=== PATIENT | female | born 1940 | race Caucasian/White ===

== ENCOUNTER → 2020-05-09 09:33 | Outpatient (CLI) | payer MEDICARE, OTHER, SELFPAY ==
--- NOTE | 2020-05-09 09:39 | US_ITS ---
STUDY: ABDOMINAL ULTRASOUND - RIGHT UPPER QUADRANT REASON FOR VISIT: Female, 79 years old ELEVATED LIVER ENZYMES TECHNIQUE: Ultrasound evaluation of the right upper quadrant was performed with real-time and static hdz-scale imaging. TECHNICAL QUALITY: Adequate. COMPARISON: Comparison is made with prior study dated 06/03/2014. FINDINGS: Liver: The liver measures 17.6 cm. There is increased echogenicity consistent with fatty infiltration. The bile ducts are within normal limits. There is hepatic color flow. The direction of portal flow is hepatopetal. There is no demonstrated mass lesion. Gallbladder: The patient is status post cholecystectomy. Common Bile Duct (C.B.D.): The common bile duct measures 6.7 mm. Pancreas: Normal size of the head, body and tail of the pancreas. There is increased echogenicity of the pancreas. There is no demonstrated pancreatic mass or cyst. Right Kidney: Normal size of the right kidney. The right kidney measures 10.9 cm x 4.4 cm x 2.9 cm. Normal renal cortex. The right cortex measures 1.0 cm. There is no demonstrated renal mass or cyst. There is no right hydronephrosis. US/Liver IMPRESSION: Diffuse fatty infiltration of the liver. Status post cholecystectomy. Electronically Signed: Brennen Blunt, at 15:23 EST , Service support ,
== END ==
PROVIDERS: PCP Family Medicine; Referring Provider Physician Assistant; Visit Provider Physician Assistant
DX: R74.01 Elevation of levels of liver transaminase levels (principal); E11.65 Type 2 diabetes mellitus with hyperglycemia
CPT/HCPCS: 76705

== ENCOUNTER → 2024-05-20 | Outpatient (CLI) | payer MEDICARE, SELFPAY ==
--- NOTE | 2024-05-20 10:30 | RAD_ITS ---
STUDY: X-RAY - LEFT KNEE REASON FOR EXAM: Female, 83 years old. PAIN IN LEFT KNEE TECHNIQUE: 3 view(s) of the knee. COMPARISON: None. FINDINGS: Normal visualized distal femur. Normal visualized proximal tibia and fibula. Normal proximal tibiofibular articulation. There is mild degenerative arthrosis of the medial femorotibial compartment. There is mild degenerative arthrosis of the lateral femorotibial compartment. Normal patellofemoral articulation. 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 The soft tissue structures are unremarkable. RAD/Knee 3 Views IMPRESSION: CPPD with mild arthrosis. Electronically Signed: Chalo Herring MD at 17:25 EST ,
== END | disposition home or self-care (01) ==
PROVIDERS: PCP Family Medicine; Referring Provider Family Medicine; Visit Provider Family Medicine
DX: M25.562 Pain in left knee (principal)
CPT/HCPCS: 73562

== ENCOUNTER 2024-08-31 19:26 | Inpatient (IN) | payer MEDICARE, SELFPAY ==
[2024-08-31] VITALS (9 sets, daily range): BP systolic 138–270; BP diastolic 50–151; PULSE 59–80; RESP 15–23; TEMP 36.6; O2SAT 97–99; BMI 39.4
--- NOTE | 2024-08-31 20:30 | EX.ED.DYSGE1 ---
HPI History of Present Illness Chief Complaint: Dizziness [facility] Medical History (Updated 08/31/24 @ 20:30 by Annika Melton) GERD (gastroesophageal reflux disease) Hypertension Diabetes Home Medications ?Medication ?Instructions ?Recorded ?Last Taken ?Type insulin glargine 100 unit/mL (3 8 unit subcut QHS 08/31/24 Unknown History mL) subcutaneous pen (Lantus Solostar U-100 Insulin) metoprolol succinate 50 mg 100 mg PO DAILY 08/31/24 Unknown History tablet,extended release 24 hr Allergy/AdvReac Type Severity Reaction Status Date / Time No Known Allergies Allergy Verified 08/31/24 19:32 Social History Smoking Status: Never smoker EXAM Physical Exam Const Vital Signs: 08/31/24 19:27 08/31/24 20:55 08/31/24 21:27 Temperature 97.8 F Temperature Source Oral Pulse Rate 66 65 Respiratory Rate 16 Blood Pressure 224/66 H 202/70 H Blood Pressure Mean 118 114 Pulse Ox 98 97 Oxygen Delivery Method Room Air Room Air 08/31/24 22:11 08/31/24 22:20 08/31/24 22:31 Temperature Temperature Source Pulse Rate 59 L 68 80 Respiratory Rate 18 18 15 Blood Pressure 270/51 H 266/71 H 168/151 H Blood Pressure Mean 124 136 156 Pulse Ox 97 99 97 Oxygen Delivery Method Room Air 08/31/24 22:33 Temperature Temperature Source Pulse Rate Respiratory Rate Blood Pressure 187/78 H Blood Pressure Mean 114 Pulse Ox Oxygen Delivery Method MDM MDM MDM Narrative Medical decision making narrative: HISTORY OF PRESENT ILLNESS: Chief complaint: Dizziness 83-year-old female history of diabetes and hypertension presents with dizziness. Also lightheaded/dizzy and diffusely weak. Notes this began earlier today. No falls or trauma. No chest pain. No shortness of breath. No palpitations. No focal weakness, slurred speech, facial drooping, incoordination. She felt she has not passed out. REVIEW OF SYSTEMS: Pertinent positives: Dizziness Pertinent negatives: Chest pain, shortness of breath, palpitation PHYSICAL EXAM: Nursing triage notes reviewed, Vital signs reviewed Constitutional: please see mdm HENT: MMM Eyes: Pupils equal round and reactive to light, Extraocular muscles intact Neck: No stridor, no JVD, full neck ROM Lungs: Clear to auscultation, No wheezing or rales. No increased work of breathing, no conversational dyspnea, no accessory muscle use, no nasal flaring. No respiratory distress noted Heart: Regular rate and rhythm, No murmurs, No rubs and No gallops, 2+ distal pulses (radial, femoral, posterior tibial) in all extremities Abdomen: Soft, there is no tenderness, rigidity, rebound or guarding, no obvious peritoneal signs, no palpable pulsatile abdominal masses, no auscultated abdominal bruit : No CVAT Extremities: No edema Neuro: Alert and oriented x3, neuro exam at baseline, cranial nerves II through XII are intact. No pain with extraocular muscle movement. There is negative test of skew. 5 of 5 strength in upper and lower extremities in flexion extension. Intact sensation to light touch in upper and lower extremity dermatomes. No truncal or extremity ataxia. No dysdiadochokinesia. 2+ reflexes in upper and lower extremities. No meningeal signs. Negative Babinski. NIH of 0. Skin: No rash or lesions noted MEDICAL DECISION MAKING: Chief Complaint: please see HPI External records reviewed: Reviewed prior imaging studies Factors affecting care: Hypertension, type 2 diabetes Social determinants of health: none History obtained from others: none Consults: none [facility] Narrative: Patient was initially hypertensive blood pressure 224/66 otherwise afebrile and nontoxic-appearing. Initial exam without focal neurologic deficits. No focal cardiopulmonary abnormalities I considered the following differential diagnosis: Endorgan damage of elevated blood pressure, ICH, ACS, arrhythmia, anemia, kidney dysfunction, CVA Patient's blood pressure continued to elevate with systolics as high as 266 so she was given 20 mg IV hydralazine given heart rate was initially in the 60s. After IV hydralazine patient blood pressure improved to 168 systolic. Patient noted she felt weak or different. Daughter noted some transient slurred speech which resolved upon my assessment. Repeat neurologic exam remained intact NIH was 0. ALL IMAGES (IF OBTAINED) HAVE BEEN PERSONALLY REVIEWED AND INTERPRETED BY MYSELF. EKG with normal sinus rhythm rate 64, normal axis, normal intervals, no STEMI CBC without leukocytosis, severe anemia, no thrombocytopenia. BMP without evidence of significant electrolyte abnormalities, no anion gap, no acute kidney injury. LFTs show no evidence of hepatobiliary pathology. High-sensitivity troponin is negative, no evidence of myocardial ischemia BNP within normal limit suggestive no heart failure CT scan without contrast showed no acute intracranial normality. The synthesis of the patient's history, physical exam, labs images suggest poorly controlled hypertension likely resulting in the patient's presentation. Decided to admit the patient given concern for poorly controlled blood pressure at home, symptomatic hypertension, hypertensive urgency as well as transient slurred speech and concern for TIA versus CVA. Discussed with hospitalist The patient and/or family, caregivers express understanding. The patient and/or family, caregivers agrees with the plan. Shared decision making: I will have a discussion with the patient and or visitors regarding risk/benefits of further testing or admission. They will be made aware of of the risk/benefits inherent in this decision they will be given the opportunity to voice understanding. Total critical care time today provided was at least 35 minutes. This excludes separately billable procedures. Critical care time (if documented) is secondary to the patient having high probability of clinically significant/life threatening deterioration in the patient's condition which required my urgent intervention. Impression: 1. Dizziness 2. Poorly controlled hypertension 3. Hypertensive Urgency Dispo: Admit This note was generated with [employer] dictation software. It may contain incorrect words, spelling, and punctuation that were not noted in review of the chart prior to signing. Lab Data Labs: Laboratory Results - last 24 hr 08/31/24 21:00 WBC 11.0 RBC 4.27 Hgb 13.1 Hct 38.5 MCV 90.2 MCH 30.7 MCHC 34.0 RDW Std Deviation 47.4 H RDW Coeff of Óscar 14.3 Plt Count 296 MPV 10.7 Immature Gran % (Auto) 0.500 Neut % (Auto) 61.5 Lymph % (Auto) 24.9 [place] % (Auto) 9.1 Eos % (Auto) 3.2 Baso % (Auto) 0.8 Absolute Neuts (auto) 6.8 Absolute Lymphs (auto) 2.74 Nucleated RBC % 0 Sodium 136 Potassium 4.2 Chloride 103 Carbon Dioxide 20.7 L Anion Gap 12 BUN 19 Creatinine 0.99 Estim Creat Clear Calc 39.57 L Est GFR (MDRD) Non-Af 57 L BUN/Creatinine Ratio 18.8 Glucose 155 H Calcium 9.1 Total Bilirubin 0.26 AST 21 ALT 26 Alkaline Phosphatase 123 H Troponin T High Sens 12 NT pro BNP II 245 Total Protein 6.6 Albumin 3.8 Globulin 2.7 Albumin/Globulin Ratio 1.4 Radiography Diagnostic Testing: Clinical Impression(s) from Imaging Studies Brain CT 08/31/24 20:46 IMPRESSION: No acute intracranial abnormality. Chronic microvascular ischemia and involutional changes. Reading Location: [facility] Discharge Plan Triage Chief Complaint: Dizziness ED Provider: Murphy Ramírez Dx/Rx/DC Orders Prescriptions: No Action metoprolol succinate 50 mg tablet extended release 24 hr 100 mg PO DAILY insulin glargine [Lantus Solostar U-100 Insulin] 100 unit/mL (3 mL) insulin pen 8 unit subcut [facility] Primary Care Provider: Kurt Vasquez Referrals: Kurt Vasquez MD [Primary Care Provider] - Print Language: Azeri
--- NOTE | 2024-08-31 20:46 | CT_ITS ---
PROCEDURE: BRAIN/HEAD WITHOUT CONTRAST 08/31/2024 REASON FOR EXAM: DIZZINESS, ELEVATED BP TECHNIQUE: Head CT without intravenous contrast. Coronal and Sagittal reconstruction series were provided. One or more dose reduction techniques were used (e.g., Automated exposure control, adjustment of the mA and/or kV according to patient size, use of iterative reconstruction technique. COMPARISON: None FINDINGS: No acute intracranial hemorrhage, mass, mass effect, midline shift or pathologic extra-axial fluid collection. Mild parenchymal atrophy with commensurate increase in CSF containing spaces. Patchy white matter hypodensities, patient demographics favor chronic microvascular ischemic changes. Paranasal sinuses and mastoid air cells are clear. The calvarium is grossly intact. CT/Brain/Head without Contrast IMPRESSION: No acute intracranial abnormality. Chronic microvascular ischemia and involutional changes. Reading [facility]
--- NOTE | 2024-08-31 20:46 | EKG12_ITS ---
Test Reason : DYSRHYTHMIA Blood Pressure : */* mmHG Vent. Rate : 64 BPM Atrial Rate : 64 BPM P-R Int : 186 ms QRS Dur : 76 ms QT Int : 406 ms P-R-T Axes : -3 37 59 degrees QTcB Int : 418 ms Normal sinus rhythm Normal ECG Confirmed by LINDA PENN, HERNANDO ([id number]), desk editor LAURY PERSAUD ([id number]) on 09/02/2024 8:34:45 AM Referred By: Confirmed By: HERNANDO MCKEON MD
[2024-08-31 21:10] LABS: Absolute Lymphocyte Count 2.74 X10^3/uL (0.83-4.51); Absolute Neutrophil Count 6.8 X10^3/uL (2.0-7.7); Basophil# 0.09 X10^3/uL; Basophil% 0.8 % (0-1); Eosinophil# 0.35 X10^3/uL; Eosinophils% 3.2 % (0-5); Hematocrit 38.5 % (37-47); Hemoglobin 13.1 g/dL (12.0-15.0); Lymphocyte # 2.74 X10^3/ul (0.83-4.51); Lymphocyte % 24.9 % (19-41); Mean Corpuscular Hgb 30.7 pg (27.0-32.0); Mean Corpuscular Volume 90.2 fL (81-99); Mean Platelet Vol. 10.7 fl (6.2-12.0); Monocyte% 9.1 % (0-10); NRBC Flagged by Analyzer 0 % (0-5); Neutrophil # 6.77 X10^3/uL (2.7-7.7); Neutrophil % 61.5 % (47-70); Platelet Count 296 K/mm3 (150-450); RBC Distribution Width CV 14.3 % (11.6-14.6); RBC Distribution Width SD 47.4 fl (35.1-43.9); Red Blood Count 4.27 M/mm3 (4.2-5.4)
[2024-08-31 21:49] LABS: ALB/GLOB Ratio 1.4 RATIO (0.9-2.4); AST(SGOT) 21 U/L (<=31); Alanine Aminotransfer ALT/SGPT 26 U/L (<=34); Albumin, Serum 3.8 g/dL (3.4-4.8); Alkaline Phosphatase 123 U/L (35-104); Anion Gap 12 (5-15); BUN 19 mg/dL (4-19); BUN/Creat Ratio 18.8 RATIO (10-20); Calcium,Total 9.1 mg/dL (7.6-11.0); Carbon Dioxide 20.7 mmol/L (21.0-32.0); Chloride 103 mmol/L (98-108); Creatinine, Serum 0.99 mg/dL (0.70-1.20); EST Glomerular Filtration Rate 57 (>60); Estimated Creatinine Clearance 39.57 ml/min (50-250); Globulin 2.7 g/dL (2.2-4.2); Glucose 155 mg/dL (70-99); Potassium 4.2 mmol/L (3.3-5.1); Pro- Brain NATRIURETIC PEPTIDE 245 pg/mL (<=1800); Protein, Total 6.6 g/dL (5.9-8.4); Sodium Level 136 mmol/L (133-145); Total Bilirubin 0.26 mg/dL (0.00-1.30)
[2024-08-31 22:10] LABS: Troponin T High Sensitivity 12 ng/L (<=14)
[2024-08-31] MEDS: hydrALAZINE 20 MG/ML Vial IV (22:14)
[2024-08-31 22:54] LABS: Bedside Glucose 141 mg/dL (74-106)
[2024-08-31 22:55] LABS: Mucous, Urine 0 SEEN /hpf (<or=2+); Red Blood Cells-Urine 0 SEEN /hpf (0-5)
[2024-08-31 22:59] LABS: Color, Urine Yellow (Yellow); Glucose, Dipstick Normal (Normal); Ketone-Dipstick Negative (Negative); Leukocyte Esterase-Dipstick Negative /ul (Negative); Nitrite-Dipstick Negative (Negative); Occult Blood-Urine Negative /ul (Negative); Protein-Dipstick Negative (Negative); Urine Bilirubin Dipstick Negative (Negative); Urine Clarity Clear (Clear); Urine Urobilinogen Normal (Normal)
[2024-08-31 23:05] LABS: Bacteria 2+ /hpf (None Seen); Squamous Epithelial Cells - UA 5-10 SEEN /hpf (5-10); White Blood Cells 0-5 SEEN /hpf (0-5)
--- NOTE | 2024-08-31 23:05 | PCM.HP.STD ---
[facility] - General General Date of Service: 08/31/24 Chief Complaint: Dizziness and Highly Elevated Blood Pressure. HPI Narrative BLAYNE MOODY, is a 83 F with a past medical history of essential hypertension; poorly-controlled on metoprolol, obesity; BMI of 39.5 this admission, DM-2; of unknown control on insulin glargine 8U at bedtime, GERD; currently not on treatment and OA who presents to [facility] ER complaining of dizziness and highly elevated blood pressure. Ms. Moody reports her acute symptoms began a few hours prior to admission with a gradual-onset of progressively worsening dizziness and lightheadedness. She also admits to diffuse generalized weakness with patient recording her blood pressure up to 270/51 mmHg so she decided to come in for further evaluation and treatment. She states that her blood pressure has been poorly controlled for weeks with recent increase in her dose of metoprolol without subsequent improvement. She denies associated headache, focal neurologic deficits, truncal ataxia, slurred speech, chest pain, palpitations, rash, other recent illness, near-syncope, syncope or fall. In the ER she was diagnosed with Hypertensive Emergency and she was subsequently treated with 1 dose of 20 mg of IV hydralazine with subsequent slurred speech and lethargy after her blood pressure dropped from 168 mmHg systolic to 138/50 mmHg suspicious for possible 'watershed infarct' due to rapid decrease in blood pressure. She was then admitted to the PCU under observation status for ongoing care for a stay that is expected to be less than 2 midnights. [facility] Medical History GERD (gastroesophageal reflux disease) Hypertension Diabetes Home Medications ?Medication ?Instructions ?Recorded ?Last Taken ?Type insulin glargine 100 unit/mL (3 8 unit subcut QHS 08/31/24 Unknown History mL) subcutaneous pen (Lantus Solostar U-100 Insulin) metoprolol succinate 50 mg 100 mg PO DAILY 08/31/24 Unknown History tablet,extended release 24 hr Allergy/AdvReac Type Severity Reaction Status Date / Time No Known Allergies Allergy Verified 08/31/24 19:32 Social History Smoking Status: Never smoker ROS ROS Narrative Review of Systems: Constitutional: Patient admits to lightheadedness, dizziness and diffuse generalized weakness but she denies fever or chills. Eyes: Patient denies changes in vision or discharge from eyes. ENT: Patient denies runny nose, sore throat or ear pain. Resp: Patient denies shortness of breath or cough. CV: Patient denies chest pain, palpitations, heart racing or lower extremity edema. GI: Patient denies abdominal pain, nausea, vomiting, diarrhea or constipation. : Patient denies dysuria, hematuria or urinary frequency. MSK: Patient admits to generalized weakness but she denies arthralgias or myalgias. Skin: Patient denies rash, abscess, wounds or jaundice. Psych: Patient denies symptoms of uncontrolled depression or anxiety. Neuro: Patient admits to dizziness, lightheadedness and generalized weakness with subsequent slurred speech after rapid decrease in blood pressure as per HPI. She denies headache or paresthesias. Allergies: Patient denies lip swelling, tongue swelling or urticaria. Hematology: Patient denies easy bleeding or easy bruisability. Endocrinology: Patient denies polyuria, polydipsia, polyphagia or heat/cold intolerance. 14 point ROS otherwise negative except for positives noted above in HPI. Vital Signs Vital Signs Vital Signs: 08/31/24 19:27 08/31/24 20:55 08/31/24 21:27 Temperature 97.8 F Temperature Source Oral Pulse Rate 66 65 Respiratory Rate 16 Blood Pressure 224/66 H 202/70 H Blood Pressure Mean 118 114 Pulse Ox 98 97 Oxygen Delivery Method Room Air Room Air 08/31/24 22:11 08/31/24 22:20 08/31/24 22:31 Temperature Temperature Source Pulse Rate 59 L 68 80 Respiratory Rate 18 18 15 Blood Pressure 270/51 H 266/71 H 168/151 H Blood Pressure Mean 124 136 156 Pulse Ox 97 99 97 Oxygen Delivery Method Room Air 08/31/24 22:33 08/31/24 22:50 08/31/24 23:04 Temperature 97.8 F Temperature Source Pulse Rate 80 79 Respiratory Rate 15 23 H Blood Pressure 187/78 H 187/78 H 138/50 H Blood Pressure Mean 114 114 79 Pulse Ox 97 Oxygen Delivery Method Weight Weight: 176 lb 2.389 oz Body Mass Index (BMI) 39.4 Results Medical Records Data Attestation: I reviewed the patient's medical records Lab / Micro Data Attestation: I reviewed the patient's lab results. 08/31/24 21:00 08/31/24 21:00 Labs: Laboratory Results - last 24 hr 08/31/24 21:00: WBC 11.0, RBC 4.27, Hgb 13.1, Hct 38.5, MCV 90.2, MCH 30.7, MCHC 34.0, RDW Std Deviation 47.4 H, RDW Coeff of Óscar 14.3, Plt Count 296, MPV 10.7, Immature Gran % (Auto) 0.500, Neut % (Auto) 61.5, Lymph % (Auto) 24.9, [place] % (Auto) 9.1, Eos % (Auto) 3.2, Baso % (Auto) 0.8, Absolute Neuts (auto) 6.8, Absolute Lymphs (auto) 2.74, Nucleated RBC % 0, Sodium 136, Potassium 4.2, Chloride 103, Carbon Dioxide 20.7 L, Anion Gap 12, BUN 19, Creatinine 0.99, Estim Creat Clear Calc 39.57 L, Est GFR (MDRD) Non-Af 57 L, BUN/Creatinine Ratio 18.8, Glucose 155 H, Calcium 9.1, Total Bilirubin 0.26, AST 21, ALT 26, Alkaline Phosphatase 123 H, Troponin T High Sens 12, NT pro BNP II 245, Total Protein 6.6, Albumin 3.8, Globulin 2.7, Albumin/Globulin Ratio 1.4 08/31/24 22:36: POC Glucose 141 H 08/31/24 22:51: Urine Color Yellow, Urine Clarity Clear, Urine pH 6.0, Ur Specific [place] 1.010, Urine Protein Negative, Urine Glucose (UA) Normal, Urine Ketones Negative, Urine Occult Blood Negative, Urine Nitrite Negative, Urine Bilirubin Negative, Urine Urobilinogen Normal, Ur Leukocyte Esterase Negative, Urine RBC 0 SEEN, Urine WBC 0-5 SEEN, Ur Squamous Epith Cells 5-10 SEEN, Urine Bacteria 2+, Urine Mucus 0 SEEN Imaging Radiology Impression Brain CT 08/31/24 20:46 IMPRESSION: No acute intracranial abnormality. Chronic microvascular ischemia and involutional changes. [facility] Assessment & Plan Assessment/Plan (1) Hypertensive emergency: (2) Dizziness: (3) Generalized weakness: (4) Slurred speech: (5) TIA on medication: (6) Poorly-controlled hypertension: (7) Obesity (BMI 30-39.9): (8) Diabetes mellitus, type 2: QUALIFIERS: Diabetes mellitus complication detail: with other neurological complication Diabetes mellitus complication status: with neurologic complications Diabetes mellitus terminal superintendent insulin use: with terminal superintendent use Qualified Code(s): E11.49 - Type 2 diabetes mellitus with other diabetic neurological complication; Z79.4 - terminal superintendent (current) use of insulin PLAN: Plan 1. Hypertensive Emergency; evidenced by elevated blood pressure of 270/51 mmHg noted shortly after admission with associated dizziness and diffuse generalized weakness - Admit to PCU under observation status. Serialize troponin. Check echocardiogram to evaluate LVEF. Check TSH, UDS, B12, Folate and Lipid Profile. Give meclizine as needed dizziness. Give acetaminophen as needed for pain or fever. 2. Possible TIA vs 'watershed infarct' with slurred speech after rapid drop in blood pressure complicating #1 - Check MRI of the brain to evaluate for possible CVA. Check carotid Doppler to evaluate for stenosis. Start treatment with baby aspirin and statin. Finally, we will consult [facility] to see this patient for further recommendations with help appreciated in advance. 3. Essential Hypertension; poorly-controlled on metoprolol as outpatient compounding #1 & #2 - Noted with patient potentially having secondary hypertension which will need to be worked up if her blood pressure remains difficult to control. 4. Obesity; BMI of 39.5 this admission adding to the burden of disease outlined from #1 - #3 - Weight loss will be recommended. We will screen for suspected IRVING. Check TSH. This complicates her case and may hamper recovery. 5. DM-2; of unknown control on insulin glargine 8U at bedtime - Cut insulin glargine to 5 units SQ at bedtime. Give ADA diet plus lowest-intensity SSI. Check hemoglobin A1c to objectively evaluate quality of diabetic control. 6. GERD; currently not on treatment - Start PPI if symptoms develop. 7. OA - Give acetaminophen prn. 8. DVT prophylaxis - Heparin 5,000U sq BID plus SCD's. Total time: Approximately (but not less than) 70 minutes. Charges/Coding Visit Charges OBSV E&M: 50007 Observ/hosp same date L2
--- NOTE | 2024-08-31 23:41 | ECHOCS_ITS ---
Reason For Study Reason For Study: HTN Procedure This was a 2D Doppler, Color Flow transthoracic echocardiogram. The study was technically difficult. Contrast injection was performed. Exam performed portable in patient room. Left Ventricle Normal LV size. Left ventricular systolic function is normal. The left ventricular ejection fraction is 70 %. Stage 1 diastolic dysfunction. No regional wall motion abnormalities noted. Right Ventricle Normal RV size. Normal systolic function. Atria Normal left atrium. Normal right atrium. Mitral Valve Normal mitral valve. Tricuspid Valve Normal tricuspid valve. Aortic Valve Trisinus/trileaflet aortic valve. Mild (1+) aortic valve insufficiency. Pulmonic Valve Normal pulmonic valve. Great Vessels Normal aortic root. The pulmonary artery is normal size. Inferior vena cava collapse with respiration. Pericardium/Pleural No pericardial effusion. Medication Diluted definity 1ml given slow IV push to enhance endocardial definition. MMode/2D Measurements & Calculations LVIDd: 4.5 cm IVSd: 0.83 cm LAV(MOD- bp): 31.5 ml LVIDs: 2.7 cm LVPWd: 0.87 cm RVDd: 3.4 cm FS: 41.0 % LAV(MOD- bp) Indexed: 18.9 ml/m2 LAV(MOD- sp2): 33.9 ml LAV(MOD- sp4): 29.4 ml SV(MOD-sp4): 49.4 ml SV(sp4- el): 52.2 ml LVAd ap4: 26.5 cm2 LVLd ap4: 7.4 cm SI(MOD-sp4): 29.6 ml/m2 EDV(MOD-sp4): 76.7 ml EDV(sp4-el): 80.1 ml LVAs ap4: 13.2 cm2 LVLs ap4: 5.3 cm ESV(MOD-sp4): 27.3 ml ESV(sp4-el): 27.9 ml EF(MOD-sp4): 64.5 % EF(sp4-el): 65.2 % LA dimension(2D): 3.8 cm LA A4 area: 12.9 cm2 RA A4 area: 12.6 cm2 Time Measurements MV dec time: 0.32 sec Doppler Measurements & Calculations MV E max edison: 65.7 cm/sec Lat Peak E' Edison: 8.5 cm/sec Med Peak E' Edison: 7.9 cm/sec MV A max edison: 110.1 cm/sec E/E' lat: 7.7 E/E' med: 8.4 MV E/A: 0.60 MV V2 max: 116.5 cm/sec MV P1/2t max edison: 83.5 cm/sec Ao V2 max: 133.4 cm/sec MV max P.4 mmHg MV P1/2t: 95.5 msec Ao max P.1 mmHg MV V2 mean: 57.3 cm/sec MV dec slope: 256.1 cm/sec2 MV mean P.6 mmHg MV V2 VTI: 29.4 cm MVA(P1/2t): 2.3 cm2 AI max edison: 403.8 cm/sec LV V1 max: 110.3 cm/sec AI max P.2 mmHg LV V1 max P.9 mmHg AI dec slope: 233.7 cm/sec2 LV V1 mean P.9 mmHg AI P1/2t: 506.0 msec LV V1 mean: 81.6 cm/sec LV V1 VTI: 27.2 cm ECHO/Echo Complete W/ Contrast Interpretation Summary Normal LV size. Left ventricular systolic function is normal. The left ventricular ejection fraction is 70 %. Stage 1 diastolic dysfunction. Mild (1+) aortic valve insufficiency. Contrast injection was performed. Ordering Physician: Severiano Ibarra Performed By: Jer Valenzuela RCS
--- NOTE | 2024-08-31 23:41 | MRI_ITS ---
PROCEDURE: BRAIN WITHOUT CONTRAST (MRIBR), 09/01/2024 REASON FOR EXAM: HYPERTENSIVE EMERGENCY WITH DIZZINESS COMPARISON: CT 08/31/2024 TECHNIQUE: Multisequence multiplanar MRI brain was performed without intravenous contrast. Contrast: None. FINDINGS: Cerebrum: Punctate focus of restricted diffusion likely an acute infarct in the high RIGHT frontal cortex with associated T2/FLAIR signal abnormality. No appreciable intracranial hemorrhage or mass. Mild presumed chronic microvascular ischemic white matter changes. Moderate diffuse cerebral volume loss. Cerebellum: Unremarkable. Brainstem: Unremarkable. Ventricles/extra-axial spaces: Age-appropriate appearance. Major flow voids: Grossly unremarkable within limits of nondedicated technique. Paranasal sinuses: Unremarkable. Scalp/calvarium: Hyperostosis frontalis. Orbits: Bilateral cataract surgery. Other: None. MRI/Brain without Contrast IMPRESSION: 1. Punctate high RIGHT frontal acute infarct. No mass-effect or appreciable he morrhagic conversion. 2. Additional description as above. Reading Location: [id number]
--- NOTE | 2024-08-31 23:41 | CDU_ITS ---
Reason For Study Reason For Study: Stenosis Rt. Velocities/BP Lt. Velocities/BP Prox CCA 84.7/7.9 cm/sec. Prox CCA 111.4/12.7 cm/sec. Mid CCA 63.4/13.0 cm/sec. Mid CCA 90.7/18.2 cm/sec. Dist CCA 48.6/11.8 cm/sec. Dist CCA 64.3/13.8 cm/sec. Prox ICA 529.1/160.7 cm/sec. Prox ICA 110.4/13.8 cm/sec. Mid ICA 177.7/12.9 cm/sec. Mid ICA 79.0/23.7 cm/sec. Dist ICA 82.7/27.3 cm/sec. Dist ICA 59.3/13.8 cm/sec. Rt. ICA/CCA = 8.3. Lt. ICA/CCA = 1.2. Prox ECA 188.2/4.1 cm/sec. Prox ECA 241.3/0.0 cm/sec. Rt. Vert. 61.2/11.6 cm/sec. Lt. Vert. 70.0/9.7 cm/sec. Right Extracranial There is heterogeneous, smooth atherosclerotic plaque noted in the right common carotid artery. There is heterogeneous, irregular atherosclerotic plaque noted in the right internal carotid artery. There is heterogeneous, irregular atherosclerotic plaque noted in the right external carotid artery. Antegrade flow is noted in the right vertebral artery. Left Extracranial There is heterogeneous, smooth atherosclerotic plaque noted in the left common carotid artery. There is heterogeneous, irregular atherosclerotic plaque noted in the left internal carotid artery. There is heterogeneous, irregular atherosclerotic plaque noted in the left external carotid artery. Antegrade flow is noted in the left vertebral artery. Procedure Carotid Duplex 35298. This is a Carotid Duplex examination using B-mode, color flow and specral Doppler. Exam performed portable in patient room. Preliminary report given to MARITZA Alvarez Charge Nurse. VL/Carotid Duplex Ultrasound Interpretation Summary Severe (>70%) stenosis right extracranial internal carotid. Mild (<50%) stenosis left extracranial internal carotid. Patent and antegrade vertebrals bilaterally. Ordering Physician: Severiano Ibarra Performed By: Na Isaac RVT
[2024-08-31 23:49] LABS: Troponin T High Sens 2 HR 13 ng/L (<=14)
[2024-09-01] VITALS (10 sets, daily range): BP systolic 145–222; BP diastolic 43–87; PULSE 64–115; RESP 16–20; TEMP 36.1–36.9; O2SAT 95–99; BMI 38.9
[2024-09-01 00:21] LABS: Hemoglobin A1c 7.8 % (<=5.6)
[2024-09-01] MEDS: Aspirin 81 MG TAB.CHEW PO ×2 (00:54→08:58)
[2024-09-01] MEDS: Atorvastatin Calcium 40 MG Tablet PO ×2 (00:54→23:02)
[2024-09-01 01:11] LABS: Alcohol, Blood (Medical)-Serum < 10.1 mg/dL (<=10.0)
[2024-09-01 01:39] LABS: Troponin T High Sens 4 HR 13 ng/L (<=14)
[2024-09-01 01:53] LABS: Amphetamine Urine NEGATIVE (<1000 ng/mL); Barbiturate Urine NEGATIVE (< 200 ng/mL); Benzodiazepine Urine NEGATIVE (< 200 ng/mL); Buprenorphine Urine NEGATIVE (< 200 ng/mL); Cocaine Urine NEGATIVE (< 300 ng/mL); Fentanyl, Urine NEGATIVE; Methadone Urine NEGATIVE (< 300 ng/mL); Opiates Urine NEGATIVE (< 300 ng/mL); Oxycodone, Urine NEGATIVE (< 100 ng/mL); PCP Urine NEGATIVE (< 25 ng/mL); THC Urine NEGATIVE (< 50 ng/mL)
[2024-09-01 07:00] LABS: Bedside Glucose 144 mg/dL (74-106)
[2024-09-01 07:19] LABS: Vitamin B12 421 pg/mL (180-914)
[2024-09-01 07:47] LABS: Cholesterol 205 mg/dL (<=200); High Density Lipoprotein 47 mg/dL; Low Density Lipoprotein Calc. 123 mg/dL; Triglycerides 177 mg/dL; Very Low Density Lipoprotein 35 mg/dL (5-40); cholesterol:hdl ratio screen 4.38
--- NOTE | 2024-09-01 08:14 | PCM.PN.HOSP ---
Reason for Visit Reason for Visit: Dizziness and Highly Elevated Blood Pressure Subjective Subjective Mrs. Underwood is an 83-year-old white female who presents emergency department at [facility] on 08/31/2024 with a chief complaint of dizziness and elevated blood pressure. Symptoms were acute and started a few hours prior to presentation and were gradual onset. She also admitted to generalized diffuse weakness. Blood pressure at home was 270/51 so she decided come to emergency department for further evaluation. She stated on presentation her blood pressure has been poorly controlled for weeks with recent increased doses of her metoprolol but she is not on any other medications besides her metoprolol. She had no focal deficits on presentation. Vital signs emergency department on presentation showed a temperature 97.8, heart rate was 68, respiratory rate was 16, blood pressure was 224/66 and pulse ox was 98% room air. Her CBC was unremarkable. Her chemistry panel was overtly unremarkable. Blood glucose was 155 and patient is a known diabetic. Hemoglobin A1c was 7.8. Liver functions were normal. Troponins were normal x 3. BNP was normal. Total cholesterol 205 with an LDL of 123 and HDL 47. B12, TSH, and folate were all within normal limits. CT of the brain on admission was unremarkable for any acute findings but did show chronic microvascular changes. With her blood pressure being markedly elevated and symptoms concerning to admitted with hypertensive emergency from stroke workup was pursued is after blood pressure cuff emergency department she developed some neurological changes. MRI of the brain was done after admission and showed a punctate high right frontal lobe infarct with no mass effect or appreciated hemorrhagic transformation. CTA was not obtained on admission and a carotid duplex was ordered. Carotid duplex showed severe (greater than 70%) stenosis in the right extracranial internal carotid artery and mild less than 50% stenosis in the left extracranial internal carotid artery with patent and antegrade flow in the vertebrals bilaterally. With the stroke finding on the right side and the carotid abnormalities on the right side vascular surgery was consulted and a CTA of the head neck was performed. Current recommendations include dual antiplatelet therapy with aspirin and Plavix and high intensity dose statin along with outpatient follow-up for possible intervention. This showed atherosclerotic calcification anterior and posterior intracranial circulation most prominent at the right ICA bifurcation with resultant luminal narrowing. Echocardiogram showed an EF of 70% with stage I diastolic dysfunction and mild aortic valve insufficiency. Patient states she feels so much better than she came in and she is at least 50% better if not more improved since presentation. No complaints at this time. We discussed CODE STATUS she desires not to be resuscitated in the event of arrest cardiac or pulmonary. Objective Data Objective Data Vital Signs: Vital Signs Temp Pulse Resp BP Pulse Ox O2 Del Method FiO2 98 F 66 16 159/43 H 98 Room Air 21 09/01/24 04:00 09/01/24 04:00 09/01/24 04:00 09/01/24 04:00 09/01/24 04:00 09/01/24 04:00 09/01/24 01:11 Oxygen Delivery Method Room Air Weight: 78.7 kg Body Mass Index (BMI) 38.9 Lab / Micro Data 08/31/24 21:00 08/31/24 21:00 Labs: Laboratory Results - last 24 hr 08/31/24 21:00: WBC 11.0, RBC 4.27, Hgb 13.1, Hct 38.5, MCV 90.2, MCH 30.7, MCHC 34.0, RDW Std Deviation 47.4 H, RDW Coeff of Óscar 14.3, Plt Count 296, MPV 10.7, Immature Gran % (Auto) 0.500, Neut % (Auto) 61.5, Lymph % (Auto) 24.9, [place] % (Auto) 9.1, Eos % (Auto) 3.2, Baso % (Auto) 0.8, Absolute Neuts (auto) 6.8, Absolute Lymphs (auto) 2.74, Nucleated RBC % 0, Sodium 136, Potassium 4.2, Chloride 103, Carbon Dioxide 20.7 L, Anion Gap 12, BUN 19, Creatinine 0.99, Estim Creat Clear Calc 39.57 L, Est GFR (MDRD) Non-Af 57 L, BUN/Creatinine Ratio 18.8, Glucose 155 H, Hemoglobin A1c 7.8, Calcium 9.1, Total Bilirubin 0.26, AST 21, ALT 26, Alkaline Phosphatase 123 H, Troponin T High Sens 12, NT pro BNP II 245, Total Protein 6.6, Albumin 3.8, Globulin 2.7, Albumin/Globulin Ratio 1.4 08/31/24 22:36: POC Glucose 141 H 08/31/24 22:51: Urine Color Yellow, Urine Clarity Clear, Urine pH 6.0, Ur Specific [place] 1.010, Urine Protein Negative, Urine Glucose (UA) Normal, Urine Ketones Negative, Urine Occult Blood Negative, Urine Nitrite Negative, Urine Bilirubin Negative, Urine Urobilinogen Normal, Ur Leukocyte Esterase Negative, Urine RBC 0 SEEN, Urine WBC 0-5 SEEN, Ur Squamous Epith Cells 5-10 SEEN, Urine Bacteria 2+, Urine Mucus 0 SEEN, Urine Opiates Screen NEGATIVE, U Buprenorphine Qual NEGATIVE, Ur Oxycodone Screen NEGATIVE, Urine Methadone Screen NEGATIVE, Urine Fentanyl Screen NEGATIVE, Ur Barbiturates Screen NEGATIVE, Ur Phencyclidine Scrn NEGATIVE, Ur Amphetamines Screen NEGATIVE, U Benzodiazepines Scrn NEGATIVE, Urine Cocaine Screen NEGATIVE, U Cannabinoids Screen NEGATIVE 08/31/24 23:14: Ethyl Alcohol < 10.1 08/31/24 23:19: Troponin T Hi Sens 2 Hr 13, TSH 2.070 09/01/24 00:53: Troponin T Hi Sens 4Hr 13, Triglycerides Cancelled 09/01/24 00:53: Triglycerides Cancelled, Cholesterol Cancelled 09/01/24 00:53: Cholesterol Cancelled, LDL Cholesterol, Calc Cancelled 09/01/24 00:53: LDL Cholesterol, Calc Cancelled, VLDL Cholesterol Cancelled 09/01/24 00:53: VLDL Cholesterol Cancelled, HDL Cholesterol Cancelled 09/01/24 00:53: HDL Cholesterol Cancelled, Cholesterol/HDL Ratio Cancelled 09/01/24 00:53: Cholesterol/HDL Ratio Cancelled, Vitamin B12 Cancelled, Serum Folate 10.10 09/01/24 05:45: Triglycerides 177, Cholesterol 205 H, LDL Cholesterol, Calc 123, VLDL Cholesterol 35, HDL Cholesterol 47, Cholesterol/HDL Ratio 4.38, Vitamin B12 421 09/01/24 06:26: POC Glucose 144 H Radiography Diagnostic Testing: Radiology Impression Brain CT 08/31/24 20:46 IMPRESSION: No acute intracranial abnormality. Chronic microvascular ischemia and involutional changes. Reading Location: [facility] Physical Exam Const alert, oriented x3, no apparent distress and well nourished; Negative for average body habitus Constitutional Narrative: Very pleasant, obese, white female, sitting up in a chair at the bedside, family is at the bedside, patient appears comfortable, nontoxic HEENT head/scalp atraumatic and moist oral mucous membranes HEENT Narrative: Mallampati 3, no thrush Head and Scalp: normocephalic Eyes conjunctivae normal Eyes Narrative: No scleral icterus Neck supple Neck Narrative: Trachea midline Resp normal respiratory effort, no retractions, no use of accessory muscles and clear to auscultation bilaterally Auscultation: Negative for rales, rhonchi or wheezes Cardio regular rate, regular rhythm, S1 normal heart sound, S2 normal heart sound, no murmurs, no rub, no gallops and no clicks GI normal to inspection, nondistended, normoactive bowel sounds, soft to palpation and non-tender Extremity Extremity Narrative: Trace bilateral lower extremity edema, no cyanosis or clubbing, 2+ pedal and radial pulses Skin no jaundice, no petechiae and no mottling Neuro oriented x3, No no focal motor deficits and no sensory deficits noted Neuro Narrative: Mild left lower extremity weakness noted with a little bit of drift, upper extremities within normal limits, mild limb ataxia on the left Coordination / Balance: [id number] test normal; Negative for [id number] test normal Speech: speech normal Psych affect normal Psych Narrative: Very pleasant, interacts appropriately Assessment & Plan Assessment/Plan (1) CVA (cerebral vascular accident): PLAN: Plan Acute right frontal lobe stroke secondary to hypertensive emergency -Still allow for some permissive hypertension with goal blood pressure between 180 and 200. -Will start Coreg 12.5 mg daily as this should better regulate blood pressure than metoprolol -Add amlodipine 5 mg daily and continue to reassess -Continue aspirin 81 mg daily -Start Plavix 75 mg daily -Continue atorvastatin 40 mg daily -Hemoglobin A1c was 7.8 so we will increase basal insulin to 10 units and may need to consider oral agents with metformin at discharge -Total cholesterol is 205 with an LDL of 123 and HDL of 47 -PT/OT following -Consult vascular surgery due to significant right-sided carotid stenosis -Neurology is following and agrees with current plan Hypertensive emergency -Start Coreg 12.5 mg daily -Start amlodipine 5 mg daily -Blood pressure currently should be between 180 and 200 -PRNs available Hyperlipidemia -LDL is above goal of 70 -Current LDL is 123 -Statin initiated per stroke protocol Bilateral carotid artery stenosis right greater than left -Given right sided stroke and critical stenosis on the right vascular surgery consulted -Dual antiplatelet therapy -Statin -Outpatient referral for probable intervention in the future DM-2 -Hemoglobin A1c is 7.8 -Increase basal insulin to 10 units -Will likely start metformin 500 mg p.o. twice daily at discharge Obesity -BMI is 38.9 -Recommend weight loss Complicates treatment, prognosis, outcomes DVT prophylaxis -Continue subcu heparin twice daily CODE STATUS -After discussion with patient she would like to be DNR CCA with no intubation-order placed Charges/Coding Visit Charges Inpatient E&M: 38993 [facility] [[email or web address]] Hosp L3
[2024-09-01] MEDS: Heparin Injection (Vial) 5,000 UNIT/ML VIAL 5000 UNIT SC ×2 (08:58→23:02)
--- NOTE | 2024-09-01 13:53 | CASEMGMT ---
SW completed a PHQ9 with patient as she had a Stroke. Patient scored a 0 which indicates minimal depression. Patient denied any need for counseling resources. Mary CUETO
--- NOTE | 2024-09-01 14:00 | CT_ITS ---
PROCEDURE: CTA HEAD AND NECK W/ CONTRAST 09/01/2024 REASON FOR EXAM: CVA, R CAROTID STENOSIS TECHNIQUE: CTA imaging of the head and neck from the aortic arch to the skull vertex with intravenous contrast. Coronal and Sagittal reconstruction series were provided. 3D, 3D post processing, 3D reconstructions, Maximum intensity projection (MIPs) Volume rendering and Shaded surface rendering was provided. CONTRAST: Omnipaque 350 VOLUME: 100 mL Not Provided Gauge IV One or more dose reduction techniques were used (e.g., Automated exposure control, adjustment of the mA and/or kV according to patient size, use of iterative reconstruction technique). # of known CTs in the past 12 months: 0 # of known Cardiac Nuclear Medicine Studies in the past 12 months: 0 COMPARISON: None FINDINGS: Aortic Arch: Three-vessel arch branch anatomy. Atherosclerotic calcification of the aortic arch without hemodynamically significant stenosis. Brachiocephalic and Subclavians: Atherosclerotic calcification of the proximal brachiocephalic arteries, without hemodynamically significant stenosis. RIGHT Carotid: Right CCA: No significant atherosclerotic calcification Right ICA: [id number] atherosclerotic calcified and noncalcified plaque at the bifurcation and proximal cervical ICA (series 2 image 187) Maximum stenosis (NASCET): 65 % Right ECA: Unremarkable. LEFT Carotid: Left CCA: No significant atherosclerotic calcification. Left ICA: Mild calcified and noncalcified plaque at the bifurcation and proximal ICA without hemodynamically significant stenosis. Maximum stenosis (NASCET): 15 % Left ECA: Unremarkable. Vertebrals: Codominant. Arise from the subclavians. Both vertebrals form the basilar. RIGHT Vertebral: Unremarkable. LEFT Vertebral: Unremarkable. Anatomy: [place] anatomy is normal. Aneurysm or avm: No intracranial aneurysms or large vascular malformations are identified. Anterior cerebral arteries: Unremarkable: Middle cerebral arteries: Atherosclerotic calcification of the bilateral distal ICAs and carotid siphons, without hemodynamically significant stenosis. Mild focal stenosis at the proximal right M1 (series 2, image 327). Mild diffuse caliber left M1. No evidence of acute occlusion. No aneurysm. Basilar artery: Unremarkable. Posterior cerebral arteries: Unremarkable. Other major branches of the posterior circulation: Unremarkable. Major venous structures: Other findings: Neck: 3.5 cm inferior right thyroid lobe soft tissue mass (series 2, image 57). Lungs: Lung apices are clear. Bones: Multilevel degenerative changes of the cervicothoracic spine. CT/CTA Head AND Neck W/ Contrast IMPRESSION: Atherosclerotic calcification anterior and posterior intracranial circulation a s described above, most prominent at the right ICA bifurcation with resultant luminal narrowing. No evidence of acute occlusion, dissection or aneurysm Reading Location: [facility]
--- NOTE | 2024-09-01 14:27 | CON.PCM.SX_ITS ---
Assessment & Plan Assessment/Plan (1) CVA (cerebral vascular accident): (2) Stenosis of right carotid artery: PLAN: Plan R hemispheric infarct on MRI. Reviewed CTA images, R ICA 75% stenosis by NASCET which correlates to carotid duplex findings. Surgical intervention is recommended; given her stroke would plan to coordinate on an outpatient basis in the next 2-4 weeks. Will need to ensure that her hypertension is better controlled prior to surgical intervention. This was discussed with patient and her family at bedside and all questions/concerns were addressed. Recommend DAPT with ASA 81mg daily and Plavix 75mg daily. Recommend high- intensity statin. Plan for outpatient follow-up in the office next week. HPI Consult Data Date of Consult: 09/02/24 HPI Narrative HPI Narrative: BLAYNE MOODY, is a 83 F who presented to the [facility] ER after an episode of darkening of her vision (both eyes), presyncope, and feeling off; in the ER she was found to have hypertensive emergency with systolic BP as high as 266 mmHg. After receiving a dose of IV hydralazine patient's daughter observed an episode of slurred speech, patient reports this lasted less than an hour. She was admitted for stroke workup and BP management. She had Brain MRI which revealed acute punctate R frontal lobe infarct. She had carotid duplex which revealed R ICA stenosis >70% with max PSV in the proximal ICA 529/160 cm/s. Head and Neck CTA was then ordered. I saw patient resting in bed with multiple family members at bedside. She and they agreed that she is back to her baseline; no persistent slurred speech, no facial droop, moving all extremities, no vision changes, no sensory deficits. She denies any prior history of CVA or TIA. She also denies any history of CAD/CHF/prior PCI, COPD/asthma, CKD, prior vascular surgical interventions. [facility] Medical History GERD (gastroesophageal reflux disease) Hypertension Diabetes Home Medications ?Medication ?Instructions ?Recorded ?Last Taken ?Type insulin glargine 100 unit/mL (3 8 unit subcut QHS 01/17 Unknown History mL) subcutaneous pen (Lantus Solostar U-100 Insulin) metoprolol succinate 50 mg 100 mg PO DAILY 08/31/24 Un known History tablet,extended release 24 hr Allergy/AdvReac Type Severity Reaction Status Date / Time No Known Allergies Allergy Verified 08/31/24 19:32 Social History Smoking Status: Never smoker Physical Exam Const alert, oriented x3 and no apparent distress General Appearance: cooperative and comfortable HEENT normocephalic, head/scalp atraumatic and external nose normal Eyes EOMs intact bilaterally General Eye: normal appearance of both eyes Neck General: normal visual inspection and trachea midline Resp normal respiratory effort, no retractions and no use of accessory muscles Effort and Inspection: able to speak in complete sentences; Negative for labored, grunting or stridor Cardio regular rate and regular rhythm Extremity normal to inspection and no clubbing, cyanosis or edema Skin no rashes or lesions noted Trauma: no lacerations or abrasions Neuro oriented x3, CN's II-XII intact bilaterally, moves all extremities, no focal motor deficits and no sensory deficits noted Speech: speech normal Psych mental status grossly normal Appearance: grossly normal Attitude: calm and engaged Activity / Motor Behavior: appropriate eye contact Speech: normal speech Mood & Affect: euthymic mood Judgement: judgement good Lab / Micro Data 08/31/24 21:00 08/31/24 21:00 Labs: Laboratory Results - last 24 hr 08/31/24 21:00: WBC 11.0, RBC 4.27, Hgb 13.1, Hct 38.5, MCV 90.2, MCH 30.7, MCHC 34.0, RDW Std Deviation 47.4 H, RDW Coeff of Óscar 14.3, Plt Count 296, MPV 10.7, Immature Gran % (Auto) 0.500, Neut % (Auto) 61.5, Lymph % (Auto) 24.9, [place] % (Auto) 9.1, Eos % (Auto) 3.2, Baso % (Auto) 0.8, Absolute Neuts (auto) 6.8, Absolute Lymphs (auto) 2.74, Nucleated RBC % 0, Sodium 136, Potassium 4.2, Chloride 103, Carbon Dioxide 20.7 L, Anion Gap 12, BUN 19, Creatinine 0.99, E stim Creat Clear Calc 39.57 L, Est GFR (MDRD) Non-Af 57 L, BUN/Creatinine Ratio 18.8, Glucose 155 H, Hemoglobin A1c 7.8, Calcium 9.1, Total Bilirubin 0.26, AST 21, ALT 26, Alkaline Phosphatase 123 H, Troponin T High Sens 12, NT pro BNP II 245, Total Protein 6.6, Albumin 3.8, Globulin 2.7, Albumin/Globulin Ratio 1.4 08/31/24 22:36: POC Glucose 141 H 08/31/24 22:51: Urine Color Yellow, Urine Clarity Clear, Urine pH 6.0, Ur Specific [place] 1.010, Urine Protein Negative, Urine Glucose (UA) Normal, Urine Ketones Negative, Urine Occult Blood Negative, Urine Nitrite Negative, Urine Bilirubin Negative, Urine Urobilinogen Normal, Ur Leukocyte Esterase Negative, Urine RBC 0 SEEN, Urine WBC 0-5 SEEN, Ur Squamous Epith Cells 5-10 SEEN, Urine Bacteria 2+, Urine Mucus 0 SEEN, Urine Opiates Screen NEGATIVE, U Buprenorphine Qual NEGATIVE, Ur Oxycodone Screen NEGATIVE, Urine Methadone Screen NEGATIVE, Urine Fentanyl Screen NEGATIVE, Ur Barbiturates Screen NEGATIVE, Ur Phencyclidine Scrn NEGATIVE, Ur Amphetamines Screen NEGATIVE, U Benzodiazepines Scrn NEGATIVE, Urine Cocaine Screen NEGATIVE, U Cannabinoids Screen NEGATIVE 08/31/24 23:14: Ethyl Alcohol < 10.1 08/31/24 23:19: Troponin T Hi Sens 2 Hr 13, TSH 2.070 09/01/24 00:53: Troponin T Hi Sens 4Hr 13, Triglycerides Cancelled 09/01/24 00:53: Triglycerides Cancelled, Cholesterol Cancelled 09/01/24 00:53: Cholesterol Cancelled, LDL Cholesterol, Calc Cancelled 09/01/24 00:53: LDL Cholesterol, Calc Cancelled, VLDL Cholesterol Cancelled 09/01/24 00:53: VLDL Cholesterol Cancelled, HDL Cholesterol Cancelled 09/01/24 00:53: HDL Cholesterol Cancelled, Cholesterol/HDL Ratio Cancelled 09/01/24 00:53: Cholesterol/HDL Ratio Cancelled, Vitamin B12 Cancelled, Serum Folate 10.10 09/01/24 05:45: Triglycerides 177, Cholesterol 205 H, LDL Cholesterol, Calc 123, VLDL Cholesterol 35, HDL Cholesterol 47, Cholesterol/HDL Ratio 4.38, Vitamin B12 421 09/01/24 06:26: POC Glucose 144 H Imaging Radiology Impression Brain CT 08/31/24 20:46 IMPRESSION: No acute intracranial abnormality. Chronic microvascular ischemia and involutional changes. Reading [facility] 08/31/24 23:41 IMPRESSION: 1. Punctate high RIGHT frontal acute infarct. No mass-effect or appreciable hemorrhagic conversion. 2. Additional description as above. Reading Location: [id number] Carotid Duplex 08/31/24 23:41 Interpretation Summary Severe (>70%) stenosis right extracranial internal carotid. Mild (<50%) stenosis left extracranial internal carotid. Patent and antegrade vertebrals bilaterally. Ordering Physician: Severiano Ibarra Performed By: Na Isaac, RVT Charges/Coding Visit Charges Inpatient E&M: 00390 Init Hosp L2
--- NOTE | 2024-09-01 14:32 | CON.PCM.NE_ITS ---
Assessment and Plan: Neuro Assessment/Plan BLAYNE MOODY is a 83 F with a past medical history of HTN and DM2, being evaluated by Teleneurology for for stroke. 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 Agree with vascular surgery evaluation for CEA or HIRAL. Diagnosis: stroke related LG - Anti-platelet medication: Aspirin 81 mg daily - SBP goal 140-200 - Occupational/ Physical therapy consults - NPO until swallow evaluation. IVF until able to take po - DVT prophylaxis with SCDs and heparin SQ - Vascular risk factor modification. The following are the recommended guidelines: LDL Goal < 70 - cont lipitor 40mg Smoking Cessation Diabetes Management skilled nursing blood pressure control should achieve <130/80 mmHg. BP management should aim to achieve halfway contorl in a reasonable amount of time, taking into consideration the individual patient's requirements and characteristics. Weight Management: Goal for BMI is 18.5 -24.9 kg/m2 Alcohol: No more than 2 drinks/day for men or 1 drink/day for non- women - Promote lifestyle modification: weight control, physical activity, moderation of alcohol intake, moderate sodium intake. Followup with PCP in 1-2 weeks, and in Neurology clinic in 6-12 weeks I personally attended this patient and spent a total time of 45minutes evaluating this patient including clinical assessment, review of chart, medical history imaging, and determining appropriate treatment and workup. HPI Consult Data Date of Consult: 09/01/24 HPI Narrative HPI Narrative: BLAYNE MOODY, is a 83 F with a past medical history of essential hypertension; poorly-controlled on metoprolol, obesity; BMI of 39.5 this admission, DM-2; of unknown control on insulin glargine 8U at bedtime, GERD; currently not on treatment and OA who presents to [facility] ER complaining of dizziness and highly elevated blood pressure. Ms. Moody reports her acute symptoms began a few hours prior to admission with a gradual-onset of progressively worsening dizziness and lightheadedness. She also admits to diffuse generalized weakness with patient recording her blood pressure up to 270/51 mmHg so she decided to come in for further evaluation and treatment. She states that her blood pressure has been poorly controlled for weeks with recent increase in her dose of metoprolol without subsequent improvement. She denies associated headache, focal neurologic deficits, truncal ataxia, slurred speech, chest pain, palpitations, rash, other recent illness, near-syncope, syncope or fall. In the ER she was diagnosed with Hypertensive Emergency and she was subsequently treated with 1 dose of 20 mg of IV hydralazine with subsequent slurred speech and lethargy after her blood pressure dropped from 168 mmHg systolic to 138/50 mmHg suspicious for possible 'watershed infarct' due to rapid decrease in blood pressure. She was then admitted to the PCU under observation status for ongoing care for a stay that is expected to be less than 2 midnights. Pt was getting supper when symptoms started - patient felt dizzy (lightheadedness) and felt the lights closing in on her. Had no symptoms on the L side at the time. She was not acting like herself and was crying. Pt's daughter states there was no clear facial droop and slurred speech. Pt now feels back to normal. BP at home were in the 200s. BP was noted as high at a procedure. Nonsmoker, never had stroke before. Currently no dizziness or lightheadedness. [facility] Medical History GERD (gastroesophageal reflux disease) Hypertension Diabetes Home Medications ?Medication ?Instructions ?Recorded ?Last Taken ?Type insulin glargine 100 unit/mL (3 8 unit subcut QHS 01/17 Unknown History mL) subcutaneous pen (Lantus Solostar U-100 Insulin) metoprolol succinate 50 mg 100 mg PO DAILY 08/31/24 Un known History tablet,extended release 24 hr Allergy/AdvReac Type Severity Reaction Status Date / Time No Known Allergies Allergy Verified 08/31/24 19:32 Social History Smoking Status: Never smoker Vital Signs Vital Signs Vital Signs: 08/31/24 19:27 08/31/24 20:55 08/31/24 21:27 Temperature 97.8 F Temperature Source Oral Pulse Rate 66 65 Respiratory Rate 16 Respiratory Effort Respiratory Depth Respiratory Pattern Blood Pressure 224/66 H 202/70 H Blood Pressure Mean 118 114 Blood Pressure Source Blood Pressure Position Blood Pressure Location Pulse Ox 98 97 Oxygen Delivery Method Room Air Room Air Fraction of Inspired Oxygen (FIO2) 08/31/24 22:11 08/31/24 22:20 08/31/24 22:31 Temperature Temperature Source Pulse Rate 59 L 68 80 Respiratory Rate 18 18 15 Respiratory Effort Respiratory Depth Respiratory Pattern Blood Pressure 270/51 H 266/71 H 168/151 H Blood Pressure Mean 124 136 156 Blood Pressure Source Blood Pressure Position Blood Pressure Location Pulse Ox 97 99 97 Oxygen Delivery Method Room Air Fraction of Inspired Oxygen (FIO2) 08/31/24 22:33 08/31/24 22:50 08/31/24 23:04 Temperature 97.8 F Temperature Source Pulse Rate 80 79 Respiratory Rate 15 23 H Respiratory Effort Respiratory Depth Respiratory Pattern Blood Pressure 187/78 H 187/78 H 138/50 H Blood Pressure Mean 114 114 79 Blood Pressure Source Blood Pressure Position Blood Pressure Location Pulse Ox 97 Oxygen Delivery Method Fraction of Inspired Oxygen (FIO2) 09/01/24 00:00 09/01/24 00:17 09/01/24 01:03 Temperature 97 F L 97 F L Temperature Source Temporal Temporal Pulse Rate 79 78 75 Respiratory Rate 16 16 Respiratory Effort Respiratory Depth Respiratory Pattern Blood Pressure 194/50 H 176/45 H 167/43 H Blood Pressure Mean 98 88 84 Blood Pressure Source Monitor Monitor Monitor Blood Pressure Position Semi-Fowlers Semi-Fowlers Semi-Fowlers Blood Pressure Location Left Arm Left Arm Right Arm Pulse Ox 99 99 99 Oxygen Delivery Method Room Air Room Air Room Air Fraction of Inspired Oxygen (FIO2) 09/01/24 01:11 09/01/24 01:30 09/01/24 04:00 Temperature 98 F Temperature Source Oral Pulse Rate 75 66 Respiratory Rate 16 Respiratory Effort Normal Non-Labored Respiratory Depth Normal Respiratory Pattern Normal Blood Pressure 159/43 H Blood Pressure Mean 81 Blood Pressure Source Monitor Blood Pressure Position Semi-Fowlers Blood Pressure Location Right Arm Pulse Ox 96 98 Oxygen Delivery Method Room Air Room Air Fraction of Inspired Oxygen (FIO2) 21 09/01/24 08:00 09/01/24 08:00 09/01/24 08:00 Temperature 98.0 F 97.9 F Temperature Source Oral Temporal Pulse Rate 64 115 H Respiratory Rate 16 18 Respiratory Effort Normal Non-Labored Respiratory Depth Respiratory Pattern Blood Pressure 210/56 H 145/87 H Blood Pressure Mean 107 106 Blood Pressure Source Monitor Monitor Blood Pressure Position Semi-Fowlers Semi-Fowlers Blood Pressure Location Right Arm Right Arm Pulse Ox 97 96 Oxygen Delivery Method Room Air Room Air Room Air Fraction of Inspired Oxygen (FIO2) 09/01/24 12:00 09/01/24 14:00 Temperature 98.0 F Temperature Source Oral Pulse Rate 72 Respiratory Rate 16 Respiratory Effort Normal Non-Labored Respiratory Depth Respiratory Pattern Blood Pressure 202/58 H Blood Pressure Mean 106 Blood Pressure Source Monitor Blood Pressure Position Sitting Blood Pressure Location Left Arm Pulse Ox 98 Oxygen Delivery Method Room Air Fraction of Inspired Oxygen (FIO2) Weight Weight: 78.7 kg Body Mass Index (BMI) 38.9 EEG Results Procedure Details EEG Procedure Details: BLAYNE MOODY is a 83 year old F with a past medical history of , who presents for evaluation of Electroencephalogram on DATE at TIME NIHSS NIHSS Nursing Documentation NIHSS Nursing Documentation: NIHSS: Ischemic Stroke/TIA Start: 09/01/24 00:06 Text: For PCU Patients: NIH and Neuro Check every 4 Status: Active hours, PRN and with change in RN caregiver. Freq: [id number] Protocol: Activity Type Activity Date Activity User E-sign Co-sign Detail Recorded Client Recorded Date Recorded By Document 09/01/24 12:00 ML [id number] 09/01/24 12:25 ML 09/01/24 12:00 NIH Stroke Scale [NIHSS] A score of 0 is normal or asymptomatic . Total possible score is 42. Inpatient: RN or Physician to activate a stroke alert for onset of new stroke symptoms or with NIHSS increase >/= 3 points. Following change in neurological status, NIHSS will be performed per physician order or more frequently PRN. -1a. Level of Consciousness Alert; keenly responsive -1b. LOC Questions Answers BOTH questions correctly. -1c. LOC Commands Performs both tasks correctly . -2. Best Gaze Normal -3. Visual No visual loss -4. Facial Palsy Normal symmetrical movements -5a. Left Arm No drift; arm holds 90 (or 45 ) degrees for full 10 seconds -5b. Right Arm No drift; arm holds 90 (or 45 ) degrees for full 10 seconds -6a. Left Leg No drift; leg holds 30-degree position for full 5 seconds -6b. Right Leg No drift; leg holds 30-degree position for full 5 seconds -7. Limb Ataxia Absent -8. Sensory Normal; no sensory loss -9. Best Language No aphasia; normal -10. Dysarthria Normal -11. Extinction and Inattention No abnormality -Total 0 Query Text:A score of 0 is normal or asymptomatic. Total possible score is 42 . ED: Notify Physician for NIHSS increase by > / = 3 points. Inpatient: RN or Physician to activate a stroke alert for NIHSS increase of > / = 3 points. Coma Scale [Assess] -Eye Opening Spontaneous -Motor Obeys Commands -Verbal Oriented [Total] -Coma Scale Total 15 NIHSS 1a. Level of Consciousness: Alert; keenly responsive 1b. LOC Questions: Answers BOTH questions correctly. 1c. LOC Commands: Performs both tasks correctly. 2. Best Gaze: Normal 3. Visual: No visual loss 4. Facial Palsy: Normal symmetrical movements 5a. Left Arm: No drift; arm holds 90 (or 45) degrees for full 10 seconds 5b. Right Arm: No drift; arm holds 90 (or 45) degrees for full 10 seconds 6a. Left Leg: Drift; leg falls by the end of 5-seconds, but does not hit bed 6b. Right Leg: No drift; leg holds 30-degree position for full 5 seconds 7. Limb Ataxia: Present in 1 limb 8. Sensory: Normal; no sensory loss 9. Best Language: No aphasia; normal 10. Dysarthria: Normal 11. Extinction and Inattention: No abnormality Total: 2 Physical Exam Narrative -? General: Laying comfortably in bed; in no acute distress. -? HENT: Normal oropharynx and mucosa. Normal external appearance of ears and nose. Exophthalmos. -? Neck: Supple, no pain or tenderness -? CV:? No peripheral edema. -? Pulmonary:? Normal respiratory effort. -? Ext: No cyanosis, edema, or deformity -? Skin: No rash. Normal palpation of skin.? -? Musculoskeletal: full range of motion; no joint tenderness. Normal digits and nails by inspection. No clubbing. -? NEURO: -? Mental Status: The patient was alert and oriented to time, place, and person. Normal recent/remote memory, concentration, and general fund of knowledge. -? Language: speech is clear? Naming, repetition, fluency, and comprehension intact. -? Cranial Nerves: EOMI, visual ozuna full, no facial asymmetry, facial sensation intact, hearing intact, tongue midline, no evidence of atrophy or fibrillations. -? Motor: normal bulk, tone, and strength throughout. No pronator drift or satelliting. Upper and lower extremities equal bilaterally. -?Detailed strength exam as performed by the nurse/MYNOR and witnessed by the physician: l R L SA 5 5 EE EF WE WF Cloth Measurer 5 5 HF KE KF DF PF -? Tone: is normal and bulk is normal -? Sensation- Intact to light touch bilaterally -? Coordination: FTN w ataxia on the LUE, -? Gait- deferred Lab / Micro Data 08/31/24 21:00 08/31/24 21:00 Labs: Laboratory Results - last 24 hr 08/31/24 21:00: WBC 11.0, RBC 4.27, Hgb 13.1, Hct 38.5, MCV 90.2, MCH 30.7, MCHC 34.0, RDW Std Deviation 47.4 H, RDW Coeff of Óscar 14.3, Plt Count 296, MPV 10.7, Immature Gran % (Auto) 0.500, Neut % (Auto) 61.5, Lymph % (Auto) 24.9, [place] % (Auto) 9.1, Eos % (Auto) 3.2, Baso % (Auto) 0.8, Absolute Neuts (auto) 6.8, Absolute Lymphs (auto) 2.74, Nucleated RBC % 0, Sodium 136, Potassium 4.2, Chloride 103, Carbon Dioxide 20.7 L, Anion Gap 12, BUN 19, Creatinine 0.99, E stim Creat Clear Calc 39.57 L, Est GFR (MDRD) Non-Af 57 L, BUN/Creatinine Ratio 18.8, Glucose 155 H, Hemoglobin A1c 7.8, Calcium 9.1, Total Bilirubin 0.26, AST 21, ALT 26, Alkaline Phosphatase 123 H, Troponin T High Sens 12, NT pro BNP II 245, Total Protein 6.6, Albumin 3.8, Globulin 2.7, Albumin/Globulin Ratio 1.4 08/31/24 22:36: POC Glucose 141 H 08/31/24 22:51: Urine Color Yellow, Urine Clarity Clear, Urine pH 6.0, Ur Specific [place] 1.010, Urine Protein Negative, Urine Glucose (UA) Normal, Urine Ketones Negative, Urine Occult Blood Negative, Urine Nitrite Negative, Urine Bilirubin Negative, Urine Urobilinogen Normal, Ur Leukocyte Esterase Negative, Urine RBC 0 SEEN, Urine WBC 0-5 SEEN, Ur Squamous Epith Cells 5-10 SEEN, Urine Bacteria 2+, Urine Mucus 0 SEEN, Urine Opiates Screen NEGATIVE, U Buprenorphine Qual NEGATIVE, Ur Oxycodone Screen NEGATIVE, Urine Methadone Screen NEGATIVE, Urine Fentanyl Screen NEGATIVE, Ur Barbiturates Screen NEGATIVE, Ur Phencyclidine Scrn NEGATIVE, Ur Amphetamines Screen NEGATIVE, U Benzodiazepines Scrn NEGATIVE, Urine Cocaine Screen NEGATIVE, U Cannabinoids Screen NEGATIVE 08/31/24 23:14: Ethyl Alcohol < 10.1 08/31/24 23:19: Troponin T Hi Sens 2 Hr 13, TSH 2.070 09/01/24 00:53: Troponin T Hi Sens 4Hr 13, Triglycerides Cancelled 09/01/24 00:53: Triglycerides Cancelled, Cholesterol Cancelled 09/01/24 00:53: Cholesterol Cancelled, LDL Cholesterol, Calc Cancelled 09/01/24 00:53: LDL Cholesterol, Calc Cancelled, VLDL Cholesterol Cancelled 09/01/24 00:53: VLDL Cholesterol Cancelled, HDL Cholesterol Cancelled 09/01/24 00:53: HDL Cholesterol Cancelled, Cholesterol/HDL Ratio Cancelled 09/01/24 00:53: Cholesterol/HDL Ratio Cancelled, Vitamin B12 Cancelled, Serum Folate 10.10 09/01/24 05:45: Triglycerides 177, Cholesterol 205 H, LDL Cholesterol, Calc 123, VLDL Cholesterol 35, HDL Cholesterol 47, Cholesterol/HDL Ratio 4.38, Vitamin B12 421 09/01/24 06:26: POC Glucose 144 H Imaging Radiology Impression Brain CT 08/31/24 20:46 IMPRESSION: No acute intracranial abnormality. Chronic microvascular ischemia and involutional changes. Reading Location: [facility] Brain MRI 08/31/24 23:41 IMPRESSION: 1. Punctate high RIGHT frontal acute infarct. No mass-effect or appreciable hemorrhagic conversion. 2. Additional description as above. Reading Location: [id number] Carotid Duplex 08/31/24 23:41 Interpretation Summary Severe (>70%) stenosis right extracranial internal carotid. Mild (<50%) stenosis left extracranial internal carotid. Patent and antegrade vertebrals bilaterally. Ordering Physician: Severiano Ibarra Performed By: Na Isaac, KATIE Active Medications Active Medications Active Medications: Current Medications Generic Name Dose Route Start Last Admin Trade Name Freq PRN Reason Stop Dose Admin Acetaminophen 650 mg 09/01/24 00:06 Acetaminophen 325 Mg Tablet PO Q6H PRN PRN Pain 1-10 or Fever Aspirin 81 mg 09/01/24 08:00 09/01/24 08:58 Aspirin 81 Mg Tab.Chew PO 81 mg BREAKFAST PATIENCE Administration Atorvastatin Calcium 40 mg 08/31/24 23:45 09/01/24 00:54 Atorvastatin Calcium 40 Mg Tablet PO 40 mg QHS PATIENCE Administration Heparin Sodium (Porcine) 5,000 unit 09/01/24 10:00 09/01/24 08:58 Heparin Injection (Vial) 5,000 Unit/Ml Vial SC 5,000 unit BID PATIENCE Administration Sodium Chloride 100 mls @ 15 mls/hr 09/01/24 01:45 IV .Q6H40M PRN Saline Flush Sodium Chloride 100 mls @ 15 mls/hr 09/01/24 01:45 IV .Q6H40M PRN Additional IVPB Infusion Insulin Glargine 5 unit 09/01/24 22:00 Insulin Glargine-Yfgn 100 Unit/Ml Pen SC QHS PATIENCE Meclizine HCl 12.5 mg 09/01/24 00:06 Meclizine 12.5 Mg Tablet PO TID PRN PRN DIZZINESS Ondansetron HCl 4 mg 09/01/24 00:06 Ondansetron 4 Mg/2 Ml Vial IV Q4H PRN PRN NAUSEA/VOMITING Sodium Chloride 10 - 40 ml 09/01/24 01:45 0.9% Saline Lock 10 Ml Syringe IV UD PRN SALINE FLUSH
--- NOTE | 2024-09-01 15:51 | CASEMGMT ---
Met with patient to complete JAY form. JAY form explained to patient who voiced understanding and signed form. Original form placed in pt?s chart and copy provided to patient. Fifi Lopes, Discharge Planning Asst
[2024-09-01] MEDS: amLODIPine 5 MG Tablet PO (20:24)
[2024-09-01] MEDS: Insulin Glargine-YFGN 100 UNIT/ML Pen SC (23:05)
[2024-09-01 23:37] LABS: Bedside Glucose 222 mg/dL (74-106)
[2024-09-02] VITALS (14 sets, daily range): BP systolic 83–212; BP diastolic 40–81; PULSE 72–88; RESP 15–18; TEMP 36.5–36.8; O2SAT 95–99; BMI 38.9
[2024-09-02] MEDS: hydrALAZINE 20 MG/ML Vial 5 MG IV (00:21)
[2024-09-02] MEDS: amLODIPine 10 MG Tablet PO (08:54)
[2024-09-02] MEDS: Carvedilol 12.5 MG Tablet PO ×2 (08:54→17:59)
[2024-09-02] MEDS: Aspirin 81 MG TAB.CHEW PO (08:55)
[2024-09-02] MEDS: Isosorbide Mononitrate 60 MG Tablet PO (08:55)
[2024-09-02] MEDS: Heparin Injection (Vial) 5,000 UNIT/ML VIAL 5000 UNIT SC ×2 (08:55→21:28)
--- NOTE | 2024-09-02 10:50 | CASEMGMT ---
RN CM Face to Face with patient for initial transition planning/care coordination assessment. RN CM introduced self and role at [facility]. Patient lying in bed, alert and oriented, family at bedside. Patient willing to participate in assessment and is able to answer all questions appropriately. Care providers, pharmacy, and demographics verified. Strata: 2 PCP: Pedro Specialists: Bushra Becerra, ortho Preferred Pharmacy: [facility] Insurance: [facility] Prescription Benefit: yes Living Will/HPOA: yes, LNOK: , daughters Living Arrangements: Patient lives with in a single story home with rampt to enter the home. Patient states she is independent at home. Transportation: self, daughter DME/HHC: Patient had raised toilet, cane, walker at home. No previous HHC or SNF Patient wishes to discharge home, denies need for home health at this time. Patient states she has no further needs or concerns at this time. CM to follow for discharge planning needs that may arise. Disposition Plan: Patient to discharge home with family support and follow-up plans in place. Sharon TAMEZ, RN, CM
[2024-09-02] MEDS: Ondansetron 4 MG/2 ML Vial IV (12:58)
--- NOTE | 2024-09-02 14:42 | STROKE.PNOTE ---
Objective Data Objective Data Vital Signs: Vital Signs Temp Pulse Resp BP Pulse Ox O2 Del Method FiO2 97.9 F 77 17 148/78 H 97 Room Air 21 09/02/24 12:35 09/02/24 13:26 09/02/24 12:35 09/02/24 13:40 09/02/24 12:35 09/02/24 13:05 09/01/24 01:11 Oxygen Delivery Method Room Air Weight: 78.7 kg Body Mass Index (BMI) 38.9 Intake & Output: Intake and Output for Last 24 Hours 08/31/24 09/01/24 09/02/24 23:59 23:59 23:59 Intake Total 360 / 360 Balance 360 / 360 Lab / Micro Data 08/31/24 21:00 08/31/24 21:00 Labs: Laboratory Results - last 24 hr 09/01/24 23:04: POC Glucose 222 H Radiography Diagnostic Testing: Radiology Impression Echocardiogram 08/31/24 23:41 Interpretation Summary Normal LV size. Left ventricular systolic function is normal. The left ventricular ejection fraction is 70 %. Stage 1 diastolic dysfunction. Mild (1+) aortic valve insufficiency. Contrast injection was performed. Ordering Physician: Severiano Ibarra Performed By: Jer Valenzuela RCS Head/Neck CTA 09/01/24 14:00 IMPRESSION: Atherosclerotic calcification anterior and posterior intracranial circulation as described above, most prominent at the right ICA bifurcation with resultant luminal narrowing. No evidence of acute occlusion, dissection or aneurysm Reading Location: [facility] Physical Exam Narrative -? NEURO: -? Mental Status: The patient was alert and oriented to time, place, and person. Normal recent/remote memory, concentration, and general fund of knowledge. -? Language: speech is clear? Naming, repetition, fluency, and comprehension intact. -? Cranial Nerves: EOMI, visual ozuna full, no facial asymmetry, facial sensation intact, hearing intact, tongue midline, no evidence of atrophy or fibrillations. -? Motor: normal bulk, tone, and strength throughout. No pronator drift or satelliting. Upper and lower extremities equal bilaterally. -? Tone: is normal and bulk is normal -? Sensation- Intact to light touch bilaterally -? Coordination: FTN and HTS intact ithout atxia today, -? Gait- deferred Subject: Neurology Subjective Patient with a syncopal episode today - began feeling badly and lightheaded. BP was in 110s-80s at the time. Has recovered with BP in 140s and currently feels improved. EEG Results Procedure Details EEG Procedure Details: BLAYNE MOODY is a 83 year old F with a past medical history of , who presents for evaluation of Electroencephalogram on DATE at TIME Assessment and Plan: Stroke Assessment/Plan BLAYNE MOODY is a 83 F with a past medical history of HTN and DM2, being evaluated by Teleneurology for for stroke. 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 Agree with vascular surgery evaluation for CEA or HIRAL. Diagnosis: stroke related LG - Anti-platelet medication: load with total of 600mg Plavix since DAPT ok with vascular surgery, cont with SAS, cont ASA 81mg + Plavix 75mg until intervention, then defer to vascular surgery. - SBP goal 140-180 for 3 days, then decrease to 120-160 SBP - Occupational/ Physical therapy consults - NPO until swallow evaluation. IVF until able to take po - DVT prophylaxis with SCDs and heparin SQ - Vascular risk factor modification. The following are the recommended guidelines: LDL Goal < 70 - cont lipitor 40mg Smoking Cessation Diabetes Management trade sales assistant blood pressure control should achieve <130/80 mmHg. BP management should aim to achieve senior care contorl in a reasonable amount of time, taking into consideration the individual patient's requirements and characteristics. Weight Management: Goal for BMI is 18.5 -24.9 kg/m2 Alcohol: No more than 2 drinks/day for men or 1 drink/day for non- women - Promote lifestyle modification: weight control, physical activity, moderation of alcohol intake, moderate sodium intake. Followup with PCP in 1-2 weeks, and in Neurology clinic in 6-12 weeks I personally attended this patient and spent a total time of 45minutes evaluating this patient including clinical assessment, review of chart, medical history imaging, and determining appropriate treatment and workup.
--- NOTE | 2024-09-02 17:18 | PCM.PN.HOSP ---
Reason for Visit Reason for Visit: Dizziness/hypertension Subjective Subjective Patient was doing well and anxious to go home. She unfortunately experienced a bout of hypotension in the afternoon. Her blood pressure was markedly elevated so he had uptitrated her medications some. It does not that this was vasovagal and probably more medication related. She was given 1 L of IV fluids and bolus helped. Objective Data Objective Data Vital Signs: Vital Signs Temp Pulse Resp BP Pulse Ox O2 Del Method FiO2 97.9 F 72 16 152/46 H 98 Room Air 21 09/02/24 16:00 09/02/24 16:00 09/02/24 16:00 09/02/24 16:00 09/02/24 16:00 09/02/24 16:00 09/01/24 01:11 Oxygen Delivery Method Room Air Weight: 78.7 kg Body Mass Index (BMI) 38.9 Intake & Output: Intake and Output for Last 24 Hours 08/31/24 09/01/24 09/02/24 23:59 23:59 23:59 Intake Total 360 / 360 240 / 240 Balance 360 / 360 240 / 240 Lab / Micro Data 08/31/24 21:00 08/31/24 21:00 Labs: Laboratory Results - last 24 hr 09/01/24 23:04: POC Glucose 222 H Radiography Diagnostic Testing: Radiology Impression Echocardiogram 08/31/24 23:41 Interpretation Summary Normal LV size. Left ventricular systolic function is normal. The left ventricular ejection fraction is 70 %. Stage 1 diastolic dysfunction. Mild (1+) aortic valve insufficiency. Contrast injection was performed. Ordering Physician: Severiano Ibarra Performed By: Jer Valenzuela RCS Physical Exam Const alert, oriented x3, no apparent distress and well nourished; Negative for average body habitus Constitutional Narrative: Very pleasant, obese, white female, sitting up in bed, family is at the bedside, patient appears comfortable, nontoxic HEENT head/scalp atraumatic and moist oral mucous membranes HEENT Narrative: Mallampati 2, no thrush Eyes Eyes Narrative: No scleral icterus Neck Neck Narrative: Trachea midline Resp normal respiratory effort, no retractions, no use of accessory muscles and clear to auscultation bilaterally Auscultation: Negative for rales, rhonchi or wheezes Cardio regular rate, regular rhythm, S1 normal heart sound, S2 normal heart sound, no murmurs, no rub, no gallops and no clicks GI normal to inspection, nondistended, normoactive bowel sounds, soft to palpation and non-tender Extremity no clubbing, cyanosis or edema Extremity Narrative: 2+ pedal and radial pulses Neuro oriented x3, moves all extremities and no focal motor deficits Neuro Narrative: Neurological changes have resolved Speech: speech normal Psych affect normal Psych Narrative: Very pleasant, interacts appropriately Assessment & Plan Assessment/Plan (1) CVA (cerebral vascular accident): PLAN: Plan Acute right frontal lobe stroke secondary to hypertensive emergency -Still allow for some permissive hypertension with goal blood pressure between 180 and 200. -Continue Coreg 12.5 twice daily -Continue amlodipine but increase to 10 mg -Continue aspirin 81 mg daily -Patient already started Plavix but will load 600 mg per discussion with neurology -Continue atorvastatin 40 mg daily -Hemoglobin A1c was 7.8 -Total cholesterol is 205 with an LDL of 123 and HDL of 47 -PT/OT following -Vascular surgery plans to perform outpatient endarterectomy versus stenting with discharge on aspirin Plavix and statin -Neurology is following and agrees with current plan -Current blood pressure goals are for 140-180 for the next 48 hours then a goal of 120-160 until vascular can revascularize her right-sided carotid artery Hypertensive emergency -Continue Coreg 12.5 mg daily -Increase amlodipine to 5 mg daily -Blood pressure currently should be between 140-180 -PRNs available for systolic blood pressure greater 180 Hyperlipidemia -LDL is above goal of 70 -Current LDL is 123 -Statin initiated per stroke protocol Bilateral carotid artery stenosis right greater than left -Given right sided stroke and critical stenosis on the right vascular surgery consulted -Dual antiplatelet therapy -Statin -Outpatient referral for probable intervention in the future DM-2 -Hemoglobin A1c is 7.8 -Increase basal insulin to 10 units -Start metformin 500 mg twice daily at discharge Obesity -BMI is 38.9 -Recommend weight loss -Complicates treatment, prognosis, outcomes DVT prophylaxis -Continue subcu heparin twice daily CODE STATUS -DNR CCA with no intubation Disposition: -Initial plan was to discharge home today however patient experienced a transient hypotensive issue we will monitor through tomorrow. She was fluid responsive. Charges/Coding Visit Charges Inpatient E&M: 47088 Subs Hosp L2
[2024-09-02] MEDS: Clopidogrel Bisulfate 300 MG Tablet 600 MG PO (17:58)
[2024-09-02] MEDS: Insulin Glargine-YFGN 100 UNIT/ML Pen SC (21:26)
[2024-09-02] MEDS: Atorvastatin Calcium 40 MG Tablet PO (21:27)
[2024-09-02 22:14] LABS: Bedside Glucose 262 mg/dL (74-106)
[2024-09-03] VITALS (7 sets, daily range): BP systolic 158–174; BP diastolic 52–76; PULSE 70–81; RESP 15–18; TEMP 36.4–36.6; O2SAT 97–99; BMI 38.9
[2024-09-03] MEDS: Carvedilol 12.5 MG Tablet PO (08:32)
[2024-09-03] MEDS: Clopidogrel Bisulfate 75 MG Tablet PO (08:32)
[2024-09-03] MEDS: amLODIPine 10 MG Tablet PO (08:32)
[2024-09-03] MEDS: Aspirin 81 MG TAB.CHEW PO (08:32)
[2024-09-03] MEDS: Heparin Injection (Vial) 5,000 UNIT/ML VIAL 5000 UNIT SC (08:33)
[2024-09-03 09:05] LABS: Bedside Glucose 176 mg/dL (74-106)
[2024-09-03 09:27] LABS: Absolute Lymphocyte Count 2.17 X10^3/uL (0.83-4.51); Absolute Neutrophil Count 6.1 X10^3/uL (2.0-7.7); Basophil# 0.05 X10^3/uL; Basophil% 0.5 % (0-1); Eosinophil# 0.18 X10^3/uL; Eosinophils% 1.9 % (0-5); Hematocrit 34.7 % (37-47); Hemoglobin 11.5 g/dL (12.0-15.0); Lymphocyte # 2.17 X10^3/ul (0.83-4.51); Lymphocyte % 22.9 % (19-41); Mean Corp Hgb Conc 33.1 g/dL (32-36); Mean Corpuscular Hgb 30.4 pg (27.0-32.0); Mean Corpuscular Volume 91.8 fL (81-99); Mean Platelet Vol. 10.9 fl (6.2-12.0); Monocyte# 0.93 X10^3/uL; Monocyte% 9.8 % (0-10); NRBC Flagged by Analyzer 0 % (0-5); Neutrophil # 6.12 X10^3/uL (2.7-7.7); Neutrophil % 64.5 % (47-70); Platelet Count 281 K/mm3 (150-450); RBC Distribution Width CV 14.4 % (11.6-14.6); RBC Distribution Width SD 48.5 fl (35.1-43.9); Red Blood Count 3.78 M/mm3 (4.2-5.4); White Blood Count 9.5 K/mm3 (4.4-11.0)
[2024-09-03 10:00] LABS: ALB/GLOB Ratio 1.3 RATIO (0.9-2.4); AST(SGOT) 16 U/L (<=31); Alanine Aminotransfer ALT/SGPT 21 U/L (<=34); Albumin, Serum 3.6 g/dL (3.4-4.8); Alkaline Phosphatase 115 U/L (35-104); Anion Gap 11 (5-15); BUN 16 mg/dL (4-19); BUN/Creat Ratio 16.4 RATIO (10-20); Calcium,Total 9.2 mg/dL (7.6-11.0); Carbon Dioxide 20.8 mmol/L (21.0-32.0); Chloride 106 mmol/L (98-108); Creatinine, Serum 0.97 mg/dL (0.70-1.20); EST Glomerular Filtration Rate 58 (>60); Estimated Creatinine Clearance 40.44 ml/min (50-250); Globulin 2.7 g/dL (2.2-4.2); Glucose 176 mg/dL (70-99); Potassium 4.3 mmol/L (3.3-5.1); Protein, Total 6.3 g/dL (5.9-8.4); Sodium Level 138 mmol/L (133-145); Total Bilirubin 0.47 mg/dL (0.00-1.30)
[2024-09-03] MEDS: Isosorbide DN 10 MG Tablet 5 MG PO (10:37)
--- NOTE | 2024-09-03 12:10 | DS.PCM_ITS ---
Providers Date of Admission: 09/01/24 Date of Discharge: 09/03/24 Primary Care Physician: Dr. Kurt Vasquez MD Consultations 09/01/24 00:06 Consult: Tele-Neurology Routine Consulting Provider: [facility] Reason for Consult: Acute Ischemic Stroke/TIA EMERGENT Consult: No Notified: Yes Date Notified: 08/31/24 Time Notified: 00:38 Method of Notification: Answering Service Method of Consult:: Telemedicine Nursing Unit Staff Notify [facility] of Tele-Neurology Consult: Yes 09/01/24 10:56 Consult: Vascular Surgery Routine Consulting Provider: Ugo Rogel Reason for Consult: Critical HIRAL EMERGENT Consult: No Notified: Yes Date Notified: 09/01/24 Time Notified: 10:56 Method of Notification: Verbal Reason For Visit: HYPERTENSIVE EMERGENCY & TIA VS WATERSHED CVA Diagnosis Discharge Diagnosis (1) CVA (cerebral vascular accident): Status: Acute Code(s): I63.9 - Cerebral infarction, unspecified Medications at Discharge Home Medications amlodipine 10 mg tablet 10 mg PO DAILY #30 tabs 09/03/24 aspirin 81 mg chewable tablet 81 mg PO BREAKFAST #0 tabs 09/03/24 atorvastatin 40 mg tablet 40 mg PO QHS #30 tabs 09/03/24 carvedilol 12.5 mg tablet 12.5 mg PO BIDCM #60 tabs 09/03/24 clopidogrel 75 mg tablet 75 mg PO DAILY #30 tabs 09/03/24 insulin glargine 100 unit/mL (3 mL) subcutaneous pen (Lantus Solostar U-100 Insulin) 10 unit (0.1 mL) subcut QHS #15 mL 09/03/24 isosorbide dinitrate 10 mg tablet 5 mg (1/2 x 10 mg) PO TID #90 tabs 09/03/24 metformin 500 mg tablet 500 mg PO BID #60 tabs 09/03/24 Hospital Course Operations None Procedures EKG and - (CT brain/MRI brain/carotid duplex/CTA head and neck) Summary of Care Provided Minutes Spent on Discharge: 41 Hospital Course: Mrs. Underwood is an 83-year-old white female who presents emergency department at [facility] on 08/31/2024 with a chief complaint of dizziness and elevated blood pressure. Symptoms were acute and started a few hours prior to presentation and were gradual onset. She also admitted to generalized diffuse weakness. Blood pressure at home was 270/51 so she decided come to emergency department for further evaluation. She stated on presentation her blood pressure has been poorly controlled for weeks with recent increased doses of her metoprolol but she is not on any other medications besides her metoprolol. She had no focal deficits on presentation. Vital signs emergency department on presentation showed a temperature 97.8, heart rate was 68, respiratory rate was 16, blood pressure was 224/66 and pulse ox was 98% room air. Her CBC was unremarkable. Her chemistry panel was overtly unremarkable. Blood glucose was 155 and patient is a known diabetic. Hemoglobin A1c was 7.8. Liver functions were normal. Troponins were normal x 3. BNP was normal. Total cholesterol 205 with an LDL of 123 and HDL 47. B12, TSH, and folate were all within normal limits. CT of the brain on admission was unremarkable for any acute findings but did show chronic microvascular changes. With her blood pressure being markedly elevated and symptoms concerning to admitted with hypertensive emergency from stroke workup was pursued is after blood pressure cuff emergency department she developed some neurological changes. MRI of the brain was done after admission and showed a punctate high right frontal lobe infarct with no mass effect or appreciated hemorrhagic transformation. CTA was not obtained on admission and a carotid duplex was ordered. Carotid duplex showed severe (greater than 70%) stenosis in the right extracranial internal carotid artery and mild less than 50% stenosis in the left extracranial internal carotid artery with patent and antegrade flow in the vertebrals bilaterally. With the stroke finding on the right side and the carotid abnormalities on the right side vascular surgery was consulted and a CTA of the head neck was performed. Current recommendations include dual antiplatelet therapy with aspirin and Plavix and high intensity dose statin along with outpatient follow-up for possible intervention. This showed atherosclerotic calcification anterior and posterior intracranial circulation most prominent at the right ICA bifurcation with resultant luminal narrowing. Echocardiogram showed an EF of 70% with stage I diastolic dysfunction and mild aortic valve insufficiency. Vascular surgery saw the placement and has upcoming appointment for intervention as an outpatient. She was also seen by neurology who recommended Plavix loading her with 600 mg and continuing aspirin and Plavix at 75 mg daily at the time of discharge as well as statin and blood pressure control. Blood pressure control for the first 24 hours was between 180 and 200. After that point in time we dropped her blood pressure goal from 140-180 and that is where she was at the time of discharge. To obtain that control, we added Coreg 12.5 mg p.o. twice daily, amlodipine 10 mg p.o. daily and Isordil 5 mg 3 times daily. We initially tried Imdur however it dropped her blood pressure and cause a hypotensive episode which made her feel quite poorly and held discharge. Plan after 72 to 96 hours from the time of event is blood pressure of 120-160. This is to be the goal until her carotid is intervened upon. Her hemoglobin A1c was 7.8 so I did increase her basal insulin from 8-10 and added metformin 500 mg p.o. twice daily to get her closer to 7. Statin 40 mg was also added. Prescriptions for her medications were sent to local pharmacy at the time of discharge. We have asked that she follow-up with neurology in the next 3 to 6 months. She is to follow- up with Dr. Rogel as instructed by his office as they will call and her primary care physician within the next week. She will most likely need up titration on her blood pressure medication to attain goal. Patient was able to be discharged home in stable condition on 09/03/2024. Discharge diagnoses: Acute right frontal lobe stroke Hypertensive emergency Carotid artery stenosis right greater than left Hyperlipidemia DM-2 uncontrolled Obesity Hypertension Physical Exam Const alert, oriented x3, no apparent distress, no limitations and well nourished; Negative for average body habitus or healthy appearing Constitutional Narrative: Very pleasant, obese, white female, sitting up in bed, multiple family members are at the bedside, patient appears comfortable, nontoxic General Appearance: cooperative, comfortable, well kempt and well developed Exam Limitations: no limitations Nutritional Appearance: obese HEENT normocephalic, head/scalp atraumatic and moist oral mucous membranes; Negative for hearing grossly normal bilaterally HEENT Narrative: Mallampati 3, no thrush, mild hearing loss Eyes conjunctivae normal Eyes Narrative: No scleral icterus Neck supple Neck Narrative: Trachea midline Resp normal respiratory effort, no retractions, no use of accessory muscles and clear to auscultation bilaterally Auscultation: Negative for rales, rhonchi or wheezes Cardio regular rate, regular rhythm, S1 normal heart sound, S2 normal heart sound, no murmurs, no rub, no gallops and no clicks GI normal to inspection, nondistended, normoactive bowel sounds, soft to palpation and non-tender Extremity no clubbing, cyanosis or edema Extremity Narrative: 2+ pedal and radial pulses Skin no jaundice, no petechiae and no mottling Neuro oriented x3, CN's II-XII intact bilaterally, moves all extremities, no focal motor deficits and no sensory deficits noted Neuro Narrative: Patient is no sensory deficits, no motor deficits Speech: speech normal Psych affect normal Psych Narrative: Very pleasant, interacts appropriately Weight / BMI Weight Weight: 80.1 kg Body Mass Index (BMI) 38.9 ABG / Lab / Microbiology Data 09/03/24 09:15 09/03/24 09:15 Laboratory: Laboratory Results - last 24 hr 09/02/24 21:25: POC Glucose 262 H 09/03/24 08:24: POC Glucose 176 H 09/03/24 09:15: WBC 9.5, RBC 3.78 L, Hgb 11.5 L, Hct 34.7 L, MCV 91.8, MCH 30.4, MCHC 33.1, RDW Std Deviation 48.5 H, RDW Coeff of Óscar 14.4, Plt Count 281, MPV 10.9, Immature Gran % (Auto) 0.400, Neut % (Auto) 64.5, Lymph % (Auto) 22.9, Labette % (Auto) 9.8, Eos % (Auto) 1.9, Baso % (Auto) 0.5, Absolute Neuts (auto) 6.1, Absolute Lymphs (auto) 2.17, Nucleated RBC % 0, Sodium 138, Potassium 4.3, Chloride 106, Carbon Dioxide 20.8 L, Anion Gap 11, BUN 16, Creatinine 0.97, E stim Creat Clear Calc 40.44 L, Est GFR (MDRD) Non-Af 58 L, BUN/Creatinine Ratio 16.4, Glucose 176 H, Calcium 9.2, Total Bilirubin 0.47, AST 16, ALT 21, Alkaline Phosphatase 115 H, Total Protein 6.3, Albumin 3.6, Globulin 2.7, Albumin/Globulin Ratio 1.3 D/C Instructions Discharge Diet: Low fat / Low cholesterol and 1800 Calorie Control Diet Discharge Activity: Return to Normal Activity DC O2, CPAP, BIPAP Needs Home O2 Discharge instructions: No Meaningful Use Info Meaningful Use Meaningful Use Diagnoses (Choose all that apply): Ischemic CVA CVA Therapy Assessed for PT,OT and/or ST?: Yes Ischemic Stroke Antithrombotic order at d/c?: Yes Dx of Atrial fib/flutter?: No Anticoagulant at discharge?: No Reason anticoagulant not ordered: Treatment not Indicated Statin Dosing Therapy Reference: STATIN DOSE THERAPY REFERENCE: * Patients > 75 years receive moderate or high dose statin therapy. * Patients 75 years or YOUNGER should receive HIGH intensity statin dose unless contraindicated. You will be required to document reason for non-treatment if statin daily dose does not meet guidelines. HIGH DOSE STATIN THERAPY DAILY Atorvastatin > than or = to 40 mg Rosuvastatin > than or = to 20 mg Amlodipine + Atorvastatin > than or = to 2.5/40 mg Ezetimibe + Simvastatin 10/80 mg Simvastatin 80mg Statins at discharge?: Yes Primary Dx Acute Ischemic CVA?: Yes IV thrombolytic ordered during stay?: No Reason IV thrombolytic not ordered: Treatment not Indicated Discharge Plan Admission Admit Date/Time: 09/01/24 15:48 Primary Reason for Your Visit: Dizziness/hypertension Attending Provider: Dariana Wise Primary Care Provider: Kurt Vasquez Consulting Providers: Jason Walker; Roberto Quiñones; Estela Guzman; Sonali yN; Monik Barker; Ronald Christianson; Candis Noel; Luis Crooks; Twin Hanna; Ralph Monet; Sherry Priest; Scott Fernandez; Jovita Gibson; Giovanni Norris; Magno Sheppard; Erik Pagan; Neil Loredo; Lux Driver; Shannen Wise; Armen Ascencio; Severiano Ibarra; Ugo Rogel Instructions Additional Instructions / Restrictions: 1. Blood pressure currently is between 140 and 180. In the next 24 hours goal blood pressure will be 1 20-1 60 until your carotid endarterectomy is performed. Please follow-up with your primary care physician in the next week so we can reevaluate your blood pressure closely and titrate medications as needed Discharge Orders/Prescriptions Prescriptions: New amlodipine 10 mg Tablet 10 mg PO DAILY Qty: 30 1RF atorvastatin 40 mg Tablet 40 mg PO QHS Qty: 30 1RF aspirin 81 mg Tablet,Chewable 81 mg PO BREAKFAST Qty: 0 0RF carvedilol 12.5 mg Tablet 12.5 mg PO BIDCM Qty: 60 1RF clopidogrel 75 mg Tablet 75 mg PO DAILY Qty: 30 1RF isosorbide dinitrate 10 mg Tablet 5 mg PO TID Qty: 90 1RF metformin 500 mg tablet 500 mg PO BID Qty: 60 1RF Changed insulin glargine [Lantus Solostar U-100 Insulin] 100 unit/mL (3 mL) insulin pen 10 unit subcut QHS Qty: 15 0RF Discontinued metoprolol succinate 50 mg tablet extended release 24 hr 100 mg PO DAILY Referrals / Follow Up: Divya Hinojosa MD [Med Staff - Fundraising Consultant] - Within 1 Week Ugo Rogel MD [Med Staff - Active Staff] - Within 1 Week Kurt Vasquez MD [Primary Care Provider] - Choco Quinones MD [Non-Staff -Ordering Privileges] - See Referral Note (3 to 6 months) Disposition Disposition (needs filled in before D/C Order can be placed): Home, Self Care Charges/Coding Visit Charges Inpatient E&M: 82414 Disch Hosp >30min
--- NOTE | 2024-09-03 14:45 | CASEMGMT ---
Patient has order for discharge. RN CM in to discuss needs at discharge. Patient denies needs or help at discharge. Patient had no further questions or concerns.
--- NOTE | 2024-09-03 15:18 | CHAPLAIN ---
Type of Pastoral Visit _x__ Initial Visit ___ Follow-up Visit ___ On-call Visit ___ General Patient Visit ___ Spiritual Assessment ___ Family Conference ___ Bereavement ___ Rapid Response ___ Code Blue ___ Other (describe below) Pastoral Care Referral From _x__ Patient ___ Family ___ Nurse ___ Physician ___ Promotions Assistant ___ Rectifying Attendant ___ Other (describe below) Sacrament/Intervention _x__ Active listening ___ Anointing ___ Voodoo ___ Bereavement ___ Communion ___ Na exploration ___ ___ Life review _x__ Prayer ___ Reconciliation ___ Sacrament of Sick _x__ Supportive presence ___ Wedding ___ Other (describe below) Pastoral Comments patient gives some explanation of her situation and the need to return later this month for a surgery; pt speaks of her daughter and granddaughter who are LPNs and know what she needs and keeps an eye on me; pt shows some humor in the conversation; pt says that she is mostly concerned for her who has his own needs and doesn't do well without me at home; pt has a rosary and is using it to pray through her experience here; pt welcomes another prayer from this sausage stuffer; after prayer, family members arrive in the room and are greeted by this sausage stuffer; can follow up with patient when she returns for surgery
== END 2024-09-03 15:44 | disposition home or self-care (01) | DRG 304 ==
LOC: ED 23:17 → PCU 23:43
PROVIDERS: Admitting Provider Internal Medicine; Emergency Provider Emergency Medicine; PCP Family Medicine; Visit Provider Internal Medicine
DX: I16.1 Hypertensive emergency (principal); I63.9 Cerebral infarction, unspecified; I50.30 Unspecified diastolic (congestive) heart failure; Z66 Do not resuscitate; I11.0 Hypertensive heart disease with heart failure; E11.65 Type 2 diabetes mellitus with hyperglycemia; I35.1 Nonrheumatic aortic (valve) insufficiency; E66.9 Obesity, unspecified; E11.49 Type 2 diabetes mellitus with other diabetic neurological complication; I65.23 Occlusion and stenosis of bilateral carotid arteries; E78.5 Hyperlipidemia, unspecified; Z79.4 Long term (current) use of insulin; I67.2 Cerebral atherosclerosis; K21.9 Gastro-esophageal reflux disease without esophagitis; M19.90 Unspecified osteoarthritis, unspecified site; I95.9 Hypotension, unspecified; Z79.01 Long term (current) use of anticoagulants; R42 Dizziness and giddiness; Z68.39 Body mass index [BMI] 39.0-39.9, adult; R47.81 Slurred speech; Z79.02 Long term (current) use of antithrombotics/antiplatelets; R53.81 Other malaise; Z79.899 Other long term (current) drug therapy; Z79.84 Long term (current) use of oral hypoglycemic drugs; T46.4X5A Adverse effect of angiotensin-converting-enzyme inhibitors, initial encounter
CPT/HCPCS: 36415; 70450; 70496; 70498; 70551; 80053; 80061; 80307; 81001; 82077; 82607; 82746; 82962; 83036; 83880; 84443; 84484; 85025; 93005; 93306; 93880; 94762; 97162; 97802; 99285; Q9957; Q9967; A4216; C8929; J2405

== ENCOUNTER 2024-10-05 09:30 | Inpatient (IN) | payer MEDICARE, SELFPAY ==
--- NOTE | 2024-09-23 14:15 | PAT.ANESEVAL ---
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 When Was Last Pacemaker Check QUESTION #4 FULL TEXT: You/Your Family Experience fever (hyperthermia) with Anesthesia Last Oral Intake Last Oral intake: Last Oral Intake NPO since Meds taken in AM with sips of water? 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 excavation operator Female Yes 09/23/24 11:46 HX of Motion Sickness No 09/23/24 11:46 HX of N/V After Surgery No 09/23/24 11:46 Non-Smoker Yes 09/23/24 11:46 Duration of Surgery greater No 09/23/24 11:46 than 60 minutes Number of Risk Factors 2 09/23/24 11:46 PONV Score Moderate Risk 09/23/24 11:46 Height & Weight Height & Weight: Anesthesia: Height & Weight Height 4 ft 8 in 09/01/24 14:52 Respiratory Assessment Respiratory Assessment - hydro excavation operator: Respiratory Tract Infection Hx - hydro excavation operator Hx Respiratory Tract Infection No 09/23/24 11:46 STOP Sleep Apnea STOP Sleep Apnea - hydro excavation operator: STOP Sleep Apnea - hydro excavation operator Hx Hypertension Yes 09/23/24 11:46 Hx Sleep Apnea No 09/23/24 11:46 CPAP BIPAP Do you snore loudly (louder No 09/23/24 11:46 than talking or can be heard Do you often feel tired/ No 09/23/24 11:46 fatigued/ sleepy during daytime? Has anyone observed you stop No 09/23/24 11:46 breathing during sleep? STOP Results Negative 09/23/24 11:46 QUESTION #5 FULL TEXT : Do you snore loudly (louder than talking or can be heard through closed doors)? 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 Specify any problems Hx of Preganancy in last 3 No 09/23/24 11:46 Months Nurse Filling Out Transfusion VLEHMAN 09/23/24 11:46 & Questions: Date: 09/23/24 09/23/24 11:46 Time: 11:53 09/23/24 11:46 Patient unable to answer at this time (ie. confused, unrespo /Reproduction History /Reproductive History - hydro excavation operator: /Reproductive Hx- hydro excavation operator Hx Now No 09/23/24 11:46 Gestational Age (in weeks): EDC: Hx Hx Para Hx Section SAB No 09/23/24 11:46 [facility] Medical History (Updated 09/23/24 @ 11:53 by Tamiko Levin) Wears glasses Wears dentures Bruising Insulin dependent diabetes mellitus High cholesterol Stroke/cerebrovascular accident History of echocardiogram History of edema CVA (cerebral vascular accident) Diabetes mellitus, type 2 Obesity (BMI 30-39.9) GERD (gastroesophageal reflux disease) Hypertension Diabetes Home Medications ?Medication ?Instructions ?Recorded ?Last Taken ?Type aspirin 81 mg chewable tablet 81 mg PO BREAKFAST SUPPLEMENT #0 09/03/24 Unknown Rx tabs atorvastatin 40 mg tablet 40 mg PO QHS CHOLESTEROL #30 tabs 09/03/24 Unknown Rx carvedilol 12.5 mg tablet 12.5 mg PO BIDCM BP #60 tabs 09/03/24 Unknown Rx clopidogrel 75 mg tablet 75 mg PO DAILY BLOOD THINNER #30 09/03/24 Unknown Rx tabs insulin glargine 100 unit/mL (3 10 unit (0.1 mL) subcut QHS 09/03/24 Unknown Rx mL) subcutaneous pen (Lantus DIABETES #15 mL Solostar U-100 Insulin) isosorbide dinitrate 10 mg tablet 5 mg (1/2 x 10 mg) PO TID HEART 09/03/24 Unknown Rx #90 tabs metformin 500 mg tablet 500 mg PO BID DIABETES #60 tabs 09/03/24 Unknown Rx amlodipine 10 mg tablet 2.5 mg PO DAILY HYPERTENSION 09/17/24 Unknown History losartan 50 mg-hydrochlorothiazide 1 tab PO QDAY BP 09/17/24 Unknown History 12.5 mg tablet Allergy/AdvReac Type Severity Reaction Status Date / Time No Known Allergies Allergy Verified 09/23/24 11:42 Surgical History (Updated 09/23/24 @ 11:46 by Tamiko Levin) History of cholecystectomy Social History Smoking Status: Never smoker Audit: Pertinent Findings Pertinent Findings EKG Perinent findings: 08/31/2024. Normal sinus rhythm. Echo (EF%) pertinent findings: September 01, 2024. Ejection fraction 70%. No aortic stenosis is noted. 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 Anesthesia 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 Anesthesia recommendation: OPTIMIZED for anesthesia
[2024-10-01 12:12] LABS: Hematocrit 36.3 % (37-47); Hemoglobin 12.1 g/dL (12.0-15.0); Mean Corp Hgb Conc 33.3 g/dL (32-36); Mean Corpuscular Hgb 30.3 pg (27.0-32.0); Mean Corpuscular Volume 90.8 fL (81-99); Mean Platelet Vol. 10.6 fl (6.2-12.0); Platelet Count 321 K/mm3 (150-450); RBC Distribution Width CV 13.3 % (11.6-14.6); RBC Distribution Width SD 44.4 fl (35.1-43.9); White Blood Count 8.9 K/mm3 (4.4-11.0)
[2024-10-01 12:58] LABS: Anion Gap 14 (5-15); BUN 18 mg/dL (4-19); BUN/Creat Ratio 14.6 RATIO (10-20); Calcium,Total 9.2 mg/dL (7.6-11.0); Carbon Dioxide 21.7 mmol/L (21.0-32.0); Chloride 98 mmol/L (98-108); Creatinine, Serum 1.22 mg/dL (0.70-1.20); EST Glomerular Filtration Rate 44 (>60); Glucose 231 mg/dL (70-99); Hemoglobin A1c 7.7 % (<=5.6); Potassium 4.6 mmol/L (3.3-5.1); Sodium Level 134 mmol/L (133-145)
[2024-10-05] VITALS (34 sets, daily range): BP systolic 118–165; BP diastolic 37–74; PULSE 58–104; RESP 12–22; TEMP 36.1–36.8; O2SAT 94–100; BMI 38.4; BMI 390057.4
[2024-10-05] MEDS: Lactated Ringers 1,000 ML 15 ML IV (05:50)
--- NOTE | 2024-10-05 06:39 | PRE.ANES_ITS ---
ASA Classification* ASA Classification ASA Classification: 3 Assessment & Plan Anesthesia* Anesthesia Assessment Anesthesia Assessment: Discussed sedation and/or anesthesia options, risks, benefits, and alternatives with patient/parents/legal guardian/POA. Questions invited. The patient/parents/legal guardian/POA seems to understand and agrees to proceed with anesthesia plan. Reviewed the physical assessment, medical history, allergy history and patient home medications list prior to surgery/procedure/anesthetic and documented any changes. Performed airway and anesthesia risk assessments. Anesthesia Type Anesthesia Type: General History Source History Obtained from:: Patient and Chart Anesthesia Focused Assessment* Temperature: 97.6 F Pulse Rate: 98 Blood Pressure: 154/52 Respiratory Rate: 18 Pulse Ox: 99 Oxygen Delivery Method: Room Air Airway Assessment Mouth opens: >3 cm Mallampati Score: III Teeth Condition: Dentures and Full Focused Labs Anesthesia Preop lab: CBC WBC 8.9 K/mm3 (4.4-11.0) 10/01/24 11:10/01/24 RBC 4.00 M/mm3 (4.2-5.4) L 10/01/24 11:10/01/24 Hgb 12.1 g/dL (12.0-15.0) 10/01/24 11:10/01/24 Hct 36.3 % (37-47) L 10/01/24 11:10/01/24 Plt Count 321 K/mm3 (150-450) 10/01/24 11:10/01/24 CHEMISTRY Potassium 4.6 mmol/L (3.3-5.1) 10/01/24 11:10/01/24 Sodium 134 mmol/L (133-145) 10/01/24 11:10/01/24 BUN 18 mg/dL (4-19) 10/01/24 11:10/01/24 Creatinine 1.22 mg/dL (0.70-1.20) H 10/01/24: Glucose 231 mg/dL (70-99) H 10/01/24 11:10/01/24 POC Glucose 176 mg/dL (74-106) H 09/03/24 08:24 09/03/24 TSH 2.070 uIU/mL (0.300-4.200) 08/31/24 23:19 0401/17 COAG Pre-Assessment Diagnosis/Proposed Procedure Planned Operative Procedure(s): RIGHT CAROTID STENT Anesthesia History Anesthesia History - hoisting laborer: Anesthesia History - hoisting laborer Hx Hospitalization Yes: AT [facility] [place] 09/23/24 11:46 Any Problems With Anesthesia No 09/23/24 11:46 Cholinesterase deficiency No 09/23/24 11:46 You/Your Family Experience No 09/23/24 11:46 fever (hyperthermia) with Relationship Recent Exposure to Contagious No 10/05/24 05:50 Disease Does patient have nerve No 09/23/24 11:46 stimulator Patient instructed to have device shut off --Does patient have Pacemaker No 10/05/24 05:50 or ICD? When Was Last Pacemaker Check QUESTION #4 FULL TEXT: You/Your Family Experience fever (hyperthermia) with Anesthesia Last Oral Intake Last Oral intake: Last Oral Intake NPO since 04:45 10/05/24 05:50 Meds taken in AM with sips of Yes 10/05/24 05:50 water? Meds patient instructed to take am of surgery PONV PONV - hoisting laborer: PONV - hoisting laborer Female Yes 09/23/24 11:46 HX of Motion Sickness No 09/23/24 11:46 HX of N/V After Surgery No 09/23/24 11:46 Non-Smoker Yes 09/23/24 11:46 Duration of Surgery greater No 09/23/24 11:46 than 60 minutes Number of Risk Factors 2 09/23/24 11:46 PONV Score Moderate Risk 09/23/24 11:46 Height & Weight Height & Weight: Anesthesia: Height & Weight Height 4 ft 8 in 10/05/24 05:50 Weight: 77.8 kg 10/05/24 05:50 Body Mass Index (BMI) 38.4 10/05/24 05:50 Respiratory Assessment Respiratory Assessment - hoisting laborer: Respiratory Tract Infection Hx - hoisting laborer Hx Respiratory Tract Infection No 09/23/24 11:46 STOP Sleep Apnea STOP Sleep Apnea - hoisting laborer: STOP Sleep Apnea - hoisting laborer Hx Hypertension Yes 09/23/24 11:46 Hx Sleep Apnea No 09/23/24 11:46 CPAP BIPAP Do you snore loudly (louder No 09/23/24 11:46 than talking or can be heard Do you often feel tired/ No 09/23/24 11:46 fatigued/ sleepy during daytime? Has anyone observed you stop No 09/23/24 11:46 breathing during sleep? STOP Results Negative 09/23/24 11:46 QUESTION #5 FULL TEXT : Do you snore loudly (louder than talking or can be heard through closed doors)? 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 Specify any problems Hx of Preganancy in last 3 No 09/23/24 11:46 Months Nurse Filling Out Transfusion [place] 09/23/24 11:46 & Questions: Date: 09/23/24 09/23/24 11:46 Time: 11:53 09/23/24 11:46 Patient unable to answer at this time (ie. confused, unrespo /Reproduction History /Reproductive History - hoisting laborer: /Reproductive Hx- hoisting laborer Hx Now No 09/23/24 11:46 Gestational Age (in weeks): EDC: Hx Hx Para Hx Section SAB No 09/23/24 11:46 Active Medications Active Medications: Current Medications Generic Name Dose Route Start Last Admin Trade Name Freq PRN Reason Stop Dose Admin Cefazolin Sodium 2 gm/ Sodium 110 mls @ 150 mls/hr 10/05/24 07:00 Chloride IV 10/05/24 07:43 INTRAOP ONE Lactated Ringer's 1,000 mls @ 15 mls/hr 10/05/24 05:45 10/05/24 05:50 IV 15 mls/hr .Q48H PATIENCE Administration PFSH Medical History Wears glasses Wears dentures Bruising Insulin dependent diabetes mellitus High cholesterol Stroke/cerebrovascular accident History of echocardiogram History of edema CVA (cerebral vascular accident) Diabetes mellitus, type 2 Obesity (BMI 30-39.9) GERD (gastroesophageal reflux disease) Hypertension Diabetes Home Medications ?Medication ?Instructions ?Recorded ?Last Taken ?Type aspirin 81 mg chewable tablet 81 mg PO BREAKFAST SUPPL EMENT #0 09/03/24 10/04/24 Rx tabs atorvastatin 40 mg tablet 40 mg PO QHS CHOLESTEROL #30 tabs 09/03/24 10/04/24 22:00 Rx carvedilol 12.5 mg tablet 12.5 mg PO BIDCM BP #60 tabs 09/03/24 09/27/24 Rx clopidogrel 75 mg tablet 75 mg PO DAILY BLOOD THINNER #30 09/03/24 10/04/24 09:00 Rx tabs insulin glargine 100 unit/mL (3 10 unit (0.1 mL) subcu t QHS 09/03/24 10/04/24 22:00 Rx mL) subcutaneous pen (Lantus DIABETES #15 mL Solostar U-100 Insulin) isosorbide dinitrate 10 mg tablet 5 mg (1/2 x 10 mg) P O TID HEART 09/03/24 10/05/24 04:45 Rx #90 tabs metformin 500 mg tablet 500 mg PO BID DIABETES #60 t abs 09/03/24 10/04/24 22:00 Rx amlodipine 10 mg tablet 2.5 mg PO DAILY HYPERTENSION 09/17/24 10/05/24 04:45 History losartan 50 mg-hydrochlorothiazide 1 tab PO QDAY BP 10/04/24 09:00 History 12.5 mg tablet Allergy/AdvReac Type Severity Reaction Status Date / Time No Known Allergies Allergy Verified 10/05/24 06:16 Surgical History History of cholecystectomy Social History Smoking Status: Never smoker Prior Cardiac Testing/Procedures Prior Cardiac Testing/Procedures: Echocardiogram (EF 70% diastolic grade one dysfunction) Addt'l Information Additional Findings: EKG reviewed, NSR. Review of Systems (Anesthesia) ROS Narrative System reviewed and no additional complaints, except as documented. Physical Exam Const alert and oriented x3 HEENT Teeth and Gingiva: dentures Resp normal respiratory effort Cardio regular rate Neuro oriented x3 and moves all extremities
[2024-10-05] MEDS: Insulin Lispro 100 UNIT/ML INSULN.PEN SC ×3 (06:51→21:13)
--- NOTE | 2024-10-05 07:25 | PCM.HP.BLA ---
History and Physical Allergies No Known Allergies Allergy (Verified 08/31/24 19:32) Medications ?Medication ?Instructions ?Recorded ?Confirmed ?Type aspirin 81 mg chewable tablet 81 mg PO BREAKFAST #0 tabs 09/03/24 09/17/24 Rx atorvastatin 40 mg tablet 40 mg PO QHS #30 tabs 09/03/24 09/17/24 Rx carvedilol 12.5 mg tablet 12.5 mg PO BIDCM #60 tabs 09/03/24 09/17/24 Rx clopidogrel 75 mg tablet 75 mg PO DAILY #30 tabs 09/03/24 09/17/24 Rx insulin glargine 100 unit/mL (3 10 unit (0.1 mL) subcut QHS #15 mL 09/03/24 09/17/24 Rx mL) subcutaneous pen (Lantus Solostar U-100 Insulin) isosorbide dinitrate 10 mg tablet 5 mg (1/2 x 10 mg) PO TID #90 tabs 09/03/24 Rx metformin 500 mg tablet 500 mg PO BID #60 tabs 09/03/24 09/17/24 Rx amlodipine 10 mg tablet 2.5 mg PO DAILY 09/17/24 History losartan 50 mg-hydrochlorothiazide 1 tab PO QDAY 09/17/24 09/17/24 History 12.5 mg tablet Is last menstrual period known: No Post menopausal: Yes Patient : No Have you fallen in the past year?: Yes [facility] Medical History CVA (cerebral vascular accident) Diabetes mellitus, type 2 Obesity (BMI 30-39.9) GERD (gastroesophageal reflux disease) Hypertension Diabetes Social History Smoking Status: Never smoker HPI HPI HPI: BLAYNE MOODY, is a 83 F who presents to the office today for hospital follow-up from CVA. On 08/31/24, she presented to the [facility] ER with binocular vision darkening and presyncope; she was found to be very hypertensive with systolics into the 260s. She underwent workup for stroke including Brain MRI which was positive for R frontal punctate infarct, Head/Neck CTA which showed significant R ICA stenosis 75% by NASCET, and carotid duplex confirming >70% R ICA stenosis. We were consulted in the hospital and plan was for outpatient carotid intervention with goal of improved blood pressure control prior to surgery. Prior to hospitalization, she had been only on metoprolol at home; at discharge she was on amlodipine, carvedilol, and isosorbide mononitrate with pressures 140-180. She reports that her blood pressure has been 170s-180s at home. She was just to her PCP today who made some further BP medication adjustments with addition of losartan-HCTZ. Otherwise, she has not had any recurrent stroke symptoms. She reports no other significant medical changes in the interval since her hospitalization. ROS General General: Yes fatigue and weakness; No weight change, appetite, colon cancer or breast cancer HEENT HEENT: No difficulty swallowing, eye injury, eye surgery, swollen glands or hoarseness Endo Endocrine: Yes diabetes mellitus; No thyroid disease, thyroid cancer, Hair loss, heat intolerance or cold intolerance Skin Skin: No rash or changing moles Musc Musculoskeletal: No back problems, arthritis, rheumatoid arthritis, gout or joint pain Cardio Cardiovascular: Yes high blood pressure and shortness of breath with exertion; No murmur, pacemaker, heart disease, atrial fibrillation, heart attack, heart stent, palpitations or chest pain Psych Psychiatric: No depression, anxiety or hearing voices Resp Respiratory: No shortness of breath, No sleep apnea, No cough, No COPD, No asthma, No emphysema and No wheezing Gastro Gastrointestinal: No abdominal pain, No nausea or vomiting, Yes diarrhea, No constipation, No blood in stool, No acid reflux, No hemorrhoids, No ulcers, No gallbladder problem and No black,tarry stools Donald Hematologic: Yes blood thinners, No blood disorders, No bleeding, No anemia and No blood clots Additional Details: plavixs Neuro Neurologic: No system reviewed and no additional complaints, except as documented, No as per HPI, No abnormal gait, Yes abnormal hearing, No abnormal movements, No abnormal speech, No behavioral changes, No burning sensations, No confusion, No convulsions, Yes disequilibrium, No dizziness, No localized weakness, No frequent falls, No headache(s), Yes lack of coordination, No loss of vision, No memory loss, No numbness, No other visual disturbances, No radicular pain, No restless legs, No sensory deficit, No syncope, No tingling, No tremor(s), Yes weakness and Yes other (tightness around face about 1 year ) Exam Const General: cooperative, comfortable and no acute distress Orientation: alert, awake and oriented x3 HENMT Head: normal to inspection, normocephalic and atraumatic Ears: hearing grossly normal bilaterally and external ears normal Nose: external nose normal Eyes General: appearance normal, both eyes and all related structures EOM: EOM intact bilaterally Neck Neck: normal visual inspection and trachea midline Resp Effort & Inspection: normal respiratory effort, able to speak in complete sentences, no grunting, not labored, no respiratory distress and no retractions Auscultation: clear to auscultation bilaterally Cardio Rate: regular rate Rhythm: regular rhythm Pulses: radial pulses present Skin General: no rashes or lesions noted Wounds: no wounds Neuro General: moves all extremities and no focal motor deficits Speech: speech normal Psych Appearance: grossly normal Mental Status: mental status grossly normal Affect: normal affect Speech and Movement: speech and movement normal Attitude: cooperative Judgment: judgment good Coding Level of Care Code Off vis,est,level 3 Diagnoses Stenosis of right carotid artery I65.21 Assessment and Plan Assessment and Plan (1) Stenosis of right carotid artery: Status: Acute Plan -right TCAR
[2024-10-05 07:29] LABS: Bedside Glucose 239 mg/dL (74-106)
--- NOTE | 2024-10-05 09:43 | OP.PCM_ITS ---
Operative Report (Standard) Operative Information Date of Procedure: 10/05/24 Pre-Operative Diagnosis: right carotid stenosis Post-Operative Diagnosis: same Surgery/Procedure Performed: right carotid stent, trans carotid bus or truck garage mechanic: Yes Supervisor Gear Repair: Ingrid Rodríguez Tasks completed by certified nursing assistant instructor: Opening, Closing, Opening & closing, Hemostasis: Electrocautery and Retracting Type of Anesthesia: General RN Documented Start/Stop Times: Operation Date: 10/05/24 07:15 Case Time Into Pre-Op 10/05/24 05:32 Out of Pre-Op 10/05/24 07:21 Into Recovery 10/05/24 10:05 Out of Recovery 10/05/24 11:46 Procedure Start Time: 08:30 Procedure Stop Time: 09:45 Select all DRAINS/GRAFTS/IMPLANTS that apply: Implanted device Implanted device details: 9-7 x 40 En Route stent Estimated Blood Loss: 19 Specimen collected: No Description of surgery: HPI: Patient is an 83-year-old female with symptomatic right internal carotid artery stenosis who presents now for carotid artery stenting via transcarotid access. Description of procedure: Upon obtaining informed consent and verification correct patient procedure site the patient was taken to the Head Rigger where she was placed under general anesthesia. She was then positioned prepped and draped in usual sterile fashion a time was performed. Oblique incision was made over the anterior border the sternocleidomastoid at the clavicle and Bovie used to dissect down through subcutaneous tissue to the level of the platysma. The platysma was divided and self-retaining retractors put in position then further dissection carried down to the sternocleidomastoid. The cleft between the sternal clavicular heads was then identified and dissected with Bovie and self- retaining retractor moved deeper into the wound. Once the carotid sheath was visualized sharp dissection was used to dissect free the anterior border the jugular vein was then retracted laterally exposing the common carotid artery. Sharp dissection was then used to dissect free the proximally and a right angle used to place a vessel loop. A 5-0 Prolene pursestring was then placed at the intended access site and the patient was heparinized and allowed to circulate for 3 minutes with subsequent heparin dosing based on ACT results. Next under ultrasound guidance the right common femoral vein was accessed with a micro puncture needle wire which was then exchanged for micropuncture sheath. Through the micropuncture sheath a J wire was advanced and the micropuncture sheath exchanged for the 8 Italian venous return sheath. Next the common carotid artery was accessed in antegrade fashion with a micropuncture needle wire exchanged for micropuncture sheath. Through the micropuncture sheath hand-injection subtraction angiography of the carotid was performed revealing satisfactory position with no extravasation or dissection. This also confirmed the location of the carotid bifurcation which was then marked to guide wire and catheter advancement. Through the micropuncture sheath a J-wire was advanced the micropuncture sheath exchanged for the silk Road flow reversal sheath which was advanced without resistance. The flow reversal tubing was then attached first to the arterial sheath and then to the venous sheath with adequate flow reversal confirmed. The proximal common carotid artery was then occluded with Vesseloops and multiple oblique view subtraction angiography was performed confirming lesion position as well as adequate sheath tip position. Through the arterial sheath a silk Road angioplasty balloon 4.5 x 35 was advanced centered on the lesion and inflated at nominal for 20 seconds then deflated withdrawn. Next an en route tapered 9 to 7 x 40 stent was advanced centered on the lesion and deployed. 2 minutes of flow reversal was then performed after which completion angiography was performed revealing satisfactory stent position with no extravasation or dissection, no residual stenosis, and no plaque prolapse. The vessel loop was then released and additional minute of flow reversal performed after which the flow reversal tubing was detached and blood return via the venous sheath. The femoral vein sheath then withdrawn and manual pressure held for 10 minutes until hemostasis was obtained. The carotid sheath also was withdrawn and the pursestring suture secured with satisfactory stasis noted. Heparin was then reversed with protamine and the incision inspected for hemostasis. Keena topical hemostatic was applied and a 19 Italian channel CHITO placed via separate stab incision. The incision was then closed with 3-0 Vicryl, 4-0 Monocryl and Dermabond for the skin. At the conclusion of the case the patient was awake from anesthesia moving all extremities to command and creatinine was intact. Patient was then taken to the recovery room with anticipated admission to the intensive care unit for hemodynamic and neurologic monitoring. Surgical Findings: see above Complications Complications: No
--- NOTE | 2024-10-05 10:10 | PCM.POST.ANE ---
Anesthesia: Postop Eval I Current Vital Signs Temperature: 97.4 F Pulse Rate: 80 Blood Pressure: 155/50 Respiratory Rate: 16 Pulse Ox: 97 Oxygen Delivery Method: Nasal Cannula Oxygen Flow Rate (L/min): 2 Assessment Airway patent: Yes Spontaneous unlabored respirations: Yes Mental status: Awake and Calm nausea: No Vomiting: No Anesthesia Complication: No Fluid Hydration Crystalloid volume administer (ml): 1,500 Total IV fluid infused: 1,500 Progress Note Anesthesia document: Postop Eval 1 completed: Yes
[2024-10-05] MEDS: hydrALAZINE 20 MG/ML Vial 10 MG IV (11:25)
[2024-10-05 13:04] LABS: ACT Activated Clotting Time 314 sec (74-137)
[2024-10-05 13:04] LABS: ACT Activated Clotting Time 141 sec (74-137)
[2024-10-05] MEDS: Enoxaparin 40 MG/0.4 ML Syringe SC (13:09)
[2024-10-05] MEDS: Isosorbide DN 10 MG Tablet 5 MG PO ×2 (13:10→21:08)
[2024-10-05] MEDS: Clopidogrel Bisulfate 75 MG Tablet PO (13:10)
[2024-10-05] MEDS: hydroCHLOROthiazide 12.5mg 12.5 MG PO (13:10)
[2024-10-05] MEDS: Losartan Potassium 50 MG Tablet PO (13:10)
[2024-10-05] MEDS: Acetaminophen 500 MG Tablet 1000 MG PO ×2 (13:10→21:08)
[2024-10-05] MEDS: BENZOCAINE/MENTHOL 1 LOZENGE MUCOUS MEM (13:19)
--- NOTE | 2024-10-05 14:03 | POSTOPAN2_ITS ---
Anesthesia Postop Eval I Sum Postop Eval Completion status Anesthesia document: Postop Eval 1 completed: Yes Anesthesia Postop Eval I Summary Anesthesia Postop Eval I Summary: Anesthesia Postop Eval I: Assessment Summary Airway patent Yes 10/05/24 10:30 [email or web address] Spontaneous unlabored Yes 10/05/24 10:30 DIRECTOR [email or web address] respirations Mental status Awake,Calm 10/05/24 10:30 [email or web address] nausea No 10/05/24 10:30 DIRECTOR [email or web address] Vomiting No 10/05/24 10:30 [email or web address] Anesthesia Postop Eval I: Fluid Summary Crystalloid volume administer 1,500 10/05/24 10:30 [email or web address] (ml) Colloids volume administered ( ml) Blood Product volume administered (ml) Total IV fluid infused 1,500 10/05/24 10:30 DIRECTOR [email or web address] Anesthesia Postop Eval I: Summary Notes Anesthesia Complication No 10/05/24 10:30 DIRECTOR [email or web address] Anesthesia Complication Comment: Post-operative progress note Anesthesia: Postop Eval II Evaluation Mental status: Awake and Calm Pain Level: 3 nausea: No Vomiting: No Progress Note Post-operative progress note: Patient transferred to the ICU on 10 mcg/min nitroglycerin. meeting SBP goals Complications Anesthesia Complication: No
--- NOTE | 2024-10-05 14:03 | PCM.POSTANE2 ---
Anesthesia Postop Eval I Sum Postop Eval Completion status Anesthesia document: Postop Eval 1 completed: Yes Anesthesia Postop Eval I Summary Anesthesia Postop Eval I Summary: Anesthesia Postop Eval I: Assessment Summary Airway patent Yes 10/05/24 10:30 [email or web address] Spontaneous unlabored Yes 10/05/24 10:30 THERMAL [email or web address] respirations Mental status Awake,Calm 10/05/24 10:30 THERMAL [email or web address] nausea No 10/05/24 10:30 THERMAL [email or web address] Vomiting No 10/05/24 10:30 THERMAL [email or web address] Anesthesia Postop Eval I: Fluid Summary Crystalloid volume administer 1,500 10/05/24 10:30 THERMAL [email or web address] (ml) Colloids volume administered ( ml) Blood Product volume administered (ml) Total IV fluid infused 1,500 10/05/24 10:30 THERMAL [email or web address] Anesthesia Postop Eval I: Summary Notes Anesthesia Complication No 10/05/24 10:30 THERMAL [email or web address] Anesthesia Complication Comment: Post-operative progress note Anesthesia: Postop Eval II Evaluation Mental status: Awake and Calm Pain Level: 3 nausea: No Vomiting: No Progress Note Post-operative progress note: Patient transferred to the ICU on 10 mcg/min nitroglycerin. meeting SBP goals Complications Anesthesia Complication: No
[2024-10-05] MEDS: Labetalol (Prefilled) 20 MG/4 ML Vial 10 MG IV (15:24)
[2024-10-05] MEDS: Cefazolin 1 GM/50 ML BAG IV ×2 (17:05→23:36)
[2024-10-05 17:29] LABS: Bedside Glucose 408 mg/dL (74-106)
[2024-10-05] MEDS: Nitroglycerin Infusion 250 ML 6 MG CONT INF (19:00)
[2024-10-05] MEDS: Mag Hydrox/Al Hydrox/Simeth 30 ML UDC PO (19:55)
--- NOTE | 2024-10-05 20:29 | NURSING ---
this RN double verified with Mana Mansfield RN, nitroglycerin gtt running at 10 mcg/min to start our shift at 1900. Medication not scanned into JUL and was not showing as running.
[2024-10-05] MEDS: Atorvastatin Calcium 40 MG Tablet PO (21:08)
[2024-10-05] MEDS: Insulin Glargine-YFGN 100 UNIT/ML Pen 10 UNIT SC (21:14)
[2024-10-06] VITALS (16 sets, daily range): BP systolic 132–159; BP diastolic 40–69; PULSE 55–78; RESP 12–22; TEMP 36.4–36.8; O2SAT 93–99; BMI 392898.8
[2024-10-06 00:57] LABS: Bedside Glucose 373 mg/dL (74-106)
[2024-10-06] MEDS: Labetalol (Prefilled) 20 MG/4 ML Vial 10 MG IV ×2 (03:08→05:14)
[2024-10-06] MEDS: 0.9% Saline Lock 10 ML Syringe IV ×2 (03:08→05:14)
[2024-10-06] MEDS: Mag Hydrox/Al Hydrox/Simeth 30 ML UDC PO (03:10)
[2024-10-06 03:15] LABS: Absolute Lymphocyte Count 1.41 X10^3/uL (0.83-4.51); Absolute Neutrophil Count 11.4 X10^3/uL (2.0-7.7); Basophil# 0.03 X10^3/uL; Basophil% 0.2 % (0-1); Eosinophil# 0.01 X10^3/uL; Eosinophils% 0.1 % (0-5); Hematocrit 30.5 % (37-47); Hemoglobin 10.6 g/dL (12.0-15.0); Lymphocyte # 1.41 X10^3/ul (0.83-4.51); Mean Corp Hgb Conc 34.8 g/dL (32-36); Mean Corpuscular Hgb 30.7 pg (27.0-32.0); Mean Corpuscular Volume 88.4 fL (81-99); Mean Platelet Vol. 10.9 fl (6.2-12.0); Monocyte% 8.5 % (0-10); NRBC Flagged by Analyzer 0 % (0-5); Neutrophil # 11.42 X10^3/uL (2.7-7.7); Neutrophil % 80.6 % (47-70); Platelet Count 301 K/mm3 (150-450); RBC Distribution Width CV 13.4 % (11.6-14.6); RBC Distribution Width SD 43.5 fl (35.1-43.9); Red Blood Count 3.45 M/mm3 (4.2-5.4); White Blood Count 14.2 K/mm3 (4.4-11.0)
[2024-10-06] MEDS: Isosorbide DN 10 MG Tablet 5 MG PO ×2 (05:14→14:38)
[2024-10-06] MEDS: Aspirin 81 MG TAB.CHEW PO (08:59)
[2024-10-06] MEDS: metFORMIN HCl 500 MG Tablet PO (08:59)
[2024-10-06] MEDS: Losartan Potassium 50 MG Tablet PO (08:59)
[2024-10-06] MEDS: hydroCHLOROthiazide 12.5mg 12.5 MG PO (08:59)
[2024-10-06] MEDS: Clopidogrel Bisulfate 75 MG Tablet PO (09:00)
[2024-10-06] MEDS: amLODIPine 5 MG Tablet PO (09:00)
[2024-10-06] MEDS: Insulin Lispro 100 UNIT/ML INSULN.PEN SC ×2 (09:07→11:48)
[2024-10-06 09:27] LABS: Bedside Glucose 301 mg/dL (74-106)
[2024-10-06 12:07] LABS: Bedside Glucose 208 mg/dL (74-106)
--- NOTE | 2024-10-06 12:28 | CASEMGMT ---
ORESTES MARK Assessment Face to Face with patient for initial transition planning/care coordination assessment. ORESTES MARK introduced self and role at [facility], pt voices understanding. Pt is A&Ox4 and is resting comfortably in bed and is calm. Care providers, pharmacy, and demographics verified. Admitting dx: Carotid stent LACE Strata: 2 PCP: Divya Hinojosa Specialists: Orthopaedics through [facility] Preferred Pharmacy: [facility] Insurance: [facility] Prescription Benefit: Yes LNOK: Maria A Holt (Daughter), Aden Shook (H) Living Arrangements: Pt lives with her in a single story home with a ramp to enter ADLs/IADLs: Pt states that she is entirely independent and denies current concerns. Pt states that she helps care for her at home. Pt states that she has a Daughter and a GD who are both LPNs. Pt states that she also has support through her son and DIL if needed. Transportation: Self, son, daughter. Denies concerns DME: Functioning BGM with sufficient supplies. Raised Toilet seat. Cane. FWW. Grab bars. BP Machine. HHC/SNF: Denies history or needs Pt?s goal: Home Plan: Home with pt's family support, anticipate no additional needs. Pt plans to follow up with vascular as an OP. Pt denies the need for any form of HH or OP therapy. Pt states that she has plenty of family support at home and feels safe returning there once medically ready and denies further questions, concerns, or needs at this time. Gunner Anderson RN, CM
--- NOTE | 2024-10-06 12:57 | PCM.DC.SUM ---
Providers Date of Admission: 10/05/24 Primary Care Physician: Dr. 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 Instructions: Resume on 10/08/24. losartan 50 mg-hydrochlorothiazide 12.5 mg tablet 1 tab PO QDAY BP 09/17/24 acetaminophen 500 mg tablet 1,000 mg (2 x 500 mg) PO Q8 7 days #0 tabs 10/06/24 amlodipine 5 mg tablet 5 mg PO DAILY 30 days #30 tabs 10/06/24 Hospital Course Summary of Care Provided Hospital Course: Chelsea Shook is an 83 y/o female who underwent R TCAR 10/05/24, the procedure was without complication and she tolerated it well. Postoperatively, she was routinely admitted to the ICU for ongoing hemodynamic and neurologic monitoring. She was hypertensive requiring a nitro drip initially postoperatively, this was able to be weaned overnight and BPs were maintained with a few PRN doses of labetalol. This morning 10/06, increase to amlodipine 5mg daily in addition to her usual dose of losartan-HCTZ and her BPs have been satisfactory <160 systolic since. I removed the CHITO drain parachute mender of 10/06 without issue, subsequently she had persistent oozing from this site for which I ultimately applied surgicel and placed a pressure dressing to manage. The incision site is satisfactory in appearance without hematoma. The R groin access site is without hematoma or bleeding/drainage. She has remained neurologically intact throughout admission. She has been urinating to her baseline level of urinary retention. She has ambulated to her baseline without dizziness/lightheadedness. She has been tolerating a normal diet. She reports no pain at the incision site, has not requiring anything more than PRN tylenol to manage. She has a lot of family in place to support her at home and is appropriate for discharge home today with planned outpatient follow-up on 10/22/24 as scheduled. Physical Exam Const oriented x3 and no apparent distress HEENT normocephalic, head/scalp atraumatic, hearing grossly normal bilaterally, external ears normal and external nose normal Eyes EOMs intact bilaterally General Eye: normal appearance of both eyes Neck Neck Narrative: R neck incision site with skin glue intact, no hematoma/ecchymosis/redness/drainage. CHITO drain with serosanguineous output prior to removal. Resp normal respiratory effort Cardio regular rate and regular rhythm Extremity normal to inspection Skin no rashes or lesions noted Psych mental status grossly normal, cooperative, affect normal and speech normal Appearance: grossly normal Attitude: calm and engaged Activity / Motor Behavior: appropriate eye contact Speech: normal speech Mood & Affect: euthymic mood Judgement: judgement good Weight / BMI Weight Weight: 175 lb 4.28 oz Body Mass Index (BMI) 182063.8 ABG / Lab / Microbiology Data 10/06/24 03:05 10/01/24 11:52 Laboratory: Laboratory Results - last 24 hr 10/05/24 17:03: POC Glucose 408 H 10/05/24 21:12: POC Glucose 373 H 10/06/24 03:05: WBC 14.2 H, RBC 3.45 L, Hgb 10.6 L, Hct 30.5 L, MCV 88.4, MCH 30.7, MCHC 34.8, RDW Std Deviation 43.5, RDW Coeff of Óscar 13.4, Plt Count 301, MPV 10.9, Immature Gran % (Auto) 0.600, Neut % (Auto) 80.6 H, Lymph % (Auto) 10.0 L, [place] % (Auto) 8.5, Eos % (Auto) 0.1, Baso % (Auto) 0.2, Absolute Neuts (auto) 11.4 H, Absolute Lymphs (auto) 1.41, Nucleated RBC % 0 10/06/24 09:07: POC Glucose 301 H 10/06/24 11:48: POC Glucose 208 H D/C Instructions Discharge Diet: Carb Control Diet May shower in (days): 2 Weight Bearing Status: Weight bearing as tolerated Lifting Restricted to (Lbs): 20 Lifting Restrictions: Do not lift greater than 20 pounds for 3 weeks Call your doctor if your incision/area has: Continuous Slow Oozing, Sudden Increased Bleeding, Increased Pain/ Swelling and Foul Smelling Discharge Call your doctor if you observe: Fever of 101 or Higher and Uncontrolled pain Remove Dressing in: 2 days DC O2, CPAP, BIPAP Needs Home O2 Discharge instructions: No Additional Instructions: INCISION CARE: You have a small bandage on your neck over the site from which the surgical drain was removed and over the R groin puncture site. You may remove both bandages Friday after your first shower. As long as there is no residual drainage, you may leave these sites open to air. If you do notice some continued drainage, you may re-cover with a Band-Aid. Your neck incision site is covered with skin glue which will continue to protect it. The skin glue will peel/flake off on its own over the next few weeks. Please do not pick at it. You may shower Friday. It is okay for soap and water to rinse over the incision site, pat to dry. Do not submerge the incision site in water such as to take a bath or go swimming etc. for 3 weeks. MEDICATION INSTRUCTIONS Continue to take Aspirin 81mg daily and Plavix 75mg daily. Your blood pressures were elevated after surgery. Due to this, I increased you to Amlodipine 5mg daily which I have continued at discharge. This worked nicely to bring your blood pressure into the acceptable <160 systolic range which is where we prefer for you to be following surgery. Please continue to take your usual dose of losartan-HCTZ and isosorbide dinitrate daily. I have discontinued the carvedilol because you were not taking this at home and we did not have to give this to you here in the hospital either. Please continue to check your blood pressure every morning and every evening or any time you feel dizzy/lightheaded or have other symptoms. If your systolic blood pressure (top number) is >160, especially if you have a headache or any other symptoms, please contact either our office or your PCP as further medication adjustments may be necessary While in the hospital, you were not having any significant pain from surgery. Your pain was well controlled with Tylenol as needed. Due to this, I have not prescribed any additional pain medications. If you have increased pain once home, please call the office. Call the office at [phone] with any questions about your medications ACTIVITY INSTRUCTIONS Do not lift greater than 20 pounds for 3 weeks. Otherwise, please continue with activity as tolerated. Do not drive until you can turn your head well enough to safely check your blind spots. FOLLOW-UP INSTRUCTIONS You are scheduled for follow-up in the office on 10/22/2024. If you need to change this appointment or have any other questions/concerns, please call the office at [phone]. Please Follow Up With: Sonali Haro PA When: 10/22/2024 Meaningful Use Info Meaningful Use Meaningful Use Diagnoses (Choose all that apply): None applicable Ischemic Stroke Statin Dosing Therapy Reference: STATIN DOSE THERAPY REFERENCE: * Patients > 75 years receive moderate or high dose statin therapy. * Patients 75 years or YOUNGER should receive HIGH intensity statin dose unless contraindicated. You will be required to document reason for non-treatment if statin daily dose does not meet guidelines. HIGH DOSE STATIN THERAPY DAILY Atorvastatin > than or = to 40 mg Rosuvastatin > than or = to 20 mg Amlodipine + Atorvastatin > than or = to 2.5/40 mg Ezetimibe + Simvastatin 10/80 mg Simvastatin 80mg Discharge Plan Admission Admit Date/Time: 10/05/24 09:30 Attending Provider: Ugo Rogel Primary Care Provider: Divya Hinojosa Instructions Additional Instructions / Restrictions: INCISION CARE: You have a small bandage on your neck over the site from which the surgical drain was removed and over the R groin puncture site. You may remove both bandages Friday after your first shower. As long as there is no residual drainage, you may leave these sites open to air. If you do notice some continued drainage, you may re-cover with a Band-Aid. Your neck incision site is covered with skin glue which will continue to protect it. The skin glue will peel/flake off on its own over the next few weeks. Please do not pick at it. You may shower Friday. It is okay for soap and water to rinse over the incision site, pat to dry. Do not submerge the incision site in water such as to take a bath or go swimming etc. for 3 weeks. MEDICATION INSTRUCTIONS Continue to take Aspirin 81mg daily and Plavix 75mg daily. Your blood pressures were elevated after surgery. Due to this, I increased you to Amlodipine 5mg daily which I have continued at discharge. This worked nicely to bring your blood pressure into the acceptable <160 systolic range which is where we prefer for you to be following surgery. Please continue to take your usual dose of losartan-HCTZ and isosorbide dinitrate daily. I have discontinued the carvedilol because you were not taking this at home and we did not have to give this to you here in the hospital either. Please continue to check your blood pressure every morning and every evening or any time you feel dizzy/lightheaded or have other symptoms. If your systolic blood pressure (top number) is >160, especially if you have a headache or any other symptoms, please contact either our office or your PCP as further medication adjustments may be necessary While in the hospital, you were not having any significant pain from surgery. Your pain was well controlled with Tylenol as needed. Due to this, I have not prescribed any additional pain medications. If you have increased pain once home, please call the office. Call the office at [phone] with any questions about your medications ACTIVITY INSTRUCTIONS Do not lift greater than 20 pounds for 3 weeks. Otherwise, please continue with activity as tolerated. Do not drive until you can turn your head well enough to safely check your blind spots. FOLLOW-UP INSTRUCTIONS You are scheduled for follow-up in the office on 10/22/2024. If you need to change this appointment or have any other questions/concerns, please call the office at [phone]. Discharge Orders/Prescriptions Prescriptions: New amlodipine 5 mg Tablet 5 mg PO DAILY 30 Days Qty: 30 0RF acetaminophen 500 mg Tablet 1,000 mg PO Q8 7 Days Qty: 0 0RF Continued losartan-hydrochlorothiazide 50-12.5 mg tablet 1 tab PO QDAY atorvastatin 40 mg Tablet 40 mg PO QHS Qty: 30 1RF aspirin 81 mg Tablet,Chewable 81 mg PO BREAKFAST Qty: 0 0RF clopidogrel 75 mg Tablet 75 mg PO DAILY Qty: 30 1RF isosorbide dinitrate 10 mg Tablet 5 mg PO TID Qty: 90 1RF insulin glargine [Lantus Solostar U-100 Insulin] 100 unit/mL (3 mL) insulin pen 10 unit subcut QHS Qty: 15 0RF Held metformin 500 mg tablet 500 mg PO BID Qty: 60 1RF Hold Instructions: Resume on 10/08/24. Discontinued amlodipine 10 mg tablet 2.5 mg PO DAILY carvedilol 12.5 mg Tablet 12.5 mg PO BIDCM Qty: 60 1RF Patient Comments: stopped taking lately because it has been making her heart race Referrals / Follow Up: Divya Hinojosa MD [Primary Care Provider] - Disposition Disposition (needs filled in before D/C Order can be placed): Home, Self Care Charges/Coding Procedures Integumentary [id number]: [id number] Global Visit
== END 2024-10-06 16:10 | disposition home or self-care (01) | DRG 36 ==
LOC: ICU 11:35
PROVIDERS: Anesthesiology; Admitting Provider Surgery Trauma Surgery; PCP Internal Medicine; Referring Provider Surgery Trauma Surgery; Visit Provider Surgery Trauma Surgery
PROC: 037H3DZ Dilation of Right Common Carotid Artery with Intraluminal Device, Percutaneous Approach (ICD-10-PCS; CPT 37236; principal; 2024-10-05 06:45)
DX: I65.21 Occlusion and stenosis of right carotid artery (principal); E87.8 Other disorders of electrolyte and fluid balance, not elsewhere classified; E11.65 Type 2 diabetes mellitus with hyperglycemia; I10 Essential (primary) hypertension; E66.9 Obesity, unspecified; Z79.4 Long term (current) use of insulin; K21.9 Gastro-esophageal reflux disease without esophagitis; H53.30 Unspecified disorder of binocular vision; Z79.84 Long term (current) use of oral hypoglycemic drugs; Z79.82 Long term (current) use of aspirin; Z79.02 Long term (current) use of antithrombotics/antiplatelets; Z79.899 Other long term (current) drug therapy; Z68.30 Body mass index [BMI] 30.0-30.9, adult; R27.9 Unspecified lack of coordination; R53.1 Weakness; Z86.73 Personal history of transient ischemic attack (TIA), and cerebral infarction without residual deficits
CPT/HCPCS: 36415; 37215; 76937; 80048; 82962; 83036; 85025; 85027; 85347; 94668; 99252; A4648; C1725; C1769; C1876; C1884; C1894; Q9967; A4216; G0463; J2405

== ENCOUNTER 2024-10-22 17:18 | Inpatient (IN) | payer MEDICARE, SELFPAY ==
[2024-10-22 17:19] VITALS: BP 134/54; PULSE 89; RESP 18; TEMP 35.8; O2SAT 97
[2024-10-22 17:23] VITALS: BMI 38.1
--- NOTE | 2024-10-22 17:46 | EKG12_ITS ---
Test Reason : ABN LABS Blood Pressure : */* mmHG Vent. Rate : 85 BPM Atrial Rate : 85 BPM P-R Int : 180 ms QRS Dur : 80 ms QT Int : 358 ms P-R-T Axes : 3 43 48 degrees QTcB Int : 426 ms Normal sinus rhythm Normal ECG Confirmed by Osman Wright ([id number]), clinical editor LAURY PERSAUD ([id number]) on 10/25/2024 10:50:00 AM Referred By: Confirmed By: Osman Wright
--- NOTE | 2024-10-22 17:47 | EX.ED.DYSGE1 ---
HPI History of Present Illness Chief Complaint: Abn Labs Detail of Chief Complaint: Low-sodium Informant: patient and family Narrative Narrative: Patient presents the emergency department complaint low sodium. Patient apparently had a visit postop with Dr. Rogel after having carotid endarterectomy. She was complaining of feeling fatigued and had a difficult time swallowing so she had CT of head and neck which was unremarkable apparently but lab work noted she was hyponatremic with a sodium of 119. Patient is on new medications as she had a stroke about a month ago. She is on losartan with hydrochlorothiazide. She is on aspirin and Plavix. She is on atorvastatin as well. She denies recent illness. She has had decreased urine output. Patient is eating less but still drinking fluids [facility] Medical History (Updated 10/22/24 @ 19:[address] Jony Lambert, ) Wears glasses Wears dentures Bruising Insulin dependent diabetes mellitus High cholesterol Stroke/cerebrovascular accident History of echocardiogram History of edema CVA (cerebral vascular accident) Diabetes mellitus, type 2 Obesity (BMI 30-39.9) GERD (gastroesophageal reflux disease) Hypertension Diabetes Home Medications ?Medication ?Instructions ?Recorded ?Last Taken ?Type aspirin 81 mg chewable tablet 81 mg PO BREAKFAST SUPPLEMENT #0 09/03/24 10/22/24 Rx tabs atorvastatin 40 mg tablet 40 mg PO QHS CHOLESTEROL #30 tabs 09/03/24 10/21/24 Rx clopidogrel 75 mg tablet 75 mg PO DAILY BLOOD THINNER #30 09/03/24 10/22/24 Rx tabs insulin glargine 100 unit/mL (3 10 unit (0.1 mL) subcut QHS 09/03/24 10/21/24 Rx mL) subcutaneous pen (Lantus DIABETES #15 mL Solostar U-100 Insulin) metformin 500 mg tablet 500 mg PO BID DIABETES #60 tabs 09/03/24 10/21/24 Rx Held on 10/06/24. Instructions: Resume on 10/08/24. losartan 50 mg-hydrochlorothiazide 1 tab PO QDAY BP 09/17/24 10/21/24 History 12.5 mg tablet amlodipine 5 mg tablet 5 mg PO BID 10/22/24 10/22/24 History omeprazole 40 mg capsule,delayed 40 mg PO QDAY 10/22/24 10/22/24 History release Allergy/AdvReac Type Severity Reaction Status Date / Time No Known Allergies Allergy Verified 10/22/24 17:32 Surgical History History of cholecystectomy Social History Smoking Status: Never smoker ROS ROS ED ROS Narrative Fatigue Review of Systems ROS Unobtainable: other Constitutional Constitutional ED: Reports lethargy; Denies chills, fever(s), sweats or weight loss Eyes Eyes: Denies blurry vision, change in vision or diplopia ENT ENT ED: Denies rhinorrhea or sore throat Cardiovascular Cardiovascular: Denies chest pain, orthopnea or racing heartbeat Respiratory/Chest Respiratory/Chest: Denies cough, dyspnea, dyspnea on exertion, orthopnea or sputum Gastrointestinal Gastrointestinal: Denies abdominal pain, diarrhea, nausea or vomiting Genitourinary Genitourinary ED: Denies dysuria, hematuria or urinary frequency Musculoskeletal Musculoskeletal: Denies arthralgias, back pain, myalgias or neck pain Integumentary Denies abscess, Abrasions or rash Neurologic Neurologic: Denies headache(s) or weakness Psychiatric Psychiatric: Denies anxiety, depression or suicidal thoughts Endocrine Endocrinology: Denies polydipsia, polyphagia or polyuria Hematologic/Lymphatic Hematologic/Lymphatic: Denies easy bleeding, easy bruising or lymphadenopathy Allergic/Immunologic Allergic/Immunologic ED: Denies mouth swelling, tongue swelling or urticaria EXAM Physical Exam Const Vital Signs: 10/22/24 17:19 10/22/24 17:30 Temperature 96.5 F L Temperature Source Temporal Pulse Rate 89 Respiratory Rate 18 Respiratory Effort Normal Respiratory Pattern Normal Blood Pressure 134/54 H Blood Pressure Mean 80 Pulse Ox 97 Oxygen Delivery Method Room Air Positive well nourished and well developed General Appearance ED: well developed and NAD HEENT Reports TM's clear and moist mucous membranes normocephalic and atraumatic; Negative for trauma or tenderness Tympanic Membrane ED: Yes TM's clear Eyes PERRL and EOMs intact bilaterally General Eye ED: Negative for pale conjunctiva or scleral icterus Neck no lymphadenopathy, supple and no JVD General: Negative for tenderness Chest Wall inspection of chest normal and palpation of chest normal Chest: Negative for tenderness Resp normal respiratory effort and clear to auscultation bilaterally Effort and Inspection: Negative for respiratory distress or pain with movement Auscultation: Negative for rhonchi, wheezes or diminished lung sounds Cardio regular rate, regular rhythm, S1 normal heart sound, S2 normal heart sound and no murmurs Peripheral Pulses: pulses 2+ throughout GI normal to inspection, nondistended, normoactive bowel sounds, soft to palpation, non-tender, non-distended and no masses Back/Spine no CVA tenderness and no thoracic nor lumbar tenderness Extremity Extremity Narrative: +2 edema both lower extremity General Extremety ED: Yes edema General Extremity: edema Neuro oriented x3, CN's II-XII intact bilaterally, no sensory deficits noted and gait normal Sensorium / Orientation: awake, alert, oriented to person, oriented to place and oriented to time Motor Exam: strength 5/5 throughout and strength abnormal Psych mental status grossly normal Skin no rashes or lesions noted and no wounds MDM MDM MDM Narrative Medical decision making narrative: Patient presents to the emergency department with complaint of hyponatremia with recent surgery. Patient started few new medications since her stroke a month ago. Patient also started a diuretic medication. IV line established. EKG obtained on arrival shows sinus rhythm with rate of 85 bpm with no acute ST segment changes. CBC with differential obtained showed a white count 14.7 with hemoglobin 11.3 and platelet count of 399. Chemistry showed sodium 119 with potassium 4.3 and chloride of 82. BUN 15 creat 1.26. Case will be discussed with hospitalist to evaluate patient for admission for acute hyponatremia Lab Data Attestation: I reviewed the patient's lab results. Labs: Laboratory Results - last 24 hr 10/22/24 18:00 WBC 14.7 H RBC 3.73 L Hgb 11.3 L Hct 32.5 L MCV 87.1 MCH 30.3 MCHC 34.8 RDW Std Deviation 40.0 RDW Coeff of Óscar 12.6 Plt Count 399 MPV 10.0 Immature Gran % (Auto) 0.600 Neut % (Auto) 77.8 H Lymph % (Auto) 10.8 L [place] % (Auto) 10.3 H Eos % (Auto) 0.1 Baso % (Auto) 0.4 Absolute Neuts (auto) 11.4 H Absolute Lymphs (auto) 1.59 Nucleated RBC % 0 Sodium 119 L* Potassium 4.3 Chloride 82 L Carbon Dioxide 20.7 L Anion Gap 16 H BUN 15 Creatinine 1.26 H Estim Creat Clear Calc 30.51 L Est GFR (MDRD) Non-Af 42 L BUN/Creatinine Ratio 11.5 Glucose 160 H Calcium 9.2 EKG Initial EKG: Attestation: I personally reviewed and interpreted this EKG as follows: Comments: Sinus rhythm with ventricular rate of 85 bpm with no acute ST segment changes Discharge Plan Dx/Rx/DC Orders Clinical Impression: Acute hyponatremia, Weakness, Hypertension, History of stroke Disposition Disposition: Acute Care Hospital [facility]
[2024-10-22] MEDS: 0.9% Normal Saline (1000mL) 1,000 ML 150 ML IV (18:12)
[2024-10-22 18:20] LABS: Absolute Lymphocyte Count 1.59 X10^3/uL (0.83-4.51); Absolute Neutrophil Count 11.4 X10^3/uL (2.0-7.7); Basophil# 0.06 X10^3/uL; Basophil% 0.4 % (0-1); Eosinophil# 0.01 X10^3/uL; Eosinophils% 0.1 % (0-5); Hematocrit 32.5 % (37-47); Hemoglobin 11.3 g/dL (12.0-15.0); Lymphocyte # 1.59 X10^3/ul (0.83-4.51); Lymphocyte % 10.8 % (19-41); Mean Corp Hgb Conc 34.8 g/dL (32-36); Mean Corpuscular Hgb 30.3 pg (27.0-32.0); Mean Corpuscular Volume 87.1 fL (81-99); Monocyte# 1.51 X10^3/uL; Monocyte% 10.3 % (0-10); NRBC Flagged by Analyzer 0 % (0-5); Neutrophil # 11.41 X10^3/uL (2.7-7.7); Neutrophil % 77.8 % (47-70); POSITIVE DIFFERENTIAL YES; Platelet Count 399 K/mm3 (150-450); RBC Distribution Width CV 12.6 % (11.6-14.6); Red Blood Count 3.73 M/mm3 (4.2-5.4); White Blood Count 14.7 K/mm3 (4.4-11.0)
[2024-10-22 18:28] LABS: Differential Indicated SCAN CRITERIA MET
[2024-10-22 19:02] LABS: Anion Gap 16 (5-15); BUN 15 mg/dL (4-19); BUN/Creat Ratio 11.5 RATIO (10-20); Calcium,Total 9.2 mg/dL (7.6-11.0); Carbon Dioxide 20.7 mmol/L (21.0-32.0); Chloride 82 mmol/L (98-108); Creatinine, Serum 1.26 mg/dL (0.70-1.20); EST Glomerular Filtration Rate 42 (>60); Estimated Creatinine Clearance 30.51 ml/min (50-250); Glucose 160 mg/dL (70-99); Potassium 4.3 mmol/L (3.3-5.1); Sodium Level 119 mmol/L (133-145)
[2024-10-22 19:14] VITALS: BP 153/52; PULSE 78; O2SAT 96
[2024-10-22 19:15] VITALS: BP 153/52; PULSE 80; RESP 16; TEMP 35.8; O2SAT 97
[2024-10-22 19:15] LABS: Bacteria 0 SEEN /hpf (None Seen); Mucous, Urine 0 SEEN /hpf (<or=2+); Squamous Epithelial Cells - UA 0 SEEN /hpf (5-10)
[2024-10-22 19:21] LABS: Color, Urine Straw (Yellow); Glucose, Dipstick Normal (Normal); Ketone-Dipstick Negative (Negative); Leukocyte Esterase-Dipstick Negative /ul (Negative); Nitrite-Dipstick Negative (Negative); Occult Blood-Urine Negative /ul (Negative); Protein-Dipstick 15 mg/dl (Negative); Specific Gravity, Urine 1.005 (1.002-1.030); Urine Bilirubin Dipstick Negative (Negative); Urine Clarity Clear (Clear); Urine Urobilinogen Normal (Normal)
[2024-10-22 20:06] LABS: Red Blood Cells-Urine 0-5 SEEN /hpf (0-5); White Blood Cells 0-5 SEEN /hpf (0-5)
[2024-10-22 20:11] VITALS: BMI 37.8
--- NOTE | 2024-10-22 20:11 | PCM.HP.STD ---
HPI - General General Date of Admission: 10/22/24 HPI Narrative BLAYNE MOODY, is a 83 F who presents to the hospital from the vascular surgeons office for abnormal labs. Sodium today was 119 here in the ER which is what it was earlier this afternoon. She denies any vomiting or diarrhea but has had some nausea as well as fatigue and weakness. Family has noticed maybe slight confusion but nothing significant. No seizure-like activity. Within the last 2 weeks she started a combination losartan-hydrochlorothiazide for her blood pressure. In the ER she was having difficulty voiding so she had about 400 cc on bladder scan so Lin was placed. She also has a little bit of a leukocytosis though she is afebrile, and there is no obvious signs of infection urine is clean. Her visit at the vascular surgeons office today with for postop evaluation of her right carotid stent as she had a stroke back in August. [facility] Medical History Wears glasses Wears dentures Bruising Insulin dependent diabetes mellitus High cholesterol Stroke/cerebrovascular accident History of echocardiogram History of edema CVA (cerebral vascular accident) Diabetes mellitus, type 2 Obesity (BMI 30-39.9) GERD (gastroesophageal reflux disease) Hypertension Diabetes Home Medications ?Medication ?Instructions ?Recorded ?Last Taken ?Type aspirin 81 mg chewable tablet 81 mg PO BREAKFAST SUPPLEMENT #0 09/03/24 10/22/24 Rx tabs atorvastatin 40 mg tablet 40 mg PO QHS CHOLESTEROL #30 tabs 09/03/24 10/21/24 Rx clopidogrel 75 mg tablet 75 mg PO DAILY BLOOD THINNER #30 09/03/24 10/22/24 Rx tabs insulin glargine 100 unit/mL (3 10 unit (0.1 mL) subcut QHS 09/03/24 10/21/24 Rx mL) subcutaneous pen (Lantus DIABETES #15 mL Solostar U-100 Insulin) metformin 500 mg tablet 500 mg PO BID DIABETES #60 tabs 09/03/24 10/21/24 Rx Held on 10/06/24. Instructions: Resume on 10/08/24. losartan 50 mg-hydrochlorothiazide 1 tab PO QDAY BP 09/17/24 10/21/24 History 12.5 mg tablet amlodipine 5 mg tablet 5 mg PO BID 10/22/24 10/22/24 History omeprazole 40 mg capsule,delayed 40 mg PO QDAY 10/22/24 10/22/24 History release Allergy/AdvReac Type Severity Reaction Status Date / Time No Known Allergies Allergy Verified 10/22/24 17:32 Family History (Updated 10/22/24 @ 20:[address] Axel Lockwood MD) Other Diabetes Surgical History History of cholecystectomy Social History Smoking Status: Never smoker ROS Constitutional Constitutional: Reports fatigue and weakness; Denies chills, fever(s) or malaise Eyes Eyes: Denies blurry vision ENT HEENT: Denies headache(s) or nasal discharge Cardiovascular Cardiovascular: Denies chest pain, dyspnea on exertion or syncope Respiratory/Chest Respiratory/Chest: Denies cough, shortness of breath at rest or shortness of breath with exertion Gastrointestinal Gastrointestinal: Denies constipation, diarrhea, nausea or vomiting Genitourinary Genitourinary: Denies dysuria Neurologic Neurologic: Denies focal weakness, numbness or tremor(s) Psychiatric Psychiatric: Denies anxiety or depression Vital Signs Vital Signs Vital Signs: 10/22/24 17:19 10/22/24 17:30 10/22/24 19:14 Temperature 96.5 F L Temperature Source Temporal Pulse Rate 89 78 Respiratory Rate 18 Respiratory Effort Normal Respiratory Pattern Normal Blood Pressure 134/54 H 153/52 H Blood Pressure Mean 80 85 Pulse Ox 97 96 Oxygen Delivery Method Room Air Room Air 10/22/24 19:15 Temperature 96.5 F L Temperature Source Pulse Rate 80 Respiratory Rate 16 Respiratory Effort Respiratory Pattern Blood Pressure 153/52 H Blood Pressure Mean 85 Pulse Ox 97 Oxygen Delivery Method Weight Weight: 169 lb 15.622 oz Body Mass Index (BMI) 38.1 Physical Exam Narrative General: Alert, Oriented x3, Cooperative, No apparent distress HEENT: Atraumatic, PERRLA, EOMI, Normocephalic Oral: Moist Mucosa Neck: Supple, No JVD Lungs: Diminished, Normal air movement, No rhonchi, No wheeze, No rales Cardiovascular: Regular rate, Regular Rhythm, Normal S1, Normal S2, No murmurs Abdomen: Soft, Non Tender, Non-Distended, No Hepato-splenomegaly Extremities: Trace edema, Capillary Refill Less than 3 Seconds Skin: No rashes, No breakdown Musculoskeletal: No Tenderness to Palpation of Joints or Extremities Neurological: No focal neurological deficits, moves all extremities Psych/Mental Status: Normal Affect, Appropriate Results Lab / Micro Data 10/22/24 18:00 10/22/24 18:00 Labs: Laboratory Results - last 24 hr 10/22/24 18:00: WBC 14.7 H, RBC 3.73 L, Hgb 11.3 L, Hct 32.5 L, MCV 87.1, MCH 30.3, MCHC 34.8, RDW Std Deviation 40.0, RDW Coeff of Óscar 12.6, Plt Count 399, MPV 10.0, Immature Gran % (Auto) 0.600, Neut % (Auto) 77.8 H, Lymph % (Auto) 10.8 L, [place] % (Auto) 10.3 H, Eos % (Auto) 0.1, Baso % (Auto) 0.4, Absolute Neuts (auto) 11.4 H, Absolute Lymphs (auto) 1.59, Nucleated RBC % 0, Sodium 119 L*, Potassium 4.3, Chloride 82 L, Carbon Dioxide 20.7 L, Anion Gap 16 H, BUN 15, Creatinine 1.26 H, Estim Creat Clear Calc 30.51 L, Est GFR (MDRD) Non-Af 42 L, BUN/Creatinine Ratio 11.5, Glucose 160 H, Calcium 9.2 10/22/24 18:33: Urine Color Straw, Urine Clarity Clear, Urine pH 6.0, Ur Specific [place] 1.005, Urine Protein 15 H, Urine Glucose (UA) Normal, Urine Ketones Negative, Urine Occult Blood Negative, Urine Nitrite Negative, Urine Bilirubin Negative, Urine Urobilinogen Normal, Ur Leukocyte Esterase Negative, Urine RBC 0-5 SEEN, Urine WBC 0-5 SEEN, Ur Squamous Epith Cells 0 SEEN, Urine Bacteria 0 SEEN, Urine Mucus 0 SEEN Assessment & Plan Assessment/Plan (1) Acute hyponatremia: PLAN: Plan 1. Acute hyponatremia secondary to hydrochlorothiazide ? Will hold her losartan-hydrochlorothiazide ? Continue with IV fluids ? Will recheck sodium levels in the morning if no significant improvement will need to have urine electrolytes as well as urine and serum osmolalities to better assess the etiology of her hyponatremia 2. Essential HTN/HLD/status post carotid stent with history of CVA ? Continue with her Norvasc as well as her Lipitor, aspirin, Plavix ? Will monitor make adjustments as necessary ? May need to restart losartan only depending on what her blood pressure does 3. DM2 ? Continue with her Lantus ? Hold metformin ? Accu-Cheks ACHS ? Sliding scale insulin ? Will monitor make adjustments as necessary 4. GERD ? Stable ? Continue with PPI DVT: Lovenox 75 minutes was spent on direct patient care, including documentation as well as chart review and collaboration with colleagues Charges/Coding Visit Charges Inpatient E&M: 23310 Init Hosp L3
[2024-10-22 20:25] VITALS: BP 145/65; PULSE 81; RESP 18; TEMP 36.7; O2SAT 96
[2024-10-22] MEDS: 0.9% Normal Saline (1000mL) 1,000 ML 100 ML IV (20:44)
[2024-10-22] MEDS: 0.9% Saline Lock 10 ML Syringe IV (20:44)
[2024-10-22 21:57] LABS: Differential Comment SCANNED; Platelet Estimate ADEQUATE (ADEQ)
[2024-10-22 22:15] VITALS: BP 164/41; PULSE 82; RESP 17; TEMP 36.6; O2SAT 97
[2024-10-22] MEDS: Insulin Glargine-YFGN 100 UNIT/ML Pen 10 UNIT SC (22:19)
[2024-10-22] MEDS: Atorvastatin Calcium 40 MG Tablet PO (22:19)
[2024-10-22] MEDS: amLODIPine 5 MG Tablet PO (22:19)
[2024-10-22] MEDS: Insulin Lispro 100 UNIT/ML INSULN.PEN SC (22:23)
[2024-10-22 22:47] LABS: Bedside Glucose 199 mg/dL (74-106)
[2024-10-23 02:15] VITALS: BP 143/46; PULSE 83; RESP 16; TEMP 36.8; O2SAT 96
[2024-10-23 06:03] LABS: Absolute Lymphocyte Count 1.51 X10^3/uL (0.83-4.51); Basophil# 0.06 X10^3/uL; Basophil% 0.5 % (0-1); Eosinophil# 0.06 X10^3/uL; Eosinophils% 0.5 % (0-5); Hematocrit 31.5 % (37-47); Hemoglobin 10.9 g/dL (12.0-15.0); Lymphocyte # 1.51 X10^3/ul (0.83-4.51); Lymphocyte % 13.7 % (19-41); Mean Corp Hgb Conc 34.6 g/dL (32-36); Mean Corpuscular Hgb 30.1 pg (27.0-32.0); Monocyte# 1.32 X10^3/uL; NRBC Flagged by Analyzer 0 % (0-5); Neutrophil # 7.96 X10^3/uL (2.7-7.7); Neutrophil % 72.5 % (47-70); Platelet Count 376 K/mm3 (150-450); RBC Distribution Width CV 12.5 % (11.6-14.6); Red Blood Count 3.62 M/mm3 (4.2-5.4)
[2024-10-23 06:30] VITALS: BP 149/62; PULSE 84; RESP 16; TEMP 36.7; O2SAT 97
[2024-10-23] MEDS: 0.9% Normal Saline (1000mL) 1,000 ML 100 ML IV (06:32)
[2024-10-23] MEDS: Insulin Lispro 100 UNIT/ML INSULN.PEN SC ×4 (06:37→21:27)
[2024-10-23 06:58] LABS: Bedside Glucose 170 mg/dL (74-106)
[2024-10-23 08:00] LABS: Anion Gap 13 (5-15); BUN 11 mg/dL (4-19); BUN/Creat Ratio 11.3 RATIO (10-20); Carbon Dioxide 21.8 mmol/L (21.0-32.0); Chloride 94 mmol/L (98-108); Creatinine, Serum 0.96 mg/dL (0.70-1.20); EST Glomerular Filtration Rate 58 (>60); Estimated Creatinine Clearance 39.85 ml/min (50-250); Glucose 168 mg/dL (70-99); Sodium Level 128 mmol/L (133-145)
[2024-10-23] MEDS: Pantoprazole Sodium 40 MG Tablet PO (10:07)
[2024-10-23] MEDS: Enoxaparin 40 MG/0.4 ML Syringe SC (10:07)
[2024-10-23] MEDS: Clopidogrel Bisulfate 75 MG Tablet PO (10:07)
[2024-10-23] MEDS: Aspirin 81 MG TAB.CHEW PO (10:07)
[2024-10-23] MEDS: amLODIPine 5 MG Tablet PO ×2 (10:07→21:28)
--- NOTE | 2024-10-23 10:11 | PCM.PN.HOSP ---
Reason for Visit Reason for Visit: Diagnoses Hypo-osmolality and hyponatremia (10/22/24) Subjective Subjective Saw patient at bedside this morning. Patient was sitting back comfortably in bed, conversing normally, in no acute distress. Noted that she still does not feel at her baseline but does feel improved today compared to yesterday. Does not feel nearly as confused. Feels less dehydrated as well. Denies any pain or discomfort today. No other new concerns morning. Objective Data Objective Data Vital Signs: Vital Signs Temp Pulse Resp BP Pulse Ox O2 Del Method 98.0 F 84 16 149/62 H 97 Room Air 10/23/24 06:30 10/23/24 06:30 10/23/24 06:30 10/23/24 06:30 10/23/24 06:30 10/23/24 06:30 Oxygen Delivery Method Room Air Weight: 76.43 kg Body Mass Index (BMI) 37.8 Intake & Output: Intake and Output for Last 24 Hours 10/21/24 10/22/24 10/23/24 23:59 23:59 23:59 Intake Total 582.5 / 582.5 1080 / 1080 Output Total 450 / 450 1100 / 1100 Balance 132.5 / 132.5 -20 / -20 Lab / Micro Data 10/23/24 05:51 10/23/24 05:51 Labs: Laboratory Results - last 24 hr 10/22/24 18:00: WBC 14.7 H, RBC 3.73 L, Hgb 11.3 L, Hct 32.5 L, MCV 87.1, MCH 30.3, MCHC 34.8, RDW Std Deviation 40.0, RDW Coeff of Óscar 12.6, Plt Count 399, MPV 10.0, Immature Gran % (Auto) 0.600, Neut % (Auto) 77.8 H, Lymph % (Auto) 10.8 L, [place] % (Auto) 10.3 H, Eos % (Auto) 0.1, Baso % (Auto) 0.4, Absolute Neuts (auto) 11.4 H, Absolute Lymphs (auto) 1.59, Nucleated RBC % 0, Differential Comment SCANNED, Platelet Estimate ADEQUATE, Sodium 119 L*, Potassium 4.3, Chloride 82 L, Carbon Dioxide 20.7 L, Anion Gap 16 H, BUN 15, Creatinine 1.26 H, Estim Creat Clear Calc 30.51 L, Est GFR (MDRD) Non-Af 42 L, BUN/Creatinine Ratio 11.5, Glucose 160 H, Calcium 9.2 10/22/24 18:33: Urine Color Straw, Urine Clarity Clear, Urine pH 6.0, Ur Specific [place] 1.005, Urine Protein 15 H, Urine Glucose (UA) Normal, Urine Ketones Negative, Urine Occult Blood Negative, Urine Nitrite Negative, Urine Bilirubin Negative, Urine Urobilinogen Normal, Ur Leukocyte Esterase Negative, Urine RBC 0-5 SEEN, Urine WBC 0-5 SEEN, Ur Squamous Epith Cells 0 SEEN, Urine Bacteria 0 SEEN, Urine Mucus 0 SEEN 10/22/24 22:13: POC Glucose 199 H 10/23/24 05:51: WBC 11.0, RBC 3.62 L, Hgb 10.9 L, Hct 31.5 L, MCV 87.0, MCH 30.1, MCHC 34.6, RDW Std Deviation 40.0, RDW Coeff of Óscar 12.5, Plt Count 376, MPV 10.0, Immature Gran % (Auto) 0.800, Neut % (Auto) 72.5 H, Lymph % (Auto) 13.7 L, [place] % (Auto) 12.0 H, Eos % (Auto) 0.5, Baso % (Auto) 0.5, Absolute Neuts (auto) 8.0 H, Absolute Lymphs (auto) 1.51, Nucleated RBC % 0, Sodium 128 L, Potassium 4.0, Chloride 94 L, Carbon Dioxide 21.8, Anion Gap 13, BUN 11, Creatinine 0.96, Estim Creat Clear Calc 39.85 L, Est GFR (MDRD) Non-Af 58 L, BUN/Creatinine Ratio 11.3, Glucose 168 H, Calcium 9.0 10/23/24 06:35: POC Glucose 170 H Physical Exam Const alert, oriented x3 and no apparent distress Constitutional Narrative: Elderly female, class II obesity, mild to moderately fatigued appearing but is A&Ox3 today and sitting back comfortably in bed, conversing normally, in no acute distress. General Appearance: cooperative and comfortable HEENT normocephalic, head/scalp atraumatic, hearing grossly normal bilaterally, nasal mucous membranes and turbinates normal and moist oral mucous membranes Eyes PERRL, EOMs intact bilaterally and conjunctivae normal Neck full ROM Chest inspection of chest normal Resp normal respiratory effort, normal air movement, no use of accessory muscles and clear to auscultation bilaterally Cardio regular rate, regular rhythm, no murmurs and peripheral pulses 2+ throughout GI normal to inspection, nondistended, normoactive bowel sounds, soft to palpation, non-tender and non-distended Back/Spine normal ROM Extremity normal to inspection, full ROM and no pedal edema Skin no rashes or lesions noted Psych mental status grossly normal Assessment & Plan Assessment/Plan (1) Acute hyponatremia: PLAN: Plan Patient is an 83-year-old female who presented to [facility] ED on 10/22/2024 with abnormal labs, weakness and mild confusion. 1. Acute hyponatremia, improving ? Sodium 119, chloride 82 on admit. Sodium level was 134 on 10/01 and baseline is around 135. Presume secondary to hydrochlorothiazide that was initiated recently. Only mild confusion with nausea on admission, no need for hypertonic saline. Treated with IV normal saline 100 cc/hr, repeat sodium 128 on morning of 10/23. Normal saline discontinued. Okay for regular diet with no salt or fluid restriction. Will recheck sodium level at noon today and again tomorrow morning. Hydrochlorothiazide discontinued. 2. Hypertension, hyperlipidemia, history of CVA s/p carotid stenting ? Follows with vascular surgery. Had TCAR procedure with Dr. Rogel recently on 10/05. Tolerated procedure well, no postoperative complications. Notably had losartan-hydrochlorothiazide added to her blood pressure regimen about 2 weeks ago by her PCP for systolic BPs running in the 170s to 180s at home. Hydrochlorothiazide discontinued as above. Continue home aspirin, Plavix, statin, amlodipine and losartan. IV hydralazine as needed ordered as well. Chronic medical conditions: ? Class II obesity: BMI 37 on admit. Complicates hospital course, care and prognosis. ? Type 2 diabetes mellitus: Treating with home Lantus 10 units at night and Humalog sliding scale insulin with meals while inpatient, adjust as needed. ? GERD: Continue home PPI. DVT prophylaxis: Lovenox CODE STATUS: DNR CCA, DNI Expected disposition: Home, 1 to 2 days Total clinical time spent by myself addressing the patient's medical issues, reviewing all the data, and collaborating with patient's care team: 35 minutes. Charges/Coding Visit Charges Inpatient E&M: 55970 Subs Hosp L2
[2024-10-23] MEDS: Ensure Plus High Protein 120 ML LIQUID PO (10:16)
--- NOTE | 2024-10-23 10:45 | CASEMGMT ---
ORESTES MARK Chart Review: Pt had a R TCAR procedure on 10/05/24 and was admitted to ICU for routine monitoring. Pt tolerated procedure well, was DC'd home with family support in place on 10/06/24. Pt was sent to hospital from follow up appointment with vascular surgeon due to abnormal labs. Sodium level is 119. ORESTES MARK into pt room. Pt sitting up in bed in no distress. Pt states she was able to picker/puller new prescriptions as ordered and has been taking them as prescribed. Pt denies any DC needs, does not want any HHC at this time. Pt plans to DC home with family support.
[2024-10-23 12:15] LABS: Bedside Glucose 242 mg/dL (74-106)
[2024-10-23 12:30] VITALS: BP 160/50; PULSE 85; RESP 16; TEMP 36.3; O2SAT 95
[2024-10-23 13:07] LABS: Anion Gap 12 (5-15); BUN 9 mg/dL (4-19); BUN/Creat Ratio 10.2 RATIO (10-20); Calcium,Total 8.9 mg/dL (7.6-11.0); Chloride 95 mmol/L (98-108); Creatinine, Serum 0.92 mg/dL (0.70-1.20); EST Glomerular Filtration Rate 61 (>60); Estimated Creatinine Clearance 41.59 ml/min (50-250); Glucose 240 mg/dL (70-99); Potassium 4.4 mmol/L (3.3-5.1); Sodium Level 129 mmol/L (133-145)
[2024-10-23] MEDS: Losartan Potassium 50 MG Tablet PO (14:22)
[2024-10-23 17:05] LABS: Bedside Glucose 206 mg/dL (74-106)
[2024-10-23 18:30] VITALS: BP 149/55; PULSE 89; RESP 17; TEMP 36.6; O2SAT 97
[2024-10-23 20:36] VITALS: BP 150/62; PULSE 96; RESP 16; TEMP 36.8; O2SAT 100
[2024-10-23] MEDS: Insulin Glargine-YFGN 100 UNIT/ML Pen 10 UNIT SC (21:28)
[2024-10-23] MEDS: Atorvastatin Calcium 40 MG Tablet PO (21:28)
[2024-10-23 22:50] LABS: Bedside Glucose 195 mg/dL (74-106)
[2024-10-24 03:29] VITALS: BP 138/56; PULSE 84; RESP 18; TEMP 36.8; O2SAT 98
[2024-10-24] MEDS: Insulin Lispro 100 UNIT/ML INSULN.PEN SC ×3 (06:04→17:10)
[2024-10-24 06:43] LABS: Bedside Glucose 156 mg/dL (74-106)
[2024-10-24 07:43] LABS: Anion Gap 13 (5-15); BUN 8 mg/dL (4-19); BUN/Creat Ratio 8.4 RATIO (10-20); Calcium,Total 9.2 mg/dL (7.6-11.0); Carbon Dioxide 20.9 mmol/L (21.0-32.0); Chloride 98 mmol/L (98-108); EST Glomerular Filtration Rate 63 (>60); Estimated Creatinine Clearance 42.51 ml/min (50-250); Glucose 148 mg/dL (70-99); Sodium Level 132 mmol/L (133-145)
[2024-10-24 09:30] VITALS: BP 168/48; PULSE 84; RESP 17; TEMP 36.4; O2SAT 97
[2024-10-24] MEDS: Clopidogrel Bisulfate 75 MG Tablet PO (10:06)
[2024-10-24] MEDS: Enoxaparin 40 MG/0.4 ML Syringe SC (10:06)
[2024-10-24] MEDS: Pantoprazole Sodium 40 MG Tablet PO (10:06)
[2024-10-24] MEDS: amLODIPine 5 MG Tablet PO (10:06)
[2024-10-24] MEDS: Aspirin 81 MG TAB.CHEW PO (10:06)
[2024-10-24] MEDS: Losartan Potassium 50 MG Tablet PO (10:06)
[2024-10-24 12:57] LABS: Bedside Glucose 252 mg/dL (74-106)
--- NOTE | 2024-10-24 14:35 | PCM.DC.SUM ---
Providers Date of Admission: 10/22/24 Date of Discharge: 10/24/24 Primary Care Physician: Dr. Divya Hinojosa MD Reason For Visit: ACUTE HYPONATREMIA Diagnosis Discharge Diagnosis (1) Acute hyponatremia: Status: Acute Code(s): E87.1 - Hypo-osmolality and hyponatremia Medications at Discharge Home Medications aspirin 81 mg chewable tablet 81 mg PO BREAKFAST SUPPLEMENT #0 tabs 09/03/24 atorvastatin 40 mg tablet 40 mg PO QHS CHOLESTEROL #30 tabs 09/03/24 clopidogrel 75 mg tablet 75 mg PO DAILY BLOOD THINNER #30 tabs 09/03/24 insulin glargine 100 unit/mL (3 mL) subcutaneous pen (Lantus Solostar U-100 Insulin) 10 unit (0.1 mL) subcut QHS DIABETES #15 mL 09/03/24 metformin 500 mg tablet 500 mg PO BID DIABETES #60 tabs 09/03/24 amlodipine 5 mg tablet 5 mg PO BID 10/22/24 omeprazole 40 mg capsule,delayed release 40 mg PO QDAY 10/22/24 losartan 50 mg tablet 50 mg PO DAILY 30 days #30 tabs 10/24/24 Hospital Course Operations None Procedures - (CTA head/neck) Summary of Care Provided Minutes Spent on Discharge: 35 Hospital Course: Patient is an 83-year-old female who presented to [facility] ED on 10/22/2024 with abnormal labs, weakness and mild confusion. Hospital course as noted below. Patient discharged home in stable condition on 10/24. 1. Acute hyponatremia, improving ? Sodium 119, chloride 82 on admit. Sodium level was 134 on 10/01 and baseline is around 135. Presume secondary to hydrochlorothiazide that was initiated recently. Only mild confusion with nausea on admission, no need for hypertonic saline. Treated with IV normal saline 100 cc/hr, repeat sodium 128 on morning of 10/23. Normal saline discontinued. Repeat sodium 129 on afternoon of 10/23 and most recent sodium 132 on morning of discharge. Patient mentation improved and feeling much improved overall from admission. Hydrochlorothiazide discontinued and placed on allergy list. Suspect sodium will continue to improve, no need for repeat labs at this point. 2. Hypertension, hyperlipidemia, history of CVA s/p carotid stenting ? Follows with vascular surgery. Had TCAR procedure with Dr. Rogel recently on 10/05. Tolerated procedure well, no postoperative complications. Notably had losartan-hydrochlorothiazide added to her blood pressure regimen about 2 weeks ago by her PCP for systolic BPs running in the 170s to 180s at home. Hydrochlorothiazide discontinued as above. Continue home aspirin, Plavix, statin, amlodipine and losartan on discharge. Chronic medical conditions: ? Class II obesity: BMI 37 on admit. Complicated hospital course, care and prognosis. ? Type 2 diabetes mellitus: Treated with home Lantus 10 units at night and Humalog sliding scale insulin with meals while inpatient. Continue home Lantus and resume metformin on discharge. ? GERD: Continue home PPI. Total clinical time spent by myself addressing the patient's medical issues, reviewing all the data, and collaborating with patient's care team: 35 minutes. Physical Exam Const alert, oriented x3 and no apparent distress Constitutional Narrative: Elderly female, class II obesity, mildly fatigued appearing but improved from admission, otherwise sitting back comfortably in bed, conversing normally, in no acute distress. General Appearance: cooperative and comfortable HEENT normocephalic, head/scalp atraumatic, hearing grossly normal bilaterally, nasal mucous membranes and turbinates normal and moist oral mucous membranes Eyes PERRL, EOMs intact bilaterally and conjunctivae normal Neck full ROM Chest inspection of chest normal Resp normal respiratory effort, normal air movement, no use of accessory muscles and clear to auscultation bilaterally Cardio regular rate, regular rhythm, no murmurs and peripheral pulses 2+ throughout GI normal to inspection, nondistended, normoactive bowel sounds, soft to palpation, non-tender and non-distended Back/Spine normal ROM Extremity normal to inspection, full ROM and no pedal edema Skin no rashes or lesions noted Psych mental status grossly normal Weight / BMI Weight Weight: 76.43 kg Body Mass Index (BMI) 37.8 ABG / Lab / Microbiology Data 10/23/24 05:51 10/24/24 05:46 Laboratory: Laboratory Results - last 24 hr 10/23/24 16:43: POC Glucose 206 H 10/23/24 21:26: POC Glucose 195 H 10/24/24 05:46: Sodium 132 L, Potassium 4.0, Chloride 98, Carbon Dioxide 20.9 L, Anion Gap 13, BUN 8, Creatinine 0.90, Estim Creat Clear Calc 42.51 L, Est GFR (MDRD) Non-Af 63, BUN/Creatinine Ratio 8.4 L, Glucose 148 H, Calcium 9.2 10/24/24 06:03: POC Glucose 156 H 10/24/24 12:36: POC Glucose 252 H D/C Instructions DC O2, CPAP, BIPAP Needs Home O2 Discharge instructions: No Meaningful Use Info Meaningful Use Meaningful Use Diagnoses (Choose all that apply): None applicable Ischemic Stroke Statin Dosing Therapy Reference: STATIN DOSE THERAPY REFERENCE: * Patients > 75 years receive moderate or high dose statin therapy. * Patients 75 years or YOUNGER should receive HIGH intensity statin dose unless contraindicated. You will be required to document reason for non-treatment if statin daily dose does not meet guidelines. HIGH DOSE STATIN THERAPY DAILY Atorvastatin > than or = to 40 mg Rosuvastatin > than or = to 20 mg Amlodipine + Atorvastatin > than or = to 2.5/40 mg Ezetimibe + Simvastatin 10/80 mg Simvastatin 80mg Discharge Plan Admission Admit Date/Time: 10/22/24 19:28 Primary Reason for Your Visit: abnormal labs and fatigue Attending Provider: Familia Manriquez Primary Care Provider: Divya Hinojosa Consulting Providers: Axel Lockwood Instructions Additional Instructions / Restrictions: Stop taking the losartan-hydrochlorothiazide that had recently been prescribed as the hydrochlorothiazide was very likely the cause of the low sodium level. Please start taking the losartan 50 mg daily as noted below. Follow-up with your primary care doctor as needed. Discharge Orders/Prescriptions Prescriptions: New losartan 50 mg Tablet 50 mg PO DAILY 30 Days Qty: 30 2RF Continued amlodipine 5 mg tablet 5 mg PO BID omeprazole 40 mg capsule,delayed release(DR/EC) 40 mg PO QDAY atorvastatin 40 mg Tablet 40 mg PO QHS Qty: 30 1RF aspirin 81 mg Tablet,Chewable 81 mg PO BREAKFAST Qty: 0 0RF clopidogrel 75 mg Tablet 75 mg PO DAILY Qty: 30 1RF metformin 500 mg tablet 500 mg PO BID Qty: 60 1RF insulin glargine [Lantus Solostar U-100 Insulin] 100 unit/mL (3 mL) insulin pen 10 unit subcut QHS Qty: 15 0RF Discontinued losartan-hydrochlorothiazide 50-12.5 mg tablet 1 tab PO QDAY Referrals / Follow Up: Divya Hinojosa MD [Primary Care Provider] - Disposition Disposition (needs filled in before D/C Order can be placed): Home, Self Care Charges/Coding Visit Charges Inpatient E&M: 80038 Disch Hosp >30min
[2024-10-24 17:32] LABS: Bedside Glucose 263 mg/dL (74-106)
== END 2024-10-24 18:19 | disposition home or self-care (01) | DRG 641 ==
LOC: ED 18:44 → PCU 19:40
PROVIDERS: Admitting Provider Family Medicine; Emergency Provider Emergency Medicine; PCP Internal Medicine; Visit Provider Hospitalist
DX: E87.1 Hypo-osmolality and hyponatremia (principal); E11.9 Type 2 diabetes mellitus without complications; Z66 Do not resuscitate; I10 Essential (primary) hypertension; I65.21 Occlusion and stenosis of right carotid artery; I77.9 Disorder of arteries and arterioles, unspecified; Z68.37 Body mass index [BMI] 37.0-37.9, adult; Z79.4 Long term (current) use of insulin; K21.9 Gastro-esophageal reflux disease without esophagitis; E78.2 Mixed hyperlipidemia; Z79.84 Long term (current) use of oral hypoglycemic drugs; Z79.82 Long term (current) use of aspirin; E66.812 Obesity, class 2; Z86.73 Personal history of transient ischemic attack (TIA), and cerebral infarction without residual deficits; Z79.02 Long term (current) use of antithrombotics/antiplatelets; Z79.899 Other long term (current) drug therapy
CPT/HCPCS: 36415; 51702; 70496; 70498; 80048; 81001; 82962; 85025; 93005; 97110; 97116; 97162; 97802; 99285; Q9967; A4216

== ENCOUNTER → 2024-10-22 | Outpatient (CLI) | payer MEDICARE, SELFPAY ==
--- NOTE | 2024-10-22 15:10 | CT_ITS ---
PROCEDURE: CTA HEAD AND NECK W/ CONTRAST 10/22/2024 REASON FOR EXAM: S/P R TCAR, IMPAIRED GAG REFLEX/INABILITY TO SWALL TECHNIQUE: CTA imaging of the head and neck from the aortic arch to the skull vertex with out contrast and with intravenous contrast. Multiplanar and multisequence images were obtained. CONTRAST: Isovue 370 VOLUME: 100 mL. One or more dose reduction techniques were used (e.g., Automated exposure control, adjustment of the mA and/or kV according to patient size, use of iterative reconstruction technique). RADIATION DOSE SUMMARY: CTDlvol: 44.99+ 12.46+ 20.41 mGy DLP: 1569.28 mGycm COMPARISON: None. FINDINGS: Aortic Arch: Atherosclerosis without significant stenosis. Brachiocephalic and Subclavians: Patent. RIGHT Carotid: Right CCA: Patent stent. Right ICA: Patent stent. Right ECA: LEFT Carotid: Left CCA: Atherosclerosis without hemodynamically significant stenosis. Left ICA: Atherosclerosis without hemodynamically significant stenosis. Left ECA: Vertebrals: Patent. RIGHT Vertebral: Patent. LEFT Vertebral: Patent. Anatomy: [place] anatomy is normal. Aneurysm or avm: None. Anterior cerebral arteries: Unremarkable: Middle cerebral arteries: Unremarkable. Basilar artery: Unremarkable. Posterior cerebral arteries: Unremarkable. Other major branches of the posterior circulation: Unremarkable. Other findings: Neck: Right thyroid 3.5 x 2.7 cm nodule extending into the upper mediastinum. Lungs: Bones: Degenerative changes of the spine. CT/CTA Head AND Neck W/ Contrast IMPRESSION: No acute arterial abnormalities of the head or neck. Patent right CCA/ICA stent. Large right thyroid nodule. Further characterization with ultrasound is recomm ended. Reading Location: [place] [id number]
== END | disposition home or self-care (01) ==
LOC: CT 14:55
PROVIDERS: PCP Internal Medicine; Referring Provider Physician Assistant; Visit Provider Physician Assistant
DX: I65.21 Occlusion and stenosis of right carotid artery (principal); I77.9 Disorder of arteries and arterioles, unspecified
CPT/HCPCS: 70496; 70498; Q9967

== ENCOUNTER 2024-10-29 23:24 | Emergency (ER) | payer MEDICARE, SELFPAY ==
[2024-10-29 23:24] VITALS: BP 203/55; PULSE 101; RESP 18; TEMP 36.1; O2SAT 98; BMI 38.2
--- NOTE | 2024-10-30 00:13 | EDS_ITS ---
HPI History of Present Illness Chief Complaint: Wound Check Informant: patient and family Narrative Narrative: 83-year-old female states she accidentally injured her right lower leg about 8 hours ago, was the corner of a car door as it was closing, grazed her leg, she did not have a major injury, was pretty minor but it has been bleeding and they have had difficulty getting it to stop. She was just recently admitted to the hospital for stroke and discharged on aspirin and clopidogrel. She denies any systemic symptoms of anemia or fevers. [facility] Medical History Wears glasses Wears dentures Bruising Insulin dependent diabetes mellitus High cholesterol Stroke/cerebrovascular accident History of echocardiogram History of edema CVA (cerebral vascular accident) Diabetes mellitus, type 2 Obesity (BMI 30-39.9) GERD (gastroesophageal reflux disease) Hypertension Diabetes Home Medications ?Medication ?Instructions ?Recorded ?Last Taken ?Type aspirin 81 mg chewable tablet 81 mg PO BREAKFAST SUPPL EMENT #0 09/03/24 10/22/24 Rx tabs atorvastatin 40 mg tablet 40 mg PO QHS CHOLESTEROL #30 tabs 09/03/24 10/21/24 Rx clopidogrel 75 mg tablet 75 mg PO DAILY BLOOD THINNER #30 09/03/24 10/22/24 Rx tabs insulin glargine 100 unit/mL (3 10 unit (0.1 mL) subcu t QHS 09/03/24 10/21/24 Rx mL) subcutaneous pen (Lantus DIABETES #15 mL Solostar U-100 Insulin) metformin 500 mg tablet 500 mg PO BID DIABETES #60 t abs 09/03/24 10/21/24 Rx amlodipine 5 mg tablet 5 mg PO BID 10/22/24 5 History omeprazole 40 mg capsule,delayed 40 mg PO QDAY 5 10/22/24 History release losartan 50 mg tablet 50 mg PO DAILY 30 days #30 t abs 10/24/24 Unknown Rx Allergy/AdvReac Type Severity Reaction Status Date / Time hydrochlorothiazide AdvReac Severe hyponatremi Verified 10/29/24 23:24 a Family History (Updated 10/22/24 @ 20:[address] Axel Lockwood MD) Other Diabetes Surgical History History of cholecystectomy Social History Smoking Status: Never smoker ROS ROS ED Constitutional Constitutional ED: Denies chills, fatigue or fever(s) Cardiovascular Cardiovascular: Reports leg edema; Denies lightheadedness or syncope Musculoskeletal Musculoskeletal: Denies extremity pain Integumentary Reports as per HPI, wounds and other Details: Red/purplish skin around wound right lower leg Neurologic Neurologic: Denies headache(s) EXAM Physical Exam Const Vital Signs: 10/29/24 23:24 Temperature 97 F L Temperature Source Temporal Pulse Rate 101 H Respiratory Rate 18 Blood Pressure 203/55 H Blood Pressure Mean 104 Pulse Ox 98 Positive well nourished and well developed General Appearance ED: well developed HEENT normocephalic and atraumatic Resp normal respiratory effort Extremity full ROM Extremity Narrative: There is a superficial skin tear on the right mid thorpe, and the entire lower leg surrounding this is ecchymotic and nontender. It is nonblanching ecchymosis/purpura from the tibial tuberosity almost down to the ankle. There is no sign of infection. There is minimal oozing active bleeding, no other discharge. No tissue loss. All compartments are soft and nondistended. Full range of motion of the ankle and the knee without difficulty or limitation. Intact 2+/4 dorsalis pedis pulse. Neuro oriented x3 and CN's II-XII intact bilaterally Psych mental status grossly normal Skin Skin Narrative: skin tear right mid-thorpe; no lacerations MDM MDM MDM Narrative Medical decision making narrative: Patient and family worried about this being infected. She does not have any pain and there is no tenderness or signs of infection. All of this redness is blood/hematoma/ecchymosis. I do not think she needs to have blood counts obtained to check for blood loss, she does not have any symptoms of that, and although she does have a lot of ecchymosis it does not look like she has lost grams of hemoglobin on exam. Nurses cleansed and dressed with Surgif[place]am, bacitracin, and a dressing with a little bit of pressure. Neurovascular intact distally afterwards, she has the rest of the Surgif[place]am to use as an outpatient, and we discussed reasons to return. Discharge Plan Triage Chief Complaint: Wound Check ED Provider: Clay Resendez Dx/Rx/DC Orders Clinical Impression: Noninfected skin tear of right leg, Hematoma of right lower leg Instructions: ED Hematoma, ED Skin Tear (Skin Avulsion) Prescriptions: No Action amlodipine 5 mg tablet 5 mg PO BID omeprazole 40 mg capsule,delayed release(DR/EC) 40 mg PO QDAY atorvastatin 40 mg Tablet 40 mg PO QHS Qty: 30 1RF aspirin 81 mg Tablet,Chewable 81 mg PO BREAKFAST Qty: 0 0RF clopidogrel 75 mg Tablet 75 mg PO DAILY Qty: 30 1RF metformin 500 mg tablet 500 mg PO BID Qty: 60 1RF insulin glargine [Lantus Solostar U-100 Insulin] 100 unit/mL (3 mL) insulin pen 10 unit subcut QHS Qty: 15 0RF losartan 50 mg Tablet 50 mg PO DAILY 30 Days Qty: 30 2RF Primary Care Provider: Divya Hinojosa Referrals: Divya Hinojosa MD [Primary Care Provider] - As Needed Print Language: Frisian Disposition Disposition: Home, Self Care
[2024-10-30 00:19] VITALS: BP 203/55; PULSE 101; RESP 18; TEMP 36.1; O2SAT 98
--- OUTSIDE RECORDS SUMMARY | 2024-10-30 00:24 | XMS RPT_ITS | CCD ---
Author Organization [facility] [place] [facility] Care Team Providers Care Continuing Education Instructor Name Role Phone Kurt Lieberman MD Primary Care Provider Dr. Kurt Lieberman MD Primary Care Provider Dr. Kurt Lieberman MD Attending Provider [phone] Dr. Kurt Lieberman MD Referring Provider Dr. Murphy Ramírez DO Emergency Provider [phone] Ibarra DO, Dr. العلي Admit Provider Unavail able Ibarra DO, Dr. العلي Attending Provider Unav ailable Ibarra DO, Dr. العلي Other Provider Unavail able Jason Walker MD Other Provider Unavailable Dr. Roberto Quiñones MD Other Provider Estela Guzman MD Other Provider Unavailable Dr. Sonali Ny DO Other Provider Dr. Monik Barker MD Other Provider Dr. Ronald Christianson MD Other Provider [phone] Dr. Candis Noel MD Other Provider Dr. Luis Crooks MD Other Provider Dr. Twin Hnana MD Other Provider Chiki PENN, Dr. Rosas Other Provider Sherry Priest MD Other Provider Dr. Scott Fernandez MD Other Provider Arthur PENN, Dr. Hsusein Other Provider [phone] Myrna PENN, Dr. Davila Other Provider Silver PENN, Dr. Magno Peterson Other Provider Ej PENN, Dr. Valencia Other Provider Gertrude PENN, Dr. Trejo Other Provider Neisha PENN, Dr. Wasserman Other Provider Frandy PENN, Dr. Pride Other Provider Unavailable Silva PENN, Armen Other Provider Unavailable Pebbles PENN, Dr. Arizmendi Attending Provider Devyn PENN, Dr. Ortiz Attending Provider Frandy HOLLAND, Dr. Westbrook Attending Provider Pebbles PENN, Dr. Arizmendi Other Provider [phone] Frandy HOLLAND, Dr. Westbrook Other Provider Micaela PENN, Angela Primary Care Provider Dr. Kurt Lieberman MD Primary Care Provider Dr. Severiano Ibarra DO Referring Provider Unav ailable Sonali Bowie Attending Provider [phone] Micaela PENN, Dr. Stokes Primary Care Provider Dr. Angela High MD Referring Provider Dr. Ugo Rogel MD Admit Provider [phone] 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 Kurt Lieberman MD Referring Provider Sonali Bowie Referring Provider [phone] Jony Lambert DO Emergency Provider [phone] Fabián PENN, Dr. Axel Pinon Admit Provider Fabián PENN, Dr. Axel Pinon Attending Provider Fabián PENN, Dr. Axel Pinon Other Provider Dr. Familia Manriquez DO Attending Provider Fabián PENN, Dr. Axel Pinon Attending Provider Declan HOLLAND, Dr. Barbosa Other Provider Eric Haroison Attending Unavailable Severiano Ibarra Referring Unavailable Lieberman, Kurt Primary Care Unavailable Pebbles, Ugo Attending Unavailable Ibarra, Severiano Referring Unavailable Lieberman, Kurt Primary Care Unavailable Familia Manriquez Attending Unavailable Axel Lockwood Consulting Unavailable Axel Lockwood Admitting Unavailable Ganta, Angela Primary Care Unavailable Familia Manriquez Consulting Unavailable Haro, Sonali Referring Unavailable Ganta, Angela Primary Care Unavailable Haro, Sonali Attending Unavailable Angel Shepard Attending Unavailable Lieberman, Kurt Primary Care Unavailable Pebbles, Ugo Consulting Unavailable Pebbles, Ugo Attending Unavailable Chalmers, Ugo Referring Unavailable Pebbles, Ugo Admitting Unavailable Ganta, Angela Primary Care Unavailable Pebbles, Ugo Referring Unavailable Pebbles, Ugo Admitting Unavailable Haro, Sonali Attending Unavailable Ganta, Angela Primary Care Unavailable Chalmers, Ugo Consulting Unavailable Haro, Sonali Attending Unavailable Lieberman, Kurt Referring Unavailable Ganta, Angela Primary Care Unavailable Haro, Sonali Referring Unavailable Haro, Sonali Attending Unavailable Ganta, Angela Primary Care Unavailable Familia Manriquez Attending Unavailable Axel Lockwood Admitting Unavailable Axel Lockwood Consulting Unavailable Ganta, Angela Primary Care Unavailable Axel Lockwood Attending Unavailable Haro, Sonali Attending Unavailable Ganta, Angela Referring Unavailable Ganta, Angela Primary Care Unavailable Lieberman, Kurt Attending Unavailable Lieberman, Kurt Referring Unavailable Lieberman, Kurt Primary Care Unavailable Severiano Ibarra Admitting Unavailable Dariana Wise Attending Unavailable Jason Walker Consulting Unavailable Adeli, Amir Consulting Unavailable Hinduja, Estela Consulting Unavailable Anant, Sonali Consulting Unavailable Zha, Monik Consulting Unavailable Sammy, Ronald Consulting Unavailable Bert, Candis Consulting Unavailable Bittar, Luis Consulting Unavailable Twin Hanna Consulting Unavailable Chiki, Ralph Consulting Unavailable Beemile Sherry Consulting Unavailable Gusler, Scott Consulting Unavailable Arthur, Jovita Consulting Unavailable Ridha, Mohamed Consulting Unavailable Zaghlouleh, Mhd Nicholas Consulting UnavailErik Farias Consulting Unavailable Loredo, Rami Consulting Unavailable Neisha, Lux Consulting Unavailable Frandy, Shannen Consulting Unavailable Hannawi, Yousef Consulting Unavailable Severiano Ibarra Consulting Unavailable Ugo Rogel Consulting Unavailable Ugo Rogel Attending Unavailable Ugo Rogel Referring Unavailable Pebbles Ugo Admitting Unavailable Angela High Primary Care Unavailable Severiano Ibarra Admitting Unavailable Jason Walker Consulting Unavailable Severiano Ibarra [facility] Adeli, Amir Consulting Unavailable Hinduja, Estela Consulting Unavailable Anant, Sonali Consulting Unavailable Zha, Monik Consulting Unavailable Sammy, Ronald Consulting Unavailable Bert, Candis Consulting Unavailable Bitsylvia, Luis Consulting Unavailable Twin Hanna Consulting Unavailable Ana Monetrge Consulting Unavailable BeLaovnne baptistearet Consulting Unavailable Gusler, Scott Consulting Unavailable Arthur, Jovita Consulting Unavailable Ridha, Mohamed Consulting Unavailable Zaghlouleh, Mhd Nicholas Consulting UnavailErik Farias Consulting Unavailable Loredo, Rami Consulting Unavailable Neisha, Lux Consulting Unavailable Frandy, Shannen Consulting Unavailable Hannawi, Yousef Consulting Unavailable Severiano Ibarra Consulting Unavailable Dariana Wise Attending Unavailable Jason Walker Consulting Unavailable Severiano Ibarra Admitting [facility] Unavailable Adeli, Amir Consulting Unavailable Hinduja, Estela Consulting Unavailable Anant, Sonali Consulting Unavailable Zha, Monik Consulting Unavailable Sammy, Ronald Consulting Unavailable Bert, Candis Consulting Unavailable Bittar, Luis Consulting Unavailable Twin Hanna Consulting Unavailable Chiki, Ralph Consulting Unavailable Beemile, Sherry Consulting Unavailable Gusler, Scott Consulting Unavailable Arthur, Jovita Consulting Unavailable Ridha, Mohamed Consulting Unavailable Zaghlouleh, Mhd Nicholsa Consulting UnavailErik Farias Consulting Unavailable Loredo, Rami Consulting Unavailable Neisha, Lux Consulting Unavailable Frandy, Shannen Consulting Unavailable Hannawi, Yousef Consulting Unavailable Severiano Ibarra Consulting Unavailable Ugo Rogel Consulting Unavailable Dariana Wise Consulting Unavailable Allergies Allergy Classification Reported Allergen(s) Allergy Type Date of Onset Reaction(s) Facility (2 sources) hydroCHLOROthiazide Drug Allergy 5 hyponatremia [facility] (1 source) hydroCHLOROthiazide Drug Allergy 5 [facility] Repository Medications Current Medications Medication Drug Class(es) Dates Sig (Normalized) Sig (Original) amLODIPine 5 mg oral tablet (20 sources) Dihydropyridine Calcium Channel Belia Start: 10-11-2024 take 1 tablet by mouth twice daily Amlodipine 5 mg tablet Active 5 mg PO TWICE A DAY October 22, 2024 1:05pm Start: 10-06-2024 End: 10-22-2024 take 1 tablet by mouth once daily Amlodipine 5 mg Tablet Discontinued 5 mg PO DAILY October 06, 2024 12:00am October 22, 2024 1:06pm Start: 09-17-2024 End: 10-06-2024 take 2.5 mg by mouth once daily Amlodipine 10 mg table t Discontinued 2.5 mg PO DAILY September 17, 2024 11:02am October 06, 2024 1:14pm Start: 09-10-2024 End: 10-11-2024 take 1 tablet by mouth once daily amLODIPine (NORVASC) 2.5 mg tablet Take 1 tablet by mouth once daily. 30 tablet 5 09/10/2024 10/11/2024 Discontinued Start: 09-03-2024 End: 09-17-2024 take 1 tablet by mouth once daily Amlodipine 10 mg Tablet Discontinued 10 mg PO DAILY September 03, 2024 12:00am September 17, 2024 11:03am aspirin 81 mg chewable tablet (12 sources) Platelet Aggregation Inhibitor, Nonsteroidal Anti-inflammatory Drug Start: 09-03-2024 take 1 tablet by mouth at breakfast Aspirin 81 mg Tablet,Chewable Active 81 mg PO WITH BREAKFAST September 03, 2024 12:00am atorvastatin 40 mg oral tablet (12 sources) HMG-CoA Reductase Inhibitor Start: 09-03-2024 End: 09-30-2024 take 1 tablet by mouth at bedtime Atorvastatin 40 mg Tablet Active 40 mg PO AT BEDTIME September 03, 2024 12:00am clopidogrel 75 mg oral tablet (12 sources) P2Y12 Platelet Inhibitor Start: 09-03-2024 End: 09-30-2024 take 1 tablet by mouth once daily Clopidogrel 75 mg Tablet Active 75 mg PO DAILY September 03, 2024 12:00am docosahexaenoic acid/epa (FISH OIL ORAL) (2 sources) take 1 tablet by mouth once daily docosahexaenoic acid/epa (FISH OIL ORAL) Take 1 tablet by mouth once daily. Active 3 ml insulin glargine 100 unt/ml pen injector (19 sources) Insulin Analog Start: 09-03-2024 Insulin Glargine (Lantus Solostar U-100 Insulin) 100 unit/mL (3 mL) insulin pen Active 10 U SC AT BEDTIME September 03, 2024 1:52pm Start: 08-31-2024 End: 09-03-2024 inject 8 [IU] by subcutaneous injection at bedtime Insulin Glargine (Insulin Glargine 100 Unit/Ml (3 Ml) Subcutaneous Pen) 100 unit/mL (3 mL) insulin pen Discontinued 8 U SC AT BEDTIME August 31, 2024 12:00am September 03, 2024 1:52pm Start: 05-14-2024 inject 10 [IU] by barnhart bcutaneous injection once daily at bedtime LANTUS SOLOSTAR U-100 INSULIN 100 unit/mL (3 mL) Inject 10 Units subcutaneously daily at bedtime. 05/14/2024 Active losartan potassium 50 mg oral tablet (2 sources) Angiotensin 2 Receptor Belia Start: 10-24-2024 take 1 tablet by mouth once daily Losartan 50 mg Tablet Active 50 mg PO DAILY October 24, 2024 12:00am metFORMIN hydrochloride 500 mg oral tablet (12 sources) Biguanide Start: 09-03-2024 End: 09-30-2024 take 1 tablet by mouth twice daily Metformin 500 mg tablet Active 500 mg PO TWICE A DAY September 03, 2024 12:00am omeprazole 40 mg delayed release oral capsule (11 sources) Proton Pump Inhibitor Start: 10-22-2024 take 1 capsule by mouth once daily omeprazole (PRILOSEC) 40 mg capsule Indications: Gastroesophageal reflux disease without esophagitis Take 1 capsule by mouth once daily. 90 capsule 1 10/22/2024 Active Start: 11-07-2023 End: 10-21-2024 take 1 capsule by mouth once daily Omeprazole 40 mg capsule,delayed release(DR/EC) Active 40 mg PO daily October 22, 2024 12:00am Completed/Discontinued Medications Medication Drug Class(es) Dates Sig (Normalized) Sig (Original) acetaminophen 500 mg oral tablet (5 sources) Start: 10-06-2024 End: 10-22-2024 take 2 tablets by mouth every eight hours Acetaminophen 500 mg Tablet Discontinued 1000 mg PO EVERY 8 HOURS 0 7 October 06, 2024 12:00am October 22, 2024 5:32pm carvedilol 12.5 mg oral tablet (11 sources) alpha-Adrenergic Belia, beta-Adrenergic Belia Start: 09-03-2024 End: 10-11-2024 take 1 tablet by mouth twice daily at mealtime Carvedilol 12.5 mg Tablet Discontinued 12.5 mg PO TWICE DAILY WITH MEALS 60 September 03, 2024 12:00am October 06, 2024 1:15pm glimepiride 2 mg oral tablet (4 sources) Sulfonylurea Start: 10-02-2023 End: 09-10-2024 take 1 tablet by mouth twice daily glimepiride (AMARYL) 2 mg tablet take 1 (one) tablet by mouth two times per day 10/02/2023 09/10/2024 Discontinued (Course of therapy completed) glipiZIDE er 5 mg 24 hr extended release oral tablet (1 source) Sulfonylurea Start: 09-10-2024 End: 09-10-2024 take 1 tablet by mouth once daily glipiZIDE (GLUCOTROL XL) 5 mg 24 hr tablet Take 1 tablet by mouth once daily. 30 tablet 2 09/10/2024 09/10/2024 Discontinued hydroCHLOROthiazide 12.5 mg / losartan potassium 50 mg oral tablet (11 sources) Thiazide Diuretic, Angiotensin 2 Receptor Belia Start: 09-10-2024 End: 10-24-2024 Losartan-Hydrochl orothiazide 50-12.5 mg tablet Discontinued 1 {tbl} PO daily September 17, 2024 12:00am October 24, 2024 2:36pm isosorbide dinitrate 10 mg oral tablet (11 sources) Nitrate Vasodilator Start: 09-30-2024 End: 10-11-2024 take 0.5 tablet by mouth three times daily isosorbide dinitrate (ISORDIL) 10 mg tablet Take 0.5 tablets by mouth three times a day. 135 tablet 3 09/30/2024 10/11/2024 Discontinued Start: 09-03-2024 End: 10-22-2024 Isosorbide Dinitrate 10 mg T ablet Discontinued 5 mg PO THREE TIMES A DAY 90 September 03, 2024 12:00am October 22, 2024 1:06pm 24 hr metoprolol succinate 50 mg extended release oral tablet (11 sources) beta-Adrenergic Belia Start: 08-31-2024 End: 09-03-2024 Metoprolol Succinate 50 mg tablet extended release 24 hr Discontinued 100 mg PO DAILY August 31, 2024 12:00am September 03, 2024 1:57pm Start: 10-01-2023 End: 09-10-2024 take 1 tablet by mouth every hour metoprolol succinate ER (TOPROL XL) 25 mg 24 hr tablet Take 1 tablet by mouth every afternoon. 10/01/2023 09/10/2024 Discontinued (Discontinued by another Health Care Provider) nystatin [id number] unt/ml oral suspension (2 sources) Polyene Antifungal Start: 08-18-2023 End: 11-21-2023 take 5 mL by mouth every four hours nystatin (MYCOSTATIN) 100,000 unit/mL suspension Take 5mL by mouth every 4 hours until symptoms improve. 0 08/18/2023 11/21/2023 Discontinued (Course of therapy completed) pioglitazone 15 mg oral tablet (4 sources) Peroxisome Proliferator Receptor alpha Agonist, Peroxisome Proliferator Receptor gamma Agonist, Thiazolidinedione Start: 09-11-2023 End: 09-10-2024 take 1 tablet by mouth once pioglitazone (ACTOS) 15 mg tablet Take 1 tablet by mouth every afternoon. 09/11/2023 09/10/2024 Discontinued (Course of therapy completed) Problems Active Problems Problem Classification Problem Date Documented Da te Episodic/Chronic Acute cerebrovascular disease (19 sources) Cerebrovascular accident; Translations: [Cerebral infarction, unspecified] Onset: 5 09-01-2024 Chronic Comment on above: 08/2024 Conditions associated with dizziness or vertigo (16 sources) Dizziness; Translations: [Dizziness and giddiness] Onset: 5 08-31-2024 Episodic Diabetes mellitus with complications (1 source) Type 2 diabetes mellitus with other diabetic neurological complication; Translations: [Type 2 diabetes mellitus with other diabetic neurological complication] Onset: Chronic Diabetes mellitus without complication (20 sources) Type 2 diabetes mellitus; Translations: [Type 2 diabetes mellitus without complications] Onset: 5 08-31-2024 Chronic Diseases of mouth; excluding dental (2 sources) Lesion of lip; Translations: [Diseases of lips] 11-21-2023 Episodic Esophageal disorders (1 source) Gastroesophageal reflux disease without esophagitis; Translations: [Gastro-esophageal reflux disease without esophagitis] 10-22-2024 Chronic Essential hypertension (20 sources) Poor hypertension control; Translations: [Essential (primary) hypertension] Onset: 5 08-31-2024 Chronic Fluid and electrolyte disorders (8 sources) Acute hyponatremia; Translations: [Hypo-osmolality and hyponatremia] Onset: 5 10-22-2024 Episodic Hypertension with complications and secondary hypertension (15 sources) Hypertensive emergency; Translations: [Hypertensive emergency] Onset: 5 08-31-2024 Chronic Malaise and fatigue (20 sources) Asthenia; Translations: [Weakness] Onset: 5 08-31-2024 Episodic Occlusion or stenosis of precerebral arteries (20 sources) Right carotid artery stenosis; Translations: [Occlusion and stenosis of right carotid artery] Onset: 5 09-01-2024 Chronic Comment on above: s/p R TCAR 09/2024 Other aftercare (1 source) Post-discharge follow-up; Translations: [Encounter for follow-up examination after completed treatment for conditions other than malignant neoplasm] 09-10-2024 Episodic Other aftercare (1 source) Encounter for follow-up examination after completed treatment for conditions other than malignant neoplasm; Translations: [Hospital discharge follow-up] Onset: Episodic Other aftercare (1 source) 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) use of insulin; Translations: [alf (current) use of insulin] Onset: Episodic Other circulatory disease (8 sources) Disorder of carotid artery; Translations: [Disorder of arteries and arterioles, unspecified] 10-22-2024 Chronic Other circulatory disease (2 sources) Disorder of arteries and arterioles, unspecified; Translations: [Disorder of arteries and arterioles, unspecified] Onset: Chronic Other circulatory disease (3 sources) History of cerebrovascular accident; Translations: [Personal history of transient ischemic attack (TIA), and cerebral infarction without residual deficits] 10-22-2024 Episodic Other gastrointestinal disorders (7 sources) Dysphagia; Translations: [Dysphagia, unspecified] 10-22-2024 Episodic Other gastrointestinal disorders (2 sources) Dysphagia, unspecified; Translations: [Dysphagia, unspecified] Onset: Episodic Other nervous system disorders (1 source) Difficulty walking; Translations: [Difficulty in walking, not elsewhere classified] 10-11-2024 Chronic Other nervous system disorders (14 sources) Slurred speech; Translations: [Slurred speech] 08-31-2024 Episodic Other nervous system disorders (1 source) Tremor; Translations: [Tremor, unspecified] 10-11-2024 Episodic Other nervous system disorders (1 source) Slurred speech; Translations: [Slurred speech] Onset: Episodic Other non-epithelial cancer of skin (1 source) Squamous cell carcinoma of skin of face; Translations: [Squamous cell carcinoma of skin of unspecified parts of face] 11-21-2023 Episodic Other non-traumatic joint disorders (1 source) Pain in right knee; Translations: [Pain in joint, lower leg] 06-01-2024 Episodic Other nutritional; endocrine; and metabolic disorders (14 sources) Body mass index 30+ - obesity; Translations: [Obesity, unspecified] 08-31-2024 Chronic Other nutritional; endocrine; and metabolic disorders (7 sources) Severe obesity; Translations: [Class 2 severe obesity with serious comorbidity and body mass index (BMI) of 35.0 to 35.9 in adult, unspecified obesity type (HCC)] Onset: 5 09-10-2024 Chronic Other nutritional; endocrine; and metabolic disorders (1 source) Obesity, unspecified; Translations: [Obesity, unspecified] Onset: Chronic Other upper respiratory disease (4 sources) Pharyngeal gag reflex finding; Translations: [Other diseases of pharynx] 10-22-2024 Episodic Other upper respiratory disease (2 sources) Other diseases of pharynx; Translations: [Other diseases of pharynx] Onset: 5 Episodic Screening and history of mental health and substance abuse codes (4 sources) Patient encounter status; Translations: [Encounter for screening for depression] Onset: 5 10-11-2024 Episodic Transient cerebral ischemia (9 sources) Transient cerebral ischemia; Translations: [Transient cerebral ischemic attack, unspecified] Onset: 5 08-31-2024 Chronic Unclassified (6 sources) 3 to 6 months Past or Other Problems Problem Classification Problem Date Documented Da te Episodic/Chronic Other non-traumatic joint disorders (1 source) Pain in left knee; Translations: [Pain in left knee] Onset: 06-17-2024 Episodic Results Test Name Value Interpretation Reference Range Facility Basic Metabolic Profile (BMP )on 10-25-2024 BUN Normal 4-19 [facility] Comment on above: Result Comment: Canc elled via OM: Order cancelled - Patient discharged Performed By: #### L 501.080 #### [facility] [address] [place], [address] BUN/CRE Normal 10-20 [facility] Comment on above: Result Comment: Canc elled via OM: Order cancelled - Patient discharged Performed By: #### L 501.080 #### [facility] [address] [place], [address] Calcium Normal 7.6-11.0 [facility] Comment on above: Result Comment: Canc elled via OM: Order cancelled - Patient discharged Performed By: #### L 501.080 #### [facility] [address] [place], [address] CL Normal 98-108 [facility] Comment on above: Result Comment: Canc elled via OM: Order cancelled - Patient discharged Performed By: #### L 501.080 #### [facility] [address] [place], [address] CO2 Normal 21.0-32.0 [facility] Comment on above: Result Comment: Canc elled via OM: Order cancelled - Patient discharged Performed By: #### L 501.080 #### [facility] [address] [place], [address] CREAT,SERUM Normal 0.70-1.20 [facility] Comment on above: Result Comment: Canc elled via OM: Order cancelled - Patient discharged Performed By: #### L 501.080 #### [facility] [address] [place], [address] eGFR Normal >60 [facility] Comment on above: Result Comment: Canc elled via OM: Order cancelled - Patient discharged Performed By: #### L 501.080 #### [facility] [address] [place], [address] GAP Normal 5-15 [facility] Comment on above: Result Comment: Canc elled via OM: Order cancelled - Patient discharged Performed By: #### L 501.080 #### [facility] [address] [place], [address] GLU Normal 70-99 [facility] Comment on above: Result Comment: Canc elled via OM: Order cancelled - Patient discharged Performed By: #### L 501.080 #### [facility] [address] [place], [address] Potassium Normal 3.3-5.1 [facility] Comment on above: Result Comment: Canc elled via OM: Order cancelled - Patient discharged Performed By: #### L 501.080 #### [facility] [address] [place], [address] Basic Metabolic Profile (BMP) Normal 133-145 [facility] Comment on above: Result Comment: Canc elled via OM: Order cancelled - Patient discharged Performed By: #### L 501.080 #### [facility] [address] [place], [address] Anion gap in Serum or Plasma Ordered By: Familia Manriquez on 10-24-2024 Anion gap [Moles/Vol] 13 mmol/L 5- [facility] BUN/creatinine ratioOrdered By: Familia Manriquez on 10-24-2024 Urea nitrogen/Creatinine [Mass ratio] 8.4 mg/mg Low - [facility] Basic Metabolic Profile (BMP )on 10-24-2024 BUN/CRE 8.4 RATIO Low 03-14 [facility] Comment on above: Performed By: #### L 501.080 #### [facility] [address] [place], [address] Calcium [Mass/Vol] 9.2 mg/dL Normal 7.6-11.0 [facility] Comment on above: Performed By: #### L [id number] #### [facility] [address] [place], [address] Chloride [Moles/Vol] 98 mmol/L Normal 98-108 [facility] Comment on above: Performed By: #### L [id number] #### [facility] [address] [place], [address] CO2 [Moles/Vol] 20.9 mmol/L Low 21.0-32.0 [facility] Comment on above: Performed By: #### L [id number] #### [facility] [address] [place], [address] Creatinine [Mass/Vol] 0.90 mg/dL Normal 0.70-1.20 [facility] Comment on above: Performed By: #### L [id number] #### [facility] [address] [place], [address] ECRCL 42.51 ml/min Low 50-250 [facility] Comment on above: Performed By: #### L 501.080 #### [facility] [address] [place], [address] GAP 13 Normal -15 [facility] Comment on above: Performed By: #### L 501.080 #### [facility] [address] [place], [address] GFR/1.73 sq M.predicted among non-blacks MDRD (S/P/Bld) [Vol rate/Area] 63 mL/min/{1.73_m2} Normal >60 [facility] Comment on above: Result Comment: mL/m in/1.73m2 CKD-EPI Creatinine Equation (2020) Performed By: #### L 501.080 #### [facility] [address] [place], [address] Glucose [Mass/Vol] 148 mg/dL High 70-99 [facility] Comment on above: Performed By: #### L 501.080 #### [facility] [address] [place], [address] Potassium [Moles/Vol] 4.0 mmol/L Normal 3.3-5.1 [facility] Comment on above: Performed By: #### L 501.080 #### [facility] [address] [place], [address] Sodium [Moles/Vol] 132 mmol/L Low 133-145 [facility] Comment on above: Performed By: #### L 501.080 #### [facility] [address] [place], [address] Urea nitrogen [Mass/Vol] 8 mg/dL Normal 4-19 [facility] Comment on above: Performed By: #### L 501.080 #### [facility] [address] [place], [address] Bedside Glucoseon 10-24-2024 FINGERSTICK GLU 263 mg/dL High 74-106 [facility] Comment on above: Result Comment: RAKESH LONGO OF PATIENT CARE PER NURSING PROTOCOL Performed By: #### L 400.0001 #### [facility] [address] [place], [address] FINGERSTICK GLU 252 mg/dL High 74-106 [facility] Comment on above: Result Comment: RAKESH GEMENT OF PATIENT CARE PER NURSING PROTOCOL Performed By: #### L 400.0001 #### [facility] [address] [place], [address] FINGERSTICK GLU 156 mg/dL High 74-106 [facility] Comment on above: Result Comment: RAKESH GEMENT OF PATIENT CARE PER NURSING PROTOCOL Performed By: #### L 500.4100, L503.0106 #### [facility] [address] [place], [address] Carbon dioxide, total [Moles /volume] in Central venous bloodOrdered By: Familia Manriquez on 10-24-2024 CO2 [Moles/Vol] 20.9 mmol/L Low 21.0-32.0 [facility] Chloride assayOrdered By: Aries Manriquez on 10-24-2024 Chloride [Moles/Vol] 98 mmol/L 98-108 [facility] Discharge Instructionon 060 Discharge Instruction [facility] Medical Records Department [address] [place] [address] Instructions for Home/Discharge Instructions 10/24/24 1435 MR#: [id number] Acct: [id number] Name: CHELSEA MOODY Rep #: [id number] : 1940 83 From: Familia Manriquez DO PCP: Dr. Angela High MD Status:ADM IN Discharge Instructions Diet Discharge Diet: No restrictions DC O2, CPAP, BIPAP needs Home O2 Discharge instructions: No Dressing / Incision Discharge Activity: No Restrictions Follow Up Care Test Results: Test results from this visit will be discussed in further detail at your follow-up appointment, if applicable. Discharge Plan Admission Admit Date/Time: 10/22/24 19:28 Primary Reason for Your Visit: abnormal labs and fatigue Attending Provider: Familia Manriquez Primary Care Provider: Angela High Consulting Providers: Axel Lockwood Instructions Additional Instructions / Restrictions: Stop taking the losartan-hydrochloroth iazide that had recently been prescribed as the hydrochlorothiazide was very likely the cause of the low sodium level. Please start taking the losartan 50 mg daily as noted below. Follow-up with your primary care doctor as needed. Discharge Orders/Prescriptions Prescriptions: New losartan 50 mg Tablet 50 mg PO DAILY 30 Days Qty: 30 2RF Continued amlodipine 5 mg tablet 5 mg PO BID omeprazole 40 mg capsule,delayed release(DR/EC) 40 mg PO QDAY atorvastatin 40 mg Tablet 40 mg PO QHS Qty: 30 1RF aspirin 81 mg Tablet,Chewable 81 mg PO BREAKFAST Qty: 0 0RF clopidogrel 75 mg Tablet 75 mg PO DAILY Qty: 30 1RF metformin 500 mg tablet 500 mg PO BID Qty: 60 1RF insulin glargine [Lantus Solostar U-100 Insulin] 100 unit/mL (3 mL) insulin pen 10 unit subcut QHS Qty: 15 0RF Discontinued losartan-hydrochloroth iazide 50-12.5 mg tablet 1 tab PO QDAY Referrals / Follow Up: Angela High MD [Primary Care Provider] - Disposition Disposition (needs filled in before D/C Order can be placed): Home, Self Care 10/24/24 1437 Familia Manriquez DO CC: Dr. Angela High MD; Dr. Axel Lockwood MD Signed Normal [facility] Glomerular filtration rate ( GFR) estimation/1.73 sq m using serum, plasma, or whole bOrdered By: Familia Manriquez on 10-24-2024 GFR/1.73 sq M.predicted among non-blacks MDRD (S/P/Bld) [Vol rate/Area] 63 mL/min/{1.73_m2} >60 [facility] Comment on above: mL/min/1.73m2 CKD-EP I Creatinine Equation (2020) [facility] de[facility]dered By: Familia Manriquez on 10-24-2024 Glucose [Mass/Vol] 263 mg/dL High 74-106 [facility] Comment on above: MANAGEMENT OF PATIEN T CARE PER NURSING PROTOCOL Potassium measurement (mass/ volume)Ordered By: Familia Manriquez on 10-24-2024 Potassium (Unsp spec) [Mass/Vol] 4.0 mmol/L 3.3-5.1 [facility] Serum creatinine measurement (mass/volume)Ordered By: Familia Manriquez on 10-24-2024 Creatinine [Mass/Vol] 0.90 mg/dL 0.70-1.20 [facility] Serum glucose measurement (m ass/volume)Ordered By: Familia Manriquez on 10-24-2024 Glucose [Mass/Vol] 148 mg/dL High 70-99 [facility] Serum or plasma calcium alfred urement (mass/volume)Ordered By: Familia Manriquez on 10-24-2024 Calcium [Mass/Vol] 9.2 mg/dL 7.6-11.0 [facility] Serum or plasma urea nitroge n measurement (mass/volume)Ordered By: Familia Manriquez on 10-24-2024 Urea nitrogen [Mass/Vol] 8 mg/dL 4-19 [facility] Sodium levelOrdered By: Zac Manriquez on 10-24-2024 Sodium [Moles/Vol] 132 mmol/L Low 133-145 [facility] Absolute lymphocyte countOrd ered By: Axel Lockwood on 10-23-2024 Lymphocytes Auto (Unsp spec) [#/Vol] 1.51 10*3/uL 0.83-4.51 [facility] Absolute neutrophil countOrd ered By: Axel Lockwood on 10-23-2024 Neutrophils (Bld) [#/Vol] 8.0 10*3/uL High 2.0-7.7 [facility] Automated lymphocyte count a s percentage of total leukocytesOrdered By: Axel Lockwood on 10-23-2024 Lymphocytes/100 WBC Auto (Unsp spec) 13.7 % Low 19-41 [facility] Basic Metabolic Profile (BMP )on 10-23-2024 BUN/CRE 10.2 RATIO Normal 10-20 [facility] Comment on above: Performed By: #### L 500.2500 #### [facility] [address] [place], [place], [address] Calcium [Mass/Vol] 8.9 mg/dL Normal 7.6-11.0 [facility] Comment on above: Performed By: #### L 500.2500 #### [facility] [address] [place], [address] Chloride [Moles/Vol] 95 mmol/L Low 98-108 [facility] Comment on above: Performed By: #### L 500.2500 #### [facility] [address] [place], [address] CO2 [Moles/Vol] 22.0 mmol/L Normal 21.0-32.0 [facility] Comment on above: Performed By: #### L 500.2500 #### [facility] [address] [place], [address] Creatinine [Mass/Vol] 0.92 mg/dL Normal 0.70-1.20 [facility] Comment on above: Performed By: #### L 500.2500 #### [facility] [address] [place], [address] ECRCL 41.59 ml/min Low 50-250 [facility] Comment on above: Performed By: #### L 500.2500 #### [facility] [address] [place], [address] GAP 12 Normal 5-15 [facility] Comment on above: Performed By: #### L 500.2500 #### [facility] [address] [place], [address] GFR/1.73 sq M.predicted among non-blacks MDRD (S/P/Bld) [Vol rate/Area] 61 mL/min/{1.73_m2} Normal >60 [facility] Comment on above: Result Comment: mL/m in/1.73m2 CKD-EPI Creatinine Equation (2020) Performed By: #### L 500.2500 #### [facility] [address] [place], [address] Glucose [Mass/Vol] 240 mg/dL High 70-99 [facility] Comment on above: Performed By: #### L 500.2500 #### [facility] [address] [place], [address] Potassium [Moles/Vol] 4.4 mmol/L Normal 3.3-5.1 [facility] Comment on above: Performed By: #### L 500.2500 #### [facility] [address] [place], [address] Sodium [Moles/Vol] 129 mmol/L Low 133-145 [facility] Comment on above: Performed By: #### L 500.2500 #### [facility] [address] [place], [address] Urea nitrogen [Mass/Vol] 9 mg/dL Normal 4-19 [facility] Comment on above: Performed By: #### L 500.2500 #### [facility] [address] [place], [address] BUN/CRE 11.3 RATIO Normal 10-20 [facility] Comment on above: Performed By: #### L 501.080 #### [facility] [address] [place], [address] Calcium [Mass/Vol] 9.0 mg/dL Normal 7.6-11.0 [facility] Comment on above: Performed By: #### L 501.080 #### [facility] [address] [place], [address] Chloride [Moles/Vol] 94 mmol/L Low 98-108 [facility] Comment on above: Performed By: #### L 501.080 #### [facility] [address] [place], [address] CO2 [Moles/Vol] 21.8 mmol/L Normal 21.0-32.0 [facility] Comment on above: Performed By: #### L 501.080 #### [facility] [address] [place], [address] Creatinine [Mass/Vol] 0.96 mg/dL Normal 0.70-1.20 [facility] Comment on above: Performed By: #### L 501.080 #### [facility] [address] [place], [address] ECRCL 39.85 ml/min Low 50-250 [facility] Comment on above: Performed By: #### L 501.080 #### [facility] [address] [place], [address] GAP 13 Normal 5-15 [facility] Comment on above: Performed By: #### L 501.080 #### [facility] [address] [place], [address] GFR/1.73 sq M.predicted among non-blacks MDRD (S/P/Bld) [Vol rate/Area] 58 mL/min/{1.73_m2} Low >60 [facility] Comment on above: Result Comment: mL/m in/1.73m2 CKD-EPI Creatinine Equation (2020) Performed By: #### L 501.080 #### [facility] [address] [place], [address] Glucose [Mass/Vol] 168 mg/dL High 70-99 [facility] Comment on above: Performed By: #### L 501.080 #### [facility] [address] [place], [address] Potassium [Moles/Vol] 4.0 mmol/L Normal 3.3-5.1 [facility] Comment on above: Performed By: #### L 501.080 #### [facility] [address] [place], [address] Sodium [Moles/Vol] 128 mmol/L Low 133-145 [facility] Comment on above: Performed By: #### L 501.080 #### [facility] [address] [place], [address] Urea nitrogen [Mass/Vol] 11 mg/dL Normal 4-19 [facility] Comment on above: Performed By: #### L 501.080 #### [facility] [address] [place], [address] Basophil percentageOrdered B y: Axel Lockwood on 10-23-2024 Basophils/100 WBC (Bld) 0.5 % 0-1 [facility] Bedside Glucoseon 10-23-2024 FINGERSTICK GLU 195 mg/dL High 74-106 [facility] Comment on above: Result Comment: RAKESH GEMENT OF PATIENT CARE PER NURSING PROTOCOL Performed By: #### L 501.080 #### [facility] [address] [place], [address] FINGERSTICK GLU 206 mg/dL High 74-106 [facility] Comment on above: Result Comment: RAKESH GEMENT OF PATIENT CARE PER NURSING PROTOCOL Performed By: #### L 501.080 #### [facility] [address] [place], [address] FINGERSTICK GLU 242 mg/dL High 74-106 [facility] Comment on above: Result Comment: RAKESH GEMENT OF PATIENT CARE PER NURSING PROTOCOL Performed By: #### L 501.080 #### [facility] [address] [place], [address] FINGERSTICK GLU 170 mg/dL High 74-106 [facility] Comment on above: Result Comment: RAKESH GEMENT OF PATIENT CARE PER NURSING PROTOCOL Performed By: #### L 501.080 #### [facility] [address] [place], [address] CBC W/Diff, Automatedon 05-3 Absolute Lymph 1.51 X10 3/uL Normal 0.83-4.51 [facility] Comment on above: Performed By: #### L 501.080 #### [facility] [address] [place], [address] Absolute Neut 8.0 X10 3/uL High 2.0-7.7 [facility] Comment on above: Performed By: #### L 501.080 #### [facility] [address] [place], [address] Basophils/100 WBC (Bld) 0.5 % Normal 0-1 [facility] Comment on above: Performed By: #### L 501.080 #### [facility] [address] [place], [address] Eosinophils/100 WBC (Bld) 0.5 % Normal 0-5 [facility] Comment on above: Performed By: #### L 501.080 #### [facility] [address] [place], [address] Erythrocyte distribution width (RBC) [Ratio] 12.5 % Normal 11.6-14.6 [facility] Comment on above: Performed By: #### L 501.080 #### [facility] [address] [place], [address] Hematocrit (Bld) [Volume fraction] 31.5 % Low 37-47 [facility] Comment on above: Performed By: #### L 501.080 #### [facility] [address] [place], [address] Hemoglobin (Bld) [Mass/Vol] 10.9 g/dL Low 12.0-15.0 [facility] Comment on above: Performed By: #### L 501.080 #### [facility] [address] [place], [address] IG% 0.800 Normal 0.0-0.9 [facility] Comment on above: Result Comment: IG% - Immature Granulocytes (promyelocytes, myelocytes and metamyelocytes) > 1% indicates that a LEFT SHIFT is Present. Performed By: #### L 501.080 #### [facility] [address] [place], [address] Lymphocytes/100 WBC (Bld) 13.7 % Low 19-41 [facility] Comment on above: Performed By: #### L 501.080 #### [facility] [address] [place], [address] MCH (RBC) [Entitic mass] 30.1 pg Normal 27.0-32.0 [facility] Comment on above: Performed By: #### L 501.080 #### [facility] [address] [place], [address] MCHC (RBC) [Mass/Vol] 34.6 g/dL Normal 32-36 [facility] Comment on above: Performed By: #### L 501.080 #### [facility] [address] [place], [address] MCV (RBC) [Entitic vol] 87.0 fL Normal 81-99 [facility] Comment on above: Performed By: #### L 501.080 #### [facility] [address] [place], [address] Monocytes/100 WBC (Bld) 12.0 % High 0-10 [facility] Comment on above: Performed By: #### L 501.080 #### [facility] [address] [place], [address] Neutrophils/100 WBC (Bld) 72.5 % High 47-70 [facility] Comment on above: Performed By: #### L 501.080 #### [facility] [address] [place], [address] Nucleated RBC (Bld) [#/Vol] 0 10*3/uL Normal 0-5 [facility] Comment on above: Performed By: #### L 501.080 #### [facility] [address] [place], [address] Platelet mean volume (Bld) [Entitic vol] 10.0 fL Normal 6.2-12.0 [facility] Comment on above: Performed By: #### L 501.080 #### [facility] [address] [place], [address] Platelets (Bld) [#/Vol] 376 10*3/uL Normal 150-450 [facility] Comment on above: Performed By: #### L 501.080 #### [facility] [address] [place], [address] RBC (Bld) [#/Vol] 3.62 10*6/uL Low 4.2-5.4 [facility] Comment on above: Performed By: #### L 501.080 #### [facility] [address] [place], [address] RDW SD 40.0 fl Normal 35.1-43.9 [facility] Comment on above: Performed By: #### L 501.080 #### [facility] [address] [place], [address] WBC (Bld) [#/Vol] 11.0 10*3/uL Normal 4.4-11.0 [facility] Comment on above: Performed By: #### L 501.080 #### [facility] [address] [place], [address] Eosinophil percentageOrdered By: Axel Lockwood on 10-23-2024 Eosinophils/100 WBC (Bld) 0.5 % 0-5 [facility] Erythrocyte distribution wid th ratioOrdered By: Axel Lockwood on 10-23-2024 Erythrocyte distribution width (RBC) [Ratio] 12.5 % 11.6-14.6 [facility] Erythrocyte distribution wid th standard deviationOrdered By: Axel Lockwood on 10-23-2024 Erythrocyte distribution width (RBC) [Ratio] 40.0 fl 35.1-43.9 [facility] Hematocrit Auto (Bld) [Volum e fraction]Ordered By: Axel Lockwood on 10-23-2024 Hematocrit (Bld) [Volume fraction] 31.5 % Low 37-47 [facility] Hemoglobin measurementOrdere d By: Axel Lockwood on 10-23-2024 Hemoglobin (Bld) [Mass/Vol] 10.9 g/dL Low 12.0-15.0 [facility] Immature granulocytes/100 WB C Auto (Bld)Ordered By: Axel Lockwood on 10-23-2024 Immature granulocytes/100 WBC (Bld) 0.800 % 0.0-0.9 [facility] Comment on above: IG% - Immature Granu locytes (promyelocytes, myelocytes and metamyelocytes) > 1% indicates that a LEFT SHIFT is Present. MCV (mean corpuscular volume ) determinationOrdered By: Axel Lockwood on 10-23-2024 MCV (RBC) [Entitic vol] 87.0 fL 81-99 [facility] Mean corpuscular hemoglobin (MCH) determinationOrdered By: Axel Lockwood on 10-23-2024 MCH (RBC) [Entitic mass] 30.1 pg 27.0-32.0 [facility] Mean corpuscular hemoglobin concentration (MCHC) determinationOrdered By: Axel Lockwood on 10-23-2024 MCHC (RBC) [Mass/Vol] 34.6 g/dL 32-36 [facility] Mean platelet volume determi nationOrdered By: Axel Lockwood on 10-23-2024 Platelet mean volume (Bld) [Entitic vol] 10.0 fL 6.2-12.0 [facility] Monocyte percentageOrdered B y: Axel Lockwood on 10-23-2024 Monocytes/100 WBC (Bld) 12.0 % High 0-10 [facility] Neutrophil percentageOrdered By: Axel Lockwood on 10-23-2024 Neutrophils/100 WBC (Bld) 72.5 % High 47-70 [facility] Nucleated red blood cell per centageOrdered By: Axel Lockwood on 10-23-2024 Nucleated RBC/100 WBC (Bld) [Ratio] 0 % 0-5 [facility] Platelet countOrdered By: Aurea yakov Fabián on 10-23-2024 Platelets (Bld) [#/Vol] 376 10*3/uL 150-450 [facility] RBC Auto (Bld) [#/Vol]Ordere d By: Axel Lockwood on 10-23-2024 RBC (Bld) [#/Vol] 3.62 10*6/uL Low 4.2-5.4 [facility] White blood cell (WBC) count Ordered By: Axel Lockwood on 10-23-2024 WBC (Bld) [#/Vol] 11.0 10*3/uL 4.4-11.0 [facility] 12 Lead EKGon 10-22-2024 12 Lead EKG [facility] [address] [place] [address] 12 Lead EKG 10/22/24 1753 MR#: [id number] Acct: [id number] Name: CHELSEA MOODY Rep #: [id number] : 1940 83 From: Osman Wright MD Attending Dr: Dr. Familia Manriquez, Status : DIS IN Ordering Dr: Jony Lambert DO Date: 10/22/24 Location: [facility] Sex: F C Admitted: 10/22/24 Test Reason : ABN LABS Blood Pressure : */* mmHG Vent. Rate : 85 BPM Atrial Rate : 85 BPM P-R Int : 180 ms QRS Dur : 80 ms QT Int : 358 ms P-R-T Axes : 3 43 48 degrees QTcB Int : 426 ms Normal sinus rhythm Normal ECG Confirmed by Osman Wright ([id number]), assistant editor LAURY PERSAUD ([id number]) on 10/25/2024 10:50:00 AM Referred By: Confirmed By: Osman Wright 10/25/24 1050 Date Omsan Wright MD CC: Dr. Familia Manriquez DO; Dr. Angela High MD; Dr. Jony Lambert DO Signed Normal [facility] Absolute lymphocyte countOrd ered By: Jony Lambert on 10-22-2024 Lymphocytes Auto (Unsp spec) [#/Vol] 1.59 10*3/uL 0.83-4.51 [facility] Absolute lymphocyte countOrd ered By: Sonali Haro on 10-22-2024 Lymphocytes Auto (Unsp spec) [#/Vol] 1.48 10*3/uL 0.83-4.51 [facility] Absolute neutrophil countOrd ered By: Jony Lambert on 10-22-2024 Neutrophils (Bld) [#/Vol] 11.4 10*3/uL High 2.0-7.7 [facility] Absolute neutrophil countOrd ered By: Sonali Haro on 10-22-2024 Neutrophils (Bld) [#/Vol] 10.9 10*3/uL High 2.0-7.7 [facility] Anion gap in Serum or Plasma Ordered By: Jony Lambert on 10-22-2024 Anion gap [Moles/Vol] 16 mmol/L High 10-07 [facility] Anion gap in Serum or Plasma Ordered By: Sonali Haro on 10-22-2024 Anion gap [Moles/Vol] 15 mmol/L 10-07 [facility] Automated lymphocyte count a s percentage of total leukocytesOrdered By: Jony Lambert on 10-22-2024 Lymphocytes/100 WBC Auto (Unsp spec) 10.8 % Low [facility] Automated lymphocyte count a s percentage of total leukocytesOrdered By: Sonali Haro on 10-22-2024 Lymphocytes/100 WBC Auto (Unsp spec) 10.7 % Low [facility] BUN/creatinine ratioOrdered By: Jony Lambert on 10-22-2024 Urea nitrogen/Creatinine [Mass ratio] 11.5 mg/mg 03-14 [facility] BUN/creatinine ratioOrdered By: Sonali Haro on 10-22-2024 Urea nitrogen/Creatinine [Mass ratio] 11.8 mg/mg 03-14 [facility] Basic Metabolic Profile (BMP )on 10-22-2024 BUN/CRE 11.5 RATIO Normal 10-20 [facility] Comment on above: Performed By: #### L 100.0100, L500.2500 #### [facility] [address] [place], [address] ECRCL 30.51 ml/min Low 50-250 [facility] Comment on above: Performed By: #### L 100.0100, L500.2500 #### [facility] [address] [place], [address] GAP 16 High 5-15 [facility] Comment on above: Performed By: #### L 100.0100, L500.2500 #### [facility] [address] [place], [address] Potassium [Moles/Vol] 4.3 mmol/L Normal 3.3-5.1 [facility] Comment on above: Performed By: #### L 100.0100, L500.2500 #### [facility] [address] [place], [address] Basophil percentageOrdered B y: Jony Lambert on 10-22-2024 Basophils/100 WBC (Bld) 0.4 % 0-1 [facility] Bedside Glucoseon 10-22-2024 FINGERSTICK GLU 199 mg/dL High 74-106 [facility] Comment on above: Result Comment: RAKESH DELMERENT OF PATIENT CARE PER NURSING PROTOCOL Performed By: #### L 501.080 #### [facility] [address] [place], [address] Bilirubin Test strip Ql (U)O rdered By: Jony Lambert on 10-22-2024 Bilirubin Ql (U) Negative Negative [facility] Blood manual differential co mment interpretation (narrative result)Ordered By: Jony Lambert on 10-22-2024 Manual differential comment Uziel (Bld) [Interp] SCANNED [facility] CBC W/Diff, Automatedon 09-25 PLT EST ADEQUATE Normal ADEQ [facility] Comment on above: Performed By: #### L 100.0100, L500.2500 #### [facility] [address] [place], [address] SMEAR COMMENT SCANNED Normal [facility] Comment on above: Performed By: #### L 100.0100, L500.2500 #### [facility] [address] [place], [address] CTA Head AND Neck W/ Contras ton 10-22-2024 CTA Head AND Neck W/ Contrast [facility] [address] [place] [address] CTA Head AND Neck W/ Contrast MR#: [id number] Acct: [id number] Name: CHELSEA MOODY Rep #: [id number] : 1940 F 83 From: Scott Lee MD PCP: Dr. Angela High MD Status: REG CLI Study: CTA Head AND Neck W/ Contrast Date of Exam: Exam# [id number] Ordering Dr: Sonali Haro PROCEDURE: CTA HEAD AND NECK W/ CONTRAST 10/22/2024 REASON FOR EXAM: S/P R TCAR, IMPAIRED GAG REFLEX/INABILITY TO SWALL TECHNIQUE: CTA imaging of the head and neck from the aortic arch to the skull vertex with out contrast and with intravenous contrast. Multiplanar and multisequence images were obtained. CONTRAST: Isovue 370 VOLUME: 100 mL. One or more dose reduction techniques were used (e.g., Automated exposure control, adjustment of the mA and/or kV according to patient size, use of iterative reconstruction technique). RADIATION DOSE SUMMARY: CTDlvol: 44.99+ 12.46+ 20.41 mGy DLP: 1569.28 mGycm COMPARISON: None. FINDINGS: Aortic Arch: Atherosclerosis without significant stenosis. Brachiocephalic and Subclavians: Patent. RIGHT Carotid: Right CCA: Patent stent. Right ICA: Patent stent. Right ECA: LEFT Carotid: Left CCA: Atherosclerosis without hemodynamically significant stenosis. Left ICA: Atherosclerosis without hemodynamically significant stenosis. Left ECA: Vertebrals: Patent. RIGHT Vertebral: Patent. LEFT Vertebral: Patent. Anatomy: [place] anatomy is normal. Aneurysm or avm: None. Anterior cerebral arteries: Unremarkable: Middle cerebral arteries: Unremarkable. Basilar artery: Unremarkable. Posterior cerebral arteries: Unremarkable. Other major branches of the posterior circulation: Unremarkable. Other findings: Neck: Right thyroid 3.5 x 2.7 cm nodule extending into the upper mediastinum. Lungs: Bones: Degenerative changes of the spine. CT/CTA Head AND Neck W/ Contrast IMPRESSION: No acute arterial abnormalities of the head or neck. Patent right CCA/ICA stent. Large right thyroid nodule. Further characterization with ultrasound is recommended. Reading Location: [id number] CC: DAVI Green; Dr. Angela High MD Recycle Worker: Signed Normal [facility] Carbon dioxide, total [Moles /volume] in Central venous bloodOrdered By: Jony Lambert on 10-22-2024 CO2 [Moles/Vol] 20.7 mmol/L Low 21.0-32.0 [facility] Comment on above: Performed By: #### L 100.0100, L500.2500 #### [facility] [address] [place], [address] Carbon dioxide, total [Moles /volume] in Central venous bloodOrdered By: Sonali Haro on 10-22-2024 CO2 [Moles/Vol] 18.7 mmol/L Low 21.0-32.0 [facility] Chloride assayOrdered By: Anne Lambert on 10-22-2024 Chloride [Moles/Vol] 82 mmol/L Low 98-108 [facility] Comment on above: Performed By: #### L 100.0100, L500.2500 #### [facility] [address] [place], [address] Chloride assayOrdered By: Aries Haro on 10-22-2024 Chloride [Moles/Vol] 85 mmol/L Low 98-108 [facility] Emergency Department Summary on 10-22-2024 Emergency Department Summary [facility] Medical Records Department [address] [place] [address] Emergency Department Summary 10/22/24 MR#: [id number] Acct: [id number] Name: CHELSEA MOODY Rep #: [id number] : 1940 83 From: Jony Lambert DO PCP: Dr. Angela High MD Status:ADM IN Location: [place] [address] HPI History of Present Illness Chief Complaint: Abn Labs Detail of Chief Complaint: Low-sodium Informant: patient and family Narrative Narrative: Patient presents the emergency department complaint low sodium. Patient apparently had a visit postop with Dr. Rogel after having carotid endarterectomy. She was complaining of feeling fatigued and had a difficult time swallowing so she had CT of head and neck which was unremarkable apparently but lab work noted she was hyponatremic with a sodium of 119. Patient is on new medications as she had a stroke about a month ago. She is on losartan with hydrochlorothiazide. She is on aspirin and Plavix. She is on atorvastatin as well. She denies recent illness. She has had decreased urine output. Patient is eating less but still drinking fluids [facility] Medical History (Updated 10/22/24 @ 19:[address] Jony Lambert DO) Wears glasses Wears dentures Bruising Insulin dependent diabetes mellitus High cholesterol Stroke/cerebrovascular accident History of echocardiogram History of edema CVA (cerebral vascular accident) Diabetes mellitus, type 2 Obesity (BMI 30-39.9) GERD (gastroesophageal reflux disease) Hypertension Diabetes Home Medications ???Medication ???Instructions ???Recorded ???Last Taken ???Type aspirin 81 mg chewable tablet 81 mg PO BREAKFAST SUPPLEMENT #0 0 09/03/24 10/22/24 Rx tabs atorvastatin 40 mg tablet 40 mg PO QHS CHOLESTEROL #30 tabs 09/03/24 10/21/24 Rx clopidogrel 75 mg tablet 75 mg PO DAILY BLOOD THINNER #30 0 09/03/24 10/22/24 Rx tabs insulin glargine 100 unit/mL (3 10 unit (0.1 mL) subcut QHS 10/21/24 Rx mL) subcutaneous pen (Lantus DIABETES #15 mL Solostar U-100 Insulin) metformin 500 mg tablet 500 mg PO BID DIABETES #60 tabs 10/21/24 Rx Held on 10/06/24. Instructions: Resume on 10/08/24. losartan 50 mg-hydrochlorothiazide 1 tab PO QDAY BP 09/17/24 History 12.5 mg tablet amlodipine 5 mg tablet 5 mg PO BID 10/22/24 10/22/24 Hist ory omeprazole 40 mg capsule,delayed 40 mg PO QDAY 10/22/24 10/22/24 Hi story release Allergy/AdvReac Type Severity Reaction Status Date / Time No Known Allergies Allergy Verified 10/22/24 17:32 Surgical History History of cholecystectomy Social History Smoking Status: Never smoker ROS ROS ED ROS Narrative Fatigue Review of Systems ROS Unobtainable: other Constitutional Constitutional ED: Reports lethargy; Denies chills, fever(s), sweats or weight loss Eyes Eyes: Denies blurry vision, change in vision or diplopia ENT ENT ED: Denies rhinorrhea or sore throat Cardiovascular Cardiovascular: Denies chest pain, orthopnea or racing heartbeat Respiratory/Chest Respiratory/Chest: Denies cough, dyspnea, dyspnea on exertion, orthopnea or sputum Gastrointestinal Gastrointestinal: Denies abdominal pain, diarrhea, nausea or vomiting Genitourinary Genitourinary ED: Denies dysuria, hematuria or urinary frequency Musculoskeletal Musculoskeletal: Denies arthralgias, back pain, myalgias or neck pain Integumentary Denies abscess, Abrasions or rash Neurologic Neurologic: Denies headache(s) or weakness Psychiatric Psychiatric: Denies anxiety, depression or suicidal thoughts Endocrine Endocrinology: Denies polydipsia, polyphagia or polyuria Hematologic/Lymphatic Hematologic/Lymphatic: Denies easy bleeding, easy bruising or lymphadenopathy Allergic/Immunologic Allergic/Immunologic ED: Denies mouth swelling, tongue swelling or urticaria EXAM Physical Exam Const Vital Signs: 10/22/24 17:19 10/22/24 17:30 Temperature 96.5 F L Temperature Source Temporal Pulse Rate 89 Respiratory Rate 18 Respiratory Effort Normal Respiratory Pattern Normal Blood Pressure 134/54 H Blood Pressure Mean 80 Pulse Ox 97 Oxygen Delivery Method Room Air Positive well nourished and well developed General Appearance ED: well developed and NAD HEENT Reports TM's clear and moist mucous membranes normocephalic and atraumatic; Negative for trauma or tenderness Tympanic Membrane ED: Yes TM's clear Eyes PERRL and EOMs intact bilaterally General Eye ED: Negative for pale conjunctiva or scleral icterus Neck no lymphadenopathy, supple and no JVD General: Negative for tenderness Chest Wall inspection of chest normal and palpation of chest normal Ch (more content not included)... Normal [facility] Eosinophil percentageOrdered By: Jony Lambert on 10-22-2024 Eosinophils/100 WBC (Bld) 0.1 % 0-5 [facility] Eosinophil percentageOrdered By: Sonali Haro on 10-22-2024 Eosinophils/100 WBC (Bld) 0.2 % 0-5 [facility] Erythrocyte distribution wid th ratioOrdered By: Jony Lambert on 10-22-2024 Erythrocyte distribution width (RBC) [Ratio] 12.6 % 11.6-14.6 [facility] Erythrocyte distribution wid th standard deviationOrdered By: Jony Lambert on 10-22-2024 Erythrocyte distribution width (RBC) [Ratio] 40.0 fl 35.1-43.9 [facility] Glomerular filtration rate ( GFR) estimation/1.73 sq m using serum, plasma, or whole bOrdered By: Jony Lambert on 10-22-2024 GFR/1.73 sq M.predicted among non-blacks MDRD (S/P/Bld) [Vol rate/Area] 42 mL/min/{1.73_m2} Low >60 [facility] Comment on above: mL/min/1.73m2 CKD-EP I Creatinine Equation (2020) Result Comment: mL/m in/1.73m2 CKD-EPI Creatinine Equation (2020) Performed By: #### L 100.0100, L500.2500 #### [facility] [address] [place] [address], [address] Glomerular filtration rate ( GFR) estimation/1.73 sq m using serum, plasma, or whole bOrdered By: Sonali Haro on 10-22-2024 GFR/1.73 sq M.predicted among non-blacks MDRD (S/P/Bld) [Vol rate/Area] 45 mL/min/{1.73_m2} Low >60 [facility] Comment on above: mL/min/1.73m2 CKD-EP I Creatinine Equation (2020) H AND P Exam - [facility] 10-22-2024 H&P Exam - Hospitalist [facility] Medical Records Department [address] [place] [address] H P Exam - Hospitalist 10/22/242010 MR#: [id number] Acct: [id number] Name: CHELSEA MOODY Rep #: [id number] : 1940 83 From: Axel Lockwood MD PCP: Dr. Angela High MD Status:ADM IN [facility] - [facility] General Date of Admission: 10/22/24 HPI Narrative CHELSEA MOODY, is a 83 F who presents to the hospital from the vascular surgeons office for abnormal labs. Sodium today was 119 here in the ER which is what it was earlier this afternoon. She denies any vomiting or diarrhea but has had some nausea as well as fatigue and weakness. Family has noticed maybe slight confusion but nothing significant. No seizure-like activity. Within the last 2 weeks she started a combination losartan-hydrochloroth iazide for her blood pressure. In the ER she was having difficulty voiding so she had about 400 cc on bladder scan so Lin was placed. She also has a little bit of a leukocytosis though she is afebrile, and there is no obvious signs of infection urine is clean. Her visit at the vascular surgeons office today with for postop evaluation of her right carotid stent as she had a stroke back in August. [facility] Medical History Wears glasses Wears dentures Bruising Insulin dependent diabetes mellitus High cholesterol Stroke/cerebrovascular accident History of echocardiogram History of edema CVA (cerebral vascular accident) Diabetes mellitus, type 2 Obesity (BMI 30-39.9) GERD (gastroesophageal reflux disease) Hypertension Diabetes Home Medications ???Medication ???Instructions ???Recorded ???Last Taken ???Type aspirin 81 mg chewable tablet 81 mg PO BREAKFAST SUPPLEMENT #0 0 09/03/24 10/22/24 Rx tabs atorvastatin 40 mg tablet 40 mg PO QHS CHOLESTEROL #30 tabs 09/03/24 10/21/24 Rx clopidogrel 75 mg tablet 75 mg PO DAILY BLOOD THINNER #30 0 09/03/24 10/22/24 Rx tabs insulin glargine 100 unit/mL (3 10 unit (0.1 mL) subcut QHS 10/21/24 Rx mL) subcutaneous pen (Lantus DIABETES #15 mL Solostar U-100 Insulin) metformin 500 mg tablet 500 mg PO BID DIABETES #60 tabs 10/21/24 Rx Held on 10/06/24. Instructions: Resume on 10/08/24. losartan 50 mg-hydrochlorothiazide 1 tab PO QDAY BP 09/17/24 History 12.5 mg tablet amlodipine 5 mg tablet 5 mg PO BID 10/22/24 10/22/24 Hist ory omeprazole 40 mg capsule,delayed 40 mg PO QDAY 10/22/24 10/22/24 Hi story release Allergy/AdvReac Type Severity Reaction Status Date / Time No Known Allergies Allergy Verified 10/22/24 17:32 Family History (Updated 10/22/24 @ 20:[address] Axel Lockwood MD) Other Diabetes Surgical History History of cholecystectomy Social History Smoking Status: Never smoker ROS Constitutional Constitutional: Reports fatigue and weakness; Denies chills, fever(s) or malaise Eyes Eyes: Denies blurry vision ENT HEENT: Denies headache(s) or nasal discharge Cardiovascular Cardiovascular: Denies chest pain, dyspnea on exertion or syncope Respiratory/Chest Respiratory/Chest: Denies cough, shortness of breath at rest or shortness of breath with exertion Gastrointestinal Gastrointestinal: Denies constipation, diarrhea, nausea or vomiting Genitourinary Genitourinary: Denies dysuria Neurologic Neurologic: Denies focal weakness, numbness or tremor(s) Psychiatric Psychiatric: Denies anxiety or depression Vital Signs Vital Signs Vital Signs: 10/22/24 17:19 10/22/24 17:30 10/22/24 19:14 Temperature 96.5 F L Temperature Source Temporal Pulse Rate 89 78 Respiratory Rate 18 Respiratory Effort Normal Respiratory Pattern Normal Blood Pressure 134/54 H 153/52 H Blood Pressure Mean 80 85 Pulse Ox 97 96 Oxygen Delivery Method Room Air Room Air 10/22/24 19:15 Temperature 96.5 F L Temperature Source Pulse Rate 80 Respiratory Rate 16 Respiratory Effort Respiratory Pattern Blood Pressure 153/52 H Blood Pressure Mean 85 Pulse Ox 97 Oxygen Delivery Method Weight Weight: 169 lb 15.622 oz Body Mass Index (BMI) 38.1 Physical Exam Narrative General: Alert, Oriented x3, Cooperative, No apparent distress HEENT: Atraumatic, PERRLA, EOMI, Normocephalic Oral: Moist Mucosa Neck: Supple, No JVD Lungs: Diminished, Normal air movement, No rhonchi, No wheeze, No rales Cardiovascular: Regular rate, Regular Rhythm, Normal S1, Normal S2, No murmurs Abdomen: Soft, Non Tender, Non-Distended, No Hepato-splenomegaly Extremities: Trace edema, Capillary Refill Less than 3 Seconds Skin: No rashes, No breakd (more content not included)... Normal [facility] Hematocrit Auto (Bld) [Volum e fraction]Ordered By: Jony Lambert on 10-22-2024 Hematocrit (Bld) [Volume fraction] 32.5 % Low [address] [place] [address] Hematocrit Auto (Bld) [Volum e fraction]Ordered By: Sonali Haro on 10-22-2024 Hematocrit (Bld) [Volume fraction] 33.8 % Low [address] [place] [address] Hemoglobin measurementOrdere d By: Jony Lambert on 10-22-2024 Hemoglobin (Bld) [Mass/Vol] 11.3 g/dL Low 12.0-15.0 [facility] Hemoglobin measurementOrdere d By: Sonali Haro on 10-22-2024 Hemoglobin (Bld) [Mass/Vol] 11.7 g/dL Low 12.0-15.0 [facility] Immature granulocytes/100 WB C Auto (Bld)Ordered By: Jony Lambert on 10-22-2024 Immature granulocytes/100 WBC (Bld) 0.600 % 0.0-0.9 [facility] Comment on above: IG% - Immature Granu locytes (promyelocytes, myelocytes and metamyelocytes) > 1% indicates that a LEFT SHIFT is Present. Ketones Test strip Ql (U)Ord ered By: Jony Lambert on 10-22-2024 Ketones Ql (U) Negative Negative [facility] MCV (mean corpuscular volume ) determinationOrdered By: Jony Lambert on 10-22-2024 MCV (RBC) [Entitic vol] 87.1 fL 81-99 [facility] MCV (mean corpuscular volume ) determinationOrdered By: Sonali Haro on 10-22-2024 MCV (RBC) [Entitic vol] 86.9 fL 81-99 [facility] Mean corpuscular hemoglobin (MCH) determinationOrdered By: Jony Lambert on 10-22-2024 MCH (RBC) [Entitic mass] 30.3 pg 27.0-32.0 [facility] Mean corpuscular hemoglobin (MCH) determinationOrdered By: Sonali Haro on 10-22-2024 MCH (RBC) [Entitic mass] 30.1 pg 27.0-32.0 [facility] Mean corpuscular hemoglobin concentration (MCHC) determinationOrdered By: Jony Lambert on 10-22-2024 MCHC (RBC) [Mass/Vol] 34.8 g/dL -36 [facility] Mean corpuscular hemoglobin concentration (MCHC) determinationOrdered By: Sonali Haro on 10-22-2024 MCHC (RBC) [Mass/Vol] 34.6 g/dL 32-36 [facility] Mean platelet volume determi nationOrdered By: Jony Lambert on 10-22-2024 Platelet mean volume (Bld) [Entitic vol] 10.0 fL 6.2-12.0 [facility] Mean platelet volume determi nationOrdered By: Sonali Haro on 10-22-2024 Platelet mean volume (Bld) [Entitic vol] 9.8 fL 6.2-12.0 [facility] Microscopic analysis of urin e for red blood cells (RBC)Ordered By: Jony Lambert on 10-22-2024 Microscopic analysis of urine for red blood cells (RBC) 0-5 SEEN /hpf 0-5 [facility] Monocyte percentageOrdered B y: Jony Lambert on 10-22-2024 Monocytes/100 WBC (Bld) 10.3 % High 0-10 [facility] Monocyte percentageOrdered B y: Sonali Haro on 10-22-2024 Monocytes/100 WBC (Bld) 9.3 % 0-10 [facility] Mucus LM Ql (Urine sed)Order ed By: Jony Lambert on 10-22-2024 Mucus Ql (Urine sed) 0 SEEN /hpf [facility] Neutrophil percentageOrdered By: Jony Lambert on 10-22-2024 Neutrophils/100 WBC (Bld) 77.8 % High 47-70 [facility] Neutrophil percentageOrdered By: Sonali Haro on 10-22-2024 Neutrophils/100 WBC (Bld) 78.8 % High 47-70 [facility] Nitrite Test strip Ql (U)Ord ered By: Jony Lambert on 10-22-2024 Nitrite Ql (U) Negative Negative [facility] Nucleated red blood cell per centageOrdered By: Jony Lambert on 10-22-2024 Nucleated RBC/100 WBC (Bld) [Ratio] 0 % 0-5 [facility] Platelet countOrdered By: Anne Lambert on 10-22-2024 Platelets (Bld) [#/Vol] 399 10*3/uL 150-450 [facility] Platelet countOrdered By: Aries Haro on 10-22-2024 Platelets (Bld) [#/Vol] 397 10*3/uL 150-450 [facility] Platelet estimateOrdered By: Jony Lambert on 10-22-2024 Platelets LM Ql (Bld) ADEQUATE ADEQ [facility] Potassium measurement (mass/ volume)Ordered By: Jony Lambert on 10-22-2024 Potassium (Unsp spec) [Mass/Vol] 4.3 mmol/L 3.3-5.1 [facility] Protein Test strip Ql (U)Ord ered By: Jony Lambert on 10-22-2024 Protein Ql (U) 15 mg/dl High Negative [facility] RBC Auto (Bld) [#/Vol]Ordere d By: Jony Lambert on 10-22-2024 RBC (Bld) [#/Vol] 3.73 10*6/uL Low 4.2-5.4 [facility] RBC Auto (Bld) [#/Vol]Ordere d By: Sonali Haro on 10-22-2024 RBC (Bld) [#/Vol] 3.89 10*6/uL Low 4.2-5.4 [facility] Serum creatinine measurement (mass/volume)Ordered By: Jony Lambert on 10-22-2024 Creatinine [Mass/Vol] 1.26 mg/dL High 0.70-1.20 [facility] Comment on above: Performed By: #### L 100.0100, L500.2500 #### [facility] [address] [facility] [place], [address] Serum creatinine measurement (mass/volume)Ordered By: Sonali Haro on 10-22-2024 Creatinine [Mass/Vol] 1.19 mg/dL 0.70-1.20 [facility] Serum glucose measurement (m ass/volume)Ordered By: Jony Lambert on 10-22-2024 Glucose [Mass/Vol] 160 mg/dL High 70- [facility] Comment on above: Performed By: #### L 100.0100, L500.2500 #### [facility] [address] [place], [address] Serum glucose measurement (m ass/volume)Ordered By: Sonali Haro on 10-22-2024 Glucose [Mass/Vol] 165 mg/dL High 70-99 [facility] Serum or plasma calcium alfred urement (mass/volume)Ordered By: Jony Lambert on 10-22-2024 Calcium [Mass/Vol] 9.2 mg/dL Normal 7.6-11.0 [facility] Comment on above: Performed By: #### L 100.0100, L500.2500 #### [facility] [address] [facility]. [place], [place], [id number] Serum or plasma calcium alfred urement (mass/volume)Ordered By: Sonali Haro on 10-22-2024 Calcium [Mass/Vol] 9.4 mg/dL 7.6-11.0 [facility] Serum or plasma urea nitroge n measurement (mass/volume)Ordered By: Jony Lambert on 10-22-2024 Urea nitrogen [Mass/Vol] 15 mg/dL Normal 4-19 [facility] Comment on above: Performed By: #### L 100.0100, L500.2500 #### [facility] [address] [place], [address] Serum or plasma urea nitroge n measurement (mass/volume)Ordered By: Sonali Haro on 10-22-2024 Urea nitrogen [Mass/Vol] 14 mg/dL 09-11 [facility] Sodium levelOrdered By: Moon Lambert on 10-22-2024 Sodium [Moles/Vol] 119 mmol/L Invalid Interpretation Code 133-145 [facility] Comment on above: Critical Result(s) C alled at: by: Results read back by same. Critical Result(s) C alled to: MARTHA CARLISLE ([facility] [place] [place]) by Quin Results read back by same. Result Comment: Crit ical Result(s) Called at: by:??Results read back by same. Performed By: #### L 100.0100, L500.2500 #### [facility] [address] [place], [address] Squamous epithelial cells de tection in urine sediment by light microscopyOrdered By: Jony Lambert on 10-22-2024 Epithelial cells.squamous LM Ql (Urine sed) 0 SEEN /hpf 5-10 [facility] Surgery Visit Reporton 10-22 Surgery Visit Report [facility] [address] [place], [place] [address] OFFICE VISIT Date of Service: 10/22/24 MR#: [id number] Acct: [id number] Name: CHELSEA MOODY Ravinder Rep #: [id number] : 1940 Provider: DAVI Green Age/Sex: 83/F Location: [facility] Status: Signed Intake Vital Signs 09/01/24 14:52 10/05/24 05:50 10/05/24 12:00 10/22/24 13:04 Height 4 ft 8 in 4 ft 8 in 0.56 in Weight: 167 lb BP 144/64 H Blood Pressure Location Lt brachial Position Sitting Respiration 16 Pulse 86 Pulse Source Monitor Temp 97.8 F Temp Source Temporal Pulse Oximetry (%) 97 Oxygen Delivery Method room air Intake Visit Reasons: Post TCAR 2-4 WK FU Is patient in pain?: Yes Allergies No Known Allergies Allergy (Verified 10/22/24 13:05) Medications ???Medication ???Instructions ???Recorded ???Confirmed ???Type aspirin 81 mg chewable tablet 81 mg PO BREAKFAST SUPPLEMENT #0 0 09/03/24 10/05/24 Rx tabs atorvastatin 40 mg tablet 40 mg PO QHS CHOLESTEROL #30 tabs 09/03/24 10/05/24 Rx clopidogrel 75 mg tablet 75 mg PO DAILY BLOOD THINNER #30 0 09/03/24 10/05/24 Rx tabs insulin glargine 100 unit/mL (3 10 unit (0.1 mL) subcut QHS 10/05/24 Rx mL) subcutaneous pen (Lantus DIABETES #15 mL Solostar U-100 Insulin) metformin 500 mg tablet 500 mg PO BID DIABETES #60 tabs 10/05/24 Rx Held on 10/06/24. Instructions: Resume on 10/08/24. losartan 50 mg-hydrochlorothiazide 1 tab PO QDAY BP 09/17/24 History 12.5 mg tablet acetaminophen 500 mg tablet 1,000 mg (2 x 500 mg) PO Q8 7 days 10/06/24 Rx #0 tabs amlodipine 5 mg tablet 5 mg PO BID 10/22/24 History omeprazole 40 mg capsule,delayed 40 mg PO QDAY 10/22/24 10/22/24 Hi story release Is last menstrual period known: No Post menopausal: Yes Patient : No Have you fallen in the past year?: Yes Subjective Details: Chelsea Moody is an 83 y/o female who presents to the office today for initial postoperative follow- up s/p R TCAR on 10/05/24. During her inpatient recovery, she progressed as expected with no apparent postoperative complications; at the time of discharge she had no unilateral weakness or sensory deficits, no vision changes/loss, no facial droop, no dysarthria, no hoarseness, no tongue deviation, no unilateral headaches. She was tolerating a normal diet at the time. Her daughter reports her first week after discharge was as expected, she was weaker than usual but seemed consistent with her recent surgery. Then for the last week, she has developed significant difficulty with swallowing to the point that she is really only tolerating liquids, they are having to crush her pills, and she cannot even tolerate having her dentures in because this makes her gag. She has also been generally weak, feels exhausted after just walking around the house, feels like she will just fall over. She denies any sensation of dizziness/lightheadedn ess. They are not describing ataxia. She has not noticed any particular unilateral weakness. She denies any vision changes, facial droop, difficulty speaking. She reports some intermittent, short-lasting headaches at various locations; not just right-sided. She continues to have hypertension, pressures running 150s-180s at home. She denies any new cough, SOB, chest pain, palpitations. Objective Details: A Ox3, no apparent distress RRR Nonlabored respirations, able to speak in complete sentences Examined the oral cavity, edentulous, no significant oropharyngeal erythema, edema, tongue midline without deviation R neck incision site is well-healing, moderate skin glue still intact. No focal edema, erythema, excess warmth R radial arterial line site is well-healed, pulses palpable and equal in strength bilaterally Trace edema of the bilateral lower extremities Coding Level of Care Code Global Post Op Diagnoses Stenosis of right carotid artery I65.21 Carotid artery disease I77.9 Difficulty swallowing R13.10 Weakness R53.1 [facility] Medical History (Updated 10/22/24 @ 14:04 by DAVI Green) Wears glasses Wears dentures Bruising Insulin dependent diabetes mellitus High cholesterol Stroke/cerebrovascular accident History of echocardiogram History of edema CVA (cerebral vascular accident) Diabetes mellitus, type 2 Obesity (BMI 30-39.9) GERD (gastroesophageal reflux disease) Hypertension Diabetes Surgical History History of cholecystectomy Social History Smoking Status: Never smoker Assessment and Plan (No Qualifiers) Assessment and Plan (1) Stenosis of right carotid artery: Status: Acute Comment: (more content not included)... Normal [facility] Urinalysis, Completeon 10-22 RBC 0-5 SEEN Normal 0-5 [facility] Comment on above: Order Comment: CLEAN CATCH Performed By: #### L 400.0001 #### [facility] [address] [place], [address] WBC 0-5 SEEN Normal 0-5 [facility] Comment on above: Order Comment: CLEAN CATCH Performed By: #### L 400.0001 #### [facility] [address] [place], [address] BACTERIA 0 SEEN Normal None Seen [facility] Comment on above: Order Comment: CLEAN CATCH Performed By: #### L 400.0001 #### [facility] [address] [place], [address] EPI,SQUAMOUS 0 SEEN Normal 5-10 [facility] Comment on above: Order Comment: CLEAN CATCH Performed By: #### L 400.0001 #### [facility] [address] [place], [address] Mucus Ql (Urine sed) 0 SEEN Normal [facility] Comment on above: Order Comment: CLEAN CATCH Performed By: #### L 400.0001 #### [facility] [address] [place], [address] Urine clarityOrdered By: Emily Lambert on 10-22-2024 Clarity (U) Clear Clear [facility] Urine color determinationOrd ered By: Jony Lambert on 10-22-2024 Color (U) Straw Yellow [facility] Urine glucose detectionOrder ed By: Jony Lambert on 10-22-2024 Glucose Ql (U) Normal mg/dl Normal [facility] Urine leukocyte esterase det ection by dipstickOrdered By: Jony Lambert on 10-22-2024 Leukocyte esterase Test strip Ql (U) Negative Negative [facility] Urine pHOrdered By: Jony Hagan gur on 10-22-2024 pH (U) 6.0 [pH] 5.0 - 8.0 [facility] Urine sediment bacteria coun t by microscopy (number/high power field)Ordered By: Jony Lambert on 10-22-2024 Bacteria LM.HPF (Urine sed) [#/Area] 0 /[HPF] None Seen [facility] Urine specific gravity measu rementOrdered By: Jony Lambert on 10-22-2024 Specific gravity (U) [Rel density] 1.005 1.002-1.030 [facility] Urine urobilinogen measureme ntOrdered By: Jony Lambert on 10-22-2024 Urobilinogen Ql (U) Normal mg/dl Normal [facility] White blood cell (WBC) count Ordered By: Jony Lambert on 10-22-2024 WBC (Bld) [#/Vol] 14.7 10*3/uL High 4.4-11.0 [facility] White blood cell (WBC) count Ordered By: Sonali Haro on 10-22-2024 WBC (Bld) [#/Vol] 13.9 10*3/uL High 4.4-11.0 [facility] White blood cell countOrdere d By: Jony Lambert on 10-22-2024 White blood cell count 0-5 SEEN /hpf 0-5 [facility] CNOVon 10-11-2024 CNOV Office Visit (INTMWS ) CHELSEA MOODY ([id number]) 1940 F IPA Date Time Provider Department 10/11/24 2:20 PM ANGELA HIGH INTMWS During your visit today, we recorded the following information about you: Pulse Respiration Blood pressure Weight 83/minute 16/minute 156/70 76.4 kg Angela High MD 10/11/2024 3:20 PM Signed We discussed your recent stroke and recovery: - You are experiencing shakiness, weakness in your legs, and difficulty standing for long periods. These symptoms may improve with time and increased physical activity. - You declined physical therapy but plan to work on strengthening your legs at home by going up and down steps. Please continue to move as much as you can to build strength, even when it feels difficult. - Your appetite has decreased, and you feel nauseated after taking your medications. To support your recovery, try to include more protein in your diet, such as eggs, lean meats, or protein shakes, as this will help with healing and strength. We discussed your blood pressure: - Your blood pressure has been fluctuating. We are adjusting your medications to help stabilize it while minimizing side effects. - I have increased your Norvasc (amlodipine) to 5 mg twice daily. - I have stopped your isosorbide dinitrate (Imdur) to see if this improves your symptoms of dizziness and shakiness. - Please continue taking losartan-hydrochloroth iazide as it has been helping with leg swelling. We discussed your diabetes: - Your blood sugar levels are being monitored and are currently not concerning. Continue taking Lantus (10 units daily) and metformin as prescribed. - Keep tracking your blood sugar levels and let us know if they become consistently high or low. We discussed your throat discomfort: - Your throat remains swollen and tender, likely due to the intubation during your recent procedure. This should improve with time. Continue using the Cypro throat spray as needed for relief. We discussed your surgical site: - Your carotid stent site is healing but still has some drainage. Keep the area covered and monitor for signs of infection, such as increased redness, swelling, or warmth. Let us know if you notice any concerning changes. Next steps: - Monitor your symptoms, including blood pressure, blood sugar, and overall strength. Let us know if you experience worsening dizziness, shakiness, or difficulty standing. - Focus on gentle exercises to rebuild strength and include more protein in your diet to support healing. - Follow up with us if your symptoms do not improve or if you have any concerns about your medications or recovery. Angela High MD 10/11/2024 6:42 PM Signed Reason for Visit Follow up PEDRO Tran is a 83-year-old female, with a history of CVA, presenting with post-stroke symptoms and concerns following a recent carotid stent placement. Chelsea recently underwent a carotid stent placement and is experiencing persistent drainage from the surgical site. She reports feeling yucky and notes a significant decline in her overall well-being since her CVA, stating, I don't feel like me. Prior to the CVA, she felt great and was able to perform daily activities without difficulty. Currently, she experiences generalized weakness, particularly in her legs, which limits her ability to stand for extended periods. She also reports new-onset tremors, similar to those experienced by other family members, and a decreased appetite accompanied by nausea after taking her medications. Chelsea is on multiple medications, including amlodipine, isosorbide, losartan-hydrochloroth iazide, metformin, and Lantus. She reports fluctuations in her blood pressure, with readings as low as 134/59 on 10/07. She also notes that her blood glucose levels have been higher than usual, despite being on metformin and Lantus. She was previously on glimepiride, which she reports was more effective in controlling her blood glucose levels. Chelsea denies any issues with urination and reports that her leg swelling has improved since starting losartan-hydrochloroth iazide. She also mentions difficulty swallowing due to a swollen throat, which she attributes to a recent intubation. Social History Tobacco Use Smoking status: Never Smokeless tobacco: Never Vaping Use Vaping status: Never Used Substance Use Topics Alcohol use: Yes Drug use: Never Past medical history, appointments, medications, allergies reviewed. Pertinent Lab/Diagnostic Studies are reviewed and discussed today Current Outpatient Medications: omeprazole (PRILOSEC) 40 mg capsule docosahexaenoic acid/epa (FISH OIL ORAL) atorvastatin (LIPITOR) 40 mg tablet clopidogrel (PLAVIX) 75 mg tablet metFORMIN (GLUCOPHAGE) 500 mg tablet aspirin 81 mg chewable tablet LANTUS SOLOSTAR U-100 INSULIN 100 unit/mL (3 mL) O (more content not included)... Normal [facility] Absolute lymphocyte countOrd ered By: Ugo Rogel on 10-06-2024 Lymphocytes Auto (Unsp spec) [#/Vol] 1.41 10*3/uL 0.83-4.51 [facility] Absolute neutrophil countOrd ered By: Ugo Rogel on 10-06-2024 Neutrophils (Bld) [#/Vol] 11.4 10*3/uL High 2.0-7.7 [facility] Automated lymphocyte count a s percentage of total leukocytesOrdered By: Ugo Rogel on 10-06-2024 Lymphocytes/100 WBC Auto (Unsp spec) 10.0 % Low 19-41 [facility] Basophil percentageOrdered B y: Ugo Rogel on 10-06-2024 Basophils/100 WBC (Bld) 0.2 % 0-1 [facility] Bedside Glucoseon 10-06-2024 FINGERSTICK GLU 208 mg/dL High 74-106 [facility] Comment on above: Result Comment: RAKESH GEMENT OF PATIENT CARE PER NURSING PROTOCOL Performed By: #### L 501.080 #### [facility] [address] [place], [address] FINGERSTICK GLU 301 mg/dL High 74-106 [facility] Comment on above: Result Comment: RAKESH GEMENT OF PATIENT CARE PER NURSING PROTOCOL Performed By: #### L 501.080 #### [facility] [address] [place], [address] FINGERSTICK GLU 373 mg/dL High 74-106 [facility] Comment on above: Result Comment: RAKESH GEMENT OF PATIENT CARE PER NURSING PROTOCOL Performed By: #### L 501.080 #### [facility] [address] [place], [address] CBC W/Diff, Automatedon 09-23 Absolute Lymph 1.41 X10 3/uL Normal 0.83-4.51 [facility] Comment on above: Performed By: #### L [id number] #### [facility] [address] [place], [address] Absolute Neut 11.4 X10 3/uL High 2.0-7.7 [facility] Comment on above: Performed By: #### L [id number] #### [facility] [address] [place], [address] Basophils/100 WBC (Bld) 0.2 % Normal 0-1 [facility] Comment on above: Performed By: #### L 501.080 #### [facility] [address] [place], [address] Eosinophils/100 WBC (Bld) 0.1 % Normal 0-5 [facility] Comment on above: Performed By: #### L 501.080 #### [facility] [address] [place], [address] Erythrocyte distribution width (RBC) [Ratio] 13.4 % Normal 11.6-14.6 [facility] Comment on above: Performed By: #### L 501.080 #### [facility] [address] [place], [address] Hematocrit (Bld) [Volume fraction] 30.5 % Low 37-47 [facility] Comment on above: Performed By: #### L 501.080 #### [facility] [address] [place], [address] Hemoglobin (Bld) [Mass/Vol] 10.6 g/dL Low 12.0-15.0 [facility] Comment on above: Performed By: #### L 501.080 #### [facility] [address] [place], [address] IG% 0.600 Normal 0.0-0.9 [facility] Comment on above: Result Comment: IG% - Immature Granulocytes (promyelocytes, myelocytes and metamyelocytes) > 1% indicates that a LEFT SHIFT is Present. Performed By: #### L 501.080 #### [facility] [address] [place], [address] Lymphocytes/100 WBC (Bld) 10.0 % Low 19-41 [facility] Comment on above: Performed By: #### L 501.080 #### [facility] [address] [place], [address] MCH (RBC) [Entitic mass] 30.7 pg Normal 27.0-32.0 [facility] Comment on above: Performed By: #### L 501.080 #### [facility] [address] [place], [address] MCHC (RBC) [Mass/Vol] 34.8 g/dL Normal 32-36 [facility] Comment on above: Performed By: #### L 501.080 #### [facility] [address] [place], [address] MCV (RBC) [Entitic vol] 88.4 fL Normal 81-99 [facility] Comment on above: Performed By: #### L [id number] #### [facility] [address] [place], [address] Monocytes/100 WBC (Bld) 8.5 % Normal 0-10 [facility] Comment on above: Performed By: #### L 501.080 #### [facility] [address] [place], [address] Neutrophils/100 WBC (Bld) 80.6 % High 47-70 [facility] Comment on above: Performed By: #### L 501.080 #### [facility] [address] [place], [address] Nucleated RBC (Bld) [#/Vol] 0 10*3/uL Normal 0-5 [facility] Comment on above: Performed By: #### L 501.080 #### [facility] [address] [place], [address] Platelet mean volume (Bld) [Entitic vol] 10.9 fL Normal 6.2-12.0 [facility] Comment on above: Performed By: #### L 501.080 #### [facility] [address] [place], [address] Platelets (Bld) [#/Vol] 301 10*3/uL Normal 150-450 [facility] Comment on above: Performed By: #### L 501.080 #### [facility] [address] [place], [address] RBC (Bld) [#/Vol] 3.45 10*6/uL Low 4.2-5.4 [facility] Comment on above: Performed By: #### L 501.080 #### [facility] [address] [place], [address] RDW SD 43.5 fl Normal 35.1-43.9 [facility] Comment on above: Performed By: #### L 501.080 #### [facility] [address] [place], [address] WBC (Bld) [#/Vol] 14.2 10*3/uL High 4.4-11.0 [facility] Comment on above: Performed By: #### L 501.080 #### [facility] [address] [place], [address] Eosinophil percentageOrdered By: Ugo Rogel on 10-06-2024 Eosinophils/100 WBC (Bld) 0.1 % 0-5 [facility] Erythrocyte distribution wid th ratioOrdered By: Ugo Rogel on 10-06-2024 Erythrocyte distribution width (RBC) [Ratio] 13.4 % 11.6-14.6 [facility] Erythrocyte distribution wid th standard deviationOrdered By: Ugo Rogel on 10-06-2024 Erythrocyte distribution width (RBC) [Ratio] 43.5 fl 35.1-43.9 [facility] deOrdered By: Ugo Rogel on 10-06-2024 Glucose [Mass/Vol] 208 mg/dL High 74-106 [facility] Comment on above: MANAGEMENT OF PATIEN T CARE PER NURSING PROTOCOL Hematocrit Auto (Bld) [Volum e fraction]Ordered By: Ugo Rogel on 10-06-2024 Hematocrit (Bld) [Volume fraction] 30.5 % Low 37-47 [facility] Hemoglobin measurementOrdere d By: Ugo Rogel on 10-06-2024 Hemoglobin (Bld) [Mass/Vol] 10.6 g/dL Low 12.0-15.0 [facility] Immature granulocytes/100 WB C Auto (Bld)Ordered By: Ugo Rogel on 10-06-2024 Immature granulocytes/100 WBC (Bld) 0.600 % 0.0-0.9 [facility] Comment on above: IG% - Immature Granu locytes (promyelocytes, myelocytes and metamyelocytes) > 1% indicates that a LEFT SHIFT is Present. MCV (mean corpuscular volume ) determinationOrdered By: Ugo Rogel on 10-06-2024 MCV (RBC) [Entitic vol] 88.4 fL 81-99 [facility] Mean corpuscular hemoglobin (MCH) determinationOrdered By: Ugo Rogel on 10-06-2024 MCH (RBC) [Entitic mass] 30.7 pg 27.0-32.0 [facility] Mean corpuscular hemoglobin concentration (MCHC) determinationOrdered By: Ugo Rogel on 10-06-2024 MCHC (RBC) [Mass/Vol] 34.8 g/dL 32-36 [facility] Mean platelet volume determi nationOrdered By: Ugo Rogel on 10-06-2024 Platelet mean volume (Bld) [Entitic vol] 10.9 fL 6.2-12.0 [facility] Monocyte percentageOrdered B y: Ugo Rogel on 10-06-2024 Monocytes/100 WBC (Bld) 8.5 % 0-10 [facility] Neutrophil percentageOrdered By: Ugo Rogel on 10-06-2024 Neutrophils/100 WBC (Bld) 80.6 % High 47-70 [facility] Nucleated red blood cell per centageOrdered By: Ugo Rogel on 10-06-2024 Nucleated RBC/100 WBC (Bld) [Ratio] 0 % 0-5 [facility] Platelet countOrdered By: Barry Rogel on 10-06-2024 Platelets (Bld) [#/Vol] 301 10*3/uL 150-450 [facility] RBC Auto (Bld) [#/Vol]Ordere d By: Ugo Rogel on 10-06-2024 RBC (Bld) [#/Vol] 3.45 10*6/uL Low 4.2-5.4 [facility] White blood cell (WBC) count Ordered By: Ugo Rogel on 10-06-2024 WBC (Bld) [#/Vol] 14.2 10*3/uL High 4.4-11.0 [facility] ACT Activated Clotting Timeo n 10-05-2024 ACTk CLOT TIME 314 sec High 74-137 [facility] Comment on above: Performed By: #### L 501.080 #### [facility] [address] [place], [address] ACTk CLOT TIME 141 sec High 74-137 [facility] Comment on above: Performed By: #### L 501.080 #### [facility] [address] [place], [address] Bedside Glucoseon 10-05-2024 FINGERSTICK GLU 408 mg/dL High 74-106 [facility] Comment on above: Result Comment: RAKESH GEMENT OF PATIENT CARE PER NURSING PROTOCOL Performed By: #### L 501.080 #### [facility] [address] [place], [address] FINGERSTICK GLU 239 mg/dL High 74-106 [facility] Comment on above: Result Comment: RAKESH GEMENT OF PATIENT CARE PER NURSING PROTOCOL Performed By: #### L 100.0100, L500.2500 #### [facility] [address] [place], [address] MR/POSTOP.ANEon 10-05-2024 MR/POSTOP.[facility] Medical Records Department [address] [place] [address] Anesthesia Postop Eval I 10/05/24 1010 MR#: [id number] Acct: [id number] Name: CHELSEA MOODY Rep #: [id number] : 1940 83 From: Araceli Morejon PCP: Dr. Angela High MD Status:ADM IN Y Race: C Location: ICU ICU05-1 Anesthesia: Postop Eval I Current Vital Signs Temperature: 97.4 F Pulse Rate: 80 Blood Pressure: 155/50 Respiratory Rate: 16 Pulse Ox: 97 Oxygen Delivery Method: Nasal Cannula Oxygen Flow Rate (L/min): 2 Assessment Airway patent: Yes Spontaneous unlabored respirations: Yes Mental status: Awake and Calm nausea: No Vomiting: No Anesthesia Complication: No Fluid Hydration Crystalloid volume administer (ml): 1,500 Total IV fluid infused: 1,500 Progress Note Anesthesia document: Postop Eval 1 completed: Yes 10/05/24 1030 Date Araceli Morejon Cosigner Signature: Date CC: Signed Normal [facility] MR/[id number] 10-05-2024 [facility] Medical Records Department [address] [place] [address] Anesthesia Postop Eval II 10/05/24 1403 MR#: [id number] Acct: [id number] Name: CHELSEA MOODY Rep #: [id number] : 1940 83 From: Abhilash Serrano MD PCP: Dr. Angela High MD Status:ADM IN Y Race: C [facility] Postop Eval I Sum Postop Eval Completion status Anesthesia document: Postop Eval 1 completed: Yes Anesthesia Postop Eval I Summary Anesthesia Postop Eval I Summary: Anesthesia Postop Eval I: Assessment Summary Airway patent Yes 10/05/24 10:30 [email or web address] Spontaneous unlabored Yes 10/05/24 10:30 [email or web address] [email or web address] respirations Mental status Awake,Calm 10/05/24 10:30 [email or web address] [email or web address] nausea No 10/05/24 10:30 [email or web address] [email or web address].[email or web address] Vomiting No 10/05/24 10:30 [email or web address] [email or web address].[email or web address] Anesthesia Postop Eval I: Fluid Summary Crystalloid volume administer 1,500 10/05/24 10:30 NETTING [email or web address].[email or web address] (ml) Colloids volume administered ( ml) Blood Product volume administered (ml) Total IV fluid infused 1,500 10/05/24 10:30 [email or web address] [email or web address].[email or web address] Anesthesia Postop Eval I: Summary Notes Anesthesia Complication No 10/05/24 10:30 [email or web address] Anesthesia Complication Comment: Post-operative progress note Anesthesia: Postop Eval II Evaluation Mental status: Awake and Calm Pain Level: 3 nausea: No Vomiting: No Progress Note Post-operative progress note: Patient transferred to the ICU on 10 mcg/min nitroglycerin. meeting SBP goals Complications Anesthesia Complication: No 10/05/24 1404 Date Abhilash Mossignbarry Signature: Date CC: Signed Normal [facility] Operative Reporton 5 Operative Report [facility] Medical Records Department [address] [place] [id number] Operative Report 10/05/24 0943 MR#: [id number] Acct: [id number] Name: CHELSEA MOODY Rep #: [id number] : 1940 83 From: Ugo Rogel MD PCP: Dr. Angela High MD Status:ADM IN Location: ICU [place] [address] Operative Report (Standard) Operative Information Date of Procedure: 10/05/24 Pre-Operative Diagnosis: right carotid stenosis Post-Operative Diagnosis: same Surgery/Procedure Performed: right carotid stent, trans carotid insect control aide: Yes Sales Hunter: Ingrid Rodríguez Tasks completed by first assistant: Opening, Closing, Opening closing, Hemostasis: Electrocautery and Retracting Type of Anesthesia: General RN Documented Start/Stop Times: Operation Date: 10/05/24 07:15 Case Time Into Pre-Op 10/05/24 05:32 Out of Pre-Op 10/05/24 07:21 Into Recovery 10/05/24 10:05 Out of Recovery 10/05/24 11:46 Procedure Start Time: 08:30 Procedure Stop Time: 09:45 Select all DRAINS/GRAFTS/IMPLANTS that apply: Implanted device Implanted device details: 9-7 x 40 En Route stent Estimated Blood Loss: 19 Specimen collected: No Description of surgery: HPI: Patient is an 83-year-old female with symptomatic right internal carotid artery stenosis who presents now for carotid artery stenting via transcarotid access. Description of procedure: Upon obtaining informed consent and verification correct patient procedure site the patient was taken to the Shipping Clerk where she was placed under general anesthesia. She was then positioned prepped and draped in usual sterile fashion a time was performed. Oblique incision was made over the anterior border the sternocleidomastoid at the clavicle and Bovie used to dissect down through subcutaneous tissue to the level of the platysma. The platysma was divided and self- retaining retractors put in position then further dissection carried down to the sternocleidomastoid. The cleft between the sternal clavicular heads was then identified and dissected with Bovie and self-retaining retractor moved deeper into the wound. Once the carotid sheath was visualized sharp dissection was used to dissect free the anterior border the jugular vein was then retracted laterally exposing the common carotid artery. Sharp dissection was then used to dissect free the proximally and a right angle used to place a vessel loop. A 5-0 Prolene pursestring was then placed at the intended access site and the patient was heparinized and allowed to circulate for 3 minutes with subsequent heparin dosing based on ACT results. Next under ultrasound guidance the right common femoral vein was accessed with a micropuncture needle wire which was then exchanged for micropuncture sheath. Through the micropuncture sheath a J wire was advanced and the micropuncture sheath exchanged for the 8 Guyanese venous return sheath. Next the common carotid artery was accessed in antegrade fashion with a micropuncture needle wire exchanged for micropuncture sheath. Through the micropuncture sheath hand-injection subtraction angiography of the carotid was performed revealing satisfactory position with no extravasation or dissection. This also confirmed the location of the carotid bifurcation which was then marked to guide wire and catheter advancement. Through the micropuncture sheath a J-wire was advanced the micropuncture sheath exchanged for the silk Road flow reversal sheath which was advanced without resistance. The flow reversal tubing was then attached first to the arterial sheath and then to the venous sheath with adequate flow reversal confirmed. The proximal common carotid artery was then occluded with Vesseloops and multiple oblique view subtraction angiography was performed confirming lesion position as well as adequate sheath tip position. Through the arterial sheath a silk Road angioplasty balloon 4.5 x 35 was advanced centered on the lesion and inflated at nominal for 20 seconds then deflated withdrawn. Next an en route tapered 9 to 7 x 40 stent was advanced centered on the lesion and deployed. 2 minutes of flow reversal was then performed after which completion angiography was performed revealing satisfactory stent position with no extravasation or dissection, no residual stenosis, and no plaque prolapse. The vessel loop was then released and additional minute of flow reversal performed after which the flow reversal tubing was detached and blood return via the venous sheath. The femoral vein sheath then withdrawn and manual pressure held for 10 minutes until hemostasis was obtained. The carotid sheath also was withdrawn and the pursestring suture secured with satisfactory stasis noted. Heparin was then reversed with protamine and the incision inspected for hemostasis. Keena topical hemostatic was applied and a 19 Guyanese channel CHITO placed via separate stab incis (more content not included)... Normal [facility] Anion gap in Serum or Plasma Ordered By: Ugo Rogel on 10-01-2024 Anion gap [Moles/Vol] 14 mmol/L - [facility] BUN/creatinine ratioOrdered By: Ugo Rogel on 10-01-2024 Urea nitrogen/Creatinine [Mass ratio] 14.6 mg/mg - [facility] Basic Metabolic Profile (BMP )on 10-01-2024 BUN/CRE 14.6 RATIO Normal - [facility] Comment on above: Performed By: #### L 100.0100, L500.2500 #### [facility] [address] [place], [address] Calcium [Mass/Vol] 9.2 mg/dL Normal 7.6-11.0 [facility] Comment on above: Performed By: #### L 100.0100, L500.2500 #### [facility] [address] [place], [address] Chloride [Moles/Vol] 98 mmol/L Normal 98-108 [facility] Comment on above: Performed By: #### L 100.0100, L500.2500 #### [facility] [address] [place], [address] CO2 [Moles/Vol] 21.7 mmol/L Normal 21.0-32.0 [facility] Comment on above: Performed By: #### L 100.0100, L500.2500 #### [facility] [address] [place], [address] Creatinine [Mass/Vol] 1.22 mg/dL High 0.70-1.20 [facility] Comment on above: Performed By: #### L 100.0100, L500.2500 #### [facility] [address] [place], [address] GAP 14 Normal 5-15 [facility] Comment on above: Performed By: #### L 100.0100, L500.2500 #### [facility] [address] [place], [address] GFR/1.73 sq M.predicted among non-blacks MDRD (S/P/Bld) [Vol rate/Area] 44 mL/min/{1.73_m2} Low >60 [facility] Comment on above: Result Comment: mL/m in/1.73m2 CKD-EPI Creatinine Equation (2020) Performed By: #### L 100.0100, L500.2500 #### [facility] [address] [place], [address] Glucose [Mass/Vol] 231 mg/dL High 70-99 [facility] Comment on above: Performed By: #### L 100.0100, L500.2500 #### [facility] [address] [place], [address] Potassium [Moles/Vol] 4.6 mmol/L Normal 3.3-5.1 [facility] Comment on above: Performed By: #### L 100.0100, L500.2500 #### [facility] [address] [place], [address] Sodium [Moles/Vol] 134 mmol/L Normal 133-145 [facility] Comment on above: Performed By: #### L 100.0100, L500.2500 #### [facility] [address] [place], [address] Urea nitrogen [Mass/Vol] 18 mg/dL Normal 4-19 [facility] Comment on above: Performed By: #### L 100.0100, L500.2500 #### [facility] [address] [place], [address] CBC-Complete Blood Cnt No Di ffon 10-01-2024 Erythrocyte distribution width (RBC) [Ratio] 13.3 % Normal 11.6-14.6 [facility] Comment on above: Performed By: #### L 100.0100, L500.2500 #### [facility] [address] [place], [address] Hematocrit (Bld) [Volume fraction] 36.3 % Low 37-47 [facility] Comment on above: Performed By: #### L 100.0100, L500.2500 #### [facility] [address] [place], [address] Hemoglobin (Bld) [Mass/Vol] 12.1 g/dL Normal 12.0-15.0 [facility] Comment on above: Performed By: #### L 100.0100, L500.2500 #### [facility] [address] [place], [address] MCH (RBC) [Entitic mass] 30.3 pg Normal 27.0-32.0 [facility] Comment on above: Performed By: #### L 100.0100, L500.2500 #### [facility] [address] [place], [address] MCHC (RBC) [Mass/Vol] 33.3 g/dL Normal 32-36 [facility] Comment on above: Performed By: #### L 100.0100, L500.2500 #### [facility] [address] [place], [address] MCV (RBC) [Entitic vol] 90.8 fL Normal 81-99 [facility] Comment on above: Performed By: #### L 100.0100, L500.2500 #### [facility] [address] [place], [address] Platelet mean volume (Bld) [Entitic vol] 10.6 fL Normal 6.2-12.0 [facility] Comment on above: Performed By: #### L 100.0100, L500.2500 #### [facility] [address] [place], [address] Platelets (Bld) [#/Vol] 321 10*3/uL Normal 150-450 [facility] Comment on above: Performed By: #### L 100.0100, L500.2500 #### [facility] [address] [place], [address] RBC (Bld) [#/Vol] 4.00 10*6/uL Low 4.2-5.4 [facility] Comment on above: Performed By: #### L 100.0100, L500.2500 #### [facility] [address] [place], [address] RDW SD 44.4 fl High 35.1-43.9 [facility] Comment on above: Performed By: #### L 100.0100, L500.2500 #### [facility] [address] [place], [address] WBC (Bld) [#/Vol] 8.9 10*3/uL Normal 4.4-11.0 [facility] Comment on above: Performed By: #### L 100.0100, L500.2500 #### [facility] [address] [place], [place], [address] Carbon dioxide, total [Moles /volume] in Central venous bloodOrdered By: Ugo Rogel on 10-01-2024 CO2 [Moles/Vol] 21.7 mmol/L 21.0-32.0 [facility] Chloride assayOrdered By: Barry Rogel on 10-01-2024 Chloride [Moles/Vol] 98 mmol/L 98-108 [facility] Glomerular filtration rate ( GFR) estimation/1.73 sq m using serum, plasma, or whole bOrdered By: Ugo Rogel on 10-01-2024 GFR/1.73 sq M.predicted among non-blacks MDRD (S/P/Bld) [Vol rate/Area] 44 mL/min/{1.73_m2} Low >60 [facility] Comment on above: mL/min/1.73m2 CKD-EP I Creatinine Equation (2020) Hemoglobin A1con 10-01-2024 HbA1c (Bld) [Mass fraction] 7.7 % High <=5.6 [facility] Comment on above: Result Comment: Norm al < 5.7 % Prediabetic 5.7 - 6.4 % Diabetic >or= 6.5 % Please note range changes. Performed By: #### L 100.0100, L500.2500 #### [facility] [address] [place], [address] Hemoglobin A1c percentageOrd ered By: Jared Arguello on 10-01-2024 HbA1c (Bld) [Mass fraction] 7.7 % High <5.7 [facility] Comment on above: Normal < 5.7 % Predi abetic 5.7 - 6.4 % Diabetic >or= 6.5 % Please note range changes. Potassium measurement (mass/ volume)Ordered By: Ugo Rogel on 10-01-2024 Potassium (Unsp spec) [Mass/Vol] 4.6 mmol/L 3.3-5.1 [facility] Serum creatinine measurement (mass/volume)Ordered By: Ugo Rogel on 10-01-2024 Creatinine [Mass/Vol] 1.22 mg/dL High 0.70-1.20 [facility] Serum glucose measurement (m ass/volume)Ordered By: Ugo Rogel on 10-01-2024 Glucose [Mass/Vol] 231 mg/dL High 70-99 [facility] Serum or plasma calcium alfred urement (mass/volume)Ordered By: Ugo Rogel on 10-01-2024 Calcium [Mass/Vol] 9.2 mg/dL 7.6-11.0 [facility] Serum or plasma urea nitroge n measurement (mass/volume)Ordered By: Ugo Rogel on 10-01-2024 Urea nitrogen [Mass/Vol] 18 mg/dL 4-19 [facility] Sodium levelOrdered By: Ugotracee Rogel on 10-01-2024 Sodium [Moles/Vol] 134 mmol/L 133-145 [facility] MR/PAT.GENEVIEVEon 09-23-2024 MR/PAT.GENEVIEVE [facility] Medical Records Department [address] [place] [address] PAT - Anesthesia 09/23/24 1415 MR#: [id number] Acct: [id number] Name: CHELSEA MOODY Rep #: [id number] : 1940 83 From: Jared Arguello MD PCP: Dr. Angela High MD Status:PRE IN Y Race: C Location: [facility] Pre-Assessment Diagnosis/Proposed Procedure Planned Operative Procedure(s): RIGHT CAROTID STENT Anesthesia History Anesthesia History - hand glass cutter: Anesthesia History - hand glass cutter Hx Hospitalization Yes: AT [facility]- STROKE 09/23/24 11:46 Any Problems With Anesthesia No 09/23/24 11:46 Cholinesterase deficiency No 09/23/24 11:46 You/Your Family Experience No 09/23/24 11:46 fever (hyperthermia) with Relationship Recent Exposure to Contagious Disease Does patient have nerve No 09/23/24 11:46 stimulator Patient instructed to have device shut off --Does patient have Pacemaker or ICD? When Was Last Pacemaker Check QUESTION #4 FULL TEXT: You/Your Family Experience fever (hyperthermia) with Anesthesia Last Oral Intake Last Oral intake: Last Oral Intake NPO since Meds taken in AM with sips of water? Meds patient instructed to take am of surgery PONV PONV - hand glass cutter: PONV - hand glass cutter Female Yes 09/23/24 11:46 HX of Motion Sickness No 09/23/24 11:46 HX of N/V After Surgery No 09/23/24 11:46 Non-Smoker Yes 09/23/24 11:46 Duration of Surgery greater No 09/23/24 11:46 than 60 minutes Number of Risk Factors 2 09/23/24 11:46 PONV Score Moderate Risk 09/23/24 11:46 Height Weight Height Weight: Anesthesia: Height Weight Height 4 ft 8 in 09/01/24 14:52 Respiratory Assessment Respiratory Assessment - hand glass cutter: Respiratory Tract Infection Hx - hand glass cutter Hx Respiratory Tract Infection No 09/23/24 11:46 STOP Sleep Apnea STOP Sleep Apnea - hand glass cutter: STOP Sleep Apnea - hand glass cutter Hx Hypertension Yes 09/23/24 11:46 Hx Sleep Apnea No 09/23/24 11:46 CPAP BIPAP Do you snore loudly (louder No 09/23/24 11:46 than talking or can be heard Do you often feel tired/ No 09/23/24 11:46 fatigued/ sleepy during daytime? Has anyone observed you stop No 09/23/24 11:46 breathing during sleep? STOP Results Negative 09/23/24 11:46 QUESTION #5 FULL TEXT : Do you snore loudly (louder than talking or can be heard through closed doors)? 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 Specify any problems Hx of Preganancy in last 3 No 09/23/24 11:46 Months Nurse Filling Out Transfusion [facility] 09/23/24 11:46 Questions: Date: 09/23/24 09/23/24 11:46 Time: 11:53 09/23/24 11:46 Patient unable to answer at this time (ie. confused, unrespo /Reproduction History /Reproductive History - hand glass cutter: /Reproductive Hx- hand glass cutter Hx Now No 09/23/24 11:46 Gestational Age (in weeks): EDC: Hx Hx Para Hx Section SAB No 09/23/24 11:46 [facility] Medical History (Updated 09/23/24 @ 11:53 by Tamiko Levin) Wears glasses Wears dentures Bruising Insulin dependent diabetes mellitus High cholesterol Stroke/cerebrovascular accident History of echocardiogram History of edema CVA (cerebral vascular accident) Diabetes mellitus, type 2 Obesity (BMI 30-39.9) GERD (gastroesophageal reflux disease) Hypertension Diabetes Home Medications ???Medication ???Instructions ???Recorded ???Last Taken ???Type aspirin 81 mg chewable tablet 81 mg PO BREAKFAST SUPPLEMENT #0 0 09/03/24 Unknown Rx tabs atorvastatin 40 mg tablet 40 mg PO QHS CHOLESTEROL #30 tabs 09/03/24 Unknown Rx carvedilol 12.5 mg tablet 12.5 mg PO BIDCM BP #60 tabs 09/03 Unknown Rx clopidogrel 75 mg tablet 75 mg PO DAILY BLOOD THINNER #30 0 09/03/24 Unknown Rx tabs insulin glargine 100 unit/mL (3 10 unit (0.1 mL) subcut QHS Unknown Rx mL) subcutaneous pen (Lantus DIABETES #15 mL Solostar U-100 I (more content not included)... Normal [facility] MR/BMS.Paulina 09-17-2024 [facility] [address] [facility] [facility] [address] [place] [address] OFFICE VISIT Date of Service: 09/17/24 MR#: [id number] Acct: [id number] Name: JAALEXANDROCHELSEA A Rep #: [id number] : 1940 Provider: DAVI Green Age/Sex: 83/F Location: [facility] Status: Signed Intake Vital Signs 09/01/24 14:52 09/17/24 11:18 Height 4 ft 8 in Weight: 173 lb 8 oz BP 140/70 H Blood Pressure Location Lt brachial Position Sitting Respiration 17 Pulse 76 Pulse Source Monitor Temp 97.8 F Temp Source Temporal Pulse Oximetry (%) 97 Oxygen Delivery Method room air Intake Visit Reasons: [facility] hospital F/U Chief Complaint: F/U Complaint Coordinator Required: No Is patient in pain?: No Allergies No Known Allergies Allergy (Verified 08/31/24 19:32) Medications ???Medication ???Instructions ???Recorded ???Confirmed ???Type aspirin 81 mg chewable tablet 81 mg PO BREAKFAST #0 tabs 5 09/17/24 Rx atorvastatin 40 mg tablet 40 mg PO QHS #30 tabs 09/03/24 Rx carvedilol 12.5 mg tablet 12.5 mg PO BIDCM #60 tabs 09/03/24 09/17/24 Rx clopidogrel 75 mg tablet 75 mg PO DAILY #30 tabs 09/03/24 0 09/17/24 Rx insulin glargine 100 unit/mL (3 10 unit (0.1 mL) subcut QHS #15 mL 09/03/24 09/17/24 Rx mL) subcutaneous pen (Lantus Solostar U-100 Insulin) isosorbide dinitrate 10 mg tablet 5 mg (1/2 x 10 mg) PO TID #90 tab s 09/03/24 Rx metformin 500 mg tablet 500 mg PO BID #60 tabs 09/03/24 Rx amlodipine 10 mg tablet 2.5 mg PO DAILY 09/17/24 History losartan 50 mg-hydrochlorothiazide 1 tab PO QDAY 09/17/24 09/17/24 History 12.5 mg tablet Is last menstrual period known: No Post menopausal: Yes Patient : No Have you fallen in the past year?: Yes [facility] Medical History CVA (cerebral vascular accident) Diabetes mellitus, type 2 Obesity (BMI 30-39.9) GERD (gastroesophageal reflux disease) Hypertension Diabetes Social History Smoking Status: Never smoker HPI HPI HPI: CHELSEA MOODY, is a 83 F who presents to the office today for hospital follow-up from CVA. On 08/31/24, she presented to the [facility] ER with binocular vision darkening and presyncope; she was found to be very hypertensive with systolics into the 260s. She underwent workup for stroke including Brain MRI which was positive for R frontal punctate infarct, Head/Neck CTA which showed significant R ICA stenosis 75% by NASCET, and carotid duplex confirming >70% R ICA stenosis. We were consulted in the hospital and plan was for outpatient carotid intervention with goal of improved blood pressure control prior to surgery. Prior to hospitalization, she had been only on metoprolol at home; at discharge she was on amlodipine, carvedilol, and isosorbide mononitrate with pressures 140-180. She reports that her blood pressure has been 170s-180s at home. She was just to her PCP today who made some further BP medication adjustments with addition of losartan-HCTZ. Otherwise, she has not had any recurrent stroke symptoms. She reports no other significant medical changes in the interval since her hospitalization. ROS General General: Yes fatigue and weakness; No weight change, appetite, colon cancer or breast cancer HEENT HEENT: No difficulty swallowing, eye injury, eye surgery, swollen glands or hoarseness Endo Endocrine: Yes diabetes mellitus; No thyroid disease, thyroid cancer, Hair loss, heat intolerance or cold intolerance Skin Skin: No rash or changing moles Musc Musculoskeletal: No back problems, arthritis, rheumatoid arthritis, gout or joint pain Cardio Cardiovascular: Yes high blood pressure and shortness of breath with exertion; No murmur, pacemaker, heart disease, atrial fibrillation, heart attack, heart stent, palpitations or chest pain Psych Psychiatric: No depression, anxiety or hearing voices Resp Respiratory: No shortness of breath, No sleep apnea, No cough, No COPD, No asthma, No emphysema and No wheezing Gastro Gastrointestinal: No abdominal pain, No nausea or vomiting, Yes diarrhea, No constipation, No blood in stool, No acid reflux, No hemorrhoids, No ulcers, No gallbladder problem and No black,tarry stools Donald Hematologic: Yes blood thinners, No blood disorders, No bleeding, No anemia and No blood clots Additional Details: plavixs Neuro Neurologic: No system reviewed and no additional complaints, except as documented, No as per HPI, No abnormal gait, Yes abnormal hearing, No abnormal movements, No abnormal speech, No behavioral changes, No burning sensations, No confusion, No convulsions, Yes disequilibrium, No dizziness, No localized weakness, No frequent falls, No headache(s), Yes (more content not included)... Normal [facility] 09-13-2024 CNPN Telephone (INTMWS) CHELSEA MOODY ([id number]) 1940 F Date Time Provider Department 09/13/24 ANGELA HIGH INTMWS During your visit today, we recorded the following information about you: Pippa Nichols RN 09/13/2024 9:26 AM Signed Daughter (Barry) calls to report that prescriptions for amlodipine and losartan-HCTZ were not received at [facility]. Called and spoke to Randa. Both prescriptions are ready for steel pickler. Hope mentioned that patient has two accounts in her name. Call placed to daughter to notify. Message left for Barry. 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 Pippa Nichols RN Allergies As of Date: 09/13/2024 (No Known Allergies) Date Reviewed: 09/10/2024 Reviewed by: Leona Perry MA - Fully Assessed Reason for Visit: Medication Problem [65] Prescriptions as of 09/13/2024 - aspirin 81 mg chewable tablet Take 81 mg by mouth once daily. - isosorbide dinitrate (ISORDIL) 10 mg tablet Take 5 mg by mouth three times a day. - metFORMIN (GLUCOPHAGE) 500 mg tablet Take 500 mg by mouth two times a day with meals. - atorvastatin (LIPITOR) 40 mg tablet Take 40 mg by mouth once daily. - clopidogrel (PLAVIX) 75 mg tablet Take 1 tablet by mouth once daily. - carvedilol (COREG) 12.5 mg tablet Take 12.5 mg by mouth two times a day with meals. - LANTUS SOLOSTAR U-100 INSULIN 100 unit/mL (3 mL) Inject 10 Units subcutaneously daily at bedtime. - ONETOUCH DELICA PLUS LANCET 30 gauge two times a day. TEST BLOOD SUGAR - losartan-hydroCHLOROth iazide (HYZAAR) 50-12.5 mg per tablet Take 1 tablet by mouth once daily. - amLODIPine (NORVASC) 2.5 mg tablet Take 1 tablet by mouth once daily. - ONETOUCH VERIO TEST STRIPS test strip two times a day. TEST BLOOD SUGAR Problem List As Of Date 09/13/2024 Noted Resolved Class 2 severe obesity with serious comorbidity*09/10/2024 Type 2 diabetes mellitus without complication, *09/10/2024 Hypertension [I10] 09/10/2024 Encounter Status:Closed by SIVAKUMAR BARRIOS on 09/13/24 [facility] CNOVmarcel 09-10-2024 CNOV Office Visit (INTMWS ) CHELSEA MOODY ([id number]) 1940 F Date Time Provider Department 09/10/24 11:20 AM ANGELA HIGH INTBetsyWS During your visit today, we recorded the following information about you: Pulse Respiration Blood pressure Weight 98/minute 18/minute 138/69 78.7 kg Leona Perry MA 09/10/2024 12:54 PM Signed [facility] visit: Date of Admission: 09/01/24 Date of Discharge: 09/03/24 Discharge Diagnosis (1) CVA (cerebral vascular accident): Status: Acute Discharge diagnoses: Acute right frontal lobe stroke Hypertensive emergency Carotid artery stenosis right greater than left Hyperlipidemia DM-2 uncontrolled Obesity Hypertension Hospital Course: Mrs. Underwood is an 83-year-old white female who presents emergency department at [facility] on 08/31/2024 with a chief complaint of dizziness and elevated blood pressure. Symptoms were acute and started a few hours prior to presentation and were gradual onset. She also admitted to generalized diffuse weakness. Blood pressure at home was 270/51 so she decided come to emergency department for further evaluation. She stated on presentation her blood pressure has been poorly controlled for weeks with recent increased doses of hermetoprolol but she is not on any other medications besides her metoprolol. She had no focal deficits on presentation. Vital signs emergency department on presentation showed a temperature 97.8, heart rate was 68, respiratory rate was 16, blood pressure was 224/66 and pulse ox was 98% room air. Her CBC was unremarkable. Her chemistry panel was overtly unremarkable. Blood glucose was 155 and patient is a known diabetic. Hemoglobin A1c was 7.8. Liver functions were normal. Troponins were normal x 3. BNP was normal. Total cholesterol 205with an LDL of 123 and HDL 47. B12, TSH, and folate were all within normal limits. CT of the brain on admission was unremarkable for any acute findings but did show chronic microvascular changes. With her blood pressure being markedly elevated and symptoms concerning to admitted with hypertensive emergency from stroke workup was pursued is after blood pressure cuff emergency department she developed some neurological changes. MRI of the brain was done after admission and showed a punctate high right frontal lobe infarct with no mass effect or appreciated hemorrhagic transformation. CTA was not obtained on admission and a carotid duplex was ordered. Carotid duplex showed severe (greater than 70%) stenosis in the right extracranial internal carotid artery and mild less than 50% stenosis in the left extracranial internal carotid arterywith patent and antegrade flow in the vertebrals bilaterally. With the stroke finding on the right side and the carotid abnormalities on the right side vascular surgery was consulted and a CTA of the head neck was performed. Current recommendations include dual antiplatelet therapy with aspirin and Plavix and high intensity dose statin along with outpatient follow-up for possible intervention. This showed atherosclerotic calcification anterior and posterior intracranial circulation most prominent at the right ICA bifurcation with resultant luminal narrowing. Echocardiogram showed an EF of 70% with stageI diastolic dysfunction and mild aortic valve insufficiency. Vascular surgery saw the placement and has upcoming appointment for intervention as an outpatient. She was also seen by neurology who recommended Plavix loading her with 600 mg and continuing aspirin and Plavix at 75 mg daily at the time of discharge as well as statin and blood pressure control. Blood pressure control for the first 24 hours was between 180 and 200. After that point in time we dropped her blood pressure goal from 140-180 and that is where she was at the time of discharge. To obtain that control, we added Coreg 12.5 mg p.o. twice daily, amlodipine 10 mg p.o. daily and Isordil 5 mg 3 times daily. We initiallytried Imdur however it dropped her blood pressure and cause a hypotensive episode which made her feel quite poorly and held discharge. Plan after 72 to 96 hours from the time of event is blood pressure of 120-160. This is to be thegoal until her carotid is intervened upon. Her hemoglobin A1c was 7.8 so I did increase her basal insulin from 8-10 and added metformin 500 mg p.o. twice dailyto get her closer to 7. Statin 40 mg was also added. Prescriptions for her medications were sent to local pharmacy at the time of discharge. We have askedthat she follow-up with neurology in the next 3 to 6 months. She is to follow-up with Dr. Rogel as instructed by his office as they will call and her primarycare physician within the next week. She will most likely need up titration on her blood pressure medication to attain goal. Patient was able to be dischargedhome in stable condition (more content not included)... Normal [facility] Absolute lymphocyte countOrd ered By: Dariana Wise on 09-03-2024 Lymphocytes Auto (Unsp spec) [#/Vol] 2.17 10*3/uL 0.83-4.51 [facility] Absolute neutrophil countOrd ered By: Dariana Wise on 09-03-2024 Neutrophils (Bld) [#/Vol] 6.1 10*3/uL 2.0-7.7 [facility] Anion gap in Serum or Plasma Ordered By: Dariana Wise on 09-03-2024 Anion gap [Moles/Vol] 11 mmol/L 5-15 [facility] Automated lymphocyte count a s percentage of total leukocytesOrdered By: Dariana Wise on 09-03-2024 Lymphocytes/100 WBC Auto (Unsp spec) 22.9 % 19-41 [facility] BUN/creatinine ratioOrdered By: Dariana Wise on 09-03-2024 Urea nitrogen/Creatinine [Mass ratio] 16.4 mg/mg 10-20 [facility] Basophil percentageOrdered B y: Dariana Wise on 09-03-2024 Basophils/100 WBC (Bld) 0.5 % 0-1 [facility] Bedside Glucoseon 09-03-2024 FINGERSTICK GLU 176 mg/dL High 74-106 [facility] Comment on above: Result Comment: RAKESH LONGO OF PATIENT CARE PER NURSING PROTOCOL Performed By: #### L 501.080 #### [facility] [address] [place], [address] Bilirubin, totalOrdered By: Dariana Wise on 09-03-2024 Bilirubin [Mass/Vol] 0.47 mg/dL Normal 0.00-1.30 [facility] Comment on above: Performed By: #### L 501.080 #### [facility] [address] [place], [address] CBC W/Diff, Automatedon 08-24 Absolute Lymph 2.17 X10 3/uL Normal 0.83-4.51 [facility] Comment on above: Performed By: #### L 501.080 #### [facility] [address] [place], [address] Absolute Neut 6.1 X10 3/uL Normal 2.0-7.7 [facility] Comment on above: Performed By: #### L 501.080 #### [facility] [address] [place], [address] Basophils/100 WBC (Bld) 0.5 % Normal 0-1 [facility] Comment on above: Performed By: #### L 501.080 #### [facility] [address] [place], [address] Eosinophils/100 WBC (Bld) 1.9 % Normal 0-5 [facility] Comment on above: Performed By: #### L 501.080 #### [facility] [address] [place], [address] Erythrocyte distribution width (RBC) [Ratio] 14.4 % Normal 11.6-14.6 [facility] Comment on above: Performed By: #### L 501.080 #### [facility] [address] [place], [address] Hematocrit (Bld) [Volume fraction] 34.7 % Low 37-47 [facility] Comment on above: Performed By: #### L 501.080 #### [facility] [address] [place], [address] Hemoglobin (Bld) [Mass/Vol] 11.5 g/dL Low 12.0-15.0 [facility] Comment on above: Performed By: #### L 501.080 #### [facility] [address] [place], [address] IG% 0.400 Normal 0.0-0.9 [facility] Comment on above: Result Comment: IG% - Immature Granulocytes (promyelocytes, myelocytes and metamyelocytes) > 1% indicates that a LEFT SHIFT is Present. Performed By: #### L 501.080 #### [facility] [address] [place], [address] Lymphocytes/100 WBC (Bld) 22.9 % Normal 19-41 [facility] Comment on above: Performed By: #### L 501.080 #### [facility] [address] [place], [address] MCH (RBC) [Entitic mass] 30.4 pg Normal 27.0-32.0 [facility] Comment on above: Performed By: #### L 501.080 #### [facility] [address] [place], [address] MCHC (RBC) [Mass/Vol] 33.1 g/dL Normal 32-36 [facility] Comment on above: Performed By: #### L 501.080 #### [facility] [address] [place], [address] MCV (RBC) [Entitic vol] 91.8 fL Normal 81-99 [facility] Comment on above: Performed By: #### L 501.080 #### [facility] [address] [place], [address] Monocytes/100 WBC (Bld) 9.8 % Normal 0-10 [facility] Comment on above: Performed By: #### L 501.080 #### [facility] [address] [place], [address] Neutrophils/100 WBC (Bld) 64.5 % Normal 47-70 [facility] Comment on above: Performed By: #### L 501.080 #### [facility] [address] [place], [address] Nucleated RBC (Bld) [#/Vol] 0 10*3/uL Normal 0-5 [facility] Comment on above: Performed By: #### L 501.080 #### [facility] [address] [place], [address] Platelet mean volume (Bld) [Entitic vol] 10.9 fL Normal 6.2-12.0 [facility] Comment on above: Performed By: #### L 501.080 #### [facility] [address] [place], [address] Platelets (Bld) [#/Vol] 281 10*3/uL Normal 150-450 [facility] Comment on above: Performed By: #### L 501.080 #### [facility] [address] [place], [address] RBC (Bld) [#/Vol] 3.78 10*6/uL Low 4.2-5.4 [facility] Comment on above: Performed By: #### L 501.080 #### [facility] [address] [place], [address] RDW SD 48.5 fl High 35.1-43.9 [facility] Comment on above: Performed By: #### L 501.080 #### [facility] [address] [place], [address] WBC (Bld) [#/Vol] 9.5 10*3/uL Normal 4.4-11.0 [facility] Comment on above: Performed By: #### L 501.080 #### [facility] [address] [place], [address] Carbon dioxide, total [Moles /volume] in Central venous bloodOrdered By: Dariana Wise on 09-03-2024 CO2 [Moles/Vol] 20.8 mmol/L Low 21.0-32.0 [facility] Comment on above: Performed By: #### L 501.080 #### [facility] [address] [place], [address] Chloride assayOrdered By: Giovany Wise on 09-03-2024 Chloride [Moles/Vol] 106 mmol/L Normal 98-108 [facility] Comment on above: Performed By: #### L 501.080 #### [facility] [address] [place], [address] Comprehensive Metabolic Prof ilon 09-03-2024 ALK PHOS 115 U/L High 35-104 [facility] Comment on above: Performed By: #### L 501.080 #### [facility] [address] [place], [address] BUN/CRE 16.4 RATIO Normal 10-20 [facility] Comment on above: Performed By: #### L 501.080 #### [facility] [address] [place], [address] ECRCL 40.44 ml/min Low 50-250 [facility] Comment on above: Performed By: #### L 501.080 #### [facility] [address] [place], [place], [address] GAP 11 Normal 5-15 [facility] Comment on above: Performed By: #### L 501.080 #### [facility] [address] [place], [place], [id number] T PROT 6.3 g/dL Normal 5.9-8.4 [facility] Comment on above: Performed By: #### L 501.080 #### [facility] [address] [place], [place], [address] Comprehensive Metabolic Prof ilOrdered By: Dariana Wise on 09-03-2024 AST [Catalytic activity/Vol] 16 U/L Normal <=31 [facility] Comment on above: Performed By: #### L 501.080 #### [facility] [address] [place], [place], [address] Eosinophil percentageOrdered By: Dariana Wise on 09-03-2024 Eosinophils/100 WBC (Bld) 1.9 % 0-5 [facility] Erythrocyte distribution wid th (RBC) [Ratio]Ordered By: Dariana Wise on 09-03-2024 Erythrocyte distribution width (RBC) [Entitic vol] 48.5 fL High 35.1-43.9 [facility] Erythrocyte distribution wid th ratioOrdered By: Dariana Wise on 09-03-2024 Erythrocyte distribution width (RBC) [Ratio] 14.4 % 11.6-14.6 [facility] Erythrocyte distribution wid th standard deviationOrdered By: Dariana Wise on 09-03-2024 Erythrocyte distribution width (RBC) [Ratio] 48.5 fl High 35.1-43.9 [facility] Estimation of creatinine samuel aranceOrdered By: Dariana Wise on 09-03-2024 Estimated Creatinine Clearance Calc 40.44 ml/min Low 50-250 [facility] GFR/1.73 sq M.predicted albaro g non-blacks MDRD (S/P/Bld) [Vol rate/Area]Ordered By: Dariana Wise on 09-03-2024 Estimated GFR (MDRD) Non-Af Amer 58 Low >60 [facility] Comment on above: mL/min/1.73m2 CKD-EP I Creatinine Equation (2020) Glomerular filtration rate ( GFR) estimation/1.73 sq m using serum, plasma, or whole bOrdered By: Dariana Wise on 09-03-2024 GFR/1.73 sq M.predicted among non-blacks MDRD (S/P/Bld) [Vol rate/Area] 58 mL/min/{1.73_m2} Low >60 [facility] Comment on above: mL/min/1.73m2 CKD-EP I Creatinine Equation (2020) Result Comment: mL/m in/1.73m2 CKD-EPI Creatinine Equation (2020) Performed By: #### L 501.080 #### [facility] [address] [place], [place], [id number] [facility] deOrdered By: Dariana Wise on 09-03-2024 Bedside Glucose (Misc Panel) 176 mg/dL High 74-106 [facility] Comment on above: MANAGEMENT OF PATIEN T CARE PER NURSING PROTOCOL Glucose [Mass/Vol] 176 mg/dL High 70-99 [facility] Comment on above: MANAGEMENT OF PATIEN T CARE PER NURSING PROTOCOL Performed By: #### L 501.080 #### [facility] [address] [place], [place], [address] Hematocrit Auto (Bld) [Volum e fraction]Ordered By: Dariana Wise on 09-03-2024 Hematocrit (Bld) [Volume fraction] 34.7 % Low 37-47 [facility] Hemoglobin measurementOrdere d By: Dariana Wise on 09-03-2024 Hemoglobin (Bld) [Mass/Vol] 11.5 g/dL Low 12.0-15.0 [facility] Immature granulocytes/100 WB C Auto (Bld)Ordered By: Dariana Wise on 09-03-2024 Immature granulocytes/100 WBC (Bld) 0.400 % 0.0-0.9 [facility] Comment on above: IG% - Immature Granu locytes (promyelocytes, myelocytes and metamyelocytes) > 1% indicates that a LEFT SHIFT is Present. Lymphocytes Auto (Unsp spec) [#/Vol]Ordered By: Dariana Wise on 09-03-2024 Lymphocytes (Bld) [#/Vol] 2.17 10*3/uL 0.83-4.51 [facility] Lymphocytes/100 WBC Auto (Un sp spec)Ordered By: Dariana Wise on 09-03-2024 Lymphocytes/100 WBC (Bld) 22.9 % 19-41 [facility] MCV (mean corpuscular volume ) determinationOrdered By: Dariana Wise on 09-03-2024 MCV (RBC) [Entitic vol] 91.8 fL 81-99 [facility] Mean corpuscular hemoglobin (MCH) determinationOrdered By: Dariana Wise on 09-03-2024 MCH (RBC) [Entitic mass] 30.4 pg 27.0-32.0 [facility] Mean corpuscular hemoglobin concentration (MCHC) determinationOrdered By: Dariana Wise on 09-03-2024 MCHC (RBC) [Mass/Vol] 33.1 g/dL 32-36 [facility] Mean platelet volume determi nationOrdered By: Dariana Wise on 09-03-2024 Platelet mean volume (Bld) [Entitic vol] 10.9 fL 6.2-12.0 [facility] Monocyte percentageOrdered B y: Dariana Wise on 09-03-2024 Monocytes/100 WBC (Bld) 9.8 % 0-10 [facility] Neutrophil percentageOrdered By: Dariana Wise on 09-03-2024 Neutrophils/100 WBC (Bld) 64.5 % 47-70 [facility] Nucleated red blood cell per centageOrdered By: Dariana Wise on 09-03-2024 Nucleated RBC/100 WBC (Bld) [Ratio] 0 % 0-5 [facility] Platelet countOrdered By: Giovany Wise on 09-03-2024 Platelets (Bld) [#/Vol] 281 10*3/uL 150-450 [facility] Potassium measurement (mass/ volume)Ordered By: Dariana Wise on 09-03-2024 Potassium (Unsp spec) [Mass/Vol] 4.3 mmol/L 3.3-5.1 [facility] Potassium [Moles/Vol] 4.3 mmol/L Normal 3.3-5.1 [facility] Comment on above: Performed By: #### L 501.080 #### [facility] [address] [place], [address] RBC Auto (Bld) [#/Vol]Ordere d By: Dariana Wise on 09-03-2024 RBC (Bld) [#/Vol] 3.78 10*6/uL Low 4.2-5.4 [facility] Serum creatinine measurement (mass/volume)Ordered By: Dariana Wise on 09-03-2024 Creatinine [Mass/Vol] 0.97 mg/dL Normal 0.70-1.20 [facility] Comment on above: Performed By: #### L 501.080 #### [facility] [address] [place], [address] Serum globulin measurementOr dered By: Dariana Wise on 09-03-2024 Globulin (S) [Mass/Vol] 2.7 g/dL Normal 2.2-4.2 [facility] Comment on above: Performed By: #### L 501.080 #### [facility] [address] [place], [address] Serum glucose measurement (m ass/volume)Ordered By: Dariana Wise on 09-03-2024 Glucose [Mass/Vol] 176 mg/dL High 70-99 [facility] Serum or plasma alanine jackson otransferase (ALT) measurementOrdered By: Dariana Wise on 09-03-2024 ALT [Catalytic activity/Vol] 21 U/L Normal <=34 [facility] Comment on above: Performed By: #### L 501.080 #### [facility] [address] [facility] [place] [place], [address] Serum or plasma albumin alfred urement (mass/volume)Ordered By: Dariana Wise on 09-03-2024 Albumin [Mass/Vol] 3.6 g/dL Normal 3.4-4.8 [facility] Comment on above: Performed By: #### L 501.080 #### [facility] [address] [place], [address] Serum or plasma albumin/glob ulin mass ratioOrdered By: Dariana Wise on 09-03-2024 Albumin/Globulin [Mass ratio] 1.3 {ratio} Normal 0.9-2.4 [facility] Comment on above: Performed By: #### L 501.080 #### [facility] [address] [place], [address] Serum or plasma alkaline windy sphatase measurementOrdered By: Dariana Wise on 09-03-2024 ALP [Catalytic activity/Vol] 115 U/L High 35-104 [facility] Serum or plasma calcium alfred urement (mass/volume)Ordered By: Dariana Wise on 09-03-2024 Calcium [Mass/Vol] 9.2 mg/dL Normal 7.6-11.0 [facility] Comment on above: Performed By: #### L 501.080 #### [facility] [address] [place], [address] Serum or plasma urea nitroge n measurement (mass/volume)Ordered By: Dariana Wise on 09-03-2024 Urea nitrogen [Mass/Vol] 16 mg/dL Normal 4-19 [facility] Comment on above: Performed By: #### L 501.080 #### [facility] [address] [place], [address] Sodium levelOrdered By: Milady Wise on 09-03-2024 Sodium [Moles/Vol] 138 mmol/L Normal 133-145 [facility] Comment on above: Performed By: #### L 501.080 #### [facility] [address] [place], [address] Total proteinOrdered By: Luh Wise on 09-03-2024 Protein [Mass/Vol] 6.3 g/dL 5.9-8.4 [facility] White blood cell (WBC) count Ordered By: Dariana Wise on 09-03-2024 WBC (Bld) [#/Vol] 9.5 10*3/uL 4.4-11.0 [facility] Bedside Glucoseon 09-02-2024 FINGERSTICK GLU 262 mg/dL High 74-106 [facility] Comment on above: Result Comment: RAKESH LONGO OF PATIENT CARE PER NURSING PROTOCOL Performed By: #### L 100.0100, L500.2500 #### [facility] [address] [facility] [facility] [address] [place], [place], [address] Electrocardiogram reportOrde red By: Agnel Shepard on 09-02-2024 EKG study [facility] [address] [place] [address] 12 Lead EKG 08/31/242102 MR#: [id number] Acct: [id number] Name: CHELSEA MOODY Rep #:[id number] : 1940 83 From: Angel Sehpard MD Attending Dr: Dr. Dariana Wise DO S tatus: ADM IN Ordering Dr: Murphy Ramírez DO Date: 0 08/31/24 Location: [facility] Sex: F C Admitted: 09/01/24 Test Reason : DYSRHYTHMIA Blood Pressure : */* mmHG Vent. Rate : 64 BPM Atrial Rate : 64 BPM P-R Int : 186 ms QRS Dur : 76 ms QT Int : 406 ms P-R-T Axes : -3 37 59 degrees QTcB Int : 418 ms Normal sinus rhythm Normal ECG Confirmed by ANGEL SHEPARD MD ([id number]), assistant editor LAURY PERSAUD ([id number]) on 58:34:45 AM Referred By: Confirmed By: ANGEL SHEPARD MD 09/02/24 0834 Date _ Angel Shepard MD CC: Dr. uKrt Lieberman MD; Dr. Dariana Wise DO; Dr. Murphy Ramírez DO ~ Signed [facility] Work Phone: Alcohol, Blood (Medical)-Ser umon 09-01-2024 SERUM ETOH < 10.1 Normal <=10.0 [facility] Comment on above: Order Comment: *ADD- ON* Result Comment: This test is for medical purposes only. The legal definition of intoxication varies according to local law. Performed By: #### L 100.0100, L500.2500 #### [facility] [address] [place], [address] Bedside Glucoseon 09-01-2024 FINGERSTICK GLU 222 mg/dL High 74-106 [facility] Comment on above: Result Comment: RAKESH GEMENT OF PATIENT CARE PER NURSING PROTOCOL Performed By: #### L 501.080 #### [facility] [address] [place], [address] FINGERSTICK GLU 144 mg/dL High 74-106 [facility] Comment on above: Result Comment: RAKESH GEMENT OF PATIENT CARE PER NURSING PROTOCOL Performed By: #### L 501.080 #### [facility] [address] [place], [address] CTA Head AND Neck W/ Contras ton 09-01-2024 CTA Head AND Neck W/ Contrast [facility] [address] [place] [address] CTA Head AND Neck W/ Contrast MR#: [id number] Acct: [id number] Name: CHELSEA MOODY Rep #: [id number] : 1940 F 83 From: Carlos estevez MD PCP: Dr. Kurt Lieberman MD Status: ADM IN Study: CTA Head AND Neck W/ Contrast Date of Exam: Exam# [id number] Ordering Dr: Sonali Haro PROCEDURE: CTA HEAD AND NECK W/ CONTRAST 09/01/2024 REASON FOR EXAM: CVA, R CAROTID STENOSIS TECHNIQUE: CTA imaging of the head and neck from the aortic arch to the skull vertex with intravenous contrast. Coronal and Sagittal reconstruction series were provided. 3D, 3D post processing, 3D reconstructions, Maximum intensity projection (MIPs) Volume rendering and Shaded surface rendering was provided. CONTRAST: Omnipaque 350 VOLUME: 100 mL Not Provided Gauge IV One or more dose reduction techniques were used (e.g., Automated exposure control, adjustment of the mA and/or kV according to patient size, use of iterative reconstruction technique). # of known CTs in the past 12 months: 0 # of known Cardiac Nuclear Medicine Studies in the past 12 months: 0 COMPARISON: None FINDINGS: Aortic Arch: Three-vessel arch branch anatomy. Atherosclerotic calcification of the aortic arch without hemodynamically significant stenosis. Brachiocephalic and Subclavians: Atherosclerotic calcification of the proximal brachiocephalic arteries, without hemodynamically significant stenosis. RIGHT Carotid: Right CCA: No significant atherosclerotic calcification Right ICA: [id number] atherosclerotic calcified and noncalcified plaque at the bifurcation and proximal cervical ICA (series 2 image 187) Maximum stenosis (NASCET): 65 % Right ECA: Unremarkable. LEFT Carotid: Left CCA: No significant atherosclerotic calcification. Left ICA: Mild calcified and noncalcified plaque at the bifurcation and proximal ICA without hemodynamically significant stenosis. Maximum stenosis (NASCET): 15 % Left ECA: Unremarkable. Vertebrals: Codominant. Arise from the subclavians. Both vertebrals form the basilar. RIGHT Vertebral: Unremarkable. LEFT Vertebral: Unremarkable. Anatomy: [place] of [place] anatomy is normal. Aneurysm or avm: No intracranial aneurysms or large vascular malformations are identified. Anterior cerebral arteries: Unremarkable: Middle cerebral arteries: Atherosclerotic calcification of the bilateral distal ICAs and carotid siphons, without hemodynamically significant stenosis. Mild focal stenosis at the proximal right M1 (series 2, image 327). Mild diffuse caliber left M1. No evidence of acute occlusion. No aneurysm. Basilar artery: Unremarkable. Posterior cerebral arteries: Unremarkable. Other major branches of the posterior circulation: Unremarkable. Major venous structures: Other findings: Neck: 3.5 cm inferior right thyroid lobe soft tissue mass (series 2, image 57). Lungs: Lung apices are clear. Bones: Multilevel degenerative changes of the cervicothoracic spine. CT/CTA Head AND Neck W/ Contrast IMPRESSION: Atherosclerotic calcification anterior and posterior intracranial circulation as described above, most prominent at the right ICA bifurcation with resultant luminal narrowing. No evidence of acute occlusion, dissection or aneurysm Reading Location: [facility] CC: DAVI Green; Dr. Kurt Lieberman MD Recycle Worker: Signed Normal [facility] Calculated very low density lipoprotein (VLDL) cholesterol measurementOrdered By: Severiano Gordillo on 09-01-2024 Calculated very low density lipoprotein (VLDL) cholesterol measurement 35 mg/dL 5-40 [facility] VLDL Cholesterol 35 mg/dL 5-40 [facility] Consultation - Surgicalon Consultation - Surgical [facility] Medical Records Department [address] [place] [address] Consultation - Surgical 09/01/24 1427 MR#: [id number] Acct: [id number] Name: CHELSEA MOODY Rep #: [id number] : 1940 83 From: Sonali TOMLINSON PCP: Dr. Kurt Lieberman MD Status:ADM IN Location: U [place] [address] Assessment Plan Assessment/Plan (1) CVA (cerebral vascular accident): (2) Stenosis of right carotid artery: PLAN: Plan R hemispheric infarct on MRI. Reviewed CTA images, R ICA 75% stenosis by NASCET which correlates to carotid duplex findings. Surgical intervention is recommended; given her stroke would plan to coordinate on an outpatient basis in the next 2-4 weeks. Will need to ensure that her hypertension is better controlled prior to surgical intervention. This was discussed with patient and her family at bedside and all questions/concerns were addressed. Recommend DAPT with ASA 81mg daily and Plavix 75mg daily. Recommend high-intensity statin. Plan for outpatient follow-up in the office next week. HPI Consult Data Date of Consult: 09/02/24 HPI Narrative HPI Narrative: CHELSEA MOODY, is a 83 F who presented to the [facility] ER after an episode of darkening of her vision (both eyes), presyncope, and feeling off; in the ER she was found to have hypertensive emergency with systolic BP as high as 266 mmHg. After receiving a dose of IV hydralazine patient's daughter observed an episode of slurred speech, patient reports this lasted less than an hour. She was admitted for stroke workup and BP management. She had Brain MRI which revealed acute punctate R frontal lobe infarct. She had carotid duplex which revealed R ICA stenosis >70% with max PSV in the proximal ICA 529/160 cm/s. Head and Neck CTA was then ordered. I saw patient resting in bed with multiple family members at bedside. She and they agreed that she is back to her baseline; no persistent slurred speech, no facial droop, moving all extremities, no vision changes, no sensory deficits. She denies any prior history of CVA or TIA. She also denies any history of CAD/CHF/prior PCI, COPD/asthma, CKD, prior vascular surgical interventions. [facility] Medical History GERD (gastroesophageal reflux disease) Hypertension Diabetes Home Medications ???Medication ???Instructions ???Recorded ???Last Taken ???Type insulin glargine 100 unit/mL (3 8 unit subcut QHS 08/31/24 Unknown History mL) subcutaneous pen (Lantus Solostar U-100 Insulin) metoprolol succinate 50 mg 100 mg PO DAILY 08/31/24 Unknown H istory tablet,extended release 24 hr Allergy/AdvReac Type Severity Reaction Status Date / Time No Known Allergies Allergy Verified 08/31/24 19:32 Social History Smoking Status: Never smoker Physical Exam Const alert, oriented x3 and no apparent distress General Appearance: cooperative and comfortable HEENT normocephalic, head/scalp atraumatic and external nose normal Eyes EOMs intact bilaterally General Eye: normal appearance of both eyes Neck General: normal visual inspection and trachea midline Resp normal respiratory effort, no retractions and no use of accessory muscles Effort and Inspection: able to speak in complete sentences; Negative for labored, grunting or stridor Cardio regular rate and regular rhythm Extremity normal to inspection and no clubbing, cyanosis or edema Skin no rashes or lesions noted Trauma: no lacerations or abrasions Neuro oriented x3, CN's II-XII intact bilaterally, moves all extremities, no focal motor deficits and no sensory deficits noted Speech: speech normal Psych mental status grossly normal Appearance: grossly normal Attitude: calm and engaged Activity / Motor Behavior: appropriate eye contact Speech: normal speech Mood Affect: euthymic mood Judgement: judgement good Lab / Micro Data 08/31/24 21:00 08/31/24 21:00 Labs: Laboratory Results - last 24 hr 08/31/24 21:00: WBC 11.0, RBC 4.27, Hgb 13.1, Hct 38.5, MCV 90.2, MCH 30.7, MCHC 34.0, RDW Std Deviation 47.4 H, RDW Coeff of Óscar 14.3, Plt Count 296, MPV 10.7, Immature Gran % (Auto) 0.500, Neut % (Auto) 61.5, Lymph % (Auto) 24.9, [place] % (Auto) 9.1, Eos % (Auto) 3.2, Baso % (Auto) 0.8, Absolute Neuts (auto) 6.8, Absolute Lymphs (auto) 2.74, Nucleated RBC % 0, Sodium 136, Potassium 4.2, Chloride 103, Carbon Dioxide 20.7 L, Anion Gap 12, BUN 19, Creatinine 0.99, Estim Creat Clear Calc 39.57 L, Est GFR (MDRD) Non-Af 57 L, BUN/Creatinine Ratio 18.8, Glucose 155 H, Hemoglobin A1c 7.8, Calcium 9.1, Total Bilirubin 0.26, AST 21, ALT 26, Alkaline Phosphatase 123 H, Troponin T High Sens 12, NT pro BNP II 245, Total Protein 6.6, Albumin 3.8, Globulin 2.7, Albumin/Globulin Ratio 1.4 08/31/24 22:36: (more content not included)... Normal [facility] Duplex ultrasound of carotid artery reportOrdered By: Ugo Rogel on 09-01-2024 Study report [facility] [address] [place] [address] Carotid Duplex Ultrasound 09/01/24 0808 MR#: [id number] Acct: [id number] Name: CHELSEA MOODY Rep #:[id number] : 1940 83 From: Ugo Rousseau Attending Dr: Dr. Dariana Wise, DO S tatus: ADM JAMES Ordering Dr: Severiano Ibarra DO Date: 08/31/24 Location: U Sex: F C Admitted: 08/31/24 Reason For Study Reason For Study: Stenosis Rt. Velocities/BP Lt. Velocities/BP Prox CCA 84.7/7.9 cm/sec. Prox CCA 111.4/12.7 cm/sec. Mid CCA 63.4/13.0 cm/sec. Mid CCA 90.7/18.2 cm/sec. Dist CCA 48.6/11.8 cm/sec. Dist CCA 64.3/13.8 cm/sec. Prox ICA 529.1/160.7 cm/sec. Prox ICA 110.4/13.8 cm/sec. Mid ICA 177.7/12.9 cm/sec. Mid ICA 79.0/23.7 cm/sec. Dist ICA 82.7/27.3 cm/sec. Dist ICA 59.3/13.8 cm/sec. Rt. ICA/CCA = 8.3. Lt. ICA/CCA = 1.2. Prox ECA 188.2/4.1 cm/sec. Prox ECA 241.3/0.0 cm/sec. Rt. Vert. 61.2/11.6 cm/sec. Lt. Vert. 70.0/9.7 cm/sec. Right Extracranial There is heterogeneous, smooth atherosclerotic plaque noted in the right common carotid artery. There is heterogeneous, irregular atherosclerotic plaque noted in the right internal carotid artery. There is heterogeneous, irregular atherosclerotic plaque noted in the right external carotid artery. Antegrade flow is noted in the right vertebral artery. Left Extracranial There is heterogeneous, smooth atherosclerotic plaque noted in the left common carotid artery. There is heterogeneous, irregular atherosclerotic plaque noted in the left internal carotid artery. There is heterogeneous, irregular atherosclerotic plaque noted in the left external carotid artery. Antegrade flowis noted in the left vertebral artery. Procedure Carotid Duplex 04498. This is a Carotid Duplex examination using B-mode, color flow and specral Doppler. Exam performed portable in patient room. Preliminary report given to MARITZA Alvarez Charge Nurse. VL/Carotid Duplex Ultrasound Interpretation Summary Severe (>70%) stenosis right extracranial internal carotid. Mild (<50%) stenosis left extracranial internal carotid. Patent and antegrade vertebrals bilaterally. Ordering Physician: Severiano Ibarra Performed By: Na Isaac RVT 09/01/24 1336 Date _ Ugo Rogel MD CC: Dr. Severiano Ibarra DO; Dr. Kurt Lieberman MD; Dr. Dariana Wise DO ~ Date Dictated: 09/01/24 0808 Date Transcribed: 09/01/24 133 Recycle Worker: Signed [facility] Work Phone: Echocardiogram study reportO rdered By: Angel Shepard on 09-01-2024 Study report [facility] [address] [place] [address] Echo Complete W/ Contrast 09/01/24 1349 MR#: [id number] Acct: [id number] Name: CHELSEA MOODY Rep #:[id number] : 1940 83 From: Angel Rousseau Attending Dr: Dr. Dariana Wise DO S tatus: ADM IN Ordering Dr: Severiano Ibarra DO Date: 08/31/24 Location: [facility] Sex: F C Admitted: 09/01/24 Reason For Study Reason For Study: HTN Procedure This was a 2D Doppler, Color Flow transthoracic echocardiogram. The study was technically difficult. Contrast injection was performed. Exam performed portable in patient room. Left Ventricle Normal LV size. Left ventricular systolic function is normal. The left ventricular ejection fraction is 70 %. Stage 1 diastolic dysfunction. No regional wall motion abnormalities noted. Right Ventricle Normal RV size. Normal systolic function. Atria Normal left atrium. Normal right atrium. Mitral Valve Normal mitral valve. Tricuspid Valve Normal tricuspid valve. Aortic Valve Trisinus/trileaflet aortic valve. Mild (1+) aortic valve insufficiency. Pulmonic Valve Normal pulmonic valve. Great Vessels Normal aortic root. The pulmonary artery is normal size. Inferior vena cava collapse with respiration. Pericardium/Pleural No pericardial effusion. Medication Diluted definity 1ml given slow IV push to enhance endocardial definition. MMode/2D Measurements & Calculations LVIDd: 4.5 cm IVSd: 0.83 cm LAV(MOD-bp): 31.5 ml LVIDs: 2.7 cm LVPWd: 0.87 cm RVDd: 3.4 cm FS: 41.0 % LAV(MOD-bp) Indexed: 18.9 ml/m2 LAV(MOD-sp2): 33.9 ml LAV(MOD-sp4): 29.4 ml SV(MOD-sp4): 49.4 ml SV(sp4-el): 52.2 ml LVAd ap4: 26.5 cm2 LVLd ap4: 7.4 cm SI(MOD-sp4): 29.6 ml/m2 EDV(MOD-sp4): 76.7 ml EDV(sp4-el): 80.1 ml LVAs ap4: 13.2 cm2 LVLs ap4: 5.3 cm ESV(MOD-sp4): 27.3 ml ESV(sp4-el): 27.9 ml EF(MOD-sp4): 64.5 % EF(sp4-el): 65.2 % LA dimension(2D): 3.8 cm LA A4 area: 12.9 cm2 RA A4 area: 12.6 cm2 Time Measurements MV dec time: 0.32 sec Doppler Measurements & Calculations MV E max jamari: 65.7 cm/sec Lat Peak E' Jamari: 8.5 cm/sec Med Peak E' Jamari: 7.9 cm/sec MV A max jamari: 110.1 cm/sec E/E' lat: 7.7 E/E' med: 8.4 MV E/A: 0.60 MV V2 max: 116.5 cm/sec MV P1/2t max jamari: 83.5 cm/sec Ao V2 max: 133.4 cm/sec MV max P.4 mmHg MV P1/2t: 95.5 msec Ao max P.1 mmHg MV V2 mean: 57.3 cm/sec MV dec slope: 256.1 cm/sec2 MV mean P.6 mmHg MV V2 VTI: 29.4 cm MVA(P1/2t): 2.3 cm2 AI max jamari: 403.8 cm/sec LV V1 max: 110.3 cm/sec AI max P.2 mmHg LV V1 max P.9 mmHg AI dec slope: 233.7 cm/sec2 LV V1 mean P.9 mmHg AI P1/2t: 506.0 msec LV V1 mean: 81.6 cm/sec LV V1 VTI: 27.2 cm ECHO/Echo Complete W/ Contrast Interpretation Summary Normal LV size. Left ventricular systolic function is normal. The left ventricular ejection fraction is 70 %. Stage 1 diastolic dysfunction. Mild (1+) aortic valve insufficiency. Contrast injection was performed. Ordering Physician: Severiano Ibarra Performed By: Jer Valenzuela RCS 09/01/24 1736 Date _ Angel Shepard MD CC: Dr. Severiano Ibarra DO; Dr. Kurt Lieberman MD; Dr. Dariana Wise DO ~ Date Dictated: 09/01/24 1349 Date Transcribed: 09/01/241733 Recycle Worker: Signed [facility] Work Phone: Folate [Mass/Vol]Ordered By: Severiano Gordillo on 09-01-2024 Serum Folate 10.10 ng/mL 4.60-34.80 [facility] Folate [Mass/volume] in Seru m or PlasmaOrdered By: Severiano Gordillo on 09-01-2024 Folate [Mass/Vol] 10.10 ng/mL 4.60-34.80 [facility] Folates,Serum (Folic Acid)on 09-01-2024 FOLATES,SERUM 10.10 ng/mL Normal 4.60-34.80 [facility] Comment on above: Order Comment: N Performed By: #### L 100.0100, L500.2500 #### [facility] [address] [place] [place], [address] Hemoglobin A1c percentageOrd ered By: Severiano Gordillo on 09-01-2024 HbA1c (Bld) [Mass fraction] 7.8 % Normal <=5.6 [facility] Comment on above: Performed By: #### L 100.0100, L500.2500 #### [facility] [address] [place], [address] L499.0043on 09-01-2024 Trop T High Sen 13 ng/L Normal <=14 [facility] Comment on above: Performed By: #### L 100.0100, L500.2500 #### [facility] [address] [place], [address] Trop T High Sen Normal <=14 [facility] Comment on above: Result Comment: Canc elled via OM: MD Ordered Performed By: #### L 501.080 #### [facility] [address] [place], [address] LDL calc ser/plasOrdered By: Severiano Gordillo on 09-01-2024 Cholesterol in LDL [Mass/Vol] 123 mg/dL [facility] Comment on above: Sytpujgpmv=347-481 m g/dL & Higher Eoan=610 mg/dL or greater LDL Cholesterol, Calculated 123 mg/dL [facility] Comment on above: Dzlhgpmrgu=243-076 m g/dL & Higher Otbn=884 mg/dL or greater Lipid Profileon 09-01-2024 CHOL:HDL 4.38 Normal [facility] Comment on above: Performed By: #### L 500.4100, L503.0106 #### [facility] [address] [place], [address] Cholesterol [Mass/Vol] 205 mg/dL High <=200 [facility] Comment on above: Result Comment: Chol esterol level, Desirable <200 mg/dL Borderline high cholesterol 200-239 mg/dL High cholesterol >=240 mg/dL 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s of the NCEP Adult Treatment Panel for the following risk-cutoff thresholds for the [place] population. Performed By: #### L 500.4100, L503.0106 #### [facility] [address] [place], [address] Cholesterol in HDL [Mass/Vol] 47 mg/dL Normal [facility] Comment on above: Result Comment: Lydia onal Cholesterol Education Program (NCEP) guidelines: <40 mg/dL: Low HDL-cholesterol (major risk factor for CHD) >= 60 mg/dL: High HDL-cholesterol (negative risk factor for CHD) HDL-cholesterol is affected by a number of factors, e.g. smoking, exercise, hormones, sex and age. Performed By: #### L 500.4100, L503.0106 #### [facility] [address] [facility] [address] Cholesterol in LDL [Mass/Vol] 123 mg/dL Normal [facility] Comment on above: Result Comment: Bord kspwul=885-841 mg/dL Higher Ybam=592 mg/dL or greater Performed By: #### L 500.4100, L503.0106 #### [facility] [address] [place], [address] Cholesterol in VLDL [Mass/Vol] 35 mg/dL Normal 5-40 [facility] Comment on above: Performed By: #### L 500.4100, L503.0106 #### [facility] [address] [facility] [address] Triglyceride [Mass/Vol] 177 mg/dL Normal [facility] Comment on above: Result Comment: The drugs N-Acetylcysteine and Metamizole may falsely depress this assay. Normal range: <150 mg/dL Borderline High: 150-199 mg/dL High: 200-499 mg/dL Very High: >500 mg/dL Performed By: #### L 500.4100, L503.0106 #### [facility] [address] [place], [address] TRIG Normal [facility] Comment on above: Result Comment: NEED S REORDERED- PT FORGOT SHE ATE SHE WILL NEED RAN IN MORNING The drugs N-Acetylcysteine and Metamizole may falsely depress this assay. Performed By: #### L 500.4100, L499.0043 #### [facility] [address] [place], [address] CHOL Normal <=200 [facility] Comment on above: Result Comment: NEED S REORDERED- PT FORGOT SHE ATE SHE WILL NEED RAN IN MORNING Performed By: #### L 500.4100, L499.0043 #### [facility] [address] [place], [address] Result Comment: MOVE D TO DIFFERENT REQ Performed By: #### L 501.080 #### [facility] [address] [place], [address] CHOL:HDL Normal [facility] Comment on above: Result Comment: NEED S REORDERED- PT FORGOT SHE ATE SHE WILL NEED RAN IN MORNING Performed By: #### L 500.4100, L499.0043 #### [facility] [address] [place], [address] Result Comment: MOVE D TO DIFFERENT REQ Performed By: #### L 501.080 #### [facility] [address] [place], [address] CLDL Normal [facility] Comment on above: Result Comment: NEED S REORDERED- PT FORGOT SHE ATE SHE WILL NEED RAN IN MORNING Performed By: #### L 500.4100, L499.0043 #### [facility] [address] [place], [address] Result Comment: MOVE D TO DIFFERENT REQ Performed By: #### L 501.080 #### [facility] [address] [place], [address] HDL Normal [facility] Comment on above: Result Comment: NEED S REORDERED- PT FORGOT SHE ATE SHE WILL NEED RAN IN MORNING Performed By: #### L 500.4100, L499.0043 #### [facility] [address] [place], [address] Result Comment: MOVE D TO DIFFERENT REQ Performed By: #### L 501.080 #### [facility] [address] [place], [address] TRIG Normal [facility] Comment on above: Result Comment: MOVE D TO DIFFERENT REQ Performed By: #### L 501.080 #### [facility] [address] [place], [address] VLDL Normal 5-40 [facility] Comment on above: Result Comment: NEED S REORDERED- PT FORGOT SHE ATE SHE WILL NEED RAN IN MORNING Performed By: #### L 500.4100, L499.0043 #### [facility] [address] [place], [address] Result Comment: MOVE D TO DIFFERENT REQ Performed By: #### L 501.080 #### [facility] [address] [place], [address] MR/CON.PCM.NEon 09-01-2024 MR/CON.PCM.NE [facility] Medical Records Department [address] [place] [address] Consultation - Neurology 09/01/24 1432 MR#: [id number] Acct: [id number] Name: CHELSEA MOODY Rep #: [id number] : 1940 83 From: Monik Barker MD PCP: Dr. Kurt Lieberman MD Status:ADM IN Location: [place] [address]-1 Assessment and Plan: Neuro Assessment/Plan CHELSEA MOODY is a 83 F with a past medical history of HTN and DM2, being evaluated by Teleneurology for for stroke. 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 Agree with vascular surgery evaluation for CEA or HIRAL. Diagnosis: stroke related LG - Anti-platelet medication: Aspirin 81 mg daily - SBP goal 140-200 - Occupational/ Physical therapy consults - NPO until swallow evaluation. IVF until able to take po - DVT prophylaxis with SCDs and heparin SQ - Vascular risk factor modification. The following are the recommended guidelines: LDL Goal < 70 - cont lipitor 40mg Smoking Cessation Diabetes Management long term acute care registered nurse blood pressure control should achieve <130/80 mmHg. BP management should aim to achieve long term acute care registered nurse contorl in a reasonable amount of time, taking into consideration the individual patient's requirements and characteristics. Weight Management: Goal for BMI is 18.5 -24.9 kg/m2 Alcohol: No more than 2 drinks/day for men or 1 drink/day for non- women - Promote lifestyle modification: weight control, physical activity, moderation of alcohol intake, moderate sodium intake. Followup with PCP in 1-2 weeks, and in Neurology clinic in 6-12 weeks I personally attended this patient and spent a total time of 45minutes evaluating this patient including clinical assessment, review of chart, medical history imaging, and determining appropriate treatment and workup. HPI Consult Data Date of Consult: 09/01/24 HPI Narrative HPI Narrative: CHELSEA MOODY, is a 83 F with a past medical history of essential hypertension; poorly-controlled on metoprolol, obesity; BMI of 39.5 this admission, DM-2; of unknown control on insulin glargine 8U at bedtime, GERD; currently not on treatment and OA who presents to [facility] ER complaining of dizziness and highly elevated blood pressure. Ms. Moody reports her acute symptoms began a few hours prior to admission with a gradual-onset of progressively worsening dizziness and lightheadedness. She also admits to diffuse generalized weakness with patient recording her blood pressure up to 270/51 mmHg so she decided to come in for further evaluation and treatment. She states that her blood pressure has been poorly controlled for weeks with recent increase in her dose of metoprolol without subsequent improvement. She denies associated headache, focal neurologic deficits, truncal ataxia, slurred speech, chest pain, palpitations, rash, other recent illness, near-syncope, syncope or fall. In the ER she was diagnosed with Hypertensive Emergency and she was subsequently treated with 1 dose of 20 mg of IV hydralazine with subsequent slurred speech and lethargy after her blood pressure dropped from 168 mmHg systolic to 138/50 mmHg suspicious for possible 'watershed infarct' due to rapid decrease in blood pressure. She was then admitted to the PCU under observation status for ongoing care for a stay that is expected to be less than 2 midnights. Pt was getting supper when symptoms started - patient felt dizzy (lightheadedness) and felt the lights closing in on her. Had no symptoms on the L side at the time. She was not acting like herself and was crying. Pt's daughter states there was no clear facial droop and slurred speech. Pt now feels back to normal. BP at home were in the 200s. BP was noted as high at a procedure. Nonsmoker, never had stroke before. Currently no dizziness or lightheadedness. [facility] Medical History GERD (gastroesophageal reflux disease) Hypertension Diabetes Home Medications ???Medication ???Instructions ???Recorded ???Last Taken ???Type insulin glargine 100 unit/mL (3 8 unit subcut QHS 08/31/24 Unknown History mL) subcutaneous pen (Lantus Solostar U-100 Insulin) metoprolol succinate 50 mg 100 mg PO DAILY 08/31/24 Unknown H istory tablet,extended release 24 hr Allergy/AdvReac Type Severity Reaction Status Date / Time No Known Allergies Allergy Verified 08/31/24 19:32 Social History Smoking Status: Never smoker Vital Signs Vital Signs Vital Signs: 08/31/24 19:27 08/31/24 20:55 08/31/24 21:27 Temperature 97.8 F Temperature Source Oral Pulse Rate 66 65 Respiratory Rate 16 Respiratory Effort Respiratory Depth Respiratory Pattern Blood Pressure 224/66 H 202/70 H Blood Pressure Mean 118 114 (more content not included)... Normal [facility] Magnetic resonance imaging r eportOrdered By: Ravindra Hernandez on 09-01-2024 Study report [facility] Imaging Services [address], [place] [address] Brain without Contrast MR#: [id number] Acct: [id number] Name: CHELSEA MOODY Rep #: [id number] : 1940 F 83 From: Mirtha Hernandez MD PCP: Dr. Kurt Lieberman MD Status: A DM JAMES Study:Brain without Contrast Date of Exam: 08/31/24 Exam# [id number] Ordering Dr: Severiano Zheng DO ADDENDUM by Dr. Ravindra Hernandez MD on 09/01/24 at 1054 [place] Alert: Impression #1 The critical information above was relayed directly by me by telephone to janeth Alvarez RN on 09/01/2024 at 8:51 am MST with readback verification. END OF ADDENDUM Reading Location: [facility] 09/01/24 1055 Date cc: Dr. Severiano Ibarra DO; Dr. Kurt Lieberman MD ~* Signed PROCEDURE: BRAIN WITHOUT CONTRAST (MRIBR), 09/01/2024 REASON FOR EXAM: HYPERTENSIVE EMERGENCY WITH DIZZINESS COMPARISON: CT 08/31/2024 TECHNIQUE: Multisequence multiplanar MRI brain was performed without intravenous contrast. Contrast: None. FINDINGS: Cerebrum: Punctate focus of restricted diffusion likely an acute infarct in the high RIGHT frontal cortex with associated T2/FLAIR signal abnormality. No appreciable intracranial hemorrhage or mass. Mild presumed chronic microvascular ischemic white matter changes. Moderate diffuse cerebral volume loss. Cerebellum: Unremarkable. Brainstem: Unremarkable. Ventricles/extra-axial spaces: Age-appropriate appearance. Major flow voids: Grossly unremarkable within limits of nondedicated technique. Paranasal sinuses: Unremarkable. Scalp/calvarium: Hyperostosis frontalis. Orbits: Bilateral cataract surgery. Other: None. MRI/Brain without Contrast IMPRESSION: 1. Punctate high RIGHT frontal acute infarct. No mass-effect or appreciable hemorrhagic conversion. 2. Additional description as above. Reading Location: [facility] CC: Dr. Severiano Ibarra DO; Dr. Kurt Lieberman MD ~ Recycle Worker: Signed [facility] Screening total cholesterol/ high density lipoprotein (HDL) cholesterol ratioOrdered By: Severiano Gordillo on 09-01-2024 Cholesterol.total/Analy sterol in HDL [Mass ratio] 4.38 {ratio} [facility] Serum or plasma cholesterol in HDL measurement (mass/volume)Ordered By: Severiano Gordillo on 09-01-2024 Cholesterol in HDL [Mass/Vol] 47 mg/dL >40 [facility] Comment on above: National Cholesterol Education Program (NCEP) guidelines:<40 mg/dL: Low HDL-cholesterol (major risk factor for CHD)>= 60 mg/dL: High HDL-cholesterol (negative risk factor for CHD)HDL-cholesterol is affected by a number of factors, e.g. smoking, exercise, hormones, sex and age. Serum or plasma cholesterol measurement (mass/volume)Ordered By: Severiano Gordillo on 09-01-2024 Cholesterol [Mass/Vol] 205 mg/dL High <201 [facility] Comment on above: Cholesterol level, D esirable <200 mg/dLBorderline high cholesterol 200-239 mg/dLHigh cholesterol >=240 mg/dL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s of the NCEP Adult Treatment Panel for the following risk-cutoff thresholds for the [place] population. Thyroid Stim Hormone (TSH)on 09-01-2024 TSH 2.070 uIU/mL Normal 0.300-4.200 [facility] Comment on above: Order Comment: *ADD- ON* Performed By: #### L 100.0100, L500.2500 #### [facility] Laboratory [facility] [place], [address] Triglycerides measurementOrd ered By: Severiano Gordillo on 09-01-2024 Triglyceride [Mass/Vol] 177 mg/dL <199 [facility] Comment on above: The drugs N-Acetylcy steine and Metamizole may falsely depress this assay. Normal range: <150 mg/dLBorderline High: 150-199 mg/dLHigh: 200-499 mg/dLVery High: >500 mg/dL Troponin T.cardiac High sens itivity method [Mass/Vol]Ordered By: Severiano Gordillo on 09-01-2024 Troponin T High Sensitivity 4 Hour 13 ng/L <14 [facility] Troponin T.cardiac [Mass/vol ume] in Serum or Plasma by High sensitivity methodOrdered By: Severiano Gordillo on 09-01-2024 Troponin T.cardiac High sensitivity method [Mass/Vol] 13 ng/L <14 [facility] Urine Drug Screen (VISTA)on 09-01-2024 AMPHETAMINES Negative Normal <1000 ng/mL [facility] Comment on above: Order Comment: UNK Performed By: #### L 100.0100, L500.2500 #### [facility] Laboratory [address] [place], [address] BARBITIURATES Negative Normal < 200 ng/mL [facility] Comment on above: Order Comment: UNK Performed By: #### L 100.0100, L500.2500 #### [facility] Laboratory [address] [place], [address] BENZODIAZIPINE Negative Normal < 200 ng/mL [facility] Comment on above: Order Comment: UNK Performed By: #### L 100.0100, L500.2500 #### [facility] [address] [place], [address] BUP Ur Drug Scr Negative Normal < 200 ng/mL [facility] Comment on above: Order Comment: UNK Performed By: #### L 100.0100, L500.2500 #### [facility] Laboratory [address] [place], [address] COCAINE Negative Normal < 300 ng/mL [facility] Comment on above: Order Comment: UNK Performed By: #### L 100.0100, L500.2500 #### [facility] Laboratory [address] [place], [address] Fentanyl Negative Normal [facility] Comment on above: Order Comment: UNK Performed By: #### L 100.0100, L500.2500 #### [facility] Laboratory [address] [place], [address] METHADONE Negative Normal < 300 ng/mL [facility] Comment on above: Order Comment: UNK Performed By: #### L 100.0100, L500.2500 #### [facility] Laboratory [address] [place], [address] OPIATES Negative Normal < 300 ng/mL [facility] Comment on above: Order Comment: UNK Performed By: #### L 100.0100, L500.2500 #### [facility] [address] [place], [address] OXYCODONE Negative Normal < 100 ng/mL [facility] Comment on above: Order Comment: UNK Performed By: #### L 100.0100, L500.2500 #### [facility] Laboratory [address] [place], [address] PCP Negative Normal < 25 ng/mL [facility] Comment on above: Order Comment: UNK Performed By: #### L 100.0100, L500.2500 #### [facility] [address] [place], [address] THC Negative Normal < 50 ng/mL [facility] Comment on above: Order Comment: UNK Performed By: #### L 100.0100, L500.2500 #### [facility] [address] [place], [address] Vitamin B12on 09-01-2024 Cobalamin (Vitamin B12) [Mass/Vol] 421 pg/mL Normal 180-914 [facility] Comment on above: Performed By: #### L 500.4100, L503.0106 #### [facility] Laboratory [address] [place], [address] Vitamin B12 ser/plasOrdered By: Severiano Gordillo on 09-01-2024 Cobalamin (Vitamin B12) [Mass/Vol] 421 pg/mL 180-914 [facility] 12 Lead EKGon 08-31-2024 12 Lead EKG [facility] [address] [place] [address] 12 Lead EKG 08/31/24 2103 MR#: [id number] Acct: [id number] Name: CHELSEA MOODY Rep #: [id number] : 1940 83 From: Angel Shepard MD Attending Dr: Dr. Dariana Wise, DO Status: ADM I N Ordering Dr: Murphy Ramírez DO Date: 08/31/24 Location: [facility] Sex: F C Admitted: 09/01/24 Test Reason : DYSRHYTHMIA Blood Pressure : */* mmHG Vent. Rate : 64 BPM Atrial Rate : 64 BPM P-R Int : 186 ms QRS Dur : 76 ms QT Int : 406 ms P-R-T Axes : -3 37 59 degrees QTcB Int : 418 ms Normal sinus rhythm Normal ECG Confirmed by DEVYN PENN, ANGEL ([id number]), assistant editor LAURY PERSAUD ([id number]) on 09/02/2024 8:34:45 AM Referred By: Confirmed By: ANGEL SHEPARD MD 09/02/24 0834 Date Angel Shepard MD CC: Dr. Kurt Lieberman MD; Dr. Dariana Wise DO; Dr. Murphy Ramírez DO Signed Normal [facility] Absolute neutrophil countOrd ered By: Murphy Ramírez on 08-31-2024 Neutrophils (Bld) [#/Vol] 6.8 10*3/uL 2.0-7.7 [facility] Amphetamine detection with 1 000 ng/mL as cutoffOrdered By: Severiano Gordillo on 08-31-2024 Amphetamines Screen method >1000 ng/mL Ql (U) Negative < 200 ng/mL [facility] Amphetamines Screen method > 1000 ng/mL Ql (U)Ordered By: Severiano Gordillo on 08-31-2024 Amphetamines Ql (U) Negative <1000 ng/mL [facility] Urine Barbiturates Screen Negative < 200 ng/mL [facility] Anion gap in Serum or Plasma Ordered By: Murphy Ramírez on 08-31-2024 Anion gap [Moles/Vol] 12 mmol/L 5-15 [facility] Automated blood erythrocyte countOrdered By: Murphy Ramírez on 08-31-2024 RBC (Bld) [#/Vol] 4.27 10*6/uL Normal 4.2-5.4 [facility] Comment on above: Performed By: #### L 100.0100, L500.2500 #### [facility] [address] [place], [place], [address] Automated blood hematocrit ( percentage)Ordered By: Murphy Ramírez on 08-31-2024 Hematocrit (Bld) [Volume fraction] 38.5 % Normal 37-47 [facility] Comment on above: Performed By: #### L 100.0100, L500.2500 #### [facility] Laboratory [address] [place], [address] Automated lymphocyte count a s percentage of total leukocytesOrdered By: Murphy Ramírez on 08-31-2024 Lymphocytes/100 WBC (Bld) 24.9 % Normal 19-41 [facility] Comment on above: Performed By: #### L 100.0100, L500.2500 #### [facility] [address] [place], [place], [address] BUN/creatinine ratioOrdered By: Murphy Ramírez on 08-31-2024 Urea nitrogen/Creatinine [Mass ratio] 18.8 mg/mg 10-20 [facility] Basophil percentageOrdered B y: Murphy Ramírez on 08-31-2024 Basophils/100 WBC (Bld) 0.8 % Normal 0-1 [facility] Comment on above: Performed By: #### L 100.0100, L500.2500 #### [facility] Laboratory [address] [place], [place], [id number] Bedside Glucoseon 08-31-2024 FINGERSTICK GLU 141 mg/dL High 74-106 [facility] Comment on above: Result Comment: RAKESH LONGO OF PATIENT CARE PER NURSING PROTOCOL Performed By: #### L 100.0100, L500.2500 #### [facility] [address] [place], [address] Bilirubin Test strip Ql (U)O rdered By: Murphy Ramírez on 08-31-2024 Bilirubin Ql (U) Negative Negative [facility] Bilirubin, totalOrdered By: Murphy Ramírez on 08-31-2024 Bilirubin [Mass/Vol] 0.26 mg/dL Normal 0.00-1.30 [facility] Comment on above: Performed By: #### L 100.0100, L500.2500 #### [facility] Laboratory [address] [place], [address] Brain without Contraston Brain without Contrast [facility] [address] [place] [address] Brain without Contrast MR#: [id number] Acct: [id number] Name: CHELSEA MOODY Rep #: [id number] : 1940 F 83 From: Ravindra Hernandez MD PCP: Dr. Kurt Lieberman MD Status: ADM JAMES Study: Brain without Contrast Date of Exam: 08/31/24 Exam# [id number] Ordering Dr: Severiano Ibarra DO ADDENDUM by Dr. Ravindra Hernandez MD on 09/01/24 at 1054 [place] Alert: Impression #1 The critical information above was relayed directly by me by telephone to janeth Alvarez RN on 09/01/2024 at 8:51 am MST with readback verification. END OF ADDENDUM Reading Location: [facility] 09/01/24 1055 Date cc: Dr. Severiano Ibarra DO; Dr. Kurt Lieberman MD * Signed PROCEDURE: BRAIN WITHOUT CONTRAST (MRIBR), 09/01/2024 REASON FOR EXAM: HYPERTENSIVE EMERGENCY WITH DIZZINESS COMPARISON: CT 08/31/2024 TECHNIQUE: Multisequence multiplanar MRI brain was performed without intravenous contrast. Contrast: None. FINDINGS: Cerebrum: Punctate focus of restricted diffusion likely an acute infarct in the high RIGHT frontal cortex with associated T2/FLAIR signal abnormality. No appreciable intracranial hemorrhage or mass. Mild presumed chronic microvascular ischemic white matter changes. Moderate diffuse cerebral volume loss. Cerebellum: Unremarkable. Brainstem: Unremarkable. Ventricles/extra-axial spaces: Age-appropriate appearance. Major flow voids: Grossly unremarkable within limits of nondedicated technique. Paranasal sinuses: Unremarkable. Scalp/calvarium: Hyperostosis frontalis. Orbits: Bilateral cataract surgery. Other: None. MRI/Brain without Contrast IMPRESSION: 1. Punctate high RIGHT frontal acute infarct. No mass-effect or appreciable hemorrhagic conversion. 2. Additional description as above. Reading Location: [id number] CC: Dr. Severiano Ibarra DO; Dr. Kurt Lieberman MD Recycle Worker: Signed Normal [facility] Brain/Head without Contrasto n 08-31-2024 Brain/Head without Contrast [facility] [address] [place] [address] Brain/Head without Contrast MR#: [id number] Acct: [id number] Name: CHELSEA MOODY Rep #: [id number] : 1940 F 83 From: Carlos estevez MD PCP: Dr. Kurt Lieberman MD Status: REG ER Study: Brain/Head without Contrast Date of Exam: 01/17 Exam# [id number] Ordering Dr: Murphy Ramírez DO PROCEDURE: BRAIN/HEAD WITHOUT CONTRAST 08/31/2024 REASON FOR EXAM: DIZZINESS, ELEVATED BP TECHNIQUE: Head CT without intravenous contrast. Coronal and Sagittal reconstruction series were provided. One or more dose reduction techniques were used (e.g., Automated exposure control, adjustment of the mA and/or kV according to patient size, use of iterative reconstruction technique. COMPARISON: None FINDINGS: No acute intracranial hemorrhage, mass, mass effect, midline shift or pathologic extra-axial fluid collection. Mild parenchymal atrophy with commensurate increase in CSF containing spaces. Patchy white matter hypodensities, patient demographics favor chronic microvascular ischemic changes. Paranasal sinuses and mastoid air cells are clear. The calvarium is grossly intact. CT/Brain/Head without Contrast IMPRESSION: No acute intracranial abnormality. Chronic microvascular ischemia and involutional changes. Reading Location: [facility] CC: Dr. Kurt Lieberman MD; Dr. Murphy Desiree, DO Recycle Worker: Signed Normal [facility] CBC W/Diff, Automatedon Absolute Lymph 2.74 X10 3/uL Normal 0.83-4.51 [facility] Comment on above: Performed By: #### L 100.0100, L500.2500 #### [facility] Laboratory [address] [place], [address] Absolute Neut 6.8 X10 3/uL Normal 2.0-7.7 [facility] Comment on above: Performed By: #### L 100.0100, L500.2500 #### [facility] [address] [place], [address] IG% 0.500 Normal 0.0-0.9 [facility] Comment on above: Result Comment: IG% - Immature Granulocytes (promyelocytes, myelocytes and metamyelocytes) > 1% indicates that a LEFT SHIFT is Present. Performed By: #### L 100.0100, L500.2500 #### [facility] [address] [place], [address] Nucleated RBC (Bld) [#/Vol] 0 10*3/uL Normal 0-5 [facility] Comment on above: Performed By: #### L 100.0100, L500.2500 #### [facility] [address] [place], [address] RDW SD 47.4 fl High 35.1-43.9 [facility] Comment on above: Performed By: #### L 100.0100, L500.2500 #### [facility] [address] [place], [address] Carbon dioxide, total [Moles /volume] in Central venous bloodOrdered By: Murphy Ramírez on 08-31-2024 CO2 [Moles/Vol] 20.7 mmol/L Low 21.0-32.0 [facility] Comment on above: Performed By: #### L 100.0100, L500.2500 #### [facility] Laboratory [address] [place], [address] Carotid Duplex Ultrasoundon 08-31-2024 Carotid Duplex Ultrasound [facility] [address] [place] [address] Carotid Duplex Ultrasound 09/01/24 0808 MR#: [id number] Acct: [id number] Name: CHELSEA MOODY Rep #: [id number] : 1940 83 From: Ugo Rogel MD Attending Dr: Dr. Dariana Wise DO Status: ADM I NO Ordering Dr: Severiano Ibarra DO Date: 08/31/24 Location: [facility] Sex: F C Admitted: 08/31/24 Reason For Study Reason For Study: Stenosis Rt. Velocities/BP Lt. Velocities/BP Prox CCA 84.7/7.9 cm/sec. Prox CCA 111.4/12.7 cm/sec. Mid CCA 63.4/13.0 cm/sec. Mid CCA 90.7/18.2 cm/sec. Dist CCA 48.6/11.8 cm/sec. Dist CCA 64.3/13.8 cm/sec. Prox ICA 529.1/160.7 cm/sec. Prox ICA 110.4/13.8 cm/sec. Mid ICA 177.7/12.9 cm/sec. Mid ICA 79.0/23.7 cm/sec. Dist ICA 82.7/27.3 cm/sec. Dist ICA 59.3/13.8 cm/sec. Rt. ICA/CCA = 8.3. Lt. ICA/CCA = 1.2. Prox ECA 188.2/4.1 cm/sec. Prox ECA 241.3/0.0 cm/sec. Rt. Vert. 61.2/11.6 cm/sec. Lt. Vert. 70.0/9.7 cm/sec. Right Extracranial There is heterogeneous, smooth atherosclerotic plaque noted in the right common carotid artery. There is heterogeneous, irregular atherosclerotic plaque noted in the right internal carotid artery. There is heterogeneous, irregular atherosclerotic plaque noted in the right external carotid artery. Antegrade flow is noted in the right vertebral artery. Left Extracranial There is heterogeneous, smooth atherosclerotic plaque noted in the left common carotid artery. There is heterogeneous, irregular atherosclerotic plaque noted in the left internal carotid artery. There is heterogeneous, irregular atherosclerotic plaque noted in the left external carotid artery. Antegrade flow is noted in the left vertebral artery. Procedure Carotid Duplex 82263. This is a Carotid Duplex examination using B-mode, color flow and specral Doppler. Exam performed portable in patient room. Preliminary report given to MARITZA Alvarez Charge Nurse. VL/Carotid Duplex Ultrasound Interpretation Summary Severe (>70%) stenosis right extracranial internal carotid. Mild (<50%) stenosis left extracranial internal carotid. Patent and antegrade vertebrals bilaterally. Ordering Physician: Severiano Ibarra Performed By: Na Isaac, KATIE 09/01/24 1336 Date Ugo Rogel MD CC: Dr. Severiano Ibarra DO; Dr. Kurt Lieberman MD; Dr. Dariana Wise DO Date Dictated: 09/01/24 0808 Date Transcribed: 09/01/24 1336 Recycle Worker: Signed Normal [facility] Chloride assayOrdered By: Elsa Ramírez on 08-31-2024 Chloride [Moles/Vol] 103 mmol/L Normal 98-108 [facility] Comment on above: Performed By: #### L 100.0100, L500.2500 #### [facility] [address] [place], [address] Comprehensive Metabolic Prof ilon 08-31-2024 ALK PHOS 123 U/L High 35-104 [facility] Comment on above: Performed By: #### L 100.0100, L500.2500 #### [facility] [address] [place], [address] BUN/CRE 18.8 RATIO Normal 10-20 [facility] Comment on above: Performed By: #### L 100.0100, L500.2500 #### [facility] [address] [place], [address] ECRCL 39.57 ml/min Low 50-250 [facility] Comment on above: Performed By: #### L 100.0100, L500.2500 #### [facility] [address] [place], [address] GAP 12 Normal 5-15 [facility] Comment on above: Performed By: #### L 100.0100, L500.2500 #### [facility] [address] [place], [address] GFR/1.73 sq M.predicted among non-blacks MDRD (S/P/Bld) [Vol rate/Area] 57 mL/min/{1.73_m2} Low >60 [facility] Comment on above: Result Comment: mL/m in/1.73m2 CKD-EPI Creatinine Equation (2020) Performed By: #### L 100.0100, L500.2500 #### [facility] [address] [place], [address] T PROT 6.6 g/dL Normal 5.9-8.4 [facility] Comment on above: Performed By: #### L 100.0100, L500.2500 #### [facility] [address] [place], [address] Comprehensive Metabolic Prof ilOrdered By: Murphy Ramírez on 08-31-2024 AST [Catalytic activity/Vol] 21 U/L Normal <=31 [facility] Comment on above: Performed By: #### L 100.0100, L500.2500 #### [facility] [address] [place], [address] Echo Complete W/ Contraston 08-31-2024 Echo Complete W/ Contrast [facility] [address] [place] [address] Echo Complete W/ Contrast 09/01/24 1349 MR#: [id number] Acct: [id number] Name: CHELSEA MOODY Rep #: [id number] : 1940 83 From: Angel Shepard MD Attending Dr: Dr. Dariana Wise, DO Status: ADM I N Ordering Dr: Severiano Ibarra DO Date: 08/31/24 Location: [facility] Sex: F C Admitted: 09/01/24 Reason For Study Reason For Study: HTN Procedure This was a 2D Doppler, Color Flow transthoracic echocardiogram. The study was technically difficult. Contrast injection was performed. Exam performed portable in patient room. Left Ventricle Normal LV size. Left ventricular systolic function is normal. The left ventricular ejection fraction is 70 %. Stage 1 diastolic dysfunction. No regional wall motion abnormalities noted. Right Ventricle Normal RV size. Normal systolic function. Atria Normal left atrium. Normal right atrium. Mitral Valve Normal mitral valve. Tricuspid Valve Normal tricuspid valve. Aortic Valve Trisinus/trileaflet aortic valve. Mild (1+) aortic valve insufficiency. Pulmonic Valve Normal pulmonic valve. Great Vessels Normal aortic root. The pulmonary artery is normal size. Inferior vena cava collapse with respiration. Pericardium/Pleural No pericardial effusion. Medication Diluted definity 1ml given slow IV push to enhance endocardial definition. MMode/2D Measurements Calculations LVIDd: 4.5 cm IVSd: 0.83 cm LAV(MOD-bp): 31.5 ml LVIDs: 2.7 cm LVPWd: 0.87 cm RVDd: 3.4 cm FS: 41.0 % LAV(MOD-bp) Indexed: 18.9 ml/m2 LAV(MOD-sp2): 33.9 ml LAV(MOD-sp4): 29.4 ml SV(MOD-sp4): 49.4 ml SV(sp4-el): 52.2 ml LVAd ap4: 26.5 cm2 LVLd ap4: 7.4 cm SI(MOD-sp4): 29.6 ml/m2 EDV(MOD-sp4): 76.7 ml EDV(sp4-el): 80.1 ml LVAs ap4: 13.2 cm2 LVLs ap4: 5.3 cm ESV(MOD-sp4): 27.3 ml ESV(sp4-el): 27.9 ml EF(MOD-sp4): 64.5 % EF(sp4-el): 65.2 % LA dimension(2D): 3.8 cm LA A4 area: 12.9 cm2 RA A4 area: 12.6 cm2 Time Measurements MV dec time: 0.32 sec Doppler Measurements Calculations MV E max jamari: 65.7 cm/sec Lat Peak E' Jamari: 8.5 cm/sec Med Peak E' Jamari: 7.9 cm/sec MV A max jamari: 110.1 cm/sec E/E' lat: 7.7 E/E' med: 8.4 MV E/A: 0.60 MV V2 max: 116.5 cm/sec MV P1/2t max jamari: 83.5 cm/sec Ao V2 max: 133.4 cm/sec MV max P.4 mmHg MV P1/2t: 95.5 msec Ao max P.1 mmHg MV V2 mean: 57.3 cm/sec MV dec slope: 256.1 cm/sec2 MV mean P.6 mmHg MV V2 VTI: 29.4 cm MVA(P1/2t): 2.3 cm2 AI max jamari: 403.8 cm/sec LV V1 max: 110.3 cm/sec AI max P.2 mmHg LV V1 max P.9 mmHg AI dec slope: 233.7 cm/sec2 LV V1 mean P.9 mmHg AI P1/2t: 506.0 msec LV V1 mean: 81.6 cm/sec LV V1 VTI: 27.2 cm ECHO/Echo Complete W/ Contrast Interpretation Summary Normal LV size. Left ventricular systolic function is normal. The left ventricular ejection fraction is 70 %. Stage 1 diastolic dysfunction. Mild (1+) aortic valve insufficiency. Contrast injection was performed. Ordering Physician: Severiano Ibarra Performed By: Jer Valenzuela RCS 09/01/24 1734 Date Angel Shepard MD CC: Dr. Severiano Ibarra DO; Dr. Kurt Lieberman MD; Dr. 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 Kurt Lieberman MD Status:REG ER Location: ED HPI History of Present Illness Chief Complaint: Dizziness [facility] Medical History (Updated 08/31/24 @ 20:30 by Annika Melton) GERD (gastroesophageal reflux disease) Hypertension Diabetes Home Medications ???Medication ???Instructions ???Recorded ???Last Taken ???Type insulin glargine 100 unit/mL (3 8 unit subcut QHS 08/31/24 Unknown History mL) subcutaneous pen (Lantus Solostar U-100 Insulin) metoprolol succinate 50 mg 100 mg PO DAILY 08/31/24 Unknown H istory tablet,extended release 24 hr Allergy/AdvReac Type Severity Reaction Status Date / Time No Known Allergies Allergy Verified 08/31/24 19:32 Social History Smoking Status: Never smoker EXAM Physical Exam Const Vital Signs: 08/31/24 19:27 08/31/24 20:55 08/31/24 21:27 Temperature 97.8 F Temperature Source Oral Pulse Rate 66 65 Respiratory Rate 16 Blood Pressure 224/66 H 202/70 H Blood Pressure Mean 118 114 Pulse Ox 98 97 Oxygen Delivery Method Room Air Room Air 08/31/24 22:11 08/31/24 22:20 08/31/24 22:31 Temperature Temperature Source Pulse Rate 59 L 68 80 Respiratory Rate 18 18 15 Blood Pressure 270/51 H 266/71 H 168/151 H Blood Pressure Mean 124 136 156 Pulse Ox 97 99 97 Oxygen Delivery Method Room Air 08/31/24 22:33 Temperature Temperature Source Pulse Rate Respiratory Rate Blood Pressure 187/78 H Blood Pressure Mean 114 Pulse Ox Oxygen Delivery Method [facility] Narrative Medical decision making narrative: HISTORY OF PRESENT ILLNESS: Chief complaint: Dizziness 83-year-old female history of diabetes and hypertension presents with dizziness. Also lightheaded/dizzy and diffusely weak. Notes this began earlier today. No falls or trauma. No ches t pain. No shortness of breath. No palpitations. No focal weakness, slurred speech, facial drooping, incoordination. She felt she has not passed out. REVIEW OF SYSTEMS: Pertinent positives: Dizziness Pertinent negatives: Chest pain, shortness of breath, palpitation PHYSICAL EXAM: Nursing triage notes reviewed, Vital signs reviewed Constitutional: please see [facility] HENT: MMM Eyes: Pupils equal round and reactive to light, Extraocular muscles intact Neck: No stridor, no JVD, full neck ROM Lungs: Clear to auscultation, No wheezing or rales. No increased work of breathing, no conversational dyspnea, no accessory muscle use, no nasal flaring. No respiratory distress noted Heart: Regular rate and rhythm, No murmurs, No rubs and No gallops, 2+ distal pulses (radial, femoral, posterior tibial) in all extremities Abdomen: Soft, there is no tenderness, rigidity, rebound or guarding, no obvious peritoneal signs, no palpable pulsatile abdominal masses, no auscultated abdominal bruit : No CVAT Extremities: No edema Neuro: Alert and oriented x3, neuro exam at baseline, cranial nerves II through XII are intact. No pain with extraocular muscle movement. There is negative test of skew. 5 of 5 strength in upper and lower extremities in flexion extension. Intact sensation to light touch in upper and lower extremity dermatomes. No truncal or extremity ataxia. No dysdiadochokinesia. 2+ reflexes in upper and lower extremities. No meningeal signs. Negative Babinski. NIH of 0. Skin: No rash or lesions noted MEDICAL DECISION MAKING: Chief Complaint: please see [facility] External records reviewed: Reviewed prior imaging studies Factors affecting care: Hypertension, type 2 diabetes Social determinants of health: none History obtained from others: none Consults: none [facility] Narrative: Patient was initially hypertensive blood pressure 224/66 otherwise afebrile and nontoxic-appearing. Initial exam without focal neurologic deficits. No focal cardiopulmonary abnormalities I considered the following differential diagnosis: Endorgan damage of elevated blood pressure, ICH, ACS, arrhythmia, anemia, kidney dysfunction, CVA Patient's blood pressure continued to elevate with systolics as high as 266 so she was given 20 mg IV hydralazine given heart rate was initially in the 60s. After IV hydralazine patient blood pressure improved to 168 systolic. Patient noted she felt weak or different. Daughter noted some transient slurred speech which resolved upon my assessment. Repeat neurologic exam remained intact NIH was 0. ALL IMAGES (IF OBTAINED) HAVE BEEN PERSONALLY REVIEWED AND INTERPRETED BY MYSELF. EKG with normal s (more content not included)... Normal [facility] Eosinophil percentageOrdered By: Murphy Ramírez on 08-31-2024 Eosinophils/100 WBC (Bld) 3.2 % Normal 0-5 [facility] Comment on above: Performed By: #### L 100.0100, L500.2500 #### [facility] [address] [place], [address] Epithelial cells.squamous LM Ql (Urine sed)Ordered By: Murphy Ramírez on 08-31-2024 Epithelial cells.squamous LM.HPF (Urine sed) [#/Area] 5 /[HPF] 5-10 [facility] Erythrocyte distribution wid th (RBC) [Ratio]Ordered By: Murphy Ramírez on 08-31-2024 Erythrocyte distribution width (RBC) [Entitic vol] 47.4 fL High 35.1-43.9 [facility] Erythrocyte distribution wid th ratioOrdered By: Murphy Ramírez on 08-31-2024 Erythrocyte distribution width (RBC) [Ratio] 14.3 % Normal 11.6-14.6 [facility] Comment on above: Performed By: #### L 100.0100, L500.2500 #### [facility] [address] [place], [address] Estimation of creatinine samuel aranceOrdered By: Murphy Ramírez on 08-31-2024 Estimated Creatinine Clearance Calc 39.57 ml/min Low 50-250 [facility] Ethanol [Mass/Vol]Ordered By : Severiano Gordillo on 08-31-2024 Ethyl Alcohol Level < 10.1 mg/dL <10.1 [facility] Comment on above: This test is for med ical purposes only. The legal definition of intoxication varies according to local law. GFR/1.73 sq M.predicted albaro g non-blacks MDRD (S/P/Bld) [Vol rate/Area]Ordered By: Murphy Ramírez on 08-31-2024 Estimated GFR (MDRD) Non-Af Amer 57 Low >60 [facility] Comment on above: mL/min/1.73m2 CKD-EP I Creatinine Equation (2020) Glucose Ql (U)Ordered By: Elsa Ramírez on 08-31-2024 Urine Glucose (UA) Normal mg/dl Normal [facility] deOrdered By: Murphy Ramírez on 08-31-2024 Bedside Glucose (Misc Panel) 141 mg/dL High 74-106 [facility] Comment on above: MANAGEMENT OF PATIEN T CARE PER NURSING PROTOCOL H AND P Exam - Hospitaliston 08-31-2024 H&P Exam - Hospitalist [facility] Medical Records Department [address] [place] [address] H P Exam - Hospitalist 08/31/24 2305 MR#: [id number] Acct: [id number] Name: CHELSEA MOODY Rep #: [id number] : 1940 83 From: Severiano Ibarra DO PCP: Dr. Kurt Lieberman MD Status:ADM JAMES Location: [address] - General General Date of Service: 08/31/24 Chief Complaint: Dizziness and Highly Elevated Blood Pressure. HPI Narrative CHELSEA MOODY, is a 83 F with a past medical history of essential hypertension; poorly-controlled on metoprolol, obesity; BMI of 39.5 this admission, DM-2; of unknown control on insulin glargine 8U at bedtime, GERD; currently not on treatment and OA who presents to [facility] ER complaining of dizziness and highly elevated blood pressure. Ms. Moody reports her acute symptoms began a few hours prior to admission with a gradual-onset of progressively worsening dizziness and lightheadedness. She also admits to diffuse generalized weakness with patient recording her blood pressure up to 270/51 mmHg so she decided to come in for further evaluation and treatment. She states that her blood pressure has been poorly controlled for weeks with recent increase in her dose of metoprolol without subsequent improvement. She denies associated headache, focal neurologic deficits, truncal ataxia, slurred speech, chest pain, palpitations, rash, other recent illness, near-syncope, syncope or fall. In the ER she was diagnosed with Hypertensive Emergency and she was subsequently treated with 1 dose of 20 mg of IV hydralazine with subsequent slurred speech and lethargy after her blood pressure dropped from 168 mmHg systolic to 138/50 mmHg suspicious for possible 'watershed infarct' due to rapid decrease in blood pressure. She was then admitted to the PCU under observation status for ongoing care for a stay that is expected to be less than 2 midnights. [facility] Medical History GERD (gastroesophageal reflux disease) Hypertension Diabetes Home Medications ???Medication ???Instructions ???Recorded ???Last Taken ???Type insulin glargine 100 unit/mL (3 8 unit subcut QHS 08/31/24 Unknown History mL) subcutaneous pen (Lantus Solostar U-100 Insulin) metoprolol succinate 50 mg 100 mg PO DAILY 08/31/24 Unknown H istory tablet,extended release 24 hr Allergy/AdvReac Type Severity Reaction Status Date / Time No Known Allergies Allergy Verified 08/31/24 19:32 Social History Smoking Status: Never smoker ROS ROS Narrative Review of Systems: Constitutional: Patient admits to lightheadedness, dizziness and diffuse generalized weakness but she denies fever or chills. Eyes: Patient denies changes in vision or discharge from eyes. ENT: Patient denies runny nose, sore throat or ear pain. Resp: Patient denies shortness of breath or cough. CV: Patient denies chest pain, palpitations, heart racing or lower extremity edema. GI: Patient denies abdominal pain, nausea, vomiting, diarrhea or constipation. : Patient denies dysuria, hematuria or urinary frequency. MSK: Patient admits to generalized weakness but she denies arthralgias or myalgias. Skin: Patient denies rash, abscess, wounds or jaundice. Psych: Patient denies symptoms of uncontrolled depression or anxiety. Neuro: Patient admits to dizziness, lightheadedness and generalized weakness with subsequent slurred speech after rapid decrease in blood pressure as per HPI. She denies headache or paresthesias. Allergies: Patient denies lip swelling, tongue swelling or urticaria. Hematology: Patient denies easy bleeding or easy bruisability. Endocrinology: Patient denies polyuria, polydipsia, polyphagia or heat/cold intolerance. 14 point ROS otherwise negative except for positives noted above in HPI. Vital Signs Vital Signs Vital Signs: 08/31/24 19:27 08/31/24 20:55 08/31/24 21:27 Temperature 97.8 F Temperature Source Oral Pulse Rate 66 65 Respiratory Rate 16 Blood Pressure 224/66 H 202/70 H Blood Pressure Mean 118 114 Pulse Ox 98 97 Oxygen Delivery Method Room Air Room Air 08/31/24 22:11 08/31/24 22:20 08/31/24 22:31 Temperature Temperature Source Pulse Rate 59 L 68 80 Respiratory Rate 18 18 15 Blood Pressure 270/51 H 266/71 H 168/151 H Blood Pressure Mean 124 136 156 Pulse Ox 97 99 97 Oxygen Delivery Method Room Air 08/31/24 22:33 08/31/24 22:50 08/31/24 23:04 Temperature 97.8 F Temperature Source Pulse Rate 80 79 Respiratory Rate 15 23 H Blood Pressure 187/78 H 187/78 H 138/50 H Blood Pressure Mean 114 114 79 Pulse Ox 97 Oxygen Delivery Method Weight Weight: 176 lb 2.389 o (more content not included)... Normal [facility] HEMOGLOBIN A1con 08-31-2024 HEMOGLOBIN A1c 7.5 % of total Hgb High <5.7 [facility] Comment on above: Result Comment: For someone without known diabetes, a hemoglobin A1c value of 6.5% or greater indicates that they may have diabetes and this should be confirmed with a follow-up test. For someone with known diabetes, a value <7% indicates that their diabetes is well controlled and a value greater than or equal to 7% indicates suboptimal control. A1c targets should be individualized based on duration of diabetes, age, comorbid conditions, and other considerations. Currently, no consensus exists regarding use of hemoglobin A1c for diagnosis of diabetes for children. Performed By: #### 4 [id number] #### [facility] [address], [address] [place] [address] Broach Trouble Shooter: Channing Quiroga MD Hemoglobin measurementOrdere d By: Murphy Ramírez on 08-31-2024 Hemoglobin (Bld) [Mass/Vol] 13.1 g/dL Normal 12.0-15.0 [facility] Comment on above: Performed By: #### L 100.0100, L500.2500 #### [facility] [address] [place], [address] Immature granulocytes/100 WB C Auto (Bld)Ordered By: Murphy Ramírez on 08-31-2024 Immature granulocytes/100 WBC (Bld) 0.500 % 0.0-0.9 [facility] Comment on above: IG% - Immature Granu locytes (promyelocytes, myelocytes and metamyelocytes) > 1% indicates that a LEFT SHIFT is Present. Ketones Test strip Ql (U)Ord ered By: Murphy Ramírez on 08-31-2024 Ketones Ql (U) Negative Negative [facility] L499.0042on 08-31-2024 Trop T High Sen 13 ng/L Normal <=14 [facility] Comment on above: Result Comment: Tracie davis via OM: Ordered Performed By: #### L 100.0100, L500.2500 #### [facility] [address] [place], [address] L501.4021on 08-31-2024 Trop T High Sen 12 ng/L Normal <=14 [facility] Comment on above: Performed By: #### L 100.0100, L500.2500 #### [facility] [address] [place], [address] Lymphocytes Auto (Unsp spec) [#/Vol]Ordered By: Murphy Ramírez on 08-31-2024 Lymphocytes (Bld) [#/Vol] 2.74 10*3/uL 0.83-4.51 [facility] MCV (mean corpuscular volume ) determinationOrdered By: Murphy Ramírez on 08-31-2024 MCV (RBC) [Entitic vol] 90.2 fL Normal 81-99 [facility] Comment on above: Performed By: #### L 100.0100, L500.2500 #### [facility] [address] [place], [place], [id number] Mean corpuscular hemoglobin (MCH) determinationOrdered By: Murphy Ramírez on 08-31-2024 MCH (RBC) [Entitic mass] 30.7 pg Normal 27.0-32.0 [facility] Comment on above: Performed By: #### L 100.0100, L500.2500 #### [facility] [address] [place], [place], [id number] Mean corpuscular hemoglobin concentration (MCHC) determinationOrdered By: Murphy Ramírez on 08-31-2024 MCHC (RBC) [Mass/Vol] 34.0 g/dL Normal 32-36 [facility] Comment on above: Performed By: #### L 100.0100, L500.2500 #### [facility] [address] [place], [place], [id number] Mean platelet volume determi nationOrdered By: Murphy Ramírez on 08-31-2024 Platelet mean volume (Bld) [Entitic vol] 10.7 fL Normal 6.2-12.0 [facility] Comment on above: Performed By: #### L 100.0100, L500.2500 #### [facility] [address] [place], [place], [id number] Methadone, urineOrdered By: Severiano Gordillo on 08-31-2024 Urine Methadone Screen Negative < 300 ng/mL [facility] Microscopic analysis of urin e for red blood cells (RBC)Ordered By: Murphy Ramírez on 08-31-2024 Microscopic analysis of urine for red blood cells (RBC) 0 SEEN /hpf 0-5 [facility] Urine RBC 0 SEEN /hpf 0-5 [facility] Monocyte percentageOrdered B y: Murphy Ramírez on 08-31-2024 Monocytes/100 WBC (Bld) 9.1 % Normal 0-10 [facility] Comment on above: Performed By: #### L 100.0100, L500.2500 #### [facility] [address] [place], [address] Mucus LM Ql (Urine sed)Order ed By: Murphy Ramírez on 08-31-2024 Mucus Ql (Urine sed) 0 SEEN /hpf [facility] Natriuretic peptide.B prohor josue N-Terminal [Mass/volume] in Serum or PlasmaOrdered By: Murphy Ramírez on 08-31-2024 Natriuretic peptide B (Bld) [Mass/Vol] 245 pg/mL Normal <=1800 [facility] Comment on above: Heart Failure Unlike ly: < 300 pg/mLHeart Failure Likely< 50 Years: > 450 pg/mL50-75 Years: > 900 pg/mL>75 Years: > 1800 pg/mL Result Comment: Hear t Failure Unlikely: < 300 pg/mL Heart Failure Likely < 50 Years: > 450 pg/mL 50-75 Years: > 900 pg/mL >75 Years: > 1800 pg/mL Performed By: #### L 100.0100, L500.2500 #### [facility] [address] [facility] [place], [address] Natriuretic peptide.B prohormone N-Terminal [Mass/Vol] 245 pg/mL <1800 [facility] Comment on above: Heart Failure Unlike ly: < 300 pg/mLHeart Failure Likely< 50 Years: > 450 pg/mL50-75 Years: > 900 pg/mL>75 Years: > 1800 pg/mL Neutrophil percentageOrdered By: Murphy Ramírez on 08-31-2024 Neutrophils/100 WBC (Bld) 61.5 % Normal 47-70 [facility] Comment on above: Performed By: #### L 100.0100, L500.2500 #### [facility] [address] [facility] [place], [address] Nitrite Test strip Ql (U)Ord ered By: Murphy Ramírez on 08-31-2024 Nitrite Ql (U) Negative Negative [facility] No Panel InformationOrdered By: Severiano Gordillo on 08-31-2024 Urine Buprenorphine Qualitative Negative < 200 ng/mL [facility] Urine Oxycodone Screen Negative < 100 ng/mL [facility] Nucleated red blood cell per centageOrdered By: Murphy Ramírez on 08-31-2024 Nucleated RBC/100 WBC (Bld) [Ratio] 0 % 0-5 [facility] Platelet countOrdered By: Elsa Ramírez on 08-31-2024 Platelets (Bld) [#/Vol] 296 10*3/uL Normal 150-450 [facility] Comment on above: Performed By: #### L 100.0100, L500.2500 #### [facility] [address] [place], [address] Potassium measurement (mass/ volume)Ordered By: Murphy Ramírez on 08-31-2024 Potassium [Moles/Vol] 4.2 mmol/L Normal 3.3-5.1 [facility] Comment on above: Performed By: #### L 100.0100, L500.2500 #### [facility] [address] [place], [address] Protein Test strip Ql (U)Ord ered By: Murphy Ramírez on 08-31-2024 Protein Ql (U) Negative Negative [facility] Quantitative urine opiates m easurementOrdered By: Severiano Gordillo on 08-31-2024 Opiates Ql (U) Negative < 300 ng/mL [facility] Screening urine fentanyl sandy surementOrdered By: Severiano Gordillo on 08-31-2024 fentaNYL Screen Ql (U) Negative [facility] Serum creatinine measurement (mass/volume)Ordered By: Murphy Ramírez on 08-31-2024 Creatinine [Mass/Vol] 0.99 mg/dL Normal 0.70-1.20 [facility] Comment on above: Performed By: #### L 100.0100, L500.2500 #### [facility] [address] [place], [address] Serum globulin measurementOr dered By: Murphy Ramírez on 08-31-2024 Globulin (S) [Mass/Vol] 2.7 g/dL Normal 2.2-4.2 [facility] Comment on above: Performed By: #### L 100.0100, L500.2500 #### [facility] [address] [place], [address] Serum glucose measurement (m ass/volume)Ordered By: Murphy Ramírez on 08-31-2024 Glucose [Mass/Vol] 155 mg/dL High 70-99 [facility] Comment on above: Performed By: #### L 100.0100, L500.2500 #### [facility] [address] [place], [address] Serum or plasma alanine jackson otransferase (ALT) measurementOrdered By: Murphy Ramírez on 08-31-2024 ALT [Catalytic activity/Vol] 26 U/L Normal <=34 [facility] Comment on above: Performed By: #### L 100.0100, L500.2500 #### [facility] [address] [place], [address] Serum or plasma albumin alfred urement (mass/volume)Ordered By: Murphy Ramírez on 08-31-2024 Albumin [Mass/Vol] 3.8 g/dL Normal 3.4-4.8 [facility] Comment on above: Performed By: #### L 100.0100, L500.2500 #### [facility] [address] [place], [address] Serum or plasma albumin/glob ulin mass ratioOrdered By: Murphy Ramírez on 08-31-2024 Albumin/Globulin [Mass ratio] 1.4 {ratio} Normal 0.9-2.4 [facility] Comment on above: Performed By: #### L 100.0100, L500.2500 #### [facility] [address] [place], [place], [id number] Serum or plasma alkaline windy sphatase measurementOrdered By: Murphy Ramírez on 08-31-2024 ALP [Catalytic activity/Vol] 123 U/L High 35-104 [facility] Serum or plasma calcium alfred urement (mass/volume)Ordered By: Murphy Ramírez on 08-31-2024 Calcium [Mass/Vol] 9.1 mg/dL Normal 7.6-11.0 [facility] Comment on above: Performed By: #### L 100.0100, L500.2500 #### [facility] [address] [place], [address] Serum or plasma ethanol alfred urement (mass/volume)Ordered By: Severiano Gordillo on 08-31-2024 Ethanol [Mass/Vol] mg/dL <10.1 [facility] Comment on above: This test is for med ical purposes only. The legal definition of intoxication varies according to local law. Serum or plasma urea nitroge n measurement (mass/volume)Ordered By: Murphy Ramírez on 08-31-2024 Urea nitrogen [Mass/Vol] 19 mg/dL Normal 4-19 [facility] Comment on above: Performed By: #### L 100.0100, L500.2500 #### [facility] [address] [place], [place], [id number] Sodium levelOrdered By: Bekah Ramírez on 08-31-2024 Sodium [Moles/Vol] 136 mmol/L Normal 133-145 [facility] Comment on above: Performed By: #### L 100.0100, L500.2500 #### [facility] [address] [place], [address] Squamous epithelial cells de tection in urine sediment by light microscopyOrdered By: Murphy Ramírez on 08-31-2024 Epithelial cells.squamous LM Ql (Urine sed) 5-10 SEEN /hpf 5-10 [facility] TSH DL <= 0.005 mIU/L QnOrde red By: Severiano Gordillo on 08-31-2024 Thyroid Stimulating Hormone (TSH) 2.070 uIU/mL 0.300-4.200 [facility] TSH Qn 2.070 uIU/mL 0.300-4.200 [facility] Total proteinOrdered By: My Ramírez on 08-31-2024 Protein [Mass/Vol] 6.6 g/dL 5.9-8.4 [facility] Troponin T.cardiac High sens itivity method [Mass/Vol]Ordered By: Murphy Ramírez on 08-31-2024 Troponin T High Sensitivity 2 Hour 13 ng/L <14 [facility] Troponin T High Sensitivity 12 ng/L <14 [facility] Troponin T.cardiac [Mass/vol ume] in Serum or Plasma by High sensitivity methodOrdered By: Murphy Ramírez on 08-31-2024 Troponin T.cardiac High sensitivity method [Mass/Vol] 13 ng/L <14 [facility] Troponin T.cardiac High sensitivity method [Mass/Vol] 12 ng/L <14 [facility] Urinalysis, Completeon 08-31 BACTERIA 2+ /hpf Normal None Seen [facility] Comment on above: Order Comment: CLEAN CATCH Performed By: #### L 100.0100, L500.2500 #### [facility] [address] [place], [address] EPI,SQUAMOUS 5-10 SEEN Normal 5-10 [facility] Comment on above: Order Comment: CLEAN CATCH Performed By: #### L 100.0100, L500.2500 #### [facility] [address] [place], [address] WBC 0-5 SEEN Normal 0-5 [facility] Comment on above: Order Comment: CLEAN CATCH Performed By: #### L 100.0100, L500.2500 #### [facility] [address] [place], [address] Mucus Ql (Urine sed) 0 SEEN Normal [facility] Comment on above: Order Comment: CLEAN CATCH Performed By: #### L 100.0100, L500.2500 #### [facility] [address] [place], [address] RBC 0 SEEN Normal 0-5 [facility] Comment on above: Order Comment: CLEAN CATCH Performed By: #### L 100.0100, L500.2500 #### [facility] [address] [place], [address] Urine benzodiazepine levelOr dered By: Severiano Gordillo on 08-31-2024 Benzodiazepines Ql (U) Negative < 200 ng/mL [facility] Urine blood detectionOrdered By: Murphy Ramírez on 08-31-2024 Urine Occult Blood Negative Negative [facility] Urine clarityOrdered By: My Ramírez on 08-31-2024 Clarity (U) Clear Clear [facility] [facility] cocaine levelOrdered B y: Severiano Gordillo on 08-31-2024 Cocaine Ql (U) Negative < 300 ng/mL [facility] Urine color determinationOrd ered By: Murphy Ramírez on 08-31-2024 Color (U) Yellow Yellow [facility] Urine fylio-0-lchuyzoacebfho abinol (THC) measurementOrdered By: Severiano Gordlilo on 08-31-2024 Cannabinoids Screen Ql (U) Negative < 50 ng/mL [facility] Urine glucose detectionOrder ed By: Murphy Ramírez on 08-31-2024 Glucose Ql (U) Normal mg/dl Normal [facility] Urine leukocyte esterase det ection by dipstickOrdered By: Murphy Ramírez on 08-31-2024 Leukocyte esterase Test strip Ql (U) Negative Negative [facility] Urine pHOrdered By: Murphy sol on 08-31-2024 pH (U) 6.0 [pH] 5.0 - 8.0 [facility] Urine phencyclidine (PCP) de tectionOrdered By: Severiano Gordillo on 08-31-2024 Phencyclidine Ql (U) Negative < 25 ng/mL [facility] Urine sediment bacteria coun t by microscopy (number/high power field)Ordered By: Murphy Ramírez on 08-31-2024 Bacteria LM.HPF (Urine sed) [#/Area] 2 /[HPF] None Seen [facility] Urine specific gravity measu rementOrdered By: Murphy Ramírez on 08-31-2024 Specific gravity (U) [Rel density] 1.010 1.002-1.030 [facility] Urine urobilinogen measureme ntOrdered By: Murphy Ramírez on 08-31-2024 Urobilinogen Ql (U) Normal mg/dl Normal [facility] Urobilinogen Ql (U)Ordered B y: Murphy Ramírez on 08-31-2024 Urine Urobilinogen Normal mg/dl Normal [facility] White blood cell (WBC) count Ordered By: Murphy Ramírez on 08-31-2024 WBC (Bld) [#/Vol] 11.0 10*3/uL Normal 4.4-11.0 [facility] Comment on above: Performed By: #### L 100.0100, L500.2500 #### [facility] [address] [place], [place], [id number] White blood cell countOrdere d By: Murphy Ramírez on 08-31-2024 Urine WBC 0-5 SEEN /hpf 0-5 [facility] White blood cell count 0-5 SEEN /hpf 0-5 [facility] fentaNYL Screen Ql (U)Ordere d By: Severiano Gordillo on 08-31-2024 Urine Fentanyl Screen Negative [facility] Knee 3 Viewson 05-20-2024 Knee 3 Views [facility] [address] [place], [place] [address] Knee 3 Views MR#: [id number] Acct: [id number] Name: CHELSEA MOODY Rep #: [id number] : 1940 F 83 From: Gil Herring MD PCP: Dr. Kurt Lieberman MD Status: REG CLI Study: Knee 3 Views Date of Exam: 05/20/24 Exam# [id number] Ordering Dr: Kurt Lieberman MD [id number] STUDY: X-RAY - LEFT KNEE REASON FOR EXAM: Female, 83 years old. PAIN IN LEFT KNEE TECHNIQUE: 3 view(s) of the knee. COMPARISON: None. FINDINGS: Normal visualized distal femur. Normal visualized proximal tibia and fibula. Normal proximal tibiofibular articulation. There is mild degenerative arthrosis of the medial femorotibial compartment. There is mild degenerative arthrosis of the lateral femorotibial compartment. Normal patellofemoral articulation. 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 The soft tissue structures are unremarkable. RAD/Knee 3 Views IMPRESSION: CPPD with mild arthrosis. Electronically Signed: Gil Herring MD at 17:25 EST , CC: Dr. Kurt Lieberman MD Recycle Worker: Signed Normal [facility] ALBUMIN, RANDOM URINE W/CREA [place] 12-19-2023 ALBUMIN, URINE <0.2 Normal See Note: [facility] Comment on above: Result Comment: Refe renaltagracia Range: Reference Range Not established Performed By: #### 6 399, 7600, 31134, 6517, 496 #### [facility] [address] [address] [employer]ach Trouble Shooter: Channing Quiroga MD ALBUMIN/CREATININE RATIO, RANDOM URINE NOTE Normal <30 [facility] Comment on above: Result Comment: NOTE : The urine albumin value is less than 0.2 mg/dL therefore we are unable to calculate excretion and/or creatinine ratio. The ADA defines abnormalities in albumin excretion as follows: Albuminuria Category Result (mg/g creatinine) Normal to Mildly increased <30 Moderately increased 30-299 Severely increased > OR = 300 The ADA recommends that at least two of three specimens collected within a 3-6 month period be abnormal before considering a patient to be within a diagnostic category. Performed By: #### 6 399, 7600, 63191, 6517, 496 #### [facility] [address], [address] [place] [address] [employer]ach Trouble Shooter: Channing Quiroga MD Creatinine (U) [Mass/Vol] 26 mg/dL Normal 20-275 [facility] Comment on above: Performed By: #### 6 399, 7600, 35542, 6517, 496 #### [facility] [place] [address] [employer] Trouble Shooter: Channing Quiroga MD CBC (INCLUDES DIFF/PLT)on Basophils (Bld) [#/Vol] 0.067 10*3/uL Normal 0-200 [facility] Comment on above: Performed By: #### 6 399, 7600, 19689, 6517, 496 #### [facility] [place] [address] [employer] Trouble Shooter: Channing Quiroga MD Basophils/100 WBC (Bld) 0.9 % Normal [facility] Comment on above: Performed By: #### 6 399, 7600, 03135, 6517, 496 #### [facility] [place] [address] [employer] Trouble Shooter: Channing Quiroga MD Eosinophils (Bld) [#/Vol] 0.311 10*3/uL Normal 15-500 [facility] Comment on above: Performed By: #### 6 399, 7600, 64635, 6517, 496 #### [facility] [place] [address] [employer] Trouble Shooter: Channing Quiroga MD Eosinophils/100 WBC (Bld) 4.2 % Normal [facility] Comment on above: Performed By: #### 6 399, 7600, 55800, 6517, 496 #### [facility] [place] [address] [employer] Trouble Shooter: Channing Quiroga MD Erythrocyte distribution width (RBC) [Ratio] 13.9 % Normal 11.0-15.0 [facility] Comment on above: Performed By: #### 6 399, 7600, 76115, 6517, 496 #### [facility] [place] [address] [employer] Trouble Shooter: Channing Quiroga MD Hematocrit (Bld) [Volume fraction] 42.5 % Normal 35.0-45.0 [facility] Comment on above: Performed By: #### 6 399, 7600, 44603, 6517, 496 #### [facility] [place] [address] [employer] Trouble Shooter: Channing Quiroga MD Hemoglobin (Bld) [Mass/Vol] 13.3 g/dL Normal 11.7-15.5 [facility] Comment on above: Performed By: #### 6 399, 7600, 11758, 6517, 496 #### [facility] [place] [address] [employer] Trouble Shooter: Channing Quiroga MD Lymphocytes (Bld) [#/Vol] 2.827 10*3/uL Normal 850-3900 [facility] Comment on above: Performed By: #### 6 399, 7600, 52044, 6517, 496 #### [facility] [place] [address] [employer] Trouble Shooter: Channing Quiroga MD Lymphocytes/100 WBC (Bld) 38.2 % Normal [facility] Comment on above: Performed By: #### 6 399, 7600, 93534, 6517, 496 #### [facility] [place] [address] [employer] Trouble Shooter: Channing Quiroga MD MCH (RBC) [Entitic mass] 29.8 pg Normal 27.0-33.0 [facility] Comment on above: Performed By: #### 6 399, 7600, 89702, 6517, 496 #### [facility] [place] [address] [employer] Trouble Shooter: Channing Quiroga MD MCHC (RBC) [Mass/Vol] 31.3 g/dL Low 32.0-36.[address] [facility] Comment on above: Performed By: #### 6 399, 7600, 54230, 6517, 496 #### [facility] [place] [address] [employer] Trouble Shooter: Channing Quiroga MD MCV (RBC) [Entitic vol] 95.3 fL Normal 80.0-100.0 [facility] Comment on above: Performed By: #### 6 399, 7600, 97708, 6517, 496 #### [facility] [place] [address] [employer] Trouble Shooter: Channing Quiroga MD Monocytes (Bld) [#/Vol] 0.792 10*3/uL Normal 200-950 [facility] Comment on above: Performed By: #### 6 399, 7600, 68377, 6517, 496 #### [facility] [place] [address] [employer] Trouble Shooter: Channing Quiroga MD Monocytes/100 WBC (Bld) 10.7 % Normal [facility] Comment on above: Performed By: #### 6 399, 7600, 49954, 6517, 496 #### [facility] [place] [address] [employer] Trouble Shooter: Channing Quiroga MD Neutrophils (Bld) [#/Vol] 3.404 10*3/uL Normal 4487-3024 [facility] Comment on above: Performed By: #### 6 399, 7600, 94704, 6517, 496 #### [facility] [place] [address] [employer] Trouble Shooter: Channing Quiroga MD Neutrophils/100 WBC (Bld) 46 % Normal [facility] Comment on above: Performed By: #### 6 399, 7600, 49258, 6517, 496 #### [facility] [place] [address] [employer] Trouble Shooter: Channing Quiroga MD Platelet mean volume (Bld) [Entitic vol] 11.4 fL Normal 7.5-12.5 [facility] Comment on above: Performed By: #### 6 399, 7600, 42781, 6517, 496 #### [facility] [place] [address] [employer] Trouble Shooter: Channing Quiroga MD Platelets (Bld) [#/Vol] 309 10*3/uL Normal 140-400 [facility] Comment on above: Performed By: #### 6 399, 7600, 30197, 6517, 496 #### [facility] of [address], [address] [place] [address] [employer]ach Trouble Shooter: Channing Quiroga MD RBC (Bld) [#/Vol] 4.46 10*6/uL Normal 3.80-5.10 [facility] Comment on above: Performed By: #### 6 399, 7600, 05965, 6517, 496 #### [facility] [place] [address] [employer]ach Trouble Shooter: Channing Quiroga MD WBC (Bld) [#/Vol] 7.4 10*3/uL Normal 3.8-10.8 [facility] Comment on above: Performed By: #### 6 399, 7600, 20472, 6517, 496 #### [facility] [place] [address] [employer] Trouble Shooter: Channing Quiroga MD [facility] 12-19-2023 Albumin [Mass/Vol] 4.2 g/dL Normal 3.6-5.1 [facility] Comment on above: Performed By: #### 6 399, 7600, 32139, 6517, 496 #### [facility] [place] [address] [employer] Trouble Shooter: Channing Quiroga MD Albumin/Globulin [Mass ratio] 1.6 {ratio} Normal 1.0-2.5 [facility] Comment on above: Performed By: #### 6 399, 7600, 36809, 6517, 496 #### [facility] [place] [address] [employer] Trouble Shooter: Channing Quiroga MD ALP [Catalytic activity/Vol] 79 U/L Normal 37-153 [facility] Comment on above: Performed By: #### 6 399, 7600, 59617, 6517, 496 #### [facility] of [address], [address] [place] [address] Broach Trouble Shooter: Channing Quiroga MD ALT [Catalytic activity/Vol] 27 U/L Normal 6-29 [facility] Comment on above: Performed By: #### 6 399, 7600, 60151, 6517, 496 #### [facility] of [address], [address] [place] [address] Broach Trouble Shooter: Channing Quiroga MD AST [Catalytic activity/Vol] 18 U/L Normal 10-35 [facility] Comment on above: Performed By: #### 6 399, 7600, 61949, 6517, 496 #### [facility] of [address], [address] [place] [address] Broach Trouble Shooter: Channing Quiroga MD Bilirubin [Mass/Vol] 0.4 mg/dL Normal 0.2-1.2 [facility] Comment on above: Performed By: #### 6 399, 7600, 32125, 6517, 496 #### [facility] of [address], [address] [place] [address] Broach Trouble Shooter: Channing Quiroga MD Calcium [Mass/Vol] 9.6 mg/dL Normal 8.6-10.4 [facility] Comment on above: Performed By: #### 6 399, 7600, 38759, 6517, 496 #### [facility] of [address], [address] [place] [address] Broach Trouble Shooter: Channing Quiroga MD Chloride [Moles/Vol] 104 mmol/L Normal 98-110 [facility] Comment on above: Performed By: #### 6 399, 7600, 79013, 6517, 496 #### [facility] of [address], [address] [place] [address] Broach Trouble Shooter: Channing Quiroga MD CO2 [Moles/Vol] 27 mmol/L Normal 20-32 [facility] Comment on above: Performed By: #### 6 399, 7600, 93469, 6517, 496 #### [facility] [address], [address] [place] [address] Broach Trouble Shooter: Channing Quiroga MD Creatinine [Mass/Vol] 1.11 mg/dL High 0.60-0.[address] [facility] Comment on above: Performed By: #### 6 399, 7600, 88340, 6517, 496 #### [facility] [address], [address] [place] [address] Broach Trouble Shooter: Channing Quiroga MD GFR/1.73 sq M.predicted among non-blacks MDRD (S/P/Bld) [Vol rate/Area] 49 mL/min/{1.73_m2} Low > OR = 60 [facility] Comment on above: Performed By: #### 6 399, 7600, 84277, 6517, 496 #### [facility] [address], [address] [place] [address] Broach Trouble Shooter: Channing Quiroga MD Globulin (S) [Mass/Vol] 2.7 g/dL Normal 1.9-3.7 [facility] Comment on above: Performed By: #### 6 399, 7600, 79714, 6517, 496 #### [facility] [place] [address] Broach Trouble Shooter: Channing Quiroga MD Glucose [Mass/Vol] 137 mg/dL High 65-99 [facility] Comment on above: Result Comment: Fasting reference interval For someone without known diabetes, a glucose value >125 mg/dL indicates that they may have diabetes and this should be confirmed with a follow-up test. Performed By: #### 6 399, 7600, 13095, 6517, 496 #### [facility] [address], [address] [place] [address] Broach Trouble Shooter: Channing Quiroga MD Potassium [Moles/Vol] 4.9 mmol/L Normal 3.5-5.[address] [facility] [address] [facility] [address] [facility] Comment on above: Performed By: #### 6 399, 7600, 29117, 6517, 496 #### [facility] [place] [address] Broach Trouble Shooter: Channing Quiroga MD Protein [Mass/Vol] 6.9 g/dL Normal 6.1-8.1 [facility] Comment on above: Performed By: #### 6 399, 7600, 13981, 6517, 496 #### [facility] [place] [address] Broach Trouble Shooter: Channing Quiroga MD Sodium [Moles/Vol] 138 mmol/L Normal 135-146 [facility] Comment on above: Performed By: #### 6 399, 7600, 84521, 6517, 496 #### [facility] [place] [address] Broach Trouble Shooter: Channing Quiroga MD Urea nitrogen [Mass/Vol] 23 mg/dL Normal 7-25 [facility] Comment on above: Performed By: #### 6 399, 7600, 38074, 6517, 496 #### [facility] [place] [address] Broach Trouble Shooter: Channing Quiroga MD Urea nitrogen/Creatinine [Mass ratio] 21 mg/mg Normal 6-22 [facility] Comment on above: Performed By: #### 6 399, 7600, 53607, 6517, 496 #### [facility] [place] [address] Broach Trouble Shooter: Channing Quiroga MD HEMOGLOBIN A1con 12-19-2023 HEMOGLOBIN A1c 7.7 % of total Hgb High <5.7 [facility] Comment on above: Result Comment: For someone without known diabetes, a hemoglobin A1c value of 6.5% or greater indicates that they may have diabetes and this should be confirmed with a follow-up test. For someone with known diabetes, a value <7% indicates that their diabetes is well controlled and a value greater than or equal to 7% indicates suboptimal control. A1c targets should be individualized based on duration of diabetes, age, comorbid conditions, and other considerations. Currently, no consensus exists regarding use of hemoglobin A1c for diagnosis of diabetes for children. This test was performed on the [employer] frances[employer] c503 platform. Effective 05/12/23, a change in test platforms from the [employer] to the [employer] c503 may have shifted HbA1c results compared to historical results. Based on laboratory validation testing conducted at [facility], the Lucia platform relative to the Pope platform had an average increase in HbA1c value of < or = 0.3%. This difference is within accepted variability established by the National Glycohemoglobin Standardization Program. Note that not all individuals will have had a shift in their results and direct comparisons between historical and current results for testing conducted on different platforms is not recommended. Performed By: #### 6 399, 7600, 06568, 6517, 496 #### [facility] [place] [address] Broach Trouble Shooter: Channing Quiroga MD LIPID PANEL, [facility] 11-24 Cholesterol [Mass/Vol] 247 mg/dL High <200 [facility] Comment on above: Performed By: #### 6 399, 7600, 99773, 6517, 496 #### [facility] [place] [address] Broach Trouble Shooter: Channing Quiroga MD Cholesterol in HDL [Mass/Vol] 56 mg/dL Normal > OR = 50 [facility] Comment on above: Performed By: #### 6 399, 7600, 03368, 6517, 496 #### [facility] [place] [address] Broach Trouble Shooter: Channing Quiroga MD Cholesterol in LDL [Mass/Vol] 159 mg/dL High [facility] Comment on above: Result Comment: Refe rence range: <100 Desirable range <100 mg/dL for primary prevention; <70 mg/dL for patients with CHD or diabetic patients with > or = 2 CHD risk factors. LDL-C is now calculated using the Misael calculation, which is a validated novel method providing better accuracy than the Friedewald equation in the estimation of LDL-C. Trent SHER et al. ELIZ. 2013;310(19): 4095-2109 (http://education.[employer]/faq/DWS876) Performed By: #### 6 399, 7600, 73978, 6517, 496 #### [facility] [address], [address] [place] [address] Broach Trouble Shooter: Channing Quiroga MD Cholesterol.total/Analy sterol in HDL [Mass ratio] 4.4 {ratio} Normal <5.0 [facility] Comment on above: Performed By: #### 6 399, 7600, 24233, 6517, 496 #### [facility] [address], [address] [place] [address] Broach Trouble Shooter: Channing Quiroga MD NON HDL CHOLESTEROL 191 mg/dL (calc) High <130 [facility] Comment on above: Result Comment: For patients with diabetes plus 1 major ASCVD risk factor, treating to a non-HDL-C goal of <100 mg/dL (LDL-C of <70 mg/dL) is considered a therapeutic option. Performed By: #### 6 399, 7600, 94655, 6517, 496 #### [facility] [place] [address] [employer]ach Trouble Shooter: Channing Quiroga MD Triglyceride [Mass/Vol] 170 mg/dL High <150 [facility] Comment on above: Performed By: #### 6 399, 7600, 67463, 6517, 496 #### [facility] [address], [address] [place] [address] Broach Trouble Shooter: Channing Quiroga MD [facility] CHELSEA MOODY ([id number]) 1940 F Date Time Provider Department 11/21/23 10:00 AM JOY GUDINO During your visit today, we recorded the following information about you: Kaylin Dunham LPN 11/21/2023 9:51 AM Signed Patient presented for suture removal of lesion of upper right side of lip. Patient has no complaints. The wound is cleansed, sutures removed, and dermabond placed. Assessed wound no redness, swelling, tenderness, foul odor present. Advised patient to not touch glue for at least 10 minutes, allow dermabond to stay in place and do not pick off. Patient verbalized understanding. Patient tolerated well. Pathology reviewed and advised by Joy Gudino NP. Kaylin Dunham LPN November 21, 2023 9:50 AM Joy Gudino APRN.ASSOCIATE PROFESSOR OF ENGINEERING 11/21/2023 10:02 AM Signed FOLLOW UP VISIT NAME: Chelsea Moody [facility] NO.: [id number] DATE OF SERVICE: 11/21/2023 : 1940 REFERRING PHYSICIAN: Kurt Lieberman MD Chelsea is a patient I am following for Dr. Acosta after he removed a skin lesion on 11/14/2023 on the face above her upper lip on the right side. Pathology returned as FINAL DIAGNOSIS A. Skin, right upper lip, excision: - Invasive well-differentiated squamous cell carcinoma, see comment. Diagnosis Comment A. The lesion appears narrowly excised within the plans of sections available for examination. VITALS: There were no vitals taken for this visit. On examination, the sutures were removed by nursing and Dermabond was placed. The skin is healing nicely, the incision is approximated, there is no redness, swelling or drainage. Assessment IMPRESSION: Squamous cell carcinoma of face PLAN: If the patient notes any problems or signs of infection or reoccurrence of the lesion, the patient should contact me immediately. Diagnoses: (C44.320) Squamous cell carcinoma of face (primary encounter diagnosis) (K13.0) Lip lesion Return to Clinic: The patient is instructed to follow-up with Dr. Acosta in 6 months or sooner if needed. __ Joy Gudino APRN.ASSOCIATE PROFESSOR OF ENGINEERING Allergies As of Date: 11/21/2023 (Not on File) Date Reviewed: 11/14/2023 Reviewed by: Gil Acosta MD - Fully Assessed Primary Visit Diagnosis:Squamous cell carcinoma of face [C44.320] Other Visit Diagnosis:Lip lesion [K13.0] Prescriptions as of 11/21/2023 - ONETOUCH VERIO TEST STRIPS test strip two times a day. TEST BLOOD SUGAR - glimepiride (AMARYL) 2 mg tablet take 1 (one) tablet by mouth two times per day - metoprolol succinate ER (TOPROL XL) 25 mg 24 hr tablet Take 1 tablet by mouth every afternoon. - omeprazole (PRILOSEC) 40 mg capsule Take 1 capsule by mouth every afternoon. - pioglitazone (ACTOS) 15 mg tablet Take 1 tablet by mouth every afternoon. Problem List As Of Date: 11/21/2023 (None) Visit Notes: >> Kaylin Dunham LPN FriNov 21, 2023 9:46 AM Status: Signed Patient presented for suture removal of lesion of upper right side of lip. Patient has no complaints. The wound is cleansed, sutures removed, and dermabond placed. Assessed wound no redness, swelling, tenderness, foul odor present. Advised patient to not touch glue for at least 10 minutes, allow dermabond to stay in place and do not pick off. Patient verbalized understanding. Patient tolerated well. Pathology reviewed and advised by Joy Gudino NP. Kaylin Dunham LPN November 21, 2023 9:50 AM Medications Discontinued During This Encounter Prescriptions - nystatin (MYCOSTATIN) 100,000 unit/mL suspension (Discontinued) Reported on 11/14/2023 Encounter Status:Closed by JOY GUDINO on 11/21/[address] [facility] SURGICAL PATHOLOGYOrdered By : Rylee Alvarez on 11-19-2023 Case Report Surgical Pathology Report Case: [id number] Authorizing Provider: Gil Acosta MD Collected: 11/14/2023 04:05 PM Ordering Location: General Surgery Received: 11/14/2023 04:28 PM Pathologist: Rylee Alvarez MD Specimen: Skin Lesion/Soft Tissue Ulcer (Specify site in comment), rt upper lip [facility] Work Phone: Clinical History f0qtlCMfDHCpv0hyFPZw bG ScTgAmVgOgEsNtSbu5STBj pgZ0Pgm6HBAoFJvxxN7uIC WzDBrbB3nqdrWvyPFrDUKl LMs3cT7vuBuudT8hCqSrAc XgUDOhSRPdm88tj1Leqysi yPXmmPBlAKNyxRbtC7MfW6 m4LLTdwYPgXTzdhHjwHCUk fQ== [facility] Work Phone: Diagnosis Comment d4rnaSXtWSJalITjJXHx NV pityHkGEIqtNJqM8Ehcznj WFntNK5tPS0khNmyzHThwN PgWQNlFiJko5prm748tBFy u8dbXPJWnqlsdOp7rXmgV8 9la3T7OoxsX72tvMKgUGZ7 GYThNBVmsENlGTOtJQC8ZU JgiMSfP0jhLIDfIE4okgfz TUoxMKrfKFMaoGS3XAIzpQ VlE7XfVGJeSShsVLPoelh2 WbKqIv9bsVEnnVydGCnfRC JgWFFiUHxnWFJwXlPqBL4s IJhrUWzxj3ptjiTaoMMvGG LtIS8mmrBct2g4RLH0D6mz OXUhu5p7dEbsJPIqBAMlyJ MzjzPpFrKvSFM4xP9qgtZe unXvuWQrmTXsDu5sZGA8QM 3ktjN6uO4xLqNbqJRphF== [employer] Work Phone: FINAL DIAGNOSIS n6ayjNIbDNQfwFTjWTMu NV tlttSxJQCaeZDiU8Ueleix HAnxMF4kIH9bkCsofJVvaD HsQNZlMhYhx5ukr045lRSo d6gsPIUEdkslsOi9vNvkA2 3pp2M2SbfcC20gmOXiWQG4 LOOoEYWpdJApIVAoPQT6HH EhqCAvO2ttLWBtNM0rqaoc EVauTCguHHFrjZX4XJWsjP MeI9WpSDJjDQpgXNQauwj9 TaDwRq6fwKEqtWzaCLdkMH EyZEPpBFdgLLQuFtMoSZ6b L7rqiskojeccvVLeoOIqHJ CawTthIVPusNZvr1jzgjvb oAEzWB5fIT86RWMmeiBkr1 UbmM5scPMlCTOpxvOoAXVw PZSifYTyjJ15dpSfTJzsOV UhaxJqyt7rTBair3NwCBRc bF5mgsQjJUPyht7= [facility] Work Phone: Gross Description q8tklZXdFMScbLElDBRe NV tuhzZnQQMlyNMoN9Vavbyz TIncMH8cXJ7ibLelyTNtiY GeXZWmSfKgn1niv409zPWz d9tdXYSEgclwrYe0iWjeS6 6kq0Q5EyxjM15mwAUrOEF2 WPPdESOqaMTuDOZdTIA5OU TnbEGzL2kbDPVzPK1ebgva VQiaIGbnWGGzyGG9RJHtoP GfM7XeTZPpFNjiDVYhtla0 FfPtEr5qjZWjgXebZIdaRw mjbOfzg6IyuHDzBCumASHj WYIcASnkvcbpYJv1MBSvTE nioEShGF2ulZjcRhphmDqp n7DaaOJfPGeuOFNiMYEhBA kdDRGdQ9KOSIHxFvNdLRDr ZFoyNTs9XZz0WK5VJkXbYW P0XHQ9Ebg3LDVoDDo0RJhq RZ3NEZCqZMOjOqSmHxutQX A8WRT4ZIrkcDKbPGlve6Vu AnZoHGUvYLcsuqF9OJZmjo FdxYbpcP0mTzEeSjLRPaYO g2xgDHrlc6kwjn9Xm2W0EX Loi7T4ZHDZiDJcggNwY1Al G8keqKLfcWTnSJbaTDQqsA 1lbnQpXHBhclxwYXJkXHNi GsXpTFEnJ0pxYlMaTXLlHD luXGZzMjAgTGFiZWxlZDog GiIIsClaoEG4xBPxzeNwhA ZfhGLhxE9kV2GsS0BbWrtk YXJccGFyZCBSZWNlaXZlZD fwAm3vnTFdeK8fzWHdFR91 rDQdhhAlWdE5cRGygZWmAl XkA35nwgQsVkAjOQHgshBW eHDxtO8yecVfyS5ynwHsk3 5zOiAwLjkgeCAwLjggeCAw WyxvT40wcTKkIG19J55gIN kcQUVcu3OqwLvee0rpcFOa oCBsZJBrdb0hzhGgz6XqHE 52w9cuKOtyw1cjdkK7pEHy IGNlbnRyYWwgdWxjZXJhdG unkyRrKZKqiFWdytzdYH39 RLxmKN72PQvnQT89QYHmPb TVbQbuCXoyl9vjbaZgJbC3 jbX1kUQfuJ1hSGLgrINnX8 iyVoEfUKBjY2tsVUhvx2Kh IGJsdWUpXHBhciBDYXNzZX F7CPERt7JzNvAEz3IcvUf1 SQY1Rw6zfOEhIYIhXUS9aZ 3jPOLbmB0pL1Cmg4G5zVYa QTEuXHBhclxwYXJccGFyIE AZWRz2itCmTyDvKCHnWsXy QPI9FovxXM6zaAHtTFMjuh PYxi3fbtBkoFEwpP3vtVpi jlGoTNMna1HvTYSqCGNpP3 qvcdPkHE8yGQIqyR0cHfwy OTUwMCBFdWNsaWQgQXZlbn WhOFTZmYH3XEzshcHiYW1P MRP2LSs8SFEJDFOmIFJ9IN K7BRTbNWGgbVRsFJDhZtYq UDCkU7aqOZDov8rudOpcg1 UrxTFtPO86MBRenHWyLQE4 MY5mwJyjMIM0 [facility] Work Phone: Performing Lab d7oydEYwSQMllXLdVuUv RI SsWKBmo4izLHQmpLAuZbXm MzNcZnRuYmpcdWMxXGRlZm Sig9eui928uRBpo9egDJPf TfI9sEKhOWGwbHApK260WB XaENpky9pzq7YcCUYpyPVf f8T8IKIZyburmWv6eLbrT3 9mp7B7ZiwjJ6xhLQBfVXTr E5VbYC4lSWEmJph4SQG6DM P3ENVuXOJrE8KmVG3oDWMo oJZbNYc2k1wvzHmhASBrPX W6y8rhMLzchfIlIS2lsy6a qIz5f3bflnEmPPXaUCUyxW OWKOUeR9GgiAgcJt1aeGo8 vCyvZjwpWBJ4Czu9IB2exa 19fbg6iWxoPRAiusahYhE5 GYvlUNKfkkwcZCv8QLfnQA GujZU1OPUzdRAcI6GrAArx RQ4infp4YHD7MDipSFOrPa H1SEFueYXkOBFbiYbuPXhz c730HVB3FpNmEP9hE0Qfh6 F3cR9hsPWjSTGyiSAaMwSd BKNdnn3bfYNqXOalg4XdEA F2fwZ5pMTwaFTzAAPlHT10 Zhllp0ZwRvnln3BqV66fmA T5TZokh2liXW8jIjG8htPy HXktg3gmqQ3vPqH5KVxyYN 2pZZ3oXKJqmU8ccxeiKNJv YnJkcmhlYWRccGdicmRyZm 2gwByoRUD7LGdfH2egpB9s IpE0ANxqT8hcpB6dIBj7YG fexOB8VSJliW3pJN7wmqfn i4qcKWeuLDmgHLFncpS1yr FvWSLwgOZvD8AmiD7gWJIm CE2foreha7gyMHE7NJgcNK BfAQC8DgYnUSKda1Mvtai6 EmVtj2DvyVHwRRdrN15lf4 62DBFwdzEhY8tohDWdhddp pKOftwdxTZcpmuL7TOXxED BsYWluXGYxXGZzMjBcbGFu ZzEwMzNcaGljaFxmMVxkYm PfYIEeZHfbP0qyQwPaAhJo KTBBvXWnsm8wjIesVKotbN TdhLFfhIP0jU5hCQTwjnXc zn7lWKMddHCCdQC9DQvhva QjO2sowcbrGSH4JYNaZUT2 O0ncIVEMlaWxRUWdYPBptD XqBAKOERU7VCF5CQEpUICH LTXxZAG8TCR8VOHxMCKghN FyXHBhclxwYXJkXHBsYWlu DRDuMMHfXoZbgMrnkV9iFv OfGgUpHKmyUV3jSTRrH9lm qEDvIDUpQPMxE7deTlBnpG 9jaFxmMVxjZjJcZnMyMFxs eSHukDKKGMHjmrG0x0D6TV xwbGFpblxmMVxmczIwXGxh samlGRQkYIukO5rpEeTnGV WsgHlxNIvxm1OxTQAvIOAs MxLpOBeySKR1l0Q4YNocpB LzjoGDRkAUTA1ouBLeowju EF0BMciwdWSlxhrhKRaewq LhMQgkestaFAWeFZiwT4mh YlJfWYAsrYbkPMlzp1ZeLD YxXGZzMjJccGFyfQ== [facility] Work Phone: [facility] Work Phone: CNOVon 11-14-2023 CNOV Office Visit (GENSWS ) CHELSEA MOODY ([id number]) 1940 F Date Time Provider Department 11/14/23 3:00 PM GIL ACOSTA GENSWS During your visit today, we recorded the following information about you: Blood pressure 150/82 Olive Damian, RN 11/14/2023 3:30 PM Signed REVIEW OF SYSTEMS: General: The patient denies fatigue, NOTES weight loss, NOTES weight gain, denies feeling hot, and denies feelings of cold. Eyes: The patient denies glaucoma, NOTES eye injury/surgery, wears glasses or contacts. Ear/Nose/Throat: The patient denies allergies, denies hayfever, denies ear infections, and denies bloody noses. Cardiovascular: The patient denies chest pain, denies heart disease, NOTES high blood pressure,denies cardiac stent, denies prior heart attack, denies irregular heart beat, NOTES high cholesterol, denies poor circulation, denies heart failure, other cardiac issues, denies claudication, denies cold feet, denies peripheral arterial stent. Respiratory: The patient denies tuberculosis, denies pneumonia, denies frequent cough, denies pulmonary embolism, NOTES shortness of breath, and denies coughing up blood. Gastrointestinal: The patient denies difficulty swallowing, NOTES acid reflux, denies ulcers, denies vomiting, denies jaundice/hepatitis, denies gallbladder problems, denies black or tarry stools, denies hemorrhoids, denies bleeding from rectum, denies diverticulitis, denies constipation, denies diarrhea, denies loss of stool control, and denies hernias. Kidney/Bladder: The patient denies kidney stones, denies urine infections, and denies bloody urine. Skin: The patient denies a history of skin cancer, denies bleeding/changing moles, and denies a history of skin rash. Neurologic: The patient denies a history of epilepsy/convulsions, denies headaches, denies head/spinal injuries, and denies stroke/TIA. Psychiatric: The patient denies psychiatric medications, denies depression, and denies voices, denies substance abuse. Endocrine: The patient denies thyroid disorders, NOTES diabetes, and denies hormonal problems. Hematologic: The patient denies a history of bruising, denies bleeding, and denies anemia, denies blood clots. Infections: The patient denies a history of measles and mumps, denies rheumatic fever, and denies sexually transmitted diseases. Musculoskeletal: The patient denies back pain/injury, denies back problems, denies sciatica, denies knee/foot trouble, denies arthritis, or denies gout. When was patient's last Mammogram screening? Last Colonoscopy: ORESTES Valenzuela Billie, RN 11/14/2023 4:40 PM Signed UNIVERSAL PROTOCOL / SAFETY CHECKLIST Procedure to be Performed: Excision of right upper lip/face skin lesion Sign In: A Moment of CARE was completed. Personnel directly involved with the procedure wore the appropriate PPE (Personal Protective Equipment). No special equipment needed. Patient/Surrogate Stated/Verified: PATIENT VERIFIED(optional for EMERGENT procedures): Patient name, Date of , Relevant allergies, and The intended procedure Time Out Communication: Intended patient and procedure match the source documents. Consent documented and matches the intended procedure. No relevant labs, photos, and/or imaging studies were applicable for review. Correct side/site marked and visible. Medications required for procedure verified. No fire risk assessment and interventions applicable. No implant(s) inserted. Sign Out: SIGN OUT (optional for EMERGENT procedures): All specimen containers correctly labeled. All instruments, equipment, possible retained foreign bodies accounted for. Post-procedure follow-up management communicated and Plan of Care Visit completed when applicable. ORESTES Valenzuela Billie, RN 11/14/2023 4:40 PM Addendum The following instructions are important for you related to your office visit today with the [facility] General Surgeons. Instructions After SKIN EXCISION-SUTURES You can remove the dressing in two days. If the dressing becomes soaked or had significant drainage, the dressing should be changed. If there is minor bleeding from this skin edge, you should hold pressure on the incision until the bleeding stops. If there is continued bleeding, you should contact our office immediately. You do not need to leave a dressing on the wound after two days. If the wound shows signs of redness, inflammation, or purulent drainage, you should contact our office immediately. You should keep the wound dry for the first two days. After that time, you may wash the wound with gentle soap and water. The wound should not be immersed in a pool, bathtub, or even hot tub. We prefer to check the incision and remove the stitches in our office when ready. Please make an appointment to return t (more content not included)... Normal [facility] SURGICAL PATHOLOGYon 024 CASE REPORT Normal [facility] Comment on above: Order Comment: Speci pedro Type: TISSUE SPECIMENOrdering Facility: [facility] Address: [address] [place] [address] Result Comment: Surg [facility] Pathology Report Case: [id number] Authorizing Provider: Gil Acosta MD Collected: 11/14/2023 04:05 PM Ordering Location: General Surgery Received: 11/14/2023 04:28 PM Pathologist: Rylee Alvarez MD Specimen: Skin Lesion/Soft Tissue Ulcer (Specify site in comment), rt upper lip Performed By: #### S ####[facility] LABCLIA [id number] [place] [address] [place] CLINICAL HISTORY lesion of right uppe r lip[right upper lip Normal [facility] Comment on above: Order Comment: Huseyin vasquez Type: TISSUE SPECIMENOrdering Facility: [facility] Address: [address] [place] [address] Performed By: #### S ####[facility] LABCLIA [id number] [place] [address] [place] DIAGNOSIS COMMENT A. The lesion appear s narrowly excised within the plans of sections available for examination. Normal [facility] Comment on above: Order Comment: Speci men Type: TISSUE SPECIMENOrdering Facility: [facility] Address: [address] [place] [address] Performed By: #### S ####[facility] LABCLIA [id number] [address] STATES [place] FINAL DIAGNOSIS Normal [facility] Comment on above: Order Comment: Speci men Type: TISSUE SPECIMENOrdering Facility: [facility] Address: [address] [place] [address] Result Comment: Ravinder. Abigail garcia, right upper lip, excision: - Invasive well-differentiated squamous cell carcinoma, see comment. Performed By: #### S ####[facility] LABCLIA [id number] [address] STATES OF [facility] FINAL PERFORMING LAB Normal [facility] Comment on above: Order Comment: Speci men Type: TISSUE SPECIMENOrdering Facility: [facility] Address: [address] [place] [address] Result Comment: Diag nostic interpretation performed at [facility], [address] [place] [address] CLIA# [id number] Accounting Intern: Gume Aceves M.D. Performed By: #### S ####[facility] LABCLIA [id number] [address] [place] GROSS DESCRIPTION Normal [facility] Comment on above: Order Comment: Speci men Type: TISSUE SPECIMENOrdering Facility: [facility] Address: [address] [place] [address] Result Comment: A. S kin Lesion/Soft Tissue Ulcer (Specify site in comment) Labeled: Right upper lip lesion/ulcer Received: Formalin Number of tissue fragments: 1 Specimen dimensions: 0.9 x 0.8 x 0.7 cm Mucosa: Present; white-franco firm raised ovoid lesion with central ulceration measuring 0.7 x 0.5 x 0.4 cm. This lesion abuts the inked margin. (Margin inked blue) Cassette Code: Totally submitted sectioned in cassette A1. CG November 17, 2023 10:27 AM Gross examination performed at [facility], [facility] [place] [address] CLIA# [id number] Performed By: #### S ####[facility] LABCLIA [id number] [place] [address] [place] .GFRon 06-18-2019 GFR 63 ml/min/1.73sqm Normal [facility] ([place]) Comment on above: Result Comment: GFR Population mean for , Non- Americans Ages 20-29 = 116 mL/min/1.73 sq.m. Ages 30-39 = 107 mL/min/1.73 sq.m. Ages 40-49 = 99 mL/min/1.73 sq.m. Ages 50-59 = 93 mL/min/1.73 sq.m. Ages 60-69 = 85 mL/min/1.73 sq.m. Ages 70+ = 75 mL/min/1.73 sq.m. Chronic Kidney Disease: Less than 60 mL/min/1.73 square meters End Stage Renal Disease: Less than 15 mL/min/1.73 square meters Performed By: #### A 1C, LIPID, CMP, GFR #### [place] [address] GFR Non- 52 ml/min/1.73sqm Normal [facility] ([place]) Comment on above: Result Comment: GFR Population mean for , Non- Americans Ages 20-29 = 116 mL/min/1.73 sq.m. Ages 30-39 = 107 mL/min/1.73 sq.m. Ages 40-49 = 99 mL/min/1.73 sq.m. Ages 50-59 = 93 mL/min/1.73 sq.m. Ages 60-69 = 85 mL/min/1.73 sq.m. Ages 70+ = 75 mL/min/1.73 sq.m. Chronic Kidney Disease: Less than 60 mL/min/1.73 square meters End Stage Renal Disease: Less than 15 mL/min/1.73 square meters Performed By: #### A 1C, LIPID, CMP, GFR #### [address] [address] A1Con 06-18-2019 HbA1c (Bld) [Mass fraction] 7.0 % High 4.5-6.2 [facility] ([place]) Comment on above: Performed By: #### A 1C, LIPID, CMP, GFR #### [address] [address] CMPon 06-18-2019 Albumin [Mass/Vol] 3.8 G/dL Normal 3.4-4.8 [facility] ([place]) Comment on above: Performed By: #### A 1C, LIPID, CMP, GFR #### [address] [address] Albumin/Globulin [Mass ratio] 1.3 {ratio} Normal 1.1-2.5 [facility] ([place]) Comment on above: Performed By: #### A 1C, LIPID, CMP, GFR #### [address] [address] ALP [Catalytic activity/Vol] 76 U/L Normal 40-135 [facility] ([place]) Comment on above: Performed By: #### A 1C, LIPID, CMP, GFR #### [address] [address] ALT [Catalytic activity/Vol] 77 U/L High 10-35 [facility] ([place]) Comment on above: Performed By: #### A 1C, LIPID, CMP, GFR #### [address] [address] AST [Catalytic activity/Vol] 31 U/L Normal 10-40 [facility] ([place]) Comment on above: Performed By: #### A 1C, LIPID, CMP, GFR #### [address] [address] Bili Total 0.2 mg/dL Normal 0.2-1.0 [facility] ([place]) Comment on above: Performed By: #### A 1C, LIPID, CMP, GFR #### [address] [address] Calcium [Mass/Vol] 9.4 mg/dL Normal 8.4-10.2 [facility] ([place]) Comment on above: Performed By: #### A 1C, LIPID, CMP, GFR #### [address] [address] Chloride [Moles/Vol] 104 mmol/L Normal 98-107 [facility] ([place]) Comment on above: Performed By: #### A 1C, LIPID, CMP, GFR #### [address] [address] CO2 [Moles/Vol] 28 mmol/L Normal 23-31 [facility] ([place]) Comment on above: Performed By: #### A 1C, LIPID, CMP, GFR #### [address] [address] Creatinine [Mass/Vol] 1.02 mg/dL Normal 0.55-1.02 [facility] ([place]) Comment on above: Performed By: #### A 1C, LIPID, CMP, GFR #### [address] [address] Electrolyte Balance 7.0 mEq/L Normal [facility] ([place]) Comment on above: Performed By: #### A 1C, LIPID, CMP, GFR #### [address] [address] Globulin (S) [Mass/Vol] 3.0 G/dL Normal [facility] ([place]) Comment on above: Performed By: #### A 1C, LIPID, CMP, GFR #### [address] [address] Glucose [Mass/Vol] 113 mg/dL High 83-110 [facility] ([place]) Comment on above: Performed By: #### A 1C, LIPID, CMP, GFR #### [address] [address] Potassium [Moles/Vol] 5.9 mmol/L High 3.5-5.1 [facility] ([place]) Comment on above: Performed By: #### A 1C, LIPID, CMP, GFR #### [address] [address] Protein [Mass/Vol] 6.8 G/dL Normal 6.4-8.2 [facility] ([place]) Comment on above: Performed By: #### A 1C, LIPID, CMP, GFR #### [address] [address] Sodium [Moles/Vol] 139 mmol/L Normal 136-145 [facility] ([place]) Comment on above: Performed By: #### A 1C, LIPID, CMP, GFR #### [address] [address] Urea nitrogen [Mass/Vol] 20 mg/dL High 7-18 [facility] ([place]) Comment on above: Performed By: #### A 1C, LIPID, CMP, GFR #### [address] [address] Urea nitrogen/Creatinine [Mass ratio] 20 ratio Normal 7-27 [facility] ([place]) Comment on above: Performed By: #### A 1C, LIPID, CMP, GFR #### [address] [address] LIPIDon 06-18-2019 Cholesterol [Mass/Vol] 196 mg/dL Normal 0-200 [facility] ([place]) Comment on above: Result Comment: Chol esterol Reference Interval: Less than 200 Desirable 200-239 Borderline high risk 240 and above High risk Performed By: #### A 1C, LIPID, CMP, GFR #### [address] [address] Cholesterol in HDL [Mass/Vol] 42 mg/dL Normal 40-60 [facility] ([place]) Comment on above: Performed By: #### A 1C, LIPID, CMP, GFR #### [address] [address] Cholesterol in LDL [Mass/Vol] 125 mg/dL Normal 0-130 [facility] ([place]) Comment on above: Performed By: #### A 1C, LIPID, CMP, GFR #### [address] [address] Triglyceride [Mass/Vol] 145 mg/dL Normal 0-150 [facility] ([place]) Comment on above: Result Comment: Trig lyceride Reference Interval: Less than 150 Normal 150-199 Borderline high risk 200-499 High risk 500 or higher Very high risk Performed By: #### A 1C, LIPID, CMP, GFR #### [place] [id number] [place] [address] Vital Signs Date Time Vital Sign Value Performing Clinician Facility 10-24-2024 09:30-0400 Body temperature 97.6 [degF] Dr. Kurt Lieberman MD Work Phone: [facility] 10-24-2024 09:30-0400 Diastolic blood pressure 48 mm[Hg] Dr. Kurt Lieberman MD Work Phone: [facility] 10-24-2024 09:30-0400 Heart rate 84 /min Dr. Kurt Lieberman MD Work Phone: [facility] 10-24-2024 09:30-0400 Respiratory rate 17 /min Dr. Kurt Lieberman MD Work Phone: [facility] 10-24-2024 09:30-0400 SaO2% (BldA) [Mass fraction] 97 % Dr. Kurt Lieberman MD Work Phone: [facility] 10-24-2024 09:30-0400 Systolic blood pressure 168 mm[Hg] Dr. Kurt Lieberman MD Work Phone: [facility] 10-23-2024 10:38-0400 Body height 142.[address] Kurt Lieberman MD Work Phone: [facility] 10-23-2024 10:38-0400 Body weight 76.[address] Kurt Lieberman MD Work Phone: [facility] 10-22-2024 20:11-0400 Body mass index (BMI) [Ratio] 37.8 kg/m2 Dr. Kurt Lieberman MD Work Phone: [facility] 10-22-2024 19:15-0400 Body temperature 96.5 [degF] Dr. Kurt Lieberman MD Work Phone: [facility] 10-22-2024 19:15-0400 Diastolic blood pressure 52 mm[Hg] Dr. Kurt Lieberman MD Work Phone: [facility] 10-22-2024 19:15-0400 Heart rate 80 /min Dr. Kurt Lieberman MD Work Phone: [facility] 10-22-2024 19:15-0400 Respiratory rate 16 /min Dr. Kurt Lieberman MD Work Phone: [facility] 10-22-2024 19:15-0400 SaO2% (BldA) [Mass fraction] 97 % Dr. Kurt Lieberman MD Work Phone: [facility] 10-22-2024 19:15-0400 Systolic blood pressure 153 mm[Hg] Dr. Kurt Lieberman MD Work Phone: [facility] 10-22-2024 17:23-0400 Body mass index (BMI) [Ratio] 38.1 kg/m2 Dr. Kurt Lieberman MD Work Phone: [facility] 10-22-2024 17:23-0400 Body weight 77.[address] Kurt Lieberman MD Work Phone: [facility] 10-22-2024 17:19-0400 Body height 142.[address] Kurt Lieberman MD Work Phone: [facility] 10-22-2024 13:04-0400 Body temperature 97.8 [degF] Dr. Kurt Lieberman MD Work Phone: [facility] 10-22-2024 13:04-0400 Body weight 75.[address] Kurt Lieberman MD Work Phone: [facility] 10-22-2024 13:04-0400 Diastolic blood pressure 64 mm[Hg] Dr. Kurt Lieberman MD Work Phone: [facility] 10-22-2024 13:04-0400 Heart rate 86 /min Dr. Kurt Lieberman MD Work Phone: [facility] 10-22-2024 13:04-0400 Respiratory rate 16 /min Dr. Kurt Lieberman MD Work Phone: [facility] 10-22-2024 13:04-0400 SaO2% (BldA) [Mass fraction] 97 % Dr. Kurt Lieberman MD Work Phone: [facility] 10-22-2024 13:04-0400 Systolic blood pressure 144 mm[Hg] Dr. Kurt Lieberman MD Work Phone: [facility] 10-11-2024 14:32-0400 Body weight 76.39 kg Angela High MD Work Phone: [facility] 10-11-2024 14:32-0400 Diastolic blood pressure 70 mm[Hg] Angela High MD Work Phone: [facility] 10-11-2024 14:32-0400 Heart rate 83 /min Angela High MD Work Phone: [facility] 10-11-2024 14:32-0400 Respiratory rate 16 /min Angela High MD Work Phone: [facility] 10-11-2024 14:32-0400 SaO2% (BldA) [Mass fraction] 98 % Angela High MD Work Phone: [facility] 10-11-2024 14:32-0400 Systolic blood pressure 156 mm[Hg] Angela Hihg MD Work Phone: [facility] 10-06-2024 14:37-0400 Body temperature 97.6 [degF] Dr. Kurt Lieberman MD Work Phone: [facility] 10-06-2024 14:37-0400 Heart rate 57 /min Dr. Kurt Lieberman MD Work Phone: [facility] 10-06-2024 14:37-0400 Respiratory rate 18 /min Dr. Kurt Lieberman MD Work Phone: [facility] 10-06-2024 14:37-0400 SaO2% (BldA) [Mass fraction] 95 % Dr. Kurt Lieberman MD Work Phone: [facility] 10-06-2024 14:00-0400 Diastolic blood pressure 49 mm[Hg] Dr. Kurt Lieberman MD Work Phone: [facility] 10-06-2024 14:00-0400 Systolic blood pressure 142 mm[Hg] Dr. Kurt Lieberman MD Work Phone: [facility] 10-06-2024 04:30-0400 Body mass index (BMI) [Ratio] 787629.8 kg/m2 Dr. Kurt Lieberman MD Work Phone: [facility] 10-06-2024 04:30-0400 Body weight 79.[address] Kurt Lieberman MD Work Phone: [facility] 10-05-2024 12:00-0400 Body height 1.[address] Kurt Lieberman MD Work Phone: [facility] 10-05-2024 12:00-0400 Inhaled oxygen flow rate 2 L/min Dr. Kurt Lieberman MD Work Phone: [facility] 09-17-2024 11:18-0400 Body temperature 97.8 [degF] Dr. Kurt Lieberman MD Work Phone: [facility] 09-17-2024 11:18-0400 Body weight 78.[address] Kurt Lieberman MD Work Phone: [facility] 09-17-2024 11:18-0400 Diastolic blood pressure 70 mm[Hg] Dr. Kurt Lieberman MD Work Phone: [facility] 09-17-2024 11:18-0400 Heart rate 76 /min Dr. Kurt Lieberman MD Work Phone: [facility] 09-17-2024 11:18-0400 Respiratory rate 17 /min Dr. Kurt Lieberman MD Work Phone: [facility] 09-17-2024 11:18-0400 SaO2% (BldA) [Mass fraction] 97 % Dr. Kurt Lieberman MD Work Phone: [facility] 09-17-2024 11:18-0400 Systolic blood pressure 140 mm[Hg] Dr. Kurt Lieberman MD Work Phone: [facility] 09-10-2024 12:25-0400 Diastolic blood pressure 69 mm[Hg] Angela High MD Work Phone: [facility] 09-10-2024 12:25-0400 Heart rate 98 /min Angela High MD Work Phone: [facility] 09-10-2024 12:25-0400 Systolic blood pressure 138 mm[Hg] Angela High MD Work Phone: [facility] 09-10-2024 11:28-0400 Body weight 78.65 kg Angela High MD Work Phone: [facility] 09-10-2024 11:28-0400 Respiratory rate 18 /min Angela High MD Work Phone: [facility] 09-03-2024 14:00-0400 Body temperature 97.6 [degF] Dr. Kurt Lieberman MD Work Phone: [facility] 09-03-2024 14:00-0400 Diastolic blood pressure 72 mm[Hg] Dr. Kurt Lieberman MD Work Phone: [facility] 09-03-2024 14:00-0400 Heart rate 70 /min Dr. Kurt Lieberman MD Work Phone: [facility] 09-03-2024 14:00-0400 Respiratory rate 16 /min Dr. Kurt Lieberman MD Work Phone: [facility] 09-03-2024 14:00-0400 SaO2% (BldA) [Mass fraction] 98 % Dr. Kurt Lieberman MD Work Phone: [facility] 09-03-2024 14:00-0400 Systolic blood pressure 158 mm[Hg] Dr. Kurt Lieberman MD Work Phone: [facility] 09-03-2024 08:44-0400 Body mass index (BMI) [Ratio] 38.9 kg/m2 Dr. Kurt Lieberman MD Work Phone: [facility] 09-03-2024 03:34-0400 Body weight 80.[address] Kurt Lieberman MD Work Phone: [facility] 09-01-2024 14:52-0400 Body height 142.[address] Kurt Lieberman MD Work Phone: [facility] 09-01-2024 01:11-0400 Inhaled oxygen concentration 21 % Dr. Kurt Lieberman MD Work Phone: [facility] 08-31-2024 23:04-0400 Diastolic blood pressure 50 mm[Hg] Dr. Kurt Lieberman MD Work Phone: [facility] 08-31-2024 23:04-0400 Heart rate 79 /min Dr. Kurt Lieberman MD Work Phone: [facility] 08-31-2024 23:04-0400 Respiratory rate 23 /min Dr. Kurt Lieberman MD Work Phone: [facility] 08-31-2024 23:04-0400 Systolic blood pressure 138 mm[Hg] Dr. Kurt Lieberman MD Work Phone: [facility] 08-31-2024 22:50-0400 Body temperature 97.8 [degF] Dr. Kurt Lieberman MD Work Phone: [facility] 08-31-2024 22:50-0400 SaO2% (BldA) [Mass fraction] 97 % Dr. Kurt Lieberman MD Work Phone: [facility] 08-31-2024 19:32-0400 Body mass index (BMI) [Ratio] 39.4 kg/m2 Dr. Kurt Lieberman MD Work Phone: [facility] 08-31-2024 19:32-0400 Body weight 79.[address] Kurt Lieberman MD Work Phone: [facility] 08-31-2024 19:27-0400 Body height 142.[address] Kurt Lieberman MD Work Phone: [facility] 11-14-2023 15:30-0400 Diastolic blood pressure 82 mm[Hg] Gil Acosta MD Work Phone: [facility] 11-14-2023 15:30-0400 Systolic blood pressure 150 mm[Hg] Gil Acosta MD Work Phone: [facility] Encounters Encounter Date Encounter Type Care Provider Facility Start: 10-27-2024 ambulatory Sonali Haro Facility:[facility] Start: 10-24-2024 Non-[facility] Work Phone: Start: 10-23-2024 Non-patient / [facility] Work Phone: Start: 10-22-2024 Non-patient / Non-visit Dr. Aurea Lockwood MD -[place] [facility] Work Phone: Start: 10-22-2024 ambulatory Familia Burgess ility:[facility] Start: 10-22-2024 End: 10-24-2024 Evaluation and management of inpatient Dr. Axel Lockwood MD -Progressive Care Unit Work Phone: Start: 10-22-2024 End: 10-22-[address] Kurt Lieberman MD Work Phone: [facility] Work Phone: Start: 10-22-2024 End: 10-22-2024 Patient encounter procedure Sonali TOMLINSON -Cat Scan [facility] Work Phone: Start: 10-22-2024 End: 10-22-2024 Patient encounter procedure Sonali TOMLINSON -[facility] Work Phone: Start: 10-22-2024 End: 10-22-[address] Kurt Lieberman MD Work Phone: [facility] Work Phone: Start: 10-22-2024 End: 10-22-2024 ambulatory [facility] Facility:[facility] Start: 10-20-2024 End: 10-22-2024 ambulatory Angela High MD Work Phone: [facility] [place] Comment on above: Omeprazole Start: 10-14-2024 Encounter for other preprocedural examination [facility] Start: 10-11-2024 End: 10-11-2024 Office outpatient visit 25 minutes Angela High MD Work Phone: [facility] [place] Comment on above: Type 2 diabetes rebecca itus without complication, without long- term current use of insulin ([facility]); Essential (primary) hypertension; Tremor, unspecified; Difficulty in walking, not elsewhere classified; Screening for depression; Encounter for screening examination for other mental health and behavioral disorders; 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 Ugo Rogel MD -Intensive Care Unit Work Phone: Start: 10-05-2024 Non-patient / Non-visit Dr. Ugo keller MD -[facility] Start: 10-05-2024 ambulatory Ugo Rogel Facility:[facility] Start: 09-30-2024 End: 10-04-2024 ambulatory Angela High MD Work Phone: [facility] [place] Comment on above: medication Start: 09-28-2024 End: 10-01-2024 ambulatory Angela High MD Work Phone: [facility] Start: 09-17-2024 End: 09-17-2024 Patient encounter procedure Sonali Haro [place] -[facility] Work Phone: Start: 09-17-2024 End: 09-17-2024 ambulatory Sonali Haro Facility:[facility] Start: 09-13-2024 End: 09-13-2024 Telephone encounter Angela High MD Work Phone: [facility] [place] Comment on above: Medication Problem Start: 09-10-2024 End: 09-10-2024 Office outpatient new 45 minutes Angela High MD Work Phone: [facility] [place] Comment on above: Hospital discharge f ollow-up (Primary Dx); Hypertension, unspecified type; Type 2 diabetes mellitus without complication, without long-term current use of insulin (HCC); Class 2 severe obesity with serious comorbidity and body mass index (BMI) of 35.0 to 35.9 in adult, unspecified obesity type (HCC) Start: 09-10-2024 End: 09-10-2024 ambulatory SELF Facility:[facility] Start: 09-03-2024 Non-patient / Non-visit Dr. Dariana [facility] Work Phone: Start: 09-02-2024 Non-patient / Non-visit Dr. Dariana [facility] Work Phone: Start: 09-01-2024 End: 09-03-2024 ambulatory Sonali Haro Facility:[facility] Start: 09-01-2024 End: 09-03-2024 Evaluation and management of inpatient Dr. Dariana Wise DO [facility] Work Phone: Start: 09-01-2024 ambulatory Angel Shepard Facility:[facility] Start: 09-01-2024 Non-patient / Non-visit Dr. John PENN -[facility] Start: 09-01-2024 ambulatory Ugo Rogel Facility:[facility] Start: 09-01-2024 Non-patient / Non-visit Dr. Ugo keller MD -[facility] Start: 08-31-2024 ambulatory Severiano Meyers ty:[facility] Start: 08-31-2024 Evaluation and management of inpatient Dr. Severiano Ibarra DO [facility] Work Phone: Start: 08-31-2024 Non-patient / Non-visit Dr. Mateus Ibarra [facility] Work Phone: Start: 08-31-[address] Ephraim Lieberman MD Work Phone: [facility] Work Phone: Start: 06-01-2024 End: 06-01-2024 Orders Only Fabio TOMLINSON-Jany Work Phone: Orthopaedics Comment on above: Pain in both knees, unspecified chronicity (Primary Dx) Start: 05-20-2024 End: 05-20-[address] Kurt Lieberman MD -Radiology, [facility] Work Phone: Start: 05-20-2024 End: 05-20-2024 ambulatory Kurt Lieberman Facility:[facility] Start: 11-21-2023 End: 11-21-2023 Nursing evaluation of patient and report Joy Gudino APRN.CNP Work Phone: General Surgery Comment on above: Squamous cell carcin catina of face (Primary Dx); Lip lesion Start: 11-21-2023 End: 11-21-2023 ambulatory KURT LIEBERMAN Facility:[facility] Start: 11-14-2023 End: 11-14-2023 ambulatory GIL ACOSTA Facility:[facility] Start: 11-14-2023 End: 11-14-2023 Patient encounter procedure Gil Acosta MD Work Phone: General Surgery Comment on above: Lip lesion (Primary Dx) Procedures Date Procedure Procedure Detail Performing Clinician Start: 10-24-[address] Kurt Lieberman MD Work Phone: Start: 10-22-2024 Urnls dip stick/tabl et reagent auto microscopy Dr. Kurt Lieberman MD Work Phone: Start: 10-22-2024 End: 10-22-[address] Kurt Lieberman MD Work Phone: Start: 10-22-2024 CT angiography of he ad and neck Dr. Kurt Lieberman MD Work Phone: Start: 10-11-2024 Adult depression scr eening assessment Angela High MD Work Phone: Start: 10-05-2024 Coagulation time, activated Dr. Kurt Lieberman MD Work Phone: Start: 09-03-[address] Kurt Lieberman MD Work Phone: Start: 09-01-2024 CT angiography of he ad and neck Dr. Kurt Lieberman MD Work Phone: Start: 08-31-2024 MRI of brain without contrast Dr. Kurt Lieberman MD Work Phone: Start: 08-31-2024 Methadone measuremen t, urine Dr. Kurt Lieberman MD Work Phone: Start: 08-31-2024 Urnls dip stick/tabl et reagent auto microscopy Dr. Kurt Lieberman MD Work Phone: Start: 08-31-2024 CT of head without contrast Dr. Kurt Lieberman MD Work Phone: Start: 05-20-2024 XR knee, [address] Ana Lieberman MD Work Phone: Start: 11-14-2023 Level iv surg pathol ogy gross&microscopic exam Gil Acosta MD Work Phone: Plan of Treatment Date Care Activity Detail Author Start: 10-11-2025 Anxiety Screening Anxiety Screening [facility] Start: 10-11-2025 Depression Screening Depression Scre ening [facility] Start: 01-24-2025 Influenza vaccination Influenz a Vaccine (Season Ended) [facility] Start: 11-22-2024 End: 11-22-2024 Patient encounter procedure 11/22/2024 10:40 AM EDT Office Visit Internal Medicine [place] [address] Angela High MD [address] [place] [address] 6 week f/u [facility] [place] Comment on above: 6 week f/u Start: 10-24-2024 Patient discharge [facility] Start: 10-24-2024 Removal of urinary catheter [facility] Start: 10-23-2024 [facility] Start: 10-23-2024 Referral to service [facility] Start: 10-22-2024 End: 10-22-2024 [facility] Start: 10-22-2024 Care regimes management [facility] Start: 10-22-2024 Notification of physician [facility] Start: 10-22-2024 Following clinical pathway protocol [facility] Start: 10-22-2024 Ambulation without limitation [facility] Start: 10-22-2024 Assessment of risk o f venous thromboembolism [facility] Start: 10-22-2024 Insertion of cathete r into peripheral vein [facility] Start: 10-22-2024 Measuring intake and output [facility] Start: 10-22-2024 Providing care accor ding to standard [facility] Start: 10-22-2024 Verification routine [facility] Start: 10-22-2024 Admission procedure [facility] Start: 10-22-2024 Hospital admission, emergency, from emergency room, medical nature [facility] Start: 10-22-2024 Patient referral to dietitian [facility] Start: 10-11-2024 End: 10-11-2024 Patient encounter procedure 10/11/2024 2:20 PM EDT Office Visit Internal Medicine [address] [address] Angela High MD [address] [place] [address] 6 week f/u [facility] [place] Comment on above: 6 week f/u Start: 10-06-2024 Patient discharge [facility] Start: 10-06-2024 [facility] Start: 10-06-2024 Inhalation therapy procedure [facility] Start: 10-05-2024 Introduction of urin ayleen catheter [facility] Start: 10-05-2024 Following clinical pathway protocol [facility] Start: 10-05-2024 Ambulation without limitation [facility] Start: 10-05-2024 Assessment of risk o f venous thromboembolism [facility] Start: 10-05-2024 Bedrest [facility] Start: 10-05-2024 Care regimes management [facility] Start: 10-05-2024 Catheterization of vein [facility] Start: 10-05-2024 Continuous pulse oximetry [facility] Start: 10-05-2024 Deep breathing and coughing exercises [facility] Start: 10-05-2024 Incentive spirometry [facility] Start: 10-05-2024 Insertion of cathete r into peripheral vein [facility] Start: 10-05-2024 Measuring intake and output [facility] Start: 10-05-2024 Notification of physician [facility] Start: 10-05-2024 Oxygen therapy [facility] Start: 10-05-2024 Patient referral to dietitian [facility] Start: 10-05-2024 Providing care accor ding to standard [facility] Start: 10-05-2024 Provision of activit y privileges [facility] Start: 10-05-2024 Pulse taking [facility] Start: 10-05-2024 Referral to occupati onal therapist [facility] Start: 10-05-2024 Referral to service [facility] Start: 10-05-2024 Taking patient vital signs [facility] Start: 10-05-2024 Vital signs measurements [facility] Start: 10-05-2024 End: 10-05-2024 [facility] Start: 10-05-2024 End: 10-05-2024 [facility] Start: 10-05-2024 Admission procedure [facility] Start: 10-05-2024 Insertion of carotid artery stent Carotidstent (Right) [facility] Start: 10-05-2024 Patient referral to dietitian [facility] Start: 09-28-2024 End: 12-28-2024 CBC panel - Blood by Automated count COMPLETE BLOOD COUNT Lab Routine Type 2 diabetes mellitus without complication, without long-term current use of insulin (HCC) Expected: 09/28/2024, Expires: 12/28/2024 [facility] Comment on above: Expected: 09/28/2024 , Expires: 12/28/2024 Start: 09-28-2024 End: 12-28-2024 Hemoglobin A1c in Blood HEMOGLOBIN A1C Lab Routine Type 2 diabetes mellitus without complication, without long-term current use of insulin ([facility]) Expected: 09/28/2024, Expires: 12/28/2024 [facility] Comment on above: Expected: 09/28/2024 , Expires: 12/28/2024 Start: 09-28-2024 End: 12-28-2024 Lipid 1996 panel - Serum or Plasma LIPID PANEL, FASTING Lab Routine Type 2 diabetes mellitus without complication, without long-term current use of insulin ([facility]) Expected: 09/28/2024, Expires: 12/28/2024 [facility] Comment on above: Expected: 09/28/2024 , Expires: 12/28/2024 Start: 09-28-2024 End: 12-28-2024 Microalbumin/Creatinine [Mass Ratio] in Urine ALBUMIN/CREATININE RATIO, URINE Lab Routine Type 2 diabetes mellitus without complication, without long-term current use of insulin ([facility]) Expected: 09/28/2024, Expires: 12/28/2024 [facility] Work Phone: Comment on above: Expected: 09/28/2024 , Expires: 12/28/2024 Start: 09-10-2024 End: 12-10-2024 Basic metabolic 2000 panel - Serum or Plasma BASIC METABOLIC PANEL Lab Routine Hypertension, unspecified type Expected: 09/10/2024, Expires: 12/10/2024 [facility] Work Phone: Comment on above: Expected: 09/10/2024 , Expires: 12/10/2024 Start: 09-03-2024 Patient discharge [facility] Start: 09-01-2024 Admission procedure [facility] Start: 09-01-2024 Referral to vascular surgeon [facility] Start: 09-01-2024 Application of intermittent pneumatic compression device [facility] Start: 09-01-2024 Following clinical pathway protocol [facility] Start: 09-01-2024 [facility] Start: 09-01-2024 Aspiration precautions [facility] Start: 09-01-2024 Cardiac monitoring [facility] Start: 09-01-2024 Catheterization of vein [facility] Start: 09-01-2024 Consultation [facility] Start: 09-01-2024 Elevation of head of bed [facility] Start: 09-01-2024 Exercises [facility] Start: 09-01-2024 Notification of physician [facility] Start: 09-01-2024 Oxygen therapy [facility] Start: 09-01-2024 Patient referral to dietitian [facility] Start: 09-01-2024 Referral to occupati onal therapist [facility] Start: 09-01-2024 Referral to service [facility] Start: 09-01-2024 Speech therapy assessment [facility] Start: 09-01-2024 Telemedicine consult ation with patient [facility] Start: 09-01-2024 Tobacco use cessatio n education [facility] Start: 09-01-2024 Vital signs measurements [facility] Start: 08-31-2024 MRI of brain without contrast Brain without Contrast [facility] Start: 08-31-2024 Thyroid stimulating hormone measurement [facility] Start: 08-31-2024 Admission procedure [facility] Start: 08-31-2024 End: 09-01-2024 [facility] Start: 08-31-2024 Hospital admission, emergency, from emergency room, medical nature [facility] Start: 08-31-2024 [facility] Start: 05-26-2024 Advance Directive Discussion Advance Directive Discussion [facility] Start: 01-25-2024 Covid-19 Vaccine () Covid-19 Vaccine () [facility] Start: 01-25-2024 Influenza vaccination [facility] Start: 05-26-2023 Advance Directive Discussion Advance Directive Discussion [facility] Start: 05-26-2023 Behavioral Health Screening Behavioral Health Screening [facility] Start: 01-24-2023 Covid-19 Vaccine ( season) Covid-19 Vaccine ( season) [facility] Start: 12-29-2014 RSV Vaccine (1 - 1-d ose 75+ series) RSV Vaccine (1 - 1-dose 75+ series) [facility] Start: 12-29-2004 Pneumococcal Vaccine : 65+ (1 of 1 - PCV) Pneumococcal Vaccine: 65+ (1 of 1 - PCV) [facility] Start: 12-29-2004 Screening for osteoporosis Bone Density Screening [facility] Start: 1999 RSV Vaccine (1 - 1-d ose 60+ series) RSV Vaccine (1 - 1-dose 60+ series) [facility] Start: 12-29-1989 Pneumococcal Vaccine : 50+ (1 of 1 - PCV) Pneumococcal Vaccine: 50+ (1 of 1 - PCV) [facility] Start: 12-29-1989 Shingrix Vaccine (1 of 2) Julien grix Vaccine (1 of 2) [facility] Start: 12-29-1984 Diabetes Screening Diabetes Screenin g [facility] Start: 12-29-1958 Pneumococcal Vaccine : 50+ (1 of 2 - PCV) Pneumococcal Vaccine: 50+ (1 of 2 - PCV) [facility] Start: 12-29-1958 Urine microalbumin profile DTaP,Tdap,Td Vaccine (1 - Tdap) [facility] Start: 12-29-1957 Anxiety Screening Anxiety Screening [facility] Start: 12-29-1957 Depression Screening Depression Scre ening [facility] Start: 12-29-1957 Hepatitis B surface antibody level LDL Cholesterol [facility] Start: 12-29-1949 Diabetic foot examination Diabetic F oot Exam [facility] Start: 12-29-1949 Glaucoma screening Dilated Retinal E xam [facility] Start: 12-29-1949 Hepatitis B screening Urine Albumin:Creatinine Ratio [facility] Start: 12-29-1944 Hemoglobin A1c measurement HbA1C [facility] Amphetamines [Presen ce] in Urine by Screen method >1000 ng/mL [facility] Basic metabolic 2008 panel with ionized calcium - Serum or Plasma [facility] Benzodiazepine measurement, urine [facility] CBC W Auto Different ial panel - Blood [facility] Cocaine measurement, urine [facility] CTA Head vessels and Neck vessels W contrast IV [facility] Ethanol [Mass/volume ] in Serum or Plasma [facility] fentaNYL [Presence] in Urine by Screen method [facility] Folate [Moles/volume ] in Serum or Plasma [facility] Hemoglobin A1c/Hemoglobin.total in Blood [facility] Methadone measuremen t, urine [facility] Microscopic urinalysis [facility] Organism count, microscopic method [facility] Patient referral [facility] Work Phone: Phencyclidine [Prese nce] in Urine [facility] Troponin T.cardiac [Mass/volume] in Serum or Plasma by High sensitivity method [facility] Urine cannabinoid measurement [facility] Urine microscopy: epithelial cells [facility] Urine microscopy: re d cells [facility] Urine opiate measurement [facility] White blood [facility] count [facility] End: 07-01-2025 XR Knee - bilateral 4 Views XR KNEE GENERAL 4V AP BOTH/PA BOTH/LAT/MERC BILATERAL Radiology Routine Pain in both knees, unspecified chronicity 1 Occurrences starting 06/01/2024 until 07/01/2025 [facility] Work Phone: Comment on above: 1 Occurrences starti ng 06/01/2024 until 07/01/2025 End: 07-01-2025 XR Lower extremity - bilateral AP W standing XR LEG FRONTAL HIP TO ANKLE MECHANICAL AXIS Radiology Routine Pain in both knees, unspecified chronicity 1 Occurrences starting 06/01/2024 until 07/01/2025 [facility] Comment on above: 1 Occurrences starti ng 06/01/2024 until 07/01/2025 Immunizations Immunization Date Immunization Notes Care Provider [facility] 03-08-2016 influenza, injectabl e, quadrivalent, preservative free Dr. Kurt Lieberman MD Work Phone: [facility] Payers Date Payer Category Payer Self-pay 2023 Medicare MMO MEDICARE MMO [employer] HMO [id number] 2023-Present [phone] [address] [place] [address] O [id number] 2023 Medicare (Managed Care) MMO [employer] HMO Member Subscriber Plan / Payer (Effective 2023-Present) Name: Chelsea Moody Relation to Subscriber: Self Name: Chelsea Moody Payer ID: Not on file Type: HMO Address: [place] [id number] 2023 Medicare [id number] 2004 Medicare MEDICARE PART A B [id number] Unknown COMMERCIAL OTHER [id number] Unknown [id number] .[id number] Unknown [id number] .2.462 Unknown [id number] [id number] .2.462 Unknown [id number] .2.462 Unknown [id number] [id number] .2.462 Unknown [id number] 2.16.840.1.601149.3.579 .2.462 Unknown [id number] 2.16.840.1.390533.3.579 .2.462 Unknown [id number] 2.16.840.1.938788.3.579 .2.462 Unknown [id number] 2.16.840.1.864795.3.579 .2.462 Unknown [id number] 2.16.840.1.997933.3.579 .2.462 Unknown [id number] 2.16.840.1.375320.3.579 .2.462 Unknown [id number] 2.16.840.1.962290.3.579 .2.462 Unknown [id number] 2.16.840.1.290956.3.579 .2.462 Unknown [id number] 2.16.840.1.614705.3.579 .2.462 Unknown [id number] 2.16.840.1.580492.3.579 .2.462 Unknown [id number] 2.16.840.1.509619.3.579 .2.462 Unknown [id number] 2.16.840.1.211103.3.579 .2.462 Unknown [id number] 2.16.840.1.302914.3.579 .2.462 Unknown [id number] [id number] .2.462 Unknown [id number] [id number] .2.462 Social History Date Type Detail Facility Start: 11-14-2023 End: 10-22-2024 Tobacco smoking status NHIS Never smoked tobacco [facility] Start: 11-14-2023 Tobacco use and exposure Smokeless tobacco non-user [facility] Start: 11-14-2023 End: 10-11-2024 Alcohol intake Current drinker of alcohol (finding) [facility] Start: 11-14-2023 End: 11-21-2023 History of Social function [facility] Start: 11-14-2023 End: 11-21-2023 Tobacco use panel [facility] National Score (1-100), lower number is lower risk 64 [facility] Start: 1940 Sex Assigned At Not on file [facility] Start: 08-31-2024 End: 09-03-2024 Sex Female (finding) [facility] Start: 1940 Sex Assigned At Female [facility] NEGATED: Highlighted row Not [facility] Medical Equipment Procedure Code Equipment Code Equipment Origin al Text Equipment Identifier Dates two times a day. TEST BLOOD SUGAR [id number] Start: 10-27-2023 Bare-metal carot id artery stent ()[id number] FDA Start: 10-05-2024 Goals Date Patient Goal Desired Activity /State Functional Status Date Assessment Result Facility 10-24-2024 Functional status Ambulates [facility] Work Phone: 10-06-2024 Functional status Bedside Commode [facility] Work Phone: 09-03-2024 Functional status Ambulates;Bathroom Priv ilege [facility] Work Phone: Mental Status Date Assessment Result Facility 10-24-2024 Cognitive function Voice/Name [facility] Work Phone: 10-22-2024 Cognitive function Level Of Cons ciousness Awake;Alert;Appropriate;Follow s Commands [facility] Work Phone: 10-06-2024 Cognitive function Voice/Name [facility] Work Phone: 09-03-2024 Cognitive function Voice/Name [facility] Work Phone: 08-31-2024 Cognitive function Awake;Alert;A ppropriate;Follow s Commands [facility] Work Phone: Clinical Notes 11-14-2023 to 10-24-2024 Note Date & Type Note Facility 10-24-2024 Discharge summary Note Date/Time October 24, 2024 2:41pm [facility] Medical Records Department [address] [place] [address] Discharge Summary 10/24/24 1435 MR#: [id number] Acct: [id number] Name: CHELSEA MOODY Rep #:[id number] : 1940 83 From: Familia anand DO PCP: Dr. Angela High MD Status:ADM I N Location: [place] [address] Providers Date of Admission: 10/22/24 Date of Discharge: 10/24/24 Primary Care Physician: Dr. Angela High MD Reason For Visit: ACUTE HYPONATREMIA Diagnosis Discharge Diagnosis (1) Acute hyponatremia: Status: Acute Code(s): E87.1 - Hypo-osmolality and hyponatremia Medications at Discharge Home Medications aspirin 81 mg chewable tablet 81 mg PO BREAKFAST SUPPLEMENT #0 tabs 09/03/24 atorvastatin 40 mg tablet 40 mg PO QHS CHOLESTEROL #30 tabs 09/03/24 clopidogrel 75 mg tablet 75 mg PO DAILY BLOOD THINNER #30 tabs 09/03/24 insulin glargine 100 unit/mL (3 mL) subcutaneous pen (Lantus Solostar U-100 Insulin) 10 unit (0.1 mL) subcut QHS DIABETES #15 mL 09/03/24 metformin 500 mg tablet 500 mg PO BID DIABETES #60 tabs 09/03/24 amlodipine 5 mg tablet 5 mg PO BID 10/22/24 omeprazole 40 mg capsule,delayed release 40 mg PO QDAY 10/22/24 losartan 50 mg tablet 50 mg PO DAILY 30 days #30 tabs 10/24/24 Hospital Course Operations None Procedures - (CTA head/neck) Summary of Care Provided Minutes Spent on Discharge: 35 Hospital Course: Patient is an 83-year-old female who presented to [facility] ED on 10/22/2024 with abnormal labs, weakness and mild confusion. Hospital course as noted below. Patient discharged home in stable condition on 10/24. 1. Acute hyponatremia, improving ? Sodium 119, chloride 82 on admit. Sodium level was 134 on 10/01 and baseline isaround 135. Presume secondary to hydrochlorothiazide that was initiated recently. Only mild confusion with nausea on admission, no need for hypertonic saline. Treated with IV normal saline 100 cc/hr, repeat sodium 128 on morning of 10/23. Normal saline discontinued. Repeat sodium 129 on afternoon of 10/23 and most recent sodium 132 on morning of discharge. Patient mentation improved and feeling much improved overall from admission. Hydrochlorothiazide discontinued and placed on allergy list. Suspect sodium will continue to improve, no need for repeat labs at this point. 2. Hypertension, hyperlipidemia, history of CVA s/p carotid stenting ? Follows with vascular surgery. Had TCAR procedure with Dr. Rogel recently on10/05. Tolerated procedure well, no postoperative complications. Notably had losartan-hydrochlorothiazide added to her blood pressure regimen about 2 weeks ago by her PCP for systolic BPs running in the 170s to 180s at home. Hydrochlorothiazide discontinued as above. Continue home aspirin, Plavix, statin, amlodipine and losartan on discharge. Chronic medical conditions: ? Class II obesity: BMI 37 on admit. Complicated hospital course, care and prognosis. ? Type 2 diabetes mellitus: Treated with home Lantus 10 units at night and Humalog sliding scale insulin with meals while inpatient. Continue home Lantus and resume metformin on discharge. ? GERD: Continue home PPI. Total clinical time spent by myself addressing the patient's medical issues, reviewing all the data, and collaborating with patient's care team: 35 minutes. Physical Exam Const alert, oriented x3 and no apparent distress Constitutional Narrative: Elderly female, class II obesity, mildly fatigued appearing but improved from admission, otherwise sitting back comfortably in bed, conversing normally, in noacute distress. General Appearance: cooperative and comfortable HEENT normocephalic, head/scalp atraumatic, hearing grossly normal bilaterally, nasal mucous membranes and turbinates normal and moist oral mucous membranes Eyes PERRL, EOMs intact bilaterally and conjunctivae normal Neck full ROM Chest inspection of chest normal Resp normal respiratory effort, normal air movement, no use of accessory muscles and clear to auscultation bilaterally Cardio regular rate, regular rhythm, no murmurs and peripheral pulses 2+ throughout GI normal to inspection, nondistended, normoactive bowel sounds, soft to palpation,non-tender and non-distended Back/Spine normal ROM Extremity normal to inspection, full ROM and no pedal edema Skin no rashes or lesions noted Psych mental status grossly normal Weight / BMI Weight Weight: 76.43 kg Body Mass Index (BMI) 37.8 ABG / Lab / Microbiology Data 10/23/24 05:51 10/24/24 05:46 Laboratory: Laboratory Results - last 24 hr 10/23/24 16:43: POC Glucose 206 H 10/23/24 21:26: POC Glucose 195 H 10/24/24 05:46: Sodium 132 L, Potassium 4.0, Chloride 98, Carbon Dioxide 20.9 L,Anion Gap 13, BUN 8, Creatinine 0.90, Estim Creat Clear Calc 42.51 L, Est GFR (MDRD) Non-Af 63, BUN/Creatinine Ratio 8.4 L, Glucose 148 H, Calcium 9.2 10/24/24 06:03: POC Glucose 156 H 10/24/24 12:36: POC Glucose 252 H D/C Instructions DC O2, CPAP, BIPAP Needs Home O2 Discharge instructions: No Meaningful Use Info Meaningful Use Meaningful Use Diagnoses (Choose all that apply): None applicable Ischemic Stroke Statin Dosing Therapy Reference: STATIN DOSE THERAPY REFERENCE: * Patients > 75 years receive moderate or high dose statin therapy. * Patients 75 years or YOUNGER should receive HIGH intensity statin dose unless contraindicated. You will be required to document reason for non-treatment if statin daily dose does not meet guidelines. HIGH DOSE STATIN THERAPY DAILY Atorvastatin > than or = to 40 mg Rosuvastatin > than or = to 20 mg Amlodipine + Atorvastatin > than or = to 2.5/40 mg Ezetimibe + Simvastatin 10/80 mg Simvastatin 80mg Discharge Plan Admission Admit Date/Time: 10/22/24 19:28 Primary Reason for Your Visit: abnormal labs and fatigue Attending Provider: Familia Manriquez Primary Care Provider: Angela High Consulting Providers: Axel Lockwood Instructions Additional Instructions / Restrictions: Stop taking the losartan-hydrochlorothiazide that had recently been prescribed as the hydrochlorothiazide was very likely the cause of the low sodium level. Please start taking the losartan 50 mg daily as noted below. Follow-up with your primary care doctor as needed. Discharge Orders/Prescriptions Prescriptions: New losartan 50 mg Tablet 50 mg PO DAILY 30 Days Qty: 30 2RF Continued amlodipine 5 mg tablet 5 mg PO BID omeprazole 40 mg capsule,delayed release(DR/EC) 40 mg PO QDAY atorvastatin 40 mg Tablet 40 mg PO QHS Qty: 30 1RF aspirin 81 mg Tablet,Chewable 81 mg PO BREAKFAST Qty: 0 0RF clopidogrel 75 mg Tablet 75 mg PO DAILY Qty: 30 1RF metformin 500 mg tablet 500 mg PO BID Qty: 60 1RF insulin glargine [Lantus Solostar U-100 Insulin] 100 unit/mL (3 mL) insulin pen 10 unit subcut QHS Qty: 15 0RF Discontinued losartan-hydrochlorothiazide 50-12.5 mg tablet 1 tab PO QDAY Referrals / Follow Up: Angela High MD [Primary Care Provider] - Disposition Disposition (needs filled in before D/C Order can be placed): Home, Self Care Charges/Coding Visit Charges Inpatient E&M: 66182 Disch Hosp >30min 10/24/24 1441 <Electronically signed by Familia Manriquez DO> Cosigner Signature (if applicable): CC: Dr. Familia Manriquez DO; Dr. Angela High MD~ Signed [facility] Work Phone: 1(999) 586-302006-01-2025 Discharge summary Author Familia Manriquez [facility] Note Date/Time October 24, 2024 2:37p m [facility] Medical Records Department [address] [place] [address] Instructions for Home/Discharge Instructions 10/24/24 1435 MR#: [id number] Acct: [id number] Name: CHELSEA MOODY Rep #:[id number] : 1940 83 From: Familia anand DO PCP: Dr. Angela High MD Status:ADM I N Discharge Instructions Diet Discharge Diet: No restrictions DC O2, CPAP, BIPAP needs Home O2 Discharge instructions: No Dressing / Incision Discharge Activity: No Restrictions Follow Up Care Test Results: Test results from this visit will be discussed in further detail at your follow- up appointment, if applicable. Discharge Plan Admission Admit Date/Time: 10/22/24 19:28 Primary Reason for Your Visit: abnormal labs and fatigue Attending Provider: Familia Manriquez Primary Care Provider: Angela High Consulting Providers: Axel Lockwood Instructions Additional Instructions / Restrictions: Stop taking the losartan-hydrochlorothiazide that had recently been prescribed as the hydrochlorothiazide was very likely the cause of the low sodium level. Please start taking the losartan 50 mg daily as noted below. Follow-up with your primary care doctor as needed. Discharge Orders/Prescriptions Prescriptions: New losartan 50 mg Tablet 50 mg PO DAILY 30 Days Qty: 30 2RF Continued amlodipine 5 mg tablet 5 mg PO BID omeprazole 40 mg capsule,delayed release(DR/EC) 40 mg PO QDAY atorvastatin 40 mg Tablet 40 mg PO QHS Qty: 30 1RF aspirin 81 mg Tablet,Chewable 81 mg PO BREAKFAST Qty: 0 0RF clopidogrel 75 mg Tablet 75 mg PO DAILY Qty: 30 1RF metformin 500 mg tablet 500 mg PO BID Qty: 60 1RF insulin glargine [Lantus Solostar U-100 Insulin] 100 unit/mL (3 mL) insulin pen 10 unit subcut QHS Qty: 15 0RF Discontinued losartan-hydrochlorothiazide 50-12.5 mg tablet 1 tab PO QDAY Referrals / Follow Up: Angela High MD [Primary Care Provider] - Disposition Disposition (needs filled in before D/C Order can be placed): Home, Self Care 10/24/24 1437<Electronically signed by Familia Manriquez DO>Familia Manriquez DO CC: Dr. Angela High MD; Dr. Axel Lockwood MD ~ Signed [facility] Work Phone: 1(626) 442-701406-01-2025 Discharge summary [facility] Medical Records Department [address] [place] [address] Discharge Summary 10/24/24 143 MR#: [id number] Acct: [id number] Name: CHELSEA MOODY Rep #:[id number] : 1940 83 From: Familia anand DO PCP: Dr. Angela High MD Status:ADM I N Location: [place] [address]- Providers Date of Admission: 10/22/24 Date of Discharge: 10/24/24 Primary Care Physician: Dr. Angela High MD Reason For Visit: ACUTE HYPONATREMIA Diagnosis Discharge Diagnosis (1) Acute hyponatremia: Status: Acute Code(s): E87.1 - Hypo-osmolality and hyponatremia Medications at Discharge Home Medications aspirin 81 mg chewable tablet 81 mg PO BREAKFAST SUPPLEMENT #0 tabs 09/03/24 atorvastatin 40 mg tablet 40 mg PO QHS CHOLESTEROL #30 tabs 09/03/24 clopidogrel 75 mg tablet 75 mg PO DAILY BLOOD THINNER #30 tabs 09/03/24 insulin glargine 100 unit/mL (3 mL) subcutaneous pen (Lantus Solostar U-100 Insulin) 10 unit (0.1 mL) subcut QHS DIABETES #15 mL 09/03/24 metformin 500 mg tablet 500 mg PO BID DIABETES #60 tabs 09/03/24 amlodipine 5 mg tablet 5 mg PO BID 10/22/24 omeprazole 40 mg capsule,delayed release 40 mg PO QDAY 10/22/24 losartan 50 mg tablet 50 mg PO DAILY 30 days #30 tabs 10/24/24 Hospital Course Operations None Procedures - (CTA head/neck) Summary of Care Provided Minutes Spent on Discharge: 35 Hospital Course: Patient is an 83-year-old female who presented to [facility] ED on 10/22/2024 with abnormal labs, weakness and mild confusion. Hospital course as noted below. Patient discharged home in stable condition on 10/24. 1. Acute hyponatremia, improving ? Sodium 119, chloride 82 on admit. Sodium level was 134 on 10/01 and baseline isaround 135. Presume secondary to hydrochlorothiazide that was initiated recently. Only mild confusion with nausea on admission, no need for hypertonic saline. Treated with IV normal saline 100 cc/hr, repeat sodium 128 onmorning of 10/23. Normal saline discontinued. Repeat sodium 129 on afternoon of 10/23 and most recentsodium 132 on morning of discharge. Patient mentation improved and feeling much improved overall from admission. Hydrochlorothiazide discontinued and placed on allergy list. Suspect sodium will continue to improve, no need for repeat labs at this point. 2. Hypertension, hyperlipidemia, history of CVA s/p carotid stenting ? Follows with vascular surgery. Had TCAR procedure with Dr. Rogel recently on10/05. Tolerated procedure well, no postoperative complications. Notably had losartan-hydrochlorothiazide added to her blood pressure regimen about 2 weeks ago by her PCP for systolic BPs running in the 170s to 180s at home. Hydrochlorothiazide discontinued as above. Continue home aspirin, Plavix, statin, amlodipine andlosartan on discharge. Chronic medical conditions: ? Class II obesity: BMI 37 on admit. Complicated hospital course, care and prognosis. ? Type 2 diabetes mellitus: Treated with home Lantus 10 units at night and Humalog sliding scale insulin with meals while inpatient. Continue home Lantus and resume metformin on discharge. ? GERD: Continue home PPI. Total clinical time spent by myself addressing the patient's medical issues, reviewing all the data, and collaborating with patient's care team: 35 minutes. Physical Exam Const alert, oriented x3 and no apparent distress Constitutional Narrative: Elderly female, class II obesity, mildly fatigued appearing but improved from admission, otherwise sitting back comfortably in bed, conversing normally, in noacute distress. General Appearance: cooperative and comfortable HEENT normocephalic, head/scalp atraumatic, hearing grossly normal bilaterally, nasal mucous membranes and turbinates normal and moist oral mucous membranes Eyes PERRL, EOMs intact bilaterally and conjunctivae normal Neck full ROM Chest inspection of chest normal Resp normal respiratory effort, normal air movement, no use of accessory muscles and clear to auscultation bilaterally Cardio regular rate, regular rhythm, no murmurs and peripheral pulses 2+ throughout GI normal to inspection, nondistended, normoactive bowel sounds, soft to palpation,non-tender and non-distended Back/Spine normal ROM Extremity normal to inspection, full ROM and no pedal edema Skin no rashes or lesions noted Psych mental status grossly normal Weight / BMI Weight Weight: 76.43 kg Body Mass Index (BMI) 37.8 ABG / Lab / Microbiology Data 10/23/24 05:51 10/24/24 05:46 Laboratory: Laboratory Results - last 24 hr 10/23/24 16:43: POC Glucose 206 H 10/23/24 21:26: POC Glucose 195 H 10/24/24 05:46: Sodium 132 L, Potassium 4.0, Chloride 98, Carbon Dioxide 20.9 L,Anion Gap 13, BUN 8, Creatinine 0.90, Estim Creat Clear Calc 42.51 L, Est GFR (MDRD) Non-Af 63, BUN/Creatinine Ratio 8.4 L, Glucose 148 H, Calcium 9.2 10/24/24 06:03: POC Glucose 156 H 10/24/24 12:36: POC Glucose 252 H D/C Instructions DC O2, CPAP, BIPAP Needs Home O2 Discharge instructions: No Meaningful Use Info Meaningful Use Meaningful Use Diagnoses (Choose all that apply): None applicable Ischemic Stroke Statin Dosing Therapy Reference: STATIN DOSE THERAPY REFERENCE: * Patients > 75 years receive moderate or high dose statin therapy. * Patients 75 years or YOUNGER should receive HIGH intensity statin dose unless contraindicated. You will be required to document reason for non-treatment if statin daily dose does not meet guidelines. HIGH DOSE STATIN THERAPY DAILY Atorvastatin > than or = to 40 mg Rosuvastatin > than or = to 20 mg Amlodipine + Atorvastatin > than or = to 2.5/40 mg Ezetimibe + Simvastatin 10/80 mg Simvastatin 80mg Discharge Plan Admission Admit Date/Time: 10/22/24 19:28 Primary Reason for Your Visit: abnormal labs and fatigue Attending Provider: Familia Manriquez Primary Care Provider: Angela High Consulting Providers: Axel Lockwood Instructions Additional Instructions / Restrictions: Stop taking the losartan-hydrochlorothiazide that had recently been prescribed as the hydrochlorothiazide was very likely the cause of the low sodium level. Please start taking the losartan 50 mg daily as noted below. Follow-up with your primary care doctor as needed. Discharge Orders/Prescriptions Prescriptions: New losartan 50 mg Tablet 50 mg PO DAILY 30 Days Qty: 30 2RF Continued amlodipine 5 mg tablet 5 mg PO BID omeprazole 40 mg capsule,delayed release(DR/EC) 40 mg PO QDAY atorvastatin 40 mg Tablet 40 mg PO QHS Qty: 30 1RF aspirin 81 mg Tablet,Chewable 81 mg PO BREAKFAST Qty: 0 0RF clopidogrel 75 mg Tablet 75 mg PO DAILY Qty: 30 1RF metformin 500 mg tablet 500 mg PO BID Qty: 60 1RF insulin glargine [Lantus Solostar U-100 Insulin] 100 unit/mL (3 mL) insulin pen 10 unit subcut QHS Qty: 15 0RF Discontinued losartan-hydrochlorothiazide 50-12.5 mg tablet 1 tab PO QDAY Referrals / Follow Up: Angela High MD [Primary Care Provider] - Disposition Disposition (needs filled in before D/C Order can be placed): Home, Self Care Charges/Coding Visit Charges Inpatient E&M: 29847 Disch Hosp >30min 10/24/24 1441 Cosigner Signature (if applicable): CC: Dr. Familia Manriquez DO; Dr. Angela High MD~ Signed [facility]06-01-2025 Discharge summary [facility] Medical Records Department [address] [place] [address] Instructions for Home/Discharge Instructions 10/24/24 1435 MR#: [id number] Acct: [id number] Name: CHELSEA MOODY Rep #:[id number] : 1940 83 From: Familia anand DO PCP: Dr. Angela High MD Status:ADM I N Discharge Instructions Diet Discharge Diet: No restrictions DC O2, CPAP, BIPAP needs Home O2 Discharge instructions: No Dressing / Incision Discharge Activity: No Restrictions Follow Up Care Test Results: Test results from this visit will be discussed in further detail at your follow- up appointment, if applicable. Discharge Plan Admission Admit Date/Time: 10/22/24 19:28 Primary Reason for Your Visit: abnormal labs and fatigue Attending Provider: Familia Manriquez Primary Care Provider: Angela High Consulting Providers: Axel Lockwood Instructions Additional Instructions / Restrictions: Stop taking the losartan-hydrochlorothiazide that had recently been prescribed as the hydrochlorothiazide was very likely the cause of the low sodium level. Please start taking the losartan 50 mg daily as noted below. Follow-up with your primary care doctor as needed. Discharge Orders/Prescriptions Prescriptions: New losartan 50 mg Tablet 50 mg PO DAILY 30 Days Qty: 30 2RF Continued amlodipine 5 mg tablet 5 mg PO BID omeprazole 40 mg capsule,delayed release(DR/EC) 40 mg PO QDAY atorvastatin 40 mg Tablet 40 mg PO QHS Qty: 30 1RF aspirin 81 mg Tablet,Chewable 81 mg PO BREAKFAST Qty: 0 0RF clopidogrel 75 mg Tablet 75 mg PO DAILY Qty: 30 1RF metformin 500 mg tablet 500 mg PO BID Qty: 60 1RF insulin glargine [Lantus Solostar U-100 Insulin] 100 unit/mL (3 mL) insulin pen 10 unit subcut QHS Qty: 15 0RF Discontinued losartan-hydrochlorothiazide 50-12.5 mg tablet 1 tab PO QDAY Referrals / Follow Up: Angela High MD [Primary Care Provider] - Disposition Disposition (needs filled in before D/C Order can be placed): Home, Self Care 10/24/24 1437Alexmumtaz Manriquez DO CC: Dr. Angela High MD; Dr. Axel Lockwood MD ~ [facility]06-01-2025 [facility] Medical Records Department [address] [place] [address] Discharge Summary 10/24/24 1435 MR#: [id number] Acct: [id number] Name: CHELSEA MOODY Ravinder Rep #: [id number] : 1940 83 From: Familia Manriquez DO PCP: Dr. Angela High MD Status:ADM IN Location: [place] [address] Providers Date of Admission: 10/22/24 Date of Discharge: 10/24/24 Primary Care Physician: Dr. Angela High MD Reason For Visit: ACUTE HYPONATREMIA Diagnosis Discharge Diagnosis (1) Acute hyponatremia: Status: Acute Code(s): E87.1 - Hypo-osmolality and hyponatremia Medications at Discharge Home Medications aspirin 81 mg chewable tablet 81 mg PO BREAKFAST SUPPLEMENT #0 tabs 09/03/24 atorvastatin 40 mg tablet 40 mg PO QHS CHOLESTEROL #30 tabs 09/03/24 clopidogrel 75 mg tablet 75 mg PO DAILY BLOOD THINNER #30 tabs 09/03/24 insulin glargine 100 unit/mL (3 mL) subcutaneous pen (Lantus Solostar U-100 Insulin) 10 unit (0.1 mL) subcut QHS DIABETES #15 mL 09/03/24 metformin 500 mg tablet 500 mg PO BID DIABETES #60 tabs 09/03/24 amlodipine 5 mg tablet 5 mg PO BID 10/22/24 omeprazole 40 mg capsule,delayed release 40 mg PO QDAY 10/22/24 losartan 50 mg tablet 50 mg PO DAILY 30 days #30 tabs 10/24/24 Hospital Course Operations None Procedures - (CTA head/neck) Summary of Care Provided Minutes Spent on Discharge: 35 Hospital Course: Patient is an 83-year-old female who presented to [facility] ED on 10/22/2024 with abnormal labs, weakness and mild confusion. Hospital course as noted below. Patient discharged home in stable condition on 10/24. 1. Acute hyponatremia, improving ??? Sodium 119, chloride 82 on admit. Sodium level was 134 on 10/01 and baseline is around 135. Presume secondary to hydrochlorothiazide that was initiated recently. Only mild confusion with nausea on admission, no need for hypertonic saline. Treated with IV normal saline 100 cc/hr, repeat sodium 128 on morning of 10/23. Normal saline discontinued. Repeat sodium 129 on afternoon of 10/23 and most recent sodium 132 on morning of discharge. Patient mentation improved and feeling much improved overall from admission. Hydrochlorothiazide discontinued and placed on allergy list. Suspect sodium will continue to improve, no need for repeat labs at this point. 2. Hypertension, hyperlipidemia, history of CVA s/p carotid stenting ??? Follows with vascular surgery. Had TCAR procedure with Dr. Rogel recently on 10/05. Tolerated procedure well, no postoperative complications. Notably had losartan- hydrochlorothiazide added to her blood pressure regimen about 2 weeks ago by her PCP for systolic BPs running in the 170s to 180s at home. Hydrochlorothiazide discontinued as above. Continue home aspirin, Plavix, statin, amlodipine and losartan on discharge. Chronic medical conditions: ??? Class II obesity: BMI 37 on admit. Complicated hospital course, care and prognosis. ??? Type 2 diabetes mellitus: Treated with home Lantus 10 units at night and Humalog sliding scale insulin with meals while inpatient. Continue home Lantus and resume metformin on discharge. ??? GERD: Continue home PPI. Total clinical time spent by myself addressing the patient's medical issues, reviewing all the data, and collaborating with patient's care team: 35 minutes. Physical Exam Const alert, oriented x3 and no apparent distress Constitutional Narrative: Elderly female, class II obesity, mildly fatigued appearing but improved from admission, otherwise sitting back comfortably in bed, conversing normally, in no acute distress. General Appearance: cooperative and comfortable HEENT normocephalic, head/scalp atraumatic, hearing grossly normal bilaterally, nasal mucous membranes and turbinates normal and moist oral mucous membranes Eyes PERRL, EOMs intact bilaterally and conjunctivae normal Neck full ROM Chest inspection of chest normal Resp normal respiratory effort, normal air movement, no use of accessory muscles and clear to auscultation bilaterally Cardio regular rate, regular rhythm, no murmurs and peripheral pulses 2+ throughout GI normal to inspection, nondistended, normoactive bowel sounds, soft to palpation, non-tender and non- distended Back/Spine normal ROM Extremity normal to inspection, full ROM and no pedal edema Skin no rashes or lesions noted Psych mental status grossly normal Weight / BMI Weight Weight: 76.43 kg Body Mass Index (BMI) 37.8 ABG / Lab / Microbiology Data 10/23/24 05:51 10/24/24 05:46 Laboratory: Laboratory Results - last 24 hr 10/23/24 16:43: POC Glucose 206 H 10/23/24 21:26: POC Glucose 195 H 10/24/24 05:46: Sodium 132 L, Potassium 4.0, Chloride 98, Carbon Dioxide 20.9 L, Anion Gap 13, BUN 8, Creatinine 0.90, Estim Creat Clear Calc 42.51 L, Est GFR (MDRD) Non-Af 63, (more content not included)...[facility]05-31-2025 Progress note Author Faimlia [facility] [place] Note Date/Time October 23, 2024 11:35 am [facility] Medical Records Department [address] [place] [address] Progress Note - Hospitalist 10/23/24 1011 MR#: [id number] Acct: [id number] Name: CHELSEA MOODY Rep #:[id number] : 1940 83 From: Familia anand DO PCP: Dr. Angela High MD Status:ADM I N Location: [place] [address] Reason for Visit Reason for Visit: Diagnoses Hypo-osmolality and hyponatremia (10/22/24) Subjective Subjective Saw patient at bedside this morning. Patient was sitting back comfortably in bed, conversing normally, in no acute distress. Noted that she still does not feel at her baseline but does feel improved today compared to yesterday. Does not feel nearly as confused. Feels less dehydrated as well. Denies any pain ordiscomfort today. No other new concerns morning. Objective Data Objective Data Vital Signs: Vital Signs Temp Pulse Resp BP Pulse Ox O2 Del Method 98.0 F 84 16 149/62 H 97 Room Air 10/23/24 06:30 10/23/24 06:30 10/23/24 06:30 10/23/24 06:30 10/23/24 06:30 10/23/24 06:30 Oxygen Delivery Method Room Air Weight: 76.43 kg Body Mass Index (BMI) 37.8 Intake & Output: Intake and Output for Last 24 Hours 10/21/24 10/22/24 10/23/24 23:59 23:59 23:59 Intake Total 582.5 / 582.5 1080 / 1080 Output Total 450 / 450 1100 / 1100 Balance 132.5 / 132.5 -20 / -20 Lab / Micro Data 10/23/24 05:51 10/23/24 05:51 Labs: Laboratory Results - last 24 hr 10/22/24 18:00: WBC 14.7 H, RBC 3.73 L, Hgb 11.3 L, Hct 32.5 L, MCV 87.1, MCH 30.3, MCHC 34.8, RDW Std Deviation 40.0, RDW Coeff of Óscar 12.6, Plt Count 399, MPV 10.0, Immature Gran % (Auto) 0.600, Neut % (Auto) 77.8 H, Lymph % (Auto) 10.8 L, Pawnee % (Auto) 10.3 H, Eos % (Auto) 0.1, Baso % (Auto) 0.4, Absolute Neuts (auto) 11.4 H, Absolute Lymphs (auto) 1.59, Nucleated RBC % 0, Differential Comment SCANNED, Platelet Estimate ADEQUATE, Sodium 119 L*, Potassium 4.3, Chloride 82 L, Carbon Dioxide 20.7 L, Anion Gap 16 H, BUN 15, Creatinine 1.26 H, Estim Creat Clear Calc 30.51 L, Est GFR (MDRD) Non-Af 42 L, BUN/Creatinine Ratio 11.5, Glucose 160 H, Calcium 9.2 10/22/24 18:33: Urine Color Straw, Urine Clarity Clear, Urine pH 6.0, Ur Specific Husser 1.005, Urine Protein 15 H, Urine Glucose (UA) Normal, Urine Ketones Negative, Urine Occult Blood Negative, Urine Nitrite Negative, Urine Bilirubin Negative, Urine Urobilinogen Normal, Ur Leukocyte Esterase Negative, Urine RBC 0-5 SEEN, Urine WBC 0-5 SEEN, Ur Squamous Epith Cells 0 SEEN, Urine Bacteria 0 SEEN, Urine Mucus 0 SEEN 10/22/24 22:13: POC Glucose 199 H 10/23/24 05:51: WBC 11.0, RBC 3.62 L, Hgb 10.9 L, Hct 31.5 L, MCV 87.0, MCH 30.1, MCHC 34.6, RDW Std Deviation 40.0, RDW Coeff of Óscar 12.5, Plt Count 376, MPV 10.0, Immature Gran % (Auto) 0.800, Neut % (Auto) 72.5 H, Lymph % (Auto) 13.7 L, Pawnee % (Auto) 12.0 H, Eos % (Auto) 0.5, Baso % (Auto) 0.5, Absolute Neuts (auto) 8.0 H, Absolute Lymphs (auto) 1.51, Nucleated RBC % 0, Sodium 128 L, Potassium 4.0, Chloride 94 L, Carbon Dioxide 21.8, Anion Gap 13, BUN 11, Creatinine 0.96, Estim Creat Clear Calc 39.85 L, Est GFR (MDRD) Non-Af 58 L, BUN/Creatinine Ratio 11.3, Glucose 168 H, Calcium 9.0 10/23/24 06:35: POC Glucose 170 H Physical Exam Const alert, oriented x3 and no apparent distress Constitutional Narrative: Elderly female, class II obesity, mild to moderately fatigued appearing but is A&Ox3 today and sitting back comfortably in bed, conversing normally, in no acute distress. General Appearance: cooperative and comfortable HEENT normocephalic, head/scalp atraumatic, hearing grossly normal bilaterally, nasal mucous membranes and turbinates normal and moist oral mucous membranes Eyes PERRL, EOMs intact bilaterally and conjunctivae normal Neck full ROM Chest inspection of chest normal Resp normal respiratory effort, normal air movement, no use of accessory muscles and clear to auscultation bilaterally Cardio regular rate, regular rhythm, no murmurs and peripheral pulses 2+ throughout GI normal to inspection, nondistended, normoactive bowel sounds, soft to palpation,non-tender and non-distended Back/Spine normal ROM Extremity normal to inspection, full ROM and no pedal edema Skin no rashes or lesions noted Psych mental status grossly normal Assessment & Plan Assessment/Plan (1) Acute hyponatremia: PLAN: Plan Patient is an 83-year-old female who presented to [facility] ED on 10/22/2024 with abnormal labs, weakness and mild confusion. 1. Acute hyponatremia, improving ? Sodium 119, chloride 82 on admit. Sodium level was 134 on 10/01 and baseline isaround 135. Presume secondary to hydrochlorothiazide that was initiated recently. Only mild confusion with nausea on admission, no need for hypertonic saline. Treated with IV normal saline 100 cc/hr, repeat sodium 128 on morning of 10/23. Normal saline discontinued. Okay for regular diet with no salt or fluid restriction. Will recheck sodium level at noon today and again tomorrow morning. Hydrochlorothiazide discontinued. 2. Hypertension, hyperlipidemia, history of CVA s/p carotid stenting ? Follows with vascular surgery. Had TCAR procedure with Dr. Rogel recently on10/05. Tolerated procedure well, no postoperative complications. Notably had losartan-hydrochlorothiazide added to her blood pressure regimen about 2 weeks ago by her PCP for systolic BPs running in the 170s to 180s at home. Hydrochlorothiazide discontinued as above. Continue home aspirin, Plavix, statin, amlodipine and losartan. IV hydralazine as needed ordered as well. Chronic medical conditions: ? Class II obesity: BMI 37 on admit. Complicates hospital course, care and prognosis. ? Type 2 diabetes mellitus: Treating with home Lantus 10 units at night and Humalog sliding scale insulin with meals while inpatient, adjust as needed. ? GERD: Continue home PPI. DVT prophylaxis: Lovenox CODE STATUS: DNR CCA, DNI Expected disposition: Home, 1 to 2 days Total clinical time spent by myself addressing the patient's medical issues, reviewing all the data, and collaborating with patient's care team: 35 minutes. Charges/Coding Visit Charges Inpatient E&M: 33956 Subs Hosp L2 10/23/24 1135 <Electronically signed by Familia Manriquez DO> Cosigner Signature (if applicable): CC: ~ Signed [facility] Work Phone: [phone]) [phone] Progress note [facility] Medical Records Department [address] [place] [address] Progress Note - Hospitalist 10/23/24 1011 MR#: [id number] Acct: [id number] Name: CHELSEA MOODY Rep #:[id number] : 1940 83 From: Familia anand DO PCP: Dr. Angela High MD Status:ADM I N Location: [place] [address] Reason for Visit Reason for Visit: Diagnoses Hypo-osmolality and hyponatremia (10/22/24) Subjective Subjective Saw patient at bedside this morning. Patient was sitting back comfortably in bed, conversing normally, in no acute distress. Noted that she still does not feel at her baseline but does feel improved today compared to yesterday. Does not feel nearly as confused. Feels less dehydrated as well. Deniesany pain ordiscomfort today. No other new concerns morning. Objective Data Objective Data Vital Signs: Vital Signs Temp Pulse Resp BP Pulse Ox O2 Del Method 98.0 F 84 16 149/62 H 97 Room Air 10/23/24 06:30 10/23/24 06:30 10/23/24 06:30 10/23/24 06:30 10/23/24 06:30 10/23/24 06:30 Oxygen Delivery Method Room Air Weight: 76.43 kg Body Mass Index (BMI) 37.8 Intake & Output: Intake and Output for Last 24 Hours 10/21/24 10/22/24 10/23/24 23:59 23:59 23:59 Intake Total 582.5 / 582.5 1080 / 1080 Output Total 450 / 450 1100 / 1100 Balance 132.5 / 132.5 -20 / -20 Lab / Micro Data 10/23/24 05:51 10/23/24 05:51 Labs: Laboratory Results - last 24 hr 10/22/24 18:00: WBC 14.7 H, RBC 3.73 L, Hgb 11.3 L, Hct 32.5 L, MCV 87.1, MCH 30.3, MCHC 34.8, RDW Std Deviation 40.0, RDW Coeff of Óscar 12.6, Plt Count 399, MPV 10.0, Immature Gran % (Auto) 0.600, Neut % (Auto) 77.8 H, Lymph % (Auto) 10.8 L, Pawnee % (Auto) 10.3 H, Eos % (Auto) 0.1, Baso % (Auto) 0.4, Absolute Neuts (auto) 11.4 H, Absolute Lymphs (auto) 1.59, Nucleated RBC % 0, Differential CommentSCANNED, Platelet Estimate ADEQUATE, Sodium 119 L*, Potassium 4.3, Chloride 82 L, Carbon Dioxide 20.7 L, Anion Gap 16 H, BUN 15, Creatinine 1.26 H, Estim Creat Clear Calc 30.51 L, Est GFR (MDRD) Non-Af 42 L, BUN/Creatinine Ratio 11.5, Glucose 160 H, Calcium 9.2 10/22/24 18:33: Urine Color Straw, Urine Clarity Clear, Urine pH 6.0, Ur Specific Husser 1.005, Urine Protein 15 H, Urine Glucose (UA) Normal, Urine Ketones Negative, Urine Occult Blood Negative, Urine Nitrite Negative, Urine Bilirubin Negative, Urine Urobilinogen Normal, Ur Leukocyte Esterase Negative, Urine RBC 0-5 SEEN, Urine WBC 0-5 SEEN, Ur Squamous Epith Cells 0 SEEN, Urine Bacteria 0 SEEN, Urine Mucus 0 SEEN 10/22/24 22:13: POC Glucose 199 H 10/23/24 05:51: WBC 11.0, RBC 3.62 L, Hgb 10.9 L, Hct 31.5 L, MCV 87.0, MCH 30.1, MCHC 34.6, RDW Std Deviation 40.0, RDW Coeff of Óscar 12.5, Plt Count 376, MPV 10.0, Immature Gran % (Auto) 0.800, Neut% (Auto) 72.5 H, Lymph % (Auto) 13.7 L, Pawnee % (Auto) 12.0 H, Eos % (Auto) 0.5, Baso % (Auto) 0.5, Absolute Neuts (auto) 8.0 H, Absolute Lymphs (auto) 1.51, Nucleated RBC % 0, Sodium 128 L, Potassium4.0, Chloride 94 L, Carbon Dioxide 21.8, Anion Gap 13, BUN 11, Creatinine 0.96, Estim Creat Clear Calc 39.85 L, Est GFR (MDRD) Non-Af 58 L, BUN/Creatinine Ratio 11.3, Glucose 168 H, Calcium 9.0 10/23/24 06:35: POC Glucose 170 H Physical Exam Const alert, oriented x3 and no apparent distress Constitutional Narrative: Elderly female, class II obesity, mild to moderately fatigued appearing but is A&Ox3 today and sitting back comfortably in bed, conversing normally, in no acute distress. General Appearance: cooperative and comfortable HEENT normocephalic, head/scalp atraumatic, hearing grossly normal bilaterally, nasal mucous membranes and turbinates normal and moist oral mucous membranes Eyes PERRL, EOMs intact bilaterally and conjunctivae normal Neck full ROM Chest inspection of chest normal Resp normal respiratory effort, normal air movement, no use of accessory muscles and clear to auscultation bilaterally Cardio regular rate, regular rhythm, no murmurs and peripheral pulses 2+ throughout GI normal to inspection, nondistended, normoactive bowel sounds, soft to palpation,non-tender and non-distended Back/Spine normal ROM Extremity normal to inspection, full ROM and no pedal edema Skin no rashes or lesions noted Psych mental status grossly normal Assessment & Plan Assessment/Plan (1) Acute hyponatremia: PLAN: Plan Patient is an 83-year-old female who presented to [facility] ED on 10/22/2024 with abnormal labs, weakness and mild confusion. 1. Acute hyponatremia, improving ? Sodium 119, chloride 82 on admit. Sodium level was 134 on 10/01 and baseline isaround 135. Presume secondary to hydrochlorothiazide that was initiated recently. Only mild confusion with nausea on admission, no need for hypertonic saline. Treated with IV normal saline 100 cc/hr, repeat sodium 128 onmorning of 10/23. Normal saline discontinued. Okay for regular diet with no salt or fluid restriction. Will recheck sodium level at noon today and again tomorrow morning. Hydrochlorothiazide discontinued. 2. Hypertension, hyperlipidemia, history of CVA s/p carotid stenting ? Follows with vascular surgery. Had TCAR procedure with Dr. Rogel recently on10/05. Tolerated procedure well, no postoperative complications. Notably had losartan-hydrochlorothiazide added to her blood pressure regimen about 2 weeks ago by her PCP for systolic BPs running in the 170s to 180s at home. Hydrochlorothiazide discontinued as above. Continue home aspirin, Plavix, statin, amlodipine andlosartan. IV hydralazine as needed ordered as well. Chronic medical conditions: ? Class II obesity: BMI 37 on admit. Complicates hospital course, care and prognosis. ? Type 2 diabetes mellitus: Treating with home Lantus 10 units at night and Humalog sliding scale insulin with meals while inpatient, adjust as needed. ? GERD: Continue home PPI. DVT prophylaxis: Lovenox CODE STATUS: DNR CCA, DNI Expected disposition: Home, 1 to 2 days Total clinical time spent by myself addressing the patient's medical issues, reviewing all the data, and collaborating with patient's care team: 35 minutes. Charges/Coding Visit Charges Inpatient E&M: 57005 Subs Hosp L2 10/23/24 1135 Cosigner Signature (if applicable): CC: ~ Signed [facility]05-31-2025 Discharge summary Author Jony Lambert [facility] Note Date/Time October 22, 2024 11:02 pm [facility] Medical Records Department [address] [place] [address] Emergency Department Summary 10/22/24 MR#: [id number] Acct: [id number] Name: CHELSEA MOODY Rep #:[id number] : 1940 83 From: Jony Lambert DO PCP: Dr. Angela High MD Status:ADM I N Location: [place] [address] HPI History of Present Illness Chief Complaint: Abn Labs Detail of Chief Complaint: Low-sodium Informant: patient and family Narrative Narrative: Patient presents the emergency department complaint low sodium. Patient apparently had a visit postop with Dr. Rogel after having carotid endarterectomy. She was complaining of feeling fatigued and had a difficult time swallowing so she had CT of head and neck which was unremarkable apparentlybut lab work noted she was hyponatremic with a sodium of 119. Patient is on newmedications as she had a stroke about a month ago. She is on losartan with hydrochlorothiazide. She is on aspirin and Plavix. She is on atorvastatin as well. She denies recent illness. She has had decreased urine output. Patient is eating less but still drinking fluids [facility] Medical History (Updated 10/22/24 @ 19:[address] Jony Lambert, DO) Wears glasses Wears dentures Bruising Insulin dependent diabetes mellitus High cholesterol Stroke/cerebrovascular accident History of echocardiogram History of edema CVA (cerebral vascular accident) Diabetes mellitus, type 2 Obesity (BMI 30-39.9) GERD (gastroesophageal reflux disease) Hypertension Diabetes Home Medications ?Medication ?Instructions ?Recorded ?Last Taken ?Type aspirin 81 mg chewable tablet 81 mg PO BREAKFAST SUPPL EMENT #0 09/03/24 10/22/24 Rx tabs atorvastatin 40 mg tablet 40 mg PO QHS CHOLESTEROL #30 tabs 09/03/24 10/21/24 Rx clopidogrel 75 mg tablet 75 mg PO DAILY BLOOD THINNER #30 09/03/24 10/22/24 Rx tabs insulin glargine 100 unit/mL (3 10 unit (0.1 mL) subcu t QHS 09/03/24 10/21/24 Rx mL) subcutaneous pen (Lantus DIABETES #15 mL Solostar U-100 Insulin) metformin 500 mg tablet 500 mg PO BID DIABETES #60 t abs 09/03/24 10/21/24 Rx Held on 10/06/24. Instructions: Resume on 10/08/24. losartan 50 mg-hydrochlorothiazide 1 tab PO QDAY BP 10/21/24 History 12.5 mg tablet amlodipine 5 mg tablet 5 mg PO BID 10/22/24 5 History omeprazole 40 mg capsule,delayed 40 mg PO QDAY 5 10/22/24 History release Allergy/AdvReac Type Severity Reaction Status Date / Time No Known Allergies Allergy Verified 10/22/24 17:32 Surgical History History of cholecystectomy Social History Smoking Status: Never smoker ROS ROS ED ROS Narrative Fatigue Review of Systems ROS Unobtainable: other Constitutional Constitutional ED: Reports lethargy; Denies chills, fever(s), sweats or weight loss Eyes Eyes: Denies blurry vision, change in vision or diplopia ENT ENT ED: Denies rhinorrhea or sore throat Cardiovascular Cardiovascular: Denies chest pain, orthopnea or racing heartbeat Respiratory/Chest Respiratory/Chest: Denies cough, dyspnea, dyspnea on exertion, orthopnea or sputum Gastrointestinal Gastrointestinal: Denies abdominal pain, diarrhea, nausea or vomiting Genitourinary Genitourinary ED: Denies dysuria, hematuria or urinary frequency Musculoskeletal Musculoskeletal: Denies arthralgias, back pain, myalgias or neck pain Integumentary Denies abscess, Abrasions or rash Neurologic Neurologic: Denies headache(s) or weakness Psychiatric Psychiatric: Denies anxiety, depression or suicidal thoughts Endocrine Endocrinology: Denies polydipsia, polyphagia or polyuria Hematologic/Lymphatic Hematologic/Lymphatic: Denies easy bleeding, easy bruising or lymphadenopathy Allergic/Immunologic Allergic/Immunologic ED: Denies mouth swelling, tongue swelling or urticaria EXAM Physical Exam Const Vital Signs: 10/22/24 17:19 10/22/24 17:30 Temperature 96.5 F L Temperature Source Temporal Pulse Rate 89 Respiratory Rate 18 Respiratory Effort Normal Respiratory Pattern Normal Blood Pressure 134/54 H Blood Pressure Mean 80 Pulse Ox 97 Oxygen Delivery Method Room Air Positive well nourished and well developed General Appearance ED: well developed and NAD HEENT Reports TM's clear and moist mucous membranes normocephalic and atraumatic; Negative for trauma or tenderness Tympanic Membrane ED: Yes TM's clear Eyes PERRL and EOMs intact bilaterally General Eye ED: Negative for pale conjunctiva or scleral icterus Neck no lymphadenopathy, supple and no JVD General: Negative for tenderness Chest Wall inspection of chest normal and palpation of chest normal Chest: Negative for tenderness Resp normal respiratory effort and clear to auscultation bilaterally Effort and Inspection: Negative for respiratory distress or pain with movement Auscultation: Negative for rhonchi, wheezes or diminished lung sounds Cardio regular rate, regular rhythm, S1 normal heart sound, S2 normal heart sound and no murmurs Peripheral Pulses: pulses 2+ throughout GI normal to inspection, nondistended, normoactive bowel sounds, soft to palpation,non-tender, non-distended and no masses Back/Spine no CVA tenderness and no thoracic nor lumbar tenderness Extremity Extremity Narrative: +2 edema both lower extremity General Extremety ED: Yes edema General Extremity: edema Neuro oriented x3, CN's II-XII intact bilaterally, no sensory deficits noted and gait normal Sensorium / Orientation: awake, alert, oriented to person, oriented to place andoriented to time Motor Exam: strength 5/5 throughout and strength abnormal Psych mental status grossly normal Skin no rashes or lesions noted and no wounds MDM MDM MDM Narrative Medical decision making narrative: Patient presents to the emergency department with complaint of hyponatremia withrecent surgery. Patient started few new medications since her stroke a month ago. Patient also started a diuretic medication. IV line established. EKG obtained on arrival shows sinus rhythm with rate of 85 bpm with no acute ST segment changes. CBC with differential obtained showed a white count 14.7 with hemoglobin 11.3 and platelet count of 399. Chemistry showed sodium 119 with potassium 4.3 and chloride of 82. BUN 15 creat 1.26. Case will be discussed with hospitalist to evaluate patient for admission for acute hyponatremia Lab Data Attestation: I reviewed the patient's lab results. Labs: Laboratory Results - last 24 hr 10/22/24 18:00 WBC 14.7 H RBC 3.73 L Hgb 11.3 L Hct 32.5 L MCV 87.1 MCH 30.3 MCHC 34.8 RDW Std Deviation 40.0 RDW Coeff of Óscar 12.6 Plt Count 399 MPV 10.0 Immature Gran % (Auto) 0.600 Neut % (Auto) 77.8 H Lymph % (Auto) 10.8 L Pawnee % (Auto) 10.3 H Eos % (Auto) 0.1 Baso % (Auto) 0.4 Absolute Neuts (auto) 11.4 H Absolute Lymphs (auto) 1.59 Nucleated RBC % 0 Sodium 119 L* Potassium 4.3 Chloride 82 L Carbon Dioxide 20.7 L Anion Gap 16 H BUN 15 Creatinine 1.26 H Estim Creat Clear Calc 30.51 L Est GFR (MDRD) Non-Af 42 L BUN/Creatinine Ratio 11.5 Glucose 160 H Calcium 9.2 EKG Initial EKG: Attestation: I personally reviewed and interpreted this EKG as follows: Comments: Sinus rhythm with ventricular rate of 85 bpm with no acute ST segment changes Discharge Plan Dx/Rx/DC Orders Clinical Impression: Acute hyponatremia, Weakness, Hypertension, History of stroke Disposition Disposition: Acute Care Hospital [facility] What to do if you have Problems For any increased pain, shortness of breath, bleeding, nausea or vomiting, chestpain, or any unexpected problems, contact your Primary Care Provider. Call [facility] ([phone]) or report to the closest Emergency Room. Call 911 if necessary. 10/22/242301 <Electronically signed by Jony Lambert DO> Cosigner Signature (if applicable): CC: Dr. Angela High MD ~ Signed [facility] Work Phone: [phone] History and physical note Author Axel Lockwood [facility] Note Date/Time October 22, 2024 10:19 pm [facility] Medical Records Department [address] [place] [address] H&P Exam - Hospitalist 10/22/242010 MR#: [id number] Acct: [id number] Name: CHELSEA MOODY Rep #:[id number] : 1940 83 From: Axel trujillo MD PCP: Dr. Angela High MD Status:ADM I N Location: [place] [id number] HPI - General General Date of Admission: 10/22/24 HPI Narrative CHELSEA MOODY, is a 83 F who presents to the hospital from the vascular surgeonsoffice for abnormal labs. Sodium today was 119 here in the ER which is what it was earlier this afternoon. She denies any vomiting or diarrhea but has had some nausea as well as fatigue and weakness. Family has noticed maybe slight confusion but nothing significant. No seizure-like activity. Within the last 2weeks she started a combination losartan-hydrochlorothiazide for her blood pressure. In the ER she was having difficulty voiding so she had about 400 cc on bladder scan so Lin was placed. She also has a little bit of a leukocytosis though she is afebrile, and there is no obvious signs of infection urine is clean. Her visit at the vascular surgeons office today with for postopevaluation of her right carotid stent as she had a stroke back in August. [facility] Medical History Wears glasses Wears dentures Bruising Insulin dependent diabetes mellitus High cholesterol Stroke/cerebrovascular accident History of echocardiogram History of edema CVA (cerebral vascular accident) Diabetes mellitus, type 2 Obesity (BMI 30-39.9) GERD (gastroesophageal reflux disease) Hypertension Diabetes Home Medications ?Medication ?Instructions ?Recorded ?Last Taken ?Type aspirin 81 mg chewable tablet 81 mg PO BREAKFAST SUPPL EMENT #0 09/03/24 10/22/24 Rx tabs atorvastatin 40 mg tablet 40 mg PO QHS CHOLESTEROL #30 tabs 09/03/24 10/21/24 Rx clopidogrel 75 mg tablet 75 mg PO DAILY BLOOD THINNER #30 09/03/24 10/22/24 Rx tabs insulin glargine 100 unit/mL (3 10 unit (0.1 mL) subcu t QHS 09/03/24 10/21/24 Rx mL) subcutaneous pen (Lantus DIABETES #15 mL Solostar U-100 Insulin) metformin 500 mg tablet 500 mg PO BID DIABETES #60 t abs 09/03/24 10/21/24 Rx Held on 10/06/24. Instructions: Resume on 10/08/24. losartan 50 mg-hydrochlorothiazide 1 tab PO QDAY BP 10/21/24 History 12.5 mg tablet amlodipine 5 mg tablet 5 mg PO BID 10/22/24 5 History omeprazole 40 mg capsule,delayed 40 mg PO QDAY 5 10/22/24 History release Allergy/AdvReac Type Severity Reaction Status Date / Time No Known Allergies Allergy Verified 10/22/24 17:32 Family History (Updated 10/22/24 @ 20:[address] Axel Lockwood MD) Other Diabetes Surgical History History of cholecystectomy Social History Smoking Status: Never smoker ROS Constitutional Constitutional: Reports fatigue and weakness; Denies chills, fever(s) or malaise Eyes Eyes: Denies blurry vision ENT HEENT: Denies headache(s) or nasal discharge Cardiovascular Cardiovascular: Denies chest pain, dyspnea on exertion or syncope Respiratory/Chest Respiratory/Chest: Denies cough, shortness of breath at rest or shortness of breath with exertion Gastrointestinal Gastrointestinal: Denies constipation, diarrhea, nausea or vomiting Genitourinary Genitourinary: Denies dysuria Neurologic Neurologic: Denies focal weakness, numbness or tremor(s) Psychiatric Psychiatric: Denies anxiety or depression Vital Signs Vital Signs Vital Signs: 10/22/24 17:19 10/22/24 17:30 10/22/24 19:14 Temperature 96.5 F L Temperature Source Temporal Pulse Rate 89 78 Respiratory Rate 18 Respiratory Effort Normal Respiratory Pattern Normal Blood Pressure 134/54 H 153/52 H Blood Pressure Mean 80 85 Pulse Ox 97 96 Oxygen Delivery Method Room Air Room Air 10/22/24 19:15 Temperature 96.5 F L Temperature Source Pulse Rate 80 Respiratory Rate 16 Respiratory Effort Respiratory Pattern Blood Pressure 153/52 H Blood Pressure Mean 85 Pulse Ox 97 Oxygen Delivery Method Weight Weight: 169 lb 15.622 oz Body Mass Index (BMI) 38.1 Physical Exam Narrative General: Alert, Oriented x3, Cooperative, No apparent distress HEENT: Atraumatic, PERRLA, EOMI, Normocephalic Oral: Moist Mucosa Neck: Supple, No JVD Lungs: Diminished, Normal air movement, No rhonchi, No wheeze, No rales Cardiovascular: Regular rate, Regular Rhythm, Normal S1, Normal S2, No murmurs Abdomen: Soft, Non Tender, Non-Distended, No Hepato-splenomegaly Extremities: Trace edema, Capillary Refill Less than 3 Seconds Skin: No rashes, No breakdown Musculoskeletal: No Tenderness to Palpation of Joints or Extremities Neurological: No focal neurological deficits, moves all extremities Psych/Mental Status: Normal Affect, Appropriate Results Lab / Micro Data 10/22/24 18:00 10/22/24 18:00 Labs: Laboratory Results - last 24 hr 10/22/24 18:00: WBC 14.7 H, RBC 3.73 L, Hgb 11.3 L, Hct 32.5 L, MCV 87.1, MCH 30.3, MCHC 34.8, RDW Std Deviation 40.0, RDW Coeff of Óscar 12.6, Plt Count 399, MPV 10.0, Immature Gran % (Auto) 0.600, Neut % (Auto) 77.8 H, Lymph % (Auto) 10.8 L, [place] % (Auto) 10.3 H, Eos % (Auto) 0.1, Baso % (Auto) 0.4, Absolute Neuts (auto) 11.4 H, Absolute Lymphs (auto) 1.59, Nucleated RBC % 0, Sodium 119 L*, Potassium 4.3, Chloride 82 L, Carbon Dioxide 20.7 L, Anion Gap 16 H, BUN 15,Creatinine 1.26 H, Estim Creat Clear Calc 30.51 L, Est GFR (MDRD) Non-Af 42 L, BUN/Creatinine Ratio 11.5, Glucose 160 H, Calcium 9.2 10/22/24 18:33: Urine Color Straw, Urine Clarity Clear, Urine pH 6.0, Ur Specific Husser 1.005, Urine Protein 15 H, Urine Glucose (UA) Normal, Urine Ketones Negative, Urine Occult Blood Negative, Urine Nitrite Negative, Urine Bilirubin Negative, Urine Urobilinogen Normal, Ur Leukocyte Esterase Negative, Urine RBC 0-5 SEEN, Urine WBC 0-5 SEEN, Ur Squamous Epith Cells 0 SEEN, Urine Bacteria 0 SEEN, Urine Mucus 0 SEEN Assessment & Plan Assessment/Plan (1) Acute hyponatremia: PLAN: Plan 1. Acute hyponatremia secondary to hydrochlorothiazide ? Will hold her losartan-hydrochlorothiazide ? Continue with IV fluids ? Will recheck sodium levels in the morning if no significant improvement will need to have urine electrolytes as well as urine and serum osmolalities to better assess the etiology of her hyponatremia 2. Essential HTN/HLD/status post carotid stent with history of CVA ? Continue with her Norvasc as well as her Lipitor, aspirin, Plavix ? Will monitor make adjustments as necessary ? May need to restart losartan only depending on what her blood pressure does 3. DM2 ? Continue with her Lantus ? Hold metformin ? Accu-Cheks ACHS ? Sliding scale insulin ? Will monitor make adjustments as necessary 4. GERD ? Stable ? Continue with PPI DVT: Lovenox 75 minutes was spent on direct patient care, including documentation as well as chart review and collaboration with colleagues Charges/Coding Visit Charges Inpatient E&M: 13249 Init Hosp L3 05/30/25 9612 <Electronically signed by Axel Lockwood MD> Cosigner Signature (if applicable): CC: Dr. Angela High MD; Dr. Axel Lockwood MD~ Signed [facility] Work Phone: [phone] 347-395205-30-2025 Discharge summary [facility] Medical Records Department [address] [place] [address] Emergency Department Summary 10/22/24 MR#: [id number] Acct: [id number] Name: CHELSEA MOODY Rep #:[id number] : 1940 83 From: Jony Lambert DO PCP: Dr. Angela High MD Status:ADM I N Location: [place] [address] HPI History of Present Illness Chief Complaint: Abn Labs Detail of Chief Complaint: Low-sodium Informant: patient and family Narrative Narrative: Patient presents the emergency department complaint low sodium. Patient apparently had a visit postop with Dr. Rogel after having carotid endarterectomy. She was complaining of feeling fatigued and had a difficult time swallowing so she had CT of head and neck which was unremarkable apparentlybut l ab work noted she was hyponatremic with a sodium of 119. Patient is on newmedications as she had a stroke about a month ago. She is on losartan with hydrochlorothiazide. She is on aspirin and Plavix.She is on atorvastatin as well. She denies recent illness. She has had decreased urine output. Patient is eating less but still drinking fluids [facility] Medical History (Updated 10/22/24 @ 19:[address] Jony Lambert DO) Wears glasses Wears dentures Bruising Insulin dependent diabetes mellitus High cholesterol Stroke/cerebrovascular accident History of echocardiogram History of edema CVA (cerebral vascular accident) Diabetes mellitus, type 2 Obesity (BMI 30-39.9) GERD (gastroesophageal reflux disease) Hypertension Diabetes Home Medications ?Medication ?Instructions ?Recorded ?Last Taken ?Type aspirin 81 mg chewable tablet 81 mg PO BREAKFAST SUPPL EMENT #0 09/03/24 10/22/24 Rx tabs atorvastatin 40 mg tablet 40 mg PO QHS CHOLESTEROL #30 tabs 09/03/24 10/21/24 Rx clopidogrel 75 mg tablet 75 mg PO DAILY BLOOD THINNER #30 04/11/25 05/30/25 Rx tabs insulin glargine 100 unit/mL (3 10 unit (0.1 mL) subcu t QHS 09/03/24 10/21/24 Rx mL) subcutaneous pen (Lantus DIABETES #15 mL Solostar U-100 Insulin) metformin 500 mg tablet 500 mg PO BID DIABETES #60 t abs 09/03/24 10/21/24 Rx Held on 10/06/24. Instructions: Resume on 10/08/24. losartan 50 mg-hydrochlorothiazide 1 tab PO QDAY BP 10/21/24 History 12.5 mg tablet amlodipine 5 mg tablet 5 mg PO BID 10/22/24 5 History omeprazole 40 mg capsule,delayed 40 mg PO QDAY 5 10/22/24 History release Allergy/AdvReac Type Severity Reaction Status Date / Time No Known Allergies Allergy Verified 10/22/24 17:32 Surgical History History of cholecystectomy Social History Smoking Status: Never smoker ROS ROS ED ROS Narrative Fatigue Review of Systems ROS Unobtainable: other Constitutional Constitutional ED: Reports lethargy; Denies chills, fever(s), sweats or weight loss Eyes Eyes: Denies blurry vision, change in vision or diplopia ENT ENT ED: Denies rhinorrhea or sore throat Cardiovascular Cardiovascular: Denies chest pain, orthopnea or racing heartbeat Respiratory/Chest Respiratory/Chest: Denies cough, dyspnea, dyspnea on exertion, orthopnea or sputum Gastrointestinal Gastrointestinal: Denies abdominal pain, diarrhea, nausea or vomiting Genitourinary Genitourinary ED: Denies dysuria, hematuria or urinary frequency Musculoskeletal Musculoskeletal: Denies arthralgias, back pain, myalgias or neck pain Integumentary Denies abscess, Abrasions or rash Neurologic Neurologic: Denies headache(s) or weakness Psychiatric Psychiatric: Denies anxiety, depression or suicidal thoughts Endocrine Endocrinology: Denies polydipsia, polyphagia or polyuria Hematologic/Lymphatic Hematologic/Lymphatic: Denies easy bleeding, easy bruising or lymphadenopathy Allergic/Immunologic Allergic/Immunologic ED: Denies mouth swelling, tongue swelling or urticaria EXAM Physical Exam Const Vital Signs: 10/22/24 17:19 10/22/24 17:30 Temperature 96.5 F L Temperature Source Temporal Pulse Rate 89 Respiratory Rate 18 Respiratory Effort Normal Respiratory Pattern Normal Blood Pressure 134/54 H Blood Pressure Mean 80 Pulse Ox 97 Oxygen Delivery Method Room Air Positive well nourished and well developed General Appearance ED: well developed and NAD HEENT Reports TM's clear and moist mucous membranes normocephalic and atraumatic; Negative for trauma or tenderness Tympanic Membrane ED: Yes TM's clear Eyes PERRL and EOMs intact bilaterally General Eye ED: Negative for pale conjunctiva or scleral icterus Neck no lymphadenopathy, supple and no JVD General: Negative for tenderness Chest Wall inspection of chest normal and palpation of chest normal Chest: Negative for tenderness Resp normal respiratory effort and clear to auscultation bilaterally Effort and Inspection: Negative for respiratory distress or pain with movement Auscultation: Negative for rhonchi, wheezes or diminished lung sounds Cardio regular rate, regular rhythm, S1 normal heart sound, S2 normal heart sound and no murmurs Peripheral Pulses: pulses 2+ throughout GI normal to inspection, nondistended, normoactive bowel sounds, soft to palpation,non-tender, non-distended and no masses Back/Spine no CVA tenderness and no thoracic nor lumbar tenderness Extremity Extremity Narrative: +2 edema both lower extremity General Extremety ED: Yes edema General Extremity: edema Neuro oriented x3, CN's II-XII intact bilaterally, no sensory deficits noted and gait normal Sensorium / Orientation: awake, alert, oriented to person, oriented to place andoriented to time Motor Exam: strength 5/5 throughout and strength abnormal Psych mental status grossly normal Skin no rashes or lesions noted and no wounds MDM MDM MDM Narrative Medical decision making narrative: Patient presents to the emergency department with complaint of hyponatremia withrecent surgery. Patient started few new medications since her stroke a month ago. Patient also started a diuretic medication. IV line established. EKG obtained on arrival shows sinus rhythm with rate of 85 bpm with no acute ST segment changes. CBC with differential obtained showed a white count 14.7 with hemoglobin 11.3 and platelet count of 399. Chemistry showed sodium 119 with potassium 4.3 and chloride of 82. BUN15 creat 1.26. Case will be discussed with hospitalist to evaluate patient for admission for acute hyponatremia Lab Data Attestation: I reviewed the patient's lab results. Labs: Laboratory Results - last 24 hr 10/22/24 18:00 WBC 14.7 H RBC 3.73 L Hgb 11.3 L Hct 32.5 L MCV 87.1 MCH 30.3 MCHC 34.8 RDW Std Deviation 40.0 RDW Coeff of Óscar 12.6 Plt Count 399 MPV 10.0 Immature Gran % (Auto) 0.600 Neut % (Auto) 77.8 H Lymph % (Auto) 10.8 L [place]nee % (Auto) 10.3 H Eos % (Auto) 0.1 Baso % (Auto) 0.4 Absolute Neuts (auto) 11.4 H Absolute Lymphs (auto) 1.59 Nucleated RBC % 0 Sodium 119 L* Potassium 4.3 Chloride 82 L Carbon Dioxide 20.7 L Anion Gap 16 H BUN 15 Creatinine 1.26 H Estim Creat Clear Calc 30.51 L Est GFR (MDRD) Non-Af 42 L BUN/Creatinine Ratio 11.5 Glucose 160 H Calcium 9.2 EKG Initial EKG: Attestation: I personally reviewed and interpreted this EKG as follows: Comments: Sinus rhythm with ventricular rate of 85 bpm with no acute ST segment changes Discharge Plan Dx/Rx/DC Orders Clinical Impression: Acute hyponatremia, Weakness, Hypertension, History of stroke Disposition Disposition: Acute Care Hospital [facility] What to do if you have Problems For any increased pain, shortness of breath, bleeding, nausea or vomiting, chestpain, or any unexpected problems, contact your Primary Care Provider. Call [facility] ([phone]) or report tothe closest Emergency Room. Call 911 if necessary. 10/22/24 230 Cosigner Signature (if applicable): CC: Dr. Angela High MD ~ Signed [facility]05-30-2025 History and physical note [facility] Medical Records Department [address] [place] [address] H&P Exam - Hospitalist 10/22/242010 MR#: [id number] Acct: [id number] Name: CHELSEA MOODY Rep #:[id number] : 1940 83 From: Axel trujillo MD PCP: Dr. Angela High MD Status:ADM I N Location: [place] [id number] HPI - General General Date of Admission: 10/22/24 HPI Narrative CHELSEA MOODY, is a 83 F who presents to the hospital from the vascular surgeonsoffice for abnormallabs. Sodium today was 119 here in the ER which is what it was earlier this afternoon. She denies any vomiting or diarrhea but has had some nausea as well as fatigue and weakness. Family has noticed maybe slight confusion but nothing significant. No seizure-like activity. Within the last 2weeks shestarted a combination losartan-hydrochlorothiazide for her blood pressure. In the ER she was havingdifficulty voiding so she had about 400 cc on bladder scan so Lin was placed. She also has a little bit of a leukocytosis though she is afebrile, and there is no obvious signs of infection urine is clean. Her visit at the vascular surgeons office today with for postopevaluation of her right carotid stent as she had a stroke back in August. [facility] Medical History Wears glasses Wears dentures Bruising Insulin dependent diabetes mellitus High cholesterol Stroke/cerebrovascular accident History of echocardiogram History of edema CVA (cerebral vascular accident) Diabetes mellitus, type 2 Obesity (BMI 30-39.9) GERD (gastroesophageal reflux disease) Hypertension Diabetes Home Medications ?Medication ?Instructions ?Recorded ?Last Taken ?Type aspirin 81 mg chewable tablet 81 mg PO BREAKFAST SUPPL EMENT #0 09/03/24 10/22/24 Rx tabs atorvastatin 40 mg tablet 40 mg PO QHS CHOLESTEROL #30 tabs 09/03/24 10/21/24 Rx clopidogrel 75 mg tablet 75 mg PO DAILY BLOOD THINNER #30 09/03/24 10/22/24 Rx tabs insulin glargine 100 unit/mL (3 10 unit (0.1 mL) subcu t QHS 09/03/24 10/21/24 Rx mL) subcutaneous pen (Lantus DIABETES #15 mL Solostar U-100 Insulin) metformin 500 mg tablet 500 mg PO BID DIABETES #60 t abs 09/03/24 10/21/24 Rx Held on 10/06/24. Instructions: Resume on 10/08/24. losartan 50 mg-hydrochlorothiazide 1 tab PO QDAY BP 10/21/24 History 12.5 mg tablet amlodipine 5 mg tablet 5 mg PO BID 10/22/24 5 History omeprazole 40 mg capsule,delayed 40 mg PO QDAY 5 10/22/24 History release Allergy/AdvReac Type Severity Reaction Status Date / Time No Known Allergies Allergy Verified 10/22/24 17:32 Family History (Updated 10/22/24 @ 20:[address] Axel Lockwood MD) Other Diabetes Surgical History History of cholecystectomy Social History Smoking Status: Never smoker ROS Constitutional Constitutional: Reports fatigue and weakness; Denies chills, fever(s) or malaise Eyes Eyes: Denies blurry vision ENT HEENT: Denies headache(s) or nasal discharge Cardiovascular Cardiovascular: Denies chest pain, dyspnea on exertion or syncope Respiratory/Chest Respiratory/Chest: Denies cough, shortness of breath at rest or shortness of breath with exertion Gastrointestinal Gastrointestinal: Denies constipation, diarrhea, nausea or vomiting Genitourinary Genitourinary: Denies dysuria Neurologic Neurologic: Denies focal weakness, numbness or tremor(s) Psychiatric Psychiatric: Denies anxiety or depression Vital Signs Vital Signs Vital Signs: 10/22/24 17:19 10/22/24 17:30 10/22/24 19:14 Temperature 96.5 F L Temperature Source Temporal Pulse Rate 89 78 Respiratory Rate 18 Respiratory Effort Normal Respiratory Pattern Normal Blood Pressure 134/54 H 153/52 H Blood Pressure Mean 80 85 Pulse Ox 97 96 Oxygen Delivery Method Room Air Room Air 10/22/24 19:15 Temperature 96.5 F L Temperature Source Pulse Rate 80 Respiratory Rate 16 Respiratory Effort Respiratory Pattern Blood Pressure 153/52 H Blood Pressure Mean 85 Pulse Ox 97 Oxygen Delivery Method Weight Weight: 169 lb 15.622 oz Body Mass Index (BMI) 38.1 Physical Exam Narrative General: Alert, Oriented x3, Cooperative, No apparent distress HEENT: Atraumatic, PERRLA, EOMI, Normocephalic Oral: Moist Mucosa Neck: Supple, No JVD Lungs: Diminished, Normal air movement, No rhonchi, No wheeze, No rales Cardiovascular: Regular rate, Regular Rhythm, Normal S1, Normal S2, No murmurs Abdomen: Soft, Non Tender, Non-Distended, No Hepato-splenomegaly Extremities: Trace edema, Capillary Refill Less than 3 Seconds Skin: No rashes, No breakdown Musculoskeletal: No Tenderness to Palpation of Joints or Extremities Neurological: No focal neurological deficits, moves all extremities Psych/Mental Status: Normal Affect, Appropriate Results Lab / Micro Data 10/22/24 18:00 10/22/24 18:00 Labs: Laboratory Results - last 24 hr 10/22/24 18:00: WBC 14.7 H, RBC 3.73 L, Hgb 11.3 L, Hct 32.5 L, MCV 87.1, MCH 30.3, MCHC 34.8, RDW Std Deviation 40.0, RDW Coeff of Óscar 12.6, Plt Count 399, MPV 10.0, Immature Gran % (Auto) 0.600, Neut % (Auto) 77.8 H, Lymph % (Auto) 10.8 L, [place] % (Auto) 10.3 H, Eos % (Auto) 0.1, Baso % (Auto) 0.4, Absolute Neuts (auto) 11.4 H, Absolute Lymphs (auto) 1.59, Nucleated RBC % 0, Sodium 119 L*, Potassium 4.3, Chloride 82 L, Carbon Dioxide 20.7 L, Anion Gap 16 H, BUN 15,Creatinine 1.26 H, Estim Creat Clear Calc 30.51 L, Est GFR (MDRD) Non-Af 42 L, BUN/Creatinine Ratio 11.5, Glucose 160 H, Calcium 9.2 10/22/24 18:33: Urine Color Straw, Urine Clarity Clear, Urine pH 6.0, Ur Specific Husser 1.005, Urine Protein 15 H, Urine Glucose (UA) Normal, Urine Ketones Negative, Urine Occult Blood Negative, Urine Nitrite Negative, Urine Bilirubin Negative, Urine Urobilinogen Normal, Ur Leukocyte Esterase Negative, Urine RBC 0-5 SEEN, Urine WBC 0-5 SEEN, Ur Squamous Epith Cells 0 SEEN, Urine Bacteria 0 SEEN, Urine Mucus 0 SEEN Assessment & Plan Assessment/Plan (1) Acute hyponatremia: PLAN: Plan 1. Acute hyponatremia secondary to hydrochlorothiazide ? Will hold her losartan-hydrochlorothiazide ? Continue with IV fluids ? Will recheck sodium levels in the morning if no significant improvement will need to have urine electrolytes as well as urine and serum osmolalities to better assess the etiology of her hyponatremia 2. Essential HTN/HLD/status post carotid stent with history of CVA ? Continue with her Norvasc as well as her Lipitor, aspirin, Plavix ? Will monitor make adjustments as necessary ? May need to restart losartan only depending on what her blood pressure does 3. DM2 ? Continue with her Lantus ? Hold metformin ? Accu-Cheks ACHS ? Sliding scale insulin ? Will monitor make adjustments as necessary 4. GERD ? Stable ? Continue with PPI DVT: Lovenox 75 minutes was spent on direct patient care, including documentation as well as chart review and collaboration with colleagues Charges/Coding Visit Charges Inpatient E&M: 05602 Init Hosp L3 10/22/243 Cosigner Signature (if applicable): CC: Dr. Angela High MD; Dr. Axel Lockwood MD~ Signed [facility]05-30-2025 Radiology Diagnostic study note [facility] [address], [place] [id number] CTA Head AND Neck W/ Contrast MR#: [id number] Acct: [id number] Name: CHELSEA MOODY Rep #: [id number] : 1940 F 83 From: Moreno Lee MD PCP: Dr. Angela High MD Status: REG C LI Study:CTA Head AND Neck W/ Contrast Date of E xam: 10/22/24 Exam# [id number] Ordering Dr: Eric Haro PROCEDURE: CTA HEAD AND NECK W/ CONTRAST 10/22/2024 REASON FOR EXAM: S/P R TCAR, IMPAIRED GAG REFLEX/INABILITY TO SWALL TECHNIQUE: CTA imaging of the head and neck from the aortic arch to the skull vertex with out contrast and with intravenous contrast. Multiplanar and multisequence images were obtained. CONTRAST: Isovue 370 VOLUME: 100 mL. One or more dose reduction techniques were used (e.g., Automated exposure control, adjustment of the mA and/or kV according to patient size, use of iterative reconstruction technique). RADIATION DOSE SUMMARY: CTDlvol: 44.99+ 12.46+ 20.41 mGy DLP: 1569.28 mGycm COMPARISON: None. FINDINGS: Aortic Arch: Atherosclerosis without significant stenosis. Brachiocephalic and Subclavians: Patent. RIGHT Carotid: Right CCA: Patent stent. Right ICA: Patent stent. Right ECA: LEFT Carotid: Left CCA: Atherosclerosis without hemodynamically significant stenosis. Left ICA: Atherosclerosis without hemodynamically significant stenosis. Left ECA: Vertebrals: Patent. RIGHT Vertebral: Patent. LEFT Vertebral: Patent. Anatomy: [place] anatomy is normal. Aneurysm or avm: None. Anterior cerebral arteries: Unremarkable: Middle cerebral arteries: Unremarkable. Basilar artery: Unremarkable. Posterior cerebral arteries: Unremarkable. Other major branches of the posterior circulation: Unremarkable. Other findings: Neck: Right thyroid 3.5 x 2.7 cm nodule extending into the uppermediastinum. Lungs:Bones: Degenerative changes of the spine. CT/CTA Head AND Neck W/ Contrast IMPRESSION: No acute arterial abnormalities of the head or neck. Patent right CCA/ICA stent. Large right thyroid nodule. Further characterization with ultrasound is recommended. Reading Location: [id number] CC: DAVI Green; Dr. Angela High MD ~ Recycle Worker: Signed [facility]05-30-2025 Telephone encounter Note* Telephone Encounter - Sivakumar Barrios MA - 10/22/2024 9:08 AM EDT The following approved medication requests have been transmitted electronically. Requested Prescriptions Signed Prescriptions Disp Refills omeprazole (PRILOSEC) 40 mg capsule 90 capsule 1 Sig: Take 1 capsule by mouth once daily. Sivakumar Barrios MA [facility]05-30-2025 Miscellaneous Notes* Telephone Encounter - Sivakumar Barrios MA - 10/22/2024 9:08 AM EDT The following approved medication requests have been transmitted electronically. Requested Prescriptions Signed Prescriptions Disp Refills omeprazole (PRILOSEC) 40 mg capsule 90 capsule 1 Sig: Take 1 capsule by mouth once daily. Sivakumar Barrios MA [facility] NoteHNO ID: [id number] Author: ANGELA HIGH MD Service: ? Author Type: Physician Type: Progress Notes Filed: 10/11/2024 18:42 Note Text: Reason for Visit Follow up PEDRO Tran is a 83-year-old female, with a history of CVA, presenting with post-stroke symptoms and concerns following a recent carotid stent placement. Chelsea recently underwent a carotid stent placement and is experiencing persistent drainage from the surgical site. She reports feeling yucky and notes a significant decline in her overall well-being since her CVA, stating, I don't feel like me. Prior to the CVA, she felt great and was able to perform daily activities without difficulty. Currently, she experiences generalized weakness, particularly in her legs, which limits her ability to stand for extended periods. She also reports new-onset tremors, similar to those experienced by other family members, and a decreased appetite accompanied by nausea after taking her medications. Chelsea is on multiple medications, including amlodipine, isosorbide, losartan-hydrochlorothiazide, metformin, and Lantus. She reports fluctuations in her blood pressure, with readings as low as 134/59 on 10/07. She also notes that her blood glucose levels have been higher than usual, despite being on metformin and Lantus. She was previously on glimepiride, which she reports was more effective in controlling her blood glucose levels. Chelsea denies any issues with urination and reports that her leg swelling has improved since starting losartan-hydrochlorothiazide. She also mentions difficulty swallowing due to a swollen throat, which she attributes to a recent intubation. Social History Tobacco Use Smoking status: Never Smokeless tobacco: Never Vaping Use Vaping status: Never Used Substance Use Topics Alcohol use: Yes Drug use: Never Past medical history, appointments, medications, allergies reviewed. Pertinent Lab/Diagnostic Studies are reviewed and discussed today Current Outpatient Medications: omeprazole (PRILOSEC) 40 mg capsule docosahexaenoic acid/epa (FISH OIL ORAL) atorvastatin (LIPITOR) 40 mg tablet clopidogrel (PLAVIX) 75 mg tablet metFORMIN (GLUCOPHAGE) 500 mg tablet aspirin 81 mg chewable tablet LANTUS SOLOSTAR U-100 INSULIN 100 unit/mL (3 mL) ONETOUCH DELICA PLUS LANCET 30 gauge losartan-hydroCHLOROthiazide (HYZAAR) 50-12.5 mg per tablet ONETOUCH VERIO TEST STRIPS test strip amLODIPine (NORVASC) 5 mg tablet Health Maintenance HbA1C Urine Albumin:Creatinine Ratio Dilated Retinal Exam Diabetic Foot Exam LDL Cholesterol DTaP,Tdap,Td Vaccine(1 - Tdap) Pneumococcal Vaccine: 50+(1 of 2 - PCV) Shingrix Vaccine(1 of 2) Bone Density Screening RSV Vaccine(1 - 1-dose 75+ series) Covid-19 Vaccine( season) Advance Directive Discussion@ Review Of Systems Constitutional: (+) generalized discomfort Ears/Nose/Mouth/Throat: (+) throat swelling, (+) gagging Gastrointestinal: (+) decreased appetite, (+) nausea Musculoskeletal: (+) leg weakness Neurological: (+) dizziness, (+) tremor, (+) unsteadiness Skin: (+) wound drainage Physical Exam BP 156/70 Pulse 83 Resp 16 Wt 76.4 kg (168 lb 6.4 oz) SpO2 98% GENERAL: NAD, alert and oriented. SKIN: Unremarkable, no rash or skin lesions. HEAD: Normocephalic. EYES: PERRLA, EOMI, conjunctiva clear. EARS: External ears normal, canals clear, TM's normal. NOSE/SINUSES: Nares normal. Septum midline. OROPHARYNX: Lips, mucosa, and tongue normal, good dentition. No oral lesions noted. NECK: Supple, no lymphadenopathy, normal thyroid, no carotid bruits. LUNGS: Clear to auscultation bilaterally, no wheezes/rhonchi/rales. HEART: Regular rate and rhythm, no murmurs. No ectopy. EXTREMITIES: Normal, no deformities, no skin discoloration, no edema. NEURO: Awake, alert and oriented x3, cranial nerves II-XII grossly intact, normal gait, no involuntary motions. Labs: - BUN: 40 mg/dL (mildly elevated) - GFR: 58 Assessment and Plan 1. Type 2 diabetes mellitus without complication, without long-term current use of insulin (HCC) (E11.9) Blood glucose levels are elevated but not severely. Currently managed with Metformin and Lantus 10 units daily. Continue current regimen of Metformin and Lantus 10 units daily. Monitor blood glucose levels regularly. 2. Essential (primary) hypertension (I10) Blood pressure readings have been fluctuating. Currently on Amlodipine 5 mg daily, Isosorbide dinitrate, and Losartan-HCTZ. - Discontinue Isosorbide dinitrate. - Increase Amlodipine to 5 mg BID. - Continue Losartan-HCTZ. - Monitor blood pressure readings closely. 3. 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 Potentially exacerbated by current medications. Monitor for changes in tremor with medication adjustments. 4. Difficulty in walking, not elsewhere classified (R26.2) Decreased mobility a (more content not included)...[facility] 10-11-2024 History of Present illness Narrative* Angela High MD - 10/11/2024 6:40 PM EDT Reason for Visit Follow up PEDRO Tran is a 83-year-old female, with a history of CVA, presenting with post- stroke symptoms and concerns following a recent carotid stent placement. Chelsea recently underwent a carotid stent placement and is experiencing persistent drainage from the surgical site. She reports feeling yucky and notes a significant decline in her overall well-being since her CVA, stating, I don't feel like me. Prior to the CVA, she felt great and was able to perform daily activities without difficulty. Currently, she experiences generalized weakness, particularly in her legs, which limits her ability to stand for extended periods. She also reports new-onset tremors, similar to those experienced by other family members, and a decreased appetite accompanied by nausea after taking her medications. Chelsea is on multiple medications, including amlodipine, isosorbide, losartan- hydrochlorothiazide, metformin, and Lantus. She reports fluctuations in her blood pressure, with readings as low as 134/59 on 10/07. She also notes that her blood glucose levels have been higher than usual, despite being on metformin and Lantus. She was previously on glimepiride, which she reports was more effective in controlling her blood glucose levels. Chelsea denies any issues with urination and reports that her leg swelling has improved since starting losartan-hydrochlorothiazide. She also mentions difficulty swallowing due to a swollen throat, which she attributes to a recent intubation. Social History Tobacco Use Smoking status: Never Smokeless tobacco: Never Vaping Use Vaping status: Never Used Substance Use Topics Alcohol use: Yes Drug use: Never Past medical history, appointments, medications, allergies reviewed. Pertinent Lab/Diagnostic Studies are reviewed and discussed today Current Outpatient Medications: omeprazole (PRILOSEC) 40 mg capsule docosahexaenoic acid/epa (FISH OIL ORAL) atorvastatin (LIPITOR) 40 mg tablet clopidogrel (PLAVIX) 75 mg tablet metFORMIN (GLUCOPHAGE) 500 mg tablet aspirin 81 mg chewable tablet LANTUS SOLOSTAR U-100 INSULIN 100 unit/mL (3 mL) ONETOUCH DELICA PLUS LANCET 30 gauge losartan-hydroCHLOROthiazide (HYZAAR) 50-12.5 mg per tablet ONETOUCH VERIO TEST STRIPS test strip amLODIPine (NORVASC) 5 mg tablet Health Maintenance HbA1C Urine Albumin:Creatinine Ratio Dilated Retinal Exam Diabetic Foot Exam LDL Cholesterol DTaP,Tdap,Td Vaccine(1 - Tdap) Pneumococcal Vaccine: 50+(1 of 2 - PCV) Shingrix Vaccine(1 of 2) Bone Density Screening RSV Vaccine(1 - 1-dose 75+ series) Covid-19 Vaccine( season) Advance Directive Discussion@ Review Of Systems Constitutional: (+) generalized discomfort Ears/Nose/Mouth/Throat: (+) throat swelling, (+) gagging Gastrointestinal: (+) decreased appetite, (+) nausea Musculoskeletal: (+) leg weakness Neurological: (+) dizziness, (+) tremor, (+) unsteadiness Skin: (+) wound drainage Physical Exam BP 156/70 Pulse 83 Resp 16 Wt 76.4 kg (168 lb 6.4 oz) SpO2 98% GENERAL: NAD, alert and oriented. SKIN: Unremarkable, no rash or skin lesions. HEAD: Normocephalic. EYES: PERRLA, EOMI, conjunctiva clear. EARS: External ears normal, canals clear, TM's normal. NOSE/SINUSES: Nares normal. Septum midline. OROPHARYNX: Lips, mucosa, and tongue normal, good dentition. No oral lesions noted. NECK: Supple, no lymphadenopathy, normal thyroid, no carotid bruits. LUNGS: Clear to auscultation bilaterally, no wheezes/rhonchi/rales. HEART: Regular rate and rhythm, no murmurs. No ectopy. EXTREMITIES: Normal, no deformities, no skin discoloration, no edema. NEURO: Awake, alert and oriented x3, cranial nerves II-XII grossly intact, normal gait, no involuntary motions. Labs: - BUN: 40 mg/dL (mildly elevated) - GFR: 58 Assessment and Plan 1. Type 2 diabetes mellitus without complication, without long-term current use of insulin (HCC) (E11.9) Blood glucose levels are elevated but not severely. Currently managed with Metformin and Lantus 10 units daily. Continue current regimen of Metformin and Lantus 10 units daily. Monitor blood glucose levels regularly. 2. Essential (primary) hypertension (I10) Blood pressure readings have been fluctuating. Currently on Amlodipine 5 mg daily, Isosorbide dinitrate, and Losartan-HCTZ. - Discontinue Isosorbide dinitrate. - Increase Amlodipine to 5 mg BID. - Continue Losartan-HCTZ. - Monitor blood pressure readings closely. 3. 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 Potentially exacerbated by current medications. Monitor for changes in tremor with medication adjustments. 4. Difficulty in walking, not elsewhere classified (R26.2) Decreased mobility and leg strength post-stroke. Patient reports feeling weak and unsteady. Encouraged gradual increase in physical activity as tolerated to improve strength and mobility. 5. Screening for depression (Z13.31) 6. Encounter for screening examination for other mental health and behavioral disorders (Z13.39) 7. Cerebral infarction due to unspecified occlusion or stenosis of unspecified cerebral artery (HCC) (I63.50) Recent carotid stent placement to prevent further strokes. Patient reports feeling different post-stroke, with decreased appetite and energy levels. Monitor for neurological changes and ensure adherence to prescribed medications. Voice recognition software was used to compose this office note. Please excuse any unintended typographical errors. Recording using Yogome software for draft documentation of the visit was discussed with the patient/authorized environmental marketing representative; all questions welcomed and answered. Patient/authorized environmental marketing representative agreed to proceed Angela High MD documented [facility]Day[facility] Instructions* Patient Instructions* Angela High MD - 10/11/2024 3:20 PM EDT We discussed your recent stroke and recovery: - You are experiencing shakiness, weakness in your legs, and difficulty standing for long periods. These symptoms may improve with time and increased physical activity. - You declined physical therapy but plan to work on strengthening your legs at home by going up anddown steps. Please continue to move as much as you can to build strength, even when it feels difficult. - Your appetite has decreased, and you feel nauseated after taking your medications. To support your recovery, try to include more protein in your diet, such as eggs, lean meats, or protein shakes, as this will help with healing and strength. We discussed your blood pressure: - Your blood pressure has been fluctuating. We are adjusting your medications to help stabilize it while minimizing side effects. - I have increased your Norvasc (amlodipine) to 5 mg twice daily. - I have stopped your isosorbide dinitrate (Imdur) to see if this improves your symptoms of dizziness and shakiness. - Please continue taking losartan-hydrochlorothiazide as it has been helping with leg swelling. We discussed your diabetes: - Your blood sugar levels are being monitored and are currently not concerning. Continue taking Lantus (10 units daily) and metformin as prescribed. - Keep tracking your blood sugar levels and let us know if they become consistently high or low. We discussed your throat discomfort: - Your throat remains swollen and tender, likely due to the intubation during your recent procedure. This should improve with time. Continue using the Cypro throat spray as needed for relief. We discussed your surgical site: - Your carotid stent site is healing but still has some drainage. Keep the area covered and monitorfor signs of infection, such as increased redness, swelling, or warmth. Let us know if you notice any concerning changes. Next steps: - Monitor your symptoms, including blood pressure, blood sugar, and overall strength. Let us know if you experience worsening dizziness, shakiness, or difficulty standing. - Focus on gentle exercises to rebuild strength and include more protein in your diet to support healing. - Follow up with us if your symptoms do not improve or if you have any concerns about your medications or recovery. documented in this encounterMichael Ville [id number] Discharge summary [facility] Medical Records Department [address] [place] [address] Discharge Summary 10/06/24 1257 MR#: [id number] Acct: [id number] Name: CHELSEA MOODY Rep #:[id number] : 1940 83 From: Sonali TOMLINSON PCP: Dr. Angela High MD Status:ADM I N Location: ICU ICU- Providers Date of Admission: 10/05/24 Primary Care Physician: Dr. 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 in Shipping Clerk, OR Staff, YOSVANY, Eugene Medications at Discharge Home Medications aspirin 81 mg chewable tablet 81 mg PO BREAKFAST SUPPLEMENT #0 tabs 09/03/24 atorvastatin 40 mg tablet 40 mg PO QHS CHOLESTEROL #30 tabs 09/03/24 clopidogrel 75 mg tablet 75 mg PO DAILY BLOOD THINNER #30 tabs 09/03/24 insulin glargine 100 unit/mL (3 mL) subcutaneous pen (Lantus Solostar U-100 Insulin) 10 unit (0.1 mL) subcut QHS DIABETES #15 mL 09/03/24 isosorbide dinitrate 10 mg tablet 5 mg (1/2 x 10 mg) PO TID HEART #90 tabs 09/03/24 metformin 500 mg tablet 500 mg PO BID DIABETES #60 tabs 09/03/24 Held on 10/06/24. Instructions: Resume on 10/08/24. losartan 50 mg-hydrochlorothiazide 12.5 mg tablet 1 tab PO QDAY BP 09/17/24 acetaminophen 500 mg tablet 1,000 mg (2 x 500 mg) PO Q8 7 days #0 tabs 10/06/24 amlodipine 5 mg tablet 5 mg PO DAILY 30 days #30 tabs 10/06/24 Hospital Course Summary of Care Provided Hospital Course: Chelsea Moody is an 83 y/o female who underwent R TCAR 10/05/24, the procedure was without complication and she tolerated it well. Postoperatively, she was routinely admitted to the ICU for ongoing hemodynamic and neurologic monitoring.She was hypertensive requiring a nitro drip initially postoperati vely, this was able to be weaned overnight and BPs were maintained with a few PRN doses of labetalol. This morning 5/14, increase to amlodipine 5mg daily in addition to her usual dose of losartan-HCTZ and her BPs have been satisfactory <160 systolicsince. I removed the CHITO drain online marketing director of 10/06 without issue, subsequently she had persistent oozing from this site for which I ultimately applied surgiceland placed a pressure dressing to manage. The incision site is satisfactory in appearance without hematoma. The R groin access site is without hematoma or bleeding/drainage. She has remained neurologically intact throughout admission. She has been urinating to her baseline level of urinary retention. She has ambulated to her baseline without dizziness/lightheadedness. She has been tolerating a normal diet. She reports no pain at the incision site, has not requiring anything more than PRN tylenol to manage. She has a lot of family in place to support her at home and is appropriate for discharge home today with planned outpatient follow-up on 10/22/24 as scheduled. Physical Exam Const oriented x3 and no apparent distress HEENT normocephalic, head/scalp atraumatic, hearing grossly normal bilaterally, external ears normal and external nose normal Eyes EOMs intact bilaterally General Eye: normal appearance of both eyes Neck Neck Narrative: R neck incision site with skin glue intact, no hematoma/ecchymosis/redness/drainage. CHITO drain with serosanguineous output priorto removal. Resp normal respiratory effort Cardio regular rate and regular rhythm Extremity normal to inspection Skin no rashes or lesions noted Psych mental status grossly normal, cooperative, affect normal and speech normal Appearance: grossly normal Attitude: calm and engaged Activity / Motor Behavior: appropriate eye contact Speech: normal speech Mood & Affect: euthymic mood Judgement: judgement good Weight / BMI Weight Weight: 175 lb 4.28 oz Body Mass Index (BMI) 119114.8 ABG / Lab / Microbiology Data 10/06/24 03:05 10/01/24 11:52 Laboratory: Laboratory Results - last 24 hr 10/05/24 17:03: POC Glucose 408 H 10/05/24 21:12: POC Glucose 373 H 10/06/24 03:05: WBC 14.2 H, RBC 3.45 L, Hgb 10.6 L, Hct 30.5 L, MCV 88.4, MCH 30.7, MCHC 34.8, RDW Std Deviation 43.5, RDW Coeff of Óscar 13.4, Plt Count 301, MPV 10.9, Immature Gran % (Auto) 0.600, Neut % (Auto) 80.6 H, Lymph % (Auto) 10.0 L, [place] % (Auto) 8.5, Eos % (Auto) 0.1, Baso % (Auto) 0.2, Absolute Neuts (auto) 11.4 H, Absolute Lymphs (auto) 1.41, Nucleated RBC % 0 10/06/24 09:07: POC Glucose 301 H 10/06/24 11:48: POC Glucose 208 H D/C Instructions Discharge Diet: Carb Control Diet May shower in (days): 2 Weight Bearing Status: Weight bearing as tolerated Lifting Restricted to (Lbs): 20 Lifting Restrictions: Do not lift greater than 20 pounds for 3 weeks Call your doctor if your incision/area has: Continuous Slow Oozing, Sudden Increased Bleeding, Increased Pain/ Swelling and Foul Smelling Discharge Call your doctor if you observe: Fever of 101 or Higher and Uncontrolled pain Remove Dressing in: 2 days DC O2, CPAP, BIPAP Needs Home O2 Discharge instructions: No Additional Instructions: INCISION CARE: You have a small bandage on your neck over the site from which the surgical drain was removed and over the R groin puncture site. You may remove both bandages Friday after your first shower. As long as there is no residual drainage, you may leave these sites open to air. If you do notice some contin ueddrainage, you may re-cover with a Band-Aid. Your neck incision site is covered with skin glue which will continue to protectit. The skin glue will peel/flake off on its own over the next few weeks. Please do not pick at it. You may shower Friday. It is okay for soap and water to rinse over the incision site, pat to dry. Do not submerge the incision site in water such as to take a bath or [facility] for [facility] weeks. MEDICATION INSTRUCTIONS Continue to take Aspirin 81mg daily and Plavix 75mg daily. Your blood pressures were elevated after surgery. Due to this, I increased you to Amlodipine 5mg daily which I have continued at discharge. This worked nicely to bring your blood pressure into the acceptable <160 systolic range which is where we prefer for you to be following surgery. Please continue to take your usual dose of losartan-HCTZ and isosorbide dinitrate daily. I have discontinued the carvedilol because you were not taking this at home and we did not have to give this to you here in the hospital either. Please continue to check your blood pressure every morning and every evening or any time you feel dizzy/lightheaded or have other symptoms. If your systolic blood pressure (top number) is >160, especially if you have a headache or any other symptoms, please contact either our office or your PCP as further medication adjustments may be necessary While in the hospital, you were not having any significant pain from surgery. Your pain was well controlled with Tylenol as needed. Due to this, I have not prescribed any additional pain medications.If you have increased pain once home, please call the office. Call the office at [phone] with any questions about your medications ACTIVITY INSTRUCTIONS Do not lift greater than 20 pounds for 3 weeks. Otherwise, please continue withactivity as tolerated. Do not drive until you can turn your head well enough to safely check your blindspots. FOLLOW-UP INSTRUCTIONS You are scheduled for follow-up in the office on 10/22/2024. If you need to change this appointment or have any other questions/concerns, please call the office at [phone]. Please Follow Up With: Sonali Haro PA When: 10/22/2024 Meaningful Use Info Meaningful Use Meaningful Use Diagnoses (Choose all that apply): None applicable Ischemic Stroke Statin Dosing Therapy Reference: STATIN DOSE THERAPY REFERENCE: * Patients > 75 years receive moderate or high dose statin therapy. * Patients 75 years or YOUNGER should receive HIGH intensity statin dose unless contraindicated. You will be required to document reason for non-treatment if statin daily dose does not meet guidelines. HIGH DOSE STATIN THERAPY DAILY Atorvastatin > than or = to 40 mg Rosuvastatin > than or = to 20 mg Amlodipine + Atorvastatin > than or = to 2.5/40 mg Ezetimibe + Simvastatin 10/80 mg Simvastatin 80mg Discharge Plan Admission Admit Date/Time: 10/05/24 09:30 Attending Provider: Ugo Rogel Primary Care Provider: Angela High Instructions Additional Instructions / Restrictions: INCISION CARE: You have a small bandage on your neck over the site from which the surgical drain was removed and over the R groin puncture site. You may remove both bandages Friday after your first shower. As long as there is no residual drainage, you may leave these sites open to air. If you do notice some contin ueddrainage, you may re-cover with a Band-Aid. Your neck incision site is covered with skin glue which will continue to protectit. The skin glue will peel/flake off on its own over the next few weeks. Please do not pick at it. You may shower Friday. It is okay for soap and water to rinse over the incision site, pat to dry. Do not submerge the incision site in water such as to take a bath or [facility] for 3 weeks. MEDICATION INSTRUCTIONS Continue to take Aspirin 81mg daily and Plavix 75mg daily. Your blood pressures were elevated after surgery. Due to this, I increased you to Amlodipine 5mg daily which I have continued at discharge. This worked nicely to bring your blood pressure into the acceptable <160 systolic range which is where we prefer for you to be following surgery. Please continue to take your usual dose of losartan-HCTZ and isosorbide dinitrate daily. I have discontinued the carvedilol because you were not taking this at home and we did not have to give this to you here in the hospital either. Please continue to check your blood pressure every morning and every evening or any time you feel dizzy/lightheaded or have other symptoms. If your systolic blood pressure (top number) is >160, especially if you have a headache or any other symptoms, please contact either our office or your PCP as further medication adjustments may be necessary While in the hospital, you were not having any significant pain from surgery. Your pain was well controlled with Tylenol as needed. Due to this, I have not prescribed any additional pain medications.If you have increased pain once home, please call the office. Call the office at [phone] with any questions about your medications ACTIVITY INSTRUCTIONS Do not lift greater than 20 pounds for 3 weeks. Otherwise, please continue withactivity as tolerated. Do not drive until you can turn your head well enough to safely check your blindspots. FOLLOW-UP INSTRUCTIONS You are scheduled for follow-up in the office on 10/22/2024. If you need to change this appointment or have any other questions/concerns, please call the office at [phone]. Discharge Orders/Prescriptions Prescriptions: New amlodipine 5 mg Tablet 5 mg PO DAILY 30 Days Qty: 30 0RF acetaminophen 500 mg Tablet 1,000 mg PO Q8 7 Days Qty: 0 0RF Continued losartan-hydrochlorothiazide 50-12.5 mg tablet 1 tab PO QDAY atorvastatin 40 mg Tablet 40 mg PO QHS Qty: 30 1RF aspirin 81 mg Tablet,Chewable 81 mg PO BREAKFAST Qty: 0 0RF clopidogrel 75 mg Tablet 75 mg PO DAILY Qty: 30 1RF isosorbide dinitrate 10 mg Tablet 5 mg PO TID Qty: 90 1RF insulin glargine [Lantus Solostar U-100 Insulin] 100 unit/mL (3 mL) insulin pen 10 unit subcut QHS Qty: 15 0RF Held metformin 500 mg tablet 500 mg PO BID Qty: 60 1RF Hold Instructions: Resume on 10/08/24. Discontinued amlodipine 10 mg tablet 2.5 mg PO DAILY carvedilol 12.5 mg Tablet 12.5 mg PO BIDCM Qty: 60 1RF Patient Comments: stopped taking lately because it has been making her heart race Referrals / Follow Up: Angela High MD [Primary Care Provider] - Disposition Disposition (needs filled in before D/C Order can be placed): Home, Self Care Charges/Coding Procedures Integumentary [id number]: 25071 Global Visit 10/06/24 1501 Cosigner Signature (if applicable): 10/06/24 1647 CC: DAVI Green; Dr. Angela High MD; Dr. Ugo Rogel MD~ [facility]05-14-2025 Discharge summary Author Sonali Haro [facility] Note Date/Time October 06, 2024 4:47p [facility] Medical Records Department [address] [place] [address] Discharge Summary 10/06/24 1257 MR#: [id number] Acct: [id number] Name: CHELSEA MOODY Rep #:[id number] : 1940 83 From: Sonali TOMLINSON PCP: Dr. Angela High MD Status:ADM I N Location: ICU ICU05-1 Providers Date of Admission: 10/05/24 Primary Care Physician: Dr. 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 Instructions: Resume on 10/08/24. losartan 50 mg-hydrochlorothiazide 12.5 mg tablet 1 tab PO QDAY BP 09/17/24 acetaminophen 500 mg tablet 1,000 mg (2 x 500 mg) PO Q8 7 days #0 tabs 10/06/24 amlodipine 5 mg tablet 5 mg PO DAILY 30 days #30 tabs 10/06/24 Hospital Course Summary of Care Provided Hospital Course: Chelsea Moody is an 83 y/o female who underwent R TCAR 10/05/24, the procedure was without complication and she tolerated it well. Postoperatively, she was routinely admitted to the ICU for ongoing hemodynamic and neurologic monitoring.She was hypertensive requiring a nitro drip initially postoperatively, this was able to be weaned overnight and BPs were maintained with a few PRN doses of labetalol. This morning 10/06, increase to amlodipine 5mg daily in addition to her usual dose of losartan-HCTZ and her BPs have been satisfactory <160 systolicsince. I removed the CHITO drain online marketing director of 10/06 without issue, subsequently she had persistent oozing from this site for which I ultimately applied surgiceland placed a pressure dressing to manage. The incision site is satisfactory in appearance without hematoma. The R groin access site is without hematoma or bleeding/drainage. She has remained neurologically intact throughout admission. She has been urinating to her baseline level of urinary retention. She has ambulated to her baseline without dizziness/lightheadedness. She has been tolerating a normal diet. She reports no pain at the incision site, has not requiring anything more than PRN tylenol to manage. She has a lot of family in place to support her at home and is appropriate for discharge home today with planned outpatient follow-up on 10/22/24 as scheduled. Physical Exam Const oriented x3 and no apparent distress HEENT normocephalic, head/scalp atraumatic, hearing grossly normal bilaterally, external ears normal and external nose normal Eyes EOMs intact bilaterally General Eye: normal appearance of both eyes Neck Neck Narrative: R neck incision site with skin glue intact, no hematoma/ecchymosis/redness/drainage. CHITO drain with serosanguineous output priorto removal. Resp normal respiratory effort Cardio regular rate and regular rhythm Extremity normal to inspection Skin no rashes or lesions noted Psych mental status grossly normal, cooperative, affect normal and speech normal Appearance: grossly normal Attitude: calm and engaged Activity / Motor Behavior: appropriate eye contact Speech: normal speech Mood & Affect: euthymic mood Judgement: judgement good Weight / BMI Weight Weight: 175 lb 4.28 oz Body Mass Index (BMI) 665889.8 ABG / Lab / Microbiology Data 10/06/24 03:05 10/01/24 11:52 Laboratory: Laboratory Results - last 24 hr 10/05/24 17:03: POC Glucose 408 H 10/05/24 21:12: POC Glucose 373 H 10/06/24 03:05: WBC 14.2 H, RBC 3.45 L, Hgb 10.6 L, Hct 30.5 L, MCV 88.4, MCH 30.7, MCHC 34.8, RDW Std Deviation 43.5, RDW Coeff of Óscar 13.4, Plt Count 301, MPV 10.9, Immature Gran % (Auto) 0.600, Neut % (Auto) 80.6 H, Lymph % (Auto) 10.0 L, [place]awnee % (Auto) 8.5, Eos % (Auto) 0.1, Baso % (Auto) 0.2, Absolute Neuts (auto) 11.4 H, Absolute Lymphs (auto) 1.41, Nucleated RBC % 0 10/06/24 09:07: POC Glucose 301 H 10/06/24 11:48: POC Glucose 208 H D/C Instructions Discharge Diet: Carb Control Diet May shower in (days): 2 Weight Bearing Status: Weight bearing as tolerated Lifting Restricted to (Lbs): 20 Lifting Restrictions: Do not lift greater than 20 pounds for 3 weeks Call your doctor if your incision/area has: Continuous Slow Oozing, Sudden Increased Bleeding, Increased Pain/ Swelling and Foul Smelling Discharge Call your doctor if you observe: Fever of 101 or Higher and Uncontrolled pain Remove Dressing in: 2 days DC O2, CPAP, BIPAP Needs Home O2 Discharge instructions: No Additional Instructions: INCISION CARE: You have a small bandage on your neck over the site from which the surgical drain was removed and over the R groin puncture site. You may remove both bandages Friday after your first shower. As long as there is no residual drainage, you may leave these sites open to air. If you do notice some continueddrainage, you may re-cover with a Band-Aid. Your neck incision site is covered with skin glue which will continue to protectit. The skin glue will peel/flake off on its own over the next few weeks. Please do not pick at it. You may shower Friday. It is okay for soap and water to rinse over the incision site, pat to dry. Do not submerge the incision site in water such as to take a bath or [facility] for 3 weeks. MEDICATION INSTRUCTIONS Continue to take Aspirin 81mg daily and Plavix 75mg daily. Your blood pressures were elevated after surgery. Due to this, I increased you to Amlodipine 5mg daily which I have continued at discharge. This worked nicely to bring your blood pressure into the acceptable <160 systolic range which is where we prefer for you to be following surgery. Please continue to take your usual dose of losartan-HCTZ and isosorbide dinitrate daily. I have discontinued the carvedilol because you were not taking this at home and we did not have to give this to you here in the hospital either. Please continue to check your blood pressure every morning and every evening or any time you feel dizzy/lightheaded or have other symptoms. If your systolic blood pressure (top number) is >160, especially if you have a headache or any other symptoms, please contact either our office or your PCP as further medication adjustments may be necessary While in the hospital, you were not having any significant pain from surgery. Your pain was well controlled with Tylenol as needed. Due to this, I have not prescribed any additional pain medications. If you have increased pain once home, please call the office. Call the office at [phone] with any questions about your medications ACTIVITY INSTRUCTIONS Do not lift greater than 20 pounds for 3 weeks. Otherwise, please continue withactivity as tolerated. Do not drive until you can turn your head well enough to safely check your blindspots. FOLLOW-UP INSTRUCTIONS You are scheduled for follow-up in the office on 10/22/2024. If you need to change this appointment or have any other questions/concerns, please call the office at [phone]. Please Follow Up With: Sonali Haro PA When: 10/22/2024 Meaningful Use Info Meaningful Use Meaningful Use Diagnoses (Choose all that apply): None applicable Ischemic Stroke Statin Dosing Therapy Reference: STATIN DOSE THERAPY REFERENCE: * Patients > 75 years receive moderate or high dose statin therapy. * Patients 75 years or YOUNGER should receive HIGH intensity statin dose unless contraindicated. You will be required to document reason for non-treatment if statin daily dose does not meet guidelines. HIGH DOSE STATIN THERAPY DAILY Atorvastatin > than or = to 40 mg Rosuvastatin > than or = to 20 mg Amlodipine + Atorvastatin > than or = to 2.5/40 mg Ezetimibe + Simvastatin 10/80 mg Simvastatin 80mg Discharge Plan Admission Admit Date/Time: 10/05/24 09:30 Attending Provider: Ugo Rogel Primary Care Provider: Angela High Instructions Additional Instructions / Restrictions: INCISION CARE: You have a small bandage on your neck over the site from which the surgical drain was removed and over the R groin puncture site. You may remove both bandages Friday after your first shower. As long as there is no residual drainage, you may leave these sites open to air. If you do notice some continueddrainage, you may re-cover with a Band-Aid. Your neck incision site is covered with skin glue which will continue to protectit. The skin glue will peel/flake off on its own over the next few weeks. Please do not pick at it. You may shower Friday. It is okay for soap and water to rinse over the incision site, pat to dry. Do not submerge the incision site in water such as to take a bath or go [facility]. for 3 weeks. MEDICATION INSTRUCTIONS Continue to take Aspirin 81mg daily and Plavix 75mg daily. Your blood pressures were elevated after surgery. Due to this, I increased you to Amlodipine 5mg daily which I have continued at discharge. This worked nicely to bring your blood pressure into the acceptable <160 systolic range which is where we prefer for you to be following surgery. Please continue to take your usual dose of losartan-HCTZ and isosorbide dinitrate daily. I have discontinued the carvedilol because you were not taking this at home and we did not have to give this to you here in the hospital either. Please continue to check your blood pressure every morning and every evening or any time you feel dizzy/lightheaded or have other symptoms. If your systolic blood pressure (top number) is >160, especially if you have a headache or any other symptoms, please contact either our office or your PCP as further medication adjustments may be necessary While in the hospital, you were not having any significant pain from surgery. Your pain was well controlled with Tylenol as needed. Due to this, I have not prescribed any additional pain medications. If you have increased pain once home, please call the office. Call the office at [phone] with any questions about your medications ACTIVITY INSTRUCTIONS Do not lift greater than 20 pounds for 3 weeks. Otherwise, please continue withactivity as tolerated. Do not drive until you can turn your head well enough to safely check your blindspots. FOLLOW-UP INSTRUCTIONS You are scheduled for follow-up in the office on 10/22/2024. If you need to change this appointment or have any other questions/concerns, please call the office at [phone]. Discharge Orders/Prescriptions Prescriptions: New amlodipine 5 mg Tablet 5 mg PO DAILY 30 Days Qty: 30 0RF acetaminophen 500 mg Tablet 1,000 mg PO Q8 7 Days Qty: 0 0RF Continued losartan-hydrochlorothiazide 50-12.5 mg tablet 1 tab PO QDAY atorvastatin 40 mg Tablet 40 mg PO QHS Qty: 30 1RF aspirin 81 mg Tablet,Chewable 81 mg PO BREAKFAST Qty: 0 0RF clopidogrel 75 mg Tablet 75 mg PO DAILY Qty: 30 1RF isosorbide dinitrate 10 mg Tablet 5 mg PO TID Qty: 90 1RF insulin glargine [Lantus Solostar U-100 Insulin] 100 unit/mL (3 mL) insulin pen 10 unit subcut QHS Qty: 15 0RF Held metformin 500 mg tablet 500 mg PO BID Qty: 60 1RF Hold Instructions: Resume on 10/08/24. Discontinued amlodipine 10 mg tablet 2.5 mg PO DAILY carvedilol 12.5 mg Tablet 12.5 mg PO BIDCM Qty: 60 1RF Patient Comments: stopped taking lately because it has been making her heart race Referrals / Follow Up: Angela High MD [Primary Care Provider] - Disposition Disposition (needs filled in before D/C Order can be placed): Home, Self Care Charges/Coding Procedures Integumentary 111xxx-113xx: 24141 Global Visit 10/06/24 1501 <Electronically signed by Sonali TOMLINSON> Cosigner Signature (if applicable): 10/06/24 1647 <Electronically signed by Ugo Rogel MD> CC: DAVI Green; Dr. Angela High MD; Dr. Ugo Rogel MD~ Signed [facility] Work Phone: [phone]) 387-664405-14-2025 [facility] Medical Records Department [address] [place] [address] Discharge Summary 10/06/24 1257 MR#: [id number] Acct: [id number] Name: CHELSEA MOODY Rep #: [id number] : 1940 83 From: Sonali TOMLINSON PCP: Dr. Angela High MD Status:ADM IN Location: ICU ICU05-1 Providers Date of Admission: 10/05/24 Primary Care Physician: Dr. 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 Instructions: Resume on 10/08/24. losartan 50 mg-hydrochlorothiazide 12.5 mg tablet 1 tab PO QDAY BP 09/17/24 acetaminophen 500 mg tablet 1,000 mg (2 x 500 mg) PO Q8 7 days #0 tabs 10/06/24 amlodipine 5 mg tablet 5 mg PO DAILY 30 days #30 tabs 10/06/24 Hospital Course Summary of Care Provided Hospital Course: Chelsea Moody is an 83 y/o female who underwent R TCAR 10/05/24, the procedure was without complication and she tolerated it well. Postoperatively, she was routinely admitted to the ICU for ongoing hemodynamic and neurologic monitoring. She was hypertensive requiring a nitro drip initially postoperatively, this was able to be weaned overnight and BPs were maintained with a few PRN doses of labetalol. This morning 10/06, increase to amlodipine 5mg daily in addition to her usual dose of losartan-HCTZ and her BPs have been satisfactory <160 systolic since. I removed the CHITO drain online marketing director of 10/06 without issue, subsequently she had persistent oozing from this site for which I ultimately applied surgicel and placed a pressure dressing to manage. The incision site is satisfactory in appearance without hematoma. The R groin access site is without hematoma or bleeding/drainage. She has remained neurologically intact throughout admission. She has been urinating to her baseline level of urinary retention. She has ambulated to her baseline without dizziness/lightheadedness. She has been tolerating a normal diet. She reports no pain at the incision site, has not requiring anything more than PRN tylenol to manage. She has a lot of family in place to support her at home and is appropriate for discharge home today with planned outpatient follow-up on 10/22/24 as scheduled. Physical Exam Const oriented x3 and no apparent distress HEENT normocephalic, head/scalp atraumatic, hearing grossly normal bilaterally, external ears normal and external nose normal Eyes EOMs intact bilaterally General Eye: normal appearance of both eyes Neck Neck Narrative: R neck incision site with skin glue intact, no hematoma/ecchymosis/redness/drainage. CHITO drain with serosanguineous output prior to removal. Resp normal respiratory effort Cardio regular rate and regular rhythm Extremity normal to inspection Skin no rashes or lesions noted Psych mental status grossly normal, cooperative, affect normal and speech normal Appearance: grossly normal Attitude: calm and engaged Activity / Motor Behavior: appropriate eye contact Speech: normal speech Mood Affect: euthymic mood Judgement: judgement good Weight / BMI Weight Weight: 175 lb 4.28 oz Body Mass Index (BMI) 876108.8 ABG / Lab / Microbiology Data 10/06/24 03:05 10/01/24 11:52 Laboratory: Laboratory Results - last 24 hr 10/05/24 17:03: POC Glucose 408 H 10/05/24 21:12: POC Glucose 373 H 10/06/24 03:05: WBC 14.2 H, RBC 3.45 L, Hgb 10.6 L, Hct 30.5 L, MCV 88.4, MCH 30.7, MCHC 34.8, RDW Std Deviation 43.5, RDW Coeff of Óscar 13.4, Plt Count 301, MPV 10.9, Immature Gran % (Auto) 0.600, N eut % (Auto) 80.6 H, Lymph % (Auto) 10.0 L, [place] % (Auto) 8.5, Eos % (Auto) 0.1, Baso % (Auto) 0.2, Absolute Neuts (auto) 11.4 H, Absolute Lymphs (auto) 1.41, Nucleated RBC % 0 10/06/24 09:07: POC Glucose 301 H 10/06/24 11:48: POC Glucose 208 H D/C Instructions Discharge Diet: Carb Control Diet May shower in (days): 2 Weight Bearing Status: Weight bearing as tolerated Lifting Restricted to (Lbs): 20 Lifting Restrictions: Do not lift greater than 20 pounds for 3 weeks Call your doctor if your incision/area has: Continuous Slow Oozing, Sudden Increased Bleeding, Increased Pain/ Swelling and Foul Smelling Discharge Call your doctor if you observe: Fever of 101 or Higher and Uncontrolled pain Remove Dressing in: 2 days DC O2, CPAP, BIPAP Needs Home (more content not included)...[facility]05-13-2025 Consult note Author Abhilash Serrano [facility] Note Date/Time October 05, 2024 2:04p [facility] Medical Records Department [address] [place] [address] Anesthesia Postop Eval II 10/05/24 1403 MR#: [id number] Acct: [id number] Name: CHELSEA MOODY Rep #:[id number] : 1940 83 From: Abhilash Rousseau PCP: Dr. Angela High MD Status:ADM I N Y Race: C Location: ICU ICU05 - Anesthesia Postop Eval I Sum Postop Eval Completion status Anesthesia document: Postop Eval 1 completed: Yes Anesthesia Postop Eval I Summary Anesthesia Postop Eval I Summary: Anesthesia Postop Eval I: Assessment Summary Airway patent Yes 10/05/24 10:30 [email or web address] Spontaneous unlabored Yes 10/05/24 10:30 [email or web address] respirations Mental status Awake,Calm 10/05/24 10:30 [email or web address] nausea No 10/05/24 10:30 [email or web address] Vomiting No 10/05/24 10:30 [email or web address] Anesthesia Postop Eval I: Fluid Summary Crystalloid volume administer 1,500 10/05/24 10:30 [email or web address] (ml) Colloids volume administered ( ml) Blood Product volume administered (ml) Total IV fluid infused 1,500 10/05/24 10:30 [email or web address] Anesthesia Postop Eval I: Summary Notes Anesthesia Complication No 10/05/24 10:30 [email or web address] Anesthesia Complication Comment: Post-operative progress note Anesthesia: Postop Eval II Evaluation Mental status: Awake and Calm Pain Level: 3 nausea: No Vomiting: No Progress Note Post-operative progress note: Patient transferred to the ICU on 10 mcg/min nitroglycerin. meeting SBP goals Complications Anesthesia Complication: No 10/05/24 1404 <Electronically signed by Abhilash Serrano MD> Date _ Abhilash Serrano MD Cosigner Signature: Date CC: ~ Signed [facility] Work Phone: 1(832) 727-494305-13-2025 Procedure note [facility] Medical Records Department [address] [place] [address] Operative Report 10/05/24 0943 MR#: [id number] Acct: [id number] Name: CHELSEA MOODY Rep #:[id number] : 1940 83 From: Ugo Rogel MD PCP: Dr. Angela High MD Status:ADM I N Location: ICU [place] [address] Operative Report (Standard) Operative Information Date of Procedure: 10/05/24 Pre-Operative Diagnosis: right carotid stenosis Post-Operative Diagnosis: same Surgery/Procedure Performed: right carotid stent, trans carotid insect control aide: Yes Sales Hunter: Ingrid Rodríguez Tasks completed by first assistant: Opening, Closing, Opening & closing, Hemostasis: Electrocautery and Retracting Type of Anesthesia: General RN Documented Start/Stop Times: Operation Date: 10/05/24 07:15 Case Time Into Pre-Op 10/05/24 05:32 Out of Pre-Op 10/05/24 07:21 Into Recovery 10/05/24 10:05 Out of Recovery 10/05/24 11:46 Procedure Start Time: 08:30 Procedure Stop Time: 09:45 Select all DRAINS/GRAFTS/IMPLANTS that apply: Implanted device Implanted device details: 9-7 x 40 En Route stent Estimated Blood Loss: 19 Specimen collected: No Description of surgery: HPI: Patient is an 83-year-old female with symptomatic right internal carotid artery stenosis who presents now for carotid artery stenting via transcarotid access. Description of procedure: Upon obtaining informed consent and verification correct patient procedure site the patient was taken to the Shipping Clerk where she was placed under general anesthesia. She was then positioned prepped and drapedin usual sterile fashion a time was performed. Oblique incision was made over the anterior border the sternocleidomastoid at the clavicle and Bovie used to dissect down through subcutaneous tissue to the level of the platysma. The platysma was divided and self-retaining retractors put in position then further dissection carried down to the sternocleidomastoid. Thecleft between the sternal clavicular heads was then identified and dissected with Bovie and self-retaining retractor moved deeper into the wound. Once the carotid sheath was visualized sharp dissection was used to dissect free the anterior border the jugular vein was then retracted laterally exposing the common carotid artery. Sharp dissection was then used to dissect free the proximally and a right angle used to place a vessel loop. A 5-0 Prolene pursestring was then placed at the intended access site and the patient was heparinized and allowed to circulate for 3 minutes with subsequent heparin dosing based on ACT results. Next under ultrasound guidance the right common femoral vein was accessed with a micropuncture needle wire which was then exchanged for micropuncture sheath. Through the micropuncture sheath a J wire was advanced and the micropuncture sheath exchanged for the 8 Guyanese venous return sheath. Next the common carotidartery was accessed in antegrade fashion with a micropuncture needle wire exchanged for micropuncture sheath. Through the micropuncture sheath hand-inject ion subtraction angiography of the carotid was performed revealing satisfactory position with no extravasation or dissection. This also confirmed the location of the carotid bifurcation which was then marked to guide wire and catheter advancement. Through the micropuncture sheath a J-wire was advanced the micropuncture sheath exchanged for the silk Road flow reversal sheath which was advanced without resistance. The flow reversal tubing was then attached first to the arterial sheath and then tothe venous sheath with adequate flow reversal confirmed. The proximal common carotid artery was then occluded with Vesseloops and multiple oblique view subtraction angiography was performed confirming lesion position as well as adequate sheath tip position. Through thearterial sheath a silk Road angioplasty balloon 4.5 x 35 was advanced centered on the lesion and inflated at nominal for 20 seconds then deflated withdrawn. Next an en route tapered 9 to 7 x 40 stent was advanced centered on the lesion and deployed. 2 minutes of flow reversal was then performed after which completion angiographywas performed revealing satisfactory stent position with no extravasation or dissection, no residual stenosis, and no plaque prolapse. The vessel loop was then released and additional minute of flow reversal performed after which the flow reversal tubing was detached and blood return viathe venous sheath. The femoral vein sheath then withdrawn and manual pressure held for 10 minutes until hemostasis was obtained. The carotid sheath also was withdrawn and the pursestring suture secured with satisfactory stasis noted. Heparin was then reversed with protamine and the incision inspected for hemostasis. Keena topical hemostatic was applied and a 19 Guyanese channel CHITO placed via separate stab incision. The incision was then closed with 3-0 Vicryl, 4-0 Monocryl and Dermabond for the skin. At theconclusion of the case the patient was awake from anesthesia moving all extremities to command and creatinine was intact. Patient was then taken to the recovery room with anticipated admission to theintensive care unit for hemodynamic and neurologic monitoring. Surgical Findings: see above Complications Complications: No 10/05/24 1430 Cosigner Signature (if applicable): CC: Dr. Angela High MD; Dr. Ugo Rogel MD~ Signed [facility]05-13-2025 Consult note [facility] Medical Records Department [address] [place] [address] Anesthesia Postop Eval II 10/05/24 1403 MR#: [id number] Acct: [id number] Name: CHELSEA MOODY Rep #:[id number] : 1940 83 From: Abhilash Rousseau PCP: Dr. Angela High MD Status:ADM I N Y Race: C Location: ICU ICU05 - Anesthesia Postop Eval I Sum Postop Eval Completion status Anesthesia document: Postop Eval 1 completed: Yes Anesthesia Postop Eval I Summary Anesthesia Postop Eval I Summary: Anesthesia Postop Eval I: Assessment Summary Airway patent Yes 10/05/24 10:30 [email or web address] Spontaneous unlabored Yes 10/05/24 10:30 [email or web address] respirations Mental status Awake,Calm 10/05/24 10:30 [email or web address] [email or web address] nausea No 10/05/24 10:30 [email or web address] Vomiting No 10/05/24 10:30 [email or web address] Anesthesia Postop Eval I: Fluid Summary Crystalloid volume administer 1,500 10/05/24 10:30 [email or web address] (ml) Colloids volume administered ( ml) Blood Product volume administered (ml) Total IV fluid infused 1,500 10/05/24 10:30 [email or web address] Anesthesia Postop Eval I: Summary Notes Anesthesia Complication No 10/05/24 10:30 [email or web address] Anesthesia Complication Comment: Post-operative progress note Anesthesia: Postop Eval II Evaluation Mental status: Awake and Calm Pain Level: 3 nausea: No Vomiting: No Progress Note Post-operative progress note: Patient transferred to the ICU on 10 mcg/min nitroglycerin. meeting SBP goals Complications Anesthesia Complication: No 10/05/24 1404 > Date _ Abhilash العراقي Signature: Date CC: ~ Signed [facility]05-13-2025 Consult note Author Araceli Morejon [facility] Note Date/Time October 05, 2024 10:30 am [facility] Medical Records Department [address] [place] [address] Anesthesia Postop Eval I 10/05/24 1010 MR#: [id number] Acct: [id number] Name: CHELSEA MOODY Rep #:[id number] : 1940 83 From: Araceli Morejon PCP: Dr. Angela High MD Status:ADM I N Y Race: C Location: ICU ICU Anesthesia: Postop Eval I Current Vital Signs Temperature: 97.4 F Pulse Rate: 80 Blood Pressure: 155/50 Respiratory Rate: 16 Pulse Ox: 97 Oxygen Delivery Method: Nasal Cannula Oxygen Flow Rate (L/min): 2 Assessment Airway patent: Yes Spontaneous unlabored respirations: Yes Mental status: Awake and Calm nausea: No Vomiting: No Anesthesia Complication: No Fluid Hydration Crystalloid volume administer (ml): 1,500 Total IV fluid infused: 1,500 Progress Note Anesthesia document: Postop Eval 1 completed: Yes 10/05/24 1030 <Electronically signed by Araceli Morejon > Date _ Araceli العراقي Signature: Date CC: ~ Signed [facility] Work Phone: 1(187) 228-742905-13-2025 Consult note [facility] Medical Records Department [address] [place] [address] Anesthesia Postop Eval I 10/05/24 1010 MR#: [id number] Acct: [id number] Name: CHELSEA MOODY Rep #:[id number] : 1940 83 From: Araceli Morejon PCP: Dr. Angela High MD Status:ADM I N Y Race: C Location: ICU ICU - Anesthesia: Postop Eval I Current Vital Signs Temperature: 97.4 F Pulse Rate: 80 Blood Pressure: 155/50 Respiratory Rate: 16 Pulse Ox: 97 Oxygen Delivery Method: Nasal Cannula Oxygen Flow Rate (L/min): 2 Assessment Airway patent: Yes Spontaneous unlabored respirations: Yes Mental status: Awake and Calm nausea: No Vomiting: No Anesthesia Complication: No Fluid Hydration Crystalloid volume administer (ml): 1,500 Total IV fluid infused: 1,500 Progress Note Anesthesia document: Postop Eval 1 completed: Yes 10/05/24 1030 > Date _ Araceli العراقي Signature: Date CC: ~ Signed [facility]05-13-2025 History and physical note Author Ugo Rogel [facility] Note Date/Time October 05, 2024 7:25a m [facility] Medical Records Department [address] [place] [address] History & Physical Exam 10/05/24 0725 MR#: [id number] Acct: [id number] Name: CHELSEA MOODY Rep #:[id number] : 1940 83 From: Ugo Rogel MD PCP: Dr. Angela High MD Status:ADM I N Location: [place] [address] History and Physical Allergies No Known Allergies Allergy (Verified 08/31/24 19:32) Medications ?Medication ?Instructions ?Recorded ?Confirmed ?Type aspirin 81 mg chewable tablet 81 mg PO BREAKFAST #0 tabs 09/03/24 04/2 10/17 Rx atorvastatin 40 mg tablet 40 mg PO QHS #30 tabs 09/03/24 09/17/24 Rx carvedilol 12.5 mg tablet 12.5 mg PO BIDCM #60 tabs 09/03/2409/17 Rx clopidogrel 75 mg tablet 75 mg PO DAILY #30 tabs 09/03/24 5 Rx insulin glargine 100 unit/mL (3 10 unit (0.1 mL) subcut QHS #15 mL 09/0309/17/24 Rx mL) subcutaneous pen (Lantus Solostar U-100 Insulin) isosorbide dinitrate 10 mg tablet 5 mg (1/2 x 10 mg) PO TID #90 tabs 09/03 Rx metformin 500 mg tablet 500 mg PO BID #60 tabs 09/03/24 09/17/24 Rx amlodipine 10 mg tablet 2.5 mg PO DAILY 09/17/24 History losartan 50 mg-hydrochlorothiazide 1 tab PO QDAY 09/17/24 09/17/24 History 12.5 mg tablet Is last menstrual period known: No Post menopausal: Yes Patient : No Have you fallen in the past year?: Yes [facility] Medical History CVA (cerebral vascular accident) Diabetes mellitus, type 2 Obesity (BMI 30-39.9) GERD (gastroesophageal reflux disease) Hypertension Diabetes Social History Smoking Status: Never smoker HPI HPI HPI: CHELSEA MOODY, is a 83 F who presents to the office today for hospital follow- upfrom CVA. On 08/31/24, she presented to the [facility] ER with binocular vision darkeningand presyncope; she was found to be very hypertensive with systolics into the 260s. She underwent workup for stroke including Brain MRI which was positive forR frontal punctate infarct, Head/Neck CTA which showed significant R ICA stenosis 75% by NASCET, and carotid duplex confirming >70% R ICA stenosis. We were consulted in the hospital and plan was for outpatient carotid intervention with goal of improved blood pressure control prior to surgery. Prior to hospitalization, she had been only on metoprolol at home; at discharge she was on amlodipine, carvedilol, and isosorbide mononitrate with pressures 140-180. She reports that her blood pressure has been 170s-180s at home. She was just to her PCP today who made some further BP medication adjustments with addition of losartan-HCTZ. Otherwise, she has not had any recurrent stroke symptoms. She reports no other significant medical changes in the interval since her hospitalization. ROS General General: Yes fatigue and weakness; No weight change, appetite, colon cancer or breast cancer HEENT HEENT: No difficulty swallowing, eye injury, eye surgery, swollen glands or hoarseness Endo Endocrine: Yes diabetes mellitus; No thyroid disease, thyroid cancer, Hair loss, heat intolerance or cold intolerance Skin Skin: No rash or changing moles Musc Musculoskeletal: No back problems, arthritis, rheumatoid arthritis, gout or joint pain Cardio Cardiovascular: Yes high blood pressure and shortness of breath with exertion; No murmur, pacemaker, heart disease, atrial fibrillation, heart attack, heart stent, palpitations or chest pain Psych Psychiatric: No depression, anxiety or hearing voices Resp Respiratory: No shortness of breath, No sleep apnea, No cough, No COPD, No asthma, No emphysema and No wheezing Gastro Gastrointestinal: No abdominal pain, No nausea or vomiting, Yes diarrhea, No constipation, No blood in stool, No acid reflux, No hemorrhoids, No ulcers, No gallbladder problem and No black,tarry stools Donald Hematologic: Yes blood thinners, No blood disorders, No bleeding, No anemia and No blood clots Additional Details: plavixs Neuro Neurologic: No system reviewed and no additional complaints, except as documented, No as per HPI, No abnormal gait, Yes abnormal hearing, No abnormal movements, No abnormal speech, No behavioral changes, No burning sensations, No confusion, No convulsions, Yes disequilibrium, No dizziness, No localized weakness, No frequent falls, No headache(s), Yes lack of coordination, No loss of vision, No memory loss, No numbness, No other visual disturbances, No radicular pain, No restless legs, No sensory deficit, No syncope, No tingling, No tremor(s), Yes weakness and Yes other (tightness around face about 1 year ) Exam Const General: cooperative, comfortable and no acute distress Orientation: alert, awake and oriented x3 HENMT Head: normal to inspection, normocephalic and atraumatic Ears: hearing grossly normal bilaterally and external ears normal Nose: external nose normal Eyes General: appearance normal, both eyes and all related structures EOM: EOM intact bilaterally Neck Neck: normal visual inspection and trachea midline Resp Effort & Inspection: normal respiratory effort, able to speak in complete sentences, no grunting, not labored, no respiratory distress and no retractions Auscultation: clear to auscultation bilaterally Cardio Rate: regular rate Rhythm: regular rhythm Pulses: radial pulses present Skin General: no rashes or lesions noted Wounds: no wounds Neuro General: moves all extremities and no focal motor deficits Speech: speech normal Psych Appearance: grossly normal Mental Status: mental status grossly normal Affect: normal affect Speech and Movement: speech and movement normal Attitude: cooperative Judgment: judgment good Coding Level of Care Code Off vis,est,level 3 Diagnoses Stenosis of right carotid artery I65.21 Assessment and Plan Assessment and Plan (1) Stenosis of right carotid artery: Status: Acute Plan -right TCAR 10/05/24 0725 <Electronically signed by Ugo Rogel MD> Cosigner Signature (if applicable): CC: Dr. Angela High MD; Dr. Ugo Rogel MD~ Signed [facility] Work Phone: 1(748) 341-365405-13-2025 Consult note Author Abhilash Serrano [facility] Note Date/Time October 05, 2024 6:49a m [facility] Medical Records Department [address] [place] [address] Pre-Anesthesia Evaluation 10/05/24 0639 MR#: [id number] Acct: [id number] Name: CHELSEA MOODY Rep #:[id number] : 1940 83 From: Abhilash Rousseau PCP: Dr. Angela High MD Status:ADM I N Y Race: C Location: [facility]- ASA Classification* ASA Classification ASA Classification: 3 Assessment & Plan Anesthesia* Anesthesia Assessment Anesthesia Assessment: Discussed sedation and/or anesthesia options, risks, benefits, and alternatives with patient/parents/legal guardian/POA. Questions invited. The patient/parents/legal guardian/POA seems to understand and agrees to proceedwith anesthesia plan. Reviewed the physical assessment, medical history, allergy history and patient home medications list prior to surgery/procedure/anesthetic and documented any changes. Performed airway and anesthesia risk assessments. Anesthesia Type Anesthesia Type: General History Source History Obtained from:: Patient and Chart Anesthesia Focused Assessment* Temperature: 97.6 F Pulse Rate: 98 Blood Pressure: 154/52 Respiratory Rate: 18 Pulse Ox: 99 Oxygen Delivery Method: Room Air Airway Assessment Mouth opens: >3 cm Mallampati Score: III Teeth Condition: Dentures and Full Focused Labs Anesthesia Preop lab: CBC WBC 8.9 K/mm3 (4.4-11.0) 10/01/24 11:10/01/24 RBC 4.00 M/mm3 (4.2-5.4) L 10/01/24 11:10/01/24 Hgb 12.1 g/dL (12.0-15.0) 10/01/24 11:10/01/24 Hct 36.3 % (37-47) L 10/01/24 11:10/01/24 Plt Count 321 K/mm3 (150-450) 10/01/24 11:10/01/24 CHEMISTRY Potassium 4.6 mmol/L (3.3-5.1) 10/01/24 11:10/01/24 Sodium 134 mmol/L (133-145) 10/01/24 11:10/01/24 BUN 18 mg/dL (4-19) 10/01/24 11:10/01/24 Creatinine 1.22 mg/dL (0.70-1.20) H 10/01/24: Glucose 231 mg/dL (70-99) H 10/01/24 11:10/01/24 POC Glucose 176 mg/dL (74-106) H 09/03/24 08:24 09/03/24 TSH 2.070 uIU/mL (0.300-4.200) 08/31/24 23:19 0401/17 COAG Pre-Assessment Diagnosis/Proposed Procedure Planned Operative Procedure(s): RIGHT CAROTID STENT Anesthesia History Anesthesia History - hand glass cutter: Anesthesia History - hand glass cutter Hx Hospitalization Yes: AT [facility]- STROKE 09/23/24 11:46 Any Problems With Anesthesia No 09/23/24 11:46 Cholinesterase deficiency No 09/23/24 11:46 You/Your Family Experience No 09/23/24 11:46 fever (hyperthermia) with Relationship Recent Exposure to Contagious No 10/05/24 05:50 Disease Does patient have nerve No 09/23/24 11:46 stimulator Patient instructed to have device shut off --Does patient have Pacemaker No 10/05/24 05:50 or ICD? When Was Last Pacemaker Check QUESTION #4 FULL TEXT: You/Your Family Experience fever (hyperthermia) with Anesthesia Last Oral Intake Last Oral intake: Last Oral Intake NPO since 04:45 10/05/24 05:50 Meds taken in AM with sips of Yes 10/05/24 05:50 water? Meds patient instructed to take am of surgery PONV PONV - hand glass cutter: PONV - hand glass cutter Female Yes 09/23/24 11:46 HX of Motion Sickness No 09/23/24 11:46 HX of N/V After Surgery No 09/23/24 11:46 Non-Smoker Yes 09/23/24 11:46 Duration of Surgery greater No 09/23/24 11:46 than 60 minutes Number of Risk Factors 2 09/23/24 11:46 PONV Score Moderate Risk 09/23/24 11:46 Height & Weight Height & Weight: Anesthesia: Height & Weight Height 4 ft 8 in 10/05/24 05:50 Weight: 77.8 kg 10/05/24 05:50 Body Mass Index (BMI) 38.4 10/05/24 05:50 Respiratory Assessment Respiratory Assessment - hand glass cutter: Respiratory Tract Infection Hx - hand glass cutter Hx Respiratory Tract Infection No 09/23/24 11:46 STOP Sleep Apnea STOP Sleep Apnea - hand glass cutter: STOP Sleep Apnea - hand glass cutter Hx Hypertension Yes 09/23/24 11:46 Hx Sleep Apnea No 09/23/24 11:46 CPAP BIPAP Do you snore loudly (louder No 09/23/24 11:46 than talking or can be heard Do you often feel tired/ No 09/23/24 11:46 fatigued/ sleepy during daytime? Has anyone observed you stop No 09/23/24 11:46 breathing during sleep? STOP Results Negative 09/23/24 11:46 QUESTION #5 FULL TEXT : Do you snore loudly (louder than talking or can be heard through closed doors)? 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 Specify any problems Hx of Preganancy in last 3 No 09/23/24 11:46 Months Nurse Filling Out [place]fusion [facility] 09/23/24 11:46 & Questions: Date: 09/23/24 09/23/24 11:46 Time: 11:53 09/23/24 11:46 Patient unable to answer at this time (ie. confused, unrespo /Reproduction History /Reproductive History - hand glass cutter: /Reproductive Hx- hand glass cutter Hx Now No 09/23/24 11:46 Gestational Age (in weeks): EDC: Hx Hx Para Hx Section SAB No 09/23/24 11:46 Active Medications Active Medications: Current Medications Generic Name Dose Route Start Last Admin Trade Name Freq PRN Reason Stop Dose Admin Cefazolin Sodium 2 gm/ Sodium 110 mls @ 150 mls/hr 10/05/24 07:00 Chloride IV 10/05/24 07:43 INTRAOP ONE Lactated Ringer's 1,000 mls @ 15 mls/hr 10/05/24 05:45 10/05/24 05:50 IV 15 mls/hr .Q48H PATIENCE Administration PFSH Medical History Wears glasses Wears dentures Bruising Insulin dependent diabetes mellitus High cholesterol Stroke/cerebrovascular accident History of echocardiogram History of edema CVA (cerebral vascular accident) Diabetes mellitus, type 2 Obesity (BMI 30-39.9) GERD (gastroesophageal reflux disease) Hypertension Diabetes Home Medications ?Medication ?Instructions ?Recorded ?Last Taken ?Type aspirin 81 mg chewable tablet 81 mg PO BREAKFAST SUPPL EMENT #0 09/03/24 10/04/24 Rx tabs atorvastatin 40 mg tablet 40 mg PO QHS CHOLESTEROL #30 tabs 09/03/24 10/04/24 22:00 Rx carvedilol 12.5 mg tablet 12.5 mg PO BIDCM BP #60 tabs 09/03/24 09/27/24 Rx clopidogrel 75 mg tablet 75 mg PO DAILY BLOOD THINNER #30 09/03/24 10/04/24 09:00 Rx tabs insulin glargine 100 unit/mL (3 10 unit (0.1 mL) subcu t QHS 09/03/24 10/04/24 22:00 Rx mL) subcutaneous pen (Lantus DIABETES #15 mL Solostar U-100 Insulin) isosorbide dinitrate 10 mg tablet 5 mg (1/2 x 10 mg) P O TID HEART 09/03/24 10/05/24 04:45 Rx #90 tabs metformin 500 mg tablet 500 mg PO BID DIABETES #60 t abs 09/03/24 10/04/24 22:00 Rx amlodipine 10 mg tablet 2.5 mg PO DAILY HYPERTENSION 09/17/24 10/05/24 04:45 History losartan 50 mg-hydrochlorothiazide 1 tab PO QDAY BP 10/04/24 09:00 History 12.5 mg tablet Allergy/AdvReac Type Severity Reaction Status Date / Time No Known Allergies Allergy Verified 10/05/24 06:16 Surgical History History of cholecystectomy Social History Smoking Status: Never smoker Prior Cardiac Testing/Procedures Prior Cardiac Testing/Procedures: Echocardiogram (EF 70% diastolic grade one dysfunction) Addt'l Information Additional Findings: EKG reviewed, NSR. Review of Systems (Anesthesia) ROS Narrative System reviewed and no additional complaints, except as documented. Physical Exam Const alert and oriented x3 HEENT Teeth and Gingiva: dentures Resp normal respiratory effort Cardio regular rate Neuro oriented x3 and moves all extremities 10/05/24 0649 <Electronically signed by Abhilash Serrano MD> Date _ Abhilash Serrano MD Cosigner Signature: Date CC: ~ Signed [facility] Work Phone: 1(471) 730-549505-13-2025 History and physical note [facility] Medical Records Department [address] [facility] [place] [address] History & Physical Exam 10/05/24 0725 MR#: [id number] Acct: [id number] Name: CHELSEA MOODY Rep #:[id number] : 1940 83 From: Ugo Rogel MD PCP: Dr. Angela High MD Status:ADM I N Location: [place] [address] History and Physical Allergies No Known Allergies Allergy (Verified 08/31/24 19:32) Medications ?Medication ?Instructions ?Recorded ?Confirmed ?Type aspirin 81 mg chewable tablet 81 mg PO BREAKFAST #0 tabs 09/03/242 10/17 Rx atorvastatin 40 mg tablet 40 mg PO QHS #30 tabs 09/03/24 09/17/24 Rx carvedilol 12.5 mg tablet 12.5 mg PO BIDCM #60 tabs 09/03/2409/17 Rx clopidogrel 75 mg tablet 75 mg PO DAILY #30 tabs 09/03/24 5 Rx insulin glargine 100 unit/mL (3 10 unit (0.1 mL) subcut QHS #15 mL 09/0309/17/24 Rx mL) subcutaneous pen (Lantus Solostar U-100 Insulin) isosorbide dinitrate 10 mg tablet 5 mg (1/2 x 10 mg) PO TID #90 tabs 09/03 Rx metformin 500 mg tablet 500 mg PO BID #60 tabs 09/03/24 09/17/24 Rx amlodipine 10 mg tablet 2.5 mg PO DAILY 09/17/24 History losartan 50 mg-hydrochlorothiazide 1 tab PO QDAY 09/17/24 09/17/24 History 12.5 mg tablet Is last menstrual period known: No Post menopausal: Yes Patient : No Have you fallen in the past year?: Yes [facility] Medical History CVA (cerebral vascular accident) Diabetes mellitus, type 2 Obesity (BMI 30-39.9) GERD (gastroesophageal reflux disease) Hypertension Diabetes Social History Smoking Status: Never smoker HPI HPI HPI: CHELSEA MOODY, is a 83 F who presents to the office today for hospital follow- upfrom CVA. On 08/31/24, she presented to the [facility] ER with binocular vision darkeningand presyncope; she was found to be very hypertensive with systolics into the 260s. She underwent workup for stroke including Brain MRI which was positive forR frontal punctate infarct, Head/Neck CTA which showed significant R ICA % by NASCET, and carotid duplex confirming >70% R ICA stenosis. We were consulted in the hospital and plan was for outpatient carotid intervention with goal of improved blood pressure control prior to surgery. Prior to hospitalization, she had been only on metoprolol at home; at discharge she was on amlodipine, carvedilol, and isosorbide mononitrate with pressures 140-180. She reports that her blood pressure has been 170s-180s at home. She was just to her PCP today who made some further BP medication adjustments with addition of losartan-HCTZ. Otherwise, she has not had any recurrent stroke symptoms. She reports no other significant medical changes in the interval since her hospitalization. ROS General General: Yes fatigue and weakness; No weight change, appetite, colon cancer or breast cancer HEENT HEENT: No difficulty swallowing, eye injury, eye surgery, swollen glands or hoarseness Endo Endocrine: Yes diabetes mellitus; No thyroid disease, thyroid cancer, Hair loss, heat intolerance or cold intolerance Skin Skin: No rash or changing moles Musc Musculoskeletal: No back problems, arthritis, rheumatoid arthritis, gout or joint pain Cardio Cardiovascular: Yes high blood pressure and shortness of breath with exertion; No murmur, pacemaker, heart disease, atrial fibrillation, heart attack, heart stent, palpitations or chest pain Psych Psychiatric: No depression, anxiety or hearing voices Resp Respiratory: No shortness of breath, No sleep apnea, No cough, No COPD, No asthma, No emphysema andNo wheezing Gastro Gastrointestinal: No abdominal pain, No nausea or vomiting, Yes diarrhea, No constipation, No bloodin stool, No acid reflux, No hemorrhoids, No ulcers, No gallbladder problem and No black,tarry stools Donald Hematologic: Yes blood thinners, No blood disorders, No bleeding, No anemia and No blood clots Additional Details: plavixs Neuro Neurologic: No system reviewed and no additional complaints, except as documented, No as per HPI, No abnormal gait, Yes abnormal hearing, No abnormal movements, No abnormal speech, No behavioral changes, No burning sensations, No confusion, No convulsions, Yes disequilibrium, No dizziness, No localized weakness, No frequent falls, No headache(s), Yes lack of coordination, No loss of vision, No memory loss, No numbness, No other visual disturbances, No radicular pain, No restless legs, No sensory deficit, No syncope, No tingling, No tremor(s), Yes weakness and Yes other (tightness around face about 1 year ) Exam Const General: cooperative, comfortable and no acute distress Orientation: alert, awake and oriented x3 HENMT Head: normal to inspection, normocephalic and atraumatic Ears: hearing grossly normal bilaterally and external ears normal Nose: external nose normal Eyes General: appearance normal, both eyes and all related structures EOM: EOM intact bilaterally Neck Neck: normal visual inspection and trachea midline Resp Effort & Inspection: normal respiratory effort, able to speak in complete sentences, no grunting, not labored, no respiratory distress and no retractions Auscultation: clear to auscultation bilaterally Cardio Rate: regular rate Rhythm: regular rhythm Pulses: radial pulses present Skin General: no rashes or lesions noted Wounds: no wounds Neuro General: moves all extremities and no focal motor deficits Speech: speech normal Psych Appearance: grossly normal Mental Status: mental status grossly normal Affect: normal affect Speech and Movement: speech and movement normal Attitude: cooperative Judgment: judgment good Coding Level of Care Code Off vis,est,level 3 Diagnoses Stenosis of right carotid artery I65.21 Assessment and Plan Assessment and Plan (1) Stenosis of right carotid artery: Status: Acute Plan -right TCAR 10/05/24724 Cosigner Signature (if applicable): CC: Dr. Angela High MD; Dr. Ugo Rogel MD~ Signed [facility]05-13-2025 [facility] Medical Records Department [address] [place] [address] History Physical Exam 10/05/24724 MR#: [id number] Acct: [id number] Name: CHELSEA MOODY Rep #: [id number] : 1940 83 From: Ugo Rogel MD PCP: Dr. Angela High MD Status:ADM IN Location: [place] [address] History and Physical Allergies No Known Allergies Allergy (Verified 08/31/24 19:32) Medications ???Medication ???Instructions ???Recorded ???Confirmed ???Type aspirin 81 mg chewable tablet 81 mg PO BREAKFAST #0 tabs 09/03/24 09/17/24 Rx atorvastatin 40 mg tablet 40 mg PO QHS #30 tabs 09/03/24 09/17/24 Rx carvedilol 12.5 mg tablet 12.5 mg PO BIDCM #60 tabs 09/03/24 09/17/24 Rx clopidogrel 75 mg tablet 75 mg PO DAILY #30 tabs 09/03/24 09/17/24 Rx insulin glargine 100 unit/mL (3 10 unit (0.1 mL) subcut QHS #15 mL 09/03/24 Rx mL) subcutaneous pen (Lantus Solostar U-100 Insulin) isosorbide dinitrate 10 mg tablet 5 mg (1/2 x 10 mg) PO TID #90 tabs 09/03/24 Rx metformin 500 mg tablet 500 mg PO BID #60 tabs 09/03/24 09/17/24 Rx amlodipine 10 mg tablet 2.5 mg PO DAILY 09/17/24 History losartan 50 mg-hydrochlorothiazide 1 tab PO QDAY 09/17/24 09/17/24 History 12.5 mg tablet Is last menstrual period known: No Post menopausal: Yes Patient : No Have you fallen in the past year?: Yes [facility] Medical History CVA (cerebral vascular accident) Diabetes mellitus, type 2 Obesity (BMI 30-39.9) GERD (gastroesophageal reflux disease) Hypertension Diabetes Social History Smoking Status: Never smoker HPI HPI HPI: CHELSEA MOODY, is a 83 F who presents to the office today for hospital follow-up from CVA. On 08/31/24, she presented to the [facility] ER with binocular vision darkening and presyncope; she was found to be very hypertensive with systolics into the 260s. She underwent workup for stroke including Brain MRI which was positive for R frontal punctate infarct, Head/Neck CTA which showed significant R ICA stenosis 75% by NASCET, and carotid duplex confirming >70% R ICA stenosis. We were consulted in the hospital and plan was for outpatient carotid intervention with goal of improved blood pressure control prior to surgery. Prior to hospitalization, she had been only on metoprolol at home; at discharge she was on amlodipine, carvedilol, and isosorbide mononitrate with pressures 140-180. She reports that her blood pressure has been 170s-180s at home. She was just to her PCP today who made some further BP medication adjustments with addition of losartan-HCTZ. Otherwise, she has not had any recurrent stroke symptoms. She reports no other significant medical changes in the interval since her hospitalization. ROS General General: Yes fatigue and weakness; No weight change, appetite, colon cancer or breast cancer HEENT HEENT: No difficulty swallowing, eye injury, eye surgery, swollen glands or hoarseness Endo Endocrine: Yes diabetes mellitus; No thyroid disease, thyroid cancer, Hair loss, heat intolerance or cold intolerance Skin Skin: No rash or changing moles Musc Musculoskeletal: No back problems, arthritis, rheumatoid arthritis, gout or joint pain Cardio Cardiovascular: Yes high blood pressure and shortness of breath with exertion; No murmur, pacemaker, heart disease, atrial fibrillation, heart attack, heart stent, palpitations or chest pain Psych Psychiatric: No depression, anxiety or hearing voices Resp Respiratory: No shortness of breath, No sleep apnea, No cough, No COPD, No asthma, No emphysema and No wheezing Gastro Gastrointestinal: No abdominal pain, No nausea or vomiting, Yes diarrhea, No constipation, No blood in stool, No acid reflux, No hemorrhoids, No ulcers, No gallbladder problem and No black,tarry stools Donald Hematologic: Yes blood thinners, No blood disorders, No bleeding, No anemia and No blood clots Additional Details: plavixs Neuro Neurologic: No system reviewed and no additional complaints, except as documented, No as per HPI, No abnormal gait, Yes abnormal hearing, No abnormal movements, No abnormal speech, No behavioral changes, No burning sensations, No confusion, No convulsions, Yes disequilibrium, No dizziness, No localized weakness, No frequent falls, No headache(s), Yes lack of coordination, No loss of vision, No memory loss, No numbness, No other visual disturbances, No radicular pain, No restless legs, No sensory deficit, No syncope, No tingling, No tremor(s), Yes weakness and Yes other (tightness around face about 1 year ) Exam Const General: cooperative, comfortable and no acute distress Orientation: alert, awake and oriented x3 HENMT Head: normal to inspection, normocephalic and atraumatic Ears: hearing grossly normal (more content not included)...[facility]05-13-2025 Consult note [facility] Medical Records Department [address] [place] [address] Pre-Anesthesia Evaluation 10/05/24 0639 MR#: [id number] Acct: [id number] Name: CHELSEA MOODY Rep #:[id number] : 1940 83 From: Abhilash Rousseau PCP: Dr. Angela High MD Status:ADM I N Y Race: C Location: [place] [address] ASA Classification* ASA Classification ASA Classification: 3 Assessment & Plan Anesthesia* Anesthesia Assessment Anesthesia Assessment: Discussed sedation and/or anesthesia options, risks, benefits, and alternatives with patient/parents/legal guardian/POA. Questions invited. The patient/parents/legal guardian/POA seems to understand and agrees to proceedwith anesthesia plan. Reviewed the physical assessment, medical history, allergy history and patient home medications list prior to surgery/procedure/anesthetic and documented any changes. Performed airway and anesthesia risk assessments. Anesthesia Type Anesthesia Type: General History Source History Obtained from:: Patient and Chart Anesthesia Focused Assessment* Temperature: 97.6 F Pulse Rate: 98 Blood Pressure: 154/52 Respiratory Rate: 18 Pulse Ox: 99 Oxygen Delivery Method: Room Air Airway Assessment Mouth opens: >3 cm Mallampati Score: III Teeth Condition: Dentures and Full Focused Labs Anesthesia Preop lab: CBC WBC 8.9 K/mm3 (4.4-11.0) 10/01/24 11:52 10/01/24 RBC 4.00 M/mm3 (4.2-5.4) L 10/01/24 11:52 10/01/24 Hgb 12.1 g/dL (12.0-15.0) 10/01/24 11:52 10/01/24 Hct 36.3 % (37-47) L 10/01/24 11:52 10/01/24 Plt Count 321 K/mm3 (150-450) 10/01/24 11:52 10/01/24 CHEMISTRY Potassium 4.6 mmol/L (3.3-5.1) 10/01/24 11:52 10/01/24 Sodium 134 mmol/L (133-145) 10/01/24 11:52 10/01/24 BUN 18 mg/dL (4-19) 10/01/24 11:52 10/01/24 Creatinine 1.22 mg/dL (0.70-1.20) H 10/01/24 11:52 Glucose 231 mg/dL (70-99) H 10/01/24 11:52 10/01/24 POC Glucose 176 mg/dL (74-106) H 09/03/24 08:24 09/03/24 TSH 2.070 uIU/mL (0.300-4.200) 08/31/24 23:19 04/0 01/17 COAG Pre-Assessment Diagnosis/Proposed Procedure Planned Operative Procedure(s): RIGHT CAROTID STENT Anesthesia History Anesthesia History - hand glass cutter: Anesthesia History - hand glass cutter Hx Hospitalization Yes: AT [facility]- STROKE 09/23/24 11:46 Any Problems With Anesthesia No 09/23/24 11:46 Cholinesterase deficiency No 09/23/24 11:46 You/Your Family Experience No 09/23/24 11:46 fever (hyperthermia) with Relationship Recent Exposure to Contagious No 10/05/24 05:50 Disease Does patient have nerve No 09/23/24 11:46 stimulator Patient instructed to have device shut off --Does patient have Pacemaker No 10/05/24 05:50 or ICD? When Was Last Pacemaker Check QUESTION #4 FULL TEXT: You/Your Family Experience fever (hyperthermia) with Anesthesia Last Oral Intake Last Oral intake: Last Oral Intake NPO since 04:45 10/05/24 05:50 Meds taken in AM with sips of Yes 10/05/24 05:50 water? Meds patient instructed to take am of surgery PONV PONV - hand glass cutter: PONV - hand glass cutter Female Yes 09/23/24 11:46 HX of Motion Sickness No 09/23/24 11:46 HX of N/V After Surgery No 09/23/24 11:46 Non-Smoker Yes 09/23/24 11:46 Duration of Surgery greater No 09/23/24 11:46 than 60 minutes Number of Risk Factors 2 09/23/24 11:46 PONV Score Moderate Risk 09/23/24 11:46 Height & Weight Height & Weight: Anesthesia: Height & Weight Height 4 ft 8 in 10/05/24 05:50 Weight: 77.8 kg 10/05/24 05:50 Body Mass Index (BMI) 38.4 10/05/24 05:50 Respiratory Assessment Respiratory Assessment - hand glass cutter: Respiratory Tract Infection Hx - hand glass cutter Hx Respiratory Tract Infection No 09/23/24 11:46 STOP Sleep Apnea STOP Sleep Apnea - hand glass cutter: STOP Sleep Apnea - hand glass cutter Hx Hypertension Yes 09/23/24 11:46 Hx Sleep Apnea No 09/23/24 11:46 CPAP BIPAP Do you snore loudly (louder No 09/23/24 11:46 than talking or can be heard Do you often feel tired/ No 09/23/24 11:46 fatigued/ sleepy during daytime? Has anyone observed you stop No 09/23/24 11:46 breathing during sleep? STOP Results Negative 09/23/24 11:46 QUESTION #5 FULL TEXT : Do you snore loudly (louder than talking or can be heard through closeddoors)? 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 Specify any problems Hx of Preganancy in last 3 No 09/23/24 11:46 Months Nurse Filling Out Transfusion VLEHMAN 09/23/24 11:46 & Questions: Date: 09/23/24 09/23/24 11:46 Time: 11:53 09/23/24 11:46 Patient unable to answer at this time (ie. confused, unrespo /Reproduction History /Reproductive History - hand glass cutter: /Reproductive Hx- hand glass cutter Hx Now No 09/23/24 11:46 Gestational Age (in weeks): EDC: Hx Hx Para Hx Section SAB No 09/23/24 11:46 Active Medications Active Medications: Current Medications Generic Name Dose Route Start Last Admin Trade Name Freq PRN Reason Stop Dose Admin Cefazolin Sodium 2 gm/ Sodium 110 mls @ 150 mls/hr 10/05/24 07:00 Chloride IV 10/05/24 07:43 INTRAOP ONE Lactated Ringer's 1,000 mls @ 15 mls/hr 10/05/24 05:45 10/05/24 05:50 IV 15 mls/hr .Q48H PATIENCE Administration PFSH Medical History Wears glasses Wears dentures Bruising Insulin dependent diabetes mellitus High cholesterol Stroke/cerebrovascular accident History of echocardiogram History of edema CVA (cerebral vascular accident) Diabetes mellitus, type 2 Obesity (BMI 30-39.9) GERD (gastroesophageal reflux disease) Hypertension Diabetes Home Medications ?Medication ?Instructions ?Recorded ?Last Taken ?Type aspirin 81 mg chewable tablet 81 mg PO BREAKFAST SUPPL EMENT #0 09/03/24 10/04/24 Rx tabs atorvastatin 40 mg tablet 40 mg PO QHS CHOLESTEROL #30 tabs 04/11/25 05/12/25 22:00 Rx carvedilol 12.5 mg tablet 12.5 mg PO BIDCM BP #60 tabs 09/03/24 09/27/24 Rx clopidogrel 75 mg tablet 75 mg PO DAILY BLOOD THINNER #30 09/03/24 10/04/24 09:00 Rx tabs insulin glargine 100 unit/mL (3 10 unit (0.1 mL) subcu t QHS 09/03/24 10/04/24 22:00 Rx mL) subcutaneous pen (Lantus DIABETES #15 mL Solostar U-100 Insulin) isosorbide dinitrate 10 mg tablet 5 mg (1/2 x 10 mg) P O TID HEART 09/03/24 10/05/24 04:45 Rx #90 tabs metformin 500 mg tablet 500 mg PO BID DIABETES #60 t abs 09/03/24 10/04/24 22:00 Rx amlodipine 10 mg tablet 2.5 mg PO DAILY HYPERTENSION 09/17/24 10/05/24 04:45 History losartan 50 mg-hydrochlorothiazide 1 tab PO QDAY BP 10/04/24 09:00 History 12.5 mg tablet Allergy/AdvReac Type Severity Reaction Status Date / Time No Known Allergies Allergy Verified 10/05/24 06:16 Surgical History History of cholecystectomy Social History Smoking Status: Never smoker Prior Cardiac Testing/Procedures Prior Cardiac Testing/Procedures: Echocardiogram (EF 70% diastolic grade one dysfunction) Addt'l Information Additional Findings: EKG reviewed, NSR. Review of Systems (Anesthesia) ROS Narrative System reviewed and no additional complaints, except as documented. Physical Exam Const alert and oriented x3 HEENT Teeth and Gingiva: dentures Resp normal respiratory effort Cardio regular rate Neuro oriented x3 and moves all extremities 10/05/24 0649 MD> Date _ Abhilash Serrano MD Cosigner Signature: Date CC: ~ Signed [facility]05-12-2025 Telephone encounter Note* Telephone Encounter - Sivakumar Barrios MA - 10/04/2024 10:50 AM EDT The following approved medication requests have been transmitted electronically. Requested Prescriptions Signed Prescriptions Disp Refills atorvastatin (LIPITOR) 40 mg tablet 90 tablet 3 Sig: Take 1 tablet by mouth once daily. clopidogrel (PLAVIX) 75 mg tablet 90 tablet 3 Sig: Take 1 tablet by mouth once daily. metFORMIN (GLUCOPHAGE) 500 mg tablet 180 tablet 3 Sig: Take 1 tablet by mouth two times a day with meals. isosorbide dinitrate (ISORDIL) 10 mg tablet 135 tablet 3 Sig: Take 0.5 tablets by mouth three times a day. Sivakumar Barrios MA [facility]05-12-2025 Miscellaneous Notes* Telephone Encounter - Sivakumar Barrios MA - 10/04/2024 10:50 AM EDT The following approved medication requests have been transmitted electronically. Requested Prescriptions Signed Prescriptions Disp Refills atorvastatin (LIPITOR) 40 mg tablet 90 tablet 3 Sig: Take 1 tablet by mouth once daily. clopidogrel (PLAVIX) 75 mg tablet 90 tablet 3 Sig: Take 1 tablet by mouth once daily. metFORMIN (GLUCOPHAGE) 500 mg tablet 180 tablet 3 Sig: Take 1 tablet by mouth two times a day with meals. isosorbide dinitrate (ISORDIL) 10 mg tablet 135 tablet 3 Sig: Take 0.5 tablets by mouth three times a day. Sivakumar Barrios MA * Telephone Encounter - Barry Holt LPN - 09/30/2024 11:09 AM EDT Patient Equidatehart message requesting the following refill Refill(s) Requested: Requested Prescriptions Pending Prescriptions Disp Refills atorvastatin (LIPITOR) 40 mg tablet 90 tablet 3 Sig: Take 1 tablet by mouth once daily. clopidogrel (PLAVIX) 75 mg tablet 90 tablet 3 Sig: Take 1 tablet by mouth once daily. metFORMIN (GLUCOPHAGE) 500 mg tablet 180 tablet 3 Sig: Take 1 tablet by mouth two times a day with meals. isosorbide dinitrate (ISORDIL) 10 mg tablet 135 tablet 3 Sig: Take 0.5 tablets by mouth three times a day. ALLERGIES No Known Allergies (home) Last Office Visit Date: 09/10/2024 Last Distance Health Visit: Visit date not found Future Appointment: 10/11/2024 The patients preferred pharmacy has been captured for this encounter? yes Request is for script(s) to be escript to pharmacy. Barry Holt LPN [facility] Tele[facility] encounter Note * Telephone Encounter - Barry Holt LPN - 09/30/2024 11:09 AM EDT Patient MyChart message requesting the following refill Refill(s) Requested: Requested Prescriptions Pending Prescriptions Disp Refills atorvastatin (LIPITOR) 40 mg tablet 90 tablet 3 Sig: Take 1 tablet by mouth once daily. clopidogrel (PLAVIX) 75 mg tablet 90 tablet 3 Sig: Take 1 tablet by mouth once daily. metFORMIN (GLUCOPHAGE) 500 mg tablet 180 tablet 3 Sig: Take 1 tablet by mouth two times a day with meals. isosorbide dinitrate (ISORDIL) 10 mg tablet 135 tablet 3 Sig: Take 0.5 tablets by mouth three times a day. ALLERGIES No Known Allergies (home) Last Office Visit Date: 09/10/2024 Last Distance Health Visit: Visit date not found Future Appointment: 10/11/2024 The patients preferred pharmacy has been captured for this encounter? yes Request is for script(s) to be escript to pharmacy. Barry Holt LPN [facility]05-06-2025 NotePatient Outreach (INTMMN) CHELSEA MOODY ([id number]) 1940 F IPA Date Time Provider Department 09/28/24 ANGELA HIGH INTMMN During your visit today, we recorded the following information about you: Allergies As of Date: 09/28/2024 (No Known Allergies) Date Reviewed: 09/10/2024 Reviewed by: Leona Perry MA - Fully Assessed Visit Diagnosis:Type 2 diabetes mellitus without complication, without long-term current use of insulin (HCC) [E11.9] Order(s):ALBUMIN/CREATININE RATIO, URINE [SQUACR] Order #: [id number] FUTURE HEMOGLOBIN A1C [LEXRN8C] Order #: [id number] FUTURE LIPID PANEL, FASTING [SQLIPB] Order #: [id number] FUTURE COMPLETE BLOOD COUNT [SQCBC] Order #: [id number] FUTURE Prescriptions as of 10/01/2024 - atorvastatin (LIPITOR) 40 mg tablet Take 1 tablet by mouth once daily. - clopidogrel (PLAVIX) 75 mg tablet Take 1 tablet by mouth once daily. - metFORMIN (GLUCOPHAGE) 500 mg tablet Take 1 tablet by mouth two times a day with meals. - isosorbide dinitrate (ISORDIL) 10 mg tablet Take 0.5 tablets by mouth three times a day. - carvedilol (COREG) 12.5 mg tablet Take 1 tablet by mouth two times a day with meals. - aspirin 81 mg chewable tablet Take 81 mg by mouth once daily. - LANTUS SOLOSTAR U-100 INSULIN 100 unit/mL (3 mL) Inject 10 Units subcutaneously daily at bedtime. - ONETOUCH DELICA PLUS LANCET 30 gauge two times a day. TEST BLOOD SUGAR - losartan-hydroCHLOROthiazide (HYZAAR) 50-12.5 mg per tablet Take 1 tablet by mouth once daily. - amLODIPine (NORVASC) 2.5 mg tablet Take 1 tablet by mouth once daily. - ONETOUCH VERIO TEST STRIPS test strip two times a day. TEST BLOOD SUGAR Problem List As Of Date 09/28/2024 Noted Resolved Class 2 severe obesity with serious comorbidity*09/10/2024 Type 2 diabetes mellitus without complication, *09/10/2024 Hypertension [I10] 09/10/2024 Encounter Status:Closed by ERIC PATRICKUSEMichele on 10/01/24[facility] 09-13-2024 Telephone encounter Note* Telephone Encounter - Pippa Nichols RN - 09/13/2024 8:53 AM EDT Daughter (Barry) calls to report that prescriptions for amlodipine and losartan- HCTZ were not received at [facility]. Called and spoke to Randa. Both prescriptions are ready for [facility]. Randa mentioned that patient hastwo accounts in her name. Call placed to daughter to notify. Message left for Barry. 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 Pippa Nichols RN [facility]04-21-2025 Miscellaneous Notes* Telephone Encounter - Pippa Nichols RN - 09/13/2024 8:53 AM EDT Daughter (Barry) calls to report that prescriptions for amlodipine and losartan- HCTZ were not received at [facility]. Called and spoke to Randa. Both prescriptions are ready for [facility]. Randa mentioned that patient hastwo accounts in her name. Call placed to daughter to notify. Message left for Barry. 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 Pippa Nichols RN documented in this encounterDay[facility]04-[facility] Instructions* Patient Instructions* Angela High MD - 09/10/2024 12:21 PM EDT We discussed your recent health concerns and care plan: - Stroke Recovery and Balance Issues: - You are recovering well from your recent stroke, with no significant residual effects. However, you mentioned feeling unsteady and experiencing dizziness, which may be related to your medications. - I have reduced your Norvasc dosage to 2.5 mg daily to help with dizziness. If your blood pressureremains stable, we may consider discontinuing it in the future. - Continue taking your medications as prescribed. Your current regimen includes Coreg, isosorbide, and Norvasc (at the reduced dose). I am also adding lisinopril or losartan combined with hydrochlorothiazide to help manage your blood pressure and reduce swelling in your legs. - If there are significant fluctuations in your blood pressure, I may add spironolactone to stabilize it. - Please monitor your blood pressure at home using an upper-arm cuff, as wrist cuffs can be inaccurate. Let us know if your readings are consistently high or low. - Diabetes Management: - Your most recent A1c was 7.8, which is a good level for your age. Continue your current diabetes management plan, including eating a healthy diet and taking your medications as prescribed. - Avoid excessive sweets. Consider substituting desserts with healthier options like fruits, vegetables, or homemade hummus. - Swelling in Your Legs: - The new medication (lisinopril or losartan with hydrochlorothiazide) should help reduce the swelling in your legs. Take this medication in the morning to avoid nighttime urination. - Physical Activity: - Light exercise, such as walking, is encouraged to help improve your strength and balance. Start with small amounts and gradually increase as tolerated. - You declined physical therapy, which is fine. Continue staying active at home as much as possible. - Upcoming Carotid Surgery: - You are scheduled for carotid surgery in September. This procedure will help address the bifurcation issue in your carotid artery. Please follow up with Dr. Santos as planned. - Dietary 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s: - Continue eating plenty of fruits and vegetables, as you are already doing. Limit salt intake to help manage your blood pressure. - If you enjoy chickpeas, consider making homemade hummus to reduce salt content. - Medication Adherence: - It s important to take your medications consistently, even if not at the exact same time every day. Your current system of organizing medications seems to be working well, so no changes are needed. Follow-Up: - Please monitor your blood pressure and symptoms of dizziness or swelling. Let us know if you notice any significant changes. - We will reassess your medications and symptoms at your next visit. It may take 2-3 visits to optimize your medication regimen and reduce unnecessary medications. - Continue preparing for your carotid surgery in September and follow up with Dr. Santos as scheduled. If you have, any concerns or new symptoms, please contact our office. documented in this encounterDayton [facility]04-18-2025 NoteHNO ID: [id number] Author: ANGELA HIGH MD Service: ? Author Type: Physician Type: Progress Notes Filed: 09/10/2024 12:54 Note Text: [facility] visit: Date of Admission: 09/01/24 Date of Discharge: 09/03/24 Discharge Diagnosis (1) CVA (cerebral vascular accident): Status: Acute Discharge diagnoses: Acute right frontal lobe stroke Hypertensive emergency Carotid artery stenosis right greater than left Hyperlipidemia DM-2 uncontrolled Obesity Hypertension Please see hospital discharge below Hospital Course: Mrs. Underwood is an 83-year-old white female who presents emergency department at [facility] on 08/31/2024 with a chief complaint of dizziness and elevated blood pressure. Symptoms were acute and started a few hours prior to presentation and were gradual onset. She also admitted to generalized diffuse weakness. Blood pressure at home was 270/51 so she decided come to emergency department for further evaluation. She stated on presentation her blood pressure has been poorly controlled for weeks with recent increased doses of hermetoprolol but she is not on any other medications besides her metoprolol. She had no focal deficits on presentation. Vital signs emergency department on presentation showed a temperature 97.8, heart rate was 68, respiratory rate was 16, blood pressure was 224/66 and pulse ox was 98% room air. Her CBC was unremarkable. Her chemistry panel was overtly unremarkable. Blood glucose was 155 and patient is a known diabetic. Hemoglobin A1c was 7.8. Liver functions were normal. Troponins were normal x 3. BNP was normal. Total cholesterol 205with an LDL of 123 and HDL 47. B12, TSH, and folate were all within normal limits. CT of the brain on admission was unremarkable for any acute findings but did show chronic microvascular changes. With her blood pressure being markedly elevated and symptoms concerning to admitted with hypertensive emergency from stroke workup was pursued is after blood pressure cuff emergency department she developed some neurological changes. MRI of the brain was done after admission and showed a punctate high right frontal lobe infarct with no mass effect or appreciated hemorrhagic transformation. CTA was not obtained on admission and a carotid duplex was ordered. Carotid duplex showed severe (greater than 70%) stenosis in the right extracranial internal carotid artery and mild less than 50% stenosis in the left extracranial internal carotid arterywith patent and antegrade flow in the vertebrals bilaterally. With the stroke finding on the right side and the carotid abnormalities on the right side vascular surgery was consulted and a CTA of the head neck was performed. Current recommendations include dual antiplatelet therapy with aspirin and Plavix and high intensity dose statin along with outpatient follow-up for possible intervention. This showed atherosclerotic calcification anterior and posterior intracranial circulation most prominent at the right ICA bifurcation with resultant luminal narrowing. Echocardiogram showed an EF of 70% with stageI diastolic dysfunction and mild aortic valve insufficiency. Vascular surgery saw the placement and has upcoming appointment for intervention as an outpatient. She was also seen by neurology who recommended Plavix loading her with 600 mg and continuing aspirin and Plavix at 75 mg daily at the time of discharge as well as statin and blood pressure control. Blood pressure control for the first 24 hours was between 180 and 200. After that point in time we dropped her blood pressure goal from 140-180 and that is where she was at the time of discharge. To obtain that control, we added Coreg 12.5 mg p.o. twice daily, amlodipine 10 mg p.o. daily and Isordil 5 mg 3 times daily. We initiallytried Imdur however it dropped her blood pressure and cause a hypotensive episode which made her feel quite poorly and held discharge. Plan after 72 to 96 hours from the time of event is blood pressure of 120-160. This is to be thegoal until her carotid is intervened upon. Her hemoglobin A1c was 7.8 so I did increase her basal insulin from 8-10 and added metformin 500 mg p.o. twice dailyto get her closer to 7. Statin 40 mg was also added. Prescriptions for her medications were sent to local pharmacy at the time of discharge. We have askedthat she follow-up with neurology in the next 3 to 6 months. She is to follow-up with Dr. Rogel as instructed by his office as they will call and her primarycare physician within the next week. She will most likely need up titration on her blood pressure medication to attain goal. Patient was able to be dischargedhome in stable condition on 09/03/2024. Home Medications: New amlodipine 10 mg Tablet 10 mg PO DAILY Qty: 30 1RF atorvastatin 40 mg Tablet 40 mg PO QHS Qty: 30 1RF aspirin 81 mg Tablet,Chewable 81 mg PO BREAKFAST Qty: 0 0RF carvedilol 12.5 mg (more content not included)...[facility] [facility] 09-10-2024 History of Present illness Narrative* Angela High MD - 09/10/2024 11:23 AM EDT [facility] visit: Date of Admission: 09/01/24 Date of Discharge: 09/03/24 Discharge Diagnosis (1) CVA (cerebral vascular accident): Status: Acute Discharge diagnoses: Acute right frontal lobe stroke Hypertensive emergency Carotid artery stenosis right greater than left Hyperlipidemia DM-2 uncontrolled Obesity Hypertension Please see hospital discharge below Hospital Course: Mrs. Underwood is an 83-year-old white female who presents emergency department at [facility] on 08/31/2024 with a chief complaint of dizziness and elevated blood pressure. Symptoms were acute and started a few hours prior to presentation and were gradual onset. She also admitted to generalized diffuse weakness. Blood pressure at home was 270/51 so she decided come to emergency departmentfor further evaluation. She stated on presentation her blood pressure has been poorly controlled for weeks with recent increased doses of hermetoprolol but she is not on any other medications besidesher metoprolol. She had no focal deficits on presentation. Vital signs emergency department on presentation showed a temperature 97.8, heart rate was 68, respiratory rate was 16, blood pressure was 224/66 and pulse ox was 98% room air. Her CBC was unremarkable. Her chemistry panel was overtly unremarkable. Blood glucose was 155 and patient is a known diabetic. Hemoglobin A1c was 7.8. Liver functions were normal. Troponins were normal x 3. BNP was normal. Total cholesterol 205with an LDL of 123 and HDL 47. B12, TSH, and folate were all within normal limits. CT of the brain on admission was unremarkable for any acute findings but did show chronic microvascular changes. With her blood pressurebeing markedly elevated and symptoms concerning to admitted with hypertensive emergency from strokeworkup was pursued is after blood pressure cuff emergency department she developed some neurological changes. MRI of the brain was done after admission and showed a punctate high right frontal lobe infarct with no mass effect or appreciated hemorrhagic transformation. CTA was not obtained on admission and a carotid duplex was ordered. Carotid duplex showed severe (greater than 70%) stenosis in the right extracranial internal carotid artery and mild less than 50% stenosis in the left extracranial internal carotid arterywith patent and antegrade flow in the vertebrals bilaterally. With the stroke finding on the right side and the carotid abnormalities on the right side vascular surgery was consulted and a CTA of the head neck was performed. Current recommendations include dual antiplatelet therapy with aspirin and Plavix and high intensity dose statin along with outpatient follow-up for possible intervention. This showed atherosclerotic calcification anterior and posterior intracranial c irculation most prominent at the right ICA bifurcation with resultant luminal narrowing. Echocardiogram showed an EF of 70% with stageI diastolic dysfunction and mild aortic valve insufficiency. Vascular surgery saw the placement and has upcoming appointment for intervention as an outpatient. She was also seen by neurology who recommended Plavix loading her with 600 mg and continuing aspirin and Plavix at 75 mg daily at the time of discharge as well as statin and blood pressure control. Blood pressure control for the first 24 hours was between 180 and 200. After that point in time we dropped her blood pressure goal from 140- 180 and that is where she was at the time of discharge. To obtain that control, we added Coreg 12.5 mg p.o. twice daily, amlodipine 10 mg p.o. daily and Isordil 5 mg 3times daily. We initiallytried Imdur however it dropped her blood pressure and cause a hypotensive episode which made her feel quite poorly and held discharge. Plan after 72 to 96 hours from the timeof event is blood pressure of 120-160. This is to be thegoal until her carotid is intervened upon. Her hemoglobin A1c was 7.8 so I did increase her basal insulin from 8-10 and added metformin 500 mg p.o. twice dailyto get her closer to 7. Statin 40 mg was also added. Prescriptions for her medications were sent to local pharmacy at the time of discharge. We have askedthat she follow-up with neurology in the next 3 to 6 months. She is to follow-up with Dr. Rogel as instructed by his office as they will call and her primarycare physician within the next week. She will most likely need up titration on her blood pressure medication to attain goal. Patient was able to be dischargedhome in stablecondition on 09/03/2024. Home Medications: New amlodipine 10 mg Tablet 10 mg PO DAILY Qty: 30 1RF atorvastatin 40 mg Tablet 40 mg PO QHS Qty: 30 1RF aspirin 81 mg Tablet,Chewable 81 mg PO BREAKFAST Qty: 0 0RF carvedilol 12.5 mg Tablet 12.5 mg PO BIDCM Qty: 60 1RF clopidogrel 75 mg Tablet 75 mg PO DAILY Qty: 30 1RF isosorbide dinitrate 10 mg Tablet 5 mg PO TID Qty: 90 1RF metformin 500 mg tablet 500 mg PO BID Qty: 60 1RF Changed insulin glargine [Lantus Solostar U-100 Insulin] 100 unit/mL (3 mL) insulin pen 10 unit subcut QHS Qty: 15 0RF Discontinued metoprolol succinate 50 mg tablet extended release 24 hr 100 mg PO DAILY Reason for Visit HPI Chelsea is a 83-year-old female, with a history of DM and HTN, presenting for follow-up after a recent hospitalization for a stroke. Chelsea was recently hospitalized for a stroke and is currently on new medications, including Coreg,isosorbide, and Norvasc. She reports feeling woozy and experiencing balance issues since startingthese medications, particularly Norvasc, which she believes may be causing dizziness. She describes her balance as tottering and feels unsteady when taking steps, fearing she might fall or run intosomething. This is a new experience for her, different from previous episodes of hypoglycemia. She expresses frustration with her current physical limitations, stating that this is the first time she has felt her age and is unable to do what she wants. She is particularly frustrated by her inability to help her and maintain her independence. She has been active and independent, enjoying activities like driving her tractor and hauling wood, and finds it difficult to accept her current limitations. Chelsea is also managing DM, with a recent A1c of 7.8. She reports eating a healthy diet, rich in fruits and vegetables, but occasionally indulges in sweets brought by her daughter. She has been experiencing knee pain, for which she has received 3-4 injections, but this has slowed her down. She is not currently on lisinopril or losartan. She monitors her blood pressure at home, with readings sometimes as high as 200 mmHg, but recent readings have been within the normal range. She is scheduled for carotid artery surgery in September. Social History Tobacco Use Smoking status: Never Smokeless tobacco: Never Vaping Use Vaping status: Never Used Substance Use Topics Alcohol use: Yes Drug use: Never Past medical history, appointments, medications, allergies reviewed. Pertinent Lab/Diagnostic Studies are reviewed and discussed today Current Outpatient Medications: aspirin 81 mg chewable tablet isosorbide dinitrate (ISORDIL) 10 mg tablet metFORMIN (GLUCOPHAGE) 500 mg tablet atorvastatin (LIPITOR) 40 mg tablet clopidogrel (PLAVIX) 75 mg tablet carvedilol (COREG) 12.5 mg tablet LANTUS SOLOSTAR U-100 INSULIN 100 unit/mL (3 mL) ONETOUCH DELICA PLUS LANCET 30 gauge ONETOUCH VERIO TEST STRIPS test strip losartan-hydroCHLOROthiazide (HYZAAR) 50-12.5 mg per tablet amLODIPine (NORVASC) 2.5 mg tablet Health Maintenance Depression Screening Anxiety Screening DTaP,Tdap,Td Vaccine(1 - Tdap) Diabetes Screening Shingrix Vaccine(1 of 2) Pneumococcal Vaccine: 50+(1 of 1 - PCV) Bone Density Screening RSV Vaccine(1 - 1-dose 75+ series) Influenza Vaccine(1) Covid-19 Vaccine( - season) Advance Directive Discussion@ Review Of Systems Neurological: (+) dizziness, (+) balance difficulty Physical Exam BP 138/69 Pulse 98 Resp 18 Wt 78.7 kg (173 lb 6.4 oz) GENERAL: NAD, alert and oriented. SKIN: Unremarkable, no rash or skin lesions. HEAD: Normocephalic. EYES: PERRLA, EOMI, conjunctiva clear. NECK: Supple, no lymphadenopathy, normal thyroid, no carotid bruits. LUNGS: Clear to auscultation bilaterally, no wheezes/rhonchi/rales. HEART: Regular rate and rhythm, no murmurs. No ectopy. EXTREMITIES: No deformities, no skin discoloration, edema noted. NEURO: Awake, alert and oriented x3, cranial nerves II-XII grossly intact, normal gait, no involuntary motions. Labs: - Hemoglobin A1c: 7.8 - BUN: Normal - Creatinine: Normal - GFR: 58 - CBC: No anemia Assessment and Plan 1. Hospital discharge follow-up (Z09) Recent hospitalization due to a stroke. No residual neurological deficits observed. Patient reportsfeeling old and experiencing balance issues post-discharge. - Monitor for any recurrent symptoms or complications. - Follow-up appointments to assess progress and adjust treatment as necessary. 2. Hypertension, unspecified type (I10) Currently on multiple antihypertensive medications including Norvasc, Coreg, and isosorbide. Blood pressure readings have been variable, with some readings as high as 200 mmHg. Edema noted in lower extremities. - Reduce Norvasc to 2.5 mg. - Initiate lisinopril or losartan with hydrochlorothiazide to manage blood pressure and edema. - Consider adding spironolactone if blood pressure fluctuations persist. - Gradually decrease Coreg to as low as 3.125 mg if tolerated. - Educated patient on the importance of blood pressure control to prevent cardiovascular events. - Advised on dietary modifications including reduced salt intake. - Monitor blood pressure regularly at home with a calibrated cuff. 3. Type 2 diabetes mellitus without complication, without long-term current use of insulin (HCC) (E11.9) Hemoglobin A1c is 7.8%. Patient maintains a healthy diet with a focus on fruits and vegetables. - Continue current dietary habits. - Monitor blood glucose levels regularly. - Follow-up to reassess glycemic control. Voice recognition software was used to compose this office note. Please excuse any unintended typographical errors. Recording using ambient [employer] software for draft documentation of the visit was discussed with the patient/authorized environmental marketing representative; all questions welcomed and answered. Patient/authorized environmental marketing representative agreed to proceed Angela High MD * Leona Perry MA - 09/10/2024 11:20 AM EDT [facility] visit: Date of Admission: 09/01/24 Date of Discharge: 09/03/24 Discharge Diagnosis (1) CVA (cerebral vascular accident): Status: Acute Discharge diagnoses: Acute right frontal lobe stroke Hypertensive emergency Carotid artery stenosis right greater than left Hyperlipidemia DM-2 uncontrolled Obesity Hypertension Hospital Course: Mrs. Underwood is an 83-year-old white female who presents emergency department at [facility] on 08/31/2024 with a chief complaint of dizziness and elevated blood pressure. Symptoms were acute and started a few hours prior to presentation and were gradual onset. She also admitted to generalized diffuse weakness. Blood pressure at home was 270/51 so she decided come to emergency departmentfor further evaluation. She stated on presentation her blood pressure has been poorly controlled for weeks with recent increased doses of hermetoprolol but she is not on any other medications besidesher metoprolol. She had no focal deficits on presentation. Vital signs emergency department on prese ntation showed a temperature 97.8, heart rate was 68, respiratory rate was 16, blood pressure was 224/66 and pulse ox was 98% room air. Her CBC was unremarkable. Her chemistry panel was overtly unremarkable. Blood glucose was 155 and patient is a known diabetic. Hemoglobin A1c was 7.8. Liver functions were normal. Troponins were normal x 3. BNP was normal. Total cholesterol 205with an LDL of 123 and HDL 47. B12, TSH, and folate were all within normal limits. CT of the brain on admission was unremarkable for any acute findings but did show chronic microvascular changes. With her blood pressurebeing markedly elevated and symptoms concerning to admitted with hypertensive emergency from strokeworkup was pursued is after blood pressure cuff emergency department she developed some neurological changes. MRI of the brain was done after admission and showed a punctate high right frontal lobe infarct with no mass effect or appreciated hemorrhagic transformation. CTA was not obtained on admission and a carotid duplex was ordered. Carotid duplex showed severe (greater than 70%) stenosis in the right extracranial internal carotid artery and mild less than 50% stenosis in the left extracranial internal carotid arterywith patent and antegrade flow in the vertebrals bilaterally. With the stroke finding on the right side and the carotid abnormalities on the right side vascular surgery was consulted and a CTA of the head neck was performed. Current recommendations include dual antiplatelet therapy with aspirin and Plavix and high intensity dose statin along with outpatient follow-up for possible intervention. This showed atherosclerotic calcification anterior and posterior intracranial c irculation most prominent at the right ICA bifurcation with resultant luminal narrowing. Echocardiogram showed an EF of 70% with stageI diastolic dysfunction and mild aortic valve insufficiency. Vascular surgery saw the placement and has upcoming appointment for intervention as an outpatient. She was also seen by neurology who recommended Plavix loading her with 600 mg and continuing aspirin and Plavix at 75 mg daily at the time of discharge as well as statin and blood pressure control. Blood pressure control for the first 24 hours was between 180 and 200. After that point in time we dropped her blood pressure goal from 140- 180 and that is where she was at the time of discharge. To obtain that control, we added Coreg 12.5 mg p.o. twice daily, amlodipine 10 mg p.o. daily and Isordil 5 mg 3times daily. We initiallytried Imdur however it dropped her blood pressure and cause a hypotensive episode which made her feel quite poorly and held discharge. Plan after 72 to 96 hours from the timeof event is blood pressure of 120-160. This is to be thegoal until her carotid is intervened upon. Her hemoglobin A1c was 7.8 so I did increase her basal insulin from 8-10 and added metformin 500 mg p.o. twice dailyto get her closer to 7. Statin 40 mg was also added. Prescriptions for her medications were sent to local pharmacy at the time of discharge. We have askedthat she follow-up with neurology in the next 3 to 6 months. She is to follow-up with Dr. Rogel as instructed by his office as they will call and her primarycare physician within the next week. She will most likely need up titration on her blood pressure medication to attain goal. Patient was able to be dischargedhome in stablecondition on 09/03/2024. Imaging: CT/Brain/Head without Contrast IMPRESSION: No acute intracranial abnormality. Chronic microvascular ischemia and involutional changes MRI/Brain without Contrast IMPRESSION: 1. Punctate high RIGHT frontal acute infarct. No mass-effect or appreciable hemorrhagic conversion. 2. Additional description as above. R #: [id number] CT/CTA Head AND Neck W/ Contrast IMPRESSION: Atherosclerotic calcification anterior and posterior intracranial circulation asdescribed above, most prominent at the right ICA bifurcation with resultant luminal narrowing. No evidence of acute occlusion, dissection or aneurysm VL/Carotid Duplex Ultrasound Interpretation Summary: Severe (>70%) stenosis right extracranial internal carotid. Mild (<50%) stenosis left extracranial internal carotid. Patent and antegrade vertebrals bilaterally. ECHO/Echo Complete W/ Contrast Interpretation Summary: Normal LV size. Left ventricular systolic function is normal. The left ventricular ejection fraction is 70 %. Stage 1 diastolic dysfunction. Mild (1+) aortic valve insufficiency. Contrast injection was performed. Home Medications: New amlodipine 10 mg Tablet 10 mg PO DAILY Qty: 30 1RF atorvastatin 40 mg Tablet 40 mg PO QHS Qty: 30 1RF aspirin 81 mg Tablet,Chewable 81 mg PO BREAKFAST Qty: 0 0RF carvedilol 12.5 mg Tablet 12.5 mg PO BIDCM Qty: 60 1RF clopidogrel 75 mg Tablet 75 mg PO DAILY Qty: 30 1RF isosorbide dinitrate 10 mg Tablet 5 mg PO TID Qty: 90 1RF metformin 500 mg tablet 500 mg PO BID Qty: 60 1RF Changed insulin glargine [Lantus Solostar U-100 Insulin] 100 unit/mL (3 mL) insulin pen 10 unit subcut QHS Qty: 15 0RF Discontinued metoprolol succinate 50 mg tablet extended release 24 hr 100 mg PO DAILY Referrals / Follow Up: Angela High MD [Med Staff - Branch Billing Payroll Clerk] - Within 1 Week Ugo Rogel MD [Med Staff - Active Staff] - Within 1 Week Kurt Lieberman MD [Primary Care Provider] - Choco Quinones MD [Non-Staff -Ordering Privileges] - See Referral Note (3 to 6months) [facility] NoteHNO ID: [id number] Author: LEONA PERRY MA Service: ? Author Type: Broach Trouble Shooter Type: Progress Notes Filed: 09/10/2024 12:54 Note Text: [facility] visit: Date of Admission: 09/01/24 Date of Discharge: 09/03/24 Discharge Diagnosis (1) CVA (cerebral vascular accident): Status: Acute Discharge diagnoses: Acute right frontal lobe stroke Hypertensive emergency Carotid artery stenosis right greater than left Hyperlipidemia DM-2 uncontrolled Obesity Hypertension Hospital Course: Mrs. Underwood is an 83-year-old white female who presents emergency department at [facility] on 08/31/2024 with a chief complaint of dizziness and elevated blood pressure. Symptoms were acute and started a few hours prior to presentation and were gradual onset. She also admitted to generalized diffuse weakness. Blood pressure at home was 270/51 so she decided come to emergency department for further evaluation. She stated on presentation her blood pressure has been poorly controlled for weeks with recent increased doses of hermetoprolol but she is not on any other medications besides her metoprolol. She had no focal deficits on presentation. Vital signs emergency department on presentation showed a temperature 97.8, heart rate was 68, respiratory rate was 16, blood pressure was 224/66 and pulse ox was 98% room air. Her CBC was unremarkable. Her chemistry panel was overtly unremarkable. Blood glucose was 155 and patient is a known diabetic. Hemoglobin A1c was 7.8. Liver functions were normal. Troponins were normal x 3. BNP was normal. Total cholesterol 205with an LDL of 123 and HDL 47. B12, TSH, and folate were all within normal limits. CT of the brain on admission was unremarkable for any acute findings but did show chronic microvascular changes. With her blood pressure being markedly elevated and symptoms concerning to admitted with hypertensive emergency from stroke workup was pursued is after blood pressure cuff emergency department she developed some neurological changes. MRI of the brain was done after admission and showed a punctate high right frontal lobe infarct with no mass effect or appreciated hemorrhagic transformation. CTA was not obtained on admission and a carotid duplex was ordered. Carotid duplex showed severe (greater than 70%) stenosis in the right extracranial internal carotid artery and mild less than 50% stenosis in the left extracranial internal carotid arterywith patent and antegrade flow in the vertebrals bilaterally. With the stroke finding on the right side and the carotid abnormalities on the right side vascular surgery was consulted and a CTA of the head neck was performed. Current recommendations include dual antiplatelet therapy with aspirin and Plavix and high intensity dose statin along with outpatient follow-up for possible intervention. This showed atherosclerotic calcification anterior and posterior intracranial circulation most prominent at the right ICA bifurcation with resultant luminal narrowing. Echocardiogram showed an EF of 70% with stageI diastolic dysfunction and mild aortic valve insufficiency. Vascular surgery saw the placement and has upcoming appointment for intervention as an outpatient. She was also seen by neurology who recommended Plavix loading her with 600 mg and continuing aspirin and Plavix at 75 mg daily at the time of discharge as well as statin and blood pressure control. Blood pressure control for the first 24 hours was between 180 and 200. After that point in time we dropped her blood pressure goal from 140-180 and that is where she was at the time of discharge. To obtain that control, we added Coreg 12.5 mg p.o. twice daily, amlodipine 10 mg p.o. daily and Isordil 5 mg 3 times daily. We initiallytried Imdur however it dropped her blood pressure and cause a hypotensive episode which made her feel quite poorly and held discharge. Plan after 72 to 96 hours from the time of event is blood pressure of 120-160. This is to be thegoal until her carotid is intervened upon. Her hemoglobin A1c was 7.8 so I did increase her basal insulin from 8-10 and added metformin 500 mg p.o. twice dailyto get her closer to 7. Statin 40 mg was also added. Prescriptions for her medications were sent to local pharmacy at the time of discharge. We have askedthat she follow-up with neurology in the next 3 to 6 months. She is to follow-up with Dr. Rogel as instructed by his office as they will call and her primarycare physician within the next week. She will most likely need up titration on her blood pressure medication to attain goal. Patient was able to be dischargedhome in stable condition on 09/03/2024. Imaging: CT/Brain/Head without Contrast IMPRESSION: No acute intracranial abnormality. Chronic microvascular ischemia and involutional changes MRI/Brain without Contrast IMPRESSION: 1. Punctate hi (more content not included)...[facility] 09-03-2024 Discharge summary Author Dariana Wise [facility] Note Date/Time September 03, 2024 2:0 4pm [facility] Medical Records Department [address] [place] [address] Discharge Summary 09/03/24 1210 MR#: [id number] Acct: [id number] Name: CHELSEA MOODY Rep #:[id number] : 1940 83 From: Dariana Wise DO PCP: Dr. Kurt Lieberman, MD Status:A DM IN Location: [facility] [id number] Providers Date of Admission: 09/01/24 Date of Discharge: 09/03/24 Primary Care Physician: Dr. Kurt Lieberman MD Consultations 09/01/24 00:06 Consult: Tele-Neurology Routine Consulting Provider: [facility] Reason for Consult: Acute Ischemic Stroke/TIA EMERGENT Consult: No MD Notified: Yes Date Notified: 08/31/24 Time Notified: 00:38 Method of Notification: Answering Service Method of Consult:: Telemedicine Nursing Unit Staff Notify [facility] of Tele-Neurology Consult: Yes 09/01/24 10:56 Consult: Vascular Surgery Routine Consulting Provider: Ugo Rogel Reason for Consult: Critical HIRAL EMERGENT Consult: No MD Notified: Yes Date Notified: 09/01/24 Time Notified: 10:56 Method of Notification: Verbal Reason For Visit: HYPERTENSIVE EMERGENCY & TIA VS WATERSHED CVA Diagnosis Discharge Diagnosis (1) CVA (cerebral vascular accident): Status: Acute Code(s): I63.9 - Cerebral infarction, unspecified Medications at Discharge Home Medications amlodipine 10 mg tablet 10 mg PO DAILY #30 tabs 09/03/24 aspirin 81 mg chewable tablet 81 mg PO BREAKFAST #0 tabs 09/03/24 atorvastatin 40 mg tablet 40 mg PO QHS #30 tabs 09/03/24 carvedilol 12.5 mg tablet 12.5 mg PO BIDCM #60 tabs 09/03/24 clopidogrel 75 mg tablet 75 mg PO DAILY #30 tabs 09/03/24 insulin glargine 100 unit/mL (3 mL) subcutaneous pen (Lantus Solostar U-100 Insulin) 10 unit (0.1 mL) subcut QHS #15 mL 09/03/24 isosorbide dinitrate 10 mg tablet 5 mg (1/2 x 10 mg) PO TID #90 tabs 09/03/24 metformin 500 mg tablet 500 mg PO BID #60 tabs 09/03/24 Hospital Course Operations None Procedures EKG and - (CT brain/MRI brain/carotid duplex/CTA head and neck) Summary of Care Provided Minutes Spent on Discharge: 41 Hospital Course: Mrs. Underwood is an 83-year-old white female who presents emergency department at [facility] on 08/31/2024 with a chief complaint of dizziness and elevated blood pressure. Symptoms were acute and started a few hours prior to presentation and were gradual onset. She also admitted to generalized diffuse weakness. Blood pressure at home was 270/51 so she decided come to emergency department for further evaluation. She stated on presentation her blood pressure has been poorly controlled for weeks with recent increased doses of hermetoprolol but she is not on any other medications besides her metoprolol. She had no focal deficits on presentation. Vital signs emergency department on presentation showed a temperature 97.8, heart rate was 68, respiratory rate was 16, blood pressure was 224/66 and pulse ox was 98% room air. Her CBC was unremarkable. Her chemistry panel was overtly unremarkable. Blood glucose was 155 and patient is a known diabetic. Hemoglobin A1c was 7.8. Liver functions were normal. Troponins were normal x 3. BNP was normal. Total cholesterol 205with an LDL of 123 and HDL 47. B12, TSH, and folate were all within normal limits. CT of the brain on admission was unremarkable for any acute findings but did show chronic microvascular changes. With her blood pressure being markedly elevated and symptoms concerning to admitted with hypertensive emergency from stroke workup was pursued is after blood pressure cuff emergency department she developed some neurological changes. MRI of the brain was done after admission and showed a punctate high right frontal lobe infarct with no mass effect or appreciated hemorrhagic transformation. CTA was not obtained on admission and a carotid duplex was ordered. Carotid duplex showed severe (greater than 70%) stenosis in the right extracranial internal carotid artery and mild less than 50% stenosis in the left extracranial internal carotid arterywith patent and antegrade flow in the vertebrals bilaterally. With the stroke finding on the right side and the carotid abnormalities on the right side vascular surgery was consulted and a CTA of the head neck was performed. Current recommendations include dual antiplatelet therapy with aspirin and Plavix and high intensity dose statin along with outpatient follow-up for possible intervention. This showed atherosclerotic calcification anterior and posterior intracranial circulation most prominent at the right ICA bifurcation with resultant luminal narrowing. Echocardiogram showed an EF of 70% with stageI diastolic dysfunction and mild aortic valve insufficiency. Vascular surgery saw the placement and has upcoming appointment for intervention as an outpatient. She was also seen by neurology who recommended Plavix loading her with 600 mg and continuing aspirin and Plavix at 75 mg daily at the time of discharge as well as statin and blood pressure control. Blood pressure control for the first 24 hours was between 180 and 200. After that point in time we dropped her blood pressure goal from 140-180 and that is where she was at the time of discharge. To obtain that control, we added Coreg 12.5 mg p.o. twice daily, amlodipine 10 mg p.o. daily and Isordil 5 mg 3 times daily. We initiallytried Milagro however it dropped her blood pressure and cause a hypotensive episode which made her feel quite poorly and held discharge. Plan after 72 to 96 hours from the time of event is blood pressure of 120-160. This is to be thegoal until her carotid is intervened upon. Her hemoglobin A1c was 7.8 so I did increase her basal insulin from 8-10 and added metformin 500 mg p.o. twice dailyto get her closer to 7. Statin 40 mg was also added. Prescriptions for her medications were sent to local pharmacy at the time of discharge. We have askedthat she follow-up with neurology in the next 3 to 6 months. She is to follow-up with Dr. Rogel as instructed by his office as they will call and her primarycare physician within the next week. She will most likely need up titration on her blood pressure medication to attain goal. Patient was able to be dischargedhome in stable condition on 09/03/2024. Discharge diagnoses: Acute right frontal lobe stroke Hypertensive emergency Carotid artery stenosis right greater than left Hyperlipidemia DM-2 uncontrolled Obesity Hypertension Physical Exam Const alert, oriented x3, no apparent distress, no limitations and well nourished; Negative for average body habitus or healthy appearing Constitutional Narrative: Very pleasant, obese, white female, sitting up in bed, multiple family members are at the bedside, patient appears comfortable, nontoxic General Appearance: cooperative, comfortable, well kempt and well developed Exam Limitations: no limitations Nutritional Appearance: obese HEENT normocephalic, head/scalp atraumatic and moist oral mucous membranes; Negative for hearing grossly normal bilaterally HEENT Narrative: Mallampati 3, no thrush, mild hearing loss Eyes conjunctivae normal Eyes Narrative: No scleral icterus Neck supple Neck Narrative: Trachea midline Resp normal respiratory effort, no retractions, no use of accessory muscles and clearto auscultation bilaterally Auscultation: Negative for rales, rhonchi or wheezes Cardio regular rate, regular rhythm, S1 normal heart sound, S2 normal heart sound, no murmurs, no rub, no gallops and no clicks GI normal to inspection, nondistended, normoactive bowel sounds, soft to palpation and non-tender Extremity no clubbing, cyanosis or edema Extremity Narrative: 2+ pedal and radial pulses Skin no jaundice, no petechiae and no mottling Neuro oriented x3, CN's II-XII intact bilaterally, moves all extremities, no focal motor deficits and no sensory deficits noted Neuro Narrative: Patient is no sensory deficits, no motor deficits Speech: speech normal Psych affect normal Psych Narrative: Very pleasant, interacts appropriately Weight / BMI Weight Weight: 80.1 kg Body Mass Index (BMI) 38.9 ABG / Lab / Microbiology Data 09/03/24 09:15 09/03/24 09:15 Laboratory: Laboratory Results - last 24 hr 09/02/24 21:25: POC Glucose 262 H 09/03/24 08:24: POC Glucose 176 H 09/03/24 09:15: WBC 9.5, RBC 3.78 L, Hgb 11.5 L, Hct 34.7 L, MCV 91.8, MCH 30.4,MCHC 33.1, RDW Std Deviation 48.5 H, RDW Coeff of Óscar 14.4, Plt Count 281, MPV 10.9, Immature Gran % (Auto) 0.400, Neut % (Auto) 64.5, Lymph % (Auto) 22.9, [place] % (Auto) 9.8, Eos % (Auto) 1.9, Baso % (Auto) 0.5, Absolute Neuts (auto) 6.1, Absolute Lymphs (auto) 2.17, Nucleated RBC % 0, Sodium 138, Potassium 4.3, Chloride 106, Carbon Dioxide 20.8 L, Anion Gap 11, BUN 16, Creatinine 0.97, Estim Creat Clear Calc 40.44 L, Est GFR (MDRD) Non-Af 58 L, BUN/Creatinine Ratio 16.4, Glucose 176 H, Calcium 9.2, Total Bilirubin 0.47, AST 16, ALT 21, AlkalinePhosphatase 115 H, Total Protein 6.3, Albumin 3.6, Globulin 2.7, Albumin/Globulin Ratio 1.3 D/C Instructions Discharge Diet: Low fat / Low cholesterol and 1800 Calorie Control Diet Discharge Activity: Return to Normal Activity DC O2, CPAP, BIPAP Needs Home O2 Discharge instructions: No Meaningful Use Info Meaningful Use Meaningful Use Diagnoses (Choose all that apply): Ischemic CVA CVA Therapy Assessed for PT,OT and/or ST?: Yes Ischemic Stroke Antithrombotic order at d/c?: Yes Dx of Atrial fib/flutter?: No Anticoagulant at discharge?: No Reason anticoagulant not ordered: Treatment not Indicated Statin Dosing Therapy Reference: STATIN DOSE THERAPY REFERENCE: * Patients > 75 years receive moderate or high dose statin therapy. * Patients 75 years or YOUNGER should receive HIGH intensity statin dose unless contraindicated. You will be required to document reason for non-treatment if statin daily dose does not meet guidelines. HIGH DOSE STATIN THERAPY DAILY Atorvastatin > than or = to 40 mg Rosuvastatin > than or = to 20 mg Amlodipine + Atorvastatin > than or = to 2.5/40 mg Ezetimibe + Simvastatin 10/80 mg Simvastatin 80mg Statins at discharge?: Yes Primary Dx Acute Ischemic CVA?: Yes IV thrombolytic ordered during stay?: No Reason IV thrombolytic not ordered: Treatment not Indicated Discharge Plan Admission Admit Date/Time: 09/01/24 15:48 Primary Reason for Your Visit: Dizziness/hypertension Attending Provider: Dariana Wise Primary Care Provider: Kurt Lieberman Consulting Providers: Jason Walker; Roberto Quiñones; Estela Guzman; Sonali Ny; Monik Barker; Ronald Christianson; Candis Noel; Luis Crooks; Twin Hanna; Ralph Monet; Sherry Priest; Scott Fernandez; Jovita Gibson; Giovanni Norris; Magno Sheppard; Erik Pagan; Neil Loredo; Lux Driver; Shannen Wise; rAmen Ascencio;Severiano Ibarra; Ugo Rogel Instructions Additional Instructions / Restrictions: 1. Blood pressure currently is between 140 and 180. In the next 24 hours goal blood pressure will be 1 20-1 60 until your carotid endarterectomy is performed. Please follow-up with your primary care physician in the next week so we can reevaluate your blood pressure closely and titrate medications as needed Discharge Orders/Prescriptions Prescriptions: New amlodipine 10 mg Tablet 10 mg PO DAILY Qty: 30 1RF atorvastatin 40 mg Tablet 40 mg PO QHS Qty: 30 1RF aspirin 81 mg Tablet,Chewable 81 mg PO BREAKFAST Qty: 0 0RF carvedilol 12.5 mg Tablet 12.5 mg PO BIDCM Qty: 60 1RF clopidogrel 75 mg Tablet 75 mg PO DAILY Qty: 30 1RF isosorbide dinitrate 10 mg Tablet 5 mg PO TID Qty: 90 1RF metformin 500 mg tablet 500 mg PO BID Qty: 60 1RF Changed insulin glargine [Lantus Solostar U-100 Insulin] 100 unit/mL (3 mL) insulin pen 10 unit subcut QHS Qty: 15 0RF Discontinued metoprolol succinate 50 mg tablet extended release 24 hr 100 mg PO DAILY Referrals / Follow Up: Angela High MD [Med Staff - Branch Billing Payroll Clerk] - Within 1 Week Ugo Rogel MD [Med Staff - Active Staff] - Within 1 Week Kurt Lieberman MD [Primary Care Provider] - Choco Quinones MD [Non-Staff -Ordering Privileges] - See Referral Note (3 to 6months) Disposition Disposition (needs filled in before D/C Order can be placed): Home, Self Care Charges/Coding Visit Charges Inpatient E&M: 87768 Disch Hosp >30min 09/03/24 1404 <Electronically signed by Dariana Wise DO> Cosigner Signature (if applicable): CC: Dr. Angela High MD; Dr. Ugo Rogel MD; Dr. Kurt Lieberman MD; Dr. Dariana Wise DO; Dr. Choco Quinones MD~ Signed [facility] Work Phone: [phone] 291-241404-11-2025 Discharge summary [facility] Medical Records Department [address] [place] [address] Discharge Summary 09/03/24 1210 MR#: [id number] Acct: [id number] Name: CHELSEA MOODY Rep #:[id number] : 1940 83 From: Dariana Wise DO PCP: Dr. Kurt Lieberman MD Status:A DM IN [id number] Prov[facility] Date of Admission: 09/01/24 Date of Discharge: 09/03/24 Primary Care Physician: Dr. Kurt Lieberman MD Consultations 09/01/24 00:06 Consult: Tele-Neurology Routine Consulting Provider: [facility] Reason for Consult: Acute Ischemic Stroke/TIA EMERGENT Consult: No Notified: Yes Date Notified: 08/31/24 Time Notified: 00:38 Method of Notification: Answering Service Method of Consult:: Telemedicine Nursing Unit Staff Notify [facility] of Tele-Neurology Consult: Yes 09/01/24 10:56 Consult: Vascular Surgery Routine Consulting Provider: Ugo Rogel Reason for Consult: Critical HIRAL EMERGENT Consult: No Notified: Yes Date Notified: 09/01/24 Time Notified: 10:56 Method of Notification: Verbal Reason For Visit: HYPERTENSIVE EMERGENCY & TIA VS WATERSHED CVA Diagnosis Discharge Diagnosis (1) CVA (cerebral vascular accident): Status: Acute Code(s): I63.9 - Cerebral infarction, unspecified Medications at Discharge Home Medications amlodipine 10 mg tablet 10 mg PO DAILY #30 tabs 09/03/24 aspirin 81 mg chewable tablet 81 mg PO BREAKFAST #0 tabs 09/03/24 atorvastatin 40 mg tablet 40 mg PO QHS #30 tabs 09/03/24 carvedilol 12.5 mg tablet 12.5 mg PO BIDCM #60 tabs 09/03/24 clopidogrel 75 mg tablet 75 mg PO DAILY #30 tabs 09/03/24 insulin glargine 100 unit/mL (3 mL) subcutaneous pen (Lantus Solostar U-100 Insulin) 10 unit (0.1 mL) subcut QHS #15 mL 09/03/24 isosorbide dinitrate 10 mg tablet 5 mg (1/2 x 10 mg) PO TID #90 tabs 09/03/24 metformin 500 mg tablet 500 mg PO BID #60 tabs 09/03/24 Hospital Course Operations None Procedures EKG and - (CT brain/MRI brain/carotid duplex/CTA head and neck) Summary of Care Provided Minutes Spent on Discharge: 41 Hospital Course: Mrs. Underwood is an 83-year-old white female who presents emergency department at [facility] on 08/31/2024 with a chief complaint of dizziness and elevated blood pressure. Symptoms were acute and started a few hours prior to presentation and were gradual onset. She also admitted to generalized diffuse weakness. Blood pressure at home was 270/51 so she decided come to emergency departmentfor further evaluation. She stated on presentation her blood pressure has been poorly controlled for weeks with recent increased doses of hermetoprolol but she is not on any other medications besidesher metoprolol. She had no focal deficits on presentation. Vital signs emergency department on prese ntation showed a temperature 97.8, heart rate was 68, respiratory rate was 16, blood pressure was 224/66 and pulse ox was 98% room air. Her CBC was unremarkable. Her chemistry panel was overtly unremarkable. Blood glucose was 155 and patient is a known diabetic. Hemoglobin A1c was 7.8. Liver functions were normal. Troponins were normal x 3. BNP was normal. Total cholesterol 205with an LDL of 123 and HDL 47. B12, TSH, and folate were all within normal limits. CT of the brain on admission was unremarkable for any acute findings but did show chronic microvascular changes. With her blood pressurebeing markedly elevated and symptoms concerning to admitted with hypertensive emergency from strokeworkup was pursued is after blood pressure cuff emergency department she developed some neurological changes. MRI of the brain was done after admission and showed a punctate high right frontal lobe infarct with no mass effect or appreciated hemorrhagic transformation. CTA was not obtained on admission and a carotid duplex was ordered. Carotid duplex showed severe (greater than 70%) stenosis in the right extracranial internal carotid artery and mild less than 50% stenosis in the left extracranial internal carotid arterywith patent and antegrade flow in the vertebrals bilaterally. With the stroke finding on the right side and the carotid abnormalities on the right side vascular surgery was consulted and a CTA of the head neck was performed. Current recommendations include dual antiplatelet therapy with aspirin and Plavix and high intensity dose statin along with outpatient follow-up for possible intervention. This showed atherosclerotic calcification anterior and posterior intracranial c irculation most prominent at the right ICA bifurcation with resultant luminal narrowing. Echocardiogram showed an EF of 70% with stageI diastolic dysfunction and mild aortic valve insufficiency. Vascular surgery saw the placement and has upcoming appointment for intervention as an outpatient. She was also seen by neurology who recommended Plavix loading her with 600 mg and continuing aspirin and Plavix at 75 mg daily at the time of discharge as well as statin and blood pressure control. Blood pressure control for the first 24 hours was between 180 and 200. After that point in time we dropped her blood pressure goal from 140- 180 and that is where she was at the time of discharge. To obtain that control, we added Coreg 12.5 mg p.o. twice daily, amlodipine 10 mg p.o. daily and Isordil 5 mg 3times daily. We initiallytried Milagro however it dropped her blood pressure and cause a hypotensive episode which made her feel quite poorly and held discharge. Plan after 72 to 96 hours from the timeof event is blood pressure of 120-160. This is to be thegoal until her carotid is intervened upon. Her hemoglobin A1c was 7.8 so I did increase her basal insulin from 8-10 and added metformin 500 mg p.o. twice dailyto get her closer to 7. Statin 40 mg was also added. Prescriptions for her medications were sent to local pharmacy at the time of discharge. We have askedthat she follow-up with neurology in the next 3 to 6 months. She is to follow-up with Dr. Rogel as instructed by his office as they will call and her primarycare physician within the next week. She will most likely need up titration on her blood pressure medication to attain goal. Patient was able to be dischargedhome in stablecondition on 09/03/2024. Discharge diagnoses: Acute right frontal lobe stroke Hypertensive emergency Carotid artery stenosis right greater than left Hyperlipidemia DM-2 uncontrolled Obesity Hypertension Physical Exam Const alert, oriented x3, no apparent distress, no limitations and well nourished; Negative for average body habitus or healthy appearing Constitutional Narrative: Very pleasant, obese, white female, sitting up in bed, multiple family members are at the bedside, patient appears comfortable, nontoxic General Appearance: cooperative, comfortable, well kempt and well developed Exam Limitations: no limitations Nutritional Appearance: obese HEENT normocephalic, head/scalp atraumatic and moist oral mucous membranes; Negative for hearing grossly normal bilaterally HEENT Narrative: Mallampati 3, no thrush, mild hearing loss Eyes conjunctivae normal Eyes Narrative: No scleral icterus Neck supple Neck Narrative: Trachea midline Resp normal respiratory effort, no retractions, no use of accessory muscles and clearto auscultation bilaterally Auscultation: Negative for rales, rhonchi or wheezes Cardio regular rate, regular rhythm, S1 normal heart sound, S2 normal heart sound, no murmurs, no rub, no gallops and no clicks GI normal to inspection, nondistended, normoactive bowel sounds, soft to palpation and non-tender Extremity no clubbing, cyanosis or edema Extremity Narrative: 2+ pedal and radial pulses Skin no jaundice, no petechiae and no mottling Neuro oriented x3, CN's II-XII intact bilaterally, moves all extremities, no focal motor deficits and no sensory deficits noted Neuro Narrative: Patient is no sensory deficits, no motor deficits Speech: speech normal Psych affect normal Psych Narrative: Very pleasant, interacts appropriately Weight / BMI Weight Weight: 80.1 kg Body Mass Index (BMI) 38.9 ABG / Lab / Microbiology Data 09/03/24 09:15 09/03/24 09:15 Laboratory: Laboratory Results - last 24 hr 09/02/24 21:25: POC Glucose 262 H 09/03/24 08:24: POC Glucose 176 H 09/03/24 09:15: WBC 9.5, RBC 3.78 L, Hgb 11.5 L, Hct 34.7 L, MCV 91.8, MCH 30.4,MCHC 33.1, RDW Std Deviation 48.5 H, RDW Coeff of Óscar 14.4, Plt Count 281, MPV 10.9, Immature Gran % (Auto) 0.400, Neut% (Auto) 64.5, Lymph % (Auto) 22.9, [place] % (Auto) 9.8, Eos % (Auto) 1.9, Baso % (Auto) 0.5, Absolute Neuts (auto) 6.1, Absolute Lymphs (auto) 2.17, Nucleated RBC % 0, Sodium 138, Potassium 4.3, Chloride 106, Carbon Dioxide 20.8 L, Anion Gap 11, BUN 16, Creatinine 0.97, Estim Creat Clear Calc 40.44 L, Est GFR (MDRD) Non-Af 58 L, BUN/Creatinine Ratio 16.4, Glucose 176 H, Calcium 9.2, Total Bilirubin 0.47, AST 16, ALT 21, AlkalinePhosphatase 115 H, Total Protein 6.3, Albumin 3.6, Globulin 2.7, Albu min/Globulin Ratio 1.3 D/C Instructions Discharge Diet: Low fat / Low cholesterol and 1800 Calorie Control Diet Discharge Activity: Return to Normal Activity DC O2, CPAP, BIPAP Needs Home O2 Discharge instructions: No Meaningful Use Info Meaningful Use Meaningful Use Diagnoses (Choose all that apply): Ischemic CVA CVA Therapy Assessed for PT,OT and/or ST?: Yes Ischemic Stroke Antithrombotic order at d/c?: Yes Dx of Atrial fib/flutter?: No Anticoagulant at discharge?: No Reason anticoagulant not ordered: Treatment not Indicated Statin Dosing Therapy Reference: STATIN DOSE THERAPY REFERENCE: * Patients > 75 years receive moderate or high dose statin therapy. * Patients 75 years or YOUNGER should receive HIGH intensity statin dose unless contraindicated. You will be required to document reason for non-treatment if statin daily dose does not meet guidelines. HIGH DOSE STATIN THERAPY DAILY Atorvastatin > than or = to 40 mg Rosuvastatin > than or = to 20 mg Amlodipine + Atorvastatin > than or = to 2.5/40 mg Ezetimibe + Simvastatin 10/80 mg Simvastatin 80mg Statins at discharge?: Yes Primary Dx Acute Ischemic CVA?: Yes IV thrombolytic ordered during stay?: No Reason IV thrombolytic not ordered: Treatment not Indicated Discharge Plan Admission Admit Date/Time: 09/01/24 15:48 Primary Reason for Your Visit: Dizziness/hypertension Attending Provider: Dariana Wise Primary Care Provider: Kurt Lieberman Consulting Providers: Jason Walker; Roberto Quiñones; Estela Guzman; Sonali Ny; Monik Barker; Ronald Christianson; Candis Noel; Luis Crooks; Twin Hanna; Ralph Monet; Sherry Priest; Scott Fernandez; Jovita Gibson; Giovanni Norris; Magno Sheppard; Erik Pagan; Neil Loredo; Lux Driver; Shannen Wise; Armen Ascencio;Severiano Ibarra; Ugo Rogel Instructions Additional Instructions / Restrictions: 1. Blood pressure currently is between 140 and 180. In the next 24 hours goal blood pressure will be 1 20-1 60 until your carotid endarterectomy is performed. Please follow-up with your primary care physician in the next week so we can reevaluate your blood pressure closely and titrate medications as needed Discharge Orders/Prescriptions Prescriptions: New amlodipine 10 mg Tablet 10 mg PO DAILY Qty: 30 1RF atorvastatin 40 mg Tablet 40 mg PO QHS Qty: 30 1RF aspirin 81 mg Tablet,Chewable 81 mg PO BREAKFAST Qty: 0 0RF carvedilol 12.5 mg Tablet 12.5 mg PO BIDCM Qty: 60 1RF clopidogrel 75 mg Tablet 75 mg PO DAILY Qty: 30 1RF isosorbide dinitrate 10 mg Tablet 5 mg PO TID Qty: 90 1RF metformin 500 mg tablet 500 mg PO BID Qty: 60 1RF Changed insulin glargine [Lantus Solostar U-100 Insulin] 100 unit/mL (3 mL) insulin pen 10 unit subcut QHS Qty: 15 0RF Discontinued metoprolol succinate 50 mg tablet extended release 24 hr 100 mg PO DAILY Referrals / Follow Up: Angela High MD [Med Staff - Branch Billing Payroll Clerk] - Within 1 Week Ugo Rogel MD [Med Staff - Active Staff] - Within 1 Week Kurt Lieberman MD [Primary Care Provider] - Choco Quinones MD [Non-Staff -Ordering Privileges] - See Referral Note (3 to 6months) Disposition Disposition (needs filled in before D/C Order can be placed): Home, Self Care Charges/Coding Visit Charges Inpatient E&M: 97355 Disch Hosp >30min 09/03/24 1404 Cosigner Signature (if applicable): CC: Dr. Angela High MD; Dr. Ugo Rogel MD; Dr. Kurt Lieberman MD; Dr. Dariana Wise DO; Dr. Choco Quinones MD~ Signed [facility]04-11-2025 [facility] Medical Records Department [address] [place] [id number] Discharge Summary 09/03/24 1210 MR#: [id number] Acct: [id number] Name: CHELSEA MOODY Rep #: [id number] : 1940 83 From: Dariana Wise DO PCP: Dr. Kurt Lieberman MD Status:ADM IN Location: [place] [id number] Providers Date of Admission: 09/01/24 Date of Discharge: 09/03/24 Primary Care Physician: Dr. Kurt Lieberman MD Consultations 09/01/24 00:06 Consult: Tele-Neurology Routine Consulting Provider: [facility] Reason for Consult: Acute Ischemic Stroke/TIA EMERGENT Consult: No MD Notified: Yes Date Notified: 08/31/24 Time Notified: 00:38 Method of Notification: Answering Service Method of Consult:: Telemedicine Nursing Unit Staff Notify [facility] of Tele-Neurology Consult: Yes 09/01/24 10:56 Consult: Vascular Surgery Routine Consulting Provider: Ugo Rogle Reason for Consult: Critical HIRAL EMERGENT Consult: No MD Notified: Yes Date Notified: 09/01/24 Time Notified: 10:56 Method of Notification: Verbal Reason For Visit: HYPERTENSIVE EMERGENCY TIA VS WATERSHED CVA Diagnosis Discharge Diagnosis (1) CVA (cerebral vascular accident): Status: Acute Code(s): I63.9 - Cerebral infarction, unspecified Medications at Discharge Home Medications amlodipine 10 mg tablet 10 mg PO DAILY #30 tabs 09/03/24 aspirin 81 mg chewable tablet 81 mg PO BREAKFAST #0 tabs 09/03/24 atorvastatin 40 mg tablet 40 mg PO QHS #30 tabs 09/03/24 carvedilol 12.5 mg tablet 12.5 mg PO BIDCM #60 tabs 09/03/24 clopidogrel 75 mg tablet 75 mg PO DAILY #30 tabs 09/03/24 insulin glargine 100 unit/mL (3 mL) subcutaneous pen (Lantus Solostar U-100 Insulin) 10 unit (0.1 mL) subcut QHS #15 mL 09/03/24 isosorbide dinitrate 10 mg tablet 5 mg (1/2 x 10 mg) PO TID #90 tabs 09/03/24 metformin 500 mg tablet 500 mg PO BID #60 tabs 09/03/24 Hospital Course Operations None Procedures EKG and - (CT brain/MRI brain/carotid duplex/CTA head and neck) Summary of Care Provided Minutes Spent on Discharge: 41 Hospital Course: Mrs. Underwood is an 83-year-old white female who presents emergency department at [facility] on 08/31/2024 with a chief complaint of dizziness and elevated blood pressure. Symptoms were acute and started a few hours prior to presentation and were gradual onset. She also admitted to generalized diffuse weakness. Blood pressure at home was 270/51 so she decided come to emergency department for further evaluation. She stated on presentation her blood pressure has been poorly controlled for weeks with recent increased doses of her metoprolol but she is not on any other medications besides her metoprolol. She had no focal deficits on presentation. Vital signs emergency department on presentation showed a temperature 97.8, heart rate was 68, respiratory rate was 16, blood pressure was 224/66 and pulse ox was 98% room air. Her CBC was unremarkable. Her chemistry panel was overtly unremarkable. Blood glucose was 155 and patient is a known diabetic. Hemoglobin A1c was 7.8. Liver functions were normal. Troponins were normal x 3. BNP was normal. Total cholesterol 205 with an LDL of 123 and HDL 47. B12, TSH, and folate were all within normal limits. CT of the brain on admission was unremarkable for any acute findings but did show chronic microvascular changes. With her blood pressure being markedly elevated and symptoms concerning to admitted with hypertensive emergency from stroke workup was pursued is after blood pressure cuff emergency department she developed some neurological changes. MRI of the brain was done after admission and showed a punctate high right frontal lobe infarct with no mass effect or appreciated hemorrhagic transformation. CTA was not obtained on admission and a carotid duplex was ordered. Carotid duplex showed severe (greater than 70%) stenosis in the right extracranial internal carotid artery and mild less than 50% stenosis in the left extracranial internal carotid artery with patent and antegrade flow in the vertebrals bilaterally. With the stroke finding on the right side and the carotid abnormalities on the right side vascular surgery was consulted and a CTA of the head neck was performed. Current recommendations include dual antiplatelet therapy with aspirin and Plavix and high intensity dose statin along with outpatient follow-up for possible intervention. This showed atherosclerotic calcification anterior and posterior intracranial circulation most prominent at the right ICA bifurcation with resultant luminal narrowing. Echocardiogram showed an EF of 70% with stage I diastolic dysfunction and mild aortic valve insufficiency. Vascular surgery saw the placement and has upcoming appointment for intervention as an outpatient. She was also seen by neurology who recommended Plavix loading her with 600 mg (more content not included)...[facility]04-10-2025 Progress note Author Monik Barker [facility] Note Date/Time September 02, 2024 9:2 1pm [facility] Medical Records Department [address] [place] [address] Progress Note - Neurology 09/02/24 1442 MR#: [id number] Acct: [id number] Name: CHELSEA MOODY Rep #:[id number] : 1940 83 From: Monik Barker MD PCP: Dr. Kurt Lieberman MD Status:A DM IN Location: [facility] [id number] Objective Data Objective Data Vital Signs: Vital Signs Temp Pulse Resp BP Pulse Ox O2 Del Method FiO2 97.9 F 77 17 148/78 H 97 Room Air 21 09/02/24 12:35 09/02/24 13:26 09/02/24 12:35 09/02/24 13:40 09/02/24 12:35 09/02/24 13:05 09/01/24 01:11 Oxygen Delivery Method Room Air Weight: 78.7 kg Body Mass Index (BMI) 38.9 Intake & Output: Intake and Output for Last 24 Hours 08/31/24 09/01/24 09/02/24 23:59 23:59 23:59 Intake Total 360 / 360 Balance 360 / 360 Lab / Micro Data 08/31/24 21:00 08/31/24 21:00 Labs: Laboratory Results - last 24 hr 09/01/24 23:04: POC Glucose 222 H Radiography Diagnostic Testing: Radiology Impression Echocardiogram 08/31/24 23:41 Interpretation Summary Normal LV size. Left ventricular systolic function is normal. The left ventricular ejection fraction is 70 %. Stage 1 diastolic dysfunction. Mild (1+) aortic valve insufficiency. Contrast injection was performed. Ordering Physician: Severiano Ibarra Performed By: Jer Valenzuela RCS Head/Neck CTA 09/01/24 14:00 IMPRESSION: Atherosclerotic calcification anterior and posterior intracranial circulation asdescribed above, most prominent at the right ICA bifurcation with resultant luminal narrowing. No evidence of acute occlusion, dissection or aneurysm Reading Location: [facility] Physical Exam Narrative -? NEURO: -? Mental Status: The patient was alert and oriented to time, place, andperson. Normal recent/remote memory, concentration, and general fund of knowledge. -? Language: speech is clear? Naming, repetition, fluency, and comprehension intact. -? Cranial Nerves: EOMI, visual ozuna full, no facial asymmetry, facialsensation intact, hearing intact, tongue midline, no evidence of atrophy or fibrillations. -? Motor: normal bulk, tone, and strength throughout. No pronator drift or satelliting. Upper and lower extremities equal bilaterally. -? Tone: is normal and bulk is normal -? Sensation- Intact to light touch bilaterally -? Coordination: FTN and HTS intact ithout atxia today, -? Gait- deferred Subject: Neurology Subjective Patient with a syncopal episode today - began feeling badly and lightheaded. BP was in 110s-80s at the time. Has recovered with BP in 140s and currently feels improved. EEG Results Procedure Details EEG Procedure Details: CHELSEA MOODY is a 83 year old F with a past medical history of , who presents for evaluation of Electroencephalogram on DATE at TIME Assessment and Plan: Stroke Assessment/Plan CHELSEA MOODY is a 83 F with a past medical history of HTN and DM2, being evaluated by Teleneurology for for stroke. 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 Agree with vascular surgery evaluation for CEA or HIRAL. Diagnosis: stroke related LG - Anti-platelet medication: load with total of 600mg Plavix since DAPT ok with vascular surgery, cont with SAS, cont ASA 81mg + Plavix 75mg until intervention,then defer to vascular surgery. - SBP goal 140-180 for 3 days, then decrease to 120-160 SBP - Occupational/ Physical therapy consults - NPO until swallow evaluation. IVF until able to take po - DVT prophylaxis with SCDs and heparin SQ - Vascular risk factor modification. The following are the recommended guidelines: LDL Goal < 70 - cont lipitor 40mg Smoking Cessation Diabetes Management alf blood pressure control should achieve <130/80 mmHg. BP managementshould aim to achieve alf contorl in a reasonable amount of time, taking into consideration the individual patient's requirements and characteristics. Weight Management: Goal for BMI is 18.5 -24.9 kg/m2 Alcohol: No more than 2 drinks/day for men or 1 drink/day for non- women - Promote lifestyle modification: weight control, physical activity, moderation of alcohol intake, moderate sodium intake. Followup with PCP in 1-2 weeks, and in Neurology clinic in 6-12 weeks I personally attended this patient and spent a total time of 45minutes evaluating this patient including clinical assessment, review of chart, medical history imaging, and determining appropriate treatment and workup. 09/02/242120 <Electronically signed by Monik Barker MD> Cosigner Signature (if applicable): CC: ~ Signed [facility] Work Phone: 1(439) 383-394604-10-2025 Progress note [facility] Medical Records Department [address] [place] [address] Progress Note - Neurology 09/02/24 1442 MR#: [id number] Acct: [id number] Name: CHELSEA MOODY Rep #:[id number] : 1940 83 From: Monik Barker MD PCP: Dr. Kurt Lieberman MD Status:A DM IN Location: [place] [address] Objective Data Objective Data Vital Signs: Vital Signs Temp Pulse Resp BP Pulse Ox O2 Del Method FiO2 97.9 F 77 17 148/78 H 97 Room Air 21 09/02/24 12:35 09/02/24 13:26 09/02/24 12:35 09/02/24 13:40 09/02/24 12:35 09/02/24 13:05 09/01/24 01:11 Oxygen Delivery Method Room Air Weight: 78.7 kg Body Mass Index (BMI) 38.9 Intake & Output: Intake and Output for Last 24 Hours 08/31/24 09/01/24 09/02/24 23:59 23:59 23:59 Intake Total 360 / 360 Balance 360 / 360 Lab / Micro Data 08/31/24 21:00 08/31/24 21:00 Labs: Laboratory Results - last 24 hr 09/01/24 23:04: POC Glucose 222 H Radiography Diagnostic Testing: Radiology Impression Echocardiogram 08/31/24 23:41 Interpretation Summary Normal LV size. Left ventricular systolic function is normal. The left ventricular ejection fraction is 70 %. Stage 1 diastolic dysfunction. Mild (1+) aortic valve insufficiency. Contrast injection was performed. Ordering Physician: Severiano Ibarra Performed By: Jer Valenzuela RCS Head/Neck CTA 09/01/24 14:00 IMPRESSION: Atherosclerotic calcification anterior and posterior intracranial circulation asdescribed above, most prominent at the right ICA bifurcation with resultant luminal narrowing. No evidence of acute occlusion, dissection or aneurysm Reading Location: [facility] Physical Exam Narrative -? NEURO: -? Mental Status: The patient was alert and oriented to time, place, andperson. Normal recent/remote memory, concentration, and general fund of knowledge. -? Language: speech is clear? Naming, repetition, fluency, and comprehension intact. -? Cranial Nerves: EOMI, visual ozuna full, no facial asymmetry, facialsensation intact, hearing intact, tongue midline, no evidence of atrophy or fibrillations. -? Motor: normal bulk, tone, and strength throughout. No pronator drift or satelliting. Upper and lower extremities equal bilaterally. -? Tone: is normal and bulk is normal -? Sensation- Intact to light touch bilaterally -? Coordination: FTN and HTS intact ithout atxia today, -? Gait- deferred Subject: Neurology Subjective Patient with a syncopal episode today - began feeling badly and lightheaded. BP was in 110s-80s at the time. Has recovered with BP in 140s and currently feels improved. EEG Results Procedure Details EEG Procedure Details: CHELSEA MOODY is a 83 year old F with a past medical history of , who presents for evaluation of Electroencephalogram on DATE at TIME Assessment and Plan: Stroke Assessment/Plan CHELSEA MOODY is a 83 F with a past medical history of HTN and DM2, being evaluated by Teleneurology for for stroke. 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 Agree with vascular surgery evaluation for CEA or HIRAL. Diagnosis: stroke related LG - Anti-platelet medication: load with total of 600mg Plavix since DAPT ok with vascular surgery, cont with SAS, cont ASA 81mg + Plavix 75mg until intervention,then defer to vascular surgery. - SBP goal 140-180 for 3 days, then decrease to 120-160 SBP - Occupational/ Physical therapy consults - NPO until swallow evaluation. IVF until able to take po - DVT prophylaxis with SCDs and heparin SQ - Vascular risk factor modification. The following are the recommended guidelines: LDL Goal < 70 - cont lipitor 40mg Smoking Cessation Diabetes Management alf blood pressure control should achieve <130/80 mmHg. BP managementshould aim to achievelong term contorl in a reasonable amount of time, taking into consideration the individual patient's requirements and characteristics. Weight Management: Goal for BMI is 18.5 -24.9 kg/m2 Alcohol: No more than 2 drinks/day for men or 1 drink/day for non- women - Promote lifestyle modification: weight control, physical activity, moderation of alcohol intake, moderate sodium intake. Followup with PCP in 1-2 weeks, and in Neurology clinic in 6-12 weeks I personally attended this patient and spent a total time of 45minutes evaluating this patient including clinical assessment, review of chart, medical history imaging, and determining appropriate treatment and workup. 09/02/242120 Cosigner Signature (if applicable): CC: ~ Signed [facility]04-10-2025 Progress note Author Dariana Wise [facility] Note Date/Time September 02, 2024 6:5 1pm [facility] Medical Records Department [address] [place] [address] Progress Note - Hospitalist 09/02/24 1718 MR#: [id number] Acct: [id number] Name: CHELSEA MOODY Rep #:[id number] : 1940 83 From: Dariana Wise DO PCP: Dr. Kurt Lieberman MD Status:A DM IN Location: [place] [address] Reason for Visit Reason for Visit: Dizziness/hypertension Subjective Subjective Patient was doing well and anxious to go home. She unfortunately experienced a bout of hypotension in the afternoon. Her blood pressure was markedly elevated so he had uptitrated her medications some. It does not that this was vasovagal and probably more medication related. She was given 1 L of IV fluids and bolus helped. Objective Data Objective Data Vital Signs: Vital Signs Temp Pulse Resp BP Pulse Ox O2 Del Method FiO2 97.9 F 72 16 152/46 H 98 Room Air 21 09/02/24 16:00 09/02/24 16:00 09/02/24 16:00 09/02/24 16:00 09/02/24 16:00 09/02/24 16:00 09/01/24 01:11 Oxygen Delivery Method Room Air Weight: 78.7 kg Body Mass Index (BMI) 38.9 Intake & Output: Intake and Output for Last 24 Hours 08/31/24 09/01/24 09/02/24 23:59 23:59 23:59 Intake Total 360 / 360 240 / 240 Balance 360 / 360 240 / 240 Lab / Micro Data 08/31/24 21:00 08/31/24 21:00 Labs: Laboratory Results - last 24 hr 09/01/24 23:04: POC Glucose 222 H Radiography Diagnostic Testing: Radiology Impression Echocardiogram 08/31/24 23:41 Interpretation Summary Normal LV size. Left ventricular systolic function is normal. The left ventricular ejection fraction is 70 %. Stage 1 diastolic dysfunction. Mild (1+) aortic valve insufficiency. Contrast injection was performed. Ordering Physician: Severiano Ibarra Performed By: Jer Valenzulea RCS Physical Exam Const alert, oriented x3, no apparent distress and well nourished; Negative for average body habitus Constitutional Narrative: Very pleasant, obese, white female, sitting up in bed, family is at the bedside,patient appears comfortable, nontoxic HEENT head/scalp atraumatic and moist oral mucous membranes HEENT Narrative: Mallampati 2, no thrush Eyes Eyes Narrative: No scleral icterus Neck Neck Narrative: Trachea midline Resp normal respiratory effort, no retractions, no use of accessory muscles and clearto auscultation bilaterally Auscultation: Negative for rales, rhonchi or wheezes Cardio regular rate, regular rhythm, S1 normal heart sound, S2 normal heart sound, no murmurs, no rub, no gallops and no clicks GI normal to inspection, nondistended, normoactive bowel sounds, soft to palpation and non-tender Extremity no clubbing, cyanosis or edema Extremity Narrative: 2+ pedal and radial pulses Neuro oriented x3, moves all extremities and no focal motor deficits Neuro Narrative: Neurological changes have resolved Speech: speech normal Psych affect normal Psych Narrative: Very pleasant, interacts appropriately Assessment & Plan Assessment/Plan (1) CVA (cerebral vascular accident): PLAN: Plan Acute right frontal lobe stroke secondary to hypertensive emergency -Still allow for some permissive hypertension with goal blood pressure between 180 and 200. -Continue Coreg 12.5 twice daily -Continue amlodipine but increase to 10 mg -Continue aspirin 81 mg daily -Patient already started Plavix but will load 600 mg per discussion with neurology -Continue atorvastatin 40 mg daily -Hemoglobin A1c was 7.8 -Total cholesterol is 205 with an LDL of 123 and HDL of 47 -PT/OT following -Vascular surgery plans to perform outpatient endarterectomy versus stenting with discharge on aspirin Plavix and statin -Neurology is following and agrees with current plan -Current blood pressure goals are for 140-180 for the next 48 hours then a goal of 120-160 until vascular can revascularize her right-sided carotid artery Hypertensive emergency -Continue Coreg 12.5 mg daily -Increase amlodipine to 5 mg daily -Blood pressure currently should be between 140-180 -PRNs available for systolic blood pressure greater 180 Hyperlipidemia -LDL is above goal of 70 -Current LDL is 123 -Statin initiated per stroke protocol Bilateral carotid artery stenosis right greater than left -Given right sided stroke and critical stenosis on the right vascular surgery consulted -Dual antiplatelet therapy -Statin -Outpatient referral for probable intervention in the future DM-2 -Hemoglobin A1c is 7.8 -Increase basal insulin to 10 units -Start metformin 500 mg twice daily at discharge Obesity -BMI is 38.9 -Recommend weight loss -Complicates treatment, prognosis, outcomes DVT prophylaxis -Continue subcu heparin twice daily CODE STATUS -DNR CCA with no intubation Disposition: -Initial plan was to discharge home today however patient experienced a transient hypotensive issue we will monitor through tomorrow. She was fluid responsive. Charges/Coding Visit Charges Inpatient E&M: 07082 Subs Hosp L2 09/02/24 1851 <Electronically signed by Dariana Wise DO> Cosigner Signature (if applicable): CC: ~ Signed [facility] Work Phone: 1(468) 966-370704-10-2025 Progress note [facility] Medical Records Department [address] [place] [address] Progress Note - Hospitalist 09/02/24 1718 MR#: [id number] Acct: [id number] Name: CHELSEA MOODY Rep #:[id number] : 1940 83 From: Dariana Wise DO PCP: Dr. Kurt Lieberman MD Status:A DM IN Location: [place] [address] Reason for Visit Reason for Visit: Dizziness/hypertension Subjective Subjective Patient was doing well and anxious to go home. She unfortunately experienced a bout of hypotension in the afternoon. Her blood pressure was markedly elevated so he had uptitrated her medications some. It does not that this was vasovagal and probably more medication related. She was given 1 L of IV fluids and bolus helped. Objective Data Objective Data Vital Signs: Vital Signs Temp Pulse Resp BP Pulse Ox O2 Del Method FiO2 97.9 F 72 16 152/46 H 98 Room Air 21 09/02/24 16:00 09/02/24 16:00 09/02/24 16:00 09/02/24 16:00 09/02/24 16:00 09/02/24 16:00 09/01/24 01:11 Oxygen Delivery Method Room Air Weight: 78.7 kg Body Mass Index (BMI) 38.9 Intake & Output: Intake and Output for Last 24 Hours 08/31/24 09/01/24 09/02/24 23:59 23:59 23:59 Intake Total 360 / 360 240 / 240 Balance 360 / 360 240 / 240 Lab / Micro Data 08/31/24 21:00 08/31/24 21:00 Labs: Laboratory Results - last 24 hr 09/01/24 23:04: POC Glucose 222 H Radiography Diagnostic Testing: Radiology Impression Echocardiogram 08/31/24 23:41 Interpretation Summary Normal LV size. Left ventricular systolic function is normal. The left ventricular ejection fraction is 70 %. Stage 1 diastolic dysfunction. Mild (1+) aortic valve insufficiency. Contrast injection was performed. Ordering Physician: Severiano Ibarra Performed By: Jer Valenzuela RCS Physical Exam Const alert, oriented x3, no apparent distress and well nourished; Negative for average body habitus Constitutional Narrative: Very pleasant, obese, white female, sitting up in bed, family is at the bedside,patient appears comfortable, nontoxic HEENT head/scalp atraumatic and moist oral mucous membranes HEENT Narrative: Mallampati 2, no thrush Eyes Eyes Narrative: No scleral icterus Neck Neck Narrative: Trachea midline Resp normal respiratory effort, no retractions, no use of accessory muscles and clearto auscultation bilaterally Auscultation: Negative for rales, rhonchi or wheezes Cardio regular rate, regular rhythm, S1 normal heart sound, S2 normal heart sound, no murmurs, no rub, no gallops and no clicks GI normal to inspection, nondistended, normoactive bowel sounds, soft to palpation and non-tender Extremity no clubbing, cyanosis or edema Extremity Narrative: 2+ pedal and radial pulses Neuro oriented x3, moves all extremities and no focal motor deficits Neuro Narrative: Neurological changes have resolved Speech: speech normal Psych affect normal Psych Narrative: Very pleasant, interacts appropriately Assessment & Plan Assessment/Plan (1) CVA (cerebral vascular accident): PLAN: Plan Acute right frontal lobe stroke secondary to hypertensive emergency -Still allow for some permissive hypertension with goal blood pressure between 180 and 200. -Continue Coreg 12.5 twice daily -Continue amlodipine but increase to 10 mg -Continue aspirin 81 mg daily -Patient already started Plavix but will load 600 mg per discussion with neurology -Continue atorvastatin 40 mg daily -Hemoglobin A1c was 7.8 -Total cholesterol is 205 with an LDL of 123 and HDL of 47 -PT/OT following -Vascular surgery plans to perform outpatient endarterectomy versus stenting with discharge on aspirin Plavix and statin -Neurology is following and agrees with current plan -Current blood pressure goals are for 140-180 for the next 48 hours then a goal of 120-160 until vascular can revascularize her right-sided carotid artery Hypertensive emergency -Continue Coreg 12.5 mg daily -Increase amlodipine to 5 mg daily -Blood pressure currently should be between 140-180 -PRNs available for systolic blood pressure greater 180 Hyperlipidemia -LDL is above goal of 70 -Current LDL is 123 -Statin initiated per stroke protocol Bilateral carotid artery stenosis right greater than left -Given right sided stroke and critical stenosis on the right vascular surgery consulted -Dual antiplatelet therapy -Statin -Outpatient referral for probable intervention in the future DM-2 -Hemoglobin A1c is 7.8 -Increase basal insulin to 10 units -Start metformin 500 mg twice daily at discharge Obesity -BMI is 38.9 -Recommend weight loss -Complicates treatment, prognosis, outcomes DVT prophylaxis -Continue subcu heparin twice daily CODE STATUS -DNR CCA with no intubation Disposition: -Initial plan was to discharge home today however patient experienced a transient hypotensive issuewe will monitor through tomorrow. She was fluid responsive. Charges/Coding Visit Charges Inpatient E&M: 21671 Subs Hosp L2 09/02/24 1851 Cosigner Signature (if applicable): CC: ~ Signed [facility]04-10-2025 Consult note Author Sonali Haro [facility] Note Date/Time September 02, 2024 4:0 1pm [facility] Medical Records Department [address] [place] [address] Consultation - Surgical 09/01/24 1427 MR#: [id number] Acct: [id number] Name: CHELSEA MOODY Rep #:[id number] : 1940 83 From: Sonali TOMLINSON PCP: Dr. Kurt Lieberman MD Status:A DM IN Location: [place] [address]- 1 Assessment & Plan Assessment/Plan (1) CVA (cerebral vascular accident): (2) Stenosis of right carotid artery: PLAN: Plan R hemispheric infarct on MRI. Reviewed CTA images, R ICA 75% stenosis by NASCET which correlates to carotid duplex findings. Surgical intervention is recommended; given her stroke would plan to coordinate on an outpatient basis inthe next 2-4 weeks. Will need to ensure that her hypertension is better controlled prior to surgical intervention. This was discussed with patient and her family at bedside and all questions/concerns were addressed. Recommend DAPT with ASA 81mg daily and Plavix 75mg daily. Recommend high- intensity statin. Plan for outpatient follow-up in the office next week. HPI Consult Data Date of Consult: 09/02/24 HPI Narrative HPI Narrative: CHELSEA MOODY, is a 83 F who presented to the [facility] ER after an episode of darkening of her vision (both eyes), presyncope, and feeling off; in the ER she was found to have hypertensive emergency with systolic BP as high as 266 mmHg. After receiving a dose of IV hydralazine patient's daughter observed an episode of slurred speech, patient reports this lasted less than an hour. She was admitted for stroke workup and BP management. She had Brain MRI which revealed acute punctate R frontal lobe infarct. She had carotid duplex which revealed R ICA stenosis >70% with max PSV in the proximal ICA 529/160 cm/s. Head and Neck CTA was then ordered. I saw patient resting in bed with multiple family members at bedside. She and they agreed that she is back to her baseline; no persistent slurred speech, no facial droop, moving all extremities, no vision changes, no sensory deficits. She denies any prior history of CVA or TIA. She also denies any history of CAD/CHF/prior PCI, COPD/asthma, CKD, prior vascular surgical interventions. [facility] Medical History GERD (gastroesophageal reflux disease) Hypertension Diabetes Home Medications ?Medication ?Instructions ?Recorded ?Last Taken ?Type insulin glargine 100 unit/mL (3 8 unit subcut QHS 01/17 Unknown History mL) subcutaneous pen (Lantus Solostar U-100 Insulin) metoprolol succinate 50 mg 100 mg PO DAILY 08/31/24 Un known History tablet,extended release 24 hr Allergy/AdvReac Type Severity Reaction Status Date / Time No Known Allergies Allergy Verified 08/31/24 19:32 Social History Smoking Status: Never smoker Physical Exam Const alert, oriented x3 and no apparent distress General Appearance: cooperative and comfortable HEENT normocephalic, head/scalp atraumatic and external nose normal Eyes EOMs intact bilaterally General Eye: normal appearance of both eyes Neck General: normal visual inspection and trachea midline Resp normal respiratory effort, no retractions and no use of accessory muscles Effort and Inspection: able to speak in complete sentences; Negative for labored, grunting or stridor Cardio regular rate and regular rhythm Extremity normal to inspection and no clubbing, cyanosis or edema Skin no rashes or lesions noted Trauma: no lacerations or abrasions Neuro oriented x3, CN's II-XII intact bilaterally, moves all extremities, no focal motor deficits and no sensory deficits noted Speech: speech normal Psych mental status grossly normal Appearance: grossly normal Attitude: calm and engaged Activity / Motor Behavior: appropriate eye contact Speech: normal speech Mood & Affect: euthymic mood Judgement: judgement good Lab / Micro Data 08/31/24 21:00 08/31/24 21:00 Labs: Laboratory Results - last 24 hr 08/31/24 21:00: WBC 11.0, RBC 4.27, Hgb 13.1, Hct 38.5, MCV 90.2, MCH 30.7, MCHC34.0, RDW Std Deviation 47.4 H, RDW Coeff of Óscar 14.3, Plt Count 296, MPV 10.7, Immature Gran % (Auto) 0.500, Neut % (Auto) 61.5, Lymph % (Auto) 24.9, [place] % (Auto) 9.1, Eos % (Auto) 3.2, Baso % (Auto) 0.8, Absolute Neuts (auto) 6.8, Absolute Lymphs (auto) 2.74, Nucleated RBC % 0, Sodium 136, Potassium 4.2, Chloride 103, Carbon Dioxide 20.7 L, Anion Gap 12, BUN 19, Creatinine 0.99, Estim Creat Clear Calc 39.57 L, Est GFR (MDRD) Non-Af 57 L, BUN/Creatinine Ratio 18.8, Glucose 155 H, Hemoglobin A1c 7.8, Calcium 9.1, Total Bilirubin 0.26, AST 21, ALT 26, Alkaline Phosphatase 123 H, Troponin T High Sens 12, NT pro BNP II 245, Total Protein 6.6, Albumin 3.8, Globulin 2.7, Albumin/Globulin Ratio 1.4 08/31/24 22:36: POC Glucose 141 H 08/31/24 22:51: Urine Color Yellow, Urine Clarity Clear, Urine pH 6.0, Ur Specific Husser 1.010, Urine Protein Negative, Urine Glucose (UA) Normal, UrineKetones Negative, Urine Occult Blood Negative, Urine Nitrite Negative, Urine Bilirubin Negative, Urine Urobilinogen Normal, Ur Leukocyte Esterase Negative, Urine RBC 0 SEEN, Urine WBC 0-5 SEEN, Ur Squamous Epith Cells 5-10 SEEN, Urine Bacteria 2+, Urine Mucus 0 SEEN, Urine Opiates Screen NEGATIVE, U Buprenorphine Qual NEGATIVE, Ur Oxycodone Screen NEGATIVE, Urine Methadone Screen NEGATIVE, Urine Fentanyl Screen NEGATIVE, Ur Barbiturates Screen NEGATIVE, Ur Phencyclidine Scrn NEGATIVE, Ur Amphetamines Screen NEGATIVE, U Benzodiazepines Scrn NEGATIVE, Urine Cocaine Screen NEGATIVE, U Cannabinoids Screen NEGATIVE 08/31/24 23:14: Ethyl Alcohol < 10.1 08/31/24 23:19: Troponin T Hi Sens 2 Hr 13, TSH 2.070 09/01/24 00:53: Troponin T Hi Sens 4Hr 13, Triglycerides Cancelled 09/01/24 00:53: Triglycerides Cancelled, Cholesterol Cancelled 09/01/24 00:53: Cholesterol Cancelled, LDL Cholesterol, Calc Cancelled 09/01/24 00:53: LDL Cholesterol, Calc Cancelled, VLDL Cholesterol Cancelled 09/01/24 00:53: VLDL Cholesterol Cancelled, HDL Cholesterol Cancelled 09/01/24 00:53: HDL Cholesterol Cancelled, Cholesterol/HDL Ratio Cancelled 09/01/24 00:53: Cholesterol/HDL Ratio Cancelled, Vitamin B12 Cancelled, Serum Folate 10.10 09/01/24 05:45: Triglycerides 177, Cholesterol 205 H, LDL Cholesterol, Calc 123,VLDL Cholesterol 35, HDL Cholesterol 47, Cholesterol/HDL Ratio 4.38, Vitamin [id number] 09/01/24 06:26: POC Glucose 144 H Imaging Radiology Impression Brain CT 08/31/24 20:46 IMPRESSION: No acute intracranial abnormality. Chronic microvascular ischemia and involutional changes. Reading Location: [facility] Brain MRI 08/31/24 23:41 IMPRESSION: 1. Punctate high RIGHT frontal acute infarct. No mass-effect or appreciable hemorrhagic conversion. 2. Additional description as above. Reading Location: [facility] Carotid Duplex 08/31/24 23:41 Interpretation Summary Severe (>70%) stenosis right extracranial internal carotid. Mild (<50%) stenosis left extracranial internal carotid. Patent and antegrade vertebrals bilaterally. Ordering Physician: Severiano Ibarra Performed By: Na Isaac RVT Charges/Coding Visit Charges Inpatient E&M: 32779 Init Hosp L2 09/02/24 0728 <Electronically signed by Sonali TOMLINSON> Cosigner Signature (if applicable): 09/02/24 1601 <Electronically signed by Ugo Rogel MD> CC: Dr. Kurt Lieberman MD~ Signed [facility] Work Phone: [phone]) 584-443504-10-2025 Consult note [facility] Medical Records Department [address] [place] [address] Consultation - Surgical 09/01/24 1427 MR#: [id number] Acct: [id number] Name: ALYSHAAbigailCHELSEA A Rep #:[id number] : 1940 83 From: Sonali TOMLINSON PCP: Dr. Kurt Lieberman MD Status:A DM IN Location: [place] [id number] Assessment & Plan Assessment/Plan (1) CVA (cerebral vascular accident): (2) Stenosis of right carotid artery: PLAN: Plan R hemispheric infarct on MRI. Reviewed CTA images, R ICA 75% stenosis by NASCET which correlates tocarotid duplex findings. Surgical intervention is recommended; given her stroke would plan to coordinate on an outpatient basis inthe next 2-4 weeks. Will need to ensure that her hypertension is better controlled prior to surgical intervention. This was discussed with patient and her family at bedside and all questions/concerns were addressed. Recommend DAPT with ASA 81mg daily and Plavix 75mg daily. Recommend high- intensity statin. Plan for outpatient follow-up in the office next week. HPI Consult Data Date of Consult: 09/02/24 HPI Narrative HPI Narrative: CHELSEA MOODY, is a 83 F who presented to the [facility] ER after an episode of darkening of her vision (both eyes), presyncope, and feeling off; in the ER she was found to have hypertensive emergency with systolic BP as high as 266 mmHg. After receiving a dose of IV hydralazine patient's daughter observed an episode of slurred speech, patient reports this lasted less than an hour. She was admitted for stroke workup and BP management. She had Brain MRI which revealed acute punctate R frontal lobe infarct. She had carotid duplex which revealed R ICA stenosis >70% with max PSV in the proximal ICA 529/160 cm/s. Head and Neck CTA was then ordered. I saw patient resting in bed with multiple family members at bedside. She and they agreed that she is back to her baseline; no persistent slurred speech, no facial droop, moving all extremities, no vision changes, no sensory deficits. She denies any prior history of CVA or TIA. She also denies any history of CAD/CHF/prior PCI, COPD/asthma, CKD, prior vascular surgical interventions. [facility] Medical History GERD (gastroesophageal reflux disease) Hypertension Diabetes Home Medications ?Medication ?Instructions ?Recorded ?Last Taken ?Type insulin glargine 100 unit/mL (3 8 unit subcut QHS 01/17 Unknown History mL) subcutaneous pen (Lantus Solostar U-100 Insulin) metoprolol succinate 50 mg 100 mg PO DAILY 08/31/24 Un known History tablet,extended release 24 hr Allergy/AdvReac Type Severity Reaction Status Date / Time No Known Allergies Allergy Verified 08/31/24 19:32 Social History Smoking Status: Never smoker Physical Exam Const alert, oriented x3 and no apparent distress General Appearance: cooperative and comfortable HEENT normocephalic, head/scalp atraumatic and external nose normal Eyes EOMs intact bilaterally General Eye: normal appearance of both eyes Neck General: normal visual inspection and trachea midline Resp normal respiratory effort, no retractions and no use of accessory muscles Effort and Inspection: able to speak in complete sentences; Negative for labored, grunting or stridor Cardio regular rate and regular rhythm Extremity normal to inspection and no clubbing, cyanosis or edema Skin no rashes or lesions noted Trauma: no lacerations or abrasions Neuro oriented x3, CN's II-XII intact bilaterally, moves all extremities, no focal motor deficits and no sensory deficits noted Speech: speech normal Psych mental status grossly normal Appearance: grossly normal Attitude: calm and engaged Activity / Motor Behavior: appropriate eye contact Speech: normal speech Mood & Affect: euthymic mood Judgement: judgement good Lab / Micro Data 08/31/24 21:00 08/31/24 21:00 Labs: Laboratory Results - last 24 hr 08/31/24 21:00: WBC 11.0, RBC 4.27, Hgb 13.1, Hct 38.5, MCV 90.2, MCH 30.7, MCHC34.0, RDW Std Deviation 47.4 H, RDW Coeff of Óscar 14.3, Plt Count 296, MPV 10.7, Immature Gran % (Auto) 0.500, Neut % (Auto) 61.5, Lymph % (Auto) 24.9, [place]nee % (Auto) 9.1, Eos % (Auto) 3.2, Baso % (Auto) 0.8, Absolute Neuts (auto) 6.8, Absolute Lymphs (auto) 2.74, Nucleated RBC % 0, Sodium 136, Potassium 4.2, Chloride 103, Carbon Dioxide 20.7 L, Anion Gap 12, BUN 19, Creatinine 0.99, Estim Creat Clear Calc 39.57 L, Est GFR (MDRD) Non-Af 57 L, BUN/Creatinine Ratio 18.8, Glucose 155 H, Hemoglobin A1c 7.8, Calcium 9.1,Total Bilirubin 0.26, AST 21, ALT 26, Alkaline Phosphatase 123 H, Troponin T High Sens 12, NT pro BNP II 245, Total Protein 6.6, Albumin 3.8, Globulin 2.7, Albumin/Globulin Ratio 1.4 08/31/24 22:36: POC Glucose 141 H 08/31/24 22:51: Urine Color Yellow, Urine Clarity Clear, Urine pH 6.0, Ur Specific Husser 1.010, Urine Protein Negative, Urine Glucose (UA) Normal, UrineKetones Negative, Urine Occult Blood Negative, Urine Nitrite Negative, Urine Bilirubin Negative, Urine Urobilinogen Normal, Ur Leukocyte Esterase Negative, Urine RBC 0 SEEN, Urine WBC 0-5 SEEN, Ur Squamous Epith Cells 5-10 SEEN, Urine Bacteria 2+, Urine Mucus 0 SEEN, Urine Opiates Screen NEGATIVE, U Buprenorphine Qual NEGATIVE, Ur Oxycodone Screen NEGATIVE, Urine Methadone Screen NEGATIVE, Urine Fentanyl Screen NEGATIVE, Ur Barbiturates Screen NEGATIVE, Ur Phencyclidine Scrn NEGATIVE, Ur Amphetamines Screen NEGATIVE, U Benzodiazepines ScrnNEGATIVE, Urine Cocaine Screen NEGATIVE, U Cannabinoids Screen NEGATIVE 08/31/24 23:14: Ethyl Alcohol < 10.1 08/31/24 23:19: Troponin T Hi Sens 2 Hr 13, TSH 2.070 09/01/24 00:53: Troponin T Hi Sens 4Hr 13, Triglycerides Cancelled 09/01/24 00:53: Triglycerides Cancelled, Cholesterol Cancelled 09/01/24 00:53: Cholesterol Cancelled, LDL Cholesterol, Calc Cancelled 09/01/24 00:53: LDL Cholesterol, Calc Cancelled, VLDL Cholesterol Cancelled 09/01/24 00:53: VLDL Cholesterol Cancelled, HDL Cholesterol Cancelled 09/01/24 00:53: HDL Cholesterol Cancelled, Cholesterol/HDL Ratio Cancelled 09/01/24 00:53: Cholesterol/HDL Ratio Cancelled, Vitamin B12 Cancelled, Serum Folate 10.10 09/01/24 05:45: Triglycerides 177, Cholesterol 205 H, LDL Cholesterol, Calc 123,VLDL Cholesterol 35, HDL Cholesterol 47, Cholesterol/HDL Ratio 4.38, Vitamin [id number] 09/01/24 06:26: POC Glucose 144 H Imaging Radiology Impression Brain CT 08/31/24 20:46 IMPRESSION: No acute intracranial abnormality. Chronic microvascular ischemia and involutional changes. Reading Location: [facility] Brain MRI 08/31/24 23:41 IMPRESSION: 1. Punctate high RIGHT frontal acute infarct. No mass-effect or appreciable hemorrhagic conversion. 2. Additional description as above. Reading Location: [facility] Carotid Duplex 08/31/24 23:41 Interpretation Summary Severe (>70%) stenosis right extracranial internal carotid. Mild (<50%) stenosis left extracranial internal carotid. Patent and antegrade vertebrals bilaterally. Ordering Physician: Severiano Ibarra Performed By: Na Isaac, T Charges/Coding Visit Charges Inpatient E&M: 47312 Init Hosp L2 09/02/24 0728 Cosigner Signature (if applicable): 09/02/24 1601 CC: Dr. Kurt Lieberman MD~ Signed [facility]04-09-2025 Progress note Author Dariana Wise [facility] Note Date/Time September 01, 2024 7:59 pm [facility] Medical Records Department [address] [place] [address] Progress Note - Hospitalist 09/01/24813 MR#: [id number] Acct: [id number] Name: CHELSEA MOODY Rep #:[id number] : 1940 83 From: Dariana Wise DO PCP: Dr. Kurt Lieberman, MD Status:A DM IN Location: [facility] [id number] Reason for Visit Reason for Visit: Dizziness and Highly Elevated Blood Pressure Subjective Subjective Mrs. Underwood is an 83-year-old white female who presents emergency department at [facility] on 08/31/2024 with a chief complaint of dizziness and elevated blood pressure. Symptoms were acute and started a few hours prior to presentation and were gradual onset. She also admitted to generalized diffuse weakness. Blood pressure at home was 270/51 so she decided come to emergency department for further evaluation. She stated on presentation her blood pressure has been poorly controlled for weeks with recent increased doses of hermetoprolol but she is not on any other medications besides her metoprolol. She had no focal deficits on presentation. Vital signs emergency department on presentation showed a temperature 97.8, heart rate was 68, respiratory rate was 16, blood pressure was 224/66 and pulse ox was 98% room air. Her CBC was unremarkable. Her chemistry panel was overtly unremarkable. Blood glucose was 155 and patient is a known diabetic. Hemoglobin A1c was 7.8. Liver functions were normal. Troponins were normal x 3. BNP was normal. Total cholesterol 205with an LDL of 123 and HDL 47. B12, TSH, and folate were all within normal limits. CT of the brain on admission was unremarkable for any acute findings but did show chronic microvascular changes. With her blood pressure being markedly elevated and symptoms concerning to admitted with hypertensive emergency from stroke workup was pursued is after blood pressure cuff emergency department she developed some neurological changes. MRI of the brain was done after admission and showed a punctate high right frontal lobe infarct with no mass effect or appreciated hemorrhagic transformation. CTA was not obtained on admission and a carotid duplex was ordered. Carotid duplex showed severe (greater than 70%) stenosis in the right extracranial internal carotid artery and mild less than 50% stenosis in the left extracranial internal carotid arterywith patent and antegrade flow in the vertebrals bilaterally. With the stroke finding on the right side and the carotid abnormalities on the right side vascular surgery was consulted and a CTA of the head neck was performed. Current recommendations include dual antiplatelet therapy with aspirin and Plavix and high intensity dose statin along with outpatient follow-up for possible intervention. This showed atherosclerotic calcification anterior and posterior intracranial circulation most prominent at the right ICA bifurcation with resultant luminal narrowing. Echocardiogram showed an EF of 70% with stageI diastolic dysfunction and mild aortic valve insufficiency. Patient states she feels so much better than she came in and she is at least 50%better if not more improved since presentation. No complaints at this time. Wediscussed CODE STATUS she desires not to be resuscitated in the event of arrest cardiac or pulmonary. Objective Data Objective Data Vital Signs: Vital Signs Temp Pulse Resp BP Pulse Ox O2 Del Method FiO2 98 F 66 16 159/43 H 98 Room Air 21 09/01/24 04:00 09/01/24 04:00 09/01/24 04:00 09/01/24 04:00 09/01/24 04:00 09/01/24 04:00 09/01/24 01:11 Oxygen Delivery Method Room Air Weight: 78.7 kg Body Mass Index (BMI) 38.9 Lab / Micro Data 08/31/24 21:00 08/31/24 21:00 Labs: Laboratory Results - last 24 hr 08/31/24 21:00: WBC 11.0, RBC 4.27, Hgb 13.1, Hct 38.5, MCV 90.2, MCH 30.7, MCHC34.0, RDW Std Deviation 47.4 H, RDW Coeff of Óscar 14.3, Plt Count 296, MPV 10.7, Immature Gran % (Auto) 0.500, Neut % (Auto) 61.5, Lymph % (Auto) 24.9, [place]nee % (Auto) 9.1, Eos % (Auto) 3.2, Baso % (Auto) 0.8, Absolute Neuts (auto) 6.8, Absolute Lymphs (auto) 2.74, Nucleated RBC % 0, Sodium 136, Potassium 4.2, Chloride 103, Carbon Dioxide 20.7 L, Anion Gap 12, BUN 19, Creatinine 0.99, Estim Creat Clear Calc 39.57 L, Est GFR (MDRD) Non-Af 57 L, BUN/Creatinine Ratio 18.8, Glucose 155 H, Hemoglobin A1c 7.8, Calcium 9.1, Total Bilirubin 0.26, AST 21, ALT 26, Alkaline Phosphatase 123 H, Troponin T High Sens 12, NT pro BNP II 245, Total Protein 6.6, Albumin 3.8, Globulin 2.7, Albumin/Globulin Ratio 1.4 08/31/24 22:36: POC Glucose 141 H 08/31/24 22:51: Urine Color Yellow, Urine Clarity Clear, Urine pH 6.0, Ur Specific Husser 1.010, Urine Protein Negative, Urine Glucose (UA) Normal, UrineKetones Negative, Urine Occult Blood Negative, Urine Nitrite Negative, Urine Bilirubin Negative, Urine Urobilinogen Normal, Ur Leukocyte Esterase Negative, Urine RBC 0 SEEN, Urine WBC 0-5 SEEN, Ur Squamous Epith Cells 5-10 SEEN, Urine Bacteria 2+, Urine Mucus 0 SEEN, Urine Opiates Screen NEGATIVE, U Buprenorphine Qual NEGATIVE, Ur Oxycodone Screen NEGATIVE, Urine Methadone Screen NEGATIVE, Urine Fentanyl Screen NEGATIVE, Ur Barbiturates Screen NEGATIVE, Ur Phencyclidine Scrn NEGATIVE, Ur Amphetamines Screen NEGATIVE, U Benzodiazepines Scrn NEGATIVE, Urine Cocaine Screen NEGATIVE, U Cannabinoids Screen NEGATIVE 08/31/24 23:14: Ethyl Alcohol < 10.1 08/31/24 23:19: Troponin T Hi Sens 2 Hr 13, TSH 2.070 09/01/24 00:53: Troponin T Hi Sens 4Hr 13, Triglycerides Cancelled 09/01/24 00:53: Triglycerides Cancelled, Cholesterol Cancelled 09/01/24 00:53: Cholesterol Cancelled, LDL Cholesterol, Calc Cancelled 09/01/24 00:53: LDL Cholesterol, Calc Cancelled, VLDL Cholesterol Cancelled 09/01/24 00:53: VLDL Cholesterol Cancelled, HDL Cholesterol Cancelled 09/01/24 00:53: HDL Cholesterol Cancelled, Cholesterol/HDL Ratio Cancelled 09/01/24 00:53: Cholesterol/HDL Ratio Cancelled, Vitamin B12 Cancelled, Serum Folate 10.10 09/01/24 05:45: Triglycerides 177, Cholesterol 205 H, LDL Cholesterol, Calc 123,VLDL Cholesterol 35, HDL Cholesterol 47, Cholesterol/HDL Ratio 4.38, Vitamin [id number] 09/01/24 06:26: POC Glucose 144 H Radiography Diagnostic Testing: Radiology Impression Brain CT 08/31/24 20:46 IMPRESSION: No acute intracranial abnormality. Chronic microvascular ischemia and involutional changes. Reading Location: [facility] Physical Exam Const alert, oriented x3, no apparent distress and well nourished; Negative for average body habitus Constitutional Narrative: Very pleasant, obese, white female, sitting up in a chair at the bedside, familyis at the bedside, patient appears comfortable, nontoxic HEENT head/scalp atraumatic and moist oral mucous membranes HEENT Narrative: Mallampati 3, no thrush Head and Scalp: normocephalic Eyes conjunctivae normal Eyes Narrative: No scleral icterus Neck supple Neck Narrative: Trachea midline Resp normal respiratory effort, no retractions, no use of accessory muscles and clearto auscultation bilaterally Auscultation: Negative for rales, rhonchi or wheezes Cardio regular rate, regular rhythm, S1 normal heart sound, S2 normal heart sound, no murmurs, no rub, no gallops and no clicks GI normal to inspection, nondistended, normoactive bowel sounds, soft to palpation and non-tender Extremity Extremity Narrative: Trace bilateral lower extremity edema, no cyanosis or clubbing, 2+ pedal and radial pulses Skin no jaundice, no petechiae and no mottling Neuro oriented x3, No no focal motor deficits and no sensory deficits noted Neuro Narrative: Mild left lower extremity weakness noted with a little bit of drift, upper extremities within normal limits, mild limb ataxia on the left Coordination / Balance: [id number] test normal; Negative for [id number] test normal Speech: speech normal Psych affect normal Psych Narrative: Very pleasant, interacts appropriately Assessment & Plan Assessment/Plan (1) CVA (cerebral vascular accident): PLAN: Plan Acute right frontal lobe stroke secondary to hypertensive emergency -Still allow for some permissive hypertension with goal blood pressure between 180 and 200. -Will start Coreg 12.5 mg daily as this should better regulate blood pressure than metoprolol -Add amlodipine 5 mg daily and continue to reassess -Continue aspirin 81 mg daily -Start Plavix 75 mg daily -Continue atorvastatin 40 mg daily -Hemoglobin A1c was 7.8 so we will increase basal insulin to 10 units and may need to consider oral agents with metformin at discharge -Total cholesterol is 205 with an LDL of 123 and HDL of 47 -PT/OT following -Consult vascular surgery due to significant right-sided carotid stenosis -Neurology is following and agrees with current plan Hypertensive emergency -Start Coreg 12.5 mg daily -Start amlodipine 5 mg daily -Blood pressure currently should be between 180 and 200 -PRNs available Hyperlipidemia -LDL is above goal of 70 -Current LDL is 123 -Statin initiated per stroke protocol Bilateral carotid artery stenosis right greater than left -Given right sided stroke and critical stenosis on the right vascular surgery consulted -Dual antiplatelet therapy -Statin -Outpatient referral for probable intervention in the future DM-2 -Hemoglobin A1c is 7.8 -Increase basal insulin to 10 units -Will likely start metformin 500 mg p.o. twice daily at discharge Obesity -BMI is 38.9 -Recommend weight loss Complicates treatment, prognosis, outcomes DVT prophylaxis -Continue subcu heparin twice daily CODE STATUS -After discussion with patient she would like to be DNR CCA with no intubation- order placed Charges/Coding Visit Charges Inpatient E&M: 99988 Subs Hosp L3 09/01/241958 <Electronically signed by Dariana Wise DO> Cosigner Signature (if applicable): CC: ~ Signed [facility] Work Phone: 1(440) 450-119604-09-2025 Progress note [facility] Medical Records Department [address] [place] [address] Progress Note - Hospitalist 09/01/24813 MR#: [id number] Acct: [id number] Name: CHELSEA MOODY Rep #:[id number] : 1940 83 From: Dariana Wise DO PCP: Dr. Kurt Lieberman MD Status:A DM IN Location: [place] [address] Reason for Visit Reason for Visit: Dizziness and Highly Elevated Blood Pressure Subjective Subjective Mrs. Underwood is an 83-year-old white female who presents emergency department at [facility] on 08/31/2024 with a chief complaint of dizziness and elevated blood pressure. Symptoms were acute and started a few hours prior to presentation and were gradual onset. She also admitted to generalized diffuse weakness. Blood pressure at home was 270/51 so she decided come to emergency departmentfor further evaluation. She stated on presentation her blood pressure has been poorly controlled for weeks with recent increased doses of hermetoprolol but she is not on any other medications besidesher metoprolol. She had no focal deficits on presentation. Vital signs emergency department on prese ntation showed a temperature 97.8, heart rate was 68, respiratory rate was 16, blood pressure was 224/66 and pulse ox was 98% room air. Her CBC was unremarkable. Her chemistry panel was overtly unremarkable. Blood glucose was 155 and patient is a known diabetic. Hemoglobin A1c was 7.8. Liver functions were normal. Troponins were normal x 3. BNP was normal. Total cholesterol 205with an LDL of 123 and HDL 47. B12, TSH, and folate were all within normal limits. CT of the brain on admission was unremarkable for any acute findings but did show chronic microvascular changes. With her blood pressurebeing markedly elevated and symptoms concerning to admitted with hypertensive emergency from strokeworkup was pursued is after blood pressure cuff emergency department she developed some neurological changes. MRI of the brain was done after admission and showed a punctate high right frontal lobe infarct with no mass effect or appreciated hemorrhagic transformation. CTA was not obtained on admission and a carotid duplex was ordered. Carotid duplex showed severe (greater than 70%) stenosis in the right extracranial internal carotid artery and mild less than 50% stenosis in the left extracranial internal carotid arterywith patent and antegrade flow in the vertebrals bilaterally. With the stroke finding on the right side and the carotid abnormalities on the right side vascular surgery was consulted and a CTA of the head neck was performed. Current recommendations include dual antiplatelet therapy with aspirin and Plavix and high intensity dose statin along with outpatient follow-up for possible intervention. This showed atherosclerotic calcification anterior and posterior intracranial c irculation most prominent at the right ICA bifurcation with resultant luminal narrowing. Echocardiogram showed an EF of 70% with stageI diastolic dysfunction and mild aortic valve insufficiency. Patient states she feels so much better than she came in and she is at least 50%better if not more improved since presentation. No complaints at this time. Wediscussed CODE STATUS she desires not to be resuscitated in the event of arrest cardiac or pulmonary. Objective Data Objective Data Vital Signs: Vital Signs Temp Pulse Resp BP Pulse Ox O2 Del Method FiO2 98 F 66 16 159/43 H 98 Room Air 21 09/01/24 04:00 09/01/24 04:00 09/01/24 04:00 09/01/24 04:00 09/01/24 04:00 09/01/24 04:00 09/01/24 01:11 Oxygen Delivery Method Room Air Weight: 78.7 kg Body Mass Index (BMI) 38.9 Lab / Micro Data 08/31/24 21:00 08/31/24 21:00 Labs: Laboratory Results - last 24 hr 08/31/24 21:00: WBC 11.0, RBC 4.27, Hgb 13.1, Hct 38.5, MCV 90.2, MCH 30.7, MCHC34.0, RDW Std Deviation 47.4 H, RDW Coeff of Óscar 14.3, Plt Count 296, MPV 10.7, Immature Gran % (Auto) 0.500, Neut % (Auto) 61.5, Lymph % (Auto) 24.9, [place] % (Auto) 9.1, Eos % (Auto) 3.2, Baso % (Auto) 0.8, Absolute Neuts (auto) 6.8, Absolute Lymphs (auto) 2.74, Nucleated RBC % 0, Sodium 136, Potassium 4.2, Chloride 103, Carbon Dioxide 20.7 L, Anion Gap 12, BUN 19, Creatinine 0.99, Estim Creat Clear Calc 39.57 L, Est GFR (MDRD) Non-Af 57 L, BUN/Creatinine Ratio 18.8, Glucose 155 H, Hemoglobin A1c 7.8, Calcium 9.1,Total Bilirubin 0.26, AST 21, ALT 26, Alkaline Phosphatase 123 H, Troponin T High Sens 12, NT pro BNP II 245, Total Protein 6.6, Albumin 3.8, Globulin 2.7, Albumin/Globulin Ratio 1.4 08/31/24 22:36: POC Glucose 141 H 08/31/24 22:51: Urine Color Yellow, Urine Clarity Clear, Urine pH 6.0, Ur Specific Husser 1.010, Urine Protein Negative, Urine Glucose (UA) Normal, UrineKetones Negative, Urine Occult Blood Negative, Urine Nitrite Negative, Urine Bilirubin Negative, Urine Urobilinogen Normal, Ur Leukocyte Esterase Negative, Urine RBC 0 SEEN, Urine WBC 0-5 SEEN, Ur Squamous Epith Cells 5-10 SEEN, Urine Bacteria 2+, Urine Mucus 0 SEEN, Urine Opiates Screen NEGATIVE, U Buprenorphine Qual NEGATIVE, Ur Oxycodone Screen NEGATIVE, Urine Methadone Screen NEGATIVE, Urine Fentanyl Screen NEGATIVE, Ur Barbiturates Screen NEGATIVE, Ur Phencyclidine Scrn NEGATIVE, Ur Amphetamines Screen NEGATIVE, U Benzodiazepines ScrnNEGATIVE, Urine Cocaine Screen NEGATIVE, U Cannabinoids Screen NEGATIVE 08/31/24 23:14: Ethyl Alcohol < 10.1 08/31/24 23:19: Troponin T Hi Sens 2 Hr 13, TSH 2.070 09/01/24 00:53: Troponin T Hi Sens 4Hr 13, Triglycerides Cancelled 09/01/24 00:53: Triglycerides Cancelled, Cholesterol Cancelled 09/01/24 00:53: Cholesterol Cancelled, LDL Cholesterol, Calc Cancelled 09/01/24 00:53: LDL Cholesterol, Calc Cancelled, VLDL Cholesterol Cancelled 09/01/24 00:53: VLDL Cholesterol Cancelled, HDL Cholesterol Cancelled 09/01/24 00:53: HDL Cholesterol Cancelled, Cholesterol/HDL Ratio Cancelled 09/01/24 00:53: Cholesterol/HDL Ratio Cancelled, Vitamin B12 Cancelled, Serum Folate 10.10 09/01/24 05:45: Triglycerides 177, Cholesterol 205 H, LDL Cholesterol, Calc 123,VLDL Cholesterol 35, HDL Cholesterol 47, Cholesterol/HDL Ratio 4.38, Vitamin [id number] 09/01/24 06:26: POC Glucose 144 H Radiography Diagnostic Testing: Radiology Impression Brain CT 08/31/24 20:46 IMPRESSION: No acute intracranial abnormality. Chronic microvascular ischemia and involutional changes. Reading Location: [facility] Physical Exam Const alert, oriented x3, no apparent distress and well nourished; Negative for average body habitus Constitutional Narrative: Very pleasant, obese, white female, sitting up in a chair at the bedside, familyis at the bedside, patient appears comfortable, nontoxic HEENT head/scalp atraumatic and moist oral mucous membranes HEENT Narrative: Mallampati 3, no thrush Head and Scalp: normocephalic Eyes conjunctivae normal Eyes Narrative: No scleral icterus Neck supple Neck Narrative: Trachea midline Resp normal respiratory effort, no retractions, no use of accessory muscles and clearto auscultation bilaterally Auscultation: Negative for rales, rhonchi or wheezes Cardio regular rate, regular rhythm, S1 normal heart sound, S2 normal heart sound, no murmurs, no rub, no gallops and no clicks GI normal to inspection, nondistended, normoactive bowel sounds, soft to palpation and non-tender Extremity Extremity Narrative: Trace bilateral lower extremity edema, no cyanosis or clubbing, 2+ pedal and radial pulses Skin no jaundice, no petechiae and no mottling Neuro oriented x3, No no focal motor deficits and no sensory deficits noted Neuro Narrative: Mild left lower extremity weakness noted with a little bit of drift, upper extremities within normal limits, mild limb ataxia on the left Coordination / Balance: [id number] test normal; Negative for fike-ys-role test normal Speech: speech normal Psych affect normal Psych Narrative: Very pleasant, interacts appropriately Assessment & Plan Assessment/Plan (1) CVA (cerebral vascular accident): PLAN: Plan Acute right frontal lobe stroke secondary to hypertensive emergency -Still allow for some permissive hypertension with goal blood pressure between 180 and 200. -Will start Coreg 12.5 mg daily as this should better regulate blood pressure than metoprolol -Add amlodipine 5 mg daily and continue to reassess -Continue aspirin 81 mg daily -Start Plavix 75 mg daily -Continue atorvastatin 40 mg daily -Hemoglobin A1c was 7.8 so we will increase basal insulin to 10 units and may need to consider oralagents with metformin at discharge -Total cholesterol is 205 with an LDL of 123 and HDL of 47 -PT/OT following -Consult vascular surgery due to significant right-sided carotid stenosis -Neurology is following and agrees with current plan Hypertensive emergency -Start Coreg 12.5 mg daily -Start amlodipine 5 mg daily -Blood pressure currently should be between 180 and 200 -PRNs available Hyperlipidemia -LDL is above goal of 70 -Current LDL is 123 -Statin initiated per stroke protocol Bilateral carotid artery stenosis right greater than left -Given right sided stroke and critical stenosis on the right vascular surgery consulted -Dual antiplatelet therapy -Statin -Outpatient referral for probable intervention in the future DM-2 -Hemoglobin A1c is 7.8 -Increase basal insulin to 10 units -Will likely start metformin 500 mg p.o. twice daily at discharge Obesity -BMI is 38.9 -Recommend weight loss Complicates treatment, prognosis, outcomes DVT prophylaxis -Continue subcu heparin twice daily CODE STATUS -After discussion with patient she would like to be DNR CCA with no intubation- order placed Charges/Coding Visit Charges Inpatient E&M: 56739 [facility] 09/01/241958 Cosigner Signature (if applicable): CC: ~ Signed [facility]04-09-2025 Consult note Author Monik Barker [facility] Note Date/Time September 01, 2024 4:21 pm [facility] Medical Records Department [address] [place] [address] Consultation - Neurology 09/01/24 1432 MR#: [id number] Acct: [id number] Name: CHELSEA MOODY Rep #:[id number] : 1940 83 From: Monik Barker MD PCP: Dr. Kurt Lieberman MD Status:A DM IN [id number] Assessment and Plan: Neuro Assessment/Plan CHELSEA MOODY is a 83 F with a past medical history of HTN and DM2, being evaluated by Teleneurology for for stroke. 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 Agree with vascular surgery evaluation for CEA or HIRAL. Diagnosis: stroke related LG - Anti-platelet medication: Aspirin 81 mg daily - SBP goal 140-200 - Occupational/ Physical therapy consults - NPO until swallow evaluation. IVF until able to take po - DVT prophylaxis with SCDs and heparin SQ - Vascular risk factor modification. The following are the recommended guidelines: LDL Goal < 70 - cont lipitor 40mg Smoking Cessation Diabetes Management long term acute care registered nurse blood pressure control should achieve <130/80 mmHg. BP managementshould aim to achieve alf contorl in a reasonable amount of time, taking into consideration the individual patient's requirements and characteristics. Weight Management: Goal for BMI is 18.5 -24.9 kg/m2 Alcohol: No more than 2 drinks/day for men or 1 drink/day for non- women - Promote lifestyle modification: weight control, physical activity, moderation of alcohol intake, moderate sodium intake. Followup with PCP in 1-2 weeks, and in Neurology clinic in 6-12 weeks I personally attended this patient and spent a total time of 45minutes evaluating this patient including clinical assessment, review of chart, medical history imaging, and determining appropriate treatment and workup. HPI Consult Data Date of Consult: 09/01/24 HPI Narrative HPI Narrative: CHELSEA MOODY, is a 83 F with a past medical history of essential hypertension; poorly-controlled on metoprolol, obesity; BMI of 39.5 this admission, DM-2; of unknown control on insulin glargine 8U at bedtime, GERD; currently not on treatment and OA who presents to [facility] ER complaining of dizziness and highly elevated blood pressure. Ms. Moody reports her acute symptoms began a few hours prior to admission with a gradual-onset of progressively worsening dizziness and lightheadedness. She also admits to diffuse generalized weakness with patient recording her blood pressure up to 270/51 mmHg so she decided to come in for further evaluation and treatment. Shestates that her blood pressure has been poorly controlled for weeks with recent increase in her dose of metoprolol without subsequent improvement. She denies associated headache, focal neurologic deficits, truncal ataxia, slurred speech, chest pain, palpitations, rash, other recent illness, near-syncope, syncope or fall. In the ER she was diagnosed with Hypertensive Emergency and she was subsequently treated with 1 dose of 20 mg of IV hydralazine with subsequent slurred speech and lethargy after her blood pressure dropped from 168 mmHg systolic to 138/50 mmHg suspicious for possible 'watershed infarct' due to rapiddecrease in blood pressure. She was then admitted to the PCU under observation status for ongoing care for a stay that is expected to be less than 2 midnights. Pt was getting supper when symptoms started - patient felt dizzy (lightheadedness) and felt the lights closing in on her. Had no symptoms on the L side at the time. She was not acting like herself and was crying. Pt's daughter states there was no clear facial droop and slurred speech. Pt now feelsback to normal. BP at home were in the 200s. BP was noted as high at a procedure. Nonsmoker, never had stroke before. Currently no dizziness or lightheadedness. [facility] Medical History GERD (gastroesophageal reflux disease) Hypertension Diabetes Home Medications ?Medication ?Instructions ?Recorded ?Last Taken ?Type insulin glargine 100 unit/mL (3 8 unit subcut QHS 01/17 Unknown History mL) subcutaneous pen (Lantus Solostar U-100 Insulin) metoprolol succinate 50 mg 100 mg PO DAILY 08/31/24 Un known History tablet,extended release 24 hr Allergy/AdvReac Type Severity Reaction Status Date / Time No Known Allergies Allergy Verified 08/31/24 19:32 Social History Smoking Status: Never smoker Vital Signs Vital Signs Vital Signs: 08/31/24 19:27 08/31/24 20:55 08/31/24 21:27 Temperature 97.8 F Temperature Source Oral Pulse Rate 66 65 Respiratory Rate 16 Respiratory Effort Respiratory Depth Respiratory Pattern Blood Pressure 224/66 H 202/70 H Blood Pressure Mean 118 114 Blood Pressure Source Blood Pressure Position Blood Pressure Location Pulse Ox 98 97 Oxygen Delivery Method Room Air Room Air Fraction of Inspired Oxygen (FIO2) 08/31/24 22:11 08/31/24 22:20 08/31/24 22:31 Temperature Temperature Source Pulse Rate 59 L 68 80 Respiratory Rate 18 18 15 Respiratory Effort Respiratory Depth Respiratory Pattern Blood Pressure 270/51 H 266/71 H 168/151 H Blood Pressure Mean 124 136 156 Blood Pressure Source Blood Pressure Position Blood Pressure Location Pulse Ox 97 99 97 Oxygen Delivery Method Room Air Fraction of Inspired Oxygen (FIO2) 08/31/24 22:33 08/31/24 22:50 08/31/24 23:04 Temperature 97.8 F Temperature Source Pulse Rate 80 79 Respiratory Rate 15 23 H Respiratory Effort Respiratory Depth Respiratory Pattern Blood Pressure 187/78 H 187/78 H 138/50 H Blood Pressure Mean 114 114 79 Blood Pressure Source Blood Pressure Position Blood Pressure Location Pulse Ox 97 Oxygen Delivery Method Fraction of Inspired Oxygen (FIO2) 09/01/24 00:00 09/01/24 00:17 09/01/24 01:03 Temperature 97 F L 97 F L Temperature Source Temporal Temporal Pulse Rate 79 78 75 Respiratory Rate 16 16 Respiratory Effort Respiratory Depth Respiratory Pattern Blood Pressure 194/50 H 176/45 H 167/43 H Blood Pressure Mean 98 88 84 Blood Pressure Source Monitor Monitor Monitor Blood Pressure Position Semi-Fowlers Semi-Fowlers Semi-Fowlers Blood Pressure Location Left Arm Left Arm Right Arm Pulse Ox 99 99 99 Oxygen Delivery Method Room Air Room Air Room Air Fraction of Inspired Oxygen (FIO2) 09/01/24 01:11 09/01/24 01:30 09/01/24 04:00 Temperature 98 F Temperature Source Oral Pulse Rate 75 66 Respiratory Rate 16 Respiratory Effort Normal Non-Labored Respiratory Depth Normal Respiratory Pattern Normal Blood Pressure 159/43 H Blood Pressure Mean 81 Blood Pressure Source Monitor Blood Pressure Position Semi-Fowlers Blood Pressure Location Right Arm Pulse Ox 96 98 Oxygen Delivery Method Room Air Room Air Fraction of Inspired Oxygen (FIO2) 09/01/24 08:00 09/01/24 08:00 09/01/24 08:00 Temperature 98.0 F 97.9 F Temperature Source Oral Temporal Pulse Rate 64 115 H Respiratory Rate 16 18 Respiratory Effort Normal Non-Labored Respiratory Depth Respiratory Pattern Blood Pressure 210/56 H 145/87 H Blood Pressure Mean 107 106 Blood Pressure Source Monitor Monitor Blood Pressure Position Semi-Fowlers Semi-Fowlers Blood Pressure Location Right Arm Right Arm Pulse Ox 97 96 Oxygen Delivery Method Room Air Room Air Room Air Fraction of Inspired Oxygen (FIO2) 09/01/24 12:00 09/01/24 14:00 Temperature 98.0 F Temperature Source Oral Pulse Rate 72 Respiratory Rate 16 Respiratory Effort Normal Non-Labored Respiratory Depth Respiratory Pattern Blood Pressure 202/58 H Blood Pressure Mean 106 Blood Pressure Source Monitor Blood Pressure Position Sitting Blood Pressure Location Left Arm Pulse Ox 98 Oxygen Delivery Method Room Air Fraction of Inspired Oxygen (FIO2) Weight Weight: 78.7 kg Body Mass Index (BMI) 38.9 EEG Results Procedure Details EEG Procedure Details: CHELSEA MOODY is a 83 year old F with a past medical history of , who presents for evaluation of Electroencephalogram on DATE at TIME NIHSS NIHSS Nursing Documentation NIHSS Nursing Documentation: NIHSS: Ischemic Stroke/TIA Start: 09/01/24 00:06 Text: For PCU Patients: NIH and Neuro Check every 4 Status: Active hours, PRN and with change in RN caregiver. Freq: [id number] Protocol: Activity Type Activity Date Activity User E-sign Co-sign Detail Recorded Client Recorded Date Recorded By Document 09/01/24 12:00 ML [id number] 09/01/24 12:25 ML 09/01/24 12:00 NIH Stroke Scale [NIHSS] A score of 0 is normal or asymptomatic . Total possible score is 42. Inpatient: RN or Physician to activate a stroke alert for onset of new stroke symptoms or with NIHSS increase >/= 3 points. Following change in neurological status, NIHSS will be performed per physician order or more frequently PRN. -1a. Level of Consciousness Alert; keenly responsive -1b. LOC Questions Answers BOTH questions correctly. -1c. LOC Commands Performs both tasks correctly . -2. Best Gaze Normal -3. Visual No visual loss -4. Facial Palsy Normal symmetrical movements -5a. Left Arm No drift; arm holds 90 (or 45 ) degrees for full 10 seconds -5b. Right Arm No drift; arm holds 90 (or 45 ) degrees for full 10 seconds -6a. Left Leg No drift; leg holds 30-degree position for full 5 seconds -6b. Right Leg No drift; leg holds 30-degree position for full 5 seconds -7. Limb Ataxia Absent -8. Sensory Normal; no sensory loss -9. Best Language No aphasia; normal -10. Dysarthria Normal -11. Extinction and Inattention No abnormality -Total 0 Query Text:A score of 0 is normal or asymptomatic. Total possible score is 42 . ED: Notify Physician for NIHSS increase by > / = 3 points. Inpatient: RN or Physician to activate a stroke alert for NIHSS increase of > / = 3 points. Coma Scale [Assess] -Eye Opening Spontaneous -Motor Obeys Commands -Verbal Oriented [Total] -Coma Scale Total 15 NIHSS 1a. Level of Consciousness: Alert; keenly responsive 1b. LOC Questions: Answers BOTH questions correctly. 1c. LOC Commands: Performs both tasks correctly. 2. Best Gaze: Normal 3. Visual: No visual loss 4. Facial Palsy: Normal symmetrical movements 5a. Left Arm: No drift; arm holds 90 (or 45) degrees for full 10 seconds 5b. Right Arm: No drift; arm holds 90 (or 45) degrees for full 10 seconds 6a. Left Leg: Drift; leg falls by the end of 5-seconds, but does not hit bed 6b. Right Leg: No drift; leg holds 30-degree position for full 5 seconds 7. Limb Ataxia: Present in 1 limb 8. Sensory: Normal; no sensory loss 9. Best Language: No aphasia; normal 10. Dysarthria: Normal 11. Extinction and Inattention: No abnormality Total: 2 Physical Exam Narrative -? General: Laying comfortably in bed; in no acute distress. -? HENT: Normal oropharynx and mucosa. Normal external appearance of ears and nose. Exophthalmos. -? Neck: Supple, no pain or tenderness -? CV:? No peripheral edema. -? Pulmonary:? Normal respiratory effort. -? Ext: No cyanosis, edema, or deformity -? Skin: No rash. Normal palpation of skin.? -? Musculoskeletal: full range of motion; no joint tenderness. Normal digits and nails by inspection. No clubbing. -? NEURO: -? Mental Status: The patient was alert and oriented to time, place, and person. Normal recent/remote memory, concentration, and general fund of knowledge. -? Language: speech is clear? Naming, repetition, fluency, and comprehension intact. -? Cranial Nerves: EOMI, visual ozuna full, no facial asymmetry, facial sensation intact, hearing intact, tongue midline, no evidence of atrophy or fibrillations. -? Motor: normal bulk, tone, and strength throughout. No pronator drift or satelliting. Upper and lower extremities equal bilaterally. -?Detailed strength exam as performed by the nurse/MYNOR and witnessed by the physician: l R L SA 5 5 EE EF WE WF Package Dyer 5 5 HF KE KF DF PF -? Tone: is normal and bulk is normal -? Sensation- Intact to light touch bilaterally -? Coordination: FTN w ataxia on the LUE, -? Gait- deferred Lab / Micro Data 08/31/24 21:00 08/31/24 21:00 Labs: Laboratory Results - last 24 hr 08/31/24 21:00: WBC 11.0, RBC 4.27, Hgb 13.1, Hct 38.5, MCV 90.2, MCH 30.7, MCHC 34.0, RDW Std Deviation 47.4 H, RDW Coeff of Óscar 14.3, Plt Count 296, MPV 10.7, Immature Gran % (Auto) 0.500, Neut % (Auto) 61.5, Lymph % (Auto) 24.9, [place] % (Auto) 9.1, Eos % (Auto) 3.2, Baso % (Auto) 0.8, Absolute Neuts (auto) 6.8, Absolute Lymphs (auto) 2.74, Nucleated RBC % 0, Sodium 136, Potassium 4.2, Chloride 103, Carbon Dioxide 20.7 L, Anion Gap 12, BUN 19, Creatinine 0.99, Estim Creat Clear Calc 39.57 L, Est GFR (MDRD) Non-Af 57 L, BUN/Creatinine Ratio 18.8, Glucose 155 H, Hemoglobin A1c 7.8, Calcium 9.1, Total Bilirubin 0.26, AST 21, ALT 26, Alkaline Phosphatase 123 H, Troponin T High Sens 12, NT pro BNP II 245, Total Protein 6.6, Albumin 3.8, Globulin 2.7, Albumin/Globulin Ratio 1.4 08/31/24 22:36: POC Glucose 141 H 08/31/24 22:51: Urine Color Yellow, Urine Clarity Clear, Urine pH 6.0, Ur Specific Husser 1.010, Urine Protein Negative, Urine Glucose (UA) Normal, Urine Ketones Negative, Urine Occult Blood Negative, Urine Nitrite Negative, Urine Bilirubin Negative, Urine Urobilinogen Normal, Ur Leukocyte Esterase Negative, Urine RBC 0 SEEN, Urine WBC 0-5 SEEN, Ur Squamous Epith Cells 5-10 SEEN, Urine Bacteria 2+, Urine Mucus 0 SEEN, Urine Opiates Screen NEGATIVE, U Buprenorphine Qual NEGATIVE, Ur Oxycodone Screen NEGATIVE, Urine Methadone Screen NEGATIVE, Urine Fentanyl Screen NEGATIVE, Ur Barbiturates Screen NEGATIVE, Ur Phencyclidine Scrn NEGATIVE, Ur Amphetamines Screen NEGATIVE, U Benzodiazepines Scrn NEGATIVE, Urine Cocaine Screen NEGATIVE, U Cannabinoids Screen NEGATIVE 08/31/24 23:14: Ethyl Alcohol < 10.1 08/31/24 23:19: Troponin T Hi Sens 2 Hr 13, TSH 2.070 09/01/24 00:53: Troponin T Hi Sens 4Hr 13, Triglycerides Cancelled 09/01/24 00:53: Triglycerides Cancelled, Cholesterol Cancelled 09/01/24 00:53: Cholesterol Cancelled, LDL Cholesterol, Calc Cancelled 09/01/24 00:53: LDL Cholesterol, Calc Cancelled, VLDL Cholesterol Cancelled 09/01/24 00:53: VLDL Cholesterol Cancelled, HDL Cholesterol Cancelled 09/01/24 00:53: HDL Cholesterol Cancelled, Cholesterol/HDL Ratio Cancelled 09/01/24 00:53: Cholesterol/HDL Ratio Cancelled, Vitamin B12 Cancelled, Serum Folate 10.10 09/01/24 05:45: Triglycerides 177, Cholesterol 205 H, LDL Cholesterol, Calc 123, VLDL Cholesterol 35, HDL Cholesterol 47, Cholesterol/HDL Ratio 4.38, Vitamin B12 421 09/01/24 06:26: POC Glucose 144 H Imaging Radiology Impression Brain CT 08/31/24 20:46 IMPRESSION: No acute intracranial abnormality. Chronic microvascular ischemia and involutional changes. Reading Location: [facility] Brain MRI 08/31/24 23:41 IMPRESSION: 1. Punctate high RIGHT frontal acute infarct. No mass-effect or appreciable hemorrhagic conversion. 2. Additional description as above. Reading Location: [id number] Carotid Duplex 08/31/24 23:41 Interpretation Summary Severe (>70%) stenosis right extracranial internal carotid. Mild (<50%) stenosis left extracranial internal carotid. Patent and antegrade vertebrals bilaterally. Ordering Physician: Severiano Ibarra Performed By: Na Isaac RVT Active Medications Active Medications Active Medications: Current Medications Generic Name Dose Route Start Last Admin Trade Name Freq PRN Reason Stop Dose Admin Acetaminophen 650 mg 09/01/24 00:06 Acetaminophen 325 Mg Tablet PO Q6H PRN PRN Pain 1-10 or Fever Aspirin 81 mg 09/01/24 08:00 09/01/24 08:58 Aspirin 81 Mg Tab.Chew PO 81 mg BREAKFAST PATIENCE Administration Atorvastatin Calcium 40 mg 08/31/24 23:45 09/01/24 00:54 Atorvastatin Calcium 40 Mg Tablet PO 40 mg QHS PATIENCE Administration Heparin Sodium (Porcine) 5,000 unit 09/01/24 10:00 09/01/24 08:58 Heparin Injection (Vial) 5,000 Unit/Ml Vial SC 5,000 unit BID PATIENCE Administration Sodium Chloride 100 mls @ 15 mls/hr 09/01/24 01:45 IV .Q6H40M PRN Saline Flush Sodium Chloride 100 mls @ 15 mls/hr 09/01/24 01:45 IV .Q6H40M PRN Additional IVPB Infusion Insulin Glargine 5 unit 09/01/24 22:00 Insulin Glargine-Yfgn 100 Unit/Ml Pen SC QHS PATIENCE Meclizine HCl 12.5 mg 09/01/24 00:06 Meclizine 12.5 Mg Tablet PO TID PRN PRN DIZZINESS Ondansetron HCl 4 mg 09/01/24 00:06 Ondansetron 4 Mg/2 Ml Vial IV Q4H PRN PRN NAUSEA/VOMITING Sodium Chloride 10 - 40 ml 09/01/24 01:45 0.9% Saline Lock 10 Ml Syringe IV UD PRN SALINE FLUSH 09/01/24 1621 <Electronically signed by Monik Barker MD> Cosigner Signature (if applicable): CC: Dr. Kurt Lieberman MD~ Signed [facility] Work Phone: 1(757) 445-366504-09-2025 Evaluation note* Diagnosis Onset Date Resolution Status Admit Date CVA (cerebral vascular accident) acu te September 01, 2024 3:48pm Diabetes mellitus, type 2 acute September 01, 2024 3:48pm Dizziness acute September 01 3:48pm Generalized weakness acute Apri l 2024 3:48pm Hypertensive emergency acute Ap ril 2024 3:48pm Obesity (BMI 30-39.9) acute Apr il 2024 3:48pm Poorly-controlled hypertension acute September 01, 2024 3:48pm Slurred speech acute September 01, 2024 3:48pm Stenosis of right carotid artery acu te September 01, 2024 3:48pm TIA on medication deleted September 012024 3:48pm [facility] Work Phone: 1(715) 359-953504-09-2025 Evaluation note* Diagnosis Onset Date Resolution Status Admit Date Poorly-controlled hypertension acute September 01, 2024 3:48pm Stenosis of right carotid artery acute September 01, 2024 3:48pm Dizziness resolved September 01 3:48pm Generalized weakness resolved Apri l 2024 3:48pm Hypertensive emergency resolved Ap ril 2024 3:48pm Slurred speech resolved September 01, 2024 3:48pm CVA (cerebral vascular accident) inactive September 01, 2024 3:48pm Diabetes mellitus, type 2 inactive September 01, 2024 3:48pm Obesity (BMI 30-39.9) inactive Apr il 2024 3:48pm TIA on medication deleted September 012024 3:48pm Stenosis of right carotid artery acute September 17, 2024 10:53am [facility] Work Phone: 1(363) 850-812604-09-2025 Evaluation note* Diagnosis Onset Date Resolution Status Admit Date Poorly-controlled hypertension acute September 01, 2024 3:48pm Stenosis of right carotid artery acute September 01, 2024 3:48pm Dizziness resolved September 01 3:48pm Generalized weakness resolved Apri l 2024 3:48pm Hypertensive emergency resolved Ap ril 2024 3:48pm Slurred speech resolved September 01, 2024 3:48pm CVA (cerebral vascular accident) inactive September 01, 2024 3:48pm Diabetes mellitus, type 2 inactive September 01, 2024 3:48pm Obesity (BMI 30-39.9) inactive Apr il 2024 3:48pm TIA on medication deleted September 012024 3:48pm Stenosis of right carotid artery acute September 17, 2024 10:53am Carotid artery disease acute 2024 12:53pm Stenosis of right carotid artery acute October 22, 2024 1 2:53pm [facility] Work Phone: 1(226) 685-560904-09-2025 Evaluation note* Diagnosis Onset Date Resolution Status Admit Date Poorly-controlled hypertension acute September 01, 2024 3:48pm Stenosis of right carotid artery acute September 01, 2024 3:48pm Dizziness resolved September 01 3:48pm Generalized weakness resolved Apri l 2024 3:48pm Hypertensive emergency resolved Ap ril 2024 3:48pm Slurred speech resolved September 01, 2024 3:48pm CVA (cerebral vascular accident) inactive September 01, 2024 3:48pm Diabetes mellitus, type 2 inactive September 01, 2024 3:48pm Obesity (BMI 30-39.9) inactive Apr il 2024 3:48pm TIA on medication deleted September 012024 3:48pm Stenosis of right carotid artery acute September 17, 2024 10:53am Carotid artery disease acute Ma 2024 12:53pm Difficulty swallowing acute October 22, 2024 12:53pm Stenosis of right carotid artery acute October 22, 2024 1 2:53pm Weakness acute October 22, 2024 12:53pm Acute hyponatremia acute October 222024 7:28pm Weakness acute October 22, 2024 7:28pm [facility] Work Phone: [phone]) 568-344904-09-2025 Radiology Diagnostic study note [facility] [address] [place] [address] CTA Head AND Neck W/ Contrast MR#: [id number] Acct: [id number] Name: CHELSEA MOODY Rep #: [id number] : 1940 F 83 From: Francisca Chapman MD PCP: Dr. Kurt Lieberman MD Status: A DM IN Study:CTA Head AND Neck W/ Contrast Date of E xam: 09/01/24 Exam# [id number] Ordering Dr: Eric Haro PROCEDURE: CTA HEAD AND NECK W/ CONTRAST 09/01/2024 REASON FOR EXAM: CVA, R CAROTID STENOSIS TECHNIQUE: CTA imaging of the head and neck from the aortic arch to the skull vertex with intravenous contrast. Coronal and Sagittal reconstruction series were provided. 3D, 3D post processing, 3D reconstructions, Maximum intensity projection (MIPs) Volume rendering and Shaded surface rendering was provided. CONTRAST: Omnipaque 350 VOLUME: 100 mL Not Provided Gauge IV One or more dose reduction techniques were used (e.g., Automated exposure control, adjustment of the mA and/or kV according to patient size, use of iterative reconstruction technique). # of known CTs in the past 12 months: 0 # of known Cardiac Nuclear Medicine Studies in the past 12 months: 0 COMPARISON: None FINDINGS: Aortic Arch: Three-vessel arch branch anatomy. Atherosclerotic calcification ofthe aortic arch without hemodynamically significant stenosis. Brachiocephalic and Subclavians: Atherosclerotic calcification of the proximal brachiocephalic arteries, without hemodynamically significant stenosis. RIGHT Carotid: Right CCA: No significant atherosclerotic calcification Right ICA: [place][id number] atherosclerotic calcified and noncalcified plaque at the bifurcation and proximal cervical ICA (series 2 image 187) Maximum stenosis (NASCET): 65 % Right ECA: Unremarkable. LEFT Carotid: Left CCA: No significant atherosclerotic calcification. Left ICA: Mild calcified and noncalcified plaque at the bifurcation and proximalICA without hemodynamically significant stenosis. Maximum stenosis (NASCET): 15 % Left ECA: Unremarkable. Vertebrals: Codominant. Arise from the subclavians. Both vertebrals form the basilar. RIGHT Vertebral: Unremarkable. LEFT Vertebral: Unremarkable. Anatomy: [place] anatomy is normal. Aneurysm or avm: No intracranial aneurysms or large vascular malformations are identified. Anterior cerebral arteries: Unremarkable: Middle cerebral arteries: Atherosclerotic calcification of the bilateral distal ICAs and carotid siphons, without hemodynamically significant stenosis. Mild focal stenosis at the proximal right M1 (series 2, image 327). Mild diffuse caliber left M1. No evidence of acute occlusion. No aneurysm. Basilar artery: Unremarkable. Posterior cerebral arteries: Unremarkable. Other major branches of the posterior circulation: Unremarkable. Major venous structures: Other findings: Neck: 3.5 cm inferior right thyroid lobe soft tissue mass (series 2, image 57). Lungs: Lung apices are clear. Bones: Multilevel degenerative changes of the cervicothoracic spine. CT/CTA Head AND Neck W/ Contrast IMPRESSION: Atherosclerotic calcification anterior and posterior intracranial circulation asdescribed above, most prominent at the right ICA bifurcation with resultant luminal narrowing. No evidence of acute occlusion, dissection or aneurysm Reading Location: [facility] CC: DAVI Green; Dr. Kurt Lieberman MD ~ Recycle Worker: Signed [facility]04-09-2025 Consult note [facility] Medical Records Department [address] [place] [address] Consultation - Neurology 09/01/24 1432 MR#: [id number] Acct: [id number] Name: CHELSEA MOODY Rep #:[id number] : 1940 83 From: Monik Barker MD PCP: Dr. Kurt Lieberman MD Status:A DM IN Location: [place] [address] Assessment and Plan: Neuro Assessment/Plan CHELSEA MOODY is a 83 F with a past medical history of HTN and DM2, being evaluated by Teleneurology for for stroke. 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 Agree with vascular surgery evaluation for CEA or HIRAL. Diagnosis: stroke related LG - Anti-platelet medication: Aspirin 81 mg daily - SBP goal 140-200 - Occupational/ Physical therapy consults - NPO until swallow evaluation. IVF until able to take po - DVT prophylaxis with SCDs and heparin SQ - Vascular risk factor modification. The following are the recommended guidelines: LDL Goal < 70 - cont lipitor 40mg Smoking Cessation Diabetes Management long term acute care registered nurse blood pressure control should achieve <130/80 mmHg. BP managementshould aim to achievelong term contorl in a reasonable amount of time, taking into consideration the individual patient's requirements and characteristics. Weight Management: Goal for BMI is 18.5 -24.9 kg/m2 Alcohol: No more than 2 drinks/day for men or 1 drink/day for non- women - Promote lifestyle modification: weight control, physical activity, moderation of alcohol intake, moderate sodium intake. Followup with PCP in 1-2 weeks, and in Neurology clinic in 6-12 weeks I personally attended this patient and spent a total time of 45minutes evaluating this patient including clinical assessment, review of chart, medical history imaging, and determining appropriate treatment and workup. HPI Consult Data Date of Consult: 09/01/24 HPI Narrative HPI Narrative: CHELSEA MOODY, is a 83 F with a past medical history of essential hypertension; poorly-controlled on metoprolol, obesity; BMI of 39.5 this admission, DM-2; of unknown control on insulin glargine 8U at bedtime, GERD; currently not on treatment and OA who presents to [facility] ER complaining of dizziness and highly elevated blood pressure. Ms. Moody reports her acute symptoms began a few hours prior to admission with a gradual-onset of progressively worsening dizziness and lightheadedness. She also admits to diffuse generalized weakness with patient recording her blood pressure up to 270/51 mmHg so she decided to come in for further evaluation and treatment. Shestates that her blood pressure has been poorly controlled for weeks with recent increase in her dose of metoprolol without subsequent improvement. She denies associated headache, focal neurologic deficits, truncalataxia, slurred speech, chest pain, palpitations, rash, other recent illness, near-syncope, syncopeor fall. In the ER she was diagnosed with Hypertensive Emergency and she was subsequently treated with 1 dose of 20 mg of IV hydralazine with subsequent slurred speech and lethargy after her blood pressure dropped from 168 mmHg systolic to 138/50 mmHg suspicious for possible 'watershed infarct' dueto rapiddecrease in blood pressure. She was then admitted to the PCU under observation status for ongoing care for a stay that is expected to be less than 2 midnights. Pt was getting supper when symptoms started - patient felt dizzy (lightheadedness) and felt the lights closing in on her. Had no symptoms on the L side at the time. She was not acting like herself and was crying. Pt's daughter states there was no clear facial droop and slurred speech. Pt now feelsback to normal. BP at home were in the 200s. BP was noted as high at a procedure. Nonsmoker, never had stroke before. Currently no dizziness or lightheadedness. [facility] Medical History GERD (gastroesophageal reflux disease) Hypertension Diabetes Home Medications ?Medication ?Instructions ?Recorded ?Last Taken ?Type insulin glargine 100 unit/mL (3 8 unit subcut QHS 01/17 Unknown History mL) subcutaneous pen (Lantus Solostar U-100 Insulin) metoprolol succinate 50 mg 100 mg PO DAILY 08/31/24 Un known History tablet,extended release 24 hr Allergy/AdvReac Type Severity Reaction Status Date / Time No Known Allergies Allergy Verified 08/31/24 19:32 Social History Smoking Status: Never smoker Vital Signs Vital Signs Vital Signs: 08/31/24 19:27 08/31/24 20:55 08/31/24 21:27 Temperature 97.8 F Temperature Source Oral Pulse Rate 66 65 Respiratory Rate 16 Respiratory Effort Respiratory Depth Respiratory Pattern Blood Pressure 224/66 H 202/70 H Blood Pressure Mean 118 114 Blood Pressure Source Blood Pressure Position Blood Pressure Location Pulse Ox 98 97 Oxygen Delivery Method Room Air Room Air Fraction of Inspired Oxygen (FIO2) 08/31/24 22:11 08/31/24 22:20 08/31/24 22:31 Temperature Temperature Source Pulse Rate 59 L 68 80 Respiratory Rate 18 18 15 Respiratory Effort Respiratory Depth Respiratory Pattern Blood Pressure 270/51 H 266/71 H 168/151 H Blood Pressure Mean 124 136 156 Blood Pressure Source Blood Pressure Position Blood Pressure Location Pulse Ox 97 99 97 Oxygen Delivery Method Room Air Fraction of Inspired Oxygen (FIO2) 08/31/24 22:33 08/31/24 22:50 08/31/24 23:04 Temperature 97.8 F Temperature Source Pulse Rate 80 79 Respiratory Rate 15 23 H Respiratory Effort Respiratory Depth Respiratory Pattern Blood Pressure 187/78 H 187/78 H 138/50 H Blood Pressure Mean 114 114 79 Blood Pressure Source Blood Pressure Position Blood Pressure Location Pulse Ox 97 Oxygen Delivery Method Fraction of Inspired Oxygen (FIO2) 09/01/24 00:00 09/01/24 00:17 09/01/24 01:03 Temperature 97 F L 97 F L Temperature Source Temporal Temporal Pulse Rate 79 78 75 Respiratory Rate 16 16 Respiratory Effort Respiratory Depth Respiratory Pattern Blood Pressure 194/50 H 176/45 H 167/43 H Blood Pressure Mean 98 88 84 Blood Pressure Source Monitor Monitor Monitor Blood Pressure Position Semi-Fowlers Semi-Fowlers Semi-Fowlers Blood Pressure Location Left Arm Left Arm Right Arm Pulse Ox 99 99 99 Oxygen Delivery Method Room Air Room Air Room Air Fraction of Inspired Oxygen (FIO2) 09/01/24 01:11 09/01/24 01:30 09/01/24 04:00 Temperature 98 F Temperature Source Oral Pulse Rate 75 66 Respiratory Rate 16 Respiratory Effort Normal Non-Labored Respiratory Depth Normal Respiratory Pattern Normal Blood Pressure 159/43 H Blood Pressure Mean 81 Blood Pressure Source Monitor Blood Pressure Position Semi-Fowlers Blood Pressure Location Right Arm Pulse Ox 96 98 Oxygen Delivery Method Room Air Room Air Fraction of Inspired Oxygen (FIO2) 21 09/01/24 08:00 09/01/24 08:00 09/01/24 08:00 Temperature 98.0 F 97.9 F Temperature Source Oral Temporal Pulse Rate 64 115 H Respiratory Rate 16 18 Respiratory Effort Normal Non-Labored Respiratory Depth Respiratory Pattern Blood Pressure 210/56 H 145/87 H Blood Pressure Mean 107 106 Blood Pressure Source Monitor Monitor Blood Pressure Position Semi-Fowlers Semi-Fowlers Blood Pressure Location Right Arm Right Arm Pulse Ox 97 96 Oxygen Delivery Method Room Air Room Air Room Air Fraction of Inspired Oxygen (FIO2) 09/01/24 12:00 09/01/24 14:00 Temperature 98.0 F Temperature Source Oral Pulse Rate 72 Respiratory Rate 16 Respiratory Effort Normal Non-Labored Respiratory Depth Respiratory Pattern Blood Pressure 202/58 H Blood Pressure Mean 106 Blood Pressure Source Monitor Blood Pressure Position Sitting Blood Pressure Location Left Arm Pulse Ox 98 Oxygen Delivery Method Room Air Fraction of Inspired Oxygen (FIO2) Weight Weight: 78.7 kg Body Mass Index (BMI) 38.9 EEG Results Procedure Details EEG Procedure Details: CHELSEA MOODY is a 83 year old F with a past medical history of , who presents for evaluation of Electroencephalogram on DATE at TIME NIHSS NIHSS Nursing Documentation NIHSS Nursing Documentation: NIHSS: Ischemic Stroke/TIA Start: 09/01/24 00:06 Text: For PCU Patients: NIH and Neuro Check every 4 Status: Active hours, PRN and with change in RN caregiver. Freq: [id number] Protocol: Activity Type Activity Date Activity User E-sign Co-sign Detail Recorded Client Recorded Date Recorded By Document 09/01/24 12:00 ML [id number] 09/01/24 12:25 ML 09/01/24 12:00 NIH Stroke Scale [NIHSS] A score of 0 is normal or asymptomatic . Total possible score is 42. Inpatient: RN or Physician to activate a stroke alert for onset of new stroke symptoms or with NIHSS increase >/= 3 points. Following change in neurological status, NIHSS will be performed per physician order or more frequently PRN. -1a. Level of Consciousness Alert; keenly responsive -1b. LOC Questions Answers BOTH questions correctly. -1c. LOC Commands Performs both tasks correctly . -2. Best Gaze Normal -3. Visual No visual loss -4. Facial Palsy Normal symmetrical movements -5a. Left Arm No drift; arm holds 90 (or 45 ) degrees for full 10 seconds -5b. Right Arm No drift; arm holds 90 (or 45 ) degrees for full 10 seconds -6a. Left Leg No drift; leg holds 30-degree position for full 5 seconds -6b. Right Leg No drift; leg holds 30-degree position for full 5 seconds -7. Limb Ataxia Absent -8. Sensory Normal; no sensory loss -9. Best Language No aphasia; normal -10. Dysarthria Normal -11. Extinction and Inattention No abnormality -Total 0 Query Text:A score of 0 is normal or asymptomatic. Total possible score is 42 . ED: Notify Physician for NIHSS increase by > / = 3 points. Inpatient: RN or Physician to activate a stroke alert for NIHSS increase of > / = 3 points. Coma Scale [Assess] -Eye Opening Spontaneous -Motor Obeys Commands -Verbal Oriented [Total] -Coma Scale Total 15 NIHSS 1a. Level of Consciousness: Alert; keenly responsive 1b. LOC Questions: Answers BOTH questions correctly. 1c. LOC Commands: Performs both tasks correctly. 2. Best Gaze: Normal 3. Visual: No visual loss 4. Facial Palsy: Normal symmetrical movements 5a. Left Arm: No drift; arm holds 90 (or 45) degrees for full 10 seconds 5b. Right Arm: No drift; arm holds 90 (or 45) degrees for full 10 seconds 6a. Left Leg: Drift; leg falls by the end of 5-seconds, but does not hit bed 6b. Right Leg: No drift; leg holds 30-degree position for full 5 seconds 7. Limb Ataxia: Present in 1 limb 8. Sensory: Normal; no sensory loss 9. Best Language: No aphasia; normal 10. Dysarthria: Normal 11. Extinction and Inattention: No abnormality Total: 2 Physical Exam Narrative -? General: Laying comfortably in bed; in no acute distress. -? HENT: Normal oropharynx and mucosa. Normal external appearance of ears and nose. Exophthalmos. -? Neck: Supple, no pain or tenderness -? CV:? No peripheral edema. -? Pulmonary:? Normal respiratory effort. -? Ext: No cyanosis, edema, or deformity -? Skin: No rash. Normal palpation of skin.? -? Musculoskeletal: full range of motion; no joint tenderness. Normal digits and nails by inspection. No clubbing. -? NEURO: -? Mental Status: The patient was alert and oriented to time, place, and person. Normal recent/remote memory, concentration, and general fund of knowledge. -? Language: speech is clear? Naming, repetition, fluency, and comprehension intact. -? Cranial Nerves: EOMI, visual ozuna full, no facial asymmetry, facial sensation intact, hearing intact, tongue midline, no evidence of atrophy or fibrillations. -? Motor: normal bulk, tone, and strength throughout. No pronator drift or satelliting. Upper and lower extremities equal bilaterally. -?Detailed strength exam as performed by the nurse/MYNOR and witnessed by the physician: l R L SA 5 5 EE EF WE WF Package Dyer 5 5 HF KE KF DF PF -? Tone: is normal and bulk is normal -? Sensation- Intact to light touch bilaterally -? Coordination: FTN w ataxia on the LUE, -? Gait- deferred Lab / Micro Data 08/31/24 21:00 08/31/24 21:00 Labs: Laboratory Results - last 24 hr 08/31/24 21:00: WBC 11.0, RBC 4.27, Hgb 13.1, Hct 38.5, MCV 90.2, MCH 30.7, MCHC 34.0, RDW Std Deviation 47.4 H, RDW Coeff of Óscar 14.3, Plt Count 296, MPV 10.7, Immature Gran % (Auto) 0.500, Neut % (Auto) 61.5, Lymph % (Auto) 24.9, [place] % (Auto) 9.1, Eos % (Auto) 3.2, Baso % (Auto) 0.8, Absolute Neuts (auto) 6.8, Absolute Lymphs (auto) 2.74, Nucleated RBC % 0, Sodium 136, Potassium 4.2, Chloride 103, Carbon Dioxide 20.7 L, Anion Gap 12, BUN 19, Creatinine 0.99, Estim Creat Clear Calc 39.57 L, Est GFR (MDRD) Non-Af 57 L, BUN/Creatinine Ratio 18.8, Glucose 155 H, Hemoglobin A1c 7.8, Calcium 9.1, Total Bilirubin 0.26, AST 21, ALT 26, Alkaline Phosphatase 123 H, Troponin T High Sens 12, NT pro BNP II 245, Total Protein 6.6, Albumin 3.8, Globulin 2.7, Albumin/Globulin Ratio 1.4 08/31/24 22:36: POC Glucose 141 H 08/31/24 22:51: Urine Color Yellow, Urine Clarity Clear, Urine pH 6.0, Ur Specific Husser 1.010, Urine Protein Negative, Urine Glucose (UA) Normal, Urine Ketones Negative, Urine Occult Blood Negative, Urine Nitrite Negative, Urine Bilirubin Negative, Urine Urobilinogen Normal, Ur Leukocyte Esterase Negative, Urine RBC 0 SEEN, Urine WBC 0-5 SEEN, Ur Squamous Epith Cells 5-10 SEEN, Urine Bacteria 2+, Urine Mucus 0 SEEN, Urine Opiates Screen NEGATIVE, U Buprenorphine Qual NEGATIVE, Ur Oxycodone Screen NEGATIVE, Urine Methadone Screen NEGATIVE, Urine Fentanyl Screen NEGATIVE, Ur Barbiturates Screen NEGATIVE, Ur Phencyclidine Scrn NEGATIVE, Ur Amphetamines Screen NEGATIVE, U Benzodiazepines Scrn NEGATIVE, Urine Cocaine Screen NEGATIVE, U Cannabinoids Screen NEGATIVE 08/31/24 23:14: Ethyl Alcohol < 10.1 08/31/24 23:19: Troponin T Hi Sens 2 Hr 13, TSH 2.070 09/01/24 00:53: Troponin T Hi Sens 4Hr 13, Triglycerides Cancelled 09/01/24 00:53: Triglycerides Cancelled, Cholesterol Cancelled 09/01/24 00:53: Cholesterol Cancelled, LDL Cholesterol, Calc Cancelled 09/01/24 00:53: LDL Cholesterol, Calc Cancelled, VLDL Cholesterol Cancelled 09/01/24 00:53: VLDL Cholesterol Cancelled, HDL Cholesterol Cancelled 09/01/24 00:53: HDL Cholesterol Cancelled, Cholesterol/HDL Ratio Cancelled 09/01/24 00:53: Cholesterol/HDL Ratio Cancelled, Vitamin B12 Cancelled, Serum Folate 10.10 09/01/24 05:45: Triglycerides 177, Cholesterol 205 H, LDL Cholesterol, Calc 123, VLDL Cholesterol 35, HDL Cholesterol 47, Cholesterol/HDL Ratio 4.38, Vitamin B12 421 09/01/24 06:26: POC Glucose 144 H Imaging Radiology Impression Brain CT 08/31/24 20:46 IMPRESSION: No acute intracranial abnormality. Chronic microvascular ischemia and involutional changes. Reading Location: [facility] Brain MRI 08/31/24 23:41 IMPRESSION: 1. Punctate high RIGHT frontal acute infarct. No mass-effect or appreciable hemorrhagic conversion. 2. Additional description as above. Reading Location: [id number] Carotid Duplex 08/31/24 23:41 Interpretation Summary Severe (>70%) stenosis right extracranial internal carotid. Mild (<50%) stenosis left extracranial internal carotid. Patent and antegrade vertebrals bilaterally. Ordering Physician: Severiano Ibarra Performed By: Na Isaac RVT Active Medications Active Medications Active Medications: Current Medications Generic Name Dose Route Start Last Admin Trade Name Freq PRN Reason Stop Dose Admin Acetaminophen 650 mg 09/01/24 00:06 Acetaminophen 325 Mg Tablet PO Q6H PRN PRN Pain 1-10 or Fever Aspirin 81 mg 09/01/24 08:00 09/01/24 08:58 Aspirin 81 Mg Tab.Chew PO 81 mg BREAKFAST PATIENCE Administration Atorvastatin Calcium 40 mg 08/31/24 23:45 09/01/24 00:54 Atorvastatin Calcium 40 Mg Tablet PO 40 mg QHS PATIENCE Administration Heparin Sodium (Porcine) 5,000 unit 09/01/24 10:00 09/01/24 08:58 Heparin Injection (Vial) 5,000 Unit/Ml Vial SC 5,000 unit BID PATIENCE Administration Sodium Chloride 100 mls @ 15 mls/hr 09/01/24 01:45 IV .Q6H40M PRN Saline Flush Sodium Chloride 100 mls @ 15 mls/hr 09/01/24 01:45 IV .Q6H40M PRN Additional IVPB Infusion Insulin Glargine 5 unit 09/01/24 22:00 Insulin Glargine-Yfgn 100 Unit/Ml Pen SC QHS PATIENCE Meclizine HCl 12.5 mg 09/01/24 00:06 Meclizine 12.5 Mg Tablet PO TID PRN PRN DIZZINESS Ondansetron HCl 4 mg 09/01/24 00:06 Ondansetron 4 Mg/2 Ml Vial IV Q4H PRN PRN NAUSEA/VOMITING Sodium Chloride 10 - 40 ml 09/01/24 01:45 0.9% Saline Lock 10 Ml Syringe IV UD PRN SALINE FLUSH 09/01/24 1621 Cosigner Signature (if applicable): CC: Dr. Kurt Lieberman MD~ Signed [facility]04-09-2025 History and physical note Author Severiano Gordillo [facility] Note Date/Time September 01, 2024 6:12 am [facility] Medical Records Department [address] [place] [address] H&P Exam - Hospitalist 08/31/24 2303 MR#: [id number] Acct: [id number] Name: CHELSEA OMODY Rep #:[id number] : 1940 83 From: Severiano Godfrey DO PCP: Dr. Kurt Lieberman MD Status:A DM JAMES Location: [place] [address] HPI - General General Date of Service: 08/31/24 Chief Complaint: Dizziness and Highly Elevated Blood Pressure. HPI Narrative CHELSEA MOODY, is a 83 F with a past medical history of essential hypertension; poorly-controlled on metoprolol, obesity; BMI of 39.5 this admission, DM-2; of unknown control on insulin glargine 8U at bedtime, GERD; currently not on treatment and OA who presents to [facility] ER complaining of dizziness and highly elevated blood pressure. Ms. Moody reports her acute symptoms began a few hours prior to admission with a gradual-onset of progressively worsening dizziness and lightheadedness. She also admits to diffuse generalized weakness with patient recording her blood pressure up to 270/51 mmHg so she decided to come in for further evaluation and treatment. Shestates that her blood pressure has been poorly controlled for weeks with recent increase in her dose of metoprolol without subsequent improvement. She denies associated headache, focal neurologic deficits, truncal ataxia, slurred speech, chest pain, palpitations, rash, other recent illness, near-syncope, syncope or fall. In the ER she was diagnosed with Hypertensive Emergency and she was subsequently treated with 1 dose of 20 mg of IV hydralazine with subsequent slurred speech and lethargy after her blood pressure dropped from 168 mmHg systolic to 138/50 mmHg suspicious for possible 'watershed infarct' due to rapiddecrease in blood pressure. She was then admitted to the PCU under observation status for ongoing care for a stay that is expected to be less than 2 midnights. [facility] Medical History GERD (gastroesophageal reflux disease) Hypertension Diabetes Home Medications ?Medication ?Instructions ?Recorded ?Last Taken ?Type insulin glargine 100 unit/mL (3 8 unit subcut QHS 01/17 Unknown History mL) subcutaneous pen (Lantus Solostar U-100 Insulin) metoprolol succinate 50 mg 100 mg PO DAILY 08/31/24 Un known History tablet,extended release 24 hr Allergy/AdvReac Type Severity Reaction Status Date / Time No Known Allergies Allergy Verified 08/31/24 19:32 Social History Smoking Status: Never smoker ROS ROS Narrative Review of Systems: Constitutional: Patient admits to lightheadedness, dizziness and diffuse generalized weakness but she denies fever or chills. Eyes: Patient denies changes in vision or discharge from eyes. ENT: Patient denies runny nose, sore throat or ear pain. Resp: Patient denies shortness of breath or cough. CV: Patient denies chest pain, palpitations, heart racing or lower extremity edema. GI: Patient denies abdominal pain, nausea, vomiting, diarrhea or constipation. : Patient denies dysuria, hematuria or urinary frequency. MSK: Patient admits to generalized weakness but she denies arthralgias or myalgias. Skin: Patient denies rash, abscess, wounds or jaundice. Psych: Patient denies symptoms of uncontrolled depression or anxiety. Neuro: Patient admits to dizziness, lightheadedness and generalized weakness with subsequent slurred speech after rapid decrease in blood pressure as per HPI. She denies headache or paresthesias. Allergies: Patient denies lip swelling, tongue swelling or urticaria. Hematology: Patient denies easy bleeding or easy bruisability. Endocrinology: Patient denies polyuria, polydipsia, polyphagia or heat/cold intolerance. 14 point ROS otherwise negative except for positives noted above in HPI. Vital Signs Vital Signs Vital Signs: 08/31/24 19:27 08/31/24 20:55 08/31/24 21:27 Temperature 97.8 F Temperature Source Oral Pulse Rate 66 65 Respiratory Rate 16 Blood Pressure 224/66 H 202/70 H Blood Pressure Mean 118 114 Pulse Ox 98 97 Oxygen Delivery Method Room Air Room Air 08/31/24 22:11 08/31/24 22:20 08/31/24 22:31 Temperature Temperature Source Pulse Rate 59 L 68 80 Respiratory Rate 18 18 15 Blood Pressure 270/51 H 266/71 H 168/151 H Blood Pressure Mean 124 136 156 Pulse Ox 97 99 97 Oxygen Delivery Method Room Air 08/31/24 22:33 08/31/24 22:50 08/31/24 23:04 Temperature 97.8 F Temperature Source Pulse Rate 80 79 Respiratory Rate 15 23 H Blood Pressure 187/78 H 187/78 H 138/50 H Blood Pressure Mean 114 114 79 Pulse Ox 97 Oxygen Delivery Method Weight Weight: 176 lb 2.389 oz Body Mass Index (BMI) 39.4 Results Medical Records Data Attestation: I reviewed the patient's medical records Lab / Micro Data Attestation: I reviewed the patient's lab results. 08/31/24 21:00 08/31/24 21:00 Labs: Laboratory Results - last 24 hr 08/31/24 21:00: WBC 11.0, RBC 4.27, Hgb 13.1, Hct 38.5, MCV 90.2, MCH 30.7, MCHC34.0, RDW Std Deviation 47.4 H, RDW Coeff of Óscar 14.3, Plt Count 296, MPV 10.7, Immature Gran % (Auto) 0.500, Neut % (Auto) 61.5, Lymph % (Auto) 24.9, [place]nee % (Auto) 9.1, Eos % (Auto) 3.2, Baso % (Auto) 0.8, Absolute Neuts (auto) 6.8, Absolute Lymphs (auto) 2.74, Nucleated RBC % 0, Sodium 136, Potassium 4.2, Chloride 103, Carbon Dioxide 20.7 L, Anion Gap 12, BUN 19, Creatinine 0.99, Estim Creat Clear Calc 39.57 L, Est GFR (MDRD) Non-Af 57 L, BUN/Creatinine Ratio 18.8, Glucose 155 H, Calcium 9.1, Total Bilirubin 0.26, AST 21, ALT 26, AlkalinePhosphatase 123 H, Troponin T High Sens 12, NT pro BNP II 245, Total Protein 6.6, Albumin 3.8, Globulin 2.7, Albumin/Globulin Ratio 1.4 08/31/24 22:36: POC Glucose 141 H 08/31/24 22:51: Urine Color Yellow, Urine Clarity Clear, Urine pH 6.0, Ur Specific Husser 1.010, Urine Protein Negative, Urine Glucose (UA) Normal, UrineKetones Negative, Urine Occult Blood Negative, Urine Nitrite Negative, Urine Bilirubin Negative, Urine Urobilinogen Normal, Ur Leukocyte Esterase Negative, Urine RBC 0 SEEN, Urine WBC 0-5 SEEN, Ur Squamous Epith Cells 5-10 SEEN, Urine Bacteria 2+, Urine Mucus 0 SEEN Imaging Radiology Impression Brain CT 08/31/24 20:46 IMPRESSION: No acute intracranial abnormality. Chronic microvascular ischemia and involutional changes. Reading Location: [facility] Assessment & Plan Assessment/Plan (1) Hypertensive emergency: (2) Dizziness: (3) Generalized weakness: (4) Slurred speech: (5) TIA on medication: (6) Poorly-controlled hypertension: (7) Obesity (BMI 30-39.9): (8) Diabetes mellitus, type 2: QUALIFIERS: Diabetes mellitus complication detail: with other neurological complication Diabetes mellitus complication status: with neurologic complications Diabetes mellitus long term acute care registered nurse insulin use: with long term acute care registered nurse use Qualified Code(s): E11.49 - Type 2 diabetes mellitus with other diabetic neurological complication; Z79.4 - alf (current) use of insulin PLAN: Plan 1. Hypertensive Emergency; evidenced by elevated blood pressure of 270/51 mmHg noted shortly after admission with associated dizziness and diffuse generalized weakness - Admit to PCU under observation status. Serialize troponin. Check echocardiogram to evaluate LVEF. Check TSH, UDS, B12, Folate and Lipid Profile. Give meclizine as needed dizziness. Give acetaminophen as needed for pain or fever. 2. Possible TIA vs 'watershed infarct' with slurred speech after rapid drop in blood pressure complicating #1 - Check MRI of the brain to evaluate for possibleCVA. Check carotid Doppler to evaluate for stenosis. Start treatment with babyaspirin and statin. Finally, we will consult [facility] tel[facility] to see this patient for further recommendations with help appreciated in advance. 3. Essential Hypertension; poorly-controlled on metoprolol as outpatient compounding #1 & #2 - Noted with patient potentially having secondary hypertension which will need to be worked up if her blood pressure remains difficult to control. 4. Obesity; BMI of 39.5 this admission adding to the burden of disease outlinedfrom #1 - #3 - Weight loss will be recommended. We will screen for suspected IRVING. Check TSH. This complicates her case and may hamper recovery. 5. DM-2; of unknown control on insulin glargine 8U at bedtime - Cut insulin glargine to 5 units SQ at bedtime. Give ADA diet plus lowest-intensity SSI. Check hemoglobin A1c to objectively evaluate quality of diabetic control. 6. GERD; currently not on treatment - Start PPI if symptoms develop. 7. OA - Give acetaminophen prn. 8. DVT prophylaxis - Heparin 5,000U sq BID plus SCD's. Total time: Approximately (but not less than) 70 minutes. Charges/Coding Visit Charges OBSV E&M: 78227 Observ/hosp same date L2 09/01/24 0612 <Electronically signed by Severiano Ibarra DO> Cosigner Signature (if applicable): CC: Dr. Severiano Ibarra DO; Dr. Kurt Lieberman MD~ Signed [facility] Work Phone: [phone] History and physical note [facility] Medical Records Department [address] [place] [id number] H&P Exam - Hospitalist 08/31/24 2305 MR#: [id number] Acct: [id number] Name: CHELSEA MOODY Rep #:[id number] : 1940 83 From: Severiano Godfrey DO PCP: Dr. Kurt Lieberman MD Status:A DM JAMES Location: [place] [address] HPI - General General Date of Service: 08/31/24 Chief Complaint: Dizziness and Highly Elevated Blood Pressure. HPI Narrative CHELSEA MOODY, is a 83 F with a past medical history of essential hypertension; poorly-controlled on metoprolol, obesity; BMI of 39.5 this admission, DM-2; of unknown control on insulin glargine 8U at bedtime, GERD; currently not on treatment and OA who presents to [facility] ER complaining of dizziness and highly elevated blood pressure. Ms. Moody reports her acute symptoms began a few hours prior to admission with a gradual-onset of progressively worsening dizziness and lightheadedness. She also admits to diffuse generalized weakness with patient recording her blood pressure up to 270/51 mmHg so she decided to come in for further evaluation and treatment. Shestates that her blood pressure has been poorly controlled for weeks with recent increase in her dose of metoprolol without subsequent improvement. She denies associated headache, focal neurologic deficits, truncalataxia, slurred speech, chest pain, palpitations, rash, other recent illness, near-syncope, syncopeor fall. In the ER she was diagnosed with Hypertensive Emergency and she was subsequently treated with 1 dose of 20 mg of IV hydralazine with subsequent slurred speech and lethargy after her blood pressure dropped from 168 mmHg systolic to 138/50 mmHg suspicious for possible 'watershed infarct' dueto rapiddecrease in blood pressure. She was then admitted to the PCU under observation status for ongoing care for a stay that is expected to be less than 2 midnights. [facility] Medical History GERD (gastroesophageal reflux disease) Hypertension Diabetes Home Medications ?Medication ?Instructions ?Recorded ?Last Taken ?Type insulin glargine 100 unit/mL (3 8 unit subcut QHS 01/17 Unknown History mL) subcutaneous pen (Lantus Solostar U-100 Insulin) metoprolol succinate 50 mg 100 mg PO DAILY 08/31/24 Un known History tablet,extended release 24 hr Allergy/AdvReac Type Severity Reaction Status Date / Time No Known Allergies Allergy Verified 08/31/24 19:32 Social History Smoking Status: Never smoker ROS ROS Narrative Review of Systems: Constitutional: Patient admits to lightheadedness, dizziness and diffuse generalized weakness but she denies fever or chills. Eyes: Patient denies changes in vision or discharge from eyes. ENT: Patient denies runny nose, sore throat or ear pain. Resp: Patient denies shortness of breath or cough. CV: Patient denies chest pain, palpitations, heart racing or lower extremity edema. GI: Patient denies abdominal pain, nausea, vomiting, diarrhea or constipation. : Patient denies dysuria, hematuria or urinary frequency. MSK: Patient admits to generalized weakness but she denies arthralgias or myalgias. Skin: Patient denies rash, abscess, wounds or jaundice. Psych: Patient denies symptoms of uncontrolled depression or anxiety. Neuro: Patient admits to dizziness, lightheadedness and generalized weakness with subsequent slurred speech after rapid decrease in blood pressure as per HPI. She denies headache or paresthesias. Allergies: Patient denies lip swelling, tongue swelling or urticaria. Hematology: Patient denies easy bleeding or easy bruisability. Endocrinology: Patient denies polyuria, polydipsia, polyphagia or heat/cold intolerance. 14 point ROS otherwise negative except for positives noted above in HPI. Vital Signs Vital Signs Vital Signs: 08/31/24 19:27 08/31/24 20:55 08/31/24 21:27 Temperature 97.8 F Temperature Source Oral Pulse Rate 66 65 Respiratory Rate 16 Blood Pressure 224/66 H 202/70 H Blood Pressure Mean 118 114 Pulse Ox 98 97 Oxygen Delivery Method Room Air Room Air 08/31/24 22:11 08/31/24 22:20 08/31/24 22:31 Temperature Temperature Source Pulse Rate 59 L 68 80 Respiratory Rate 18 18 15 Blood Pressure 270/51 H 266/71 H 168/151 H Blood Pressure Mean 124 136 156 Pulse Ox 97 99 97 Oxygen Delivery Method Room Air 08/31/24 22:33 08/31/24 22:50 08/31/24 23:04 Temperature 97.8 F Temperature Source Pulse Rate 80 79 Respiratory Rate 15 23 H Blood Pressure 187/78 H 187/78 H 138/50 H Blood Pressure Mean 114 114 79 Pulse Ox 97 Oxygen Delivery Method Weight Weight: 176 lb 2.389 oz Body Mass Index (BMI) 39.4 Results Medical Records Data Attestation: I reviewed the patient's medical records Lab / Micro Data Attestation: I reviewed the patient's lab results. 08/31/24 21:00 08/31/24 21:00 Labs: Laboratory Results - last 24 hr 08/31/24 21:00: WBC 11.0, RBC 4.27, Hgb 13.1, Hct 38.5, MCV 90.2, MCH 30.7, MCHC34.0, RDW Std Deviation 47.4 H, RDW Coeff of Óscar 14.3, Plt Count 296, MPV 10.7, Immature Gran % (Auto) 0.500, Neut % (Auto) 61.5, Lymph % (Auto) 24.9, [place]nee % (Auto) 9.1, Eos % (Auto) 3.2, Baso % (Auto) 0.8, Absolute Neuts (auto) 6.8, Absolute Lymphs (auto) 2.74, Nucleated RBC % 0, Sodium 136, Potassium 4.2, Chloride 103, Carbon Dioxide 20.7 L, Anion Gap 12, BUN 19, Creatinine 0.99, Estim Creat Clear Calc 39.57 L, Est GFR (MDRD) Non-Af 57 L, BUN/Creatinine Ratio 18.8, Glucose 155 H, Calcium 9.1, Total Bilirubin 0.26, AST 21, ALT 26, AlkalinePhosphatase 123 H, Troponin T High Sens 12, NT pro BNP II 245, Total Protein 6.6, Albumin 3.8, Globulin 2.7, Albumin/Globulin Ratio 1.4 08/31/24 22:36: POC Glucose 141 H 08/31/24 22:51: Urine Color Yellow, Urine Clarity Clear, Urine pH 6.0, Ur Specific Husser 1.010, Urine Protein Negative, Urine Glucose (UA) Normal, UrineKetones Negative, Urine Occult Blood Negative, Urine Nitrite Negative, Urine Bilirubin Negative, Urine Urobilinogen Normal, Ur Leukocyte Esterase Negative, Urine RBC 0 SEEN, Urine WBC 0-5 SEEN, Ur Squamous Epith Cells 5-10 SEEN, Urine Bacteria 2+, Urine Mucus 0 SEEN Imaging Radiology Impression Brain CT 08/31/24 20:46 IMPRESSION: No acute intracranial abnormality. Chronic microvascular ischemia and involutional changes. Reading Location: [facility] Assessment & Plan Assessment/Plan (1) Hypertensive emergency: (2) Dizziness: (3) Generalized weakness: (4) Slurred speech: (5) TIA on medication: (6) Poorly-controlled hypertension: (7) Obesity (BMI 30-39.9): (8) Diabetes mellitus, type 2: QUALIFIERS: Diabetes mellitus complication detail: with other neurological complication Diabetes mellitus complication status: with neurologic complications Diabetes mellitus alf insulin use: with long term acute care registered nurse use Qualified Code(s): E11.49 - Type 2 diabetes mellitus with other diabetic neurological complication; Z79.4 - alf (current) use of insulin PLAN: Plan 1. Hypertensive Emergency; evidenced by elevated blood pressure of 270/51 mmHg noted shortly after admission with associated dizziness and diffuse generalized weakness - Admit to PCU under observation status. Serialize troponin. Check echocardiogram to evaluate LVEF. Check TSH, UDS, B12, Folate andLipid Profile. Give meclizine as needed dizziness. Give acetaminophen as needed for pain or fever. 2. Possible TIA vs 'watershed infarct' with slurred speech after rapid drop in blood pressure complicating #1 - Check MRI of the brain to evaluate for possibleCVA. Check carotid Doppler to evaluate for stenosis. Start treatment with babyaspirin and statin. Finally, [facility] for further recommendations with help appreciated in advance. 3. Essential Hypertension; poorly-controlled on metoprolol as outpatient compounding #1 & #2 - Noted with patient potentially having secondary hypertension which will need to be worked up if her blood pressure remains difficult to control. 4. Obesity; BMI of 39.5 this admission adding to the burden of disease outlinedfrom #1 - #3 - Weight loss will be recommended. We will screen for suspected IVRING. Check TSH. This complicates her case and may hamper recovery. 5. DM-2; of unknown control on insulin glargine 8U at bedtime - Cut insulin glargine to 5 units SQ at bedtime. Give ADA diet plus lowest-intensity SSI. Check hemoglobin A1c to objectively evaluate quality of diabetic control. 6. GERD; currently not on treatment - Start PPI if symptoms develop. 7. OA - Give acetaminophen prn. 8. DVT prophylaxis - Heparin 5,000U sq BID plus SCD's. Total time: Approximately (but not less than) 70 minutes. Charges/Coding Visit Charges OBSV E&M: 91196 Observ/hosp same date L2 09/01/24 0601 Cosigner Signature (if applicable): CC: Dr. Severiano Ibarra DO; Dr. Kurt Lieberman MD~ Signed [facility]04-09-2025 Discharge summary Author Murphy Ramírez [facility] Note Date/Time August 31, 2024 11:1 [facility] Department [address] [place] [address] Emergency Department Summary 08/31/24 MR#: [id number] Acct: [id number] Name: CHELSEA MOODY Rep #:[id number] : 1940 83 From: Murphy Bobo PCP: Dr. Kurt Lieberman MD Status:R EG ER Location: ED HPI History of Present Illness Chief Complaint: Dizziness [facility] Medical History (Updated 08/31/24 @ 20:30 by Annika Melton) GERD (gastroesophageal reflux disease) Hypertension Diabetes Home Medications ?Medication ?Instructions ?Recorded ?Last Taken ?Type insulin glargine 100 unit/mL (3 8 unit subcut QHS 01/17 Unknown History mL) subcutaneous pen (Lantus Solostar U-100 Insulin) metoprolol succinate 50 mg 100 mg PO DAILY 08/31/24 Un known History tablet,extended release 24 hr Allergy/AdvReac Type Severity Reaction Status Date / Time No Known Allergies Allergy Verified 08/31/24 19:32 Social History Smoking Status: Never smoker EXAM Physical Exam Const Vital Signs: 08/31/24 19:27 08/31/24 20:55 08/31/24 21:27 Temperature 97.8 F Temperature Source Oral Pulse Rate 66 65 Respiratory Rate 16 Blood Pressure 224/66 H 202/70 H Blood Pressure Mean 118 114 Pulse Ox 98 97 Oxygen Delivery Method Room Air Room Air 08/31/24 22:11 08/31/24 22:20 08/31/24 22:31 Temperature Temperature Source Pulse Rate 59 L 68 80 Respiratory Rate 18 18 15 Blood Pressure 270/51 H 266/71 H 168/151 H Blood Pressure Mean 124 136 156 Pulse Ox 97 99 97 Oxygen Delivery Method Room Air 08/31/24 22:33 Temperature Temperature Source Pulse Rate Respiratory Rate Blood Pressure 187/78 H Blood Pressure Mean 114 Pulse Ox Oxygen Delivery Method MDM MDM MDM Narrative Medical decision making narrative: HISTORY OF PRESENT ILLNESS: Chief complaint: Dizziness 83-year-old female history of diabetes and hypertension presents with dizziness. Also lightheaded/dizzy and diffusely weak. Notes this began earlier today. Nofalls or trauma. No chest pain. No shortness of breath. No palpitations. No focal weakness, slurred speech, facial drooping, incoordination. She felt she has not passed out. REVIEW OF SYSTEMS: Pertinent positives: Dizziness Pertinent negatives: Chest pain, shortness of breath, palpitation PHYSICAL EXAM: Nursing triage notes reviewed, Vital signs reviewed Constitutional: please see mdm HENT: MMM Eyes: Pupils equal round and reactive to light, Extraocular muscles intact Neck: No stridor, no JVD, full neck ROM Lungs: Clear to auscultation, No wheezing or rales. No increased work of breathing, no conversational dyspnea, no accessory muscle use, no nasal flaring. No respiratory distress noted Heart: Regular rate and rhythm, No murmurs, No rubs and No gallops, 2+ distal pulses (radial, femoral, posterior tibial) in all extremities Abdomen: Soft, there is no tenderness, rigidity, rebound or guarding, no obviousperitoneal signs, no palpable pulsatile abdominal masses, no auscultated abdominal bruit : No CVAT Extremities: No edema Neuro: Alert and oriented x3, neuro exam at baseline, cranial nerves II through XII are intact. No pain with extraocular muscle movement. There is negative test of skew. 5 of 5 strength in upper and lower extremities in flexion extension. Intact sensation to light touch in upper and lower extremity dermatomes. No truncal or extremity ataxia. No dysdiadochokinesia. 2+ reflexes in upper and lower extremities. No meningeal signs. Negative Babinski. NIH of 0. Skin: No rash or lesions noted MEDICAL DECISION MAKING: Chief Complaint: please see HPI External records reviewed: Reviewed prior imaging studies Factors affecting care: Hypertension, type 2 diabetes Social determinants of health: none History obtained from others: none Consults: none [facility] Narrative: Patient was initially hypertensive blood pressure 224/66 otherwise afebrile and nontoxic-appearing. Initial exam without focal neurologic deficits. No focal cardiopulmonary abnormalities I considered the following differential diagnosis: Endorgan damage of elevated blood pressure, ICH, ACS, arrhythmia, anemia, kidney dysfunction, CVA Patient's blood pressure continued to elevate with systolics as high as 266 so she was given 20 mg IV hydralazine given heart rate was initially in the 60s. After IV hydralazine patient blood pressure improved to 168 systolic. Patient noted she felt weak or different. Daughter noted some transient slurred speech which resolved upon my assessment. Repeat neurologic exam remained intact NIH was 0. ALL IMAGES (IF OBTAINED) HAVE BEEN PERSONALLY REVIEWED AND INTERPRETED BY MYSELF. EKG with normal sinus rhythm rate 64, normal axis, normal intervals, no STEMI CBC without leukocytosis, severe anemia, no thrombocytopenia. BMP without evidence of significant electrolyte abnormalities, no anion gap, no acute kidney injury. LFTs show no evidence of hepatobiliary pathology. High-sensitivity troponin is negative, no evidence of myocardial ischemia BNP within normal limit suggestive no heart failure CT scan without contrast showed no acute intracranial normality. The synthesis of the patient's history, physical exam, labs images suggest poorly controlled hypertension likely resulting in the patient's presentation. Decided to admit the patient given concern for poorly controlled blood pressure at home, symptomatic hypertension, hypertensive urgency as well as transient slurred speech and concern for TIA versus CVA. Discussed with hospitalist The patient and/or family, caregivers express understanding. The patient and/orfamily, caregivers agrees with the plan. Shared decision making: I will have a discussion with the patient and or visitors regarding risk/benefits of further testing or admission. They will be made aware of of the risk/benefits inherent in this decision they will be given the opportunity to voice understanding. Total critical care time today provided was at least 35 minutes. This excludes separately billable procedures. Critical care time (if documented) is secondary to the patient having high probability of clinically significant/life threatening deterioration in the patient's condition which required my urgent intervention. Impression: 1. Dizziness 2. Poorly controlled hypertension 3. Hypertensive Urgency Dispo: Admit This note was generated with [employer] dictation software. It may contain incorrectwords, spelling, and punctuation that were not noted in review of the chart prior to signing. Lab Data Labs: Laboratory Results - last 24 hr 08/31/24 21:00 WBC 11.0 RBC 4.27 Hgb 13.1 Hct 38.5 MCV 90.2 MCH 30.7 MCHC 34.0 RDW Std Deviation 47.4 H RDW Coeff of Óscar 14.3 Plt Count 296 MPV 10.7 Immature Gran % (Auto) 0.500 Neut % (Auto) 61.5 Lymph % (Auto) 24.9 [place]nee % (Auto) 9.1 Eos % (Auto) 3.2 Baso % (Auto) 0.8 Absolute Neuts (auto) 6.8 Absolute Lymphs (auto) 2.74 Nucleated RBC % 0 Sodium 136 Potassium 4.2 Chloride 103 Carbon Dioxide 20.7 L Anion Gap 12 BUN 19 Creatinine 0.99 Estim Creat Clear Calc 39.57 L Est GFR (MDRD) Non-Af 57 L BUN/Creatinine Ratio 18.8 Glucose 155 H Calcium 9.1 Total Bilirubin 0.26 AST 21 ALT 26 Alkaline Phosphatase 123 H Troponin T High Sens 12 NT pro BNP II 245 Total Protein 6.6 Albumin 3.8 Globulin 2.7 Albumin/Globulin Ratio 1.4 Radiography Diagnostic Testing: Clinical Impression(s) from Imaging Studies Brain CT 08/31/24 20:46 IMPRESSION: No acute intracranial abnormality. Chronic microvascular ischemia and involutional changes. Reading Location: [facility] Discharge Plan Triage Chief Complaint: Dizziness ED Provider: Murphy Ramírez Dx/Rx/DC Orders Prescriptions: No Action metoprolol succinate 50 mg tablet extended release 24 hr 100 mg PO DAILY insulin glargine [Lantus Solostar U-100 Insulin] 100 unit/mL (3 mL) insulin pen 8 unit subcut Q Primary Care Provider: Kurt Lieberman Referrals: Kurt Lieberman MD [Primary Care Provider] - Print Language: Haitian What to do if you have Problems For any increased pain, shortness of breath, bleeding, nausea or vomiting, chestpain, or any unexpected problems, contact your Primary Care Provider. Call [facility] ([phone]) or report to the closest Emergency Room. Call 911 if necessary. 08/31/24 2311 <Electronically signed by Murphy Ramírez DO> Cosigner Signature (if applicable): CC: Dr. Kurt Lieberman MD ~ Signed [facility] Work Phone: 1(329) 186-247704-08-2025 Discharge summary [facility] Medical Records Department [address] [place] [address] Emergency Department Summary 08/31/24 MR#: [id number] Acct: [id number] Name: ALYSHAAbigailCHELSEA A Rep #:[id number] : 1940 83 From: Murphy Bobo PCP: Dr. Kurt Lieberman MD Status:R EG ER Location: ED HPI History of Present Illness Chief Complaint: Dizziness [facility] Medical History (Updated 08/31/24 @ 20:30 by Annika Melton) GERD (gastroesophageal reflux disease) Hypertension Diabetes Home Medications ?Medication ?Instructions ?Recorded ?Last Taken ?Type insulin glargine 100 unit/mL (3 8 unit subcut QHS 01/17 Unknown History mL) subcutaneous pen (Lantus Solostar U-100 Insulin) metoprolol succinate 50 mg 100 mg PO DAILY 08/31/24 Un known History tablet,extended release 24 hr Allergy/AdvReac Type Severity Reaction Status Date / Time No Known Allergies Allergy Verified 08/31/24 19:32 Social History Smoking Status: Never smoker EXAM Physical Exam Const Vital Signs: 08/31/24 19:27 08/31/24 20:55 08/31/24 21:27 Temperature 97.8 F Temperature Source Oral Pulse Rate 66 65 Respiratory Rate 16 Blood Pressure 224/66 H 202/70 H Blood Pressure Mean 118 114 Pulse Ox 98 97 Oxygen Delivery Method Room Air Room Air 08/31/24 22:11 08/31/24 22:20 08/31/24 22:31 Temperature Temperature Source Pulse Rate 59 L 68 80 Respiratory Rate 18 18 15 Blood Pressure 270/51 H 266/71 H 168/151 H Blood Pressure Mean 124 136 156 Pulse Ox 97 99 97 Oxygen Delivery Method Room Air 08/31/24 22:33 Temperature Temperature Source Pulse Rate Respiratory Rate Blood Pressure 187/78 H Blood Pressure Mean 114 Pulse Ox Oxygen Delivery Method MDM MDM MDM Narrative Medical decision making narrative: HISTORY OF PRESENT ILLNESS: Chief complaint: Dizziness 83-year-old female history of diabetes and hypertension presents with dizziness. Also lightheaded/dizzy and diffusely weak. Notes this began earlier today. Nofalls or trauma. No chest pain. No shortness of breath. No palpitations. No focal weakness, slurred speech, facial drooping, incoordination. She felt she has not passed out. REVIEW OF SYSTEMS: Pertinent positives: Dizziness Pertinent negatives: Chest pain, shortness of breath, palpitation PHYSICAL EXAM: Nursing triage notes reviewed, Vital signs reviewed Constitutional: please see mdm HENT: MMM Eyes: Pupils equal round and reactive to light, Extraocular muscles intact Neck: No stridor, no JVD, full neck ROM Lungs: Clear to auscultation, No wheezing or rales. No increased work of breathing, no conversational dyspnea, no accessory muscle use, no nasal flaring. No respiratory distress noted Heart: Regular rate and rhythm, No murmurs, No rubs and No gallops, 2+ distal pulses (radial, femoral, posterior tibial) in all extremities Abdomen: Soft, there is no tenderness, rigidity, rebound or guarding, no obviousperitoneal signs, no palpable pulsatile abdominal masses, no auscultated abdominal bruit : No CVAT Extremities: No edema Neuro: Alert and oriented x3, neuro exam at baseline, cranial nerves II through XII are intact. No pain with extraocular muscle movement. There is negative test of skew. 5 of 5 strength in upper and lower extremities in flexion extension. Intact sensation to light touch in upper and lower extremitydermatomes. No truncal or extremity ataxia. No dysdiadochokinesia. 2+ reflexes in upper and lower extremities. No meningeal signs. Negative Babinski. NIH of 0. Skin: No rash or lesions noted MEDICAL DECISION MAKING: Chief Complaint: please see HPI External records reviewed: Reviewed prior imaging studies Factors affecting care: Hypertension, type 2 diabetes Social determinants of health: none History obtained from others: none Consults: none [facility] Narrative: Patient was initially hypertensive blood pressure 224/66 otherwise afebrile and nontoxic-appearing.Initial exam without focal neurologic deficits. No focal cardiopulmonary abnormalities I considered the following differential diagnosis: Endorgan damage of elevated blood pressure, ICH,ACS, arrhythmia, anemia, kidney dysfunction, CVA Patient's blood pressure continued to elevate with systolics as high as 266 so she was given 20 mg IV hydralazine given heart rate was initially in the 60s. After IV hydralazine patient blood pressure improved to 168 systolic. Patient noted she felt weak or different. Daughter noted some transient slurred speech which resolved upon my assessment. Repeat neurologic exam remained intact NIH was 0. ALL IMAGES (IF OBTAINED) HAVE BEEN PERSONALLY REVIEWED AND INTERPRETED BY MYSELF. EKG with normal sinus rhythm rate 64, normal axis, normal intervals, no STEMI CBC without leukocytosis, severe anemia, no thrombocytopenia. BMP without evidence of significant electrolyte abnormalities, no anion gap, no acute kidney injury. LFTs show no evidence of hepatobiliary pathology. High-sensitivity troponin is negative, no evidence of myocardial ischemia BNP within normal limit suggestive no heart failure CT scan without contrast showed no acute intracranial normality. The synthesis of the patient's history, physical exam, labs images suggest poorly controlled hypertension likely resulting in the patient's presentation. Decided to admit the patient given concern for poorly controlled blood pressure at home, symptomatic hypertension, hypertensive urgency as well as transient slurred speech and concern for TIA versus CVA. Discussed with hospitalist The patient and/or family, caregivers express understanding. The patient and/orfamily, caregivers agrees with the plan. Shared decision making: I will have a discussion with the patient and or visitors regarding risk/benefits of further testing or admission. They will be made aware of of the risk/benefits inherent in this decision they will be given the opportunity to voice understanding. Total critical care time today provided was at least 35 minutes. This excludes separately billable procedures. Critical care time (if documented) is secondary to the patient having high probability of clinically significant/life threatening deterioration in the patient's condition which required myurgent intervention. Impression: 1. Dizziness 2. Poorly controlled hypertension 3. Hypertensive Urgency Dispo: Admit This note was generated with [employer] dictation software. It may contain incorrectwords, spelling, and punctuation that were not noted in review of the chart prior to signing. Lab Data Labs: Laboratory Results - last 24 hr 08/31/24 21:00 WBC 11.0 RBC 4.27 Hgb 13.1 Hct 38.5 MCV 90.2 MCH 30.7 MCHC 34.0 RDW Std Deviation 47.4 H RDW Coeff of Óscar 14.3 Plt Count 296 MPV 10.7 Immature Gran % (Auto) 0.500 Neut % (Auto) 61.5 Lymph % (Auto) 24.9 [place]nee % (Auto) 9.1 Eos % (Auto) 3.2 Baso % (Auto) 0.8 Absolute Neuts (auto) 6.8 Absolute Lymphs (auto) 2.74 Nucleated RBC % 0 Sodium 136 Potassium 4.2 Chloride 103 Carbon Dioxide 20.7 L Anion Gap 12 BUN 19 Creatinine 0.99 Estim Creat Clear Calc 39.57 L Est GFR (MDRD) Non-Af 57 L BUN/Creatinine Ratio 18.8 Glucose 155 H Calcium 9.1 Total Bilirubin 0.26 AST 21 ALT 26 Alkaline Phosphatase 123 H Troponin T High Sens 12 NT pro BNP II 245 Total Protein 6.6 Albumin 3.8 Globulin 2.7 Albumin/Globulin Ratio 1.4 Radiography Diagnostic Testing: Clinical Impression(s) from Imaging Studies Brain CT 08/31/24 20:46 IMPRESSION: No acute intracranial abnormality. Chronic microvascular ischemia and involutional changes. Reading Location: [facility] Discharge Plan Triage Chief Complaint: Dizziness ED Provider: Murphy Ramírez Dx/Rx/DC Orders Prescriptions: No Action metoprolol succinate 50 mg tablet extended release 24 hr 100 mg PO DAILY insulin glargine [Lantus Solostar U-100 Insulin] 100 unit/mL (3 mL) insulin pen 8 unit subcut QHS Primary Care Provider: Kurt Lieberman Referrals: Kurt Lieberman MD [Primary Care Provider] - Print Language: Haitian What to do if you have Problems For any increased pain, shortness of breath, bleeding, nausea or vomiting, chestpain, or any unexpected problems, contact your Primary Care Provider. Call [facility] ([phone]) or report tothe closest Emergency Room. Call 911 if necessary. 08/31/24 2311 Cosigner Signature (if applicable): CC: Dr. Kurt Lieberman MD ~ Signed [facility]04-08-2025 Radiology Diagnostic study note [facility] Imaging Services [address], [place] [address] Brain/Head without Contrast MR#: [id number] Acct: [id number] Name: CHELSEA MOODY Rep #: [id number] : 1940 F 83 From: Francisca Chapman MD PCP: Dr. Kurt Lieberman MD Status: R EG ER Study:Brain/Head without Contrast Date of Exa m: 08/31/24 Exam# [id number] Ordering Dr: Anna Ramírez DO PROCEDURE: BRAIN/HEAD WITHOUT CONTRAST 08/31/2024 REASON FOR EXAM: DIZZINESS, ELEVATED BP TECHNIQUE: Head CT without intravenous contrast. Coronal and Sagittal reconstruction serieswere provided. One or more dose reduction techniques were used (e.g., Automated exposure control, adjustment of the mA and/or kV according to patient size, use of iterative reconstruction technique. COMPARISON: None FINDINGS: No acute intracranial hemorrhage, mass, mass effect, midline shift or pathologicextra-axial fluid collection. Mild parenchymal atrophy with commensurate increase in CSF containing spaces. Patchy white matter hypodensities, patient demographics favor chronic microvascular ischemic changes. Paranasal sinuses and mastoid air cells are clear. The calvarium is grossly intact. CT/Brain/Head without Contrast IMPRESSION: No acute intracranial abnormality. Chronic microvascular ischemia and involutional changes. Reading Location: [facility] CC: Dr. Kurt Lieberman MD; DO Tahir Villarreal Recycle Worker: Signed [facility]04-08-2025 Discharge summary Author Murphy Ramírez [facility] Note Date/Time August 31, 2024 11:1 1pm [facility] Medical Records Department [address] [place] [address] Emergency Department Summary 08/31/24 MR#: [id number] Acct: [id number] Name: CHELSEA MOODY Rep #:[id number] : 1940 83 From: Murphy Bobo PCP: Dr. Kurt Lieberman MD Status:R EG ER Location: ED HPI History of Present Illness Chief Complaint: Dizziness [facility] Medical History (Updated 08/31/24 @ 20:30 by Annika Melton) GERD (gastroesophageal reflux disease) Hypertension Diabetes Home Medications ?Medication ?Instructions ?Recorded ?Last Taken ?Type insulin glargine 100 unit/mL (3 8 unit subcut QHS 01/17 Unknown History mL) subcutaneous pen (Lantus Solostar U-100 Insulin) metoprolol succinate 50 mg 100 mg PO DAILY 08/31/24 Un known History tablet,extended release 24 hr Allergy/AdvReac Type Severity Reaction Status Date / Time No Known Allergies Allergy Verified 08/31/24 19:32 Social History Smoking Status: Never smoker EXAM Physical Exam Const Vital Signs: 08/31/24 19:27 08/31/24 20:55 08/31/24 21:27 Temperature 97.8 F Temperature Source Oral Pulse Rate 66 65 Respiratory Rate 16 Blood Pressure 224/66 H 202/70 H Blood Pressure Mean 118 114 Pulse Ox 98 97 Oxygen Delivery Method Room Air Room Air 08/31/24 22:11 08/31/24 22:20 08/31/24 22:31 Temperature Temperature Source Pulse Rate 59 L 68 80 Respiratory Rate 18 18 15 Blood Pressure 270/51 H 266/71 H 168/151 H Blood Pressure Mean 124 136 156 Pulse Ox 97 99 97 Oxygen Delivery Method Room Air 08/31/24 22:33 Temperature Temperature Source Pulse Rate Respiratory Rate Blood Pressure 187/78 H Blood Pressure Mean 114 Pulse Ox Oxygen Delivery Method [facility] MDM MDM Narrative Medical decision making narrative: HISTORY OF PRESENT ILLNESS: Chief complaint: Dizziness 83-year-old female history of diabetes and hypertension presents with dizziness. Also lightheaded/dizzy and diffusely weak. Notes this began earlier today. Nofalls or trauma. No chest pain. No shortness of breath. No palpitations. No focal weakness, slurred speech, facial drooping, incoordination. She felt she has not passed out. REVIEW OF SYSTEMS: Pertinent positives: Dizziness Pertinent negatives: Chest pain, shortness of breath, palpitation PHYSICAL EXAM: Nursing triage notes reviewed, Vital signs reviewed Constitutional: please see mdm HENT: MMM Eyes: Pupils equal round and reactive to light, Extraocular muscles intact Neck: No stridor, no JVD, full neck ROM Lungs: Clear to auscultation, No wheezing or rales. No increased work of breathing, no conversational dyspnea, no accessory muscle use, no nasal flaring. No respiratory distress noted Heart: Regular rate and rhythm, No murmurs, No rubs and No gallops, 2+ distal pulses (radial, femoral, posterior tibial) in all extremities Abdomen: Soft, there is no tenderness, rigidity, rebound or guarding, no obviousperitoneal signs, no palpable pulsatile abdominal masses, no auscultated abdominal bruit : No CVAT Extremities: No edema Neuro: Alert and oriented x3, neuro exam at baseline, cranial nerves II through XII are intact. No pain with extraocular muscle movement. There is negative test of skew. 5 of 5 strength in upper and lower extremities in flexion extension. Intact sensation to light touch in upper and lower extremity dermatomes. No truncal or extremity ataxia. No dysdiadochokinesia. 2+ reflexes in upper and lower extremities. No meningeal signs. Negative Babinski. NIH of 0. Skin: No rash or lesions noted MEDICAL DECISION MAKING: Chief Complaint: please see HPI External records reviewed: Reviewed prior imaging studies Factors affecting care: Hypertension, type 2 diabetes Social determinants of health: none History obtained from others: none Consults: none [facility] Narrative: Patient was initially hypertensive blood pressure 224/66 otherwise afebrile and nontoxic-appearing. Initial exam without focal neurologic deficits. No focal cardiopulmonary abnormalities I considered the following differential diagnosis: Endorgan damage of elevated blood pressure, ICH, ACS, arrhythmia, anemia, kidney dysfunction, CVA Patient's blood pressure continued to elevate with systolics as high as 266 so she was given 20 mg IV hydralazine given heart rate was initially in the 60s. After IV hydralazine patient blood pressure improved to 168 systolic. Patient noted she felt weak or different. Daughter noted some transient slurred speech which resolved upon my assessment. Repeat neurologic exam remained intact NIH was 0. ALL IMAGES (IF OBTAINED) HAVE BEEN PERSONALLY REVIEWED AND INTERPRETED BY MYSELF. EKG with normal sinus rhythm rate 64, normal axis, normal intervals, no STEMI CBC without leukocytosis, severe anemia, no thrombocytopenia. BMP without evidence of significant electrolyte abnormalities, no anion gap, no acute kidney injury. LFTs show no evidence of hepatobiliary pathology. High-sensitivity troponin is negative, no evidence of myocardial ischemia BNP within normal limit suggestive no heart failure CT scan without contrast showed no acute intracranial normality. The synthesis of the patient's history, physical exam, labs images suggest poorly controlled hypertension likely resulting in the patient's presentation. Decided to admit the patient given concern for poorly controlled blood pressure at home, symptomatic hypertension, hypertensive urgency as well as transient slurred speech and concern for TIA versus CVA. Discussed with hospitalist The patient and/or family, caregivers express understanding. The patient and/orfamily, caregivers agrees with the plan. Shared decision making: I will have a discussion with the patient and or visitors regarding risk/benefits of further testing or admission. They will be made aware of of the risk/benefits inherent in this decision they will be given the opportunity to voice understanding. Total critical care time today provided was at least 35 minutes. This excludes separately billable procedures. Critical care time (if documented) is secondary to the patient having high probability of clinically significant/life threatening deterioration in the patient's condition which required my urgent intervention. Impression: 1. Dizziness 2. Poorly controlled hypertension 3. Hypertensive Urgency Dispo: Admit This note was generated with [employer] dictation software. It may contain incorrectwords, spelling, and punctuation that were not noted in review of the chart prior to signing. Lab Data Labs: Laboratory Results - last 24 hr 08/31/24 21:00 WBC 11.0 RBC 4.27 Hgb 13.1 Hct 38.5 MCV 90.2 MCH 30.7 MCHC 34.0 RDW Std Deviation 47.4 H RDW Coeff of Óscar 14.3 Plt Count 296 MPV 10.7 Immature Gran % (Auto) 0.500 Neut % (Auto) 61.5 Lymph % (Auto) 24.9 [place] % (Auto) 9.1 Eos % (Auto) 3.2 Baso % (Auto) 0.8 Absolute Neuts (auto) 6.8 Absolute Lymphs (auto) 2.74 Nucleated RBC % 0 Sodium 136 Potassium 4.2 Chloride 103 Carbon Dioxide 20.7 L Anion Gap 12 BUN 19 Creatinine 0.99 Estim Creat Clear Calc 39.57 L Est GFR (MDRD) Non-Af 57 L BUN/Creatinine Ratio 18.8 Glucose 155 H Calcium 9.1 Total Bilirubin 0.26 AST 21 ALT 26 Alkaline Phosphatase 123 H Troponin T High Sens 12 NT pro BNP II 245 Total Protein 6.6 Albumin 3.8 Globulin 2.7 Albumin/Globulin Ratio 1.4 Radiography Diagnostic Testing: Clinical Impression(s) from Imaging Studies Brain CT 08/31/24 20:46 IMPRESSION: No acute intracranial abnormality. Chronic microvascular ischemia and involutional changes. Reading Location: [facility] Discharge Plan Triage Chief Complaint: Dizziness ED Provider: Murphy Ramírez Dx/Rx/DC Orders Prescriptions: No Action metoprolol succinate 50 mg tablet extended release 24 hr 100 mg PO DAILY insulin glargine [Lantus Solostar U-100 Insulin] 100 unit/mL (3 mL) insulin pen 8 unit subcut QHS Primary Care Provider: Kurt Lieberman Referrals: Kurt Lieberman MD [Primary Care Provider] - Print Language: Haitian What to do if you have Problems For any increased pain, shortness of breath, bleeding, nausea or vomiting, chestpain, or any unexpected problems, contact your Primary Care Provider. Call [facility] ([phone]) or report to the closest Emergency Room. Call 911 if necessary. 08/31/24 2311 <Electronically signed by Murphy Ramírez DO> Cosigner Signature (if applicable): CC: Dr. Kurt Lieberman MD ~ Signed [facility] Work Phone: 1(424) 753-967406-28-2024 NoteHNO ID: [id number] Author: JOY GUDINO APRN.ASSOCIATE PROFESSOR OF ENGINEERING Service: ? Author Type: Nurse Practitioner Type: Progress Notes Filed: 11/21/2023 10:02 Note Text: FOLLOW UP VISIT NAME: Chelsea Moody [facility] NO[facility] [id number] DATE OF SERVICE: 11/21/2023 : 1940 REFERRING PHYSICIAN: Kurt Lieberman MD Chelsea is a patient I am following for Dr. Acosta after he removed a skin lesion on 11/14/2023 on the face above her upper lip on the right side. Pathology returned as FINAL DIAGNOSIS A. Skin, right upper lip, excision: - Invasive well-differentiated squamous cell carcinoma, see comment. Diagnosis Comment A. The lesion appears narrowly excised within the plans of sections available for examination. VITALS: There were no vitals taken for this visit. On examination, the sutures were removed by nursing and Dermabond was placed. The skin is healing nicely, the incision is approximated, there is no redness, swelling or drainage. Assessment IMPRESSION: Squamous cell carcinoma of face PLAN: If the patient notes any problems or signs of infection or reoccurrence of the lesion, the patient should contact me immediately. Diagnoses: (C44.320) Squamous cell carcinoma of face (primary encounter diagnosis) (K13.0) Lip lesion Return to Clinic: The patient is instructed to follow-up with Dr. Acosta in 6 months or sooner if needed. Joy Gudino APRN.CNPM[facility]06[facility] History of Present illness Narrative* Joy Gudino APRN.CNP - 11/21/2023 9:54 AM EDT FOLLOW UP VISIT NAME: Chelsea Moody [facility] NO.: [id number] DATE OF SERVICE: 11/21/2023 : 1940 REFERRING PHYSICIAN: Kurt Lieberman MD Chelsea is a patient I am following for Dr. Acosta after he removed a skin lesion on 11/14/2023 on the face above her upper lip on the right side. Pathology returned as FINAL DIAGNOSIS A. Skin, right upper lip, excision: - Invasive well-differentiated squamous cell carcinoma, see comment. Diagnosis Comment A. The lesion appears narrowly excised within the plans of sections available for examination. VITALS: There were no vitals taken for this visit. On examination, the sutures were removed by nursing and Dermabond was placed. The skin is healing nicely, the incision is approximated, there is no redness, swelling or drainage. Assessment IMPRESSION: Squamous cell carcinoma of face PLAN: If the patient notes any problems or signs of infection or reoccurrence of the lesion, the patient should contact me immediately. Diagnoses: (C44.320) Squamous cell carcinoma of face (primary encounter diagnosis) (K13.0) Lip lesion Return to Clinic: The patient is instructed to follow-up with Dr. Acosta in 6 months or sooner if needed. Joy Gudino APRN.AVIVA [facility] Nurse Note* Kaylin Dunham LPN - 11/21/2023 9:46 AM EDT Patient presented for suture removal of lesion of upper right side of lip. Patient has no complaints. The wound is cleansed, sutures removed, and dermabond placed. Assessed wound no redness, swelling, tenderness, foul odor present. Advised patient to not touch glue for at least 10 minutes, allow dermabond to stay in place and do not pick off. Patient verbalized understanding. Patient tolerated well. Pathology reviewed and advised by Joy Gudino NP. Kaylin Dunham LPN November 21, 2023 9:50 AM [facility]06-28-2024 Nurse Note* Kaylin Dunham LPN - 11/21/2023 9:46 AM EDT Patient presented for suture removal of lesion of upper right side of lip. Patient has no complaints. The wound is cleansed, sutures removed, and dermabond placed. Assessed wound no redness, swelling, tenderness, foul odor present. Advised patient to not touch glue for at least 10 minutes, allow dermabond to stay in place and do not pick off. Patient verbalized understanding. Patient tolerated well. Pathology reviewed and advised by Joy Gudino NP. Kaylin Dunham LPN November 21, 2023 9:50 AM documented in this encounterDay[facility]06-21-2024 NoteHNO ID: [id number] Author: GIL ACOSTA MD Service: ? Author Type: Physician Type: Progress Notes Filed: 11/28/2023 11:43 Note Text: HISTORY AND PHYSICAL Chelsea Moody 1940 REFERRING PHYSICIAN: Self CHIEF COMPLAINT: skin lesion HPI: The patient is a 82 year old female. She is here with her who is scheduling hernia repair. She was noted to have an exophytic lesion on her upper right lip worrisome for a basal cell carcinoma. She was willing to have this excised today. She has noticed this for at least the last few months. Her daughter Barry is a nurse who is with her who wished her to be evaluated for this to have it removed. SIGNIFICANT MEDICAL PROBLEMS: PAST MEDICAL HISTORY Diagnosis Date Diabetes mellitus (HCC) Essential hypertension Hypercholesterolemia OPERATIONS: PAST SURGICAL HISTORY Procedure Laterality Date LAPAROSCOPIC CHOLECYSTECTOMY TOTAL ABDOM HYSTERECTOMY CURRENT MEDICATIONS: Current Outpatient Medications Medication Sig Dispense Refill ONETOUCH VERIO TEST STRIPS test strip two times a day. TEST BLOOD SUGAR glimepiride (AMARYL) 2 mg tablet take 1 (one) tablet by mouth two times per day metoprolol succinate ER (TOPROL XL) 25 mg 24 hr tablet Take 1 tablet by mouth every afternoon. omeprazole (PRILOSEC) 40 mg capsule Take 1 capsule by mouth every afternoon. pioglitazone (ACTOS) 15 mg tablet Take 1 tablet by mouth every afternoon. nystatin (MYCOSTATIN) 100,000 unit/mL suspension Take 5mL by mouth every 4 hours until symptoms improve. (Patient not taking: Reported on 11/14/2023) No current facility-administered medications for this visit. ALLERGIES: Patient has no allergy information on record. PERSONAL HISTORY: Social History Tobacco Use Smoking status: Never Smokeless tobacco: Never Vaping Use Vaping Use: Never used Substance Use Topics Alcohol use: Yes Drug use: Never FAMILY HISTORY: History reviewed. No pertinent family history. REVIEW OF SYMPTOMS: The review of systems data was entered by the nurse and reviewed by wy Nursing Notes: Olive Damian RN 11/14/2023 3:30 PM Signed REVIEW OF SYSTEMS: General: The patient denies fatigue, NOTES weight loss, NOTES weight gain, denies feeling hot, and denies feelings of cold. Eyes: The patient denies glaucoma, NOTES eye injury/surgery, wears glasses or contacts. Ear/Nose/Throat: The patient denies allergies, denies hayfever, denies ear infections, and denies bloody noses. Cardiovascular: The patient denies chest pain, denies heart disease, NOTES high blood pressure,denies cardiac stent, denies prior heart attack, denies irregular heart beat, NOTES high cholesterol, denies poor circulation, denies heart failure, other cardiac issues, denies claudication, denies cold feet, denies peripheral arterial stent. Respiratory: The patient denies tuberculosis, denies pneumonia, denies frequent cough, denies pulmonary embolism, NOTES shortness of breath, and denies coughing up blood. Gastrointestinal: The patient denies difficulty swallowing, NOTES acid reflux, denies ulcers, denies vomiting, denies jaundice/hepatitis, denies gallbladder problems, denies black or tarry stools, denies hemorrhoids, denies bleeding from rectum, denies diverticulitis, denies constipation, denies diarrhea, denies loss of stool control, and denies hernias. Kidney/Bladder: The patient denies kidney stones, denies urine infections, and denies bloody urine. Skin: The patient denies a history of skin cancer, denies bleeding/changing moles, and denies a history of skin rash. Neurologic: The patient denies a history of epilepsy/convulsions, denies headaches, denies head/spinal injuries, and denies stroke/TIA. Psychiatric: The patient denies psychiatric medications, denies depression, and denies voices, denies substance abuse. Endocrine: The patient denies thyroid disorders, NOTES diabetes, and denies hormonal problems. Hematologic: The patient denies a history of bruising, denies bleeding, and denies anemia, denies blood clots. Infections: The patient denies a history of measles and mumps, denies rheumatic fever, and denies sexually transmitted diseases. Musculoskeletal: The patient denies back pain/injury, denies back problems, denies sciatica, denies knee/foot trouble, denies arthritis, or denies gout. When was patient's last Mammogram screening? Last Colonoscopy: Olive Damian RN PHYSICAL EXAMINATION: General: The patient is 82 year old female, well nourished, well hydrated in no acute distress. The patient is oriented to time, place, and person. VITALS: Blood pressure 150/82. There is no height or weight on file to calculate BMI. HEENT: Normal cephalic, ataumatic, pupils are equally round, sclera are anicteric, mucous membranes are moist, oropharynx is clear. Neck has no masses, asymmetry or lymphadenopathy. Thyroid is unremarkable. Upper right lip-just below the (more content not included)...[facility]06-21[facility]24 History of Present illness Narrative* Gil Acosta MD - 11/14/2023 6:16 PM EDT HISTORY AND PHYSICAL Chelsea Moody 1940 REFERRING PHYSICIAN: Self CHIEF COMPLAINT: skin lesion HPI: The patient is a 82 year old female. She is here with her who is scheduling hernia repair. She was noted to have an exophytic lesion on her upper right lip worrisome for a basal cell carcinoma. She was willing to have this excised today. She has noticed this for at least the last few months. Her daughter Barry is a nurse who is with her who wished her to be evaluated for this to have it removed. SIGNIFICANT MEDICAL PROBLEMS: PAST MEDICAL HISTORY Diagnosis Date Diabetes mellitus (HCC) Essential hypertension Hypercholesterolemia OPERATIONS: PAST SURGICAL HISTORY Procedure Laterality Date LAPAROSCOPIC CHOLECYSTECTOMY TOTAL ABDOM HYSTERECTOMY CURRENT MEDICATIONS: Current Outpatient Medications Medication Sig Dispense Refill ONETOUCH VERIO TEST STRIPS test strip two times a day. TEST BLOOD SUGAR glimepiride (AMARYL) 2 mg tablet take 1 (one) tablet by mouth two times per day metoprolol succinate ER (TOPROL XL) 25 mg 24 hr tablet Take 1 tablet by mouth every afternoon. omeprazole (PRILOSEC) 40 mg capsule Take 1 capsule by mouth every afternoon. pioglitazone (ACTOS) 15 mg tablet Take 1 tablet by mouth every afternoon. nystatin (MYCOSTATIN) 100,000 unit/mL suspension Take 5mL by mouth every 4 hours until symptoms improve. (Patient not taking: Reported on 11/14/2023) No current facility-administered medications for this visit. ALLERGIES: Patient has no allergy information on record. PERSONAL HISTORY: Social History Tobacco Use Smoking status: Never Smokeless tobacco: Never Vaping Use Vaping Use: Never used Substance Use Topics Alcohol use: Yes Drug use: Never FAMILY HISTORY: History reviewed. No pertinent family history. REVIEW OF SYMPTOMS: The review of systems data was entered by the nurse and reviewed by wy Nursing Notes: Olive Damian RN 11/14/2023 3:30 PM Signed REVIEW OF SYSTEMS: General: The patient denies fatigue, NOTES weight loss, NOTES weight gain, denies feeling hot, and denies feelings of cold. Eyes: The patient denies glaucoma, NOTES eye injury/surgery, wears glasses or contacts. Ear/Nose/Throat: The patient denies allergies, denies hayfever, denies ear infections, and denies bloody noses. Cardiovascular: The patient denies chest pain, denies heart disease, NOTES high blood pressure,denies cardiac stent, denies prior heart attack, denies irregular heart beat, NOTES high cholesterol, denies poor circulation, denies heart failure, other cardiac issues, denies claudication, denies cold feet, denies peripheral arterial stent. Respiratory: The patient denies tuberculosis, denies pneumonia, denies frequent cough, denies pulmonary embolism, NOTES shortness of breath, and denies coughing up blood. Gastrointestinal: The patient denies difficulty swallowing, NOTES acid reflux, denies ulcers, denies vomiting, denies jaundice/hepatitis, denies gallbladder problems, denies black or tarry stools, denies hemorrhoids, denies bleeding from rectum, denies diverticulitis, denies constipation, denies diarrhea, denies loss of stool control, and denies hernias. Kidney/Bladder: The patient denies kidney stones, denies urine infections, and denies bloody urine. Skin: The patient denies a history of skin cancer, denies bleeding/changing moles, and denies a history of skin rash. Neurologic: The patient denies a history of epilepsy/convulsions, denies headaches, denies head/spinal injuries, and denies stroke/TIA. Psychiatric: The patient denies psychiatric medications, denies depression, and denies voices, denies substance abuse. Endocrine: The patient denies thyroid disorders, NOTES diabetes, and denies hormonal problems. Hematologic: The patient denies a history of bruising, denies bleeding, and denies anemia, denies blood clots. Infections: The patient denies a history of measles and mumps, denies rheumatic fever, and denies sexually transmitted diseases. Musculoskeletal: The patient denies back pain/injury, denies back problems, denies sciatica, deniesknee/foot trouble, denies arthritis, or denies gout. When was patient's last Mammogram screening? Last Colonoscopy: Olive Damian RN PHYSICAL EXAMINATION: General: The patient is 82 year old female, well nourished, well hydrated in no acute distress. Thepatient is oriented to time, place, and person. VITALS: Blood pressure 150/82. There is no height or weight on file to calculate BMI. HEENT: Normal cephalic, ataumatic, pupils are equally round, sclera are anicteric, mucous membranesare moist, oropharynx is clear. Neck has no masses, asymmetry or lymphadenopathy. Thyroid is unremarkable. Upper right lip-just below the right nare-a 5 mm exophytic mass worrisome for basal cell carcinoma LABORATORY VALUES: As Noted RADIOLOGIC STUDIES: As Noted PROCEDURE: EXCISION OF SKIN LESION The risks, benefits and anticipated outcomes of the procedure, the risks and benefits of the alternatives to the procedure, and the roles and tasks of the personnel to be involved, were discussed with the patient, and the patient consents to the procedure and agrees to proceed. I verify that I personally obtained the patient's consent. The patient`s skin was prepped and draped in the usual fashion. A combination of Lidocaine and Marcaine was injected into the skin. An elliptical incision was made around the lesion and was removed in its entirety. The specimen measured 1.3 by 0.8 cm. This was sent to pathology. The skin was then closed with interrupted 5-0 nylon sutures. The patient tolerated the procedure well. Assessment IMPRESSION: STATUS POST EXCISION OF SKIN LESION - RIGHT UPPER LIP PLAN: Chelsea is instructed to remove the dressing in two days. If the dressing becomes soaked or had significant drainage, the dressing should be changed. If there is minor bleeding from this skin edge, the patient should hold pressure on the incision. If there is continued bleeding, the patient should contact our office immediately. The patient may may wash the wound with gentle soap and water after two days. The wound should not be immersed in a pool, bathtub, or even hot tub. Diagnoses: (K13.0) Lip lesion (primary encounter diagnosis) Return to Clinic: The patient is instructed to follow-up with my staff for suture removal in 1 week.. Gil Acosta MD Pathology returned as: FINAL DIAGNOSIS A. Skin, right upper lip, excision: - Invasive well-differentiated squamous cell carcinoma, see comment. Diagnosis Comment A. The lesion appears narrowly excised within the plans of sections available for examination. Gross Description I am comfortable with follow up but feel it was completely excised * Olive Damian RN - 11/14/2023 3:34 PM EDT UNIVERSAL PROTOCOL / SAFETY CHECKLIST Procedure to be Performed: Excision of right upper lip/face skin lesion Sign In: A Moment of CARE was completed. Personnel directly involved with the procedure wore the appropriate PPE (Personal Protective Equipment). No special equipment needed. Patient/Surrogate Stated/Verified: PATIENT VERIFIED(optional for EMERGENT procedures): Patient name, Date of , Relevant allergies, and The intended procedure Time Out Communication: Intended patient and procedure match the source documents. Consent documented and matches the intended procedure. No relevant labs, photos, and/or imaging studies were applicable for review. Correct side/site marked and visible. Medications required for procedure verified. No fire risk assessment and interventions applicable. No implant(s) inserted. Sign Out: SIGN OUT (optional for EMERGENT procedures): All specimen containers correctly labeled. All instruments, equipment, possible retained foreign bodies accounted for. Post-procedure follow-up management communicated and Plan of Care Visit completed when applicable. Olive Damian RN [facility] Inst[facility]* Patient Instructions* Olive Damian RN - 11/14/2023 4:01 PM EDT The following instructions are important for you related to your office visit today with the [facility]. Instructions After SKIN EXCISION-SUTURES You can remove the dressing in two days. If the dressing becomes soaked or had significant drainage, the dressing should be changed. If there is minor bleeding from this skin edge, you should hold pressure on the incision until the bleeding stops. If there is continued bleeding, you should contact our office immediately. You do not need to leave a dressing on the wound after two days. If the wound shows signs of redness, inflammation, or purulent drainage, you should contact our office immediately. You should keep the wound dry for the first two days. After that time, you may wash the wound with gentle soap and water. The wound should not be immersed in a pool, bathtub, or even hot tub. We prefer to check the incision and remove the stitches in our office when ready. Please make an appointment to return to our office in 1 week. Please do not remove the stitches yourself without approval from our office. Pt to return for Nurse appointment in 1 week for Suture removal and dermabond of wound. If you note any additional difficulties, questions, or concerns, you should contact our office immediately @ [phone] and ask to be transferred to the General Surgery department. [facility] NoteHNO ID: [id number] Author: OLIVE DAMIAN RN Service: ? Author Type: Registered Nurse Type: Progress Notes Filed: 11/14/2023 16:40 Note Text: UNIVERSAL PROTOCOL / SAFETY CHECKLIST Procedure to be Performed: Excision of right upper lip/face skin lesion Sign In: A Moment of CARE was completed. Personnel directly involved with the procedure wore the appropriate PPE (Personal Protective Equipment). No special equipment needed. Patient/Surrogate Stated/Verified: PATIENT VERIFIED(optional for EMERGENT procedures): Patient name, Date of , Relevant allergies, and The intended procedure Time Out Communication: Intended patient and procedure match the source documents. Consent documented and matches the intended procedure. No relevant labs, photos, and/or imaging studies were applicable for review. Correct side/site marked and visible. Medications required for procedure verified. No fire risk assessment and interventions applicable. No implant(s) inserted. Sign Out: SIGN OUT (optional for EMERGENT procedures): All specimen containers correctly labeled. All instruments, equipment, possible retained foreign bodies accounted for. Post-procedure follow-up management communicated and Plan of Care Visit completed when applicable. [facility] Nurse Note* Olive Damian RN - 11/14/2023 3:29 PM EDT REVIEW OF SYSTEMS: General: The patient denies fatigue, NOTES weight loss, NOTES weight gain, denies feeling hot, and denies feelings of cold. Eyes: The patient denies glaucoma, NOTES eye injury/surgery, wears glasses or contacts. Ear/Nose/Throat: The patient denies allergies, denies hayfever, denies ear infections, and denies bloody noses. Cardiovascular: The patient denies chest pain, denies heart disease, NOTES high blood pressure,denies cardiac stent, denies prior heart attack, denies irregular heart beat, NOTES high cholesterol, denies poor circulation, denies heart failure, other cardiac issues, denies claudication, denies cold feet, denies peripheral arterial stent. Respiratory: The patient denies tuberculosis, denies pneumonia, denies frequent cough, denies pulmonary embolism, NOTES shortness of breath, and denies coughing up blood. Gastrointestinal: The patient denies difficulty swallowing, NOTES acid reflux, denies ulcers, denies vomiting, denies jaundice/hepatitis, denies gallbladder problems, denies black or tarry stools, denies hemorrhoids, denies bleeding from rectum, denies diverticulitis, denies constipation, denies diarrhea, denies loss of stool control, and denies hernias. Kidney/Bladder: The patient denies kidney stones, denies urine infections, and denies bloody urine. Skin: The patient denies a history of skin cancer, denies bleeding/changing moles, and denies a history of skin rash. Neurologic: The patient denies a history of epilepsy/convulsions, denies headaches, denies head/spinal injuries, and denies stroke/TIA. Psychiatric: The patient denies psychiatric medications, denies depression, and denies voices, denies substance abuse. Endocrine: The patient denies thyroid disorders, NOTES diabetes, and denies hormonal problems. Hematologic: The patient denies a history of bruising, denies bleeding, and denies anemia, denies blood clots. Infections: The patient denies a history of measles and mumps, denies rheumatic fever, and denies sexually transmitted diseases. Musculoskeletal: The patient denies back pain/injury, denies back problems, denies sciatica, deniesknee/foot trouble, denies arthritis, or denies gout. When was patient's last Mammogram screening? Last Colonoscopy: Olive Damian RN [facility]06-[facility] Nurse Note* Olive Damian RN - 11/14/2023 3:29 PM EDT REVIEW OF SYSTEMS: General: The patient denies fatigue, NOTES weight loss, NOTES weight gain, denies feeling hot, and denies feelings of cold. Eyes: The patient denies glaucoma, NOTES eye injury/surgery, wears glasses or contacts. Ear/Nose/Throat: The patient denies allergies, denies hayfever, denies ear infections, and denies bloody noses. Cardiovascular: The patient denies chest pain, denies heart disease, NOTES high blood pressure,denies cardiac stent, denies prior heart attack, denies irregular heart beat, NOTES high cholesterol, denies poor circulation, denies heart failure, other cardiac issues, denies claudication, denies cold feet, denies peripheral arterial stent. Respiratory: The patient denies tuberculosis, denies pneumonia, denies frequent cough, denies pulmonary embolism, NOTES shortness of breath, and denies coughing up blood. Gastrointestinal: The patient denies difficulty swallowing, NOTES acid reflux, denies ulcers, denies vomiting, denies jaundice/hepatitis, denies gallbladder problems, denies black or tarry stools, denies hemorrhoids, denies bleeding from rectum, denies diverticulitis, denies constipation, denies diarrhea, denies loss of stool control, and denies hernias. Kidney/Bladder: The patient denies kidney stones, denies urine infections, and denies bloody urine. Skin: The patient denies a history of skin cancer, denies bleeding/changing moles, and denies a history of skin rash. Neurologic: The patient denies a history of epilepsy/convulsions, denies headaches, denies head/spinal injuries, and denies stroke/TIA. Psychiatric: The patient denies psychiatric medications, denies depression, and denies voices, denies substance abuse. Endocrine: The patient denies thyroid disorders, NOTES diabetes, and denies hormonal problems. Hematologic: The patient denies a history of bruising, denies bleeding, and denies anemia, denies blood clots. Infections: The patient denies a history of measles and mumps, denies rheumatic fever, and denies sexually transmitted diseases. Musculoskeletal: The patient denies back pain/injury, denies back problems, denies sciatica, deniesknee/foot trouble, denies arthritis, or denies gout. When was patient's last Mammogram screening? Last Colonoscopy: Olive Damian RN [facility] Diagnosis Squamous cell carcinoma of face- Primary Squamous cell carcinoma of skin of other and unspecified parts of face Lip lesion Diseases of lips documented in this encounter [facility] note* Diagnosis Lip lesion- Primary Diseases of lips documented in this encounter [facility] note* Diagnosis Pain in both knees, unspecified chronicity- Primary documented in this encounter [facility] note* Diagnosis Onset Date Resolution Status Admit Date Diabetes mellitus, type 2 acute August 31, 2024 11:32pm Dizziness acute August 31 11:32pm Generalized weakness acute Apri l 2024 11:32pm Hypertensive emergency acute Ap ril 2024 11:32pm Obesity (BMI 30-39.9) acute Apr il 2024 11:32pm Poorly-controlled hypertension acute August 31, 2024 11:32pm Slurred speech acute August 31, 2024 11:32pm TIA on medication acute August 312024 11:32pm [facility] Work Phone: Evaluation note* Diagnosis Hospital discharge follow-up- Primary Other follow-up examination Hypertension, unspecified type Type 2 diabetes mellitus without complication, without long-term current use of insulin (HCC) Class 2 severe obesity with serious comorbidity and body mass index (BMI) of 35.0 to 35.9 in adult, unspecified obesity type (HCC) documented in this encounter [facility] note* Diagnosis Type 2 diabetes mellitus without complication, without long-term current use of insulin (HCC) documented in this encounter [facility] note* Diagnosis Type 2 diabetes mellitus without complication, without long-term current use of insulin (HCC) Essential (primary) hypertension Unspecified essential hypertension Tremor, unspecified Difficulty in walking, not elsewhere classified Screening for depression Encounter for screening examination for other mental health and behavioral disorders Cerebral infarction due to unspecified occlusion or stenosis of unspecified cerebral artery (HCC) documented in this encounter [facility] note* Diagnosis Gastroesophageal reflux disease without esophagitis- Primary Esophageal reflux documented in this encounter [facility] for referral (narrative)* Diagnostic Procedure Only (Routine) - Authorized Specialty Diagnoses / Procedures Referred By Leti t Referred To Contact XR IMAGING Diagnoses Pain in both knees, unspecified chronicity Procedures XR LEG FRONTAL HIP TO ANKLE MECHANICAL AXIS BONE LENGTH STUDIES Fabio Hernandez PA-C [address] [address] [place] [address] Referral ID Status Reason Start Date Expiration Date Visits Requested Visits Authorized [id number] Authorized Auto-Generat ed Referral 06/01/2024 07/01/2025 1 1 * Diagnostic Procedure Only (Routine) - Authorized Specialty Diagnoses / Procedures Referred By Contac t Referred To Contact XR IMAGING Diagnoses Pain in both knees, unspecified chronicity Procedures XR KNEE GENERAL 4V AP BOTH/PA BOTH/LAT/MERC BILATERAL RADIOLOGIC EXAM KNEE COMPLETE 4/MORE VIEWS Fabio Hernandez PA-C [address] [address] [place] [address] Referral ID Status Reason Start Date Expiration Date Visits Requested Visits Authorized [id number] Authorized Auto-Generat ed Referral 06/01/2024 07/01/2025 1 1 [facility])No reason for referral information availableWTrinity [facility] Work Phone: Summary Purpose Family History No Family History Records Found Relationship Condition Age at Onset Recorded Date/T cyndi Not Specified Diabetes mellitus Unknown Advance Directives No Advanced Directives Records Found Advance Directive Response Recorded Date/ Time Living Will Yes August 31, 2024 8:28pm Do you have a Healthcare Power of Traffic Superintendent? Yes August 31, 2024 8:28pm Name of Medical Power of Traffic Superintendent Daughter August 31, 2024 8:28pm Advance Directive Response Recorded Date/ Time Living Will Yes September 01, 2024 12:14am Do you have a Healthcare Power of Traffic Superintendent? Yes September 01, 2024 12:14am Name of Medical Power of Traffic Superintendent Daughter September 01, 2024 12:14am Advance Directive Response Recorded Date/ Time Living Will Yes September 01, 2024 12:14am Do you have a Healthcare Power of Traffic Superintendent? Yes September 01, 2024 12:14am Name of Medical Power of Traffic Superintendent Daughter September 01, 2024 12:14am Do you have a Healthcare Power of Traffic Superintendent? No October 05, 2024 12:00pm Advance Directive Response Recorded Date/ Time Living Will Yes September 01, 2024 12:14am Do you have a Healthcare Power of Traffic Superintendent? Yes September 01, 2024 12:14am Name of Medical Power of Traffic Superintendent Daughter September 01, 2024 12:14am Do you have a Healthcare Power of Traffic Superintendent? No October 05, 2024 12:00pm Do you have a Healthcare Power of Traffic Superintendent? Yes October 22, 2024 5:30pm Name of Medical Power of Traffic Superintendent daughter- barry October 22, 2024 5:30pm Advance Directive Response Recorded Date/ Time Living Will Yes September 01, 2024 12:14am Do you have a Healthcare Power of Traffic Superintendent? Yes September 01, 2024 12:14am Name of Medical Power of Traffic Superintendent Daughter September 01, 2024 12:14am Do you have a Healthcare Power of Traffic Superintendent? No October 05, 2024 12:00pm Do you have a Healthcare Power of Traffic Superintendent? Yes October 22, 2024 8:17pm Name of Medical Power of Traffic Superintendent Barry Holt October 22, 2024 8:17pm Chief Complaint and Reason for Visit Chief Complaint Admit Date HYPERTENSIVE EMERGENCY & TIA VS WATERSHE D CVA August 31, 2024 11:32pm Reason for Visit Admit Date Diabetes mellitus, type 2 August 31 11:32pm Dizziness August 31, 2024 11:3 2pm Generalized weakness August 31, 2024 11: 32pm Hypertensive emergency August 31, 2024 1 1:32pm Obesity (BMI 30-39.9) August 31, 2024 11 :32pm Poorly-controlled hypertension August 11:32pm Slurred speech August 31, 2024 11:3 2pm TIA on medication August 31, 2024 11:3 2pm Chief Complaint Admit Date HYPERTENSIVE EMERGENCY & TIA VS WATERSHE D CVA August 31, 2024 11:32pm HYPERTENSIVE EMERGENCY & TIA VS WATERS[place] D CVA September 01, 2024 3:48pm HYPERTENSIVE EMERGENCY & TIA VS WATERSHE D CVA September 02, 2024 5:18pm HYPERTENSIVE EMERGENCY & TIA VS WATERSHE D CVA September 03, 2024 12:10pm Reason for Visit Admit Date CVA (cerebral vascular accident) September 012024 3:48pm Diabetes mellitus, type 2 September 01 3:48pm Dizziness September 01, 2024 3:48 pm Generalized weakness September 01, 2024 3:4 8pm Hypertensive emergency September 01, 2024 3 :48pm Obesity (BMI 30-39.9) September 01, 2024 3: 48pm Poorly-controlled hypertension August 3:48pm Slurred speech September 01, 2024 3:48 pm Stenosis of right carotid artery September 012024 3:48pm TIA on medication September 01, 2024 3:48 pm Chief Complaint Admit Date HYPERTENSIVE EMERGENCY & TIA VS WATERS[place] D CVA August 31, 2024 11:32pm HYPERTENSIVE EMERGENCY & TIA VS [place] D CVA September 01, 2024 3:48pm HYPERTENSIVE EMERGENCY & TIA VS [place] D CVA September 02, 2024 5:18pm HYPERTENSIVE EMERGENCY & TIA VS WATERS[place] D CVA September 03, 2024 12:10pm [facility] hospital F/U September 17, 2024 10: 53am Carotidstent in Shipping Clerk, OR Staff, Eugene BAR October 05, 2024 7:25am Carotidstent in Shipping Clerk, OR Staff, Eugene BAR October 05, 2024 9:30am Carotidstent in Shipping Clerk, OR Staff, Eugene BAR October 06, 2024 12:57pm Reason for Visit Admit Date Poorly-controlled hypertension August 3:48pm Stenosis of right carotid artery September 012024 3:48pm Dizziness September 01, 2024 3:48 pm Generalized weakness September 01, 2024 3:4 8pm Hypertensive emergency September 01, 2024 3 :48pm Slurred speech September 01, 2024 3:48 pm CVA (cerebral vascular accident) September 012024 3:48pm Diabetes mellitus, type 2 September 01 3:48pm Obesity (BMI 30-39.9) September 01, 2024 3: 48pm TIA on medication September 01, 2024 3:48 pm Stenosis of right carotid artery August 252024 10:53am Chief Complaint Admit Date HYPERTENSIVE EMERGENCY & TIA VS WATERSHE D CVA August 31, 2024 11:32pm HYPERTENSIVE EMERGENCY & TIA VS [place] D CVA September 01, 2024 3:48pm HYPERTENSIVE EMERGENCY & TIA VS [place]ERS[place] D CVA September 02, 2024 5:18pm HYPERTENSIVE EMERGENCY & TIA VS WATERS[place] D CVA September 03, 2024 12:10pm [facility] F/U September 17, 2024 10: 53am Carotidstent in Shipping Clerk, OR Staff, Eugene BAR October 05, 2024 7:25am Carotidstent in Shipping Clerk, OR Staff, Eugene BAR October 05, 2024 9:30am Carotidstent in Shipping Clerk, OR Staff, Eugene BAR October 06, 2024 12:57pm Post TCAR 2-4 WK FU October 22, 2024 12:53 pm Reason for Visit Admit Date Poorly-controlled hypertension August 3:48pm Stenosis of right carotid artery September 012024 3:48pm Dizziness September 01, 2024 3:48 pm Generalized weakness September 01, 2024 3:4 8pm Hypertensive emergency September 01, 2024 3 :48pm Slurred speech September 01, 2024 3:48 pm CVA (cerebral vascular accident) September 012024 3:48pm Diabetes mellitus, type 2 September 01 3:48pm Obesity (BMI 30-39.9) September 01, 2024 3: 48pm TIA on medication September 01, 2024 3:48 pm Stenosis of right carotid artery August 252024 10:53am Carotid artery disease October 22, 2024 12 :53pm Stenosis of right carotid artery September 12:53pm Chief Complaint Admit Date HYPERTENSIVE EMERGENCY & TIA VS WATERSHE D CVA August 31, 2024 11:32pm HYPERTENSIVE EMERGENCY & TIA VS W[place]ERS[place] D CVA September 01, 2024 3:48pm HYPERTENSIVE EMERGENCY & TIA VS W[place]ERS[place] D CVA September 02, 2024 5:18pm HYPERTENSIVE EMERGENCY & TIA VS WATERS[place] D CVA September 03, 2024 12:10pm [facility] F/U September 17, 2024 10: 53am Carotidstent in Shipping Clerk, OR Staff, Eguene BAR October 05, 2024 7:25am Carotidstent in Shipping Clerk, OR Staff, Eugene BAR October 05, 2024 9:30am Carotidstent in Shipping Clerk, OR Staff, Eugene BAR October 06, 2024 12:57pm Post TCAR 2-4 WK FU October 22, 2024 12:53 pm S/P R TCAR, IMPAIRED GAG REFLEX/ INABILI TY TO SWAL October 22, 2024 2:53pm ACUTE HYPONATREMIA October 22, 2024 7:28p m Reason for Visit Admit Date Poorly-controlled hypertension August 3:48pm Stenosis of right carotid artery September 012024 3:48pm Dizziness September 01, 2024 3:48 pm Generalized weakness September 01, 2024 3:4 8pm Hypertensive emergency September 01, 2024 3 :48pm Slurred speech September 01, 2024 3:48 pm CVA (cerebral vascular accident) September 012024 3:48pm Diabetes mellitus, type 2 September 01 3:48pm Obesity (BMI 30-39.9) September 01, 2024 3: 48pm TIA on medication September 01, 2024 3:48 pm Stenosis of right carotid artery August 252024 10:53am Carotid artery disease October 22, 2024 12 :53pm Difficulty swallowing October 22, 2024 12: 53pm Stenosis of right carotid artery September 12:53pm Weakness October 22, 2024 12:53 pm Acute hyponatremia October 22, 2024 7:28p m Weakness October 22, 2024 7:28p m Chief Complaint Admit Date HYPERTENSIVE EMERGENCY & TIA VS WATERSHE D CVA August 31, 2024 11:32pm HYPERTENSIVE EMERGENCY & TIA VS [place]ERS[place] D CVA September 01, 2024 3:48pm HYPERTENSIVE EMERGENCY & TIA VS [place]ERS[place] D CVA September 02, 2024 5:18pm HYPERTENSIVE EMERGENCY & TIA VS WATERS[place] D CVA September 03, 2024 12:10pm [facility] hospital F/U September 17, 2024 10: 53am Carotidstent in Shipping Clerk, OR Staff, Eugene BAR October 05, 2024 7:25am Carotidstent in Shipping Clerk, OR Staff, Eugene BAR October 05, 2024 9:30am Carotidstent in Shipping Clerk, OR Staff, Eugene BAR October 06, 2024 12:57pm Post TCAR 2-4 WK FU October 22, 2024 12:53 pm S/P R TCAR, IMPAIRED GAG REFLEX/ INABILI TY TO SWAL October 22, 2024 2:53pm ACUTE HYPONATREMIA October 22, 2024 7:28p m ACUTE HYPONATREMIA October 22, 2024 8:11p m ACUTE HYPONATREMIA October 23, 2024 10:11 am ACUTE HYPONATREMIA October 24, 2024 2:35p m Additional Source Comments INFORMATION SOURCE (unrecogn ized section and content) DATE CREATED AUTHOR 06/23/2019 [facility] ([place]) DATE CREATED AUTHOR AUTHOR'S ORGANIZ ATION 09/02/2024 [facility] DATE CREATED AUTHOR AUTHOR'S ORGANIZ ATION 10/12/[address] [facility] DATE CREATED AUTHOR AUTHOR'S ORGANIZ ATION 10/29/2024 [facility] Source Comments (unrecognize d section and content) In the event this informatio n is protected by the Federal Confidentiality of Alcohol and Drug Abuse Patient Records regulations: The Federal rules restrict any use of the information to criminally investigate or prosecute any alcohol or drug abuse patient.[facility] the event this information is protected by the Federal Confidentiality of Alcohol and Drug Abuse Patient Records regulations: The Federal rules restrict any use of the information to criminally investigate or prosecute any alcohol or drug abuse patient.[facility] the event this information is protected by the Federal Confidentiality of Alcohol and Drug Abuse Patient Records regulations: The Federal rules restrict any use of the information to criminally investigate or prosecute any alcohol or drug abuse patient.[facility] the event this information is protected by the Federal Confidentiality of Alcohol and Drug Abuse Patient Records regulations: The Federal rules restrict any use of the information to criminally investigate or prosecute any alcohol or drug abuse patient.[facility] the event this information is protected by the Federal Confidentiality of Alcohol and Drug Abuse Patient Records regulations: The Federal rules restrict any use of the information to criminally investigate or prosecute any alcohol or drug abuse patient.[facility] the event this information is protected by the Federal Confidentiality of Alcohol and Drug Abuse Patient Records regulations: The Federal rules restrict any use of the information to criminally investigate or prosecute any alcohol or drug abuse patient.[facility] the event this information is protected by the Federal Confidentiality of Alcohol and Drug Abuse Patient Records regulations: The Federal rules restrict any use of the information to criminally investigate or prosecute any alcohol or drug abuse patient.[facility] the event this information is protected by the Federal Confidentiality of Alcohol and Drug Abuse Patient Records regulations: The Federal rules restrict any use of the information to criminally investigate or prosecute any alcohol or drug abuse patient.[facility] the event this information is protected by the Federal Confidentiality of Alcohol and Drug Abuse Patient Records regulations: The Federal rules restrict any use of the information to criminally investigate or prosecute any alcohol or drug abuse patient.[facility] Care Teams (unrecognized sec tion and content) Continuing Education Instructor Relationship Specialty Start Date End Date Kurt Lieberman MD [address] [phone] PCP - General Family Medicine 11/14/23 Continuing Education Instructor Relationship Specialty Start Date End Date Kurt Lieberman MD [address] [phone] PCP - General Family Medicine 11/14/23 Continuing Education Instructor Relationship Specialty Start Date End Date Kurt Lieberman MD [address] [facility] [address] [place] [phone] PCP - General Family Medicine 11/14/23 Team Status: Active Member Role Status Dates Dr. Kurt Lieberman MD Primary Care Provider Active Team Status: Inactive Member Role Status Dates Dr. Kurt Lieberman MD Primary Care Provider Active Start: May 20, 2024 End: May 20, 2024 Dr. Kurt Lieberman MD Attending Provider Active Start: May 20, 2024 End: May 20, 2024 Dr. Kurt Lieberman MD Referring Provider Active Start: May 20, 2024 End: May 20, 2024 Team Status: Active Member Role Status Dates Dr. Kurt Lieberman MD Primary Care Provider Active Start: August 31, 2024 Dr. Murphy Ramírez DO Emergency Provider Active Start: August 31, 2024 Dr. Severiano Ibarra DO Admit Provider Active Start: August 31, 2024 Dr. Severiano Ibarra DO Attending Provider Active Start: August 31, 2024 Team Status: Active Member Role Status Dates Dr. Kurt Lieberman MD Primary Care Provider Active Start: August 31, 2024 Dr. Murphy Ramírez DO Emergency Provider Active Start: August 31, 2024 Dr. Severiano Ibarra DO Admit Provider Active Start: August 31, 2024 Dr. Severiano Ibarra DO Attending Provider Active Start: August 31, 2024 Dr. Severiano Ibarra DO Other Provider Active Start: August 31, 2024 Jason Walker MD Other Provider Active Start: 2024 Dr. Roberto Quiñones MD Other Provider Active Start: August 31, 2024 Estela Guzman MD Other Provider Active Start : August 31, 2024 Dr. Sonali yN DO Other Provider Active St art: August 31, 2024 Dr. Monik Barker MD Other Provider Active Start: August 31, 2024 Dr. Ronald Christianson MD Other Provider Active Sta rt: August 31, 2024 Dr. Candis Noel MD Other Provider Active Start : August 31, 2024 Dr. Luis Crooks MD Other Provider Active Start: August 31, 2024 Dr. Twin Hanna MD Other Provider Active Start : August 31, 2024 Dr. Ralph Monet MD Other Provider Active Sta rt: August 31, 2024 Sherry Priest MD Other Provider Active Start : August 31, 2024 Dr. Scott Fernandez MD Other Provider Active St art: August 31, 2024 Dr. Jovita Gibson MD Other Provider Active Start : August 31, 2024 Dr. Giovanni Norris MD Other Provider Active Sta rt: August 31, 2024 Dr. Magno Sheppard MD Other Provider Active Start: August 31, 2024 Dr. Erik Pagan MD Other Provider Active St art: August 31, 2024 Dr. Neil Loredo MD Other Provider Active Star t: August 31, 2024 Dr. Lux Driver MD Other Provider Active St art: August 31, 2024 Dr. Shannen Wise MD Other Provider Active Start: August 31, 2024 Armen Ascencio MD Other Provider Active Start: August 31, 2024 Team Status: Active Member Role Status Dates Dr. Kurt Lieberman MD Primary Care Provider Active Start: September 01, 2024 Dr. Ugo Rogel MD Attending Provider Active S tart: September 01, 2024 Team Status: Active Member Role Status Dates Dr. Kurt Liebermna MD Primary Care Provider Active Start: September 01, 2024 Dr. Angel Shepard MD Attending Provider Active S tart: September 01, 2024 Team Status: Inactive Member Role Status Dates Dr. Kurt Lieberman MD Primary Care Provider Active Start: September 01, 2024 End: September 03, 2024 Dr. Murphy Ramírez DO Emergency Provider Active Start: September 01, 2024 End: September 03, 2024 Dr. Severiano Ibarra DO Admit Provider Active Start: September 01, 2024 End: September 03, 2024 Dr. Severiano Ibarra DO Other Provider Active Start: September 01, 2024 End: September 03, 2024 Jason Walker MD Other Provider Active Start: 2024 End: September 03, 2024 Dr. Roberto Quiñones MD Other Provider Active Start: September 01, 2024 End: September 03, 2024 Estela Guzman MD Other Provider Active Start : September 01, 2024 End: September 03, 2024 Dr. Sonali Ny DO Other Provider Active St art: September 01, 2024 End: September 03, 2024 Dr. Monik Barker MD Other Provider Active Start: September 01, 2024 End: September 03, 2024 Dr. Ronald Christianson MD Other Provider Active Sta rt: September 01, 2024 End: September 03, 2024 Dr. Candis Noel MD Other Provider Active Start : September 01, 2024 End: September 03, 2024 Dr. Luis Crooks MD Other Provider Active Start: September 01, 2024 End: September 03, 2024 Dr. Twin Hanna MD Other Provider Active Start : September 01, 2024 End: September 03, 2024 Dr. Rlaph Monet MD Other Provider Active Sta rt: September 01, 2024 End: September 03, 2024 Sherry Priest MD Other Provider Active Start : September 01, 2024 End: September 03, 2024 Dr. Scott Fernandez MD Other Provider Active St art: September 01, 2024 End: September 03, 2024 Dr. Jovita Gibsno MD Other Provider Active Start : September 01, 2024 End: September 03, 2024 Dr. Giovanni Norris MD Other Provider Active Sta rt: September 01, 2024 End: September 03, 2024 Dr. Magno Sheppard MD Other Provider Active Start: September 01, 2024 End: September 03, 2024 Dr. Erik Pagan MD Other Provider Active St art: September 01, 2024 End: September 03, 2024 Dr. Neil Loredo MD Other Provider Active Star t: September 01, 2024 End: September 03, 2024 Dr. Lux Driver MD Other Provider Active St art: September 01, 2024 End: September 03, 2024 Dr. Shannen Wise MD Other Provider Active Start: September 01, 2024 End: September 03, 2024 Armen Ascencio MD Other Provider Active Start: September 01, 2024 End: September 03, 2024 Dr. Dariana Wise DO Attending Provider Active S tart: September 01, 2024 End: September 03, 2024 Dr. Ugo Rogel MD Other Provider Active Start : September 01, 2024 End: September 03, 2024 Dr. Ugo Rogel MD Other Provider Active Start : September 01, 2024 Team Status: Active Member Role Status Dates Dr. Kurt Lieberman MD Primary Care Provider Active Start: September 02, 2024 Dr. Murphy Ramírez DO Emergency Provider Active Start: September 02, 2024 Dr. Severiano Ibarra DO Admit Provider Active Start: September 02, 2024 Dr. Severiano Ibarra DO Other Provider Active Start: September 02, 2024 Jason Walker MD Other Provider Active Start: 2024 Dr. Roberto Quiñones MD Other Provider Active Start: September 02, 2024 Estela Guzman MD Other Provider Active Start : September 02, 2024 Dr. Sonali Ny DO Other Provider Active St art: September 02, 2024 Dr. Monik Barker MD Other Provider Active Start: September 02, 2024 Dr. Ronald Christianson MD Other Provider Active Sta rt: September 02, 2024 Dr. Candis Noel MD Other Provider Active Start : September 02, 2024 Dr. Luis Crooks MD Other Provider Active Start: September 02, 2024 Dr. Twin Hanna MD Other Provider Active Start : September 02, 2024 Dr. Ralph Monet MD Other Provider Active Sta rt: September 02, 2024 Sherry Priest MD Other Provider Active Start : September 02, 2024 Dr. Scott Fernandez MD Other Provider Active St art: September 02, 2024 Dr. Jovita Gibson MD Other Provider Active Start : September 02, 2024 Dr. Giovanni Norris MD Other Provider Active Sta rt: September 02, 2024 Dr. Magno Sheppard MD Other Provider Active Start: September 02, 2024 Dr. Erik Pagan MD Other Provider Active St art: September 02, 2024 Dr. Neil Loredo MD Other Provider Active Star t: September 02, 2024 Dr. Lux Driver MD Other Provider Active St art: September 02, 2024 Dr. Shannen Wise MD Other Provider Active Start: September 02, 2024 Armen Ascencio MD Other Provider Active Start: September 02, 2024 Dr. Dariana Wise DO Attending Provider Active S tart: September 02, 2024 Dr. Dariana Wise DO Other Provider Active Start : September 02, 2024 Dr. Ugo Rogel MD Other Provider Active Start : September 02, 2024 Team Status: Active Member Role Status Dates Dr. Kurt Lieberman MD Primary Care Provider Active Start: September 03, 2024 Dr. Murphy Ramírez DO Emergency Provider Active Start: September 03, 2024 Dr. Severiano Ibarra DO Admit Provider Active Start: September 03, 2024 Dr. Severiano Ibarra DO Other Provider Active Start: September 03, 2024 Jason Walker MD Other Provider Active Start: Ap 2024 Dr. Roberto Quiñones MD Other Provider Active Start: September 03, 2024 Estela Guzman MD Other Provider Active Start : September 03, 2024 Dr. Sonali Ny DO Other Provider Active St art: September 03, 2024 Dr. Monik Barker MD Other Provider Active Start: September 03, 2024 Dr. Ronald Christianson MD Other Provider Active Sta rt: September 03, 2024 Dr. Candis Noel MD Other Provider Active Start : September 03, 2024 Dr. Luis Crooks MD Other Provider Active Start: September 03, 2024 Dr. Twin Hanna MD Other Provider Active Start : September 03, 2024 Dr. Ralph Monet MD Other Provider Active Sta rt: September 03, 2024 Sherry Priest MD Other Provider Active Start : September 03, 2024 Dr. Scott Fernandez MD Other Provider Active St art: September 03, 2024 Dr. Jovita Gibson MD Other Provider Active Start : September 03, 2024 Dr. Giovanni Norris MD Other Provider Active Sta rt: September 03, 2024 Dr. Magno Sheppard MD Other Provider Active Start: September 03, 2024 Dr. Erik Pagan MD Other Provider Active St art: September 03, 2024 Dr. Neil Loredo MD Other Provider Active Star t: September 03, 2024 Dr. Lux Driver MD Other Provider Active St art: September 03, 2024 Dr. Shannen Wise MD Other Provider Active Start: September 03, 2024 Armen Ascecnio MD Other Provider Active Start: September 03, 2024 Dr. Dariana Wise DO Attending Provider Active S tart: September 03, 2024 Dr. Dariana Wise DO Other Provider Active Start : September 03, 2024 Dr. Ugo Rogel MD Other Provider Active Start : September 03, 2024 Continuing Education Instructor Relationship Specialty Start Date End Date Angela High MD [address] [place] [address] PCP - General Internal Medicine 09/10/24 Continuing Education Instructor Relationship Specialty Start Date End Date Angela High MD [address] [place] [address] PCP - General Internal Medicine 09/10/24 Continuing Education Instructor Relationship Specialty Start Date End Date Angela High MD [address] [place] [address] PCP - General Internal Medicine 09/10/24 Continuing Education Instructor Relationship Specialty Start Date End Date Angela High MD [address] [place] [address] PCP - General Internal Medicine 09/10/24 Team Status: Active Member Role Status Dates Dr. Angela High MD Primary Care Provider Active Team Status: Active Member Role Status Dates Dr. Kurt Lieberman MD Primary Care Provider Active Start: September 01, 2024 Dr. Ugo Rogel MD Attending Provider Active S tart: September 01, 2024 Dr. Severiano Ibarra DO Referring Provider Active Start: September 01, 2024 Team Status: Inactive Member Role Status Dates DAVI Green Attending Provider Active Star t: September 17, 2024 End: September 17, 2024 Dr. Angela High MD Primary Care Provider Active Start: September 17, 2024 End: September 17, 2024 Dr. Angela High MD Referring Provider Active Start: September 17, 2024 End: September 17, 2024 Team Status: Active Member Role Status Dates Dr. Ugo Rogel MD Admit Provider Active Start : October 05, 2024 Dr. Ugo Rogel MD Attending Provider Active S tart: October 05, 2024 Dr. Ugo Rogel MD Referring Provider Active S tart: October 05, 2024 Dr. Ugo Rogel MD Other Provider Active Start : October 05, 2024 Dr. Angela High MD Primary Care Provider Active Start: October 05, 2024 Team Status: Inactive Member Role Status Dates Dr. Ugo Rogel MD Admit Provider Active Start : October 05, 2024 End: October 06, 2024 Dr. Ugo Rogel MD Attending Provider Active S tart: October 05, 2024 End: October 06, 2024 Dr. Ugo Rogel MD Referring Provider Active S tart: October 05, 2024 End: October 06, 2024 Dr. Angela High MD Primary Care Provider Active Start: October 05, 2024 End: October 06, 2024 Team Status: Active Member Role Status Dates Dr. Ugo Rogel MD Admit Provider Active Start : October 06, 2024 Dr. Ugo Rogel MD Referring Provider Active S tart: October 06, 2024 Dr. Ugo Rogel MD Other Provider Active Start : October 06, 2024 Dr. Angela High MD Primary Care Provider Active Start: October 06, 2024 DAVI Green Attending Provider Active Star t: October 06, 2024 Continuing Education Instructor Relationship Specialty Start Date End Date Angela High MD [address] [place], [place] [address] PCP - General Internal Medicine 09/10/24 Older, Laura, RADIO TIME SALESPERSON.ASSOCIATE PROFESSOR OF ENGINEERING [address] [place] [address] [facility] Internal Medicine 10/11/24 Continuing Education Instructor Relationship Specialty Start Date End Date Angela High MD [address] [place], [place] [id number] PCP - General Internal Medicine 09/10/24 Older, Laura, RADIO TIME SALESPERSON.ASSOCIATE PROFESSOR OF ENGINEERING [address] [place], [place] [address] [facility] Internal Medicine 10/11/24 Team Status: Inactive Member Role Status Dates Dr. Kurt Lieberman MD Referring Provider Active Start: October 22, 2024 End: October 22, 2024 DAVI Green Attending Provider Active Star t: October 22, 2024 End: October 22, 2024 Dr. Angela High MD Primary Care Provider Active Start: October 22, 2024 End: October 22, 2024 Team Status: Active Member Role Status Dates Dr. Angela High MD Primary Care Provider Active Start: October 22, 2024 DAVI Green Attending Provider Active Star t: October 22, 2024 DAVI Green Referring Provider Active Star t: October 22, 2024 Team Status: Active Member Role Status Dates Dr. Angela High MD Primary Care Provider Active Start: October 22, 2024 Dr. Jony Lambert , Emergency Provider Active S tart: October 22, 2024 Dr. Axel Lockwood MD Admit Provider Active Start: October 22, 2024 Dr. Axel Lockwood MD Attending Provider Active Start: October 22, 2024 Team Status: Inactive Member Role Status Dates Dr. Angela High MD Primary Care Provider Active Start: October 22, 2024 End: October 24, 2024 Dr. Jony Lambert DO Emergency Provider Active S tart: October 22, 2024 End: October 24, 2024 Dr. Axel Lockwood MD Admit Provider Active Start: October 22, 2024 End: October 24, 2024 Dr. Axel Lockwood MD Other Provider Active Start: October 22, 2024 End: October 24, 2024 Dr. Familia Manriquez DO Attending Provider Active Start: October 22, 2024 End: October 24, 2024 Team Status: Active Member Role Status Dates Dr. Angela High MD Primary Care Provider Active Start: October 22, 2024 Dr. Jony Lambert DO Emergency Provider Active S tart: October 22, 2024 Dr. Axel Lockwood MD Admit Provider Active Start: October 22, 2024 Dr. Axel Lockwood MD Attending Provider Active Start: October 22, 2024 Dr. Axel Lockwood MD Other Provider Active Start: October 22, 2024 Team Status: Active Member Role Status Dates Dr. Angela High MD Primary Care Provider Active Start: October 23, 2024 Dr. Jony Lambert DO Emergency Provider Active S tart: October 23, 2024 Dr. Axel Lockwood MD Admit Provider Active Start: October 23, 2024 Dr. Axel Lockwood MD Other Provider Active Start: October 23, 2024 Dr. Familia Manriquez DO Attending Provider Active Start: October 23, 2024 Dr. Familia Manriquez DO Other Provider Active Start: October 23, 2024 Team Status: Active Member Role Status Dates Dr. nAgela High MD Primary Care Provider Active Start: October 24, 2024 Dr. Jony Lambert DO Emergency Provider Active S tart: October 24, 2024 Dr. Axel Lockwood MD Admit Provider Active Start: October 24, 2024 Dr. Axel Lockwood MD Other Provider Active Start: October 24, 2024 Dr. Familia Manriquez DO Attending Provider Active Start: October 24, 2024 Dr. Familia Manriquez DO Other Provider Active Start: October 24, 2024 Team Status: Inactive Member Role Status Dates Dr. Angela High MD Primary Care Provider Active Start: October 22, 2024 End: October 22, 2024 ADVI Green Attending Provider Active Star t: October 22, 2024 End: October 22, 2024 DAVI Green Referring Provider Active Star t: October 22, 2024 End: October 22, 2024 Reason for Visit (unrecogniz ed section and content) Reason Comments Procedure Right upper lip lipo ma Reason Comments Hospital Follow Up Reason Comments Medication Problem Reason Comments 6 week f/u Goals (unrecognized section and content) Goals may be documented in a n alternate section FOR RECORDS PERTAINING TO PATIENTS WHO ARE OR HAVE BEEN ENROLLED IN A CHEMICAL DEPENDENCY/SUBSTANCEABUSE PROGRAM, SOME INFORMATION MAY BE OMITTED. This clinical summary was aggregated from multiple sources. Caution should be exercised in using it in the provision of clinical care. This summary normalizes information from multiple sources, and as a consequence, information in this document may materially change the coding, format and clinical context of patient data. In addition, data may be omitted in some cases. CLINICAL DECISIONS SHOULD BE BASED ON THE PRIMARY CLINICAL RECORDS. [email or web address] provides no warranty or guarantee of the accuracy or completeness of information in this document.
== END 2024-10-30 00:34 | disposition home or self-care (01) ==
LOC: ED 10-30 00:22
PROVIDERS: Emergency Provider Emergency Medicine; PCP Internal Medicine; Visit Provider Emergency Medicine
DX: S81.811A Laceration without foreign body, right lower leg, initial encounter (principal); E11.9 Type 2 diabetes mellitus without complications; E78.00 Pure hypercholesterolemia, unspecified; I10 Essential (primary) hypertension; Z86.73 Personal history of transient ischemic attack (TIA), and cerebral infarction without residual deficits; Z79.02 Long term (current) use of antithrombotics/antiplatelets; Z79.82 Long term (current) use of aspirin; Z79.899 Other long term (current) drug therapy; R60.9 Edema, unspecified; W26.8XXA Contact with other sharp object(s), not elsewhere classified, initial encounter; S80.11XA Contusion of right lower leg, initial encounter
CPT/HCPCS: 99282

== ENCOUNTER 2024-11-17 12:52 | Inpatient (IN) | payer MEDICARE, SELFPAY ==
[2024-11-17] VITALS (10 sets, daily range): BP systolic 148–160; BP diastolic 46–59; PULSE 79–90; RESP 14–22; TEMP 36.4–37.1; O2SAT 96–100; BMI 37.2; BMI 36.4
[2024-11-17 16:34] LABS: Absolute Lymphocyte Count 2.28 X10^3/uL (0.83-4.51); Absolute Neutrophil Count 7.2 X10^3/uL (2.0-7.7); Basophil# 0.07 X10^3/uL; Basophil% 0.6 % (0-1); Eosinophil# 0.04 X10^3/uL; Eosinophils% 0.4 % (0-5); Hematocrit 32.9 % (37-47); Hemoglobin 10.6 g/dL (12.0-15.0); Lymphocyte # 2.28 X10^3/ul (0.83-4.51); Lymphocyte % 20.9 % (19-41); Mean Corp Hgb Conc 32.2 g/dL (32-36); Mean Corpuscular Hgb 29.9 pg (27.0-32.0); Mean Corpuscular Volume 92.9 fL (81-99); Monocyte# 1.24 X10^3/uL; Monocyte% 11.4 % (0-10); NRBC Flagged by Analyzer 0 % (0-5); Neutrophil # 7.21 X10^3/uL (2.7-7.7); Neutrophil % 66.1 % (47-70); POSITIVE COUNT YES; Platelet Count 357 K/mm3 (150-450); RBC Distribution Width CV 14.8 % (11.6-14.6); RBC Distribution Width SD 50.4 fl (35.1-43.9); Red Blood Count 3.54 M/mm3 (4.2-5.4); White Blood Count 10.9 K/mm3 (4.4-11.0)
--- NOTE | 2024-11-17 16:41 | EX.ED.DYSGE1 ---
HPI History of Present Illness Chief Complaint: Nausea/Vomiting Informant: patient Narrative Narrative: Patient is 83-year-old female with history of carotid artery disease who underwent stenting by Dr. Rogel in September of this year, recent admission for hyponatremia about a month ago (that time sodium was 119), hypertension (reducing the lisinopril which is likely the cause of the hyponatremia), diabetes mellitus and hyperlipidemia presenting with worsening generalized weakness and JUJU. Patient has been having a lot of gagging which then causes her to vomits and dry heaves. She has associated dry mouth. This been going on prickly bad for the last 3 to 4 days. She had outpatient labs with her PCP 2 days ago and at that time her creatinine was 2.82 which is significantly worse than her baseline. Her daughter brought her in. He also notes that over the past few weeks she has been having worsening generalized weakness is having to rely heavily on a walker. Patient states that she does not know when her last bowel movement was but her bowel moods have been more mucus-like since her surgery in September. She has been passing a small amount of gas. Does have a history of prior cholecystectomy. Denies abdominal pain, fever, chills, shortness of breath or chest pain. States she continues to have very clear urine output and denies any decrease in her urine output. Came in for further evaluation. [facility] Medical History Wears glasses Wears dentures Bruising Insulin dependent diabetes mellitus High cholesterol Stroke/cerebrovascular accident History of echocardiogram History of edema CVA (cerebral vascular accident) Diabetes mellitus, type 2 Obesity (BMI 30-39.9) GERD (gastroesophageal reflux disease) Hypertension Diabetes Home Medications ?Medication ?Instructions ?Recorded ?Last Taken ?Type aspirin 81 mg chewable tablet 81 mg PO BREAKFAST SUPPLEMENT #0 09/03/24 11/17/24 Rx tabs atorvastatin 40 mg tablet 40 mg PO QHS CHOLESTEROL #30 tabs 09/03/24 10/21/24 Rx clopidogrel 75 mg tablet 75 mg PO DAILY BLOOD THINNER #30 09/03/24 11/17/24 Rx tabs insulin glargine 100 unit/mL (3 10 unit (0.1 mL) subcut QHS 09/03/24 10/21/24 Rx mL) subcutaneous pen (Lantus DIABETES #15 mL Solostar U-100 Insulin) metformin 500 mg tablet 500 mg PO BID DIABETES #60 tabs 09/03/24 11/17/24 Rx amlodipine 5 mg tablet 5 mg PO BID 10/22/24 11/17/24 History omeprazole 40 mg capsule,delayed 40 mg PO DAILY 10/22/24 11/17/24 History release losartan 50 mg tablet 50 mg PO DAILY 30 days #30 tabs 10/24/24 11/17/24 Rx Allergy/AdvReac Type Severity Reaction Status Date / Time hydrochlorothiazide AdvReac Severe hyponatremi Verified 11/17/24 12:53 a Family History Other Diabetes Surgical History History of cholecystectomy Social History Smoking Status: Never smoker ROS ROS ED Constitutional Constitutional ED: Denies chills or fever(s) ENT ENT ED: Reports other Details: Dry mouth, easy gagging Cardiovascular Cardiovascular: Denies chest pain Respiratory/Chest Respiratory/Chest: Denies cough or dyspnea Gastrointestinal Gastrointestinal: Reports constipation and vomiting; Denies abdominal pain, diarrhea, melena or nausea Genitourinary Genitourinary ED: Denies dysuria, hematuria or urinary frequency Musculoskeletal Musculoskeletal: Reports other Details: Reports chronic knee pain ; Denies arthralgias or myalgias Integumentary Denies rash Neurologic Neurologic: Reports weakness; Denies paresthesias Hematologic/Lymphatic Hematologic/Lymphatic: Denies easy bleeding or easy bruising EXAM Physical Exam Const Vital Signs: 11/17/24 12:53 11/17/24 14:53 11/17/24 15:36 Temperature 97.8 F Temperature Source Oral Pulse Rate 86 82 85 Respiratory Rate 16 18 22 H Blood Pressure 156/55 H 154/59 H Blood Pressure Mean 88 90 Pulse Ox 99 100 100 Oxygen Delivery Method Room Air Room Air 11/17/24 15:40 11/17/24 15:45 11/17/24 16:00 Temperature Temperature Source Pulse Rate 86 85 83 Respiratory Rate 17 22 H 18 Blood Pressure 154/59 H Blood Pressure Mean 82 Pulse Ox 100 100 100 Oxygen Delivery Method Room Air Room Air 11/17/24 16:15 11/17/24 18:00 Temperature Temperature Source Pulse Rate 87 85 Respiratory Rate 17 14 Blood Pressure 160/55 H Blood Pressure Mean 90 Pulse Ox 96 97 Oxygen Delivery Method Room Air Positive well nourished and well developed General Appearance ED: well developed and NAD HEENT Reports dry mucous membranes HEENT Narrative: Normal oropharynx Mouth ED: Yes dry mucous membranes Mouth: dry mucous membranes Eyes PERRL Neck supple and no JVD Chest Wall inspection of chest normal Resp normal respiratory effort and clear to auscultation bilaterally Cardio regular rate, regular rhythm and no murmurs GI non-tender GI Narrative: Ended abdomen. Normal bowel sounds. No tenderness. No fluid wave appreciated. Palpation: soft; Negative for tender or guarding Extremity normal to inspection General Extremety ED: Negative for edema General Extremity: Negative for edema Neuro Neuro Narrative: No focal deficits appreciated Sensorium / Orientation: alert Motor Exam: general weakness Psych mental status grossly normal Skin no rashes or lesions noted and no wounds MDM MDM MDM Narrative Medical decision making narrative: Patient hide of generalized weakness, gagging/vomiting with decreased oral intake and outpatient elevation of her creatinine. Protocol labs obtained including CBC, CMP, urinalysis and CMP. Will also add on CT abdomen pelvis without contrast and give IV fluids for presumed JUJU. Differential includes decreased oral intake, small bowel obstruction, colitis, pancreatitis, renal colic, urinary tract infection, medication side effect, decreased oral intake, dehydration. Patient started on IV fluids at 150 an hour. CBC is unremarkable. He has a mild mean with a hemoglobin 10.6 but this is at her baseline with no acute change. CMP shows significant JUJU with a creatinine of 2.78 (patient's creatinine was 0.9 a month ago). Bicarb is low at 14.7. Her BUN is normal. I suspect this is more associated with dehydration and poor oral intake. Urinalysis does show contamination with 2+ bacteria. Will send culture but hold off on treating for UTI at this time as I suspect it is contaminant. CT the abdomen pelvis does not show any acute process. Case discussed with hospitalist, Dr. Marsh for admission. Patient hemodynamically stable in emergency room and in agreement with this plan. Lab Data Labs: Laboratory Results - last 24 hr 11/17/24 11/17/24 11/17/24 14:20 16:45 17:37 WBC 10.9 RBC 3.54 L Hgb 10.6 L Hct 32.9 L MCV 92.9 MCH 29.9 MCHC 32.2 RDW Std Deviation 50.4 H RDW Coeff of Óscar 14.8 H Plt Count 357 MPV 11.0 Immature Gran % (Auto) 0.600 Neut % (Auto) 66.1 Lymph % (Auto) 20.9 Walker % (Auto) 11.4 H Eos % (Auto) 0.4 Baso % (Auto) 0.6 Absolute Neuts (auto) 7.2 Absolute Lymphs (auto) 2.28 Nucleated RBC % 0 Sodium Cancelled 133 Potassium Cancelled 3.6 Chloride Cancelled 99 Carbon Dioxide Cancelled 14.7 L Anion Gap Cancelled 19 H BUN Cancelled 19 Creatinine Cancelled 2.78 H Estim Creat Clear Calc Cancelled 13.66 L Est GFR (MDRD) Non-Af Cancelled 16 L BUN/Creatinine Ratio Cancelled 6.9 L Glucose Cancelled 120 H Calcium Cancelled 7.8 Total Bilirubin Cancelled 0.35 AST Cancelled 21 ALT Cancelled 23 Alkaline Phosphatase Cancelled 107 H Total Protein Cancelled 6.4 Albumin Cancelled 3.5 Globulin Cancelled 2.9 Albumin/Globulin Ratio Cancelled 1.2 Lipase Cancelled 57 Urine Color Straw Urine Clarity Sl. Cloudy Urine pH 6.0 Ur Specific [place] 1.010 Urine Protein 30 H Urine Glucose (UA) Normal Urine Ketones Negative Urine Occult Blood Negative Urine Nitrite Negative Urine Bilirubin Negative Urine Urobilinogen Normal Ur Leukocyte Esterase 25 H Urine RBC 0-5 SEEN Urine WBC 5-10 SEEN Ur Squamous Epith Cells 5-10 SEEN Urine Bacteria 2+ Urine Mucus 0 SEEN Radiography Diagnostic Testing: Clinical Impression(s) from Imaging Studies Abdomen/Pelvis CT 11/17/24 16:55 IMPRESSION: No acute abdominopelvic finding on noncontrast CT. Reading Location: [facility] Discharge Plan Triage Chief Complaint: Nausea/Vomiting ED Provider: Sherron Toussaint Dx/Rx/DC Orders Clinical Impression: JUJU (acute kidney injury), Difficulty swallowing, Hyperactive gag reflex, Weakness Prescriptions: No Action amlodipine 5 mg tablet 5 mg PO BID omeprazole 40 mg capsule,delayed release(DR/EC) 40 mg PO DAILY atorvastatin 40 mg Tablet 40 mg PO QHS Qty: 30 1RF aspirin 81 mg Tablet,Chewable 81 mg PO BREAKFAST Qty: 0 0RF clopidogrel 75 mg Tablet 75 mg PO DAILY Qty: 30 1RF metformin 500 mg tablet 500 mg PO BID Qty: 60 1RF insulin glargine [Lantus Solostar U-100 Insulin] 100 unit/mL (3 mL) insulin pen 10 unit subcut QHS Qty: 15 0RF losartan 50 mg Tablet 50 mg PO DAILY 30 Days Qty: 30 2RF Primary Care Provider: Divya Hinojosa Referrals: Divya Hinojosa MD [Primary Care Provider] - Print Language: Filipino Disposition Disposition: Acute Care Hospital [facility]
[2024-11-17] MEDS: 0.9% Normal Saline (1000mL) 1,000 ML 150 ML IV (16:48)
[2024-11-17 16:49] LABS: Mucous, Urine 0 SEEN /hpf (<or=2+)
--- NOTE | 2024-11-17 16:55 | CT_ITS ---
PROCEDURE: ABDOMEN/PELVIS WITHOUT CONT 11/17/2024 REASON FOR EXAM: VOMITING, CONSTIPATION, JUJU TECHNIQUE: ABDOMEN/PELVIS WITHOUT CONT Noncontrast technique limits evaluation of the abdominal and pelvic viscera. Coronal and Sagittal reconstruction series were provided. One or more dose reduction techniques were used (e.g., Automated exposure control, adjustment of the mA and/or kV according to patient size, use of iterative reconstruction technique). RADIATION DOSE SUMMARY: DLP: 800 mGycm COMPARISON: Liver ultrasound 05/09/2020. FINDINGS: Lung bases: Mild dependent atelectasis. Liver: The unopacified liver is normal in size. No biliary ductal dilation. Gallbladder: Prior cholecystectomy. Spleen: Normal in size. Pancreas: The unopacified pancreas is mildly atrophic. Adrenals: No adrenal mass. Kidneys: Mild symmetric renal cortical scarring. Right parapelvic cyst. No hydronephrosis or nephrolithiasis. Bladder: The urinary bladder is moderately distended and unremarkable. Reproductive Organs: Prior hysterectomy. Bowel: The bowel loops are nondilated. No ascites or pneumoperitoneum. No inflammatory mass in the expected region of the appendix. Lymph nodes: Visualization is limited without the use of IV contrast. No suspicious lymphadenopathy. Vasculature: Severe calcified plaque of the aortoiliac vessels. Bones/soft tissues: Small fat containing umbilical hernia. Thoracolumbar spondylosis. CT/Abdomen/Pelvis without Cont IMPRESSION: No acute abdominopelvic finding on noncontrast CT. Reading Location: [id number]
[2024-11-17 17:11] LABS: Color, Urine Straw (Yellow); Glucose, Dipstick Normal (Normal); Ketone-Dipstick Negative (Negative); Leukocyte Esterase-Dipstick 25 /ul (Negative); Nitrite-Dipstick Negative (Negative); Occult Blood-Urine Negative /ul (Negative); Protein-Dipstick 30 mg/dl (Negative); Urine Bilirubin Dipstick Negative (Negative); Urine Clarity Sl. Cloudy (Clear); Urine Urobilinogen Normal (Normal)
[2024-11-17 17:22] LABS: Red Blood Cells-Urine 0-5 SEEN /hpf (0-5); Squamous Epithelial Cells - UA 5-10 SEEN /hpf (5-10); White Blood Cells 5-10 SEEN /hpf (0-5)
[2024-11-17 17:34] LABS: Bacteria 2+ /hpf (None Seen)
[2024-11-17 18:08] LABS: Lipase 57 U/L (13-75)
[2024-11-17 18:09] LABS: ALB/GLOB Ratio 1.2 RATIO (0.9-2.4); AST(SGOT) 21 U/L (<=31); Alanine Aminotransfer ALT/SGPT 23 U/L (<=34); Albumin, Serum 3.5 g/dL (3.4-4.8); Alkaline Phosphatase 107 U/L (35-104); Anion Gap 19 (5-15); BUN 19 mg/dL (4-19); BUN/Creat Ratio 6.9 RATIO (10-20); Calcium,Total 7.8 mg/dL (7.6-11.0); Carbon Dioxide 14.7 mmol/L (21.0-32.0); Chloride 99 mmol/L (98-108); Creatinine, Serum 2.78 mg/dL (0.70-1.20); EST Glomerular Filtration Rate 16 (>60); Estimated Creatinine Clearance 13.66 ml/min (50-250); Globulin 2.9 g/dL (2.2-4.2); Glucose 120 mg/dL (70-99); Potassium 3.6 mmol/L (3.3-5.1); Protein, Total 6.4 g/dL (5.9-8.4); Sodium Level 133 mmol/L (133-145); Total Bilirubin 0.35 mg/dL (0.00-1.30)
--- NOTE | 2024-11-17 18:46 | PCM.HP.STD ---
HPI - General General Date of Admission: 11/17/24 Date of Service: 11/17/24 Chief Complaint: Gagging, dry heaves, diarrhea HPI Narrative BLAYNE MOODY, is a 83-year-old female with a history of carotid artery disease status post stenting by Dr. Rogel September 2024, hypertension, diabetes, CVA, recent admission for hyponatremia presented [facility] ED 11/17/2024 for nausea and vomiting. Symptoms have been significant for the past 3 to 4 days and she notes a lot of gagging which then causes vomiting and dry heaves. Reportedly outpatient labs with PCP showed creatinine of 2.82 which is worse than her baseline so her daughter brought her into the hospital. She also has been having generalized weakness. In the ED temperature 97.8, heart rate of 86 with blood pressure 156/55, respiratory rate 16 and pulse ox 99% on room air. CBC with white blood cell count within normal limits and hemoglobin of 10.6, similar to last month. BMP with bicarb 14.7, anion gap of 19 and creatinine 2.78 up from 0.[address] abdomen pelvis with no acute process. UA with minimal leuk esterase, 2+ bacteria but also squamous cells and no nitrate. Given patient's nausea and vomiting with JUJU hospitalist contacted for admission. Patient evaluated at bedside. She reports that she has been feeling weak and having dry heaves over the past week or 2 with frequent gagging, she also tends to stay constipated however over the past week she has been having loose mustardy stool, no abdominal pain, has had poor p.o. intake due to the gagging and dry heaves. Denies any fevers, has had some decreased urination but no burning on urination. No other new or acute complaints. [facility] Medical History Wears glasses Wears dentures Bruising Insulin dependent diabetes mellitus High cholesterol Stroke/cerebrovascular accident History of echocardiogram History of edema CVA (cerebral vascular accident) Diabetes mellitus, type 2 Obesity (BMI 30-39.9) GERD (gastroesophageal reflux disease) Hypertension Diabetes Home Medications ?Medication ?Instructions ?Recorded ?Last Taken ?Type aspirin 81 mg chewable tablet 81 mg PO BREAKFAST SUPPLEMENT #0 09/03/24 11/17/24 Rx tabs atorvastatin 40 mg tablet 40 mg PO QHS CHOLESTEROL #30 tabs 04/11/25 05/29/25 Rx clopidogrel 75 mg tablet 75 mg PO DAILY BLOOD THINNER #30 09/03/24 11/17/24 Rx tabs insulin glargine 100 unit/mL (3 10 unit (0.1 mL) subcut QHS 09/03/24 10/21/24 Rx mL) subcutaneous pen (Lantus DIABETES #15 mL Solostar U-100 Insulin) metformin 500 mg tablet 500 mg PO BID DIABETES #60 tabs 09/03/24 11/17/24 Rx amlodipine 5 mg tablet 5 mg PO BID 10/22/24 11/17/24 History omeprazole 40 mg capsule,delayed 40 mg PO DAILY 10/22/24 11/17/24 History release losartan 50 mg tablet 50 mg PO DAILY 30 days #30 tabs 10/24/24 11/17/24 Rx Allergy/AdvReac Type Severity Reaction Status Date / Time hydrochlorothiazide AdvReac Severe hyponatremi Verified 11/17/24 12:53 a Family History Other Diabetes Surgical History History of cholecystectomy Social History Smoking Status: Never smoker ROS ROS Narrative General: Denies fever/chills HENT: Denies headache, denies stuffy nose, denies sore throat EYES: Denies changes in vision Resp: Denies cough, denies shortness of breath Cardiac: Denies chest pain GI: Denies abdominal pain, having loose yellow mustardy stool, dry heaves and gagging : Some decreased urination Extremity: Denies swelling MSK: Generalized weakness Neuro: Denies any numbness/tingling Heme: Denies any bleeding or bruising Skin: Denies rashes Psychiatric: No complaints voiced Vital Signs Vital Signs Vital Signs: 11/17/24 12:53 11/17/24 14:53 11/17/24 15:36 Temperature 97.8 F Temperature Source Oral Pulse Rate 86 82 85 Respiratory Rate 16 18 22 H Blood Pressure 156/55 H 154/59 H Blood Pressure Mean 88 90 Pulse Ox 99 100 100 Oxygen Delivery Method Room Air Room Air 11/17/24 15:40 11/17/24 15:45 11/17/24 16:00 Temperature Temperature Source Pulse Rate 86 85 83 Respiratory Rate 17 22 H 18 Blood Pressure 154/59 H Blood Pressure Mean 82 Pulse Ox 100 100 100 Oxygen Delivery Method Room Air Room Air 11/17/24 16:15 11/17/24 18:00 Temperature Temperature Source Pulse Rate 87 85 Respiratory Rate 17 14 Blood Pressure 160/55 H Blood Pressure Mean 90 Pulse Ox 96 97 Oxygen Delivery Method Room Air Weight Weight: 75.3 kg Body Mass Index (BMI) 37.2 Physical Exam Narrative General: Alert, oriented, no apparent distress HEENT: Atraumatic, normocephalic Eyes: Anicteric, normal conjunctiva, extraocular movements grossly intact Neck: Supple Respiratory: Clear to auscultation bilaterally, normal respiratory effort Cardiovascular: Regular rate and rhythm GI: Soft, nontender, nondistended Extremities: No pitting edema Musculoskeletal: Moving all extremities Neuro: No overt focal neurological deficits Skin: No rashes appreciated, some scattered bruising Psych: Cooperative Results Lab / Micro Data 11/17/24 14:20 11/17/24 17:37 Labs: Laboratory Results - last 24 hr 11/17/24 14:20: WBC 10.9, RBC 3.54 L, Hgb 10.6 L, Hct 32.9 L, MCV 92.9, MCH 29.9, MCHC 32.2, RDW Std Deviation 50.4 H, RDW Coeff of Óscar 14.8 H, Plt Count 357, MPV 11.0, Immature Gran % (Auto) 0.600, Neut % (Auto) 66.1, Lymph % (Auto) 20.9, [place] % (Auto) 11.4 H, Eos % (Auto) 0.4, Baso % (Auto) 0.6, Absolute Neuts (auto) 7.2, Absolute Lymphs (auto) 2.28, Nucleated RBC % 0, Sodium Cancelled, Potassium Cancelled, Chloride Cancelled, Carbon Dioxide Cancelled, Anion Gap Cancelled, BUN Cancelled, Creatinine Cancelled, Estim Creat Clear Calc Cancelled, Est GFR (MDRD) Non-Af Cancelled, BUN/Creatinine Ratio Cancelled, Glucose Cancelled, Calcium Cancelled, Total Bilirubin Cancelled, AST Cancelled, ALT Cancelled, Alkaline Phosphatase Cancelled, Total Protein Cancelled, Albumin Cancelled, Globulin Cancelled, Albumin/Globulin Ratio Cancelled, Lipase Cancelled 11/17/24 16:45: Urine Color Straw, Urine Clarity Sl. Cloudy, Urine pH 6.0, Ur Specific [place] 1.010, Urine Protein 30 H, Urine Glucose (UA) Normal, Urine Ketones Negative, Urine Occult Blood Negative, Urine Nitrite Negative, Urine Bilirubin Negative, Urine Urobilinogen Normal, Ur Leukocyte Esterase 25 H, Urine RBC 0-5 SEEN, Urine WBC 5-10 SEEN, Ur Squamous Epith Cells 5-10 SEEN, Urine Bacteria 2+, Urine Mucus 0 SEEN 11/17/24 17:37: Sodium 133, Potassium 3.6, Chloride 99, Carbon Dioxide 14.7 L, Anion Gap 19 H, BUN 19, Creatinine 2.78 H, Estim Creat Clear Calc 13.66 L, Est GFR (MDRD) Non-Af 16 L, BUN/Creatinine Ratio 6.9 L, Glucose 120 H, Calcium 7.8, Total Bilirubin 0.35, AST 21, ALT 23, Alkaline Phosphatase 107 H, Total Protein 6.4, Albumin 3.5, Globulin 2.9, Albumin/Globulin Ratio 1.2, Lipase 57 Imaging Radiology Impression Abdomen/Pelvis CT 11/17/24 16:55 IMPRESSION: No acute abdominopelvic finding on noncontrast CT. Reading Location: [id number] Assessment & Plan Assessment/Plan (1) JUJU (acute kidney injury): PLAN: Plan # JUJU - Recent creatinine of 2.82 through her PCPs office, creatinine here earlier this month 0.90 -UA with squamous cells, 2+ bacteria but minimal leuk esterase and no nitrate, not overtly convincing for infectious etiology -Suspect patient's nausea and vomiting with poor p.o. intake is the underlying etiology of her JUJU though interestingly BUN reported as within normal limits -Will check urine studies - Avoid nephrotoxic agents -Will monitor daily weights and I's and O's - IV fluids - Daily BMP - If no improvement may need further workup and/or nephrology consultation - Hold home losartan - Given increased With decrease bicarb will check lactic acid # Nausea/vomiting/diarrhea -CT abdomen pelvis no acute process - IV fluids -Supportive care - Cardiac diet, can scale back if needed - Given the diarrhea will check C. difficile and enteric panels # Recent carotid artery stenting - September [address] Rogel - Continue patient's home medications # History of CVA per documentation -Continue home medications #Type 2 diabetes mellitus -Glucose checks and sliding scale insulin -Given patient's poor p.o. intake will decrease long-acting insulin, hold metformin #Hypertension - Continue patient's home amlodipine #GERD -Continue PPI #DVT ppx: hep subq Imelda Marsh MD Charges/Coding Visit Charges Inpatient E&M: 66558 Init Hosp L2
[2024-11-17 21:55] LABS: Lactic Acid 1.8 mmol/L (0.0-2.0)
[2024-11-17] MEDS: Heparin Injection (Vial) 5,000 UNIT/ML VIAL 5000 UNIT SC (22:40)
[2024-11-17] MEDS: Insulin Glargine-YFGN 100 UNIT/ML Pen SC (22:45)
--- OUTSIDE RECORDS SUMMARY | 2024-11-17 22:52 | XMS RPT_ITS | CCD ---
Author Organization [facility] Care Team Providers Care M[facility] [employer] Name Role Phone Kurt Lieberman MD Primary Care Provider Dr. Kurt Lieberman MD Primary Care Provider Dr. Kurt Lieberman MD Attending Provider Dr. Kurt Lieberman MD Referring Provider Dr. Murphy Ramírez DO Emergency Provider Ibarra DO, Dr. العلي Admit Provider Unavail able Ibarra DO, Dr. العلي Attending Provider Unav ailable Ibarra DO, Dr. العلي Other Provider Unavail able Jason Walker MD Other Provider Unavailable Ishmael PENN, Dr. Mejia Other Provider Estela Guzman MD Other Provider Unavailable Dr. Sonali Ny DO Other Provider [phone] Dr. Monik Barker MD Other Provider Dr. Ronald Christianson MD Other Provider Dr. Candis Noel MD Other Provider Dr. Luis Crooks MD Other Provider [phone] Twin Hanna MD Other Provider Chiki PENN, Dr. Rosas Other Provider [phone] Sherry Priest MD Other Provider Dr. Scott Fernandez MD Other Provider Arthur PENN, Dr. Hussein Other Provider [phone] Myrna PENN, Dr. Davila Other Provider Silver [...] Provider Pebbles PENN, Dr. Arizmendi Other Provider Frandy HOLLAND, Dr. Westbrook Other Provider Micaela PENN, Angela Primary Care Provider Dr. Kurt Lieberman MD Primary Care Provider Dr. Severiano Ibarra DO Referring Provider Unav ailable Sonali Bowie Attending Provider Micaela PENN, Dr. Stokes Primary Care Provider Micaela PENN, Dr. Stokes Referring Provider Dr. Ugo Rogel MD Admit Provider [phone] Ugo Rogel MD Referring Provider Older DIGITAL INTERN.ASSISTANT CREDIT MANAGER, Laura Unavailable Dr. Kurt Lieberman MD Referring Provider Sonali Bowie Referring Provider Dr. Jony Lambert DO Emergency Provider Fabián PENN, Dr. Axel Pinon Admit Provider Fabián PENN, Dr. Axel Pinon Attending Provider Fabián PENN, Dr. Axel Pinon Other Provider Dr. Familia Manriquez DO Attending Provider Fabián PENN, Dr. Axel Pinon Attending Provider Declan HOLLAND, Dr. Barbosa Other Provider Dipti PENN, Dr. Williamson Emergency Provider Pebbles, Ugo Attending Unavailable Severiano Ibarra Referring Unavailable Lieberman, Kurt Primary Care Unavailable Haro, Sonali Referring Unavailable Haro, Sonali Attending Unavailable Ganta, Angela Primary Care Unavailable Axel Lockwood Consulting Unavailable Axel Lockwood Admitting Unavailable Familia Manriquez Attending Unavailable Ganta, Angela Primary Care Unavailable Familia Manriquez Consulting Unavailable Axel Lockwood Attending Unavailable Axel Lockwood Admitting Unavailable Familia Manriquez Attending Unavailable Axel Lockwood Consulting Unavailable Ganta, Angela Primary Care Unavailable Pebbles, Ugo Attending Unavailable Columbia, Ugo Referring Unavailable Pebbles, Ugo Admitting Unavailable Ganta, Angela Primary Care Unavailable Angel Shepard Attending Unavailable Lieberman, Kurt Primary Care Unavailable Columbia, Ugo Referring Unavailable Columbia, Ugo Admitting Unavailable Haro, Sonali Attending Unavailable Columbia, Ugo Consulting Unavailable Ganta, Angela Primary Care Unavailable Haro, Sonali Attending Unavailable Ganta, Angela Referring Unavailable Ganta, Angela Primary Care Unavailable Columbia, Ugo Consulting Unavailable Columbia, Ugo Attending Unavailable Columbia, Ugo Referring Unavailable Columbia, Ugo Admitting Unavailable Ganta, Angela Primary Care Unavailable Haro, Sonali Attending Unavailable Lieberman, Kurt Referring Unavailable Ganta, Angela Primary Care Unavailable Lieberman, Kurt Referring Unavailable Lieberman, Kurt Attending Unavailable Lieberman, Kurt Primary Care Unavailable Dariana Wise Attending Unavailable Severiano Ibarra Admitting Unavailable Lieberman, Kurt Primary Care Unavailable Jason Walker Consulting Unavailable Adeli, Amir Consulting Unavailable Hinduja, Estela Consulting Unavailable Anant, Sonali Consulting Unavailable Zha, Monik Consulting Unavailable Sammy, Ronald Consulting Unavailable Bert, Candis Consulting Unavailable Bitsylvia Luis Consulting Unavailable Twin Hanna Consulting Unavailable Ralph Monet Consulting Unavailable Sherry Priest Consulting Unavailable Scott Fernandez Consulting Unavailable Jovita Gibson Consulting Unavailable Giovanni Norris Consulting Unavailable Magno Sheppard Consulting Unavailabl e Pagan, Peter Consulting Unavailable Loredo, Rami Consulting Unavailable Neisha, Lux Consulting Unavailable Frandy, Shannen Consulting Unavailable Armen Ascencio Consulting Unavailable Severiano Ibarra Consulting Unavailable Ugo Rogel Consulting Unavailable Severiano Ibarra Admitting Unavailable Severiano Ibarra Attending Unavailable Jason Walker Consulting Unavailable [facility] Primary Care Unavailable Adeli, Amir Consulting Unavailable Hinduja, Estela Consulting Unavailable Anant, Sonali Consulting Unavailable Zha, Monik Consulting Unavailable Sammy, Ronald Consulting Unavailable Bert, Candis Consulting Unavailable Bittar, Luis Consulting Unavailable Twin Hanna Consulting Unavailable Ralph Monet Consulting Unavailable Sherry Priest Consulting Unavailable cSott Fernandez Consulting Unavailable Jovita Gibson Consulting Unavailable Ridha, Mohamed Consulting Unavailable Zahermes, d Nicholas Consulting UnavailErik Farias Consulting Unavailable Loredo, Rami Consulting Unavailable Neisha, Lux Consulting Unavailable Frandy, Shannen Consulting Unavailable Armen Ascencio Consulting Unavailable Severiano Ibarra Consulting Unavailable Dariana Wise Attending Unavailable Jason Walker Consulting Unavailable Severiano Ibarra Admitting Unavailable [facility] Primary Care Unavailable Adeli, Amir Consulting Unavailable Hinduja, Estela Consulting Unavailable Anant, Sonali Consulting Unavailable Zha, Monik Consulting Unavailable Sammy, Ronald Consulting Unavailable Bert, Candis Consulting Unavailable Bittar, Luis Consulting Unavailable Twin Hanna Consulting Unavailable Ralph Monet Consulting Unavailable Sherry Priest Consulting Unavailable Scott Fernandez Consulting Unavailable Jovita Gibson Consulting Unavailable Ridha, Mohamed Consulting Unavailable Zasonjalojessieh, d Nicholas Consulting UnavailErik Farias Consulting Unavailable Loredo, Rami Consulting Unavailable Neisha, Lux Consulting Unavailable Frandy, Shannen Consulting Unavailable Armen Ascencio Consulting Unavailable Severiano Ibarra Consulting Unavailable Ugo Rogel Consulting Unavailable Dariana Wise Consulting Unavailable Tahir, Sonali Attending Unavailable Severiano Ibarra Referring Unavailable Haro, Sonali Referring Unavailable Haro, Sonali Attending Unavailable [facility], [facility] Primary Care Unavailable Clay Resendez Attending Unavailable [facility], [facility] Primary Care Unavailable [facility], ANGELA Referring Unavailable GANTA, ANGELA Primary Care Unavailable GANTA, ANGELA Attending Unavailable GANTA, ANGELA Primary Care Unavailable GANTA, ANGELA Referring Unavailable GANTA, ANGELA Primary Care Unavailable GANTA, ANGELA Attending Unavailable GANTA, ANGELA Primary Care Unavailable GANTA, ANGELA Attending Unavailable SELF Referring Unavailable KURT LIEBERMAN Primary Care Unavailable KURT LIEBERMAN Primary Care Unavailable Dipti PENN, Dr. Williamson Attending Provider Dr. Sherron Toussaint DO Emergency Provider [phone] Maximo PENN, Dr. Segura Admit Provider Maximo PENN, Dr. Segura Attending Provider Allergies Allergy Classification Reported Allergen(s) Allergy Type Date of Onset Reaction(s) Facility (4 sources) hydroCHLOROthiazide Drug Allergy 5 [facility] (1 source) hydroCHLOROthiazide Drug Allergy 5 [facility] Repository Medications Current Medications Medication Drug [...] 2024 11:03am aspirin 81 mg chewable tablet (18 sources) Platelet Aggregation Inhibitor, Nonsteroidal Anti-inflammatory Drug Start: 09-03-2024 take 1 tablet by mouth at breakfast Aspirin 81 mg Tablet,Chewable Active 81 mg PO WITH BREAKFAST 0 September 03, 2024 12:00am atorvastatin 40 mg oral tablet (18 sources) HMG-CoA Reductase Inhibitor Start: 09-03-2024 End: 09-30-2024 take 1 tablet by mouth at bedtime Atorvastatin 40 mg Tablet Active 40 mg PO AT BEDTIME September 03, 2024 12:00am clopidogrel 75 mg oral tablet (18 sources) P2Y12 Platelet Inhibitor Start: 09-03-2024 End: 09-30-2024 take 1 tablet by mouth once daily Clopidogrel 75 mg Tablet Active 75 mg PO DAILY September 03, 2024 12:00am docosahexaenoic acid/epa (FISH OIL ORAL) (6 sources) take 1 tablet by mouth once daily docosahexaenoic acid/epa (FISH OIL ORAL) Take 1 tablet by mouth once daily. Active 3 ml insulin glargine 100 unt/ml pen injector (20 sources) Insulin Analog Start: 09-03-2024 Insulin Glargine [...] Active losartan potassium 50 mg oral tablet (4 sources) Angiotensin 2 Receptor Belia Start: 10-24-2024 take 1 tablet by mouth once daily Losartan 50 mg Tablet Active 50 mg PO DAILY October 24, 2024 12:00am metFORMIN hydrochloride 500 mg oral tablet (18 sources) Biguanide Start: 09-03-2024 End: 09-30-2024 take 1 tablet by mouth twice daily Metformin 500 mg tablet Active 500 mg PO TWICE A DAY 60 September 03, 2024 12:00am omeprazole 40 mg delayed release oral capsule (17 sources) Proton Pump Inhibitor Start: 11-07-2023 End: 10-21-2024 take 1 capsule by mouth once daily Omeprazole 40 mg capsule,delayed release(DR/EC) Active 40 mg PO DAILY October 22, 2024 12:00am Completed/Discontinued Medications Medication Drug Class(es) Dates Sig (Normalized) Sig (Original) acetaminophen 500 mg oral tablet (7 sources) Start: 10-06-2024 End: 10-22-2024 take 2 tablets by mouth every eight hours Acetaminophen 500 mg Tablet Discontinued 1000 mg PO EVERY 8 HOURS 0 7 October 06, 2024 12:00am October 22, 2024 5:32pm carvedilol 12.5 mg oral tablet (13 sources) alpha-Adrenergic Belia, beta-Adrenergic Belia Start: 09-03-2024 End: 10-11-2024 take 1 tablet by mouth twice daily at mealtime Carvedilol 12.5 mg Tablet Discontinued 12.5 mg PO TWICE DAILY WITH MEALS September 03, 2024 12:00am October 06, 2024 [...] / losartan potassium 50 mg oral tablet (17 sources) Thiazide Diuretic, Angiotensin 2 Receptor Belia Start: 09-10-2024 End: 10-24-2024 Losartan-Hydrochl orothiazide 50-12.5 mg tablet Discontinued 1 {tbl} PO daily September 17, 2024 12:00am October 24, 2024 2:36pm isosorbide dinitrate 10 mg oral tablet (13 sources) Nitrate Vasodilator Start: 09-30-2024 End: 10-11-2024 [...] succinate 50 mg extended release oral tablet (13 sources) beta-Adrenergic Belia Start: 08-31-2024 End: 09-03-2024 [...] (Discontinued by another Health Care Provider) nystatin [id number] unt/ml oral suspension (2 sources) Polyene Antifungal [...] Problem Date Documented Da te Episodic/Chronic Acute and unspecified renal failure (3 sources) Acute renal failure syndrome; Translations: [Acute kidney failure, unspecified] 11-17-2024 Episodic Acute cerebrovascular disease (20 sources) Cerebrovascular accident; Translations: [Cerebral infarction, unspecified] Onset: 5 09-01-2024 Chronic Comment on above: 08/2024 Conditions associated with dizziness or vertigo (20 sources) Dizziness; Translations: [Dizziness and giddiness] Onset: [...] 5 08-31-2024 Chronic Fluid and electrolyte disorders (14 sources) Acute hyponatremia; Translations: [Hypo-osmolality and hyponatremia] Onset: 5 10-22-2024 Episodic Hypertension with complications and secondary hypertension (19 sources) Hypertensive emergency; Translations: [Hypertensive emergency] Onset: 5 08-31-2024 Chronic Malaise and fatigue (20 sources) Asthenia; Translations: [Weakness] Onset: 5 08-31-2024 Episodic Occlusion or stenosis of precerebral arteries (20 sources) Right carotid artery stenosis; Translations: [Occlusion and stenosis of right carotid artery] Onset: 5 09-01-2024 Chronic Comment on above: s/p R TCAR 09/2024 Open wounds of extremities (3 sources) Tear of skin; Translations: [Laceration without foreign body, right lower leg, initial encounter] Onset: 5 10-30-2024 Episodic Other aftercare (1 source) Post-discharge follow-up; Translations: [Encounter for follow-up examination after completed treatment for conditions other than malignant neoplasm] 09-10-2024 Episodic Other aftercare (1 source) alf (current) use of insulin; Translations: [long term care pharmacist (current) use of insulin] Onset: Episodic Other aftercare (1 source) Encounter for follow-up examination after completed treatment for conditions other than malignant neoplasm; Translations: [Hospital discharge follow-up] Onset: Episodic Other circulatory disease (12 sources) Disorder of carotid artery; Translations: [Disorder of arteries and arterioles, unspecified] 10-22-2024 Chronic Other circulatory disease (2 sources) Disorder of arteries and arterioles, unspecified; Translations: [Disorder of arteries and arterioles, unspecified] Onset: Chronic Other circulatory disease (5 sources) History of cerebrovascular accident; Translations: [Personal history of transient ischemic attack (TIA), and cerebral infarction without residual deficits] 10-22-2024 Episodic Other circulatory disease (3 sources) Choking; Translations: [Unspecified foreign body in larynx causing other injury, subsequent encounter] 11-16-2024 Episodic Other connective tissue disease (1 source) Muscle weakness; Translations: [Muscle weakness (generalized)] 11-16-2024 Episodic Other gastrointestinal disorders (11 sources) Dysphagia; Translations: [Dysphagia, unspecified] 10-22-2024 Episodic Other gastrointestinal disorders (2 sources) Dysphagia, unspecified; Translations: [Dysphagia, unspecified] Onset: Episodic Other gastrointestinal disorders (2 sources) Gagging; Translations: [Other specified symptoms and signs involving the digestive system and abdomen] 11-16-2024 Episodic Other gastrointestinal disorders (1 source) Other specified symptoms and signs involving the digestive system and abdomen; Translations: [Gagging episode] Onset: Episodic Other injuries and conditions due to external causes (1 source) Unspecified foreign body in larynx causing other injury, subsequent encounter; Translations: [Choking, subsequent encounter] Onset: Episodic Other nervous system disorders (1 source) Difficulty walking; Translations: [Difficulty in walking, not elsewhere classified] 10-11-2024 Chronic Other nervous system disorders (18 sources) Slurred speech; Translations: [Slurred speech] 08-31-2024 [...] Episodic Other nutritional; endocrine; and metabolic disorders (18 sources) Body mass index 30+ - obesity; Translations: [Obesity, unspecified] 08-31-2024 Chronic Other nutritional; endocrine; and metabolic disorders (11 sources) Severe obesity; Translations: [Class 2 severe obesity with serious comorbidity and body mass index (BMI) of 35.0 to 35.9 in adult, unspecified obesity type (HCC)] Onset: 5 09-10-2024 Chronic Other nutritional; endocrine; and metabolic disorders (1 source) Obesity, unspecified; Translations: [Obesity, unspecified] Onset: Chronic Other nutritional; endocrine; and metabolic disorders (2 sources) Loss of appetite; Translations: [Anorexia] 11-16-2024 Episodic Other nutritional; endocrine; and metabolic disorders (2 sources) Weight decreased; Translations: [Abnormal weight loss] 11-16-2024 Episodic Other nutritional; endocrine; and metabolic disorders (1 source) Anorexia; Translations: [Loss of appetite] Onset: Episodic Other nutritional; endocrine; and metabolic disorders (1 source) Abnormal weight loss; Translations: [Weight loss] Onset: Episodic Other screening for suspected conditions (not mental disorders or infectious disease) (1 source) Other specified abnormal findings of blood chemistry; Translations: [Other specified abnormal findings of blood chemistry] Onset: Episodic Other upper respiratory disease (6 sources) Pharyngeal gag reflex finding; Translations: [Other diseases of pharynx] 10-22-2024 Episodic Other upper respiratory disease (2 sources) Other diseases of pharynx; Translations: [Other diseases of pharynx] Onset: 5 Episodic Residual codes; unclassified (1 source) Hallucinations; Translations: [Hallucinations, unspecified] 11-16-2024 Episodic Residual codes; unclassified (1 source) Past history of procedure; Translations: [Other specified postprocedural states] 11-16-2024 Episodic Residual codes; unclassified (1 source) Hallucinations, unspecified; Translations: [Hallucinations] Onset: Episodic Screening and history of mental health and substance abuse codes (4 sources) Patient encounter status; Translations: [Encounter for screening for depression] Onset: 5 10-11-2024 Episodic Superficial injury; contusion (2 sources) Hematoma of right lower leg; Translations: [Contusion of right lower leg, initial encounter] 10-30-2024 Episodic Transient cerebral ischemia (11 sources) Transient cerebral ischemia; Translations: [Transient cerebral ischemic attack, unspecified] Onset: 5 08-31-2024 Chronic Unclassified (8 sources) 3 to 6 months Past or Other Problems Problem Classification Problem Date Documented Da te Episodic/Chronic Other non-traumatic joint disorders (1 source) Pain in left knee; Translations: [Pain in left knee] Onset: 06-17-2024 Episodic Results Test Name Value Interpretation Reference Range Facility Absolute lymphocyte countOrd ered By: Sherron Toussaint on 11-17-2024 Lymphocytes Auto (Unsp spec) [#/Vol] 2.28 10*3/uL 0.83-4.51 [facility] Absolute neutrophil countOrd ered By: Sherron Toussaint on 11-17-2024 Neutrophils (Bld) [#/Vol] 7.2 10*3/uL 2.0-7.7 [facility] Anion gap in Serum or Plasma Ordered By: Sherron Toussaint on 11-17-2024 Anion gap [Moles/Vol] 19 mmol/L High 5-15 [facility] Automated lymphocyte count a s percentage of total leukocytesOrdered By: Sherron Toussaint on 11-17-2024 Lymphocytes/100 WBC Auto (Unsp spec) 20.9 % 19-41 [facility] BUN/creatinine ratioOrdered By: Sherron Toussaint on 11-17-2024 Urea nitrogen/Creatinine [Mass ratio] 6.9 mg/mg Low 10-20 [facility] Basophil percentageOrdered B y: Sherron Toussaint on 11-17-2024 Basophils/100 WBC (Bld) 0.6 % 0-1 [facility] Bilirubin Test strip Ql (U)O rdered By: Sherron Toussaint on 11-17-2024 Bilirubin Ql (U) Negative Negative [facility] Bilirubin, totalOrdered By: Sherron Toussaint on 11-17-2024 Bilirubin [Mass/Vol] 0.35 mg/dL 0.00-1.30 [facility] Carbon dioxide, total [Moles /volume] in Central venous bloodOrdered By: Sherron Toussaint on 11-17-2024 CO2 [Moles/Vol] 14.7 mmol/L Low 21.0-32.0 [facility] Chloride assayOrdered By: Aiden Toussaint on 11-17-2024 Chloride [Moles/Vol] 99 mmol/L 98-108 [facility] Eosinophil percentageOrdered By: Sherron Toussaint on 11-17-2024 Eosinophils/100 WBC (Bld) 0.4 % 0-5 [facility] Erythrocyte distribution wid th ratioOrdered By: Sherron Toussaint on 11-17-2024 Erythrocyte distribution width (RBC) [Ratio] 14.8 % High 11.6-14.6 [facility] Erythrocyte distribution wid th standard deviationOrdered By: Sherron Toussaint on 11-17-2024 Erythrocyte distribution width (RBC) [Ratio] 50.4 fl High 35.1-43.9 [facility] Glomerular filtration rate ( GFR) estimation/1.73 sq m using serum, plasma, or whole bOrdered By: Sherron Toussaint on 11-17-2024 GFR/1.73 sq M.predicted among non-blacks MDRD (S/P/Bld) [Vol rate/Area] 16 mL/min/{1.73_m2} Low >60 [facility] Comment on above: mL/min/1.73m2 CKD-EP I Creatinine Equation (2020) Hematocrit Auto (Bld) [Volum e fraction]Ordered By: Sherron Toussaint on 11-17-2024 Hematocrit (Bld) [Volume fraction] 32.9 % Low 37-47 [facility] Hemoglobin measurementOrdere d By: Sherron Toussaint on 11-17-2024 Hemoglobin (Bld) [Mass/Vol] 10.6 g/dL Low 12.0-15.0 [facility] Immature granulocytes/100 WB C Auto (Bld)Ordered By: Sherron Toussaint on 11-17-2024 Immature granulocytes/100 WBC (Bld) 0.600 % 0.0-0.9 [facility] Comment on above: IG% - Immature Granu locytes (promyelocytes, myelocytes and metamyelocytes) > 1% indicates that a LEFT SHIFT is Present. Ketones Test strip Ql (U)Ord ered By: Sherron Toussaint on 11-17-2024 Ketones Ql (U) Negative Negative [facility] Laboratory - Chemistry and C hemistry - challengeOrdered By: Sherron Toussaint on 11-17-2024 AST [Catalytic activity/Vol] 21 U/L <32 [facility] Comment on above: Hemolysis present, R esults could be affected. Lipase measurementOrdered By : Sherron Toussaint on 11-17-2024 Lipase [Catalytic activity/Vol] 57 U/L 13-75 [facility] Comment on above: Please note:LIPASE r evised reference range effective 22. New Lipase methodology. Expected to produce lower values than the previous assay method. NEW Reference Range: 13 - 75 U/L MCV (mean corpuscular volume ) determinationOrdered By: Sherron Toussaint on 11-17-2024 MCV (RBC) [Entitic vol] 92.9 fL 81-99 [facility] Mean corpuscular hemoglobin (MCH) determinationOrdered By: Sherron Toussaint on 11-17-2024 MCH (RBC) [Entitic mass] 29.9 pg 27.0-32.0 [facility] Mean corpuscular hemoglobin concentration (MCHC) determinationOrdered By: Sherron Toussaint on 11-17-2024 MCHC (RBC) [Mass/Vol] 32.2 g/dL 32-36 [facility] Mean platelet volume determi nationOrdered By: Sherron Toussaint on 11-17-2024 Platelet mean volume (Bld) [Entitic vol] 11.0 fL 6.2-12.0 [facility] Microscopic analysis of urin e for red blood cells (RBC)Ordered By: Sherron Toussaint on 11-17-2024 Microscopic analysis of urine for red blood cells (RBC) 0-5 SEEN /hpf 0-5 [facility] Monocyte percentageOrdered B y: Sherron Toussiant on 11-17-2024 Monocytes/100 WBC (Bld) 11.4 % High 0-10 [facility] Mucus LM Ql (Urine sed)Order ed By: Sherron Toussaint on 11-17-2024 Mucus Ql (Urine sed) 0 SEEN /hpf [facility] Neutrophil percentageOrdered By: Sherron Toussaint on 11-17-2024 Neutrophils/100 WBC (Bld) 66.1 % 47-70 [facility] Nitrite Test strip Ql (U)Ord ered By: Sherron Toussaint on 11-17-2024 Nitrite Ql (U) Negative Negative [facility] Nucleated red blood cell per centageOrdered By: Sherron Toussaint on 11-17-2024 Nucleated RBC/100 WBC (Bld) [Ratio] 0 % 0-5 [facility] Platelet countOrdered By: Aiden Toussaint on 11-17-2024 Platelets (Bld) [#/Vol] 357 10*3/uL 150-450 [facility] Potassium measurement (mass/ volume)Ordered By: Sherron Toussaint on 11-17-2024 Potassium (Unsp spec) [Mass/Vol] 3.6 mmol/L 3.3-5.1 [facility] Comment on above: Hemolysis present, R esults could be affected. Protein Test strip Ql (U)Ord ered By: Sherron Toussaint on 11-17-2024 Protein Ql (U) 30 mg/dl High Negative [facility] RBC Auto (Bld) [#/Vol]Ordere d By: Sherron Toussaint on 11-17-2024 RBC (Bld) [#/Vol] 3.54 10*6/uL Low 4.2-5.4 [facility] Serum creatinine measurement (mass/volume)Ordered By: Sherron Toussaint on 11-17-2024 Creatinine [Mass/Vol] 2.78 mg/dL High 0.70-1.20 [facility] Serum globulin measurementOr dered By: Sherron Toussaint on 11-17-2024 Globulin (S) [Mass/Vol] 2.9 g/dL 2.2-4.2 [facility] Serum glucose measurement (m ass/volume)Ordered By: Sherron Toussaint on 11-17-2024 Glucose [Mass/Vol] 120 mg/dL High 70-99 [facility] Serum or plasma alanine jackson otransferase (ALT) measurementOrdered By: Sherron Toussaint on 11-17-2024 ALT [Catalytic activity/Vol] 23 U/L <35 [facility] Serum or plasma albumin alfred urement (mass/volume)Ordered By: Sherron Toussaint on 11-17-2024 Albumin [Mass/Vol] 3.5 g/dL 3.4-4.8 [facility] Serum or plasma albumin/glob ulin mass ratioOrdered By: Sherron Toussaint on 11-17-2024 Albumin/Globulin [Mass ratio] 1.2 {ratio} 0.9-2.4 [facility] Serum or plasma alkaline windy sphatase measurementOrdered By: Sherron Toussaint on 11-17-2024 ALP [Catalytic activity/Vol] 107 U/L High 35-104 [facility] Serum or plasma calcium alfred urement (mass/volume)Ordered By: Sherron Toussaint on 11-17-2024 Calcium [Mass/Vol] 7.8 mg/dL 7.6-11.0 [facility] Serum or plasma urea nitroge n measurement (mass/volume)Ordered By: Sherron Toussaint on 11-17-2024 Urea nitrogen [Mass/Vol] 19 mg/dL 4-19 [facility] Sodium levelOrdered By: Kiki Toussaint on 11-17-2024 Sodium [Moles/Vol] 133 mmol/L 133-145 [facility] Squamous epithelial cells de tection in urine sediment by light microscopyOrdered By: hSerron Toussaint on 11-17-2024 Epithelial cells.squamous LM Ql (Urine sed) 5-10 SEEN /hpf 5-10 [facility] Total proteinOrdered By: Deysi Toussaint on 11-17-2024 Protein [Mass/Vol] 6.4 g/dL 5.9-8.4 [facility] Urine clarityOrdered By: Deysi Toussaint on 11-17-2024 Clarity (U) Sl. Cloudy Clear [facility] Urine color determinationOrd ered By: Sherron Toussaint on 11-17-2024 Color (U) Straw Yellow [facility] Urine glucose detectionOrder ed By: Sherron Toussaint on 11-17-2024 Glucose Ql (U) Normal mg/dl Normal [facility] Urine leukocyte esterase det ection by dipstickOrdered By: Sherron Toussaint on 11-17-2024 Leukocyte esterase Test strip Ql (U) 25 /ul High Negative [facility] Urine pHOrdered By: Sherron hamilton on 11-17-2024 pH (U) 6.0 [pH] 5.0 - 8.0 [facility] Urine sediment bacteria coun t by microscopy (number/high power field)Ordered By: Sherron Toussaint on 11-17-2024 Bacteria LM.HPF (Urine sed) [#/Area] 2 /[HPF] None Seen [facility] Urine specific gravity measu rementOrdered By: Sherron Toussaint on 11-17-2024 Specific gravity (U) [Rel density] 1.010 1.002-1.030 [facility] Urine urobilinogen measureme ntOrdered By: Sherron Toussaint on 11-17-2024 Urobilinogen Ql (U) Normal mg/dl Normal [facility] White blood cell (WBC) count Ordered By: Sherron Toussaint on 11-17-2024 WBC (Bld) [#/Vol] 10.9 10*3/uL 4.4-11.0 [facility] White blood cell countOrdere d By: Sherron Toussaint on 11-17-2024 White blood cell count 5-10 SEEN /hpf 0-5 [facility] Basic metabolic 2000 panelon 11-16-2024 Anion gap [Moles/Vol] 16 mmol/L High 8-15 [facility] Comment on above: Order Comment: Speci men Type: BLOOD SPECIMENOrdering Facility: [facility] Address: [address] [place] [address] [place] [address] Performed By: #### 2 4321-2 ####[facility] LABCLIA [id number] [facility] [address] [address] [place] Calcium [Mass/Vol] 8.6 mg/dL Normal 8.5-10.2 [facility] Comment on above: Order Comment: Speci men Type: BLOOD SPECIMENOrdering Facility: [facility] Address: [address] [place] [address] Performed By: #### 2 4321-2 ####[facility] LABCLIA [id number] [facility] [place] [id number] [place] Chloride [Moles/Vol] 99 mmol/L Normal 98-107 [facility] Comment on above: Order Comment: Speci men Type: BLOOD SPECIMENOrdering Facility: [facility] Address: [address] [place] [address] Performed By: #### 2 4321-2 ####[facility] LABCLIA [id number] [place] [address] [place] CO2 [Moles/Vol] 20 mmol/L Low 22-30 [facility] Comment on above: Order Comment: Speci men Type: BLOOD SPECIMENOrdering Facility: [facility] Address: [address] [place] [address] Performed By: #### 2 4321-2 ####[facility] LABCLIA [id number] [place] [id number] [place] Creatinine [Mass/Vol] 2.82 mg/dL High 0.58-0.96 [facility] Comment on above: Order Comment: Speci men Type: BLOOD SPECIMENOrdering Facility: [facility] Address: [address] [place] [address] Performed By: #### 2 4321-2 ####[facility] LABCLIA [id number] [place] [id number] [place] Creatinine and Glomerular filtration rate.predicted panel (S/P/Bld) 16 mL/min/1.73m??? Low >=60 [facility] Comment on above: Order Comment: Huseyin vasquez Type: BLOOD SPECIMENOrdering Facility: [facility] Address: [address] [place] [address] Result Comment: Cecilia mated Glomerular Filtration Rate (eGFR) is calculated using the 2020 CKD-EPI creatinine equation. This equation utilizes serum creatinine, sex, and age as parameters. The creatinine assay has traceable calibration to isotope dilution-mass spectrometry. Refer to KDIGO guidelines for clinical interpretation. In patients with unstable renal function, e.g. those with acute kidney injury, the eGFR may not accurately reflect actual GFR. Performed By: #### 2 4321-2 ####[facility] [id number] [place] [address] [place] Glucose [Mass/Vol] 164 mg/dL High 74-99 [facility] Comment on above: Order Comment: Huseyin vasquez Type: BLOOD SPECIMENOrdering Facility: [facility] Address: [address] [place] [address] Result Comment: The [place] Diabetes Association (ADA) provides guidance for cutoff values for fasting glucose and random glucose. The ADA defines fasting as no caloric intake for at least 8 hours. Fasting plasma glucose results between 100 to 125 mg/dL indicate increased risk for diabetes (prediabetes). Fasting plasma glucose results greater than or equal to 126 mg/dL meet the criteria for diagnosis of diabetes. In the absence of unequivocal hyperglycemia, results should be confirmed by repeat testing. In a patient with classic symptoms of hyperglycemia or hyperglycemic crisis, random plasma glucose results greater than or equal to 200 mg/dL meet the criteria for diagnosis of diabetes. Reference: Standards of Medical Care in Diabetes 2016, [place] Diabetes Association. Diabetes Care. 2016.39(Suppl 1). Performed By: #### 2 4321-2 ####[facility] [id number] [place] [address] [place] Potassium [Moles/Vol] 4.1 mmol/L Normal 3.7-5.1 [facility] Comment on above: Order Comment: Huseyin vasquez Type: BLOOD SPECIMENOrdering Facility: [facility] Address: [address] [place] [address] Performed By: #### 2 4321-2 ####[facility] LABCLIA [id number] [place] [id number] [place] Sodium [Moles/Vol] 135 mmol/L Low 136-144 [facility] Comment on above: Order Comment: Speci men Type: BLOOD SPECIMENOrdering Facility: [facility] Address: [address] [place] [address] Performed By: #### 2 4321-2 ####[facility] LABIA [id number] [address] [place] Urea nitrogen [Mass/Vol] 17 mg/dL Normal 7-21 [facility] Comment on above: Order Comment: Speci men Type: BLOOD SPECIMENOrdering Facility: [facility] Address: [address] [place] [address] Performed By: #### 2 4321-2 ####[facility] LABIA [id number] [address] [place] CNOVon 11-16-2024 CNOV Office Visit (INTMWS ) CHELSEA MOODY ([id number]) 1940 F Date Time Provider Department 11/16/24 10:40 AM ANGELA HIGH INTMWS During your visit today, we recorded the following information about you: Pulse Respiration Blood pressure Weight 88/minute 16/minute 171/73 76.2 kg Angela High MD 11/16/2024 11:28 AM Signed We discussed your recent health concerns and created a plan to address them: 1. Gagging, Difficulty Swallowing, and Loss of Appetite: - You have been experiencing frequent gagging, difficulty swallowing, and a reduced appetite since your carotid artery stenting 5 weeks ago. - I will order a barium swallow test to evaluate your swallowing mechanism and check for any issues that may be contributing to your symptoms. - I will also refer you to Dr. Shell, a contracts paralegal, for further evaluation of your gagging, loss of appetite, and weight loss. Their office will contact you to schedule an appointment. 2. Weight Loss: - You have lost weight recently, which may be related to your reduced appetite and difficulty eating. Please continue to eat soft foods like pudding or broth for now, and avoid foods that trigger gagging. - If you are unable to maintain your weight or symptoms worsen, please let me know. 3. Weakness and Fatigue: - You reported feeling very weak and fatigued, which may be related to your recent stroke and overall health. - I strongly recommend starting physical therapy to help improve your strength, balance, and mobility. Physical therapy will involve gentle exercises tailored to your needs and can help you regain some independence. 4. Blood Pressure and Sodium Levels: - Your blood pressure remains high, and your sodium levels may be contributing to your symptoms. I will order a basic metabolic panel (BMP) to check your sodium and other electrolytes. - Please continue to drink Gatorade or similar electrolyte-containing fluids as recommended, and avoid plain water unless otherwise instructed. 5. Hallucinations: - You mentioned seeing colorful images, bugs, and other visual disturbances. These may be related to your recent stroke or other factors. We will monitor this closely and address it further if it persists or worsens. 6. Medications: - You are currently not taking your medications due to difficulty swallowing pills. If you are open to it, we can explore alternative forms of your medications, such as crushing pills into flavored applesauce or switching to liquid formulations. Please let me know if you would like to try this. 7. Next Steps: - Complete the barium swallow test as scheduled. - Attend your appointment with Dr. Shell for a gastrointestinal evaluation. - Begin physical therapy to improve your strength and balance. - Follow up with me after your tests and specialist visit to review results and adjust your care plan as needed. Please take time to consider what aspects of your health and quality of life are most important to you. Your family and I are here to support you in making decisions that align with your goals and preferences. Let us know how we can help. Angela High MD 11/16/2024 1:04 PM Signed Reason for Visit Follow up HPI Chelsea Moody is a 83-year-old female, with a history of a recent stroke and carotid artery stenting, presenting with post-surgical dysphagia, weight loss, and visual hallucinations. She is accompanied by her daughter, who is providing additional history. Chelsea reports frequent gagging and occasional choking since undergoing carotid artery stenting on 10/05. She describes a sensation of her throat closing up and initiating dry heaving when exposed to unpleasant stimuli, such as certain smells or sights. She also experiences gagging when attempting to take oral medications or eat solid foods, leading to a diet limited to pudding and broth. She denies coughing but notes a significant decrease in appetite and weight loss, with her daughter estimating a current weight of less than 168 lbs, down from 173 lbs. She also reports visual hallucinations, including seeing bugs and colorful patterns that are not present. Chelsea also reports significant fatigue and weakness, stating she is barely walking and has not felt like herself since the surgery. She denies participating in physical therapy. She also reports tremors, which she describes as shaking like a leaf, and her daughter notes concerns about possible hyponatremia, as Chelsea had similar symptosm when her sodium levels are low. in the past she was advised to drink Gatorade instead of water to maintain sodium levels. She also reports decreased urine output, with an inability to provide a urine sample yesterday. Chelsea expresses a desire to feel as she did before her stroke and is hesitant about undergoing further medic (more content not included)... [facility] CHELSEA MOODY ([id number]) 1940 F Date Time Provider Department 11/16/24 ANGELA HIGH INTMWS During your visit today, we recorded the following information about you: Marysol Christian RN 11/16/2024 12:23 PM Signed Patient's daughter calls and is requesting Gastroenterology referral to be faxed to Dr. Shell office and for Barium swallow testing to be faxed to [facility]. ORESTES Burgos Chitra, MD 11/16/2024 5:14 PM Signed Please do the needful as requested by patient Regards, Marysol Bautista MD, RN 11/17/2024 8:11 AM Signed Orders faxed to providers as requested by patient. Marysol Christian RN Allergies As of Date: 11/16/2024 (No Known Allergies) Date Reviewed: 11/16/2024 Reviewed by: Sivakumar Barrios MA - Fully Assessed Prescriptions as of 11/17/2024 - omeprazole (PRILOSEC) 40 mg capsule Take 1 capsule by mouth once daily. - docosahexaenoic acid/epa (FISH OIL ORAL) Take 1 tablet by mouth once daily. - amLODIPine (NORVASC) 5 mg tablet Take 1 tablet by mouth two times a day. - atorvastatin (LIPITOR) 40 mg tablet Take [...] BLOOD SUGAR Problem List As Of Date 11/16/2024 Noted Resolved Class 2 severe obesity with serious comorbidity*09/10/2024 Type 2 diabetes mellitus without complication, *09/10/2024 Hypertension [I10] 09/10/2024 Encounter Status:Closed by MARYSOL CHRISTIAN on 11/17/24 Normal [facility] CBC panel Auto (Bld)on 11-15 Erythrocyte distribution width (RBC) [Ratio] 14.1 % Normal 11.5-15.0 [facility] Comment on above: Order Comment: Speci men Type: BLOOD SPECIMENOrdering Facility: [facility] Address: [address] [place] [address] Performed By: #### 5 8410-2 ####[facility] [id number] [place] [address] [place] Hematocrit (Bld) [Volume fraction] 31.8 % Low 36.0-46.0 [facility] Comment on above: Order Comment: Speci men Type: BLOOD SPECIMENOrdering Facility: [facility] Address: [address] [place] [address] Performed By: #### 5 8410-2 ####[facility] [id number] [place] [address] [place] Hemoglobin (Bld) [Mass/Vol] 10.7 g/dL Low 11.5-15.5 [facility] Comment on above: Order Comment: Speci men Type: BLOOD SPECIMENOrdering Facility: [facility] Address: [address] [place] [address] Performed By: #### 5 8410-2 ####[facility] [id number] [place] [address] [place] MCH (RBC) [Entitic mass] 29.6 pg Normal 26.0-34.0 [facility] Comment on above: Order Comment: Speci men Type: BLOOD SPECIMENOrdering Facility: [facility] Address: [address] [place] [address] Performed By: #### 5 8410-2 ####[facility] [id number] [place] [address] [place] MCHC (RBC) [Mass/Vol] 33.6 g/dL Normal 30.5-36.0 [facility] Comment on above: Order Comment: Speci men Type: BLOOD SPECIMENOrdering Facility: [facility] Address: [address] [place] [address] Performed By: #### 5 8410-2 ####[facility] [id number] [place] [address] [place] MCV (RBC) [Entitic vol] 88.1 fL Normal 80.0-100.0 C [facility] Comment on above: Order Comment: Speci men Type: BLOOD SPECIMENOrdering Facility: [facility] Address: [address] [place] [address] Performed By: #### 5 8410-2 ####[facility] [id number] [place] [address] [place] Nucleated RBC (Bld) [#/Vol] 10*3/uL Normal <0.01 [facility] Comment on above: Order Comment: Speci men Type: BLOOD SPECIMENOrdering Facility: [facility] Address: [address] [place] [address] Performed By: #### 5 8410-2 ####[facility] [id number] [place] [address] [place] Platelet mean volume (Bld) [Entitic vol] 10.0 fL Normal 9.0-12.7 [facility] Comment on above: Order Comment: Speci men Type: BLOOD SPECIMENOrdering Facility: [facility] Address: [address] [place] [address] Performed By: #### 5 8410-2 ####[facility] [id number] [place] [address] [place] Platelets (Bld) [#/Vol] 403 10*3/uL High 150-400 [facility] Comment on above: Order Comment: Speci men Type: BLOOD SPECIMENOrdering Facility: [facility] Address: [address] [place] [address] Performed By: #### 5 8410-2 ####[facility] [id number] [place] [address] [place] RBC (Bld) [#/Vol] 3.61 10*6/uL Low 3.90-5.20 [facility] Comment on above: Order Comment: Speci men Type: BLOOD SPECIMENOrdering Facility: [facility] Address: [address] [place] [address] Performed By: #### 5 8410-2 ####[facility] [id number] [place] [address] [place] WBC (Bld) [#/Vol] 10.11 10*3/uL Normal 3.70-11.00 [facility] Comment on above: Order Comment: Speci men Type: BLOOD SPECIMENOrdering Facility: [facility] Address: [address] [place] [address] Performed By: #### 5 8410-2 ####[facility] [id number] [place] [address] [place] Emergency Department Summary on 10-30-2024 Emergency Department Summary [facility] Medical Records Department [address] [place] [address] Emergency Department Summary 10/30/24 MR#: [id number] Acct: [id number] Name: CHELSEA MOODY Rep #: [id number] : 1940 83 From: Clay Resendez MD PCP: Dr. Angela High MD Status:REG ER Location: ED HPI History of Present Illness Chief Complaint: Wound Check Informant: patient and family Narrative Narrative: 83-year-old female states she accidentally injured her right lower leg about 8 hours ago, was the corner of a car door as it was closing, grazed her leg, she did not have a major injury, was pretty minor but it has been bleeding and they have had difficulty getting it to stop. She was just recently admitted to the hospital for stroke and discharged on aspirin and clopidogrel. She denies any systemic symptoms of anemia or fevers. [facility] Medical History Wears glasses Wears [...] PO BID DIABETES #60 tabs 10/21/24 Rx amlodipine 5 mg tablet 5 mg PO BID 10/22/24 10/22/24 Hist ory omeprazole 40 mg capsule,delayed 40 mg PO QDAY 10/22/24 10/22/24 Hi story release losartan 50 mg tablet 50 mg PO DAILY 30 days #30 tabs Unknown Rx Allergy/AdvReac Type Severity Reaction Status Date / Time hydrochlorothiazide AdvReac Severe hyponatremi Verified 10/29/24 23:24 a Family History (Updated 10/22/24 @ 20:[address] Axel Lockwood MD) Other Diabetes Surgical History History of cholecystectomy Social History Smoking Status: Never smoker ROS ROS ED Constitutional Constitutional ED: Denies chills, fatigue or fever(s) Cardiovascular Cardiovascular: Reports leg edema; Denies lightheadedness or syncope Musculoskeletal Musculoskeletal: Denies extremity pain Integumentary Reports as per HPI, wounds and other Details: Red/purplish skin around wound right lower leg Neurologic Neurologic: Denies headache(s) EXAM Physical Exam Const Vital Signs: 10/29/24 23:24 Temperature 97 F L Temperature Source Temporal Pulse Rate 101 H Respiratory Rate 18 Blood Pressure 203/55 H Blood Pressure Mean 104 Pulse Ox 98 Positive well nourished and well developed General Appearance ED: well developed HEENT normocephalic and atraumatic Resp normal respiratory effort Extremity full ROM Extremity Narrative: There is a superficial skin tear on the right mid thorpe, and the entire lower leg surrounding this is ecchymotic and nontender. It is nonblanching ecchymosis/purpura from the tibial tuberosity almost down to the ankle. There is no sign of infection. There is minimal oozing active bleeding, no other discharge. No tissue loss. All compartments are soft and nondistended. Full range of motion of the ankle and the knee without difficulty or limitation. Intact 2+/4 dorsalis pedis pulse. Neuro oriented x3 and CN's II-XII intact bilaterally Psych mental status grossly normal Skin Skin Narrative: skin tear right mid-thorpe; no lacerations MDM MDM MDM Narrative Medical decision making narrative: Patient and family worried about this being infected. She does not have any pain and there is no tenderness or signs of infection. All of this redness is blood/hematoma/ecchymo sis. I do not think she needs to have blood counts obtained to check for blood loss, she does not have any symptoms of that, and although she does have a lot of ecchymosis it does not look like she has lost grams of hemoglobin on exam. Nurses cleansed and dressed with Surgifoam, bacitracin, and a dressing with a little bit of pressure. Neurovascular intact distally afterwards, she has the rest of the Surgifoam to use as an outpatient, and we discussed reasons to return. Discharge Plan Triage Chief Complaint: Wound Check ED Provider: (more content not included)... Normal [facility] Basic Metabolic Profile (BMP )on 10-25-2024 BUN Normal 4-19 [facility] Comment on above: Result Comment: Canc elled via OM: Order cancelled - Patient discharged Performed By: #### L 501.080 #### [facility] [address] [place], [address] BUN/CRE Normal 10-20 [facility] Comment on above: Result Comment: Canc elled via OM: Order cancelled - Patient discharged Performed By: #### L 501.080 #### [facility] [address] [place], [address] Calcium Normal 7.6-11.0 [facility] Comment on above: Result Comment: Canc elled via OM: Order cancelled - Patient discharged Performed By: #### L 501.080 #### [facility] [address] [place], [address] CL Normal 98-108 [facility] Comment on above: Result Comment: Canc elled via OM: Order cancelled - Patient discharged Performed By: #### L 501.080 #### [facility] [address] [place], [address] CO2 Normal 21.0-32.0 [facility] Comment on above: Result Comment: Canc elled via OM: Order cancelled - Patient discharged Performed By: #### L 501.080 #### [facility] [address] [place], [address] CREAT,SERUM Normal 0.70-1.20 [facility] Comment on above: Result Comment: Canc elled via OM: Order cancelled - Patient discharged Performed By: #### L 501.080 #### [facility] [address] [place], [address] eGFR Normal >60 [facility] Comment on above: Result Comment: Canc elled via OM: Order cancelled - Patient discharged Performed By: #### L 501.080 #### [facility] [facility] [address] [place], [address] GAP Normal 5-15 [facility] Comment on above: Result Comment: Canc elled via OM: Order cancelled - Patient discharged Performed By: #### L 501.080 #### [facility] [address] [place], [address] GLU Normal 70-99 [facility] Comment on above: Result Comment: Canc elled via OM: Order cancelled - Patient discharged Performed By: #### L 501.080 #### [facility] [address] [place], [address] Potassium Normal 3.3-5.1 [facility] Comment on above: Result Comment: Canc elled via OM: Order cancelled - Patient discharged Performed By: #### L 501.080 #### [facility] [address] [place], [address] Basic Metabolic Profile (BMP) Normal 133-145 [facility] Comment on above: Result Comment: Canc elled via OM: Order cancelled - Patient discharged Performed By: #### L 501.080 #### [facility] [address] [place], [address] Anion gap in Serum or Plasma Ordered By: Familia Manriquez on 10-24-2024 Anion gap [Moles/Vol] 13 mmol/L 5-15 [facility] BUN/creatinine ratioOrdered By: Familia Manriquez on 10-24-2024 Urea nitrogen/Creatinine [Mass ratio] 8.4 mg/mg Low 10-20 [facility] Basic Metabolic Profile (BMP )on 10-24-2024 BUN/CRE 8.4 RATIO Low - [facility] Comment on above: Performed By: #### L 501.080 #### [facility] [address] [place], [address] Calcium [Mass/Vol] 9.2 mg/dL Normal 7.6-11.0 [facility] Comment on above: Performed By: #### L 501.080 #### [facility] [address] [place], [address] Chloride [Moles/Vol] 98 mmol/L Normal 98-108 [facility] Comment on above: Performed By: #### L 501.080 #### [facility] [address] [place], [address] CO2 [Moles/Vol] 20.9 mmol/L Low 21.0-32.0 [facility] Comment on above: Performed By: #### L 501.080 #### [facility] [address] [place], [address] Creatinine [Mass/Vol] 0.90 mg/dL Normal 0.70-1.20 [facility] Comment on above: Performed By: #### L 501.080 #### [facility] [address] [place], [address] ECRCL 42.51 ml/min Low 50-250 [facility] Comment on above: Performed By: #### L 501.080 #### [facility] [address] [place], [address] GAP 13 Normal 5-15 [facility] Comment on above: Performed By: #### L 501.080 #### [facility] [address] [place], [address] GFR/1.73 sq M.predicted among non-blacks MDRD (S/P/Bld) [Vol rate/Area] 63 mL/min/{1.73_m2} Normal >60 [facility] Comment on above: Result Comment: mL/m in/1.73m2 CKD-EPI Creatinine Equation (2020) Performed By: #### L 501.080 #### [facility] [address] [place], [address] Glucose [Mass/Vol] 148 mg/dL High 70-99 [facility] Comment on above: Performed By: #### L [id number] #### [facility] [address] [place], [address] Potassium [Moles/Vol] 4.0 mmol/L Normal 3.3-5.1 [facility] Comment on above: Performed By: #### L 501.080 #### [facility] [address] [place], [address] Sodium [Moles/Vol] 132 mmol/L Low 133-145 [facility] Comment on above: Performed By: #### L 501.080 #### [facility] [address] [place], [address] Urea nitrogen [Mass/Vol] 8 mg/dL Normal 4-19 [facility] Comment on above: Performed By: #### L 501.080 #### [facility] [address] [place], [address] Bedside Glucoseon 10-24-2024 FINGERSTICK GLU 263 mg/dL High 74-106 [facility] Comment on above: Result Comment: RAKESH GEMENT OF PATIENT CARE PER NURSING PROTOCOL Performed By: #### L 400.0001 #### [facility] [address] [place], [address] FINGERSTICK GLU 252 mg/dL High 74-106 [facility] Comment on above: Result Comment: RAKESH GEMENT OF PATIENT CARE PER NURSING PROTOCOL Performed By: #### L 400.0001 #### [facility] [address] [place], [address] FINGERSTICK GLU 156 mg/dL High 74-106 [facility] Comment on above: Result Comment: RAKESH GEMENT OF PATIENT CARE PER NURSING PROTOCOL Performed By: #### L 500.4100, L503.0106 #### [facility] [address] [place], [address] Carbon dioxide, total [Moles /volume] in Central venous bloodOrdered By: Familia Manriquez on 10-24-2024 CO2 [Moles/Vol] 20.9 mmol/L Low 21.0-32.0 [facility] Chloride assayOrdered By: Aries Manriquez on 10-24-2024 Chloride [Moles/Vol] 98 mmol/L 98-108 [facility] Discharge Instructionon 06-0 Discharge Instruction [facility] Medical Records Department [address] [place] [address] Instructions for Home/Discharge Instructions 10/24/24 1435 MR#: [id number] Acct: [id number] Name: CHELSEA MOODY Rep #: [id number] : 1940 83 From: Familia Manriquez DO [...] MD; Dr. Axel Lockwood MD Signed Normal [facility] Glomerular filtration rate ( GFR) estimation/1.73 sq m using serum, plasma, or whole bOrdered By: Familia Manriquez on 10-24-2024 GFR/1.73 sq M.predicted among non-blacks MDRD (S/P/Bld) [Vol rate/Area] 63 mL/min/{1.73_m2} >60 [facility] Comment on above: mL/min/1.73m2 CKD-EP I Creatinine Equation (2020) [facility] deOrdered By: Familia Manriquez on 10-24-2024 Glucose [Mass/Vol] 263 mg/dL High 74-106 [facility] Comment on above: MANAGEMENT OF PATIEN T CARE PER NURSING PROTOCOL Potassium measurement (mass/ volume)Ordered By: Familia Manriquez on 10-24-2024 Potassium (Unsp spec) [Mass/Vol] 4.0 mmol/L 3.3-5.1 [facility] Serum creatinine measurement (mass/volume)Ordered By: Familia Manriquez on 10-24-2024 Creatinine [Mass/Vol] 0.90 mg/dL 0.70-1.20 [facility] Serum glucose measurement (m ass/volume)Ordered By: Familia Manriquez on 10-24-2024 Glucose [Mass/Vol] 148 mg/dL High 70-99 [facility] Serum or plasma calcium alfred urement (mass/volume)Ordered By: Familia Manriquez on 10-24-2024 Calcium [Mass/Vol] 9.2 mg/dL 7.6-11.0 [facility] Serum or plasma urea nitroge n measurement (mass/volume)Ordered By: Familia Manriquez on 10-24-2024 Urea nitrogen [Mass/Vol] 8 mg/dL 4-19 [facility] Sodium levelOrdered By: Zac Manriquez on 10-24-2024 Sodium [Moles/Vol] 132 mmol/L Low 133-145 [facility] Absolute lymphocyte countOrd ered By: Axel Lockwood on 10-23-2024 Lymphocytes Auto (Unsp spec) [#/Vol] 1.51 10*3/uL 0.83-4.51 [facility] Absolute neutrophil countOrd ered By: Axel Lockwood on 10-23-2024 Neutrophils (Bld) [#/Vol] 8.0 10*3/uL High 2.0-7.7 [facility] Automated lymphocyte count a s percentage of total leukocytesOrdered By: Axel Lockwood on 10-23-2024 Lymphocytes/100 WBC Auto (Unsp spec) 13.7 % Low 19-41 [facility] Basic Metabolic Profile (BMP )on 10-23-2024 BUN/CRE 10.2 RATIO Normal 10-20 [facility] Comment on above: Performed By: #### L 500.2500 #### [facility] [address] [place], [address] Calcium [Mass/Vol] 8.9 mg/dL Normal 7.6-11.0 [facility] Comment on above: Performed By: #### L 500.2500 #### [facility] [address] [place], [address] Chloride [Moles/Vol] 95 mmol/L Low 98-108 [facility] Comment on above: Performed By: #### L 500.2500 #### [facility] [address] [place], [address] CO2 [Moles/Vol] 22.0 mmol/L Normal 21.0-32.0 [facility] Comment on above: Performed By: #### L 500.2500 #### [facility] [address] [place], [address] Creatinine [Mass/Vol] 0.92 mg/dL Normal 0.70-1.20 [facility] Comment on above: Performed By: #### L 500.2500 #### [facility] [address] [place], [address] ECRCL 41.59 ml/min Low 50-250 [facility] Comment on above: Performed By: #### L 500.2500 #### [facility] [address] [place], [address] GAP 12 Normal 5-15 [facility] Comment on above: Performed By: #### L [id number] #### [facility] [address] [place], [address] GFR/1.73 sq M.predicted among non-blacks MDRD (S/P/Bld) [Vol rate/Area] 61 mL/min/{1.73_m2} Normal >60 [facility] Comment on above: Result Comment: mL/m in/1.73m2 CKD-EPI Creatinine Equation (2020) Performed By: #### L 500.2500 #### [facility] [address] [place], [address] Glucose [Mass/Vol] 240 mg/dL High 70-99 [facility] Comment on above: Performed By: #### L [id number] #### [facility] [address] [place], [address] Potassium [Moles/Vol] 4.4 mmol/L Normal 3.3-5.1 [facility] Comment on above: Performed By: #### L 500.2500 #### [facility] [address] [place], [address] Sodium [Moles/Vol] 129 mmol/L Low 133-145 [facility] Comment on above: Performed By: #### L 500.2500 #### [facility] [address] [place], [address] Urea nitrogen [Mass/Vol] 9 mg/dL Normal 4-19 [facility] Comment on above: Performed By: #### L [id number] #### [facility] [address] [place], [address] BUN/CRE 11.3 RATIO Normal 10-20 [facility] Comment on above: Performed By: #### L 501.080 #### [facility] [address] [place], [address] Calcium [Mass/Vol] 9.0 mg/dL Normal 7.6-11.0 [facility] Comment on above: Performed By: #### L 501.080 #### [facility] [address] [place], [address] Chloride [Moles/Vol] 94 mmol/L Low 98-108 [facility] Comment on above: Performed By: #### L 501.080 #### [facility] [address] [place], [address] CO2 [Moles/Vol] 21.8 mmol/L Normal 21.0-32.0 [facility] Comment on above: Performed By: #### L 501.080 #### [facility] [address] [place], [address] Creatinine [Mass/Vol] 0.96 mg/dL Normal 0.70-1.20 [facility] Comment on above: Performed By: #### L 501.080 #### [facility] [address] [place], [address] ECRCL 39.85 ml/min Low 50-250 [facility] Comment on above: Performed By: #### L 501.080 #### [facility] [address] [place], [address] GAP 13 Normal 5-15 [facility] Comment on above: Performed By: #### L 501.080 #### [facility] [address] [place], [address] GFR/1.73 sq M.predicted among non-blacks MDRD (S/P/Bld) [Vol rate/Area] 58 mL/min/{1.73_m2} Low >60 [facility] Comment on above: Result Comment: mL/m in/1.73m2 CKD-EPI Creatinine Equation (2020) Performed By: #### L 501.080 #### [facility] [address] [place], [address] Glucose [Mass/Vol] 168 mg/dL High 70-99 [facility] Comment on above: Performed By: #### L 501.080 #### [facility] [address] [place], [address] Potassium [Moles/Vol] 4.0 mmol/L Normal 3.3-5.1 [facility] Comment on above: Performed By: #### L 501.080 #### [facility] [address] [place], [address] Sodium [Moles/Vol] 128 mmol/L Low 133-145 [facility] Comment on above: Performed By: #### L 501.080 #### [facility] [address] [place], [address] Urea nitrogen [Mass/Vol] 11 mg/dL Normal 4-19 [facility] Comment on above: Performed By: #### L 501.080 #### [facility] [address] [place], [address] Basophil percentageOrdered B y: Axel Lockwood on 10-23-2024 Basophils/100 WBC (Bld) 0.5 % 0-1 [facility] Bedside Glucoseon 10-23-2024 FINGERSTICK GLU 195 mg/dL High 74-106 [facility] Comment on above: Result Comment: RAKESH LONGO OF PATIENT CARE PER NURSING PROTOCOL Performed By: #### L 501.080 #### [facility] [address] [place], [address] FINGERSTICK GLU 206 mg/dL High 74-106 [facility] Comment on above: Result Comment: RAKESH GEMENT OF PATIENT CARE PER NURSING PROTOCOL Performed By: #### L 501.080 #### [facility] [address] [place], [address] FINGERSTICK GLU 242 mg/dL High 74-106 [facility] Comment on above: Result Comment: RAKESH GEMENT OF PATIENT CARE PER NURSING PROTOCOL Performed By: #### L 501.080 #### [facility] [address] [place], [address] FINGERSTICK GLU 170 mg/dL High 74-106 [facility] Comment on above: Result Comment: RAKESH GEMENT OF PATIENT CARE PER NURSING PROTOCOL Performed By: #### L 501.080 #### [facility] [address] [place], [address] CBC W/Diff, Automatedon 05-3 -2024 Absolute Lymph 1.51 X10 3/uL Normal 0.83-4.51 [facility] Comment on above: Performed By: #### L 501.080 #### [facility] [address] [place], [address] Absolute Neut 8.0 X10 3/uL High 2.0-7.7 [facility] Comment on above: Performed By: #### L 501.080 #### [facility] [address] [place], [address] Basophils/100 WBC (Bld) 0.5 % Normal 0-1 [facility] Comment on above: Performed By: #### L 501.080 #### [facility] [address] [place], [address] Eosinophils/100 WBC (Bld) 0.5 % Normal 0-5 [facility] Comment on above: Performed By: #### L 501.080 #### [facility] [address] [place], [address] Erythrocyte distribution width (RBC) [Ratio] 12.5 % Normal 11.6-14.6 [facility] Comment on above: Performed By: #### L 501.080 #### [facility] [address] [place], [address] Hematocrit (Bld) [Volume fraction] 31.5 % Low 37-47 [facility] Comment on above: Performed By: #### L 501.080 #### [facility] [address] [place], [address] Hemoglobin (Bld) [Mass/Vol] 10.9 g/dL Low 12.0-15.0 [facility] Comment on above: Performed By: #### L 501.080 #### [facility] [address] [place], [address] IG% 0.800 Normal 0.0-0.9 [facility] Comment on above: Result Comment: IG% - Immature Granulocytes (promyelocytes, myelocytes and metamyelocytes) > 1% indicates that a LEFT SHIFT is Present. Performed By: #### L 501.080 #### [facility] [address] [place], [address] Lymphocytes/100 WBC (Bld) 13.7 % Low 19-41 [facility] Comment on above: Performed By: #### L 501.080 #### [facility] [address] [place], [address] MCH (RBC) [Entitic mass] 30.1 pg Normal 27.0-32.0 [facility] Comment on above: Performed By: #### L 501.080 #### [facility] [address] [place], [address] MCHC (RBC) [Mass/Vol] 34.6 g/dL Normal 32-36 [facility] Comment on above: Performed By: #### L 501.080 #### [facility] [address] [place], [address] MCV (RBC) [Entitic vol] 87.0 fL Normal 81-99 [facility] Comment on above: Performed By: #### L 501.080 #### [facility] [address] [place], [address] Monocytes/100 WBC (Bld) 12.0 % High 0-10 [facility] Comment on above: Performed By: #### L 501.080 #### [facility] [address] [place], [address] Neutrophils/100 WBC (Bld) 72.5 % High 47-70 [facility] Comment on above: Performed By: #### L 501.080 #### [facility] [address] [place], [address] Nucleated RBC (Bld) [#/Vol] 0 10*3/uL Normal 0-5 [facility] Comment on above: Performed By: #### L 501.080 #### [facility] [address] [place], [address] Platelet mean volume (Bld) [Entitic vol] 10.0 fL Normal 6.2-12.0 [facility] Comment on above: Performed By: #### L 501.080 #### [facility] [address] [place], [address] Platelets (Bld) [#/Vol] 376 10*3/uL Normal 150-450 [facility] Comment on above: Performed By: #### L 501.080 #### [facility] [address] [place], [address] RBC (Bld) [#/Vol] 3.62 10*6/uL Low 4.2-5.4 [facility] Comment on above: Performed By: #### L 501.080 #### [facility] [address] [place], [address] RDW SD 40.0 fl Normal 35.1-43.9 [facility] Comment on above: Performed By: #### L 501.080 #### [facility] [address] [place], [address] WBC (Bld) [#/Vol] 11.0 10*3/uL Normal 4.4-11.0 [facility] Comment on above: Performed By: #### L 501.080 #### [facility] [address] [place], [address] Eosinophil percentageOrdered By: Axel Lockwood on 10-23-2024 Eosinophils/100 WBC (Bld) 0.5 % 0-5 [facility] Erythrocyte distribution wid th ratioOrdered By: Axel Lockwood on 10-23-2024 Erythrocyte distribution width (RBC) [Ratio] 12.5 % 11.6-14.6 [facility] Erythrocyte distribution wid th standard deviationOrdered By: Axel Lockwood on 10-23-2024 Erythrocyte distribution width (RBC) [Ratio] 40.0 fl 35.1-43.9 [facility] Hematocrit Auto (Bld) [Volum e fraction]Ordered By: Axel Lockwood on 10-23-2024 Hematocrit (Bld) [Volume fraction] 31.5 % Low 37-47 [facility] Hemoglobin measurementOrdere d By: Axel Lockwood on 10-23-2024 Hemoglobin (Bld) [Mass/Vol] 10.9 g/dL Low 12.0-15.0 [facility] Immature granulocytes/100 WB C Auto (Bld)Ordered By: Axel Lockwood on 10-23-2024 Immature granulocytes/100 WBC (Bld) 0.800 % 0.0-0.9 [facility] Comment on above: IG% - Immature Granu locytes (promyelocytes, myelocytes and metamyelocytes) > 1% indicates that a LEFT SHIFT is Present. MCV (mean corpuscular volume ) determinationOrdered By: Axel Lockwood on 10-23-2024 MCV (RBC) [Entitic vol] 87.0 fL 81-99 [facility] Mean corpuscular hemoglobin (MCH) determinationOrdered By: Axel Lockwood on 10-23-2024 MCH (RBC) [Entitic mass] 30.1 pg 27.0-32.0 [facility] Mean corpuscular hemoglobin concentration (MCHC) determinationOrdered By: Axel Lockwood on 10-23-2024 MCHC (RBC) [Mass/Vol] 34.6 g/dL 32-36 [facility] Mean platelet volume determi nationOrdered By: Axel Lockwood on 10-23-2024 Platelet mean volume (Bld) [Entitic vol] 10.0 fL 6.2-12.0 [facility] Monocyte percentageOrdered B y: Axel Lockwood on 10-23-2024 Monocytes/100 WBC (Bld) 12.0 % High 0-10 [facility] Neutrophil percentageOrdered By: Axel Lockwood on 10-23-2024 Neutrophils/100 WBC (Bld) 72.5 % High 47-70 [facility] Nucleated red blood cell per centageOrdered By: Axel Lockwood on 10-23-2024 Nucleated RBC/100 WBC (Bld) [Ratio] 0 % 0-5 [facility] Platelet countOrdered By: Aurea Lockwood on 10-23-2024 Platelets (Bld) [#/Vol] 376 10*3/uL 150-450 [facility] RBC Auto (Bld) [#/Vol]Ordere d By: Axel Lockwood on 10-23-2024 RBC (Bld) [#/Vol] 3.62 10*6/uL Low 4.2-5.4 [facility] White blood cell (WBC) count Ordered By: Axel Lockwood on 10-23-2024 WBC (Bld) [#/Vol] 11.0 10*3/uL 4.4-11.0 [facility] 12 Lead EKGon 10-22-2024 12 Lead EKG [facility] [address] [place] [address] 12 Lead EKG 10/22/24 1753 MR#: [id number] Acct: [id number] Name: CHELSEA MOODY Rep #: [id number] : 1940 83 From: Osman Wright MD Attending Dr: Dr. Familia Manriquez DO Status : DIS IN Ordering Dr: Jony [...] rhythm Normal ECG Confirmed by Osman Wright ([id number]), assistant film editor LAURY PERSAUD ([id number]) on 10/25/2024 10:50:00 AM Referred By: Confirmed By: Osman Wright 10/25/24 1050 Date Osman Wright MD CC: Dr. Familia Manriquez DO; Dr. Angela High MD; Dr. Jony Lambert DO Signed Normal [facility] Absolute lymphocyte countOrd ered By: Jony Lambert on 10-22-2024 Lymphocytes Auto (Unsp spec) [#/Vol] 1.59 10*3/uL 0.83-4.51 [facility] Absolute lymphocyte countOrd ered By: Sonali Haro on 10-22-2024 Lymphocytes Auto (Unsp spec) [#/Vol] 1.48 10*3/uL 0.83-4.51 [facility] Absolute neutrophil countOrd ered By: Jony Lambert on 10-22-2024 Neutrophils (Bld) [#/Vol] 11.4 10*3/uL High 2.0-7.7 [facility] Absolute neutrophil countOrd ered By: Sonali Haro on 10-22-2024 Neutrophils (Bld) [#/Vol] 10.9 10*3/uL High 2.0-7.7 [facility] Anion gap in Serum or Plasma Ordered By: Remus Lambert on 10-22-2024 Anion gap [Moles/Vol] 16 mmol/L High 10-07 [facility] Anion gap in Serum or Plasma Ordered By: Sonali Haro on 10-22-2024 Anion gap [Moles/Vol] 15 mmol/L 10-07 [facility] Automated lymphocyte count a s percentage of total leukocytesOrdered By: Jony Lambert on 10-22-2024 Lymphocytes/100 WBC Auto (Unsp spec) 10.8 % Low [facility] Automated lymphocyte count a s percentage of total leukocytesOrdered By: Sonali Haro on 10-22-2024 Lymphocytes/100 WBC Auto (Unsp spec) 10.7 % Low [facility] BUN/creatinine ratioOrdered By: Jony Lambert on 10-22-2024 Urea nitrogen/Creatinine [Mass ratio] 11.5 mg/mg 03-14 [facility] BUN/creatinine ratioOrdered By: Sonali Haro on 10-22-2024 Urea nitrogen/Creatinine [Mass ratio] 11.8 mg/mg 03-14 [facility] Basic Metabolic Profile (BMP )on 10-22-2024 BUN/CRE 11.5 RATIO Normal 03-14 [facility] Comment on above: Performed By: #### L 100.0100, L500.2500 #### [facility] [address] [place], [place], [address] ECRCL 30.51 ml/min Low 50-250 [facility] Comment on above: Performed By: #### L 100.0100, L500.2500 #### [facility] [address] [place], [address] GAP 16 High 10-07 [facility] Comment on above: Performed By: #### L 100.0100, L500.2500 #### [facility] [address] [place], [address] Potassium [Moles/Vol] 4.3 mmol/L Normal 3.3-5.1 [facility] Comment on above: Performed By: #### L 100.0100, L500.2500 #### [facility] [address] [place], [address] Basophil percentageOrdered B y: Remus Ungkrystle on 10-22-2024 Basophils/100 WBC (Bld) 0.4 % 0-1 [facility] Glucoseon 10-22-2024 FINGERSTICK GLU 199 mg/dL High 74-106 [facility] Comment on above: Result Comment: RAKESH LONGO OF PATIENT CARE PER NURSING PROTOCOL Performed By: #### L 501.080 #### [facility] [address] [place], [address] Bilirubin Test strip Ql (U)O rdered By: Jony Lambert on 10-22-2024 Bilirubin Ql (U) Negative Negative [facility] Blood manual differential co mment interpretation (narrative result)Ordered By: Jony Lambert on 10-22-2024 Manual differential comment Uziel (Bld) [Interp] SCANNED [facility] CBC W/Diff, Automatedon 09-25 PLT EST ADEQUATE Normal ADEQ [facility] Comment on above: Performed By: #### L 100.0100, L500.2500 #### [facility] [address] [place], [address] SMEAR COMMENT SCANNED Normal [facility] Comment on above: Performed By: #### L 100.0100, L500.2500 #### [facility] [address] [place], [address] CTA Head AND Neck W/ Contras ton 10-22-2024 CTA Head AND Neck W/ Contrast [facility] Imaging Services [address] [place] [address] CTA Head AND Neck W/ Contrast MR#: [id number] Acct: [id number] Name: CHELSEA MOODY Rep #: [id number] : 1940 F 83 From: Scott Lee MD PCP: Dr. Angela High MD Status: REG CLI Study: CTA Head AND Neck W/ Contrast Date of Exam: Exam# [id number] Ordering Dr: Sonali Haro PROCEDURE: CTA HEAD [...] RIGHT Vertebral: Patent. LEFT Vertebral: Patent. Anatomy: [place] anatomy is normal. Aneurysm or [...] characterization with ultrasound is recommended. Reading Location: [id number] CC: DAVI Green; Dr. Angela High MD Tumbler Drier Operator: Signed Normal [facility] Carbon dioxide, total [Moles /volume] in Central venous bloodOrdered By: Jony Lambert on 10-22-2024 CO2 [Moles/Vol] 20.7 mmol/L Low 21.0-32.0 [facility] Comment on above: Performed By: #### L 100.0100, L500.2500 #### [facility] [address] [place], [address] Carbon dioxide, total [Moles /volume] in Central venous bloodOrdered By: Sonali Haro on 10-22-2024 CO2 [Moles/Vol] 18.7 mmol/L Low 21.0-32.0 [facility] Chloride assayOrdered By: Anne Lambert on 10-22-2024 Chloride [Moles/Vol] 82 mmol/L Low 98-108 [facility] Comment on above: Performed By: #### L 100.0100, L500.2500 #### [facility] [address] [place], [address] Chloride assayOrdered By: Aries Haro on 10-22-2024 Chloride [Moles/Vol] 85 mmol/L Low 98-108 [facility] Emergency Department Summary on 10-22-2024 Emergency Department Summary [facility] Medical Records Department [address] [place] [address] Emergency Department Summary 10/22/24 MR#: [id number] Acct: [id number] Name: CHELSEA MOODY Rep #: [id number] : 1940 83 From: Jony Lambert DO PCP: Dr. Angela High MD Status:ADM IN Location: [place] [address] HPI History of Present Illness Chief Complaint: [...] is eating less but still drinking fluids [facility] Medical History (Updated 10/22/24 @ [...] normal Ch (more content not included)... Normal [facility] Eosinophil percentageOrdered By: Jony Lambert on 10-22-2024 Eosinophils/100 WBC (Bld) 0.1 % 0-5 [facility] Eosinophil percentageOrdered By: Sonali Haro on 10-22-2024 Eosinophils/100 WBC (Bld) 0.2 % 0-5 [facility] Erythrocyte distribution wid th ratioOrdered By: Jony Lambert on 10-22-2024 Erythrocyte distribution width (RBC) [Ratio] 12.6 % 11.6-14.6 [facility] Erythrocyte distribution wid th standard deviationOrdered By: Jony Lambert on 10-22-2024 Erythrocyte distribution width (RBC) [Ratio] 40.0 fl 35.1-43.9 [facility] Glomerular filtration rate ( GFR) estimation/1.73 sq m using serum, plasma, or whole bOrdered By: Jony Moonkrystle on 10-22-2024 GFR/1.73 sq M.predicted among non-blacks MDRD (S/P/Bld) [Vol rate/Area] 42 mL/min/{1.73_m2} Low >60 [facility] Comment on above: mL/min/1.73m2 CKD-EP I Creatinine Equation (2020) Result Comment: mL/m in/1.73m2 CKD-EPI Creatinine Equation (2020) Performed By: #### L 100.0100, L500.2500 #### [facility] [address] [place], [place], [address] Glomerular filtration rate ( GFR) estimation/1.73 sq m using serum, plasma, or whole bOrdered By: Sonali Haro on 10-22-2024 GFR/1.73 sq M.predicted among non-blacks MDRD (S/P/Bld) [Vol rate/Area] 45 mL/min/{1.73_m2} Low >60 [facility] Comment on above: mL/min/1.73m2 CKD-EP I Creatinine Equation (2020) H AND P Exam - [place] 10-22-2024 H&P Exam - Hospitalist [facility] Medical Records Department [address] [place] [address] H P Exam - Hospitalist 10/22/242010 MR#: [id number] Acct: [id number] Name: CHELSEA MOODY Ravinder Rep #: [id number] : 1940 83 From: Axel Lockwood MD PCP: Dr. Angela High MD Status:ADM IN Location: [address] HPI - General General Date of Admission: [...] she had a stroke back in August. [facility] Medical History Wears glasses Wears dentures Bruising [...] No breakd (more content not included)... Normal [facility] Hematocrit Auto (Bld) [Volum e fraction]Ordered By: Jony Lambert on 10-22-2024 Hematocrit (Bld) [Volume fraction] 32.5 % Low 37-47 [facility] Hematocrit Auto (Bld) [Volum e fraction]Ordered By: Sonali Haro on 10-22-2024 Hematocrit (Bld) [Volume fraction] 33.8 % Low 37-47 [facility] Hemoglobin measurementOrdere d By: Jony Lambert on 10-22-2024 Hemoglobin (Bld) [Mass/Vol] 11.3 g/dL Low 12.0-15.0 [facility] Hemoglobin measurementOrdere d By: Sonali Haro on 10-22-2024 Hemoglobin (Bld) [Mass/Vol] 11.7 g/dL Low 12.0-15.0 [facility] Immature granulocytes/100 WB C Auto (Bld)Ordered By: Jony Lambert on 10-22-2024 Immature granulocytes/100 WBC (Bld) 0.600 % 0.0-0.9 [facility] Comment on above: IG% - Immature Granu locytes (promyelocytes, myelocytes and metamyelocytes) > 1% indicates that a LEFT SHIFT is Present. Ketones Test strip Ql (U)Ord ered By: Jony Lambert on 10-22-2024 Ketones Ql (U) Negative Negative [facility] MCV (mean corpuscular volume ) determinationOrdered By: Jony Lambert on 10-22-2024 MCV (RBC) [Entitic vol] 87.1 fL 81-99 [facility] MCV (mean corpuscular volume ) determinationOrdered By: Sonali Haro on 10-22-2024 MCV (RBC) [Entitic vol] 86.9 fL 81-99 [facility] Mean corpuscular hemoglobin (MCH) determinationOrdered By: Jony Lambert on 10-22-2024 MCH (RBC) [Entitic mass] 30.3 pg 27.0-32.0 [facility] Mean corpuscular hemoglobin (MCH) determinationOrdered By: Sonali Haro on 10-22-2024 MCH (RBC) [Entitic mass] 30.1 pg 27.0-32.0 [facility] Mean corpuscular hemoglobin concentration (MCHC) determinationOrdered By: Jony Lambert on 10-22-2024 MCHC (RBC) [Mass/Vol] 34.8 g/dL -36 [facility] Mean corpuscular hemoglobin concentration (MCHC) determinationOrdered By: Sonali Haro on 10-22-2024 MCHC (RBC) [Mass/Vol] 34.6 g/dL -36 [facility] Mean platelet volume determi nationOrdered By: Jony Lambert on 10-22-2024 Platelet mean volume (Bld) [Entitic vol] 10.0 fL 6.2-12.0 [facility] Mean platelet volume determi nationOrdered By: Sonali Haro on 10-22-2024 Platelet mean volume (Bld) [Entitic vol] 9.8 fL 6.2-12.0 [facility] Microscopic analysis of urin e for red blood cells (RBC)Ordered By: Jony Lambert on 10-22-2024 Microscopic analysis of urine for red blood cells (RBC) 0-5 SEEN /hpf 0-5 [facility] Monocyte percentageOrdered B y: Jony Lambert on 10-22-2024 Monocytes/100 WBC (Bld) 10.3 % High 0-10 [facility] Monocyte percentageOrdered B y: Sonali Haro on 10-22-2024 Monocytes/100 WBC (Bld) 9.3 % 0-10 [facility] Mucus LM Ql (Urine sed)Order ed By: Jony Lambert on 10-22-2024 Mucus Ql (Urine sed) 0 SEEN /hpf [facility] Neutrophil percentageOrdered By: Jony Lambert on 10-22-2024 Neutrophils/100 WBC (Bld) 77.8 % High 47-70 [facility] Neutrophil percentageOrdered By: Sonali Haro on 10-22-2024 Neutrophils/100 WBC (Bld) 78.8 % High 47-70 [facility] Nitrite Test strip Ql (U)Ord ered By: Jony Lambert on 10-22-2024 Nitrite Ql (U) Negative Negative [facility] Nucleated red blood cell per centageOrdered By: Jony Lambert on 10-22-2024 Nucleated RBC/100 WBC (Bld) [Ratio] 0 % 0-5 [facility] Platelet countOrdered By: Anne Lambert on 10-22-2024 Platelets (Bld) [#/Vol] 399 10*3/uL 150-450 [facility] Platelet countOrdered By: Aries Haro on 10-22-2024 Platelets (Bld) [#/Vol] 397 10*3/uL 150-450 [facility] Platelet estimateOrdered By: Jony Lambert on 10-22-2024 Platelets LM Ql (Bld) ADEQUATE ADEQ [facility] Potassium measurement (mass/ volume)Ordered By: Jony Lambert on 10-22-2024 Potassium (Unsp spec) [Mass/Vol] 4.3 mmol/L 3.3-5.1 [facility] Protein Test strip Ql (U)Ord ered By: Jony Lambert on 10-22-2024 Protein Ql (U) 15 mg/dl High Negative [facility] RBC Auto (Bld) [#/Vol]Ordere d By: Jony Lambert on 10-22-2024 RBC (Bld) [#/Vol] 3.73 10*6/uL Low 4.2-5.4 [facility] RBC Auto (Bld) [#/Vol]Ordere d By: Sonali Haro on 10-22-2024 RBC (Bld) [#/Vol] 3.89 10*6/uL Low 4.2-5.4 [facility] Serum creatinine measurement (mass/volume)Ordered By: Jony Lambert on 10-22-2024 Creatinine [Mass/Vol] 1.26 mg/dL High 0.70-1.20 [facility] Comment on above: Performed By: #### L 100.0100, L500.2500 #### [facility] [address] [place], [address] Serum creatinine measurement (mass/volume)Ordered By: Sonali Haro on 10-22-2024 Creatinine [Mass/Vol] 1.19 mg/dL 0.70-1.20 [facility] Serum glucose measurement (m ass/volume)Ordered By: Jony Lambert on 10-22-2024 Glucose [Mass/Vol] 160 mg/dL High 70- [facility] Comment on above: Performed By: #### L 100.0100, L500.2500 #### [facility] [address] [place], [address] Serum glucose measurement (m ass/volume)Ordered By: Sonali Haro on 10-22-2024 Glucose [Mass/Vol] 165 mg/dL High 70-99 [facility] Serum or plasma calcium alfred urement (mass/volume)Ordered By: Jony Lambert on 10-22-2024 Calcium [Mass/Vol] 9.2 mg/dL Normal 7.6-11.0 [facility] Comment on above: Performed By: #### L 100.0100, L500.2500 #### [facility] [address] [facility] [address] Serum or plasma calcium alfred urement (mass/volume)Ordered By: Sonali Haro on 10-22-2024 Calcium [Mass/Vol] 9.4 mg/dL 7.6-11.0 [facility] Serum or plasma urea nitroge n measurement (mass/volume)Ordered By: Jony Lambert on 10-22-2024 Urea nitrogen [Mass/Vol] 15 mg/dL Normal - [facility] Comment on above: Performed By: #### L 100.0100, L500.2500 #### [facility] [address] [facility] [address] [facility] [facility] [address] Serum or plasma urea nitroge n measurement (mass/volume)Ordered By: Sonali Haro on 10-22-2024 Urea nitrogen [Mass/Vol] 14 mg/dL - [facility] Sodium levelOrdered By: Moon Lambert on 10-22-2024 Sodium [Moles/Vol] 119 mmol/L Low 133-145 [facility] Comment on above: Critical Result(s) C alled at: by: Results read back by same. Critical Result(s) C alled to: MARTHA CARLISLE (BMS.BVS) by Quin Results read back by same. Result Comment: Crit ical Result(s) Called at: by:??Results read back by same. Performed By: #### L 100.0100, L500.2500 #### [facility] [address] [place], [address] Squamous epithelial cells de tection in urine sediment by light microscopyOrdered By: Jony Lambert on 10-22-2024 Epithelial cells.squamous LM Ql (Urine sed) 0 SEEN /hpf 5-10 [facility] Surgery Visit Reporton 10-22 Surgery Visit Report [facility] [address] [place] [address] OFFICE VISIT Date of Service: 10/22/24 MR#: [id number] Acct: [id number] Name: CHELSEA MOODY Rep #: [id number] : 1940 Provider: DAVI Green Age/Sex: 83/F Location[facility] Status: Signed Intake Vital Signs 09/01/24 14:52 [...] disease I77.9 Difficulty swallowing R13.10 Weakness R53.1 [facility] Medical History (Updated 10/22/24 @ 14:04 by [...] Acute Comment: (more content not included)... Normal [facility] Urinalysis, Completeon 10-22 RBC 0-5 SEEN Normal 0-5 [facility] Comment on above: Order Comment: CLEAN CATCH Performed By: #### L 400.0001 #### [facility] [address] [place], [address] WBC 0-5 SEEN Normal 0-5 [facility] Comment on above: Order Comment: CLEAN CATCH Performed By: #### L 400.0001 #### [facility] [address] [place], [address] BACTERIA 0 SEEN Normal None Seen [facility] Comment on above: Order Comment: CLEAN CATCH Performed By: #### L 400.0001 #### [facility] [address] [place], [address] EPI,SQUAMOUS 0 SEEN Normal 5-10 [facility] Comment on above: Order Comment: CLEAN CATCH Performed By: #### L 400.0001 #### [facility] [address] [place], [address] Mucus Ql (Urine sed) 0 SEEN Normal [facility] Comment on above: Order Comment: CLEAN CATCH Performed By: #### L 400.0001 #### [facility] [address] [place], [address] Urine clarityOrdered By: Emily us Fausto on 10-22-2024 Clarity (U) Clear Clear [facility] Urine color determinationOrd ered By: Jony Lambert on 10-22-2024 Color (U) Straw Yellow [facility] Urine glucose detectionOrder ed By: Jony Lambert on 10-22-2024 Glucose Ql (U) Normal mg/dl Normal [facility] Urine leukocyte esterase det ection by dipstickOrdered By: Jony Lambert on 10-22-2024 Leukocyte esterase Test strip Ql (U) Negative Negative [facility] Urine pHOrdered By: Jony Un gur on 10-22-2024 pH (U) 6.0 [pH] 5.0 - 8.0 [facility] Urine sediment bacteria coun t by microscopy (number/high power field)Ordered By: Jony Lambert on 10-22-2024 Bacteria LM.HPF (Urine sed) [#/Area] 0 /[HPF] None Seen [facility] Urine specific gravity measu rementOrdered By: Jony Lambert on 10-22-2024 Specific gravity (U) [Rel density] 1.005 1.002-1.030 [facility] Urine urobilinogen measureme ntOrdered By: Remus Lambert on 10-22-2024 Urobilinogen Ql (U) Normal mg/dl Normal [facility] White blood cell (WBC) count Ordered By: Jony Lambert on 10-22-2024 WBC (Bld) [#/Vol] 14.7 10*3/uL High 4.4-11.0 [facility] White blood cell (WBC) count Ordered By: Sonali Haro on 10-22-2024 WBC (Bld) [#/Vol] 13.9 10*3/uL High 4.4-11.0 [facility] White blood cell countOrdere d By: Jony Lambert on 10-22-2024 White blood cell count 0-5 SEEN /hpf 0-5 [facility] CNOVon 10-11-2024 CNOV Office Visit (INTMWS ) CHELSEA MOODY ([id number]) 1940 F IPA Date Time Provider Department [...] mL) O (more content not included)... Normal [facility] Absolute lymphocyte countOrd ered By: Ugo Rogel on 10-06-2024 Lymphocytes Auto (Unsp spec) [#/Vol] 1.41 10*3/uL 0.83-4.51 [facility] Absolute neutrophil countOrd ered By: Ugo Rogel on 10-06-2024 Neutrophils (Bld) [#/Vol] 11.4 10*3/uL High 2.0-7.7 [facility] Automated lymphocyte count a s percentage of total leukocytesOrdered By: Ugo Rogel on 10-06-2024 Lymphocytes/100 WBC Auto (Unsp spec) 10.0 % Low 19-41 [facility] Basophil percentageOrdered B y: Ugo Rogel on 10-06-2024 Basophils/100 WBC (Bld) 0.2 % 0-1 [facility] Glucoseon 10-06-2024 FINGERSTICK GLU 208 mg/dL High 74-106 [facility] Comment on above: Result Comment: RAKESH LONGO OF PATIENT CARE PER NURSING PROTOCOL Performed By: #### L 501.080 #### [facility] [address] [place], [address] FINGERSTICK GLU 301 mg/dL High 74-106 [facility] Comment on above: Result Comment: RAKESH GEMENT OF PATIENT CARE PER NURSING PROTOCOL Performed By: #### L 501.080 #### [facility] [address] [place], [address] FINGERSTICK GLU 373 mg/dL High 74-106 [facility] Comment on above: Result Comment: RAKESH GEMENT OF PATIENT CARE PER NURSING PROTOCOL Performed By: #### L 501.080 #### [facility] [address] [place], [address] CBC W/Diff, Automatedon 05-1 -2024 Absolute Lymph 1.41 X10 3/uL Normal 0.83-4.51 [facility] Comment on above: Performed By: #### L 501.080 #### [facility] [address] [place], [address] Absolute Neut 11.4 X10 3/uL High 2.0-7.7 [facility] Comment on above: Performed By: #### L 501.080 #### [facility] [address] [place], [address] Basophils/100 WBC (Bld) 0.2 % Normal 0-1 [facility] Comment on above: Performed By: #### L 501.080 #### [facility] [address] [place], [address] Eosinophils/100 WBC (Bld) 0.1 % Normal 0-5 [facility] Comment on above: Performed By: #### L 501.080 #### [facility] [address] [place], [address] Erythrocyte distribution width (RBC) [Ratio] 13.4 % Normal 11.6-14.6 [facility] Comment on above: Performed By: #### L 501.080 #### [facility] [address] [place], [address] Hematocrit (Bld) [Volume fraction] 30.5 % Low 37-47 [facility] Comment on above: Performed By: #### L 501.080 #### [facility] [address] [place], [address] Hemoglobin (Bld) [Mass/Vol] 10.6 g/dL Low 12.0-15.0 [facility] Comment on above: Performed By: #### L 501.080 #### [facility] [address] [place], [address] IG% 0.600 Normal 0.0-0.9 [facility] Comment on above: Result Comment: IG% - Immature Granulocytes (promyelocytes, myelocytes and metamyelocytes) > 1% indicates that a LEFT SHIFT is Present. Performed By: #### L 501.080 #### [facility] [address] [place], [address] Lymphocytes/100 WBC (Bld) 10.0 % Low 19-41 [facility] Comment on above: Performed By: #### L 501.080 #### [facility] [address] [place], [address] MCH (RBC) [Entitic mass] 30.7 pg Normal 27.0-32.0 [facility] Comment on above: Performed By: #### L 501.080 #### [facility] [address] [place], [address] MCHC (RBC) [Mass/Vol] 34.8 g/dL Normal 32-36 [facility] Comment on above: Performed By: #### L 501.080 #### [facility] [address] [place], [address] MCV (RBC) [Entitic vol] 88.4 fL Normal 81-99 [facility] Comment on above: Performed By: #### L 501.080 #### [facility] [address] [place], [address] Monocytes/100 WBC (Bld) 8.5 % Normal 0-10 [facility] Comment on above: Performed By: #### L 501.080 #### [facility] [address] [place], [address] Neutrophils/100 WBC (Bld) 80.6 % High 47-70 [facility] Comment on above: Performed By: #### L 501.080 #### [facility] [address] [place], [address] Nucleated RBC (Bld) [#/Vol] 0 10*3/uL Normal 0-5 [facility] Comment on above: Performed By: #### L 501.080 #### [facility] [address] [place], [address] Platelet mean volume (Bld) [Entitic vol] 10.9 fL Normal 6.2-12.0 [facility] Comment on above: Performed By: #### L 501.080 #### [facility] [address] [place], [address] Platelets (Bld) [#/Vol] 301 10*3/uL Normal 150-450 [facility] Comment on above: Performed By: #### L 501.080 #### [facility] [address] [place], [address] RBC (Bld) [#/Vol] 3.45 10*6/uL Low 4.2-5.4 [facility] Comment on above: Performed By: #### L 501.080 #### [facility] [address] [place], [address] RDW SD 43.5 fl Normal 35.1-43.9 [facility] Comment on above: Performed By: #### L 501.080 #### [facility] [address] [place], [address] WBC (Bld) [#/Vol] 14.2 10*3/uL High 4.4-11.0 [facility] Comment on above: Performed By: #### L 501.080 #### [facility] [address] [place], [address] Eosinophil percentageOrdered By: Ugo Rogel on 10-06-2024 Eosinophils/100 WBC (Bld) 0.1 % 0-5 [facility] Erythrocyte distribution wid th ratioOrdered By: Ugo Rogel on 10-06-2024 Erythrocyte distribution width (RBC) [Ratio] 13.4 % 11.6-14.6 [facility] Erythrocyte distribution wid th standard deviationOrdered By: Ugotracee Rogel on 10-06-2024 Erythrocyte distribution width (RBC) [Ratio] 43.5 fl 35.1-43.9 [facility] Glucose measurement at [facility] deOrdered By: Ugo Rogel on 10-06-2024 Glucose [Mass/Vol] 208 mg/dL High 74-106 [facility] Comment on above: MANAGEMENT OF PATIEN T CARE PER NURSING PROTOCOL Hematocrit Auto (Bld) [Volum e fraction]Ordered By: Ugo Rogel on 10-06-2024 Hematocrit (Bld) [Volume fraction] 30.5 % Low 37-47 [facility] Hemoglobin measurementOrdere d By: Ugo Rogel on 10-06-2024 Hemoglobin (Bld) [Mass/Vol] 10.6 g/dL Low 12.0-15.0 [facility] Immature granulocytes/100 WB C Auto (Bld)Ordered By: Ugo Rogel on 10-06-2024 Immature granulocytes/100 WBC (Bld) 0.600 % 0.0-0.9 [facility] Comment on above: IG% - Immature Granu locytes (promyelocytes, myelocytes and metamyelocytes) > 1% indicates that a LEFT SHIFT is Present. MCV (mean corpuscular volume ) determinationOrdered By: Ugo Rogel on 10-06-2024 MCV (RBC) [Entitic vol] 88.4 fL 81-99 [facility] Mean corpuscular hemoglobin (MCH) determinationOrdered By: Ugo Rogel on 10-06-2024 MCH (RBC) [Entitic mass] 30.7 pg 27.0-32.0 [facility] Mean corpuscular hemoglobin concentration (MCHC) determinationOrdered By: Ugo Rogel on 10-06-2024 MCHC (RBC) [Mass/Vol] 34.8 g/dL 32-36 [facility] Mean platelet volume determi nationOrdered By: Ugo Rogel on 10-06-2024 Platelet mean volume (Bld) [Entitic vol] 10.9 fL 6.2-12.0 [facility] Monocyte percentageOrdered B y: Ugo Rogel on 10-06-2024 Monocytes/100 WBC (Bld) 8.5 % 0-10 [facility] Neutrophil percentageOrdered By: Ugo Rogel on 10-06-2024 Neutrophils/100 WBC (Bld) 80.6 % High 47-70 [facility] Nucleated red blood cell per centageOrdered By: Ugo Rogel on 10-06-2024 Nucleated RBC/100 WBC (Bld) [Ratio] 0 % 0-5 [facility] Platelet countOrdered By: Barry Rogel on 10-06-2024 Platelets (Bld) [#/Vol] 301 10*3/uL 150-450 [facility] RBC Auto (Bld) [#/Vol]Ordere d By: Ugo Rogel on 10-06-2024 RBC (Bld) [#/Vol] 3.45 10*6/uL Low 4.2-5.4 [facility] White blood cell (WBC) count Ordered By: Ugo Rogel on 10-06-2024 WBC (Bld) [#/Vol] 14.2 10*3/uL High 4.4-11.0 [facility] ACT Activated Clotting Timeo n 10-05-2024 ACTk CLOT TIME 314 sec High 74-137 [facility] Comment on above: Performed By: #### L 501.080 #### [facility] Laboratory [facility] [address] [place], [place], [id number] ACTk CLOT TIME 141 sec High 74-137 [facility] Comment on above: Performed By: #### L 501.080 #### [facility] Laboratory [address] [place], [address] Bedside Glucoseon 10-05-2024 FINGERSTICK GLU 408 mg/dL High 74-106 [facility] Comment on above: Result Comment: RAKESH GEMENT OF PATIENT CARE PER NURSING PROTOCOL Performed By: #### L 501.080 #### [facility] Laboratory [address] [place], [address] FINGERSTICK GLU 239 mg/dL High 74-106 [facility] Comment on above: Result Comment: RAKESH GEMENT OF PATIENT CARE PER NURSING PROTOCOL Performed By: #### L 100.0100, L500.2500 #### [facility] Laboratory [address] [place], [address] MR/POSTOP.ANEon 10-05-2024 MR/POSTOP.[facility] Medical Records Department [address] [place] [address] Anesthesia Postop Eval I 10/05/24 1010 MR#: [id number] Acct: [id number] Name: CHELSEA MOODY Rep #: [id number] : 1940 83 From: Araceli Morejon PCP: Dr. Angela High MD Status:ADM IN Y Race: C [facility]: Postop Eval I Current Vital Signs [...] Morejon Cosigner Signature: Date CC: Signed Normal [facility] MR/[id number] 10-05-2024 MR/POSTOPAN2 [facility] Medical Records Department [address] [place] [address] Anesthesia Postop Eval II 10/05/24 1403 MR#: [id number] Acct: [id number] Name: CHELSEA MOODY Rep #: [id number] : 1940 83 From: Abhilash Serrano MD PCP: Dr. Angela High MD Status:ADM IN Y Race: C Location: ICU ICU05 Anesthesia Postop Eval I Sum Postop Eval Completion status Anesthesia document: Postop Eval 1 completed: Yes Anesthesia Postop Eval I Summary Anesthesia Postop Eval I Summary: Anesthesia Postop Eval I: Assessment Summary Airway patent Yes 10/05/24 10:30 ROADABILITY MACHINE OPERATOR.GDOTT Spontaneous unlabored Yes 10/05/24 10:30 ROADABILITY MACHINE OPERATOR.GDOTT respirations Mental status Awake,Calm 10/05/24 10:30 ROADABILITY MACHINE OPERATOR.GDOTT nausea No 10/05/24 10:30 ROADABILITY MACHINE OPERATOR.GDOTT Vomiting No 10/05/24 10:30 ROADABILITY MACHINE OPERATOR.GDOTT Anesthesia Postop Eval I: Fluid Summary Crystalloid volume administer 1,500 10/05/24 10:30 ROADABILITY MACHINE OPERATOR.GDOTT (ml) Colloids volume administered ( ml) Blood Product volume administered (ml) Total IV fluid infused 1,500 10/05/24 10:30 ROADABILITY MACHINE OPERATOR.GDOTT Anesthesia Postop Eval I: Summary Notes Anesthesia Complication No 10/05/24 10:30 ROADABILITY MACHINE OPERATOR.GDOTT Anesthesia Complication Comment: Post-operative progress note Anesthesia: Postop Eval II Evaluation Mental status: Awake and Calm Pain Level: 3 nausea: No Vomiting: No Progress Note Post-operative progress note: Patient transferred to the ICU on 10 mcg/min nitroglycerin. meeting SBP goals Complications Anesthesia Complication: No 10/05/24 140 Date Abhilash Serrano MD Cosigner Signature: Date CC: Signed Normal [facility] Operative Reporton 5 Operative Report [facility] Medical Records Department [address] [place] [address] Operative Report 10/05/24 0943 MR#: [id number] Acct: [id number] Name: CHELSEA MOODY Rep #: [id number] : 1940 83 From: Ugo Rogel MD PCP: Dr. 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 [...] the micropuncture sheath exchanged for the 8 [place]ian venous return sheath. Next the common carotid [...] topical hemostatic was applied and a 19 [place]ian channel CIHTO placed via separate stab incis (more content not included)... Normal [facility] Anion gap in Serum or Plasma Ordered By: Ugo Rogel on 10-01-2024 Anion gap [Moles/Vol] 14 mmol/L - [facility] BUN/creatinine ratioOrdered By: Ugo Rogel on 10-01-2024 Urea nitrogen/Creatinine [Mass ratio] 14.6 mg/mg - [facility] Basic Metabolic Profile (BMP )on 10-01-2024 BUN/CRE 14.6 RATIO Normal - [facility] Comment on above: Performed By: #### L 100.0100, L500.2500 #### [facility] Laboratory [address] [place], [address] Calcium [Mass/Vol] 9.2 mg/dL Normal 7.6-11.0 [facility] Comment on above: Performed By: #### L 100.0100, L500.2500 #### [facility] Laboratory [address] [place], [address] Chloride [Moles/Vol] 98 mmol/L Normal 98-108 [facility] Comment on above: Performed By: #### L 100.0100, L500.2500 #### [facility] Laboratory [address] [place], [address] CO2 [Moles/Vol] 21.7 mmol/L Normal 21.0-32.0 [facility] Comment on above: Performed By: #### L 100.0100, L500.2500 #### [facility] Laboratory [address] [place], [address] Creatinine [Mass/Vol] 1.22 mg/dL High 0.70-1.20 [facility] Comment on above: Performed By: #### L 100.0100, L500.2500 #### [facility] Laboratory [address] [place], [address] GAP 14 Normal 5-15 [facility] Comment on above: Performed By: #### L 100.0100, L500.2500 #### [facility] Laboratory [address] [place], [address] GFR/1.73 sq M.predicted among non-blacks MDRD (S/P/Bld) [Vol rate/Area] 44 mL/min/{1.73_m2} Low >60 [facility] Comment on above: Result Comment: mL/m in/1.73m2 CKD-EPI Creatinine Equation (2020) Performed By: #### L 100.0100, L500.2500 #### [facility] Laboratory [address] [place], [address] Glucose [Mass/Vol] 231 mg/dL High 70-99 [facility] Comment on above: Performed By: #### L 100.0100, L500.2500 #### [facility] Laboratory [address] [place], [address] Potassium [Moles/Vol] 4.6 mmol/L Normal 3.3-5.1 [facility] Comment on above: Performed By: #### L 100.0100, L500.2500 #### [facility] Laboratory [address] [place], [address] Sodium [Moles/Vol] 134 mmol/L Normal 133-145 [facility] Comment on above: Performed By: #### L 100.0100, L500.2500 #### [facility] Laboratory [address] [place], [address] Urea nitrogen [Mass/Vol] 18 mg/dL Normal 4-19 [facility] Comment on above: Performed By: #### L 100.0100, L500.2500 #### [facility] Laboratory [address] [place], [address] CBC-Complete Blood Cnt No Di ffon 10-01-2024 Erythrocyte distribution width (RBC) [Ratio] 13.3 % Normal 11.6-14.6 [facility] Comment on above: Performed By: #### L 100.0100, L500.2500 #### [facility] Laboratory [address] [place], [address] Hematocrit (Bld) [Volume fraction] 36.3 % Low 37-47 [facility] Comment on above: Performed By: #### L 100.0100, L500.2500 #### [facility] Laboratory [address] [place], [address] Hemoglobin (Bld) [Mass/Vol] 12.1 g/dL Normal 12.0-15.0 [facility] Comment on above: Performed By: #### L 100.0100, L500.2500 #### [facility] Laboratory [address] [place], [address] MCH (RBC) [Entitic mass] 30.3 pg Normal 27.0-32.0 [facility] Comment on above: Performed By: #### L 100.0100, L500.2500 #### [facility] Laboratory [address] [place], [address] MCHC (RBC) [Mass/Vol] 33.3 g/dL Normal 32-36 [facility] Comment on above: Performed By: #### L 100.0100, L500.2500 #### [facility] Laboratory [address] [place], [address] MCV (RBC) [Entitic vol] 90.8 fL Normal 81-99 [facility] Comment on above: Performed By: #### L 100.0100, L500.2500 #### [facility] Laboratory [address] [place], [address] Platelet mean volume (Bld) [Entitic vol] 10.6 fL Normal 6.2-12.0 [facility] Comment on above: Performed By: #### L 100.0100, L500.2500 #### [facility] Laboratory [address] [place], [address] Platelets (Bld) [#/Vol] 321 10*3/uL Normal 150-450 [facility] Comment on above: Performed By: #### L 100.0100, L500.2500 #### [facility] Laboratory [address] [place], [address] RBC (Bld) [#/Vol] 4.00 10*6/uL Low 4.2-5.4 [facility] Comment on above: Performed By: #### L 100.0100, L500.2500 #### [facility] Laboratory [address] [place], [address] RDW SD 44.4 fl High 35.1-43.9 [facility] Comment on above: Performed By: #### L 100.0100, L500.2500 #### [facility] Laboratory [address] [place], [address] WBC (Bld) [#/Vol] 8.9 10*3/uL Normal 4.4-11.0 [facility] Comment on above: Performed By: #### L 100.0100, L500.2500 #### [facility] Laboratory [address] [place], [address] Carbon dioxide, total [Moles /volume] in Central venous bloodOrdered By: Ugo Rogel on 10-01-2024 CO2 [Moles/Vol] 21.7 mmol/L 21.0-32.0 [facility] Chloride assayOrdered By: Barry Rogel on 10-01-2024 Chloride [Moles/Vol] 98 mmol/L 98-108 [facility] Glomerular filtration rate ( GFR) estimation/1.73 sq m using serum, plasma, or whole bOrdered By: Ugo Rogel on 10-01-2024 GFR/1.73 sq M.predicted among non-blacks MDRD (S/P/Bld) [Vol rate/Area] 44 mL/min/{1.73_m2} Low >60 [facility] Comment on above: mL/min/1.73m2 CKD-EP I Creatinine Equation (2020) Hemoglobin A1con 10-01-2024 HbA1c (Bld) [Mass fraction] 7.7 % High <=5.6 [facility] Comment on above: Result Comment: Norm al < 5.7 % Prediabetic 5.7 - 6.4 % Diabetic >or= 6.5 % Please note range changes. Performed By: #### L 100.0100, L500.2500 #### [facility] Laboratory [address] [place], [place], [id number] Hemoglobin A1c percentageOrd ered By: Jared Arguello on 10-01-2024 HbA1c (Bld) [Mass fraction] 7.7 % High <5.7 [facility] Comment on above: Normal < 5.7 % Predi abetic 5.7 - 6.4 % Diabetic >or= 6.5 % Please note range changes. Potassium measurement (mass/ volume)Ordered By: Ugo Rogel on 10-01-2024 Potassium (Unsp spec) [Mass/Vol] 4.6 mmol/L 3.3-5.1 [facility] Serum creatinine measurement (mass/volume)Ordered By: Ugo Rogel on 10-01-2024 Creatinine [Mass/Vol] 1.22 mg/dL High 0.70-1.20 [facility] Serum glucose measurement (m ass/volume)Ordered By: Ugo Rogel on 10-01-2024 Glucose [Mass/Vol] 231 mg/dL High 70-99 [facility] Serum or plasma calcium alfred urement (mass/volume)Ordered By: Ugo Rogel on 10-01-2024 Calcium [Mass/Vol] 9.2 mg/dL 7.6-11.0 [facility] Serum or plasma urea nitroge n measurement (mass/volume)Ordered By: Ugo Rogel on 10-01-2024 Urea nitrogen [Mass/Vol] 18 mg/dL 4-19 [facility] Sodium levelOrdered By: Ugo Rogel on 10-01-2024 Sodium [Moles/Vol] 134 mmol/L 133-145 [facility] MR/PAT.Ihsan 09-23-2024 MR/PAT.GENEVIEVE [facility] Medical Records Department [address] [place] [address] PAT - Anesthesia 09/23/24 1415 MR#: [id number] Acct: [id number] Name: CHELSEA MOODY Rep #: [id number] : 1940 83 From: Jared Arguello MD PCP: Dr. Angela High MD Status:PRE IN Y Race: C [facility] Pre-Assessment Diagnosis/Proposed Procedure Planned Operative Procedure(s): RIGHT CAROTID STENT Anesthesia History Anesthesia History - whitewasher: Anesthesia History - whitewasher Hx Hospitalization Yes: AT [facility] 09/23/24 11:46 Any Problems [...] take am of surgery PONV PONV - whitewasher: PONV - whitewasher Female Yes 09/23/24 11:46 HX of Motion [...] 09/01/24 14:52 Respiratory Assessment Respiratory Assessment - whitewasher: Respiratory Tract Infection Hx - whitewasher Hx Respiratory Tract Infection No 09/23/24 11:46 STOP Sleep Apnea STOP Sleep Apnea - whitewasher: STOP Sleep Apnea - whitewasher Hx Hypertension Yes 09/23/24 11:46 Hx Sleep [...] Tobacco Use History Tobacco Use History - whitewasher: Tobacco Use History - whitewasher Tobacco Use Smoking Status Never smoker 09/23/24 11:46 Hx Tobacco Use No 09/23/24 11:46 Years Smoking Packs Smoked per Day Smoking Cessation Date was within the last 15 years Hx Smoking Cessation Date Hx Smoking Cessation Counseling Hematologic Medial History Hematologic Hx - whitewasher: Hematologic Medical Hx - special events manager Hx of Blood Transfusion No 09/23/24 11:46 [...] confused, unrespo /Reproduction History /Reproductive History - whitewasher: /Reproductive Hx- whitewasher Hx Now No 09/23/24 11:46 Gestational Age (in weeks): EDC: Hx Hx Para Hx Section SAB No 09/23/24 11:46 [facility] Medical History (Updated 09/23/24 @ 11:53 by [...] U-100 I (more content not included)... Normal [facility] MR/BMS.Kevin 09-17-2024 MR/BMS.BVS [facility] Vascular Surgery [address] [place] [address] OFFICE VISIT Date of Service: 09/17/24 MR#: [id number] Acct: [id number] Name: CHELSEA MOODY Rep #: [id number] : 1940 Provider: DAVI Green Age/Sex: 83/F Location: 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 Is patient in pain?: No Allergies No Known Allergies Allergy (Verified 08/31/24 19:32) Medications ???Medication ???Instructions ???Recorded ???Confirmed ???Type aspirin 81 mg chewable tablet 81 mg PO BREAKFAST #0 tabs 2 5 09/17/24 Rx atorvastatin 40 mg tablet [...] you fallen in the past year?: Yes [facility] Medical History CVA (cerebral vascular accident) Diabetes mellitus, type 2 Obesity (BMI 30-39.9) GERD (gastroesophageal reflux disease) Hypertension Diabetes Social History Smoking Status: Never smoker HPI HPI HPI: CHELSEA MOODY, is a 83 F who presents to the office today for hospital follow-up from CVA. On 08/31/24, she presented to the [facility] ER with binocular vision darkening [...] headache(s), Yes (more content not included)... Normal [facility] 09-13-2024 [facility] Telephone (INTMWS) CHELSEA MOODY ([id number]) 1940 F Date Time Provider Department 09/13/24 ANGELA HIGH INTMWS During your visit today, we recorded the following information about you: Pippa Nichols, ORESTES 09/13/2024 9:26 AM Signed Daughter (Barry) calls to report that prescriptions for amlodipine and losartan-HCTZ were not received at [facility] [place]. Called and spoke to Randa. 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 Randa mentioned that patient has two accounts in her name. Call placed to daughter to notify. Message left for Barry. When returns call let her know medications are both ready for pick pulling machine operator but I also wanted to mention to her that [facility] mentioned she had two accounts which might [...] Encounter Status:Closed by SIVAKUMAR BARRIOS on 09/13/24 [facility] CNOVon 09-10-2024 CNOV Office Visit (INTMWS ) CHELSEA MOODY ([id number]) 1940 F Date Time Provider Department 09/10/24 11:20 AM ANGELA HIGH INTMWS During your visit today, we recorded the following information about you: Pulse Respiration Blood pressure Weight 98/minute 18/minute 138/69 78.7 kg Leona Perry MA 09/10/2024 12:54 PM Signed [facility] visit: Date of Admission: 09/01/24 Date of Discharge: 09/03/24 Discharge Diagnosis (1) CVA (cerebral vascular accident): Status: Acute Discharge diagnoses: Acute right frontal lobe stroke Hypertensive emergency Carotid artery stenosis right greater than left Hyperlipidemia DM-2 uncontrolled Obesity Hypertension Hospital Course: Mrs. Underwood is an 83-year-old white female who presents emergency department at [facility] on 08/31/2024 with a chief complaint [...] stable condition (more content not included)... Normal [facility] Absolute lymphocyte countOrd ered By: Dariana Wise on 09-03-2024 Lymphocytes Auto (Unsp spec) [#/Vol] 2.17 10*3/uL 0.83-4.51 [facility] Absolute neutrophil countOrd ered By: Dariana Wise on 09-03-2024 Neutrophils (Bld) [#/Vol] 6.1 10*3/uL 2.0-7.7 [facility] Anion gap in Serum or Plasma Ordered By: Dariana Wise on 09-03-2024 Anion gap [Moles/Vol] 11 mmol/L 5-15 [facility] Automated lymphocyte count a s percentage of total leukocytesOrdered By: Dariana Wise on 09-03-2024 Lymphocytes/100 WBC Auto (Unsp spec) 22.9 % 19-41 [facility] BUN/creatinine ratioOrdered By: Dariana Wise on 09-03-2024 Urea nitrogen/Creatinine [Mass ratio] 16.4 mg/mg 10-20 [facility] Basophil percentageOrdered B y: Dariana Wise on 09-03-2024 Basophils/100 WBC (Bld) 0.5 % 0-1 [facility] Bedside Glucoseon 09-03-2024 FINGERSTICK GLU 176 mg/dL High 74-106 [facility] Comment on above: Result Comment: RAKESH LONGO OF PATIENT CARE PER NURSING PROTOCOL Performed By: #### L 501.080 #### [facility] Laboratory [address] [place], [address] Bilirubin, totalOrdered By: Dariana Wise on 09-03-2024 Bilirubin [Mass/Vol] 0.47 mg/dL 0.00-1.30 [facility] Comment on above: Performed By: #### L 501.080 #### [facility] Laboratory [address] [place], [address] CBC W/Diff, Automatedon 04- Absolute Lymph 2.17 X10 3/uL Normal 0.83-4.51 [facility] Comment on above: Performed By: #### L 501.080 #### [facility] Laboratory [address] [place], [address] Absolute Neut 6.1 X10 3/uL Normal 2.0-7.7 [facility] Comment on above: Performed By: #### L 501.080 #### [facility] Laboratory [address] [place], [address] Basophils/100 WBC (Bld) 0.5 % Normal 0-1 [facility] Comment on above: Performed By: #### L 501.080 #### [facility] Laboratory [address] [place], [address] Eosinophils/100 WBC (Bld) 1.9 % Normal 0-5 [facility] Comment on above: Performed By: #### L 501.080 #### [facility] Laboratory [address] [place], [address] Erythrocyte distribution width (RBC) [Ratio] 14.4 % Normal 11.6-14.6 [facility] Comment on above: Performed By: #### L 501.080 #### [facility] Laboratory [address] [place], [address] Hematocrit (Bld) [Volume fraction] 34.7 % Low 37-47 [facility] Comment on above: Performed By: #### L 501.080 #### [facility] Laboratory [address] [place], [address] Hemoglobin (Bld) [Mass/Vol] 11.5 g/dL Low 12.0-15.0 [facility] Comment on above: Performed By: #### L 501.080 #### [facility] Laboratory [address] [place], [address] IG% 0.400 Normal 0.0-0.9 [facility] Comment on above: Result Comment: IG% - Immature Granulocytes (promyelocytes, myelocytes and metamyelocytes) > 1% indicates that a LEFT SHIFT is Present. Performed By: #### L 501.080 #### [facility] [address] [place], [address] Lymphocytes/100 WBC (Bld) 22.9 % Normal 19-41 [facility] Comment on above: Performed By: #### L 501.080 #### [facility] [address] [place], [address] MCH (RBC) [Entitic mass] 30.4 pg Normal 27.0-32.0 [facility] Comment on above: Performed By: #### L 501.080 #### [facility] [address] [place], [address] MCHC (RBC) [Mass/Vol] 33.1 g/dL Normal 32-36 [facility] Comment on above: Performed By: #### L 501.080 #### [facility] [address] [place], [address] MCV (RBC) [Entitic vol] 91.8 fL Normal 81-99 [facility] Comment on above: Performed By: #### L 501.080 #### [facility] [address] [place], [address] Monocytes/100 WBC (Bld) 9.8 % Normal 0-10 [facility] Comment on above: Performed By: #### L 501.080 #### [facility] [address] [place], [address] Neutrophils/100 WBC (Bld) 64.5 % Normal 47-70 [facility] Comment on above: Performed By: #### L 501.080 #### [facility] [address] [place], [address] Nucleated RBC (Bld) [#/Vol] 0 10*3/uL Normal 0-5 [facility] Comment on above: Performed By: #### L 501.080 #### [facility] [address] [place], [address] Platelet mean volume (Bld) [Entitic vol] 10.9 fL Normal 6.2-12.0 [facility] Comment on above: Performed By: #### L 501.080 #### [facility] [address] [place], [address] Platelets (Bld) [#/Vol] 281 10*3/uL Normal 150-450 [facility] Comment on above: Performed By: #### L 501.080 #### [facility] [address] [place], [address] RBC (Bld) [#/Vol] 3.78 10*6/uL Low 4.2-5.4 [facility] Comment on above: Performed By: #### L 501.080 #### [facility] [address] [place], [address] RDW SD 48.5 fl High 35.1-43.9 [facility] Comment on above: Performed By: #### L 501.080 #### [facility] [address] [place], [address] WBC (Bld) [#/Vol] 9.5 10*3/uL Normal 4.4-11.0 [facility] Comment on above: Performed By: #### L 501.080 #### [facility] [address] [place], [address] Carbon dioxide, total [Moles /volume] in Central venous bloodOrdered By: Dariana Wise on 09-03-2024 CO2 [Moles/Vol] 20.8 mmol/L Low 21.0-32.0 [facility] Comment on above: Performed By: #### L 501.080 #### [facility] [address] [place], [address] Chloride assayOrdered By: Giovany Wise on 09-03-2024 Chloride [Moles/Vol] 106 mmol/L 98-108 [facility] Comment on above: Performed By: #### L 501.080 #### [facility] [address] [place], [address] Comprehensive Metabolic Prof ilon 09-03-2024 ALK PHOS 115 U/L High 35-104 [facility] Comment on above: Performed By: #### L 501.080 #### [facility] [address] [place], [address] BUN/CRE 16.4 RATIO Normal 10-20 [facility] Comment on above: Performed By: #### L 501.080 #### [facility] [address] [place], [address] ECRCL 40.44 ml/min Low 50-250 [facility] Comment on above: Performed By: #### L 501.080 #### [facility] [address] [place], [address] GAP 11 Normal 5-15 [facility] Comment on above: Performed By: #### L 501.080 #### [facility] [address] [place], [address] T PROT 6.3 g/dL Normal 5.9-8.4 [facility] Comment on above: Performed By: #### L 501.080 #### [facility] [address] [place], [address] Comprehensive Metabolic Prof ilOrdered By: Dariana Wise on 09-03-2024 AST [Catalytic activity/Vol] 16 U/L <32 [facility] Comment on above: Performed By: #### L 501.080 #### [facility] [address] [place], [place], [address] Eosinophil percentageOrdered By: Dariana Wise on 09-03-2024 Eosinophils/100 WBC (Bld) 1.9 % 0-5 [facility] Erythrocyte distribution wid th (RBC) [Ratio]Ordered By: Dariana Wise on 09-03-2024 Erythrocyte distribution width (RBC) [Entitic vol] 48.5 fL High 35.1-43.9 [facility] Erythrocyte distribution wid th ratioOrdered By: Dariana Wise on 09-03-2024 Erythrocyte distribution width (RBC) [Ratio] 14.4 % 11.6-14.6 [facility] Erythrocyte distribution wid th standard deviationOrdered By: Dariana Wise on 09-03-2024 Erythrocyte distribution width (RBC) [Ratio] 48.5 fl High 35.1-43.9 [facility] Estimation of creatinine samuel aranceOrdered By: Dariana Wise on 09-03-2024 Estimated Creatinine Clearance Calc 40.44 ml/min Low 50-250 [facility] GFR/1.73 sq M.predicted albaro g non-blacks MDRD (S/P/Bld) [Vol rate/Area]Ordered By: Dariana Wise on 09-03-2024 Estimated GFR (MDRD) Non-Af Amer 58 Low >60 [facility] Comment on above: mL/min/1.73m2 CKD-EP I Creatinine Equation (2020) Glomerular filtration rate ( GFR) estimation/1.73 sq m using serum, plasma, or whole bOrdered By: Dariana Wise on 09-03-2024 GFR/1.73 sq M.predicted among non-blacks MDRD (S/P/Bld) [Vol rate/Area] 58 mL/min/{1.73_m2} Low >60 [facility] Comment on above: mL/min/1.73m2 CKD-EP I Creatinine Equation (2020) Result Comment: mL/m in/1.73m2 CKD-EPI Creatinine Equation (2020) Performed By: #### L 501.080 #### [facility] [address] [place], [address] [facility] deOrdered By: aDriana Wise on 09-03-2024 Bedside Glucose (Misc Panel) 176 mg/dL High 74-106 [facility] Comment on above: MANAGEMENT OF PATIEN T CARE PER NURSING PROTOCOL Glucose [Mass/Vol] 176 mg/dL High 74-106 [facility] Comment on above: MANAGEMENT OF PATIEN T CARE PER NURSING PROTOCOL Performed By: #### L 501.080 #### [facility] [address] [place], [place], [id number] Hematocrit Auto (Bld) [Volum e fraction]Ordered By: Dariana Wise on 09-03-2024 Hematocrit (Bld) [Volume fraction] 34.7 % Low 37-47 [facility] Hemoglobin measurementOrdere d By: Dariana Wise on 09-03-2024 Hemoglobin (Bld) [Mass/Vol] 11.5 g/dL Low 12.0-15.0 [facility] Immature granulocytes/100 WB C Auto (Bld)Ordered By: Dariana Wise on 09-03-2024 Immature granulocytes/100 WBC (Bld) 0.400 % 0.0-0.9 [facility] Comment on above: IG% - Immature Granu locytes (promyelocytes, myelocytes and metamyelocytes) > 1% indicates that a LEFT SHIFT is Present. Lymphocytes Auto (Unsp spec) [#/Vol]Ordered By: Dariana Wise on 09-03-2024 Lymphocytes (Bld) [#/Vol] 2.17 10*3/uL 0.83-4.51 [facility] Lymphocytes/100 WBC Auto (Un sp spec)Ordered By: Dariana Wise on 09-03-2024 Lymphocytes/100 WBC (Bld) 22.9 % 19-41 [facility] MCV (mean corpuscular volume ) determinationOrdered By: Dariana Wise on 09-03-2024 MCV (RBC) [Entitic vol] 91.8 fL 81-99 [facility] Mean corpuscular hemoglobin (MCH) determinationOrdered By: Dariana Wise on 09-03-2024 MCH (RBC) [Entitic mass] 30.4 pg 27.0-32.0 [facility] Mean corpuscular hemoglobin concentration (MCHC) determinationOrdered By: Dariana Wise on 09-03-2024 MCHC (RBC) [Mass/Vol] 33.1 g/dL 32-36 [facility] Mean platelet volume determi nationOrdered By: Dariana Wise on 09-03-2024 Platelet mean volume (Bld) [Entitic vol] 10.9 fL 6.2-12.0 [facility] Monocyte percentageOrdered B y: Dariana Wise on 09-03-2024 Monocytes/100 WBC (Bld) 9.8 % 0-10 [facility] Neutrophil percentageOrdered By: Dariana Wise on 09-03-2024 Neutrophils/100 WBC (Bld) 64.5 % 47-70 [facility] Nucleated red blood cell per centageOrdered By: Dariana Wise on 09-03-2024 Nucleated RBC/100 WBC (Bld) [Ratio] 0 % 0-5 [facility] Platelet countOrdered By: Giovany Wise on 09-03-2024 Platelets (Bld) [#/Vol] 281 10*3/uL 150-450 [facility] Potassium measurement (mass/ volume)Ordered By: Dariana Wise on 09-03-2024 Potassium (Unsp spec) [Mass/Vol] 4.3 mmol/L 3.3-5.1 [facility] Potassium [Moles/Vol] 4.3 mmol/L Normal 3.3-5.1 [facility] Comment on above: Performed By: #### L 501.080 #### [facility] [address] [place], [place] [address], [address] RBC Auto (Bld) [#/Vol]Ordere d By: Dariana Wise on 09-03-2024 RBC (Bld) [#/Vol] 3.78 10*6/uL Low 4.2-5.4 [facility] Serum creatinine measurement (mass/volume)Ordered By: Dariana Wise on 09-03-2024 Creatinine [Mass/Vol] 0.97 mg/dL 0.70-1.20 [facility] Comment on above: Performed By: #### L 501.080 #### [facility] [address] [place], [address] Serum globulin measurementOr dered By: Dariana Wise on 09-03-2024 Globulin (S) [Mass/Vol] 2.7 g/dL 2.2-4.2 [facility] Comment on above: Performed By: #### L 501.080 #### [facility] [address] [place], [address] Serum glucose measurement (m ass/volume)Ordered By: Dariana Wise on 09-03-2024 Glucose [Mass/Vol] 176 mg/dL High 70-99 [facility] Serum or plasma alanine jackson otransferase (ALT) measurementOrdered By: Dariana Wise on 09-03-2024 ALT [Catalytic activity/Vol] 21 U/L <35 [facility] Comment on above: Performed By: #### L 501.080 #### [facility] [address] [place], [address] Serum or plasma albumin alfred urement (mass/volume)Ordered By: Dariana Wise on 09-03-2024 Albumin [Mass/Vol] 3.6 g/dL 3.4-4.8 [facility] Comment on above: Performed By: #### L 501.080 #### [facility] [address] [place], [address] Serum or plasma albumin/glob ulin mass ratioOrdered By: Dariana Wise on 09-03-2024 Albumin/Globulin [Mass ratio] 1.3 {ratio} 0.9-2.4 [facility] Comment on above: Performed By: #### L 501.080 #### [facility] [address] [place], [address] Serum or plasma alkaline windy sphatase measurementOrdered By: Dariana Wise on 09-03-2024 ALP [Catalytic activity/Vol] 115 U/L High 35-104 [facility] Serum or plasma calcium alfred urement (mass/volume)Ordered By: Dariana Wise on 09-03-2024 Calcium [Mass/Vol] 9.2 mg/dL 7.6-11.0 [facility] Comment on above: Performed By: #### L 501.080 #### [facility] [address] [place], [address] Serum or plasma urea nitroge n measurement (mass/volume)Ordered By: Dariana Wise on 09-03-2024 Urea nitrogen [Mass/Vol] 16 mg/dL 4-19 [facility] Comment on above: Performed By: #### L 501.080 #### [facility] [address] [place], [address] Sodium levelOrdered By: Milady Wise on 09-03-2024 Sodium [Moles/Vol] 138 mmol/L 133-145 [facility] Comment on above: Performed By: #### L 501.080 #### [facility] [address] [place], [address] Total proteinOrdered By: Luh Wise on 09-03-2024 Protein [Mass/Vol] 6.3 g/dL 5.9-8.4 [facility] White blood cell (WBC) count Ordered By: Dariana Wise on 09-03-2024 WBC (Bld) [#/Vol] 9.5 10*3/uL 4.4-11.0 [facility] Bedside Glucoseon 09-02-2024 FINGERSTICK GLU 262 mg/dL High 74-106 [facility] Comment on above: Result Comment: RAKESH DELMERENT OF PATIENT CARE PER NURSING PROTOCOL Performed By: #### L 100.0100, L500.2500 #### [facility] [address] [place], [address] Electrocardiogram reportOrde red By: Angel Shepard on 09-02-2024 EKG study [facility] Cardiovascular Services [address] [place] [address] 12 Lead EKG 08/31/242102 MR#: [id number] Acct: [id number] Name: CHELSEA MOODY Rep #:[id number] : 1940 83 From: Angel Shepard MD Attending Dr: Dr. Dariana Wise DO S tatus: ADM IN Ordering Dr: Murphy Ramírez DO Date: 0 08/31/24 Location: U Sex: F C Admitted: 09/01/24 Test Reason : DYSRHYTHMIA Blood Pressure : */* mmHG Vent. Rate : 64 BPM Atrial Rate : 64 BPM P-R Int : 186 ms QRS Dur : 76 ms QT Int : 406 ms P-R-T Axes : -3 37 59 degrees QTcB Int : 418 ms Normal sinus rhythm Normal ECG Confirmed by DEVYN PENN, ANGEL ([id number]), assistant film editor LAURY PERSAUD ([id number]) on 58:34:45 AM Referred By: Confirmed By: ANGEL SHEPARD MD 09/02/24 0834 Date _ Angel Shepard MD CC: Dr. Kurt Lieberman MD; Dr. Dariana Wise DO; Dr. Murphy Ramírez DO ~ Signed [facility] Work Phone: Alcohol, Blood (Medical)-Ser umon 09-01-2024 SERUM ETOH < 10.1 Normal <=10.0 [facility] Comment on above: Order Comment: *ADD- ON* Result Comment: This test is for medical purposes only. The legal definition of intoxication varies according to local law. Performed By: #### L 100.0100, L500.2500 #### [facility] [address] [place], [place], [address] Bedside Glucoseon 09-01-2024 FINGERSTICK GLU 222 mg/dL High 74-106 [facility] Comment on above: Result Comment: RAKESH GEMENT OF PATIENT CARE PER NURSING PROTOCOL Performed By: #### L 501.080 #### [facility] [address] [place], [place], [address] FINGERSTICK GLU 144 mg/dL High 74-106 [facility] Comment on above: Result Comment: RAKESH LONGO OF PATIENT CARE PER NURSING PROTOCOL Performed By: #### L 501.080 #### [facility] [address] [place], [address] CTA Head AND Neck W/ Contras ton 09-01-2024 CTA Head AND Neck W/ Contrast [facility] Imaging Services [address] [place] [address] CTA Head AND Neck W/ Contrast MR#: [id number] Acct: [id number] Name: CHELSEA MOODY Rep #: [id number] : 1940 F 83 From: Carlos estevez MD PCP: Dr. Kurt Lieberman MD Status: ADM IN Study: CTA Head AND Neck W/ Contrast Date of Exam: Exam# [id number] Ordering Dr: Sonali Haro PROCEDURE: CTA HEAD [...] CCA: No significant atherosclerotic calcification Right ICA: [id number]-[id number] atherosclerotic calcified and noncalcified plaque at the [...] RIGHT Vertebral: Unremarkable. LEFT Vertebral: Unremarkable. Anatomy: [place] anatomy is normal. Aneurysm or [...] acute occlusion, dissection or aneurysm [facility] CC: DAVI Green; Dr. Kurt Lieberman MD Tumbler Drier Operator: Signed Normal [facility] Calculated very low density lipoprotein (VLDL) cholesterol measurementOrdered By: Severiano Gordillo on 09-01-2024 Calculated very low density lipoprotein (VLDL) cholesterol measurement 35 mg/dL 5-40 [facility] VLDL Cholesterol 35 mg/dL -40 [facility] Consultation - Surgicalon Consultation - [facility] Medical Records Department [address] [place] [address] Consultation - Surgical 09/01/24 1427 MR#: [id number] Acct: [id number] Name: CHELSEA MOODY Rep #: [id number] : 1940 83 From: Sonali TOMLINSON PCP: Dr. Kurt Lieberman MD Status:ADM IN Location: [place] [address] Assessment Plan Assessment/Plan (1) CVA (cerebral vascular [...] a 83 F who presented to the [facility] ER after an episode of [...] PCI, COPD/asthma, CKD, prior vascular surgical interventions. [facility] Medical History GERD (gastroesophageal reflux disease) Hypertension [...] % (Auto) 61.5, Lymph % (Auto) 24.9, [place] % (Auto) 9.1, Eos % (Auto) 3.2, [...] 08/31/24 22:36: (more content not included)... Normal [facility] Duplex ultrasound of carotid artery reportOrdered By: Ugo Rogel on 09-01-2024 Study report [facility] Cardiovascular Services [address] [place] [address] Carotid Duplex Ultrasound 09/01/24 0808 MR#: [id number] Acct: [id number] Name: CHELSEA MOODY Rep #:[id number] : 1940 83 From: Ugo Rousseau Attending Dr: DO Abigail Whitman tatus: ADM JAMES Ordering Dr: Severiano Ibarra [...] the left vertebral artery. Procedure Carotid Duplex 96830. This is a Carotid Duplex examination using B-mode, color flow and specral Doppler. Exam performed portable in patient room. Preliminary report given to MARITZA Alvarez Charge Nurse. VL/Carotid Duplex Ultrasound Interpretation Summary Severe (>70%) stenosis right extracranial internal carotid. Mild (<50%) stenosis left extracranial internal carotid. Patent and antegrade vertebrals bilaterally. Ordering Physician: Severiano Ibarra Performed By: Na Isaac, KIMBERT 09/01/24 1336 Date _ Ugo Rogel MD CC: Dr. Severiano Ibarra DO; Dr. Kurt Lieberman MD; Dr. Dariana Wise DO ~ Date Dictated: 09/01/24 0808 Date Transcribed: 09/01/24 133 Tumbler Drier Operator: Signed [facility] Work Phone: Echocardiogram study reportO rdered By: Angel Shepard on 09-01-2024 Study report [facility] Cardiovascular Services [place] [address] Echo Complete W/ Contrast 09/01/24 1349 MR#: [id number] Acct: [id number] Name: CHELSEA MOODY Rep #:[id number] : 1940 83 From: Angel Rousseau Attending [...] By: Jer Valenzuela RCS 09/01/24 1734 Date _ Angel Shepard MD CC: Dr. Severiano Ibarra DO; Dr. Kurt Lieberman MD; Dr. Dariana Wise DO ~ Date Dictated: 09/01/24 1349 Date Transcribed: 09/01/24 1734 Tumbler Drier Operator: Signed [facility] Work Phone: Folate [Mass/Vol]Ordered By: Severiano Gordillo on 09-01-2024 Serum Folate 10.10 ng/mL 4.60-34.80 [facility] Folate [Mass/volume] in Seru m or PlasmaOrdered By: Severiano Gordillo on 09-01-2024 Folate [Mass/Vol] 10.10 ng/mL 4.60-34.80 [facility] Folates,Serum (Folic Acid)on 09-01-2024 FOLATES,SERUM 10.10 ng/mL Normal 4.60-34.80 [facility] Comment on above: Order Comment: N Performed By: #### L 100.0100, L500.2500 #### [facility] [address] [place], [address] Hemoglobin A1c percentageOrd ered By: Severiano Gordillo on 09-01-2024 HbA1c (Bld) [Mass fraction] 7.8 % >5.7 [facility] Comment on above: Performed By: #### L 100.0100, L500.2500 #### [facility] [address] [place], [address] L499.0043on 09-01-2024 Trop T High Sen 13 ng/L Normal <=14 [facility] Comment on above: Performed By: #### L 100.0100, L500.2500 #### [facility] [address] [place], [address] Trop T High Sen Normal <=14 [facility] Comment on above: Result Comment: Tracie davis via OM: Ordered Performed By: #### L 501.080 #### [facility] [address] [place], [place], [address] LDL calc ser/plasOrdered By: Severiano Gordillo on 09-01-2024 Cholesterol in LDL [Mass/Vol] 123 mg/dL [facility] Comment on above: Qzxeeplhyq=480-674 m g/dL & Higher Aljg=231 mg/dL or greater LDL Cholesterol, Calculated 123 mg/dL [facility] Comment on above: Oibwdzsjkf=385-756 m g/dL & Higher Bnma=028 mg/dL or greater Lipid Profileon 09-01-2024 CHOL:HDL 4.38 Normal [facility] Comment on above: Performed By: #### L 500.4100, L503.0106 #### [facility] [address] [place], [place], [id number] ([phone] Cholesterol [Mass/Vol] 205 mg/dL High <=200 [facility] Comment on above: Result Comment: Chol esterol level, Desirable <200 mg/dL Borderline high cholesterol 200-239 mg/dL High cholesterol >=240 mg/dL 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s of the NCEP Adult Treatment Panel for the following risk-cutoff thresholds for the [place] population. Performed By: #### L 500.4100, L503.0106 #### [facility] [address] [facility] [place], [place], [phone] Cholesterol in HDL [Mass/Vol] 47 mg/dL Normal [facility] Comment on above: Result Comment: Lydia onal Cholesterol Education Program (NCEP) guidelines: <40 mg/dL: Low HDL-cholesterol (major risk factor for CHD) >= 60 mg/dL: High HDL-cholesterol (negative risk factor for CHD) HDL-cholesterol is affected by a number of factors, e.g. smoking, exercise, hormones, sex and age. Performed By: #### L 500.4100, L503.0106 #### [facility] [address] [place], [place], [id number] [phone] Cholesterol in LDL [Mass/Vol] 123 mg/dL Normal [facility] Comment on above: Result Comment: Bord jmmfog=440-482 mg/dL Higher Nsvn=770 mg/dL or greater Performed By: #### L 500.4100, L503.0106 #### [facility] [address] [place], [address] Cholesterol in VLDL [Mass/Vol] 35 mg/dL Normal 5-40 [facility] Comment on above: Performed By: #### L 500.4100, L503.0106 #### [facility] [address] [place], [address] Triglyceride [Mass/Vol] 177 mg/dL Normal [facility] Comment on above: Result Comment: The drugs N-Acetylcysteine and Metamizole may falsely depress this assay. Normal range: <150 mg/dL Borderline High: 150-199 mg/dL High: 200-499 mg/dL Very High: >500 mg/dL Performed By: #### L 500.4100, L503.0106 #### [facility] [address] [place], [address] TRIG Normal [facility] Comment on above: Result Comment: NEED S REORDERED- PT FORGOT SHE ATE SHE WILL NEED RAN IN MORNING The drugs N-Acetylcysteine and Metamizole may falsely depress this assay. Performed By: #### L 500.4100, L499.0043 #### [facility] [address] [place], [address] CHOL Normal <=200 [facility] Comment on above: Result Comment: NEED S REORDERED- PT FORGOT SHE ATE SHE WILL NEED RAN IN MORNING Performed By: #### L 500.4100, L499.0043 #### [facility] [address] [place], [address] Result Comment: MOVE D TO DIFFERENT REQ Performed By: #### L 501.080 #### [facility] [address] [place], [address] CHOL:HDL Normal [facility] Comment on above: Result Comment: NEED S REORDERED- PT FORGOT SHE ATE SHE WILL NEED RAN IN MORNING Performed By: #### L 500.4100, L499.0043 #### [facility] [address] [place], [place], [id number] Result Comment: MOVE D TO DIFFERENT REQ Performed By: #### L 501.080 #### [facility] [address] [place], [address] CLDL Normal [facility] Comment on above: Result Comment: NEED S REORDERED- PT FORGOT SHE ATE SHE WILL NEED RAN IN MORNING Performed By: #### L 500.4100, L499.0043 #### [facility] [address] [place], [address] Result Comment: MOVE D TO DIFFERENT REQ Performed By: #### L 501.080 #### [facility] [address] [place], [address] HDL Normal [facility] Comment on above: Result Comment: NEED S REORDERED- PT FORGOT SHE ATE SHE WILL NEED RAN IN MORNING Performed By: #### L 500.4100, L499.0043 #### [facility] [address] [place], [address] Result Comment: MOVE D TO DIFFERENT REQ Performed By: #### L 501.080 #### [facility] [address] [place], [address] TRIG Normal [facility] Comment on above: Result Comment: MOVE D TO DIFFERENT REQ Performed By: #### L 501.080 #### [facility] [address] [place], [address] VLDL Normal 5-40 [facility] Comment on above: Result Comment: NEED S REORDERED- PT FORGOT SHE ATE SHE WILL NEED RAN IN MORNING Performed By: #### L 500.4100, L499.0043 #### [facility] [address] [place], [address] Result Comment: MOVE D TO DIFFERENT REQ Performed By: #### L 501.080 #### [facility] [address] [place], [address] MR/CON.PCM.NEon 09-01-2024 MR/CON.PCM.NE [facility] Medical Records Department [address] [place] [address] Consultation - Neurology 09/01/24 1432 MR#: [id number] Acct: [id number] Name: CHELSEA MOODY Rep #: [id number] : 1940 83 From: Monik Barker MD PCP: Dr. Kurt Lieberman MD Status:ADM IN Location: [place] [address] Assessment and Plan: Neuro Assessment/Plan CHELSEA MOODY [...] management should aim to achieve long term care pharmacist contorl in a reasonable amount of time, [...] on treatment and OA who presents to [facility] ER complaining of dizziness and highly [...] stroke before. Currently no dizziness or lightheadedness. [facility] Medical History GERD (gastroesophageal reflux disease) Hypertension [...] 118 114 (more content not included)... Normal [facility] Magnetic resonance imaging r eportOrdered By: Ravindra Hernandez on 09-01-2024 Study report [facility] Imaging Services [address] [place], [place] [id number] Brain without Contrast MR#: [id number] Acct: [id number] Name: CHELSEA MOODY Rep #: [id number] : 1940 F 83 From: Mirtha Hernandez MD PCP: Dr. Kurt Lieberman MD Status: A DM JAMES Study:Brain without Contrast Date of Exam: 08/31/24 Exam# [id number] Ordering Dr: Severiano Zheng DO ADDENDUM by Dr. Ravindra Hernandez MD on 09/01/24 at 1054 Blanco Alert: Impression #1 The critical information above was relayed directly by me by telephone to janeth Alvarez RN on 09/01/2024 at 8:51 am MST with readback verification. END OF ADDENDUM Reading Location: [id number] 09/01/245 Date cc: Dr. Severiano Ibarra DO; Dr. [...] 2. Additional description as above. Reading Location: [facility] CC: Dr. Severiano Ibarra DO; Dr. Kurt Lieberman MD ~ Tumbler Drier Operator: Signed [facility] Screening total cholesterol/ high density lipoprotein (HDL) cholesterol ratioOrdered By: Severiano Gordillo on 09-01-2024 Cholesterol.total/Analy sterol in HDL [Mass ratio] 4.38 {ratio} [facility] Serum or plasma cholesterol in HDL measurement (mass/volume)Ordered By: Severiano Gordillo on 09-01-2024 Cholesterol in HDL [Mass/Vol] 47 mg/dL >40 [facility] Comment on above: National Cholesterol Education Program (NCEP) guidelines:<40 mg/dL: Low HDL-cholesterol (major risk factor for CHD)>= 60 mg/dL: High HDL-cholesterol (negative risk factor for CHD)HDL-cholesterol is affected by a number of factors, e.g. smoking, exercise, hormones, sex and age. Serum or plasma cholesterol measurement (mass/volume)Ordered By: Severiano Gordillo on 09-01-2024 Cholesterol [Mass/Vol] 205 mg/dL High <201 [facility] Comment on above: Cholesterol level, D esirable <200 mg/dLBorderline high cholesterol 200-239 mg/dLHigh cholesterol >=240 mg/dL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s of the NCEP Adult Treatment Panel for the following risk-cutoff thresholds for the [place] population. Thyroid Stim Hormone (TSH)on 09-01-2024 TSH 2.070 uIU/mL Normal 0.300-4.200 [facility] Comment on above: Order Comment: *ADD- ON* Performed By: #### L 100.0100, L500.2500 #### [facility] [address] [place], [address] Triglycerides measurementOrd ered By: Severiano Gordillo on 09-01-2024 Triglyceride [Mass/Vol] 177 mg/dL <199 [facility] Comment on above: The drugs N-Acetylcy steine and Metamizole may falsely depress this assay. Normal range: <150 mg/dLBorderline High: 150-199 mg/dLHigh: 200-499 mg/dLVery High: >500 mg/dL Troponin T.cardiac High sens itivity method [Mass/Vol]Ordered By: Severiano Gordillo on 09-01-2024 Troponin T High Sensitivity 4 Hour 13 ng/L <14 [facility] Troponin T.cardiac [Mass/vol ume] in Serum or Plasma by High sensitivity methodOrdered By: Severiano Gordillo on 09-01-2024 Troponin T.cardiac High sensitivity method [Mass/Vol] 13 ng/L <14 [facility] Urine Drug Screen (VISTA)on 09-01-2024 AMPHETAMINES Negative Normal <1000 ng/mL [facility] Comment on above: Order Comment: UNK Performed By: #### L 100.0100, L500.2500 #### [facility] [address] [place], [address] BARBITIURATES Negative Normal < 200 ng/mL [facility] Comment on above: Order Comment: UNK Performed By: #### L 100.0100, L500.2500 #### [facility] [address] [place], [address] BENZODIAZIPINE Negative Normal < 200 ng/mL [facility] Comment on above: Order Comment: UNK Performed By: #### L 100.0100, L500.2500 #### [facility] [address] [place], [address] BUP Ur Drug Scr Negative Normal < 200 ng/mL [facility] Comment on above: Order Comment: UNK Performed By: #### L 100.0100, L500.2500 #### [facility] [address] [place], [address] COCAINE Negative Normal < 300 ng/mL [facility] Comment on above: Order Comment: UNK Performed By: #### L 100.0100, L500.2500 #### [facility] [address] [place], [address] Fentanyl Negative Normal [facility] Comment on above: Order Comment: UNK Performed By: #### L 100.0100, L500.2500 #### [facility] [address] [place], [address] METHADONE Negative Normal < 300 ng/mL [facility] Comment on above: Order Comment: UNK Performed By: #### L 100.0100, L500.2500 #### [facility] [address] [place], [address] OPIATES Negative Normal < 300 ng/mL [facility] Comment on above: Order Comment: UNK Performed By: #### L 100.0100, L500.2500 #### [facility] [address] [place], [address] OXYCODONE Negative Normal < 100 ng/mL [facility] Comment on above: Order Comment: UNK Performed By: #### L 100.0100, L500.2500 #### [facility] [address] [place], [address] PCP Negative Normal < 25 ng/mL [facility] Comment on above: Order Comment: UNK Performed By: #### L 100.0100, L500.2500 #### [facility] [address] [place], [address] THC Negative Normal < 50 ng/mL [facility] Comment on above: Order Comment: UNK Performed By: #### L 100.0100, L500.2500 #### [facility] [address] [place], [address] Vitamin B12on 09-01-2024 Cobalamin (Vitamin B12) [Mass/Vol] 421 pg/mL Normal 180-914 [facility] Comment on above: Performed By: #### L 500.4100, L503.0106 #### [facility] [address] [place], [address] Vitamin B12 ser/plasOrdered By: Severiano Gordillo on 09-01-2024 Cobalamin (Vitamin B12) [Mass/Vol] 421 pg/mL 180-914 [facility] 12 Lead EKGon 08-31-2024 12 Lead EKG [facility] Cardiovascular Services [address] [place] [address] 12 Lead EKG 08/31/24 2103 MR#: [id number] Acct: [id number] Name: CHELSEA MOODY Rep #: [id number] : 1940 83 From: Angel Shepard MD Attending Dr: Dr. Dariana Wise DO Status: ADM I N Ordering Dr: [...] Normal ECG Confirmed by ANGEL SHEPARD MD ([id number]), assistant film editor LAURY PERSAUD ([id number]) on 09/02/2024 8:34:45 AM Referred By: Confirmed By: ANGEL SHEPARD MD 09/02/24 0834 Date Angel Shepard MD CC: Dr. Kurt Lieberman MD; Dr. Dariana Wise DO; Dr. Murphy Ramírez DO Signed Normal [facility] Absolute neutrophil countOrd ered By: Murphy Ramírez on 08-31-2024 Neutrophils (Bld) [#/Vol] 6.8 10*3/uL 2.0-7.7 [facility] Amphetamine detection with 1 000 ng/mL as cutoffOrdered By: Severiano Gordillo on 08-31-2024 Amphetamines Screen method >1000 ng/mL Ql (U) Negative < 200 ng/mL [facility] Amphetamines Screen method > 1000 ng/mL Ql (U)Ordered By: Severiano Gordillo on 08-31-2024 Amphetamines Ql (U) Negative <1000 ng/mL [facility] Urine Barbiturates Screen Negative < 200 ng/mL [facility] Anion gap in Serum or Plasma Ordered By: Murphy Ramírez on 08-31-2024 Anion gap [Moles/Vol] 12 mmol/L 5-15 [facility] Automated blood erythrocyte countOrdered By: Murphy Ramírez on 08-31-2024 RBC (Bld) [#/Vol] 4.27 10*6/uL Normal 4.2-5.4 [facility] Comment on above: Performed By: #### L 100.0100, L500.2500 #### [facility] [address] [place], [place], [address] Automated blood hematocrit ( percentage)Ordered By: Murphy Ramírez on 08-31-2024 Hematocrit (Bld) [Volume fraction] 38.5 % Normal 37-47 [facility] Comment on above: Performed By: #### L 100.0100, L500.2500 #### [facility] [address], [address] Automated lymphocyte count a s percentage of total leukocytesOrdered By: Murphy Ramírez on 08-31-2024 Lymphocytes/100 WBC (Bld) 24.9 % Normal 19-41 [facility] Comment on above: Performed By: #### L 100.0100, L500.2500 #### [facility] [address] [place], [address] BUN/creatinine ratioOrdered By: Murphy Ramírez on 08-31-2024 Urea nitrogen/Creatinine [Mass ratio] 18.8 mg/mg 10-20 [facility] Basophil percentageOrdered B y: Murphy Ramírez on 08-31-2024 Basophils/100 WBC (Bld) 0.8 % Normal 0-1 [facility] Comment on above: Performed By: #### L 100.0100, L500.2500 #### [facility] [address] [place], [address] Bedside Glucoseon 08-31-2024 FINGERSTICK GLU 141 mg/dL High 74-106 [facility] Comment on above: Result Comment: RAKESH LONGO OF PATIENT CARE PER NURSING PROTOCOL Performed By: #### L 100.0100, L500.2500 #### [facility] [address] [place], [address] Bilirubin Test strip Ql (U)O rdered By: Murphy Ramírez on 08-31-2024 Bilirubin Ql (U) Negative Negative [facility] Bilirubin, totalOrdered By: Murphy Ramírez on 08-31-2024 Bilirubin [Mass/Vol] 0.26 mg/dL Normal 0.00-1.30 [facility] Comment on above: Performed By: #### L 100.0100, L500.2500 #### [facility] [address] [place], [address] Brain without Contraston Brain without Contrast [facility] Imaging Services [address] [place] [address] Brain without Contrast MR#: [id number] Acct: [id number] Name: CHELSEA MOODY Rep #: [id number] : 1940 F 83 From: Ravindra Hernandez MD PCP: Dr. Kurt Lieberman MD Status: ADM JAMES Study: Brain without Contrast Date of Exam: 08/31/24 Exam# [id number] Ordering Dr: Severiano Ibarra DO ADDENDUM by Dr. Ravindra Hernandez MD on 09/01/24 at 1054 Blanco Alert: Impression #1 The critical information above was relayed directly by me by telephone to janeth Alvarez RN on 09/01/2024 at 8:51 am MST with readback verification. END OF ADDENDUM Reading Location: [id number] 09/01/24 1055 Date cc: Dr. Severiano Ibarra [...] 2. Additional description as above. Reading Location: [id number] CC: Dr. Severiano Ibarra DO; Dr. Kurt Lieberman MD Tumbler Drier Operator: Signed Normal [facility] Brain/Head without Contrasto n 08-31-2024 Brain/Head without Contrast [facility] Imaging Services [address] [place] [address] Brain/Head without Contrast MR#: [id number] Acct: [id number] Name: CHELSEA MOODY Rep #: [id number] : 1940 F 83 From: Carlos estevez MD PCP: Dr. Krut Lieberman MD Status: REG ER Study: Brain/Head without Contrast Date of Exam: 01/17 Exam# [id number] Ordering Dr: Murphy Ramírez DO PROCEDURE: BRAIN/HEAD [...] ischemia and involutional changes. Reading Location: [facility] CC: Dr. Kurt Lieberman MD; Dr. Murphy Ramírez DO Tumbler Drier Operator: Signed Normal [facility] CBC W/Diff, Automatedon Absolute Lymph 2.74 X10 3/uL Normal 0.83-4.51 [facility] Comment on above: Performed By: #### L 100.0100, L500.2500 #### [facility] [address] [place], [address] Absolute Neut 6.8 X10 3/uL Normal 2.0-7.7 [facility] Comment on above: Performed By: #### L 100.0100, L500.2500 #### [facility] [address] [place], [address] IG% 0.500 Normal 0.0-0.9 [facility] Comment on above: Result Comment: IG% - Immature Granulocytes (promyelocytes, myelocytes and metamyelocytes) > 1% indicates that a LEFT SHIFT is Present. Performed By: #### L 100.0100, L500.2500 #### [facility] [address] [place], [address] Nucleated RBC (Bld) [#/Vol] 0 10*3/uL Normal 0-5 [facility] Comment on above: Performed By: #### L 100.0100, L500.2500 #### [facility] [address] [place], [address] RDW SD 47.4 fl High 35.1-43.9 [facility] Comment on above: Performed By: #### L 100.0100, L500.2500 #### [facility] [address] [place], [address] Carbon dioxide, total [Moles /volume] in Central venous bloodOrdered By: Murphy Ramírez on 08-31-2024 CO2 [Moles/Vol] 20.7 mmol/L Low 21.0-32.0 [facility] Comment on above: Performed By: #### L 100.0100, L500.2500 #### [facility] [address] [place], [address] Carotid Duplex Ultrasoundon 08-31-2024 Carotid Duplex Ultrasound [facility] Cardiovascular Services [address] [place] [address] Carotid Duplex Ultrasound 09/01/24 0808 MR#: [id number] Acct: [id number] Name: CHELSEA MOODY Rep #: [id number] : 1940 83 From: Ugo Rogel MD Attending Dr: Dr. Dariana Wise, DO Status: ADM I NO Ordering Dr: [...] the left vertebral artery. Procedure Carotid Duplex 42583. This is a Carotid Duplex examination using B-mode, color flow and specral Doppler. Exam performed portable in patient room. Preliminary report given to MARITZA Alvarez Charge Nurse. VL/Carotid Duplex Ultrasound Interpretation Summary Severe (>70%) stenosis right extracranial internal carotid. Mild (<50%) stenosis left extracranial internal carotid. Patent and antegrade vertebrals bilaterally. Ordering Physician: Severiano Ibarra Performed By: Na Isaac RVT 09/01/246 Date Ugo Rogel MD CC: Dr. Severiano Ibarra DO; Dr. Kurt Lieberman MD; Dr. Dariana Wise DO Date Dictated: 09/01/24807 Date Transcribed: 09/01/241335 Tumbler Drier Operator: Signed Normal [facility] Chloride assayOrdered By: Elsa Ramírez on 08-31-2024 Chloride [Moles/Vol] 103 mmol/L Normal 98-108 [facility] Comment on above: Performed By: #### L 100.0100, L500.2500 #### [facility] [address] [place], [address] Comprehensive Metabolic Prof ilon 08-31-2024 ALK PHOS 123 U/L High 35-104 [facility] Comment on above: Performed By: #### L 100.0100, L500.2500 #### [facility] [address] [place], [address] BUN/CRE 18.8 RATIO Normal 10-20 [facility] Comment on above: Performed By: #### L 100.0100, L500.2500 #### [facility] [address] [place], [address] ECRCL 39.57 ml/min Low 50-250 [facility] Comment on above: Performed By: #### L 100.0100, L500.2500 #### [facility] [address] [place], [address] GAP 12 Normal 5-15 [facility] Comment on above: Performed By: #### L 100.0100, L500.2500 #### [facility] [address] [place], [address] GFR/1.73 sq M.predicted among non-blacks MDRD (S/P/Bld) [Vol rate/Area] 57 mL/min/{1.73_m2} Low >60 [facility] Comment on above: Result Comment: mL/m in/1.73m2 CKD-EPI Creatinine Equation (2020) Performed By: #### L 100.0100, L500.2500 #### [facility] [address] [place], [address] T PROT 6.6 g/dL Normal 5.9-8.4 [facility] Comment on above: Performed By: #### L 100.0100, L500.2500 #### [facility] [address] [place], [address] Comprehensive Metabolic Prof ilOrdered By: Murphy Ramírez on 08-31-2024 AST [Catalytic activity/Vol] 21 U/L Normal <=31 [facility] Comment on above: Performed By: #### L 100.0100, L500.2500 #### [facility] [address] [place], [address] Echo Complete W/ Contraston 08-31-2024 Echo Complete W/ Contrast [facility] Cardiovascular Services [address] [place] [address] Echo Complete W/ Contrast 09/01/24 1349 MR#: [id number] Acct: [id number] Name: CHELSEA MOODY Ravinder Rep #: [id number] : 1940 83 From: Angel Shepard MD Attending Dr: Dr. Dariana Wise, DO Status: ADM I N Ordering Dr: Severiano Ibarra DO Date: 08/31/24 Location: U Sex: F C Admitted: 09/01/24 Reason For [...] Ibarra Performed By: Jer Valenzuela RCS 09/01/24 173 Date nAgel Shepard MD CC: Dr. Severiano Ibarra DO; Dr. Kurt Lieberman MD; Dr. Dariana Wise DO Date Dictated: 09/01/24 1349 Date Transcribed: 09/01/24 173 Tumbler Drier Operator: Signed Normal [facility] Emergency Department Summary on 08-31-2024 Emergency Department Summary [facility] Medical Records Department [address] [place] [address] Emergency Department Summary 08/31/24 MR#: [id number] Acct: [id number] Name: CHELSEA MOODY Rep #: [id number] : 1940 83 From: Murphy Ramírez DO PCP: Dr. Kurt Lieberman MD Status:REG ER Location: ED HPI History of Present Illness Chief Complaint: Dizziness [facility] Medical History (Updated 08/31/24 @ [...] History obtained from others: none Consults: none MDM Narrative: Patient was initially hypertensive blood pressure [...] normal s (more content not included)... Normal [facility] Eosinophil percentageOrdered By: Murphy Ramírez on 08-31-2024 Eosinophils/100 WBC (Bld) 3.2 % Normal 0-5 [facility] Comment on above: Performed By: #### L 100.0100, L500.2500 #### [facility] [address] [place], [place], [address] Epithelial cells.squamous LM Ql (Urine sed)Ordered By: Murphy Ramírez on 08-31-2024 Epithelial cells.squamous LM.HPF (Urine sed) [#/Area] 5 /[HPF] 5-10 [facility] Erythrocyte distribution wid th (RBC) [Ratio]Ordered By: Murphy Ramírez on 08-31-2024 Erythrocyte distribution width (RBC) [Entitic vol] 47.4 fL High 35.1-43.9 [facility] Erythrocyte distribution wid th ratioOrdered By: Murphy Ramírez on 08-31-2024 Erythrocyte distribution width (RBC) [Ratio] 14.3 % Normal 11.6-14.6 [facility] Comment on above: Performed By: #### L 100.0100, L500.2500 #### [facility] [address] [place], [place], [address] Estimation of creatinine samuel aranceOrdered By: Murphy Ramírez on 08-31-2024 Estimated Creatinine Clearance Calc 39.57 ml/min Low 50-250 [facility] Ethanol [Mass/Vol]Ordered By : Severiano Gordillo on 08-31-2024 Ethyl Alcohol Level < 10.1 mg/dL <10.1 [facility] Comment on above: This test is for med ical purposes only. The legal definition of intoxication varies according to local law. GFR/1.73 sq M.predicted albaro g non-blacks MDRD (S/P/Bld) [Vol rate/Area]Ordered By: Murphy Ramírez on 08-31-2024 Estimated GFR (MDRD) Non-Af Amer 57 Low >60 [facility] Comment on above: mL/min/1.73m2 CKD-EP I Creatinine Equation (2020) Glucose Ql (U)Ordered By: Elsa Ramírez on 08-31-2024 Urine Glucose (UA) Normal mg/dl Normal [facility] Gl[facility] at [facility] deOrdered By: Murphy Ramírez on 08-31-2024 Bedside Glucose (Misc Panel) 141 mg/dL High 74-106 [facility] Comment on above: MANAGEMENT OF PATIEN T CARE PER NURSING PROTOCOL H AND P Exam - Hospitaliston 08-31-2024 H&P Exam - Hospitalist [facility] Medical Records Department [address] [place] [address] H P Exam - Hospitalist 08/31/24 2305 MR#: [id number] Acct: [id number] Name: CHELSEA MOODY Rep #: [id number] : 1940 83 From: Severiano Ibarra DO PCP: Dr. Kurt Lieberman MD Status:ADM JAMES Location: U [address] Date of Service: 08/31/24 Chief Complaint: Dizziness and Highly Elevated Blood Pressure. HPI Narrative CHELSEA MOODY, is a 83 F with a past medical history of essential hypertension; poorly-controlled on metoprolol, obesity; BMI of 39.5 this admission, DM-2; of unknown control on insulin glargine 8U at bedtime, GERD; currently not on treatment and OA who presents to [facility] ER complaining of dizziness and highly [...] expected to be less than 2 midnights. [facility] Medical History GERD (gastroesophageal reflux disease) Hypertension [...] 2.389 o (more content not included)... Normal [facility] HEMOGLOBIN A1con 08-31-2024 HEMOGLOBIN A1c 7.5 [...] By: #### 4 96 #### [facility] [address], [address] [place] [id number] Snack Steward: Channing Quiroga MD Hemoglobin measurementOrdere d By: Murphy Ramírez on 08-31-2024 Hemoglobin (Bld) [Mass/Vol] 13.1 g/dL Normal 12.0-15.0 [facility] Comment on above: Performed By: #### L 100.0100, L500.2500 #### [facility] [address] [place], [address] Immature granulocytes/100 WB C Auto (Bld)Ordered By: Murphy Ramírez on 08-31-2024 Immature granulocytes/100 WBC (Bld) 0.500 % 0.0-0.9 [facility] Comment on above: IG% - Immature Granu locytes (promyelocytes, myelocytes and metamyelocytes) > 1% indicates that a LEFT SHIFT is Present. Ketones Test strip Ql (U)Ord ered By: Murphy Ramírez on 08-31-2024 Ketones Ql (U) Negative Negative [facility] L499.0042on 08-31-2024 Trop T High Sen 13 ng/L Normal <=14 [facility] Comment on above: Result Comment: Tracie davis via OM: Ordered Performed By: #### L 100.0100, L500.2500 #### [facility] [address] [place], [address] L501.4021on 08-31-2024 Trop T High Sen 12 ng/L Normal <=14 [facility] Comment on above: Performed By: #### L 100.0100, L500.2500 #### [facility] [address] [place], [address] Lymphocytes Auto (Unsp spec) [#/Vol]Ordered By: Murphy Ramírez on 08-31-2024 Lymphocytes (Bld) [#/Vol] 2.74 10*3/uL 0.83-4.51 [facility] MCV (mean corpuscular volume ) determinationOrdered By: Murphy Ramírez on 08-31-2024 MCV (RBC) [Entitic vol] 90.2 fL Normal 81-99 [facility] Comment on above: Performed By: #### L 100.0100, L500.2500 #### [facility] [address] [place], [address] Mean corpuscular hemoglobin (MCH) determinationOrdered By: Murphy Ramírez on 08-31-2024 MCH (RBC) [Entitic mass] 30.7 pg Normal 27.0-32.0 [facility] Comment on above: Performed By: #### L 100.0100, L500.2500 #### [facility] [address] [place], [address] Mean corpuscular hemoglobin concentration (MCHC) determinationOrdered By: Murphy Ramírez on 08-31-2024 MCHC (RBC) [Mass/Vol] 34.0 g/dL Normal 32-36 [facility] Comment on above: Performed By: #### L 100.0100, L500.2500 #### [facility] [address] [place], [place], [id number] Mean platelet volume determi nationOrdered By: Murphy Ramírez on 08-31-2024 Platelet mean volume (Bld) [Entitic vol] 10.7 fL Normal 6.2-12.0 [facility] Comment on above: Performed By: #### L 100.0100, L500.2500 #### [facility] [address] [place], [address] Methadone, urineOrdered By: Severiano Gordillo on 08-31-2024 Urine Methadone Screen Negative < 300 ng/mL [facility] Microscopic analysis of urin e for red blood cells (RBC)Ordered By: Murphy Ramírez on 08-31-2024 Microscopic analysis of urine for red blood cells (RBC) 0 SEEN /hpf 0-5 [facility] Urine RBC 0 SEEN /hpf 0-5 [facility] Monocyte percentageOrdered B y: Murphy Ramírez on 08-31-2024 Monocytes/100 WBC (Bld) 9.1 % Normal 0-10 [facility] Comment on above: Performed By: #### L 100.0100, L500.2500 #### [facility] [address] [place], [address] Mucus LM Ql (Urine sed)Order ed By: Murphy Ramírez on 08-31-2024 Mucus Ql (Urine sed) 0 SEEN /hpf [facility] Natriuretic peptide.B prohor josue N-Terminal [Mass/volume] in Serum or PlasmaOrdered By: Murphy Ramírez on 08-31-2024 Natriuretic peptide B (Bld) [Mass/Vol] 245 pg/mL Normal <=1800 [facility] Comment on above: Heart Failure Unlike ly: < 300 pg/mLHeart Failure Likely< 50 Years: > 450 pg/mL50-75 Years: > 900 pg/mL>75 Years: > 1800 pg/mL Result Comment: Hear t Failure Unlikely: < 300 pg/mL Heart Failure Likely < 50 Years: > 450 pg/mL 50-75 Years: > 900 pg/mL >75 Years: > 1800 pg/mL Performed By: #### L 100.0100, L500.2500 #### [facility] [address] [place], [place], [id number] Natriuretic peptide.B prohormone N-Terminal [Mass/Vol] 245 pg/mL <1800 [facility] Comment on above: Heart Failure Unlike ly: < 300 pg/mLHeart Failure Likely< 50 Years: > 450 pg/mL50-75 Years: > 900 pg/mL>75 Years: > 1800 pg/mL Neutrophil percentageOrdered By: Murphy Ramírez on 08-31-2024 Neutrophils/100 WBC (Bld) 61.5 % Normal 47-70 [facility] Comment on above: Performed By: #### L 100.0100, L500.2500 #### [facility] [address] [place], [address] Nitrite Test strip Ql (U)Ord ered By: Murphy Ramírez on 08-31-2024 Nitrite Ql (U) Negative Negative [facility] No Panel InformationOrdered By: Severiano Gordillo on 08-31-2024 Urine Buprenorphine Qualitative Negative < 200 ng/mL [facility] Urine Oxycodone Screen Negative < 100 ng/mL [facility] Nucleated red blood cell per centageOrdered By: Murphy Ramírez on 08-31-2024 Nucleated RBC/100 WBC (Bld) [Ratio] 0 % 0-5 [facility] Platelet countOrdered By: Elsa Ramírez on 08-31-2024 Platelets (Bld) [#/Vol] 296 10*3/uL Normal 150-450 [facility] Comment on above: Performed By: #### L 100.0100, L500.2500 #### [facility] [address] [place], [address] Potassium measurement (mass/ volume)Ordered By: Murphy Ramírez on 08-31-2024 Potassium [Moles/Vol] 4.2 mmol/L Normal 3.3-5.1 [facility] Comment on above: Performed By: #### L 100.0100, L500.2500 #### [facility] [address] [place], [address] Protein Test strip Ql (U)Ord ered By: Murphy Ramírez on 08-31-2024 Protein Ql (U) Negative Negative [facility] Quantitative urine opiates m easurementOrdered By: Severiano Gordillo on 08-31-2024 Opiates Ql (U) Negative < 300 ng/mL [facility] Screening urine fentanyl sandy surementOrdered By: Severiano Gordillo on 08-31-2024 fentaNYL Screen Ql (U) Negative [facility] Serum creatinine measurement (mass/volume)Ordered By: Murphy Ramírez on 08-31-2024 Creatinine [Mass/Vol] 0.99 mg/dL Normal 0.70-1.20 [facility] Comment on above: Performed By: #### L 100.0100, L500.2500 #### [facility] [address] [facility] [place], [address] Serum globulin measurementOr dered By: Murphy Ramírez on 08-31-2024 Globulin (S) [Mass/Vol] 2.7 g/dL Normal 2.2-4.2 [facility] Comment on above: Performed By: #### L 100.0100, L500.2500 #### [facility] [address] [place], [address] Serum glucose measurement (m ass/volume)Ordered By: Murphy Ramírez on 08-31-2024 Glucose [Mass/Vol] 155 mg/dL High 70-99 [facility] Comment on above: Performed By: #### L 100.0100, L500.2500 #### [facility] [address] [facility] [place], [address] Serum or plasma alanine jackson otransferase (ALT) measurementOrdered By: Murphy Ramírez on 08-31-2024 ALT [Catalytic activity/Vol] 26 U/L Normal <=34 [facility] Comment on above: Performed By: #### L 100.0100, L500.2500 #### [facility] [address] [place], [address] Serum or plasma albumin alfred urement (mass/volume)Ordered By: Murphy Ramírez on 08-31-2024 Albumin [Mass/Vol] 3.8 g/dL Normal 3.4-4.8 [facility] Comment on above: Performed By: #### L 100.0100, L500.2500 #### [facility] [address] [place], [address] Serum or plasma albumin/glob ulin mass ratioOrdered By: Murphy Ramírez on 08-31-2024 Albumin/Globulin [Mass ratio] 1.4 {ratio} Normal 0.9-2.4 [facility] Comment on above: Performed By: #### L 100.0100, L500.2500 #### [facility] [address] [place], [address] Serum or plasma alkaline windy sphatase measurementOrdered By: Murphy Ramírez on 08-31-2024 ALP [Catalytic activity/Vol] 123 U/L High 35-104 [facility] Serum or plasma calcium alfred urement (mass/volume)Ordered By: Murphy Ramírez on 08-31-2024 Calcium [Mass/Vol] 9.1 mg/dL Normal 7.6-11.0 [facility] Comment on above: Performed By: #### L 100.0100, L500.2500 #### [facility] [address] [place], [address] Serum or plasma ethanol alfred urement (mass/volume)Ordered By: Severiano Gordillo on 08-31-2024 Ethanol [Mass/Vol] mg/dL <10.1 [facility] Comment on above: This test is for med ical purposes only. The legal definition of intoxication varies according to local law. Serum or plasma urea nitroge n measurement (mass/volume)Ordered By: Murphy Ramírez on 08-31-2024 Urea nitrogen [Mass/Vol] 19 mg/dL Normal 4-19 [facility] Comment on above: Performed By: #### L 100.0100, L500.2500 #### [facility] [address] [place], [place], [address] Sodium levelOrdered By: Bekah Ramírez on 08-31-2024 Sodium [Moles/Vol] 136 mmol/L Normal 133-145 [facility] Comment on above: Performed By: #### L 100.0100, L500.2500 #### [facility] [address] [place], [place], [id number] Squamous epithelial cells de tection in urine sediment by light microscopyOrdered By: Murphy Ramírez on 08-31-2024 Epithelial cells.squamous LM Ql (Urine sed) 5-10 SEEN /hpf 5-10 [facility] TSH DL <= 0.005 mIU/L QnOrde red By: Severiano Gordillo on 08-31-2024 Thyroid Stimulating Hormone (TSH) 2.070 uIU/mL 0.300-4.200 [facility] TSH Qn 2.070 uIU/mL 0.300-4.200 [facility] Total proteinOrdered By: My Ramírez on 08-31-2024 Protein [Mass/Vol] 6.6 g/dL 5.9-8.4 [facility] Troponin T.cardiac High sens itivity method [Mass/Vol]Ordered By: Murphy Ramírez on 08-31-2024 Troponin T High Sensitivity 2 Hour 13 ng/L <14 [facility] Troponin T High Sensitivity 12 ng/L <14 [facility] Troponin T.cardiac [Mass/vol ume] in Serum or Plasma by High sensitivity methodOrdered By: Murphy Ramírez on 08-31-2024 Troponin T.cardiac High sensitivity method [Mass/Vol] 13 ng/L <14 [facility] Troponin T.cardiac High sensitivity method [Mass/Vol] 12 ng/L <14 [facility] Urinalysis, Completeon 08-31 BACTERIA 2+ /hpf Normal None Seen [facility] Comment on above: Order Comment: CLEAN CATCH Performed By: #### L 100.0100, L500.2500 #### [facility] [address] [place], [address] EPI,SQUAMOUS 5-10 SEEN Normal 5-10 [facility] Comment on above: Order Comment: CLEAN CATCH Performed By: #### L 100.0100, L500.2500 #### [facility] [address] [place], [address] WBC 0-5 SEEN Normal 0-5 [facility] Comment on above: Order Comment: CLEAN CATCH Performed By: #### L 100.0100, L500.2500 #### [facility] [address] [place], [address] Mucus Ql (Urine sed) 0 SEEN Normal [facility] Comment on above: Order Comment: CLEAN CATCH Performed By: #### L 100.0100, L500.2500 #### [facility] [address] [place], [address] RBC 0 SEEN Normal 0-5 [facility] Comment on above: Order Comment: CLEAN CATCH Performed By: #### L 100.0100, L500.2500 #### [facility] [address] [place], [address] Urine benzodiazepine levelOr dered By: Severiano Gordillo on 08-31-2024 Benzodiazepines Ql (U) Negative < 200 ng/mL [facility] Urine blood detectionOrdered By: Murphy Ramírez on 08-31-2024 Urine Occult Blood Negative Negative [facility] Urine clarityOrdered By: My Ramírez on 08-31-2024 Clarity (U) Clear Clear [facility] Urine cocaine levelOrdered B y: Severiano Gordillo on 08-31-2024 Cocaine Ql (U) Negative < 300 ng/mL [facility] Urine color determinationOrd ered By: Murphy Ramírez on 08-31-2024 Color (U) Yellow Yellow [facility] Urine qcgsm-9-[id number] abinol (THC) measurementOrdered By: Severiano Gordillo on 08-31-2024 Cannabinoids Screen Ql (U) Negative < 50 ng/mL [facility] Urine glucose detectionOrder ed By: Murphy Ramírez on 08-31-2024 Glucose Ql (U) Normal mg/dl Normal [facility] Urine leukocyte esterase det ection by dipstickOrdered By: Murphy Ramírez on 08-31-2024 Leukocyte esterase Test strip Ql (U) Negative Negative [facility] Urine pHOrdered By: Murphy sol on 08-31-2024 pH (U) 6.0 [pH] 5.0 - 8.0 [facility] Urine phencyclidine (PCP) de tectionOrdered By: Severiano Gordillo on 08-31-2024 Phencyclidine Ql (U) Negative < 25 ng/mL [facility] Urine sediment bacteria coun t by microscopy (number/high power field)Ordered By: Murphy Ramírez on 08-31-2024 Bacteria LM.HPF (Urine sed) [#/Area] 2 /[HPF] None Seen [facility] Urine specific gravity measu rementOrdered By: Murphy Ramírez on 08-31-2024 Specific gravity (U) [Rel density] 1.010 1.002-1.030 [facility] Urine urobilinogen measureme ntOrdered By: Murphy Ramírez on 08-31-2024 Urobilinogen Ql (U) Normal mg/dl Normal [facility] Urobilinogen Ql (U)Ordered B y: Murphy Ramírez on 08-31-2024 Urine Urobilinogen Normal mg/dl Normal [facility] White blood cell (WBC) count Ordered By: Murphy Ramírez on 08-31-2024 WBC (Bld) [#/Vol] 11.0 10*3/uL Normal 4.4-11.0 [facility] Comment on above: Performed By: #### L 100.0100, L500.2500 #### [facility] [address] [place], [place], [address] White blood cell countOrdere d By: Murphy Desiree on 08-31-2024 Urine WBC 0-5 SEEN /hpf 0-5 [facility] White blood cell count 0-5 SEEN /hpf 0-5 [facility] fentaNYL Screen Ql (U)Ordere d By: Severiano Gordillo on 08-31-2024 Urine Fentanyl Screen Negative [facility] Knee 3 Viewson 05-20-2024 Knee 3 Views [facility] Imaging Services [address] [place], [place] [address] Knee 3 Views MR#: [id number] Acct: [id number] Name: CHELSEA MOODY Rep #: [id number] : 1940 F 83 From: Chalo Herring MD PCP: Dr. Kurt Lieberman MD Status: REG CLI Study: Knee 3 Views Date of Exam: 05/20/24 Exam# [id number] Ordering Dr: Kurt Lieberman MD [id number] STUDY: X-RAY - LEFT KNEE REASON FOR [...] IMPRESSION: CPPD with mild arthrosis. Electronically Signed: Chalo Herring MD at 17:25 EST , CC: Dr. Kurt Lieberman MD Tumbler Drier Operator: Signed Normal [facility] ALBUMIN, RANDOM URINE W/NASREEN Sahni 12-19-2023 ALBUMIN, URINE <0.2 Normal See Note: [facility] Comment on above: Result Comment: Refe rence Range: Reference Range Not established Performed By: #### 6 399, 7600, 57212, 6517, 496 #### [facility] [address], [address] [place] [address] Snack Steward: Channing Quiroga MD ALBUMIN/CREATININE RATIO, RANDOM URINE [...] category. Performed By: #### 6 399, 7600, 43373, 6517, 496 #### [facility] [address], [address] [place] [address] Snack Steward: Channing Quiroga MD Creatinine (U) [Mass/Vol] 26 mg/dL Normal 20-275 [facility] Comment on above: Performed By: #### 6 399, 7600, 16640, 6517, 496 #### [facility] [address], [address] [place] [address] Snack Steward: Channing Quiroga MD CBC (INCLUDES DIFF/PLT)on Basophils (Bld) [#/Vol] 0.067 10*3/uL Normal 0-200 [facility] Comment on above: Performed By: #### 6 399, 7600, 47489, 6517, 496 #### [facility] [address], [address] [place] [address] Snack Steward: Channing Quiroga MD Basophils/100 WBC (Bld) 0.9 % Normal [facility] Comment on above: Performed By: #### 6 399, 7600, 87446, 6517, 496 #### [facility] [place] [address] Snack Steward: Channing Quiroga MD Eosinophils (Bld) [#/Vol] 0.311 10*3/uL Normal 15-500 [facility] Comment on above: Performed By: #### 6 399, 7600, 67694, 6517, 496 #### [facility] [place] [address] Snack Steward: Channing Quiroga MD Eosinophils/100 WBC (Bld) 4.2 % Normal [facility] Comment on above: Performed By: #### 6 399, 7600, 54055, 6517, 496 #### [facility] [place] [address] Snack Steward: Channing Quiroga MD Erythrocyte distribution width (RBC) [Ratio] 13.9 % Normal 11.0-15.0 [facility] Comment on above: Performed By: #### 6 399, 7600, 77818, 6517, 496 #### [facility] [place] [address] Snack Steward: Channing Quiroga MD Hematocrit (Bld) [Volume fraction] 42.5 % Normal 35.0-45.0 [facility] Comment on above: Performed By: #### 6 399, 7600, 86946, 6517, 496 #### [facility] [place] [address] Snack Steward: Channing Quiroga MD Hemoglobin (Bld) [Mass/Vol] 13.3 g/dL Normal 11.7-15.5 [facility] Comment on above: Performed By: #### 6 399, 7600, 01306, 6517, 496 #### [facility] [place] [address] [place] [address] Snack Steward: Channing Quiroga MD Lymphocytes (Bld) [#/Vol] 2.827 10*3/uL Normal 850-3900 [facility] Comment on above: Performed By: #### 6 399, 7600, 78773, 6517, 496 #### [facility] [place] [address] Snack Steward: Channing uQiroga MD Lymphocytes/100 WBC (Bld) 38.2 % Normal [facility] Comment on above: Performed By: #### 6 399, 7600, 29130, 6517, 496 #### [facility] [place] [address] Snack Steward: Channing Quiroga MD MCH (RBC) [Entitic mass] 29.8 pg Normal 27.0-33.0 [facility] Comment on above: Performed By: #### 6 399, 7600, 66648, 6517, 496 #### [facility] [place] [address] Snack Steward: Channing Quiroga MD MCHC (RBC) [Mass/Vol] 31.3 g/dL Low 32.0-36.[address] [facility] Comment on above: Performed By: #### 6 399, 7600, 58506, 6517, 496 #### [facility] [place] [address] Snack Steward: Channing Quiroga MD MCV (RBC) [Entitic vol] 95.3 fL Normal 80.0-100.0 [facility] Comment on above: Performed By: #### 6 399, 7600, 53807, 6517, 496 #### [facility] [place] [address] Snack Steward: Channing Quiroga MD Monocytes (Bld) [#/Vol] 0.792 10*3/uL Normal 200-950 [facility] Comment on above: Performed By: #### 6 399, 7600, 06577, 6517, 496 #### [facility] of [address], [address] [place] [address] Snack Steward: Channing Quiroga MD Monocytes/100 WBC (Bld) 10.7 % Normal [facility] Comment on above: Performed By: #### 6 399, 7600, 35857, 6517, 496 #### [facility] of [address], [address] [place] [address] Snack Steward: Channing Quiroga MD Neutrophils (Bld) [#/Vol] 3.404 10*3/uL Normal 1102-5627 [facility] Comment on above: Performed By: #### 6 399, 7600, 97280, 6517, 496 #### [facility] of [address], [address] [place] [address] Snack Steward: Channing Quiroga MD Neutrophils/100 WBC (Bld) 46 % Normal [facility] Comment on above: Performed By: #### 6 399, 7600, 92555, 6517, 496 #### [facility] [place] [address] Snack Steward: Channing Quiroga MD Platelet mean volume (Bld) [Entitic vol] 11.4 fL Normal 7.5-12.5 [facility] Comment on above: Performed By: #### 6 399, 7600, 52790, 6517, 496 #### [facility] of [address], [address] [place] [address] Snack Steward: Channing Quiroga MD Platelets (Bld) [#/Vol] 309 10*3/uL Normal 140-400 [facility] Comment on above: Performed By: #### 6 399, 7600, 54530, 6517, 496 #### [facility] [place] [address] Snack Steward: Channing Quiroga MD RBC (Bld) [#/Vol] 4.46 10*6/uL Normal 3.80-5.10 [facility] Comment on above: Performed By: #### 6 399, 7600, 91867, 6517, 496 #### [facility] [place] [address] Snack Steward: Channing Quiroga MD WBC (Bld) [#/Vol] 7.4 10*3/uL Normal 3.8-10.8 [facility] Comment on above: Performed By: #### 6 399, 7600, 76034, 6517, 496 #### [facility] [place] [address] Snack Steward: Channing Quiroga MD [facility]-20[facility] Albumin [Mass/Vol] 4.2 g/dL Normal 3.6-5.1 [facility] Comment on above: Performed By: #### 6 399, 7600, 12216, 6517, 496 #### [facility] [place] [address] Snack Steward: Channing Quiroga MD Albumin/Globulin [Mass ratio] 1.6 {ratio} Normal 1.0-2.5 [facility] Comment on above: Performed By: #### 6 399, 7600, 35224, 6517, 496 #### [facility] [place] [address] Snack Steward: Channing Quiroga MD ALP [Catalytic activity/Vol] 79 U/L Normal 37-153 [facility] Comment on above: Performed By: #### 6 399, 7600, 61070, 6517, 496 #### [facility] [place] [address] Snack Steward: Channing Quiroga MD ALT [Catalytic activity/Vol] 27 U/L Normal 6-29 [facility] Comment on above: Performed By: #### 6 399, 7600, 37625, 6517, 496 #### [facility] [place] [address] Snack Steward: Channing Quiroga MD AST [Catalytic activity/Vol] 18 U/L Normal 10-35 [facility] Comment on above: Performed By: #### 6 399, 7600, 16012, 6517, 496 #### [facility] [place] [address] Snack Steward: Channing Quiroga MD Bilirubin [Mass/Vol] 0.4 mg/dL Normal 0.2-1.2 [facility] Comment on above: Performed By: #### 6 399, 7600, 03085, 6517, 496 #### [facility] [place] [address] Snack Steward: Channing Quiroga MD Calcium [Mass/Vol] 9.6 mg/dL Normal 8.6-10.4 [facility] Comment on above: Performed By: #### 6 399, 7600, 65501, 6517, 496 #### [facility] [place] [address] Snack Steward: Channing Quiroga MD Chloride [Moles/Vol] 104 mmol/L Normal 98-110 [facility] Comment on above: Performed By: #### 6 399, 7600, 31356, 6517, 496 #### [facility] [place] [address] Snack Steward: Channing Quiroga MD CO2 [Moles/Vol] 27 mmol/L Normal 20-32 [facility] Comment on above: Performed By: #### 6 399, 7600, 69408, 6517, 496 #### [facility] [place] [address] Snack Steward: Channing Quiroga MD Creatinine [Mass/Vol] 1.11 mg/dL High 0.60-0.[address] [facility] Comment on above: Performed By: #### 6 399, 7600, 79732, 6517, 496 #### [facility] [place] [address] Snack Steward: Channing Quiroga MD GFR/1.73 sq M.predicted among non-blacks MDRD (S/P/Bld) [Vol rate/Area] 49 mL/min/{1.73_m2} Low > OR = 60 [facility] Comment on above: Performed By: #### 6 399, 7600, 46033, 6517, 496 #### [facility] [place] [address] Snack Steward: Channing Quiroga MD Globulin (S) [Mass/Vol] 2.7 g/dL Normal 1.9-3.7 [facility] Comment on above: Performed By: #### 6 399, 7600, 51045, 6517, 496 #### [facility] [place] [address] Snack Steward: Channing Quiroga MD Glucose [Mass/Vol] 137 mg/dL High 65-99 [facility] Comment on above: Result Comment: Fasting reference interval For someone without known diabetes, a glucose value >125 mg/dL indicates that they may have diabetes and this should be confirmed with a follow-up test. Performed By: #### 6 399, 7600, 74356, 6517, 496 #### [facility] [place] [address] Snack Steward: Channing Quiroga MD Potassium [Moles/Vol] 4.9 mmol/L Normal 3.5-5.[address] [facility] Comment on above: Performed By: #### 6 399, 7600, 53703, 6517, 496 #### [facility] [place] [address] Snack Steward: Channing Quiroga MD Protein [Mass/Vol] 6.9 g/dL Normal 6.1-8.1 [facility] Comment on above: Performed By: #### 6 399, 7600, 53134, 6517, 496 #### [facility] [place] [address] Snack Steward: Channing Quiroga MD Sodium [Moles/Vol] 138 mmol/L Normal 135-146 [facility] Comment on above: Performed By: #### 6 399, 7600, 85815, 6517, 496 #### [facility] [address], [address] [place] [address] Snack Steward: Channing Quiroga MD Urea nitrogen [Mass/Vol] 23 mg/dL Normal 7-25 [facility] Comment on above: Performed By: #### 6 399, 7600, 17160, 6517, 496 #### [facility] [address], [address] [place] [address] Snack Steward: Channing Quiroga MD Urea nitrogen/Creatinine [Mass ratio] 21 mg/mg Normal 6-22 [facility] Comment on above: Performed By: #### 6 399, 7600, 78948, 6517, 496 #### [facility] [address], [address] [place] [address] Snack Steward: Channing Quiroga MD HEMOGLOBIN A1con 12-19-2023 HEMOGLOBIN [...] change in test platforms from the [employer] to the Lucia francesco c503 may have shifted HbA1c results compared to historical results. Based on laboratory validation testing conducted at [facility], the Lucia platform relative to the Pope [...] recommended. Performed By: #### 6 399, 7600, 73956, 6517, 496 #### [facility] [address], [address] [place] [address] Snack Steward: Channing Quiroga MD LIPID PANEL, [facility] 11-24 Cholesterol [Mass/Vol] 247 mg/dL High <200 [facility] Comment on above: Performed By: #### 6 399, 7600, 88373, 6517, 496 #### [facility] [address], [address] [place] [address] Snack Steward: Channing Quiroga MD Cholesterol in HDL [Mass/Vol] 56 mg/dL Normal > OR = 50 [facility] Comment on above: Performed By: #### 6 399, 7600, 62420, 6517, 496 #### [facility] [address], [address] [place] [address] Snack Steward: Channing Quiroga MD Cholesterol in LDL [Mass/Vol] 159 mg/dL High [facility] Comment on above: Result Comment: Refe rence range: <100 Desirable range <100 mg/dL for primary prevention; <70 mg/dL for patients with CHD or diabetic patients with > or = 2 CHD risk factors. LDL-C is now calculated using the Trent-Agnes calculation, which is a validated novel method providing better accuracy than the Friedewald equation in the estimation of LDL-C. Trent SHER et al. ELIZ. 2013;310(19): 3822-9921 (http://education.Shopcade.MasCupon/faq/DSD538) Performed By: #### 6 399, 7600, 55089, 6517, 496 #### [facility] [address], [address] [place] [address] Snack Steward: Channing Quiroga MD Cholesterol.total/Analy sterol in HDL [Mass ratio] 4.4 {ratio} Normal <5.0 [facility] Comment on above: Performed By: #### 6 399, 7600, 88271, 6517, 496 #### [facility] [address], [address] [place] [address] Snack Steward: Channing Quiroga MD NON HDL CHOLESTEROL 191 mg/dL (calc) High <130 [facility] Comment on above: Result Comment: For patients with diabetes plus 1 major ASCVD risk factor, treating to a non-HDL-C goal of <100 mg/dL (LDL-C of <70 mg/dL) is considered a therapeutic option. Performed By: #### 6 399, 7600, 09610, 6517, 496 #### [facility] [address] [facility], [address] [place] [address] Snack Steward: Channing Quiroga MD Triglyceride [Mass/Vol] 170 mg/dL High <150 [facility] Comment on above: Performed By: #### 6 399, 7600, 76936, 6517, 496 #### [facility] [address] [facility], [address] [place] [address] Snack Steward: Channing Quiroga MD [facility] ([facility]) CHELSEA MOODY ([id number]) 1940 F Date Time Provider Department 11/21/23 [...] November 21, 2023 9:50 AM Joy Gudino APRN.ASSISTANT CREDIT MANAGER 11/21/2023 10:02 AM Signed FOLLOW UP VISIT NAME: Chelsea Moody CLINIC NO.: [id number] DATE OF SERVICE: 11/21/2023 : 1940 REFERRING [...] or sooner if needed. __ Joy Gudino APRN.ASSISTANT CREDIT MANAGER Allergies As of Date: 11/21/2023 (Not on File) Date Reviewed: 11/14/2023 Reviewed by: Chalo Acosta MD - Fully Assessed Primary Visit [...] Status:Closed by JOY GUDINO on 11/21/23 Normal [facility] SURGICAL PATHOLOGYOrdered By : Rylee Alvarez on 11-19-2023 Case Report Surgical Pathology Report Case: [id number] Authorizing Provider: Chalo Acosta MD Collected: 11/14/2023 04:05 PM Ordering Location: General Surgery Received: 11/14/2023 04:28 PM Pathologist: Rylee Alvarez MD Specimen: Skin Lesion/Soft Tissue Ulcer (Specify site in comment), rt upper lip [facility] Work Phone: Clinical History o2nwsEXxDBQcy8jvEWPo bG ZoJaHxUqGvWmOqZrg1YZVh fgD7Xmv0TTTfBYaigE3uTK NxIFxnV7ycjkWkpFTzAKMp HAz0zW4erPnosY5sZzSyWq KaHBVkDUOkk25ii7Wwekde sFQwaWDsQGPsySctU3FiO1 z7RTNdsNSpFMqujAldNNMr fQ== [facility] Work Phone: Diagnosis Comment g1hinUDoYKOsqDBpQJBg NV eokbMiULCruIVuV8Akpzcv TYiePX5lJV3bjGnplBIwgN IxUTLlBpRyj5vkk056jJRz y8ynCTFJvepwnMl9hRiiI2 2mv0V4VnfjM07mcKXwVOY4 GLYfQRTwnHHoXCIjDZU3VV KnsEAzZ4ocGZGtGI6vbovf TJjyNXbnWZDioZA5FXGbfS NcF6XjYLFwQZajZAQrpbk5 KzBnWv6ttQNzpJocTHdqJY OsUUOaZIrwXXDwGaLpEH1p WGogVBxic7lbhdTaxEHfZZ AeSK9djbHvr8g8AMV7G6hv FRSwc2j8hNtpZSPsOIYcyW BmuoSwNlVjLUK2tP7scmAo psGhzSSnnJGcVm7xVFF6SC 9cskQ8iB6aZrRrrDYilW== [facility] Work Phone: FINAL DIAGNOSIS m2rpiDPzSUJqfRNgPQTe NV ohwzUaKSGwdDUoQ3Cttusq IXymXT1eGU0njNjtnDZumS WeBYIzUvKzh2nxf896cTDo h9lpQESVdmajeIp7nHelA9 2wl4T5VjooG13noLSqMLY1 VLIfXQScoRGoQWCcZBM2HL LzlBUzH4rdUHCoBZ7eagwe NTraNHlaOMBtjBP6HJAwpD IrA3PhKEDiRQpeZAFqlng6 EgKcHg8kgHDbnFbmUUrpQI LcMEYpVAonMVCuZyMtNA1e A8xbxvemnszktVEjvLFiUS UmzSqhQABckWLlc4escrdl jMHyEI1kPV80BBBebaMnl2 ZmqJ4feCWfUSJokxDsOXAx VKFtgOQoiZ43paFnZLlgPN YqahQinz1wSAzgm6ZjGHXc oM2cjpIjTEIrdr6= [facility] Work Phone: Gross Description q2lphFTgCIIlrOBnCWBp NV ovwpDnJRFndURcE9Asnmfy LLuoEK4bOY9wtXbnnSXokF TqQGOdJdBev5yys570jWIy q6woVUVNkkmmnOy7rUgqC6 7da5T0UnytY41qbAHyXOB3 DXSdBCNdlRMqJMCfVDH3FC MstDNnE9brFIYgCS0xgazk SSifKWssCOKzuNW4XGDqgJ XkO8BiRRWsQXvnRXZiyjx8 XpIkTz4rfONxzExyNDtuOx eoaXpky0JrkUBdZOqjEHCr HNGnWHislfkeLQr6ZCZqJQ ecaXYgSA1tmTqkXtcbfIvl b0HdqBHnENmlWTUuTVXjDD ahFBBxP8ATHREgGrCoEWTh BKpdOGe3WSq0LM1ZYiEmWK Z9QNZ0Qvg3HHJhZHz4JBnv SO1WRCOxMMOkCoRyDotmWH L5RWL4DYpunTAbOUakw2Eg MzIkUCPkLUsnouG1IPImbv SblJrnlA2tUbRgHlERGeAD a6xeRIrrj8skss7Ml5W2HB Nwx5U3YUUEzOUsnyJpY0Hq B7kavGPckGNgGEgaBENjfP 1lbnQpXHBhclxwYXJkXHNi DrHeYWLoD7uhHfZiZDFmUC luXGZzMjAgTGFiZWxlZDog GyGBwBimySO9oJTpfkMjlO XbaVErqK7qN0ZpZ0EnNeuz YXJccGFyZCBSZWNlaXZlZD nnWe2yjBLbqQ5wyFMtZK72 kAKuswBiPnP4rQZliVQzKp NcA87vmcVpAwOnBEVfflWK hLNaaT0ztzBfjV2nciAau8 5zOiAwLjkgeCAwLjggeCAw EpoaM42caURqGD25T84xSE eeBOVea0NpcPust0fsoSEn aHZcKDTkmd5zzjYwh5CkGO 83d2iwNVlcf2ctkpF3zHCl IGNlbnRyYWwgdWxjZXJhdG qxtbGhVALcgJQakhkrLY67 GImcPI31HPgqWE29PEQdCg XRsBkkAKplt6qqyaMvCaL1 yaH0qSLbhY1bHDUueBKdC9 yjPvEpQAMbN2xzJHliu1Mq IGJsdWUpXHBhciBDYXNzZX D2PUVPo3DaZlZOm0MoqBh2 SLP3St5dxOUrUVYwEGP0dC 4fCTDwzX5nI3Fez7M7vCIo QTEuXHBhclxwYXJccGFyIE ROQEx4ciHwQzWxMBAgFkDz EEP5UpheND0uvGVkXHGvfe RZrg4rmuBxvWLsvM2mjQzv kpBcLNNqo6EoDNZmVPBbF9 zfjvQlTB1tKVJwjT9qGqiy OTUwMCBFdWNsaWQgQXZlbn OhCNMXcEC7WSsfrzLfIT5Q EKJ6VXc1HTSEFNPvWQK3TY L7SYNxMXEmlRSwQCEpKlXl SDWoE8gbBFMgo6rdxBifv1 TjsXRbZL84DKWhjPLrWBS4 ZA1ddQwjTPR4 [facility] Work Phone: Performing Lab w0tfkGUdMICtlINfPzIo MD CuNMMdd6obZVFbvLWcXhEd MzNcZnRuYmpcdWMxXGRlZm Gui4sfx737jDAhl1dpMOEx DuJ1iVKlIJKulYOxK631TP LsAInws6cvy5GbLMVocHFi v6C3GAXKuungsCc5zWuyP3 6ey9N8WwquE2xsQIFiFMBa Y2FnIC5qAABzWae3USY3BI R0LRRhYKGwZ9LrPA9kLBUq wJRgPQy5h9urdQmbFJEfUL I7x6fpNLvbxcDtBM7ess4m nTe2o9qfyhKdEUWbNLFhhN VAPYUnG5UtxInbLz1irXq0 xHsgTdohQCG4Trc4VW6rom 76vrk2gZgiESOwhusdHpI0 JWqiEMSplgkiWMd5UVfcCI SeiHT7VVYsoIBbA1HcCAwc HW9klgo0NGI3CCybPQPaLm L1OBEvxILzVOXheEcpMPad n041ZEV0JhNdYU2hZ3Krn1 K4fL8atZBxBPXetVSgKiSq HCAewf6obCIdPWlxc8GlGD J8huK2nRTkfQJqZLMpHU21 Nxmpj5VlUgdzs7YjG91bsY L8VQppp3inLM8hSpP2gtIv VMvyf8pxxJ1qWvA9UMxhHB 6wGW1nROPyjB8kxhvyOGQy YnJkcmhlYWRccGdicmRyZm 6ikJziPCH2KWqvZ6nhkP5w ZvN9WKmuE8rjwY8hWAc2KZ alxDV4LZGcjR9eEH0fpjtw m7apUYrfKNqeODTbgcZ1oq UjQIQwiTBmV1MuuH0wXGKj SO2eliqfr0szEFN7CNrcLO GoNNN0DfPuQJEkd0Pmnir3 NzJoj7HeaRXlPFkdH06cd2 45AWVxmrDqM3aweVYivmfc wEMdyekuQWyngzN2PWOaIH BsYWluXGYxXGZzMjBcbGFu ZzEwMzNcaGljaFxmMVxkYm ZqTCPtLZctL8apAdRwTtQs LIVBoMYnhj3ciHpfESjcrV CusAYrePU3aP6wQNUibxHz yg8tXLOvfOOZzAR2AHrupl TmI6ouevatOEE9VULrYCT4 I9tkGGJYsiSoPVUuXWWhfN KgZMYRJFM6YCF5COTfWBRT YZBgHGD3WNH0BQKrXOQcfX FyXHBhclxwYXJkXHBsYWlu OOJmEQUjKlVeyMrypI3pAy WnZaWvWZhfGJ8gMBEiB0ar tVAeQWBdUXYsG0rlJgDbdB 9jaFxmMVxjZjJcZnMyMFxs sKCbtJNARKTjnvQ7s3K2FG xwbGFpblxmMVxmczIwXGxh vituDBPcUSuuW0grOsIkEY MsjYmmQDvqj6XxLVJoCBKf RiUhQSjhNMX4u0S9XQbiiR BbotPGXrQYTD5xcPBhpxaz IY1XQjiylABbxwdtAWoikv EzISjygcreLVEfQPwdP9va GbVhQBTcrVuvZVvkk9BzKJ YxXGZzMjJccGFyfQ== [facility] Work Phone: [facility] Work Phone: .GFRon 06-18-2019 GFR 63 ml/min/1.73sqm Normal [facility] ([place]) Comment on above: Result Comment: GFR [...] #### A 1C, LIPID, CMP, GFR #### [address] [address] GFR Non- 52 ml/min/1.73sqm Normal [facility] ([place]) Comment on above: Result Comment: GFR Population [...] #### A 1C, LIPID, CMP, GFR #### [address] [address] A1Con 06-18-2019 HbA1c (Bld) [Mass fraction] 7.0 % High 4.5-6.2 [facility] ([place]) Comment on above: Performed By: #### A 1C, LIPID, CMP, GFR #### [address] [address] CMP 06-18-2019 Albumin [Mass/Vol] 3.8 G/dL Normal 3.4-4.8 [facility] ([place]) Comment on above: Performed By: #### A 1C, LIPID, CMP, GFR #### [address] [address] Albumin/Globulin [Mass ratio] 1.3 {ratio} Normal 1.1-2.5 [facility] ([place]) Comment on above: Performed By: #### A 1C, LIPID, CMP, GFR #### [address] [address] ALP [Catalytic activity/Vol] 76 U/L Normal 40-135 [facility] ([place]) Comment on above: Performed By: #### A 1C, LIPID, CMP, GFR #### [address] [address] ALT [Catalytic activity/Vol] 77 U/L High 10-35 [facility] ([place]) Comment on above: Performed By: #### A 1C, LIPID, CMP, GFR #### [address] [address] AST [Catalytic activity/Vol] 31 U/L Normal 10-40 [facility] ([place]) Comment on above: Performed By: #### A 1C, LIPID, CMP, GFR #### [address] [address] Bili Total 0.2 mg/dL Normal 0.2-1.0 [facility] ([place]) Comment on above: Performed By: #### A 1C, LIPID, CMP, GFR #### [address] [address] Calcium [Mass/Vol] 9.4 mg/dL Normal 8.4-10.2 [facility] ([place]) Comment on above: Performed By: #### A 1C, LIPID, CMP, GFR #### [address] [address] Chloride [Moles/Vol] 104 mmol/L Normal 98-107 [facility] ([place]) Comment on above: Performed By: #### A 1C, LIPID, CMP, GFR #### [address] [address] CO2 [Moles/Vol] 28 mmol/L Normal 23-31 [facility] ([place]) Comment on above: Performed By: #### A 1C, LIPID, CMP, GFR #### [address] [address] Creatinine [Mass/Vol] 1.02 mg/dL Normal 0.55-1.02 [facility] ([place]) Comment on above: Performed By: #### A 1C, LIPID, CMP, GFR #### [address] [address] Electrolyte Balance 7.0 mEq/L Normal [facility] ([place] Comment on above: Performed By: #### A 1C, LIPID, CMP, GFR #### [address] [address] Globulin (S) [Mass/Vol] 3.0 G/dL Normal A [facility] ([place]) Comment on above: Performed By: #### A 1C, LIPID, CMP, GFR #### [address] [address] Glucose [Mass/Vol] 113 mg/dL High 83-110 [facility] ([place]) Comment on above: Performed By: #### A 1C, LIPID, CMP, GFR #### [address] [address] Potassium [Moles/Vol] 5.9 mmol/L High 3.5-5.1 [facility] ([place]) Comment on above: Performed By: #### A 1C, LIPID, CMP, GFR #### [address] [address] Protein [Mass/Vol] 6.8 G/dL Normal 6.4-8.2 [facility] ([place]) Comment on above: Performed By: #### A 1C, LIPID, CMP, GFR #### [address] [address] Sodium [Moles/Vol] 139 mmol/L Normal 136-145 [facility] ([place] Comment on above: Performed By: #### A 1C, LIPID, CMP, GFR #### [address] [address] Urea nitrogen [Mass/Vol] 20 mg/dL High 7-18 [facility] ([place]) Comment on above: Performed By: #### A 1C, LIPID, CMP, GFR #### [address] [address] Urea nitrogen/Creatinine [Mass ratio] 20 ratio Normal 7-27 [facility] ([place] Comment on above: Performed By: #### A 1C, LIPID, CMP, GFR #### [address] [address] LIPIDon 06-18-2019 Cholesterol [Mass/Vol] 196 mg/dL Normal 0-200 [facility] ([place] Comment on above: Result Comment: Chol esterol Reference Interval: Less than 200 Desirable 200-239 Borderline high risk 240 and above High risk Performed By: #### A 1C, LIPID, CMP, GFR #### [address] [address] Cholesterol in HDL [Mass/Vol] 42 mg/dL Normal 40-60 [facility] ([place]) Comment on above: Performed By: #### A 1C, LIPID, CMP, GFR #### [address] [address] Cholesterol in LDL [Mass/Vol] 125 mg/dL Normal 0-130 [facility] ([place]) Comment on above: Performed By: #### A 1C, LIPID, CMP, GFR #### [address] [address] Triglyceride [Mass/Vol] 145 mg/dL Normal 0-150 [facility] ([place]) Comment on above: Result Comment: Trig lyceride Reference Interval: Less than 150 Normal 150-199 Borderline high risk 200-499 High risk 500 or higher Very high risk Performed By: #### A 1C, LIPID, CMP, GFR #### [address] [address] Vital Signs Date Time Vital Sign Value Performing Clinician Facility 11-17-2024 18:52-0400 Body temperature 98.7 [degF] Dr. Kurt Lieberman MD Work Phone: [facility] 11-17-2024 18:52-0400 Diastolic blood pressure 46 mm[Hg] Dr. Kurt Lieberman MD Work Phone: [facility] 11-17-2024 18:52-0400 Heart rate 79 /min Dr. Kurt Lieberman MD Work Phone: [facility] 11-17-2024 18:52-0400 Respiratory rate 14 /min Dr. Kurt Lieberman MD Work Phone: [facility] 11-17-2024 18:52-0400 SaO2% (BldA) [Mass fraction] 98 % Dr. Kurt Lieberman MD Work Phone: [facility] 11-17-2024 18:52-0400 Systolic blood pressure 148 mm[Hg] Dr. Kurt Lieberman MD Work Phone: [facility] 11-17-2024 16:49-0400 Body mass index (BMI) [Ratio] 37.2 kg/m2 Dr. Kurt Lieberman MD Work Phone: [facility] 11-17-2024 16:49-0400 Body weight 75.[address] Kurt Lieberman MD Work Phone: [facility] 11-17-2024 12:53-0400 Body height 142.[address] Kurt Lieberman MD Work Phone: [facility] 11-16-2024 10:45-0400 Body weight 76.2 kg Angela High MD Work Phone: [facility] 11-16-2024 10:45-0400 Diastolic blood pressure 73 mm[Hg] Angela High MD Work Phone: [facility] 11-16-2024 10:45-0400 Heart rate 88 /min Angela High MD Work Phone: [facility] 11-16-2024 10:45-0400 Respiratory rate 16 /min Angela High MD Work Phone: [facility] 11-16-2024 10:45-0400 SaO2% (BldA) [Mass fraction] 98 % Angela High MD Work Phone: [facility] 11-16-2024 10:45-0400 Systolic blood pressure 171 mm[Hg] Angela High MD Work Phone: [facility] 10-30-2024 00:19-0400 Body temperature 97 [degF] Dr. Kurt Lieberman MD Work Phone: [facility] 10-30-2024 00:19-0400 Diastolic blood pressure 55 mm[Hg] Dr. Kurt Lieberman MD Work Phone: [facility] 10-30-2024 00:19-0400 Heart rate 101 /min Dr. Kurt Lieberman MD Work Phone: [facility] 10-30-2024 00:19-0400 Respiratory rate 18 /min Dr. Kurt Lieberman MD Work Phone: [facility] 10-30-2024 00:19-0400 SaO2% (BldA) [Mass fraction] 98 % Dr. Kurt Lieberman MD Work Phone: [facility] 10-30-2024 00:19-0400 Systolic blood pressure 203 mm[Hg] Dr. Kurt Lieberman MD Work Phone: [facility] 10-29-2024 23:24-0400 Body height 142.[address] Kurt Lieberman MD Work Phone: [facility] 10-29-2024 23:24-0400 Body mass index (BMI) [Ratio] 38.2 kg/m2 Dr. Kurt Lieberman MD Work Phone: [facility] 10-29-2024 23:24-0400 Body weight 77.[address] Kurt Lieberman MD Work Phone: [facility] 10-24-2024 09:30-0400 Body temperature 97.6 [degF] Dr. Kurt Lieberman MD Work Phone: [facility] 10-24-2024 09:30-0400 Diastolic blood pressure 48 mm[Hg] Dr. Kurt Lieberman MD Work Phone: [facility] 10-24-2024 09:30-0400 Heart rate 84 /min Dr. Kurt Lieberman MD Work Phone: [facility] 10-24-2024 09:30-0400 Respiratory rate 17 /min Dr. Kurt Lieberman MD Work Phone: [facility] 10-24-2024 09:30-0400 SaO2% (BldA) [Mass fraction] 97 % Dr. Kurt Lieberman MD Work Phone: [facility] 10-24-2024 09:30-0400 Systolic blood pressure 168 mm[Hg] Dr. Kurt Lieberman MD Work Phone: [facility] 10-23-2024 10:38-0400 Body height 142.[address] Kurt Lieberman MD Work Phone: [facility] 10-23-2024 10:38-0400 Body weight 76.[address] Kurt Lieberman MD Work Phone: [facility] 10-22-2024 20:11-0400 Body mass index (BMI) [Ratio] 37.8 kg/m2 Dr. Kurt Lieberman MD Work Phone: [facility] 10-22-2024 19:15-0400 Body temperature 96.5 [degF] Dr. Kurt Lieberman MD Work Phone: [facility] 10-22-2024 19:15-0400 Diastolic blood pressure 52 mm[Hg] Dr. Kurt Lieberman MD Work Phone: [facility] 10-22-2024 19:15-0400 Heart rate 80 /min Dr. Kurt Lieberman MD Work Phone: [facility] 10-22-2024 19:15-0400 Respiratory rate 16 /min Dr. Kurt Lieberman MD Work Phone: [facility] 10-22-2024 19:15-0400 SaO2% (BldA) [Mass fraction] 97 % Dr. Kurt Lieberman MD Work Phone: [facility] 10-22-2024 19:15-0400 Systolic blood pressure 153 mm[Hg] Dr. Kurt Lieberman MD Work Phone: [facility] 10-22-2024 17:23-0400 Body mass index (BMI) [Ratio] 38.1 kg/m2 Dr. Kurt Lieberman MD Work Phone: [facility] 10-22-2024 17:23-0400 Body weight 77.[address] Kurt Lieberman MD Work Phone: [facility] 10-22-2024 17:19-0400 Body height 142.[address] Kurt Lieberman MD Work Phone: [facility] 10-22-2024 13:04-0400 Body temperature 97.8 [degF] Dr. Kurt Lieberman MD Work Phone: [facility] 10-22-2024 13:04-0400 Body weight 75.[address] Kurt Lieberman MD Work Phone: [facility] 10-22-2024 13:04-0400 Diastolic blood pressure 64 mm[Hg] Dr. Kurt Lieberman MD Work Phone: [facility] 10-22-2024 13:04-0400 Heart rate 86 /min Dr. Kurt Lieberman MD Work Phone: [facility] 10-22-2024 13:04-0400 Respiratory rate 16 /min Dr. Kurt Lieberman MD Work Phone: [facility] 10-22-2024 13:04-0400 SaO2% (BldA) [Mass fraction] 97 % Dr. Kurt Lieberman MD Work Phone: [facility] 10-22-2024 13:04-0400 Systolic blood pressure 144 mm[Hg] Dr. Kurt Lieberman MD Work Phone: [facility] 10-11-2024 14:32-0400 Body weight 76.39 kg Angela High MD Work Phone: [facility] 10-11-2024 14:32-0400 Diastolic blood pressure 70 mm[Hg] Angela High MD Work Phone: [facility] 10-11-2024 14:32-0400 Heart rate 83 /min Angela High MD Work Phone: [facility] 10-11-2024 14:32-0400 Respiratory rate 16 /min Angela High MD Work Phone: [facility] 10-11-2024 14:32-0400 SaO2% (BldA) [Mass fraction] 98 % Angela High MD Work Phone: [facility] 10-11-2024 14:32-0400 Systolic blood pressure 156 mm[Hg] Angela High MD Work Phone: [facility] 10-06-2024 14:37-0400 Body temperature 97.6 [degF] Dr. Kurt Lieberman MD Work Phone: [facility] 10-06-2024 14:37-0400 Heart rate 57 /min Dr. Kurt Lieberman MD Work Phone: [facility] 10-06-2024 14:37-0400 Respiratory rate 18 /min Dr. Kurt Lieberman MD Work Phone: [facility] 10-06-2024 14:37-0400 SaO2% (BldA) [Mass fraction] 95 % Dr. Kurt Lieberman MD Work Phone: [facility] 10-06-2024 14:00-0400 Diastolic blood pressure 49 mm[Hg] Dr. Kurt Lieberman MD Work Phone: [facility] 10-06-2024 14:00-0400 Systolic blood pressure 142 mm[Hg] Dr. Kurt Lieberman MD Work Phone: [facility] 10-06-2024 04:30-0400 Body mass index (BMI) [Ratio] 149192.8 kg/m2 Dr. Kurt Lieberman MD Work Phone: [facility] 10-06-2024 04:30-0400 Body weight 79.[address] Kurt Lieberman MD Work Phone: [facility] 10-05-2024 12:00-0400 Body height 1.[address] Kurt Lieberman MD Work Phone: [facility] 10-05-2024 12:00-0400 Inhaled oxygen flow rate 2 L/min Dr. Kurt Lieberman MD Work Phone: [facility] 09-17-2024 11:18-0400 Body temperature 97.8 [degF] Dr. Kurt Lieberman MD Work Phone: [facility] 09-17-2024 11:18-0400 Body weight 78.[address] Kurt Lieberman MD Work Phone: [facility] 09-17-2024 11:18-0400 Diastolic blood pressure 70 mm[Hg] Dr. Kurt Lieberman MD Work Phone: [facility] 09-17-2024 11:18-0400 Heart rate 76 /min Dr. Kurt Lieberman MD Work Phone: [facility] 09-17-2024 11:18-0400 Respiratory rate 17 /min Dr. Kurt Lieberman MD Work Phone: [facility] 09-17-2024 11:18-0400 SaO2% (BldA) [Mass fraction] 97 % Dr. Kurt Lieberman MD Work Phone: [facility] 09-17-2024 11:18-0400 Systolic blood pressure 140 mm[Hg] Dr. Kurt Lieberman MD Work Phone: [facility] 09-10-2024 12:25-0400 Diastolic blood pressure 69 mm[Hg] Angela High MD Work Phone: [facility] 09-10-2024 12:25-0400 Heart rate 98 /min Angela High MD Work Phone: [facility] 09-10-2024 12:25-0400 Systolic blood pressure 138 mm[Hg] Angela High MD Work Phone: [facility] 09-10-2024 11:28-0400 Body weight 78.65 kg Angela High MD Work Phone: [facility] 09-10-2024 11:28-0400 Respiratory rate 18 /min Angela High MD Work Phone: [facility] 09-03-2024 14:00-0400 Body temperature 97.6 [degF] Dr. Kurt Lieberman MD Work Phone: [facility] 09-03-2024 14:00-0400 Diastolic blood pressure 72 mm[Hg] Dr. Kurt Lieberman MD Work Phone: [facility] 09-03-2024 14:00-0400 Heart rate 70 /min Dr. Kurt Lieberman MD Work Phone: [facility] 09-03-2024 14:00-0400 Respiratory rate 16 /min Dr. Kurt Lieberman MD Work Phone: [facility] 09-03-2024 14:00-0400 SaO2% (BldA) [Mass fraction] 98 % Dr. Kurt Lieberman MD Work Phone: [facility] 09-03-2024 14:00-0400 Systolic blood pressure 158 mm[Hg] Dr. Kurt Lieberman MD Work Phone: [facility] 09-03-2024 08:44-0400 Body mass index (BMI) [Ratio] 38.9 kg/m2 Dr. Kurt Lieberman MD Work Phone: [facility] 09-03-2024 03:34-0400 Body weight 80.[address] Kurt Lieberman MD Work Phone: [facility] 09-01-2024 14:52-0400 Body height 142.[address] Kurt Lieberman MD Work Phone: [facility] 09-01-2024 01:11-0400 Inhaled oxygen concentration 21 % Dr. Kurt Lieberman MD Work Phone: [facility] 08-31-2024 23:04-0400 Diastolic blood pressure 50 mm[Hg] Dr. Kurt Lieberman MD Work Phone: [facility] 08-31-2024 23:04-0400 Heart rate 79 /min Dr. Kurt Lieberman MD Work Phone: [facility] 08-31-2024 23:04-0400 Respiratory rate 23 /min Dr. Kurt Lieberman MD Work Phone: [facility] 08-31-2024 23:04-0400 Systolic blood pressure 138 mm[Hg] Dr. Kurt Lieberman MD Work Phone: [facility] 08-31-2024 22:50-0400 Body temperature 97.8 [degF] Dr. Kurt Lieberman MD Work Phone: [facility] 08-31-2024 22:50-0400 SaO2% (BldA) [Mass fraction] 97 % Dr. Kurt Lieberman MD Work Phone: [facility] 08-31-2024 19:32-0400 Body mass index (BMI) [Ratio] 39.4 kg/m2 Dr. Kurt Lieberman MD Work Phone: [facility] 08-31-2024 19:32-0400 Body weight 79.[address] Kurt Lieberman MD Work Phone: [facility] 08-31-2024 19:27-0400 Body height 142.[address] Kurt Lieberman MD Work Phone: [facility] 11-14-2023 15:30-0400 Diastolic blood pressure 82 mm[Hg] Chalo Acosta MD Work Phone: [facility] 11-14-2023 15:30-0400 Systolic blood pressure 150 mm[Hg] Chalo Acosta MD Work Phone: [facility] Encounters Encounter Date Encounter Type Care Provider Facility Start: 11-17-2024 Evaluation and management of inpatient Dr. Imelda Marsh MD -Medical Surgical 3 Work Phone: Start: 11-16-2024 End: 11-17-2024 Telephone encounter Angela High MD Work Phone: [facility] [place] Start: 11-16-2024 End: 11-16-2024 Office outpatient visit 25 minutes Angela High MD Work Phone: [facility] [place] Comment on above: Gagging episode (Vivienne barry Dx); Choking, subsequent encounter; Loss of appetite; Weight loss; Hallucinations; Primary hypertension; Muscle weakness (generalized); Hyponatremia; History of common carotid artery stent placement Start: 11-16-2024 End: 11-16-2024 ambulatory ANGELA HIGH Facility:[facility] Start: 11-15-2024 End: 11-15-2024 ambulatory Gianna Alicea RN [employer] Comment on above: Information Start: 11-14-2024 End: 11-15-2024 ambulatory Angela High MD Work Phone: [facility] [place] Comment on above: labs Start: 11-01-2024 Encounter for other preprocedural examination Ugo [place] [facility] Start: 10-29-2024 End: 10-30-2024 Emergency department patient visit Dr. Kurt Lieberman MD Work Phone: -Emergency Department Work Phone: Start: 10-27-2024 ambulatory [facility] Facility:[facility] Start: 10-24-2024 Non-patient / Non-visit Dr. Madison [facility] Work Phone: Start: 10-23-2024 Non-patient / Non-visit Dr. Madison [facility] Work Phone: Start: 10-22-2024 Non-patient / Non-visit Dr. Aurea Lockwood MD -[place] [facility] Work Phone: Start: 10-22-2024 ambulatory Axel Lockwood Fac ility:[facility] Start: 10-22-2024 End: 10-24-2024 Evaluation and management of inpatient Dr. Axel Lockwood MD -Progressive Care Unit Work Phone: Start: 10-22-2024 End: 10-22-[address] Kurt Lieberman MD Work Phone: [facility] Work Phone: Start: 10-22-2024 End: 10-22-2024 Patient encounter procedure Sonali Harobetsy TOMLINSON [facility] Work Phone: Start: 10-22-2024 End: 10-22-2024 Patient encounter procedure Sonali TOMLINSON -[facility] Work Phone: Start: 10-22-2024 End: 10-22-[address] Kurt Lieberman MD Work Phone: [facility] Work Phone: Start: 10-22-2024 End: 10-22-2024 ambulatory Sonali Haro Facility:[facility] Start: 10-20-2024 End: 10-22-2024 ambulatory Angela High MD Work Phone: [facility] [place] Comment on above: Omeprazole Start: 10-11-2024 End: 10-11-2024 Office outpatient visit 25 minutes Angela High MD Work Phone: [facility] [place] Comment on above: Type 2 diabetes rebecca itus without complication, without long- term current use of insulin (HCC); Essential (primary) hypertension; Tremor, unspecified; Difficulty in walking, not elsewhere classified; Screening for depression; Encounter for screening examination for other mental health and behavioral disorders; Cerebral infarction due to unspecified occlusion or stenosis of unspecified cerebral artery (HCC) Start: 10-11-2024 End: 10-11-2024 ambulatory ANGELA HIGH Facility:[facility] Start: 10-06-2024 Non-patient / Non-visit Sonali TOMLINSON -[facility] Start: 10-05-2024 ambulatory Ugo Rogel Facility:[facility] Start: 10-05-2024 End: 10-06-2024 Evaluation and management of inpatient Dr. Ugo Rogel MD -Intensive Care Unit Work Phone: Start: 10-05-2024 Non-patient / Non-visit Dr. Ugo keller MD -[facility] Start: 10-05-2024 ambulatory Ugo Rogel Facility:[facility] Start: 09-30-2024 End: 10-04-2024 ambulatory Angela High MD Work Phone: [facility] [place] Comment on above: medication Start: 09-28-2024 End: 10-01-2024 ambulatory Angela High MD Work Phone: [facility] Start: 09-17-2024 End: 09-17-2024 Patient encounter procedure Sonali Haro [place] -[facility] Work Phone: Start: 09-17-2024 End: 09-17-2024 ambulatory Sonali Haro Facility:[facility] Start: 09-13-2024 End: 09-13-2024 Telephone encounter Angela High MD Work Phone: [facility] [place] Comment on above: Medication Problem Start: 09-10-2024 End: 09-10-2024 Office outpatient new 45 minutes Angela High MD Work Phone: [facility] [place] Comment on above: Hospital discharge f ollow-up (Primary Dx); Hypertension, unspecified type; Type 2 diabetes mellitus without complication, without long-term current use of insulin (HCC); Class 2 severe obesity with serious comorbidity and body mass index (BMI) of 35.0 to 35.9 in adult, unspecified obesity type (HCC) Start: 09-10-2024 End: 09-10-2024 ambulatory ANGELA HIGH Facility:[facility] Start: 09-03-2024 Non-patient / Non-visit [facility] Work Phone: Start: 09-02-2024 Non-patient / Non-visit Dr. [facility] Work Phone: Start: 09-01-2024 End: 09-03-2024 ambulatory Sonali Haro Facility:[facility] Start: 09-01-2024 End: 09-03-2024 Evaluation and management of inpatient Dr. Dariana Wise DO [facility] Work Phone: Start: 09-01-2024 ambulatory Angel Shepard Facility:[facility] Start: 09-01-2024 Non-patient / Non-visit Dr. John [facility] Start: 09-01-2024 ambulatory Ugo Columbia Facility:[facility] Start: 09-01-2024 Non-patient / Non-visit Dr. Ugo keller MD -[facility] Start: 08-31-2024 ambulatory Severiano Ibarra Facili ty:[facility] Start: 08-31-2024 Evaluation and management of inpatient Dr. Severiano Ibarra DO -[facility] Work Phone: Start: 08-31-2024 Non-patient / Non-visit Dr. Mateus Ibarra [facility] Work Phone: Start: 08-31-[address] Ephraim Lieberman MD Work Phone: [facility] Work Phone: Start: 06-01-2024 End: 06-01-2024 Orders Only Fabio TOMLINSON-C Work Phone: Orthopaedics Comment on above: Pain in both knees, unspecified chronicity (Primary Dx) Start: 05-20-2024 End: 05-20-[address] 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 Kurt Lieberman MD Work Phone: Start: 11-17-2024 CT of abdomen and pe lvis without contrast Dr. Kurt iLeberman MD Work Phone: Start: 11-17-2024 Urnls dip stick/tabl et reagent auto microscopy Dr. Kurt Lieberman MD Work Phone: Start: 10-24-[address] Kurt [...] Level iv surg pathol ogy gross&microscopic exam Chalo Acosta MD Work Phone: Plan of Treatment Date Care Activity Detail Author Start: 10-11-2025 Anxiety Screening Anxiety Screening [facility] Start: 10-11-2025 Depression Screening Depression Scre ening [facility] Start: 01-24-2025 Influenza vaccination Influenz a Vaccine (Season Ended) [facility] Start: 12-14-2024 End: 12-14-2024 Patient encounter procedure 12/14/2024 9:20 AM EDT Office Visit [facility] [place] [address] [place] [address] Angela High MD [address] [place] [address] 1 mo follow up [facility] [place] Comment on above: 1 mo follow up Start: 11-22-2024 End: 11-22-2024 Patient encounter procedure 11/22/2024 10:40 AM EDT Office Visit [facility] [place] [address] [place] [address] Angela High MD [address] [place] [address] 6 week f/u [facility] [place] Comment on above: 6 week f/u Start: 11-17-2024 Hospital admission, emergency, from emergency room, medical nature [facility] Start: 11-17-2024 Verification routine [facility] Start: 11-17-2024 Admission procedure [facility] Start: 11-17-2024 [facility] Start: 11-16-2024 End: 11-16-2024 Patient encounter procedure 11/16/2024 10:40 AM EDT Office Visit [facility] [place] [address] [place] [address] Angela High MD [address] [place] [address] swallowing issues, gagging, nausea weakness [facility] [place] Comment on above: swallowing issues, g agging, nausea weakness Start: 11-15-2024 End: 02-14-2025 Basic metabolic 2000 panel - Serum or Plasma BASIC METABOLIC PANEL Lab Routine Hyponatremia Expected: 11/15/2024, Expires: 02/14/2025 [facility] Comment on above: Expected: 11/15/2024 , Expires: 02/14/2025 Start: 11-15-2024 End: 02-14-2025 CBC W Auto Differential panel - Blood COMPLETE BLOOD COUNT AND DIFFERENTIAL Lab Routine Hyponatremia Expected: 11/15/2024, Expires: 02/14/2025 [facility] Work Phone: Comment on above: Expected: 11/15/2024 , Expires: 02/14/2025 Start: 10-30-2024 [facility] Start: 10-24-2024 Patient discharge [facility] Start: 10-24-2024 Removal of urinary catheter [facility] Start: 10-23-2024 [facility] Start: 10-23-2024 Referral to service [facility] Start: 10-22-2024 End: 10-22-2024 [facility] Start: 10-22-2024 Care regimes management [facility] Start: 10-22-2024 Notification of physician [facility] Start: 10-22-2024 Following clinical pathway protocol [facility] Start: 10-22-2024 Ambulation without limitation [facility] Start: 10-22-2024 Assessment of risk o f venous thromboembolism [facility] Start: 10-22-2024 Insertion of cathete r into peripheral vein [facility] Start: 10-22-2024 Measuring intake and output [facility] Start: 10-22-2024 Providing care accor ding to standard [facility] Start: 10-22-2024 Verification routine [facility] Start: 10-22-2024 Admission procedure [facility] Start: 10-22-2024 Hospital admission, emergency, from emergency room, medical nature [facility] Start: 10-22-2024 Patient referral to dietitian [facility] Start: 10-11-2024 End: 10-11-2024 Patient encounter procedure 10/11/2024 2:20 PM EDT Office Visit Internal Medicine [address] [address] Angela High MD [address] [place] [address] 6 week f/u [facility] [place] Comment on above: 6 week f/u Start: 10-06-2024 Patient discharge [facility] Start: 10-06-2024 [facility] Start: 10-06-2024 Inhalation therapy procedure [facility] Start: 10-05-2024 Introduction of urin ayleen catheter [facility] Start: 10-05-2024 Following clinical pathway protocol [facility] Start: 10-05-2024 Ambulation without limitation [facility] Start: 10-05-2024 Assessment of risk o f venous thromboembolism [facility] Start: 10-05-2024 Bedrest [facility] Start: 10-05-2024 Care regimes management [facility] Start: 10-05-2024 Catheterization of vein [facility] Start: 10-05-2024 Continuous pulse oximetry [facility] Start: 10-05-2024 Deep breathing and coughing exercises [facility] Start: 10-05-2024 Incentive spirometry [facility] Start: 10-05-2024 Insertion of cathete r into peripheral vein [facility] Start: 10-05-2024 Measuring intake and output [facility] Start: 10-05-2024 Notification of physician [facility] Start: 10-05-2024 Oxygen therapy [facility] Start: 10-05-2024 Patient referral to dietitian [facility] Start: 10-05-2024 Providing care accor ding to standard [facility] Start: 10-05-2024 Provision of activit y privileges [facility] Start: 10-05-2024 Pulse taking [facility] Start: 10-05-2024 Referral to occupati onal therapist [facility] Start: 10-05-2024 Referral to service [facility] Start: 10-05-2024 Taking patient vital signs [facility] Start: 10-05-2024 Vital signs measurements [facility] Start: 10-05-2024 End: 10-05-2024 [facility] Start: 10-05-2024 End: 10-05-2024 Elevation of head of bed [facility] Start: 10-05-2024 Admission procedure [facility] Start: 10-05-2024 Insertion of carotid artery stent Carotidstent (Right) [facility] Start: 10-05-2024 Patient referral to dietitian [facility] Start: 09-28-2024 End: 12-28-2024 CBC panel - Blood by Automated count COMPLETE BLOOD COUNT Lab Routine Type 2 diabetes mellitus without complication, without long-term current use of insulin (HCC) Expected: 09/28/2024, Expires: 12/28/2024 [facility] Comment on above: Expected: 09/28/2024 , Expires: 12/28/2024 Start: 09-28-2024 End: 12-28-2024 Hemoglobin A1c in Blood HEMOGLOBIN A1C Lab Routine Type 2 diabetes mellitus without complication, without long-term current use of insulin (HCC) Expected: 09/28/2024, Expires: 12/28/2024 [facility] Comment on above: Expected: 09/28/2024 , Expires: 12/28/2024 Start: 09-28-2024 End: 12-28-2024 Lipid 1996 panel - Serum or Plasma LIPID PANEL, FASTING Lab Routine Type 2 diabetes mellitus without complication, without long-term current use of insulin (HCC) Expected: 09/28/2024, Expires: 12/28/2024 [facility] Comment on above: Expected: 09/28/2024 , Expires: 12/28/2024 Start: 09-28-2024 End: 12-28-2024 Microalbumin/Creatinine [Mass Ratio] in Urine ALBUMIN/CREATININE RATIO, URINE Lab Routine Type 2 diabetes mellitus without complication, without long-term current use of insulin (HCC) Expected: 09/28/2024, Expires: 12/28/2024 [facility] Work Phone: Comment on above: Expected: 09/28/2024 , Expires: 12/28/2024 Start: 09-10-2024 End: 12-10-2024 Basic metabolic 2000 panel - Serum or Plasma BASIC METABOLIC PANEL Lab Routine Hypertension, unspecified type Expected: 09/10/2024, Expires: 12/10/2024 [facility] Work Phone: Comment on above: Expected: 09/10/2024 , Expires: 12/10/2024 Start: 09-03-2024 Patient discharge [facility] Start: 09-01-2024 Admission procedure [facility] Start: 09-01-2024 Referral to vascular surgeon [facility] Start: 09-01-2024 Application of intermittent pneumatic compression device [facility] Start: 09-01-2024 Following clinical pathway protocol [facility] Start: 09-01-2024 [facility] Start: 09-01-2024 Aspiration precautions [facility] Start: 09-01-2024 Cardiac monitoring [facility] Start: 09-01-2024 Catheterization of vein [facility] Start: 09-01-2024 Consultation [facility] Start: 09-01-2024 Elevation of head of bed [facility] Start: 09-01-2024 Exercises [facility] Start: 09-01-2024 Notification of physician [facility] Start: 09-01-2024 Oxygen therapy [facility] Start: 09-01-2024 Patient referral to dietitian [facility] Start: 09-01-2024 Referral to occupati onal therapist [facility] Start: 09-01-2024 Referral to service [facility] Start: 09-01-2024 Speech therapy assessment [facility] Start: 09-01-2024 Telemedicine consult ation with patient [facility] Start: 09-01-2024 Tobacco use cessatio n education [facility] Start: 09-01-2024 Vital signs measurements [facility] Start: 08-31-2024 MRI of brain without contrast Brain without Contrast [facility] Start: 08-31-2024 Thyroid stimulating hormone measurement [facility] Start: 08-31-2024 Admission procedure [facility] Start: 08-31-2024 End: 09-01-2024 [facility] Start: 08-31-2024 Hospital admission, emergency, from emergency room, medical nature [facility] Start: 08-31-2024 [facility] Start: 05-26-2024 Advance Directive Discussion Advance Directive Discussion [facility] Start: 05-26-2024 Medicare Advantage A nnual Wellness Visit Medicare Advantage Annual Wellness Visit [facility] Start: 01-25-2024 Covid-19 Vaccine ( season) Covid-19 Vaccine () [facility] Start: 01-25-2024 Influenza vaccination C [facility] Start: 05-26-2023 Advance Directive Discussion Advance Directive Discussion [facility] Start: 05-26-2023 Behavioral Health Screening Behavioral Health Screening [facility] Start: 01-24-2023 Covid-19 Vaccine ( season) Covid-19 Vaccine ( season) [facility] Start: 12-29-2014 RSV Vaccine (1 - 1-d ose 75+ series) RSV Vaccine (1 - 1-dose 75+ series) [facility] Start: 12-29-2004 Pneumococcal Vaccine : 65+ (1 of 1 - PCV) Pneumococcal Vaccine: 65+ (1 of 1 - PCV) [facility] Start: 12-29-2004 Screening for osteoporosis Bone Density Screening [facility] Start: 1999 RSV Vaccine (1 - 1-d ose 60+ series) RSV Vaccine (1 - 1-dose 60+ series) [facility] Start: 12-29-1989 Pneumococcal Vaccine : 50+ (1 of 1 - PCV) Pneumococcal Vaccine: 50+ (1 of 1 - PCV) [facility] Start: 12-29-1989 Shingrix Vaccine (1 of 2) Thorpe grix Vaccine (1 of 2) [facility] Start: 12-29-1984 Diabetes Screening Diabetes Screenin g [facility] Start: 12-29-1958 Pneumococcal Vaccine : 50+ (1 of 2 - PCV) Pneumococcal Vaccine: 50+ (1 of 2 - PCV) [facility] Start: 12-29-1958 Urine microalbumin profile DTaP,Tdap,Td Vaccine (1 - Tdap) [facility] Start: 12-29-1957 Anxiety Screening Anxiety Screening [facility] Start: 12-29-1957 Depression Screening Depression Scre ening [facility] Start: 12-29-1957 Hepatitis B surface antibody level LDL Cholesterol [facility] Start: 12-29-1949 Diabetic foot examination Diabetic F oot Exam [facility] Start: 12-29-1949 Glaucoma screening Dilated Retinal E xam [facility] Start: 12-29-1949 Hepatitis B screening Urine Albumin:Creatinine Ratio [facility] Start: 12-29-1944 Hemoglobin A1c measurement HbA1C [facility] Amphetamines [Presen ce] in Urine by Screen method >1000 ng/mL [facility] Basic metabolic 2008 panel with ionized calcium - Serum or Plasma [facility] Benzodiazepine measurement, urine [facility] CBC W Auto Different ial panel - Blood [facility] Cocaine measurement, urine [facility] CTA Head vessels and Neck vessels W contrast IV [facility] Ethanol [Mass/volume ] in Serum or Plasma [facility] fentaNYL [Presence] in Urine by Screen method [facility] Folate [Moles/volume ] in Serum or Plasma [facility] Hemoglobin A1c/Hemoglobin.total in Blood [facility] Lactic acid measurement [facility] Methadone measuremen t, urine [facility] Microscopic urinalysis [facility] Organism count, microscopic method [facility] Patient Education ED Hematoma ED Skin Tear (Skin Avulsion) [facility] Work Phone: Patient referral [facility] Work Phone: Phencyclidine [Prese nce] in Urine [facility] End: 12-16-2025 RF videography Hypopharynx and Esophagus Views W liquid and paste contrast PO during swallowing XR MODIFIED BARIUM SWALLOW W SPEECH THERAPY Radiology Routine Gagging episode Choking, subsequent encounter 1 Occurrences starting 11/16/2024 until 12/16/2025 [facility] Work Phone: Comment on above: 1 Occurrences starti ng 11/16/2024 until 12/16/2025 Troponin T.cardiac [Mass/volume] in Serum or Plasma by High sensitivity method [facility] Urine cannabinoid measurement [facility] Urine culture [facility] Urine microscopy: epithelial cells [facility] Urine microscopy: re d cells [facility] Urine opiate measurement [facility] [employer]allow [facility] White blood cell count [facility] End: 07-01-2025 XR Knee - bilateral 4 Views XR KNEE GENERAL 4V AP BOTH/PA BOTH/LAT/MERC BILATERAL Radiology Routine Pain in both knees, unspecified chronicity 1 Occurrences starting 06/01/2024 until 07/01/2025 [facility] Work Phone: Comment on above: 1 Occurrences starti ng 06/01/2024 until 07/01/2025 End: 07-01-2025 XR Lower extremity - bilateral AP W standing XR LEG FRONTAL HIP TO ANKLE MECHANICAL AXIS Radiology Routine Pain in both knees, unspecified chronicity 1 Occurrences starting 06/01/2024 until 07/01/2025 [facility] Comment on above: 1 Occurrences starti ng 06/01/2024 until 07/01/2025 Immunizations Immunization Date Immunization Notes Care Provider [facility] 03-08-2016 influenza, injectabl e, quadrivalent, preservative free Dr. Kurt Lieberman MD Work Phone: [facility] 03-08-2016 influenza virus vaccine, unspecified formulation Gianna Alicea RN [facility] Payers Date Payer Category Payer Self-pay 2023 Medicare MMO MEDICARE MMO MEDADVANTAGE O [id number] 2023-Present [phone] [address] [place] [address] [facility] [id number] 2023 Medicare (Managed Care) MMO SHILPI DVANTAGE HMO [id number] 2023 Medicare [id number] 2004 Medicare MEDICARE PART A B [id number] Unknown COMMERCIAL OTHER [id number] Unknown [id number] 2.16.840.1.399763.3.579 .2.462 Unknown [id number] 2.16.840.1.390003.3.579 .2.462 Unknown [id number] 2.16.840.1.355815.3.579 .2.462 Unknown [id number] 2.16.840.1.586514.3.579 .2.462 Unknown [id number] 2.16.840.1.735809.3.579 .2.462 Unknown [id number] 2.16.840.1.686461.3.579 .2.462 Unknown [id number] 2.16.840.1.395033.3.579 .2.462 Unknown [id number] 2..840.1.373826.3.579 .2.462 Unknown [id number] 2.16.840.1.896098.3.579 .2.462 Unknown [id number] 2.16.840.1.227529.3.579 .2.462 Unknown [id number] 2.16.840.1.997980.3.579 .2.462 Unknown [id number] 2.16.840.1.186048.3.579 .2.462 Unknown [id number] 2.16.840.1.880912.3.579 .2.462 Unknown [id number] 2.16.840.1.866549.3.579 .2.462 Unknown [id number] 2.16.840.1.208412.3.579 .2.462 Unknown [id number] 2.16.840.1.146195.3.579 .2.462 Unknown [id number] 2.16.840.1.507236.3.579 .2.462 Unknown [id number] 2.16.840.1.742543.3.579 .2.462 Unknown [id number] 2.16.840.1.942969.3.579 .2.462 Unknown [id number] 2.16.840.1.387095.3.579 .2.462 Unknown [id number] 2.16.840.1.194965.3.579 .2.462 Social History Date Type Detail Facility Start: 11-14-2023 End: 11-17-2024 Tobacco smoking status NHIS Never smoked tobacco [facility] Start: 11-14-2023 Tobacco use and exposure Smokeless tobacco non-user [facility] Start: 11-14-2023 End: 11-16-2024 Alcohol intake Current drinker of alcohol (finding) [facility] Start: 11-14-2023 End: 11-21-2023 History of Social function [facility] Start: 11-14-2023 End: 11-21-2023 Tobacco use panel [facility] National Score (1-100), lower number is lower risk 64 [facility] Start: 1940 Sex Assigned At Not on file [facility] Start: 08-31-2024 End: 09-03-2024 Sex Female (finding) [facility] Start: 1940 Sex Assigned At Female [facility] NEGATED: Highlighted row Not [facility] Medical Equipment Procedure Code Equipment Code Equipment Origin al Text Equipment Identifier Dates two times a day. TEST BLOOD SUGAR [id number] Start: 10-27-2023 Bare-metal carot id artery stent ()[id number] FDA Start: 10-05-2024 Goals Date Patient Goal Desired Activity /State Functional Status Date Assessment Result Facility 10-24-2024 Functional status Ambulates [facility] Work Phone: 10-06-2024 Functional status Bedside Commode [facility] Work Phone: 09-03-2024 Functional status Ambulates;Bathroom Priv ilege [facility] Work Phone: Mental Status Date Assessment Result Facility 10-24-2024 Cognitive function Voice/Name [facility] Work Phone: 10-22-2024 Cognitive function Level Of Cons ciousness Awake;Alert;Appropriate;Follow s Commands [facility] Work Phone: 10-06-2024 Cognitive function Voice/Name [facility] Work Phone: 09-03-2024 Cognitive function Voice/Name [facility] Work Phone: 08-31-2024 Cognitive function Awake;Alert;A ppropriate;Follow s Commands [facility] Work Phone: Clinical Notes 11-14-2023 to 11-17-2024 Note Date & Type Note Facility 11-17-2024 History and physi bryn note [facility] 11-17-2024 Discharge summary [facility] 11-17-2024 Radiology Diagnostic study note [facility] Imaging Services [address] [place], [place] [address] Abdomen/Pelvis without Cont MR#: [id number] Acct: [id number] Name: CHELSEA MOODY Rep #: [id number] : 1940 F 83 From: Kerri Dey MD PCP: Dr. Angela High MD Status: REG E R Study:Abdomen/Pelvis without Cont Date of Exa m: 11/17/24 Exam# [id number] Ordering Dr: Jany Toussaint DO PROCEDURE: ABDOMEN/PELVIS WITHOUT CONT 11/17/2024 REASON FOR EXAM: VOMITING, CONSTIPATION, JUJU TECHNIQUE: ABDOMEN/PELVIS WITHOUT CONT Noncontrast technique limits evaluation of the abdominal and pelvic viscera. Coronal and Sagittal reconstruction series were provided. One or more dose reduction techniques were used (e.g., Automated exposure control, adjustment of the mA and/or kV according to patient size, use of iterative reconstruction technique). RADIATION DOSE SUMMARY: DLP: 800 mGycm COMPARISON: Liver ultrasound 05/09/2020. FINDINGS: Lung bases: Mild dependent atelectasis. Liver: The unopacified liver is normal in size. No biliary ductal dilation. Gallbladder: Prior cholecystectomy. Spleen: Normal in size. Pancreas: The unopacified pancreas is mildly atrophic. Adrenals: No adrenal mass. Kidneys: Mild symmetric renal cortical scarring. Right parapelvic cyst. No hydronephrosis or nephrolithiasis. Bladder: The urinary bladder is moderately distended and unremarkable. Reproductive Organs: Prior hysterectomy. Bowel: The bowel loops are nondilated. No ascites or pneumoperitoneum. No inflammatory mass in the expected region of the appendix. Lymph nodes: Visualization is limited without the use of IV contrast. No suspicious lymphadenopathy. Vasculature: Severe calcified plaque of the aortoiliac vessels. Bones/soft tissues: Small fat containing umbilical hernia. Thoracolumbar spondylosis. CT/Abdomen/Pelvis without Cont IMPRESSION: No acute abdominopelvic finding on noncontrast CT. Reading Location: [facility] CC: Dr. Angela High MD; Dr. Sherron Toussaint DO ~ Tumbler Drier Operator: Signed [facility] 11-17-2024 Discharge summary Note Date/Time November 17, 2024 6:52pm [facility] Medical Records Department [address] [place] [id number] Emergency Department Summary 11/17/24 MR#: [id number] Acct: [id number] Name: CHELSEA MOODY Rep #:[id number] : 1940 83 From: Sherron Bobo PCP: Dr. Angela High MD Status:REG E R Location: ED HPI History of Present Illness Chief Complaint: Nausea/Vomiting Informant: patient Narrative Narrative: Patient is 83-year-old female with history of carotid artery disease who underwent stenting by Dr. Rogel in September of this year, recent admission for hyponatremia about a month ago (that time sodium was 119), hypertension (reducing the lisinopril which is likely the cause of the hyponatremia), diabetes mellitus and hyperlipidemia presenting with worsening generalized weakness and JUJU. Patient has been having a lot of gagging which then causes her tovomits and dry heaves. She has associated dry mouth. This been going on prickly bad for the last 3 to 4 days. She had outpatient labs with her PCP 2 days ago and at that time her creatinine was 2.82 which is significantly worse than her baseline. Her daughter brought her in. He also notes that over the past few weeks she has been having worsening generalized weakness is having to rely heavily on a walker. Patient states that she does not know when her last bowel movement was but her bowel moods have been more mucus-like since her surgery in September. She has been passing a small amount of gas. Does have a history of prior cholecystectomy. Denies abdominal pain, fever, chills, shortness of breath or chest pain. States she continues to have very clear urine output and denies any decrease in her urine output. Came in for further evaluation. [facility] Medical History Wears glasses Wears dentures Bruising Insulin dependent diabetes mellitus High cholesterol Stroke/cerebrovascular accident History of echocardiogram History of edema CVA (cerebral vascular accident) Diabetes mellitus, type 2 Obesity (BMI 30-39.9) GERD (gastroesophageal reflux disease) Hypertension Diabetes Home Medications ?Medication ?Instructions ?Recorded ?Last Taken ?Type aspirin 81 mg chewable tablet 81 mg PO BREAKFAST SUPPL EMENT #0 09/03/24 11/17/24 Rx tabs atorvastatin 40 mg tablet 40 mg PO QHS CHOLESTEROL #30 tabs 09/03/24 10/21/24 Rx clopidogrel 75 mg tablet 75 mg PO DAILY BLOOD THINNER #30 09/03/24 11/17/24 Rx tabs insulin glargine 100 unit/mL (3 10 unit (0.1 mL) subcu t QHS 09/03/24 10/21/24 Rx mL) subcutaneous pen (Lantus DIABETES #15 mL Solostar U-100 Insulin) metformin 500 mg tablet 500 mg PO BID DIABETES #60 t abs 09/03/24 11/17/24 Rx amlodipine 5 mg tablet 5 mg PO BID 10/22/24 5 History omeprazole 40 mg capsule,delayed 40 mg PO DAILY 11/17/24 History release losartan 50 mg tablet 50 mg PO DAILY 30 days #30 t abs 10/24/24 11/17/24 Rx Allergy/AdvReac Type Severity Reaction Status Date / Time hydrochlorothiazide AdvReac Severe hyponatremi Verified 11/17/24 12:53 a Family History Other Diabetes Surgical History History of cholecystectomy Social History Smoking Status: Never smoker ROS ROS ED Constitutional Constitutional ED: Denies chills or fever(s) ENT ENT ED: Reports other Details: Dry mouth, easy gagging Cardiovascular Cardiovascular: Denies chest pain Respiratory/Chest Respiratory/Chest: Denies cough or dyspnea Gastrointestinal Gastrointestinal: Reports constipation and vomiting; Denies abdominal pain, diarrhea, melena or nausea Genitourinary Genitourinary ED: Denies dysuria, hematuria or urinary frequency Musculoskeletal Musculoskeletal: Reports other Details: Reports chronic knee pain ; Denies arthralgias or myalgias Integumentary Denies rash Neurologic Neurologic: Reports weakness; Denies paresthesias Hematologic/Lymphatic Hematologic/Lymphatic: Denies easy bleeding or easy bruising EXAM Physical Exam Const Vital Signs: 11/17/24 12:53 11/17/24 14:53 11/17/24 15:36 Temperature 97.8 F Temperature Source Oral Pulse Rate 86 82 85 Respiratory Rate 16 18 22 H Blood Pressure 156/55 H 154/59 H Blood Pressure Mean 88 90 Pulse Ox 99 100 100 Oxygen Delivery Method Room Air Room Air 11/17/24 15:40 11/17/24 15:45 11/17/24 16:00 Temperature Temperature Source Pulse Rate 86 85 83 Respiratory Rate 17 22 H 18 Blood Pressure 154/59 H Blood Pressure Mean 82 Pulse Ox 100 100 100 Oxygen Delivery Method Room Air Room Air 11/17/24 16:15 11/17/24 18:00 Temperature Temperature Source Pulse Rate 87 85 Respiratory Rate 17 14 Blood Pressure 160/55 H Blood Pressure Mean 90 Pulse Ox 96 97 Oxygen Delivery Method Room Air Positive well nourished and well developed General Appearance ED: well developed and NAD HEENT Reports dry mucous membranes HEENT Narrative: Normal oropharynx Mouth ED: Yes dry mucous membranes Mouth: dry mucous membranes Eyes PERRL Neck supple and no JVD Chest Wall inspection of chest normal Resp normal respiratory effort and clear to auscultation bilaterally Cardio regular rate, regular rhythm and no murmurs GI non-tender GI Narrative: Ended abdomen. Normal bowel sounds. No tenderness. No fluid wave appreciated. Palpation: soft; Negative for tender or guarding Extremity normal to inspection General Extremety ED: Negative for edema General Extremity: Negative for edema Neuro Neuro Narrative: No focal deficits appreciated Sensorium / Orientation: alert Motor Exam: general weakness Psych mental status grossly normal Skin no rashes or lesions noted and no wounds MDM MDM MDM Narrative Medical decision making narrative: Patient hide of generalized weakness, gagging/vomiting with decreased oral intake and outpatient elevation of her creatinine. Protocol labs obtained including CBC, CMP, urinalysis and CMP. Will also add onCT abdomen pelvis without contrast and give IV fluids for presumed JUJU. Differential includes decreased oral intake, small bowel obstruction, colitis, pancreatitis, renal colic, urinary tract infection, medication side effect, decreased oral intake, dehydration. Patient started on IV fluids at 150 an hour. CBC is unremarkable. He has a mild mean with a hemoglobin 10.6 but this is at her baseline with no acute change. CMP shows significant JUJU with a creatinine of 2.78 (patient's creatinine was 0.9 a month ago). Bicarb is low at 14.7. HerBUN is normal. I suspect this is more associated with dehydration and poor oralintake. Urinalysis does show contamination with 2+ bacteria. Will send culturebut hold off on treating for UTI at this time as I suspect it is contaminant. CT the abdomen pelvis does not show any acute process. Case discussed with hospitalist, Dr. Marsh for admission. Patient hemodynamically stable in emergency room and in agreement with this plan. Lab Data Labs: Laboratory Results - last 24 hr 11/17/24 11/17/24 11/17/24 14:20 16:45 17:37 WBC 10.9 RBC 3.54 L Hgb 10.6 L Hct 32.9 L MCV 92.9 MCH 29.9 MCHC 32.2 RDW Std Deviation 50.4 H RDW Coeff of Óscar 14.8 H Plt Count 357 MPV 11.0 Immature Gran % (Auto) 0.600 Neut % (Auto) 66.1 Lymph % (Auto) 20.9 Rawlins % (Auto) 11.4 H Eos % (Auto) 0.4 Baso % (Auto) 0.6 Absolute Neuts (auto) 7.2 Absolute Lymphs (auto) 2.28 Nucleated RBC % 0 Sodium Cancelled 133 Potassium Cancelled 3.6 Chloride Cancelled 99 Carbon Dioxide Cancelled 14.7 L Anion Gap Cancelled 19 H BUN Cancelled 19 Creatinine Cancelled 2.78 H Estim Creat Clear Calc Cancelled 13.66 L Est GFR (MDRD) Non-Af Cancelled 16 L BUN/Creatinine Ratio Cancelled 6.9 L Glucose Cancelled 120 H Calcium Cancelled 7.8 Total Bilirubin Cancelled 0.35 AST Cancelled 21 ALT Cancelled 23 Alkaline Phosphatase Cancelled 107 H Total Protein Cancelled 6.4 Albumin Cancelled 3.5 Globulin Cancelled 2.9 Albumin/Globulin Ratio Cancelled 1.2 Lipase Cancelled 57 Urine Color Straw Urine Clarity Sl. Cloudy Urine pH 6.0 Ur Specific [place]itas 1.010 Urine Protein 30 H Urine Glucose (UA) Normal Urine Ketones Negative Urine Occult Blood Negative Urine Nitrite Negative Urine Bilirubin Negative Urine Urobilinogen Normal Ur Leukocyte Esterase 25 H Urine RBC 0-5 SEEN Urine WBC 5-10 SEEN Ur Squamous Epith Cells 5-10 SEEN Urine Bacteria 2+ Urine Mucus 0 SEEN Radiography Diagnostic Testing: Clinical Impression(s) from Imaging Studies Abdomen/Pelvis CT 11/17/24 16:55 IMPRESSION: No acute abdominopelvic finding on noncontrast CT. Reading Location: [facility] Discharge Plan Triage Chief Complaint: Nausea/Vomiting ED Provider: Sherron Toussaint Dx/Rx/DC Orders Clinical Impression: JUJU (acute kidney injury), Difficulty swallowing, Hyperactive gag reflex, Weakness Prescriptions: No Action amlodipine 5 mg tablet 5 mg PO BID omeprazole 40 mg capsule,delayed release(DR/EC) 40 mg PO DAILY atorvastatin 40 mg Tablet 40 mg PO QHS Qty: 30 1RF aspirin 81 mg Tablet,Chewable 81 mg PO BREAKFAST Qty: 0 0RF clopidogrel 75 mg Tablet 75 mg PO DAILY Qty: 30 1RF metformin 500 mg tablet 500 mg PO BID Qty: 60 1RF insulin glargine [Lantus Solostar U-100 Insulin] 100 unit/mL (3 mL) insulin pen 10 unit subcut QHS Qty: 15 0RF losartan 50 mg Tablet 50 mg PO DAILY 30 Days Qty: 30 2RF Primary Care Provider: Angela High Referrals: Angela High MD [Primary Care Provider] - Print Language: Ghanaian Disposition Disposition: Acute Care Hospital [facility] What to do if you have Problems For any increased pain, shortness of breath, bleeding, nausea or vomiting, chestpain, or any unexpected problems, contact your Primary Care Provider. Call [facility] ([phone]) or report to the closest Emergency Room. Call 911 if necessary. 11/17/241851 <Electronically signed by Sherron Toussaint DO> Cosigner Signature (if applicable): CC: Dr. Angela High MD ~ Signed [facility] Work Phone: [phone] Telephone encounter Note* Telephone Encounter - Marysol Christian RN - 11/17/2024 8:10 AM EDT Orders faxed to providers as requested by patient. Marysol Christian RN [facility]06-25-2025 Miscellaneous Notes* Telephone Encounter - Marysol Christian RN - 11/17/2024 8:10 AM EDT Orders faxed to providers as requested by patient. Marysol Christian RN * Telephone Encounter - Angela High MD - 11/16/2024 5:13 PM EDT Please do the needful as requested by patient Kushal, Angela High MD * Telephone Encounter - Marysol Christian RN - 11/16/2024 12:21 PM EDT Patient's daughter calls and is requesting Gastroenterology referral to be faxed to Dr. Suleman de anda and for Barium swallow testing to be faxed to [facility]. Marysol Christian RN [facility] Telephone encounter Note * Telephone Encounter - Angela High MD - 11/16/2024 5:13 PM EDT Please do the needful as requested by patient Regards, Angela High MD [facility]06-24-2025 NoteHNO ID: [id number] Author: ANGELA HIGH MD Service: ? Author Type: Physician Type: Progress Notes Filed: 11/16/2024 13:04 Note Text: Reason for Visit Follow up HPI Chelsea Moody is a 83-year-old female, with a history of a recent stroke and carotid artery stenting, presenting with post-surgical dysphagia, weight loss, and visual hallucinations. She is accompanied by her daughter, who is providing additional history. Chelsea reports frequent gagging and occasional choking since undergoing carotid artery stenting on 10/05. She describes a sensation of her throat closing up and initiating dry heaving when exposed to unpleasant stimuli, such as certain smells or sights. She also experiences gagging when attempting to take oral medications or eat solid foods, leading to a diet limited to pudding and broth. She denies coughing but notes a significant decrease in appetite and weight loss, with her daughter estimating a current weight of less than 168 lbs, down from 173 lbs. She also reports visual hallucinations, including seeing bugs and colorful patterns that are not present. Chelsea also reports significant fatigue and weakness, stating she is barely walking and has not felt like herself since the surgery. She denies participating in physical therapy. She also reports tremors, which she describes as shaking like a leaf, and her daughter notes concerns about possible hyponatremia, as Chelsea had similar symptosm when her sodium levels are low. in the past she was advised to drink Gatorade instead of water to maintain sodium levels. She also reports decreased urine output, with an inability to provide a urine sample yesterday. Chelsea expresses a desire to feel as she did before her stroke and is hesitant about undergoing further medical evaluations or treatments. Her daughter notes that she is trying to respect her mother's autonomy and decisions regarding her care. Social History Tobacco Use Smoking status: Never Smokeless tobacco: Never Vaping Use Vaping status: Never Used Substance Use Topics Alcohol use: Yes Drug use: Never Past medical history, appointments, medications, allergies reviewed. Pertinent Lab/Diagnostic Studies are reviewed and discussed today Current Outpatient Medications: omeprazole (PRILOSEC) 40 mg capsule docosahexaenoic acid/epa (FISH OIL ORAL) amLODIPine (NORVASC) 5 mg tablet atorvastatin (LIPITOR) 40 mg tablet clopidogrel (PLAVIX) 75 mg tablet metFORMIN (GLUCOPHAGE) 500 mg tablet aspirin 81 mg chewable tablet LANTUS SOLOSTAR U-100 INSULIN 100 unit/mL (3 mL) ONETOUCH DELICA PLUS LANCET 30 gauge losartan-hydroCHLOROthiazide (HYZAAR) 50-12.5 mg per tablet ONETOUCH VERIO TEST STRIPS test strip Health Maintenance HbA1C Urine Albumin:Creatinine Ratio Dilated Retinal Exam Diabetic Foot Exam LDL Cholesterol DTaP,Tdap,Td Vaccine(1 - Tdap) Pneumococcal Vaccine: 50+(1 of 2 - PCV) Shingrix Vaccine(1 of 2) Bone Density Screening RSV Vaccine(1 - 1-dose 75+ series) Covid-19 Vaccine( season) Advance Directive Discussion Medicare Advantage Annual Wellness Visit@ Review Of Systems Constitutional: (+) loss of appetite, (+) weight loss, (+) fatigue, (+) weakness, (+) insomnia Head: (+) hearing loss Ears/Nose/Mouth/Throat: (+) gagging, (+) choking, (+) dysphagia, (-) nausea Respiratory: (-) cough Genitourinary: (+) decreased urination Musculoskeletal: (+) knee pain, (+) difficulty walking Neurological: (+) tremor Psychiatric: (+) visual hallucinations Physical Exam BP 171/73 Pulse 88 Resp 16 Wt 76.2 kg (168 lb) SpO2 98% GENERAL: NAD, alert and oriented SKIN: Unremarkable, no rash or skin lesions. HEAD: Normocephalic EYES: PERRLA, EOMI, conjunctiva clear EARS: External ears normal, canals clear, TM's [...] II-XII grossly intact, normal gait, no involuntary motions Labs: - Serum sodium: 119-120 mmol/L (hyponatremia) Assessment and Plan 1. Gagging episode (R19.8) Choking, subsequent encounter (T17.308D) Frequent gagging and occasional choking episodes since carotid artery stenting 5 weeks ago. Triggered by certain smells, sights, and physical exertion. No coughing reported. - Ordered barium swallow study to evaluate swallowing mechanism. - Referred to Dr. Shell, contracts paralegal, for further evaluation. 2. Loss of appetite (R63.0) Weight loss (R63.4) Significant decrease in appetite and weight loss noted. Difficulty eating solid sandeep (more content not included)...[facility]06-24-2025 History of Present illness Narrative* Angela High MD - 11/16/2024 1:01 PM EDT Reason for Visit Follow up HPI Chelsea Moody is a 83-year-old female, with a history of a recent stroke and carotid artery stenting, presenting with post-surgical dysphagia, weight loss, and visual hallucinations. She is accompanied by her daughter, who is providing additional history. Chelsea reports frequent gagging and occasional choking since undergoing carotid artery stenting on 10/05. She describes a sensation of her throat closing up and initiating dry heaving when exposed to unpleasant stimuli, such as certain smells or sights. She also experiences gagging when attemptingto take oral medications or eat solid foods, leading to a diet limited to pudding and broth. She denies coughing but notes a significant decrease in appetite and weight loss, with her daughter estimating a current weight of less than 168 lbs, down from 173 lbs. She also reports visual hallucinations, including seeing bugs and colorful patterns that are not present. Chelsea also reports significant fatigue and weakness, stating she is barely walking and has not felt like herself since the surgery. She denies participating in physical therapy. She also reports tremors, which she describes as shaking like a leaf, and her daughter notes concerns about possible hyponatremia, as Chelsea had similar symptosm when her sodium levels are low. in the past she was advised to drink Gatorade instead of water to maintain sodium levels. She also reports decreased urineoutput, with an inability to provide a urine sample yesterday. Chelsea expresses a desire to feel as she did before her stroke and is hesitant about undergoing further medical evaluations or treatments. Her daughter notes that she is trying to respect her mother's autonomy and decisions regarding her care. Social History Tobacco Use Smoking status: Never Smokeless tobacco: Never Vaping Use Vaping status: Never Used Substance Use Topics Alcohol use: Yes Drug use: Never Past medical history, appointments, medications, allergies reviewed. Pertinent Lab/Diagnostic Studies are reviewed and discussed today Current Outpatient Medications: omeprazole (PRILOSEC) 40 mg capsule docosahexaenoic acid/epa (FISH OIL ORAL) amLODIPine (NORVASC) 5 mg tablet atorvastatin (LIPITOR) 40 mg tablet clopidogrel (PLAVIX) 75 mg tablet metFORMIN (GLUCOPHAGE) 500 mg tablet aspirin 81 mg chewable tablet LANTUS SOLOSTAR U-100 INSULIN 100 unit/mL (3 mL) ONETOUCH DELICA PLUS LANCET 30 gauge losartan-hydroCHLOROthiazide (HYZAAR) 50-12.5 mg per tablet ONETOUCH VERIO TEST STRIPS test strip Health Maintenance HbA1C Urine Albumin:Creatinine Ratio Dilated Retinal Exam Diabetic Foot Exam LDL Cholesterol DTaP,Tdap,Td Vaccine(1 - Tdap) Pneumococcal Vaccine: 50+(1 of 2 - PCV) Shingrix Vaccine(1 of 2) Bone Density Screening RSV Vaccine(1 - 1-dose 75+ series) Covid-19 Vaccine(2023- season) Advance Directive Discussion Medicare Advantage Annual Wellness Visit@ Review Of Systems Constitutional: (+) loss of appetite, (+) weight loss, (+) fatigue, (+) weakness, (+) insomnia Head: (+) hearing loss Ears/Nose/Mouth/Throat: (+) gagging, (+) choking, (+) dysphagia, (-) nausea Respiratory: (-) cough Genitourinary: (+) decreased urination Musculoskeletal: (+) knee pain, (+) difficulty walking Neurological: (+) tremor Psychiatric: (+) visual hallucinations Physical Exam BP 171/73 Pulse 88 Resp 16 Wt 76.2 kg (168 lb) SpO2 98% GENERAL: NAD, alert and oriented SKIN: Unremarkable, no rash or skin lesions. HEAD: Normocephalic EYES: PERRLA, EOMI, conjunctiva clear EARS: External ears normal, canals clear, TM's [...] II-XII grossly intact, normal gait, no involuntary motions Labs: - Serum sodium: 119-120 mmol/L (hyponatremia) Assessment and Plan 1. Gagging episode (R19.8) Choking, subsequent encounter (T17.308D) Frequent gagging and occasional choking episodes since carotid artery stenting 5 weeks ago. Triggered by certain smells, sights, and physical exertion. No coughing reported. - Ordered barium swallow study to evaluate swallowing mechanism. - Referred to Dr. Shell, contracts paralegal, for further evaluation. 2. Loss of appetite (R63.0) Weight loss (R63.4) Significant decrease in appetite and weight loss noted. Difficulty eating solid foods due to gagging episodes. - Referred to Dr. Shell for comprehensive GI evaluation. 3. Hallucinations (R44.3) Visual hallucinations reported, including seeing bugs and colors that are not present. 4. Primary hypertension (I10) Blood pressure remains elevated. Currently on Norvasc. - Continue Norvasc. - Monitor blood pressure closely. 5. Muscle weakness (generalized) (M62.81) Generalized weakness and fatigue reported. No physical therapy currently being undertaken. - Recommended initiation of physical therapy to improve strength and stability. 6. Hyponatremia (E87.1) History of low sodium levels, previously recorded at 119-120 mEq/L. Symptoms suggestive of hyponatremia recurrence. - Ordered BMP to assess current sodium levels. - Encourage intake of electrolyte-rich fluids like Gatorade. 7. History of common carotid artery stent placement (Z98.890) Carotid artery stenting performed 5 weeks ago. Onset of gagging and choking episodes post-procedure. Voice recognition software was used to compose this office note. Please excuse any unintended typographical errors. Recording using ambient [employer] software for draft documentation of the visit was discussed with the patient/authorized appeals representative; all questions welcomed and answered. Patient/authorized appeals representative agreed to proceed Angela High MD documented in this encounterThe [facility]06-[facility] Telephone encounter Note * Telephone Encounter - Marysol Christian RN - 11/16/2024 12:21 PM EDT Patient's daughter calls and is requesting Gastroenterology referral to be faxed to Dr. Shell office and for Barium swallow testing to be faxed to [facility]. Marysol Christian RN [facility]06-24-2025 Instructions* Patient Instructions* Angela High MD - 11/16/2024 11:28 AM EDT We discussed your recent health concerns and created a plan to address them: 1. Gagging, Difficulty Swallowing, and Loss of Appetite: - You have been experiencing frequent gagging, difficulty swallowing, and a reduced appetite since your carotid artery stenting 5 weeks ago. - I will order a barium swallow test to evaluate your swallowing mechanism and check for any issuesthat may be contributing to your symptoms. - I will also refer you to Dr. Shell, a contracts paralegal, for further evaluation of your gagging, loss of appetite, and weight loss. Their office will contact you to schedule an appointment. 2. Weight Loss: - You have lost weight recently, which may be related to your reduced appetite and difficulty eating. Please continue to eat soft foods like pudding or broth for now, and avoid foods that trigger gagging. - If you are unable to maintain your weight or symptoms worsen, please let me know. 3. Weakness and Fatigue: - You reported feeling very weak and fatigued, which may be related to your recent stroke and overall health. - I strongly recommend starting physical therapy to help improve your strength, balance, and mobility. Physical therapy will involve gentle exercises tailored to your needs and can help you regain some independence. 4. Blood Pressure and Sodium Levels: - Your blood pressure remains high, and your sodium levels may be contributing to your symptoms. I will order a basic metabolic panel (BMP) to check your sodium and other electrolytes. - Please continue to drink Gatorade or similar electrolyte-containing fluids as recommended, and avoid plain water unless otherwise instructed. 5. Hallucinations: - You mentioned seeing colorful images, bugs, and other visual disturbances. These may be related to your recent stroke or other factors. We will monitor this closely and address it further if it persists or worsens. 6. Medications: - You are currently not taking your medications due to difficulty swallowing pills. If you are opento it, we can explore alternative forms of your medications, such as crushing pills into flavored applesauce or switching to liquid formulations. Please let me know if you would like to try this. 7. Next Steps: - Complete the barium swallow test as scheduled. - Attend your appointment with Dr. Shell for a gastrointestinal evaluation. - Begin physical therapy to improve your strength and balance. - Follow up with me after your tests and specialist visit to review results and adjust your care plan as needed. Please take time to consider what aspects of your health and quality of life are most important to you. Your family and I are here to support you in making decisions that align with your goals and preferences. Let us know how we can help. documented in this encounterThe [facility]06-23-2025 Telephone encounter Note * Telephone Encounter - Gianna Alicea RN - 11/15/2024 8:02 AM EDT Daughter calling with request for lab orders. Daughter denies any new or worsening symptoms of which a provider is not aware: No. Daughter is not with mother. Unable to conference her in on the call.Informed there are blood orders on the chart. Advised that if she is having symptoms she needs to be conferenced in or call NOC back. Daughter states understanding. GO TO THE EMERGENCY ROOM OR CALL 911 IF: * You develop any new symptoms * Your condition worsens * You are concerned or anxious about your condition for any other reason. If you have any questions, you can call Nurse software solutions architect back. [facility]06-23-[facility] Miscellaneous Notes* Telephone Encounter - Gianna Alicea RN - 11/15/2024 8:02 AM EDT Daughter calling with request for lab orders. Daughter denies any new or worsening symptoms of which a provider is not aware: No. Daughter is not with mother. Unable to conference her in on the call.Informed there are blood orders on the chart. Advised that if she is having symptoms she needs to be conferenced in or call NOC back. Daughter states understanding. GO TO THE EMERGENCY ROOM OR CALL 911 IF: * You develop any new symptoms * Your condition worsens * You are concerned or anxious about your condition for any other reason. If you have any questions, you can call Nurse software solutions architect back. documented in this encounterThe [facility] System06-07-2025 Discharge summary [facility] Medical Records Department [address] [place] [address] Emergency Department Summary 10/30/24 MR#: [id number] Acct: [id number] Name: CHELSEA MOODY Rep #:[id number] : 1940 83 From: Clay Resendez MD PCP: Dr. Angela High MD Status:REG E R Location: ED HPI History of Present Illness Chief Complaint: Wound Check Informant: patient and family Narrative Narrative: 83-year-old female states she accidentally injured her right lower leg about 8 hours ago, was the corner of a car door as it was closing, grazed her leg, she did not have a major injury, was pretty minor but it has been bleeding and they have had difficulty getting it to stop. She was just recentlyadmitted to the hospital for stroke and discharged on aspirin and clopidogrel. She denies any systemic symptoms of anemia or fevers. [facility] Medical History Wears glasses Wears [...] DIABETES #60 t abs 09/03/24 10/21/24 Rx amlodipine 5 mg tablet 5 mg PO BID 10/22/24 5 History omeprazole 40 mg capsule,delayed 40 mg PO QDAY 5 10/22/24 History release losartan 50 mg tablet 50 mg PO DAILY 30 days #30 t abs 10/24/24 Unknown Rx Allergy/AdvReac Type Severity Reaction Status Date / Time hydrochlorothiazide AdvReac Severe hyponatremi Verified 10/29/24 23:24 a Family History (Updated 10/22/24 @ 20:[address] Axel Lockwood MD) Other Diabetes Surgical History History of cholecystectomy Social History Smoking Status: Never smoker ROS ROS ED Constitutional Constitutional ED: Denies chills, fatigue or fever(s) Cardiovascular Cardiovascular: Reports leg edema; Denies lightheadedness or syncope Musculoskeletal Musculoskeletal: Denies extremity pain Integumentary Reports as per HPI, wounds and other Details: Red/purplish skin around wound right lower leg Neurologic Neurologic: Denies headache(s) EXAM Physical Exam Const Vital Signs: 10/29/24 23:24 Temperature 97 F L Temperature Source Temporal Pulse Rate 101 H Respiratory Rate 18 Blood Pressure 203/55 H Blood Pressure Mean 104 Pulse Ox 98 Positive well nourished and well developed General Appearance ED: well developed HEENT normocephalic and atraumatic Resp normal respiratory effort Extremity full ROM Extremity Narrative: There is a superficial skin tear on the right mid thorpe, and the entire lower legsurrounding this isecchymotic and nontender. It is nonblanching ecchymosis/purpura from the tibial tuberosity almost down to the ankle. There is no sign of infection. There is minimal oozing active bleeding, no other di scharge. No tissue loss. All compartments are soft and nondistended. Full range of motion of the ankle and the knee without difficulty or limitation. Intact 2+/4 dorsalis pedis pulse. Neuro oriented x3 and CN's II-XII intact bilaterally Psych mental status grossly normal Skin Skin Narrative: skin tear right mid-thorpe; no lacerations MDM MDM MDM Narrative Medical decision making narrative: Patient and family worried about this being infected. She does not have any pain and there is no tenderness or signs of infection. All of this redness is blood/hematoma/ecchymosis. I do not think sheneeds to have blood counts obtained to check for blood loss, she does not have any symptoms of that, and although she does have a lot of ecchymosis it does not look like she has lost grams of hemoglobin on exam. Nurses cleansed and dressed with Surgifoam, bacitracin, and a dressing with a little bit of pressure. Neurovascular intact distally afterwards, she has the rest of the Surgifoam to use asan outpatient, and we discussed reasons to return. Discharge Plan Triage Chief Complaint: Wound Check ED Provider: Clay Resendez Dx/Rx/DC Orders Clinical Impression: Noninfected skin tear of right leg, Hematoma of right lower leg Instructions: ED Hematoma, ED Skin Tear (Skin Avulsion) Prescriptions: No Action amlodipine 5 mg tablet 5 mg PO [...] 10 unit subcut QHS Qty: 15 0RF losartan 50 mg Tablet 50 mg PO DAILY 30 Days Qty: 30 2RF Primary Care Provider: Angela High Referrals: Angela High MD [Primary Care Provider] - As Needed Print Language: Ghanaian Disposition Disposition: Home, Self Care What to do if you have Problems For any increased pain, shortness of breath, bleeding, nausea or vomiting, chestpain, or any unexpected problems, contact your Primary Care Provider. Call Doctors Registry ([phone]) or report tothe closest Emergency Room. Call 911 if necessary. 10/30/24 0022 Cosigner Signature (if applicable): CC: Dr. Angela High MD ~ Signed [facility]06-01-2025 Discharge summary Author [facility] Note Date/Time October 24, 2024 2:41p m [facility] Medical Records Department [address] [place] [address] Discharge Summary 10/24/24 1435 MR#: [id number] Acct: [id number] Name: CHELSEA MOODY Rep #:[id number] : 1940 83 From: Familia Hall barry HOLLAND PCP: Dr. Angela High MD Status:ADM I N Location: [place] [address] Providers Date of Admission: 10/22/24 Date of [...] is an 83-year-old female who presented to [facility] ED on 10/22/2024 with abnormal labs, [...] Self Care Charges/Coding Visit Charges Inpatient E&M: 35868 Disch Hosp >30min 10/24/24 1441 <Electronically signed by Familia Manriquez DO> Cosigner Signature (if applicable): CC: Dr. Familia Manriquez DO; Dr. Angela High MD~ Signed [facility] Work Phone: 1(280) 625-434706-01-2025 Discharge summary Author Familia Manriquez [facility] Note Date/Time October 24, 2024 2:37p m [facility] Medical Records Department [address] [place] [address] Instructions for Home/Discharge Instructions 10/24/24 1435 MR#: [id number] Acct: [id number] Name: CHELSEA MOODY Rep #:[id number] : 1940 83 From: Familia anand DO [...] MD; Dr. Axel Lockwood MD ~ Signed [facility] Work Phone: 1(281) 122-421606-01-2025 Discharge summary [facility] Medical Records Department [address] [place] [address] Discharge Summary 10/24/24 1435 MR#: [id number] Acct: [id number] Name: CHELSEA MOODY Rep #:[id number] : 1940 83 From: Familia anand DO PCP: Dr. Angela High MD Status:ADM I N Location: [place] [address] Providers Date of Admission: 10/22/24 Date of [...] is an 83-year-old female who presented to [facility] ED on 10/22/2024 with abnormal labs, [...] Self Care Charges/Coding Visit Charges Inpatient E&M: 55506 Disch Hosp >30min 10/24/24 1441 Cosigner Signature (if applicable): CC: Dr. Familia Manriquez DO; Dr. Angela High MD~ Signed [facility]06-01-2025 Discharge summary [facility] Medical Records Department [address] [place] [address] Instructions for Home/Discharge Instructions 10/24/24 1435 MR#: [id number] Acct: [id number] Name: CHELSEA MOODY Rep #:[id number] : 1940 83 From: Familia anand DO [...] can be placed): Home, Self Care 10/24/24 1437Aminna Manriquez DO CC: Dr. Angela High MD; Dr. Axel Lockwood MD ~ [facility]06-01-2025 [facility] Medical Records Department [address] [place] [address] Discharge Summary 10/24/24 1435 MR#: [id number] Acct: [id number] Name: CHELSEA MOODY Rep #: [id number] : 1940 83 From: Familia Manriquez DO PCP: Dr. Angela High MD Status:ADM IN [facility] Prov[facility] Date of Admission: 10/22/24 Date of [...] is an 83-year-old female who presented to [facility] ED on 10/22/2024 with abnormal labs, [...] GFR (MDRD) Non-Af 63, (more content not included)...[facility]05-31-2025 Progress note Author Familia Manriquez [facility] Note Date/Time October 23, 2024 11:35 am [facility] Medical Records Department [address] [place] [address] Progress Note - Hospitalist 10/23/24 1011 MR#: [id number] Acct: [id number] Name: CHELSEA MOODY Rep #:[id number] : 1940 83 From: Familia anand DO PCP: Dr. Angela High MD Status:ADM I N Location: [place] [address] Reason for Visit Reason for Visit: Diagnoses [...] 77.8 H, Lymph % (Auto) 10.8 L, [place]ins % (Auto) 10.3 H, Eos % (Auto) [...] Clarity Clear, Urine pH 6.0, Ur Specific Penitas 1.005, Urine Protein 15 H, Urine Glucose [...] 72.5 H, Lymph % (Auto) 13.7 L, [place] % (Auto) 12.0 H, Eos % (Auto) [...] is an 83-year-old female who presented to [facility] ED on 10/22/2024 with abnormal labs, [...] 35 minutes. Charges/Coding Visit Charges Inpatient E&M: 49639 Subs Hosp L2 10/23/24 0954 <Electronically signed by Familia Mosteller DO> Cosigner Signature (if applicable): CC: ~ Signed [facility] Work Phone: 1(208) 799-960905-31-2025 Progress note [facility] Medical Records Department [address] [place] [address] Progress Note - Hospitalist 10/23/24 1011 MR#: [id number] Acct: [id number] Name: CHELSEA MOODY Rep #:[id number] : 1940 83 From: Familia anand DO PCP: Dr. Angela High MD Status:ADM I N Location: [place] [address] Reason for Visit Reason for Visit: Diagnoses [...] 77.8 H, Lymph % (Auto) 10.8 L, [place] % (Auto) 10.3 H, Eos % (Auto) [...] Clarity Clear, Urine pH 6.0, Ur Specific [place] 1.005, Urine Protein 15 H, Urine Glucose [...] 72.5 H, Lymph % (Auto) 13.7 L, [place] % (Auto) 12.0 H, Eos % (Auto) [...] is an 83-year-old female who presented to [facility] ED on 10/22/2024 with abnormal labs, [...] 35 minutes. Charges/Coding Visit Charges Inpatient E&M: 42320 Subs Hosp L2 10/23/24 1135 Cosigner Signature (if applicable): CC: ~ Signed [facility]05-31-2025 Discharge summary Author Jony Lambert [facility] Note Date/Time October 22, 2024 11:02 pm [facility] Medical Records Department [address] [place] [address] Emergency Department Summary 10/22/24 MR#: [id number] Acct: [id number] Name: CHELSEA MOODY Rep #:[id number] : 1940 83 From: Jony Lambert DO PCP: Dr. Angela High MD Status:ADM I N Location: [place] [address] HPI History of Present Illness Chief Complaint: [...] is eating less but still drinking fluids [facility] Medical History (Updated 10/22/24 @ [...] 77.8 H Lymph % (Auto) 10.8 L Rawl[place] % (Auto) 10.3 H Eos % (Auto) [...] Weakness, Hypertension, History of stroke Disposition Disposition: [facility] What to do if you have Problems For any increased pain, shortness of breath, bleeding, nausea or vomiting, chestpain, or any unexpected problems, contact your Primary Care Provider. Call Doctors Registry ([phone]) or report to the closest Emergency Room. Call 911 if necessary. 05/30/25 2302 <Electronically signed by Jony Lambert DO> Cosigner Signature (if applicable): CC: Dr. Angela High MD ~ Signed [facility] Work Phone: 1(998) 458-267805-31-2025 History and physical note Author Axel Lockwood [facility] Note Date/Time October 22, 2024 10:19 pm [facility] Medical Records Department [address] [place] [address] H&P Exam - Hospitalist 10/22/242010 MR#: [id number] Acct: [id number] Name: CHELSEA MOODY Rep #:[id number] : 1940 83 From: Axel trujillo MD PCP: Dr. Angela High MD Status:ADM I N Location: [place] [address] HPI - General General Date of Admission: [...] she had a stroke back in August. [facility] Medical History Wears glasses Wears dentures Bruising Insulin dependent diabetes mellitus High cholesterol Stroke/cerebrovascular accident History of echocardiogram History of edema CVA (cerebral vascular accident) Diabetes mellitus, type 2 Obesity (BMI 30-39.9) GERD (gastroesophageal reflux disease) Hypertension Diabetes Home Medications ?Medication ?Instructions ?Recorded ?Last Taken ?Type aspirin 81 mg chewable tablet 81 mg PO BREAKFAST SUPPL EMENT #0 04/11/25 05/30/25 Rx tabs atorvastatin 40 mg tablet 40 [...] 77.8 H, Lymph % (Auto) 10.8 L, [place] % (Auto) 10.3 H, Eos % (Auto) [...] Clarity Clear, Urine pH 6.0, Ur Specific [place] 1.005, Urine Protein 15 H, Urine Glucose [...] with colleagues Charges/Coding Visit Charges Inpatient E&M: 12413 Init Hosp L3 10/22/24 2219 <Electronically signed by Axel Lockwood MD> Cosigner Signature (if applicable): CC: Dr. Angela High MD; Dr. Axel Lockwood MD~ Signed [facility] Work Phone: 1(957) 412-212505-30-2025 Discharge summary [facility] Medical Records Department [address] [place] [address] Emergency Department Summary 10/22/24 MR#: [id number] Acct: [id number] Name: CHELSEA MOODY Rep #:[id number] : 1940 83 From: Jony Lambert DO PCP: Dr. Angela High MD Status:ADM I N Location: [place] [address] HPI History of Present Illness Chief Complaint: [...] is eating less but still drinking fluids [facility] Medical History (Updated 10/22/24 @ [...] 77.8 H Lymph % (Auto) 10.8 L [place] % (Auto) 10.3 H Eos % (Auto) [...] of stroke Disposition Disposition: Acute Care Hospital [facility] What to do if you have Problems For any increased pain, shortness of breath, bleeding, nausea or vomiting, chestpain, or any unexpected problems, contact your Primary Care Provider. Call Doctors Registry ([phone]) or report tothe closest Emergency Room. Call 911 if necessary. 10/22/24 2309 Cosigner Signature (if applicable): CC: Dr. Angela High MD ~ Signed [facility]05-30-2025 History and physical note [facility] Medical Records Department [address] [place] [address] H&P Exam - Hospitalist 10/22/242010 MR#: [id number] Acct: [id number] Name: CHELSEA MOODY Rep #:[id number] : 1940 83 From: Aexl trujillo MD PCP: Dr. Angela High MD Status:ADM I N Location: [place] [address] HPI - General General Date of Admission: [...] she had a stroke back in August. [facility] Medical History Wears glasses Wears dentures Bruising [...] 77.8 H, Lymph % (Auto) 10.8 L, [place] % (Auto) 10.3 H, Eos % (Auto) [...] Clarity Clear, Urine pH 6.0, Ur Specific [place] 1.005, Urine Protein 15 H, Urine Glucose [...] with colleagues Charges/Coding Visit Charges Inpatient E&M: 89549 Init Hosp L3 10/22/24 2219 Cosigner Signature (if applicable): CC: Dr. Angela High MD; Dr. Axel Lockwood MD~ Signed [facility]05-30-2025 Radiology Diagnostic study note [facility] Imaging Services [address] [place] [address] CTA Head AND Neck W/ Contrast MR#: [id number] Acct: [id number] Name: CHELSEA MOODY Rep #: [id number] : 1940 F 83 From: Moreno Lee MD PCP: Dr. Angela High MD Status: REG C LI Study:CTA Head AND Neck W/ Contrast Date of E xam: 10/22/24 Exam# [id number] Ordering Dr: Eric Haro PA PROCEDURE: CTA HEAD AND NECK W/ CONTRAST [...] RIGHT Vertebral: Patent. LEFT Vertebral: Patent. Anatomy: [place] anatomy is normal. Aneurysm or [...] characterization with ultrasound is recommended. Reading Location: [place] [address] CC: DAVI Green; Dr. Angela High MD ~ Tumbler Drier Operator: Signed [facility]05-30-2025 Telephone encounter Note* Telephone Encounter - Sivakumar Barrios MA - 10/22/2024 9:08 AM EDT The following approved medication requests have been transmitted electronically. Requested Prescriptions Signed Prescriptions Disp Refills omeprazole (PRILOSEC) 40 mg capsule 90 capsule 1 Sig: Take 1 capsule by mouth once daily. Sivakumar Barrios MA [facility]05-30-2025 Miscellaneous Notes* Telephone Encounter - Sivakumar Barrios MA - 10/22/2024 9:08 AM EDT The following approved medication requests have been transmitted electronically. Requested Prescriptions Signed Prescriptions Disp Refills omeprazole (PRILOSEC) 40 mg capsule 90 capsule 1 Sig: Take 1 capsule by mouth once daily. Sivakumar Barrios MA documented in this encounterThe [facility] System05-19-2025 NoteHNO ID: [id number] Author: ANGELA HIGH MD Service: ? Author [...] (R26.2) Decreased mobility a (more content not included)...[facility] 10-11-2024 History of Present illness [...] RSV Vaccine(1 - 1-dose 75+ series) Covid-19 Vaccine(2023- season) Advance Directive Discussion@ Review Of Systems [...] excuse any unintended typographical errors. Recording using Tric[employer] software for draft documentation of the visit was discussed with the patient/authorized appeals representative; all questions welcomed and answered. Patient/authorized appeals representative agreed to proceed Angela High MD documented in this encounterThe Metrohealth System05-19-2025 Instructions* Patient Instructions* Angela High MD - [...] your medications or recovery. documented in this encounterThe Metrohealth System05-14-2025 Discharge summary [facility] Medical Records Department [address] [place] [address] Discharge Summary 10/06/24 1257 MR#: [id number] Acct: [id number] Name: CHELSEA MOODY Rep #:[id number] : 1940 83 From: Sonali TOMLINSON PCP: Dr. Angela High MD Status:ADM I N Location: ICU ICU05-1 Providers Date of Admission: 10/05/24 Primary Care Physician: Dr. 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 in Epic Willow Analyst, OR Staff, Eugene BAR Medications at Discharge [...] <160 systolicsince. I removed the CHITO drain early childhood services coordinator of 10/06 without issue, subsequently she had [...] lb 4.28 oz Body Mass Index (BMI) 591112.8 ABG / Lab / Microbiology Data 10/06/24 [...] 80.6 H, Lymph % (Auto) 10.0 L, Rawlins % (Auto) 8.5, Eos % (Auto) 0.1, [...] as [facility] for [facility] weeks. MEDICATION INSTRUCTIONS Continue [...] call the office. Call the office at [phone] with any questions about your medications ACTIVITY [...] other questions/concerns, please call the office at [phone]. Please Follow Up With: Sonali Haro PA [...] as to take a bath or [facility]. for 3 weeks. MEDICATION INSTRUCTIONS Continue [...] call the office. Call the office at [phone] with any questions about your medications ACTIVITY [...] other questions/concerns, please call the office at [phone]. Discharge Orders/Prescriptions Prescriptions: New amlodipine 5 mg [...] Home, Self Care Charges/Coding Procedures Integumentary 111xxx-113xx: 78941 Global Visit 10/06/24 1501 Cosigner Signature (if applicable): 10/06/24 1647 CC: DAVI Green; Dr. Angela High MD; Dr. Ugo Rogel MD~ [facility]05-14-2025 Discharge summary Author Sonali [facility] Note Date/Time October 06, 2024 4:47p [facility] Medical Records Department [facility] [place] [address] Discharge Summary 10/06/24 1257 MR#: [id number] Acct: [id number] Name: CHELSEA MOODY Rep #:[id number] : 1940 83 From: Sonali TOMLINSON PCP: Dr. Angela High MD Status:ADM I N Location: ICU [place] [address] Providers Date of Admission: 10/05/24 Primary Care Physician: Dr. 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 in Epic Willow Analyst, OR Staff, BLUEPRINT CLERK, Anes Medications at Discharge Home Medications aspirin [...] <160 systolicsince. I removed the CHITO drain early childhood services coordinator of 10/06 without issue, subsequently she had [...] lb 4.28 oz Body Mass Index (BMI) 177523.8 ABG / Lab / Microbiology Data 10/06/24 [...] 80.6 H, Lymph % (Auto) 10.0 L, Rawlins % (Auto) 8.5, Eos % (Auto) 0.1, [...] as to take a bath or [facility] for [facility] weeks. MEDICATION INSTRUCTIONS Continue [...] call the office. Call the office at [phone] with any questions about your medications ACTIVITY [...] other questions/concerns, please call the office at [phone]. Please Follow Up With: Sonali Haro PA [...] as to take a bath or [facility] for [facility] weeks. MEDICATION INSTRUCTIONS Continue [...] call the office. Call the office at [phone] with any questions about your medications ACTIVITY [...] other questions/concerns, please call the office at [phone]. Discharge Orders/Prescriptions Prescriptions: New amlodipine 5 mg [...] Home, Self Care Charges/Coding Procedures Integumentary 111xxx-113xx: 64377 Global Visit 10/06/24 1501 <Electronically signed by Sonali TOMLINSON> Cosigner Signature (if applicable): 10/06/24 1647 <Electronically signed by Ugo Rogel MD> CC: DAVI Green; Dr. Angela High MD; Dr. Ugo Rogel MD~ Signed [facility] Work Phone: 1(317) 683-832005-14-2025 [facility] Medical Records Department [address] [place] [address] Discharge Summary 10/06/24 1257 MR#: [id number] Acct: [id number] Name: CHELSEA MOODY Rep #: [id number] : 1940 83 From: Sonali TOMLINSON PCP: Dr. Angela High MD Status:ADM IN Location: ICU [place] [address] Providers Date of Admission: 10/05/24 Primary Care Physician: Dr. 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 in Epic Willow Analyst, OR Staff, BLUEPRINT CLERK, Anes Medications at Discharge Home Medications aspirin [...] systolic since. I removed the CHITO drain early childhood services coordinator of 10/06 without issue, subsequently she had [...] lb 4.28 oz Body Mass Index (BMI) 202364.8 ABG / Lab / Microbiology Data 10/06/24 [...] 80.6 H, Lymph % (Auto) 10.0 L, Rawlins % (Auto) 8.5, Eos % (Auto) 0.1, [...] CPAP, BIPAP Needs Home (more content not included)...[facility]05-13-2025 Consult note Author Abhilash Serrano [facility] Note Date/Time October 05, 2024 2:04p [facility] Medical Records Department [address] [place] [address] Anesthesia Postop Eval II 10/05/24 1403 MR#: [id number] Acct: [id number] Name: CHELSEA MOODY Ravinder Rep #:[id number] : 1940 83 From: Abhilash Rousseau PCP: Dr. Angela High MD Status:ADM I N Y Race: C Location: ICU ICU05 - Anesthesia Postop Eval I Sum Postop Eval Completion status Anesthesia document: Postop Eval 1 completed: Yes Anesthesia Postop Eval I Summary Anesthesia Postop Eval I Summary: Anesthesia Postop Eval I: Assessment Summary Airway patent Yes 10/05/24 10:30 ROADABILITY MACHINE OPERATOR.GDOTT Spontaneous unlabored Yes 10/05/24 10:30 ROADABILITY MACHINE OPERATOR.GDOTT respirations Mental status Awake,Calm 10/05/24 10:30 ROADABILITY MACHINE OPERATOR.GDOTT nausea No 10/05/24 10:30 ROADABILITY MACHINE OPERATOR.GDOTT Vomiting No 10/05/24 10:30 ROADABILITY MACHINE OPERATOR.GDOTT Anesthesia Postop Eval I: Fluid Summary Crystalloid volume administer 1,500 10/05/24 10:30 ROADABILITY MACHINE OPERATOR.GDOTT (ml) Colloids volume administered ( ml) Blood Product volume administered (ml) Total IV fluid infused 1,500 10/05/24 10:30 ROADABILITY MACHINE OPERATOR.GDOTT Anesthesia Postop Eval I: Summary Notes Anesthesia Complication No 10/05/24 10:30 ROADABILITY MACHINE OPERATOR.GDOTT Anesthesia Complication Comment: Post-operative progress note Anesthesia: Postop Eval II Evaluation Mental status: Awake and Calm Pain Level: 3 nausea: No Vomiting: No Progress Note Post-operative progress note: Patient transferred to the ICU on 10 mcg/min nitroglycerin. meeting SBP goals Complications Anesthesia Complication: No 10/05/24 7438 <Electronically signed by Abhilash Serrano MD> Date _ Abhilash Serrano MD Cosigner Signature: Date CC: ~ Signed [facility] Work Phone: 1(225) 687-940905-13-2025 Procedure note [facility] Medical Records Department [address] [place] [address] Operative Report 10/05/24 0943 MR#: [id number] Acct: [id number] Name: CHELSEA MOODY Rep #:[id number] : 1940 83 From: Ugo Rogel MD PCP: Dr. Angela High MD Status:ADM I N Location: ICU ICU-1 Operative Report (Standard) Operative Information Date of Procedure: 10/05/24 Pre-Operative Diagnosis: right carotid stenosis Post-Operative Diagnosis: same Surgery/Procedure Performed: right carotid stent, trans carotid fire loss prevention engineer: Yes Industrial Spraypainter: Ingrid Rodríguez Tasks completed by assistant professor of criminal justice: Opening, Closing, Opening & closing, Hemostasis: Electrocautery [...] site the patient was taken to the Epic Willow Analyst where she was placed under general anesthesia. [...] the micropuncture sheath exchanged for the 8 Bruneian venous return sheath. Next the common carotidartery [...] topical hemostatic was applied and a 19 Bruneian channel CHITO placed via separate stab incision. [...] High MD; Dr. Ugo Rogel MD~ Signed [facility]05-13-2025 Consult note [facility] Medical Records Department [address] [place] [address] Anesthesia Postop Eval II 10/05/24 1403 MR#: [id number] Acct: [id number] Name: CHELSEA MOODY Rep #:[id number] : 1940 83 From: Abhilash Rousseau PCP: Dr. Angela High MD Status:ADM I N Y Race: C Location: ICU ICU Anesthesia Postop Eval I Sum Postop Eval Completion status Anesthesia document: Postop Eval 1 completed: Yes Anesthesia Postop Eval I Summary Anesthesia Postop Eval I Summary: Anesthesia Postop Eval I: Assessment Summary Airway patent Yes 10/05/24 10:30 ROADABILITY MACHINE OPERATOR.GDOTT Spontaneous unlabored Yes 10/05/24 10:30 ROADABILITY MACHINE OPERATOR.GDOTT respirations Mental status Awake,Calm 10/05/24 10:30 ROADABILITY MACHINE OPERATOR.GDOTT nausea No 10/05/24 10:30 ROADABILITY MACHINE OPERATOR.GDOTT Vomiting No 10/05/24 10:30 ROADABILITY MACHINE OPERATOR.GDOTT Anesthesia Postop Eval I: Fluid Summary Crystalloid volume administer 1,500 10/05/24 10:30 ROADABILITY MACHINE OPERATOR.GDOTT (ml) Colloids volume administered ( ml) Blood Product volume administered (ml) Total IV fluid infused 1,500 10/05/24 10:30 ROADABILITY MACHINE OPERATOR.GDOTT Anesthesia Postop Eval I: Summary Notes Anesthesia Complication No 10/05/24 10:30 ROADABILITY MACHINE OPERATOR.GDOTT Anesthesia Complication Comment: Post-operative progress note Anesthesia: Postop Eval II Evaluation Mental status: Awake and Calm Pain Level: 3 nausea: No Vomiting: No Progress Note Post-operative progress note: Patient transferred to the ICU on 10 mcg/min nitroglycerin. meeting SBP goals Complications Anesthesia Complication: No 10/05/24 1404 > Date _ Abhilash Serrano MD Cosigner Signature: Date CC: ~ Signed [facility]05-13-2025 Consult note Author Araceli Morejon [facility] Note Date/Time October 05, 2024 10:30 am [facility] Medical Records Department [address] [place] [address] Anesthesia Postop Eval I 10/05/24 1010 MR#: [id number] Acct: [id number] Name: JARAMACHELSEA Hayes Rep #:[id number] : 1940 83 From: Araceli Morejon PCP: Dr. Angela High MD Status:ADM I N Y Race: C Location: ICU ICU05 - Anesthesia: Postop Eval I Current Vital [...] Araceli العراقي Signature: Date CC: ~ Signed [facility] Work Phone: 1(808) 345-177605-13-2025 Consult note [facility] Medical Records Department [address] [place] [address] Anesthesia Postop Eval I 10/05/24 1010 MR#: [id number] Acct: [id number] Name: HEIDYCHELSEA Ravinder Rep #:[id number] : 1940 83 From: Araceli Morejon PCP: Dr. Angela High MD Status:ADM I N Y Race: C Location: ICU ICU05 -1 Anesthesia: Postop Eval I Current Vital Signs [...] Yes 10/05/24 1030 > Date _ Araceli Gagefilippobarry Mossigner Signature: Date CC: ~ Signed [facility]05-13-2025 History and physical note Author Ugo Rogel [facility] Note Date/Time October 05, 2024 7:25a m [facility] Medical Records Department [address] [place] [address] History & Physical Exam 10/05/24724 MR#: [id number] Acct: [id number] Name: CHELSEA MOODY Rep #:[id number] : 1940 83 From: Ugo Rogel MD PCP: Dr. Angela High MD Status:ADM I N Location: [place] [address] History and Physical Allergies No Known Allergies Allergy (Verified 08/31/24 19:32) Medications ?Medication ?Instructions ?Recorded ?Confirmed ?Type aspirin 81 mg chewable tablet 81 mg PO BREAKFAST #0 tabs 09/03/2408/25 Rx atorvastatin 40 mg tablet 40 mg PO QHS #30 tabs 09/03/24 09/17/24 Rx carvedilol 12.5 mg tablet 12.5 mg PO BIDCM #60 tabs 09/03/2409/17 Rx clopidogrel 75 mg tablet 75 mg PO DAILY #30 tabs 09/03/2409/17/ 5 Rx insulin glargine 100 unit/mL (3 [...] you fallen in the past year?: [facility] CVA (cerebral vascular accident) Diabetes mellitus, type 2 Obesity (BMI 30-39.9) GERD (gastroesophageal reflux disease) Hypertension Diabetes Social History Smoking Status: Never smoker HPI HPI HPI: CHELSEA MOODY, is a 83 F who presents to the office today for hospital follow- upfrom CVA. On 08/31/24, she presented to the [facility] ER with binocular vision darkeningand [...] High MD; Dr. Ugo Rogel MD~ Signed [facility] Work Phone: 1(917) 177-410905-13-2025 Consult note Author Abhilash Serrano [facility] Note Date/Time October 05, 2024 6:49a [facility] Medical Records Department [address] [place] [address] Pre-Anesthesia Evaluation 10/05/24 0639 MR#: [id number] Acct: [id number] Name: CHELSEA MOODY Rep #:[id number] : 1940 83 From: Abhilash Rousseau PCP: Dr. Angela High MD Status:ADM I N Y Race: C Location: [place] [address] ASA Classification* ASA Classification ASA Classification: 3 [...] CAROTID STENT Anesthesia History Anesthesia History - whitewasher: Anesthesia History - whitewasher Hx Hospitalization Yes: AT [facility] 09/23/24 11:46 Any Problems [...] take am of surgery PONV PONV - whitewasher: PONV - whitewasher Female Yes 09/23/24 11:46 HX of Motion [...] 10/05/24 05:50 Respiratory Assessment Respiratory Assessment - whitewasher: Respiratory Tract Infection Hx - whitewasher Hx Respiratory Tract Infection No 09/23/24 11:46 STOP Sleep Apnea STOP Sleep Apnea - whitewasher: STOP Sleep Apnea - whitewasher Hx Hypertension Yes 09/23/24 11:46 Hx Sleep [...] Tobacco Use History Tobacco Use History - whitewasher: Tobacco Use History - whitewasher Tobacco Use Smoking Status Never smoker 09/23/24 11:46 Hx Tobacco Use No 09/23/24 11:46 Years Smoking Packs Smoked per Day Smoking Cessation Date was within the last 15 years Hx Smoking Cessation Date Hx Smoking Cessation Counseling Hematologic Medial History Hematologic Hx - whitewasher: Hematologic Medical Hx - special events manager Hx of Blood Transfusion No 09/23/24 11:46 Hx of Transfusion in last 3 No 09/23/24 11:46 Months Date of Last Transfusion (if within last 3 months) Ever experience any problems No 09/23/24 11:46 with transfusion(s)? Specify any problems Hx of Preganancy in last 3 No 09/23/24 11:46 Months Nurse Filling Out Transfusion [facility] 09/23/24 11:46 & Questions: Date: 09/23/24 09/23/24 11:46 Time: 11:53 09/23/24 11:46 Patient unable to answer at this time (ie. confused, unrespo /Reproduction History /Reproductive History - whitewasher: /Reproductive Hx- whitewasher Hx Now No 09/23/24 11:46 Gestational Age [...] MD Cosigner Signature: Date CC: ~ Signed [facility] Work Phone: 1(190) 869-758505-13-2025 History and physical note [facility] Medical Records Department [address] [place] [address] History & Physical Exam 10/05/24724 MR#: [id number] Acct: [id number] Name: CHELSEA MOODY Rep #:[id number] : 1940 83 From: Ugo Rogel MD PCP: Dr. Angela High MD Status:ADM I N Location: [place] [address] History and Physical Allergies No Known Allergies Allergy (Verified 08/31/24 19:32) Medications ?Medication ?Instructions ?Recorded ?Confirmed ?Type aspirin 81 mg chewable tablet 81 mg PO BREAKFAST #0 tabs 09/03/2408/25 Rx atorvastatin 40 mg tablet 40 mg [...] you fallen in the past year?: Yes [facility] Medical History CVA (cerebral vascular accident) Diabetes mellitus, type 2 Obesity (BMI 30-39.9) GERD (gastroesophageal reflux disease) Hypertension Diabetes Social History Smoking Status: Never smoker HPI HPI HPI: CHELSEA MOODY, is a 83 F who presents to the office today for hospital follow- upfrom CVA. On 08/31/24, she presented to the [facility] ER with binocular vision darkeningand [...] Status: Acute Plan -right TCAR 10/05/24 0725 Cosigner Signature (if applicable): CC: Dr. Angela High MD; Dr. Ugo Rogel MD~ Signed [facility]05-13-2025 [facility] Medical Records Department [address] [place] [address] History Physical Exam 10/05/24 0725 MR#: [id number] Acct: [id number] Name: HEIDYCHELSEA A Rep #: [id number] : 1940 83 From: Ugo Rogel MD PCP: Dr. Angela High MD Status:ADM IN Location: [place] [address] History and Physical Allergies No Known Allergies [...] you fallen in the past year?: Yes [facility] Medical History CVA (cerebral vascular accident) Diabetes mellitus, type 2 Obesity (BMI 30-39.9) GERD (gastroesophageal reflux disease) Hypertension Diabetes Social History Smoking Status: Never smoker HPI HPI HPI: CHELSEA MOODY, is a 83 F who presents to the office today for hospital follow-up from CVA. On 08/31/24, she presented to the [facility] ER with binocular vision darkening [...] Ears: hearing grossly normal (more content not included)...[facility]05-13-2025 Consult note [facility] Medical Records Department [address] [place] [address] Pre-Anesthesia Evaluation 10/05/24 0639 MR#: [id number] Acct: [id number] Name: CHELSEA MOODY Rep #:[id number] : 1940 83 From: Abhilash Rousseau PCP: Dr. Angela High MD Status:ADM I N Y Race: C Location: [place] [address] ASA Classification* ASA Classification ASA Classification: 3 [...] 09/03/24 TSH 2.070 uIU/mL (0.300-4.200) 08/31/24 23:19 01/17 COAG Pre-Assessment Diagnosis/Proposed Procedure Planned Operative Procedure(s): RIGHT CAROTID STENT Anesthesia History Anesthesia History - whitewasher: Anesthesia History - whitewasher Hx Hospitalization Yes: AT [facility] 09/23/24 11:46 Any Problems [...] take am of surgery PONV PONV - whitewasher: PONV - whitewasher Female Yes 09/23/24 11:46 HX of Motion [...] 10/05/24 05:50 Respiratory Assessment Respiratory Assessment - whitewasher: Respiratory Tract Infection Hx - whitewasher Hx Respiratory Tract Infection No 09/23/24 11:46 STOP Sleep Apnea STOP Sleep Apnea - whitewasher: STOP Sleep Apnea - whitewasher Hx Hypertension Yes 09/23/24 11:46 Hx Sleep [...] Tobacco Use History Tobacco Use History - whitewasher: Tobacco Use History - whitewasher Tobacco Use Smoking Status Never smoker 09/23/24 11:46 Hx Tobacco Use No 09/23/24 11:46 Years Smoking Packs Smoked per Day Smoking Cessation Date was within the last 15 years Hx Smoking Cessation Date Hx Smoking Cessation Counseling Hematologic Medial History Hematologic Hx - whitewasher: Hematologic Medical Hx - special events manager Hx of Blood Transfusion No 09/23/24 11:46 Hx of Transfusion in last 3 No 09/23/24 11:46 Months Date of Last Transfusion (if within last 3 months) Ever experience any problems No 09/23/24 11:46 with transfusion(s)? Specify any problems Hx of Preganancy in last 3 No 09/23/24 11:46 Months Nurse Filling Out Transfusion [facility] 09/23/24 11:46 & Questions: Date: 09/23/24 09/23/24 11:46 Time: 11:53 09/23/24 11:46 Patient unable to answer at this time (ie. confused, unrespo /Reproduction History /Reproductive History - whitewasher: /Reproductive Hx- whitewasher Hx Now No 09/23/24 11:46 Gestational Age [...] MD Cosigner Signature: Date CC: ~ Signed [facility]05-12-2025 Telephone encounter Note* Telephone Encounter - [...] three times a day. Sivakumar Barrios MA [facility]05-12-2025 Miscellaneous Notes* Telephone Encounter - Sivakumar Barrios [...] pharmacy. Barry Holt LPN documented in this encounterThe [facility] System05-08-2025 Telephone encounter Note * Telephone Encounter - Barry Holt LPN - 09/30/2024 11:09 AM EDT Patient Whittl[place] message requesting the following refill Refill(s) Requested: [...] (home) Last Office Visit Date: 09/10/2024 Last [facility] Visit: Visit date not found Future Appointment: 10/11/2024 The patients preferred pharmacy has been captured for this encounter? yes Request is for script(s) to be escript to pharmacy. Barry Holt LPN [facility]05-06-2025 NotePatient Outreach (INTMMN) CHELSEA MOODY ([id number]) 1940 F [facility] Date Time Provider Department 09/28/24 ANGELA HIGH During your visit today, we recorded the following information about you: Allergies As of Date: 09/28/2024 (No Known Allergies) Date Reviewed: 09/10/2024 Reviewed by: Leona Perry MA - Fully Assessed Visit Diagnosis:Type 2 diabetes mellitus without complication, without long-term current use of insulin (HCC) [E11.9] Order(s):ALBUMIN/CREATININE RATIO, URINE [SQUACR] Order #: [id number] FUTURE HEMOGLOBIN A1C [DQMUQ1A] Order #: [id number] FUTURE LIPID PANEL, FASTING [SQLIPB] Order #: [id number] FUTURE COMPLETE BLOOD COUNT [SQCBC] Order #: [id number] FUTURE Prescriptions as of 10/01/2024 - atorvastatin [...] *09/10/2024 Hypertension [I10] 09/10/2024 Encounter Status:Closed by RA PATRICK on 10/01/24[facility] 09-13-2024 Telephone encounter Note* Telephone Encounter - Pippa Nichols RN - 09/13/2024 8:53 AM EDT Daughter (Barry) calls to report that prescriptions for amlodipine and losartan- HCTZ were not received at [facility]. Called and spoke to Randa. 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 Randa mentioned that patient hastwo accounts in her name. Call placed to daughter to notify. Message left for Barry. When returns call let her know medications are both ready for pick pulling machine operator but I also wanted to mention to her that [facility] mentioned she had two accounts which might be causing confusion? Pippa Nichols RN [facility]04-21-2025 Miscellaneous Notes* Telephone Encounter - Pippa Nichols RN - 09/13/2024 8:53 AM EDT Daughter (Barry) calls to report that prescriptions for amlodipine and losartan- HCTZ were not received at [facility]. Called and spoke to Randa. 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 Randa mentioned that patient hastwo accounts in her name. Call placed to daughter to notify. Message left for Barry. When returns call let her know medications are both ready for pick pulling machine operator but I also wanted to mention to her that [facility] mentioned she had two accounts which might be causing confusion? Pippa Nichols RN documented in this encounterThe Metrohealth System04-18-2025 Instructions* Patient Instructions* Angela High MD - [...] please contact our office. documented in this encounterThe [facility]health System04-18-2025 NoteHNO ID: [id number] Author: ANGELA HIGH MD Service: ? Author Type: Physician Type: Progress Notes Filed: 09/10/2024 12:54 Note Text: [facility] visit: Date of Admission: 09/01/24 Date of Discharge: 09/03/24 Discharge Diagnosis (1) CVA (cerebral vascular accident): Status: Acute Discharge diagnoses: Acute right frontal lobe stroke Hypertensive emergency Carotid artery stenosis right greater than left Hyperlipidemia DM-2 uncontrolled Obesity Hypertension Please see hospital discharge below Hospital Course: Mrs. Underwood is an 83-year-old white female who presents emergency department at [facility] on 08/31/2024 with a chief complaint [...] 0RF carvedilol 12.5 mg (more content not included)...[facility] 09-10-2024 History of Present illness Narrative* Angela High MD - 09/10/2024 11:23 AM EDT [facility] visit: Date of Admission: 09/01/24 Date of Discharge: 09/03/24 Discharge Diagnosis (1) CVA (cerebral vascular accident): Status: Acute Discharge diagnoses: Acute right frontal lobe stroke Hypertensive emergency Carotid artery stenosis right greater than left Hyperlipidemia DM-2 uncontrolled Obesity Hypertension Please see hospital discharge below Hospital Course: Mrs. Underwood is an 83-year-old white female who presents emergency department at [facility] on 08/31/2024 with a chief complaint [...] 1-dose 75+ series) Influenza Vaccine(1) Covid-19 Vaccine( season) Advance Directive Discussion@ Review [...] any unintended typographical errors. Recording using ambient [employer] software for draft documentation of the visit was discussed with the patient/authorized appeals representative; all questions welcomed and answered. Patient/authorized appeals representative agreed to proceed Angela High MD * Leona Perry MA - 09/10/2024 11:20 AM EDT [facility] visit: Date of Admission: 09/01/24 Date of Discharge: 09/03/24 Discharge Diagnosis (1) CVA (cerebral vascular accident): Status: Acute Discharge diagnoses: Acute right frontal lobe stroke Hypertensive emergency Carotid artery stenosis right greater than left Hyperlipidemia DM-2 uncontrolled Obesity Hypertension Hospital Course: Mrs. Underwood is an 83-year-old white female who presents emergency department at [facility] on 08/31/2024 with a chief complaint [...] 2. Additional description as above. R #: [id number] CT/CTA Head AND Neck W/ Contrast IMPRESSION: [...] Up: Angela High MD [Med Staff - Diagnostics Tech] - Within 1 Week Ugo Rogel MD [Med Staff - Active Staff] - Within 1 Week Kurt Lieberman MD [Primary Care Provider] - Choco Quinones MD [Non-Staff -Ordering Privileges] - See Referral Note (3 to 6months) [facility] NoteHNO ID: [id number] Author: LEONA PERRY MA Service: ? Author Type: Utilities And Maintenance Supervisor Type: Progress Notes Filed: 09/10/2024 12:54 Note Text: [facility] visit: Date of Admission: 09/01/24 Date of Discharge: 09/03/24 Discharge Diagnosis (1) CVA (cerebral vascular accident): Status: Acute Discharge diagnoses: Acute right frontal lobe stroke Hypertensive emergency Carotid artery stenosis right greater than left Hyperlipidemia DM-2 uncontrolled Obesity Hypertension Hospital Course: Mrs. Underwood is an 83-year-old white female who presents emergency department at [facility] on 08/31/2024 with a chief complaint [...] IMPRESSION: 1. Punctate hi (more content not included)...[facility] 09-03-2024 Discharge summary Author Dariana Wise [facility] Note Date/Time September 03, 2024 2:0 4pm [facility] Medical Records Department [address] [place] [address] Discharge Summary 09/03/24 1210 MR#: [id number] Acct: [id number] Name: CHELSEA MOODY Rep #:[id number] : 1940 83 From: Dariana Wise DO PCP: Dr. Kurt Lieberman MD Status:A DM IN Location: [place] [address] Providers Date of Admission: 09/01/24 Date of [...] white female who presents emergency department at [facility] on 08/31/2024 with a chief complaint [...] % (Auto) 64.5, Lymph % (Auto) 22.9, Rawlins % (Auto) 9.8, Eos % (Auto) 1.9, [...] Up: Angela High MD [Med Staff - Diagnostics Tech] - Within 1 Week Ugo Rogel MD [Med Staff - Active Staff] - Within 1 Week Kurt Lieberman MD [Primary Care Provider] - Choco Quinones MD [Non-Staff -Ordering Privileges] - See Referral Note (3 to 6months) Disposition Disposition (needs filled in before D/C Order can be placed): Home, Self Care Charges/Coding Visit Charges Inpatient E&M: 28626 Disch Hosp >30min 09/03/24 1404 <Electronically signed by Dariana Wise DO> Cosigner Signature (if applicable): CC: Dr. Angela High MD; Dr. Ugo Rogel MD; Dr. Kurt Lieberman MD; Dr. Dariana Wise DO; Dr. Choco Quinones MD~ Signed [facility] Work Phone: 1(622) [phone] Discharge summary [facility] Medical Records Department [address] [place] [address] Discharge Summary 09/03/24 1210 MR#: [id number] Acct: [id number] Name: CHELSEA MOODY Rep #:[id number] : 1940 83 From: Dariana Wise DO PCP: Dr. Kurt Lieberman MD Status:A DM IN [facility] Providers Date of Admission: 09/01/24 [...] white female who presents emergency department at [facility] on 08/31/2024 with a chief complaint [...] Neut% (Auto) 64.5, Lymph % (Auto) 22.9, Rawlins % (Auto) 9.8, Eos % (Auto) 1.9, [...] Up: Angela High MD [Med Staff - Diagnostics Tech] - Within 1 Week Ugo Rogel MD [Med Staff - Active Staff] - Within 1 Week Kurt Lieberman MD [Primary Care Provider] - Choco Quinones MD [Non-Staff -Ordering Privileges] - See Referral Note (3 to 6months) Disposition Disposition (needs filled in before D/C Order can be placed): Home, Self Care Charges/Coding Visit Charges Inpatient E&M: 97511 Disch Hosp >30min 09/03/24 1404 Cosigner Signature (if applicable): CC: Dr. Angela High MD; Dr. Ugo Rogel MD; Dr. Kurt Lieberman MD; Dr. Dariana Wise DO; Dr. Choco Quinones MD~ Signed [facility]04-11-2025 [facility] Medical Records Department [address] [place] [address] Discharge Summary 09/03/24 1210 MR#: [id number] Acct: [id number] Name: CHELSEA MOODY Rep #: [id number] : 1940 83 From: Dariana Wise DO PCP: Dr. Kurt Lieberman MD Status:ADM IN Location: [facility] [id number] Providers Date of Admission: 09/01/24 Date of [...] white female who presents emergency department at [facility] on 08/31/2024 with a chief complaint [...] her with 600 mg (more content not included)...[facility]04-10-2025 Progress note Author Monik Barker [facility] Note Date/Time September 02, 2024 9:2 1pm [facility] Medical Records Department [address] [place] [address] Progress Note - Neurology 09/02/24 1442 MR#: [id number] Acct: [id number] Name: CHELSEA MOODY Rep #:[id number] : 1940 83 From: Monik Barker MD PCP: Dr. Kurt Lieberman MD Status:A DM IN Location: [place] [address] Objective Data Objective Data Vital Signs: Vital [...] acute occlusion, dissection or aneurysm [facility] Physical Exam Narrative -? NEURO: -? Mental [...] 40mg Smoking Cessation Diabetes Management long term care pharmacist blood pressure control should achieve <130/80 mmHg. BP managementshould aim to achieve senior living contorl in a reasonable amount of time, [...] Cosigner Signature (if applicable): CC: ~ Signed [facility] Work Phone: [phone]) 367-387404-10-2025 Progress note [facility] Medical Records Department [address] [place] [address] Progress Note - Neurology 09/02/24 1442 MR#: [id number] Acct: [id number] Name: CHELSEA MOODY Rep #:[id number] : 1940 83 From: Monik Barker MD PCP: Dr. Kurt Lieberman MD Status:A DM IN Location: [place] [address] Objective Data Objective Data Vital Signs: Vital [...] acute occlusion, dissection or aneurysm [facility] Exam Narrative -? NEURO: -? Mental [...] Cosigner Signature (if applicable): CC: ~ Signed [facility]04-10-2025 Progress note Author Dariana Wise [facility] Note Date/Time September 02, 2024 6:5 1pm [facility] Medical Records Department [address] [place] [address] Progress Note - Hospitalist 09/02/248 MR#: [id number] Acct: [id number] Name: CHELSEA MOODY Rep #:[id number] : 1940 83 From: Dariana Wise DO PCP: Dr. Kurt Lieberman MD Status:A DM IN [facility] Reason for Visit Reason for Visit: Dizziness/hypertension [...] fluid responsive. Charges/Coding Visit Charges Inpatient E&M: 73079 Subs Hosp L2 04/10/25 1851 <Electronically signed by Dariana Wise DO> Cosigner Signature (if applicable): CC: ~ Signed [facility] Work Phone: [phone]) [phone] Progress note [facility] Medical Records Department [address] [place] [address] Progress Note - Hospitalist 09/02/24 1718 MR#: [id number] Acct: [id number] Name: CHELSEA MOODY Rep #:[id number] : 1940 83 From: Dariana Wise DO PCP: Dr. Kurt Lieberman MD Status:A DM IN Location: [place] [address] Reason for Visit Reason for Visit: Dizziness/hypertension [...] fluid responsive. Charges/Coding Visit Charges Inpatient E&M: 76706 Subs Hosp L2 09/02/24 1851 Cosigner Signature (if applicable): CC: ~ Signed [facility]04-10-2025 Consult note Author Sonali Haro [facility] Note Date/Time September 02, 2024 4:0 1pm [facility] Medical Records Department [address] [place] [address] Consultation - Surgical 09/01/24 1427 MR#: [id number] Acct: [id number] Name: CHELSEA MOODY Rep #:[id number] : 1940 83 From: Sonali TOMLINSON PCP: Dr. Kurt Lieberman MD Status:A DM IN Location: [place] [address] Assessment & Plan Assessment/Plan (1) CVA (cerebral [...] a 83 F who presented to the [facility] ER after an episode of [...] PCI, COPD/asthma, CKD, prior vascular surgical interventions. [facility] Medical History GERD (gastroesophageal reflux disease) Hypertension [...] % (Auto) 61.5, Lymph % (Auto) 24.9, Rawlins % (Auto) 9.1, Eos % (Auto) 3.2, [...] Clarity Clear, Urine pH 6.0, Ur Specific [place] 1.010, Urine Protein Negative, Urine Glucose (UA) [...] HDL Cholesterol 47, Cholesterol/HDL Ratio 4.38, Vitamin [id number] 09/01/24 06:26: POC Glucose 144 H Imaging Radiology Impression Brain CT 08/31/24 20:46 IMPRESSION: No acute intracranial abnormality. Chronic microvascular ischemia and involutional changes. Reading Location: [place] Brain MRI 08/31/24 23:41 IMPRESSION: 1. Punctate high RIGHT frontal acute infarct. No mass-effect or appreciable hemorrhagic conversion. 2. Additional description as above. Reading Location: [facility] Carotid Duplex 08/31/24 23:41 Interpretation Summary Severe (>70%) stenosis right extracranial internal carotid. Mild (<50%) stenosis left extracranial internal carotid. Patent and antegrade vertebrals bilaterally. Ordering Physician: Severiano Ibarra Performed By: Na Isaac RVT Charges/Coding Visit Charges Inpatient E&M: 30694 Init Hosp L2 09/02/24 0728 <Electronically signed by Sonali TOMLINSON> Cosigner Signature (if applicable): 09/02/24 1601 <Electronically signed by Ugo Rogel MD> CC: Dr. Kurt Lieberman MD~ Signed [facility] Work Phone: [phone]) 535-941604-10-2025 Consult note [facility] Medical Records Department [address] [place] [address] Consultation - Surgical 09/01/24 1427 MR#: [id number] Acct: [id number] Name: CHELSEA MOODY Rep #:[id number] : 1940 83 From: Sonali TOMLINSON PCP: Dr. Kurt Lieberman MD Status:A DM IN Location: [facility] YCS341- 1 Assessment & Plan Assessment/Plan (1) CVA [...] a 83 F who presented to the [facility] ER after an episode of [...] PCI, COPD/asthma, CKD, prior vascular surgical interventions. [facility] Medical History GERD (gastroesophageal reflux disease) Hypertension [...] % (Auto) 61.5, Lymph % (Auto) 24.9, Rawlins % (Auto) 9.1, Eos % (Auto) 3.2, [...] Clarity Clear, Urine pH 6.0, Ur Specific [place] 1.010, Urine Protein Negative, Urine Glucose (UA) [...] HDL Cholesterol 47, Cholesterol/HDL Ratio 4.38, Vitamin [id number] 09/01/24 06:26: POC Glucose 144 H Imaging Radiology Impression Brain CT 08/31/24 20:46 IMPRESSION: No acute intracranial abnormality. Chronic microvascular ischemia and involutional changes. Reading Location: [place] Brain MRI 08/31/24 23:41 IMPRESSION: 1. Punctate high RIGHT frontal acute infarct. No mass-effect or appreciable hemorrhagic conversion. 2. Additional description as above. Reading Location: [id number] Carotid Duplex 08/31/24 23:41 Interpretation Summary Severe (>70%) stenosis right extracranial internal carotid. Mild (<50%) stenosis left extracranial internal carotid. Patent and antegrade vertebrals bilaterally. Ordering Physician: Severiano Ibarra Performed By: Na Isaac RVT Charges/Coding Visit Charges Inpatient E&M: 18755 Init Hosp L2 09/02/24 0728 Cosigner Signature (if applicable): 09/02/24 4999 CC: Dr. Kurt Lieberman MD~ Signed [facility]04-09-2025 Progress note Author Darianachad Wise [facility] Note Date/Time September 01, 2024 7:59 pm [facility] Medical Records Department [address] [place] [address] Progress Note - Hospitalist 09/01/24 0814 MR#: [id number] Acct: [id number] Name: CHELSEA MOODY Rep #:[id number] : 1940 83 From: Dariana Wise DO PCP: Dr. Kurt Lieberman MD Status:A DM IN Location: [place] [address] Reason for Visit Reason for Visit: Dizziness and Highly Elevated Blood Pressure Subjective Subjective Mrs. Underwood is an 83-year-old white female who presents emergency department at [facility] on 08/31/2024 with a chief complaint [...] % (Auto) 61.5, Lymph % (Auto) 24.9, [place]lins % (Auto) 9.1, Eos % (Auto) 3.2, [...] Clarity Clear, Urine pH 6.0, Ur Specific [place] 1.010, Urine Protein Negative, Urine Glucose (UA) [...] HDL Cholesterol 47, Cholesterol/HDL Ratio 4.38, Vitamin [id number] 09/01/24 06:26: POC Glucose 144 H Radiography Diagnostic Testing: Radiology Impression Brain CT 08/31/24 20:46 IMPRESSION: No acute intracranial abnormality. Chronic microvascular ischemia and involutional changes. Reading Location: [facility] Physical Exam Const alert, oriented x3, no [...] ataxia on the left Coordination / Balance: sbpcrs-qx-xuqz test normal; Negative for aszj-fz-lzdd test normal Speech: speech normal Psych affect [...] order placed Charges/Coding Visit Charges Inpatient E&M: 68300 Subs Hosp L3 09/01/241958 <Electronically signed by Dariana Wise DO> Cosigner Signature (if applicable): CC: ~ Signed [facility] Work Phone: 1(638) 605-955204-09-2025 Progress note [facility] Medical Records Department [address] [place] [address] Progress Note - Hospitalist 09/01/24 0814 MR#: [id number] Acct: [id number] Name: CHELSEA MOODY Rep #:[id number] : 1940 83 From: Dariana Wise DO PCP: Dr. Kurt Lieberman MD Status:A DM IN Location: [place] [address] Reason for Visit Reason for Visit: Dizziness and Highly Elevated Blood Pressure Subjective Subjective Mrs. Underwood is an 83-year-old white female who presents emergency department at [facility] on 08/31/2024 with a chief complaint [...] % (Auto) 61.5, Lymph % (Auto) 24.9, [place] % (Auto) 9.1, Eos % (Auto) 3.2, [...] Clarity Clear, Urine pH 6.0, Ur Specific [place] 1.010, Urine Protein Negative, Urine Glucose (UA) [...] HDL Cholesterol 47, Cholesterol/HDL Ratio 4.38, Vitamin [id number] 09/01/24 06:26: POC Glucose 144 H Radiography Diagnostic Testing: Radiology Impression Brain CT 08/31/24 20:46 IMPRESSION: No acute intracranial abnormality. Chronic microvascular ischemia and involutional changes. [facility] Physical Exam Const alert, oriented x3, no [...] ataxia on the left Coordination / Balance: sprall-gd-tcxj test normal; Negative for uolv-xz-crsi test normal Speech: speech normal Psych affect [...] order placed Charges/Coding Visit Charges Inpatient E&M: 56873 Subs Hosp L3 09/01/241958 Cosigner Signature (if applicable): CC: ~ Signed [facility]04-09-2025 Consult note Author Monik Barker [facility] Note Date/Time September 01, 2024 4:21 pm [facility] Medical Records Department [address] [place] [address] Consultation - Neurology 09/01/24 1432 MR#: [id number] Acct: [id number] Name: CHELSEA MOODY Rep #:[id number] : 1940 83 From: Monik Barker MD PCP: Dr. Kurt Lieberman MD Status:A DM IN [facility] Assessment and Plan: Neuro Assessment/Plan [...] 40mg Smoking Cessation Diabetes Management long term care pharmacist blood pressure control should achieve <130/80 mmHg. BP managementshould aim to achieve senior living contorl in a reasonable amount of time, [...] on treatment and OA who presents to [facility] ER complaining of dizziness and highly [...] stroke before. Currently no dizziness or lightheadedness. [facility] Medical History GERD (gastroesophageal reflux disease) Hypertension [...] and with change in RN caregiver. Freq: [id number] Protocol: Activity Type Activity Date Activity User E-sign Co-sign Detail Recorded Client Recorded Date Recorded By Document 09/01/24 12:00 ML [id number] 09/01/24 12:25 ML 09/01/24 12:00 NIH Stroke [...] SA 5 5 EE EF WE WF Map Clerk 5 5 HF KE KF DF PF [...] % (Auto) 61.5, Lymph % (Auto) 24.9, Rawlins % (Auto) 9.1, Eos % (Auto) 3.2, [...] Clarity Clear, Urine pH 6.0, Ur Specific [place] 1.010, Urine Protein Negative, Urine Glucose (UA) [...] microvascular ischemia and involutional changes. Reading Location: [facility] Brain MRI 08/31/24 23:41 IMPRESSION: 1. Punctate high RIGHT frontal acute infarct. No mass-effect or appreciable hemorrhagic conversion. 2. Additional description as above. Reading Location: [facility] Carotid Duplex 08/31/24 23:41 Interpretation Summary Severe [...] applicable): CC: Dr. Kurt Lieberman MD~ Signed [facility] Work Phone: [phone]) 924-741304-09-2025 Evaluation note* Diagnosis Onset Date Resolution Status [...] TIA on medication deleted September 012024 3:48pm [facility] Work Phone: [phone]) [phone] Evaluation note* Diagnosis Onset Date Resolution Status [...] carotid artery acute September 17, 2024 10:53am [facility] Work Phone: [phone]) [phone] Evaluation note* Diagnosis Onset Date Resolution Status [...] 01, 2024 3:48pm Obesity (BMI 30-39.9) inactive Aug 3:48pm TIA on medication deleted September 012024 3:48pm Stenosis of right carotid artery acute September 17, 2024 10:53am Carotid artery disease acute Ma y 2024 12:53pm Stenosis of right carotid artery acute October 22, 2024 1 2:53pm [facility] Work Phone: [phone]) [phone] Evaluation note* Diagnosis Onset Date Resolution Status [...] 01, 2024 3:48pm Obesity (BMI 30-39.9) inactive Aug 3:48pm TIA on medication deleted September 012024 3:48pm Stenosis of right carotid artery acute September 17, 2024 10:53am Carotid artery disease acute Ma y 2024 12:53pm Difficulty swallowing acute October 22, 2024 12:53pm Stenosis of right carotid artery acute October 22, 2024 1 2:53pm Weakness acute October 22, 2024 12:53pm Acute hyponatremia acute October 222024 7:28pm Weakness acute October 22, 2024 7:28pm [facility] Work Phone: [phone]) [phone] Evaluation note* Diagnosis Onset Date Resolution Status [...] 2024 10:53am Carotid artery disease acute Ma y 2024 12:53pm Difficulty swallowing acute October 22, 2024 12:53pm Stenosis of right carotid artery acute October 22, 2024 1 2:53pm Weakness acute October 22, 2024 12:53pm Acute hyponatremia resolved October 222024 7:28pm Weakness resolved October 22, 2024 7:28pm [facility] Work Phone: [phone] Evaluation note* Diagnosis Onset Date Resolution Status [...] 2024 10:53am Carotid artery disease acute Ma y 2024 12:53pm Difficulty swallowing acute October 22, 2024 12:53pm Stenosis of right carotid artery acute October 22, 2024 1 2:53pm Weakness acute October 22, 2024 12:53pm Acute hyponatremia resolved October 222024 7:28pm Weakness resolved October 22, 2024 7:28pm JUJU (acute kidney injury) acute November 17, 2024 6:46pm [facility] Work Phone: [phone] 226-973304-09-2025 Radiology Diagnostic study note [facility] Imaging Services [address] [place] [address] CTA Head AND Neck W/ Contrast MR#: [id number] Acct: [id number] Name: CHELSEA MOODY Rep #: [id number] : 1940 F 83 From: Francisca Chapman MD PCP: Dr. Kurt Lieberman MD Status: A DM IN Study:CTA Head AND Neck W/ Contrast Date of E xam: 09/01/24 Exam# [id number] Ordering Dr: Eric Haro PROCEDURE: CTA HEAD [...] CCA: No significant atherosclerotic calcification Right ICA: Jfjicwvz-dy-yzkbnf atherosclerotic calcified and noncalcified plaque at the [...] RIGHT Vertebral: Unremarkable. LEFT Vertebral: Unremarkable. Anatomy: [place] anatomy is normal. Aneurysm or [...] occlusion, dissection or aneurysm Reading Location: [place] CC: DAVI Green; Dr. Kurt Lieberman MD ~ Tumbler Drier Operator: Signed [facility]04-09-2025 Consult note [facility] Medical Records Department [address] [place] [address] Consultation - Neurology 09/01/24 1432 MR#: [id number] Acct: [id number] Name: CHELSEA MOODY Rep #:[id number] : 1940 83 From: Monik Barker MD PCP: Dr. Kurt Lieberman MD Status:A DM IN Location: [place] [id number]- Assessment and Plan: Neuro Assessment/Plan CHELSEA MOODY [...] on treatment and OA who presents to [facility] ER complaining of dizziness and highly [...] stroke before. Currently no dizziness or lightheadedness. [facility] Medical History GERD (gastroesophageal reflux disease) Hypertension [...] and with change in RN caregiver. Freq: [id number] Protocol: Activity Type Activity Date Activity User E-sign Co-sign Detail Recorded Client Recorded Date Recorded By Document 09/01/24 12:00 ML [id number] 09/01/24 12:25 ML 09/01/24 12:00 NIH Stroke [...] SA 5 5 EE EF WE WF Map Clerk 5 5 HF KE KF DF PF [...] % (Auto) 61.5, Lymph % (Auto) 24.9, Rawlins % (Auto) 9.1, Eos % (Auto) 3.2, [...] Clarity Clear, Urine pH 6.0, Ur Specific Penitas 1.010, Urine Protein Negative, Urine Glucose (UA) [...] microvascular ischemia and involutional changes. [facility] Brain MRI 08/31/24 23:41 IMPRESSION: 1. Punctate high RIGHT frontal acute infarct. No mass-effect or appreciable hemorrhagic conversion. 2. Additional description as above. Reading Location: [id number] Carotid Duplex 08/31/24 23:41 Interpretation Summary Severe [...] applicable): CC: Dr. Kurt Lieberman MD~ Signed [facility]04-09-2025 History and physical note Author Severiano Gordillo [facility] Note Date/Time September 01, 2024 6:12 am [facility] Medical Records Department [address] [place] [address] H&P Exam - Hospitalist 08/31/24 2305 MR#: [id number] Acct: [id number] Name: CHELSEA MOODY Rep #:[id number] : 1940 83 From: Severiano Godfrey DO PCP: Dr. Kurt Lieberman MD Status:A DM JAMES Location: [place] [address] HPI - General General Date of Service: 08/31/24 Chief Complaint: Dizziness and Highly Elevated Blood Pressure. HPI Narrative CHELSEA MOODY, is a 83 F with a past medical history of essential hypertension; poorly-controlled on metoprolol, obesity; BMI of 39.5 this admission, DM-2; of unknown control on insulin glargine 8U at bedtime, GERD; currently not on treatment and OA who [facility] [facility] complaining of dizziness and highly [...] expected to be less than 2 midnights. [facility] Medical History GERD (gastroesophageal reflux disease) Hypertension [...] % (Auto) 61.5, Lymph % (Auto) 24.9, Rawlins % (Auto) 9.1, Eos % (Auto) 3.2, [...] Clarity Clear, Urine pH 6.0, Ur Specific Penitas 1.010, Urine Protein Negative, Urine Glucose (UA) [...] complication status: with neurologic complications Diabetes mellitus senior living insulin use: with senior living use Qualified Code(s): E11.49 - Type 2 [...] 70 minutes. Charges/Coding Visit Charges OBSV E&M: 10534 Observ/hosp same date L2 09/01/24611 <Electronically signed by Severiano Ibarra DO> Cosigner Signature (if applicable): CC: Dr. Severiano Ibarra DO; Dr. Kurt Lieberman MD~ Signed [facility] Work Phone: 1(659) 354-212604-09-2025 History and physical note [facility] Medical Records Department [address] [place] [address] H&P Exam - Hospitalist 08/31/24 2308 MR#: [id number] Acct: [id number] Name: CHELSEA MOODY Rep #:[id number] : 1940 83 From: Severiano Godfrey DO PCP: Dr. Kurt Lieberman MD Status:A DM JAMES Location: [place] [address] HPI - General General Date of Service: 08/31/24 Chief Complaint: Dizziness and Highly Elevated Blood Pressure. HPI Narrative CHELSEA MOODY, is a 83 F with a past medical history of essential hypertension; poorly-controlled on metoprolol, obesity; BMI of 39.5 this admission, DM-2; of unknown control on insulin glargine 8U at bedtime, GERD; currently not on treatment and OA who presents to [facility] ER complaining of dizziness and highly [...] expected to be less than 2 midnights. [facility] Medical History GERD (gastroesophageal reflux disease) Hypertension [...] % (Auto) 61.5, Lymph % (Auto) 24.9, Rawlins % (Auto) 9.1, Eos % (Auto) 3.2, [...] Clarity Clear, Urine pH 6.0, Ur Specific Penitas 1.010, Urine Protein Negative, Urine Glucose (UA) [...] ischemia and involutional changes. Reading Location: [place] Assessment & Plan Assessment/Plan (1) Hypertensive emergency: (2) Dizziness: (3) Generalized weakness: (4) Slurred speech: (5) TIA on medication: (6) Poorly-controlled hypertension: (7) Obesity (BMI 30-39.9): (8) Diabetes mellitus, type 2: QUALIFIERS: Diabetes mellitus complication detail: with other neurological complication Diabetes mellitus complication status: with neurologic complications Diabetes mellitus senior living insulin use: with long term care pharmacist use Qualified Code(s): E11.49 - Type 2 diabetes mellitus with other diabetic neurological complication; Z79.4 - long term care pharmacist (current) use of insulin PLAN: Plan 1. [...] 70 minutes. Charges/Coding Visit Charges OBSV E&M: 29197 Observ/hosp same date L2 09/01/24 0612 Cosigner Signature (if applicable): CC: Dr. Severiano Ibarra DO; Dr. Kurt Lieberman MD~ Signed [facility]04-09-2025 Discharge summary Author Murphy Desiree [facility] Note Date/Time August 31, 2024 11:1 1pm [facility] Medical Records Department [address] [place] [address] Emergency Department Summary 08/31/24 MR#: [id number] Acct: [id number] Name: CHELSEA MOODY Rep #:[id number] : 1940 83 From: Murphy Bobo PCP: Dr. Kurt Lieberman MD Status:R EG ER Location: ED HPI History of Present Illness Chief Complaint: Dizziness [facility] Medical History (Updated 08/31/24 @ [...] reviewed, Vital signs reviewed Constitutional: please see [facility] HENT: MMM Eyes: Pupils equal round and [...] History obtained from others: none Consults: none [facility] Narrative: Patient was initially hypertensive [...] Dispo: Admit This note was generated with Home[employer] dictation software. It may contain incorrectwords, spelling, [...] % (Auto) 61.5 Lymph % (Auto) 24.9 Rawlins % (Auto) 9.1 Eos % (Auto) 3.2 [...] microvascular ischemia and involutional changes. Reading Location: [facility] Discharge Plan Triage Chief Complaint: Dizziness ED Provider: Murphy Ramírez Dx/Rx/DC Orders Prescriptions: No Action metoprolol succinate 50 mg tablet extended release 24 hr 100 mg PO DAILY insulin glargine [Lantus Solostar U-100 Insulin] 100 unit/mL (3 mL) insulin pen 8 unit subcut QHS Primary Care Provider: Kurt Lieberman Referrals: Kurt Lieberman MD [Primary Care Provider] - Print Language: Ghanaian What to do if you have Problems For any increased pain, shortness of breath, bleeding, nausea or vomiting, chestpain, or any unexpected problems, contact your Primary Care Provider. Call [facility] ([phone]) or report to the closest Emergency Room. Call 911 if necessary. 08/31/24 2311 <Electronically signed by Murphy Ramírez DO> Cosigner Signature (if applicable): CC: Dr. Kurt Lieberman MD ~ Signed [facility] Work Phone: 1(434) 482-740604-08-2025 Discharge summary [facility] Medical Records Department [address] [place] [address] Emergency Department Summary 08/31/24 MR#: [id number] Acct: [id number] Name: CHELSEA MOODY Rep #:[id number] : 1940 83 From: Murphy Bobo PCP: Dr. Kurt Lieberman MD Status:R ER Location: ED HPI History of Present Illness Chief Complaint: Dizziness [facility] Medical History (Updated 08/31/24 @ [...] History obtained from others: none Consults: none [facility] Narrative: Patient was initially hypertensive [...] Dispo: Admit This note was generated with Home[employer]way dictation software. It may contain incorrectwords, spelling, [...] % (Auto) 61.5 Lymph % (Auto) 24.9 Rawlins % (Auto) 9.1 Eos % (Auto) 3.2 [...] microvascular ischemia and involutional changes. Reading [facility] Discharge Plan Triage Chief Complaint: Dizziness ED Provider: Murphy Ramírez Dx/Rx/DC Orders Prescriptions: No Action metoprolol succinate 50 mg tablet extended release 24 hr 100 mg PO DAILY insulin glargine [Lantus Solostar U-100 Insulin] 100 unit/mL (3 mL) insulin pen 8 unit subcut QHS Primary Care Provider: Kurt Lieberman Referrals: Kurt Lieberman MD [Primary Care Provider] - Print Language: Ghanaian What to do if you have Problems For any increased pain, shortness of breath, bleeding, nausea or vomiting, chestpain, or any unexpected problems, contact your Primary Care Provider. Call [facility] ([phone]) or report tothe closest Emergency Room. Call 911 if necessary. 08/31/24 2311 Cosigner Signature (if applicable): CC: Dr. Kurt Lieberman MD ~ Signed [facility]04-08-2025 Radiology Diagnostic study note [facility] Imaging Services [address] [place] [address] Brain/Head without Contrast MR#: [id number] Acct: [id number] Name: CHELSEA MOODY Rep #: [id number] : 1940 F 83 From: Francisca Chapman MD PCP: Dr. Kurt Lieberman MD Status: R ER Study:Brain/Head without Contrast Date of Exa m: 08/31/24 Exam# [id number] Ordering Dr: Anna Ramírez DO PROCEDURE: BRAIN/HEAD [...] ischemia and involutional changes. Reading Location: [place] CC: Dr. Kurt Lieberman MD; Dr. Murphy Ramírez DO ~ Tumbler Drier Operator: Signed [facility]04-08-2025 Discharge summary Author Murphy Ramírez [facility] Note Date/Time August 31, 2024 11:1 1pm [facility] Medical Records Department [address] [place] [address] Emergency Department Summary 08/31/24 MR#: [id number] Acct: [id number] Name: CHELSEA MOODY Rep #:[id number] : 1940 83 From: Murphy Bobo PCP: Dr. Kurt Lieberman MD Status:R EG ER Location: ED HPI History of Present Illness Chief Complaint: Dizziness [facility] Medical History (Updated 08/31/24 @ [...] Mean 114 Pulse Ox Oxygen Delivery Method [facility] Narrative Medical decision making narrative: HISTORY OF [...] reviewed, Vital signs reviewed Constitutional: please see [facility] HENT: MMM Eyes: Pupils equal round and [...] History obtained from others: none Consults: none [facility] Narrative: Patient was initially hypertensive [...] Dispo: Admit This note was generated with Home[employer]way dictation software. It may contain incorrectwords, spelling, [...] % (Auto) 61.5 Lymph % (Auto) 24.9 Rawlins % (Auto) 9.1 Eos % (Auto) 3.2 [...] microvascular ischemia and involutional changes. Reading Location: [facility] Discharge Plan Triage Chief Complaint: Dizziness ED Provider: Murphy Ramírez Dx/Rx/DC Orders Prescriptions: No Action metoprolol succinate 50 mg tablet extended release 24 hr 100 mg PO DAILY insulin glargine [Lantus Solostar U-100 Insulin] 100 unit/mL (3 mL) insulin pen 8 unit subcut [facility] Primary Care Provider: Kurt Lieberman Referrals: Kurt Lieberman MD [Primary Care Provider] - Print Language: Ghanaian What to do if you have Problems For any increased pain, shortness of breath, bleeding, nausea or vomiting, chestpain, or any unexpected problems, contact your Primary Care Provider. Call [facility] ([phone]) or report to the closest Emergency Room. Call 911 if necessary. 08/31/24 5438 <Electronically signed by Murphy Ramírez DO> Cosigner Signature (if applicable): CC: Dr. Kurt Lieberman MD ~ Signed [facility] Work Phone: 1(563) 535-355006-28-2024 NoteHNO ID: [id number] Author: JOY GUDINO APRN.AVIVA Service: ? Author Type: Nurse Practitioner Type: Progress Notes Filed: 11/21/2023 10:02 Note Text: FOLLOW UP VISIT NAME: [facility] NO.: [id number] DATE OF SERVICE: 11/21/2023 : 1940 REFERRING [...] months or sooner if needed. Joy Gudino APRN.CNPUniversity [facility]als [facility]06-28-2024 History of Present illness Narrative* Joy Gudino APRN.AVIVA - 11/21/2023 9:54 AM EDT FOLLOW UP VISIT NAME: [facility] NO.: [id number] DATE OF SERVICE: 11/21/2023 : 1940 REFERRING [...] months or sooner if needed. Joy Gudino APRN.ASSISTANT CREDIT MANAGER [facility] Nurse Note* Kaylin Dunham LPN - 11/21/2023 [...] Dunham LPN November 21, 2023 9:50 AM [facility]06-28-20[facility] Nurse Note* Kaylin Dunham LPN - 11/21/2023 [...] 21, 2023 9:50 AM documented in this encounterThe [facility]06-21-2024 History of Present illness Narrative* Chalo Acosta MD - 11/14/2023 6:16 PM EDT [...] entered by the nurse and reviewed by fl Nursing Notes: Jessica Damian RN 11/14/2023 3:30 PM Signed REVIEW [...] was patient's last Mammogram screening? Last Colonoscopy: Jessica Damian RN PHYSICAL EXAMINATION: General: The patient [...] staff for suture removal in 1 week.. Chalo Acosta MD Pathology returned as: FINAL DIAGNOSIS A. Skin, right upper lip, excision: - Invasive well-differentiated squamous cell carcinoma, see comment. Diagnosis Comment A. The lesion appears narrowly excised within the plans of sections available for examination. Gross Description I am comfortable with follow up but feel it was completely excised * Jessica Damian RN - 11/14/2023 3:34 PM EDT [...] Plan of Care Visit completed when applicable. Jessica Damian RN documented in this encounterThe [facility]06-21-2024 Instructions* Patient Instructions* Jessica Damian RN - 11/14/2023 4:01 PM EDT The following instructions are important for you related to your office visit today with the [facility] General Surgeons. Instructions After SKIN EXCISION-SUTURES [...] you should contact our office immediately @ [phone] and ask to be transferred to the General Surgery department. documented in this encounterThe [facility]06-21-2024 Nurse Note* Jessica Damian RN - 11/14/2023 3:29 PM EDT [...] was patient's last Mammogram screening? Last Colonoscopy: Jessica Damian RN [facility]-21-20[facility] Nurse Note* Jessica Damian RN - 11/14/2023 3:29 PM EDT [...] was patient's last Mammogram screening? Last Colonoscopy: Jessica Damian RN documented in this encounterThe [facility] SystemDischar summary Author Clay Resendez [facility] Note Date/Time October 30, 2024 12:22 am [facility] Medical Records Department [address] [place] [address] Emergency Department Summary 10/30/24 MR#: [id number] Acct: [id number] Name: CHELSEA MOODY Rep #:[id number] : 1940 83 From: Clay Resendez MD PCP: Dr. Angela High MD Status:REG E R Location: ED HPI History of Present Illness Chief Complaint: Wound Check Informant: patient and family Narrative Narrative: 83-year-old female states she accidentally injured her right lower leg about 8 hours ago, was the corner of a car door as it was closing, grazed her leg, she did not have a major injury, was pretty minor but it has been bleeding and they have had difficulty getting it to stop. She was just recently admitted to the hospital for stroke and discharged on aspirin and clopidogrel. She denies any systemic symptoms of anemia or fevers. [facility] Medical History Wears glasses Wears [...] DIABETES #60 t abs 09/03/24 10/21/24 Rx amlodipine 5 mg tablet 5 mg PO BID 10/22/24 5 History omeprazole 40 mg capsule,delayed 40 mg PO QDAY 5 10/22/24 History release losartan 50 mg tablet 50 mg PO DAILY 30 days #30 t abs 10/24/24 Unknown Rx Allergy/AdvReac Type Severity Reaction Status Date / Time hydrochlorothiazide AdvReac Severe hyponatremi Verified 10/29/24 23:24 a Family History (Updated 10/22/24 @ 20:[address] Axel Lockwood MD) Other Diabetes Surgical History History of cholecystectomy Social History Smoking Status: Never smoker ROS ROS ED Constitutional Constitutional ED: Denies chills, fatigue or fever(s) Cardiovascular Cardiovascular: Reports leg edema; Denies lightheadedness or syncope Musculoskeletal Musculoskeletal: Denies extremity pain Integumentary Reports as per HPI, wounds and other Details: Red/purplish skin around wound right lower leg Neurologic Neurologic: Denies headache(s) EXAM Physical Exam Const Vital Signs: 10/29/24 23:24 Temperature 97 F L Temperature Source Temporal Pulse Rate 101 H Respiratory Rate 18 Blood Pressure 203/55 H Blood Pressure Mean 104 Pulse Ox 98 Positive well nourished and well developed General Appearance ED: well developed HEENT normocephalic and atraumatic Resp normal respiratory effort Extremity full ROM Extremity Narrative: There is a superficial skin tear on the right mid thorpe, and the entire lower legsurrounding this is ecchymotic and nontender. It is nonblanching ecchymosis/purpura from the tibial tuberosity almost down to the ankle. There is no sign of infection. There is minimal oozing active bleeding, no other discharge. No tissue loss. All compartments are soft and nondistended. Full range of motion of the ankle and the knee without difficulty or limitation. Intact 2+/4 dorsalis pedis pulse. Neuro oriented x3 and CN's II-XII intact bilaterally Psych mental status grossly normal Skin Skin Narrative: skin tear right mid-thorpe; no lacerations MDM MDM MDM Narrative Medical decision making narrative: Patient and family worried about this being infected. She does not have any pain and there is no tenderness or signs of infection. All of this redness is blood/hematoma/ecchymosis. I do not think she needs to have blood counts obtained to check for blood loss, she does not have any symptoms of that, and although she does have a lot of ecchymosis it does not look like she has lost grams of hemoglobin on exam. Nurses cleansed and dressed with Surgifoam, bacitracin, and a dressing with a little bit of pressure. Neurovascular intact distally afterwards, she has the rest of the Surgifoam to use as an outpatient, and we discussed reasons to return. Discharge Plan Triage Chief Complaint: Wound Check ED Provider: Clay Resendez Dx/Rx/DC Orders Clinical Impression: Noninfected skin tear of right leg, Hematoma of right lower leg Instructions: ED Hematoma, ED Skin Tear (Skin Avulsion) Prescriptions: No Action amlodipine 5 mg tablet 5 mg PO [...] 10 unit subcut QHS Qty: 15 0RF losartan 50 mg Tablet 50 mg PO DAILY 30 Days Qty: 30 2RF Primary Care Provider: Angela High Referrals: Angela High MD [Primary Care Provider] - As Needed Print Language: Ghanaian Disposition Disposition: Home, Self Care What to do if you have Problems For any increased pain, shortness of breath, bleeding, nausea or vomiting, chestpain, or any unexpected problems, contact your Primary Care Provider. Call [facility] ([phone]) or report to the closest Emergency Room. Call 911 if necessary. 10/30/24 0022 <Electronically signed by Clay Resendez MD> Cosigner Signature (if applicable): CC: Dr. Angela High MD ~ Signed [facility] Work Phone: evaluation note* Diagnosis Squamous cell carcinoma of face- Primary Squamous cell carcinoma of skin of other and unspecified parts of face Lip lesion Diseases of lips documented in this encounter [facility] note* Diagnosis Lip lesion- Primary Diseases of lips documented in this encounter [facility] note* Diagnosis Pain in both knees, unspecified chronicity- Primary documented in this encounter [facility] note* Diagnosis Onset Date Resolution Status Admit Date Diabetes mellitus, type 2 acute August 31, 2024 11:32pm Dizziness acute August 31 11:32pm Generalized weakness acute Apri l 2024 11:32pm Hypertensive emergency acute Ap ril 2024 11:32pm Obesity (BMI 30-39.9) acute Aug 11:32pm Poorly-controlled hypertension acute August 31, 2024 11:32pm Slurred speech acute August 31, 2024 11:32pm TIA on medication acute August 312024 11:32pm [facility] Work Phone: [facility] note* Diagnosis Hospital discharge follow-up- Primary Other follow-up examination Hypertension, unspecified type Type 2 diabetes mellitus without complication, without long-term current use of insulin ([facility]) Class 2 severe obesity with serious comorbidity and body mass index (BMI) of 35.0 to 35.9 in adult, unspecified obesity type (HCC) documented in this encounter [facility] note* Diagnosis Type 2 diabetes mellitus without complication, without long-term current use of insulin (HCC) documented in this encounter [facility] note* Diagnosis Type 2 diabetes mellitus without complication, without long-term current use of insulin (HCC) Essential (primary) hypertension Unspecified essential hypertension Tremor, unspecified Difficulty in walking, not elsewhere classified Screening for depression Encounter for screening examination for other mental health and behavioral disorders Cerebral infarction due to unspecified occlusion or stenosis of unspecified cerebral artery (HCC) documented in this encounter [facility] note* Diagnosis Gastroesophageal reflux disease without esophagitis- Primary Esophageal reflux [facility] Diagnosis Hyponatremia- Primary Hyposmolality and/or hyponatremia documented in this encounter [facility] note* Diagnosis Gagging episode- Primary Other diseases of pharynx, not elsewhere classified Choking, subsequent encounter Loss of appetite Anorexia Weight loss Loss of weight Hallucinations Primary hypertension Unspecified essential hypertension Muscle weakness (generalized) Hyponatremia Hyposmolality and/or hyponatremia History of common carotid artery stent placement documented in this encounter [facility] and [facility] Author Imelda Marsh [facility] Note Date/Time November 17, 2024 6:54 pm [facility] Medical Records Department [address] [place] [address] H&P Exam - Hospitalist 11/17/24 1846 MR#: [id number] Acct: [id number] Name: CHELSEA MOODY Rep #:[id number] : 1940 83 From: Imelda Marsh MD PCP: Dr. Angela High MD Status:REG E R Location: ED HPI - General General Date of Admission: 11/17/24 Date of Service: 11/17/24 Chief Complaint: Gagging, dry heaves, diarrhea HPI Narrative CHELSEA MOODY, is a 83-year-old female with a history of carotid artery disease status post stenting by Dr. Rogel September 2024, hypertension, diabetes, CVA, recentadmission for hyponatremia presented [facility] ED 11/17/2024 fornausea and vomiting. Symptoms have been significant for the past 3 to 4 days and she notes a lot of gagging which then causes vomiting and dry heaves. Reportedly outpatient labs with PCP showed creatinine of 2.82 which is worse than her baseline so her daughter brought her into the hospital. She also has been having generalized weakness. In the ED temperature 97.8, heart rate of 86 with blood pressure 156/55, respiratory rate 16 and pulse ox 99% on room air. CBC with white blood cell count within normal limits and hemoglobin of 10.6, similar to last month. BMP with bicarb 14.7, anion gap of 19 and creatinine 2.78 up from 0.[address] abdomen pelvis with no acute process. UA with minimal leuk esterase, 2+ bacteria but also squamous cells and no nitrate. Given patient's nausea and vomiting with JU[facility] hospitalist contacted foradmission. Patient evaluated at bedside. She reports that she has been feelingweak and having dry heaves over the past week or 2 with frequent gagging, she also tends to stay constipated however over the past week she has been having loose mustardy stool, no abdominal pain, has had poor p.o. intake due to the gagging and dry heaves. Denies any fevers, has had some decreased urination butno burning on urination. No other new or acute complaints. [facility] Medical History Wears glasses Wears dentures Bruising Insulin dependent diabetes mellitus High cholesterol Stroke/cerebrovascular accident History of echocardiogram History of edema CVA (cerebral vascular accident) Diabetes mellitus, type 2 Obesity (BMI 30-39.9) GERD (gastroesophageal reflux disease) Hypertension Diabetes Home Medications ?Medication ?Instructions ?Recorded ?Last Taken ?Type aspirin 81 mg chewable tablet 81 mg PO BREAKFAST SUPPL EMENT #0 09/03/24 11/17/24 Rx tabs atorvastatin 40 mg tablet 40 mg PO QHS CHOLESTEROL #30 tabs 09/03/24 10/21/24 Rx clopidogrel 75 mg tablet 75 mg PO DAILY BLOOD THINNER #30 09/03/24 11/17/24 Rx tabs insulin glargine 100 unit/mL (3 10 unit (0.1 mL) subcu t QHS 09/03/24 10/21/24 Rx mL) subcutaneous pen (Lantus DIABETES #15 mL Solostar U-100 Insulin) metformin 500 mg tablet 500 mg PO BID DIABETES #60 t abs 09/03/24 11/17/24 Rx amlodipine 5 mg tablet 5 mg PO BID 10/22/24 5 History omeprazole 40 mg capsule,delayed 40 mg PO DAILY 11/17/24 History release losartan 50 mg tablet 50 mg PO DAILY 30 days #30 t abs 10/24/24 11/17/24 Rx Allergy/AdvReac Type Severity Reaction Status Date / Time hydrochlorothiazide AdvReac Severe hyponatremi Verified 11/17/24 12:53 a Family History Other Diabetes Surgical History History of cholecystectomy Social History Smoking Status: Never smoker ROS ROS Narrative General: Denies fever/chills HENT: Denies headache, denies stuffy nose, denies sore throat EYES: Denies changes in vision Resp: Denies cough, denies shortness of breath Cardiac: Denies chest pain GI: Denies abdominal pain, having loose yellow mustardy stool, dry heaves and gagging : Some decreased urination Extremity: Denies swelling MSK: Generalized weakness Neuro: Denies any numbness/tingling Heme: Denies any bleeding or bruising Skin: Denies rashes Psychiatric: No complaints voiced Vital Signs Vital Signs Vital Signs: 11/17/24 12:53 11/17/24 14:53 11/17/24 15:36 Temperature 97.8 F Temperature Source Oral Pulse Rate 86 82 85 Respiratory Rate 16 18 22 H Blood Pressure 156/55 H 154/59 H Blood Pressure Mean 88 90 Pulse Ox 99 100 100 Oxygen Delivery Method Room Air Room Air 11/17/24 15:40 11/17/24 15:45 11/17/24 16:00 Temperature Temperature Source Pulse Rate 86 85 83 Respiratory Rate 17 22 H 18 Blood Pressure 154/59 H Blood Pressure Mean 82 Pulse Ox 100 100 100 Oxygen Delivery Method Room Air Room Air 11/17/24 16:15 11/17/24 18:00 Temperature Temperature Source Pulse Rate 87 85 Respiratory Rate 17 14 Blood Pressure 160/55 H Blood Pressure Mean 90 Pulse Ox 96 97 Oxygen Delivery Method Room Air Weight Weight: 75.3 kg Body Mass Index (BMI) 37.2 Physical Exam Narrative General: Alert, oriented, no apparent distress HEENT: Atraumatic, normocephalic Eyes: Anicteric, normal conjunctiva, extraocular movements grossly intact Neck: Supple Respiratory: Clear to auscultation bilaterally, normal respiratory effort Cardiovascular: Regular rate and rhythm GI: Soft, nontender, nondistended Extremities: No pitting edema Musculoskeletal: Moving all extremities Neuro: No overt focal neurological deficits Skin: No rashes appreciated, some scattered bruising Psych: Cooperative Results Lab / Micro Data 11/17/24 14:20 11/17/24 17:37 Labs: Laboratory Results - last 24 hr 11/17/24 14:20: WBC 10.9, RBC 3.54 L, Hgb 10.6 L, Hct 32.9 L, MCV 92.9, MCH 29.9, MCHC 32.2, RDW Std Deviation 50.4 H, RDW Coeff of Óscar 14.8 H, Plt Count 357, MPV 11.0, Immature Gran % (Auto) 0.600, Neut % (Auto) 66.1, Lymph % (Auto) 20.9, Rawlins % (Auto) 11.4 H, Eos % (Auto) 0.4, Baso % (Auto) 0.6, Absolute Neuts (auto) 7.2, Absolute Lymphs (auto) 2.28, Nucleated RBC % 0, Sodium Cancelled, Potassium Cancelled, Chloride Cancelled, Carbon Dioxide Cancelled, Anion Gap Cancelled, BUN Cancelled, Creatinine Cancelled, Estim Creat Clear Calc Cancelled, Est GFR (MDRD) Non-Af Cancelled, BUN/Creatinine Ratio Cancelled, Glucose Cancelled, Calcium Cancelled, Total Bilirubin Cancelled, AST Cancelled, ALT Cancelled, Alkaline Phosphatase Cancelled, Total Protein Cancelled, Albumin Cancelled, Globulin Cancelled, Albumin/Globulin Ratio Cancelled, Lipase Cancelled 11/17/24 16:45: Urine Color Straw, Urine Clarity Sl. Cloudy, Urine pH 6.0, Ur Specific [place] 1.010, Urine Protein 30 H, Urine Glucose (UA) Normal, Urine Ketones Negative, Urine Occult Blood Negative, Urine Nitrite Negative, Urine Bilirubin Negative, Urine Urobilinogen Normal, Ur Leukocyte Esterase 25 H, UrineRBC 0-5 SEEN, Urine WBC 5-10 SEEN, Ur Squamous Epith Cells 5-10 SEEN, Urine Bacteria 2+, Urine Mucus 0 SEEN 11/17/24 17:37: Sodium 133, Potassium 3.6, Chloride 99, Carbon Dioxide 14.7 L, Anion Gap 19 H, BUN 19, Creatinine 2.78 H, Estim Creat Clear Calc 13.66 L, Est GFR (MDRD) Non-Af 16 L, BUN/Creatinine Ratio 6.9 L, Glucose 120 H, Calcium 7.8, Total Bilirubin 0.35, AST 21, ALT 23, Alkaline Phosphatase 107 H, Total Protein 6.4, Albumin 3.5, Globulin 2.9, Albumin/Globulin Ratio 1.2, Lipase 57 Imaging Radiology Impression Abdomen/Pelvis CT 11/17/24 16:55 IMPRESSION: No acute abdominopelvic finding on noncontrast CT. Reading Location: [facility] Assessment & Plan Assessment/Plan (1) JUJU (acute kidney injury): PLAN: Plan # JUJU - Recent creatinine of 2.82 through her PCPs office, creatinine here earlier this month 0.90 -UA with squamous cells, 2+ bacteria but minimal leuk esterase and no nitrate, not overtly convincing for infectious etiology -Suspect patient's nausea and vomiting with poor p.o. intake is the underlying etiology of her JUJU though interestingly BUN reported as within normal limits -Will check urine studies - Avoid nephrotoxic agents -Will monitor daily weights and I's and O's - IV fluids - Daily BMP - If no improvement may need further workup and/or nephrology consultation - Hold home losartan - Given increased With decrease bicarb will check lactic acid # Nausea/vomiting/diarrhea -CT abdomen pelvis no acute process - IV fluids -Supportive care - Cardiac diet, can scale back if needed - Given the diarrhea will check C. difficile and enteric panels # Recent carotid artery stenting - September [address] Rogel - Continue patient's home medications # History of CVA per documentation -Continue home medications #Type 2 diabetes mellitus -Glucose checks and sliding scale insulin -Given patient's poor p.o. intake will decrease long-acting insulin, hold metformin #Hypertension - Continue patient's home amlodipine #GERD -Continue PPI #DVT ppx: hep subq Imelda Marsh MD Charges/Coding Visit Charges Inpatient E&M: 16300 Init Hosp L2 11/17/24 1854 <Electronically signed by Imelda Marsh MD> Cosigner Signature (if applicable): CC: Dr. Angela High MD; Dr. Imelda Marsh MD~ Signed [facility] Work Phone: Reason for referral (narrative)* Diagnostic Procedure Only (Routine) - Authorized Specialty Diagnoses / Procedures Referred By Contac t Referred To Contact XR IMAGING Diagnoses Pain in both knees, unspecified chronicity Procedures XR LEG FRONTAL HIP TO ANKLE MECHANICAL AXIS BONE LENGTH STUDIES Fabio Hernandez PA-C [address] [address] [place] [id number] Referral ID Status Reason Start Date Expiration Date Visits Requested Visits Authorized [id number] Authorized Auto-Generat ed Referral 06/01/2024 07/01/2025 1 1 * Diagnostic Procedure Only (Routine) - Authorized Specialty Diagnoses / Procedures Referred By Leti t Referred To Contact XR IMAGING Diagnoses Pain in both knees, unspecified chronicity Procedures XR KNEE GENERAL 4V AP BOTH/PA BOTH/LAT/MERC BILATERAL RADIOLOGIC EXAM KNEE COMPLETE 4/MORE VIEWS Fabio Hernandez PA-C [address] [address] [place] [id number] Referral ID Status Reason Start Date Expiration Date Visits Requested Visits Authorized [id number] Authorized Auto-Generat ed Referral 06/01/2024 07/01/2025 1 1 [facility]ative[facility]No reason for referral information availableWLake County [facility] Work Phone: Summary Purpose Family History Relationship Condition Age at Onset Recorded Date/T cyndi Not Specified Diabetes mellitus Unknown Advance Directives Advance Directive Response Recorded Date/ Time Living Will Yes August 31, 2024 8:28pm Do you have a Healthcare Power of Folding Rules Printing Machine Operator? Yes August 31, 2024 8:28pm Name of Medical Power of Folding Rules Printing Machine Operator Daughter August 31, 2024 8:28pm Advance Directive Response Recorded Date/ Time Living Will Yes September 01, 2024 12:14am Do you have a Healthcare Power of Folding Rules Printing Machine Operator? Yes September 01, 2024 12:14am Name of Medical Power of Folding [employer] Printing Machine Operator Daughter September 01, 2024 12:14am Advance Directive Response Recorded Date/ Time Living Will Yes September 01, 2024 12:14am Do you have a Healthcare Power of Folding Rules Printing Machine Operator? Yes September 01, 2024 12:14am Name of Medical Power of Folding Rules Printing Machine Operator Daughter September 01, 2024 12:14am Do you have a Healthcare Power of Folding Rules Printing Machine Operator? No October 05, 2024 12:00pm Advance Directive Response Recorded Date/ Time Living Will Yes September 01, 2024 12:14am Do you have a Healthcare Power of Folding Rules Printing Machine Operator? Yes September 01, 2024 12:14am Name of Medical Power of Folding Rules Printing Machine Operator Daughter September 01, 2024 12:14am Do you have a Healthcare Power of Folding Rules Printing Machine Operator? No October 05, 2024 12:00pm Do you have a Healthcare Power of Folding Rules Printing Machine Operator? Yes October 22, 2024 5:30pm Name of Medical Power of Folding Rules Printing Machine Operator daughter- barry October 22, 2024 5:30pm Advance Directive Response Recorded Date/ Time Living Will Yes September 01, 2024 12:14am Do you have a Healthcare Power of Folding Rules Printing Machine Operator? Yes September 01, 2024 12:14am Name of Medical Power of Folding Rules Printing Machine Operator Daughter September 01, 2024 12:14am Do you have a Healthcare Power of Folding Rules Printing Machine Operator? No October 05, 2024 12:00pm Do you have a Healthcare Power of Folding Rules Printing Machine Operator? Yes October 22, 2024 8:17pm Name of Medical Power of Folding Rules Printing Machine Operator Barry Holt October 22, 2024 8:17pm Advance Directive Response Recorded Date/ Time Living Will Yes September 01, 2024 12:14am Do you have a Healthcare Power of Folding Rules Printing Machine Operator? Yes September 01, 2024 12:14am Name of Medical Power of Folding Rules Printing Machine Operator Daughter September 01, 2024 12:14am Do you have a Healthcare Power of Folding Rules Printing Machine Operator? No October 05, 2024 12:00pm Do you have a Healthcare Power of Folding Rules Printing Machine Operator? Yes October 22, 2024 8:17pm Name of Medical Power of Folding Rules Printing Machine Operator Barry Holt October 22, 2024 8:17pm Do you have a Healthcare Power of Folding Rules Printing Machine Operator? Yes October 29, 2024 11:24pm Advance Directive Response Recorded Date/ Time Living Will Yes September 01, 2024 12:14am Do you have a Healthcare Power of Folding Rules Printing Machine Operator? Yes September 01, 2024 12:14am Name of Medical Power of Folding Rules Printing Machine Operator Daughter September 01, 2024 12:14am Do you have a Healthcare Power of Folding Rules Printing Machine Operator? No October 05, 2024 12:00pm Do you have a Healthcare Power of Folding Rules Printing Machine Operator? Yes October 22, 2024 8:17pm Name of Medical Power of Folding Rules Printing Machine Operator Barry Holt October 22, 2024 8:17pm Do you have a Healthcare Power of Folding Rules Printing Machine Operator? Yes October 29, 2024 11:24pm Do you have a Healthcare Power of Folding Rules Printing Machine Operator? Yes November 17, 2024 3:55pm Chief Complaint and Reason for Visit Chief [...] WATERSHE D CVA September 03, 2024 12:10pm [facility] hospital F/U September 17, 2024 10: 53am Carotidstent in [employer] Analyst, [place] Staff, Eugene BAR October 05, 2024 7:25am Carotidstent in [employer] Will[employer] Analyst, OR Staff, Eugene BAR October 05, 2024 9:30am Carotidstent in [employer] Willow Analyst, OR Staff, Eugene BAR October 06, 2024 [...] [place]ATERS[place] D CVA September 03, 2024 12:10pm [facility] hospital F/U September 17, 2024 10: 53am Carotidstent in [employer] Analyst, OR Staff, Eugene BAR October 05, 2024 7:25am Carotidstent in [employer] Willow Analyst, OR Staff, Eugene BAR October 05, 2024 9:30am Carotidstent in [employer] Willow Analyst, OR Staff, Eugene BAR October 06, 2024 [...] WATERSHE D CVA September 03, 2024 12:10pm [facility] hospital F/U September 17, 2024 10: 53am Carotidstent in [employer] Analyst, OR Staff, Eugene BAR October 05, 2024 7:25am Carotidstent in Epic Willow Analyst, OR Staff, Eugene BAR October 05, 2024 9:30am Carotidstent in Epic Willow Analyst, OR Staff, Eugene BAR October 06, 2024 [...] WATERSHE D CVA September 03, 2024 12:10pm [facility] F/U September 17, 2024 10: 53am Carotidstent in [employer] Willow Analyst, OR Staff, Eugene BAR October 05, 2024 7:25am Carotidstent in [employer] Willow Analyst, OR Staff, Eugene BAR October 05, 2024 9:30am Carotidstent in [employer] Analyst, OR Staff, Eugene BAR October 06, 2024 12:57pm Post TCAR 2-4 WK FU October 22, 2024 12:53 pm S/P R TCAR, IMPAIRED GAG REFLEX/ INABILI TY TO SWAL October 22, 2024 2:53pm ACUTE HYPONATREMIA October 22, 2024 7:28p m ACUTE HYPONATREMIA October 22, 2024 8:11p m ACUTE HYPONATREMIA October 23, 2024 10:11 am ACUTE HYPONATREMIA October 24, 2024 2:35p m Chief Complaint Admit Date HYPERTENSIVE EMERGENCY & TIA VS WATERSHE D CVA August 31, 2024 11:32pm HYPERTENSIVE EMERGENCY & TIA VS [place] D CVA September 01, 2024 3:48pm HYPERTENSIVE EMERGENCY & TIA VS [place] D CVA September 02, 2024 5:18pm HYPERTENSIVE EMERGENCY & TIA VS [place] D CVA September 03, 2024 12:10pm [facility] F/U September 17, 2024 10: 53am Carotidstent in [employer] Analyst, OR Staff, Eugene BAR October 05, 2024 7:25am Carotidstent in [employer] Willow Analyst, OR Staff, Eugene BAR October 05, 2024 9:30am Carotidstent in [employer] Willow Analyst, OR Staff, Eugene BAR October 06, 2024 12:57pm Post TCAR 2-4 WK FU October 22, 2024 12:53 pm S/P R TCAR, IMPAIRED GAG REFLEX/ INABILI TY TO SWAL October 22, 2024 2:53pm ACUTE HYPONATREMIA October 22, 2024 7:28p m ACUTE HYPONATREMIA October 22, 2024 8:11p m ACUTE HYPONATREMIA October 23, 2024 10:11 am ACUTE HYPONATREMIA October 24, 2024 2:35p m wound check October 29, 2024 11:24 pm Chief Complaint Admit Date HYPERTENSIVE EMERGENCY & TIA VS WATERS[place] D CVA August 31, 2024 11:32pm HYPERTENSIVE EMERGENCY & TIA VS [place] D CVA September 01, 2024 3:48pm HYPERTENSIVE EMERGENCY & TIA VS [place] D CVA September 02, 2024 5:18pm HYPERTENSIVE EMERGENCY & TIA VS [place] D CVA September 03, 2024 12:10pm [facility] hospital F/U September 17, 2024 10: 53am Carotidstent in [employer] Analyst, OR Staff, Eugene BAR October 05, 2024 7:25am Carotidstent in Epic Willow Analyst, OR Staff, Eugene BAR October 05, 2024 9:30am Carotidstent in [employer]ow Analyst, OR Staff, Eugene BAR October 06, 2024 12:57pm Post TCAR 2-4 WK FU October 22, 2024 12:53 pm S/P R TCAR, IMPAIRED GAG REFLEX/ INABILI TY TO SWAL October 22, 2024 2:53pm ACUTE HYPONATREMIA October 22, 2024 7:28p m ACUTE HYPONATREMIA October 22, 2024 8:11p m ACUTE HYPONATREMIA October 23, 2024 10:11 am ACUTE HYPONATREMIA October 24, 2024 2:35p m wound check October 29, 2024 11:24 pm ACUTE RENAL FAILURE November 17, 2024 6:46 pm Reason for Visit Admit Date Poorly-controlled [...] m Weakness October 22, 2024 7:28p m JUJU (acute kidney injury) November 17 6:46pm Additional Source Comments INFORMATION SOURCE (unrecogn ized section and content) DATE CREATED AUTHOR 06/23/2019 [facility] ([place]) DATE CREATED AUTHOR AUTHOR'S ORGANIZ ATION 09/02/2024 [facility] DATE CREATED AUTHOR AUTHOR'S ORGANIZ ATION 11/04/2024 [facility] DATE CREATED AUTHOR AUTHOR'S ORGANIZ ATION 11/17/2024 [facility] Source Comments (unrecognize d section and content) In the event this informatio n is protected by the Federal Confidentiality of Alcohol and Drug Abuse Patient Records regulations: The Federal rules restrict any use of the information to criminally investigate or prosecute any alcohol or drug abuse patient.[facility] SystemIn the event this information is protected by the Federal Confidentiality of Alcohol and Drug Abuse Patient Records regulations: The Federal rules restrict any use of the information to criminally investigate or prosecute any alcohol or drug abuse patient.[facility] SystemIn the event this information is protected by the Federal Confidentiality of Alcohol and Drug Abuse Patient Records regulations: The Federal rules restrict any use of the information to criminally investigate or prosecute any alcohol or drug abuse patient.[facility] SystemIn the event this information is protected by the Federal Confidentiality of Alcohol and Drug Abuse Patient Records regulations: The Federal rules restrict any use of the information to criminally investigate or prosecute any alcohol or drug abuse patient.[facility] SystemIn the event this information is protected by the Federal Confidentiality of Alcohol and Drug Abuse Patient Records regulations: The Federal rules restrict any use of the information to criminally investigate or prosecute any alcohol or drug abuse patient.[facility] SystemIn the event this information is protected by the Federal Confidentiality of Alcohol and Drug Abuse Patient Records regulations: The Federal rules restrict any use of the information to criminally investigate or prosecute any alcohol or drug abuse patient.[facility] SystemIn the event this information is protected by the Federal Confidentiality of Alcohol and Drug Abuse Patient Records regulations: The Federal rules restrict any use of the information to criminally investigate or prosecute any alcohol or drug abuse patient.[facility] SystemIn the event this information is protected by the Federal Confidentiality of Alcohol and Drug Abuse Patient Records regulations: The Federal rules restrict any use of the information to criminally investigate or prosecute any alcohol or drug abuse patient.[facility] SystemIn the event this information is protected by the Federal Confidentiality of Alcohol and Drug Abuse Patient Records regulations: The Federal rules restrict any use of the information to criminally investigate or prosecute any alcohol or drug abuse patient.[facility] SystemIn the event this information is protected by the Federal Confidentiality of Alcohol and Drug Abuse Patient Records regulations: The Federal rules restrict any use of the information to criminally investigate or prosecute any alcohol or drug abuse patient.[facility] SystemIn the event this information is protected by the Federal Confidentiality of Alcohol and Drug Abuse Patient Records regulations: The Federal rules restrict any use of the information to criminally investigate or prosecute any alcohol or drug abuse patient.[facility] SystemIn the event this information is protected by the Federal Confidentiality of Alcohol and Drug Abuse Patient Records regulations: The Federal rules restrict any use of the information to criminally investigate or prosecute any alcohol or drug abuse patient.[facility] SystemIn the event this information is protected by the Federal Confidentiality of Alcohol and Drug Abuse Patient Records regulations: The Federal rules restrict any use of the information to criminally investigate or prosecute any alcohol or drug abuse patient.[facility] Care Teams (unrecognized sec tion and content) [employer] Relationship Specialty Start Date End Date Kurt Lieberman MD [address] [id number] PCP - General Family Medicine 11/14/23 [employer] Relationship Specialty Start Date End Date Kurt Lieberman MD [address] [place] [phone] PCP - General Family Medicine 11/14/23 [employer] Relationship Specialty Start Date End Date Kurt Lieberman MD [address] [facility] [address] [place] [phone] PCP - General Family Medicine 11/14/23 Team Status: Active Member Role Status Dates Dr. uKrt Lieberman MD Primary Care Provider Active Team [...] Start : August 31, 2024 Dr. Sonali Ny DO Other Provider Active St art: August [...] MD Other Provider Active Start: Ap 2024 End: September 03, 2024 Dr. Roberto [...] 01, 2024 End: September 03, 2024 Dr. Ralph Monet MD Other Provider Active Sta rt: September 01, 2024 End: September 03, 2024 Sherry Priest MD Other Provider Active Start : September 01, 2024 End: September 03, 2024 Dr. Scott Fernandez MD Other Provider Active St art: September 01, 2024 End: September 03, 2024 Dr. Jovita Gibson MD [...] Provider Active Start: September 03, 2024 Armen Ascencio MD Other Provider Active Start: September 03, 2024 Dr. Dariana Wise DO Attending Provider Active S tart: September 03, 2024 Dr. Dariana Wise DO Other Provider Active Start : September 03, 2024 Dr. Ugo Rogel MD Other Provider Active Start : September 03, 2024 [employer] Relationship Specialty Start Date End Date Angela High MD [address] [place] [address] PCP - General Internal Medicine 09/10/24 [employer] Relationship Specialty Start Date End Date Angela High MD [address] [place] [address] PCP - General Internal Medicine 09/10/24 [employer] Relationship Specialty Start Date End Date Angela High MD [address] [place] [address] PCP - General Internal Medicine 09/10/24 [employer] Relationship Specialty Start Date End Date Angela High MD [address] [place] [address] PCP - General Internal Medicine 09/10/24 Team [...] Provider Active Star t: October 06, 2024 [employer] Relationship Specialty Start Date End Date Angela High MD [address] [place] [address] PCP - General Internal Medicine 09/10/24 Laura Tristan APRN.ASSISTANT CREDIT MANAGER [address] [place] [address] [employer] Internal Medicine 10/11/24 [employer] Relationship Specialty Start Date End Date Angela High MD [address] [place] [address] PCP - General Internal Medicine 09/10/24 Laura Tristan APRN.ASSISTANT CREDIT MANAGER [address] [place] [address] [employer] Internal Medicine 10/11/24 Team Status: Inactive Member [...] Start: October 24, 2024 Dr. Familia Manriquez , Attending Provider Active Start: October 24, 2024 Dr. Familia Manriquez , DO Other Provider Active Start: October 24, 2024 Team Status: Inactive Member Role Status Dates Dr. Angela High MD Primary Care Provider Active Start: October 22, 2024 End: October 22, 2024 DAVI Green Attending Provider Active Star t: October 22, 2024 End: October 22, 2024 DAVI Green Referring Provider Active Star t: October 22, 2024 End: October 22, 2024 Team Status: Inactive Member Role Status Dates Dr. Angela High MD Primary Care Provider Active Start: October 29, 2024 End: October 30, 2024 Dr. Clay Resendez MD Emergency Provider Active Start: October 29, 2024 End: October 30, 2024 [employer] Relationship Specialty Start Date End Date Angela High MD [address] [place] [address] PCP - General Internal Medicine 09/10/24 Laura Tristan, DIGITAL INTERN.ASSISTANT CREDIT MANAGER [address] [facility] [place] [address] [employer] Internal Medicine 10/11/24 [employer] Relationship Specialty Start Date End Date Angela High MD [address] [place] [address] PCP - General Internal Medicine 09/10/24 Laura Tristan, DIGITAL INTERN.ASSISTANT CREDIT MANAGER [address] [facility] [place] [address] [employer] Internal Medicine 10/11/24 [employer] Relationship Specialty Start Date End Date Angela High MD [address] [place] [address] PCP - General Internal Medicine 09/10/24 Laura Tristan APRN.ASSISTANT CREDIT MANAGER [address] [facility] [place] [address] [employer] Internal Medicine 10/11/24 Team Status: Inactive Member Role Status Dates Dr. Angela High MD Primary Care Provider Active Start: October 29, 2024 End: October 30, 2024 Dr. Clay Resendez MD Attending Provider Active Start: October 29, 2024 End: October 30, 2024 Dr. Clay Resendez MD Emergency Provider Active Start: October 29, 2024 End: October 30, 2024 Team Status: Active Member Role Status Dates Dr. Angela High MD Primary Care Provider Active Start: November 17, 2024 Dr. Sherron Toussaint DO Emergency Provider Active Start: November 17, 2024 Dr. Imelda Marsh MD Admit Provider Active Star t: November 17, 2024 Dr. Imelda Marsh MD Attending Provider Active Start: November 17, 2024 Reason for Visit (unrecogniz ed section and content) Reason Comments Procedure Right upper lip lipo ma Reason Comments Hospital Follow Up Reason Comments Medication Problem Reason Comments 6 week f/u Reason Comments Information Reason Comments Acute Visit Dysphagia, N/V, gagg ing & weakness x3-4 days Goals (unrecognized section and content) Goals may [...] BE BASED ON THE PRIMARY CLINICAL RECORDS. [employer] provides no warranty or guarantee of the accuracy or completeness of information in this document.
[2024-11-17] MEDS: Atorvastatin Calcium 40 MG Tablet PO (22:59)
[2024-11-17] MEDS: amLODIPine 5 MG Tablet PO (22:59)
--- OUTSIDE RECORDS SUMMARY | 2024-11-17 22:59 | XMS RPT_ITS | CCD ---
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 Mejia Other Provider [phone] Estela Guzman MD Other Provider Unavailable Dr. Sonali Ny DO Other Provider Dr. Monik Barker MD Other Provider [phone] Ronald Christianson MD Other Provider Dr. Candis Noel MD Other Provider Dr. Luis Crooks MD Other Provider Dr. Twin Hanna MD Other Provider [phone] Chiki PENN, Dr. Rosas Other Provider Sherry Priest MD Other Provider Dr. Scott Fernandez MD Other Provider Arthur PENN, Dr. Hussein Other Provider Myrna PENN, Dr. Davila Other Provider Silver PENN, Dr. Magno Peterson Other Provider Ej PENN, Dr. Valencia Other Provider [phone] Gertrude PENN, Dr. Trejo Other Provider Neisha EPNN, Dr. Wasserman Other Provider Frandy PENN, Dr. [...] Dr. Ugo Rogel MD Referring Provider Older CANDY ATTENDANT.EVENT SET UP SPECIALIST, Laura Unavailable Dr. Kurt Lieberman MD Referring Provider Sonali Bowie Referring Provider Dr. Jony Lambert DO Emergency Provider Fabián PENN, Dr. Axel Pinon Admit Provider [phone] Fabián PENN, Dr. Axel Pinon Attending Provider Fabián PENN, Dr. Axel Pinon Other Provider Dr. Familia Manriquez DO Attending Provider Fabián PENN, Dr. Axel Pinon Attending Provider Declan HOLLAND, Dr. Barbosa Other Provider [phone] Dipti PENN, Dr. Williamson Emergency Provider Pebbles, [...] Primary Care Unavailable Pebbles, Ugo Attending Unavailable [place], Ugo Referring Unavailable Pebbles, Ugo Admitting Unavailable Ganta, Angela Primary Care Unavailable Angel Shepard Attending Unavailable Lieberman, Kurt Primary Care Unavailable [place], Ugo Referring Unavailable [place], Ugo Admitting Unavailable Haro, Sonali Attending Unavailable [place], Ugo Consulting Unavailable Ganta, Angela Primary Care Unavailable Haro, Sonali Attending Unavailable Ganta, Angela Referring Unavailable Ganta, Angela Primary Care Unavailable [place], Ugo Consulting Unavailable [place], Ugo Attending Unavailable [place], Ugo Referring Unavailable [place], Ugo Admitting Unavailable Ganta, Angela Primary Care [...] Ibarra Attending Unavailable Jason Walker Consulting Unavailable [facility] Primary Care Unavailable Adeli, Amir Consulting Unavailable [...] Walker Consulting Unavailable Severiano Ibarra Admitting Unavailable [facility] Primary Care Unavailable Adeli, Amir Consulting Unavailable [...] Sonali Referring Unavailable Haro, Sonali Attending Unavailable [facility] Primary Care Unavailable Caly Resendez Attending Unavailable [facility] Primary Care Unavailable [facility], ANGELA Referring Unavailable GANTA, ANGELA Primary Care [...] Provider Dr. Sherron Toussaint DO Emergency Provider Maximo PENN, Dr. Segura Admit Provider Maximo PENN, Dr. Segura Attending Provider Allergies Allergy Classification Reported Allergen(s) Allergy Type Date of Onset Reaction(s) Facility (4 sources) hydroCHLOROthiazide Drug Allergy 5 [facility] (1 source) hydroCHLOROthiazide Drug Allergy 5 [facility] Repository Medications Current Medications Medication Drug Class(es) [...] (Discontinued by another Health Care Provider) nystatin 302723 unt/ml oral suspension (2 sources) Polyene Antifungal [...] neoplasm] 09-10-2024 Episodic Other aftercare (1 source) intermediate (current) use of insulin; Translations: [manager long term care (current) use of insulin] Onset: Episodic Other [...] spec) [#/Vol] 2.28 10*3/uL 0.83-4.51 [facility] Absolute neutrophil countOrd ered By: Sherron Toussaint on 11-17-2024 Neutrophils (Bld) [#/Vol] 7.2 10*3/uL 2.0-7.7 [facility] Anion gap in Serum or Plasma Ordered By: Sherron Toussaint on 11-17-2024 Anion gap [Moles/Vol] 19 mmol/L High 5-15 [facility] Automated lymphocyte count a s percentage of total leukocytesOrdered By: Sherron Toussaint on 11-17-2024 Lymphocytes/100 WBC Auto (Unsp spec) 20.9 % 19-41 [facility] BUN/creatinine ratioOrdered By: Sherron Toussaint on 11-17-2024 Urea nitrogen/Creatinine [Mass ratio] 6.9 mg/mg Low 10-20 [facility] Basophil percentageOrdered B y: Sherron Toussaint on 11-17-2024 Basophils/100 WBC (Bld) 0.6 % 0-1 [facility] Bilirubin Test strip Ql (U)O rdered By: Sherron Toussaint on 11-17-2024 Bilirubin Ql (U) Negative Negative [facility] Bilirubin, totalOrdered By: Sherron Toussaint on 11-17-2024 Bilirubin [Mass/Vol] 0.35 mg/dL 0.00-1.30 [facility] Carbon dioxide, total [Moles /volume] in Central venous bloodOrdered By: Sherron Toussaint on 11-17-2024 CO2 [Moles/Vol] 14.7 mmol/L Low 21.0-32.0 [facility] Chloride assayOrdered By: Aiden Toussaint on 11-17-2024 Chloride [Moles/Vol] 99 mmol/L 98-108 [facility] Eosinophil percentageOrdered By: Sherron Toussaint on 11-17-2024 Eosinophils/100 WBC (Bld) 0.4 % 0-5 [facility] Erythrocyte distribution wid th ratioOrdered By: Sherron Toussaint on 11-17-2024 Erythrocyte distribution width (RBC) [Ratio] 14.8 % High 11.6-14.6 [facility] Erythrocyte distribution wid th standard deviationOrdered By: Sherron Toussaint on 11-17-2024 Erythrocyte distribution width (RBC) [Ratio] 50.4 fl High 35.1-43.9 [facility] Glomerular filtration rate ( GFR) estimation/1.73 sq m using serum, plasma, or whole bOrdered By: Sherron Toussaint on 11-17-2024 GFR/1.73 sq M.predicted among non-blacks MDRD (S/P/Bld) [Vol rate/Area] 16 mL/min/{1.73_m2} Low >60 [facility] Comment on above: mL/min/1.73m2 CKD-EP I Creatinine Equation (2020) Hematocrit Auto (Bld) [Volum e fraction]Ordered By: Sherron Toussaint on 11-17-2024 Hematocrit (Bld) [Volume fraction] 32.9 % Low 37-47 [facility] Hemoglobin measurementOrdere d By: Sherron Toussaint on 11-17-2024 Hemoglobin (Bld) [Mass/Vol] 10.6 g/dL Low 12.0-15.0 [facility] Immature granulocytes/100 WB C Auto (Bld)Ordered By: Sherron Toussaint on 11-17-2024 Immature granulocytes/100 WBC (Bld) 0.600 % 0.0-0.9 [facility] Comment on above: IG% - Immature Granu locytes (promyelocytes, myelocytes and metamyelocytes) > 1% indicates that a LEFT SHIFT is Present. Ketones Test strip Ql (U)Ord ered By: Sherron Toussaint on 11-17-2024 Ketones Ql (U) Negative Negative [facility] Laboratory - Chemistry and C hemistry - challengeOrdered By: Sherron Toussaint on 11-17-2024 AST [Catalytic activity/Vol] 21 U/L <32 [facility] Comment on above: Hemolysis present, R esults could be affected. Lipase measurementOrdered By : Sherron Toussaint on 11-17-2024 Lipase [Catalytic activity/Vol] 57 U/L 13-75 [facility] Comment on above: Please note:LIPASE r evised reference range effective 22. New Lipase methodology. Expected to produce lower values than the previous assay method. NEW Reference Range: 13 - 75 U/L MCV (mean corpuscular volume ) determinationOrdered By: Sherron Toussaint on 11-17-2024 MCV (RBC) [Entitic vol] 92.9 fL 81-99 [facility] Mean corpuscular hemoglobin (MCH) determinationOrdered By: Sherron Toussaint on 11-17-2024 MCH (RBC) [Entitic mass] 29.9 pg 27.0-32.0 [facility] Mean corpuscular hemoglobin concentration (MCHC) determinationOrdered By: Sherron Toussaint on 11-17-2024 MCHC (RBC) [Mass/Vol] 32.2 g/dL 32-36 [facility] Mean platelet volume determi nationOrdered By: Sherron Toussaint on 11-17-2024 Platelet mean volume (Bld) [Entitic vol] 11.0 fL 6.2-12.0 [facility] Microscopic analysis of urin e for red blood cells (RBC)Ordered By: Sherron Toussaint on 11-17-2024 Microscopic analysis of urine for red blood cells (RBC) 0-5 SEEN /hpf 0-5 [facility] Monocyte percentageOrdered B y: Sherron Toussaint on 11-17-2024 Monocytes/100 WBC (Bld) 11.4 % High 0-10 [facility] Mucus LM Ql (Urine sed)Order ed By: Sherron Toussaint on 11-17-2024 Mucus Ql (Urine sed) 0 SEEN /hpf [facility] Neutrophil percentageOrdered By: Sherron Toussaint on 11-17-2024 Neutrophils/100 WBC (Bld) 66.1 % 47-70 [facility] Nitrite Test strip Ql (U)Ord ered By: Sherron Toussaint on 11-17-2024 Nitrite Ql (U) Negative Negative [facility] Nucleated red blood cell per centageOrdered By: Sherron Toussaint on 11-17-2024 Nucleated RBC/100 WBC (Bld) [Ratio] 0 % 0-5 [facility] Platelet countOrdered By: Aiden Toussaint on 11-17-2024 Platelets (Bld) [#/Vol] 357 10*3/uL 150-450 [facility] Potassium measurement (mass/ volume)Ordered By: Sherron Toussaint on 11-17-2024 Potassium (Unsp spec) [Mass/Vol] 3.6 mmol/L 3.3-5.1 [facility] Comment on above: Hemolysis present, R esults could be affected. Protein Test strip Ql (U)Ord ered By: Sherron Toussaint on 11-17-2024 Protein Ql (U) 30 mg/dl High Negative [facility] RBC Auto (Bld) [#/Vol]Ordere d By: Sherron Toussaint on 11-17-2024 RBC (Bld) [#/Vol] 3.54 10*6/uL Low 4.2-5.4 [facility] Serum creatinine measurement (mass/volume)Ordered By: Sherron Toussaint on 11-17-2024 Creatinine [Mass/Vol] 2.78 mg/dL High 0.70-1.20 [facility] Serum globulin measurementOr dered By: Sherron Toussaint on 11-17-2024 Globulin (S) [Mass/Vol] 2.9 g/dL 2.2-4.2 [facility] Serum glucose measurement (m ass/volume)Ordered By: Sherron Toussaint on 11-17-2024 Glucose [Mass/Vol] 120 mg/dL High 70-99 [facility] Serum or plasma alanine jackson otransferase (ALT) measurementOrdered By: Sherron Toussaint on 11-17-2024 ALT [Catalytic activity/Vol] 23 U/L <35 [facility] Serum or plasma albumin alfred urement (mass/volume)Ordered By: Sherron Toussaint on 11-17-2024 Albumin [Mass/Vol] 3.5 g/dL 3.4-4.8 [facility] Serum or plasma albumin/glob ulin mass ratioOrdered By: Sherron Toussaint on 11-17-2024 Albumin/Globulin [Mass ratio] 1.2 {ratio} 0.9-2.4 [facility] Serum or plasma alkaline windy sphatase measurementOrdered By: Sherron Toussaint on 11-17-2024 ALP [Catalytic activity/Vol] 107 U/L High 35-104 [facility] Serum or plasma calcium alfred urement (mass/volume)Ordered By: Sherron Toussaint on 11-17-2024 Calcium [Mass/Vol] 7.8 mg/dL 7.6-11.0 [facility] Serum or plasma urea nitroge n measurement (mass/volume)Ordered By: Sherron Toussaint on 11-17-2024 Urea nitrogen [Mass/Vol] 19 mg/dL 4-19 [facility] Sodium levelOrdered By: Kiki Toussaint on 11-17-2024 Sodium [Moles/Vol] 133 mmol/L 133-145 [facility] Squamous epithelial cells de tection in urine sediment by light microscopyOrdered By: Sherron Toussaint on 11-17-2024 Epithelial cells.squamous LM Ql (Urine sed) 5-10 SEEN /hpf 5-10 [facility] Total proteinOrdered By: Deysi Toussaint on 11-17-2024 Protein [Mass/Vol] 6.4 g/dL 5.9-8.4 [facility] Urine clarityOrdered By: Deysi Toussaint on 11-17-2024 Clarity (U) Sl. Cloudy Clear [facility] Urine color determinationOrd ered By: Sherron Toussaint on 11-17-2024 Color (U) Straw Yellow [facility] Urine glucose detectionOrder ed By: Sherron Toussaint on 11-17-2024 Glucose Ql (U) Normal mg/dl Normal [facility] Urine leukocyte esterase det ection by dipstickOrdered By: Sherron Toussaint on 11-17-2024 Leukocyte esterase Test strip Ql (U) 25 /ul High Negative [facility] Urine pHOrdered By: Sherron hamilton on 11-17-2024 pH (U) 6.0 [pH] 5.0 - 8.0 [facility] Urine sediment bacteria coun t by microscopy (number/high power field)Ordered By: Sherron Toussaint on 11-17-2024 Bacteria LM.HPF (Urine sed) [#/Area] 2 /[HPF] None Seen [facility] Urine specific gravity measu rementOrdered By: Sherron Toussaint on 11-17-2024 Specific gravity (U) [Rel density] 1.010 1.002-1.030 [facility] Urine urobilinogen measureme ntOrdered By: Sherron Toussaint on 11-17-2024 Urobilinogen Ql (U) Normal mg/dl Normal [facility] White blood cell (WBC) count Ordered By: Sherron Toussaint on 11-17-2024 WBC (Bld) [#/Vol] 10.9 10*3/uL 4.4-11.0 [facility] White blood cell countOrdere d By: Sherron Toussaint on 11-17-2024 White blood cell count 5-10 SEEN /hpf 0-5 [facility] Basic metabolic 2000 panelon 11-16-2024 Anion gap [Moles/Vol] 16 mmol/L High 8-15 [facility] Comment on above: Order Comment: Speci men Type: BLOOD SPECIMENOrdering Facility: [facility] Address: [address] [place] [address] [place] [address] Performed By: #### 2 4321-2 ####[facility] LABCLIA [id number] [facility] [address] [address] [place] Calcium [Mass/Vol] 8.6 mg/dL Normal 8.5-10.2 [facility] Comment on above: Order Comment: Speci men Type: BLOOD SPECIMENOrdering Facility: [facility] Address: [address] [place] [address] Performed By: #### 2 4321-2 ####[facility] LABCLIA [id number] [facility] [place] [id number] [place] Chloride [Moles/Vol] 99 mmol/L Normal 98-107 [facility] Comment on above: Order Comment: Speci men Type: BLOOD SPECIMENOrdering Facility: [facility] Address: [address] [place] [address] Performed By: #### 2 4321-2 ####[facility] LABCLIA [id number] [place] [address] [place] CO2 [Moles/Vol] 20 mmol/L Low 22-30 [facility] Comment on above: Order Comment: Speci men Type: BLOOD SPECIMENOrdering Facility: [facility] Address: [address] [place] [address] Performed By: #### 2 4321-2 ####[facility] LABCLIA [id number] [place] [id number] [place] Creatinine [Mass/Vol] 2.82 mg/dL High 0.58-0.96 [facility] Comment on above: Order Comment: Speci men Type: BLOOD SPECIMENOrdering Facility: [facility] Address: [address] [place] [address] Performed By: #### 2 4321-2 ####[facility] LABCLIA [id number] [place] [id number] [place] Creatinine and Glomerular filtration rate.predicted panel (S/P/Bld) 16 mL/min/1.73m??? Low >=60 [facility] Comment on above: Order Comment: Huseyin vasquez Type: BLOOD SPECIMENOrdering Facility: [facility] Address: [address] [place] [address] Result Comment: Cecilia mated Glomerular Filtration Rate [...] actual GFR. Performed By: #### 2 4321-2 ####[facility] [id number] [place] [address] [place] Glucose [Mass/Vol] 164 mg/dL High 74-99 [facility] Comment on above: Order Comment: Huseyin vasquez Type: BLOOD SPECIMENOrdering Facility: [facility] Address: [address] [place] [address] Result Comment: The [place] [employer] (ADA) provides guidance for cutoff [...] Standards of Medical Care in Diabetes 2016, [place] [employer]. Diabetes Care. 2016.39(Suppl 1). Performed By: #### 2 4321-2 ####[facility] [id number] [place] [address] [place] Potassium [Moles/Vol] 4.1 mmol/L Normal 3.7-5.1 [facility] Comment on above: Order Comment: Huseyin vasquez Type: BLOOD SPECIMENOrdering Facility: [facility] Address: [address] [place] [address] Performed By: #### 2 4321-2 ####[facility] LABCLIA [id number] [place] [id number] [place] Sodium [Moles/Vol] 135 mmol/L Low 136-144 [facility] Comment on above: Order Comment: Speci men Type: BLOOD SPECIMENOrdering Facility: [facility] Address: [address] [place] [address] Performed By: #### 2 4321-2 ####[facility] LABIA [id number] [address] [place] Urea nitrogen [Mass/Vol] 17 mg/dL Normal 7-21 [facility] Comment on above: Order Comment: Speci men Type: BLOOD SPECIMENOrdering Facility: [facility] Address: [address] [place] [address] Performed By: #### 2 4321-2 ####[facility] LABIA [id number] [address] [place] CNOVon 11-16-2024 CNOV Office Visit (INTMWS ) CHELSEA MOODY ([id number]) 1940 F Date Time Provider Department 11/16/24 [...] also refer you to Dr. Shell, a fire tender, for further evaluation of your gagging, loss [...] further medic (more content not included)... [facility] CHEL[facility] MO[facility] ([id number]) 1940 F Date Time Provider Department 11/16/24 ANGELA HIGH INTMWS During your visit today, we recorded the following information about you: Marysol Christian RN 11/16/2024 12:23 PM Signed Patient's daughter calls and is requesting Gastroenterology referral to be faxed to Dr. Shell office and for Barium swallow testing to be faxed to [facility]. ORESTES Burgos Chitra, MD 11/16/2024 5:14 PM [...] Status:Closed by MARYSOL CHRISTIAN on 11/17/24 Normal [facility] CBC panel Auto (Bld)on 11-15 Erythrocyte distribution width (RBC) [Ratio] 14.1 % Normal 11.5-15.0 [facility] Comment on above: Order Comment: Speci men Type: BLOOD SPECIMENOrdering Facility: [facility] Address: [address] [place] [address] Performed By: #### 5 8410-2 ####[facility] ERMARISOL [id number] [place] [address] [place] Hematocrit (Bld) [Volume fraction] 31.8 % Low 36.0-46.0 [facility] Comment on above: Order Comment: Speci men Type: BLOOD SPECIMENOrdering Facility: [facility] Address: [address] [place] [address] Performed By: #### 5 8410-2 ####[facility] ERMARISOL [id number] [place] [address] [place] Hemoglobin (Bld) [Mass/Vol] 10.7 g/dL Low 11.5-15.5 [facility] Comment on above: Order Comment: Speci men Type: BLOOD SPECIMENOrdering Facility: [facility] Address: [address] [place] [address] Performed By: #### 5 8410-2 ####[facility] ERBRENDALIA [id number] [place] [address] [place] MCH (RBC) [Entitic mass] 29.6 pg Normal 26.0-34.0 [facility] Comment on above: Order Comment: Speci men Type: BLOOD SPECIMENOrdering Facility: [facility] Address: [address] [place] [address] Performed By: #### 5 8410-2 ####[facility] ERNCLIA [id number] [place] [address] [place] MCHC (RBC) [Mass/Vol] 33.6 g/dL Normal 30.5-36.0 [facility] Comment on above: Order Comment: Speci men Type: BLOOD SPECIMENOrdering Facility: [facility] Address: [address] [place] [address] Performed By: #### 5 8410-2 ####[facility] ERDEMETRIUS [id number] [place] [address] [place] MCV (RBC) [Entitic vol] 88.1 fL Normal 80.0-100.0 [facility] Comment on above: Order Comment: Speci men Type: BLOOD SPECIMENOrdering Facility: [facility] Address: [address] [place] [address] Performed By: #### 5 8410-2 ####[facility]BREND[facility] [id number] [place] [address] [place] Nucleated RBC (Bld) [#/Vol] 10*3/uL Normal <0.01 [facility] Comment on above: Order Comment: Speci men Type: BLOOD SPECIMENOrdering Facility: [facility] Address: [address] [place] [address] Performed By: #### 5 8410-2 ####[facility] [id number] [place] [address] [place] Platelet mean volume (Bld) [Entitic vol] 10.0 fL Normal 9.0-12.7 [facility] Comment on above: Order Comment: Speci men Type: BLOOD SPECIMENOrdering Facility: [facility] Address: [address] [place] [address] Performed By: #### 5 8410-2 ####[facility] ERNCLIA [id number] [place] [address] [place] Platelets (Bld) [#/Vol] 403 10*3/uL High 150-400 [facility] Comment on above: Order Comment: Speci men Type: BLOOD SPECIMENOrdering Facility: [facility] Address: [address] [place] [address] Performed By: #### 5 8410-2 ####[facility] ERNCLIA [id number] [place] [address] [place] RBC (Bld) [#/Vol] 3.61 10*6/uL Low 3.90-5.20 [facility] Comment on above: Order Comment: Speci men Type: BLOOD SPECIMENOrdering Facility: [facility] Address: [address] [place] [address] Performed By: #### 5 8410-2 ####[facility] ERNCLIA [id number] [place] [address] [place] WBC (Bld) [#/Vol] 10.11 10*3/uL Normal 3.70-11.00 [facility] Comment on above: Order Comment: Speci men Type: BLOOD SPECIMENOrdering Facility: [facility] Address: [address] [place] [address] Performed By: #### 5 8410-2 ####[facility] ERNCLIA [id number] [place] [address] [place] Emergency Department Summary on 10-30-2024 Emergency Department Summary [facility] Medical Records Department [address] [place] [address] Emergency Department Summary 10/30/24 MR#: [id number] Acct: [id number] Name: CHELSEA MOODY Rep #: [id number] : 1940 83 From: Clay Resendez MD [...] any systemic symptoms of anemia or fevers. [facility] Medical History Wears glasses Wears dentures [...] (more content not included)... Normal [facility] Basic Metabolic Profile (BMP )on 10-25-2024 BUN Normal 4-19 [facility] Comment on above: Result Comment: Canc elled via OM: Order cancelled - Patient discharged Performed By: #### L 501.080 #### [facility] Laboratory [address] [place], [address] BUN/CRE Normal 10-20 [facility] Comment on above: Result Comment: Canc elled via OM: Order cancelled - Patient discharged Performed By: #### L 501.080 #### [facility] [address] [place], [address] Calcium Normal 7.6-11.0 [facility] Comment on above: Result Comment: Canc elled via OM: Order cancelled - Patient discharged Performed By: #### L 501.080 #### [facility] [address] [place], [address] CL Normal 98-108 [facility] Comment on above: Result Comment: Canc elled via OM: Order cancelled - Patient discharged Performed By: #### L 501.080 #### [facility] [address] [place], [address] CO2 Normal 21.0-32.0 [facility] Comment on above: Result Comment: Canc elled via OM: Order cancelled - Patient discharged Performed By: #### L 501.080 #### [facility] [address] [place], [address] CREAT,SERUM Normal 0.70-1.20 [facility] Comment on above: Result Comment: Canc elled via OM: Order cancelled - Patient discharged Performed By: #### L 501.080 #### [facility] [address] [place], [address] eGFR Normal >60 [facility] Comment on above: Result Comment: Canc elled via OM: Order cancelled - Patient discharged Performed By: #### L 501.080 #### [facility] [address] [place], [address] GAP Normal 5-15 [facility] Comment on above: Result Comment: Canc elled via OM: Order cancelled - Patient discharged Performed By: #### L 501.080 #### [facility] [address] [place], [address] GLU Normal 70-99 [facility] Comment on above: Result Comment: Canc elled via OM: Order cancelled - Patient discharged Performed By: #### L 501.080 #### [facility] [address] [place], [address] Potassium Normal 3.3-5.1 [facility] Comment on above: Result Comment: Canc elled via OM: Order cancelled - Patient discharged Performed By: #### L 501.080 #### [facility] [address] [place], [address] Basic Metabolic Profile (BMP) Normal 133-145 [facility] Comment on above: Result Comment: Canc elled via OM: Order cancelled - Patient discharged Performed By: #### L 501.080 #### [facility] [address] [place], [address] Anion gap in Serum or Plasma Ordered By: Familia Manriquez on 10-24-2024 Anion gap [Moles/Vol] 13 mmol/L 5-15 [facility] BUN/creatinine ratioOrdered By: Familia Manriquez on 10-24-2024 Urea nitrogen/Creatinine [Mass ratio] 8.4 mg/mg Low 10-20 [facility] Basic Metabolic Profile (BMP )on 10-24-2024 BUN/CRE 8.4 RATIO Low - [facility] Comment on above: Performed By: #### L 501.080 #### [facility] [address] [place], [address] Calcium [Mass/Vol] 9.2 mg/dL Normal 7.6-11.0 [facility] Comment on above: Performed By: #### L 501.080 #### [facility] [address] [place], [address] Chloride [Moles/Vol] 98 mmol/L Normal 98-108 [facility] Comment on above: Performed By: #### L 501.080 #### [facility] [address] [place], [address] CO2 [Moles/Vol] 20.9 mmol/L Low 21.0-32.0 [facility] Comment on above: Performed By: #### L 501.080 #### [facility] [address] [place], [address] Creatinine [Mass/Vol] 0.90 mg/dL Normal 0.70-1.20 [facility] Comment on above: Performed By: #### L 501.080 #### [facility] [address] [place], [address] ECRCL 42.51 ml/min Low 50-250 [facility] Comment on above: Performed By: #### L 501.080 #### [facility] [address] [place], [address] GAP 13 Normal 5-15 [facility] Comment on above: Performed By: #### L 501.080 #### [facility] [address] [place], [address] GFR/1.73 sq M.predicted among non-blacks MDRD (S/P/Bld) [Vol rate/Area] 63 mL/min/{1.73_m2} Normal >60 [facility] Comment on above: Result Comment: mL/m in/1.73m2 CKD-EPI Creatinine Equation (2020) Performed By: #### L 501.080 #### [facility] [address] [place], [address] Glucose [Mass/Vol] 148 mg/dL High 70-99 [facility] Comment on above: Performed By: #### L 501.080 #### [facility] [address] [place], [address] Potassium [Moles/Vol] 4.0 mmol/L Normal 3.3-5.1 [facility] Comment on above: Performed By: #### L 501.080 #### [facility] [address] [place], [address] Sodium [Moles/Vol] 132 mmol/L Low 133-145 [facility] Comment on above: Performed By: #### L 501.080 #### [facility] [address] [place], [address] Urea nitrogen [Mass/Vol] 8 mg/dL Normal 4-19 [facility] Comment on above: Performed By: #### L 501.080 #### [facility] [address] [place], [address] Bedside Glucoseon 10-24-2024 FINGERSTICK GLU 263 mg/dL High 74-106 [facility] Comment on above: Result Comment: RAKESH GEMENT OF PATIENT CARE PER NURSING PROTOCOL Performed By: #### L 400.0001 #### [facility] [address] [place], [address] FINGERSTICK GLU 252 mg/dL High 74-106 [facility] Comment on above: Result Comment: RAKESH GEMENT OF PATIENT CARE PER NURSING PROTOCOL Performed By: #### L 400.0001 #### [facility] [address] [place], [address] FINGERSTICK GLU 156 mg/dL High 74-106 [facility] Comment on above: Result Comment: RAKESH GEMENT OF PATIENT CARE PER NURSING PROTOCOL Performed By: #### L 500.4100, L503.0106 #### [facility] [address] [place], [address] Carbon dioxide, total [Moles /volume] in Central venous bloodOrdered By: Familia Manriquez on 10-24-2024 CO2 [Moles/Vol] 20.9 mmol/L Low 21.0-32.0 [facility] Chloride assayOrdered By: Aries Manriquez on 10-24-2024 Chloride [Moles/Vol] 98 mmol/L 98-108 [facility] Discharge Instructionon 06-0 Discharge Instruction [facility] Medical Records Department [address] [place] [address] Instructions for Home/Discharge Instructions 10/24/24 1435 MR#: [id number] Acct: [id number] Name: CHELSEA MOODY Rep #: [id number] : 1940 83 From: Familia Manriquez DO [...] Axel Lockwood MD Signed Normal [facility] Glomerular filtration rate ( GFR) estimation/1.73 sq m using serum, plasma, or whole bOrdered By: Familia Manriquez on 10-24-2024 GFR/1.73 sq M.predicted among non-blacks MDRD (S/P/Bld) [Vol rate/Area] 63 mL/min/{1.73_m2} >60 [facility] Comment on above: mL/min/1.73m2 CKD-EP I Creatinine Equation (2020) [facility] at [facility] deOrdered By: Familia Manriquez on 10-24-2024 Glucose [Mass/Vol] 263 mg/dL High 74-106 [facility] Comment on above: MANAGEMENT OF PATIEN T CARE PER NURSING PROTOCOL Potassium measurement (mass/ volume)Ordered By: Familia Manriquez on 10-24-2024 Potassium (Unsp spec) [Mass/Vol] 4.0 mmol/L 3.3-5.1 [facility] Serum creatinine measurement (mass/volume)Ordered By: Familia Manriquez on 10-24-2024 Creatinine [Mass/Vol] 0.90 mg/dL 0.70-1.20 [facility] Serum glucose measurement (m ass/volume)Ordered By: Familia Manriquez on 10-24-2024 Glucose [Mass/Vol] 148 mg/dL High 70-99 [facility] Serum or plasma calcium alfred urement (mass/volume)Ordered By: Familia Manriquez on 10-24-2024 Calcium [Mass/Vol] 9.2 mg/dL 7.6-11.0 [facility] Serum or plasma urea nitroge n measurement (mass/volume)Ordered By: Familia Manriquez on 10-24-2024 Urea nitrogen [Mass/Vol] 8 mg/dL 4-19 [facility] Sodium levelOrdered By: Zac Manriquez on 10-24-2024 Sodium [Moles/Vol] 132 mmol/L Low 133-145 [facility] Absolute lymphocyte countOrd ered By: Axel Lockwood on 10-23-2024 Lymphocytes Auto (Unsp spec) [#/Vol] 1.51 10*3/uL 0.83-4.51 [facility] Absolute neutrophil countOrd ered By: Axel Lockwood on 10-23-2024 Neutrophils (Bld) [#/Vol] 8.0 10*3/uL High 2.0-7.7 [facility] Automated lymphocyte count a s percentage of total leukocytesOrdered By: Axel Lockwood on 10-23-2024 Lymphocytes/100 WBC Auto (Unsp spec) 13.7 % Low 19-41 [facility] Basic Metabolic Profile (BMP )on 10-23-2024 BUN/CRE 10.2 RATIO Normal 10-20 [facility] Comment on above: Performed By: #### L 500.2500 #### [facility] [address] [place], [address] Calcium [Mass/Vol] 8.9 mg/dL Normal 7.6-11.0 [facility] Comment on above: Performed By: #### L 500.2500 #### [facility] [address] [place], [address] Chloride [Moles/Vol] 95 mmol/L Low 98-108 [facility] Comment on above: Performed By: #### L 500.2500 #### [facility] [address] [place], [address] CO2 [Moles/Vol] 22.0 mmol/L Normal 21.0-32.0 [facility] Comment on above: Performed By: #### L 500.2500 #### [facility] [address] [place], [address] Creatinine [Mass/Vol] 0.92 mg/dL Normal 0.70-1.20 [facility] Comment on above: Performed By: #### L 500.2500 #### [facility] [address] [place], [address] ECRCL 41.59 ml/min Low 50-250 [facility] Comment on above: Performed By: #### L 500.2500 #### [facility] [address] [place], [address] GAP 12 Normal 5-15 [facility] Comment on above: Performed By: #### L 500.2500 #### [facility] [address] [place], [address] GFR/1.73 sq M.predicted among non-blacks MDRD (S/P/Bld) [Vol rate/Area] 61 mL/min/{1.73_m2} Normal >60 [facility] Comment on above: Result Comment: mL/m in/1.73m2 CKD-EPI Creatinine Equation (2020) Performed By: #### L 500.2500 #### [facility] [address] [place], [address] Glucose [Mass/Vol] 240 mg/dL High 70-99 [facility] Comment on above: Performed By: #### L 500.2500 #### [facility] [address] [place], [address] Potassium [Moles/Vol] 4.4 mmol/L Normal 3.3-5.1 [facility] Comment on above: Performed By: #### L 500.2500 #### [facility] [address] [place], [address] Sodium [Moles/Vol] 129 mmol/L Low 133-145 [facility] Comment on above: Performed By: #### L 500.2500 #### [facility] [address] [place], [address] Urea nitrogen [Mass/Vol] 9 mg/dL Normal 4-19 [facility] Comment on above: Performed By: #### L [id number] #### [facility] [address] [place], [address] BUN/CRE 11.3 RATIO Normal 10-20 [facility] Comment on above: Performed By: #### L 501.080 #### [facility] [address] [place], [address] Calcium [Mass/Vol] 9.0 mg/dL Normal 7.6-11.0 [facility] Comment on above: Performed By: #### L 501.080 #### [facility] [address] [place], [address] Chloride [Moles/Vol] 94 mmol/L Low 98-108 [facility] Comment on above: Performed By: #### L 501.080 #### [facility] [address] [place], [address] CO2 [Moles/Vol] 21.8 mmol/L Normal 21.0-32.0 [facility] Comment on above: Performed By: #### L 501.080 #### [facility] [address] [place], [address] Creatinine [Mass/Vol] 0.96 mg/dL Normal 0.70-1.20 [facility] Comment on above: Performed By: #### L 501.080 #### [facility] [address] [place], [address] ECRCL 39.85 ml/min Low 50-250 [facility] Comment on above: Performed By: #### L 501.080 #### [facility] [address] [place], [address] GAP 13 Normal 5-15 [facility] Comment on above: Performed By: #### L 501.080 #### [facility] [address] [place], [address] GFR/1.73 sq M.predicted among non-blacks MDRD (S/P/Bld) [Vol rate/Area] 58 mL/min/{1.73_m2} Low >60 [facility] Comment on above: Result Comment: mL/m in/1.73m2 CKD-EPI Creatinine Equation (2020) Performed By: #### L 501.080 #### [facility] [address] [place], [address] Glucose [Mass/Vol] 168 mg/dL High 70-99 [facility] Comment on above: Performed By: #### L 501.080 #### [facility] [address] [place], [address] Potassium [Moles/Vol] 4.0 mmol/L Normal 3.3-5.1 [facility] Comment on above: Performed By: #### L 501.080 #### [facility] [address] [place], [address] Sodium [Moles/Vol] 128 mmol/L Low 133-145 [facility] Comment on above: Performed By: #### L 501.080 #### [facility] [address] [place], [address] Urea nitrogen [Mass/Vol] 11 mg/dL Normal 4-19 [facility] Comment on above: Performed By: #### L 501.080 #### [facility] [address] [place], [address] Basophil percentageOrdered B y: Axel Lockwood on 10-23-2024 Basophils/100 WBC (Bld) 0.5 % 0-1 [facility] Bedside Glucoseon 10-23-2024 FINGERSTICK GLU 195 mg/dL High 74-106 [facility] Comment on above: Result Comment: RAKESH LONGO OF PATIENT CARE PER NURSING PROTOCOL Performed By: #### L 501.080 #### [facility] [address] [place], [address] FINGERSTICK GLU 206 mg/dL High 74-106 [facility] Comment on above: Result Comment: RAKESH GEMENT OF PATIENT CARE PER NURSING PROTOCOL Performed By: #### L 501.080 #### [facility] [address] [place], [address] FINGERSTICK GLU 242 mg/dL High 74-106 [facility] Comment on above: Result Comment: RAKESH GEMENT OF PATIENT CARE PER NURSING PROTOCOL Performed By: #### L 501.080 #### [facility] [address] [place], [address] FINGERSTICK GLU 170 mg/dL High 74-106 [facility] Comment on above: Result Comment: RAKESH GEMENT OF PATIENT CARE PER NURSING PROTOCOL Performed By: #### L 501.080 #### [facility] [address] [place], [address] CBC W/Diff, Automatedon 05-3 -2024 Absolute Lymph 1.51 X10 3/uL Normal 0.83-4.51 [facility] Comment on above: Performed By: #### L 501.080 #### [facility] [address] [place], [address] Absolute Neut 8.0 X10 3/uL High 2.0-7.7 [facility] Comment on above: Performed By: #### L 501.080 #### [facility] [address] [place], [address] Basophils/100 WBC (Bld) 0.5 % Normal 0-1 [facility] Comment on above: Performed By: #### L 501.080 #### [facility] [address] [place], [address] Eosinophils/100 WBC (Bld) 0.5 % Normal 0-5 [facility] Comment on above: Performed By: #### L 501.080 #### [facility] [address] [place], [address] Erythrocyte distribution width (RBC) [Ratio] 12.5 % Normal 11.6-14.6 [facility] Comment on above: Performed By: #### L 501.080 #### [facility] [address] [place], [address] Hematocrit (Bld) [Volume fraction] 31.5 % Low 37-47 [facility] Comment on above: Performed By: #### L 501.080 #### [facility] [address] [place], [address] Hemoglobin (Bld) [Mass/Vol] 10.9 g/dL Low 12.0-15.0 [facility] Comment on above: Performed By: #### L 501.080 #### [facility] [address] [place], [address] IG% 0.800 Normal 0.0-0.9 [facility] Comment on above: Result Comment: IG% - Immature Granulocytes (promyelocytes, myelocytes and metamyelocytes) > 1% indicates that a LEFT SHIFT is Present. Performed By: #### L 501.080 #### [facility] [address] [place], [address] Lymphocytes/100 WBC (Bld) 13.7 % Low 19-41 [facility] Comment on above: Performed By: #### L 501.080 #### [facility] [address] [place], [address] MCH (RBC) [Entitic mass] 30.1 pg Normal 27.0-32.0 [facility] Comment on above: Performed By: #### L 501.080 #### [facility] [address] [place], [address] MCHC (RBC) [Mass/Vol] 34.6 g/dL Normal 32-36 [facility] Comment on above: Performed By: #### L 501.080 #### [facility] [address] [place], [address] MCV (RBC) [Entitic vol] 87.0 fL Normal 81-99 [facility] Comment on above: Performed By: #### L 501.080 #### [facility] [address] [place], [address] Monocytes/100 WBC (Bld) 12.0 % High 0-10 [facility] Comment on above: Performed By: #### L 501.080 #### [facility] [address] [place], [address] Neutrophils/100 WBC (Bld) 72.5 % High 47-70 [facility] Comment on above: Performed By: #### L 501.080 #### [facility] [address] [place], [address] Nucleated RBC (Bld) [#/Vol] 0 10*3/uL Normal 0-5 [facility] Comment on above: Performed By: #### L 501.080 #### [facility] [address] [place], [address] Platelet mean volume (Bld) [Entitic vol] 10.0 fL Normal 6.2-12.0 [facility] Comment on above: Performed By: #### L 501.080 #### [facility] [address] [place], [address] Platelets (Bld) [#/Vol] 376 10*3/uL Normal 150-450 [facility] Comment on above: Performed By: #### L 501.080 #### [facility] [address] [place], [address] RBC (Bld) [#/Vol] 3.62 10*6/uL Low 4.2-5.4 [facility] Comment on above: Performed By: #### L 501.080 #### [facility] [address] [place], [address] RDW SD 40.0 fl Normal 35.1-43.9 [facility] Comment on above: Performed By: #### L 501.080 #### [facility] [address] [place], [address] WBC (Bld) [#/Vol] 11.0 10*3/uL Normal 4.4-11.0 [facility] Comment on above: Performed By: #### L 501.080 #### [facility] [address] [place], [address] Eosinophil percentageOrdered By: Axel Lockwood on 10-23-2024 Eosinophils/100 WBC (Bld) 0.5 % 0-5 [facility] Erythrocyte distribution wid th ratioOrdered By: Axel Lockwood on 10-23-2024 Erythrocyte distribution width (RBC) [Ratio] 12.5 % 11.6-14.6 [facility] Erythrocyte distribution wid th standard deviationOrdered By: Axel Lockwood on 10-23-2024 Erythrocyte distribution width (RBC) [Ratio] 40.0 fl 35.1-43.9 [facility] Hematocrit Auto (Bld) [Volum e fraction]Ordered By: Axel Lockwood on 10-23-2024 Hematocrit (Bld) [Volume fraction] 31.5 % Low 37-47 [facility] Hemoglobin measurementOrdere d By: Axel Lockwood on 10-23-2024 Hemoglobin (Bld) [Mass/Vol] 10.9 g/dL Low 12.0-15.0 [facility] Immature granulocytes/100 WB C Auto (Bld)Ordered By: Axel Lockwood on 10-23-2024 Immature granulocytes/100 WBC (Bld) 0.800 % 0.0-0.9 [facility] Comment on above: IG% - Immature Granu locytes (promyelocytes, myelocytes and metamyelocytes) > 1% indicates that a LEFT SHIFT is Present. MCV (mean corpuscular volume ) determinationOrdered By: Axel Lockwood on 10-23-2024 MCV (RBC) [Entitic vol] 87.0 fL 81-99 [facility] Mean corpuscular hemoglobin (MCH) determinationOrdered By: Axel Lockwood on 10-23-2024 MCH (RBC) [Entitic mass] 30.1 pg 27.0-32.0 [facility] Mean corpuscular hemoglobin concentration (MCHC) determinationOrdered By: Axel Lockwood on 10-23-2024 MCHC (RBC) [Mass/Vol] 34.6 g/dL 32-36 [facility] Mean platelet volume determi nationOrdered By: Axel Lockwood on 10-23-2024 Platelet mean volume (Bld) [Entitic vol] 10.0 fL 6.2-12.0 [facility] Monocyte percentageOrdered B y: Axel Lockwood on 10-23-2024 Monocytes/100 WBC (Bld) 12.0 % High 0-10 [facility] Neutrophil percentageOrdered By: Axel Lockwood on 10-23-2024 Neutrophils/100 WBC (Bld) 72.5 % High 47-70 [facility] Nucleated red blood cell per centageOrdered By: Axel Lockwood on 10-23-2024 Nucleated RBC/100 WBC (Bld) [Ratio] 0 % 0-5 [facility] Platelet countOrdered By: Aurea Lockwood on 10-23-2024 Platelets (Bld) [#/Vol] 376 10*3/uL 150-450 [facility] RBC Auto (Bld) [#/Vol]Ordere d By: Axel Lockwood on 10-23-2024 RBC (Bld) [#/Vol] 3.62 10*6/uL Low 4.2-5.4 [facility] White blood cell (WBC) count Ordered By: Axel Lockwood on 10-23-2024 WBC (Bld) [#/Vol] 11.0 10*3/uL 4.4-11.0 [facility] 12 Lead EKGon 10-22-2024 12 Lead EKG [facility] Cardiovascular Services [address] [place] [address] 12 Lead EKG 10/22/24 1753 MR#: [id number] Acct: [id number] Name: CHELSEA MOODY Rep #: [id number] : 1940 83 From: Osman Wright MD Attending Dr: Dr. Familia Manriquez DO Status : DIS IN Ordering Dr: Jony Lambert DO Date: 10/22/24 Location: [facility] Sex: F C Admitted: 10/22/24 Test Reason : ABN LABS Blood Pressure : */* mmHG Vent. Rate : 85 BPM Atrial Rate : 85 BPM P-R Int : 180 ms QRS Dur : 80 ms QT Int : 358 ms P-R-T Axes : 3 43 48 degrees QTcB Int : 426 ms Normal sinus rhythm Normal ECG Confirmed by Osman Wright ([id number]), editor sound LAURY PERSAUD ([id number]) on 10/25/2024 10:50:00 AM Referred By: Confirmed By: Osman Wright 10/25/24 1050 Date Osman Wright MD CC: Dr. Familia Manriquez DO; Dr. Angela High MD; Dr. Jony Lambert DO Signed Normal [facility] Absolute lymphocyte countOrd ered By: Jony Lambert on 10-22-2024 Lymphocytes Auto (Unsp spec) [#/Vol] 1.59 10*3/uL 0.83-4.51 [facility] Absolute lymphocyte countOrd ered By: Sonali Haro on 10-22-2024 Lymphocytes Auto (Unsp spec) [#/Vol] 1.48 10*3/uL 0.83-4.51 [facility] Absolute neutrophil countOrd ered By: Jony Lambert on 10-22-2024 Neutrophils (Bld) [#/Vol] 11.4 10*3/uL High 2.0-7.7 [facility] Absolute neutrophil countOrd ered By: Sonali Haro on 10-22-2024 Neutrophils (Bld) [#/Vol] 10.9 10*3/uL High 2.0-7.7 [facility] Anion gap in Serum or Plasma Ordered By: Remus Lambert on 10-22-2024 Anion gap [Moles/Vol] 16 mmol/L High 10-07 [facility] Anion gap in Serum or Plasma Ordered By: Sonali Haro on 10-22-2024 Anion gap [Moles/Vol] 15 mmol/L 10-07 [facility] Automated lymphocyte count a s percentage of total leukocytesOrdered By: Jony Lambert on 10-22-2024 Lymphocytes/100 WBC Auto (Unsp spec) 10.8 % Low [facility] Automated lymphocyte count a s percentage of total leukocytesOrdered By: Sonali Haro on 10-22-2024 Lymphocytes/100 WBC Auto (Unsp spec) 10.7 % Low [facility] BUN/creatinine ratioOrdered By: Jony Lambert on 10-22-2024 Urea nitrogen/Creatinine [Mass ratio] 11.5 mg/mg 03-14 [facility] BUN/creatinine ratioOrdered By: Sonali Haro on 10-22-2024 Urea nitrogen/Creatinine [Mass ratio] 11.8 mg/mg 03-14 [facility] Basic Metabolic Profile (BMP )on 10-22-2024 BUN/CRE 11.5 RATIO Normal 03-14 [facility] Comment on above: Performed By: #### L 100.0100, L500.2500 #### [facility] [address] [place], [place], [address] ECRCL 30.51 ml/min Low 50-250 [facility] Comment on above: Performed By: #### L 100.0100, L500.2500 #### [facility] [address] [place], [address] GAP 16 High 10-07 [facility] Comment on above: Performed By: #### L 100.0100, L500.2500 #### [facility] [address] [place], [address] Potassium [Moles/Vol] 4.3 mmol/L Normal 3.3-5.1 [facility] Comment on above: Performed By: #### L 100.0100, L500.2500 #### [facility] [address] [place], [address] Basophil percentageOrdered B y: Remus Ungkrystle on 10-22-2024 Basophils/100 WBC (Bld) 0.4 % 0-1 [facility] Bedside Glucoseon 10-22-2024 FINGERSTICK GLU 199 mg/dL High 74-106 [facility] Comment on above: Result Comment: RAKESH LONGO OF PATIENT CARE PER NURSING PROTOCOL Performed By: #### L 501.080 #### [facility] [address] [place], [address] Bilirubin Test strip Ql (U)O rdered By: Jony Lambert on 10-22-2024 Bilirubin Ql (U) Negative Negative [facility] Blood manual differential co mment interpretation (narrative result)Ordered By: Jony Lambert on 10-22-2024 Manual differential comment Uziel (Bld) [Interp] SCANNED [facility] CBC W/Diff, Automatedon 09-25 PLT EST ADEQUATE Normal ADEQ [facility] Comment on above: Performed By: #### L 100.0100, L500.2500 #### [facility] [address] [place], [address] SMEAR COMMENT SCANNED Normal [facility] Comment on above: Performed By: #### L 100.0100, L500.2500 #### [facility] [address] [place], [address] CTA Head AND Neck W/ Contras ton 10-22-2024 CTA Head AND Neck W/ Contrast [facility] Imaging Services [address] [place] [address] CTA Head AND Neck W/ Contrast MR#: [id number] Acct: [id number] Name: CHELSEA MOODY Rep #: [id number] : 1940 F 83 From: Scott Lee MD PCP: Dr. Angela High MD Status: REG CLI Study: CTA Head AND Neck W/ Contrast Date of Exam: Exam# [id number] Ordering Dr: Sonali Haro PROCEDURE: CTA HEAD [...] RIGHT Vertebral: Patent. LEFT Vertebral: Patent. Anatomy: [place] [facility] [place] anatomy is normal. Aneurysm or [...] characterization with ultrasound is recommended. Reading Location: [id number] CC: DAVI Green; Dr. Angela Hgih MD [employer]: Signed Normal [facility] Carbon dioxide, total [Moles /volume] in Central venous bloodOrdered By: Jony Lambert on 10-22-2024 CO2 [Moles/Vol] 20.7 mmol/L Low 21.0-32.0 [facility] Comment on above: Performed By: #### L 100.0100, L500.2500 #### [facility] Laboratory [address] [place], [address] Carbon dioxide, total [Moles /volume] in Central venous bloodOrdered By: Sonali Haro on 10-22-2024 CO2 [Moles/Vol] 18.7 mmol/L Low 21.0-32.0 [facility] Chloride assayOrdered By: Anne Lambert on 10-22-2024 Chloride [Moles/Vol] 82 mmol/L Low 98-108 [facility] Comment on above: Performed By: #### L 100.0100, L500.2500 #### [facility] [address] [place], [address] Chloride assayOrdered By: Aries Haro on 10-22-2024 Chloride [Moles/Vol] 85 mmol/L Low 98-108 [facility] Emergency Department Summary on 10-22-2024 Emergency Department Summary [facility] Medical Records Department [address] [place] [address] Emergency Department Summary 10/22/24 MR#: [id number] Acct: [id number] Name: CHELSEA MOODY Rep #: [id number] : 1940 83 From: Jony Lambert DO PCP: Dr. Angela High MD Status:ADM IN Location: [place] [address] HPI History of Present Illness Chief Complaint: [...] is eating less but still drinking fluids [facility] Medical History (Updated 10/22/24 @ 19:13 by [...] (more content not included)... Normal [facility] Eosinophil percentageOrdered By: Jony Lambert on 10-22-2024 Eosinophils/100 WBC (Bld) 0.1 % 0-5 [facility] Eosinophil percentageOrdered By: Sonali Haro on 10-22-2024 Eosinophils/100 WBC (Bld) 0.2 % 0-5 [facility] Erythrocyte distribution wid th ratioOrdered By: Jony Lambert on 10-22-2024 Erythrocyte distribution width (RBC) [Ratio] 12.6 % 11.6-14.6 [facility] Erythrocyte distribution wid th standard deviationOrdered By: Jony Lambert on 10-22-2024 Erythrocyte distribution width (RBC) [Ratio] 40.0 fl 35.1-43.9 [facility] Glomerular filtration rate ( GFR) estimation/1.73 sq m using serum, plasma, or whole bOrdered By: Jony Moonkrystle on 10-22-2024 GFR/1.73 sq M.predicted among non-blacks MDRD (S/P/Bld) [Vol rate/Area] 42 mL/min/{1.73_m2} Low >60 [facility] Comment on above: mL/min/1.73m2 CKD-EP I Creatinine Equation (2020) Result Comment: mL/m in/1.73m2 CKD-EPI Creatinine Equation (2020) Performed By: #### L 100.0100, L500.2500 #### [facility] [address] [place], [place], [address] Glomerular filtration rate ( GFR) estimation/1.73 sq m using serum, plasma, or whole bOrdered By: Sonali Haro on 10-22-2024 GFR/1.73 sq M.predicted among non-blacks MDRD (S/P/Bld) [Vol rate/Area] 45 mL/min/{1.73_m2} Low >60 [facility] Comment on above: mL/min/1.73m2 CKD-EP I Creatinine Equation (2020) H AND P Exam - Hospitaliston 10-22-2024 H&P Exam - Hospitalist [facility] Medical Records Department [address] [place] [address] H P Exam - Hospitalist 10/22/242010 MR#: [id number] Acct: [id number] Name: CHELSEA MOODY Ravinder Rep #: [id number] : 1940 83 From: Axel Lockwood MD PCP: Dr. Angela High MD Status:ADM IN Location: [address] HPI - General General Date of [...] a stroke back in August. [facility] Medical History Wears glasses Wears dentures Bruising [...] (more content not included)... Normal [facility] Hematocrit Auto (Bld) [Volum e fraction]Ordered By: Jony Lambert on 10-22-2024 Hematocrit (Bld) [Volume fraction] 32.5 % Low 37-47 [facility] Hematocrit Auto (Bld) [Volum e fraction]Ordered By: Sonali Haro on 10-22-2024 Hematocrit (Bld) [Volume fraction] 33.8 % Low 37-47 [facility] Hemoglobin measurementOrdere d By: Jony Lambert on 10-22-2024 Hemoglobin (Bld) [Mass/Vol] 11.3 g/dL Low 12.0-15.0 [facility] Hemoglobin measurementOrdere d By: Sonali Haro on 10-22-2024 Hemoglobin (Bld) [Mass/Vol] 11.7 g/dL Low 12.0-15.0 [facility] Immature granulocytes/100 WB C Auto (Bld)Ordered By: Jony Lambert on 10-22-2024 Immature granulocytes/100 WBC (Bld) 0.600 % 0.0-0.9 [facility] Comment on above: IG% - Immature Granu locytes (promyelocytes, myelocytes and metamyelocytes) > 1% indicates that a LEFT SHIFT is Present. Ketones Test strip Ql (U)Ord ered By: Jony Lambert on 10-22-2024 Ketones Ql (U) Negative Negative [facility] MCV (mean corpuscular volume ) determinationOrdered By: Jony Lambert on 10-22-2024 MCV (RBC) [Entitic vol] 87.1 fL 81-99 [facility] MCV (mean corpuscular volume ) determinationOrdered By: Sonali Haro on 10-22-2024 MCV (RBC) [Entitic vol] 86.9 fL 81-99 [facility] Mean corpuscular hemoglobin (MCH) determinationOrdered By: Jony Lambert on 10-22-2024 MCH (RBC) [Entitic mass] 30.3 pg 27.0-32.0 [facility] Mean corpuscular hemoglobin (MCH) determinationOrdered By: Sonali Haro on 10-22-2024 MCH (RBC) [Entitic mass] 30.1 pg 27.0-32.0 [facility] Mean corpuscular hemoglobin concentration (MCHC) determinationOrdered By: Jony Lambert on 10-22-2024 MCHC (RBC) [Mass/Vol] 34.8 g/dL -36 [facility] Mean corpuscular hemoglobin concentration (MCHC) determinationOrdered By: Sonali Haro on 10-22-2024 MCHC (RBC) [Mass/Vol] 34.6 g/dL -36 [facility] Mean platelet volume determi nationOrdered By: Jony Lambert on 10-22-2024 Platelet mean volume (Bld) [Entitic vol] 10.0 fL 6.2-12.0 [facility] Mean platelet volume determi nationOrdered By: Sonali Haro on 10-22-2024 Platelet mean volume (Bld) [Entitic vol] 9.8 fL 6.2-12.0 [facility] Microscopic analysis of urin e for red blood cells (RBC)Ordered By: Jony Lambert on 10-22-2024 Microscopic analysis of urine for red blood cells (RBC) 0-5 SEEN /hpf 0-5 [facility] Monocyte percentageOrdered B y: Jony Lambert on 10-22-2024 Monocytes/100 WBC (Bld) 10.3 % High 0-10 [facility] Monocyte percentageOrdered B y: Sonali Haro on 10-22-2024 Monocytes/100 WBC (Bld) 9.3 % 0-10 [facility] Mucus LM Ql (Urine sed)Order ed By: Jony Lambert on 10-22-2024 Mucus Ql (Urine sed) 0 SEEN /hpf [facility] Neutrophil percentageOrdered By: Jony Lambert on 10-22-2024 Neutrophils/100 WBC (Bld) 77.8 % High 47-70 [facility] Neutrophil percentageOrdered By: Sonali Haro on 10-22-2024 Neutrophils/100 WBC (Bld) 78.8 % High 47-70 [facility] Nitrite Test strip Ql (U)Ord ered By: Jony Lambert on 10-22-2024 Nitrite Ql (U) Negative Negative [facility] Nucleated red blood cell per centageOrdered By: Jony Lambert on 10-22-2024 Nucleated RBC/100 WBC (Bld) [Ratio] 0 % 0-5 [facility] Platelet countOrdered By: Anne Lambert on 10-22-2024 Platelets (Bld) [#/Vol] 399 10*3/uL 150-450 [facility] Platelet countOrdered By: Aries Haro on 10-22-2024 Platelets (Bld) [#/Vol] 397 10*3/uL 150-450 [facility] Platelet estimateOrdered By: Jony Lambert on 10-22-2024 Platelets LM Ql (Bld) ADEQUATE ADEQ [facility] Potassium measurement (mass/ volume)Ordered By: Jony Lambert on 10-22-2024 Potassium (Unsp spec) [Mass/Vol] 4.3 mmol/L 3.3-5.1 [facility] Protein Test strip Ql (U)Ord ered By: Jony Lambert on 10-22-2024 Protein Ql (U) 15 mg/dl High Negative [facility] RBC Auto (Bld) [#/Vol]Ordere d By: Jony Lambert on 10-22-2024 RBC (Bld) [#/Vol] 3.73 10*6/uL Low 4.2-5.4 [facility] RBC Auto (Bld) [#/Vol]Ordere d By: Sonali Haro on 10-22-2024 RBC (Bld) [#/Vol] 3.89 10*6/uL Low 4.2-5.4 [facility] Serum creatinine measurement (mass/volume)Ordered By: Jony Lambert on 10-22-2024 Creatinine [Mass/Vol] 1.26 mg/dL High 0.70-1.20 [facility] Comment on above: Performed By: #### L 100.0100, L500.2500 #### [facility] Laboratory [address] [place], [address] Serum creatinine measurement (mass/volume)Ordered By: Sonali Haro on 10-22-2024 Creatinine [Mass/Vol] 1.19 mg/dL 0.70-1.20 [facility] Serum glucose measurement (m ass/volume)Ordered By: Jony Lambert on 10-22-2024 Glucose [Mass/Vol] 160 mg/dL High 70- [facility] Comment on above: Performed By: #### L 100.0100, L500.2500 #### [facility] [address] [place], [address] Serum glucose measurement (m ass/volume)Ordered By: Sonali Haro on 10-22-2024 Glucose [Mass/Vol] 165 mg/dL High 70-99 [facility] Serum or plasma calcium alfred urement (mass/volume)Ordered By: Jony Lambert on 10-22-2024 Calcium [Mass/Vol] 9.2 mg/dL Normal 7.6-11.0 [facility] Comment on above: Performed By: #### L 100.0100, L500.2500 #### [facility] [address] [facility] [address] Serum or plasma calcium alfred urement (mass/volume)Ordered By: Sonali Haro on 10-22-2024 Calcium [Mass/Vol] 9.4 mg/dL 7.6-11.0 [facility] Serum or plasma urea nitroge n measurement (mass/volume)Ordered By: Jony Lambert on 10-22-2024 Urea nitrogen [Mass/Vol] 15 mg/dL Normal - [facility] Comment on above: Performed By: #### L 100.0100, L500.2500 #### [facility] [address] [facility] [address] Serum or plasma urea nitroge n measurement (mass/volume)Ordered By: Sonali Haro on 10-22-2024 Urea nitrogen [Mass/Vol] 14 mg/dL - [facility] Sodium levelOrdered By: Moon Lambert on 10-22-2024 Sodium [Moles/Vol] 119 mmol/L Low 133-145 [facility] Comment on above: Critical Result(s) C alled at: by: Results read back by same. Critical Result(s) C alled to: MARTHA CARLISLE (BMS.BVS) by Quin Results read back by same. Result Comment: Crit ical Result(s) Called at: by:??Results read back by same. Performed By: #### L 100.0100, L500.2500 #### [facility] [address] [place], [address] Squamous epithelial cells de tection in urine sediment by light microscopyOrdered By: Jony Lambert on 10-22-2024 Epithelial cells.squamous LM Ql (Urine sed) 0 SEEN /hpf 5-10 [facility] Surgery Visit Reporton 10-22 Surgery Visit Report [facility] [address] [place] [address] OFFICE VISIT Date of Service: 10/22/24 MR#: [id number] Acct: [id number] Name: CHELSEA MOODY Rep #: [id number] : 1940 Provider: DAVI Green Age/Sex: 83/F [facility] Status: Signed Intake Vital Signs 09/01/24 14:52 [...] Difficulty swallowing R13.10 Weakness R53.1 [facility] Medical History (Updated 10/22/24 @ 14:04 by [...] (more content not included)... Normal [facility] Urinalysis, Completeon 10-22 RBC 0-5 SEEN Normal 0-5 [facility] Comment on above: Order Comment: CLEAN CATCH Performed By: #### L 400.0001 #### [facility] [address] [place], [address] WBC 0-5 SEEN Normal 0-5 [facility] Comment on above: Order Comment: CLEAN CATCH Performed By: #### L 400.0001 #### [facility] [address] [facility] [place], [address] BACTERIA 0 SEEN Normal None Seen [facility] Comment on above: Order Comment: CLEAN CATCH Performed By: #### L 400.0001 #### [facility] [address] [place], [address] EPI,SQUAMOUS 0 SEEN Normal 5-10 [facility] Comment on above: Order Comment: CLEAN CATCH Performed By: #### L 400.0001 #### [facility] [address] [place], [address] Mucus Ql (Urine sed) 0 SEEN Normal [facility] Comment on above: Order Comment: CLEAN CATCH Performed By: #### L 400.0001 #### [facility] [address] [place], [address] Urine clarityOrdered By: Emily us Fausto on 10-22-2024 Clarity (U) Clear Clear [facility] Urine color determinationOrd ered By: Jony Lambert on 10-22-2024 Color (U) Straw Yellow [facility] Urine glucose detectionOrder ed By: Jony Lambert on 10-22-2024 Glucose Ql (U) Normal mg/dl Normal [facility] Urine leukocyte esterase det ection by dipstickOrdered By: Jony Lambert on 10-22-2024 Leukocyte esterase Test strip Ql (U) Negative Negative [facility] Urine pHOrdered By: Jony Un gur on 10-22-2024 pH (U) 6.0 [pH] 5.0 - 8.0 [facility] Urine sediment bacteria coun t by microscopy (number/high power field)Ordered By: Jony Lambert on 10-22-2024 Bacteria LM.HPF (Urine sed) [#/Area] 0 /[HPF] None Seen [facility] Urine specific gravity measu rementOrdered By: Jony Lambert on 10-22-2024 Specific gravity (U) [Rel density] 1.005 1.002-1.030 [facility] Urine urobilinogen measureme ntOrdered By: Remus Lambert on 10-22-2024 Urobilinogen Ql (U) Normal mg/dl Normal [facility] White blood cell (WBC) count Ordered By: Jony Lambert on 10-22-2024 WBC (Bld) [#/Vol] 14.7 10*3/uL High 4.4-11.0 [facility] White blood cell (WBC) count Ordered By: Sonali Haro on 10-22-2024 WBC (Bld) [#/Vol] 13.9 10*3/uL High 4.4-11.0 [facility] White blood cell countOrdere d By: Jony Lambert on 10-22-2024 White blood cell count 0-5 SEEN /hpf 0-5 [facility] CNOVon 10-11-2024 CNOV Office Visit (INTMWS ) CHELSEA MOODY ([id number]) 1940 F IPA Date Time Provider Department [...] mL) O (more content not included)... Normal [facility] Absolute lymphocyte countOrd ered By: Ugo Rogel on 10-06-2024 Lymphocytes Auto (Unsp spec) [#/Vol] 1.41 10*3/uL 0.83-4.51 [facility] Absolute neutrophil countOrd ered By: Ugo Rogel on 10-06-2024 Neutrophils (Bld) [#/Vol] 11.4 10*3/uL High 2.0-7.7 [facility] Automated lymphocyte count a s percentage of total leukocytesOrdered By: Ugo Rogel on 10-06-2024 Lymphocytes/100 WBC Auto (Unsp spec) 10.0 % Low 19-41 [facility] Basophil percentageOrdered B y: Ugo Rogel on 10-06-2024 Basophils/100 WBC (Bld) 0.2 % 0-1 [facility] Bedside Glucoseon 10-06-2024 FINGERSTICK GLU 208 mg/dL High 74-106 [facility] Comment on above: Result Comment: RAKESH LONGO OF PATIENT CARE PER NURSING PROTOCOL Performed By: #### L 501.080 #### [facility] [address] [place], [address] FINGERSTICK GLU 301 mg/dL High 74-106 [facility] Comment on above: Result Comment: RAKESH GEMENT OF PATIENT CARE PER NURSING PROTOCOL Performed By: #### L 501.080 #### [facility] [address] [place], [address] FINGERSTICK GLU 373 mg/dL High 74-106 [facility] Comment on above: Result Comment: RAKESH GEMENT OF PATIENT CARE PER NURSING PROTOCOL Performed By: #### L 501.080 #### [facility] [address] [place], [address] CBC W/Diff, Automatedon 05-1 -2024 Absolute Lymph 1.41 X10 3/uL Normal 0.83-4.51 [facility] Comment on above: Performed By: #### L 501.080 #### [facility] [address] [place], [address] Absolute Neut 11.4 X10 3/uL High 2.0-7.7 [facility] Comment on above: Performed By: #### L 501.080 #### [facility] [address] [place], [address] Basophils/100 WBC (Bld) 0.2 % Normal 0-1 [facility] Comment on above: Performed By: #### L 501.080 #### [facility] [address] [place], [address] Eosinophils/100 WBC (Bld) 0.1 % Normal 0-5 [facility] Comment on above: Performed By: #### L 501.080 #### [facility] [address] [place], [address] Erythrocyte distribution width (RBC) [Ratio] 13.4 % Normal 11.6-14.6 [facility] Comment on above: Performed By: #### L 501.080 #### [facility] [address] [place], [address] Hematocrit (Bld) [Volume fraction] 30.5 % Low 37-47 [facility] Comment on above: Performed By: #### L 501.080 #### [facility] [address] [place], [address] Hemoglobin (Bld) [Mass/Vol] 10.6 g/dL Low 12.0-15.0 [facility] Comment on above: Performed By: #### L 501.080 #### [facility] [address] [place], [address] IG% 0.600 Normal 0.0-0.9 [facility] Comment on above: Result Comment: IG% - Immature Granulocytes (promyelocytes, myelocytes and metamyelocytes) > 1% indicates that a LEFT SHIFT is Present. Performed By: #### L 501.080 #### [facility] [address] [place], [address] Lymphocytes/100 WBC (Bld) 10.0 % Low 19-41 [facility] Comment on above: Performed By: #### L 501.080 #### [facility] [address] [place], [address] MCH (RBC) [Entitic mass] 30.7 pg Normal 27.0-32.0 [facility] Comment on above: Performed By: #### L 501.080 #### [facility] [address] [place], [address] MCHC (RBC) [Mass/Vol] 34.8 g/dL Normal 32-36 [facility] Comment on above: Performed By: #### L 501.080 #### [facility] [address] [place], [address] MCV (RBC) [Entitic vol] 88.4 fL Normal 81-99 [facility] Comment on above: Performed By: #### L 501.080 #### [facility] [address] [place], [address] Monocytes/100 WBC (Bld) 8.5 % Normal 0-10 [facility] Comment on above: Performed By: #### L 501.080 #### [facility] [address] [place], [address] Neutrophils/100 WBC (Bld) 80.6 % High 47-70 [facility] Comment on above: Performed By: #### L 501.080 #### [facility] [address] [place], [address] Nucleated RBC (Bld) [#/Vol] 0 10*3/uL Normal 0-5 [facility] Comment on above: Performed By: #### L 501.080 #### [facility] [address] [place], [address] Platelet mean volume (Bld) [Entitic vol] 10.9 fL Normal 6.2-12.0 [facility] Comment on above: Performed By: #### L 501.080 #### [facility] Laboratory [address] [place], [address] Platelets (Bld) [#/Vol] 301 10*3/uL Normal 150-450 [facility] Comment on above: Performed By: #### L 501.080 #### [facility] [address] [place], [address] RBC (Bld) [#/Vol] 3.45 10*6/uL Low 4.2-5.4 [facility] Comment on above: Performed By: #### L 501.080 #### [facility] [address] [place], [address] RDW SD 43.5 fl Normal 35.1-43.9 [facility] Comment on above: Performed By: #### L 501.080 #### [facility] [address] [place], [address] WBC (Bld) [#/Vol] 14.2 10*3/uL High 4.4-11.0 [facility] Comment on above: Performed By: #### L 501.080 #### [facility] [address] [place], [address] Eosinophil percentageOrdered By: Ugo Rogel on 10-06-2024 Eosinophils/100 WBC (Bld) 0.1 % 0-5 [facility] Erythrocyte distribution wid th ratioOrdered By: Ugo Rogel on 10-06-2024 Erythrocyte distribution width (RBC) [Ratio] 13.4 % 11.6-14.6 [facility] Erythrocyte distribution wid th standard deviationOrdered By: Ugotracee Rogel on 10-06-2024 Erythrocyte distribution width (RBC) [Ratio] 43.5 fl 35.1-43.9 [facility] Glucose measurement at [facility] deOrdered By: Ugo Rogel on 10-06-2024 Glucose [Mass/Vol] 208 mg/dL High 74-106 [facility] Comment on above: MANAGEMENT OF PATIEN T CARE PER NURSING PROTOCOL Hematocrit Auto (Bld) [Volum e fraction]Ordered By: Ugo Rogel on 10-06-2024 Hematocrit (Bld) [Volume fraction] 30.5 % Low 37-47 [facility] Hemoglobin measurementOrdere d By: Ugo Rogel on 10-06-2024 Hemoglobin (Bld) [Mass/Vol] 10.6 g/dL Low 12.0-15.0 [facility] Immature granulocytes/100 WB C Auto (Bld)Ordered By: Ugo Rogel on 10-06-2024 Immature granulocytes/100 WBC (Bld) 0.600 % 0.0-0.9 [facility] Comment on above: IG% - Immature Granu locytes (promyelocytes, myelocytes and metamyelocytes) > 1% indicates that a LEFT SHIFT is Present. MCV (mean corpuscular volume ) determinationOrdered By: Ugo Rogel on 10-06-2024 MCV (RBC) [Entitic vol] 88.4 fL 81-99 [facility] Mean corpuscular hemoglobin (MCH) determinationOrdered By: Ugo Rogel on 10-06-2024 MCH (RBC) [Entitic mass] 30.7 pg 27.0-32.0 [facility] Mean corpuscular hemoglobin concentration (MCHC) determinationOrdered By: Ugo Rogel on 10-06-2024 MCHC (RBC) [Mass/Vol] 34.8 g/dL 32-36 [facility] Mean platelet volume determi nationOrdered By: Ugo Rogel on 10-06-2024 Platelet mean volume (Bld) [Entitic vol] 10.9 fL 6.2-12.0 [facility] Monocyte percentageOrdered B y: Ugo Rogel on 10-06-2024 Monocytes/100 WBC (Bld) 8.5 % 0-10 [facility] Neutrophil percentageOrdered By: Ugo Rogel on 10-06-2024 Neutrophils/100 WBC (Bld) 80.6 % High 47-70 [facility] Nucleated red blood cell per centageOrdered By: Ugo Rogel on 10-06-2024 Nucleated RBC/100 WBC (Bld) [Ratio] 0 % 0-5 [facility] Platelet countOrdered By: Barry Rogel on 10-06-2024 Platelets (Bld) [#/Vol] 301 10*3/uL 150-450 [facility] RBC Auto (Bld) [#/Vol]Ordere d By: Ugo Rogel on 10-06-2024 RBC (Bld) [#/Vol] 3.45 10*6/uL Low 4.2-5.4 [facility] White blood cell (WBC) count Ordered By: Ugo Rogel on 10-06-2024 WBC (Bld) [#/Vol] 14.2 10*3/uL High 4.4-11.0 [facility] ACT Activated Clotting Timeo n 10-05-2024 ACTk CLOT TIME 314 sec High 74-137 [facility] Comment on above: Performed By: #### L 501.080 #### [facility] Laboratory [facility] [address] [place], [place], [id number] ACTk CLOT TIME 141 sec High 74-137 [facility] Comment on above: Performed By: #### L 501.080 #### [facility] [address] [place], [address] Bedside Glucoseon 10-05-2024 FINGERSTICK GLU 408 mg/dL High 74-106 [facility] Comment on above: Result Comment: RAKESH GEMENT OF PATIENT CARE PER NURSING PROTOCOL Performed By: #### L 501.080 #### [facility] [address] [place], [address] FINGERSTICK GLU 239 mg/dL High 74-106 [facility] Comment on above: Result Comment: RAKESH GEMENT OF PATIENT CARE PER NURSING PROTOCOL Performed By: #### L 100.0100, L500.2500 #### [facility] [address] [place] [place], [address] MR/POSTOP.ANEon 10-05-2024 MR/POSTOP.[facility] Medical Records Department [address] [place] [address] Anesthesia Postop Eval I 10/05/24 1010 MR#: [id number] Acct: [id number] Name: CHELSEA MOODY Rep #: [id number] : 1940 83 From: Araceli Morejon PCP: Dr. Angela High MD Status:ADM IN Y Race: C [facility] [place]: Postop Eval I Current Vital Signs [...] Signature: Date CC: Signed Normal [facility] MR/PSXRWQBQ2im 10-05-2024 MR/POSTOPAN2 [facility] Medical Records Department [address] [place] [address] Anesthesia Postop Eval II 10/05/24 1403 MR#: [id number] Acct: [id number] Name: CHELSEA MOODY Rep #: [id number] : 1940 83 From: Abhilash Serrano MD PCP: Dr. Angela High MD Status:ADM IN Y Race: C Location: ICU ICU05 Anesthesia Postop Eval I Sum Postop Eval Completion status Anesthesia document: Postop Eval 1 completed: Yes Anesthesia Postop Eval I Summary Anesthesia Postop Eval I Summary: Anesthesia Postop Eval I: Assessment Summary Airway patent Yes 10/05/24 10:30 ENDODONTIC ASSISTANT.GDOTT Spontaneous unlabored Yes 10/05/24 10:30 ENDODONTIC ASSISTANT.GDOTT respirations Mental status Awake,Calm 10/05/24 10:30 ENDODONTIC ASSISTANT.GDOTT nausea No 10/05/24 10:30 ENDODONTIC ASSISTANT.GDOTT Vomiting No 10/05/24 10:30 ENDODONTIC ASSISTANT.GDOTT Anesthesia Postop Eval I: Fluid Summary Crystalloid volume administer 1,500 10/05/24 10:30 ENDODONTIC ASSISTANT.GDOTT (ml) Colloids volume administered ( ml) Blood Product volume administered (ml) Total IV fluid infused 1,500 10/05/24 10:30 ENDODONTIC ASSISTANT.GDOTT Anesthesia Postop Eval I: Summary Notes Anesthesia Complication No 10/05/24 10:30 ENDODONTIC ASSISTANT.GDOTT Anesthesia Complication Comment: Post-operative progress note Anesthesia: Postop Eval II Evaluation Mental status: Awake and Calm Pain Level: 3 nausea: No Vomiting: No Progress Note Post-operative progress note: Patient transferred to the ICU on 10 mcg/min nitroglycerin. meeting SBP goals Complications Anesthesia Complication: No 10/05/24 140 Date Abhilash Serrano MD Cosigner Signature: Date CC: Signed Normal [facility] Operative Reporton 5 Operative Report [facility] Medical Records Department [address] [place] [address] Operative Report 10/05/24 0943 MR#: [id number] Acct: [id number] Name: CHELSEA MOODY Rep #: [id number] : 1940 83 From: Ugo Rogel MD PCP: Dr. Angela High MD Status:ADM IN Location: ICU [place] [address] Operative Report (Standard) Operative Information Date of Procedure: 10/05/24 Pre-Operative Diagnosis: right carotid stenosis Post-Operative Diagnosis: same Surgery/Procedure Performed: right carotid stent, trans carotid office cashier: Yes Branch Maker: Ingrid Rodríguez Tasks completed by orthotic assistant: Opening, Closing, Opening closing, Hemostasis: Electrocautery [...] site the patient was taken to the [facility] where she was placed under general anesthesia. [...] the micropuncture sheath exchanged for the 8 Haitian venous return sheath. Next the common carotid [...] topical hemostatic was applied and a 19 Haitian channel CHITO placed via separate stab incis (more content not included)... Normal [facility] Anion gap in Serum or Plasma Ordered By: Ugo Rogel on 10-01-2024 Anion gap [Moles/Vol] 14 mmol/L - [facility] BUN/creatinine ratioOrdered By: Ugo Rogel on 10-01-2024 Urea nitrogen/Creatinine [Mass ratio] 14.6 mg/mg - [facility] Basic Metabolic Profile (BMP )on 10-01-2024 BUN/CRE 14.6 RATIO Normal - [facility] Comment on above: Performed By: #### L 100.0100, L500.2500 #### [facility] Laboratory [address] [place], [address] Calcium [Mass/Vol] 9.2 mg/dL Normal 7.6-11.0 [facility] Comment on above: Performed By: #### L 100.0100, L500.2500 #### [facility] [address] [place], [address] Chloride [Moles/Vol] 98 mmol/L Normal 98-108 [facility] Comment on above: Performed By: #### L 100.0100, L500.2500 #### [facility] [address] [place], [address] CO2 [Moles/Vol] 21.7 mmol/L Normal 21.0-32.0 [facility] Comment on above: Performed By: #### L 100.0100, L500.2500 #### [facility] [address] [place], [address] Creatinine [Mass/Vol] 1.22 mg/dL High 0.70-1.20 [facility] Comment on above: Performed By: #### L 100.0100, L500.2500 #### [facility] [address] [place], [address] GAP 14 Normal 5-15 [facility] Comment on above: Performed By: #### L 100.0100, L500.2500 #### [facility] [address] [place], [address] GFR/1.73 sq M.predicted among non-blacks MDRD (S/P/Bld) [Vol rate/Area] 44 mL/min/{1.73_m2} Low >60 [facility] Comment on above: Result Comment: mL/m in/1.73m2 CKD-EPI Creatinine Equation (2020) Performed By: #### L 100.0100, L500.2500 #### [facility] [address] [place], [address] Glucose [Mass/Vol] 231 mg/dL High 70-99 [facility] Comment on above: Performed By: #### L 100.0100, L500.2500 #### [facility] [address] [place], [address] Potassium [Moles/Vol] 4.6 mmol/L Normal 3.3-5.1 [facility] Comment on above: Performed By: #### L 100.0100, L500.2500 #### [facility] [address] [place], [address] Sodium [Moles/Vol] 134 mmol/L Normal 133-145 [facility] Comment on above: Performed By: #### L 100.0100, L500.2500 #### [facility] [address] [place], [address] Urea nitrogen [Mass/Vol] 18 mg/dL Normal 4-19 [facility] Comment on above: Performed By: #### L 100.0100, L500.2500 #### [facility] [address] [place], [address] CBC-Complete Blood Cnt No Di ffon 10-01-2024 Erythrocyte distribution width (RBC) [Ratio] 13.3 % Normal 11.6-14.6 [facility] Comment on above: Performed By: #### L 100.0100, L500.2500 #### [facility] Laboratory [address] [place], [address] Hematocrit (Bld) [Volume fraction] 36.3 % Low 37-47 [facility] Comment on above: Performed By: #### L 100.0100, L500.2500 #### [facility] [address] [place], [address] Hemoglobin (Bld) [Mass/Vol] 12.1 g/dL Normal 12.0-15.0 [facility] Comment on above: Performed By: #### L 100.0100, L500.2500 #### [facility] [address] [place], [address] MCH (RBC) [Entitic mass] 30.3 pg Normal 27.0-32.0 [facility] Comment on above: Performed By: #### L 100.0100, L500.2500 #### [facility] [address] [place], [address] MCHC (RBC) [Mass/Vol] 33.3 g/dL Normal 32-36 [facility] Comment on above: Performed By: #### L 100.0100, L500.2500 #### [facility] [address] [place], [address] MCV (RBC) [Entitic vol] 90.8 fL Normal 81-99 [facility] Comment on above: Performed By: #### L 100.0100, L500.2500 #### [facility] [address] [place], [address] Platelet mean volume (Bld) [Entitic vol] 10.6 fL Normal 6.2-12.0 [facility] Comment on above: Performed By: #### L 100.0100, L500.2500 #### [facility] [address] [place], [address] Platelets (Bld) [#/Vol] 321 10*3/uL Normal 150-450 [facility] Comment on above: Performed By: #### L 100.0100, L500.2500 #### [facility] [address] [place], [address] RBC (Bld) [#/Vol] 4.00 10*6/uL Low 4.2-5.4 [facility] Comment on above: Performed By: #### L 100.0100, L500.2500 #### [facility] [address] [place], [address] RDW SD 44.4 fl High 35.1-43.9 [facility] Comment on above: Performed By: #### L 100.0100, L500.2500 #### [facility] [address] [place], [address] WBC (Bld) [#/Vol] 8.9 10*3/uL Normal 4.4-11.0 [facility] Comment on above: Performed By: #### L 100.0100, L500.2500 #### [facility] [address] [place], [address] Carbon dioxide, total [Moles /volume] in Central venous bloodOrdered By: Ugo Rogel on 10-01-2024 CO2 [Moles/Vol] 21.7 mmol/L 21.0-32.0 [facility] Chloride assayOrdered By: Barry Rogel on 10-01-2024 Chloride [Moles/Vol] 98 mmol/L 98-108 [facility] Glomerular filtration rate ( GFR) estimation/1.73 sq m using serum, plasma, or whole bOrdered By: Ugo Rogel on 10-01-2024 GFR/1.73 sq M.predicted among non-blacks MDRD (S/P/Bld) [Vol rate/Area] 44 mL/min/{1.73_m2} Low >60 [facility] Comment on above: mL/min/1.73m2 CKD-EP I Creatinine Equation (2020) Hemoglobin A1con 10-01-2024 HbA1c (Bld) [Mass fraction] 7.7 % High <=5.6 [facility] Comment on above: Result Comment: Norm al < 5.7 % Prediabetic 5.7 - 6.4 % Diabetic >or= 6.5 % Please note range changes. Performed By: #### L 100.0100, L500.2500 #### [facility] Laboratory [address] [place], [place], [id number] Hemoglobin A1c percentageOrd ered By: Jared Arguello on 10-01-2024 HbA1c (Bld) [Mass fraction] 7.7 % High <5.7 [facility] Comment on above: Normal < 5.7 % Predi abetic 5.7 - 6.4 % Diabetic >or= 6.5 % Please note range changes. Potassium measurement (mass/ volume)Ordered By: Ugo Rogel on 10-01-2024 Potassium (Unsp spec) [Mass/Vol] 4.6 mmol/L 3.3-5.1 [facility] Serum creatinine measurement (mass/volume)Ordered By: Ugo Rogel on 10-01-2024 Creatinine [Mass/Vol] 1.22 mg/dL High 0.70-1.20 [facility] Serum glucose measurement (m ass/volume)Ordered By: Ugo Rogel on 10-01-2024 Glucose [Mass/Vol] 231 mg/dL High 70-99 [facility] Serum or plasma calcium alfred urement (mass/volume)Ordered By: Ugo Rogel on 10-01-2024 Calcium [Mass/Vol] 9.2 mg/dL 7.6-11.0 [facility] Serum or plasma urea nitroge n measurement (mass/volume)Ordered By: Ugo Rogel on 10-01-2024 Urea nitrogen [Mass/Vol] 18 mg/dL 4-19 [facility] Sodium levelOrdered By: Ugo Rogel on 10-01-2024 Sodium [Moles/Vol] 134 mmol/L 133-145 [facility] MR/PAT.Ihsan 09-23-2024 MR/PAT.GENEVIEVE [facility] Medical Records Department [address] [place] [address] PAT - Anesthesia 09/23/24 1415 MR#: [id number] Acct: [id number] Name: CHELSEA MOODY Rep #: [id number] : 1940 83 From: Jared Arguello MD PCP: Dr. Angela High MD Status:PRE IN Y Race: C Location: [facility] Pre-Assessment Diagnosis/Proposed Procedure Planned Operative Procedure(s): RIGHT CAROTID STENT Anesthesia History Anesthesia History - rn ostomy: Anesthesia History - rn ostomy Hx Hospitalization Yes: AT [facility]- STROKE 09/23/24 11:46 Any Problems With Anesthesia [...] take am of surgery PONV PONV - rn ostomy: PONV - rn ostomy Female Yes 09/23/24 11:46 HX of Motion [...] 09/01/24 14:52 Respiratory Assessment Respiratory Assessment - rn ostomy: Respiratory Tract Infection Hx - rn ostomy Hx Respiratory Tract Infection No 09/23/24 11:46 STOP Sleep Apnea STOP Sleep Apnea - rn ostomy: STOP Sleep Apnea - rn ostomy Hx Hypertension Yes 09/23/24 11:46 Hx Sleep [...] Tobacco Use History Tobacco Use History - rn ostomy: Tobacco Use History - rn ostomy Tobacco Use Smoking Status Never smoker 09/23/24 11:46 Hx Tobacco Use No 09/23/24 11:46 Years Smoking Packs Smoked per Day Smoking Cessation Date was within the last 15 years Hx Smoking Cessation Date Hx Smoking Cessation Counseling Hematologic Medial History Hematologic Hx - rn ostomy: Hematologic Medical Hx - performance tester Hx of Blood Transfusion No 09/23/24 11:46 Hx of Transfusion in last 3 No 09/23/24 11:46 Months Date of Last Transfusion (if within last 3 months) Ever experience any problems No 09/23/24 11:46 with transfusion(s)? Specify any problems Hx of Preganancy in last 3 No 09/23/24 11:46 Months Nurse Filling Out Transfusion [facility] 09/23/24 11:46 Questions: Date: 09/23/24 09/23/24 11:46 Time: 11:53 09/23/24 11:46 Patient unable to answer at this time (ie. confused, unrespo /Reproduction History /Reproductive History - rn ostomy: /Reproductive Hx- rn ostomy Hx Now No 09/23/24 11:46 Gestational Age (in weeks): EDC: Hx Hx Para Hx Section SAB No 09/23/24 11:46 [facility] Medical History (Updated 09/23/24 @ 11:53 by [...] (more content not included)... Normal [facility] MR/BMS.Kevin 09-17-2024 MR/BMS.BVS [facility] Vascular Surgery [address] [place] [address] OFFICE VISIT Date of Service: 09/17/24 MR#: [id number] Acct: [id number] Name: CHELSEA MOODY Rep #: [id number] : 1940 Provider: DAVI Green Age/Sex: 83/F Location: [facility] Status: Signed Intake Vital Signs 09/01/24 14:52 09/17/24 11:18 Height 4 ft 8 in Weight: 173 lb 8 oz BP 140/70 H Blood Pressure Location Lt brachial Position Sitting Respiration 17 Pulse 76 Pulse Source Monitor Temp 97.8 F Temp Source Temporal Pulse Oximetry (%) 97 Oxygen Delivery Method room air Intake Visit Reasons: [facility] hospital F/U Chief Complaint: F/U Directional Bore Operator Required: No Is patient in pain?: No [...] in the past year?: Yes [facility] Medical History CVA (cerebral vascular accident) Diabetes mellitus, type 2 Obesity (BMI 30-39.9) GERD (gastroesophageal reflux disease) Hypertension Diabetes Social History Smoking Status: Never smoker HPI HPI HPI: CHELSEA MOODY, is a 83 F who presents to the office today for hospital follow-up from CVA. On 08/31/24, she presented to the [facility] ER with binocular vision darkening and presyncope; [...] headache(s), Yes (more content not included)... Normal [facility] 09-13-2024 [facility] Telephone (INTMWS) CHELSEA MOODY ([id number]) 1940 F Date Time Provider Department 09/13/24 ANGELA HIGH INTMWS During your visit today, we recorded the following information about you: Pippa Nichols, ORESTES 09/13/2024 9:26 AM Signed Daughter (Barry) calls to report that prescriptions for amlodipine and losartan-HCTZ were not received at [facility] [place]. Called and spoke to Randa. Both prescriptions are ready for picking supervisor. Randa mentioned that patient has two accounts in her name. Call placed to daughter to notify. Message left for Barry. When returns call let her know medications are both ready for picking supervisor but I also wanted to mention to her that [facility] mentioned she had two accounts which might [...] Encounter Status:Closed by SIVAKUMAR BARRIOS on 09/13/24 [facility] CNOVon 09-10-2024 CNOV Office Visit (INTMWS ) CHELSEA MOODY ([id number]) 1940 F Date Time Provider Department 09/10/24 11:20 AM ANGELA HIGH INTMWS During your visit today, we recorded the following information about you: Pulse Respiration Blood pressure Weight 98/minute 18/minute 138/69 78.7 kg Leona Perry MA 09/10/2024 12:54 PM Signed [facility] visit: Date of Admission: 09/01/24 Date of Discharge: 09/03/24 Discharge Diagnosis (1) CVA (cerebral vascular accident): Status: Acute Discharge diagnoses: Acute right frontal lobe stroke Hypertensive emergency Carotid artery stenosis right greater than left Hyperlipidemia DM-2 uncontrolled Obesity Hypertension Hospital Course: Mrs. Underwood is an 83-year-old white female who presents emergency department at [facility] on 08/31/2024 with a chief complaint of [...] stable condition (more content not included)... Normal [facility] Absolute lymphocyte countOrd ered By: Dariana Wise on 09-03-2024 Lymphocytes Auto (Unsp spec) [#/Vol] 2.17 10*3/uL 0.83-4.51 [facility] Absolute neutrophil countOrd ered By: Dariana Wise on 09-03-2024 Neutrophils (Bld) [#/Vol] 6.1 10*3/uL 2.0-7.7 [facility] Anion gap in Serum or Plasma Ordered By: Dariana Wise on 09-03-2024 Anion gap [Moles/Vol] 11 mmol/L 5-15 [facility] Automated lymphocyte count a s percentage of total leukocytesOrdered By: Dariana Wise on 09-03-2024 Lymphocytes/100 WBC Auto (Unsp spec) 22.9 % 19-41 [facility] BUN/creatinine ratioOrdered By: Dariana Wise on 09-03-2024 Urea nitrogen/Creatinine [Mass ratio] 16.4 mg/mg 10-20 [facility] Basophil percentageOrdered B y: Dariana Wise on 09-03-2024 Basophils/100 WBC (Bld) 0.5 % 0-1 [facility] Bedside Glucoseon 09-03-2024 FINGERSTICK GLU 176 mg/dL High 74-106 [facility] Comment on above: Result Comment: RAKESH LONGO OF PATIENT CARE PER NURSING PROTOCOL Performed By: #### L 501.080 #### [facility] Laboratory [address] [place], [address] Bilirubin, totalOrdered By: Dariana Wise on 09-03-2024 Bilirubin [Mass/Vol] 0.47 mg/dL 0.00-1.30 [facility] Comment on above: Performed By: #### L 501.080 #### [facility] Laboratory [address] [place], [address] CBC W/Diff, Automatedon 04- Absolute Lymph 2.17 X10 3/uL Normal 0.83-4.51 [facility] Comment on above: Performed By: #### L 501.080 #### [facility] Laboratory [address] [place], [address] Absolute Neut 6.1 X10 3/uL Normal 2.0-7.7 [facility] Comment on above: Performed By: #### L 501.080 #### [facility] [address] [place], [address] Basophils/100 WBC (Bld) 0.5 % Normal 0-1 [facility] Comment on above: Performed By: #### L 501.080 #### [facility] [address] [place], [address] Eosinophils/100 WBC (Bld) 1.9 % Normal 0-5 [facility] Comment on above: Performed By: #### L 501.080 #### [facility] [address] [place], [address] Erythrocyte distribution width (RBC) [Ratio] 14.4 % Normal 11.6-14.6 [facility] Comment on above: Performed By: #### L 501.080 #### [facility] [address] [place], [address] Hematocrit (Bld) [Volume fraction] 34.7 % Low 37-47 [facility] Comment on above: Performed By: #### L 501.080 #### [facility] [address] [place], [address] Hemoglobin (Bld) [Mass/Vol] 11.5 g/dL Low 12.0-15.0 [facility] Comment on above: Performed By: #### L 501.080 #### [facility] [address] [place], [address] IG% 0.400 Normal 0.0-0.9 [facility] Comment on above: Result Comment: IG% - Immature Granulocytes (promyelocytes, myelocytes and metamyelocytes) > 1% indicates that a LEFT SHIFT is Present. Performed By: #### L 501.080 #### [facility] [address] [place], [address] Lymphocytes/100 WBC (Bld) 22.9 % Normal 19-41 [facility] Comment on above: Performed By: #### L 501.080 #### [facility] [address] [place], [address] MCH (RBC) [Entitic mass] 30.4 pg Normal 27.0-32.0 [facility] Comment on above: Performed By: #### L 501.080 #### [facility] [address] [place], [address] MCHC (RBC) [Mass/Vol] 33.1 g/dL Normal 32-36 [facility] Comment on above: Performed By: #### L 501.080 #### [facility] [address] [place], [address] MCV (RBC) [Entitic vol] 91.8 fL Normal 81-99 [facility] Comment on above: Performed By: #### L 501.080 #### [facility] [address] [place], [address] Monocytes/100 WBC (Bld) 9.8 % Normal 0-10 [facility] Comment on above: Performed By: #### L 501.080 #### [facility] [address] [place], [address] Neutrophils/100 WBC (Bld) 64.5 % Normal 47-70 [facility] Comment on above: Performed By: #### L 501.080 #### [facility] [address] [place], [address] Nucleated RBC (Bld) [#/Vol] 0 10*3/uL Normal 0-5 [facility] Comment on above: Performed By: #### L 501.080 #### [facility] [address] [place], [address] Platelet mean volume (Bld) [Entitic vol] 10.9 fL Normal 6.2-12.0 [facility] Comment on above: Performed By: #### L 501.080 #### [facility] [address] [place], [address] Platelets (Bld) [#/Vol] 281 10*3/uL Normal 150-450 [facility] Comment on above: Performed By: #### L 501.080 #### [facility] [address] [place], [address] RBC (Bld) [#/Vol] 3.78 10*6/uL Low 4.2-5.4 [facility] Comment on above: Performed By: #### L 501.080 #### [facility] [address] [place], [address] RDW SD 48.5 fl High 35.1-43.9 [facility] Comment on above: Performed By: #### L 501.080 #### [facility] [address] [place], [address] WBC (Bld) [#/Vol] 9.5 10*3/uL Normal 4.4-11.0 [facility] Comment on above: Performed By: #### L 501.080 #### [facility] [address] [place], [address] Carbon dioxide, total [Moles /volume] in Central venous bloodOrdered By: Dariana Wise on 09-03-2024 CO2 [Moles/Vol] 20.8 mmol/L Low 21.0-32.0 [facility] Comment on above: Performed By: #### L 501.080 #### [facility] [address] [place], [address] Chloride assayOrdered By: Giovany Wise on 09-03-2024 Chloride [Moles/Vol] 106 mmol/L 98-108 [facility] Comment on above: Performed By: #### L 501.080 #### [facility] [address] [place], [address] Comprehensive Metabolic Prof ilon 09-03-2024 ALK PHOS 115 U/L High 35-104 [facility] Comment on above: Performed By: #### L 501.080 #### [facility] [address] [place], [address] BUN/CRE 16.4 RATIO Normal 10-20 [facility] Comment on above: Performed By: #### L 501.080 #### [facility] [address] [place], [address] ECRCL 40.44 ml/min Low 50-250 [facility] Comment on above: Performed By: #### L 501.080 #### [facility] [address] [place], [address] GAP 11 Normal 5-15 [facility] Comment on above: Performed By: #### L 501.080 #### [facility] [address] [place], [address] T PROT 6.3 g/dL Normal 5.9-8.4 [facility] Comment on above: Performed By: #### L 501.080 #### [facility] [address] [place], [address] Comprehensive Metabolic Prof ilOrdered By: Dariana Wise on 09-03-2024 AST [Catalytic activity/Vol] 16 U/L <32 [facility] Comment on above: Performed By: #### L 501.080 #### [facility] [address] [place], [place], [address] Eosinophil percentageOrdered By: Dariana Wise on 09-03-2024 Eosinophils/100 WBC (Bld) 1.9 % 0-5 [facility] Erythrocyte distribution wid th (RBC) [Ratio]Ordered By: Dariana Wise on 09-03-2024 Erythrocyte distribution width (RBC) [Entitic vol] 48.5 fL High 35.1-43.9 [facility] Erythrocyte distribution wid th ratioOrdered By: Dariana Wise on 09-03-2024 Erythrocyte distribution width (RBC) [Ratio] 14.4 % 11.6-14.6 [facility] Erythrocyte distribution wid th standard deviationOrdered By: Dariana Wise on 09-03-2024 Erythrocyte distribution width (RBC) [Ratio] 48.5 fl High 35.1-43.9 [facility] Estimation of creatinine samuel aranceOrdered By: Dariana Wise on 09-03-2024 Estimated Creatinine Clearance Calc 40.44 ml/min Low 50-250 [facility] GFR/1.73 sq M.predicted albaro g non-blacks MDRD (S/P/Bld) [Vol rate/Area]Ordered By: Dariana Wise on 09-03-2024 Estimated GFR (MDRD) Non-Af Amer 58 Low >60 [facility] Comment on above: mL/min/1.73m2 CKD-EP I Creatinine Equation (2020) Glomerular filtration rate ( GFR) estimation/1.73 sq m using serum, plasma, or whole bOrdered By: Dariana Wise on 09-03-2024 GFR/1.73 sq M.predicted among non-blacks MDRD (S/P/Bld) [Vol rate/Area] 58 mL/min/{1.73_m2} Low >60 [facility] Comment on above: mL/min/1.73m2 CKD-EP I Creatinine Equation (2020) Result Comment: mL/m in/1.73m2 CKD-EPI Creatinine Equation (2020) Performed By: #### L 501.080 #### [facility] [address] [place], [address] [facility] deOrdered By: Dariana Wise on 09-03-2024 Bedside Glucose (Misc Panel) 176 mg/dL High 74-106 [facility] Comment on above: MANAGEMENT OF PATIEN T CARE PER NURSING PROTOCOL Glucose [Mass/Vol] 176 mg/dL High 74-106 [facility] Comment on above: MANAGEMENT OF PATIEN T CARE PER NURSING PROTOCOL Performed By: #### L 501.080 #### [facility] [address] [place], [place], [address] Hematocrit Auto (Bld) [Volum e fraction]Ordered By: Dariana Wise on 09-03-2024 Hematocrit (Bld) [Volume fraction] 34.7 % Low 37-47 [facility] Hemoglobin measurementOrdere d By: Dariana Wise on 09-03-2024 Hemoglobin (Bld) [Mass/Vol] 11.5 g/dL Low 12.0-15.0 [facility] Immature granulocytes/100 WB C Auto (Bld)Ordered By: Dariana Wise on 09-03-2024 Immature granulocytes/100 WBC (Bld) 0.400 % 0.0-0.9 [facility] Comment on above: IG% - Immature Granu locytes (promyelocytes, myelocytes and metamyelocytes) > 1% indicates that a LEFT SHIFT is Present. Lymphocytes Auto (Unsp spec) [#/Vol]Ordered By: Dariana Wise on 09-03-2024 Lymphocytes (Bld) [#/Vol] 2.17 10*3/uL 0.83-4.51 [facility] Lymphocytes/100 WBC Auto (Un sp spec)Ordered By: Dariana Wise on 09-03-2024 Lymphocytes/100 WBC (Bld) 22.9 % 19-41 [facility] MCV (mean corpuscular volume ) determinationOrdered By: Dariana Wise on 09-03-2024 MCV (RBC) [Entitic vol] 91.8 fL 81-99 [facility] Mean corpuscular hemoglobin (MCH) determinationOrdered By: Dariana Wise on 09-03-2024 MCH (RBC) [Entitic mass] 30.4 pg 27.0-32.0 [facility] Mean corpuscular hemoglobin concentration (MCHC) determinationOrdered By: Dariana Wise on 09-03-2024 MCHC (RBC) [Mass/Vol] 33.1 g/dL 32-36 [facility] Mean platelet volume determi nationOrdered By: Dariana Wise on 09-03-2024 Platelet mean volume (Bld) [Entitic vol] 10.9 fL 6.2-12.0 [facility] Monocyte percentageOrdered B y: Dariana Wise on 09-03-2024 Monocytes/100 WBC (Bld) 9.8 % 0-10 [facility] Neutrophil percentageOrdered By: Dariana Wise on 09-03-2024 Neutrophils/100 WBC (Bld) 64.5 % 47-70 [facility] Nucleated red blood cell per centageOrdered By: Dariana Wise on 09-03-2024 Nucleated RBC/100 WBC (Bld) [Ratio] 0 % 0-5 [facility] Platelet countOrdered By: Giovany Wise on 09-03-2024 Platelets (Bld) [#/Vol] 281 10*3/uL 150-450 [facility] Potassium measurement (mass/ volume)Ordered By: Dariana Wise on 09-03-2024 Potassium (Unsp spec) [Mass/Vol] 4.3 mmol/L 3.3-5.1 [facility] Potassium [Moles/Vol] 4.3 mmol/L Normal 3.3-5.1 [facility] Comment on above: Performed By: #### L 501.080 #### [facility] [address] [place], [place] [address], [address] RBC Auto (Bld) [#/Vol]Ordere d By: Dariana Wise on 09-03-2024 RBC (Bld) [#/Vol] 3.78 10*6/uL Low 4.2-5.4 [facility] Serum creatinine measurement (mass/volume)Ordered By: Dariana Wise on 09-03-2024 Creatinine [Mass/Vol] 0.97 mg/dL 0.70-1.20 [facility] Comment on above: Performed By: #### L 501.080 #### [facility] [address] [place], [address] Serum globulin measurementOr dered By: Dariana Wise on 09-03-2024 Globulin (S) [Mass/Vol] 2.7 g/dL 2.2-4.2 [facility] Comment on above: Performed By: #### L 501.080 #### [facility] [address] [place], [address] Serum glucose measurement (m ass/volume)Ordered By: Dariana Wise on 09-03-2024 Glucose [Mass/Vol] 176 mg/dL High 70-99 [facility] Serum or plasma alanine jackson otransferase (ALT) measurementOrdered By: Dariana Wise on 09-03-2024 ALT [Catalytic activity/Vol] 21 U/L <35 [facility] Comment on above: Performed By: #### L 501.080 #### [facility] [address] [place], [address] Serum or plasma albumin alfred urement (mass/volume)Ordered By: Dariana Wise on 09-03-2024 Albumin [Mass/Vol] 3.6 g/dL 3.4-4.8 [facility] Comment on above: Performed By: #### L 501.080 #### [facility] [address] [place], [address] Serum or plasma albumin/glob ulin mass ratioOrdered By: Dariana Wise on 09-03-2024 Albumin/Globulin [Mass ratio] 1.3 {ratio} 0.9-2.4 [facility] Comment on above: Performed By: #### L 501.080 #### [facility] [address] [place], [address] Serum or plasma alkaline windy sphatase measurementOrdered By: Dariana Wise on 09-03-2024 ALP [Catalytic activity/Vol] 115 U/L High 35-104 [facility] Serum or plasma calcium alfred urement (mass/volume)Ordered By: Dariana Wise on 09-03-2024 Calcium [Mass/Vol] 9.2 mg/dL 7.6-11.0 [facility] Comment on above: Performed By: #### L 501.080 #### [facility] [address] [place], [address] Serum or plasma urea nitroge n measurement (mass/volume)Ordered By: Dariana Wise on 09-03-2024 Urea nitrogen [Mass/Vol] 16 mg/dL 4-19 [facility] Comment on above: Performed By: #### L 501.080 #### [facility] [address] [place] [place], [address] Sodium levelOrdered By: Milady Wise on 09-03-2024 Sodium [Moles/Vol] 138 mmol/L 133-145 [facility] Comment on above: Performed By: #### L 501.080 #### [facility] [address] [place], [address] Total proteinOrdered By: Luh Wise on 09-03-2024 Protein [Mass/Vol] 6.3 g/dL 5.9-8.4 [facility] White blood cell (WBC) count Ordered By: Dariana Wise on 09-03-2024 WBC (Bld) [#/Vol] 9.5 10*3/uL 4.4-11.0 [facility] Bedside Glucoseon 09-02-2024 FINGERSTICK GLU 262 mg/dL High 74-106 [facility] Comment on above: Result Comment: RAKESH DELMERENT OF PATIENT CARE PER NURSING PROTOCOL Performed By: #### L 100.0100, L500.2500 #### [facility] [address] [place] [place], [address] Electrocardiogram reportOrde red By: Angel Shepard on 09-02-2024 EKG study [facility] Cardiovascular Services [address] [place] [address] 12 Lead EKG 08/31/242102 MR#: [id number] Acct: [id number] Name: CHELSEA MOODY Rep #:[id number] : 1940 83 From: Angel Shepard MD [...] Normal ECG Confirmed by DEVYN PENN, ANGEL ([id number]), editor sound LAURY PERSAUD ([id number]) on 58:34:45 AM Referred By: Confirmed By: ANGEL SHEPARD MD 09/02/24 0834 Date _ Angel Shepard MD CC: Dr. Kurt Lieberman MD; Dr. Dariana Wise DO; Dr. Murphy Ramírez DO ~ Signed [facility] Work Phone: Alcohol, Blood (Medical)-Ser umon 09-01-2024 SERUM ETOH < 10.1 Normal <=10.0 [facility] Comment on above: Order Comment: *ADD- ON* Result Comment: This test is for medical purposes only. The legal definition of intoxication varies according to local law. Performed By: #### L 100.0100, L500.2500 #### [facility] [address] [place], [place], [address] Bedside Glucoseon 09-01-2024 FINGERSTICK GLU 222 mg/dL High 74-106 [facility] Comment on above: Result Comment: RAKESH GEMENT OF PATIENT CARE PER NURSING PROTOCOL Performed By: #### L 501.080 #### [facility] [address] [place], [place], [address] FINGERSTICK GLU 144 mg/dL High 74-106 [facility] Comment on above: Result Comment: RAKESH LONGO OF PATIENT CARE PER NURSING PROTOCOL Performed By: #### L 501.080 #### [facility] [address] [place], [address] CTA Head AND Neck W/ Contras ton 09-01-2024 CTA Head AND Neck W/ Contrast [facility] Imaging Services [address] [place] [address] CTA Head AND Neck W/ Contrast MR#: [id number] Acct: [id number] Name: CHELSEA MOODY Rep #: [id number] : 1940 F 83 From: Carlos estevez MD PCP: Dr. Kurt Lieberman MD Status: ADM IN Study: CTA Head AND Neck W/ Contrast Date of Exam: Exam# [id number] Ordering Dr: Sonali Haro PROCEDURE: CTA HEAD [...] CCA: No significant atherosclerotic calcification Right ICA: [id number] atherosclerotic calcified and noncalcified plaque at the [...] RIGHT Vertebral: Unremarkable. LEFT Vertebral: Unremarkable. Anatomy: [place] anatomy is normal. Aneurysm or [...] acute occlusion, dissection or aneurysm [facility] CC: DAVI Green; Dr. Kurt Lieberman MD [employer]: Signed Normal [facility] Calculated very low density lipoprotein (VLDL) cholesterol measurementOrdered By: Severiano Gordillo on 09-01-2024 Calculated very low density lipoprotein (VLDL) cholesterol measurement 35 mg/dL 5-40 [facility] VLDL Cholesterol 35 mg/dL -40 [facility] Consultation - Surgicalon Consultation - Surgical [facility] Medical Records Department [address] [place] [address] Consultation - Surgical 09/01/24 1427 MR#: [id number] Acct: [id number] Name: CHELSEA MOODY Rep #: [id number] : 1940 83 From: Sonali TOMLINSON PCP: Dr. Krut Lieberman MD Status:ADM IN Location: [place] [address] Assessment Plan Assessment/Plan (1) CVA (cerebral vascular [...] a 83 F who presented to the [facility] ER after an episode of darkening of [...] CKD, prior vascular surgical interventions. [facility] Medical History GERD (gastroesophageal reflux disease) Hypertension [...] % (Auto) 61.5, Lymph % (Auto) 24.9, Greene % (Auto) 9.1, Eos % (Auto) 3.2, [...] (more content not included)... Normal [facility] Duplex ultrasound of carotid artery reportOrdered By: Ugo Rogel on 09-01-2024 Study report [facility] Cardiovascular Services [address] [place] [address] Carotid Duplex Ultrasound 09/01/24 0808 MR#: [id number] Acct: [id number] Name: CHELSEA MOODY Rep #:[id number] : 1940 83 From: Ugo Rousseau Attending Dr: DO Abigail Whitman tatus: ADM JAMES Ordering Dr: Severiano Ibarra DO Date: 08/31/24 Location: [facility] Sex: F C Admitted: 08/31/24 Reason For [...] the left vertebral artery. Procedure Carotid Duplex 25926. This is a Carotid Duplex examination using [...] DO; Dr. Kurt Lieberman MD; Dr. Dariana iWse DO ~ Date Dictated: 09/01/24 0808 Date Transcribed: 09/01/24 133 [employer]: Signed [facility] Work Phone: Echocardiogram study reportO rdered By: Angel Shepard on 09-01-2024 Study report [facility] Cardiovascular Services [place] [address] Echo Complete W/ Contrast 09/01/24 1349 MR#: [id number] Acct: [id number] Name: CHELSEA MOODY Rep #:[id number] : 1940 83 From: Angel Rousseau Attending Dr: Dr. Dariana Wise DO S tatus: ADM IN Ordering Dr: Severiano Ibarra DO Date: 08/31/24 Location: [facility] Sex: F C Admitted: 09/01/24 Reason For [...] Dictated: 09/01/24 1349 Date Transcribed: 09/01/24 1734 [employer]: Signed [facility] Work Phone: Folate [Mass/Vol]Ordered By: Severiano Gordillo on 09-01-2024 Serum Folate 10.10 ng/mL 4.60-34.80 [facility] Folate [Mass/volume] in Seru m or PlasmaOrdered By: Severiano Gordillo on 09-01-2024 Folate [Mass/Vol] 10.10 ng/mL 4.60-34.80 [facility] Folates,Serum (Folic Acid)on 09-01-2024 FOLATES,SERUM 10.10 ng/mL Normal 4.60-34.80 [facility] Comment on above: Order Comment: N Performed By: #### L 100.0100, L500.2500 #### [facility] [address] [place], [address] Hemoglobin A1c percentageOrd ered By: Severiano Gordillo on 09-01-2024 HbA1c (Bld) [Mass fraction] 7.8 % >5.7 [facility] Comment on above: Performed By: #### L 100.0100, L500.2500 #### [facility] [address] [place], [address] L499.0043on 09-01-2024 Trop T High Sen 13 ng/L Normal <=14 [facility] Comment on above: Performed By: #### L 100.0100, L500.2500 #### [facility] [address] [place], [address] Trop T High Sen Normal <=14 [facility] Comment on above: Result Comment: Tracie davis via OM: Ordered Performed By: #### L 501.080 #### [facility] [address] [place], [place], [address] LDL calc ser/plasOrdered By: Severiano Gordillo on 09-01-2024 Cholesterol in LDL [Mass/Vol] 123 mg/dL [facility] Comment on above: Qdmskseufo=034-586 m g/dL & Higher Ndjl=909 mg/dL or greater LDL Cholesterol, Calculated 123 mg/dL [facility] Comment on above: Bvyuivzlrz=263-362 m g/dL & Higher Hopo=655 mg/dL or greater Lipid Profileon 09-01-2024 CHOL:HDL 4.38 Normal [facility] Comment on above: Performed By: #### L 500.4100, L503.0106 #### [facility] [address] [place], [place], [id number] (996) Cholesterol [Mass/Vol] 205 mg/dL High <=200 [facility] Comment on above: Result Comment: Chol esterol level, Desirable <200 mg/dL Borderline high cholesterol 200-239 mg/dL High cholesterol >=240 mg/dL 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s of the NCEP Adult Treatment Panel for the following risk-cutoff thresholds for the [place] population. Performed By: #### L 500.4100, L503.0106 #### [facility] [address] [facility] [place], [place], [id number] [phone] Cholesterol in HDL [Mass/Vol] 47 mg/dL Normal [facility] Comment on above: Result Comment: Lydia onal Cholesterol Education Program (NCEP) guidelines: <40 mg/dL: Low HDL-cholesterol (major risk factor for CHD) >= 60 mg/dL: High HDL-cholesterol (negative risk factor for CHD) HDL-cholesterol is affected by a number of factors, e.g. smoking, exercise, hormones, sex and age. Performed By: #### L 500.4100, L503.0106 #### [facility] [address] [place], [place], [id number] ([phone] Cholesterol in LDL [Mass/Vol] 123 mg/dL Normal [facility] Comment on above: Result Comment: Bord vmbcut=523-266 mg/dL Higher Mzni=983 mg/dL or greater Performed By: #### L 500.4100, L503.0106 #### [facility] [address] [place], [address] Cholesterol in VLDL [Mass/Vol] 35 mg/dL Normal 5-40 [facility] Comment on above: Performed By: #### L 500.4100, L503.0106 #### [facility] [address] [place], [address] Triglyceride [Mass/Vol] 177 mg/dL Normal [facility] Comment on above: Result Comment: The drugs N-Acetylcysteine and Metamizole may falsely depress this assay. Normal range: <150 mg/dL Borderline High: 150-199 mg/dL High: 200-499 mg/dL Very High: >500 mg/dL Performed By: #### L 500.4100, L503.0106 #### [facility] [address] [place], [address] TRIG Normal [facility] Comment on above: Result Comment: NEED S REORDERED- PT FORGOT SHE ATE SHE WILL NEED RAN IN MORNING The drugs N-Acetylcysteine and Metamizole may falsely depress this assay. Performed By: #### L 500.4100, L499.0043 #### [facility] [address] [place], [address] CHOL Normal <=200 [facility] Comment on above: Result Comment: NEED S REORDERED- PT FORGOT SHE ATE SHE WILL NEED RAN IN MORNING Performed By: #### L 500.4100, L499.0043 #### [facility] [address] [place], [address] Result Comment: MOVE D TO DIFFERENT REQ Performed By: #### L 501.080 #### [facility] [address] [place], [address] CHOL:HDL Normal [facility] Comment on above: Result Comment: NEED S REORDERED- PT FORGOT SHE ATE SHE WILL NEED RAN IN MORNING Performed By: #### L 500.4100, L499.0043 #### [facility] [address] [place], [address] Result Comment: MOVE D TO DIFFERENT REQ Performed By: #### L 501.080 #### [facility] [address] [place], [address] CLDL Normal [facility] Comment on above: Result Comment: NEED S REORDERED- PT FORGOT SHE ATE SHE WILL NEED RAN IN MORNING Performed By: #### L 500.4100, L499.0043 #### [facility] [address] [place], [address] Result Comment: MOVE D TO DIFFERENT REQ Performed By: #### L 501.080 #### [facility] [address] [place], [address] HDL Normal [facility] Comment on above: Result Comment: NEED S REORDERED- PT FORGOT SHE ATE SHE WILL NEED RAN IN MORNING Performed By: #### L 500.4100, L499.0043 #### [facility] [address] [place], [address] Result Comment: MOVE D TO DIFFERENT REQ Performed By: #### L 501.080 #### [facility] [address] [place], [address] TRIG Normal [facility] Comment on above: Result Comment: MOVE D TO DIFFERENT REQ Performed By: #### L 501.080 #### [facility] [address] [place], [address] VLDL Normal 5-40 [facility] Comment on above: Result Comment: NEED S REORDERED- PT FORGOT SHE ATE SHE WILL NEED RAN IN MORNING Performed By: #### L 500.4100, L499.0043 #### [facility] [address] [place], [address] Result Comment: MOVE D TO DIFFERENT REQ Performed By: #### L 501.080 #### [facility] [address] [place], [address] MR/CON.PCM.NEon 09-01-2024 MR/CON.PCM.NE [facility] Medical Records Department [address] [place] [address] Consultation - Neurology 09/01/24 1432 MR#: [id number] Acct: [id number] Name: CHELSEA MOODY Rep #: [id number] : 1940 83 From: Monik Barker MD PCP: Dr. Kurt Lieberman MD Status:ADM IN Location: [place] [address] Assessment and Plan: Neuro Assessment/Plan CHELSEA MOODY [...] cont lipitor 40mg Smoking Cessation Diabetes Management intermediate blood pressure control should achieve <130/80 mmHg. 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 [facility] Medical History GERD (gastroesophageal reflux disease) Hypertension [...] (more content not included)... Normal [facility] Magnetic resonance imaging r eportOrdered By: Ravindra Hernandez on 09-01-2024 Study report [facility] Imaging Services [address] [place], [place] [id number] Brain without Contrast MR#: [id number] Acct: [id number] Name: CHELSEA MOODY Rep #: [id number] : 1940 F 83 From: Mirtha Hernandez MD PCP: Dr. Kurt Lieberman MD Status: A DM JAMES Study:Brain without Contrast Date of Exam: 08/31/24 Exam# [id number] Ordering Dr: Severiano Zheng DO ADDENDUM by Dr. Ravindra Hernandez MD on 09/01/24 at 1054 Cassia Alert: Impression #1 The critical information above was relayed directly by me by telephone to janeth Alvarez RN on 09/01/2024 at 8:51 am MST with readback verification. END OF ADDENDUM Reading Location: [id number] 09/01/245 Date cc: Dr. Severiano Ibarra DO; [...] 2. Additional description as above. Reading Location: [facility] CC: Dr. Severiano Ibarra DO; Dr. Kurt Lieberman MD ~ [employer]: Signed [facility] Screening total cholesterol/ high density lipoprotein (HDL) cholesterol ratioOrdered By: Severiano Gordillo on 09-01-2024 Cholesterol.total/Analy sterol in HDL [Mass ratio] 4.38 {ratio} [facility] Serum or plasma cholesterol in HDL measurement (mass/volume)Ordered By: Severiano Gordillo on 09-01-2024 Cholesterol in HDL [Mass/Vol] 47 mg/dL >40 [facility] Comment on above: National Cholesterol Education Program (NCEP) guidelines:<40 mg/dL: Low HDL-cholesterol (major risk factor for CHD)>= 60 mg/dL: High HDL-cholesterol (negative risk factor for CHD)HDL-cholesterol is affected by a number of factors, e.g. smoking, exercise, hormones, sex and age. Serum or plasma cholesterol measurement (mass/volume)Ordered By: Severiano Gordillo on 09-01-2024 Cholesterol [Mass/Vol] 205 mg/dL High <201 [facility] Comment on above: Cholesterol level, D esirable <200 mg/dLBorderline high cholesterol 200-239 mg/dLHigh cholesterol >=240 mg/dL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s of the NCEP Adult Treatment Panel for the following risk-cutoff thresholds for the [place] population. Thyroid Stim Hormone (TSH)on 09-01-2024 TSH 2.070 uIU/mL Normal 0.300-4.200 [facility] Comment on above: Order Comment: *ADD- ON* Performed By: #### L 100.0100, L500.2500 #### [facility] [address] [place], [address] Triglycerides measurementOrd ered By: Severiano Gordillo on 09-01-2024 Triglyceride [Mass/Vol] 177 mg/dL <199 [facility] Comment on above: The drugs N-Acetylcy steine and Metamizole may falsely depress this assay. Normal range: <150 mg/dLBorderline High: 150-199 mg/dLHigh: 200-499 mg/dLVery High: >500 mg/dL Troponin T.cardiac High sens itivity method [Mass/Vol]Ordered By: Severiano Gordillo on 09-01-2024 Troponin T High Sensitivity 4 Hour 13 ng/L <14 [facility] Troponin T.cardiac [Mass/vol ume] in Serum or Plasma by High sensitivity methodOrdered By: Severiano Gordillo on 09-01-2024 Troponin T.cardiac High sensitivity method [Mass/Vol] 13 ng/L <14 [facility] Urine Drug Screen (VISTA)on 09-01-2024 AMPHETAMINES Negative Normal <1000 ng/mL [facility] Comment on above: Order Comment: UNK Performed By: #### L 100.0100, L500.2500 #### [facility] [address] [place], [address] BARBITIURATES Negative Normal < 200 ng/mL [facility] Comment on above: Order Comment: UNK Performed By: #### L 100.0100, L500.2500 #### [facility] [address] [place], [address] BENZODIAZIPINE Negative Normal < 200 ng/mL [facility] Comment on above: Order Comment: UNK Performed By: #### L 100.0100, L500.2500 #### [facility] [address] [place], [address] BUP Ur Drug Scr Negative Normal < 200 ng/mL [facility] Comment on above: Order Comment: UNK Performed By: #### L 100.0100, L500.2500 #### [facility] [address] [place], [address] COCAINE Negative Normal < 300 ng/mL [facility] Comment on above: Order Comment: UNK Performed By: #### L 100.0100, L500.2500 #### [facility] [address] [place], [address] Fentanyl Negative Normal [facility] Comment on above: Order Comment: UNK Performed By: #### L 100.0100, L500.2500 #### [facility] [address] [place], [address] METHADONE Negative Normal < 300 ng/mL [facility] Comment on above: Order Comment: UNK Performed By: #### L 100.0100, L500.2500 #### [facility] [address] [place], [address] OPIATES Negative Normal < 300 ng/mL [facility] Comment on above: Order Comment: UNK Performed By: #### L 100.0100, L500.2500 #### [facility] [address] [place], [address] OXYCODONE Negative Normal < 100 ng/mL [facility] Comment on above: Order Comment: UNK Performed By: #### L 100.0100, L500.2500 #### [facility] [address] [place], [address] PCP Negative Normal < 25 ng/mL [facility] Comment on above: Order Comment: UNK Performed By: #### L 100.0100, L500.2500 #### [facility] [address] [place], [address] THC Negative Normal < 50 ng/mL [facility] Comment on above: Order Comment: UNK Performed By: #### L 100.0100, L500.2500 #### [facility] [address] [place], [address] Vitamin B12on 09-01-2024 Cobalamin (Vitamin B12) [Mass/Vol] 421 pg/mL Normal 180-914 [facility] Comment on above: Performed By: #### L 500.4100, L503.0106 #### [facility] [address] [place], [address] Vitamin B12 ser/plasOrdered By: Severiano Gordillo on 09-01-2024 Cobalamin (Vitamin B12) [Mass/Vol] 421 pg/mL 180-914 [facility] 12 Lead EKGon 08-31-2024 12 Lead EKG [facility] Cardiovascular Services [address] [place] [address] 12 Lead EKG 08/31/24 2103 MR#: [id number] Acct: [id number] Name: CHELSEA MOODY Rep #: [id number] : 1940 83 From: Angel Shepard MD Attending Dr: Dr. Dariana Wise DO Status: ADM I N Ordering Dr: Murphy Ramírez DO Date: 08/31/24 Location: [facility] Sex: F C Admitted: 09/01/24 Test Reason : DYSRHYTHMIA Blood Pressure : */* mmHG Vent. Rate : 64 BPM Atrial Rate : 64 BPM P-R Int : 186 ms QRS Dur : 76 ms QT Int : 406 ms P-R-T Axes : -3 37 59 degrees QTcB Int : 418 ms Normal sinus rhythm Normal ECG Confirmed by ANGEL SHEPARD MD ([id number]), editor sound LAURY PERSAUD ([id number]) on 09/02/2024 8:34:45 AM Referred By: Confirmed By: ANGEL SHEPARD MD 09/02/24 0834 Date Angel Shepard MD CC: Dr. Kurt Lieberman MD; Dr. Dariana Wise DO; Dr. Murphy Ramírez DO Signed Normal [facility] Absolute neutrophil countOrd ered By: Murphy Ramírez on 08-31-2024 Neutrophils (Bld) [#/Vol] 6.8 10*3/uL 2.0-7.7 [facility] Amphetamine detection with 1 000 ng/mL as cutoffOrdered By: Severiano Gordillo on 08-31-2024 Amphetamines Screen method >1000 ng/mL Ql (U) Negative < 200 ng/mL [facility] Amphetamines Screen method > 1000 ng/mL Ql (U)Ordered By: Severiano Gordillo on 08-31-2024 Amphetamines Ql (U) Negative <1000 ng/mL [facility] Urine Barbiturates Screen Negative < 200 ng/mL [facility] Anion gap in Serum or Plasma Ordered By: Murphy Ramírez on 08-31-2024 Anion gap [Moles/Vol] 12 mmol/L 5-15 [facility] Automated blood erythrocyte countOrdered By: Murphy Ramírez on 08-31-2024 RBC (Bld) [#/Vol] 4.27 10*6/uL Normal 4.2-5.4 [facility] Comment on above: Performed By: #### L 100.0100, L500.2500 #### [facility] [address] [place], [place], [address] Automated blood hematocrit ( percentage)Ordered By: Murphy Ramírez on 08-31-2024 Hematocrit (Bld) [Volume fraction] 38.5 % Normal 37-47 [facility] Comment on above: Performed By: #### L 100.0100, L500.2500 #### [facility] [address] [facility] [place], [address] Automated lymphocyte count a s percentage of total leukocytesOrdered By: Murphy Ramírez on 08-31-2024 Lymphocytes/100 WBC (Bld) 24.9 % Normal 19-41 [facility] Comment on above: Performed By: #### L 100.0100, L500.2500 #### [facility] [address] [place], [address] BUN/creatinine ratioOrdered By: Murphy Ramírez on 08-31-2024 Urea nitrogen/Creatinine [Mass ratio] 18.8 mg/mg 10-20 [facility] Basophil percentageOrdered B y: Murphy Ramírez on 08-31-2024 Basophils/100 WBC (Bld) 0.8 % Normal 0-1 [facility] Comment on above: Performed By: #### L 100.0100, L500.2500 #### [facility] [address] [place], [address] Bedside Glucoseon 08-31-2024 FINGERSTICK GLU 141 mg/dL High 74-106 [facility] Comment on above: Result Comment: RAKESH LONGO OF PATIENT CARE PER NURSING PROTOCOL Performed By: #### L 100.0100, L500.2500 #### [facility] [address] [place], [address] Bilirubin Test strip Ql (U)O rdered By: Murphy Ramírez on 08-31-2024 Bilirubin Ql (U) Negative Negative [facility] Bilirubin, totalOrdered By: Murphy Ramírez on 08-31-2024 Bilirubin [Mass/Vol] 0.26 mg/dL Normal 0.00-1.30 [facility] Comment on above: Performed By: #### L 100.0100, L500.2500 #### [facility] [address] [place], [address] Brain without Contraston Brain without Contrast [facility] Imaging Services [address] [place] [address] Brain without Contrast MR#: [id number] Acct: [id number] Name: CHELSEA MOODY Rep #: [id number] : 1940 F 83 From: Ravindra Hernandez MD PCP: Dr. Kurt Lieberman MD Status: ADM JAMES Study: Brain without Contrast Date of Exam: 08/31/24 Exam# [id number] Ordering Dr: Severiano Ibarra DO ADDENDUM by Dr. Ravindra Hernandez MD on 09/01/24 at 1054 Cassia Alert: Impression #1 The critical information above was relayed directly by me by telephone to janeth Alvarez RN on 09/01/2024 at 8:51 am MST with readback verification. END OF ADDENDUM Reading Location: [id number] 09/01/24 1055 Date cc: Dr. Severiano Ibarra [...] 2. Additional description as above. Reading Location: [id number] CC: Dr. Severiano Ibarra DO; Dr. Kurt Lieberman MD [employer]: Signed Normal [facility] Brain/Head without Contrasto n 08-31-2024 Brain/Head without Contrast [facility] Imaging Services [address] [place] [address] Brain/Head without Contrast MR#: [id number] Acct: [id number] Name: CHELSEA MOODY Rep #: [id number] : 1940 F 83 From: Carlos estevez MD PCP: Dr. Kurt Lieberman MD Status: REG ER Study: Brain/Head without Contrast Date of Exam: 01/17 Exam# [id number] Ordering Dr: Murphy Ramírez DO PROCEDURE: BRAIN/HEAD [...] Kurt Lieberman MD; Dr. Murphy Ramírez DO [employer]: Signed Normal [facility] CBC W/Diff, Automatedon Absolute Lymph 2.74 X10 3/uL Normal 0.83-4.51 [facility] Comment on above: Performed By: #### L 100.0100, L500.2500 #### [facility] [address] [place], [address] Absolute Neut 6.8 X10 3/uL Normal 2.0-7.7 [facility] Comment on above: Performed By: #### L 100.0100, L500.2500 #### [facility] [address] [place], [address] IG% 0.500 Normal 0.0-0.9 [facility] Comment on above: Result Comment: IG% - Immature Granulocytes (promyelocytes, myelocytes and metamyelocytes) > 1% indicates that a LEFT SHIFT is Present. Performed By: #### L 100.0100, L500.2500 #### [facility] [address] [place], [address] Nucleated RBC (Bld) [#/Vol] 0 10*3/uL Normal 0-5 [facility] Comment on above: Performed By: #### L 100.0100, L500.2500 #### [facility] [address] [place], [address] RDW SD 47.4 fl High 35.1-43.9 [facility] Comment on above: Performed By: #### L 100.0100, L500.2500 #### [facility] [address] [place], [address] Carbon dioxide, total [Moles /volume] in Central venous bloodOrdered By: Murphy Ramírez on 08-31-2024 CO2 [Moles/Vol] 20.7 mmol/L Low 21.0-32.0 [facility] Comment on above: Performed By: #### L 100.0100, L500.2500 #### [facility] [address] [place], [address] Carotid Duplex Ultrasoundon 08-31-2024 Carotid Duplex Ultrasound [facility] Cardiovascular Services [address] [place] [address] Carotid Duplex Ultrasound 09/01/24 0808 MR#: [id number] Acct: [id number] Name: CHELSEA MOODY Rep #: [id number] : 1940 83 From: Ugo Rogel MD [...] the left vertebral artery. Procedure Carotid Duplex 00092. This is a Carotid Duplex examination using [...] DO Date Dictated: 09/01/24807 Date Transcribed: 09/01/241335 [employer]: Signed Normal [facility] Chloride assayOrdered By: Elsa Ramírez on 08-31-2024 Chloride [Moles/Vol] 103 mmol/L Normal 98-108 [facility] Comment on above: Performed By: #### L 100.0100, L500.2500 #### [facility] [address] [place], [address] Comprehensive Metabolic Prof ilon 08-31-2024 ALK PHOS 123 U/L High 35-104 [facility] Comment on above: Performed By: #### L 100.0100, L500.2500 #### [facility] [address] [place], [address] BUN/CRE 18.8 RATIO Normal 10-20 [facility] Comment on above: Performed By: #### L 100.0100, L500.2500 #### [facility] [address] [place], [address] ECRCL 39.57 ml/min Low 50-250 [facility] Comment on above: Performed By: #### L 100.0100, L500.2500 #### [facility] [address] [place], [address] GAP 12 Normal 5-15 [facility] Comment on above: Performed By: #### L 100.0100, L500.2500 #### [facility] [address] [place], [address] GFR/1.73 sq M.predicted among non-blacks MDRD (S/P/Bld) [Vol rate/Area] 57 mL/min/{1.73_m2} Low >60 [facility] Comment on above: Result Comment: mL/m in/1.73m2 CKD-EPI Creatinine Equation (2020) Performed By: #### L 100.0100, L500.2500 #### [facility] [address] [place], [address] T PROT 6.6 g/dL Normal 5.9-8.4 [facility] Comment on above: Performed By: #### L 100.0100, L500.2500 #### [facility] [address] [place], [address] Comprehensive Metabolic Prof ilOrdered By: Murphy Ramírez on 08-31-2024 AST [Catalytic activity/Vol] 21 U/L Normal <=31 [facility] Comment on above: Performed By: #### L 100.0100, L500.2500 #### [facility] [address] [place], [address] Echo Complete W/ Contraston 08-31-2024 Echo Complete W/ Contrast [facility] Cardiovascular Services [address] [place] [address] Echo Complete W/ Contrast 09/01/24 1349 MR#: [id number] Acct: [id number] Name: CHELSEA MOODY Ravinder Rep #: [id number] : 1940 83 From: Angel Shepard MD [...] By: Jer Valenzuela RCS 09/01/24 173 Date Angel Shepard MD CC: Dr. Severiano Ibarra DO; Dr. Kurt Lieberman MD; Dr. Dariana Wise DO Date Dictated: 09/01/24 1349 Date Transcribed: 09/01/24 173 [employer]: Signed Normal [facility] Emergency Department Summary on 08-31-2024 Emergency Department Summary [facility] Medical Records Department [address] [place] [address] Emergency Department Summary 08/31/24 MR#: [id number] Acct: [id number] Name: CHELSEA MOODY Rep #: [id number] : 1940 83 From: Murphy Ramírez DO PCP: Dr. Kurt Lieberman MD Status:REG ER Location: ED HPI History of Present Illness Chief Complaint: Dizziness [facility] Medical History (Updated 08/31/24 @ 20:30 by [...] (more content not included)... Normal [facility] Eosinophil percentageOrdered By: Murphy Ramírez on 08-31-2024 Eosinophils/100 WBC (Bld) 3.2 % Normal 0-5 [facility] Comment on above: Performed By: #### L 100.0100, L500.2500 #### [facility] [address] [place], [place], [id number] Epithelial cells.squamous LM Ql (Urine sed)Ordered By: Murphy Ramírez on 08-31-2024 Epithelial cells.squamous LM.HPF (Urine sed) [#/Area] 5 /[HPF] 5-10 [facility] Erythrocyte distribution wid th (RBC) [Ratio]Ordered By: Murphy Ramírez on 08-31-2024 Erythrocyte distribution width (RBC) [Entitic vol] 47.4 fL High 35.1-43.9 [facility] Erythrocyte distribution wid th ratioOrdered By: Murphy Ramírez on 08-31-2024 Erythrocyte distribution width (RBC) [Ratio] 14.3 % Normal 11.6-14.6 [facility] Comment on above: Performed By: #### L 100.0100, L500.2500 #### [facility] [address] [place], [place], [address] Estimation of creatinine samuel aranceOrdered By: Murphy Ramírez on 08-31-2024 Estimated Creatinine Clearance Calc 39.57 ml/min Low 50-250 [facility] Ethanol [Mass/Vol]Ordered By : Severiano Gordillo on 08-31-2024 Ethyl Alcohol Level < 10.1 mg/dL <10.1 [facility] Comment on above: This test is for med ical purposes only. The legal definition of intoxication varies according to local law. GFR/1.73 sq M.predicted albaro g non-blacks MDRD (S/P/Bld) [Vol rate/Area]Ordered By: Murphy Ramírez on 08-31-2024 Estimated GFR (MDRD) Non-Af Amer 57 Low >60 [facility] Comment on above: mL/min/1.73m2 CKD-EP I Creatinine Equation (2020) Glucose Ql (U)Ordered By: Elsa Ramírez on 08-31-2024 Urine Glucose (UA) Normal mg/dl Normal [facility] Gl[facility] at [facility] deOrdered By: Murphy Ramírez on 08-31-2024 Bedside Glucose (Misc Panel) 141 mg/dL High 74-106 [facility] Comment on above: MANAGEMENT OF PATIEN T CARE PER NURSING PROTOCOL H AND P Exam - Hospitaliston 08-31-2024 H&P Exam - Hospitalist [facility] Medical Records Department [address] [place] [address] H P Exam - Hospitalist 08/31/24 2305 MR#: [id number] Acct: [id number] Name: CHELSEA MOODY Rep #: [id number] : 1940 83 From: Severiano Ibarra DO PCP: Dr. Kurt Lieberman MD Status:ADM JAMES Location: [facility] [address] Date of Service: 08/31/24 Chief Complaint: Dizziness and Highly Elevated Blood Pressure. HPI Narrative CHELSEA MOODY, is a 83 F with a past medical history of essential hypertension; poorly-controlled on metoprolol, obesity; BMI of 39.5 this admission, DM-2; of unknown control on insulin glargine 8U at bedtime, GERD; currently not on treatment and OA who presents to [facility] ER complaining of dizziness and highly elevated [...] be less than 2 midnights. [facility] Medical History GERD (gastroesophageal reflux disease) Hypertension [...] (more content not included)... Normal [facility] HEMOGLOBIN A1con 08-31-2024 HEMOGLOBIN A1c 7.5 % [...] By: #### 4 96 #### [facility] [address], [address] [place] [id number] Rn Baby: Channing Quiroga MD Hemoglobin measurementOrdere d By: Murphy Ramírez on 08-31-2024 Hemoglobin (Bld) [Mass/Vol] 13.1 g/dL Normal 12.0-15.0 [facility] Comment on above: Performed By: #### L 100.0100, L500.2500 #### [facility] Laboratory [address] [place], [address] Immature granulocytes/100 WB C Auto (Bld)Ordered By: Murphy Ramírez on 08-31-2024 Immature granulocytes/100 WBC (Bld) 0.500 % 0.0-0.9 [facility] Comment on above: IG% - Immature Granu locytes (promyelocytes, myelocytes and metamyelocytes) > 1% indicates that a LEFT SHIFT is Present. Ketones Test strip Ql (U)Ord ered By: Murphy Ramírez on 08-31-2024 Ketones Ql (U) Negative Negative [facility] L499.0042on 08-31-2024 Trop T High Sen 13 ng/L Normal <=14 [facility] Comment on above: Result Comment: Tracie davis via OM: Ordered Performed By: #### L 100.0100, L500.2500 #### [facility] [address] [place], [address] L501.4021on 08-31-2024 Trop T High Sen 12 ng/L Normal <=14 [facility] Comment on above: Performed By: #### L 100.0100, L500.2500 #### [facility] [address] [place], [address] Lymphocytes Auto (Unsp spec) [#/Vol]Ordered By: Murphy Ramírez on 08-31-2024 Lymphocytes (Bld) [#/Vol] 2.74 10*3/uL 0.83-4.51 [facility] MCV (mean corpuscular volume ) determinationOrdered By: Murphy Ramírez on 08-31-2024 MCV (RBC) [Entitic vol] 90.2 fL Normal 81-99 [facility] Comment on above: Performed By: #### L 100.0100, L500.2500 #### [facility] [address] [place], [address] Mean corpuscular hemoglobin (MCH) determinationOrdered By: Murphy Ramírez on 08-31-2024 MCH (RBC) [Entitic mass] 30.7 pg Normal 27.0-32.0 [facility] Comment on above: Performed By: #### L 100.0100, L500.2500 #### [facility] [address] [place], [address] Mean corpuscular hemoglobin concentration (MCHC) determinationOrdered By: Murphy Ramírez on 08-31-2024 MCHC (RBC) [Mass/Vol] 34.0 g/dL Normal 32-36 [facility] Comment on above: Performed By: #### L 100.0100, L500.2500 #### [facility] [address] [place], [place], [id number] Mean platelet volume determi nationOrdered By: Murphy Ramírez on 08-31-2024 Platelet mean volume (Bld) [Entitic vol] 10.7 fL Normal 6.2-12.0 [facility] Comment on above: Performed By: #### L 100.0100, L500.2500 #### [facility] [address] [place] [place], [address] Methadone, urineOrdered By: Severiano Gordillo on 08-31-2024 Urine Methadone Screen Negative < 300 ng/mL [facility] Microscopic analysis of urin e for red blood cells (RBC)Ordered By: Murphy Ramírez on 08-31-2024 Microscopic analysis of urine for red blood cells (RBC) 0 SEEN /hpf 0-5 [facility] Urine RBC 0 SEEN /hpf 0-5 [facility] Monocyte percentageOrdered B y: Murphy Ramírez on 08-31-2024 Monocytes/100 WBC (Bld) 9.1 % Normal 0-10 [facility] Comment on above: Performed By: #### L 100.0100, L500.2500 #### [facility] [address] [place], [address] Mucus LM Ql (Urine sed)Order ed By: Murphy Ramírez on 08-31-2024 Mucus Ql (Urine sed) 0 SEEN /hpf [facility] Natriuretic peptide.B prohor josue N-Terminal [Mass/volume] in Serum or PlasmaOrdered By: Murphy Ramírez on 08-31-2024 Natriuretic peptide B (Bld) [Mass/Vol] 245 pg/mL Normal <=1800 [facility] Comment on above: Heart Failure Unlike ly: < 300 pg/mLHeart Failure Likely< 50 Years: > 450 pg/mL50-75 Years: > 900 pg/mL>75 Years: > 1800 pg/mL Result Comment: Hear t Failure Unlikely: < 300 pg/mL Heart Failure Likely < 50 Years: > 450 pg/mL 50-75 Years: > 900 pg/mL >75 Years: > 1800 pg/mL Performed By: #### L 100.0100, L500.2500 #### [facility] [address] [place], [place], [id number] Natriuretic peptide.B prohormone N-Terminal [Mass/Vol] 245 pg/mL <1800 [facility] Comment on above: Heart Failure Unlike ly: < 300 pg/mLHeart Failure Likely< 50 Years: > 450 pg/mL50-75 Years: > 900 pg/mL>75 Years: > 1800 pg/mL Neutrophil percentageOrdered By: Murphy Ramírez on 08-31-2024 Neutrophils/100 WBC (Bld) 61.5 % Normal 47-70 [facility] Comment on above: Performed By: #### L 100.0100, L500.2500 #### [facility] [address] [place], [address] Nitrite Test strip Ql (U)Ord ered By: Murphy Ramírez on 08-31-2024 Nitrite Ql (U) Negative Negative [facility] No Panel InformationOrdered By: Severiano Gordillo on 08-31-2024 Urine Buprenorphine Qualitative Negative < 200 ng/mL [facility] Urine Oxycodone Screen Negative < 100 ng/mL [facility] Nucleated red blood cell per centageOrdered By: Murphy Ramírez on 08-31-2024 Nucleated RBC/100 WBC (Bld) [Ratio] 0 % 0-5 [facility] Platelet countOrdered By: Elsa Ramírez on 08-31-2024 Platelets (Bld) [#/Vol] 296 10*3/uL Normal 150-450 [facility] Comment on above: Performed By: #### L 100.0100, L500.2500 #### [facility] [address] [place], [address] Potassium measurement (mass/ volume)Ordered By: Murphy Ramírez on 08-31-2024 Potassium [Moles/Vol] 4.2 mmol/L Normal 3.3-5.1 [facility] Comment on above: Performed By: #### L 100.0100, L500.2500 #### [facility] [address] [place], [address] Protein Test strip Ql (U)Ord ered By: Murphy Ramírez on 08-31-2024 Protein Ql (U) Negative Negative [facility] Quantitative urine opiates m easurementOrdered By: Severiano Godrillo on 08-31-2024 Opiates Ql (U) Negative < 300 ng/mL [facility] Screening urine fentanyl sandy surementOrdered By: Severiano Gordillo on 08-31-2024 fentaNYL Screen Ql (U) Negative [facility] Serum creatinine measurement (mass/volume)Ordered By: Murphy Ramírez on 08-31-2024 Creatinine [Mass/Vol] 0.99 mg/dL Normal 0.70-1.20 [facility] Comment on above: Performed By: #### L 100.0100, L500.2500 #### [facility] [address] [facility] [place], [address] Serum globulin measurementOr dered By: Murphy Ramírez on 08-31-2024 Globulin (S) [Mass/Vol] 2.7 g/dL Normal 2.2-4.2 [facility] Comment on above: Performed By: #### L 100.0100, L500.2500 #### [facility] [address] [place], [address] Serum glucose measurement (m ass/volume)Ordered By: Murphy Ramírez on 08-31-2024 Glucose [Mass/Vol] 155 mg/dL High 70-99 [facility] Comment on above: Performed By: #### L 100.0100, L500.2500 #### [facility] [address] [facility] [place], [address] Serum or plasma alanine jackson otransferase (ALT) measurementOrdered By: Murphy Ramírez on 08-31-2024 ALT [Catalytic activity/Vol] 26 U/L Normal <=34 [facility] Comment on above: Performed By: #### L 100.0100, L500.2500 #### [facility] [address] [place], [address] Serum or plasma albumin alfred urement (mass/volume)Ordered By: Murphy Ramírez on 08-31-2024 Albumin [Mass/Vol] 3.8 g/dL Normal 3.4-4.8 [facility] Comment on above: Performed By: #### L 100.0100, L500.2500 #### [facility] [address] [place], [address] Serum or plasma albumin/glob ulin mass ratioOrdered By: Murphy Ramírez on 08-31-2024 Albumin/Globulin [Mass ratio] 1.4 {ratio} Normal 0.9-2.4 [facility] Comment on above: Performed By: #### L 100.0100, L500.2500 #### [facility] [address] [place], [address] Serum or plasma alkaline windy sphatase measurementOrdered By: Murphy Ramírez on 08-31-2024 ALP [Catalytic activity/Vol] 123 U/L High 35-104 [facility] Serum or plasma calcium alfred urement (mass/volume)Ordered By: Murphy Ramírez on 08-31-2024 Calcium [Mass/Vol] 9.1 mg/dL Normal 7.6-11.0 [facility] Comment on above: Performed By: #### L 100.0100, L500.2500 #### [facility] [address] [place], [address] Serum or plasma ethanol alfred urement (mass/volume)Ordered By: Severiano Gordillo on 08-31-2024 Ethanol [Mass/Vol] mg/dL <10.1 [facility] Comment on above: This test is for med ical purposes only. The legal definition of intoxication varies according to local law. Serum or plasma urea nitroge n measurement (mass/volume)Ordered By: Murphy Ramírez on 08-31-2024 Urea nitrogen [Mass/Vol] 19 mg/dL Normal 4-19 [facility] Comment on above: Performed By: #### L 100.0100, L500.2500 #### [facility] [address] [place], [place], [address] Sodium levelOrdered By: Bekah Ramírez on 08-31-2024 Sodium [Moles/Vol] 136 mmol/L Normal 133-145 [facility] Comment on above: Performed By: #### L 100.0100, L500.2500 #### [facility] [address] [place], [place], [id number] Squamous epithelial cells de tection in urine sediment by light microscopyOrdered By: Murphy Ramírez on 08-31-2024 Epithelial cells.squamous LM Ql (Urine sed) 5-10 SEEN /hpf 5-10 [facility] TSH DL <= 0.005 mIU/L QnOrde red By: Severiano Gordillo on 08-31-2024 Thyroid Stimulating Hormone (TSH) 2.070 uIU/mL 0.300-4.200 [facility] TSH Qn 2.070 uIU/mL 0.300-4.200 [facility] Total proteinOrdered By: My Ramírez on 08-31-2024 Protein [Mass/Vol] 6.6 g/dL 5.9-8.4 [facility] Troponin T.cardiac High sens itivity method [Mass/Vol]Ordered By: Murphy Ramírez on 08-31-2024 Troponin T High Sensitivity 2 Hour 13 ng/L <14 [facility] Troponin T High Sensitivity 12 ng/L <14 [facility] Troponin T.cardiac [Mass/vol ume] in Serum or Plasma by High sensitivity methodOrdered By: Murphy Ramírez on 08-31-2024 Troponin T.cardiac High sensitivity method [Mass/Vol] 13 ng/L <14 [facility] Troponin T.cardiac High sensitivity method [Mass/Vol] 12 ng/L <14 [facility] Urinalysis, Completeon 08-31 BACTERIA 2+ /hpf Normal None Seen [facility] Comment on above: Order Comment: CLEAN CATCH Performed By: #### L 100.0100, L500.2500 #### [facility] [address] [place], [address] EPI,SQUAMOUS 5-10 SEEN Normal 5-10 [facility] Comment on above: Order Comment: CLEAN CATCH Performed By: #### L 100.0100, L500.2500 #### [facility] [address] [place], [address] WBC 0-5 SEEN Normal 0-5 [facility] Comment on above: Order Comment: CLEAN CATCH Performed By: #### L 100.0100, L500.2500 #### [facility] [address] [place], [address] Mucus Ql (Urine sed) 0 SEEN Normal [facility] Comment on above: Order Comment: CLEAN CATCH Performed By: #### L 100.0100, L500.2500 #### [facility] [address] [place], [address] RBC 0 SEEN Normal 0-5 [facility] Comment on above: Order Comment: CLEAN CATCH Performed By: #### L 100.0100, L500.2500 #### [facility] [address] [place], [address] Urine benzodiazepine levelOr dered By: Severiano Gordillo on 08-31-2024 Benzodiazepines Ql (U) Negative < 200 ng/mL [facility] Urine blood detectionOrdered By: Murphy Ramírez on 08-31-2024 Urine Occult Blood Negative Negative [facility] Urine clarityOrdered By: My Ramírez on 08-31-2024 Clarity (U) Clear Clear [facility] Urine cocaine levelOrdered B y: Severiano Gordillo on 08-31-2024 Cocaine Ql (U) Negative < 300 ng/mL [facility] Urine color determinationOrd ered By: Murphy Ramírez on 08-31-2024 Color (U) Yellow Yellow [facility] Urine [id number] abinol (THC) measurementOrdered By: Severiano Gordillo on 08-31-2024 Cannabinoids Screen Ql (U) Negative < 50 ng/mL [facility] Urine glucose detectionOrder ed By: Murphy Ramírez on 08-31-2024 Glucose Ql (U) Normal mg/dl Normal [facility] Urine leukocyte esterase det ection by dipstickOrdered By: Murphy Ramírez on 08-31-2024 Leukocyte esterase Test strip Ql (U) Negative Negative [facility] Urine pHOrdered By: Murphy sol on 08-31-2024 pH (U) 6.0 [pH] 5.0 - 8.0 [facility] Urine phencyclidine (PCP) de tectionOrdered By: Severiano Gordillo on 08-31-2024 Phencyclidine Ql (U) Negative < 25 ng/mL [facility] Urine sediment bacteria coun t by microscopy (number/high power field)Ordered By: Murphy Ramírez on 08-31-2024 Bacteria LM.HPF (Urine sed) [#/Area] 2 /[HPF] None Seen [facility] Urine specific gravity measu rementOrdered By: Murphy Ramírez on 08-31-2024 Specific gravity (U) [Rel density] 1.010 1.002-1.030 [facility] Urine urobilinogen measureme ntOrdered By: Murphy Ramírez on 08-31-2024 Urobilinogen Ql (U) Normal mg/dl Normal [facility] Urobilinogen Ql (U)Ordered B y: Murphy Ramírez on 08-31-2024 Urine Urobilinogen Normal mg/dl Normal [facility] White blood cell (WBC) count Ordered By: Murphy Ramírez on 08-31-2024 WBC (Bld) [#/Vol] 11.0 10*3/uL Normal 4.4-11.0 [facility] Comment on above: Performed By: #### L 100.0100, L500.2500 #### [facility] [address] [place], [place], [address] White blood cell countOrdere d By: Murphy Desiree on 08-31-2024 Urine WBC 0-5 SEEN /hpf 0-5 [facility] White blood cell count 0-5 SEEN /hpf 0-5 [facility] fentaNYL Screen Ql (U)Ordere d By: Severiano Gordillo on 08-31-2024 Urine Fentanyl Screen Negative [facility] Knee 3 Viewson 05-20-2024 Knee 3 Views [facility] Imaging Services [address] [place], [place] [address] Knee 3 Views MR#: [id number] Acct: [id number] Name: CHELSEA MOODY Rep #: [id number] : 1940 F 83 From: Chalo Herring MD PCP: Dr. Kurt Lieberman MD Status: REG CLI Study: Knee 3 Views Date of Exam: 05/20/24 Exam# [id number] Ordering Dr: Kurt Lieberman [place] [id number] STUDY: X-RAY - LEFT KNEE REASON FOR [...] EST , CC: Dr. Kurt Lieberman MD [employer]: Signed Normal [facility] ALBUMIN, RANDOM URINE W/NASREEN Sahni 12-19-2023 ALBUMIN, URINE <0.2 Normal See Note: [facility] Comment on above: Result Comment: Refe rence Range: Reference Range Not established Performed By: #### 6 399, 7600, 76860, 6517, 496 #### [facility] [address], [address] [place] [address] Rn Baby: Channing Quiroga MD ALBUMIN/CREATININE RATIO, RANDOM URINE [...] category. Performed By: #### 6 399, 7600, 53925, 6517, 496 #### [facility] [address], [address] [place] [address] Rn Baby: Channing Quiroga MD Creatinine (U) [Mass/Vol] 26 mg/dL Normal 20-275 [facility] Comment on above: Performed By: #### 6 399, 7600, 29007, 6517, 496 #### [facility] [address], [address] [place] [address] Rn Baby: Channing Quiroga MD CBC (INCLUDES DIFF/PLT)on Basophils (Bld) [#/Vol] 0.067 10*3/uL Normal 0-200 [facility] Comment on above: Performed By: #### 6 399, 7600, 47805, 6517, 496 #### [facility] [address], [address] [place] [address] Rn Baby: Channing Quiroga MD Basophils/100 WBC (Bld) 0.9 % Normal [facility] Comment on above: Performed By: #### 6 399, 7600, 05114, 6517, 496 #### [facility] [place] [address] Rn Baby: Channing Quiroga MD Eosinophils (Bld) [#/Vol] 0.311 10*3/uL Normal 15-500 [facility] Comment on above: Performed By: #### 6 399, 7600, 77352, 6517, 496 #### [facility] [place] [address] Rn Baby: Channing Quiroga MD Eosinophils/100 WBC (Bld) 4.2 % Normal [facility] Comment on above: Performed By: #### 6 399, 7600, 69555, 6517, 496 #### [facility] [place] [address] Rn Baby: Channing Quiroga MD Erythrocyte distribution width (RBC) [Ratio] 13.9 % Normal 11.0-15.0 [facility] Comment on above: Performed By: #### 6 399, 7600, 11480, 6517, 496 #### [facility] [place] [address] Rn Baby: Channing Quiroga MD Hematocrit (Bld) [Volume fraction] 42.5 % Normal 35.0-45.0 [facility] Comment on above: Performed By: #### 6 399, 7600, 05831, 6517, 496 #### [facility] [place] [address] Rn Baby: Channing Quiroga MD Hemoglobin (Bld) [Mass/Vol] 13.3 g/dL Normal 11.7-15.5 [facility] Comment on above: Performed By: #### 6 399, 7600, 76355, 6517, 496 #### [facility] [place] [address] [place] [address] Rn Baby: Channing Quiroga MD Lymphocytes (Bld) [#/Vol] 2.827 10*3/uL Normal 850-3900 [facility] Comment on above: Performed By: #### 6 399, 7600, 01849, 6517, 496 #### [facility] [place] [address] Rn Baby: Channing Qurioga MD Lymphocytes/100 WBC (Bld) 38.2 % Normal [facility] Comment on above: Performed By: #### 6 399, 7600, 18042, 6517, 496 #### [facility] [place] [address] Rn Baby: Channing Quiroga MD MCH (RBC) [Entitic mass] 29.8 pg Normal 27.0-33.0 [facility] Comment on above: Performed By: #### 6 399, 7600, 85080, 6517, 496 #### [facility] [place] [address] Rn Baby: Channing Quiroga MD MCHC (RBC) [Mass/Vol] 31.3 g/dL Low 32.0-36.[address] [facility] Comment on above: Performed By: #### 6 399, 7600, 82913, 6517, 496 #### [facility] [place] [address] Rn Baby: Channing Quiroga MD MCV (RBC) [Entitic vol] 95.3 fL Normal 80.0-100.0 [facility] Comment on above: Performed By: #### 6 399, 7600, 83036, 6517, 496 #### [facility] [place] [address] Rn Baby: Channing Quiroga MD Monocytes (Bld) [#/Vol] 0.792 10*3/uL Normal 200-950 [facility] Comment on above: Performed By: #### 6 399, 7600, 07479, 6517, 496 #### [facility] of [address], [address] [place] [address] Rn Baby: Channing Quiroga MD Monocytes/100 WBC (Bld) 10.7 % Normal [facility] Comment on above: Performed By: #### 6 399, 7600, 17034, 6517, 496 #### [facility] of [address], [address] [place] [address] Rn Baby: Channing Quiroga MD Neutrophils (Bld) [#/Vol] 3.404 10*3/uL Normal 6591-1629 [facility] Comment on above: Performed By: #### 6 399, 7600, 24348, 6517, 496 #### [facility] of [address], [address] [place] [address] Rn Baby: Channing Quiroga MD Neutrophils/100 WBC (Bld) 46 % Normal [facility] Comment on above: Performed By: #### 6 399, 7600, 24774, 6517, 496 #### [facility] [place] [address] Rn Baby: Channing Quiroga MD Platelet mean volume (Bld) [Entitic vol] 11.4 fL Normal 7.5-12.5 [facility] Comment on above: Performed By: #### 6 399, 7600, 35217, 6517, 496 #### [facility] of [address], [address] [place] [address] Rn Baby: Channing Quiroga MD Platelets (Bld) [#/Vol] 309 10*3/uL Normal 140-400 [facility] Comment on above: Performed By: #### 6 399, 7600, 10403, 6517, 496 #### [facility] [place] [address] Rn Baby: Channing Quiroga MD RBC (Bld) [#/Vol] 4.46 10*6/uL Normal 3.80-5.10 [facility] Comment on above: Performed By: #### 6 399, 7600, 75941, 6517, 496 #### [facility] [place] [address] Rn Baby: Channing Quiroga MD WBC (Bld) [#/Vol] 7.4 10*3/uL Normal 3.8-10.8 [facility] Comment on above: Performed By: #### 6 399, 7600, 80859, 6517, 496 #### [facility] [place] [address] Rn Baby: Channing Quiroga MD [facility]-2023 Albumin [Mass/Vol] 4.2 g/dL Normal 3.6-5.1 [facility] Comment on above: Performed By: #### 6 399, 7600, 92285, 6517, 496 #### [facility] [place] [address] Rn Baby: Channing Quiroga MD Albumin/Globulin [Mass ratio] 1.6 {ratio} Normal 1.0-2.5 [facility] Comment on above: Performed By: #### 6 399, 7600, 57501, 6517, 496 #### [facility] [place] [address] Rn Baby: Channing Quiroga MD ALP [Catalytic activity/Vol] 79 U/L Normal 37-153 [facility] Comment on above: Performed By: #### 6 399, 7600, 08538, 6517, 496 #### [facility] [place] [address] Rn Baby: Channing Quiroga MD ALT [Catalytic activity/Vol] 27 U/L Normal 6-29 [facility] Comment on above: Performed By: #### 6 399, 7600, 36575, 6517, 496 #### [facility] [place] [address] Rn Baby: Channing Quiroga MD AST [Catalytic activity/Vol] 18 U/L Normal 10-35 [facility] Comment on above: Performed By: #### 6 399, 7600, 68811, 6517, 496 #### [facility] [place] [address] Rn Baby: Channing Quiroga MD Bilirubin [Mass/Vol] 0.4 mg/dL Normal 0.2-1.2 [facility] Comment on above: Performed By: #### 6 399, 7600, 98143, 6517, 496 #### [facility] [place] [address] Rn Baby: Channing Quiroga MD Calcium [Mass/Vol] 9.6 mg/dL Normal 8.6-10.4 [facility] Comment on above: Performed By: #### 6 399, 7600, 56881, 6517, 496 #### [facility] [place] [address] Rn Baby: Channing Quiroga MD Chloride [Moles/Vol] 104 mmol/L Normal 98-110 [facility] Comment on above: Performed By: #### 6 399, 7600, 36716, 6517, 496 #### [facility] [place] [address] Rn Baby: Channing Quiroga MD CO2 [Moles/Vol] 27 mmol/L Normal 20-32 [facility] Comment on above: Performed By: #### 6 399, 7600, 61794, 6517, 496 #### [facility] [place] [address] Rn Baby: Channing Quiroga MD Creatinine [Mass/Vol] 1.11 mg/dL High 0.60-0.[address] [facility] Comment on above: Performed By: #### 6 399, 7600, 37691, 6517, 496 #### [facility] [place] [address] Rn Baby: Channing Quiroga MD GFR/1.73 sq M.predicted among non-blacks MDRD (S/P/Bld) [Vol rate/Area] 49 mL/min/{1.73_m2} Low > OR = 60 [facility] Comment on above: Performed By: #### 6 399, 7600, 15156, 6517, 496 #### [facility] [place] [address] Rn Baby: Channing Quiroga MD Globulin (S) [Mass/Vol] 2.7 g/dL Normal 1.9-3.7 [facility] Comment on above: Performed By: #### 6 399, 7600, 49050, 6517, 496 #### [facility] [place] [address] Rn Baby: Channing Quiroga MD Glucose [Mass/Vol] 137 mg/dL High 65-99 [facility] Comment on above: Result Comment: Fasting reference interval For someone without known diabetes, a glucose value >125 mg/dL indicates that they may have diabetes and this should be confirmed with a follow-up test. Performed By: #### 6 399, 7600, 31692, 6517, 496 #### [facility] [place] [address] Rn Baby: Channing Quiroga MD Potassium [Moles/Vol] 4.9 mmol/L Normal 3.5-5.[address] [facility] Comment on above: Performed By: #### 6 399, 7600, 24203, 6517, 496 #### [facility] [place] [address] Rn Baby: Channing Quiroga MD Protein [Mass/Vol] 6.9 g/dL Normal 6.1-8.1 [facility] Comment on above: Performed By: #### 6 399, 7600, 00468, 6517, 496 #### [facility] [place] [address] Rn Baby: Channing Quiroga MD Sodium [Moles/Vol] 138 mmol/L Normal 135-146 [facility] Comment on above: Performed By: #### 6 399, 7600, 26823, 6517, 496 #### [facility] [address], [address] [place] [address] Rn Baby: Channing Quiroga MD Urea nitrogen [Mass/Vol] 23 mg/dL Normal 7-25 [facility] Comment on above: Performed By: #### 6 399, 7600, 06693, 6517, 496 #### [facility] [address], [address] [place] [address] Rn Baby: Channing Quiroga MD Urea nitrogen/Creatinine [Mass ratio] 21 mg/mg Normal 6-22 [facility] Comment on above: Performed By: #### 6 399, 7600, 20943, 6517, 496 #### [facility] [address], [address] [place] [address] Rn Baby: Channing Quiroga MD HEMOGLOBIN A1con 12-19-2023 HEMOGLOBIN [...] change in test platforms from the [employer] to the Lucia francesco c503 may have shifted HbA1c results compared to historical results. Based on laboratory validation testing conducted at [employer], the Lucia platform relative to the [employer] [...] recommended. Performed By: #### 6 399, 7600, 66434, 6517, 496 #### [facility] [address], [address] [place] [address] Rn Baby: Channing Quiroga MD LIPID PANEL, [facility] 11-24 Cholesterol [Mass/Vol] 247 mg/dL High <200 [facility] Comment on above: Performed By: #### 6 399, 7600, 60665, 6517, 496 #### [facility] [address], [address] [place] [address] Rn Baby: Channing Quiroga MD Cholesterol in HDL [Mass/Vol] 56 mg/dL Normal > OR = 50 [facility] Comment on above: Performed By: #### 6 399, 7600, 52330, 6517, 496 #### [facility] [address], [address] [place] [address] Rn Baby: Channing Quiroga MD Cholesterol in LDL [Mass/Vol] [...] LDL-C. Trent SHER et al. ELIZ. 2013;310(19): 1518-8487 (http://education.[employer]/faq/YGU529) Performed By: #### 6 399, 7600, 97379, 6517, 496 #### [facility] [address], [address] [place] [address] Rn Baby: Channing Quiroga MD Cholesterol.total/Analy sterol in HDL [Mass ratio] 4.4 {ratio} Normal <5.0 [facility] Comment on above: Performed By: #### 6 399, 7600, 28351, 6517, 496 #### [facility] [address], [address] [place] [address] Rn Baby: Channing Quiroga MD NON HDL CHOLESTEROL 191 mg/dL (calc) High <130 [facility] Comment on above: Result Comment: For patients with diabetes plus 1 major ASCVD risk factor, treating to a non-HDL-C goal of <100 mg/dL (LDL-C of <70 mg/dL) is considered a therapeutic option. Performed By: #### 6 399, 7600, 71438, 6517, 496 #### [facility] [address], [address] [place] [address] Rn Baby: Channing Quiroga MD Triglyceride [Mass/Vol] 170 mg/dL High <150 [facility] Comment on above: Performed By: #### 6 399, 7600, 59033, 6517, 496 #### [facility] [address], [address] [place] [address] Rn Baby: Channing [facility] Visit ([facility]) CHELSEA MOODY ([id number]) 1940 F Date Time Provider Department 11/21/23 [...] November 21, 2023 9:50 AM Joy Gudino APRN.EVENT SET UP SPECIALIST 11/21/2023 10:02 AM Signed FOLLOW UP VISIT NAME: Chelsea Moody CLINIC NO.: [id number] DATE OF SERVICE: 11/21/2023 : 1940 REFERRING [...] or sooner if needed. __ Joy Gudino APRN.EVENT SET UP SPECIALIST Allergies As of Date: 11/21/2023 (Not on [...] Status:Closed by JOY GUDINO on 11/21/23 Normal [facility] SURGICAL PATHOLOGYOrdered By : Rylee Alvarez on 11-19-2023 Case Report Surgical Pathology Report Case: [id number] Authorizing Provider: Chalo Acosta MD Collected: 11/14/2023 04:05 PM Ordering Location: General Surgery Received: 11/14/2023 04:28 PM Pathologist: Rylee Alvarez MD Specimen: Skin Lesion/Soft Tissue Ulcer (Specify site in comment), rt upper lip [facility] Work Phone: Clinical History o8sceDIdCOPco9heOTDr bG MmPdBxGbQbReVwZki8KENy cfJ2Sfr3KLHbVLynwX5fVT UuSPuvW4uyzrXfoSIgSQYl VYb2yV1jvApjuM4hXgGeVu XoHLMcSCEix63sf0Eyxwam sVAcjWVjBZVsfHobA8ElL6 a7YFYznZXjKExntOvzOCTn fQ== [facility] Work Phone: Diagnosis Comment s9telMMpDVYhaCVvWQCn NV fqltUiXZZbdBNcU9Jkvkim OYmbEL4cEX5xrOvndITzgT MkMOHxJvYyj3efa235aKZt y4zcEAEPwwarbSi6sWwoS0 2zi8F1WiypT86egIXzYMW5 ZOBdYOLaqPGsHYFoHYB7BU PbnAZeD3jaNUOcHP3rdtes IGdrHQtvHMHtcBU7AUDyhY IgL9GhMIIkHErqVWUgymh0 PgKmXa8prEUozWydXEwpNF KjLBAsKAngWQNeFbOxAP7c KPnhQVaur4cnpoVryUYbMO IqTD3jsnSjh9p6GQT1V4ki MRIal3g7xDdvFIJxAKWgfY MlxdTbBkBgDRT9dL3sqeIl hfQhvXUhrRCtVz8kQMD4PT 9nbsJ6fQ6jNzUbeQQtzZ== [facility] Work Phone: FINAL DIAGNOSIS z6syuJVgGADzgMPwQSYu NV paayXoSFSgdIUgD8Telrzv OTkbEJ5pYA6etBhczKBrpF SiURVnIwXov2iip369sTJy l2ndBVSWwrjgbVm6xVhrZ5 4za1M3CrptD02jrWVuXYR5 SZBkXGXprCZaTPAxCSU3JN XbcZAnR3ylXIXmOP1afjei PBqrUKgeHHZaxLF4LJKseN ZyC2XcEFLwKYobGBLukpn2 OqWvJf2chVFqsTvtNUioYG MuEUTdSEvkHHUpNdOfSR2x Q2hzjttelohiaCKbsFFqUH HsxGwlBZYhpVOry6yrguhr yTWcRU9lXQ33BCMyabSpq8 ZhaU9qhGDfSAAoghFzHMSt UZEgwFGypK92bxEjBTeuVV KajwPeyk4bUZrml1LzMBIb oT2apoDaWMUhsw9= [facility] Work Phone: Gross Description b9cyjPGeSZUozGSfLIYj NV rbccUpPNFadCJlQ2Hbgchv NJudVY4uLZ0dwOttlFOxqE KpFBLiImVqo8psx896cMVt a1cxLKANazeezJv4cFzlR3 5tt2Z6DqboI02ucCUuSEB8 ZSRnMJPwzNPnOOXiDXX8MR PshYVbY0myQMIcQV6vtycu ABpuFJkwPXBryQW5EOCbgT FdU2UjSNPdWRvvRRXvgxw2 SbSpMc0raWEykMvaZIzzUv bocKddz1ZuaZEwHLlrEYQa TUCkGTpgmjyxROb5HUYaXA domUKcHM4pkXctDframQwn m1OtoPXuXRrsLSErFHNiQZ auSKCiT3RPOZMeExCmTFAy ZZkrMZu6CNt0JQ0XUwRsWH K6XLT5Mzm3QTUoSMg3QDeh TC0JXJGxTMTyMwPdFqybGW Q3ISQ4BFnkwQXxDWruz0Qq QkHbRRItNYmbnjB4SFYvtj BqqOhgjW4nBrIaBdWAMeFH z2gdHDuzp8rnie3Gq7A5XF Fql1D4YWHOzKEfobXdG5Ei K5iinTFrzUUeYTpsUSPbdA 1lbnQpXHBhclxwYXJkXHNi GuBhFJAwY9gdYuQoISZkXU luXGZzMjAgTGFiZWxlZDog DiAPaDyivCI5aQUbrtGcjX EnuVLntK3iE6ZnV7AaYevv YXJccGFyZCBSZWNlaXZlZD tfBh5jaXJtlW5zbPAlIS61 eVBzpdSrPyB1sVTawDZnHd DfQ50bvfSiTtSuGOZrmeHX sJRxnG4dgzYauB0xadCnb8 5zOiAwLjkgeCAwLjggeCAw FkxbN19ikGFfQY02S10rZR yqQZRpo3MsjQbol9sevIUn zPQrYIShsl7ycuLuj8LpDV 27j5ihZZaan1uclbB3gVJm IGNlbnRyYWwgdWxjZXJhdG yhvvByBCDjvGYgpndyBX25 LEbtLI22FAbgDV55FXEsTf RKbElkUNfvc6lejwClVdA5 cpY5sAIdjU9uTVJzsSDhZ4 ncDoSeCKNmH9riFApkx8Tx IGJsdWUpXHBhciBDYXNzZX A2OKPVg3TcTaDTj5LdtPu3 LMM2Cz4yhUEbWFHeZCM3aW 0mBSIlrX0yK7Pvk4I5sIFx QTEuXHBhclxwYXJccGFyIE SPREs2eqVtSpXaLGHuXgPc VHR6YlzfSQ0daQKjUYHcxy PFvd5yggFlbPOpwQ4hnOxi sjLnPCGty3AyJKBqSZGuY6 euvhXnKJ2yTPJlmR4iEfwc OTUwMCBFdWNsaWQgQXZlbn ThHYTKpNM5IQsfswMiAR4S UMX9LNz5WXLPXTDvEID6RL R1OBQiPATeyURhAODwEwWi WAPxB0ghXYFdd7alqHjru7 AsgQFbED21NFDgxVPpCVX9 KY8xePfoBEV4 [facility] Work Phone: Performing Lab r4eecYJoNYRerXIiQaEq MD FoFIBqh6spLIFnhPZtOgXu MzNcZnRuYmpcdWMxXGRlZm Jud7qnx635uKGqw3twXBWh BkT2vBVmLKSlqFYjI672XU UlQXyir3mfz1QcVNKjaUPz h5M0UTTJqnapcHr2gJcbQ1 5hj3U8DrpaK4nbLMJgBVBf U6GxGO1nOFSeDvs1NVM0CM T0VQSmOYExW4RcVU7tOMMa fVQsKIf1i6vydFnsUIDqHL U5w8jxIDkldjSwHH3qwj7z uEe9t2dvdxLeQENzNUQddL UBLJIvN0VpzXmuSc4frJb7 cSsqLcpzAYB8Yuv4EE0ljt 31acm7aRbaMKEfbedfAnS6 PAemOEOysmjpIKs9FRllUL SnvMR8JYZgfBHhB2IxFAhb IK1ouef6ZEO2KBvgLAGbVw D8KWDdtPNrZZHcsOnzAZrl t555FSO9WuGwOV7dH3Ldl1 R3xH5wvSGzCVBqgTSvIaTq YQVxcl9yaPZkPPjru5WxGK Q6gvM5qWYamBQrQQQhDG78 Naepa9DeVqugp6GtN50tiF Y9VCnlu3skJU4yMzK1iyBu NTwhk6oneV0yVrS0YTjoTF 4iTR4zSZShzQ5hhcszNEWp YnJkcmhlYWRccGdicmRyZm 3rqMqoXVX0SKiwB2leqD3t VyI9LXnyL9npqG9wFLb4RN wrfPS5IVDwiQ5yGU1ybjkr v1eyJKnwZBpzYQEczaI0ed PeZWFowEThA5TdhB6oYQOt DG9rpztnh8rsJLN5XGhjBH DfVMH4XsOdVPMoi7Htfsy6 DaMcq1RatERdCPhvE19ot9 46HYWdapUaE1clzJExcckj uZKazwvjHWfntwC3VDJgMC BsYWluXGYxXGZzMjBcbGFu ZzEwMzNcaGljaFxmMVxkYm OkZWAyWTrpU2pxPaJmFoXf ROHVtCDwbj6rdAirVFhcmR PbmWVcnNM6cF6gGDBysdTr ro2yAJHywHEXbQN2SAwdnf JkP5akktivPZG5MZOdZNC2 L0ypWGFLlcKjYLCcUFQsyJ ClFWJTGUV0GUA1UVZvISEC FZDzMAD7KZN3JZJwTAIesF FyXHBhclxwYXJkXHBsYWlu YHTeTMRsZsPfvBwqtA1rKz JmDdLtNJzfEL2iXCImR4nd qORfLIQzGAIaP8ynByFmkO 9jaFxmMVxjZjJcZnMyMFxs hIPgzXEABBLilhS6h8A6YS xwbGFpblxmMVxmczIwXGxh zklkKCRuEBgnN5icOoJaLK DjlRulDKfal3HrJYHvMHZl YmBuUFxjSUW9s0G2LPpruG ObluOZAaKABZ6odURjemyh VX6HJuzmaZOoosilQZfood LzCEryxabeISAjPGywQ4ri NvGiLKCktBxvDSqbz2JbLC YxXGZzMjJccGFyfQ== [facility] Work Phone: [facility] Work Phone: .GFRon 06-18-2019 GFR 63 ml/min/1.73sqm Normal [facility] ([place]) Comment on above: Result [...] #### A 1C, LIPID, CMP, GFR #### [address] [address] GFR Non- 52 ml/min/1.73sqm Normal [facility] ([place]) Comment on above: Result Comment: GFR Population [...] #### A 1C, LIPID, CMP, GFR #### [address] [address] A1Con 06-18-2019 HbA1c (Bld) [Mass fraction] 7.0 % High 4.5-6.2 [facility] ([place]) Comment on above: Performed By: #### A 1C, LIPID, CMP, GFR #### [address] [address] CMP 06-18-2019 Albumin [Mass/Vol] 3.8 G/dL Normal 3.4-4.8 [facility] ([place]) Comment on above: Performed By: #### A 1C, LIPID, CMP, GFR #### [address] [address] Albumin/Globulin [Mass ratio] 1.3 {ratio} Normal 1.1-2.5 [facility] ([place]) Comment on above: Performed By: #### A 1C, LIPID, CMP, GFR #### [address] [address] ALP [Catalytic activity/Vol] 76 U/L Normal 40-135 [facility] ([place]) Comment on above: Performed By: #### A 1C, LIPID, CMP, GFR #### [address] [address] ALT [Catalytic activity/Vol] 77 U/L High 10-35 [facility] ([place]) Comment on above: Performed By: #### A 1C, LIPID, CMP, GFR #### [address] [address] AST [Catalytic activity/Vol] 31 U/L Normal 10-40 [facility] ([place]) Comment on above: Performed By: #### A 1C, LIPID, CMP, GFR #### [address] [address] Bili Total 0.2 mg/dL Normal 0.2-1.0 [facility] ([place]) Comment on above: Performed By: #### A 1C, LIPID, CMP, GFR #### [address] [address] Calcium [Mass/Vol] 9.4 mg/dL Normal 8.4-10.2 [facility] ([place]) Comment on above: Performed By: #### A 1C, LIPID, CMP, GFR #### [address] [address] Chloride [Moles/Vol] 104 mmol/L Normal 98-107 [facility] ([place]) Comment on above: Performed By: #### A 1C, LIPID, CMP, GFR #### [address] [address] CO2 [Moles/Vol] 28 mmol/L Normal 23-31 [facility] ([place]) Comment on above: Performed By: #### A 1C, LIPID, CMP, GFR #### [address] [address] Creatinine [Mass/Vol] 1.02 mg/dL Normal 0.55-1.02 [facility] ([place]) Comment on above: Performed By: #### A 1C, LIPID, CMP, GFR #### [address] [address] Electrolyte Balance 7.0 mEq/L Normal [facility] ([place]) Comment on above: Performed By: #### A 1C, LIPID, CMP, GFR #### [address] [address] Globulin (S) [Mass/Vol] 3.0 G/dL Normal [facility] ([place]) Comment on above: Performed By: #### A 1C, LIPID, CMP, GFR #### [address] [address] Glucose [Mass/Vol] 113 mg/dL High 83-110 [facility] ([place]) Comment on above: Performed By: #### A 1C, LIPID, CMP, GFR #### [address] [address] Potassium [Moles/Vol] 5.9 mmol/L High 3.5-5.1 [facility] ([place]) Comment on above: Performed By: #### A 1C, LIPID, CMP, GFR #### [address] [address] Protein [Mass/Vol] 6.8 G/dL Normal 6.4-8.2 [facility] ([place]) Comment on above: Performed By: #### A 1C, LIPID, CMP, GFR #### [address] [address] Sodium [Moles/Vol] 139 mmol/L Normal 136-145 [facility] ([place]) Comment on above: Performed By: #### A 1C, LIPID, CMP, GFR #### [address] [address] Urea nitrogen [Mass/Vol] 20 mg/dL High 7-18 [facility] ([place]) Comment on above: Performed By: #### A 1C, LIPID, CMP, GFR #### [address] [address] Urea nitrogen/Creatinine [Mass ratio] 20 ratio Normal 7-27 [facility] ([place]) Comment on above: Performed By: #### A 1C, LIPID, CMP, GFR #### [address] [address] LIPIDon 06-18-2019 Cholesterol [Mass/Vol] 196 mg/dL Normal 0-200 [facility] ([place]) Comment on above: Result Comment: Chol esterol Reference Interval: Less than 200 Desirable 200-239 Borderline high risk 240 and above High risk Performed By: #### A 1C, LIPID, CMP, GFR #### [address] [address] Cholesterol in HDL [Mass/Vol] 42 mg/dL Normal 40-60 [facility] ([place]) Comment on above: Performed By: #### A 1C, LIPID, CMP, GFR #### [address] [address] Cholesterol in LDL [Mass/Vol] 125 mg/dL Normal 0-130 [facility] ([place]) Comment on above: Performed By: #### A 1C, LIPID, CMP, GFR #### [address] [address] Triglyceride [Mass/Vol] 145 mg/dL Normal 0-150 [facility] ([place]) Comment on above: Result Comment: Trig lyceride Reference Interval: Less than 150 Normal 150-199 Borderline high risk 200-499 High risk 500 or higher Very high risk Performed By: #### A 1C, LIPID, CMP, GFR #### [address] [address] Vital Signs Date Time Vital Sign Value Performing Clinician Facility 11-17-2024 18:52-0400 Body temperature 98.7 [degF] Dr. Kurt Lieberman MD Work Phone: [facility] 11-17-2024 18:52-0400 Diastolic blood pressure 46 mm[Hg] Dr. Kurt Lieberman MD Work Phone: [facility] 11-17-2024 18:52-0400 Heart rate 79 /min Dr. Kurt Lieberman MD Work Phone: [facility] 11-17-2024 18:52-0400 Respiratory rate 14 /min Dr. Kurt Lieberman MD Work Phone: [facility] 11-17-2024 18:52-0400 SaO2% (BldA) [Mass fraction] 98 % Dr. Kurt Lieberman MD Work Phone: [facility] 11-17-2024 18:52-0400 Systolic blood pressure 148 mm[Hg] Dr. Kurt Lieberman MD Work Phone: [facility] 11-17-2024 16:49-0400 Body mass index (BMI) [Ratio] 37.2 kg/m2 Dr. Kurt Lieberman MD Work Phone: [facility] 11-17-2024 16:49-0400 Body weight 75.[address] Kurt Lieberman MD Work Phone: [facility] 11-17-2024 12:53-0400 Body height 142.[address] Kurt Lieberman MD Work Phone: [facility] 11-16-2024 10:45-0400 Body weight 76.2 kg Angela High MD Work Phone: [facility] 11-16-2024 10:45-0400 Diastolic blood pressure 73 mm[Hg] Angela High MD Work Phone: [facility] 11-16-2024 10:45-0400 Heart rate 88 /min Angela High MD Work Phone: [facility] 11-16-2024 10:45-0400 Respiratory rate 16 /min Angela High MD Work Phone: [facility] 11-16-2024 10:45-0400 SaO2% (BldA) [Mass fraction] 98 % Angela High MD Work Phone: [facility] 11-16-2024 10:45-0400 Systolic blood pressure 171 mm[Hg] Angela High MD Work Phone: [facility] 10-30-2024 00:19-0400 Body temperature 97 [degF] Dr. Kurt Lieberman MD Work Phone: [facility] 10-30-2024 00:19-0400 Diastolic blood pressure 55 mm[Hg] Dr. Kurt Lieberman MD Work Phone: [facility] 10-30-2024 00:19-0400 Heart rate 101 /min Dr. Kurt Lieberman MD Work Phone: [facility] 10-30-2024 00:19-0400 Respiratory rate 18 /min Dr. Kurt Lieberman MD Work Phone: [facility] 10-30-2024 00:19-0400 SaO2% (BldA) [Mass fraction] 98 % Dr. Kurt Lieberman MD Work Phone: [facility] 10-30-2024 00:19-0400 Systolic blood pressure 203 mm[Hg] Dr. Kurt Lieberman MD Work Phone: [facility] 10-29-2024 23:24-0400 Body height 142.[address] Kurt Lieberman MD Work Phone: [facility] 10-29-2024 23:24-0400 Body mass index (BMI) [Ratio] 38.2 kg/m2 Dr. Kurt Lieberman MD Work Phone: [facility] 10-29-2024 23:24-0400 Body weight 77.[address] Kurt Lieberman MD Work Phone: [facility] 10-24-2024 09:30-0400 Body temperature 97.6 [degF] Dr. Kurt Lieberman MD Work Phone: [facility] 10-24-2024 09:30-0400 Diastolic blood pressure 48 mm[Hg] Dr. Kurt Lieberman MD Work Phone: [facility] 10-24-2024 09:30-0400 Heart rate 84 /min Dr. Kurt Lieberman MD Work Phone: [facility] 10-24-2024 09:30-0400 Respiratory rate 17 /min Dr. Kurt Lieberman MD Work Phone: [facility] 10-24-2024 09:30-0400 SaO2% (BldA) [Mass fraction] 97 % Dr. Kurt Lieberman MD Work Phone: [facility] 10-24-2024 09:30-0400 Systolic blood pressure 168 mm[Hg] Dr. Kurt Lieberman MD Work Phone: [facility] 10-23-2024 10:38-0400 Body height 142.[address] Kurt Lieberman MD Work Phone: [facility] 10-23-2024 10:38-0400 Body weight 76.[address] Kurt Lieberman MD Work Phone: [facility] 10-22-2024 20:11-0400 Body mass index (BMI) [Ratio] 37.8 kg/m2 Dr. Kurt Lieberman MD Work Phone: [facility] 10-22-2024 19:15-0400 Body temperature 96.5 [degF] Dr. Kurt Lieberman MD Work Phone: [facility] 10-22-2024 19:15-0400 Diastolic blood pressure 52 mm[Hg] Dr. Kurt Lieberman MD Work Phone: [facility] 10-22-2024 19:15-0400 Heart rate 80 /min Dr. Kurt Lieberman MD Work Phone: [facility] 10-22-2024 19:15-0400 Respiratory rate 16 /min Dr. Kurt Lieberman MD Work Phone: [facility] 10-22-2024 19:15-0400 SaO2% (BldA) [Mass fraction] 97 % Dr. Kurt Lieberman MD Work Phone: [facility] 10-22-2024 19:15-0400 Systolic blood pressure 153 mm[Hg] Dr. Kurt Lieberman MD Work Phone: [facility] 10-22-2024 17:23-0400 Body mass index (BMI) [Ratio] 38.1 kg/m2 Dr. Kurt Lieberman MD Work Phone: [facility] 10-22-2024 17:23-0400 Body weight 77.[address] Kurt Lieberman MD Work Phone: [facility] 10-22-2024 17:19-0400 Body height 142.[address] Kurt Lieberman MD Work Phone: [facility] 10-22-2024 13:04-0400 Body temperature 97.8 [degF] Dr. Kurt Lieberman MD Work Phone: [facility] 10-22-2024 13:04-0400 Body weight 75.[address] Kurt Lieberman MD Work Phone: [facility] 10-22-2024 13:04-0400 Diastolic blood pressure 64 mm[Hg] Dr. Kurt Lieberman MD Work Phone: [facility] 10-22-2024 13:04-0400 Heart rate 86 /min Dr. Kurt Lieberman MD Work Phone: [facility] 10-22-2024 13:04-0400 Respiratory rate 16 /min Dr. Kurt Lieberman MD Work Phone: [facility] 10-22-2024 13:04-0400 SaO2% (BldA) [Mass fraction] 97 % Dr. Kurt Lieberman MD Work Phone: [facility] 10-22-2024 13:04-0400 Systolic blood pressure 144 mm[Hg] Dr. Kurt Lieberman MD Work Phone: [facility] 10-11-2024 14:32-0400 Body weight 76.39 kg Angela High MD Work Phone: [facility] 10-11-2024 14:32-0400 Diastolic blood pressure 70 mm[Hg] Angela High MD Work Phone: [facility] 10-11-2024 14:32-0400 Heart rate 83 /min Angela High MD Work Phone: [facility] 10-11-2024 14:32-0400 Respiratory rate 16 /min Angela High MD Work Phone: [facility] 10-11-2024 14:32-0400 SaO2% (BldA) [Mass fraction] 98 % Angela High MD Work Phone: [facility] 10-11-2024 14:32-0400 Systolic blood pressure 156 mm[Hg] Angela High MD Work Phone: [facility] 10-06-2024 14:37-0400 Body temperature 97.6 [degF] Dr. Kurt Lieberman MD Work Phone: [facility] 10-06-2024 14:37-0400 Heart rate 57 /min Dr. Kurt Lieberman MD Work Phone: [facility] 10-06-2024 14:37-0400 Respiratory rate 18 /min Dr. Kurt Lieberman MD Work Phone: [facility] 10-06-2024 14:37-0400 SaO2% (BldA) [Mass fraction] 95 % Dr. Kurt Lieberman MD Work Phone: [facility] 10-06-2024 14:00-0400 Diastolic blood pressure 49 mm[Hg] Dr. Kurt Lieberman MD Work Phone: [facility] 10-06-2024 14:00-0400 Systolic blood pressure 142 mm[Hg] Dr. Kurt Lieberman MD Work Phone: [facility] 10-06-2024 04:30-0400 Body mass index (BMI) [Ratio] 637054.8 kg/m2 Dr. Kurt Lieberman MD Work Phone: [facility] 10-06-2024 04:30-0400 Body weight 79.[address] Kurt Lieberman MD Work Phone: [facility] 10-05-2024 12:00-0400 Body height 1.[address] Kurt Lieberman MD Work Phone: [facility] 10-05-2024 12:00-0400 Inhaled oxygen flow rate 2 L/min Dr. Kurt Lieberman MD Work Phone: [facility] 09-17-2024 11:18-0400 Body temperature 97.8 [degF] Dr. Kurt Lieberman MD Work Phone: [facility] 09-17-2024 11:18-0400 Body weight 78.[address] Kurt Lieberman MD Work Phone: [facility] 09-17-2024 11:18-0400 Diastolic blood pressure 70 mm[Hg] Dr. Kurt Lieberman MD Work Phone: [facility] 09-17-2024 11:18-0400 Heart rate 76 /min Dr. Kurt Lieberman MD Work Phone: [facility] 09-17-2024 11:18-0400 Respiratory rate 17 /min Dr. Kurt Lieberman MD Work Phone: [facility] 09-17-2024 11:18-0400 SaO2% (BldA) [Mass fraction] 97 % Dr. Kurt Lieberman MD Work Phone: [facility] 09-17-2024 11:18-0400 Systolic blood pressure 140 mm[Hg] Dr. Kurt Lieberman MD Work Phone: [facility] 09-10-2024 12:25-0400 Diastolic blood pressure 69 mm[Hg] Angela High MD Work Phone: [facility] 09-10-2024 12:25-0400 Heart rate 98 /min Angela High MD Work Phone: [facility] 09-10-2024 12:25-0400 Systolic blood pressure 138 mm[Hg] Angela High MD Work Phone: [facility] 09-10-2024 11:28-0400 Body weight 78.65 kg Angela High MD Work Phone: [facility] 09-10-2024 11:28-0400 Respiratory rate 18 /min Angela High MD Work Phone: [facility] 09-03-2024 14:00-0400 Body temperature 97.6 [degF] Dr. Kurt Lieberman MD Work Phone: [facility] 09-03-2024 14:00-0400 Diastolic blood pressure 72 mm[Hg] Dr. Kurt Lieberman MD Work Phone: [facility] 09-03-2024 14:00-0400 Heart rate 70 /min Dr. Kurt Lieberman MD Work Phone: [facility] 09-03-2024 14:00-0400 Respiratory rate 16 /min Dr. Kurt Lieberman MD Work Phone: [facility] 09-03-2024 14:00-0400 SaO2% (BldA) [Mass fraction] 98 % Dr. Kurt Lieberman MD Work Phone: [facility] 09-03-2024 14:00-0400 Systolic blood pressure 158 mm[Hg] Dr. Kurt Lieberman MD Work Phone: [facility] 09-03-2024 08:44-0400 Body mass index (BMI) [Ratio] 38.9 kg/m2 Dr. Kurt Lieberman MD Work Phone: [facility] 09-03-2024 03:34-0400 Body weight 80.[address] Kurt Lieberman MD Work Phone: [facility] 09-01-2024 14:52-0400 Body height 142.[address] Kurt Lieberman MD Work Phone: [facility] 09-01-2024 01:11-0400 Inhaled oxygen concentration 21 % Dr. Kurt Lieberman MD Work Phone: [facility] 08-31-2024 23:04-0400 Diastolic blood pressure 50 mm[Hg] Dr. Kurt Lieberman MD Work Phone: [facility] 08-31-2024 23:04-0400 Heart rate 79 /min Dr. Kurt Lieberman MD Work Phone: [facility] 08-31-2024 23:04-0400 Respiratory rate 23 /min Dr. Kurt Lieberman MD Work Phone: [facility] 08-31-2024 23:04-0400 Systolic blood pressure 138 mm[Hg] Dr. Kurt Lieberman MD Work Phone: [facility] 08-31-2024 22:50-0400 Body temperature 97.8 [degF] Dr. Kurt Liebemran MD Work Phone: [facility] 08-31-2024 22:50-0400 SaO2% (BldA) [Mass fraction] 97 % Dr. Kurt Lieberman MD Work Phone: [facility] 08-31-2024 19:32-0400 Body mass index (BMI) [Ratio] 39.4 kg/m2 Dr. Kurt Lieberman MD Work Phone: [facility] 08-31-2024 19:32-0400 Body weight 79.[address] Kurt Lieberman MD Work Phone: [facility] 08-31-2024 19:27-0400 Body height 142.[address] Kurt Lieberman MD Work Phone: [facility] 11-14-2023 15:30-0400 Diastolic blood pressure 82 mm[Hg] Chalo Acosta MD Work Phone: [facility] 11-14-2023 15:30-0400 Systolic blood pressure 150 mm[Hg] Chalo Acosta MD Work Phone: [facility] Encounters Encounter Date Encounter Type Care Provider Facility Start: 11-17-2024 Evaluation and management of inpatient Dr. Imelda Marsh MD -Medical Surgical 3 Work Phone: Start: 11-16-2024 End: 11-17-2024 Telephone encounter Angela High MD Work Phone: [facility] Start: 11-16-2024 End: 11-16-2024 Office outpatient visit 25 minutes Angela High MD Work Phone: [facility] Comment on above: Gagging episode (Vivienne barry Dx); Choking, subsequent encounter; Loss of appetite; Weight loss; Hallucinations; Primary hypertension; Muscle weakness (generalized); Hyponatremia; History of common carotid artery stent placement Start: 11-16-2024 End: 11-16-2024 ambulatory ANGELA HIGH Facility:[facility] Start: 11-15-2024 End: 11-15-2024 ambulatory Gianna Alicea RN NURSE VP TRANSPORTATION Comment on above: Information Start: 11-14-2024 End: 11-15-2024 ambulatory Angela High MD Work Phone: [facility] Comment on above: labs Start: 11-01-2024 Encounter for other preprocedural examination Ugo [place] [facility] Start: 10-29-2024 End: 10-30-2024 Emergency department patient visit Dr. Kurt Lieberman MD Work Phone: -Emergency Department Work Phone: Start: 10-27-2024 ambulatory [facility] Facility:[facility] Start: 10-24-2024 Non-patient / Non-visit Dr. Madison [facility] Work Phone: Start: 10-23-2024 Non-patient / Non-visit Dr. Madison [facility] Work Phone: Start: 10-22-2024 Non-patient / Non-visit Dr. Aurea Lockwood MD -[facility] Work Phone: Start: 10-22-2024 ambulatory Axel Lockwood Fac ility:[facility] Start: 10-22-2024 End: 10-24-2024 Evaluation and management of inpatient Dr. Axel Lockwood MD -Progressive Care Unit Work Phone: Start: 10-22-2024 End: 10-22-[address] Kurt Lieberman MD Work Phone: [facility] Work Phone: Start: 10-22-2024 End: 10-22-2024 Patient encounter procedure Sonali Harobetsy TOMLINSON [facility] Work Phone: Start: 10-22-2024 End: 10-22-2024 Patient encounter procedure Sonali TOMLINSON -[facility] Work Phone: Start: 10-22-2024 End: 10-22-[address] Kurt Lieberman MD Work Phone: [facility] Work Phone: Start: 10-22-2024 End: 10-22-2024 ambulatory Sonali Haro Facility:[facility] Start: 10-20-2024 End: 10-22-2024 ambulatory Angela High MD Work Phone: [facility] Comment on above: Omeprazole Start: 10-11-2024 End: 10-11-2024 Office outpatient visit 25 minutes Angela High MD Work Phone: [facility] Comment on above: Type 2 diabetes rebecca itus without complication, without long- term current use of insulin (HCC); Essential (primary) hypertension; Tremor, unspecified; Difficulty in walking, not elsewhere classified; Screening for depression; Encounter for screening examination for other mental health and behavioral disorders; Cerebral infarction due to unspecified occlusion or stenosis of unspecified cerebral artery (HCC) Start: 10-11-2024 End: 10-11-2024 ambulatory ANGELA HIGH Facility:[facility] Start: 10-06-2024 Non-patient / Non-visit Sonali TOMLINSON -[facility] Start: 10-05-2024 ambulatory Ugo Rogel Facility:[facility] Start: 10-05-2024 End: 10-06-2024 Evaluation and management of inpatient Dr. Ugo Rogel MD -Intensive Care Unit Work Phone: Start: 10-05-2024 Non-patient / Non-visit Dr. Ugo keller MD -[facility] Start: 10-05-2024 ambulatory Ugo Rogel Facility:[facility] Start: 09-30-2024 End: 10-04-2024 ambulatory Angela High MD Work Phone: [facility] Comment on above: medication Start: 09-28-2024 End: 10-01-2024 ambulatory Angela High MD Work Phone: Internal Medicine [facility] Start: 09-17-2024 End: 09-17-2024 Patient encounter procedure Sonali Haro CT -[facility] Work Phone: Start: 09-17-2024 End: [...] Start: 09-10-2024 End: 09-10-2024 ambulatory ANGELA HIGH Facility:[facility] Start: 09-03-2024 Non-patient / Non-visit Dr. Dariana [facility] Work Phone: Start: 09-02-2024 Non-patient / Non-visit Dr. Dariana [facility] Work Phone: Start: 09-01-2024 End: 09-03-2024 ambulatory Sonali Haro Facility:[facility] Start: 09-01-2024 End: 09-03-2024 Evaluation and management of inpatient Dr. Dariana Wise DO [facility] Unit Work Phone: Start: 09-01-2024 ambulatory Angel Shepard Facility:[facility] Start: 09-01-2024 Non-patient / Non-visit Dr. John PENN -[facility] Start: 09-01-2024 ambulatory Ugo [place] Facility:[facility] Start: 09-01-2024 Non-patient / Non-visit Dr. Ugo keller MD -[facility] Start: 08-31-2024 ambulatory Severiano Ibarra Facili ty:[facility] Start: 08-31-2024 Evaluation and management of inpatient Dr. Severiano Ibarra DO -[facility] Unit Work Phone: Start: 08-31-2024 Non-patient / Non-visit Dr. Mateus Ibarra [facility] Work Phone: Start: 08-31-[address] Ephraim Lieberman MD Work Phone: [facility] Work Phone: Start: 06-01-2024 End: 06-01-2024 Orders Only Fabio TOMLINSON-C Work Phone: Orthopaedics Comment on above: Pain in both knees, unspecified chronicity (Primary Dx) Start: 05-20-2024 End: 05-20-[address] 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 Kurt Lieberman MD Work Phone: Start: 11-17-2024 CT of abdomen and pe lvis without contrast Dr. Kurt Lieberman MD Work Phone: Start: 11-17-2024 Urnls dip [...] Author Start: 10-11-2025 Anxiety Screening Anxiety Screening [facility] Start: 10-11-2025 Depression Screening Depression Scre ening [facility] Start: 01-24-2025 Influenza vaccination Influenz a Vaccine (Season Ended) [facility] Start: 12-14-2024 End: 12-14-2024 Patient encounter procedure 12/14/2024 9:20 AM EDT Office Visit [facility] [address] [place] [address] Angela High MD [address] [place] [address] 1 mo follow up [facility] Comment on above: 1 mo follow up Start: 11-22-2024 End: 11-22-2024 Patient encounter procedure 11/22/2024 10:40 AM EDT Office Visit [facility] [address] [place] [address] Angela High MD [address] [place] [address] 6 week f/u [facility] Comment on above: 6 week f/u Start: 11-17-2024 Hospital admission, emergency, from emergency room, medical nature [facility] Start: 11-17-2024 Verification routine [facility] Start: 11-17-2024 Admission procedure [facility] Start: 11-17-2024 [facility] Start: 11-16-2024 End: 11-16-2024 Patient encounter procedure 11/16/2024 10:40 AM EDT Office Visit [facility] [address] [place] [address] Angela High MD [address] [place] [address] swallowing issues, gagging, nausea weakness [facility] Comment on above: swallowing issues, g agging, nausea weakness Start: 11-15-2024 End: 02-14-2025 Basic metabolic 2000 panel - Serum or Plasma BASIC METABOLIC PANEL Lab Routine Hyponatremia Expected: 11/15/2024, Expires: 02/14/2025 [facility] Comment on above: Expected: 11/15/2024 , Expires: 02/14/2025 Start: 11-15-2024 End: 02-14-2025 CBC W Auto Differential panel - Blood COMPLETE BLOOD COUNT AND DIFFERENTIAL Lab Routine Hyponatremia Expected: 11/15/2024, Expires: 02/14/2025 [facility] Work Phone: Comment on above: Expected: 11/15/2024 , Expires: 02/14/2025 Start: 10-30-2024 [facility] Start: 10-24-2024 Patient discharge [facility] Start: 10-24-2024 Removal of urinary catheter [facility] Start: 10-23-2024 [facility] Start: 10-23-2024 Referral to service [facility] Start: 10-22-2024 End: 10-22-2024 [facility] Start: 10-22-2024 Care regimes management [facility] Start: 10-22-2024 Notification of physician [facility] Start: 10-22-2024 Following clinical pathway protocol [facility] Start: 10-22-2024 Ambulation without limitation [facility] Start: 10-22-2024 Assessment of risk o f venous thromboembolism [facility] Start: 10-22-2024 Insertion of cathete r into peripheral vein [facility] Start: 10-22-2024 Measuring intake and output [facility] Start: 10-22-2024 Providing care accor ding to standard [facility] Start: 10-22-2024 Verification routine [facility] Start: 10-22-2024 Admission procedure [facility] Start: 10-22-2024 Hospital admission, emergency, from emergency room, medical nature [facility] Start: 10-22-2024 Patient referral to dietitian [facility] Start: 10-11-2024 End: 10-11-2024 Patient encounter procedure 10/11/2024 2:20 PM EDT Office Visit Internal Medicine [address] [address] Angela High MD [address] [place] [address] 6 week f/u [facility] Comment on above: 6 week f/u Start: 10-06-2024 Patient discharge [facility] Start: 10-06-2024 [facility] Start: 10-06-2024 Inhalation therapy procedure [facility] Start: 10-05-2024 Introduction of urin ayleen catheter [facility] Start: 10-05-2024 Following clinical pathway protocol [facility] Start: 10-05-2024 Ambulation without limitation [facility] Start: 10-05-2024 Assessment of risk o f venous thromboembolism [facility] Start: 10-05-2024 Bedrest [facility] Start: 10-05-2024 Care regimes management [facility] Start: 10-05-2024 Catheterization of vein [facility] Start: 10-05-2024 Continuous pulse oximetry [facility] Start: 10-05-2024 Deep breathing and coughing exercises [facility] Start: 10-05-2024 Incentive spirometry [facility] Start: 10-05-2024 Insertion of cathete r into peripheral vein [facility] Start: 10-05-2024 Measuring intake and output [facility] Start: 10-05-2024 Notification of physician [facility] Start: 10-05-2024 Oxygen therapy [facility] Start: 10-05-2024 Patient referral to dietitian [facility] Start: 10-05-2024 Providing care accor ding to standard [facility] Start: 10-05-2024 Provision of activit y privileges [facility] Start: 10-05-2024 Pulse taking [facility] Start: 10-05-2024 Referral to occupati onal therapist [facility] Start: 10-05-2024 Referral to service [facility] Start: 10-05-2024 Taking patient vital signs [facility] Start: 10-05-2024 Vital signs measurements [facility] Start: 10-05-2024 End: 10-05-2024 [facility] Start: 10-05-2024 End: 10-05-2024 Elevation of head of bed [facility] Start: 10-05-2024 Admission procedure [facility] Start: 10-05-2024 Insertion of carotid artery stent Carotidstent (Right) [facility] Start: 10-05-2024 Patient referral to dietitian [facility] Start: 09-28-2024 End: 12-28-2024 CBC panel - Blood by Automated count COMPLETE BLOOD COUNT Lab Routine Type 2 diabetes mellitus without complication, without long-term current use of insulin (HCC) Expected: 09/28/2024, Expires: 12/28/2024 [facility] Comment on above: Expected: 09/28/2024 , Expires: 12/28/2024 Start: 09-28-2024 End: 12-28-2024 Hemoglobin A1c in Blood HEMOGLOBIN A1C Lab Routine Type 2 diabetes mellitus without complication, without long-term current use of insulin (HCC) Expected: 09/28/2024, Expires: 12/28/2024 [facility] Comment on above: Expected: 09/28/2024 , Expires: 12/28/2024 Start: 09-28-2024 End: 12-28-2024 Lipid 1996 panel - Serum or Plasma LIPID PANEL, FASTING Lab Routine Type 2 diabetes mellitus without complication, without long-term current use of insulin (HCC) Expected: 09/28/2024, Expires: 12/28/2024 [facility] Comment on above: Expected: 09/28/2024 , Expires: 12/28/2024 Start: 09-28-2024 End: 12-28-2024 Microalbumin/Creatinine [Mass Ratio] in Urine ALBUMIN/CREATININE RATIO, URINE Lab Routine Type 2 diabetes mellitus without complication, without long-term current use of insulin (HCC) Expected: 09/28/2024, Expires: 12/28/2024 [facility] Work Phone: Comment on above: Expected: 09/28/2024 , Expires: 12/28/2024 Start: 09-10-2024 End: 12-10-2024 Basic metabolic 2000 panel - Serum or Plasma BASIC METABOLIC PANEL Lab Routine Hypertension, unspecified type Expected: 09/10/2024, Expires: 12/10/2024 [facility] Work Phone: Comment on above: Expected: 09/10/2024 , Expires: 12/10/2024 Start: 09-03-2024 Patient discharge [facility] Start: 09-01-2024 Admission procedure [facility] Start: 09-01-2024 Referral to vascular surgeon [facility] Start: 09-01-2024 Application of intermittent pneumatic compression device [facility] Start: 09-01-2024 Following clinical pathway protocol [facility] Start: 09-01-2024 [facility] Start: 09-01-2024 Aspiration precautions [facility] Start: 09-01-2024 Cardiac monitoring [facility] Start: 09-01-2024 Catheterization of vein [facility] Start: 09-01-2024 Consultation [facility] Start: 09-01-2024 Elevation of head of bed [facility] Start: 09-01-2024 Exercises [facility] Start: 09-01-2024 Notification of physician [facility] Start: 09-01-2024 Oxygen therapy [facility] Start: 09-01-2024 Patient referral to dietitian [facility] Start: 09-01-2024 Referral to occupati onal therapist [facility] Start: 09-01-2024 Referral to service [facility] Start: 09-01-2024 Speech therapy assessment [facility] Start: 09-01-2024 Telemedicine consult ation with patient [facility] Start: 09-01-2024 Tobacco use cessatio n education [facility] Start: 09-01-2024 Vital signs measurements [facility] Start: 08-31-2024 MRI of brain without contrast Brain without Contrast [facility] Start: 08-31-2024 Thyroid stimulating hormone measurement [facility] Start: 08-31-2024 Admission procedure [facility] Start: 08-31-2024 End: 09-01-2024 [facility] Start: 08-31-2024 Hospital admission, emergency, from emergency room, medical nature [facility] Start: 08-31-2024 [facility] Start: 05-26-2024 Advance Directive Discussion Advance Directive Discussion [facility] Start: 05-26-2024 Medicare Advantage A nnual Wellness Visit Medicare Advantage Annual Wellness Visit [facility] Start: 01-25-2024 Covid-19 Vaccine ( season) Covid-19 Vaccine () [facility] Start: 01-25-2024 Influenza vaccination [facility] Start: 05-26-2023 Advance Directive Discussion Advance Directive Discussion [facility] Start: 05-26-2023 Behavioral Health Screening Behavioral Health Screening [facility] Start: 01-24-2023 Covid-19 Vaccine ( season) Covid-19 Vaccine ( season) [facility] Start: 12-29-2014 RSV Vaccine (1 - 1-d ose 75+ series) RSV Vaccine (1 - 1-dose 75+ series) [facility] Start: 12-29-2004 Pneumococcal Vaccine : 65+ (1 of 1 - PCV) Pneumococcal Vaccine: 65+ (1 of 1 - PCV) [facility] Start: 12-29-2004 Screening for osteoporosis Bone Density Screening [facility] Start: 1999 RSV Vaccine (1 - 1-d ose 60+ series) RSV Vaccine (1 - 1-dose 60+ series) [facility] Start: 12-29-1989 Pneumococcal Vaccine : 50+ (1 of 1 - PCV) Pneumococcal Vaccine: 50+ (1 of 1 - PCV) [facility] Start: 12-29-1989 Shingrix Vaccine (1 of 2) Thorpe grix Vaccine (1 of 2) [facility] Start: 12-29-1984 Diabetes Screening Diabetes Screenin g [facility] Start: 12-29-1958 Pneumococcal Vaccine : 50+ (1 of 2 - PCV) Pneumococcal Vaccine: 50+ (1 of 2 - PCV) [facility] Start: 12-29-1958 Urine microalbumin profile DTaP,Tdap,Td Vaccine (1 - Tdap) [facility] Start: 12-29-1957 Anxiety Screening Anxiety Screening [facility] Start: 12-29-1957 Depression Screening Depression Scre ening [facility] Start: 12-29-1957 Hepatitis B surface antibody level LDL Cholesterol [facility] Start: 12-29-1949 Diabetic foot examination Diabetic F oot Exam [facility] Start: 12-29-1949 Glaucoma screening Dilated Retinal E xam [facility] Start: 12-29-1949 Hepatitis B screening Urine Albumin:Creatinine Ratio [facility] Start: 12-29-1944 Hemoglobin A1c measurement HbA1C [facility] Amphetamines [Presen ce] in Urine by Screen method >1000 ng/mL [facility] Basic metabolic 2008 panel with ionized calcium - Serum or Plasma [facility] Benzodiazepine measurement, urine [facility] CBC W Auto Different ial panel - Blood [facility] Cocaine measurement, urine [facility] CTA Head vessels and Neck vessels W contrast IV [facility] Ethanol [Mass/volume ] in Serum or Plasma [facility] fentaNYL [Presence] in Urine by Screen method [facility] Folate [Moles/volume ] in Serum or Plasma [facility] Hemoglobin A1c/Hemoglobin.total in Blood [facility] Lactic acid measurement [facility] Methadone measuremen t, urine [facility] Microscopic urinalysis [facility] Organism count, microscopic method [facility] Patient Education ED Hematoma ED Skin Tear (Skin Avulsion) [facility] Work Phone: Patient referral [facility] Work Phone: Phencyclidine [Prese nce] in Urine [facility] End: 12-16-2025 RF videography Hypopharynx and Esophagus Views W liquid and paste contrast PO during swallowing XR MODIFIED BARIUM SWALLOW W SPEECH THERAPY Radiology Routine Gagging episode Choking, subsequent encounter 1 Occurrences starting 11/16/2024 until 12/16/2025 [facility] Work Phone: Comment on above: 1 Occurrences starti ng 11/16/2024 until 12/16/2025 Troponin T.cardiac [Mass/volume] in Serum or Plasma by High sensitivity method [facility] Urine cannabinoid measurement [facility] Urine culture [facility] Urine microscopy: epithelial cells [facility] Urine microscopy: re d cells [facility] Urine opiate measurement [facility] Videoswallow [facility] White blood cell count [facility] End: 07-01-2025 XR Knee - bilateral 4 Views XR KNEE GENERAL 4V AP BOTH/PA BOTH/LAT/MERC BILATERAL Radiology Routine Pain in both knees, unspecified chronicity 1 Occurrences starting 06/01/2024 until 07/01/2025 [facility] Work Phone: Comment on above: 1 Occurrences starti ng 06/01/2024 until 07/01/2025 End: 07-01-2025 XR Lower extremity - bilateral AP W standing XR LEG FRONTAL HIP TO ANKLE MECHANICAL AXIS Radiology Routine Pain in both knees, unspecified chronicity 1 Occurrences starting 06/01/2024 until 07/01/2025 [facility] Comment on above: 1 Occurrences starti ng 06/01/2024 until 07/01/2025 Immunizations Immunization Date Immunization Notes Care Provider [facility] 03-08-2016 influenza, injectabl e, quadrivalent, preservative free Dr. Kurt Lieberman MD Work Phone: [facility] 03-08-2016 influenza virus vaccine, unspecified formulation Gianna Alicea RN [facility] Payers Date Payer Category Payer Self-pay 2023 Medicare MMO MEDICARE MMO [employer]ANT[employer] O [id number] 2023-Present [phone] [address] [place] [address] [facility] [id number] 2023 Medicare (Managed Care) MMO [employer] HMO [id number] 2023 Medicare [id number] Medicare MEDICARE PART A B [id number] Unknown COMMERCIAL OTHER [id number] Unknown [id number] .2.462 Unknown [id number] 2.16.840.1.136461.3.579 .2.462 Unknown [id number] 2.16.840.1.608397.3.579 .2.462 Unknown [id number] 2.16.840.1.035550.3.579 .2.462 Unknown [id number] 2.16.840.1.145283.3.579 .2.462 Unknown [id number] 2.16.840.1.933997.3.579 .2.462 Unknown [id number] 2.16.840.1.489269.3.579 .2.462 Unknown [id number] 2..840.1.995824.3.579 .2.462 Unknown [id number] 2.16.840.1.311079.3.579 .2.462 Unknown [id number] 2.16.840.1.764348.3.579 .2.462 Unknown [id number] 2.16.840.1.632656.3.579 .2.462 Unknown [id number] 2.16.840.1.490139.3.579 .2.462 Unknown [id number] 2.16.840.1.453414.3.579 .2.462 Unknown [id number] 2.16.840.1.267240.3.579 .2.462 Unknown [id number] 2.16.840.1.557070.3.579 .2.462 Unknown [id number] 2.16.840.1.070095.3.579 .2.462 Unknown [id number] 2.16.840.1.805710.3.579 .2.462 Unknown [id number] 2.16.840.1.131309.3.579 .2.462 Unknown [id number] 2.16.840.1.148806.3.579 .2.462 Unknown [id number] 2.16.840.1.643448.3.579 .2.462 Unknown [id number] 2.16.840.1.550538.3.579 .2.462 Social History Date Type Detail Facility Start: 11-14-2023 End: 11-17-2024 Tobacco smoking status [facility] Never smoked tobacco [facility] Start: 11-14-2023 Tobacco use and exposure Smokeless tobacco non-user [facility] Start: 11-14-2023 End: 11-16-2024 Alcohol intake Current drinker of alcohol (finding) [facility] Start: 11-14-2023 End: 11-21-2023 History of Social function [facility] Start: 11-14-2023 End: 11-21-2023 Tobacco use panel [facility] National Score (1-100), lower number is lower risk 64 [facility] Start: 1940 Sex Assigned At Not on file [facility] Start: 08-31-2024 End: 09-03-2024 Sex Female (finding) [facility] Start: 1940 Sex Assigned At Female [facility] NEGATED: Highlighted row Not [facility] Medical Equipment Procedure Code Equipment Code Equipment Origin al Text Equipment Identifier Dates two times a day. TEST BLOOD SUGAR [id number] Start: 10-27-2023 Bare-metal carot id artery stent ()[id number] FDA Start: 10-05-2024 Goals Date Patient Goal Desired Activity /State Functional Status Date Assessment Result Facility 10-24-2024 Functional status Ambulates [facility] Work Phone: 10-06-2024 Functional status Bedside Commode [facility] Work Phone: 09-03-2024 Functional status Ambulates;Bathroom Priv ilege [facility] Work Phone: Mental Status Date Assessment Result Facility 10-24-2024 Cognitive function Voice/Name [facility] Work Phone: 10-22-2024 Cognitive function Level Of Cons ciousness Awake;Alert;Appropriate;Follow s Commands [facility] Work Phone: 10-06-2024 Cognitive function Voice/Name [facility] Work Phone: 09-03-2024 Cognitive function Voice/Name [facility] Work Phone: 08-31-2024 Cognitive function Awake;Alert;A ppropriate;Follow s Commands [facility] Work Phone: Clinical Notes 11-14-2023 to 11-17-2024 Note Date & Type Note Facility 11-17-2024 History and physi bryn note [facility] 11-17-2024 Discharge summary [facility] 11-17-2024 Radiology Diagnostic study note [facility] Imaging Services [address] [place], [place] [address] Abdomen/Pelvis without Cont MR#: [id number] Acct: [id number] Name: CHELSEA MOODY Rep #: [id number] : 1940 F 83 From: Kerri Dey MD PCP: Dr. Angela High MD Status: REG E R Study:Abdomen/Pelvis without Cont Date of Exa m: 11/17/24 Exam# [id number] Ordering Dr: Jany Toussaint DO PROCEDURE: ABDOMEN/PELVIS [...] abdominopelvic finding on noncontrast CT. Reading Location: [facility] CC: Dr. Angela High MD; Dr. Sherron Toussaint DO ~ [employer]: Signed [facility] 11-17-2024 Discharge summary Note Date/Time November 17, 2024 6:52pm [facility] Medical Records Department [address] [place] [address] Emergency Department Summary 11/17/24 MR#: [id number] Acct: [id number] Name: CHELSEA MOODY Rep #:[id number] : 1940 83 From: Sherron Bobo PCP: [...] urine output. Came in for further evaluation. [facility] Medical History Wears glasses Wears dentures [...] % (Auto) 66.1 Lymph % (Auto) 20.9 Greene % (Auto) 11.4 H Eos % (Auto) [...] Sl. Cloudy Urine pH 6.0 Ur Specific [place] 1.010 Urine Protein 30 H Urine Glucose [...] abdominopelvic finding on noncontrast CT. Reading Location: [facility] Discharge Plan Triage Chief Complaint: Nausea/Vomiting [...] MD [Primary Care Provider] - Print Language: Mosotho Disposition Disposition: Acute Care Hospital [facility] What to do if you have Problems For any increased pain, shortness of breath, bleeding, nausea or vomiting, chestpain, or any unexpected problems, contact your Primary Care Provider. Call [facility] ([phone]) or report to the closest Emergency Room. Call 911 if necessary. 11/17/241851 <Electronically signed by Sherron Toussaint DO> Cosigner Signature (if applicable): CC: Dr. Angela High MD ~ Signed [facility] Work Phone: 1(847) 439-375806-25-2025 Telephone encounter Note* Telephone Encounter - Marysol Christian RN - 11/17/2024 8:10 AM EDT Orders faxed to providers as requested by patient. Marysol Christian RN [facility]06-25-2025 Miscellaneous Notes* Telephone Encounter - Marysol Christian [...] Barium swallow testing to be faxed to [facility]. Marysol Christian RN documented [facility] Telephone encounter Note * Telephone Encounter - Angela High MD - 11/16/2024 5:13 PM EDT Please do the needful as requested by patient Regards, Angela High MD [facility]06-24-2025 NoteHNO ID: [id number] Author: ANGELA HIGH MD Service: ? Author [...] swallowing mechanism. - Referred to Dr. Shell, fire tender, for further evaluation. 2. Loss of appetite (R63.0) Weight loss (R63.4) Significant decrease in appetite and weight loss noted. Difficulty eating solid sandeep (more content not included)...[facility]06-24-2025 History of Present illness Narrative* Angela High [...] swallowing mechanism. - Referred to Dr. Shell, fire tender, for further evaluation. 2. Loss of appetite [...] any unintended typographical errors. Recording using ambient [employer] software for draft documentation of the visit was discussed with the patient/authorized traveling sales representative; all questions welcomed and answered. Patient/authorized traveling sales representative agreed to proceed Angela High MD documented [facility] encounterK[facility] Telephone encounter Note * Telephone Encounter - Marysol Christian RN - 11/16/2024 12:21 PM EDT Patient's daughter calls and is requesting Gastroenterology referral to be faxed to Dr. Shell office and for Barium swallow testing to be faxed to [facility]. Marysol Christian RN [facility]06-24-2025 Instructions* Patient Instructions* Angela High MD - [...] also refer you to Dr. Shell, a fire tender, for further evaluation of your gagging, loss [...] how we can help. documented in this encounterK[facility]06-[facility]-2025 Telephone encounter Note * Telephone Encounter - [...] have any questions, you can call Nurse special education classroom aide back. [facility]06-23-2025 Miscellaneous Notes* Telephone Encounter - Gianna Alicea [...] have any questions, you can call Nurse special education classroom aide back. documented in this encounterK[facility]06-07-2025 Discharge summary [facility] Medical Records Department [address] [place] [address] Emergency Department Summary 10/30/24 MR#: [id number] Acct: [id number] Name: CHELSEA MOODY Rep #:[id number] : 1940 83 From: Clay Resendez MD [...] any systemic symptoms of anemia or fevers. [facility] Medical History Wears glasses Wears dentures [...] Care Provider] - As Needed Print Language: Mosotho Disposition Disposition: Home, Self Care What to do if you have Problems For any increased pain, shortness of breath, bleeding, nausea or vomiting, chestpain, or any unexpected problems, contact your Primary Care Provider. Call [facility] ([phone]) or report tothe closest Emergency Room. Call 911 if necessary. 10/30/24 0022 Cosigner Signature (if applicable): CC: Dr. Angela High MD ~ Signed [facility]06-01-2025 Discharge summary Author [facility] Note Date/Time October 24, 2024 2:41p m [facility] Medical Records Department [address] [place] [address] Discharge Summary 10/24/24 1435 MR#: [id number] Acct: [id number] Name: CHELSEA MOODY Rep #:[id number] : 1940 83 From: Familia Hall barry HOLLAND PCP: Dr. Angela High MD Status:ADM I N Location: [place] [address] Providers Date of Admission: 10/22/24 Date of [...] 83-year-old female who presented to [facility] ED on 10/22/2024 with abnormal labs, weakness [...] Self Care Charges/Coding Visit Charges Inpatient E&M: 29728 Disch Hosp >30min 10/24/24 1441 <Electronically signed by Familia Manriquez DO> Cosigner Signature (if applicable): CC: Dr. Familia Manriquez DO; Dr. Angela High MD~ Signed [facility] Work Phone: 1(468) 721-252106-01-2025 Discharge summary Author Familia Manriquez [facility] Note Date/Time October 24, 2024 2:37p m [facility] Medical Records Department [address] [place] [address] Instructions for Home/Discharge Instructions 10/24/24 1435 MR#: [id number] Acct: [id number] Name: CHELSEA MOODY Rep #:[id number] : 1940 83 From: Familia anand DO [...] Axel Lockwood MD ~ Signed [facility] Work Phone: 1(204) 878-465306-01-2025 Discharge summary [facility] Medical Records Department [address] [place] [address] Discharge Summary 10/24/24 1435 MR#: [id number] Acct: [id number] Name: CHELSEA MOODY Rep #:[id number] : 1940 83 From: Familia anand DO PCP: Dr. Angela High MD Status:ADM I N Location: [place] [address] Providers Date of Admission: 10/22/24 Date of [...] 83-year-old female who presented to [facility] ED on 10/22/2024 with abnormal labs, weakness [...] Self Care Charges/Coding Visit Charges Inpatient E&M: 75918 Disch Hosp >30min 10/24/24 1441 Cosigner Signature (if applicable): CC: Dr. Familia Manriquez DO; Dr. Angela High MD~ Signed [facility]06-01-2025 Discharge summary [facility] Medical Records Department [address] [place] [address] Instructions for Home/Discharge Instructions 10/24/24 1435 MR#: [id number] Acct: [id number] Name: CHELSEA MOODY Rep #:[id number] : 1940 83 From: Familia anand DO [...] High MD; Dr. Axel Lockwood MD ~ [facility]06-01-2025 [facility] Medical Records Department [address] [place] [address] Discharge Summary 10/24/24 1435 MR#: [id number] Acct: [id number] Name: CHELSEA MOODY Rep #: [id number] : 1940 83 From: Familia Manriquez DO PCP: Dr. Angela High MD Status:ADM IN [facility] Providers Date of Admission: 10/22/24 Date of [...] 83-year-old female who presented to [facility] ED on 10/22/2024 with abnormal labs, weakness [...] Non-Af 63, (more content not included)...[facility]05-31-2025 Progress note Author Familia Manriquez [facility] Note Date/Time October 23, 2024 11:35 am [facility] Medical Records Department [address] [place] [address] Progress Note - Hospitalist 10/23/24 1011 MR#: [id number] Acct: [id number] Name: CHELSEA MOODY Rep #:[id number] : 1940 83 From: Familia anand DO PCP: Dr. Angela High MD Status:ADM I N Location: [place] [address] Reason for Visit Reason for Visit: Diagnoses [...] 77.8 H, Lymph % (Auto) 10.8 L, Greene % (Auto) 10.3 H, Eos % (Auto) [...] Clarity Clear, Urine pH 6.0, Ur Specific [place] 1.005, Urine Protein 15 H, Urine Glucose [...] 72.5 H, Lymph % (Auto) 13.7 L, Greene % (Auto) 12.0 H, Eos % (Auto) [...] 83-year-old female who presented to [facility] ED on 10/22/2024 with abnormal labs, weakness [...] 35 minutes. Charges/Coding Visit Charges Inpatient E&M: 85732 Subs Hosp L2 10/23/24 8685 <Electronically signed by Familia Mosteller DO> Cosigner Signature (if applicable): CC: ~ Signed [facility] Work Phone: 1(160) 863-954005-31-2025 Progress note [facility] Medical Records Department [address] [place] [address] Progress Note - Hospitalist 10/23/24 1011 MR#: [id number] Acct: [id number] Name: CHELSEA MOODY Rep #:[id number] : 1940 83 From: Familia anand DO PCP: Dr. Angela High MD Status:ADM I N Location: [place] [address] Reason for Visit Reason for Visit: Diagnoses [...] 77.8 H, Lymph % (Auto) 10.8 L, Greene % (Auto) 10.3 H, Eos % (Auto) [...] Clarity Clear, Urine pH 6.0, Ur Specific [place] 1.005, Urine Protein 15 H, Urine Glucose [...] 72.5 H, Lymph % (Auto) 13.7 L, Greene % (Auto) 12.0 H, Eos % (Auto) [...] 83-year-old female who presented to [facility] ED on 10/22/2024 with abnormal labs, weakness [...] 35 minutes. Charges/Coding Visit Charges Inpatient E&M: 75072 Subs Hosp L2 10/23/24 1135 Cosigner Signature (if applicable): CC: ~ Signed [facility]05-31-2025 Discharge summary Author Jony Lambert [facility] Note Date/Time October 22, 2024 11:02 pm [facility] Medical Records Department [address] [place] [address] Emergency Department Summary 10/22/24 MR#: [id number] Acct: [id number] Name: CHELSEA MOODY Rep #:[id number] : 1940 83 From: Jony Lambert DO PCP: Dr. Angela High MD Status:ADM I N Location: [place] [address] HPI History of Present Illness Chief Complaint: [...] is eating less but still drinking fluids [facility] Medical History (Updated 10/22/24 @ 19:13 by [...] 77.8 H Lymph % (Auto) 10.8 L Greene % (Auto) 10.3 H Eos % (Auto) [...] Weakness, Hypertension, History of stroke Disposition Disposition: [facility] What to do if you have Problems For any increased pain, shortness of breath, bleeding, nausea or vomiting, chestpain, or any unexpected problems, contact your Primary Care Provider. Call [facility] ([phone]) or report to the closest Emergency Room. Call 911 if necessary. 05/30/25 2302 <Electronically signed by Jony Lambert DO> Cosigner Signature (if applicable): CC: Dr. Angela High MD ~ Signed [facility] Work Phone: 1(923) 462-356005-31-2025 History and physical note Author Axel Lockwood [facility] Note Date/Time October 22, 2024 10:19 pm [facility] Medical Records Department [address] [place] [address] H&P Exam - Hospitalist 10/22/242010 MR#: [id number] Acct: [id number] Name: CHELSEA MOODY Rep #:[id number] : 1940 83 From: Axel trujillo MD PCP: Dr. Angela High MD Status:ADM I N Location: [place] [address] HPI - General General Date of Admission: [...] a stroke back in August. [facility] Medical History Wears glasses Wears dentures Bruising [...] 77.8 H, Lymph % (Auto) 10.8 L, Greene % (Auto) 10.3 H, Eos % (Auto) [...] Clarity Clear, Urine pH 6.0, Ur Specific [place] 1.005, Urine Protein 15 H, Urine Glucose [...] with colleagues Charges/Coding Visit Charges Inpatient E&M: 85874 Init Hosp L3 10/22/24 2219 <Electronically signed by Axel Lockwood MD> Cosigner Signature (if applicable): CC: Dr. Angela High MD; Dr. Axel Lockwood MD~ Signed [facility] Work Phone: 1(574) 364-969405-30-2025 Discharge summary [facility] Medical Records Department [address] [place] [address] Emergency Department Summary 10/22/24 MR#: [id number] Acct: [id number] Name: CHELSEA MOODY Rep #:[id number] : 1940 83 From: Jony Lambert DO PCP: Dr. Angela High MD Status:ADM I N Location: [place] [address] HPI History of Present Illness Chief Complaint: [...] is eating less but still drinking fluids [facility] Medical History (Updated 10/22/24 @ 19:13 by [...] 77.8 H Lymph % (Auto) 10.8 L Greene % (Auto) 10.3 H Eos % (Auto) [...] of stroke Disposition Disposition: Acute Care Hospital [facility] What to do if you have Problems For any increased pain, shortness of breath, bleeding, nausea or vomiting, chestpain, or any unexpected problems, contact your Primary Care Provider. Call [facility] ([phone]) or report tothe closest Emergency Room. Call 911 if necessary. 10/22/24 2305 Cosigner Signature (if applicable): CC: Dr. Angela High MD ~ Signed [facility]05-30-2025 History and physical note [facility] Medical Records Department [address] [place] [address] H&P Exam - Hospitalist 10/22/242010 MR#: [id number] Acct: [id number] Name: CHELSEA MOODY Rep #:[id number] : 1940 83 From: Axel trujillo MD PCP: Dr. Angela High MD Status:ADM I N Location: [place] [address] HPI - General General Date of Admission: [...] a stroke back in August. [facility] Medical History Wears glasses Wears dentures Bruising [...] 77.8 H, Lymph % (Auto) 10.8 L, Greene % (Auto) 10.3 H, Eos % (Auto) [...] Clarity Clear, Urine pH 6.0, Ur Specific [place] 1.005, Urine Protein 15 H, Urine Glucose [...] with colleagues Charges/Coding Visit Charges Inpatient E&M: 79351 Init Hosp L3 10/22/24 2219 Cosigner Signature (if applicable): CC: Dr. Angela High MD; Dr. Axel Lockwood MD~ Signed [facility]05-30-2025 Radiology Diagnostic study note [facility] Imaging Services [address] [place] [address] CTA Head AND Neck W/ Contrast MR#: [id number] Acct: [id number] Name: CHELSEA MOODY Rep #: [id number] : 1940 F 83 From: Moreno Lee MD PCP: Dr. Angela High MD Status: REG C LI Study:CTA Head AND Neck W/ Contrast Date of E xam: 10/22/24 Exam# [id number] Ordering Dr: Eric Haro PA PROCEDURE: CTA [...] RIGHT Vertebral: Patent. LEFT Vertebral: Patent. Anatomy: [place] [facility] [place] anatomy is normal. Aneurysm or [...] characterization with ultrasound is recommended. Reading Location: [place] [address] CC: DAVI Green; Dr. Angela High MD ~ [employer]: Signed [facility]05-30-2025 Telephone encounter Note* Telephone Encounter - Sivakumar Barrios MA - 10/22/2024 9:08 AM EDT The following approved medication requests have been transmitted electronically. Requested Prescriptions Signed Prescriptions Disp Refills omeprazole (PRILOSEC) 40 mg capsule 90 capsule 1 Sig: Take 1 capsule by mouth once daily. Sivakumar Barrios MA [facility]05-30-2025 Miscellaneous Notes* Telephone Encounter - Sivakumar Barrios MA - 10/22/2024 9:08 AM EDT The following approved medication requests have been transmitted electronically. Requested Prescriptions Signed Prescriptions Disp Refills omeprazole (PRILOSEC) 40 mg capsule 90 capsule 1 Sig: Take 1 capsule by mouth once daily. Sivakumar Barrios MA documented in this encounterK[facility]05-19-2025 NoteHNO ID: [id number] Author: ANGELA HIGH MD Service: ? Author [...] (R26.2) Decreased mobility a (more content not included)...[facility] 10-11-2024 History of Present illness Narrative* Angela [...] excuse any unintended typographical errors. Recording using [employer] software for draft documentation of the visit was discussed with the patient/authorized traveling sales representative; all questions welcomed and answered. Patient/authorized traveling sales representative agreed to proceed Angela High MD documented in this encounterK[facility]05-19-2025 Instructions* Patient Instructions* Angela High MD - [...] your medications or recovery. documented in this encounterK[facility]05-14-2025 Discharge summary [facility] Medical Records Department [address] [place] [address] Discharge Summary 10/06/24 1257 MR#: [id number] Acct: [id number] Name: CHELSEA MOODY Rep #:[id number] : 1940 83 From: Sonali TOMLINSON PCP: Dr. Angela High MD Status:ADM I N Location: ICU ICU05-1 Providers Date of Admission: 10/05/24 Primary Care Physician: Dr. 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 I removed the CHITO drain meter maker of 10/06 without issue, subsequently she had [...] lb 4.28 oz Body Mass Index (BMI) 881207.8 ABG / Lab / Microbiology Data 10/06/24 [...] 80.6 H, Lymph % (Auto) 10.0 L, Greene % (Auto) 8.5, Eos % (Auto) 0.1, [...] as to take a bath [facility] 3 weeks. MEDICATION INSTRUCTIONS Continue to [...] call the office. Call the office at [phone] with any questions about your medications ACTIVITY [...] other questions/concerns, please call the office at [phone]. Please Follow Up With: Sonali Haro PA [...] as to take a bath or [facility] for 3 weeks. MEDICATION INSTRUCTIONS Continue to [...] call the office. Call the office at [phone] with any questions about your medications ACTIVITY [...] other questions/concerns, please call the office at [phone]. Discharge Orders/Prescriptions Prescriptions: New amlodipine 5 mg [...] Home, Self Care Charges/Coding Procedures Integumentary 111xxx-113xx: 50568 Global Visit 10/06/24 1501 Cosigner Signature (if applicable): 10/06/24 1647 CC: DAVI Green; Dr. Angela High MD; Dr. Ugo Rogel MD~ [facility]05-14-2025 Discharge summary Author Sonali [facility] Note Date/Time October 06, 2024 4:47p [facility] Medical Records Department [facility] [place] [address] Discharge Summary 10/06/24 1257 MR#: [id number] Acct: [id number] Name: CHELSEA MOODY Rep #:[id number] : 1940 83 From: Sonali TOMLINSON PCP: Dr. Angela High MD Status:ADM I N Location: ICU [place] [address] Providers Date of Admission: 10/05/24 Primary Care Physician: Dr. 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 I removed the CHITO drain meter maker of 10/06 without issue, subsequently she had [...] lb 4.28 oz Body Mass Index (BMI) 269415.8 ABG / Lab / Microbiology Data 10/06/24 [...] 80.6 H, Lymph % (Auto) 10.0 L, Greene % (Auto) 8.5, Eos % (Auto) 0.1, [...] as to take a bath or [facility] for 3 weeks. MEDICATION INSTRUCTIONS Continue to [...] call the office. Call the office at [phone] with any questions about your medications ACTIVITY [...] other questions/concerns, please call the office at [phone]. Please Follow Up With: Sonali Haro PA [...] as to take a bath or [facility] for 3 weeks. MEDICATION INSTRUCTIONS Continue to [...] call the office. Call the office at [phone] with any questions about your medications ACTIVITY [...] other questions/concerns, please call the office at [phone]. Discharge Orders/Prescriptions Prescriptions: New amlodipine 5 mg [...] Home, Self Care Charges/Coding Procedures Integumentary 111xxx-113xx: 17561 Global Visit 10/06/24 1501 <Electronically signed by Sonali TOMLINSON> Cosigner Signature (if applicable): 10/06/24 1647 <Electronically signed by Ugo Rogel MD> CC: DAVI Green; Dr. Angela High MD; Dr. Ugo Rogel MD~ Signed [facility] Work Phone: 1(966) 383-945305-14-2025 [facility] Medical Records Department [address] [place] [address] Discharge Summary 10/06/24 1257 MR#: [id number] Acct: [id number] Name: CHELSEA MOODY Rep #: [id number] : 1940 83 From: Sonali TOMLINSON PCP: Dr. Angela High MD Status:ADM IN Location: ICU [place] [address] Providers Date of Admission: 10/05/24 Primary Care Physician: Dr. 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 I removed the CHITO drain meter maker of 10/06 without issue, subsequently she had [...] lb 4.28 oz Body Mass Index (BMI) 963741.8 ABG / Lab / Microbiology Data 10/06/24 [...] 80.6 H, Lymph % (Auto) 10.0 L, Greene % (Auto) 8.5, Eos % (Auto) 0.1, [...] Needs Home (more content not included)...[facility]05-13-2025 Consult note Author Abhilash Serrano [facility] Note Date/Time October 05, 2024 2:04p [facility] Medical Records Department [address] [place] [address] Anesthesia Postop Eval II 10/05/24 1403 MR#: [id number] Acct: [id number] Name: CHELSEA MOODY Ravinder Rep #:[id number] : 1940 83 From: Abhilash Rousseau PCP: Dr. Angela High MD Status:ADM I N Y Race: C Location: ICU ICU05 - Anesthesia Postop Eval I Sum Postop Eval Completion status Anesthesia document: Postop Eval 1 completed: Yes Anesthesia Postop Eval I Summary Anesthesia Postop Eval I Summary: Anesthesia Postop Eval I: Assessment Summary Airway patent Yes 10/05/24 10:30 ENDODONTIC ASSISTANT.GDOTT Spontaneous unlabored Yes 10/05/24 10:30 ENDODONTIC ASSISTANT.GDOTT respirations Mental status Awake,Calm 10/05/24 10:30 ENDODONTIC ASSISTANT.GDOTT nausea No 10/05/24 10:30 ENDODONTIC ASSISTANT.GDOTT Vomiting No 10/05/24 10:30 ENDODONTIC ASSISTANT.GDOTT Anesthesia Postop Eval I: Fluid Summary Crystalloid volume administer 1,500 10/05/24 10:30 ENDODONTIC ASSISTANT.GDOTT (ml) Colloids volume administered ( ml) Blood Product volume administered (ml) Total IV fluid infused 1,500 10/05/24 10:30 ENDODONTIC ASSISTANT.GDOTT Anesthesia Postop Eval I: Summary Notes Anesthesia Complication No 10/05/24 10:30 ENDODONTIC ASSISTANT.GDOTT Anesthesia Complication Comment: Post-operative progress note Anesthesia: Postop Eval II Evaluation Mental status: Awake and Calm Pain Level: 3 nausea: No Vomiting: No Progress Note Post-operative progress note: Patient transferred to the ICU on 10 mcg/min nitroglycerin. meeting SBP goals Complications Anesthesia Complication: No 10/05/24 6158 <Electronically signed by Abhilash Serrano MD> Date _ Abhilash Serrano MD Cosigner Signature: Date CC: ~ Signed [facility] Work Phone: 1(118) 739-768805-13-2025 Procedure note [facility] Medical Records Department [address] [place] [address] Operative Report 10/05/24 0943 MR#: [id number] Acct: [id number] Name: CHELSEA MOODY Rep #:[id number] : 1940 83 From: Ugo Rogel MD PCP: Dr. Angela High MD Status:ADM I N Location: ICU ICU-1 Operative Report (Standard) Operative Information Date of Procedure: 10/05/24 Pre-Operative Diagnosis: right carotid stenosis Post-Operative Diagnosis: same Surgery/Procedure Performed: right carotid stent, trans carotid office cashier: Yes Branch Maker: Ingrid Rodríguez Tasks completed by orthotic assistant: Opening, Closing, Opening & closing, Hemostasis: [...] site the patient was taken to the [facility] where she was placed under general anesthesia. [...] the micropuncture sheath exchanged for the 8 Haitian venous return sheath. Next the common carotidartery [...] topical hemostatic was applied and a 19 Haitian channel CHITO placed via separate stab incision. [...] Dr. Ugo Rogel MD~ Signed [facility]05-13-2025 Consult note [facility] Medical Records Department [address] [place] [address] Anesthesia Postop Eval II 10/05/24 1403 MR#: [id number] Acct: [id number] Name: CHELSEA MOODY Rep #:[id number] : 1940 83 From: Abhilash Rousseau PCP: Dr. Angela High MD Status:ADM I N Y Race: C Location: ICU ICU Anesthesia Postop Eval I Sum Postop Eval Completion status Anesthesia document: Postop Eval 1 completed: Yes Anesthesia Postop Eval I Summary Anesthesia Postop Eval I Summary: Anesthesia Postop Eval I: Assessment Summary Airway patent Yes 10/05/24 10:30 ENDODONTIC ASSISTANT.GDOTT Spontaneous unlabored Yes 10/05/24 10:30 ENDODONTIC ASSISTANT.GDOTT respirations Mental status Awake,Calm 10/05/24 10:30 ENDODONTIC ASSISTANT.GDOTT nausea No 10/05/24 10:30 ENDODONTIC ASSISTANT.GDOTT Vomiting No 10/05/24 10:30 ENDODONTIC ASSISTANT.GDOTT Anesthesia Postop Eval I: Fluid Summary Crystalloid volume administer 1,500 10/05/24 10:30 ENDODONTIC ASSISTANT.GDOTT (ml) Colloids volume administered ( ml) Blood Product volume administered (ml) Total IV fluid infused 1,500 10/05/24 10:30 ENDODONTIC ASSISTANT.GDOTT Anesthesia Postop Eval I: Summary Notes Anesthesia Complication No 10/05/24 10:30 ENDODONTIC ASSISTANT.GDOTT Anesthesia Complication Comment: Post-operative progress note Anesthesia: Postop Eval II Evaluation Mental status: Awake and Calm Pain Level: 3 nausea: No Vomiting: No Progress Note Post-operative progress note: Patient transferred to the ICU on 10 mcg/min nitroglycerin. meeting SBP goals Complications Anesthesia Complication: No 10/05/24 1404 > Date _ Abhilash Serrano MD Cosigner Signature: Date CC: ~ Signed [facility]05-13-2025 Consult note Author Araceli Morejon [facility] Note Date/Time October 05, 2024 10:30 am [facility] Medical Records Department [address] [place] [address] Anesthesia Postop Eval I 10/05/24 1010 MR#: [id number] Acct: [id number] Name: JARAMACHELSEA Hayes Rep #:[id number] : 1940 83 From: Araceli Morejon PCP: [...] Signature: Date CC: ~ Signed [facility] Work Phone: 1(204) 445-204005-13-2025 Consult note [facility] Medical Records Department [address] [place] [address] Anesthesia Postop Eval I 10/05/24 1010 MR#: [id number] Acct: [id number] Name: HEIDYCHELSEA Ravinder Rep #:[id number] : 1940 83 From: Araceli Morejon PCP: [...] Signature: Date CC: ~ Signed [facility]05-13-2025 History and physical note Author Ugo Rogel [facility] Note Date/Time October 05, 2024 7:25a m [facility] Medical Records Department [address] [place] [address] History & Physical Exam 10/05/24724 MR#: [id number] Acct: [id number] Name: CHELSEA MOODY Rep #:[id number] : 1940 83 From: Ugo Rogel MD PCP: Dr. Angela High MD Status:ADM I N Location: [place] [address] History and Physical Allergies No Known Allergies [...] you fallen in the past year?: Yes [facility] History CVA (cerebral vascular accident) Diabetes mellitus, type 2 Obesity (BMI 30-39.9) GERD (gastroesophageal reflux disease) Hypertension Diabetes Social History Smoking Status: Never smoker HPI HPI HPI: CHELSEA MOODY, is a 83 F who presents to the office today for hospital follow- upfrom CVA. On 08/31/24, she presented to the [facility] ER with binocular vision darkeningand presyncope; she [...] Dr. Ugo Rogel MD~ Signed [facility] Work Phone: 1(326) 985-509205-13-2025 Consult note Author Abhilash Serrano [facility] Note Date/Time October 05, 2024 6:49a [facility] Medical Records Department [address] [place] [address] Pre-Anesthesia Evaluation 10/05/24 0639 MR#: [id number] Acct: [id number] Name: CHELSEA MOODY Rep #:[id number] : 1940 83 From: Abhilash Rousseau PCP: Dr. Angela High MD Status:ADM I N Y Race: C Location: [place] [address] ASA Classification* ASA Classification ASA Classification: 3 [...] CAROTID STENT Anesthesia History Anesthesia History - rn ostomy: Anesthesia History - rn ostomy Hx Hospitalization Yes: AT [facility]- STROKE 09/23/24 11:46 Any Problems With Anesthesia [...] take am of surgery PONV PONV - rn ostomy: PONV - rn ostomy Female Yes 09/23/24 11:46 HX of Motion [...] 10/05/24 05:50 Respiratory Assessment Respiratory Assessment - rn ostomy: Respiratory Tract Infection Hx - rn ostomy Hx Respiratory Tract Infection No 09/23/24 11:46 STOP Sleep Apnea STOP Sleep Apnea - rn ostomy: STOP Sleep Apnea - rn ostomy Hx Hypertension Yes 09/23/24 11:46 Hx Sleep [...] Tobacco Use History Tobacco Use History - rn ostomy: Tobacco Use History - rn ostomy Tobacco Use Smoking Status Never smoker 09/23/24 11:46 Hx Tobacco Use No 09/23/24 11:46 Years Smoking Packs Smoked per Day Smoking Cessation Date was within the last 15 years Hx Smoking Cessation Date Hx Smoking Cessation Counseling Hematologic Medial History Hematologic Hx - rn ostomy: Hematologic Medical Hx - performance tester Hx of Blood Transfusion No 09/23/24 11:46 Hx of Transfusion in last 3 No 09/23/24 11:46 Months Date of Last Transfusion (if within last 3 months) Ever experience any problems No 09/23/24 11:46 with transfusion(s)? Specify any problems Hx of Preganancy in last 3 No 09/23/24 11:46 Months Nurse Filling Out Transfusion [facility] 09/23/24 11:46 & Questions: Date: 09/23/24 09/23/24 11:46 Time: 11:53 09/23/24 11:46 Patient unable to answer at this time (ie. confused, unrespo /Reproduction History /Reproductive History - rn ostomy: /Reproductive Hx- rn ostomy Hx Now No 09/23/24 11:46 Gestational Age [...] Signature: Date CC: ~ Signed [facility] Work Phone: 1(461) 333-896405-13-2025 History and physical note [facility] Medical Records Department [address] [place] [address] History & Physical Exam 10/05/24724 MR#: [id number] Acct: [id number] Name: CHELSEA MOODY Rep #:[id number] : 1940 83 From: Ugo Rogel MD PCP: Dr. Angela High MD Status:ADM I N Location: [place] [address] History and Physical Allergies No Known Allergies [...] CVA. On 08/31/24, she presented to the [facility] ER with binocular vision darkeningand presyncope; she was found to be very hypertensive with systolics into the 260s. She underwent workup for stroke including Brain MRI which was positive forR frontal punctate infarct, Head/Neck CTA which showed significant R ICA mtxukncn02% by NASCET, and carotid duplex confirming >70% [...] Dr. Ugo Rogel MD~ Signed [facility]05-13-[address] [facility] Medical Records Department [address] [place] [address] History Physical Exam 10/05/24 0725 MR#: [id number] Acct: [id number] Name: HEIDYCHELSEA A Rep #: [id number] : 1940 83 From: Ugo Rogel MD PCP: Dr. Angela High MD Status:ADM IN Location: [place] [address] History and Physical Allergies No Known Allergies [...] in the past year?: Yes [facility] Medical History CVA (cerebral vascular accident) Diabetes mellitus, type 2 Obesity (BMI 30-39.9) GERD (gastroesophageal reflux disease) Hypertension Diabetes Social History Smoking Status: Never smoker HPI HPI HPI: CHELSEA MOODY, is a 83 F who presents to the office today for hospital follow-up from CVA. On 08/31/24, she presented to the [facility] ER with binocular vision darkening and presyncope; [...] grossly normal (more content not included)...[facility]05-13-2025 Consult note [facility] Medical Records Department [address] [place] [address] Pre-Anesthesia Evaluation 10/05/24 0639 MR#: [id number] Acct: [id number] Name: CHELSEA MOODY Rep #:[id number] : 1940 83 From: Abhilash Rousseau PCP: Dr. Angela High MD Status:ADM I N Y Race: C Location: [place] [address] ASA Classification* ASA Classification ASA Classification: 3 [...] CAROTID STENT Anesthesia History Anesthesia History - rn ostomy: Anesthesia History - rn ostomy Hx Hospitalization Yes: AT [facility]- STROKE 09/23/24 11:46 Any Problems With Anesthesia [...] take am of surgery PONV PONV - rn ostomy: PONV - rn ostomy Female Yes 09/23/24 11:46 HX of Motion [...] 10/05/24 05:50 Respiratory Assessment Respiratory Assessment - rn ostomy: Respiratory Tract Infection Hx - rn ostomy Hx Respiratory Tract Infection No 09/23/24 11:46 STOP Sleep Apnea STOP Sleep Apnea - rn ostomy: STOP Sleep Apnea - rn ostomy Hx Hypertension Yes 09/23/24 11:46 Hx Sleep [...] Tobacco Use History Tobacco Use History - rn ostomy: Tobacco Use History - rn ostomy Tobacco Use Smoking Status Never smoker 09/23/24 11:46 Hx Tobacco Use No 09/23/24 11:46 Years Smoking Packs Smoked per Day Smoking Cessation Date was within the last 15 years Hx Smoking Cessation Date Hx Smoking Cessation Counseling Hematologic Medial History Hematologic Hx - rn ostomy: Hematologic Medical Hx - performance tester Hx of Blood Transfusion No 09/23/24 11:46 Hx of Transfusion in last 3 No 09/23/24 11:46 Months Date of Last Transfusion (if within last 3 months) Ever experience any problems No 09/23/24 11:46 with transfusion(s)? Specify any problems Hx of Preganancy in last 3 No 09/23/24 11:46 Months Nurse Filling Out Transfusion [facility] 09/23/24 11:46 & Questions: Date: 09/23/24 09/23/24 11:46 Time: 11:53 09/23/24 11:46 Patient unable to answer at this time (ie. confused, unrespo /Reproduction History /Reproductive History - rn ostomy: /Reproductive Hx- rn ostomy Hx Now No 09/23/24 11:46 Gestational Age [...] Signature: Date CC: ~ Signed [facility]05-12-2025 Telephone encounter Note* Telephone Encounter - Sivakumar [...] three times a day. Sivakumar Barrios MA [facility]05-12-2025 Miscellaneous Notes* Telephone Encounter - Sivakumar Barrios [...] pharmacy. Barry Holt LPN [facility] Telephone encounter Note * Telephone Encounter - Barry Holt LPN - 09/30/2024 11:09 AM EDT Patient [employer]hart message requesting the following refill Refill(s) Requested: [...] (home) Last Office Visit Date: 09/10/2024 Last [facility] Health Visit: Visit date not found Future Appointment: 10/11/2024 The patients preferred pharmacy has been captured for this encounter? yes Request is for script(s) to be escript to pharmacy. Barry Holt LPN [facility]05-06-2025 NotePatient Outreach (INTMMN) CHELSEA MOODY ([id number]) 1940 F [facility] Date Time Provider Department 09/28/24 ANGELA HIGH During your visit today, we recorded the following information about you: Allergies As of Date: 09/28/2024 (No Known Allergies) Date Reviewed: 09/10/2024 Reviewed by: Leona Perry MA - Fully Assessed Visit Diagnosis:Type 2 diabetes mellitus without complication, without long-term current use of insulin (HCC) [E11.9] Order(s):ALBUMIN/CREATININE RATIO, URINE [SQUACR] Order #: [id number] FUTURE HEMOGLOBIN A1C [QFQXS1V] Order #: [id number] FUTURE LIPID PANEL, FASTING [SQLIPB] Order #: [id number] FUTURE COMPLETE BLOOD COUNT [SQCBC] Order #: [id number] FUTURE Prescriptions as of 10/01/2024 - atorvastatin [...] 09/10/2024 Encounter Status:Closed by RA PATRICK on 10/01/24[facility] 09-13-2024 Telephone encounter Note* Telephone Encounter - Pippa Nichols RN - 09/13/2024 8:53 AM EDT Daughter (Barry) calls to report that prescriptions for amlodipine and losartan- HCTZ were not received at [facility]. Called and spoke to Randa. Both prescriptions are ready for picking supervisor. Randa mentioned that patient hastwo accounts in her name. Call placed to daughter to notify. Message left for Barry. When returns call let her know medications are both ready for picking supervisor but I also wanted to mention to her that [facility] mentioned she had two accounts which might be causing confusion? Pippa Nichols RN [facility]04-21-2025 Miscellaneous Notes* Telephone Encounter - Pippa Nichols RN - 09/13/2024 8:53 AM EDT Daughter (Barry) calls to report that prescriptions for amlodipine and losartan- HCTZ were not received at [facility]. Called and spoke to Randa. Both prescriptions are ready for picking supervisor. Randa mentioned that patient hastwo accounts in her name. Call placed to daughter to notify. Message left for Barry. When returns call let her know medications are both ready for picking supervisor but I also wanted to mention to her that [facility] mentioned she had two accounts which might be causing confusion? Pippa Nichols RN documented in this encounterK[facility]-2025 Instructions* Patient Instructions* Angela High MD - [...] please contact our office. documented in this encounterK[facility]04-18-2025 NoteHNO ID: [id number] Author: ANGELA HIGH MD Service: ? Author Type: Physician Type: Progress Notes Filed: 09/10/2024 12:54 Note Text: [facility] visit: Date of Admission: 09/01/24 Date of Discharge: 09/03/24 Discharge Diagnosis (1) CVA (cerebral vascular accident): Status: Acute Discharge diagnoses: Acute right frontal lobe stroke Hypertensive emergency Carotid artery stenosis right greater than left Hyperlipidemia DM-2 uncontrolled Obesity Hypertension Please see hospital discharge below Hospital Course: Mrs. Underwood is an 83-year-old white female who presents emergency department at [facility] on 08/31/2024 with a chief complaint of [...] 0RF carvedilol 12.5 mg (more content not included)...[facility] 09-10-2024 History of Present illness Narrative* Angela High MD - 09/10/2024 11:23 AM EDT [facility] visit: Date of Admission: 09/01/24 Date of Discharge: 09/03/24 Discharge Diagnosis (1) CVA (cerebral vascular accident): Status: Acute Discharge diagnoses: Acute right frontal lobe stroke Hypertensive emergency Carotid artery stenosis right greater than left Hyperlipidemia DM-2 uncontrolled Obesity Hypertension Please see hospital discharge below Hospital Course: Mrs. Underwood is an 83-year-old white female who presents emergency department at [facility] on 08/31/2024 with a chief complaint of [...] any unintended typographical errors. Recording using ambient [employer] software for draft documentation of the visit was discussed with the patient/authorized traveling sales representative; all questions welcomed and answered. Patient/authorized traveling sales representative agreed to proceed Angela High MD * Leona Perry MA - 09/10/2024 11:20 AM EDT [facility] visit: Date of Admission: 09/01/24 Date of Discharge: 09/03/24 Discharge Diagnosis (1) CVA (cerebral vascular accident): Status: Acute Discharge diagnoses: Acute right frontal lobe stroke Hypertensive emergency Carotid artery stenosis right greater than left Hyperlipidemia DM-2 uncontrolled Obesity Hypertension Hospital Course: Mrs. Underwood is an 83-year-old white female who presents emergency department at [facility] on 08/31/2024 with a chief complaint of [...] 2. Additional description as above. R #: [id number] CT/CTA Head AND Neck W/ Contrast IMPRESSION: [...] Up: Angela High MD [Med Staff - Lean Manufacturing Specialist] - Within 1 Week Ugo Rogel MD [Med Staff - Active Staff] - Within 1 Week Kurt Lieberman MD [Primary Care Provider] - Choco Quinones MD [Non-Staff -Ordering Privileges] - See Referral Note (3 to 6months) documented in this encounterK[facility]04-18-2025 NoteHNO ID: [id number] Author: LEONA PERRY MA Service: ? Author Type: Support Director Type: Progress Notes Filed: 09/10/2024 12:54 Note Text: [facility] visit: Date of Admission: 09/01/24 Date of Discharge: 09/03/24 Discharge Diagnosis (1) CVA (cerebral vascular accident): Status: Acute Discharge diagnoses: Acute right frontal lobe stroke Hypertensive emergency Carotid artery stenosis right greater than left Hyperlipidemia DM-2 uncontrolled Obesity Hypertension Hospital Course: Mrs. Underwood is an 83-year-old white female who presents emergency department at [facility] on 08/31/2024 with a chief complaint of [...] IMPRESSION: 1. Punctate hi (more content not included)...[facility] 09-03-2024 Discharge summary Author Dariana Wise [facility] Note Date/Time September 03, 2024 2:0 4pm [facility] Medical Records Department [address] [place] [address] Discharge Summary 09/03/24 1210 MR#: [id number] Acct: [id number] Name: CHELSEA MOODY Rep #:[id number] : 1940 83 From: Dariana Wise DO PCP: Dr. Kurt Lieberman MD Status:A DM IN Location: [place] [address] Providers Date of Admission: 09/01/24 Date of [...] who presents emergency department at [facility] on 08/31/2024 with a chief complaint of [...] Std Deviation 48.5 H, RDW Coeff of Ósacr 14.4, Plt Count 281, MPV 10.9, Immature Gran % (Auto) 0.400, Neut % (Auto) 64.5, Lymph % (Auto) 22.9, Greene % (Auto) 9.8, Eos % (Auto) 1.9, [...] Up: Angela High MD [Med Staff - Lean Manufacturing Specialist] - Within 1 Week Ugo Rogel MD [Med Staff - Active Staff] - Within 1 Week Kurt Lieberman MD [Primary Care Provider] - Choco Quinones MD [Non-Staff -Ordering Privileges] - See Referral Note (3 to 6months) Disposition Disposition (needs filled in before D/C Order can be placed): Home, Self Care Charges/Coding Visit Charges Inpatient E&M: 78030 Disch Hosp >30min 09/03/24 1404 <Electronically signed by Dariana Wise DO> Cosigner Signature (if applicable): CC: Dr. Angela High MD; Dr. Ugo Rogel MD; Dr. Kurt Lieberman MD; Dr. Dariana Wise DO; Dr. Choco Quinones MD~ Signed [facility] Work Phone: 1(142) 996-900904-11-2025 Discharge summary [facility] Medical Records Department [address] [place] [address] Discharge Summary 09/03/24 1210 MR#: [id number] Acct: [id number] Name: CHELSEA MOODY Rep #:[id number] : 1940 83 From: Dariana Wise DO PCP: Dr. Kurt Lieberman MD Status:A DM IN [facility] Providers Date of Admission: 09/01/24 Date [...] who presents emergency department at [facility] on 08/31/2024 with a chief complaint of [...] Neut% (Auto) 64.5, Lymph % (Auto) 22.9, Greene % (Auto) 9.8, Eos % (Auto) 1.9, [...] Up: Angela High MD [Med Staff - Lean Manufacturing Specialist] - Within 1 Week Ugo Rogel MD [Med Staff - Active Staff] - Within 1 Week Kurt Lieberman MD [Primary Care Provider] - Choco Quinones MD [Non-Staff -Ordering Privileges] - See Referral Note (3 to 6months) Disposition Disposition (needs filled in before D/C Order can be placed): Home, Self Care Charges/Coding Visit Charges Inpatient E&M: 17390 Disch Hosp >30min 09/03/24 1404 Cosigner Signature (if applicable): CC: Dr. Angela High MD; Dr. Ugo Rogel MD; Dr. Kurt Lieberman MD; Dr. Dariana Wise DO; Dr. Choco Quinones MD~ Signed [facility]04-11-2025 [facility] Medical Records Department [address] [place] [address] Discharge Summary 09/03/24 1210 MR#: [id number] Acct: [id number] Name: CHELSEA MOODY Rep #: [id number] : 1940 83 From: Dariana Wise DO PCP: Dr. Kurt Lieberman MD Status:ADM IN Location: [facility] [id number] Providers Date of Admission: 09/01/24 Date of [...] who presents emergency department at [facility] on 08/31/2024 with a chief complaint of [...] 600 mg (more content not included)...[facility]04-10-2025 Progress note Author Monik Barker [facility] Note Date/Time September 02, 2024 9:2 1pm [facility] Medical Records Department [address] [place] [address] Progress Note - Neurology 09/02/24 1442 MR#: [id number] Acct: [id number] Name: CHELSEA MOODY Rep #:[id number] : 1940 83 From: Monik Barker MD PCP: Dr. Kurt Lieberman MD Status:A DM IN Location: [place] [address] Objective Data Objective Data Vital Signs: Vital [...] acute occlusion, dissection or aneurysm Reading [facility] [place] [facility] [place] Narrative -? NEURO: -? Mental [...] cont lipitor 40mg Smoking Cessation Diabetes Management manager long term care blood pressure control should achieve <130/80 mmHg. BP managementshould aim to achieve halfway contorl in a reasonable amount of time, [...] (if applicable): CC: ~ Signed [facility] Work Phone: 1(855) 400-451104-10-2025 Progress note [facility] Medical Records Department [address] [place] [address] Progress Note - Neurology 09/02/24 1442 MR#: [id number] Acct: [id number] Name: CHELSEA MOODY Rep #:[id number] : 1940 83 From: Monik Barker MD PCP: Dr. Kurt Lieberman MD Status:A DM IN Location: [place] [address] Objective Data Objective Data Vital Signs: Vital [...] acute occlusion, dissection or aneurysm Reading [facility] Narrative -? NEURO: -? [...] cont lipitor 40mg Smoking Cessation Diabetes Management intermediate blood pressure control should achieve <130/80 mmHg. [...] (if applicable): CC: ~ Signed [facility]04-10-2025 Progress note Author Dariana Wise [facility] Note Date/Time September 02, 2024 6:5 1pm [facility] Medical Records Department [address] [place] [address] Progress Note - Hospitalist 09/02/248 MR#: [id number] Acct: [id number] Name: CHELSEA MOODY Rep #:[id number] : 1940 83 From: Dariana Wise DO PCP: Dr. Kurt Lieberman MD Status:A DM IN [facility] Reason for Visit Reason for Visit: [...] fluid responsive. Charges/Coding Visit Charges Inpatient E&M: 64475 Subs Hosp L2 04/10/25 1851 <Electronically signed by Dariana Wise DO> Cosigner Signature (if applicable): CC: ~ Signed [facility] Work Phone: 1(309) 303-113304-10-2025 Progress note [facility] Medical Records Department [address] [place] [address] Progress Note - Hospitalist 09/02/24 1718 MR#: [id number] Acct: [id number] Name: CHELSEA MOODY Rep #:[id number] : 1940 83 From: Dariana Wise DO PCP: Dr. Kurt Lieberman MD Status:A DM IN Location: [place] [address] Reason for Visit Reason for Visit: Dizziness/hypertension [...] fluid responsive. Charges/Coding Visit Charges Inpatient E&M: 56194 Subs Hosp L2 09/02/24 1851 Cosigner Signature (if applicable): CC: ~ Signed [facility]04-10-2025 Consult note Author Sonali Haro [facility] Note Date/Time September 02, 2024 4:0 1pm [facility] Medical Records Department [address] [place] [address] Consultation - Surgical 09/01/24 1427 MR#: [id number] Acct: [id number] Name: CHELSEA MOODY Rep #:[id number] : 1940 83 From: Sonali TOMLINSON PCP: Dr. Kurt Lieberman MD Status:A DM IN Location: [place] [address] Assessment & Plan Assessment/Plan (1) CVA (cerebral [...] a 83 F who presented to the [facility] ER after an episode of darkening of [...] CKD, prior vascular surgical interventions. [facility] Medical History GERD (gastroesophageal reflux disease) Hypertension [...] % (Auto) 61.5, Lymph % (Auto) 24.9, Greene % (Auto) 9.1, Eos % (Auto) 3.2, [...] Clarity Clear, Urine pH 6.0, Ur Specific [place] 1.010, Urine Protein Negative, Urine Glucose (UA) [...] HDL Cholesterol 47, Cholesterol/HDL Ratio 4.38, Vitamin [id number] 09/01/24 06:26: POC Glucose 144 H Imaging Radiology Impression Brain CT 08/31/24 20:46 IMPRESSION: No acute intracranial abnormality. Chronic microvascular ischemia and involutional changes. Reading Location: [facility] Brain MRI 08/31/24 23:41 IMPRESSION: 1. Punctate high RIGHT frontal acute infarct. No mass-effect or appreciable hemorrhagic conversion. 2. Additional description as above. Reading Location: [facility] Carotid Duplex 08/31/24 23:41 Interpretation Summary Severe (>70%) stenosis right extracranial internal carotid. Mild (<50%) stenosis left extracranial internal carotid. Patent and antegrade vertebrals bilaterally. Ordering Physician: Severiano Ibarra Performed By: Na Isaac RVT Charges/Coding Visit Charges Inpatient E&M: 54957 Init Hosp L2 09/02/24 0728 <Electronically signed by Sonali TOMLINSON> Cosigner Signature (if applicable): 09/02/24 1601 <Electronically signed by Ugo Rogel MD> CC: Dr. Kutr Lieberman MD~ Signed [facility] Work Phone: 1(876) 643-791404-10-2025 Consult note [facility] Medical Records Department [address] [place] [address] Consultation - Surgical 09/01/24 1427 MR#: [id number] Acct: [id number] Name: CHELSEA MOODY Rep #:[id number] : 1940 83 From: Sonali TOMLINSON PCP: Dr. Kurt Lieberman MD Status:A DM IN Location: [facility]- 1 Assessment & Plan Assessment/Plan (1) CVA [...] a 83 F who presented to the [facility] ER after an episode of darkening of [...] CKD, prior vascular surgical interventions. [facility] Medical History GERD (gastroesophageal reflux disease) Hypertension [...] % (Auto) 61.5, Lymph % (Auto) 24.9, Greene % (Auto) 9.1, Eos % (Auto) 3.2, [...] Clarity Clear, Urine pH 6.0, Ur Specific [place] 1.010, Urine Protein Negative, Urine Glucose (UA) [...] HDL Cholesterol 47, Cholesterol/HDL Ratio 4.38, Vitamin C80034 09/01/24 06:26: POC Glucose 144 H Imaging Radiology Impression Brain CT 08/31/24 20:46 IMPRESSION: No acute intracranial abnormality. Chronic microvascular ischemia and involutional changes. Reading Location: [facility] Brain MRI 08/31/24 23:41 IMPRESSION: 1. Punctate high RIGHT frontal acute infarct. No mass-effect or appreciable hemorrhagic conversion. 2. Additional description as above. Reading Location: [id number] Carotid Duplex 08/31/24 23:41 Interpretation Summary Severe (>70%) stenosis right extracranial internal carotid. Mild (<50%) stenosis left extracranial internal carotid. Patent and antegrade vertebrals bilaterally. Ordering Physician: Severiano Ibarra Performed By: Na Isaac RVT Charges/Coding Visit Charges Inpatient E&M: 33210 Init Hosp L2 09/02/24 0728 Cosigner Signature (if applicable): 09/02/24 9188 CC: Dr. Kurt Lieberman MD~ Signed [facility]04-09-2025 Progress note Author Darianachad Wise [facility] Note Date/Time September 01, 2024 7:59 pm [facility] Medical Records Department [address] [place] [address] Progress Note - Hospitalist 09/01/24 0814 MR#: [id number] Acct: [id number] Name: CHELSEA MOODY Rep #:[id number] : 1940 83 From: Dariana Wise DO PCP: Dr. Kurt Lieberman MD Status:A DM IN Location: [place] [address] Reason for Visit Reason for Visit: Dizziness and Highly Elevated Blood Pressure Subjective Subjective Mrs. Underwood is an 83-year-old white female who presents emergency department at [facility] on 08/31/2024 with a chief complaint of [...] % (Auto) 61.5, Lymph % (Auto) 24.9, Greene % (Auto) 9.1, Eos % (Auto) 3.2, [...] Clarity Clear, Urine pH 6.0, Ur Specific [place] 1.010, Urine Protein Negative, Urine Glucose (UA) [...] HDL Cholesterol 47, Cholesterol/HDL Ratio 4.38, Vitamin [id number] 09/01/24 06:26: POC Glucose 144 H Radiography Diagnostic Testing: Radiology Impression Brain CT 08/31/24 20:46 IMPRESSION: No acute intracranial abnormality. Chronic microvascular ischemia and involutional changes. Reading Location: [facility] Physical Exam Const alert, oriented x3, no [...] ataxia on the left Coordination / Balance: reddpv-wc-zkqd test normal; Negative for bxkl-vs-popv test normal Speech: speech normal Psych affect [...] order placed Charges/Coding Visit Charges Inpatient E&M: 29226 Subs Hosp L3 09/01/241958 <Electronically signed by Dariana Wise DO> Cosigner Signature (if applicable): CC: ~ Signed [facility] Work Phone: 1(459) 249-465604-09-2025 Progress note [facility] Medical Records Department [address] [place] [address] Progress Note - Hospitalist 09/01/24 0814 MR#: [id number] Acct: [id number] Name: CHELSEA MOODY Rep #:[id number] : 1940 83 From: Dariana Wise DO PCP: Dr. Kurt Lieberman MD Status:A DM IN Location: [place] [address] Reason for Visit Reason for Visit: Dizziness and Highly Elevated Blood Pressure Subjective Subjective Mrs. Underwood is an 83-year-old white female who presents emergency department at [facility] on 08/31/2024 with a chief complaint of [...] % (Auto) 61.5, Lymph % (Auto) 24.9, Greene % (Auto) 9.1, Eos % (Auto) 3.2, [...] Clarity Clear, Urine pH 6.0, Ur Specific [place] 1.010, Urine Protein Negative, Urine Glucose (UA) [...] HDL Cholesterol 47, Cholesterol/HDL Ratio 4.38, Vitamin E32629 09/01/24 06:26: POC Glucose 144 H Radiography Diagnostic Testing: Radiology Impression Brain CT 08/31/24 20:46 IMPRESSION: No acute intracranial abnormality. Chronic microvascular ischemia and involutional changes. Reading [facility] Physical Exam Const alert, oriented x3, no [...] ataxia on the left Coordination / Balance: qbjjsk-sd-ptsy test normal; Negative for palr-nj-ewju test normal Speech: speech normal Psych affect [...] order placed Charges/Coding Visit Charges Inpatient E&M: 40031 Subs Hosp L3 09/01/241958 Cosigner Signature (if applicable): CC: ~ Signed [facility]04-09-2025 Consult note Author Monik Bakrer [facility] Note Date/Time September 01, 2024 4:21 pm [facility] Medical Records Department [address] [place] [address] Consultation - Neurology 09/01/24 1432 MR#: [id number] Acct: [id number] Name: CHELSEA MOODY Rep #:[id number] : 1940 83 From: Monik Barker MD PCP: Dr. Kurt Lieberman MD Status:A DM IN [facility] Assessment and Plan: Neuro Assessment/Plan CHELSEA [...] cont lipitor 40mg Smoking Cessation Diabetes Management manager long term care blood pressure control should achieve <130/80 mmHg. BP managementshould aim to achieve halfway contorl in a reasonable amount of time, [...] and OA who presents to [facility] ER complaining of dizziness and highly elevated [...] Currently no dizziness or lightheadedness. 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 Freq: [id number] Protocol: Activity Type Activity Date Activity User E-sign Co-sign Detail Recorded Client Recorded Date Recorded By Document 09/01/24 12:00 ML [id number] 09/01/24 12:25 ML 09/01/24 12:00 NIH Stroke [...] SA 5 5 EE EF WE WF Tram Inspector 5 5 HF KE KF DF PF [...] % (Auto) 61.5, Lymph % (Auto) 24.9, Greene % (Auto) 9.1, Eos % (Auto) 3.2, [...] Clarity Clear, Urine pH 6.0, Ur Specific [place] 1.010, Urine Protein Negative, Urine Glucose (UA) [...] microvascular ischemia and involutional changes. Reading Location: [facility] Brain MRI 08/31/24 23:41 IMPRESSION: 1. Punctate high RIGHT frontal acute infarct. No mass-effect or appreciable hemorrhagic conversion. 2. Additional description as above. Reading Location: [facility] Carotid Duplex 08/31/24 23:41 Interpretation Summary [...] Dr. Kurt Lieberman MD~ Signed [facility] Work Phone: 1([phone]) 314-614304-09-2025 Evaluation note* Diagnosis Onset Date Resolution Status [...] medication deleted September 012024 3:48pm [facility] Work Phone: 1([phone]) 562-740504-09-2025 Evaluation note* Diagnosis Onset Date Resolution Status [...] acute September 17, 2024 10:53am [facility] Work Phone: 1(220) [phone] Evaluation note* Diagnosis Onset Date Resolution Status [...] artery acute October 22, 2024 1 2:53pm [facility] Work Phone: [phone]) 203-198904-09-2025 Evaluation note* Diagnosis Onset Date Resolution Status [...] acute October 22, 2024 7:28pm [facility] Work Phone: [phone] Evaluation note* Diagnosis Onset Date Resolution Status [...] resolved October 22, 2024 7:28pm [facility] Work Phone: 1(659) [phone] Evaluation note* Diagnosis Onset Date Resolution Status [...] acute November 17, 2024 6:46pm [facility] Work Phone: [phone]) [phone] Radiology Diagnostic study note [facility] Imaging Services [address] [place] [address] CTA Head AND Neck W/ Contrast MR#: [id number] Acct: [id number] Name: CHELSEA MOODY Rep #: [id number] : 1940 F 83 From: Francisca Chapman MD PCP: Dr. Kurt Lieberman MD Status: A DM IN Study:CTA Head AND Neck W/ Contrast Date of E xam: 09/01/24 Exam# [id number] Ordering Dr: Eric Haro PROCEDURE: CTA HEAD [...] CCA: No significant atherosclerotic calcification Right ICA: Skkbombx-yw-zpvfyx atherosclerotic calcified and noncalcified plaque at the [...] RIGHT Vertebral: Unremarkable. LEFT Vertebral: Unremarkable. Anatomy: [place] [facility] [place] anatomy is normal. Aneurysm or [...] DAVI Green; Dr. Kurt Lieberman MD ~ [employer]: Signed [facility]04-09-2025 Consult note [facility] Medical Records Department [address] [place] [address] Consultation - Neurology 09/01/24 1432 MR#: [id number] Acct: [id number] Name: CHELSEA MOODY Rep #:[id number] : 1940 83 From: Monik Barker MD PCP: Dr. Kurt Lieberman MD Status:A DM IN Location: [place] [id number]- Assessment and Plan: Neuro Assessment/Plan CHELSEA MOODY [...] cont lipitor 40mg Smoking Cessation Diabetes Management intermediate blood pressure control should achieve <130/80 mmHg. [...] Consult: 09/01/24 HPI Narrative HPI Narrative: CHELSEA MODOY, is a 83 F with a past medical history of essential hypertension; poorly-controlled on metoprolol, obesity; BMI of 39.5 this admission, DM-2; of unknown control on insulin glargine 8U at bedtime, GERD; currently not on treatment and OA who presents to [facility] ER complaining of dizziness and highly elevated [...] Currently no dizziness or lightheadedness. 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 Freq: [id number] Protocol: Activity Type Activity Date Activity User E-sign Co-sign Detail Recorded Client Recorded Date Recorded By Document 09/01/24 12:00 ML [id number] 09/01/24 12:25 ML 09/01/24 12:00 NIH Stroke [...] SA 5 5 EE EF WE WF Tram Inspector 5 5 HF KE KF DF PF [...] % (Auto) 61.5, Lymph % (Auto) 24.9, Greene % (Auto) 9.1, Eos % (Auto) 3.2, [...] Clarity Clear, Urine pH 6.0, Ur Specific [place] 1.010, Urine Protein Negative, Urine Glucose (UA) [...] microvascular ischemia and involutional changes. [facility] Brain MRI 08/31/24 23:41 IMPRESSION: 1. Punctate high RIGHT frontal acute infarct. No mass-effect or appreciable hemorrhagic conversion. 2. Additional description as above. Reading Location: [id number] Carotid Duplex 08/31/24 23:41 Interpretation Summary Severe [...] Dr. Kurt Lieberman MD~ Signed [facility]04-09-2025 History and physical note Author Severiano Gordillo [facility] Note Date/Time September 01, 2024 6:12 am [facility] Medical Records Department [address] [place] [address] H&P Exam - Hospitalist 08/31/24 2305 MR#: [id number] Acct: [id number] Name: CHELSEA MOODY Rep #:[id number] : 1940 83 From: Severiano Godfrey DO PCP: Dr. Kurt Lieberman MD Status:A DM JAMES Location: [place] [address] HPI - General General Date of Service: 08/31/24 Chief Complaint: Dizziness and Highly Elevated Blood Pressure. HPI Narrative CHELSEA MOODY, is a 83 F with a past medical history of essential hypertension; poorly-controlled on metoprolol, obesity; BMI of 39.5 this admission, DM-2; of unknown control on insulin glargine 8U at bedtime, GERD; currently not on treatment and OA who presents to [facility] ER complaining of dizziness and highly elevated [...] be less than 2 midnights. [facility] Medical History GERD (gastroesophageal reflux disease) Hypertension [...] % (Auto) 61.5, Lymph % (Auto) 24.9, Greene % (Auto) 9.1, Eos % (Auto) 3.2, [...] Clarity Clear, Urine pH 6.0, Ur Specific [place] 1.010, Urine Protein Negative, Urine Glucose (UA) [...] complication status: with neurologic complications Diabetes mellitus halfway insulin use: with halfway use Qualified Code(s): E11.49 - Type 2 diabetes mellitus with other diabetic neurological complication; Z79.4 - intermediate (current) use of insulin PLAN: Plan 1. [...] 70 minutes. Charges/Coding Visit Charges OBSV E&M: 54342 Observ/hosp same date L2 09/01/24611 <Electronically signed by Severiano Ibarra DO> Cosigner Signature (if applicable): CC: Dr. Severiano Ibarra DO; Dr. Kurt Lieberman MD~ Signed [facility] Work Phone: 1(393) 105-699104-09-2025 History and physical note [facility] Medical Records Department [address] [place] [address] H&P Exam - Hospitalist 08/31/24 2307 MR#: [id number] Acct: [id number] Name: CHELSEA MOODY Rep #:[id number] : 1940 83 From: Severiano Godfrey DO PCP: Dr. Kurt Lieberman MD Status:A DM JAMES Location: [place] [address] HPI - General General Date of Service: 08/31/24 Chief Complaint: Dizziness and Highly Elevated Blood Pressure. HPI Narrative CHELSEA MOODY, is a 83 F with a past medical history of essential hypertension; poorly-controlled on metoprolol, obesity; BMI of 39.5 this admission, DM-2; of unknown control on insulin glargine 8U at bedtime, GERD; currently not on treatment and OA who presents to [facility] ER complaining of dizziness and highly elevated [...] be less than 2 midnights. [facility] Medical History GERD (gastroesophageal reflux disease) Hypertension [...] % (Auto) 61.5, Lymph % (Auto) 24.9, Greene % (Auto) 9.1, Eos % (Auto) 3.2, [...] Clarity Clear, Urine pH 6.0, Ur Specific [place] 1.010, Urine Protein Negative, Urine Glucose (UA) [...] complication status: with neurologic complications Diabetes mellitus halfway insulin use: with exterminator helper use Qualified Code(s): E11.49 - Type 2 diabetes mellitus with other diabetic neurological complication; Z79.4 - manager long term care (current) use of insulin PLAN: Plan 1. [...] 70 minutes. Charges/Coding Visit Charges OBSV E&M: 32767 Observ/hosp same date L2 09/01/24 0612 Cosigner Signature (if applicable): CC: Dr. Severiano Ibarra DO; Dr. Kurt Lieberman MD~ Signed [facility]04-09-2025 Discharge summary Author Murphy Desiree [facility] Note Date/Time August 31, 2024 11:1 1pm [facility] Medical Records Department [address] [place] [address] Emergency Department Summary 08/31/24 MR#: [id number] Acct: [id number] Name: CHELSEA MOODY Rep #:[id number] : 1940 83 From: Murphy Bobo PCP: Dr. Kurt Lieberman MD Status:R EG ER Location: ED HPI History of Present Illness Chief Complaint: Dizziness [facility] Medical History (Updated 08/31/24 @ 20:30 by [...] reviewed, Vital signs reviewed Constitutional: please see [facility] HENT: MMM Eyes: Pupils equal round and [...] History obtained from others: none Consults: none [facility] Narrative: Patient was initially hypertensive blood pressure [...] Dispo: Admit This note was generated with [email or web address] dictation software. It may contain incorrectwords, spelling, [...] % (Auto) 61.5 Lymph % (Auto) 24.9 Greene % (Auto) 9.1 Eos % (Auto) 3.2 [...] microvascular ischemia and involutional changes. Reading Location: [facility] Discharge Plan Triage Chief Complaint: Dizziness ED Provider: Murphy Ramírez Dx/Rx/DC Orders Prescriptions: No Action metoprolol succinate 50 mg tablet extended release 24 hr 100 mg PO DAILY insulin glargine [Lantus Solostar U-100 Insulin] 100 unit/mL (3 mL) insulin pen 8 unit subcut QHS Primary Care Provider: Kurt Lieberman Referrals: Kurt Lieberman MD [Primary Care Provider] - Print Language: Mosotho What to do if you have Problems For any increased pain, shortness of breath, bleeding, nausea or vomiting, chestpain, or any unexpected problems, contact your Primary Care Provider. Call [facility] ([phone]) or report to the closest Emergency Room. Call 911 if necessary. 08/31/24 2311 <Electronically signed by Murphy Ramírez DO> Cosigner Signature (if applicable): CC: Dr. Kurt Lieberman MD ~ Signed [facility] Work Phone: 1([phone]) 196-808904-08-2025 Discharge summary [facility] Medical Records Department [address] [place] [address] Emergency Department Summary 08/31/24 MR#: [id number] Acct: [id number] Name: CHELSEA MOODY Rep #:[id number] : 1940 83 From: Murphy Bobo PCP: Dr. Kurt Lieberman MD Status:R ER Location: ED HPI History of Present Illness Chief Complaint: Dizziness [facility] Medical History (Updated 08/31/24 @ 20:30 by [...] History obtained from others: none Consults: none [facility] Narrative: Patient was initially hypertensive blood pressure [...] Dispo: Admit This note was generated with [email or web address] dictation software. It may contain incorrectwords, spelling, [...] % (Auto) 61.5 Lymph % (Auto) 24.9 Greene % (Auto) 9.1 Eos % (Auto) 3.2 [...] microvascular ischemia and involutional changes. Reading [facility] Dis[facility] Plan Triage Chief Complaint: Dizziness ED Provider: Murphy Ramírez Dx/Rx/DC Orders Prescriptions: No Action metoprolol succinate 50 mg tablet extended release 24 hr 100 mg PO DAILY insulin glargine [Lantus Solostar U-100 Insulin] 100 unit/mL (3 mL) insulin pen 8 unit subcut QHS Primary Care Provider: Kurt Lieberman Referrals: Kurt Lieberman MD [Primary Care Provider] - Print Language: Mosotho What to do if you have Problems For any increased pain, shortness of breath, bleeding, nausea or vomiting, chestpain, or any unexpected problems, contact your Primary Care Provider. Call [facility] ([phone]) or report tothe closest Emergency Room. Call 911 if necessary. 08/31/24 2311 Cosigner Signature (if applicable): CC: Dr. Kurt Lieberman MD ~ Signed [facility]04-08-2025 Radiology Diagnostic study note [facility] Imaging Services [address] [place] [address] Brain/Head without Contrast MR#: [id number] Acct: [id number] Name: CHELSEA MOODY Rep #: [id number] : 1940 F 83 From: Francisca Chapman MD PCP: Dr. Kurt Lieberman MD Status: R ER Study:Brain/Head without Contrast Date of Exa m: 08/31/24 Exam# [id number] Ordering Dr: Anna Ramírez DO PROCEDURE: BRAIN/HEAD [...] Lieberman MD; Dr. Murphy Ramírez DO ~ [employer]: Signed [facility]04-08-2025 Discharge summary Author Murphy Ramírez [facility] Note Date/Time August 31, 2024 11:1 1pm [facility] Medical Records Department [address] [place] [address] Emergency Department Summary 08/31/24 MR#: [id number] Acct: [id number] Name: CHELSEA MOODY Rep #:[id number] : 1940 83 From: Murphy Bobo PCP: Dr. Kurt Lieberman MD Status:R EG ER Location: ED HPI History of Present Illness Chief Complaint: Dizziness [facility] Medical History (Updated 08/31/24 @ 20:30 by [...] Mean 114 Pulse Ox Oxygen Delivery Method [facility] Narrative Medical decision making narrative: HISTORY OF [...] reviewed, Vital signs reviewed Constitutional: please see [facility] HENT: MMM Eyes: Pupils equal round and [...] History obtained from others: none Consults: none [facility] Narrative: Patient was initially hypertensive blood pressure [...] Dispo: Admit This note was generated with [email or web address] dictation software. It may contain incorrectwords, spelling, [...] % (Auto) 61.5 Lymph % (Auto) 24.9 Greene % (Auto) 9.1 Eos % (Auto) 3.2 [...] microvascular ischemia and involutional changes. Reading Location: [facility] Discharge Plan Triage Chief Complaint: Dizziness ED Provider: Murphy Ramírez Dx/Rx/DC Orders Prescriptions: No Action metoprolol succinate 50 mg tablet extended release 24 hr 100 mg PO DAILY insulin glargine [Lantus Solostar U-100 Insulin] 100 unit/mL (3 mL) insulin pen 8 unit subcut [facility] Primary Care Provider: Kurt Lieberman Referrals: Kurt Lieberman MD [Primary Care Provider] - Print Language: Mosotho What to do if you have Problems For any increased pain, shortness of breath, bleeding, nausea or vomiting, chestpain, or any unexpected problems, contact your Primary Care Provider. Call [employer] [facility] ([phone]) or report to the closest Emergency Room. Call 911 if necessary. 08/31/24 8897 <Electronically signed by Murphy Ramírez DO> Cosigner Signature (if applicable): CC: Dr. Kurt Lieberman MD ~ Signed [facility] Work Phone: 1(130) 639-689806-28-2024 NoteHNO ID: [id number] Author: JOY GUDINO APRN.AVIVA Service: ? Author Type: Nurse Practitioner Type: Progress Notes Filed: 11/21/2023 10:02 Note Text: FOLLOW UP VISIT NAME: Chelsea [facility] NO.: [id number] DATE OF SERVICE: 11/21/2023 : 1940 REFERRING [...] months or sooner if needed. Joy Gudino APRN.[facility]PTri[facility] History of Present illness Narrative* Joy Gudino APRN.AVIVA - 11/21/2023 9:54 AM EDT FOLLOW UP VISIT NAME: Chelsea [facility] NO.: [id number] DATE OF SERVICE: 11/21/2023 : 1940 REFERRING [...] months or sooner if needed. Joy Gudino APRN.EVENT SET UP SPECIALIST [facility] Nurse Note* Kaylin Dunham LPN - 11/21/2023 [...] Dunham LPN November 21, 2023 9:50 AM [facility]-28-[facility] Nurse Note* Kaylin Dunham LPN - 11/21/2023 [...] 21, 2023 9:50 AM documented in [facility] encounterK[facility]-2024 History of Present illness Narrative* Chalo Acosta [...] nurse and reviewed by wy Nursing Notes: Jessica Damian RN 11/14/2023 3:30 [...] applicable. Jessica Damian RN documented in this encounterK[facility]-21-2024 Instructions* Patient Instructions* Jessica Damian RN - 11/14/2023 4:01 PM EDT The following instructions are important for you related to your office visit today with the [facility]. Instructions After SKIN EXCISION-SUTURES You [...] you should contact our office immediately @ [phone] and ask to be transferred to the General Surgery department. documented in this encounter[facility]-2024 Nurse Note* Jessica Damian RN - 11/14/2023 [...] Mammogram screening? Last Colonoscopy: Jessica Damian RN [facility] Nurse Note* Jessica Damian RN - 11/14/2023 [...] Colonoscopy: Jessica Damian RN documented in this encounterK[facility] HamiltonDischar summary Author Clay Resendez [facility] Note Date/Time October 30, 2024 12:22 am [facility] Medical Records Department [address] [place] [address] Emergency Department Summary 10/30/24 MR#: [id number] Acct: [id number] Name: CHELSEA MOODY Rep #:[id number] : 1940 83 From: Clay Resendez MD [...] any systemic symptoms of anemia or fevers. [facility] Medical History Wears glasses Wears dentures [...] Care Provider] - As Needed Print Language: Mosotho Disposition Disposition: Home, Self Care What to do if you have Problems For any increased pain, shortness of breath, bleeding, nausea or vomiting, chestpain, or any unexpected problems, contact your Primary Care Provider. Call [facility] ([phone]) or report to the closest Emergency Room. Call 911 if necessary. 10/30/24 0022 <Electronically signed by Clay Resendez MD> Cosigner Signature (if applicable): CC: Dr. Angela High MD ~ Signed [facility] Work Phone: evaluation note* Diagnosis Squamous cell carcinoma of face- Primary Squamous cell carcinoma of skin of other and unspecified parts of face Lip lesion Diseases of lips documented in this encounter [facility] note* Diagnosis Lip lesion- Primary Diseases of lips documented in this encounter [facility] note* Diagnosis Pain in both knees, unspecified chronicity- Primary documented in this encounter [facility] note* Diagnosis Onset Date Resolution Status [...] medication acute August 312024 11:32pm [facility] Work Phone: Evaluufrxo note* Diagnosis Hospital discharge follow-up- Primary Other follow-up examination Hypertension, unspecified type Type 2 diabetes mellitus without complication, without long-term current use of insulin ([facility]) Class 2 severe obesity with serious comorbidity and body mass index (BMI) of 35.0 to 35.9 in adult, unspecified obesity type (HCC) documented in this encounter [facility] note* Diagnosis Type 2 diabetes mellitus without complication, without long-term current use of insulin (HCC) documented in this encounter [facility] note* Diagnosis Type 2 diabetes mellitus without complication, without long-term current use of insulin (HCC) Essential (primary) hypertension Unspecified essential hypertension Tremor, unspecified Difficulty in walking, not elsewhere classified Screening for depression Encounter for screening examination for other mental health and behavioral disorders Cerebral infarction due to unspecified occlusion or stenosis of unspecified cerebral artery (HCC) documented in this encounter [facility] note* Diagnosis Gastroesophageal reflux disease without esophagitis- Primary Esophageal reflux [facility] [place] Diagnosis Hyponatremia- Primary Hyposmolality and/or hyponatremia documented in this encounter [facility] note* Diagnosis Gagging episode- Primary Other diseases of pharynx, not elsewhere classified Choking, subsequent encounter Loss of appetite Anorexia Weight loss Loss of weight Hallucinations Primary hypertension Unspecified essential hypertension Muscle weakness (generalized) Hyponatremia Hyposmolality and/or hyponatremia History of common carotid artery stent placement [facility] Author Imelda Marsh [facility] Note Date/Time November 17, 2024 6:54 pm [facility] Medical Records Department [address] [place] [address] H&P Exam - Hospitalist 11/17/24 1846 MR#: [id number] Acct: [id number] Name: CHELSEA MOODY Rep #:[id number] : 1940 83 From: Imelda Marsh MD [...] CVA, recentadmission for hyponatremia presented [facility] ED 11/17/2024 fornausea and vomiting. Symptoms have [...] urination. No other new or acute complaints. [facility] Medical History Wears glasses Wears dentures Bruising [...] % (Auto) 66.1, Lymph % (Auto) 20.9, [place] % (Auto) 11.4 H, Eos % (Auto) [...] Sl. Cloudy, Urine pH 6.0, Ur Specific [place] 1.010, Urine Protein 30 H, Urine Glucose [...] abdominopelvic finding on noncontrast CT. Reading Location: [facility] Assessment & Plan Assessment/Plan (1) JUJU [...] Marsh MD Charges/Coding Visit Charges Inpatient E&M: 69944 Init Hosp L2 11/17/24 1854 <Electronically signed by Imelda Marsh MD> Cosigner Signature (if applicable): CC: Dr. Angela High MD; Dr. Imelda Marsh MD~ Signed [facility] Work Phone: Reason for referral (narrative)* Diagnostic Procedure Only (Routine) - Authorized Specialty Diagnoses / Procedures Referred By Contac t Referred To Contact XR IMAGING Diagnoses Pain in both knees, unspecified chronicity Procedures XR LEG FRONTAL HIP TO ANKLE MECHANICAL AXIS BONE LENGTH STUDIES Fabio Hernandez PA-C [address] [address] [place] [address] Referral ID Status Reason Start Date Expiration Date Visits Requested Visits Authorized [id number] Authorized Auto-Generat ed Referral 06/01/2024 07/01/2025 1 1 * Diagnostic Procedure Only (Routine) - Authorized Specialty Diagnoses / Procedures Referred By Leti t Referred To Contact XR IMAGING Diagnoses Pain in both knees, unspecified chronicity Procedures XR KNEE GENERAL 4V AP BOTH/PA BOTH/LAT/MERC BILATERAL RADIOLOGIC EXAM KNEE COMPLETE 4/MORE VIEWS Fabio Hernandez PA-C [address] [address] [place] [address] Referral ID Status Reason Start Date Expiration Date Visits Requested Visits Authorized [id number] Authorized Auto-Generat ed Referral 06/01/2024 07/01/2025 1 1 [facility]ative)No reason for referral information availableWCleveland Clinic [facility] Work Phone: Summary Purpose Family History Relationship Condition Age at Onset Recorded Date/T cyndi Not Specified Diabetes mellitus Unknown Advance Directives Advance Directive Response Recorded Date/ Time Living Will Yes August 31, 2024 8:28pm Do you have a Healthcare Power of Associate Automation Engineer? Yes August 31, 2024 8:28pm Name of Medical Power of Associate Automation Engineer Daughter August 31, 2024 8:28pm Advance Directive Response Recorded Date/ Time Living Will Yes September 01, 2024 12:14am Do you have a Healthcare Power of Associate Automation Engineer? Yes September 01, 2024 12:14am Name of Medical Power of Associate Automation Engineer Daughter September 01, 2024 12:14am Advance Directive Response Recorded Date/ Time Living Will Yes September 01, 2024 12:14am Do you have a Healthcare Power of Associate Automation Engineer? Yes September 01, 2024 12:14am Name of Medical Power of Associate Automation Engineer Daughter September 01, 2024 12:14am Do you have a Healthcare Power of Associate Automation Engineer? No October 05, 2024 12:00pm Advance Directive Response Recorded Date/ Time Living Will Yes September 01, 2024 12:14am Do you have a Healthcare Power of Associate Automation Engineer? Yes September 01, 2024 12:14am Name of Medical Power of Associate Automation Engineer Daughter September 01, 2024 12:14am Do you have a Healthcare Power of Associate Automation Engineer? No October 05, 2024 12:00pm Do you have a Healthcare Power of Associate Automation Engineer? Yes October 22, 2024 5:30pm Name of Medical Power of Associate Automation Engineer daughter- barry October 22, 2024 5:30pm Advance Directive Response Recorded Date/ Time Living Will Yes September 01, 2024 12:14am Do you have a Healthcare Power of Associate Automation Engineer? Yes September 01, 2024 12:14am Name of Medical Power of Associate Automation Engineer Daughter September 01, 2024 12:14am Do you have a Healthcare Power of Associate Automation Engineer? No October 05, 2024 12:00pm Do you have a Healthcare Power of Associate Automation Engineer? Yes October 22, 2024 8:17pm Name of Medical Power of Associate Automation Engineer Barry Holt October 22, 2024 8:17pm Advance Directive Response Recorded Date/ Time Living Will Yes September 01, 2024 12:14am Do you have a Healthcare Power of Associate Automation Engineer? Yes September 01, 2024 12:14am Name of Medical Power of Associate Automation Engineer Daughter September 01, 2024 12:14am Do you have a Healthcare Power of Associate Automation Engineer? No October 05, 2024 12:00pm Do you have a Healthcare Power of Associate Automation Engineer? Yes October 22, 2024 8:17pm Name of Medical Power of Associate Automation Engineer Barry Holt October 22, 2024 8:17pm Do you have a Healthcare Power of Associate Automation Engineer? Yes October 29, 2024 11:24pm Advance Directive Response Recorded Date/ Time Living Will Yes September 01, 2024 12:14am Do you have a Healthcare Power of Associate Automation Engineer? Yes September 01, 2024 12:14am Name of Medical Power of Associate Automation Engineer Daughter September 01, 2024 12:14am Do you have a Healthcare Power of Associate Automation Engineer? No October 05, 2024 12:00pm Do you have a Healthcare Power of Associate Automation Engineer? Yes October 22, 2024 8:17pm Name of Medical Power of Associate Automation Engineer Barry Holt October 22, 2024 8:17pm Do you have a Healthcare Power of Associate Automation Engineer? Yes October 29, 2024 11:24pm Do you have a Healthcare Power of Associate Automation Engineer? Yes November 17, 2024 3:55pm Chief Complaint [...] WATERSHE D CVA September 03, 2024 12:10pm [facility] hospital F/U September 17, 2024 10: 53am Carotidstent in Marine Diesel Mechanic, OR Staff, Eugene BAR October 05, 2024 7:25am Carotidstent in Marine Diesel Mechanic, OR Staff, Eugene BAR October 05, 2024 9:30am Carotidstent in Marine Diesel Mechanic, OR Staff, Eugene BAR October 06, 2024 [...] WATERSHE D CVA September 03, 2024 12:10pm [facility] hospital F/U September 17, 2024 10: 53am Carotidstent in Marine Diesel Mechanic, OR Staff, Eugene BAR October 05, 2024 7:25am Carotidstent in Marine Diesel Mechanic, OR Staff, Eugene BAR October 05, 2024 9:30am Carotidstent in Marine Diesel Mechanic, OR Staff, Eugene BAR October 06, 2024 [...] WATERSHE D CVA September 03, 2024 12:10pm [facility] hospital F/U September 17, 2024 10: 53am Carotidstent in Marine Diesel Mechanic, OR Staff, Eugene BAR October 05, 2024 7:25am Carotidstent in Marine Diesel Mechanic, OR Staff, Eugene BAR October 05, 2024 9:30am Carotidstent in Marine Diesel Mechanic, OR Staff, Eugene BAR October 06, 2024 [...] WATERSHE D CVA September 03, 2024 12:10pm [facility] F/U September 17, 2024 10: 53am Carotidstent in Marine Diesel Mechanic, OR Staff, Eugene BAR October 05, 2024 7:25am Carotidstent in Marine Diesel Mechanic, OR Staff, Eugene BAR October 05, 2024 9:30am Carotidstent in Marine Diesel Mechanic, OR Staff, Eugene BAR October 06, 2024 [...] WATERSHE D CVA September 03, 2024 12:10pm [facility] F/U September 17, 2024 10: 53am Carotidstent in Marine Diesel Mechanic, OR Staff, Eugene BAR October 05, 2024 7:25am Carotidstent in Marine Diesel Mechanic, OR Staff, Eugene BAR October 05, 2024 9:30am Carotidstent in Marine Diesel Mechanic, OR Staff, Eugene BAR October 06, 2024 [...] WATERSHE D CVA September 03, 2024 12:10pm [facility] hospital F/U September 17, 2024 10: 53am Carotidstent in Marine Diesel Mechanic, OR Staff, Eugene BAR October 05, 2024 7:25am Carotidstent in Marine Diesel Mechanic, OR Staff, Eugene BAR October 05, 2024 9:30am Carotidstent in Marine Diesel Mechanic, OR Staff, Eugene BAR October 06, 2024 [...] section and content) DATE CREATED AUTHOR 06/23/2019 [facility] ([place]) DATE CREATED AUTHOR AUTHOR'S ORGANIZ ATION 09/02/2024 [facility] DATE CREATED AUTHOR AUTHOR'S ORGANIZ ATION 11/04/2024 [facility] DATE CREATED AUTHOR AUTHOR'S ORGANIZ ATION 11/17/2024 [facility] Source Comments (unrecognize d section and content) In the event this informatio n is protected by the Federal Confidentiality of Alcohol and Drug Abuse Patient Records regulations: The Federal rules restrict any use of the information to criminally investigate or prosecute any alcohol or drug abuse patient.[facility] the event this information is protected by the Federal Confidentiality of Alcohol and Drug Abuse Patient Records regulations: The Federal rules restrict any use of the information to criminally investigate or prosecute any alcohol or drug abuse patient.[facility] the event this information is protected by the Federal Confidentiality of Alcohol and Drug Abuse Patient Records regulations: The Federal rules restrict any use of the information to criminally investigate or prosecute any alcohol or drug abuse patient.[facility] the event this information is protected by the Federal Confidentiality of Alcohol and Drug Abuse Patient Records regulations: The Federal rules restrict any use of the information to criminally investigate or prosecute any alcohol or drug abuse patient.[facility] the event this information is protected by the Federal Confidentiality of Alcohol and Drug Abuse Patient Records regulations: The Federal rules restrict any use of the information to criminally investigate or prosecute any alcohol or drug abuse patient.[facility] the event this information is protected by the Federal Confidentiality of Alcohol and Drug Abuse Patient Records regulations: The Federal rules restrict any use of the information to criminally investigate or prosecute any alcohol or drug abuse patient.[facility] Hamilton[facility] the event this information is protected by the Federal Confidentiality of Alcohol and Drug Abuse Patient Records regulations: The Federal rules restrict any use of the information to criminally investigate or prosecute any alcohol or drug abuse patient.[facility] Hamilton[facility] the event this information is protected by the Federal Confidentiality of Alcohol and Drug Abuse Patient Records regulations: The Federal rules restrict any use of the information to criminally investigate or prosecute any alcohol or drug abuse patient.[facility] Hamilton[facility] the event this information is protected by the Federal Confidentiality of Alcohol and Drug Abuse Patient Records regulations: The Federal rules restrict any use of the information to criminally investigate or prosecute any alcohol or drug abuse patient.[facility] Hamilton[facility] the event this information is protected by the Federal Confidentiality of Alcohol and Drug Abuse Patient Records regulations: The Federal rules restrict any use of the information to criminally investigate or prosecute any alcohol or drug abuse patient.[facility] Hamilton[facility] the event this information is protected by the Federal Confidentiality of Alcohol and Drug Abuse Patient Records regulations: The Federal rules restrict any use of the information to criminally investigate or prosecute any alcohol or drug abuse patient.[facility] Hamilton[facility] the event this information is protected by the Federal Confidentiality of Alcohol and Drug Abuse Patient Records regulations: The Federal rules restrict any use of the information to criminally investigate or prosecute any alcohol or drug abuse patient.[facility] Hamilton[facility] the event this information is protected by the Federal Confidentiality of Alcohol and Drug Abuse Patient Records regulations: The Federal rules restrict any use of the information to criminally investigate or prosecute any alcohol or drug abuse patient.[facility] Care Teams (unrecognized sec tion and content) Chain Testing Machine Operator Relationship Specialty Start Date End Date Kurt Lieberman MD [address] [id number] PCP - General Family Medicine 11/14/23 Chain Testing Machine Operator Relationship Specialty Start Date End Date Kurt Lieberman MD [address] [place] [address] PCP - General Family Medicine 11/14/23 Chain Testing Machine Operator Relationship Specialty Start Date End Date Kurt Lieberman MD [address] [facility] [address] [place] [address] PCP - General Family Medicine 11/14/23 Team Status: Active Member Role Status Dates Dr. Kurt Lieberman MD Primary Care Provider Active Team Status: Inactive Member Role Status Dates Dr. Kurt Lieberman MD Primary Care Provider Active Start: May 20, 2024 End: May 20, 2024 Dr. Kurt Lieberman MD Attending Provider Active Start: May 20, 2024 End: May 20, 2024 Dr. Kurt Lieberamn MD Referring Provider Active Start: May 20, [...] Provider Active Start : September 03, 2024 Chain Testing Machine Operator Relationship Specialty Start Date End Date Angela High MD [address] [place] [address] PCP - General Internal Medicine 09/10/24 Chain Testing Machine Operator Relationship Specialty Start Date End Date Angela High MD [address] [place] [address] PCP - General Internal Medicine 09/10/24 Chain Testing Machine Operator Relationship Specialty Start Date End Date Angela High MD [address] [place] [address] PCP - General Internal Medicine 09/10/24 Chain Testing Machine Operator Relationship Specialty Start Date End Date Angela High MD [address] [place] [address] PCP - General Internal Medicine 09/10/24 Team [...] Provider Active Star t: October 06, 2024 Chain Testing Machine Operator Relationship Specialty Start Date End Date Angela High MD [address] [place] [address] PCP - General Internal Medicine 09/10/24 Laura Tristan APRN.EVENT SET UP SPECIALIST [address] [place] [address] Marketing Systems Analyst Internal Medicine 10/11/24 Chain Testing Machine Operator Relationship Specialty Start Date End Date Angela High MD [address] [place] [address] PCP - General Internal Medicine 09/10/24 Laura Tristan APRN.EVENT SET UP SPECIALIST [address] [place] [address] Marketing Systems Analyst Internal Medicine 10/11/24 Team Status: Inactive Member [...] October 29, 2024 End: October 30, 2024 Chain Testing Machine Operator Relationship Specialty Start Date End Date Angela High MD [address] [place] [address] PCP - General Internal Medicine 09/10/24 Laura Tristan, CANDY ATTENDANT.EVENT SET UP SPECIALIST [address] [facility] [place] [address] Marketing Systems Analyst Internal Medicine 10/11/24 Chain Testing Machine Operator Relationship Specialty Start Date End Date Angela High MD [address] [place] [address] PCP - General Internal Medicine 09/10/24 Laura Tristan, CANDY ATTENDANT.EVENT SET UP SPECIALIST [address] [facility] [place] [address] Marketing Systems Analyst Internal Medicine 10/11/24 Chain Testing Machine Operator Relationship Specialty Start Date End Date Angela High MD [address] [place] [address] PCP - General Internal Medicine 09/10/24 Laura Tristan APRN.EVENT SET UP SPECIALIST [address] [facility] [place] [address] Marketing Systems Analyst Internal Medicine 10/11/24 Team Status: Inactive Member [...] BE BASED ON THE PRIMARY CLINICAL RECORDS. [employer] provides no warranty or guarantee of the accuracy or completeness of information in this document.
[2024-11-17 23:24] LABS: Bedside Glucose 144 mg/dL (74-106)
[2024-11-18 02:05] VITALS: BP 143/44; PULSE 77; RESP 15; TEMP 36.6; O2SAT 99
[2024-11-18 06:31] LABS: Bedside Glucose 110 mg/dL (74-106)
[2024-11-18 06:55] LABS: Urea Nitrogen, Urine 113 mg/dL (NO RANGE EST.); Urine Chloride 31 mmol/L (Not Establ.); Urine Potassium 4.7 mmol/L (Not Establ.); Urine Sodium 36 mmol/L (Not Establ.)
[2024-11-18 07:00] LABS: Absolute Lymphocyte Count 1.94 X10^3/uL (0.83-4.51); Absolute Neutrophil Count 5.8 X10^3/uL (2.0-7.7); Basophil# 0.06 X10^3/uL; Basophil% 0.7 % (0-1); Eosinophil# 0.17 X10^3/uL; Eosinophils% 1.9 % (0-5); Hematocrit 28.2 % (37-47); Hemoglobin 9.4 g/dL (12.0-15.0); Lymphocyte # 1.94 X10^3/ul (0.83-4.51); Lymphocyte % 21.3 % (19-41); Mean Corp Hgb Conc 33.3 g/dL (32-36); Mean Corpuscular Hgb 29.4 pg (27.0-32.0); Mean Corpuscular Volume 88.1 fL (81-99); Monocyte# 1.05 X10^3/uL; Monocyte% 11.5 % (0-10); NRBC Flagged by Analyzer 0 % (0-5); Neutrophil # 5.83 X10^3/uL (2.7-7.7); Neutrophil % 64.1 % (47-70); Platelet Count 410 K/mm3 (150-450); White Blood Count 9.1 K/mm3 (4.4-11.0)
[2024-11-18 07:32] LABS: Anion Gap 16 (5-15); BUN 18 mg/dL (4-19); BUN/Creat Ratio 7.5 RATIO (10-20); Calcium,Total 7.6 mg/dL (7.6-11.0); Carbon Dioxide 18.6 mmol/L (21.0-32.0); Chloride 105 mmol/L (98-108); EST Glomerular Filtration Rate 19 (>60); Estimated Creatinine Clearance 15.62 ml/min (50-250); Glucose 89 mg/dL (70-99); Potassium 3.4 mmol/L (3.3-5.1); Sodium Level 139 mmol/L (133-145)
--- NOTE | 2024-11-18 07:36 | PN.HOSP_ITS ---
Reason for Visit Reason for Visit: Diagnoses Acute kidney failure, unspecified (11/17/24) Subjective Subjective Denies nausea but states that she will instantly throw up after certain smells, talk to certain foods, eating certain foods. States that she is eating very little. This is all transpired since her stroke back in August. She has not tried anything to help with this. Objective Data Objective Data Vital Signs: Vital Signs Temp Pulse Resp BP Pulse Ox O2 Del Method 36.6 C 77 15 143/44 H 99 Room Air 11/18/24 02:05 11/18/24 02:05 11/18/24 02:05 11/18/24 02:05 11/18/24 02:05 11/18/24 02:05 Oxygen Delivery Method Room Air Weight: 73.5 kg Body Mass Index (BMI) 36.4 Intake & Output: Intake and Output for Last 24 Hours 11/16/24 11/17/24 11/18/24 23:59 23:59 23:59 Output Total 1100 / 1100 Balance -1100 / -1100 Lab / Micro Data 11/18/24 05:47 11/18/24 05:47 Labs: Laboratory Results - last 24 hr 11/17/24 14:20: WBC 10.9, RBC 3.54 L, Hgb 10.6 L, Hct 32.9 L, MCV 92.9, MCH 29.9, MCHC 32.2, RDW Std Deviation 50.4 H, RDW Coeff of Óscar 14.8 H, Plt Count 357, MPV 11.0, Immature Gran % (Auto) 0.600, Neut % (Auto) 66.1, Lymph % (Auto) 20.9, [place] % (Auto) 11.4 H, Eos % (Auto) 0.4, Baso % (Auto) 0.6, Absolute Neuts (auto) 7.2, Absolute Lymphs (auto) 2.28, Nucleated RBC % 0, Sodium Cancelled, Potassium Cancelled, Chloride Cancelled, Carbon Dioxide Cancelled, Anion Gap Cancelled, BUN Cancelled, Creatinine Cancelled, Estim Creat Clear Calc Cancelled, Est GFR (MDRD) Non-Af Cancelled, BUN/Creatinine Ratio Cancelled, Glucose Cancelled, Calcium Cancelled, Total Bilirubin Cancelled, AST Cancelled, ALT Cancelled, Alkaline Phosphatase Cancelled, Total Protein Cancelled, Albumin Cancelled, Globulin Cancelled, Albumin/Globulin Ratio Cancelled, Lipase Cancelled 11/17/24 16:45: Urine Color Straw, Urine Clarity Sl. Cloudy, Urine pH 6.0, Ur Specific [place] 1.010, Urine Protein 30 H, Urine Glucose (UA) Normal, Urine Ketones Negative, Urine Occult Blood Negative, Urine Nitrite Negative, Urine Bilirubin Negative, Urine Urobilinogen Normal, Ur Leukocyte Esterase 25 H, Urine RBC 0-5 SEEN, Urine WBC 5-10 SEEN, Ur Squamous Epith Cells 5-10 SEEN, Urine Bacteria 2+, Urine Mucus 0 SEEN 11/17/24 17:37: Sodium 133, Potassium 3.6, Chloride 99, Carbon Dioxide 14.7 L, A nion Gap 19 H, BUN 19, Creatinine 2.78 H, Estim Creat Clear Calc 13.66 L, Est GFR (MDRD) Non-Af 16 L, BUN/Creatinine Ratio 6.9 L, Glucose 120 H, Calcium 7.8, Total Bilirubin 0.35, AST 21, ALT 23, Alkaline Phosphatase 107 H, Total Protein 6.4, Albumin 3.5, Globulin 2.9, Albumin/Globulin Ratio 1.2, Lipase 57 11/17/24 20:47: Lactic Acid 1.8 11/17/24 22:44: POC Glucose 144 H 11/18/24 03:35: Ur Random Sodium 36, Urine Creatinine 38.00, Urine Potassium 4.7, Urine Chloride 31, Urine Urea Nitrogen 113 11/18/24 05:47: WBC 9.1, RBC 3.20 L, Hgb 9.4 L, Hct 28.2 L, MCV 88.1 D, MCH 29.4, MCHC 33.3, RDW Std Deviation 45.0 H, RDW Coeff of Óscar 14.0, Plt Count 410, MPV 11.0, Immature Gran % (Auto) 0.500, Neut % (Auto) 64.1, Lymph % (Auto) 21.3, [place] % (Auto) 11.5 H, Eos % (Auto) 1.9, Baso % (Auto) 0.7, Absolute Neuts (auto) 5.8, Absolute Lymphs (auto) 1.94, Nucleated RBC % 0, Sodium 139, Potassium 3.4, Chloride 105, Carbon Dioxide 18.6 L, Anion Gap 16 H, BUN 18, Creatinine 2.40 H, Estim Creat Clear Calc 15.62 L, Est GFR (MDRD) Non-Af 19 L, BUN/Creatinine Ratio 7.5 L, Glucose 89, Calcium 7.6 11/18/24 06:13: POC Glucose 110 H Radiography Diagnostic Testing: Radiology Impression Abdomen/Pelvis CT 11/17/24 16:55 IMPRESSION: No acute abdominopelvic finding on noncontrast CT. Reading Location: [id number] Physical Exam Const alert and no apparent distress Constitutional Narrative: Up in chair. Drinking tea. Nontoxic. HEENT head/scalp atraumatic, moist oral mucous membranes, oropharynx normal and dentition normal HEENT Narrative: No evidence of thrush. Edentulous. Resp normal respiratory effort, no retractions, no use of accessory muscles and clear to auscultation bilaterally Cardio regular rate, regular rhythm, S1 normal heart sound and S2 normal heart sound GI normal to inspection, nondistended, normoactive bowel sounds, soft to palpation, non-tender and non-distended Extremity normal to inspection, full ROM and no clubbing, cyanosis or edema Neuro moves all extremities Sensorium / Orientation: awake and alert Assessment & Plan Assessment/Plan (1) JUJU (acute kidney injury): PLAN: 2/2 prerenal from decreased oral intake. improving with IVF. continue IVF. (2) Nausea & vomiting: PLAN: Unclear etiology. Does not sound like gastroenteritis has patient been having the symptoms since August per her description. She describes this happening because of her stroke where she did not have these problems with the exception of when she was . A/P CT negative. C. diff ordered, but symptoms seem inconsistent with Cdiff. Will check another head CT as she describes this as happening after her stroke. MRI showed the head she had a right frontal punctate stroke back on August 31. Check TSH and random cortisol Speech therapy. Consult nutrition as certain smells, taste, even speaking about food can exacerbate the symptoms. Check a gastric emptying study PLAN: Plan DM2: on glargine, but at reduced dose. SSI. Metformin held PAD: continue clopidogrel, atorvastatin, asa HTN: amlodipine. losartan held given JUJU VTE prophylaxis: SQ heparin. Charges/Coding Visit Charges Inpatient E&M: 04775 Subs Hosp L3
[2024-11-18] MEDS: 0.9% Normal Saline (1000mL) 1,000 ML 150 ML IV ×2 (08:55→17:54)
[2024-11-18] MEDS: Clopidogrel Bisulfate 75 MG Tablet PO (08:56)
[2024-11-18] MEDS: amLODIPine 5 MG Tablet PO ×2 (08:56→22:43)
[2024-11-18] MEDS: Aspirin 81 MG TAB.CHEW PO (08:56)
[2024-11-18] MEDS: Pantoprazole Sodium 40 MG Tablet PO (08:56)
[2024-11-18] MEDS: Heparin Injection (Vial) 5,000 UNIT/ML VIAL 5000 UNIT SC ×2 (08:58→22:44)
[2024-11-18 09:11] VITALS: BP 169/54; PULSE 91; RESP 16; TEMP 36.6; O2SAT 99
--- NOTE | 2024-11-18 09:36 | CT_ITS ---
EXAM: NONCONTRAST CT SCAN OF THE HEAD CLINICAL HISTORY: CVA, vomiting COMPARISON: October 22, [address] TECHNIQUE: Serial axial series through the head were obtained without contrast. 2-D coronal and sagittal reformats were then obtained. FINDINGS: Brain: There is no acute large territorial infarct, intracranial hemorrhage, midline shift or mass effect. There are atherosclerotic vascular calcifications involving the bilateral carotid siphons. There is low-density in the deep white matter on the right and left with chronic ischemic changes, similar to the prior. The sella and pineal gland regions appear unremarkable. There is no evidence of cerebellar tonsillar herniation. Ventricles: There is no acute hydrocephalus. Basilar cisterns are patent. Paranasal sinuses: Well-aerated Mastoid air cells: Well-aerated. Calvarium: The bony calvarium is intact. Orbits: The bilateral globes are symmetric, without retrobulbar compressive mass lesion or hemorrhage. Miscellaneous: CT/Brain/Head without Contrast IMPRESSION: There is low-density in the deep white matter on the right and left with chroni c ischemic changes, similar to the prior. No acute intracranial pathology. Reading Location: [facility]
[2024-11-18 11:31] VITALS: BP 166/62; PULSE 84; RESP 16; TEMP 36.5; O2SAT 99
[2024-11-18 11:34] LABS: Bedside Glucose 130 mg/dL (74-106)
[2024-11-18 15:24] VITALS: BP 162/54; PULSE 82; RESP 16; TEMP 36.6; O2SAT 98
[2024-11-18] MEDS: Insulin Lispro 100 UNIT/ML INSULN.PEN SC (16:04)
[2024-11-18 16:32] LABS: Bedside Glucose 184 mg/dL (74-106)
--- NOTE | 2024-11-18 17:57 | CASEMGMT ---
ORESTES MARK readmission note: Index admission: 10/22-10/24: Acute Hyponatremia. Sodium 119 and chloride 82 on admit. Baseline sodium is 135. Hyponatremia presumed to be 2/2 hctz that was initiated recently. Pt treated w/IVF's and labs monitored. Sodium @ discharge was 132. Pt w/hx of See Krishna CARLISLE CM, assessment 10/06 and Stephie CARLISLE CM, RA note 10/23. Pt lives @ home w/her , who has dementia, and she helps care for him. Pt is independent, drives, has good family support. Both her daughter and granddaughter are [employer]. Pt discharged home 10/24 w/instructions to f/u with PCP as needed. Pt to stop losartan/hctz and Rx given for losartan 50 mg daily. Current admission: 11/17: ARF. ORESTES MARK to room to discuss readmission and discharge planning. Pt resting in bed. Introduced self and role. Pt states he had been doing well @ home. She states her daughter, Maria A, manages her medications, but she was able to verify that she did stop taking the losartan/hctz combo @ discharge and did start taking the new Rx, losartan. She states she just saw Dr Hinojosa this past , 11/16. Therapy evals reviewed. OT states no need for additional therapy. PT did recommended additional therapy/OP. Discussed this w/pt who states she does wish to do OP therapy @ [facility] in [place], stating her daughter went there and did well. Made aware a script can be provided @ discharge and she can take to any location of choice. She voices appreciation. Pt states she has a WW and a walking stick @ home, in addition to a shower chair and hand-held shower. She denies need for further DME. She states her is currently @ [facility] and she is looking forward to getting back home soon so she can help to care for her once he is ready to discharge home. ST eval also reviewed from today. Pt continuing on full-liquid diet and ST to evaluate again for solid intake. CM to follow for any recommendations. Plan: Home w/OP PT. Follow for any ST recommendations. Jessie TAMEZ RN, CM
[2024-11-18 20:18] VITALS: BP 177/55; PULSE 89; RESP 16; TEMP 37.2; O2SAT 99
[2024-11-18] MEDS: Atorvastatin Calcium 40 MG Tablet PO (22:43)
[2024-11-18] MEDS: Insulin Glargine-YFGN 100 UNIT/ML Pen SC (22:47)
[2024-11-18 23:18] LABS: Bedside Glucose 120 mg/dL (74-106)
[2024-11-19] MEDS: 0.9% Normal Saline (1000mL) 1,000 ML 150 ML IV ×2 (01:07→09:15)
[2024-11-19 02:18] VITALS: BP 175/36; PULSE 84; RESP 18; TEMP 37.2; O2SAT 98
[2024-11-19] MEDS: Acetaminophen 325 MG Tablet 650 MG PO (03:01)
[2024-11-19 06:20] VITALS: BMI 36.6
[2024-11-19 06:47] LABS: Absolute Lymphocyte Count 2.14 X10^3/uL (0.83-4.51); Absolute Neutrophil Count 5.7 X10^3/uL (2.0-7.7); Basophil# 0.04 X10^3/uL; Basophil% 0.4 % (0-1); Eosinophil# 0.07 X10^3/uL; Eosinophils% 0.8 % (0-5); Hemoglobin 9.3 g/dL (12.0-15.0); Lymphocyte # 2.14 X10^3/ul (0.83-4.51); Lymphocyte % 23.3 % (19-41); Mean Corp Hgb Conc 33.2 g/dL (32-36); Mean Corpuscular Hgb 29.2 pg (27.0-32.0); Mean Corpuscular Volume 87.8 fL (81-99); Mean Platelet Vol. 10.4 fl (6.2-12.0); Monocyte# 1.15 X10^3/uL; Monocyte% 12.5 % (0-10); NRBC Flagged by Analyzer 0 % (0-5); Neutrophil # 5.72 X10^3/uL (2.7-7.7); Neutrophil % 62.3 % (47-70); Platelet Count 427 K/mm3 (150-450); RBC Distribution Width SD 44.5 fl (35.1-43.9); Red Blood Count 3.19 M/mm3 (4.2-5.4); White Blood Count 9.2 K/mm3 (4.4-11.0)
[2024-11-19 07:02] LABS: Bedside Glucose 155 mg/dL (74-106)
[2024-11-19 07:24] LABS: Anion Gap 14 (5-15); BUN 10 mg/dL (4-19); Calcium,Total 7.1 mg/dL (7.6-11.0); Carbon Dioxide 18.1 mmol/L (21.0-32.0); Chloride 109 mmol/L (98-108); Creatinine, Serum 1.48 mg/dL (0.70-1.20); EST Glomerular Filtration Rate 35 (>60); Glucose 144 mg/dL (70-99); Potassium 3.4 mmol/L (3.3-5.1); Sodium Level 141 mmol/L (133-145)
--- NOTE | 2024-11-19 08:06 | PCM.PN.HOSP ---
Reason for Visit Reason for Visit: Diagnoses Acute kidney failure, unspecified (11/17/24) Nausea with vomiting, unspecified (11/17/24) Subjective Subjective Feeling okay this time. Objective Data Objective Data Vital Signs: Vital Signs Temp Pulse Resp BP Pulse Ox O2 Del Method 37.2 C 84 18 175/36 H 98 Room Air 11/19/24 02:18 11/19/24 02:18 11/19/24 02:18 11/19/24 02:18 11/19/24 02:18 11/19/24 03:06 Oxygen Delivery Method Room Air Weight: 73.9 kg Body Mass Index (BMI) 36.6 Intake & Output: Intake and Output for Last 24 Hours 11/17/24 11/18/24 11/19/24 23:59 23:59 23:59 Intake Total 1000 / 1000 1550.0 / 1550.0 1050 / 1050 Output Total 1500 / 2400 2300 / 2300 Balance 1000 / 600 50.0 / -850.0 -1250 / -1250 Lab / Micro Data 11/19/24 06:29 11/19/24 06:29 Labs: Laboratory Results - last 24 hr 11/18/24 05:47: TSH 1.260, Cortisol AM Sample 13.40 11/18/24 11:13: POC Glucose 130 H 11/18/24 16:02: POC Glucose 184 H 11/18/24 22:46: POC Glucose 120 H 11/19/24 06:18: POC Glucose 155 H 11/19/24 06:29: WBC 9.2, RBC 3.19 L, Hgb 9.3 L, Hct 28.0 L, MCV 87.8, MCH 29.2, MCHC 33.2, RDW Std Deviation 44.5 H, RDW Coeff of Óscar 14.0, Plt Count 427, MPV 10.4, Immature Gran % (Auto) 0.700, Neut % (Auto) 62.3, Lymph % (Auto) 23.3, [place] % (Auto) 12.5 H, Eos % (Auto) 0.8, Baso % (Auto) 0.4, Absolute Neuts (auto) 5.7, Absolute Lymphs (auto) 2.14, Nucleated RBC % 0, Sodium 141, Potassium 3.4, Chloride 109 H, Carbon Dioxide 18.1 L, Anion Gap 14, BUN 10, Creatinine 1.48 H, Estim Creat Clear Calc 25.40 L, Est GFR (MDRD) Non-Af 35 L, BUN/Creatinine Ratio 7.0 L, Glucose 144 H, Calcium 7.1 L Radiography Diagnostic Testing: Radiology Impression Brain CT 11/18/24 09:36 IMPRESSION: There is low-density in the deep white matter on the right and left with chronic ischemic changes, similar to the prior. No acute intracranial pathology. Reading Location: [facility] Physical Exam Const alert and no apparent distress HEENT head/scalp atraumatic and moist oral mucous membranes Resp normal respiratory effort, no retractions, no use of accessory muscles and clear to auscultation bilaterally Cardio regular rate, regular rhythm, S1 normal heart sound and S2 normal heart sound GI normal to inspection, nondistended, normoactive bowel sounds, soft to palpation, non-tender and non-distended Assessment & Plan Assessment/Plan (1) JUJU (acute kidney injury): PLAN: Admission creatinine of 2.78. Baseline creatinine is 0.9. Creatinine has improved down to 1.48 with IV fluids. No additional workup at this time. Continue with IV fluids the patient is unable to tolerate oral. (2) Nausea & vomiting: PLAN: Gastric emptying study negative. Speech therapy feels unlikely dysphagia but hyperreflexive gag reflex. Patient on full liquid diet. PLAN: Plan Diabetes mellitus type 2: Continue glargine and sign scale insulin. Metformin on hold. PAD: Recent carotid stenting. Continue with aspirin, atorvastatin and clopidogrel. Hyperlipidemia: Continue with amlodipine. VTE prophylaxis with subcu heparin Charges/Coding Visit Charges Inpatient E&M: 07802 Subs Hosp L2
[2024-11-19 08:57] VITALS: BP 148/50; PULSE 77; RESP 18; TEMP 36.9; O2SAT 98
[2024-11-19] MEDS: Clopidogrel Bisulfate 75 MG Tablet PO (08:59)
[2024-11-19] MEDS: Aspirin 81 MG TAB.CHEW PO (08:59)
[2024-11-19] MEDS: Pantoprazole Sodium 40 MG Tablet PO (08:59)
[2024-11-19] MEDS: Heparin Injection (Vial) 5,000 UNIT/ML VIAL 5000 UNIT SC ×2 (08:59→21:13)
[2024-11-19] MEDS: amLODIPine 5 MG Tablet PO ×2 (08:59→21:13)
[2024-11-19] MEDS: 0.9% Saline Lock 10 ML Syringe IV ×2 (09:04→21:13)
--- NOTE | 2024-11-19 09:14 | NM_ITS ---
PROCEDURE: GASTRIC EMPTYING STUDY 11/19/2024 REASON FOR EXAM: NAUSEA AND VOMITING. COMPARISON: None TECHNIQUE: The patient ingested a standard meal of oatmeal and radiopharmaceutical and water. There was no vomiting postprandially. Anterior and posterior planar images of the upper abdomen were obtained for 1 minute immediately following the meal at 1h, 2h and 4h if more than 10% of the activity persisted within the stomach. Regions of interest were drawn, and a geometric mean was used to calculate a [id number]. RADIOPHARMACEUTICAL: Sulfur colloid DOSE 1mCi FINDINGS: Percent activity remaining in stomach: 1 hour 21 % (normal 37-90%) NM/Gastric Emptying Study IMPRESSION: Normal gastric emptying. Reading Location: [facility]
[2024-11-19 12:02] LABS: Bedside Glucose 176 mg/dL (74-106)
[2024-11-19] MEDS: Insulin Lispro 100 UNIT/ML INSULN.PEN SC ×2 (12:03→21:13)
[2024-11-19 14:38] VITALS: BP 138/57; PULSE 85; RESP 18; TEMP 36.7; O2SAT 97
--- NOTE | 2024-11-19 15:19 | CASEMGMT ---
Addendum entered by Martha García 11/19/24 15:23: Reviewed ST notes from today. Note states it is TBD if OP ST is recommended. Original Note: ORESTES MARK NOTE: Script for OP PT obtained from Dr Rojas and given to pt. Instructed on use. She voices understanding and voices appreciation. She denies having other dishcarge needs or concners. Jessie TAMEZ RN CM
[2024-11-19 16:46] LABS: Bedside Glucose 147 mg/dL (74-106)
[2024-11-19 20:00] VITALS: BP 159/85; PULSE 90; RESP 16; TEMP 36.7; O2SAT 96
[2024-11-19] MEDS: Atorvastatin Calcium 40 MG Tablet PO (21:13)
[2024-11-19] MEDS: Insulin Glargine-YFGN 100 UNIT/ML Pen SC (21:13)
[2024-11-19 21:43] LABS: Bedside Glucose 161 mg/dL (74-106)
[2024-11-20 02:35] VITALS: BP 159/57; PULSE 88; RESP 16; TEMP 36.6; O2SAT 96
[2024-11-20 05:49] VITALS: BMI 36.8
[2024-11-20 06:53] LABS: Bedside Glucose 141 mg/dL (74-106)
[2024-11-20 08:54] LABS: Anion Gap 16 (5-15); BUN 7 mg/dL (4-19); Calcium,Total 7.4 mg/dL (7.6-11.0); Carbon Dioxide 21.6 mmol/L (21.0-32.0); Chloride 102 mmol/L (98-108); EST Glomerular Filtration Rate 45 (>60); Estimated Creatinine Clearance 31.44 ml/min (50-250); Glucose 149 mg/dL (70-99); Sodium Level 139 mmol/L (133-145)
[2024-11-20 09:00] VITALS: BP 152/49; PULSE 89; RESP 16; TEMP 36.6; O2SAT 98
[2024-11-20] MEDS: Pantoprazole Sodium 40 MG Tablet PO (10:17)
[2024-11-20] MEDS: amLODIPine 5 MG Tablet PO (10:17)
[2024-11-20] MEDS: Clopidogrel Bisulfate 75 MG Tablet PO (10:17)
[2024-11-20] MEDS: Aspirin 81 MG TAB.CHEW PO (10:17)
[2024-11-20] MEDS: Heparin Injection (Vial) 5,000 UNIT/ML VIAL 5000 UNIT SC (10:17)
[2024-11-20] MEDS: Losartan Potassium 50 MG Tablet PO (10:24)
[2024-11-20] MEDS: Potassium Chloride Oral Tablet 20 MEQ 60 MEQ PO (10:24)
[2024-11-20] MEDS: Insulin Lispro 100 UNIT/ML INSULN.PEN SC ×2 (12:14→16:36)
--- NOTE | 2024-11-20 15:25 | DS.PCM_ITS ---
Providers Date of Admission: 11/17/24 Date of Discharge: 11/20/24 Primary Care Physician: Dr. Divya Hinojosa MD Reason For Visit: ACUTE RENAL FAILURE Diagnosis Discharge Diagnosis (1) JUJU (acute kidney injury): Status: Acute Code(s): N17.9 - Acute kidney failure, unspecified (2) Nausea & vomiting: Status: Acute Code(s): R11.2 - Nausea with vomiting, unspecified Medications at Discharge Home Medications aspirin 81 mg chewable tablet 81 mg PO BREAKFAST SUPPLEMENT #0 tabs 09/03/24 atorvastatin 40 mg tablet 40 mg PO QHS CHOLESTEROL #30 tabs 09/03/24 clopidogrel 75 mg tablet 75 mg PO DAILY BLOOD THINNER #30 tabs 09/03/24 insulin glargine 100 unit/mL (3 mL) subcutaneous pen (Lantus Solostar U-100 Insulin) 10 unit (0.1 mL) subcut QHS DIABETES #15 mL 09/03/24 amlodipine 5 mg tablet 5 mg PO BID 10/22/24 omeprazole 40 mg capsule,delayed release 40 mg PO DAILY 10/22/24 losartan 50 mg tablet 50 mg PO DAILY 30 days #30 tabs 10/24/24 metformin 500 mg tablet 500 mg PO BID DIABETES #60 tabs 11/20/24 Hospital Course Operations None Procedures - (CT abdomen and pelvis/CT brain/gastric emptying study) Summary of Care Provided Minutes Spent on Discharge: 37 Hospital Course: Patient is an 83-year-old fairly independent white female who presents emergency department [facility] on 11/17/2024 due to gagging and dry heaves. Patient reported she had pretty significant symptoms for about 3 to 4 days prior to presentation which a lot of gagging causing dry heaves. She went to her primary care physician's office and they obtained labs which showed a serum creatinine of 2.82 which is much worse than her baseline so she was brought to the emergency department. She was also noted to have generalized weakness. Vital signs on presentation showed a temperature of 97.8, heart rate 86, respiratory 16, blood pressure 156/55 with an oxygen saturation of 99% on room air. CBC on presentation was unremarkable compared to her baseline. Her chemistry panel showed serum bicarb of 14.7 with an anion gap of 19 and a creatinine of 2.78 with a baseline of 9-1.1. Liver functions were normal. Lipase was normal. TSH and cortisol were normal. CT of the brain showed low density in the deep white matter on the right side consistent with her chronic changes on previous. CT abdomen pelvis was unremarkable. UA was suggestive of infection so urine culture was sent however showed contamination with mixed gram-positive and gram-negative organisms. Patient was admitted to the medical floor. She was given IV fluids and antiemetics. It sounds like her symptoms have been happening since she had a stroke. Workup was unremarkable. A's gastric emptying study was performed and was unremarkable as well. With time, her symptoms improved and she was able to tolerate p.o. diet without difficulty. Her serum creatinine was down to 1.2 on the day of discharge which was almost at her baseline. Patient was anxious to go home. We will go ahead and give her some as needed antiemetics just in case this reoccurs for her and I have I recommended she follow-up with her primary care physician within the next 1 to 2 weeks. Patient was able to be discharged home in stable condition with normalized renal function on 11/20/2024. Discharge diagnoses: Gagging-resolved Dry heaving-resolved JUJU-resolved Metabolic acidosis secondary to renal dysfunction-resolving Chronic normocytic anemia Hypokalemia-treated Essential hypertension Hyperlipidemia DM-2 Stroke GERD Obesity Carotid artery stenosis PVD Physical Exam Narrative Patient states she has not had any further gagging and able to keep down food without difficulty. Anxious to go home. Is concerned about her . Const alert, oriented x3, no apparent distress, no limitations and well nourished; Negative for average body habitus Constitutional Narrative: Elderly, obese, white female, sitting up in a chair, appears well, nontoxic, watching television General Appearance: cooperative, comfortable, well kempt and well developed Exam Limitations: no limitations Nutritional Appearance: obese HEENT normocephalic, head/scalp atraumatic and moist oral mucous membranes HEENT Narrative: Mallampati 2-3, no thrush Eyes conjunctivae normal Eyes Narrative: No scleral icterus Neck supple Neck Narrative: Trachea midline Resp normal respiratory effort, no retractions, no use of accessory muscles and clear to auscultation bilaterally Auscultation: Negative for rales, rhonchi or wheezes Cardio regular rate, regular rhythm, S1 normal heart sound, S2 normal heart sound, no murmurs, no rub, no gallops and no clicks GI normal to inspection, nondistended, normoactive bowel sounds, soft to palpation and non-tender Extremity Extremity Narrative: 2+ pedal and radial pulses, trace bilateral lower extremity edema which patient states is chronic and stable, no cyanosis or clubbing Skin no wounds, skin turgor normal and no jaundice Neuro oriented x3, moves all extremities and no focal motor deficits Speech: speech normal Psych affect normal Psych Narrative: Extremely pleasant, eye contact is good patient interacts appropriately Weight / BMI Weight Weight: 74.4 kg Body Mass Index (BMI) 36.8 ABG / Lab / Microbiology Data 11/19/24 06:29 11/20/24 07:55 Laboratory: Laboratory Results - last 24 hr 11/19/24 16:20: POC Glucose 147 H 11/19/24 21:12: POC Glucose 161 H 11/20/24 06:15: POC Glucose 141 H 11/20/24 07:55: Sodium 139, Potassium 3.0 L, Chloride 102, Carbon Dioxide 21.6, Anion Gap 16 H, BUN 7, Creatinine 1.20, Estim Creat Clear Calc 31.44 L, Est GFR (MDRD) Non-Af 45 L, BUN/Creatinine Ratio 6.0 L, Glucose 149 H, Calcium 7.4 L Microbiology: Microbiology 11/17/24 16:45 Urine, Clean Catch Urine Culture - Final Mixed Gram Pos & Gram Neg Org D/C Instructions Discharge Diet: Low fat / Low cholesterol Discharge Activity: Return to Normal Activity DC O2, CPAP, BIPAP Needs Home O2 Discharge instructions: No Meaningful Use Info Meaningful Use Meaningful Use Diagnoses (Choose all that apply): None applicable Ischemic Stroke Statin Dosing Therapy Reference: STATIN DOSE THERAPY REFERENCE: * Patients > 75 years receive moderate or high dose statin therapy. * Patients 75 years or YOUNGER should receive HIGH intensity statin dose unless contraindicated. You will be required to document reason for non-treatment if statin daily dose does not meet guidelines. HIGH DOSE STATIN THERAPY DAILY Atorvastatin > than or = to 40 mg Rosuvastatin > than or = to 20 mg Amlodipine + Atorvastatin > than or = to 2.5/40 mg Ezetimibe + Simvastatin 10/80 mg Simvastatin 80mg Discharge Plan Admission Admit Date/Time: 11/17/24 18:46 Primary Reason for Your Visit: Gagging/dry heaves Attending Provider: Dariana Wise Primary Care Provider: Divya Hinojosa Consulting Providers: Imelda Marsh; Ugo Rojas Discharge Orders/Prescriptions Prescriptions: Continued amlodipine 5 mg tablet 5 mg PO BID omeprazole 40 mg capsule,delayed release(DR/EC) 40 mg PO DAILY atorvastatin 40 mg Tablet 40 mg PO QHS Qty: 30 1RF aspirin 81 mg Tablet,Chewable 81 mg PO BREAKFAST Qty: 0 0RF clopidogrel 75 mg Tablet 75 mg PO DAILY Qty: 30 1RF insulin glargine [Lantus Solostar U-100 Insulin] 100 unit/mL (3 mL) insulin pen 10 unit subcut QHS Qty: 15 0RF losartan 50 mg Tablet 50 mg PO DAILY 30 Days Qty: 30 2RF metformin 500 mg tablet 500 mg PO BID Qty: 60 1RF Rx Instructions: Continue for now but if you redevelop any nausea or dry heaves would recommend holding Referrals / Follow Up: Divya Hinojosa MD [Primary Care Provider] - Within 1 Week Disposition Disposition (needs filled in before D/C Order can be placed): Home, Self Care Charges/Coding Visit Charges Inpatient E&M: 31718 Disch Hosp >30min
[2024-11-20 15:28] LABS: Bedside Glucose 227 mg/dL (74-106)
[2024-11-20 16:30] VITALS: BP 145/54; PULSE 74; RESP 16; TEMP 36.9; O2SAT 98
[2024-11-20 17:01] LABS: Bedside Glucose 171 mg/dL (74-106)
== END 2024-11-20 17:10 | disposition home or self-care (01) | DRG 683 ==
LOC: ED 18:52 → MS3 18:58
PROVIDERS: Admitting Provider Internal Medicine; Emergency Provider Emergency Medicine; PCP Internal Medicine; Visit Provider Internal Medicine
DX: N17.9 Acute kidney failure, unspecified (principal); E87.21 Acute metabolic acidosis; E11.51 Type 2 diabetes mellitus with diabetic peripheral angiopathy without gangrene; D64.9 Anemia, unspecified; E66.9 Obesity, unspecified; E78.00 Pure hypercholesterolemia, unspecified; I10 Essential (primary) hypertension; K21.9 Gastro-esophageal reflux disease without esophagitis; Z79.4 Long term (current) use of insulin; E87.6 Hypokalemia; R19.8 Other specified symptoms and signs involving the digestive system and abdomen; R29.2 Abnormal reflex; Z79.02 Long term (current) use of antithrombotics/antiplatelets; Z79.82 Long term (current) use of aspirin; Z79.84 Long term (current) use of oral hypoglycemic drugs; Z79.899 Other long term (current) drug therapy; Z86.73 Personal history of transient ischemic attack (TIA), and cerebral infarction without residual deficits; Z68.36 Body mass index [BMI] 36.0-36.9, adult
CPT/HCPCS: 36415; 70450; 74176; 78264; 80048; 80053; 81001; 82436; 82533; 82570; 82962; 83605; 83690; 84133; 84300; 84443; 84540; 85025; 87086; 87088; 92526; 96105; 97116; 97162; 97530; 97802; 99284; A9541; A4216

== ENCOUNTER 2025-01-10 09:06 | Inpatient (IN) | payer MEDICARE, SELFPAY ==
[2025-01-10] VITALS (12 sets, daily range): BP systolic 143–200; BP diastolic 46–89; PULSE 70–93; RESP 16–20; TEMP 36.1–36.8; O2SAT 94–100; BMI 34.1; BMI 31.8
--- NOTE | 2025-01-10 09:43 | CT_ITS ---
PROCEDURE: ABDOMEN/PELVIS WITHOUT CONT 01/10/2025 REASON FOR EXAM: VOMITING, RULE OUT OBSTRUCTION TECHNIQUE: ABDOMEN/PELVIS WITHOUT CONT Noncontrast technique limits evaluation of the abdominal and pelvic viscera. Coronal and Sagittal reconstruction series were provided. One or more dose reduction techniques were used (e.g., Automated exposure control, adjustment of the mA and/or kV according to patient size, use of iterative reconstruction technique). RADIATION DOSE SUMMARY: CTDlvol: 8.94 mGy DLP: 435.61 mGycm COMPARISON: Prior study dated November 17, 2024. FINDINGS: Lung bases: The lung bases are clear. Coronary artery calcification. Liver: Diffuse fatty infiltration. Gallbladder: Surgically absent. Spleen: Normal size. Pancreas: Diffuse fatty atrophy. Adrenals: Hyperplasia of the left adrenal gland. Kidneys: Stable fullness of the right renal pelvis although no evidence of obstruction. This may represent an extrarenal pelvis or parapelvic cysts.. No intra renal calculus ossifications are seen. Bladder: Unremarkable Reproductive Organs: Prior hysterectomy. Adnexal regions are unremarkable. Bowel: Colonic diverticulosis without diverticulitis. Appendix: The appendix is not identified. There is no inflammatory process identified in the right lower quadrant to suggest appendicitis. Lymph nodes: Unremarkable. Vasculature: Mild diffuse atherosclerotic calcifications are noted. Peritoneum / Retroperitoneum: Unremarkable Bones: Minimal degenerative changes with minimal anterior listhesis of L4 on L5 most likely secondary to facet joint osteoarthritis. CT/Abdomen/Pelvis without Cont IMPRESSION: Fatty infiltration of the liver. Status post cholecystectomy. Sigmoid diverticulosis. No evidence of bowel obstruction. Reading Location: [facility]
[2025-01-10 10:30] LABS: Hematocrit 28.4 % (37-47); Hemoglobin 9.2 g/dL (12.0-15.0); Immature Granulocytes Count 0.120 X10^3/uL (0.0-0.0); Mean Corp Hgb Conc 32.4 g/dL (32-36); Mean Corpuscular Volume 87.4 fL (81-99); Mean Platelet Vol. 10.2 fl (6.2-12.0); NRBC Flagged by Analyzer 0 % (0-5); Platelet Count 555 K/mm3 (150-450); RBC Distribution Width CV 14.4 % (11.6-14.6); RBC Distribution Width SD 46.1 fl (35.1-43.9); Red Blood Count 3.25 M/mm3 (4.2-5.4); White Blood Count 12.4 K/mm3 (4.4-11.0)
[2025-01-10 10:54] LABS: AST(SGOT) 21 U/L (<=31); Alanine Aminotransfer ALT/SGPT 26 U/L (<=34); Albumin, Serum 3.3 g/dL (3.4-4.8); Alkaline Phosphatase 127 U/L (35-104); Anion Gap 19 (5-15); BUN 19 mg/dL (4-19); BUN/Creat Ratio 16.0 RATIO (10-20); Calcium,Total 8.7 mg/dL (7.6-11.0); Carbon Dioxide 21.2 mmol/L (21.0-32.0); Chloride 98 mmol/L (98-108); Globulin 3.4 g/dL (2.2-4.2); Glucose 159 mg/dL (70-99); Potassium 3.5 mmol/L (3.3-5.1)
[2025-01-10] MEDS: 0.9% Normal Saline (1000mL) 1,000 ML 1000 ML IV (11:09)
--- NOTE | 2025-01-10 12:49 | PCM.HP.STD ---
HPI - General General Date of Admission: 01/10/25 Date of Service: 01/10/25 Chief Complaint: Gagging, dysphagia cannot swallow liquid solid or even air/hyperactive gag reflex HPI Narrative BLAYNE MOODY, is a 84 F came to ED for not able to swallow liquid or solid for some time. This is intermittent problem after she had right carotid stenting by Dr. Ugo Carey in September 2024. Prior to that she had a stroke and workup showed right carotid stenosis which required stenting. She said she lost about 30 pounds since September 2024 after carotid stenting surgery. She did not had swallow issues till then. She has intermittent dysphagia to solid, liquid. She cannot swallow pills. Sometimes even the cold air or 1 time while she was showering she started gagging, cannot swallow and started vomiting. Patient is accompanied with her daughter in the ED. She is not able to take her antihypertensive and other medications therefore BP in ED was very high systolic 200 mmHg and the cardiac monitor technician. It is charted as systolic 152/49. She is further admitted with GI consult. [facility] Medical History Wears glasses Wears dentures Bruising Insulin dependent diabetes mellitus High cholesterol Stroke/cerebrovascular accident History of echocardiogram History of edema CVA (cerebral vascular accident) Diabetes mellitus, type 2 Obesity (BMI 30-39.9) GERD (gastroesophageal reflux disease) Hypertension Diabetes Home Medications ?Medication ?Instructions ?Recorded ?Last Taken ?Type aspirin 81 mg chewable tablet 81 mg PO BREAKFAST SUPPLEMENT #0 09/03/24 01/07/25 Rx tabs atorvastatin 40 mg tablet 40 mg PO QHS CHOLESTEROL #30 tabs 09/03/24 01/07/25 Rx clopidogrel 75 mg tablet 75 mg PO DAILY BLOOD THINNER #30 09/03/24 01/07/25 Rx tabs insulin glargine 100 unit/mL (3 10 unit (0.1 mL) subcut QHS 09/03/24 01/04/25 Rx mL) subcutaneous pen (Lantus DIABETES #15 mL Solostar U-100 Insulin) amlodipine 5 mg tablet 5 mg PO BID 10/22/24 01/07/25 History omeprazole 40 mg capsule,delayed 40 mg PO DAILY 10/22/24 01/07/25 History release losartan 50 mg tablet 50 mg PO DAILY 30 days #30 tabs 10/24/24 01/07/25 Rx furosemide 20 mg tablet 20 mg PO DAILY 01/10/25 Unknown History metformin 500 mg tablet 250 mg PO BID DIABETES 01/10/25 01/07/25 History Allergy/AdvReac Type Severity Reaction Status Date / Time No Known Allergies Allergy Verified 01/10/25 09:08 Family History Other Diabetes Surgical History History of cholecystectomy Social History Smoking Status: Never smoker ROS ROS Narrative Constitutional: Reports fatigue and weakness. 30 pound weight loss since September 2024. No fever. HEENT: Cervical dysphagia as described in HPI reports systems reviewed and no addt'l complaints, except as documented Respiratory/Chest: No acute shortness of breath or respiratory distress or wheezing. CVS: No chest pain pressure or tightness Gastrointestinal: Gagging and sometimes vomiting. Denies coffee ground emesis, abdominal pain Genitourinary: Urinary retention. She did not voided urine since yesterday evening. Denies burning urination. Chronic stress incontinence Musculoskeletal: Denies acute joint pain or limited range of motion. No acute injury. Chronic arthritis of knees Neurologic: Denies seizure-like symptoms. Stroke in 08/2024, Right frontal lobe stroke skin: No ulcer. No rash. Endocrinology: Reports systems reviewed and no addt'l complaints, except as documented Hematologic/Lymphatic: Reports systems reviewed and no addt'l complaints, except as documented Rest 14 ROS are negative except as mentioned in HPI Vital Signs Vital Signs Vital Signs: 01/10/25 09:06 01/10/25 09:08 01/10/25 11:06 Temperature 98.1 F Temperature Source Oral Pulse Rate 87 74 Respiratory Rate 16 16 Respiratory Pattern Normal Blood Pressure 152/49 H 146/58 H Blood Pressure Mean 83 87 Pulse Ox 99 99 Oxygen Delivery Method Room Air Physical Exam Narrative General: Alert, Oriented x3, Cooperative. Was 175 pound in September 2024. Currently 150 pound, probably lost 25 pounds since October 17 HEENT: Atraumatic, PERRLA, EOMI, Normocephalic. Oral: No Gingival or Mucosal Lesions/ Ulcerations Neck: Supple, Negative Carotid Bruits, S/P right carotid stenting, carotid stenosis Chest wall/Lungs: Air entry diminished in bilateral lung bases. No crepitation/rhonchi Cardiovascular: Regular rate and rhythm, Normal S1,S2, No M/G/R Abdomen: Bowel Sounds Present, Soft, Non Tender, Non-Distended : No urine output since yesterday. No renal angle tenderness. No suprapubic tenderness. Extremities: No edema, Capillary Refill Less than 3 Seconds Skin: No rashes, No breakdown Musculoskeletal: No Tenderness to Palpation of Joints or Extremities Neurological: Cranial nerves II-XII grossly intact, DTR 2+/4. No acute focal neurological deficit. Psych/Mental Status: Normal Affect, Appropriate. Results Lab / Micro Data 01/10/25 10:22 01/10/25 10:22 Labs: Laboratory Results - last 24 hr 01/10/25 10:22: WBC 12.4 H, RBC 3.25 L, Hgb 9.2 L, Hct 28.4 L, MCV 87.4, MCH 28.3, MCHC 32.4, RDW Std Deviation 46.1 H, RDW Coeff of Óscar 14.4, Plt Count 555 H, MPV 10.2, Immature Gran % (Auto) 1.000 H, Neut % (Auto) 74.9 H, Lymph % (Auto) 14.0 L, [place] % (Auto) 9.2, Eos % (Auto) 0.6, Baso % (Auto) 0.3, Absolute Neuts (auto) 9.3 H, Absolute Lymphs (auto) 1.73, Nucleated RBC % 0, Sodium 138, Potassium 3.5, Chloride 98, Carbon Dioxide 21.2, Anion Gap 19 H, BUN 19, Creatinine 1.21 H, Est GFR (MDRD) Non-Af 44 L, BUN/Creatinine Ratio 16.0, Glucose 159 H, Calcium 8.7, Total Bilirubin 0.55, AST 21, ALT 26, Alkaline Phosphatase 127 H, Total Protein 6.7, Albumin 3.3 L, Globulin 3.4, Albumin/Globulin Ratio 1.0 Imaging Radiology Impression Abdomen/Pelvis CT 01/10/25 09:43 IMPRESSION: Fatty infiltration of the liver. Status post cholecystectomy. Sigmoid diverticulosis. No evidence of bowel obstruction. Reading Location: [facility] Assessment & Plan Assessment/Plan (1) Difficulty swallowing: QUALIFIERS: Dysphagia type: pharyngeal phase Qualified Code(s): R13.13 - Dysphagia, pharyngeal phase (2) Hyperactive gag reflex: PLAN: Plan This is a 84-year-old female who is being admitted for evaluation of dysphagia 1. Pharyngeal/cervical dysphagia complicated with loss of weight: Patient is being on MedSurg floor. From history it seems patient has a strong gag reflex as she is sensitive to cold air or water. GI consulted. EGD tomorrow a.m. NPO. Speech therapy evaluation. IV fluid D5 half NS +20 mEq KCl for nutritional purposes. Hold oral home medications. CT abdomen pelvis shows findings not related to dysphagia. Fatty infiltration of liver. Sigmoid diverticulosis with no evidence of bowel obstruction. 2. Hypertension: Patient had hypertensive emergency when she was admitted for right frontal lobe stroke. IV labetalol and IV hydralazine as needed ordered for blood pressure control. 3. History of right frontal lobe stroke in August 2024, bilateral carotid stenosis right more than left: Patient had right carotid stenting in September 2024. Prior to that she had right frontal lobe stroke in August 2024. No acute neurological deficit 4. Previous admission for JUJU in October 2024, hyponatremia in October 2024 with CKD stage IIIb: BUN/creatinine 19/1.21. Estimated creatinine clearance 44 mL/min. Patient kidney function is on baseline. Serum sodium is 138. 5. DM type II: Glucose is 159. Last A1c 7.7% in October 17. Accu-Chek every 6 hourly with Humalog sliding scale coverage and hypoglycemia protocol. A1c tomorrow a.m. 6. DVT prophylaxis high risk: Lovenox 40 mL subcu daily ordered Living will/advanced directive/end of life care: Patient does have living will or advanced directive. Patient has 2 power of [employer] worker for [employer] 1 is her son and another daughter present in ED. After discussion of benefits/risks procedures involved with full code, DNR CC arrest and DNR CC, the patient opted for DNR CC arrest with no intubation Patient doesn't want artificial life support including intubation, tube feed, ventilator and/chest compression, central venous catheter, vasopressor and DC shock if needed Total time spent in [id number] encounter in discussion of advanced directive 17 minutes. Laboratory Results 01/10/25 10:22: WBC 12.4 H, RBC 3.25 L, Hgb 9.2 L, Hct 28.4 L, MCV 87.4, MCH 28.3, MCHC 32.4, RDW Std Deviation 46.1 H, RDW Coeff of Óscar 14.4, Plt Count 555 H, MPV 10.2, Immature Gran % (Auto) 1.000 H, Neut % (Auto) 74.9 H, Lymph % (Auto) 14.0 L, [place] % (Auto) 9.2, Eos % (Auto) 0.6, Baso % (Auto) 0.3, Absolute Neuts (auto) 9.3 H, Absolute Lymphs (auto) 1.73, Nucleated RBC % 0, Sodium 138, Potassium 3.5, Chloride 98, Carbon Dioxide 21.2, Anion Gap 19 H, BUN 19, Creatinine 1.21 H, Est GFR (MDRD) Non-Af 44 L, BUN/Creatinine Ratio 16.0, Glucose 159 H, Calcium 8.7, Total Bilirubin 0.55, AST 21, ALT 26, Alkaline Phosphatase 127 H, Total Protein 6.7, Albumin 3.3 L, Globulin 3.4, Albumin/Globulin Ratio 1.0 01/10/25 13:25: Urine Color Pending, Urine Clarity Pending, Urine pH Pending, Ur Specific [place] Pending, Urine Protein Pending, Urine Glucose (UA) Pending, Urine Ketones Pending, Urine Occult Blood Pending, Urine Nitrite Pending, Urine Bilirubin Pending, Urine Urobilinogen Pending, Ur Leukocyte Esterase Pending, Urine RBC Pending, Urine WBC Pending, Ur Squamous Epith Cells Pending, Urine Bacteria Pending, Urine Mucus Pending Clinical Impression(s) from Imaging Studies Abdomen/Pelvis CT 01/10/25 09:43 IMPRESSION: Fatty infiltration of the liver. Status post cholecystectomy. Sigmoid diverticulosis. No evidence of bowel obstruction. Charges/Coding Visit Charges Inpatient E&M: 99952 Init Hosp L3 Procedures Hospitalists Procedures: 13941 Advncd Care Plan 30 Min
[2025-01-10 13:37] LABS: Mucous, Urine 0 SEEN /hpf (<or=2+)
[2025-01-10 13:54] LABS: Color, Urine Yellow (Yellow); Glucose, Dipstick 50 mg/dl (Normal); Ketone-Dipstick 5 mg/dl (Negative); Leukocyte Esterase-Dipstick Negative /ul (Negative); Nitrite-Dipstick Negative (Negative); Occult Blood-Urine 10 /ul (Negative); Protein-Dipstick 15 mg/dl (Negative); Specific Gravity, Urine 1.015 (1.002-1.030); Urine Bilirubin Dipstick Negative (Negative)
--- NOTE | 2025-01-10 14:15 | EDS_ITS ---
HPI History of Present Illness Chief Complaint: Weakness Narrative Narrative: Patient is a 84-year-old female presenting to the emergency department for difficulty tolerating p.o. Patient has a past medical history of a prior TIA [facility] Medical History Wears glasses Wears dentures Bruising Insulin dependent diabetes mellitus High cholesterol Stroke/cerebrovascular accident History of echocardiogram History of edema CVA (cerebral vascular accident) Diabetes mellitus, type 2 Obesity (BMI 30-39.9) GERD (gastroesophageal reflux disease) Hypertension Diabetes Home Medications ?Medication ?Instructions ?Recorded ?Last Taken ?Type aspirin 81 mg chewable tablet 81 mg PO BREAKFAST SUPPL EMENT #0 09/03/24 01/07/25 Rx tabs atorvastatin 40 mg tablet 40 mg PO QHS CHOLESTEROL #30 tabs 09/03/24 01/07/25 Rx clopidogrel 75 mg tablet 75 mg PO DAILY BLOOD THINNER #30 09/03/24 01/07/25 Rx tabs insulin glargine 100 unit/mL (3 10 unit (0.1 mL) subcu t QHS 09/03/24 01/04/25 Rx mL) subcutaneous pen (Lantus DIABETES #15 mL Solostar U-100 Insulin) amlodipine 5 mg tablet 5 mg PO BID 10/22/24 5 History omeprazole 40 mg capsule,delayed 40 mg PO DAILY 01/07/25 History release losartan 50 mg tablet 50 mg PO DAILY 30 days #30 t abs 10/24/24 01/07/25 Rx furosemide 20 mg tablet 20 mg PO DAILY 01/10/25 Unkn own History metformin 500 mg tablet 250 mg PO BID DIABETES 01/1001/07/25 History Allergy/AdvReac Type Severity Reaction Status Date / Time No Known Allergies Allergy Verified 01/10/25 09:08 Family History Other Diabetes Surgical History History of cholecystectomy Social History Smoking Status: Never smoker EXAM Physical Exam Const Vital Signs: 01/10/25 09:06 01/10/25 09:08 01/10/25 11:06 Temperature 98.1 F Temperature Source Oral Pulse Rate 87 74 Respiratory Rate 16 16 Respiratory Pattern Normal Blood Pressure 152/49 H 146/58 H Blood Pressure Mean 83 87 Pulse Ox 99 99 Oxygen Delivery Method Room Air [facility] Lab Data Labs: Laboratory Results - last 24 hr 01/10/25 10:22 WBC 12.4 H RBC 3.25 L Hgb 9.2 L Hct 28.4 L MCV 87.4 MCH 28.3 MCHC 32.4 RDW Std Deviation 46.1 H RDW Coeff of Óscar 14.4 Plt Count 555 H MPV 10.2 Immature Gran % (Auto) 1.000 H Neut % (Auto) 74.9 H Lymph % (Auto) 14.0 L [place] % (Auto) 9.2 Eos % (Auto) 0.6 Baso % (Auto) 0.3 Absolute Neuts (auto) 9.3 H Absolute Lymphs (auto) 1.73 Nucleated RBC % 0 Sodium 138 Potassium 3.5 Chloride 98 Carbon Dioxide 21.2 Anion Gap 19 H BUN 19 Creatinine 1.21 H Est GFR (MDRD) Non-Af 44 L BUN/Creatinine Ratio 16.0 Glucose 159 H Calcium 8.7 Total Bilirubin 0.55 AST 21 ALT 26 Alkaline Phosphatase 127 H Total Protein 6.7 Albumin 3.3 L Globulin 3.4 Albumin/Globulin Ratio 1.0 Radiography Diagnostic Testing: Clinical Impression(s) from Imaging Studies Abdomen/Pelvis CT 01/10/25 09:43 IMPRESSION: Fatty infiltration of the liver. Status post cholecystectomy. Sigmoid diverticulosis. No evidence of bowel obstruction. Reading Location: [facility] Discharge Plan Disposition Disposition: Acute Care Hospital [facility] Discharge Date/Time: 01/10/25 13:35
--- NOTE | 2025-01-10 14:15 | EX.ED.DYSGE1 ---
HPI History of Present Illness Chief Complaint: Weakness Narrative Narrative: Patient is a 84-year-old female presenting to the emergency department for difficulty tolerating p.o. Patient has a past medical history of a prior TIA and stenosis of her right carotid artery. Over the past few months she has had difficulty tolerating p.o. Patient states that its to the point where she can no longer take her pills without vomiting. States that she is scheduled to see GI for a EGD in January but feels that she is not able to keep any food or drink down and that is why she is here today. She is reporting that she is very fatigued. Denies fever, chills, chest pain, shortness of breath, abdominal pain. [facility] Medical History Wears glasses Wears dentures Bruising Insulin dependent diabetes mellitus High cholesterol Stroke/cerebrovascular accident History of echocardiogram History of edema CVA (cerebral vascular accident) Diabetes mellitus, type 2 Obesity (BMI 30-39.9) GERD (gastroesophageal reflux disease) Hypertension Diabetes Home Medications ?Medication ?Instructions ?Recorded ?Last Taken ?Type aspirin 81 mg chewable tablet 81 mg PO BREAKFAST SUPPLEMENT #0 09/03/24 01/07/25 Rx tabs atorvastatin 40 mg tablet 40 mg PO QHS CHOLESTEROL #30 tabs 09/03/24 01/07/25 Rx clopidogrel 75 mg tablet 75 mg PO DAILY BLOOD THINNER #30 09/03/24 01/07/25 Rx tabs insulin glargine 100 unit/mL (3 10 unit (0.1 mL) subcut QHS 09/03/24 01/04/25 Rx mL) subcutaneous pen (Lantus DIABETES #15 mL Solostar U-100 Insulin) amlodipine 5 mg tablet 5 mg PO BID 10/22/24 01/07/25 History omeprazole 40 mg capsule,delayed 40 mg PO DAILY 10/22/24 01/07/25 History release losartan 50 mg tablet 50 mg PO DAILY 30 days #30 tabs 10/24/24 01/07/25 Rx furosemide 20 mg tablet 20 mg PO DAILY 01/10/25 Unknown History metformin 500 mg tablet 250 mg PO BID DIABETES 01/10/25 01/07/25 History Allergy/AdvReac Type Severity Reaction Status Date / Time No Known Allergies Allergy Verified 01/10/25 09:08 Family History Other Diabetes Surgical History History of cholecystectomy Social History Smoking Status: Never smoker ROS ROS ED ROS Narrative See HPI EXAM Physical Exam Narrative Exam Narrative: Vital signs: Reviewed General: Alert and orientedx3. No acute distress. Chronically ill appearing. HEENT: Head is normocephalic and atraumatic, sinuses nontender, pupils equal round and reactive. Nares are patent. Oropharynx and throat exams normal. Neck: Supple without lymphadenopathy nontender Cardiovascular: Regular rate and rhythm, no murmurs. No rubs or gallops. Normal S1 and S2 Respiratory: Clear to auscultation bilaterally. No wheezes, rales, rhonchi Abdominal: Soft and nontender. Normal bowel sounds. No guarding or rebound. Nonsurgical abdomen Extremities: No tenderness. No bruising. Normal range of motion. Normal sensation. Skin: No rash or redness. Neurological: Cranial nerves II through XII are grossly intact. Normal strength and sensation. Normal cerebellar function The rest of the physical exam is unremarkable Const Vital Signs: 01/10/25 09:06 01/10/25 09:08 01/10/25 11:06 Temperature 98.1 F Temperature Source Oral Pulse Rate 87 74 Respiratory Rate 16 16 Respiratory Pattern Normal Blood Pressure 152/49 H 146/58 H Blood Pressure Mean 83 87 Pulse Ox 99 99 Oxygen Delivery Method Room Air MDM MDM MDM Narrative Medical decision making narrative: Patient is a 84-year-old female presenting to the emergency department for inability to tolerate p.o. Patient was seen and examined. Vitals are stable. Patient resting bed comfortably no acute distress. Labs were ordered to evaluate for any dehydration secondary to her decreased p.o. intake. CBC with mild leukocytosis of 12.4, chronic anemia of 9.2. BMP with slight bump in Cr at 1.21. Baseline elevated alk phos. CT shows no evidence of bowel obstruction. Patient unable to tolerate p.o. at home including her medications. Given this is progressive in nature I think the patient can go home and follow-up for the EGD however I think it is also appropriate for her to be admitted for an EGD given she will most likely be back in a short amount of time due to inability to tolerate any of her medications. Admission was offered. Daughter and patient feel most comfortable with this. Patient admitted to the hospitalist for further management. I did speak to Friend he was agreeable with possible EGD tomorrow. Clinical impression decreased PO intake swallowing difficulty History & Record Review Discussion w/independent historian: Patient and Family Lab Data Attestation: I reviewed the patient's lab results. Labs: Laboratory Results - last 24 hr 01/10/25 10:22 WBC 12.4 H RBC 3.25 L Hgb 9.2 L Hct 28.4 L MCV 87.4 MCH 28.3 MCHC 32.4 RDW Std Deviation 46.1 H RDW Coeff of Óscar 14.4 Plt Count 555 H MPV 10.2 Immature Gran % (Auto) 1.000 H Neut % (Auto) 74.9 H Lymph % (Auto) 14.0 L [place] % (Auto) 9.2 Eos % (Auto) 0.6 Baso % (Auto) 0.3 Absolute Neuts (auto) 9.3 H Absolute Lymphs (auto) 1.73 Nucleated RBC % 0 Sodium 138 Potassium 3.5 Chloride 98 Carbon Dioxide 21.2 Anion Gap 19 H BUN 19 Creatinine 1.21 H Est GFR (MDRD) Non-Af 44 L BUN/Creatinine Ratio 16.0 Glucose 159 H Calcium 8.7 Magnesium 1.4 L Total Bilirubin 0.55 AST 21 ALT 26 Alkaline Phosphatase 127 H Total Protein 6.7 Albumin 3.3 L Globulin 3.4 Albumin/Globulin Ratio 1.0 Radiography Diagnostic Testing: Clinical Impression(s) from Imaging Studies Abdomen/Pelvis CT 01/10/25 09:43 IMPRESSION: Fatty infiltration of the liver. Status post cholecystectomy. Sigmoid diverticulosis. No evidence of bowel obstruction. Reading Location: [facility] Discharge Plan Disposition Disposition: Acute Care Hospital [facility] Discharge Date/Time: 01/10/25 13:35
[2025-01-10] MEDS: KCL 20MEQ in D5.45NS 20 MEQ/1,000 ML IV.SOLN. 50 MEQ IV (14:19)
[2025-01-10 14:20] LABS: Red Blood Cells-Urine 0-5 SEEN /hpf (0-5); Squamous Epithelial Cells - UA 0-5 SEEN /hpf (5-10)
[2025-01-10 14:24] LABS: Transitional Epithelial - Ur 0-5 SEEN /hpf (0-5)
[2025-01-10 14:35] LABS: Magnesium 1.4 mg/dL (1.5-2.2)
--- NOTE | 2025-01-10 16:21 | PCM.PRE.AN2 ---
ASA Classification* ASA Classification ASA Classification: 3 Assessment & Plan Anesthesia* Anesthesia Assessment Anesthesia Assessment: Discussed sedation and/or anesthesia options, risks, benefits, and alternatives with patient/parents/legal guardian/POA. Questions invited. The patient/parents/legal guardian/POA seems to understand and agrees to proceed with anesthesia plan. Reviewed the physical assessment, medical history, allergy history and patient home medications list prior to surgery/procedure/anesthetic and documented any changes. Performed airway and anesthesia risk assessments. Anesthesia Type Anesthesia Type: MAC History Source History Obtained from:: Patient and Chart Anesthesia Focused Assessment* Temperature: 97.6 F Pulse Rate: 79 Blood Pressure: 175/46 Respiratory Rate: 18 Pulse Ox: 96 Oxygen Delivery Method: Room Air Airway Assessment Mouth opens: >3 cm Mallampati Score: III Teeth Condition: Dentures (upper and lower in patients room) Neck Range of motion (ROM): Full ROM Labs Anesthesia Preop lab: CBC WBC 12.4 K/mm3 (4.4-11.0) H 01/10/25 10:01/10/25 RBC 3.25 M/mm3 (4.2-5.4) L 01/10/25 10:01/10/25 Hgb 9.2 g/dL (12.0-15.0) L 01/10/25 10:01/10/25 Hct 28.4 % (37-47) L 01/10/25 10:01/10/25 Plt Count 555 K/mm3 (150-450) H 01/10/25 10:01/10/25 CHEMISTRY Potassium 3.5 mmol/L (3.3-5.1) 01/10/25 10:01/10/25 Sodium 138 mmol/L (133-145) 01/10/25 10:01/10/25 Magnesium 1.4 mg/dL (1.5-2.2) L 01/10/25 10:01/10/25 BUN 19 mg/dL (4-19) 01/10/25 10:01/10/25 Creatinine 1.21 mg/dL (0.70-1.20) H 01/10/25 10:01/10/25 Glucose 159 mg/dL (70-99) H 01/10/25 10:01/10/25 POC Glucose 171 mg/dL (74-106) H 11/20/24 16:26 11/20/24 TSH 1.260 uIU/mL (0.300-4.200) 11/18/24 05:47 11/18/24 COAG Pre-Assessment Diagnosis/Proposed Procedure Planned Operative Procedure(s): EGD Anesthesia History 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 When Was Last Pacemaker Check QUESTION #4 FULL TEXT: You/Your Family Experience fever (hyperthermia) with Anesthesia Last Oral Intake Last Oral intake: Last Oral Intake NPO since Meds taken in AM with sips of water? Meds patient instructed to take am of surgery Any additional information?: Yes NPO since: 00:00 (has not had anything to eat or drink in 2 days everything comes up gags) Meds taken in AM with sips of water?: No PONV PONV - human resources office manager: PONV - human resources office manager Female HX of Motion Sickness HX of N/V After Surgery Non-Smoker Duration of Surgery greater than 60 minutes Number of Risk Factors PONV Score Any additional information?: Yes Female: Yes HX of Motion Sickness: No HX of N/V After Surgery: No Non-Smoker: No Duration of Surgery greater than 60 minutes: No Number of Risk Factors: 1 PONV Score: Low Risk Height & Weight Height & Weight: Anesthesia: Height & Weight Height 4 ft 8 in 01/10/25 15:07 Weight: 64.365 kg 01/10/25 15:07 Body Mass Index (BMI) 31.8 01/10/25 13:39 Respiratory Assessment Respiratory Assessment - human resources office manager: Respiratory Tract Infection Hx - human resources office manager Hx Respiratory Tract Infection No 09/23/24 11:46 Any additional information?: No STOP Sleep Apnea STOP Sleep Apnea - human resources office manager: STOP Sleep Apnea - human resources office manager Hx Hypertension Yes 01/10/25 15:59 Hx Sleep Apnea No 01/10/25 13:55 CPAP BIPAP Do you snore loudly (louder No 01/10/25 13:55 than talking or can be heard Do you often feel tired/ No 01/10/25 13:55 fatigued/ sleepy during daytime? Has anyone observed you stop No 01/10/25 13:55 breathing during sleep? STOP Results Negative 01/10/25 13:55 QUESTION #5 FULL TEXT : Do you snore loudly (louder than talking or can be heard through closed doors)? 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 Specify any problems Hx of Preganancy in last 3 No 01/10/25 13:55 Months Nurse Filling Out Transfusion KMESSENGE 01/10/25 13:55 & Questions: Date: 01/10/25 01/10/25 13:55 Time: 13:57 01/10/25 13:55 Patient unable to answer at this time (ie. confused, unrespo Any additional information?: No /Reproduction History /Reproductive History - human resources office manager: /Reproductive Hx- human resources office manager Hx Now Gestational Age (in weeks): EDC: Hx Hx Para Hx Section SAB No 09/23/24 11:46 Any additional information?: No Active Medications Active Medications: Current Medications Generic Name Dose Route Start Last Admin Trade Name Freq PRN Reason Stop Dose Admin Acetaminophen 650 mg 01/10/25 13:39 Acetaminophen 325 Mg Tablet PO Q6H PRN PRN Pain 1-10 Or Fever>100.7 Enoxaparin Sodium 40 mg 01/10/25 13:39 01/10/25 14:20 Enoxaparin 40 Mg/0.4 Ml Syringe SC 40 mg Q24 PATIENCE Administration Glucagon 1 mg 01/10/25 13:39 Glucagon 1 Mg/Ml Syringe IM X1 PRN Hypoglycemia Protocol Hydralazine HCl 5 mg 01/10/25 13:39 Hydralazine 20 Mg/Ml Vial IV Q4H PRN PRN SBP more than 160 mmHg Protocol Potassium Chloride/Dextrose/Sod Cl 20 meq in 1,000 mls @ 50 mls/hr 01/10/25 13:39 01/10/25 14:19 IV 01/11/25 09:38 50 mls/hr .Q20H PATIENCE Administration Dextrose 250 mls @ 0 mls/hr 01/10/25 13:39 Dextrose 10%-Water IV .Q0M PRN HYPOGLYCEMIA Protocol As Directed Sodium Chloride 250 mls @ 15 mls/hr 01/10/25 13:50 IV .[id number] PRN Saline Flush Sodium Chloride 250 mls @ 15 mls/hr 01/10/25 13:50 IV .[id number] PRN Additional IVPB Infusion Insulin Glargine 8 unit 01/10/25 22:00 Insulin Glargine-Yfgn 100 Unit/Ml Pen SC QHS PATIENCE Insulin Human Lispro 0 unit 01/10/25 18:00 Insulin Lispro 100 Unit/Ml Insuln.Pen SC Q6 PATIENCE Protocol Labetalol HCl 20 mg 01/10/25 13:39 Labetalol 20 Mg/4 Ml Vial IV Q4H PRN PRN >180 mmhg Ondansetron HCl 4 mg 01/10/25 13:39 Ondansetron 4 Mg/2 Ml Vial IV Q6H PRN PRN NAUSEA/VOMITING Sodium Chloride 10 - 40 ml 01/10/25 13:50 0.9% Saline Lock 10 Ml Syringe IV UD PRN SALINE FLUSH PFSH Medical History Wears glasses Wears dentures Bruising Insulin dependent diabetes mellitus High cholesterol Stroke/cerebrovascular accident History of echocardiogram History of edema CVA (cerebral vascular accident) Diabetes mellitus, type 2 Obesity (BMI 30-39.9) GERD (gastroesophageal reflux disease) Hypertension Diabetes Home Medications ?Medication ?Instructions ?Recorded ?Last Taken ?Type aspirin 81 mg chewable tablet 81 mg PO BREAKFAST SUPPLEMENT #0 09/03/24 01/07/25 Rx tabs atorvastatin 40 mg tablet 40 mg PO QHS CHOLESTEROL #30 tabs 09/03/24 01/07/25 Rx clopidogrel 75 mg tablet 75 mg PO DAILY BLOOD THINNER #30 09/03/24 01/07/25 Rx tabs insulin glargine 100 unit/mL (3 10 unit (0.1 mL) subcut QHS 09/03/24 01/04/25 Rx mL) subcutaneous pen (Lantus DIABETES #15 mL Solostar U-100 Insulin) amlodipine 5 mg tablet 5 mg PO BID 10/22/24 01/07/25 History omeprazole 40 mg capsule,delayed 40 mg PO DAILY 10/22/24 01/07/25 History release losartan 50 mg tablet 50 mg PO DAILY 30 days #30 tabs 10/24/24 01/07/25 Rx furosemide 20 mg tablet 20 mg PO DAILY 01/10/25 Unknown History metformin 500 mg tablet 250 mg PO BID DIABETES 01/10/25 01/07/25 History Allergy/AdvReac Type Severity Reaction Status Date / Time No Known Allergies Allergy Verified 01/10/25 09:08 Family History Other Diabetes Surgical History (Updated 01/10/25 @ 16:28 by Yin Reyes CRNA) H/O carotid endarterectomy History of cholecystectomy Social History Smoking Status: Never smoker Review of Systems (Anesthesia) ROS Narrative System reviewed and no additional complaints, except as documented. Physical Exam Const alert and oriented x3 Orientation / Consciousness: awake Nutritional Appearance: obese HEENT Teeth and Gingiva: dentures Resp normal respiratory effort Cardio regular rate, regular rhythm and no murmurs
--- NOTE | 2025-01-10 17:30 | EGD_PTH ---
PATIENT: BLAYNE MOODY LOC: MS3 U#:[id number] AGE/SX: 84/F ROOM: [facility] [place]01/10/[address]: Dr. Severiano Banks MD : 1940 BED: 1 DIS: 01/11/2025 SPEC #: [id number] RECD: 01/11/25 07:34 STATUS: EHSAN NOYOLA #: [id number] GILLIAN: 01/10/25 17:[address]: Ra Sulemanhsaan DEPT: SURGICAL PATHOLOGY RECD BY: Leif Macedo ENTERED: 01/11/25 13:36 SP TYPE: EGD BIOPSY OT DR: MD Dr. Severiano De La Fuente MD Dr. Prakash Chand, MD Tissues: A - Esophagus, NOS Procedures: Special Stain Group I Surgery Specimen Level IV GMS Stain (control) HEADER OPERATION: EGD with biopsy, dilatation PRE-OP DIAGNOSIS: Difficulty swallowing, hyperactive gag reflex TISSUE SUBMITTED: A- Random esophagus biopsy MICROSCOPIC DIAGNOSIS A. Esophagus, random, biopsy: - Squamous mucosa with mild reactive changes. - Negative for eosinophils. - PASD stain is negative for fungal organisms. MICROSCOPIC DESCRIPTION Slides are reviewed. All controls reacted appropriately. GROSS DESCRIPTION A. Received in fixative is one container labeled with the patient's name and designated Random esophagus biopsy. The specimen consists of three irregular fragments of light franco soft tissue that measure 0.3 to 0.6 cm. The specimen is totally submitted in one cassette. OR 01/11/2025 CPT:09132 ,95067
--- NOTE | 2025-01-10 17:39 | EX.PCM.CON.G ---
HPI Consult Data Date of Consult: 01/10/25 HPI Narrative Reason for Consultation: Esophageal dysphagia HPI Narrative: BLAYNE MOODY, is a 84 F who presents with worse esophageal dysphagia to liquids and solids. 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 Over the past few months she has had difficulty tolerating p.o. Patient states that its to the point where she can no longer take her pills without vomiting. States that she is scheduled to see GI for a EGD in January but feels that she is not able to keep any food or drink down and that is why she is here today. She is reporting that she is very fatigued. Denies fever, chills, chest pain, shortness of breath, abdominal pain. 01/10/25 10:22: WBC 12.4 H, RBC 3.25 L, Hgb 9.2 L, Hct 28.4 L, MCV 87.4, MCH 28.3, MCHC 32.4, RDW Std Deviation 46.1 H, RDW Coeff of Óscar 14.4, Plt Count 555 H, MPV 10.2, Immature Gran % (Auto) 1.000 H, Neut % (Auto) 74.9 H, Lymph % (Auto) 14.0 L, Beckham % (Auto) 9.2, Eos % (Auto) 0.6, Baso % (Auto) 0.3, Absolute Neuts (auto) 9.3 H, Absolute Lymphs (auto) 1.73, Nucleated RBC % 0, Sodium 138, Potassium 3.5, Chloride 98, Carbon Dioxide 21.2, Anion Gap 19 H, BUN 19, Creatinine 1.21 H, Est GFR (MDRD) Non-Af 44 L, BUN/Creatinine Ratio 16.0, Glucose 159 H, Calcium 8.7, Total Bilirubin 0.55, AST 21, ALT 26, Alkaline Phosphatase 127 H, Total Protein 6.7, Albumin 3.3 L, Globulin 3.4, Albumin/Globulin Ratio 1.0 01/10/25 13:25: Urine Color Pending, Urine Clarity Pending, Urine pH Pending, Ur Specific [place] Pending, Urine Protein Pending, Urine Glucose (UA) Pending, Urine Ketones Pending, Urine Occult Blood Pending, Urine Nitrite Pending, Urine Bilirubin Pending, Urine Urobilinogen Pending, Ur Leukocyte Esterase Pending, Urine RBC Pending, Urine WBC Pending, Ur Squamous Epith Cells Pending, Urine Bacteria Pending, Urine Mucus Pending CT/Abdomen/Pelvis without Cont IMPRESSION: Fatty infiltration of the liver. Status post cholecystectomy. Sigmoid diverticulosis. No evidence of bowel obstruction. [facility] Medical History Wears glasses Wears dentures Bruising Insulin dependent diabetes mellitus High cholesterol Stroke/cerebrovascular accident History of echocardiogram History of edema CVA (cerebral vascular accident) Diabetes mellitus, type 2 Obesity (BMI 30-39.9) GERD (gastroesophageal reflux disease) Hypertension Diabetes Home Medications ?Medication ?Instructions ?Recorded ?Last Taken ?Type aspirin 81 mg chewable tablet 81 mg PO BREAKFAST SUPPLEMENT #0 09/03/24 01/07/25 Rx tabs atorvastatin 40 mg tablet 40 mg PO QHS CHOLESTEROL #30 tabs 09/03/24 01/07/25 Rx clopidogrel 75 mg tablet 75 mg PO DAILY BLOOD THINNER #30 09/03/24 01/07/25 Rx tabs insulin glargine 100 unit/mL (3 10 unit (0.1 mL) subcut QHS 09/03/24 01/04/25 Rx mL) subcutaneous pen (Lantus DIABETES #15 mL Solostar U-100 Insulin) amlodipine 5 mg tablet 5 mg PO BID 10/22/24 01/07/25 History omeprazole 40 mg capsule,delayed 40 mg PO DAILY 10/22/24 01/07/25 History release losartan 50 mg tablet 50 mg PO DAILY 30 days #30 tabs 10/24/24 01/07/25 Rx furosemide 20 mg tablet 20 mg PO DAILY 01/10/25 Unknown History metformin 500 mg tablet 250 mg PO BID DIABETES 01/10/25 01/07/25 History Allergy/AdvReac Type Severity Reaction Status Date / Time No Known Allergies Allergy Verified 01/10/25 09:08 Family History Other Diabetes Surgical History H/O carotid endarterectomy History of cholecystectomy Social History Smoking Status: Never smoker ROS Constitutional Constitutional: Denies fatigue, fever(s), poor appetite, weight gain or weight loss Gastrointestinal Gastrointestinal: Denies belching, bloating, change in bowel habits, change in stool character, chewing difficulty, coffee ground emesis, constipation, cramping, diarrhea, dyspepsia, dysphagia, early satiety, excessive flatus, fecal incontinence, heartburn, hematemesis, hematochezia, hemorrhoids, loose stools, melena, nausea, odynophagia, rectal bleeding, tenesmus, vomiting or weight changes Physical Exam Const alert, oriented x3, no apparent distress and healthy appearing General Appearance: cooperative GI normal to inspection, nondistended, normoactive bowel sounds, soft to palpation, non-tender and non-distended Percussion: normal to percussion Rectal Exam: deferred Medical Records Data Medical Nutrition Assessment Dietitian: Malnutrition Criteria Met Start: 01/10/25 15:30 Freq: Status: Active Protocol: Document 01/10/25 15:31 SLA (Rec: 01/10/25 15:31 [facility] [id number]) Nutrition Malnutrition Evidence of Yes Malnutrition Exists Malnutrition (severe Chronic ): Evidenced By Suboptimal Energy Intake (Severe),Weight Loss (Severe) Clinical Problem Chronic Disease or Condition Related Malnutrition Etiology related to issues gagging w/ vomiting and inadequate energy intake Signs/Symptoms as evidenced by po intake meeting < 75% of est nutritional needs and 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 Dietitian As medically able, rec NGUYỄN to liberal Regular diet - 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s/ consistency per [employer] Changes As medically able, rec ONS w/ medpass if pt agreeable Will monitor for outcome of GI consult/EGD and make additional rec as appropriate Lab / Micro Data 01/10/25 10:22 01/10/25 10:22 Labs: Laboratory Results - last 24 hr 01/10/25 10:22: WBC 12.4 H, RBC 3.25 L, Hgb 9.2 L, Hct 28.4 L, MCV 87.4, MCH 28.3, MCHC 32.4, RDW Std Deviation 46.1 H, RDW Coeff of Óscar 14.4, Plt Count 555 H, MPV 10.2, Immature Gran % (Auto) 1.000 H, Neut % (Auto) 74.9 H, Lymph % (Auto) 14.0 L, Beckham % (Auto) 9.2, Eos % (Auto) 0.6, Baso % (Auto) 0.3, Absolute Neuts (auto) 9.3 H, Absolute Lymphs (auto) 1.73, Nucleated RBC % 0, Sodium 138, Potassium 3.5, Chloride 98, Carbon Dioxide 21.2, Anion Gap 19 H, BUN 19, Creatinine 1.21 H, Est GFR (MDRD) Non-Af 44 L, BUN/Creatinine Ratio 16.0, Glucose 159 H, Calcium 8.7, Magnesium 1.4 L, Total Bilirubin 0.55, AST 21, ALT 26, Alkaline Phosphatase 127 H, Total Protein 6.7, Albumin 3.3 L, Globulin 3.4, Albumin/Globulin Ratio 1.0 01/10/25 13:25: Urine Color Yellow, Urine Clarity Clear, Urine pH 5.0, Ur Specific [place] 1.015, Urine Protein 15 H, Urine Glucose (UA) 50 H, Urine Ketones 5 H, Urine Occult Blood 10 H, Urine Nitrite Negative, Urine Bilirubin Negative, Urine Urobilinogen Normal, Ur Leukocyte Esterase Negative, Urine RBC 0-5 SEEN, Urine WBC 0-5 SEEN, Ur Squamous Epith Cells 0-5 SEEN, Ur Transition Epith Cell 0-5 SEEN, Urine Bacteria 0 SEEN, Hyaline Casts 0-5 SEEN, Urine Mucus 0 SEEN Imaging Radiology Impression Abdomen/Pelvis CT 01/10/25 09:43 IMPRESSION: Fatty infiltration of the liver. Status post cholecystectomy. Sigmoid diverticulosis. No evidence of bowel obstruction. Reading Location: [id number] Assessment & Plan Assessment/Plan (1) Difficulty swallowing: QUALIFIERS: Dysphagia type: pharyngeal phase Qualified Code(s): R13.13 - Dysphagia, pharyngeal phase (2) Hyperactive gag reflex: PLAN: Plan This is a 84-year-old female who is being admitted for evaluation of dysphagia Differential diagnosis does include oropharyngeal dysphagia and esophageal dysphagia. She has a history of CVA which makes oropharyngeal dysphagia a lot more likely. However she will undergo an upper endoscopy to evaluate upper GI tract and may require a swallowing evaluation along with a CT scan of the chest. She was explained alternatives, risk and benefits include not withstanding bleeding, infection, sepsis, perforation, need for surgery . She will have an ASA of 3. Charges/Coding Visit Charges Inpatient E&M: 24486 Init Hosp L3
--- NOTE | 2025-01-10 18:27 | PCM.POST.ANE ---
Anesthesia: Postop Eval I Current Vital Signs Temperature: 97 F Pulse Rate: 92 Blood Pressure: 143/61 Respiratory Rate: 16 Pulse Ox: 98 Oxygen Delivery Method: Room Air Assessment Airway patent: Yes Spontaneous unlabored respirations: Yes Mental status: Awake and Calm nausea: No Vomiting: No Anesthesia Complication: No Fluid Hydration Crystalloid volume administer (ml): 300 Total IV fluid infused: 300 Progress Note Anesthesia document: Postop Eval 1 completed: Yes
--- NOTE | 2025-01-10 18:29 | OP.PROVAT_ITS ---
01/10/2025 Divya Hinojosa [address] [place] [address] Re : Upper GI endoscopy procedure for Chelsea Shook Dear Dr. Hinojosa This procedure was performed on Friday, January 10, 2025. My impressions and recommendations are as follows: Impressions : - Benign-appearing esophageal stenosis. Dilated. - Abnormal esophageal motility. - No gross lesions in the entire stomach. - No gross lesions in the entire examined duodenum. - Biopsies were taken with a cold forceps for evaluation of eosinophilic esophagitis. 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s : - Return patient to [facility] for ongoing care. - Advance diet as tolerated. - Continue present medications. My findings are described in the full procedure note, which is enclosed. If I can be of further assistance, please feel free to contact me at . Sincerely, Brayan Shell, 01/10/2025 6:29:02 PM This report has been signed electronically.
--- NOTE | 2025-01-10 18:29 | OP.EGD_ITS ---
Patient Name: Chelsea Shook Procedure Date: 01/10/2025 5:43 PM Date of : 1940 Age: 84 Procedure: Upper GI endoscopy Indications: Dysphagia Providers: Brayan Shell DO Medicines: Monitored Anesthesia Care Patient Profile: This is an 84 year old female. Refer to note in patient chart for documentation of history and physical. Patient has symptoms of dysphagia with both liquids and solids. The symptoms first began in the remote past. Complications: No immediate complications. Procedure: Pre-Anesthesia Assessment: - Prior to the procedure, a History and Physical was performed, and patient medications and allergies were reviewed. The patient is competent. The risks and benefits of the procedure and the sedation options and risks were discussed with the patient. All questions were answered and informed consent was obtained. Patient identification and proposed procedure were verified by the physician in the pre-procedure area. Mental Status Examination: alert and oriented. Airway Examination: normal oropharyngeal airway and neck mobility. Respiratory Examination: clear to auscultation. CV Examination: normal. Prophylactic Antibiotics: The patient does not require prophylactic antibiotics. Prior Anticoagulants: The patient has taken no anticoagulant or antiplatelet agents. ASA Grade Assessment: II - A patient with mild systemic disease. After reviewing the risks and benefits, the patient was deemed in satisfactory condition to undergo the procedure. The anesthesia plan was to use monitored anesthesia care (MAC). Immediately prior to administration of medications, the patient was re-assessed for adequacy to receive sedatives. The heart rate, respiratory rate, oxygen saturations, blood pressure, adequacy of pulmonary ventilation, and response to care were monitored throughout the procedure. The physical status of the patient was re-assessed after the procedure. After obtaining informed consent, the endoscope was passed under direct vision. Throughout the procedure, the patient's blood pressure, pulse, and oxygen saturations were monitored continuously. The Endoscope was introduced through the mouth, and advanced to the second part of duodenum. The upper GI endoscopy was accomplished without difficulty. The patient tolerated the procedure well. Scope In: 6:11:13 PM Scope Out: 6:17:18 PM Total Procedure Duration Time 0 hours 6 minutes 5 seconds Findings: One benign-appearing, intrinsic moderate stenosis was found 18 to 22 cm from the incisors. This stenosis measured 5 cm (in length). The stenosis was traversed. A guidewire was placed and the scope was withdrawn. Dilation was performed with a Savary dilator with no resistance at 51 Fr. The dilation site was examined following endoscope reinsertion and showed moderate improvement in luminal narrowing. Estimated blood loss was minimal. Abnormal motility was noted in the esophagus. The cricopharyngeus was abnormal. There is spasticity of the esophageal body. The distal esophagus/lower esophageal sphincter is spastic, but gives up passage to the endoscope. Biopsies were obtained from the proximal and distal esophagus with cold forceps for histology of suspected eosinophilic esophagitis. No gross lesions were noted in the entire examined stomach. No gross lesions were noted in the entire examined duodenum. Impression: - Benign-appearing esophageal stenosis. Dilated. - Abnormal esophageal motility. - No gross lesions in the entire stomach. - No gross lesions in the entire examined duodenum. - Biopsies were taken with a cold forceps for evaluation of eosinophilic esophagitis. 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: - Return patient to [facility] for ongoing care. - Advance diet as tolerated. - Continue present medications. Procedure Code(s): --- Professional --- 30628, Esophagogastroduodenoscopy, flexible, transoral; with insertion of guide wire followed by passage of dilator(s) through esophagus over guide wire [id number], 59,51, Esophagogastroduodenoscopy, flexible, transoral; with biopsy, single or multiple CPT copyright 2021 [employer]. All rights reserved. The codes documented in this report are preliminary and upon bat boy/girl review may be revised to meet current compliance requirements. Brayan Shell DO 01/10/2025 6:29:02 PM This report has been signed electronically. Number of Addenda: 0 Note Initiated On: 01/10/2025 5:43 PM
--- NOTE | 2025-01-10 18:44 | SUR.PHASEI ---
CALLED FOR TRANSPORT BACK TO [facility]
[2025-01-10] MEDS: 0.9% Saline Lock 10 ML Syringe IV (19:11)
--- NOTE | 2025-01-10 21:01 | PCM.POSTANE2 ---
Anesthesia Postop Eval I Sum Postop Eval Completion status Anesthesia document: Postop Eval 1 completed: Yes Anesthesia Postop Eval I Summary Anesthesia Postop Eval I Summary: Anesthesia Postop Eval I: Assessment Summary Airway patent Yes 01/10/25 18:29 Spontaneous unlabored Yes 01/10/25 18:29 respirations Mental status Awake,Calm 01/10/25 18:29 nausea No 01/10/25 18:29 Vomiting No 01/10/25 18:29 Anesthesia Postop Eval I: Fluid Summary Crystalloid volume administer 300 01/10/25 18:29 (ml) Colloids volume administered ( ml) Blood Product volume administered (ml) Total IV fluid infused 300 01/10/25 18:29 Anesthesia Postop Eval I: Summary Notes Anesthesia Complication No 01/10/25 18:29 Anesthesia Complication Comment: Post-operative progress note Anesthesia: Postop Eval II Evaluation Mental status: Awake and Calm Pain Level: 0 nausea: No Vomiting: No Complications Anesthesia Complication: No
[2025-01-10] MEDS: Insulin Glargine-YFGN 100 UNIT/ML Pen 8 UNIT SC (22:16)
[2025-01-11 02:34] VITALS: BP 149/62; PULSE 68; RESP 16; TEMP 36.7; O2SAT 96
[2025-01-11 07:03] LABS: Hematocrit 25.3 % (37-47); Hemoglobin 8.4 g/dL (12.0-15.0); Immature Granulocytes Count 0.090 X10^3/uL (0.0-0.0); Mean Corp Hgb Conc 33.2 g/dL (32-36); Mean Corpuscular Volume 86.6 fL (81-99); Mean Platelet Vol. 10.2 fl (6.2-12.0); NRBC Flagged by Analyzer 0 % (0-5); Platelet Count 470 K/mm3 (150-450); RBC Distribution Width CV 14.5 % (11.6-14.6); RBC Distribution Width SD 45.9 fl (35.1-43.9); Red Blood Count 2.92 M/mm3 (4.2-5.4); White Blood Count 10.5 K/mm3 (4.4-11.0)
[2025-01-11 07:33] LABS: Anion Gap 15 (5-15); BUN 11 mg/dL (4-19); BUN/Creat Ratio 13.3 RATIO (10-20); Calcium,Total 7.8 mg/dL (7.6-11.0); Carbon Dioxide 21.3 mmol/L (21.0-32.0); Chloride 102 mmol/L (98-108); Estimated Creatinine Clearance 40.52 ml/min (50-250); Glucose 188 mg/dL (70-99); Potassium 3.1 mmol/L (3.3-5.1)
[2025-01-11 07:43] VITALS: BP 160/49; PULSE 82; RESP 18; TEMP 36.8; O2SAT 98
--- NOTE | 2025-01-11 08:57 | PN.HOSP_ITS ---
Reason for Visit Chief Complaint: Gagging, dysphagia cannot swallow liquid solid or even air/hyperactive gag reflex Subjective Subjective This is a 84-year-old female who is being admitted for evaluation of dysphagia Objective Data Objective Data Vital Signs: Vital Signs Temp Pulse Resp BP Pulse Ox O2 Del Method 98.2 F 82 18 160/49 H 98 Room Air 01/11/25 07:43 01/11/25 07:43 01/11/25 07:43 01/11/25 07:43 01/11/25 07:43 01/11/25 07:43 Oxygen Delivery Method Room Air Weight: 64.365 kg Body Mass Index (BMI) 31.8 Intake & Output: Intake and Output for Last 24 Hours 01/09/25 01/10/25 01/11/25 23:59 23:59 23:59 Intake Total 1109.17 / 1109.17 700 / 700 Output Total Balance 1108.17 / 1108.17 700 / 700 Medical Nutrition Assessment Dietitian: Malnutrition Criteria Met Start: 01/10/25 15:30 Freq: Status: Active Protocol: Document 01/10/25 15:31 SLA (Rec: 01/10/25 15:31 SLA [id number]) Nutrition Malnutrition Evidence of Yes Malnutrition Exists Malnutrition (severe Chronic ): Evidenced By Suboptimal Energy Intake (Severe),Weight Loss (Severe) Clinical Problem Chronic Disease or Condition Related Malnutrition Etiology related to issues gagging w/ vomiting and inadequate energy intake Signs/Symptoms as evidenced by po intake meeting < 75% of est nutritional needs and 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 Dietitian As medically able, rec NGUYỄN to liberal Regular diet - 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 Changes As medically able, rec ONS w/ medpass if pt agreeable Will monitor for outcome of GI consult/EGD and make additional rec as appropriate Lab / Micro Data 01/11/25 06:54 01/11/25 06:54 Labs: Laboratory Results - last 24 hr 01/10/25 10:22: WBC 12.4 H, RBC 3.25 L, Hgb 9.2 L, Hct 28.4 L, MCV 87.4, MCH 28.3, MCHC 32.4, RDW Std Deviation 46.1 H, RDW Coeff of Óscar 14.4, Plt Count 555 H, MPV 10.2, Immature Gran % (Auto) 1.000 H, Neut % (Auto) 74.9 H, Lymph % (Auto) 14.0 L, [place] % (Auto) 9.2, Eos % (Auto) 0.6, Baso % (Auto) 0.3, Absolute Neuts (auto) 9.3 H, Absolute Lymphs (auto) 1.73, Nucleated RBC % 0, Sodium 138, Potassium 3.5, Chloride 98, Carbon Dioxide 21.2, Anion Gap 19 H, BUN 19, C reatinine 1.21 H, Est GFR (MDRD) Non-Af 44 L, BUN/Creatinine Ratio 16.0, Glucose 159 H, Calcium 8.7, Magnesium 1.4 L, Total Bilirubin 0.55, AST 21, ALT 26, A lkaline Phosphatase 127 H, Total Protein 6.7, Albumin 3.3 L, Globulin 3.4, Albumin/Globulin Ratio 1.0 01/10/25 13:25: Urine Color Yellow, Urine Clarity Clear, Urine pH 5.0, Ur Specific [place] 1.015, Urine Protein 15 H, Urine Glucose (UA) 50 H, Urine Ketones 5 H, Urine Occult Blood 10 H, Urine Nitrite Negative, Urine Bilirubin Negative, Urine Urobilinogen Normal, Ur Leukocyte Esterase Negative, Urine RBC 0-5 SEEN, Urine WBC 0-5 SEEN, Ur Squamous Epith Cells 0-5 SEEN, Ur Transition Epith Cell 0-5 SEEN, Urine Bacteria 0 SEEN, Hyaline Casts 0-5 SEEN, Urine Mucus 0 SEEN 01/10/25 22:13: POC Glucose 145 H 01/11/25 05:58: POC Glucose 163 H 01/11/25 06:54: WBC 10.5, RBC 2.92 L, Hgb 8.4 L, Hct 25.3 L, MCV 86.6, MCH 28.8, MCHC 33.2, RDW Std Deviation 45.9 H, RDW Coeff of Óscar 14.5, Plt Count 470 H, MPV 10.2, Immature Gran % (Auto) 0.900, Neut % (Auto) 69.6, Lymph % (Auto) 19.3, [place] % (Auto) 9.1, Eos % (Auto) 0.7, Baso % (Auto) 0.4, Absolute Neuts (auto) 7.3, Absolute Lymphs (auto) 2.03, Nucleated RBC % 0, Sodium 138, Potassium 3.1 L , Chloride 102, Carbon Dioxide 21.3, Anion Gap 15, BUN 11, Creatinine 0.85, E stim Creat Clear Calc 40.52 L, Est GFR (MDRD) Non-Af 67, BUN/Creatinine Ratio 13.3, Glucose 188 H, Calcium 7.8 Radiography Diagnostic Testing: Radiology Impression Abdomen/Pelvis CT 01/10/25 09:43 IMPRESSION: Fatty infiltration of the liver. Status post cholecystectomy. Sigmoid diverticulosis. No evidence of bowel obstruction. Reading Location: [facility] Physical Exam Narrative GENERAL: cooperative HEENT: Atraumatic; normocephalic EYES; Anicteric, Normal Conjunctiva NECK; supple, normal thyroid, RESPIRATORY: Diminished to auscultation CARDIOVASCULAR: Regular S1 S2, GI: soft, normoactive bowel sounds, : No Renal angle tenderness; EXTREMITIES: No edema, no clubbing, MUSCULOSKELETAL: no muscle wasting NEURO: Awake; no lateralizing signs. SKIN: No Rash PSYCH; Flat affect Assessment & Plan Assessment/Plan (1) Difficulty swallowing: QUALIFIERS: Dysphagia type: pharyngeal phase Qualified Code(s): R 13.13 - Dysphagia, pharyngeal phase (2) Hyperactive gag reflex: PLAN: Plan This is a 84-year-old female who is being admitted for evaluation of dysphagia 1. Dysphagia ? Patient was kept n.p.o. after midnight consult placed to GI Dr. Shell. He did perform EGD on 01/10/2025 Findings and recommendation as below Benign-appearing esophageal stenosis. Dilated. - Abnormal esophageal motility. - No gross lesions in the entire stomach. - No gross lesions in the entire examined duodenum. - Biopsies were taken with a cold forceps for evaluation of eosinophilic esophagitis. 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s : - Return patient to [facility] for ongoing care. - Advance diet as tolerated. - Continue present medications. Plan is for patient to be discharged to follow-up with Dr. Shell as outpatient for results of the biopsies 2. Hypertension ? Blood pressure controlled, home medications continued with dose adjustment as needed 3. Hypomagnesemia ? Corrected per protocol repeat mag level ordered for a.m. 4. Hypokalemia ? Corrected for protocol repeat potassium levels ordered for a.m. 5. Diabetes mellitus type II -patient's oral hypoglycemics held. Placed on long acting insulin, Accu-Cheks a.c. and at bedtime and covered with sliding scale insulin 6. GERD ? On PPI 7. Class I obesity with BMI of 31.8 ? Weight loss advised 8. Dyslipidemia ?Patient is on statin therapy, continued at home dose 9. DVT prophylaxis ? Lovenox [place] Time spent in the patient's overall evaluation,decision-making process, review of diagnostic data, adjustment of management, discussion with other providers, nursing nursing and ancillary staff involved in patient's care documentation, 36 Minutes Charges/Coding Visit Charges Inpatient E&M: 72574 Subs Hosp L2
[2025-01-11] MEDS: Magnesium Sulfate 2 GM in Dextrose 5%-Water (100mL Bag) 100 ML IV (09:31)
[2025-01-11] MEDS: Magnesium Chloride 64 MG Delay Rel.Tablet 128 MG PO (09:43)
--- NOTE | 2025-01-11 10:27 | DS.PCM_ITS ---
Providers Date of Admission: 01/10/25 Date of Discharge: 01/11/25 Primary Care Physician: Dr. Divya Hinojosa MD Reason For Visit: CERVICAL DYSPHAGIA Diagnosis Discharge Diagnosis (1) Difficulty swallowing: Status: Acute Code(s): R13.10 - Dysphagia, unspecified Qualifiers: Dysphagia type: pharyngeal phase Qualified Code(s): R13.13 - Dysphagia, pharyngeal phase (2) Hyperactive gag reflex: Status: Acute Code(s): J39.2 - Other diseases of pharynx Plan This is a 84-year-old female who is being admitted for evaluation of dysphagia 1. Dysphagia ? Patient was kept n.p.o. after midnight consult placed to GI Dr. Shell. He did perform EGD on 01/10/2025 Findings and recommendation as below Benign-appearing esophageal stenosis. Dilated. - Abnormal esophageal motility. - No gross lesions in the entire stomach. - No gross lesions in the entire examined duodenum. - Biopsies were taken with a cold forceps for evaluation of eosinophilic esophagitis. 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s : - Return patient to [facility] for ongoing care. - Advance diet as tolerated. - Continue present medications. Plan is for patient to be discharged to follow-up with Dr. Shell as outpatient for results of the biopsies 2. Hypertension ? Blood pressure controlled, home medications continued with dose adjustment as needed 3. Hypomagnesemia ? Corrected per protocol repeat mag level ordered for a.m. 4. Hypokalemia ? Corrected for protocol repeat potassium levels ordered for a.m. 5. Diabetes mellitus type II -patient's oral hypoglycemics held. Placed on long acting insulin, Accu-Cheks a.c. and at bedtime and covered with sliding scale insulin 6. GERD ? On PPI 7. Class I obesity with BMI of 31.8 ? Weight loss advised 8. Dyslipidemia ?Patient is on statin therapy, continued at home dose 9. DVT prophylaxis ? Lovenox [place] Time spent in the patient's overall evaluation,decision-making process, review of diagnostic data, adjustment of management, discussion with other providers, nursing nursing and ancillary staff involved in patient's care documentation, 36 Minutes Medications at Discharge Home Medications aspirin 81 mg chewable tablet 81 mg PO BREAKFAST SUPPLEMENT #0 tabs 09/03/24 atorvastatin 40 mg tablet 40 mg PO QHS CHOLESTEROL #30 tabs 09/03/24 clopidogrel 75 mg tablet 75 mg PO DAILY BLOOD THINNER #30 tabs 09/03/24 insulin glargine 100 unit/mL (3 mL) subcutaneous pen (Lantus Solostar U-100 Insulin) 10 unit (0.1 mL) subcut QHS DIABETES #15 mL 09/03/24 amlodipine 5 mg tablet 5 mg PO BID 10/22/24 omeprazole 40 mg capsule,delayed release 40 mg PO DAILY 10/22/24 losartan 50 mg tablet 50 mg PO DAILY 30 days #30 tabs 10/24/24 furosemide 20 mg tablet 20 mg PO DAILY 01/10/25 metformin 500 mg tablet 250 mg PO BID DIABETES 01/10/25 potassium chloride 20 mEq tablet,extended release(part/cryst) 20 meq PO BIDCM #30 tabs 01/11/25 Physical Exam Narrative GENERAL: cooperative HEENT: Atraumatic; normocephalic EYES; Anicteric, Normal Conjunctiva NECK; supple, normal thyroid, RESPIRATORY: Diminished to auscultation CARDIOVASCULAR: Regular S1 S2, GI: soft, normoactive bowel sounds, : No Renal angle tenderness; EXTREMITIES: No edema, no clubbing, MUSCULOSKELETAL: no muscle wasting NEURO: Awake; no lateralizing signs. SKIN: No Rash PSYCH; Flat affect Medical Records Data Medical Nutrition Assessment Dietitian: Malnutrition Criteria Met Start: 01/10/25 15:30 Freq: Status: Active Protocol: Document 01/10/25 15:31 MENG (Rec: 01/10/25 15:31 SLA [id number]) Nutrition Malnutrition Evidence of Yes Malnutrition Exists Malnutrition (severe Chronic ): Evidenced By Suboptimal Energy Intake (Severe),Weight Loss (Severe) Clinical Problem Chronic Disease or Condition Related Malnutrition Etiology related to issues gagging w/ vomiting and inadequate energy intake Signs/Symptoms as evidenced by po intake meeting < 75% of est nutritional needs and 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 Problem 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 Dietitian As medically able, rec NGUYỄN to liberal Regular diet - 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s/ 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 Changes As medically able, rec ONS w/ medpass if pt agreeable Will monitor for outcome of GI consult/EGD and make additional rec as appropriate Weight / BMI Weight Weight: 64.365 kg Body Mass Index (BMI) 31.8 ABG / Lab / Microbiology Data 01/11/25 06:54 01/11/25 06:54 Laboratory: Laboratory Results - last 24 hr 01/10/25 10:22: WBC 12.4 H, RBC 3.25 L, Hgb 9.2 L, Hct 28.4 L, MCV 87.4, MCH 28.3, MCHC 32.4, RDW Std Deviation 46.1 H, RDW Coeff of Óscar 14.4, Plt Count 555 H, MPV 10.2, Immature Gran % (Auto) 1.000 H, Neut % (Auto) 74.9 H, Lymph % (Auto) 14.0 L, [place] % (Auto) 9.2, Eos % (Auto) 0.6, Baso % (Auto) 0.3, Absolute Neuts (auto) 9.3 H, Absolute Lymphs (auto) 1.73, Nucleated RBC % 0, Sodium 138, Potassium 3.5, Chloride 98, Carbon Dioxide 21.2, Anion Gap 19 H, BUN 19, C reatinine 1.21 H, Est GFR (MDRD) Non-Af 44 L, BUN/Creatinine Ratio 16.0, Glucose 159 H, Calcium 8.7, Magnesium 1.4 L, Total Bilirubin 0.55, AST 21, ALT 26, A lkaline Phosphatase 127 H, Total Protein 6.7, Albumin 3.3 L, Globulin 3.4, Albumin/Globulin Ratio 1.0 01/10/25 13:25: Urine Color Yellow, Urine Clarity Clear, Urine pH 5.0, Ur Specific [place] 1.015, Urine Protein 15 H, Urine Glucose (UA) 50 H, Urine Ketones 5 H, Urine Occult Blood 10 H, Urine Nitrite Negative, Urine Bilirubin Negative, Urine Urobilinogen Normal, Ur Leukocyte Esterase Negative, Urine RBC 0-5 SEEN, Urine WBC 0-5 SEEN, Ur Squamous Epith Cells 0-5 SEEN, Ur Transition Epith Cell 0-5 SEEN, Urine Bacteria 0 SEEN, Hyaline Casts 0-5 SEEN, Urine Mucus 0 SEEN 01/10/25 22:13: POC Glucose 145 H 01/11/25 05:58: POC Glucose 163 H 01/11/25 06:54: WBC 10.5, RBC 2.92 L, Hgb 8.4 L, Hct 25.3 L, MCV 86.6, MCH 28.8, MCHC 33.2, RDW Std Deviation 45.9 H, RDW Coeff of Óscar 14.5, Plt Count 470 H, MPV 10.2, Immature Gran % (Auto) 0.900, Neut % (Auto) 69.6, Lymph % (Auto) 19.3, [place] % (Auto) 9.1, Eos % (Auto) 0.7, Baso % (Auto) 0.4, Absolute Neuts (auto) 7.3, Absolute Lymphs (auto) 2.03, Nucleated RBC % 0, Sodium 138, Potassium 3.1 L , Chloride 102, Carbon Dioxide 21.3, Anion Gap 15, BUN 11, Creatinine 0.85, E stim Creat Clear Calc 40.52 L, Est GFR (MDRD) Non-Af 67, BUN/Creatinine Ratio 13.3, Glucose 188 H, Calcium 7.8 Radiography Diagnostic Testing: Radiology Impression Abdomen/Pelvis CT 01/10/25 09:43 IMPRESSION: Fatty infiltration of the liver. Status post cholecystectomy. Sigmoid diverticulosis. No evidence of bowel obstruction. Reading Location: [id number] Instructions Discharge Activity: Return to Normal Activity Call your doctor if you observe: Fever of 101 or Higher, Shortness of breath, Fainting spells and Chest pain DC O2, CPAP, BIPAP Needs Home O2 Discharge instructions: No Meaningful Use Info Meaningful Use Meaningful Use Diagnoses (Choose all that apply): None applicable Discharge Plan Admission Admit Date/Time: 01/10/25 12:46 Attending Provider: Severiano Banks Primary Care Provider: Divya Hinojosa Consulting Providers: Jason Lopez Discharge Orders/Prescriptions Prescriptions: New potassium chloride 20 mEq Tablet,Er Particles/Crystals 20 meq PO BIDCM Qty: 30 0RF Continued amlodipine 5 mg tablet 5 mg PO BID omeprazole 40 mg capsule,delayed release(DR/EC) 40 mg PO DAILY atorvastatin 40 mg Tablet 40 mg PO QHS Qty: 30 1RF aspirin 81 mg Tablet,Chewable 81 mg PO BREAKFAST Qty: 0 0RF clopidogrel 75 mg Tablet 75 mg PO DAILY Qty: 30 1RF insulin glargine [Lantus Solostar U-100 Insulin] 100 unit/mL (3 mL) insulin pen 10 unit subcut QHS Qty: 15 0RF losartan 50 mg Tablet 50 mg PO DAILY 30 Days Qty: 30 2RF furosemide 20 mg tablet 20 mg PO DAILY metformin 500 mg tablet 250 mg PO BID Rx Instructions: Continue for now but if you redevelop any nausea or dry heaves would recommend holding Referrals / Follow Up: Divya Hinojosa MD [Primary Care Provider] - Friend,DO Brayan [Med Staff - Active Staff] - Within 2 Weeks Disposition Disposition (needs filled in before D/C Order can be placed): Home, Self Care Charges/Coding Visit Charges Inpatient E&M: 31094 Disch Hosp >30min
--- NOTE | 2025-01-11 11:10 | CASEMGMT ---
ORESTES MARK Assessment Face to Face with patient for initial transition planning/care coordination assessment. ORESTES MARK introduced self and role at [facility], pt voices understanding. Pt is A&Ox4 and is resting comfortably in the chair and is calm. Care providers, pharmacy, and demographics verified. Admitting dx: Cervical Dysphagia LACE Strata: 3 PCP: Divya Hinojosa Specialists: Dennise (ENT) Preferred Pharmacy: [facility] Insurance: O [facility] Prescription Benefit: Yes LNOK: Maria A (Dtr), Courtney (GD), Jose A (SO) Living Arrangements: Pt lives with her SO in a single story home with a ramp to enter ADLs/IADLs: Pt states that she is indep and denies needs or concerns. See PT notes. 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 DME: [facility] with sufficient supplies. FWW. Shower chair HHC/SNF: Denies hx or needs Pt?s goal: Home Plan: Home with family support (SO, daughters) and to follow up with GI for Biopsy results as scheduled for 01/27. Pt states that she feels safe with this plan and denies any further questions or concerns at this time. Gunner Anderson RN, CM
[2025-01-11] MEDS: Potassium Chloride 10mEq/100mL 10 MEQ/100 ML IV.SOLN. 100 MEQ IV BOLUS ×4 (11:38→15:00)
[2025-01-11] MEDS: 0.9% Normal Saline (250mL Bag) 250 ML 50 ML IV (14:56)
[2025-01-11 15:11] VITALS: BP 171/54; PULSE 84; RESP 18; TEMP 36.4; O2SAT 94
== END 2025-01-11 18:37 | disposition home or self-care (01) | DRG 391 ==
LOC: ED 12:49 → MS3 12:59
PROVIDERS: Internal Medicine Gastroenterology; Admitting Provider Internal Medicine; Emergency Provider Student in an Organized Health Care Education/Training Program; PCP Internal Medicine; Visit Provider Internal Medicine
PROC: 0DJ08ZZ Inspection of Upper Intestinal Tract, Via Natural or Artificial Opening Endoscopic (ICD-10-PCS; CPT 43235; principal; 2025-01-10 17:25)
DX: K22.2 Esophageal obstruction (principal); E43 Unspecified severe protein-calorie malnutrition; Z66 Do not resuscitate; E11.22 Type 2 diabetes mellitus with diabetic chronic kidney disease; N18.32 Chronic kidney disease, stage 3b; I12.9 Hypertensive chronic kidney disease with stage 1 through stage 4 chronic kidney disease, or unspecified chronic kidney disease; K76.0 Fatty (change of) liver, not elsewhere classified; Z68.31 Body mass index [BMI] 31.0-31.9, adult; E78.00 Pure hypercholesterolemia, unspecified; E83.42 Hypomagnesemia; E87.6 Hypokalemia; K57.30 Diverticulosis of large intestine without perforation or abscess without bleeding; Z79.4 Long term (current) use of insulin; K21.9 Gastro-esophageal reflux disease without esophagitis; Z79.82 Long term (current) use of aspirin; Z79.02 Long term (current) use of antithrombotics/antiplatelets; Z79.84 Long term (current) use of oral hypoglycemic drugs; Z79.899 Other long term (current) drug therapy; Z86.73 Personal history of transient ischemic attack (TIA), and cerebral infarction without residual deficits
CPT/HCPCS: 36415; 74176; 80048; 80053; 81001; 82962; 83735; 85025; 88305; 88312; 94668; 97162; 97166; 97802; 99284; A4216; C1769; J2405

== ENCOUNTER 2025-02-04 18:28 | Inpatient (IN) | payer MEDICARE, SELFPAY ==
[2025-02-04 18:37] VITALS: BP 143/52; PULSE 90; RESP 16; TEMP 37; O2SAT 98
[2025-02-04 20:00] VITALS: PULSE 94; RESP 16; O2SAT 99; BMI 34.5
--- NOTE | 2025-02-04 20:33 | HP.PCM_ITS ---
[facility] - General General Date of Admission: 02/04/25 Date of Service: 02/07/25 Chief Complaint: Here for rehabilitation. HPI Narrative BLAYNE MOODY, is a 84 Female who presents with followin01/27/2025 Admit to [facility] with progressive dysphagia, severe gagging, bilious vomiting, weight loss for months. Also Hypertensive urgency. Stroke August 2024, Right carotid artery stenosis 70%. 10/05/2024 Dr. Rogel performed right carotid artery stent. A few days later, severe gagging, vomiting, unable to eat, triggered by eating, drinking. Happens few times daily. 40 pound weight loss in 4 months. 01/10/2025 Dr. Shell EGD esophageal stenosis, dilated; abnormal esophageal motility. CT neck showed right thyroid mass extending to right tracheoesophageal groove, no mass effect. CorPak placed. 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 Plan: TF via CorPak, replete electrolytes, Nutrition, EDGE GRINDER MACHINE, barium swallow, esophageal manometry, GI consult, Neurology consul, Zofran prn, Ativan prn. Monitor for aspiration. Hydralazine IV for HTN. Aspirin, Plavix for stroke. 01/29/2025 MBS mild pharygeal dysphagia, consider repeat EGD. Continue TF, monitor for refeeding syndrome. Outpatient follow up for right thyroid mass. 01/30/2025 No acute events overnight. Heartburn resolved, no nausea, no vomiting, no gagging, no abdominal pain. ENT thinks right thyroid mass contributing to dysphagia. TF via CorPak, plan CT guided biopsy of right thyroid mass. Outpatient follow up with head and neck surgery for thyroidectomy. Low phosphorous 2/2 refeeding syndrome. Blood pressure improved. 01/31/2025 Doing fine, no complaints. PT/OT; IR recommended thyroid biopsy as outpatient. Outpatient head and neck surgery for thyroidectomy. WBC 18.8, evaluate for infection. Miralax for severe constipation. 02/01/2025 Doing well overnight, large BM. TF via Corpak, thyroid biopsy, thyroidectomy as outpatient. Replace electrolytes for refeeding syndrome. WBC 18.8, no obvious infection. Hypertensive urgency resolved. 02/01/2025 Negative for sepsis at this time. 02/02/2025 Doing well, had BM, defer thyroid biopsy as mass is stable. Dysphagia functional instead of obstructive. 02/03/2025 Right ankle pain, swelling, consult Orthopedics. 02/04/2025 Ortho performed arthrocentesis right ankle, no urgent intervention recommended. Dysphagia functional. Esophagram shows dysmotiligy, f/u ENT outpatient. Baseline constipation. 02/04/2025 Admit to TCU with debility, here for rehabilitation, strengthening, prior to discharge home with daughter. ON LICENSE OF [facility] Medical History (Updated 02/04/25 @ 20:[address] Delmar Dunbar MD) Gagging episode History of common carotid artery stent placement Hyponatremia Muscle weakness Primary hypertension Hallucination Loss of appetite Wears glasses Wears dentures Bruising Insulin dependent diabetes mellitus High cholesterol Stroke/cerebrovascular accident History of echocardiogram History of edema CVA (cerebral vascular accident) Diabetes mellitus, type 2 Obesity (BMI 30-39.9) GERD (gastroesophageal reflux disease) Hypertension Diabetes Home Medications ?Medication ?Instructions ?Recorded ?Last Taken ?Type aspirin 81 mg chewable tablet 81 mg PO BREAKFAST SUPPL EMENT #0 09/03/24 01/07/25 Rx tabs atorvastatin 40 mg tablet 40 mg PO QHS CHOLESTEROL #30 tabs 09/03/24 01/07/25 Rx clopidogrel 75 mg tablet 75 mg PO DAILY BLOOD THINNER #30 09/03/24 01/07/25 Rx tabs insulin glargine 100 unit/mL (3 10 unit (0.1 mL) subcu t QHS 09/03/24 01/04/25 Rx mL) subcutaneous pen (Lantus DIABETES #15 mL Solostar U-100 Insulin) amlodipine 5 mg tablet 5 mg PO DAILY blood pressure 10/22/24 01/07/25 History omeprazole 40 mg capsule,delayed 40 mg PO DAILY GERD 0 10/22/24 01/07/25 History release losartan 50 mg tablet 50 mg PO DAILY Blood pressur e 30 10/24/24 01/07/25 Rx days #30 tabs furosemide 20 mg tablet 20 mg PO DAILY Diuretic 12/24 01/17 Unknown History metformin 500 mg tablet 250 mg PO BID DIABETES 01/1001/07/25 History potassium chloride 20 mEq 20 meq PO BIDCM #30 tabs Unknown Rx tablet,extended release(part/cryst) docosahexaenoic acid (dha)-epa 1 cap PO QDAY 01/14/25 Unknown History capsule metformin 1,000 mg tablet 1,000 mg PO BID Diabetes 05/19 Unknown History thiamine HCl (vitamin B1) 100 mg 100 mg PO TID Supplem ent 02/04/25 Unknown History tablet Allergy/AdvReac Type Severity Reaction Status Date / Time No Known Allergies Allergy Verified 01/10/25 09:08 Family History Mother Hypertension Father Diabetes Daughter TIA (transient ischemic attack) Son CVA (cerebral vascular accident) Diabetes Obesity Son Diabetes Son Hypertension Son Hypertension TIA (transient ischemic attack) Son Hypertension Uncle Diabetes Surgical History (Updated 02/04/25 @ 20:[address] Delmar Dunbar MD) History of total abdominal hysterectomy H/O carotid endarterectomy History of cholecystectomy Social History (Updated 02/03/25 @ 08:[address] Delmar Dunbar MD) household members: family and other details: Lives with daughter. Smoking Status: Never smoker alcohol intake: current substance use type: does not use ROS Constitutional Constitutional: Reports weakness; Denies chills, fever(s) or weight gain ENT HEENT: Denies headache(s), nasal congestion or nasal discharge Cardiovascular Cardiovascular: Denies chest pain or palpitations Respiratory/Chest Respiratory/Chest: Denies cough, excessive phlegm production or shortness of breath with exertion Gastrointestinal Gastrointestinal: Denies abdominal pain, nausea or vomiting Genitourinary Genitourinary: Denies dysuria Musculoskeletal Musculoskeletal: Denies joint pain or joint swelling Integumentary Integumentary: Denies rash or wounds Neurologic Neurologic: Denies focal weakness, numbness or tingling Psychiatric Psychiatric: Denies anxiety, auditory hallucinations, depression, homicidal ideation or suicidal ideation Vital Signs Vital Signs Vital Signs: 02/04/25 18:37 Temperature 98.6 F Temperature Source Oral Pulse Rate 90 Respiratory Rate 16 Blood Pressure 143/52 H Blood Pressure Mean 82 Blood Pressure Source Monitor Blood Pressure Position Semi-Fowlers Blood Pressure Location Right Arm Pulse Ox 98 Oxygen Delivery Method Room Air Physical Exam Const alert General Appearance: cooperative HEENT normocephalic Eyes PERRL and EOMs intact bilaterally Neck supple, no JVD and no carotid bruits Resp normal respiratory effort, normal air movement and clear to auscultation bilaterally Cardio regular rate and regular rhythm GI normal to inspection, nondistended, normoactive bowel sounds, non-tender and non-distended Extremity normal capillary refill General Extremity: Negative for edema Skin no rashes or lesions noted General Skin Exam: no breakdown Psych affect normal Appearance: appropriate Results Lab / Micro Data 02/06/25 17:15 02/05/25 06:48 Assessment & Plan Assessment/Plan (1) Debility: (2) Functional dysphagia: (3) Thyroid mass: (4) Stroke/cerebrovascular accident: (5) Stenosis of right carotid artery: (6) Type 2 diabetes mellitus with hyperglycemia: (7) Primary hypertension: (8) Hyperlipidemia, unspecified: (9) GERD (gastroesophageal reflux disease): (10) Edema: PLAN: Plan 84 year old female with below past medical history hospitalized for dysphagia, complicated by refeeding syndrome, right thyroid mass, admitted to TCU with debility, here for rehabilitation, strengthening, prior to discharge home with daughter. * Debility - PT/OT. * Dysphagia - ST. * Pain - Tylenol 1000mg q6 prn pain (1-10). * Bowel - senna/colace 1 tablet bid, Magnesium citrate 150mL po x 1 prn. * Adult immunization - Administer pneumonia vaccine, covid vaccine, flu vaccine as appropriate. * DVT prophylaxis - Hold, on dual antiplatelet therapy. * Hypertension - Losartan 50mg daily, Amlodipine 5mg daily. * Stroke - Aspirin 81mg daily, Plavix 75mg daily. * Hyperlipidemia - Atorvastatin 40mg qhs. * Edema - Lasix 20mg daily. * Diabetes Mellitus II - Metformin 1000mg bidcm, Glargine 10 units qhs. * GERD - Pantoprazole 40mg daily. * Thiamine deficiency - Thiamine 100mg tid. * Anemia - Hemoglobin 6.9, transfused 2 units PRBC, Post transfusion hemoglobin 11.4, +Hemoccult, consult Dr. Shell.
[2025-02-04] MEDS: Thiamine Hydrochloride 100 MG Tablet PO (20:46)
[2025-02-04] MEDS: Insulin Glargine-YFGN 100 UNIT/ML Pen 10 UNIT SC (22:41)
[2025-02-05] VITALS (10 sets, daily range): BP systolic 124–152; BP diastolic 37–66; PULSE 80–96; RESP 12–18; TEMP 36.2–37.4; O2SAT 96–100; BMI 31.4
[2025-02-05] MEDS: Thiamine Hydrochloride 100 MG Tablet PO ×2 (06:53→22:31)
[2025-02-05 07:11] LABS: Hematocrit 21.3 % (37-47); Hemoglobin 6.9 g/dL (12.0-15.0); Immature Granulocytes Count 0.200 X10^3/uL (0.0-0.0); Mean Corp Hgb Conc 32.4 g/dL (32-36); Mean Corpuscular Volume 89.9 fL (81-99); Mean Platelet Vol. 10.7 fl (6.2-12.0); NRBC Flagged by Analyzer 0 % (0-5); Platelet Count 530 K/mm3 (150-450); RBC Distribution Width CV 17.2 % (11.6-14.6); RBC Distribution Width SD 54.9 fl (35.1-43.9); Red Blood Count 2.37 M/mm3 (4.2-5.4); White Blood Count 11.1 K/mm3 (4.4-11.0)
[2025-02-05 07:34] LABS: Anion Gap 11 (5-15); BUN 16 mg/dL (4-19); BUN/Creat Ratio 17.5 RATIO (10-20); Calcium,Total 9.0 mg/dL (7.6-11.0); Carbon Dioxide 21.5 mmol/L (21.0-32.0); Chloride 100 mmol/L (98-108); Estimated Creatinine Clearance 39.85 ml/min (50-250); Glucose 170 mg/dL (70-99); Potassium 4.2 mmol/L (3.3-5.1)
[2025-02-05 08:28] LABS: Iron 34 ug/dL (50-170)
--- NOTE | 2025-02-05 08:45 | NURSING ---
call placed to with HBG level this am, new telephone orders placed
[2025-02-05] MEDS: Senna/Docusate Sodium 1 Tablet PO ×2 (09:59)
--- NOTE | 2025-02-05 11:00 | PCM.PN.DRR ---
Documented by User: Allyssa Bahena 02/05/25 11:16 TCU RX Drug Regimen Review Subjective/Objective Subjective/Objective Subjective: TCU Admission. 84 YOF presented to outside ER with progressive dysphagia, severe gagging, bilious vomiting and weight loss. Hospitalized for dysphagia, complicated by refeeding syndrome, right thyroid mass. Admitted to TCU with debility for strengthening and rehabilitation. Objective: Allergies No Known Allergies Allergy (Verified 01/10/25 09:08) Current Medications Generic Name Dose Route Start Last Admin Trade Name Freq PRN Reason Stop Dose Admin Acetaminophen 1,000 mg 02/04/25 21:00 Acetaminophen 500 Mg Tablet PO Q6H PRN PRN Pain Score 1-10 Amlodipine Besylate 5 mg 02/05/25 10:00 02/05/25 09:58 Amlodipine 5 Mg Tablet PO 5 mg DAILY PATIENCE Administration Protocol Aspirin 81 mg 02/05/25 08:00 02/05/25 09:57 Aspirin 81 Mg Tab.Chew PO 81 mg BREAKFAST PATIENCE Administration Atorvastatin Calcium 40 mg 02/04/25 22:00 02/04/25 20:46 Atorvastatin Calcium 40 Mg Tablet PO 40 mg QHS PATIENCE Administration Clopidogrel Bisulfate 75 mg 02/05/25 10:00 02/05/25 09:59 Clopidogrel Bisulfate 75 Mg Tablet PO 75 mg DAILY PATIENCE Administration Furosemide 20 mg 02/05/25 10:00 02/05/25 09:58 Furosemide 20 Mg Tablet PO 20 mg DAILY PATIENCE Administration Protocol Sodium Chloride 250 mls @ 15 mls/hr 02/04/25 18:37 IV .[id number] PRN Saline Flush Sodium Chloride 250 mls @ 15 mls/hr 02/04/25 18:37 IV .[id number] PRN Additional IVPB Infusion Insulin Glargine 10 unit 02/04/25 22:00 02/04/25 22:41 Insulin Glargine-Yfgn 100 Unit/Ml Pen SC 10 unit QHS PATIENCE Administration Insulin Human Lispro 0 unit 02/05/25 06:45 02/05/25 09:57 Insulin Lispro 100 Unit/Ml Insuln.Pen SC 2 u TIDAC PATIENCE Administration Protocol Losartan Potassium 50 mg 02/05/25 10:00 02/05/25 09:58 Losartan Potassium 50 Mg Tablet PO 50 mg DAILY PATIENCE Administration Protocol Magnesium Citrate 150 ml 02/04/25 19:01 Magnesium Citrate 300 Ml PO X1 PRN Constipation Metformin HCl 1,000 mg 02/05/25 08:00 02/05/25 09:58 Metformin Hcl 1,000 Mg Tablet PO 1,000 mg BIDCM PATIENCE Administration Pantoprazole Sodium 40 mg 02/05/25 10:00 02/05/25 09:59 Pantoprazole Sodium 40 Mg Tablet PO 40 mg DAILY PATIENCE Administration Senna/Docusate Sodium 1 tablet 02/04/25 22:00 02/05/25 09:59 Senna/Docusate Sodium 1 Tablet PO 1 tablet BID PATIENCE Administration Sodium Chloride 10 - 40 ml 02/04/25 18:37 0.9% Saline Lock 10 Ml Syringe IV UD PRN SALINE FLUSH Thiamine HCl 100 mg 02/04/25 22:00 02/05/25 06:53 Thiamine Hydrochloride 100 Mg Tablet PO 100 mg TID PATIENCE Administration Tuberculin PPD 0.1 ml 02/12/25 10:00 Tuberculin,Purif.Prot.Deriv. 50 Tu/Ml Vial ID 02/12/25 10:01 X1 ONE Problem List Edema (Acute) GERD (gastroesophageal reflux disease) (Acute) Hyperlipidemia, unspecified (Acute) Primary hypertension (Acute) Type 2 diabetes mellitus with hyperglycemia (Acute) Thyroid mass (Acute) Functional dysphagia (Acute) Debility (Acute) Stroke/cerebrovascular accident (Acute) Stenosis of right carotid artery (Acute) Vital Signs Temp Pulse Resp BP Pulse Ox O2 Del Method 97.4 F L 89 16 133/42 H 96 Room Air 02/05/25 10:54 02/05/25 10:54 02/05/25 10:54 02/05/25 10:54 02/05/25 10:54 02/05/25 10:54 Oxygen Delivery Method Room Air Weight: 69.853 kg Body Mass Index (BMI) 34.5 Sodium 132 mmol/L (133-145) L 02/05/25 06:48 Potassium 4.2 mmol/L (3.3-5.1) 02/05/25 06:48 Chloride 100 mmol/L (98-108) 02/05/25 06:48 Carbon Dioxide 21.5 mmol/L (21.0-32.0) 02/05/25 06:48 Anion Gap 11 (5-15) 02/05/25 06:48 BUN 16 mg/dL (4-19) 02/05/25 06:48 Creatinine 0.90 mg/dL (0.70-1.20) 02/05/25 06:48 Est GFR (MDRD) Non-Af 62 (>60) 02/05/25 06:48 BUN/Creatinine Ratio 17.5 RATIO (10-20) 02/05/25 06:48 Glucose 170 mg/dL (70-99) H 02/05/25 06:48 Assessment/Plan: 1. Pain: acetaminophen 1000mg PO Q6H PRN pain 1-10. Resident has not received any prn pain doses since admission. Monitor pain scores before/after prn administration for response, PRN pain medication usage, symptoms of pain/resident distress and ability to participate in therapy. 2. Bowel: senna/docusate 1T PO BID and magnesium citrate 150mL PO x1 PRN constipation. Resident has not received any prn doses since admission. Last document bowel movement: 02/05/25. Monitor for usage of prn medications, abdominal pain, frequency of bowel movements, diarrhea. Recommend holding bowel regimen if resident develops diarrhea. 3. Hypertension: losartan 50mg PO daily and amlodipine 5mg PO daily. Please continue to monitor BP (range 128/44 - 142/52), renal function, swelling, potassium (last 4.2mmol/L). 4. Stroke: aspirin 81mg PO daily and clopidogrel 75mg PO daily. Please continue to monitor hemoglobin (last 6.9g/dL, Resident receiving blood today), S/S of bleeding/bruising. 5. Hyperlipidemia: atorvastatin 40mg PO QHS. Please continue to monitor lipid panel (last 09/01/24), LFTs (last 01/10/25) and muscle pain. 6. Edema: furosemide 20mg PO daily. Please continue to monitor for S/S of edema, weight gain, renal function and potassium (last 4.2mmol/L). 7. Diabetes mellitus II: metformin 1000mg PO BIDCM, insulin glargine 10units SC QHS and insulin lispro sliding scale SC ACHS (added this morning, 2 units given so far). Please consider ordering a hemoglobin A1c as the last was 7.7% from 10/01/24, if clinically appropriate. Thanks. Please continue to monitor renal function (eGFR 62mL/min), S/S of hypoglycemia, glucose (last 170mg/dL), diarrhea. 8. GERD: pantoprazole 40mg PO daily. Monitor for diarrhea (consider possibility of C. diff if develops). Consider serum magnesium level and B12 level with long-term use if indicated. If clinically appropriate, consider dose reduction/weaning of medication due to long term care pharmacist risks of C. diff and fractures (Beers). 9. Thiamine deficiency: thiamine 100mg PO TID. Please continue to monitor. Assessment/Plan for indications treated with psychotropic medications: Resident is not prescribed scheduled or prn psychotropic medications at the time of this drug regimen review. Medical chart and medication regimen reviewed. The following medication irregularities or issues were identified: 1. Metformin 1000mg PO BIDCM, insulin glargine 10units SC QHS and insulin lispro sliding scale SC ACHS (added this morning, 2 units given so far). Please consider ordering a hemoglobin A1c as the last was 7.7% from 10/01/24, if clinically appropriate. Thanks. Date Date of Note: 02/05/25 Documented by User: Dr. Delmar Dunbar MD 02/06/25 08:28 TCU RX Drug Regimen Review Provider Comments Provider responsibility Provider Comments to 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s by Pharmacy Agree
--- NOTE | 2025-02-05 14:08 | NURSING ---
late entry: pt left unit at 1040 to PCU via bed for Blood TX
--- NOTE | 2025-02-05 17:07 | NURSING ---
pt back to unit
[2025-02-05] MEDS: Tuberculin,Purif.prot.deriv. 50 TU/ML Vial 0.1 ML ID (18:06)
[2025-02-05] MEDS: Insulin Glargine-YFGN 100 UNIT/ML Pen 10 UNIT SC (22:30)
[2025-02-06] MEDS: Thiamine Hydrochloride 100 MG Tablet PO ×3 (06:02→21:28)
[2025-02-06 07:03] VITALS: PULSE 97; RESP 16; O2SAT 97
[2025-02-06] MEDS: Senna/Docusate Sodium 1 Tablet PO (09:05)
[2025-02-06] MEDS: 0.9% Saline Lock 10 ML Syringe IV ×2 (09:06→21:29)
[2025-02-06 10:00] VITALS: BMI 31.3
[2025-02-06 17:24] LABS: Hematocrit 34.6 % (37-47); Hemoglobin 11.4 g/dL (12.0-15.0)
[2025-02-06] MEDS: Insulin Glargine-YFGN 100 UNIT/ML Pen 10 UNIT SC (21:28)
--- NOTE | 2025-02-07 00:17 | NURSING ---
Written communication left for Dr. Dunbar regarding positive occult stool sample.
[2025-02-07] MEDS: Thiamine Hydrochloride 100 MG Tablet PO ×3 (06:21→21:28)
[2025-02-07 08:45] LABS: Hematocrit 32.4 % (37-47); Hemoglobin 10.9 g/dL (12.0-15.0)
[2025-02-07 10:00] VITALS: PULSE 90; RESP 18; O2SAT 97; BMI 31.5
--- NOTE | 2025-02-07 12:31 | NURSING ---
Auto Damage Estimator Note: Activity Asset Complete Chelsea prefers to be called Devyn. She is independent in her Choice of daily activities. She has her smartphone and family visits. Devyn prefers in room activities over group, welcomes the army ranger and therapy dog when available. Her mormon will visits as well. Staff will remind her of weekly activities and respect her right to say no.
--- NOTE | 2025-02-07 13:31 | MDS.RN ---
MDS entry tracker complete, assessed pain.
--- NOTE | 2025-02-07 15:44 | CHAPLAIN ---
Type of Pastoral Visit ___ Initial Visit ___ Follow-up Visit ___ On-call Visit ___ General Patient Visit ___ Spiritual Assessment ___ Family Conference ___ Bereavement ___ Rapid Response ___ Code Blue ___ Other (describe below) Pastoral Care Referral From ___ Patient ___ Family ___ Nurse ___ Physician ___ Nozzle Tender ___ Chlorine Cells Operator ___ Other (describe below) Sacrament/Intervention ___ Active listening ___ Anointing ___ Mormonism ___ Bereavement ___ Communion ___ Na exploration ___ ___ Life review ___ Prayer ___ Reconciliation ___ Sacrament of Sick ___ Supportive presence ___ Wedding ___ Other (describe below) Pastoral Comments patient was having therapy at time of attempted visit
[2025-02-07 16:00] VITALS: BP 118/60; PULSE 90; RESP 16; TEMP 36.8; O2SAT 98
--- NOTE | 2025-02-07 16:24 | CASEMGMT ---
Social Work SW met with patient to complete initial assessment. Introduced self and role. SW worked with pt's at two prior stays. Verified contacts. Confirmed DNR-CCA, no intubation for code status. Educated to [facility] insurance with NRD 02/08 and continued stay is not guaranteed with each review. Pt's goal is to return home at [facility] with and dock boss. Family assist as well. SW will continue to follow for DC planning. Philly Morrell NURSING INSTRUCTOR BLOOD BANK CUSTODIAN
--- NOTE | 2025-02-07 17:56 | EX.PCM.CON.G ---
HPI Consult Data Date of Consult: 02/07/25 HPI Narrative Reason for Consultation: Anemia HPI Narrative: BLAYNE MOODY, is a 84 F who originally presented with worse esophageal dysphagia to liquids and solids. 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 Over the past few months she has had difficulty tolerating p.o. Patient states that its to the point where she can no longer take her pills without vomiting. States that she is scheduled to see GI for a EGD in January but feels that she is not able to keep any food or drink down and that is why she is here today. She is reporting that she is very fatigued. Denies fever, chills, chest pain, shortness of breath, abdominal pain. 01/10/25 10:22: WBC 12.4 H, RBC 3.25 L, Hgb 9.2 L, She underwent an endoscopy. Her hemoglobin has gone down to 6.6. She was transfused 3 units of packed red blood cells and hemoglobin went up to 11.2 and is down to 10.9 today. [facility] Medical History Gagging episode History of common carotid artery stent placement Hyponatremia Muscle weakness Primary hypertension Hallucination Loss of appetite Wears glasses Wears dentures Bruising Insulin dependent diabetes mellitus High cholesterol Stroke/cerebrovascular accident History of echocardiogram History of edema CVA (cerebral vascular accident) Diabetes mellitus, type 2 Obesity (BMI 30-39.9) GERD (gastroesophageal reflux disease) Hypertension Diabetes Home Medications ?Medication ?Instructions ?Recorded ?Last Taken ?Type aspirin 81 mg chewable tablet 81 mg PO BREAKFAST SUPPLEMENT #0 09/03/24 01/07/25 Rx tabs atorvastatin 40 mg tablet 40 mg PO QHS CHOLESTEROL #30 tabs 09/03/24 01/07/25 Rx clopidogrel 75 mg tablet 75 mg PO DAILY BLOOD THINNER #30 09/03/24 01/07/25 Rx tabs insulin glargine 100 unit/mL (3 10 unit (0.1 mL) subcut QHS 09/03/24 01/04/25 Rx mL) subcutaneous pen (Lantus DIABETES #15 mL Solostar U-100 Insulin) amlodipine 5 mg tablet 5 mg PO DAILY blood pressure 10/22/24 01/07/25 History omeprazole 40 mg capsule,delayed 40 mg PO DAILY GERD 10/22/24 01/07/25 History release losartan 50 mg tablet 50 mg PO DAILY Blood pressure 30 10/24/24 01/07/25 Rx days #30 tabs furosemide 20 mg tablet 20 mg PO DAILY Diuretic 01/10/25 Unknown History metformin 500 mg tablet 250 mg PO BID DIABETES 01/10/25 01/07/25 History potassium chloride 20 mEq 20 meq PO BIDCM #30 tabs 01/11/25 Unknown Rx tablet,extended release(part/cryst) docosahexaenoic acid (dha)-epa 1 cap PO QDAY 01/14/25 Unknown History capsule metformin 1,000 mg tablet 1,000 mg PO BID Diabetes 02/04/25 Unknown History thiamine HCl (vitamin B1) 100 mg 100 mg PO TID Supplement 02/04/25 Unknown History tablet Allergy/AdvReac Type Severity Reaction Status Date / Time No Known Allergies Allergy Verified 01/10/25 09:08 Family History Mother Hypertension Father Diabetes Daughter TIA (transient ischemic attack) Son CVA (cerebral vascular accident) Diabetes Obesity Son Diabetes Son Hypertension Son Hypertension TIA (transient ischemic attack) Son Hypertension Uncle Diabetes Surgical History History of total abdominal hysterectomy H/O carotid endarterectomy History of cholecystectomy Social History household members: family and other details: Lives with daughter. Smoking Status: Never smoker alcohol intake: current substance use type: does not use ROS Constitutional Constitutional: Reports weakness; Denies chills, fever(s) or weight gain ENT HEENT: Denies headache(s), nasal congestion or nasal discharge Cardiovascular Cardiovascular: Denies chest pain or palpitations Respiratory/Chest Respiratory/Chest: Denies cough, excessive phlegm production or shortness of breath with exertion Gastrointestinal Gastrointestinal: Denies abdominal pain, nausea or vomiting Genitourinary Genitourinary: Denies dysuria Musculoskeletal Musculoskeletal: Denies joint pain or joint swelling Integumentary Integumentary: Denies rash or wounds Neurologic Neurologic: Denies focal weakness, numbness or tingling Psychiatric Psychiatric: Denies anxiety, auditory hallucinations, depression, homicidal ideation or suicidal ideation Physical Exam Const alert, oriented x3, no apparent distress and healthy appearing General Appearance: cooperative GI normal to inspection, nondistended, normoactive bowel sounds, soft to palpation, non-tender and non-distended Percussion: normal to percussion Rectal Exam: deferred Medical Records Data Medical Nutrition Assessment Dietitian: Malnutrition Criteria Met Start: 02/05/25 13:13 Freq: Status: Active Protocol: Document 02/05/25 13:13 SB (Rec: 02/05/25 13:13 SB [id number]) Nutrition Malnutrition Evidence of Yes Malnutrition Exists Malnutrition (severe Chronic ): Evidenced By Suboptimal Energy Intake (Severe),Weight Loss (Severe) Clinical Problem Chronic Disease or Condition Related Malnutrition Etiology severe protein-calorie malnutrition related to inadequate oral intake Signs/Symptoms as evidenced by 13% unintentional weight loss x 5 months and PO meeting <75% of estimated nutrition needs x 6 months. Status Active Problem 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 Dietitian Continue liberal regular diet due to signs and symptoms 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s/ of malnutrition. Changes Will order vanilla magic cup with dinner. Will make adjustments to ONS as needed. Lab / Micro Data 02/07/25 08:28 02/05/25 06:48 Labs: Laboratory Results - last 24 hr 02/05/25 17:15: Hemoglobin A1c 6.6 H 02/06/25 21:24: POC Glucose 166 H 02/07/25 08:28: Hgb 10.9 L, Hct 32.4 L 02/07/25 11:08: POC Glucose 190 H 02/07/25 16:47: POC Glucose 194 H Micro: Microbiology 02/06/25 11:15 Stool Stool Occult Blood (SLIM) - Final Occult Blood Positive Assessment & Plan Assessment/Plan (1) Anemia: PLAN: 84-year-old with history of CVA and thyroid mass status post thyroidectomy currently on aspirin and Plavix because history of CAD. She currently has worsening anemia. She will need to undergo upper endoscopy with push enteroscopy. If this study is negative then she will need a colonoscopy plus minus capsule endoscopy. Charges/Coding Visit Charges Inpatient E&M: 51336 SNF Init L2
--- NOTE | 2025-02-07 20:49 | NURSING ---
Spoke with Dr. Dunbar via telephone regarding clarification for HS Glargine dose as pt is scheduled to have an EGD tomorrow 02/08/25. Updated Dr. Dunbar on pt's blood sugar trends. Current blood sugar 193. New order to give 5 units of Glargine x1 @ HS tonight 02/07/[address] Dunbar. Order verified via telephone readback.
[2025-02-07] MEDS: 0.9% Saline Lock 10 ML Syringe IV (21:28)
[2025-02-07] MEDS: Insulin Glargine-YFGN 100 UNIT/ML Pen SC (21:28)
--- NOTE | 2025-02-07 23:48 | NURSING ---
When this nurse entered pt room to administer HS medications at 2129 on 02/07/25, pt asked this nurse Is there anything you can do to help me empty my bladder? I have been going to the bathroom all day but only little spurts of urine have been coming out. I feel like my bladder is full but I can't pee. Pt denies dysuria. Bladder scan resulted in 502 mL. Straight cath performed per protocol at 2144 on 02/07/25 utilizing sterile technique. 500 mL of clear, yellow urine drained from bladder. Pt tolerated procedure well. Pt reports feeling much better after straight cath. Educated pt to alert staff if she continues to have difficulty voiding. Bed linens changed. Repositioned pt for comfort. Pt denies needs for further assistance. Call light within reach.
--- NOTE | 2025-02-08 07:03 | NURSING ---
During 0600 rounds, pt reported to this nurse that she was having difficulty emptying her bladder. Pt states she feels she is voiding in small amounts. Pt denies dysuria. Bladder scan resulted 582 mL. Straight cath performed utilizing sterile technique per protocol. 575 mL of clear, yellow urine drained from bladder. Pt tolerated procedure well. Denies needs for further assistance. Call light within reach. Pt requesting order for Flomax. Written communication left for Dr. Dunbar regarding straight cath x2 and pt request for Flomax.
[2025-02-08 10:00] VITALS: BMI 30.7
[2025-02-08 10:29] VITALS: BP 150/51; PULSE 86; RESP 15; TEMP 37.2; O2SAT 95
[2025-02-08 13:35] VITALS: BP 150/49; PULSE 96; RESP 17; TEMP 36.7; O2SAT 98; BMI 31.4
--- NOTE | 2025-02-08 14:50 | CHAPLAIN ---
Type of Pastoral Visit _x__ Initial Visit ___ Follow-up Visit ___ On-call Visit ___ General Patient Visit ___ Spiritual Assessment ___ Family Conference ___ Bereavement ___ Rapid Response ___ Code Blue ___ Other (describe below) Pastoral Care Referral From _x__ Patient ___ Family ___ Nurse ___ Physician ___ Motor Equipment Captain ___ Branch Credit Counselor ___ Other (describe below) Sacrament/Intervention _x__ Active listening ___ Anointing ___ Druze ___ Bereavement ___ Communion _x__ Na exploration ___ _x__ Life review _x__ Prayer ___ Reconciliation ___ Sacrament of Sick _x__ Supportive presence ___ Wedding ___ Other (describe below) Pastoral Comments patient and daughter are in the room and talking about frustrations of 'not knowing what is going on' and 'having had a mishap with scheduling for a procedure today'; talked about how to accept disappointments and validated feelings; daughter gives a overview about the last two weeks of illness and hospital admissions; during visit the RN came to inform that procedure is now scheduled for soon; patient and daughter relieved and emotions change; 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
[2025-02-08] MEDS: Thiamine Hydrochloride 100 MG Tablet PO (20:45)
[2025-02-08] MEDS: Insulin Glargine-YFGN 100 UNIT/ML Pen 10 UNIT SC (20:50)
[2025-02-09 01:30] VITALS: PULSE 91; RESP 16; O2SAT 95
[2025-02-09] MEDS: Thiamine Hydrochloride 100 MG Tablet PO ×3 (05:47→21:22)
[2025-02-09] MEDS: 0.9% Saline Lock 10 ML Syringe IV ×2 (05:48→17:26)
[2025-02-09 08:22] VITALS: BP 163/64; PULSE 92; RESP 16; TEMP 36.7; O2SAT 97
--- NOTE | 2025-02-09 09:03 | CASEMGMT ---
Addendum entered by Philly Morrell 02/09/25 09:23: Updated pt/dtr that O approved with [employer] 02/15. Original Note: Social Work IDT met with patient and dtr for care plan meeting. Discussed patient's progress in PT/OT/ST/SN/RDN. Educated to [facility] insurance with [employer] 02/08 and continued stay is not guaranteed with each review. Provided pt/family with written communication of insurance process and copay coverage during stay. 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 Family supportive as well. Dtr asked several questions and had several comments medically. RN Referred to Dr. Dunbar and Dr. Shell. SW will continue to follow for DC planning. Philly Morrell INTERNATIONAL REPRESENTATIVE ONLINE ACTIVIST
[2025-02-09 10:00] VITALS: BMI 31.4
[2025-02-09 10:00] LABS: Hematocrit 31.7 % (37-47); Hemoglobin 10.3 g/dL (12.0-15.0)
[2025-02-09] MEDS: Senna/Docusate Sodium 1 Tablet PO (21:21)
[2025-02-09] MEDS: Insulin Glargine-YFGN 100 UNIT/ML Pen 10 UNIT SC (21:24)
[2025-02-10] MEDS: 0.9% Saline Lock 10 ML Syringe IV ×2 (05:48→21:23)
[2025-02-10] MEDS: Thiamine Hydrochloride 100 MG Tablet PO ×3 (05:49→21:16)
[2025-02-10 09:00] VITALS: BP 168/50; PULSE 96; RESP 18; TEMP 36.6; O2SAT 99
[2025-02-10 10:00] VITALS: BMI 31.3
--- NOTE | 2025-02-10 14:55 | CASEMGMT ---
Social Work SW completed BIMS () and PHQ-9 (08/19) for MDS assessment. Philly Morrell BAG MACHINE ADJUSTER TURNAROUND ENGINEER
[2025-02-10] MEDS: Insulin Glargine-YFGN 100 UNIT/ML Pen 10 UNIT SC (21:14)
[2025-02-11] MEDS: Thiamine Hydrochloride 100 MG Tablet PO ×3 (05:46→22:49)
[2025-02-11 08:05] LABS: Hematocrit 34.5 % (37-47); Hemoglobin 11.0 g/dL (12.0-15.0); Immature Granulocytes Count 0.110 X10^3/uL (0.0-0.0); Mean Corp Hgb Conc 31.9 g/dL (32-36); Mean Corpuscular Volume 89.6 fL (81-99); Mean Platelet Vol. 9.9 fl (6.2-12.0); NRBC Flagged by Analyzer 0 % (0-5); Platelet Count 647 K/mm3 (150-450); RBC Distribution Width CV 16.2 % (11.6-14.6); RBC Distribution Width SD 53.2 fl (35.1-43.9); Red Blood Count 3.85 M/mm3 (4.2-5.4); White Blood Count 10.4 K/mm3 (4.4-11.0)
--- NOTE | 2025-02-11 08:49 | NURSING ---
Post Doctoral Fellow Note; MDS for 02/11/2025 Complete
[2025-02-11 09:24] VITALS: BP 120/45; PULSE 124; RESP 18; TEMP 36.3; O2SAT 96
[2025-02-11] MEDS: 0.9% Saline Lock 10 ML Syringe IV (09:25)
[2025-02-11 09:42] LABS: Anion Gap 16 (5-15); BUN 21 mg/dL (4-19); BUN/Creat Ratio 22.3 RATIO (10-20); Calcium,Total 9.7 mg/dL (7.6-11.0); Carbon Dioxide 19.2 mmol/L (21.0-32.0); Chloride 98 mmol/L (98-108); Estimated Creatinine Clearance 37.14 ml/min (50-250); Glucose 148 mg/dL (70-99); Potassium 4.7 mmol/L (3.3-5.1)
[2025-02-11 10:00] VITALS: BMI 31.2
[2025-02-11 11:28] VITALS: PULSE 90
[2025-02-11 22:00] VITALS: PULSE 94; RESP 16; O2SAT 98
[2025-02-11] MEDS: Insulin Glargine-YFGN 100 UNIT/ML Pen 10 UNIT SC (22:48)
[2025-02-11] MEDS: Senna/Docusate Sodium 1 Tablet PO (22:49)
[2025-02-12] MEDS: Thiamine Hydrochloride 100 MG Tablet PO ×3 (05:12→22:16)
[2025-02-12 05:16] VITALS: PULSE 96; RESP 18; O2SAT 99
[2025-02-12] MEDS: Tuberculin,Purif.prot.deriv. 50 TU/ML Vial 0.1 ML ID (08:39)
[2025-02-12] MEDS: 0.9% Saline Lock 10 ML Syringe IV (08:45)
[2025-02-12 08:54] VITALS: BP 128/48; PULSE 95; RESP 18; TEMP 36.3; O2SAT 96
[2025-02-12 10:00] VITALS: BMI 31.3
[2025-02-12] MEDS: Insulin Glargine-YFGN 100 UNIT/ML Pen 10 UNIT SC (22:16)
[2025-02-12] MEDS: Senna/Docusate Sodium 1 Tablet PO (22:16)
[2025-02-13] MEDS: Thiamine Hydrochloride 100 MG Tablet PO ×3 (05:04→20:43)
[2025-02-13 08:04] VITALS: BP 116/54; PULSE 100; RESP 18; TEMP 36.3; O2SAT 94
[2025-02-13 10:00] VITALS: BMI 31.4
[2025-02-13] MEDS: 0.9% Saline Lock 10 ML Syringe IV ×2 (13:09→20:57)
[2025-02-13] MEDS: Insulin Glargine-YFGN 100 UNIT/ML Pen 10 UNIT SC (20:42)
[2025-02-13 20:48] VITALS: PULSE 95; RESP 16; O2SAT 99
[2025-02-14 02:21] VITALS: PULSE 94; RESP 16; O2SAT 99
[2025-02-14] MEDS: Thiamine Hydrochloride 100 MG Tablet PO ×3 (04:59→20:27)
[2025-02-14 08:13] VITALS: BP 134/54; PULSE 102
[2025-02-14 13:28] VITALS: BMI 31.5
[2025-02-14 15:00] VITALS: BP 128/47; PULSE 87; RESP 18; TEMP 36.4; O2SAT 99
[2025-02-14] MEDS: Insulin Glargine-YFGN 100 UNIT/ML Pen 10 UNIT SC (20:29)
[2025-02-14] MEDS: 0.9% Saline Lock 10 ML Syringe IV (20:33)
[2025-02-15] MEDS: Thiamine Hydrochloride 100 MG Tablet PO ×3 (05:12→21:54)
[2025-02-15 09:29] VITALS: BP 138/53; PULSE 93; RESP 18; TEMP 36.9; O2SAT 95
[2025-02-15 10:00] VITALS: BMI 31.2
--- NOTE | 2025-02-15 10:32 | CASEMGMT ---
Social Work SW received call from [facility] in [place], requesting clinicals for pt, stating dtr has coordinated for pt and move in to their [place]. SW to speak with pt/dtr to confirm, but agreed to send clinicals. - SW spoke with pt at bedside. SW inquired if family has discussed DC plans for pt. Pt stated her and her are going to [place] in [place]. SW confirmed this worker spoke with AL and wanted to ensure pt was aware and agreeable. Pt agreed. - YG phoned dtr to inquire as well. Dtr confirmed pt and are moving into [facility]; room is secured and pt can DC once insurance issues LCD. - YG faxed requested paperwork to [facility]. - YG will continue to follow. Philly Morrell MSW [employer]
[2025-02-15 13:30] VITALS: PULSE 93; RESP 18; O2SAT 95
[2025-02-15] MEDS: 0.9% Saline Lock 10 ML Syringe IV ×2 (13:33→21:58)
[2025-02-15] MEDS: Insulin Glargine-YFGN 100 UNIT/ML Pen 10 UNIT SC (21:53)
[2025-02-16] MEDS: Thiamine Hydrochloride 100 MG Tablet PO ×3 (05:25→22:40)
[2025-02-16 08:39] VITALS: BP 145/51; PULSE 92; RESP 18; TEMP 36.3; O2SAT 98
[2025-02-16 10:00] VITALS: PULSE 92; RESP 18; O2SAT 98
--- NOTE | 2025-02-16 11:35 | MDS.RN ---
Information for the MDS was obtained from review of the clinical record, interview of resident, staff, and direct observation of resident?s care.
[2025-02-16] MEDS: 0.9% Saline Lock 10 ML Syringe IV ×2 (13:55→22:45)
[2025-02-16] MEDS: Insulin Glargine-YFGN 100 UNIT/ML Pen 10 UNIT SC (22:37)
[2025-02-17] MEDS: Thiamine Hydrochloride 100 MG Tablet PO ×2 (05:48→14:28)
[2025-02-17 07:30] VITALS: BMI 31.0
[2025-02-17 07:44] VITALS: PULSE 90; RESP 17; O2SAT 97
--- NOTE | 2025-02-17 07:52 | PCM.DC.SUM ---
Providers Date of Admission: 02/04/25 Primary Care Physician: Dr. Divya Hinojosa MD Consultations 02/07/25 07:27 Consult: Gastroenterology Routine Consulting Provider: [facility] Reason for Consult: Anemia, +Hemoccult. EMERGENT Consult: No MD Notified: No Date Notified: 02/07/25 Time Notified: 07:27 Reason For Visit: FTT, N/V, WT LOSS Diagnosis Discharge Diagnosis (1) Anemia: Status: Acute Code(s): D64.9 - Anemia, unspecified Plan 84 year old female with below past medical history hospitalized for dysphagia, complicated by refeeding syndrome, right thyroid mass, admitted to TCU with debility, here for rehabilitation, strengthening, prior to discharge home with daughter. Debility - PT/OT. Dysphagia - ST. Pain - Tylenol 1000mg q6 prn pain (1-10). Bowel - senna/colace 1 tablet bid, Magnesium citrate 150mL po x 1 prn. Adult immunization - Administer pneumonia vaccine, covid vaccine, flu vaccine as appropriate. DVT prophylaxis - Hold, on dual antiplatelet therapy. Hypertension - Losartan 50mg daily, Amlodipine 5mg daily. Stroke - Aspirin 81mg daily, Plavix 75mg daily. Hyperlipidemia - Atorvastatin 40mg qhs. Edema - Lasix 20mg daily. Diabetes Mellitus II - Metformin 1000mg bidcm, Glargine 10 units qhs. GERD - Pantoprazole 40mg daily. Thiamine deficiency - Thiamine 100mg tid. Anemia - Hemoglobin 6.9, transfused 2 units PRBC, Post transfusion hemoglobin 11.4, +Hemoccult, consult Dr. Shell. Medications at Discharge Home Medications aspirin 81 mg chewable tablet 81 mg PO BREAKFAST SUPPLEMENT #0 tabs 09/03/24 atorvastatin 40 mg tablet 40 mg PO QHS CHOLESTEROL #30 tabs 09/03/24 clopidogrel 75 mg tablet 75 mg PO DAILY BLOOD THINNER #30 tabs 09/03/24 insulin glargine 100 unit/mL (3 mL) subcutaneous pen (Lantus Solostar U-100 Insulin) 10 unit (0.1 mL) subcut QHS DIABETES #15 mL 09/03/24 amlodipine 5 mg tablet 5 mg PO DAILY blood pressure 10/22/24 losartan 50 mg tablet 50 mg PO DAILY Blood pressure 30 days #30 tabs 10/24/24 furosemide 20 mg tablet 20 mg PO DAILY PRN weight monitoring 01/10/25 metformin 1,000 mg tablet 1,000 mg PO BID Diabetes 02/04/25 tamsulosin 0.4 mg capsule 0.4 mg PO DAILY 02/08/25 pantoprazole 40 mg tablet,delayed release 40 mg PO DAILY 30 days #30 tabs 02/17/25 tamsulosin 0.4 mg capsule 0.4 mg PO DAILY@1730 30 days #30 caps 02/17/25 Hospital Course Operations None Procedures EGD Summary of Care Provided Minutes Spent on Discharge: 35 Hospital Course: 84 year old female with below past medical history hospitalized for dysphagia, complicated by refeeding syndrome, right thyroid mass, admitted to TCU with debility, here for rehabilitation, strengthening, prior to discharge home with daughter. 02/08/2025 Dr. Shell EGD: Impression: - Normal esophagus. - Two non-bleeding angiodysplastic lesions in the stomach. Treated with a heater probe. - No gross lesions in the entire examined duodenum. - No specimens collected. Discharge home with daughter 02/17/2025, then [facility] with , [facility] PT/OT. Physical Exam Const alert General Appearance: cooperative HEENT normocephalic Eyes PERRL and EOMs intact bilaterally Neck supple, no JVD and no carotid bruits Resp normal respiratory effort, normal air movement and clear to auscultation bilaterally Cardio regular rate and regular rhythm GI normal to inspection, nondistended, normoactive bowel sounds, non-tender and non-distended Extremity normal capillary refill General Extremity: Negative for edema Skin no rashes or lesions noted General Skin Exam: no breakdown Psych affect normal Appearance: appropriate Medical Records Data Medical Nutrition Assessment Dietitian: Malnutrition Criteria Met Start: 02/05/25 13:13 Freq: Status: Active Protocol: Document 02/05/25 13:13 SB (Rec: 02/05/25 13:13 SB [id number]) Nutrition Malnutrition Evidence of Yes Malnutrition Exists Malnutrition (severe Chronic ): Evidenced By Suboptimal Energy Intake (Severe),Weight Loss (Severe) Clinical Problem Chronic Disease or Condition Related Malnutrition Etiology severe protein-calorie malnutrition related to inadequate oral intake Signs/Symptoms as evidenced by 13% unintentional weight loss x 5 months and PO meeting <75% of estimated nutrition needs x 6 months. Status Active Problem 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 Dietitian Continue liberal regular diet due to signs and symptoms 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s/ of malnutrition. Changes Will order vanilla magic cup with dinner. Will make adjustments to ONS as needed. Weight / BMI Weight Weight: 63.163 kg Body Mass Index (BMI) 31.2 ABG / Lab / Microbiology Data 02/11/25 07:02 02/11/25 07:02 Laboratory: Laboratory Results - last 24 hr 02/16/25 11:01: POC Glucose 254 H 02/16/25 16:04: POC Glucose 212 H 02/16/25 21:42: POC Glucose 157 H 02/17/25 06:12: POC Glucose 131 H Microbiology: Microbiology 02/06/25 11:15 Stool Stool Occult Blood (SLIM) - Final Occult Blood Positive D/C Instructions Discharge Activity: Return to Normal Activity, May Shower and Use Walker Weight Bearing Status: Weight bearing as tolerated Call your doctor if you observe: Fever of 101 or Higher, Inability to urinate, Inability to have a bowel movement, Shortness of breath, Dizziness, Fainting spells, Swelling in the ankles, Chest pain and Uncontrolled pain DC O2, CPAP, BIPAP Needs Home O2 Discharge instructions: No Additional Instructions: Discharge home with daughter 02/17/2025, then [facility] [place] with , [facility] PT/OT. Meaningful Use Info Meaningful Use Meaningful Use Diagnoses (Choose all that apply): None applicable Discharge Plan Admission Admit Date/Time: 02/04/25 18:28 Primary Reason for Your Visit: Debility. Attending Provider: Delmar Dunbar Chi Primary Care Provider: Divya Hinojosa Instructions Additional Instructions / Restrictions: Discharge home with daughter 02/17/2025, then [facility] with , [facility] PT/OT. Discharge Orders/Prescriptions Prescriptions: New tamsulosin 0.4 mg Capsule 0.4 mg PO DAILY@1730 30 Days Qty: 30 0RF pantoprazole 40 mg Tablet,Delayed Release (Dr/Ec) 40 mg PO DAILY 30 Days Qty: 30 0RF Continued amlodipine 5 mg tablet 5 mg PO DAILY atorvastatin 40 mg Tablet 40 mg PO QHS Qty: 30 1RF aspirin 81 mg Tablet,Chewable 81 mg PO BREAKFAST Qty: 0 0RF clopidogrel 75 mg Tablet 75 mg PO DAILY Qty: 30 1RF insulin glargine [Lantus Solostar U-100 Insulin] 100 unit/mL (3 mL) insulin pen 10 unit subcut QHS Qty: 15 0RF losartan 50 mg Tablet 50 mg PO DAILY 30 Days Qty: 30 2RF furosemide 20 mg tablet 20 mg PO DAILY PRN (Reason: weight monitoring) Rx Instructions: Take one pill a day if the weight is increased by 3 pounds in one day metformin 1,000 mg tablet 1,000 mg PO BID Discontinued metformin 500 mg tablet 1,000 mg PO BID Rx Instructions: Continue for now but if you redevelop any nausea or dry heaves would recommend holding thiamine HCl (vitamin B1) 100 mg tablet 100 mg PO TID pantoprazole 40 mg tablet,delayed release (DR/EC) 40 mg PO DAILY senna-docusate sodium Tablet 1 tab PO BID acetaminophen 500 mg capsule 1,000 mg PO Q6H PRN (Reason: pain) No Action tamsulosin 0.4 mg capsule 0.4 mg PO DAILY Referrals / Follow Up: Divya Hinojosa MD [Primary Care Provider, Internal Medicine] Disposition Disposition (needs filled in before D/C Order can be placed): Assisted Living
--- NOTE | 2025-02-17 08:06 | CASEMGMT ---
Social Work informed this worker that he spoke with pt and dtr and they are requesting pt DC home today. SW phoned dtr to discuss. Dtr stated pt's is not doing well without pt home, and the family wants pt to be home with him while they finalize moving belongings into AL. Then both admit to AL. SW consulted IDT and all in agreement to DC today. YG informed dtr that HHC cannot be coordinated at DC since pt will be changing locations, but AL can coordinate it once pt admits. Dtr expressed understanding. There no needs for DC. Dtr to transport pt home about 1700. Plan: DC home 02/17 with no needs Philly Morrell [employer]
[2025-02-17 16:47] VITALS: BP 147/75; PULSE 60; RESP 16; TEMP 36.9; O2SAT 93
== END 2025-02-17 16:40 | disposition home or self-care (01) | DRG 392 ==
PROVIDERS: Admitting Provider Family Medicine Geriatric Medicine; PCP Internal Medicine; Visit Provider Family Medicine Geriatric Medicine
DX: R13.19 Other dysphagia (principal); E44.1 Mild protein-calorie malnutrition; E51.9 Thiamine deficiency, unspecified; D62 Acute posthemorrhagic anemia; E11.65 Type 2 diabetes mellitus with hyperglycemia; E04.1 Nontoxic single thyroid nodule; I10 Essential (primary) hypertension; E78.00 Pure hypercholesterolemia, unspecified; E87.8 Other disorders of electrolyte and fluid balance, not elsewhere classified; Z79.4 Long term (current) use of insulin; K21.9 Gastro-esophageal reflux disease without esophagitis; I25.10 Atherosclerotic heart disease of native coronary artery without angina pectoris; K31.819 Angiodysplasia of stomach and duodenum without bleeding; F45.8 Other somatoform disorders; Z86.73 Personal history of transient ischemic attack (TIA), and cerebral infarction without residual deficits; Z79.84 Long term (current) use of oral hypoglycemic drugs; Z79.82 Long term (current) use of aspirin; Z79.02 Long term (current) use of antithrombotics/antiplatelets; Z79.899 Other long term (current) drug therapy; R33.9 Retention of urine, unspecified
CPT/HCPCS: 36415; 80048; 82274; 82962; 83036; 83540; 85014; 85018; 85025; 86644; 86850; 86900; 86901; 92526; 92610; 97110; 97162; 97166; 97530; 97535; 97802; P9016; A4216

== ENCOUNTER 2025-02-08 14:28 | Day surgery (SDC) | payer MEDICARE, SELFPAY ==
[2025-02-08] VITALS (8 sets, daily range): BP systolic 102–145; BP diastolic 34–53; PULSE 79–87; RESP 16; TEMP 36.3–37.2; O2SAT 95–98; BMI 31.3
[2025-02-08] MEDS: Lactated Ringers 1,000 ML 15 ML IV (14:56)
--- NOTE | 2025-02-08 14:57 | PRE.ANES_ITS ---
ASA Classification* ASA Classification ASA Classification: 3 and E Assessment & Plan Anesthesia* Anesthesia Assessment Anesthesia Assessment: Discussed sedation and/or anesthesia options, risks, benefits, and alternatives with patient/parents/legal guardian/POA. Questions invited. The patient/parents/legal guardian/POA seems to understand and agrees to proceed with anesthesia plan. Reviewed the physical assessment, medical history, allergy history and patient home medications list prior to surgery/procedure/anesthetic and documented any changes. Performed airway and anesthesia risk assessments. Anesthesia Type Anesthesia Type: MAC History Source History Obtained from:: Patient and Chart Anesthesia Focused Assessment* Temperature: 99 F Pulse Rate: 87 Blood Pressure: 145/50 Respiratory Rate: 16 Pulse Ox: 98 Oxygen Delivery Method: Room Air Airway Assessment Mouth opens: >3 cm Mallampati Score: II Teeth Condition: Dentures (upper and lower out) Neck Range of motion (ROM): Full ROM Labs Anesthesia Preop lab: CBC WBC 11.1 K/mm3 (4.4-11.0) H 02/05/25 06:48 5 RBC 2.37 M/mm3 (4.2-5.4) L 02/05/25 06:48 02/05/25 Hgb 10.9 g/dL (12.0-15.0) L 02/07/25 08:28 5 Hct 32.4 % (37-47) L 02/07/25 08:28 02/07/25 Plt Count 530 K/mm3 (150-450) H 02/05/25 06:48 02/05/25 CHEMISTRY Potassium 4.2 mmol/L (3.3-5.1) 02/05/25 06:48 02/05/25 Sodium 132 mmol/L (133-145) L 02/05/25 06:48 02/05/25 Magnesium 1.4 mg/dL (1.5-2.2) L 01/10/25 10:22 01/10/25 BUN 16 mg/dL (4-19) 02/05/25 06:48 02/05/25 Creatinine 0.90 mg/dL (0.70-1.20) 02/05/25 06:48 02/05/25 Glucose 170 mg/dL (70-99) H 02/05/25 06:48 02/05/25 POC Glucose 152 mg/dL (74-106) H 02/08/25 11:48 02/08/25 TSH 1.260 uIU/mL (0.300-4.200) 11/18/24 05:47 0611/17 COAG Pre-Assessment Diagnosis/Proposed Procedure Planned Operative Procedure(s): EGD with possible biospy Anesthesia History Anesthesia History - director of operations for therapy: Anesthesia History - director of operations for therapy Hx Hospitalization Yes: AT [facility] 09/23/24 11:46 Any Problems With Anesthesia No 09/23/24 11:46 Cholinesterase deficiency No 09/23/24 11:46 You/Your Family Experience No 09/23/24 11:46 fever (hyperthermia) with Relationship Recent Exposure to Contagious No 02/08/25 14:30 Disease Does patient have nerve No 09/23/24 11:46 stimulator Patient instructed to have device shut off --Does patient have Pacemaker No 02/08/25 14:30 or ICD? When Was Last Pacemaker Check QUESTION #4 FULL TEXT: You/Your Family Experience fever (hyperthermia) with Anesthesia Last Oral Intake Last Oral intake: Last Oral Intake NPO since 00:00 02/08/25 14:30 Meds taken in AM with sips of No 02/08/25 14:30 water? Meds patient instructed to take am of surgery PONV PONV - director of operations for therapy: PONV - director of operations for therapy Female HX of Motion Sickness HX of N/V After Surgery Non-Smoker Duration of Surgery greater than 60 minutes Number of Risk Factors PONV Score Height & Weight Height & Weight: Anesthesia: Height & Weight Height 4 ft 8 in 02/08/25 14:30 Respiratory Assessment Respiratory Assessment - director of operations for therapy: Respiratory Tract Infection Hx - director of operations for therapy Hx Respiratory Tract Infection No 09/23/24 11:46 STOP Sleep Apnea STOP Sleep Apnea - director of operations for therapy: STOP Sleep Apnea - director of operations for therapy Hx Hypertension Yes 02/05/25 09:30 Hx Sleep Apnea No 02/04/25 18:41 CPAP BIPAP Do you snore loudly (louder than talking or can be heard Do you often feel tired/ fatigued/ sleepy during daytime? Has anyone observed you stop breathing during sleep? STOP Results QUESTION #5 FULL TEXT : Do you snore loudly (louder than talking or can be heard through closed doors)? Tobacco Use History Tobacco Use History - director of operations for therapy: Tobacco Use History - director of operations for therapy Tobacco Use Smoking Status Never smoker 02/04/25 18:41 Hx Tobacco Use No 02/04/25 18:41 Years Smoking Packs Smoked per Day Smoking Cessation Date was within the last 15 years Hx Smoking Cessation Date Hx Smoking Cessation Counseling Hematologic Medial History Hematologic Hx - director of operations for therapy: Hematologic Medical Hx - documentation nurse Hx of Blood Transfusion Hx of Transfusion in last 3 Months Date of Last Transfusion (if within last 3 months) Ever experience any problems with transfusion(s)? Specify any problems Hx of Preganancy in last 3 Months Nurse Filling Out Transfusion & Questions: Date: Time: Patient unable to answer at this time (ie. confused, unrespo /Reproduction History /Reproductive History - director of operations for therapy: /Reproductive Hx- director of operations for therapy Hx Now Gestational Age (in weeks): EDC: Hx Hx Para Hx Section SAB No 09/23/24 11:46 Active Medications Active Medications: Current Medications Generic Name Dose Route Start Last Admin Trade Name Freq PRN Reason Stop Dose Admin Lactated Ringer's 1,000 mls @ 15 mls/hr 02/08/25 15:00 02/08/25 14:56 IV 15 mls/hr .Q48H PATIENCE Administration PFSH Medical History Gagging episode History of common carotid artery stent placement Hyponatremia Muscle weakness Primary hypertension Hallucination Loss of appetite Wears glasses Wears dentures Bruising Insulin dependent diabetes mellitus High cholesterol Stroke/cerebrovascular accident History of echocardiogram History of edema CVA (cerebral vascular accident) Diabetes mellitus, type 2 Obesity (BMI 30-39.9) GERD (gastroesophageal reflux disease) Hypertension Diabetes Home Medications ?Medication ?Instructions ?Recorded ?Last Taken ?Type aspirin 81 mg chewable tablet 81 mg PO BREAKFAST SUPPL EMENT #0 09/03/24 01/07/25 Rx tabs atorvastatin 40 mg tablet 40 mg PO QHS CHOLESTEROL #30 tabs 09/03/24 02/07/25 Rx clopidogrel 75 mg tablet 75 mg PO DAILY BLOOD THINNER #30 09/03/24 01/07/25 Rx tabs insulin glargine 100 unit/mL (3 10 unit (0.1 mL) subcu t QHS 09/03/24 01/04/25 Rx mL) subcutaneous pen (Lantus DIABETES #15 mL Solostar U-100 Insulin) amlodipine 5 mg tablet 5 mg PO DAILY blood pressure 10/22/24 02/08/25 History losartan 50 mg tablet 50 mg PO DAILY Blood pressur e 30 10/24/24 02/08/25 Rx days #30 tabs furosemide 20 mg tablet 20 mg PO DAILY PRN weight Unknown History monitoring metformin 500 mg tablet 1,000 mg PO BID DIABETES 01/07/25 History metformin 1,000 mg tablet 1,000 mg PO BID Diabetes 05/19 Unknown History thiamine HCl (vitamin B1) 100 mg 100 mg PO TID Supplem ent 02/04/25 Unknown History tablet acetaminophen 500 mg capsule 1,000 mg PO Q6H PRN pain 02/08/25 Unknown History pantoprazole 40 mg tablet,delayed 40 mg PO DAILY 02/0802/08/25 History release senna-docusate sodium tablet 1 tab PO BID 02/08/25 Unk nown History tamsulosin 0.4 mg capsule 0.4 mg PO DAILY 02/08/25 Unk nown History Allergy/AdvReac Type Severity Reaction Status Date / Time No Known Allergies Allergy Verified 01/10/25 09:08 Family History Mother Hypertension Father Diabetes Daughter TIA (transient ischemic attack) Son CVA (cerebral vascular accident) Diabetes Obesity Son Diabetes Son Hypertension Son Hypertension TIA (transient ischemic attack) Son Hypertension Uncle Diabetes Surgical History History of total abdominal hysterectomy H/O carotid endarterectomy History of cholecystectomy Social History household members: family and other details: Lives with daughter. Smoking Status: Never smoker alcohol intake: current substance use type: does not use Review of Systems (Anesthesia) ROS Narrative System reviewed and no additional complaints, except as documented.
--- NOTE | 2025-02-08 15:40 | PCM.HP.STD ---
[facility] - General General Date of Admission: 02/08/25 Date of Service: 02/08/25 Chief Complaint: Anemia HPI Narrative BLAYNE MOODY, is a 84 F who present for the evaluation of Anemia She originally presented with worse esophageal dysphagia to liquids and solids. 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 Over the past few months she has had difficulty tolerating p.o. Patient states that its to the point where she can no longer take her pills without vomiting. States that she is scheduled to see GI for a EGD in January but feels that she is not able to keep any food or drink down and that is why she is here today. She is reporting that she is very fatigued. Denies fever, chills, chest pain, shortness of breath, abdominal pain. 01/10/25 10:22: WBC 12.4 H, RBC 3.25 L, Hgb 9.2 L, She underwent an endoscopy. Her hemoglobin has gone down to 6.6. She was transfused 3 units of packed red blood cells and hemoglobin went up to 11.2 and is down to 10.9 today. [facility] Medical History Gagging episode History of common carotid artery stent placement Hyponatremia Muscle weakness Primary hypertension Hallucination Loss of appetite Wears glasses Wears dentures Bruising Insulin dependent diabetes mellitus High cholesterol Stroke/cerebrovascular accident History of echocardiogram History of edema CVA (cerebral vascular accident) Diabetes mellitus, type 2 Obesity (BMI 30-39.9) GERD (gastroesophageal reflux disease) Hypertension Diabetes Home Medications ?Medication ?Instructions ?Recorded ?Last Taken ?Type aspirin 81 mg chewable tablet 81 mg PO BREAKFAST SUPPLEMENT #0 09/03/24 01/07/25 Rx tabs atorvastatin 40 mg tablet 40 mg PO QHS CHOLESTEROL #30 tabs 09/03/24 02/07/25 Rx clopidogrel 75 mg tablet 75 mg PO DAILY BLOOD THINNER #30 09/03/24 01/07/25 Rx tabs insulin glargine 100 unit/mL (3 10 unit (0.1 mL) subcut QHS 09/03/24 01/04/25 Rx mL) subcutaneous pen (Lantus DIABETES #15 mL Solostar U-100 Insulin) amlodipine 5 mg tablet 5 mg PO DAILY blood pressure 10/22/24 02/08/25 History losartan 50 mg tablet 50 mg PO DAILY Blood pressure 30 10/24/24 02/08/25 Rx days #30 tabs furosemide 20 mg tablet 20 mg PO DAILY PRN weight 01/10/25 Unknown History monitoring metformin 500 mg tablet 1,000 mg PO BID DIABETES 01/10/25 01/07/25 History metformin 1,000 mg tablet 1,000 mg PO BID Diabetes 02/04/25 Unknown History thiamine HCl (vitamin B1) 100 mg 100 mg PO TID Supplement 02/04/25 Unknown History tablet acetaminophen 500 mg capsule 1,000 mg PO Q6H PRN pain 02/08/25 Unknown History pantoprazole 40 mg tablet,delayed 40 mg PO DAILY 02/08/25 02/08/25 History release senna-docusate sodium tablet 1 tab PO BID 02/08/25 Unknown History tamsulosin 0.4 mg capsule 0.4 mg PO DAILY 02/08/25 Unknown History Allergy/AdvReac Type Severity Reaction Status Date / Time No Known Allergies Allergy Verified 01/10/25 09:08 Family History Mother Hypertension Father Diabetes Daughter TIA (transient ischemic attack) Son CVA (cerebral vascular accident) Diabetes Obesity Son Diabetes Son Hypertension Son Hypertension TIA (transient ischemic attack) Son Hypertension Uncle Diabetes Surgical History History of total abdominal hysterectomy H/O carotid endarterectomy History of cholecystectomy Social History household members: family and other details: Lives with daughter. Smoking Status: Never smoker alcohol intake: current substance use type: does not use ROS Constitutional Constitutional: Denies fatigue, fever(s), poor appetite, weight gain or weight loss Gastrointestinal Gastrointestinal: Denies belching, bloating, change in bowel habits, change in stool character, chewing difficulty, coffee ground emesis, constipation, cramping, diarrhea, dyspepsia, dysphagia, early satiety, excessive flatus, fecal incontinence, heartburn, hematemesis, hematochezia, hemorrhoids, loose stools, melena, nausea, odynophagia, rectal bleeding, tenesmus, vomiting or weight changes Vital Signs Vital Signs Vital Signs: 02/08/25 14:30 02/08/25 14:30 02/08/25 15:04 Temperature 99 F 99 F Temperature Source Temporal Pulse Rate 87 87 Respiratory Rate 16 16 Respiratory Pattern Normal Blood Pressure 145/50 H 145/50 H Blood Pressure Mean 81 Blood Pressure Source Monitor Blood Pressure Position Semi-Fowlers Blood Pressure Location Left Arm Pulse Ox 98 98 Oxygen Delivery Method Room Air Room Air Weight Weight: 139 lb 8.842 oz Body Mass Index (BMI) 31.3 Physical Exam Const alert, oriented x3, no apparent distress and healthy appearing General Appearance: cooperative GI normal to inspection, nondistended, normoactive bowel sounds, soft to palpation, non-tender and non-distended Percussion: normal to percussion Rectal Exam: deferred Assessment & Plan Assessment/Plan (1) Anemia: PLAN: Assessment & Plan Assessment/Plan (1) Anemia: PLAN: 84-year-old with history of CVA and thyroid mass status post thyroidectomy currently on aspirin and Plavix because history of CAD. She currently has worsening anemia. She will need to undergo upper endoscopy with push enteroscopy. If this study is negative then she will need a colonoscopy plus minus capsule endoscopy.
[2025-02-08] MEDS: Lidocaine 1% (5 ml sdv) 5 ML Vial 10 ML IV (16:01)
--- NOTE | 2025-02-08 16:19 | PCM.POST.ANE ---
Anesthesia: Postop Eval I Current Vital Signs Temperature: 97.3 F Pulse Rate: 84 Blood Pressure: 108/53 Respiratory Rate: 16 Pulse Ox: 95 Assessment Airway patent: Yes Spontaneous unlabored respirations: Yes nausea: No Vomiting: No Anesthesia Complication: No Fluid Hydration Crystalloid volume administer (ml): 400 Total IV fluid infused: 400 Progress Note Anesthesia document: Postop Eval 1 completed: Yes
--- NOTE | 2025-02-08 16:22 | OP.PROVAT_ITS ---
02/08/2025 Divya Hinojosa [address] [place] [address] Re : Upper GI endoscopy procedure for Chelsea Shook Dear Dr. Hinojosa This procedure was performed on Saturday, February 08, 2025. My impressions and recommendations are as follows: Impressions : - Normal esophagus. - Two non-bleeding angiodysplastic lesions in the stomach. Treated with a heater probe. - No gross lesions in the entire examined duodenum. - No specimens collected. 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s : - Discharge patient to home. - Resume previous diet. - Continue present medications. My findings are described in the full procedure note, which is enclosed. If I can be of further assistance, please feel free to contact me at . Sincerely, Brayan Shell, 02/08/2025 4:21:30 PM This report has been signed electronically.
--- NOTE | 2025-02-08 16:22 | OP.EGD_ITS ---
Patient Name: Chelsea Shook Procedure Date: 02/08/2025 3:52 PM Date of : 1940 Age: 84 Procedure: Upper GI endoscopy Indications: Iron deficiency anemia, Unexplained iron deficiency anemia, Occult blood in stool, Suspected upper gastrointestinal bleeding Providers: Brayan Shell DO Medicines: Monitored Anesthesia Care Patient Profile: This is an 84 year old female. Refer to note in patient chart for documentation of history and physical. Refer to note in patient chart for documentation of history and physical. Patient has symptoms. Complications: No immediate complications. Procedure: Pre-Anesthesia Assessment: - Prior to the procedure, a History and Physical was performed, and patient medications and allergies were reviewed. The patient is competent. The risks and benefits of the procedure and the sedation options and risks were discussed with the patient. All questions were answered and informed consent was obtained. Patient identification and proposed procedure were verified by the physician. Mental Status Examination: alert and oriented. Airway Examination: normal oropharyngeal airway and neck mobility. Respiratory Examination: clear to auscultation. CV Examination: normal. Prophylactic Antibiotics: The patient does not require prophylactic antibiotics. Prior Anticoagulants: The patient has taken no anticoagulant or antiplatelet agents except for NSAID medication. ASA Grade Assessment: II - A patient with mild systemic disease. After reviewing the risks and benefits, the patient was deemed in satisfactory condition to undergo the procedure. The anesthesia plan was to use monitored anesthesia care (MAC). Immediately prior to administration of medications, the patient was re-assessed for adequacy to receive sedatives. The heart rate, respiratory rate, oxygen saturations, blood pressure, adequacy of pulmonary ventilation, and response to care were monitored throughout the procedure. The physical status of the patient was re-assessed after the procedure. After obtaining informed consent, the endoscope was passed under direct vision. Throughout the procedure, the patient's blood pressure, pulse, and oxygen saturations were monitored continuously. The Colonoscope was introduced through the mouth, and advanced to the jejunum. Small bowel enteroscopy was deemed necessary. The upper GI endoscopy was accomplished without difficulty. The patient tolerated the procedure fairly well. Scope In: 4:02:25 PM Scope Out: 4:11:05 PM Total Procedure Duration Time 0 hours 8 minutes 40 seconds Findings: The examined esophagus was normal. Two 5 mm angiodysplastic lesions with no bleeding were found in the gastric body. Coagulation for bleeding prevention using heater probe was successful. Estimated blood loss was minimal. No gross lesions were noted in the entire examined duodenum. Impression: - Normal esophagus. - Two non-bleeding angiodysplastic lesions in the stomach. Treated with a heater probe. - No gross lesions in the entire examined duodenum. - No specimens collected. 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: - Discharge patient to home. - Resume previous diet. - Continue present medications. Procedure Code(s): --- Professional --- 33068, Small intestinal endoscopy, enteroscopy beyond second portion of duodenum, not including ileum; with control of bleeding (eg, injection, bipolar cautery, unipolar cautery, laser, heater probe, stapler, plasma teaching assistant) CPT copyright 2021 [employer]. All rights reserved. The codes documented in this report are preliminary and upon reimbursement representative review may be revised to meet current compliance requirements. Brayan Shell DO 02/08/2025 4:21:30 PM This report has been signed electronically. Number of Addenda: 0 Note Initiated On: 02/08/2025 3:52 PM
--- NOTE | 2025-02-08 17:02 | POSTOPAN2_ITS ---
Anesthesia Postop Eval I Sum Postop Eval Completion status Anesthesia document: Postop Eval 1 completed: Yes Anesthesia Postop Eval I Summary Anesthesia Postop Eval I Summary: Anesthesia Postop Eval I: Assessment Summary Airway patent Yes 02/08/25 16:19 LINE SERVICE [email or web address].[email or web address] Spontaneous unlabored Yes 02/08/25 16:19 LINE SERVICE PERSON.TNES respirations Mental status nausea No 02/08/25 16:19 LINE SERVICE PERSON.TNES Vomiting No 02/08/25 16:19 LINE SERVICE PERSON.TNES Anesthesia Postop Eval I: Fluid Summary Crystalloid volume administer 400 02/08/25 16:19 LINE SERVICE PERSON.TNES (ml) Colloids volume administered ( ml) Blood Product volume administered (ml) Total IV fluid infused 400 02/08/25 16:19 LINE SERVICE [email or web address].TNES Anesthesia Postop Eval I: Summary Notes Anesthesia Complication No 02/08/25 16:19 LINE SERVICE PERSON.TNES Anesthesia Complication Comment: Post-operative progress note Anesthesia: Postop Eval II Evaluation Mental status: Awake and Calm Pain Level: 0 nausea: No Vomiting: No Complications Anesthesia Complication: No
--- NOTE | 2025-02-08 17:02 | PCM.POSTANE2 ---
Anesthesia Postop Eval I Sum Postop Eval Completion status Anesthesia document: Postop Eval 1 completed: Yes Anesthesia Postop Eval I Summary Anesthesia Postop Eval I Summary: Anesthesia Postop Eval I: Assessment Summary Airway patent Yes 02/08/25 16:19 MEDICAL OFFICE [email or web address] Spontaneous unlabored Yes 02/08/25 16:19 MEDICAL OFFICE [email or web address] respirations Mental status nausea No 02/08/25 16:19 MEDICAL OFFICE [email or web address] Vomiting No 02/08/25 16:19 MEDICAL OFFICE [email or web address].[email or web address] Anesthesia Postop Eval I: Fluid Summary Crystalloid volume administer 400 02/08/25 16:19 MEDICAL OFFICE SUPERVISOR.TNES (ml) Colloids volume administered ( ml) Blood Product volume administered (ml) Total IV fluid infused 400 02/08/25 16:19 MEDICAL OFFICE [email or web address] Anesthesia Postop Eval I: Summary Notes Anesthesia Complication No 02/08/25 16:19 MEDICAL OFFICE [email or web address] Anesthesia Complication Comment: Post-operative progress note Anesthesia: Postop Eval II Evaluation Mental status: Awake and Calm Pain Level: 0 nausea: No Vomiting: No Complications Anesthesia Complication: No
== END 2025-02-08 17:06 | disposition home or self-care (01) ==
LOC: EN 14:29 → AC 14:30
PROVIDERS: PCP Internal Medicine; Referring Provider Internal Medicine; Visit Provider Internal Medicine Gastroenterology
PROC: 0DJ08ZZ Inspection of Upper Intestinal Tract, Via Natural or Artificial Opening Endoscopic (ICD-10-PCS; CPT 43235; principal; 2025-02-08 15:40)
DX: K31.819 Angiodysplasia of stomach and duodenum without bleeding (principal); E11.9 Type 2 diabetes mellitus without complications; Z79.82 Long term (current) use of aspirin; Z79.84 Long term (current) use of oral hypoglycemic drugs; K21.9 Gastro-esophageal reflux disease without esophagitis; E78.00 Pure hypercholesterolemia, unspecified; Z79.02 Long term (current) use of antithrombotics/antiplatelets; Z79.899 Other long term (current) drug therapy; I10 Essential (primary) hypertension; E89.0 Postprocedural hypothyroidism; I25.10 Atherosclerotic heart disease of native coronary artery without angina pectoris; D50.9 Iron deficiency anemia, unspecified
CPT/HCPCS: 44366; 82962; C1889; A4216